=== PATIENT | female | born 1965 | race African-American/Black ===

== ENCOUNTER 2017-12-20 14:11 | Emergency (ER) | payer OTHER ==
[2017-12-20 14:18] VITALS: BP 126/84; PULSE 100; TEMP 98.2; BMI 34.7
--- NOTE | 2017-12-20 14:41 | PDOC ---
History of Present Illness - General Chief Complaint: Injury Stated Complaint: Injury - History of Present Illness Initial Comments: 52-year-old female with a past medical history significant for diabetes hypertension dyslipidemia and asthma presents for evaluation of atraumatic foot pain times one day. She denies any other associated symptoms. Her pain is exacerbated with weightbearing relieved with rest. She is unsure what happened. 12/20/17 14:40 Past History - Past Medical History Allergies/Adverse Reactions: Allergies Allergy/AdvReac Type Severity Reaction Status Date / Time amoxicillin trihydrate Allergy Intermediate Swelling Verified 12/20/17 14:18 [From Augmentin] potassium clavulanate Allergy Intermediate Swelling Verified 12/20/17 14:18 [From Augmentin] Home Medications: Ambulatory Orders Simvastatin [Zocor -] 20 mg PO HS 01/29/14 Cholecalciferol (Vitamin D3) [Vitamin D3] 2,000 unit PO DAILY 06/17/14 Salmeterol/Fluticasone [Advair 100Mcg/50Mcg -] 1 inh PO BID 06/17/14 Furosemide [Lasix -] 20 mg PO DAILY 08/08/14 Carvedilol [Coreg -] 6.25 mg PO BID 08/16/14 Insulin Glargine,Hum.rec.anlog [Lantus Solostar PEN (NF)] 25 units SQ HS Quetiapine Fumarate [Seroquel] 100 tab PO BID 05/25/17 Doxycycline Hyclate [Vibramycin -] 100 mg PO BID #14 cap 11/30/17 Sodium Chloride Nasal [place] [[place] Nasal [place]] 2 spray NS BID #100 spraybtl 11/30/17 Asthma: Yes Cancer: No Cardiac Disorders: Yes (reduced ejection fraction of 23%) CVA: No COPD: No CHF: Yes (with pulmonary HTN) Diabetes: Yes Disorders: No HTN: Yes Hypercholesterolemia: Yes Liver Disease: No Seizures: No Thyroid Disease: No - Surgical History Cardiac Surgery: No Cholecystectomy: Yes Neurologic Surgery: No Orthopedic Surgery: Yes (left total knee replacement 1996) - Family Disease History Family Disease History: Diabetes: Mother - Immunization History Immunization Up to Date: Yes - Suicide/Smoking/Psychosocial Hx Smoking Status: No Smoking History: Never smoked Have you smoked in the past 12 months: No Number of Cigarettes Smoked Daily: 5 Information on smoking cessation initiated: No 'Breaking Loose' booklet given: 12/23/13 Hx Alcohol Use: No Drug/Substance Use Hx: No Substance Use Type: Alcohol, Cocaine, Marijuana Hx Substance Use Treatment: Yes (detox, [facility]) Review of Systems - Review of Systems Musculoskeletal: Yes: See HPI, Joint Pain All Other Systems: Reviewed and Negative *Physical Exam - Vital Signs Last Vital Signs Temp Pulse Resp BP Pulse Ox 98.2 F 100 H 16 126/84 100 12/20/17 14:16 12/20/17 14:16 12/20/17 14:16 12/20/17 14:16 12/20/17 14:16 - Physical Exam Comments: Left foot skin color and temperature are normal she has decreased ankle range of motion. No tenderness about the proximal fibula calf or thigh all soft and nontender. No tenderness along the fibulas distal course. Nonpainful ankle range of motion. No tenderness about the medial lateral malleolus navicular or fifth metatarsal. She has mild swelling and exquisite tenderness about the area of the plantar fascia. She is neurovascularly intact without any gross sensorimotor deficits. 12/20/17 14:40 ED Treatment Course - RADIOLOGY Radiology Studies Ordered: Category Date Time Status FOOT-LEFT [RAD] Stat Radiology 12/20/17 14:34 Ordered Medical Decision Making - Medical Decision Making I suspect the plantar fascia rupture, hard sole shoe follow-up with orthopedic surgery. Weight-bear as tolerated with use of crutches. X-ray was normal today 12/20/17 14:41 *DC/Admit/Observation/Transfer Diagnosis at time of Disposition: Plantar fascia rupture - Discharge Dispostion Disposition: HOME Condition at time of disposition: Stable Decision to Admit order: No - Referrals Referrals: Arian Mcneill MD [Staff Physician] - - Patient Instructions Additional Instructions: Follow-up with orthopedic surgery in 2-3 days for further evaluation and treatment options. Return to the emergency room should symptoms worsen or go unresolved. May take Tylenol for pain. He may weight-bear as tolerated with a hard soled shoe and crutches. - Post Discharge Activity
== END 2017-12-20 15:17 | disposition home or self-care (01) ==
LOC: JERFT 14:11
DX: S86.011D Strain of right Achilles tendon, subsequent encounter (principal); I10 Essential (primary) hypertension; I50.9 Heart failure, unspecified; E11.9 Type 2 diabetes mellitus without complications; Z79.4 Long term (current) use of insulin; E78.00 Pure hypercholesterolemia, unspecified; Z87.09 Personal history of other diseases of the respiratory system
CPT/HCPCS: 73630-TC-LT; 99281-25

== ENCOUNTER 2018-01-01 15:15 | Emergency (ER) | payer OTHER ==
[2018-01-01 15:24] VITALS: BP 156/111; PULSE 88; TEMP 98.6; BMI 33.4
--- NOTE | 2018-01-01 16:17 | PDOC ---
History of Present Illness - General Chief Complaint: Injury Stated Complaint: INJURY Time Seen by Provider: 01/01/18 15:39 History Source: Patient Exam Limitations: No Limitations - History of Present Illness Initial Comments: 01/01/18 16:12 52 yr female with right ankle injury yesterday fell into a hole x3 . Pt injured ankle has swelling and pain. Occurred: reports: yesterday Severity: Yes: moderate Lower Extremity Pain Location: right: ankle Past History - Past Medical History Allergies/Adverse Reactions: Allergies Allergy/AdvReac Type Severity Reaction Status Date / Time amoxicillin trihydrate Allergy Intermediate Swelling Verified 01/01/18 15:24 [From Augmentin] potassium clavulanate Allergy Intermediate Swelling Verified 01/01/18 15:24 [From Augmentin] Home Medications: Ambulatory Orders Simvastatin [Zocor -] 20 mg PO HS 01/29/14 Cholecalciferol (Vitamin D3) [Vitamin D3] 2,000 unit PO DAILY 06/17/14 Salmeterol/Fluticasone [Advair 100Mcg/50Mcg -] 1 inh PO BID 06/17/14 Furosemide [Lasix -] 20 mg PO DAILY 08/08/14 Carvedilol [Coreg -] 6.25 mg PO BID 08/16/14 Insulin Glargine,Hum.rec.anlog [Lantus Solostar PEN (NF)] 25 units SQ HS Quetiapine Fumarate [Seroquel] 100 tab PO BID 05/25/17 Doxycycline Hyclate [Vibramycin -] 100 mg PO BID #14 cap 11/30/17 Sodium Chloride Nasal [place] [[place]] 2 spray NS BID #100 spraybtl 11/30/17 Oxycodone HCl/Acetaminophen [Percocet 5-325 mg Tablet] 1 - 2 tab PO Q6H PRN #12 tab MDD 8 01/01/18 Asthma: Yes Cancer: No Cardiac Disorders: Yes (reduced ejection fraction of 23%) CVA: No COPD: No CHF: Yes (with pulmonary HTN) Diabetes: Yes Disorders: No HTN: Yes Hypercholesterolemia: Yes Liver Disease: No Seizures: No Thyroid Disease: No Other medical history: neuropathy - Surgical History Cardiac Surgery: No Cholecystectomy: Yes Neurologic Surgery: No Orthopedic Surgery: Yes (left total knee replacement 1996) - Family Disease History Family Disease History: Diabetes: Mother - Immunization History Immunization Up to Date: Yes - Suicide/Smoking/Psychosocial Hx Smoking Status: No Smoking History: Current every day smoker Have you smoked in the past 12 months: No Number of Cigarettes Smoked Daily: 10 Information on smoking cessation initiated: No 'Breaking Loose' booklet given: 04/09/13 Hx Alcohol Use: No Drug/Substance Use Hx: No Substance Use Type: Alcohol, Cocaine, Marijuana Hx Substance Use Treatment: Yes (detox, [facility]) Review of Systems - Review of Systems Able to Perform ROS?: Yes Is the patient limited [place] proficient: No Constitutional: No: Symptoms Reported Musculoskeletal: Yes: Symptoms Reported *Physical Exam - Vital Signs Last Vital Signs Temp Pulse Resp BP Pulse Ox 98.6 F 88 18 156/111 99 01/01/18 15:21 01/01/18 15:21 01/01/18 15:21 01/01/18 15:21 01/01/18 15:21 - Physical Exam General Appearance: Yes: Nourished, Appropriately Dressed HEENT: positive: EOMI, FLACO Extremity: positive: Normal Capillary Refill, Tender, Swelling, Erythema ( ttp right lateral maleouls to lateral foot ) Integumentary: positive: Normal Color, Dry, Warm Neurologic: positive: non acoustic operator II-XII NML intact, Fully Oriented, Alert, Normal Mood/ Affect, Normal Response, Motor Strength 08/20 ED Treatment Course - RADIOLOGY Radiology Studies Ordered: Category Date Time Status ANKLE & FOOT-RIGHT* [RAD] Stat Radiology 01/01/18 15:39 Taken Medical Decision Making - Medical Decision Making 01/01/18 16:14 cc: right foot andkle pain after twisting it yesterday stepping into a hole xray is negative soft tissue swelling noted air cast placed *DC/Admit/Observation/Transfer Diagnosis at time of Disposition: High ankle sprain Qualifiers: Encounter type: initial encounter Laterality: right Qualified Code(s): S93.431A - Sprain of tibiofibular ligament of right ankle, initial encounter - Discharge Dispostion Disposition: HOME Condition at time of disposition: Good - Prescriptions Prescriptions: Oxycodone HCl/Acetaminophen [Percocet 5-325 mg Tablet] 1 - 2 tab PO Q6H PRN #12 tab MDD 8 PRN Reason: Pain Level 7 - 10 - Referrals Referrals: Alfonso Burks MD [Staff Physician] - Edelson,Shaun W, MD [Staff Physician] - - Patient Instructions - Post Discharge Activity
== END 2018-01-01 16:32 | disposition home or self-care (01) ==
LOC: JERFT 15:15
DX: S93.431A Sprain of tibiofibular ligament of right ankle, initial encounter (principal); X58.XXXA Exposure to other specified factors, initial encounter; Y93.89 Activity, other specified; Y92.9 Unspecified place or not applicable; F17.210 Nicotine dependence, cigarettes, uncomplicated; J45.909 Unspecified asthma, uncomplicated; E11.9 Type 2 diabetes mellitus without complications; E78.00 Pure hypercholesterolemia, unspecified; I50.9 Heart failure, unspecified
CPT/HCPCS: 73610-TC-RT-FY; 73630-TC-RT-FY; 99281-25

== ENCOUNTER 2018-01-05 16:55 | Emergency (ER) | payer OTHER ==
--- NOTE | 2018-01-05 17:14 | PDOC ---
Rapid Medical Evaluation Time Seen by Provider: 01/05/18 17:12 Medical Evaluation: Allergies Allergy/AdvReac Type Severity Reaction Status Date / Time amoxicillin trihydrate Allergy Intermediate Swelling Verified 01/01/18 15:24 [From Augmentin] potassium clavulanate Allergy Intermediate Swelling Verified 01/01/18 15:24 [From Augmentin] 01/05/18 17:12 I have performed a brief in-person evaluation of this patient. The patient presents with a chief complaint of: frequent falls. Requesting pain medication for right foot injury treated in hospital Tuesday. Pertinent physical exam findings are NAD in wheelchair right foot with swelling, cap refill wnl I have ordered the following: The patient will proceed to Ed for further evaluation Discharge Disposition - Referrals Referrals: Fili Espinoza MD [Primary Care Provider] - - Patient Instructions - Post Discharge Activity
[2018-01-05 17:19] VITALS: BP 109/73; PULSE 100; TEMP 98.8; BMI 33.4
--- NOTE | 2018-01-05 19:14 | PDOC ---
History of Present Illness - General Chief Complaint: Pain, Acute Stated Complaint: Edema Time Seen by Provider: 01/05/18 17:12 - History of Present Illness Initial Comments: 01/05/18 20:10 The patient is a 52 year old female with a history of DM, HTN, HLD, CHF who presents for evaluation of right foot and ankle pain. The patient reports that 4 days ago she twisted her right foot and experienced a fall prompting her to present to the ED at that time. She underwent X-ray imaging that demonstrated a possible old 1st metatarsal fracture, but no acute fracture and the patient was discharged with primary care and ortho follow up. The patient reports continued pain since that time had was evaluated by her podietrist and primary care provider who sent her back to the ED for further evaluation given her worsening symptoms. The patient reports worsening pain with ambulation as well but otherwise denies fevers, chills, SOB, chest pain, nausea, vomiting, abdominal pain, or changes with urination or bowel movements. Past History - Past Medical History Allergies/Adverse Reactions: Allergies Allergy/AdvReac Type Severity Reaction Status Date / Time amoxicillin trihydrate Allergy Intermediate Swelling Verified 01/05/18 17:13 [From Augmentin] potassium clavulanate Allergy Intermediate Swelling Verified 01/05/18 17:13 [From Augmentin] Home Medications: Ambulatory Orders Simvastatin [Zocor -] 20 mg PO HS 01/29/14 Cholecalciferol (Vitamin D3) [Vitamin D3] 2,000 unit PO DAILY 06/17/14 Salmeterol/Fluticasone [Advair 100Mcg/50Mcg -] 1 inh PO BID 06/17/14 Furosemide [Lasix -] 20 mg PO DAILY 08/08/14 Carvedilol [Coreg -] 6.25 mg PO BID 08/16/14 Insulin Glargine,Hum.rec.anlog [Lantus Solostar PEN (NF)] 25 units SQ HS Quetiapine Fumarate [Seroquel] 100 tab PO BID 05/25/17 Sodium Chloride Nasal [place] [[place] Nasal [place]] 2 spray NS BID #100 spraybtl 11/30/17 Oxycodone HCl/Acetaminophen [Percocet 5-325 mg Tablet] 1 - 2 tab PO Q6H PRN #12 tab MDD 8 01/01/18 Asthma: Yes Cancer: No Cardiac Disorders: Yes (reduced ejection fraction of 23%) CVA: No COPD: No CHF: Yes (with pulmonary HTN) Diabetes: Yes Disorders: No HTN: Yes Hypercholesterolemia: Yes Liver Disease: No Seizures: No Thyroid Disease: No - Surgical History Cardiac Surgery: No Cholecystectomy: Yes Neurologic Surgery: No Orthopedic Surgery: Yes (left total knee replacement 1996) - Family Disease History Family Disease History: Diabetes: Mother - Immunization History Immunization Up to Date: Yes - Suicide/Smoking/Psychosocial Hx Smoking Status: No Smoking History: Current every day smoker Have you smoked in the past 12 months: No Number of Cigarettes Smoked Daily: 10 Information on smoking cessation initiated: No 'Breaking Loose' booklet given: 04/09/13 Hx Alcohol Use: No Drug/Substance Use Hx: No Substance Use Type: Alcohol, Cocaine, Marijuana Hx Substance Use Treatment: Yes (detox, [facility]) Review of Systems - Review of Systems Comments:: 01/05/18 20:46 Constitutional: No fevers, chills, fatigue, malaise HEENT: No Rhinorrhea, nasal congestion, visual changes Cardiovascular: No chest pain, syncope, palpitations, lightheadedness Respiratory: No Cough, SOB, Hemoptysis, Gastrointestinal: No Abdominal pain, Nausea, Vomiting, Constipation, Diarrhea, Melena Genitourinary: No Dysuria, Frequency, Urgency, Hesitancy, Hematuria, Flank pain Musculoskeletal: Right foot and ankle pain and swelling. No Myalgia, arthralgia Skin: No rashes, itching, bruising, pallor Neurologic: No Headache, Dizziness, Numbness, Weakness, or Tingling Psychiatric: No Hallucinations. No SI or HI *Physical Exam - Vital Signs Last Vital Signs Temp Pulse Resp BP Pulse Ox 98.8 F 100 H 20 109/73 99 01/05/18 17:17 01/05/18 17:17 01/05/18 17:17 01/05/18 17:17 01/05/18 17:17 - Physical Exam Comments: 01/05/18 20:46 General Appearance: Nourished. No Apparent Distress HEENT: No Pharyngeal Erythema, Tonsillar Exudate, Tonsillar Erythema Neck: No Cervical Lymphadenopathy Respiratory/Chest: Lungs Clear, Normal Breath Sounds. No Crackles, Rales, Rhonchi, Wheezing Cardiovascular: Regular Rhythm, Regular Rate. No Murmur, Gallops, Rubs Gastrointestinal/Abdominal: Normal Bowel Sounds, Soft. No Guarding, Rebound, Tenderness Musculoskeletal: No CVA Tenderness Extremity: Significant Edema and swelling to the dorsum of the foot and lateral aspect of the ankle with tenderness to palpation and notable warmth. Palpable posterior tibial pulse noted. Normal Capillary Refill Integumentary: Normal Color, Dry, Warm Neurologic: Fully Oriented, Alert, Normal Mood/Affect, Normal Response, ED Treatment Course - LABORATORY CBC & Chemistry Diagram: 01/05/18 20:00 01/05/18 20:00 Medical Decision Making - Medical Decision Making 01/05/18 20:51 The patient is a 52 year old female with a history of DM, HTN, HLD, CHF who presents for evaluation of right foot and ankle pain. Differential includes but is not limited to: Lis-franc Fracture, Occult Fracture, ligamentous injury, Infectious, Metabolic Derangement. Given the patient's history and physical exam, we will obtain a cbc, cmp, coags, and lower extremity CT to evaluate further. We will treat the patient's pain with toradol and continue to monitor and reassess while here in the ED. 01/05/18 21:59 CBC, coags are unremarkable. CMP demonstrates an elevated glucose to 400s. We will treat with 10 units of insulin. The patient wishes to leave AMA prior to the completion of her work up. We discussed the risks of leaving AMA including but not limited to worsening pain, permanent disability, and the patient continued to wish to leave AMA. We discussed the benefits of further work up and possible admission and the patient continued to wish to leave AMA. The patient stated that she would return to the ED tomorrow to be re-evaluated. The patient signed the AMA form. *DC/Admit/Observation/Transfer Diagnosis at time of Disposition: Foot pain, right - Discharge Dispostion Disposition: AGAINST MEDICAL ADVICE Condition at time of disposition: Stable - Referrals Referrals: Fili Espinoza MD [Primary Care Provider] - Alfonso Burks MD [Staff Physician] - - Patient Instructions Printed Discharge Instructions: DI for Foot Pain Additional Instructions: Please return to the ER if you experience concerning or worsening symptoms including worsening fevers, chills or pain. Your lab results were normal here in the ER although your blood sugar was very elevated. Please call to schedule a follow up appointment with your primary care provider and our orthopedic surgeon within 1-2 days to discuss your ER visit and further management of your symptoms. - Post Discharge Activity
--- NOTE | 2018-01-05 20:16 | PDOC ---
Attending Attestation - Resident Resident Name: Fili Wong - ED Attending Attestation I have performed the following: I have examined & evaluated the patient, The case was reviewed & discussed with the resident, I agree w/resident's findings & plan, Exceptions are as noted - HPI HPI: 01/05/18 20:16 The patient is a 52 year old female with a significant past medical history of HTN, HLD, CHF, and DM who presents to the ER with worsening pain from a right ankle injury she sustained on 12/31/17. Patient had twisted her right foot and fell on 12/31 and was seen the following day at this ER. Patient had a foot xray at that time which showed an old first metatarsal fracture. Patient has followed up with a senior technical writer at [facility], who told her the ligaments were messed up, but no further imaging was done. Patient was sent in by her PCP to the ER due to the worsening pain to the right ankle. Patient is taking the percocets that were prescribed to her with minimal relief. Patient reports difficulty walking and bearing weight on the right foot secondary to right ankle pain. Pt states her AIC was last 10. The patient denies numbness/tingling/or weakness to her extremities. Allergies: NKA Past surgical history: None reported. Social history: No reported alcohol, drug, or cigarette use. - Physicial Exam PE: 01/05/18 20:04 GENERAL: Awake, alert, and fully oriented, in no acute distress HEAD: No signs of trauma EYES: PERRLA, EOMI, sclera anicteric, conjunctiva clear ENT: Moist mucosa LUNGS: Breath sounds equal, clear to auscultation bilaterally. No wheezes, and no crackles HEART: Regular rate and rhythm, normal S1 and S2, no murmurs, rubs or gallops ABDOMEN: Soft, nontender, normoactive bowel sounds. No guarding, no rebound. No masses EXTREMITIES: R ankle with edema over the lateral malleolus and dorsum of the foot. +ttp over the lateral malleolus. Foot slightly deformed in inversion. DP pulse. Foot is WWP. Normal range of motion, no edema. No clubbing or cyanosis. No cords, erythema, or tenderness NEUROLOGICAL: Normal speech, cranial nerves intact, 5/5 strength in all 4 extremities, normal sensation to light touch in all 4 extremities SKIN: Erythema to the R lateral malleolus. Otherwise, warm, Dry, normal turgor, no rashes or lesions noted. - Medical Decision Making 01/05/18 20:18 52yo F with MMP including DM presents to the ED with worsening R ankle pain after injury on 12/31. Vitals wnl. Exam with edema and deformity of ankle. HbA1C of 10 concerning for possible charcot foot. Pt likely has significant ligamentous damage. Will obtain CT of the foot/ankle for further eval, control pain, check labs and reassess. Pt wanted to leave as she has to take her son to school in the AM, but we discussed the importance of a CT for further evaluation and she agrees to stay for now. 01/06/18 00:54 Patient requesting discharge prior to CT scan read. States she has to take her son to school in the morning and cannot stay minute longer. The patient is clinically sober, free from distracting injury, appears to have intact insight and judgment and reason and in my opinion has the capacity to make decisions. The patient presents with worsening foot pain. I have explained that I am concerned that this may represent an unstable foot fracture or a foot infection; she has verbalized an understanding of my concerns. I have told the patient that if she leaves and has and unstable foot fracture or infection, she could get much worse, could become critically ill, and could possibly become disabled or . I have offered to give the patient more pain medication. I have asked them to stay in the hospital for ortho consultation. I have discussed these concerns with the patients daughter who is at the bedside and she is unable to convince her to stay for further evaluation. She is unwilling to stay overnight for monitoring. She is refusing any further care and is leaving against medical advice. I am unable to convince the patient to stay, I have asked her to return as soon as possible to complete their evaluation. I have answered all their questions.
[2018-01-05] MEDS ORDERED: traMADol HCL 50 MG TABLET PO ONE (20:18)
[2018-01-05] MEDS ORDERED: traMADol HCL 50 MG TABLET ONE (20:23)
[2018-01-05 20:24] LABS: BASO % 1.4 % (0-2.0); EOS % 2.3 % (0-4.5); HEMATOCRIT 41.3 % (32.4-45.2); HEMOGLOBIN 13.6 GM/dL (10.7-15.3); LYMPH % 16.6 % (8-40); MCH 30.5 pg (25.7-33.7); MCHC 32.8 g/dl (32.0-36.0); MEAN CELL VOLUME 92.8 fl (80-96); MEAN PLT VOLUME 10.3 fl (7.5-11.1); MONO % 8.2 % (3.8-10.2); NEUT % 71.5 % (42.8-82.8); PLATELET COUNT 207 K/MM3 (134-434); RBC 4.45 M/mm3 (3.60-5.2); RDW 13.4 % (11.6-15.6); WHITE BLOOD COUNT 7.9 K/mm3 (4.0-10.0)
[2018-01-05] MEDS ORDERED: KETOROLAC TROMETHAMINE 15 MG/ML VIAL IVPUSH ONE (20:24)
[2018-01-05 20:39] LABS: INR 0.88 (0.83-1.09); PROTHROMBIN TIME (PATIENT) 9.9 SEC (9.7-13.0)
[2018-01-05 20:41] LABS: ACTIVATED PTT 38.2 SECONDS (25.2-36.5)
[2018-01-05] MEDS ORDERED: KETOROLAC TROMETHAMINE 15 MG/ML VIAL ONE (20:48)
[2018-01-05 21:16] LABS: ALBUMIN 3.7 g/dl (3.4-5.0); ALK PHOS 105 U/L (45-117); ANION GAP 9 MMOL/L (8-16); BILIRUBIN,TOTAL 0.6 mg/dL (0.2-1); BLOOD UREA NITROGEN 19 mg/dL (7-18); CALCIUM 10.5 mg/dL (8.5-10.1); CHLORIDE 99 mmol/L (98-107); CO2 26 mmol/L (21-32); CREATININE 1.1 mg/dL (0.55-1.3); POTASSIUM 4.7 mmol/L (3.5-5.1); SGOT/AST 20 U/L (15-37); SGPT/ALT 25 U/L (13-61); SODIUM 134 mmol/L (136-145); TOT PROT 7.4 g/dl (6.4-8.2)
[2018-01-05 21:20] LABS: GLUCOSE,RANDOM 497 mg/dL (74-106)
[2018-01-05] MEDS ORDERED: INSULIN REGULAR HUMAN 100 UNITS/ML *VIAL SQ ONE (21:51)
[2018-01-05] MEDS ORDERED: INSULIN (NOVOLOG) ASPART 100 UNITS/ML 10ML VIAL ONE (21:57)
== END 2018-01-05 23:00 | disposition left against medical advice (07) ==
LOC: JER 16:55
PROC: 3E013VG Introduction of Insulin into Subcutaneous Tissue, Percutaneous Approach (ICD-10-PCS; principal; 2018-01-05)
DX: M25.571 Pain in right ankle and joints of right foot (principal); M79.671 Pain in right foot; I11.0 Hypertensive heart disease with heart failure; I50.9 Heart failure, unspecified; F17.210 Nicotine dependence, cigarettes, uncomplicated; I27.20 Pulmonary hypertension, unspecified; E11.9 Type 2 diabetes mellitus without complications; Z79.4 Long term (current) use of insulin; E78.5 Hyperlipidemia, unspecified; Z88.1 Allergy status to other antibiotic agents; Z96.652 Presence of left artificial knee joint
CPT/HCPCS: 36415; 73700-TC-RT; 80053; 85025; 85610; 85730; 99282-25

== ENCOUNTER 2018-01-07 16:48 | Emergency (ER) | payer OTHER ==
[2018-01-07 17:28] VITALS: BMI 30.5
--- NOTE | 2018-01-07 19:17 | PDOC ---
History of Present Illness - General Chief Complaint: Wound Stated Complaint: RT FOOT PAIN Time Seen by Provider: 01/07/18 18:12 History Source: Patient Exam Limitations: No Limitations - History of Present Illness Initial Comments: 01/07/18 18:59 Ms. Orr is a 52 yo F with a hx of HTN, HLD, CHF, IDDM, and asthma who presents to the emergency department with right ankle pain. She was seen 2 days ago for her right ankle pain and left AMA before the CT was read due to taking her son to school. She states that her pain in the right ankle has increased as well as the swelling. She uses a walker and per the patient is now dragging her foot. Per the patient, she is followed by Dr. May of [facility] who advised her to be admitted. Currently, the patient endorses feeling hot, but denies the following: chills, recent visual changes, nausea, vomiting, chest pain, SOB, abdominal pain, dysuria, hematuria, leg swelling and pain. Past History - Past Medical History Allergies/Adverse Reactions: Allergies Allergy/AdvReac Type Severity Reaction Status Date / Time amoxicillin trihydrate Allergy Intermediate Swelling Verified 01/07/18 17:17 [From Augmentin] potassium clavulanate Allergy Intermediate Swelling Verified 01/07/18 17:17 [From Augmentin] Home Medications: Ambulatory Orders Simvastatin [Zocor -] 20 mg PO HS 01/29/14 Salmeterol/Fluticasone [Advair 100Mcg/50Mcg -] 1 inh PO BID 06/17/14 Furosemide [Lasix -] 20 mg PO BID 08/08/14 Insulin Glargine,Hum.rec.anlog [Lantus Solostar PEN (NF)] 25 units SQ HS Sodium Chloride Nasal [place] [[place] Nasal [place]] 2 spray NS BID #100 spraybtl 11/30/17 Albuterol 0.083% Nebulizer Gabriella [Ventolin 0.083%] 1 neb NEB Q4H 01/07/18 Amlodipine Bes/Olmesartan Med [Kendra 10-40 mg Tablet] 1 each PO DAILY 01/07/18 Amlodipine Besylate/Benazepril [Lotrel 5-40 mg Capsule] 1 each PO DAILY Ammonium Lactate Cream [Lac-Hydrin 12% *Cream*] 1 applic TP BID 01/07/18 Aspirin [Ecotrin] 81 mg PO DAILY 01/07/18 Clindamycin [Cleocin -] 450 mg PO TID #21 capsule 01/07/18 Gabapentin 300 mg PO TID 01/07/18 Hydrochlorothiazide 50 mg PO DAILY 01/07/18 Ibuprofen [Motrin -] 600 mg PO QID PRN #24 tablet 01/07/18 Insulin Aspart [Novolog] 0 unit SQ BID 01/07/18 Labetalol HCl 100 mg PO BID 01/07/18 Leg Brace [Ankle Brace] 1 each MC ONCE #1 each 01/07/18 Loratadine [Claritin] 10 mg PO DAILY 01/07/18 Asthma: Yes Cancer: No Cardiac Disorders: Yes (reduced ejection fraction of 23%) CVA: No COPD: No CHF: Yes (with pulmonary HTN) Diabetes: Yes Disorders: No HTN: Yes Hypercholesterolemia: Yes Liver Disease: No Seizures: No Thyroid Disease: No - Surgical History Cardiac Surgery: No Cholecystectomy: Yes Neurologic Surgery: No Orthopedic Surgery: Yes (left total knee replacement 1996) - Family Disease History Family Disease History: Diabetes: Mother - Immunization History Immunization Up to Date: Yes - Suicide/Smoking/Psychosocial Hx Smoking Status: No Smoking History: Current some day smoker Have you smoked in the past 12 months: No Number of Cigarettes Smoked Daily: 10 Information on smoking cessation initiated: No 'Breaking Loose' booklet given: 04/09/13 Hx Alcohol Use: No Drug/Substance Use Hx: No Substance Use Type: Alcohol, Cocaine, Marijuana Hx Substance Use Treatment: Yes (detox, [facility]) Review of Systems - Review of Systems Able to Perform ROS?: Yes Is the patient limited Divehi proficient: No Constitutional: Yes: Fever. No: Chills, Diaphoresis, Unintentional Wgt. Loss HEENTM: No: Eye Pain, Recent change in vision, Ear Pain, Nose Pain, Throat Pain , Mouth Pain Respiratory: No: Cough, Shortness of Breath, SOB at Rest Cardiac (ROS): No: Chest Pain, Edema, Lightheadedness, Palpitations, Chest Tightness ABD/GI: No: Constipated, Diarrhea, Nausea, Poor Fluid Intake, Rectal Bleeding, Vomiting, Tarry Stools : No: Burning, Dysuria, Flank Pain, Hematuria Musculoskeletal: Yes: Joint Pain (right ankle), Joint Swelling (ankle right). No: Back Pain, Neck Pain Integumentary: No: Rash Neurological: No: Headache, Numbness, Seizure, Tingling, Weakness, Unsteady Gait , Dizziness Psychiatric: No: Stressors Endocrine: No: Unexplained Weight Loss Hematologic/Lymphatic: No: Anemia *Physical Exam - Vital Signs Last Vital Signs Temp Pulse Resp BP Pulse Ox 99.1 F 94 H 20 122/83 99 01/07/18 17:17 01/07/18 17:17 01/07/18 17:17 01/07/18 17:17 01/07/18 17:17 - Physical Exam General Appearance: Yes: Nourished, Appropriately Dressed HEENT: positive: EOMI, FLACO, Normal Voice, Symmetrical Neck: positive: Trachea midline. negative: Lymphadenopathy (R), Lymphadenopathy (L) Respiratory/Chest: positive: Lungs Clear, Normal Breath Sounds. negative: Chest Tender, Respiratory Distress, Accessory Muscle Use Cardiovascular: positive: Regular Rhythm, Regular Rate, S1, S2. negative: Systolic Murmur Gastrointestinal/Abdominal: positive: Normal Bowel Sounds. negative: Tender Lymphatic: negative: Adenopathy Musculoskeletal: positive: Normal Inspection. negative: CVA Tenderness Extremity: positive: Normal Capillary Refill, Tender (right ankle), Pedal Edema , Swelling (right ankle), Erythema, Other (right ankle is swollen. right limited ROM of dorsiflexion and plantar flexion due to pain. right erythema present and warm to the touch. dorsalis pedis pulse present bilaterally. point of maximal swelling on right ankle on the lateral malleolus. no red streaks on the right ankle. intact sensations bilaterally.). negative: Cyanosis, Delayed Capillary Refill, Calf Tenderness Integumentary: positive: Normal Color, Dry, Warm Neurologic: positive: orthopaedic physician assistant II-XII NML intact, Fully Oriented, Alert, Normal Mood/ Affect, Normal Response, Motor Strength 5/5 ED Treatment Course - LABORATORY CBC & Chemistry Diagram: 01/07/18 18:50 01/07/18 18:50 Medical Decision Making - Medical Decision Making 01/07/18 23:54 Ms. Orr is a 52 yo F with a hx of HTN, HLD, CHF, IDDM, and asthma who presents to the emergency department with right ankle pain. ddx: cellulitis, septic arthritis, ankle fracture, ankle ligament tear (sprain). Initial vitals: Initial Vital Signs Temp Pulse Resp BP Pulse Ox 99.1 F 94 H 20 122/83 99 01/07/18 17:17 01/07/18 17:17 01/07/18 17:17 01/07/18 17:17 01/07/18 17:17 Work up: Laboratory Tests 01/07/18 01/07/18 01/07/18 18:50 18:50 18:50 WBC 5.7 RBC 4.56 Hgb 13.8 Hct 41.7 MCV 91.5 MCH 30.3 MCHC 33.1 RDW 13.3 Plt Count 263 D MPV 10.3 Absolute Neuts (auto) 3.4 Neutrophils % 60.4 Lymphocytes % 24.8 D Monocytes % 11.6 H Eosinophils % 2.8 Basophils % 0.4 Nucleated RBC % 0 ESR PT with INR 9.70 INR 0.86 PTT (Actin FS) 35.5 Sodium 137 Potassium 5.0 Chloride 103 Carbon Dioxide 27 Anion Gap 7 L BUN 18 Creatinine 0.8 Creat Clearance w eGFR > 60 Random Glucose 325 H* Lactic Acid Calcium 9.8 Total Bilirubin 0.4 AST 18 ALT 26 Alkaline Phosphatase 98 C-Reactive Protein Total Protein 7.7 Albumin 3.5 Anti-A Titer Blood Type Antibody Screen 01/07/18 01/07/18 01/07/18 18:50 18:50 18:50 WBC RBC Hgb Hct MCV MCH MCHC RDW Plt Count MPV Absolute Neuts (auto) Neutrophils % Lymphocytes % Monocytes % Eosinophils % Basophils % Nucleated RBC % ESR 54 H PT with INR INR PTT (Actin FS) Sodium Potassium Chloride Carbon Dioxide Anion Gap BUN Creatinine Creat Clearance w eGFR Random Glucose Lactic Acid 1.7 Calcium Total Bilirubin AST ALT Alkaline Phosphatase C-Reactive Protein Total Protein Albumin Anti-A Titer Cancelled Blood Type Cancelled Antibody Screen Cancelled 01/07/18 19:30 WBC RBC Hgb Hct MCV MCH MCHC RDW Plt Count MPV Absolute Neuts (auto) Neutrophils % Lymphocytes % Monocytes % Eosinophils % Basophils % Nucleated RBC % ESR PT with INR INR PTT (Actin FS) Sodium Potassium Chloride Carbon Dioxide Anion Gap BUN Creatinine Creat Clearance w eGFR Random Glucose Lactic Acid Calcium Total Bilirubin AST ALT Alkaline Phosphatase C-Reactive Protein 4.0 H Total Protein Albumin Anti-A Titer Blood Type Antibody Screen She initially presented 9/20 with right foot and ankle swelling however left AMA before the CT was read. Her CT was negative for fractures in the right ankle region. She is followed by Dr. May at [facility] and her PMD is Dr. Espinoza. Dr. Espinoza was concerned after seeing her this past tuesday that she may need IV abx and advised her to return to the ED. She was not on oral abx at her presentation. Based on her labs (lack of WBC) and clinical exam (afebrile), likely cellulitis vs septic arthritis. However, she was given return precautions to return to the emergency department in the event her symptoms worsen. Some concern with an elevated CRP and ESR. She agreed to the plan of the outpatient abx (clindamycin due to her allergy to amoxicillin) and to follow up with Dr. Espinoza on Tuesday. She was given a referral for orthopedics as well. At the time of discharge, she was able to ambulate with her walker. Her ankle was wrapped in an real bandage. Dispo: DC to home 01/07/18 23:59 *DC/Admit/Observation/Transfer Diagnosis at time of Disposition: Cellulitis Qualifiers: Site of cellulitis: unspecified site Qualified Code(s): L03.90 - Cellulitis, unspecified Ankle pain, right Qualifiers: Chronicity: unspecified Qualified Code(s): M25.571 - Pain in right ankle and joints of right foot - Discharge Dispostion Disposition: HOME Decision to Admit order: No - Prescriptions Prescriptions: Clindamycin [Cleocin -] 450 mg PO TID #21 capsule Ibuprofen [Motrin -] 600 mg PO QID PRN #24 tablet PRN Reason: Pain Leg Brace [Ankle Brace] 1 each MC ONCE #1 each - Referrals Referrals: Fili Espinoza MD [Non Staff, Medical] - Alfonso Burks MD [Staff Physician] - - Patient Instructions Additional Instructions: You have been evaluated in the emergency department for your right ankle swelling and pain. Based on our clinical exam and labs, we determined that this may be cellulitis, which is an infection of the skin. Please return either to our emergency department or to your primary medical physician in 2 days for wound check. You have been prescribed antibiotics to take on an outpatient basis. Please follow the antibiotics as prescribed this is very important. In addition, please follow up with the orthopedic doctor you have been referred to on your discharge papers. This is very important to do. Please do this within 24 -36 hours after your discharge. Please return to the emergency department if your symptoms worsen or if you have new concerning symptoms such as enlargement of the redness on your ankle, any streaking red lines, fevers, chills, and exquisite pain. Thank you. - Post Discharge Activity
[2018-01-07 19:29] LABS: BASO % 0.4 % (0-2.0); EOS % 2.8 % (0-4.5); HEMATOCRIT 41.7 % (32.4-45.2); HEMOGLOBIN 13.8 GM/dL (10.7-15.3); LYMPH % 24.8 % (8-40); MCH 30.3 pg (25.7-33.7); MCHC 33.1 g/dl (32.0-36.0); MEAN CELL VOLUME 91.5 fl (80-96); MEAN PLT VOLUME 10.3 fl (7.5-11.1); MONO % 11.6 % (3.8-10.2); NEUT % 60.4 % (42.8-82.8); PLATELET COUNT 263 K/MM3 (134-434); RBC 4.56 M/mm3 (3.60-5.2); RDW 13.3 % (11.6-15.6); WHITE BLOOD COUNT 5.7 K/mm3 (4.0-10.0)
[2018-01-07 19:41] LABS: INR 0.86 (0.83-1.09); PROTHROMBIN TIME (PATIENT) 9.7 SEC (9.7-13.0)
[2018-01-07 19:44] LABS: ACTIVATED PTT 35.5 SECONDS (25.2-36.5)
[2018-01-07 20:14] LABS: ALBUMIN 3.5 g/dl (3.4-5.0); ALK PHOS 98 U/L (45-117); ANION GAP 7 MMOL/L (8-16); BILIRUBIN,TOTAL 0.4 mg/dL (0.2-1); BLOOD UREA NITROGEN 18 mg/dL (7-18); CALCIUM 9.8 mg/dL (8.5-10.1); CHLORIDE 103 mmol/L (98-107); CO2 27 mmol/L (21-32); CREATININE 0.8 mg/dL (0.55-1.3); SGOT/AST 18 U/L (15-37); SGPT/ALT 26 U/L (13-61); SODIUM 137 mmol/L (136-145); TOT PROT 7.7 g/dl (6.4-8.2)
[2018-01-07 20:15] LABS: GLUCOSE,RANDOM 325 mg/dL (74-106)
--- NOTE | 2018-01-07 20:59 | PDOC ---
Attending Attestation - HPI HPI: 01/07/18 21:01 The patient is a 52 year old female, with a significant PMH of HTN, HLD, CHF, and DM, who presents to the emergency department for evaluation of worsening right ankle pain. The patient states she was evaluated 2 days ago here at [place] [facility] and had a CT performed which showed no acute fracture. The patient states her PCP was concerned over possibility of infection and advised the patient to come back to the ED. The patient states her right ankle has appeared more red and swollen recently. The patient states she has been able to ambulate with a walker. The patient reports she sustained the right ankle injury on . The patient states she follows with occupational therapy specialist Dr. May of [facility]. The patient states she has had subjective fevers at home but has not taken her temperature. The patient denies chest pain, shortness of breath, headache and dizziness. Denies chills, nausea, vomit, diarrhea and constipation. Denies dysuria, frequency, urgency and hematuria. Allergies: amoxicillin trihydrate, potassium clavulanate Past surgical history: None reported. Social history: No reported alcohol, drug, or cigarette use. - Physicial Exam PE: 01/07/18 21:02 Vitals: Triage vital signs reviewed General Appearance: No acute distress, well nourished, well developed Neck: Supple; No nuchal rigidity Chest Wall: Nontender Cardiac: Regular rate and rhythm, no murmurs, no rubs, no gallops Lungs: Clear to auscultation bilateral, good air movement bilaterally Abdomen: Soft, nondistended, normal bowel sounds, nontender to palpation Rectal: Exam deferred Extremities: +Right ankle warm to touch with slight erythema. No streaking or extension up the calf. Full range of motion to all extremities, no cyanosis or clubbing. Skin: Warm and dry, no rashes or lesions, no rash, no petechiae Neuro: AOX3; Cranial Nerves 2-12 grossly intact, Strength intact to all extremities, Sensation intact to all extremities Psych: Normal mood, normal affect <Cristian Montalvo - Last Filed: 01/07/18 21:13> - Resident Resident Name: Bradly Rice - ED Attending Attestation I have performed the following: I have examined & evaluated the patient, The case was reviewed & discussed with the resident, I agree w/resident's findings & plan, Exceptions are as noted - Medical Decision Making 01/07/18 20:58 52 years old with diabetes status post right lower extremity injury last week presented to the ED 2 days ago but did not stay. Her primary care provider was concerned for infection. Her right ankle is warm to touch with slight redness. There is no streaking or extension up the calf. Patient is afebrile with a normal white blood cell count there is a slight elevation in her ESR and CRP. She had a CAT scan of her ankle 2 days ago At this point history examination consistent with cellulitis less concerning for septic arthritis given no pain with passive range of motion and no breakdown of skin We'll treat with Clindamycin and have patient return to the ED or follow up with her primary care provider on Tuesday for a wound check She is instructed to return immediately if there is any extension of the redness streaking red lines or for any concerns. 01/08/18 02:35 <Bijan Lamb - Last Filed: 01/08/18 02:36> Attestations - Attestations 01/07/18 21:04 Documentation prepared by Cristian Montalvo, acting as medical device sales representative for Bijan Lamb MD. <Cristian Montalvo - Last Filed: 01/07/18 21:13>
[2018-01-07 21:14] VITALS: BP 135/89; PULSE 97; TEMP 97.1
[2018-01-07] MEDS ORDERED: CLINDAMYCIN HCL 150 MG CAPSULE (FP) PO ONE (21:19)
== END 2018-01-07 21:51 | disposition home or self-care (01) ==
LOC: JER 16:48
DX: L03.116 Cellulitis of left lower limb (principal); R26.89 Other abnormalities of gait and mobility; Z99.89 Dependence on other enabling machines and devices; I10 Essential (primary) hypertension; I50.9 Heart failure, unspecified; I27.20 Pulmonary hypertension, unspecified; E11.9 Type 2 diabetes mellitus without complications; Z79.4 Long term (current) use of insulin; E78.5 Hyperlipidemia, unspecified; J45.909 Unspecified asthma, uncomplicated; Z96.652 Presence of left artificial knee joint; Z88.8 Allergy status to other drugs, medicaments and biological substances
CPT/HCPCS: 36415; 80053; 83605; 85025; 85610; 85651; 85730; 86140; 87040; 99283-25

== ENCOUNTER 2018-01-09 18:15 | Emergency (ER) | payer OTHER ==
--- NOTE | 2018-01-09 18:30 | PDOC ---
Rapid Medical Evaluation Time Seen by Provider: 01/09/18 18:29 Medical Evaluation: Allergies Allergy/AdvReac Type Severity Reaction Status Date / Time amoxicillin trihydrate Allergy Intermediate Swelling Verified 01/07/18 17:17 [From Augmentin] potassium clavulanate Allergy Intermediate Swelling Verified 01/07/18 17:17 [From Augmentin] 01/09/18 18:29 The patient presents with a chief complaint of: foot redness/recheck I have performed a brief in-person evaluation of this patient. Pertinent physical exam findings: vss, stable I have ordered the following: provider to determine The patient will proceed to the ED for further evaluation. 01/09/18 18:35
[2018-01-09 18:33] VITALS: BP 135/88; PULSE 89; TEMP 98.9; BMI 35.6
[2018-01-09] MEDS ORDERED: IBUPROFEN 600 MG TABLET (FP) PO ONE (20:07)
--- NOTE | 2018-01-09 20:16 | PDOC ---
History of Present Illness - General Chief Complaint: Redness To Affected Area Stated Complaint: PAIN Time Seen by Provider: 01/09/18 18:29 - History of Present Illness Initial Comments: 01/09/18 20:12 52 year old female, with a significant PMH of HTN, HLD, CHF, and DM, who presents to the emergency department for a wound check on her Right ankle. She has been seen twice in the past week for the same injury. She was diagnosed with cellulitis and given clindamycin. She says she has been good about taking her meds and is only back in the ED bc she was instructed at her last visit to have her wound checked to make sure it is getting better. She reports no worsening of her symptoms. Her pain is reduced and she has not had fevers. She states "my ankle is finally getting better." She also says that the redness to the affected area has reduced and is significantly less than it was 2 days ago. Denies recent fevers, chills, or infections. Denies chest pain, SOB, difficulty breathing. Denies urinary or bowel complaints. Past History - Past Medical History Allergies/Adverse Reactions: Allergies Allergy/AdvReac Type Severity Reaction Status Date / Time amoxicillin trihydrate Allergy Intermediate Swelling Verified 01/09/18 18:31 [From Augmentin] potassium clavulanate Allergy Intermediate Swelling Verified 01/09/18 18:31 [From Augmentin] Home Medications: Ambulatory Orders Simvastatin [Zocor -] 20 mg PO HS 01/29/14 Salmeterol/Fluticasone [Advair 100Mcg/50Mcg -] 1 inh PO BID 06/17/14 Furosemide [Lasix -] 20 mg PO BID 08/08/14 Insulin Glargine,Hum.rec.anlog [Lantus Solostar PEN (NF)] 25 units SQ HS Sodium Chloride Nasal [place] [[place] Nasal [place]] 2 spray NS BID #100 spraybtl 11/30/17 Albuterol 0.083% Nebulizer Gabriella [Ventolin 0.083%] 1 neb NEB Q4H 01/07/18 Amlodipine Bes/Olmesartan Med [Kendra 10-40 mg Tablet] 1 each PO DAILY 01/07/18 Amlodipine Besylate/Benazepril [Lotrel 5-40 mg Capsule] 1 each PO DAILY Ammonium Lactate Cream [Lac-Hydrin 12% *Cream*] 1 applic TP BID 01/07/18 Aspirin [Ecotrin] 81 mg PO DAILY 01/07/18 Clindamycin [Cleocin -] 450 mg PO TID #21 capsule 01/07/18 Gabapentin 300 mg PO TID 01/07/18 Hydrochlorothiazide 50 mg PO DAILY 01/07/18 Ibuprofen [Motrin -] 600 mg PO QID PRN #24 tablet 01/07/18 Insulin Aspart [Novolog] 0 unit SQ BID 01/07/18 Labetalol HCl 100 mg PO BID 01/07/18 Leg Brace [Ankle Brace] 1 each MC ONCE #1 each 01/07/18 Loratadine [Claritin] 10 mg PO DAILY 01/07/18 Asthma: Yes Cancer: No Cardiac Disorders: Yes (reduced ejection fraction of 23%) CVA: No COPD: No CHF: Yes (with pulmonary HTN) Diabetes: Yes Disorders: No HTN: Yes Hypercholesterolemia: Yes Liver Disease: No Seizures: No Thyroid Disease: No - Surgical History Cardiac Surgery: No Cholecystectomy: Yes Neurologic Surgery: No Orthopedic Surgery: Yes (left total knee replacement 1996) - Family Disease History Family Disease History: Diabetes: Mother - Immunization History Immunization Up to Date: Yes - Suicide/Smoking/Psychosocial Hx Smoking Status: No Smoking History: Current some day smoker Have you smoked in the past 12 months: No Number of Cigarettes Smoked Daily: 10 Information on smoking cessation initiated: No 'Breaking Loose' booklet given: 04/09/13 Hx Alcohol Use: No Drug/Substance Use Hx: No Substance Use Type: Alcohol, Cocaine, Marijuana Hx Substance Use Treatment: Yes (detox, [facility]) Review of Systems - Review of Systems Comments:: 01/09/18 20:32 CONSTITUTIONAL: Absent: fever, chills, diaphoresis, generalized weakness, malaise, loss of appetite HEENT: Absent: rhinorrhea, nasal congestion, throat pain, throat swelling, difficulty swallowing, mouth swelling, ear pain, eye pain, visual Changes CARDIOVASCULAR: Absent: chest pain, syncope, palpitations, irregular heart rate, lightheadedness , peripheral edema RESPIRATORY: Absent: cough, shortness of breath, dyspnea with exertion, orthopnea, wheezing, stridor, hemoptysis GASTROINTESTINAL: Absent: abdominal pain, abdominal distension, nausea, vomiting, diarrhea, constipation, melena, hematochezia GENITOURINARY: Absent: dysuria, frequency, urgency, hesitancy, hematuria, flank pain, genital pain MUSCULOSKELETAL: Present: arthralgia, joint swelling. Absent: myalgia. SKIN: Absent: rash, itching, pallor HEMATOLOGIC/IMMUNOLOGIC: Absent: easy bleeding, easy bruising, lymphadenopathy, frequent infections ENDOCRINE: Absent: unexplained weight gain, unexplained weight loss, heat intolerance, cold intolerance NEUROLOGIC: Present: unsteady gait. Absent: headache, focal weakness or paresthesias, dizziness, seizure, mental status changes, bladder or bowel incontinence PSYCHIATRIC: Absent: anxiety, depression, suicidal or homicidal ideation, hallucinations. *Physical Exam - Vital Signs Last Vital Signs Temp Pulse Resp BP Pulse Ox 98.9 F 89 18 135/88 99 01/09/18 18:31 18 18:31 18 18:31 01/09/18 18:31 01/09/18 18:31 - Physical Exam Comments: 01/09/18 20:34 RIGHT ANKLE: 2+ pulses equal in both ankles. Normal and full sensation throughout both feet. Decreased strengh on extension and flexion in R ankle. The Ankle is erythematous and swollen. There is a marker line around the ankle which supposedly was the border of the infection 2 days ago. The erythema has decreased significantly. GENERAL: Well developed, well nourished. Awake and alert. No acute distress. HEENT: Normocephalic, atraumatic. PERRLA, EOMI. No conjunctival pallor. Sclera are non- icteric. Moist mucous membranes. Oropharynx is clear. NECK: Supple. Full ROM. No JVD. No thyromegaly. No lymphadenopathy. CARDIOVASCULAR: Regular rate and rhythm. No murmurs, rubs, or gallops. Distal pulses are 2+ and symmetric. PULMONARY: No evidence of respiratory distress. Lungs clear to auscultation bilaterally. No wheezing, rales or rhonchi. ABDOMINAL: Soft. Non-tender. Non-distended. No rebound or guarding. No organomegaly. Normoactive bowel sounds. MUSCULOSKELETAL Normal range of motion at all joints except R ankle. No bony deformities or tenderness. No CVA tenderness. EXTREMITIES: No cyanosis. No clubbing. No edema. No calf tenderness. SKIN: Warm and dry. Normal capillary refill. No rashes. No jaundice. NEUROLOGICAL: Alert, awake, appropriate. Cranial nerves 2-12 intact. Normal speech. PSYCHIATRIC: Cooperative. Good eye contact. Appropriate mood and affect. Medical Decision Making - Medical Decision Making 01/09/18 20:37 52 year old female, with a significant PMH of HTN, HLD, CHF, and DM, who presents to the emergency department for a wound check on her Right ankle. There is decreased erythema since her last visit. Patient reports improving symptoms. erythema does not appear to be spreading. She is neurovascularly in tact. Plan: RICE, ibuprofen, walking boot, DC. Strict return precautions discussed with patient. *DC/Admit/Observation/Transfer Diagnosis at time of Disposition: Ankle pain, right, Cellulitis - Discharge Dispostion Disposition: HOME Condition at time of disposition: Good Decision to Admit order: No - Referrals Referrals: Sheldon Aragon MD [Staff Physician] - - Patient Instructions Printed Discharge Instructions: DI for Cellulitis -- Adult, DI for Ankle Sprain Additional Instructions: You came into the ER today to have your wound checked. It does not appear to be spreading beyond the lines which were drawn with a marker around your ankle injury. Please take ibuprofen and tylenol as needed for pain control. Please remember to rest your leg as much as possible. ICE your leg once a day for around 20 to 30 minutes. Try to keep your leg elevated as much as possible. Please come back to the emergency room immediately if your pain worsens, you start vomiting, develop a bad fever, or have any other new or worsening concerns. Thank you for coming to the [facility] ER and we hope you feel better soon. Print Language: MALAWIAN - Post Discharge Activity
[2018-01-09] MEDS ORDERED: IBUPROFEN 400 MG TABLET (FP) PO ONE (20:25)
--- NOTE | 2018-01-09 20:32 | PDOC ---
Attending Attestation - Resident Resident Name: Cristian Marion - HPI HPI: 01/09/18 20:29 52 yo female with recent sprain and ankle cellulitis present s for wound check - Physicial Exam PE: 01/09/18 20:30 obese 52 yo female with bandaged ankjle head ncat neck supple lungs cta b/l cvs [id number] abd protuberant extremities right ankle has moderate lateral malleolus swelling,minimal erythema at this timw neuro axox3, moving all extremities,chronically uses a wheelchair because of h/o "weak" knees and frequent falls - Medical Decision Making 01/09/18 20:33 imp wound check improving rt ankle,plan to followup with her orthopedist
== END 2018-01-09 20:44 | disposition home or self-care (01) ==
LOC: JER 18:15
DX: L03.115 Cellulitis of right lower limb (principal); I50.9 Heart failure, unspecified; I10 Essential (primary) hypertension; I27.22 Pulmonary hypertension due to left heart disease; R93.1 Abnormal findings on diagnostic imaging of heart and coronary circulation; E78.5 Hyperlipidemia, unspecified
CPT/HCPCS: 99281-25

== ENCOUNTER 2018-09-19 18:31 | Emergency (ER) | payer OTHER | END 2018-09-19 20:15 | disposition home or self-care (01) | LOC: JERFT 18:31 ==

== ENCOUNTER 2018-09-28 08:34 | Inpatient (IN) | payer OTHER | END 2018-09-29 10:43 | disposition short-term general hospital (02) | LOC: J4W 09-29 01:00 → JER 08:34 → JERBED 12:36 ==

== ENCOUNTER 2018-11-02 18:05 | Observation (INO) | payer OTHER ==
--- NOTE | 2018-11-02 18:13 | PDOC ---
Rapid Medical Evaluation Chief Complaint: Chest Pain Time Seen by Provider: 11/02/18 18:08 Medical Evaluation: Allergies Allergy/AdvReac Type Severity Reaction Status Date / Time amoxicillin trihydrate Allergy Intermediate Swelling Verified 09/28/18 08:38 [From Augmentin] potassium clavulanate Allergy Intermediate Swelling Verified 09/28/18 08:38 [From Augmentin] 11/02/18 18:09 I have performed a brief in-person evaluation of this patient. The patient presents with a chief complaint of: CP 2 days ago- seen by PMD today and stated EKG not better , told was AFib and needed to go to ER / sp PR last year Pertinent physical exam findings: well, no symptoms now I have ordered the following: EKG/ labs The patient will proceed to the ED for further evaluation. 11/02/18 18:11 11/02/18 18:12 11/02/18 18:12 Discharge Disposition - Diagnosis Chest pain - Referrals - Patient Instructions - Post Discharge Activity
[2018-11-02 18:20] VITALS: BMI 35.2
[2018-11-02 19:43] LABS: BASO % 0.3 % (0-2.0); EOS % 3.6 % (0-4.5); HEMATOCRIT 38.4 % (32.4-45.2); HEMOGLOBIN 12.6 GM/dL (10.7-15.3); LYMPH % 32.8 % (8-40); MCH 30.2 pg (25.7-33.7); MCHC 32.8 g/dl (32.0-36.0); MEAN PLT VOLUME 9.1 fl (7.5-11.1); MONO % 10.3 % (3.8-10.2); PLATELET COUNT 217 K/MM3 (134-434); RBC 4.17 M/mm3 (3.60-5.2); RDW 14.5 % (11.6-15.6); WHITE BLOOD COUNT 5.9 K/mm3 (4.0-10.0)
[2018-11-02 19:53] LABS: INR 2.14 (0.83-1.09); PROTHROMBIN TIME (PATIENT) 25.4 SEC (9.7-13.0)
[2018-11-02 20:21] LABS: ALBUMIN 3.6 g/dl (3.4-5.0); BILIRUBIN,TOTAL 0.2 mg/dL (0.2-1); BLOOD UREA NITROGEN 27.1 mg/dL (7-18); CALCIUM 9.5 mg/dL (8.5-10.1); CREATININE 1.1 mg/dL (0.55-1.3); POTASSIUM 4.3 mmol/L (3.5-5.1); TOT PROT 7.6 g/dl (6.4-8.2)
--- NOTE | 2018-11-02 20:39 | PDOC ---
History of Present Illness - General Chief Complaint: Shortness of Breath Stated Complaint: SENT BY DOCTOR Time Seen by Provider: 11/02/18 18:08 History Source: Patient Exam Limitations: No Limitations - History of Present Illness Initial Comments: Marci Orr is a 52 yo F w a pmh hx of HTN, HLD, CAD, multiple AR's, CHF w ef 15-20% 2 weeks ago, A-Fib, IDDM, asthma, COPD, anxiety, and chronic back pain who presents to the [facility] ER sent by her doctor for chest pain and shortness of breath. Dr. Fili Espinoza sent the patient to the hospital to be admitted for a chest pain workup because the patient had an episode of chest pain 2 days ago which he believes was a heart attack. The patient was at [employer] when she felt excruciating left sided chest pain that she described as someone broke my heart in half. She states that she has felt that pain frequently in the past and it was associated with significant shortness of breath. When Dr. Espinoza reviewed the patient's EKG he noted A-fib, irreg irreg , ST depressions in V2-V4, TWI throughout precordial and limb leads. When reviewing her EKG in the office he concluded that she has significant stress to her heart with the ST depressions and advised the patient to proceed immediately to the ED to be admitted for a chest pain workup and optimization. PCP: Fili Espinoza PSH: cholecystectomy, LTKR Social Hx: independent in ADL. Smokes 1 PPD, denies alcohol or illicit drug usage. Allergies: Amoxicillin Past History - Past Medical History Allergies/Adverse Reactions: Allergies Allergy/AdvReac Type Severity Reaction Status Date / Time amoxicillin trihydrate Allergy Intermediate Swelling Verified 11/02/18 18:13 [From Augmentin] potassium clavulanate Allergy Intermediate Swelling Verified 11/02/18 18:13 [From Augmentin] Home Medications: Ambulatory Orders Carvedilol 6.25 mg PO BID 11/02/18 Clopidogrel Bisulfate [Plavix] 75 mg PO DAILY 11/02/18 Digoxin [Lanoxin -] 0.25 mg PO DAILY 11/02/18 Losartan Potassium [Cozaar -] 50 mg PO DAILY 11/02/18 Pantoprazole Sodium [Protonix -] 20 mg PO DAILY 11/02/18 Rivaroxaban [Xarelto -] 20 mg PO DAILY 11/02/18 Spironolactone [Aldactone -] 25 mg PO DAILY #90 tablet 11/03/18 Asthma: Yes Cancer: No Cardiac Disorders: Yes (reduced ejection fraction of 23%, AR 2018) CVA: No COPD: No CHF: Yes (with pulmonary HTN) Diabetes: Yes Disorders: No HTN: Yes Hypercholesterolemia: Yes Liver Disease: No Psychiatric Problems: Yes (bipolar) Seizures: No Thyroid Disease: No - Surgical History Cardiac Surgery: No Cholecystectomy: Yes Neurologic Surgery: No Orthopedic Surgery: Yes (left total knee replacement 1996) - Family Disease History Family Disease History: Diabetes: Mother - Immunization History Immunization Up to Date: Yes - Suicide/Smoking/Psychosocial Hx Smoking Status: No Smoking History: Current every day smoker Have you smoked in the past 12 months: Yes Number of Cigarettes Smoked Daily: 1 Information on smoking cessation initiated: Yes 'Breaking Loose' booklet given: 09/29/18 Hx Alcohol Use: No Drug/Substance Use Hx: No Substance Use Type: Alcohol, Cocaine, Marijuana Hx Substance Use Treatment: Yes (detox, [facility]) Review of Systems - Review of Systems Able to Perform ROS?: Yes Comments:: CONSTITUTIONAL: Absent: fever, no chills, no fatigue EYES: Absent: visual changes ENT: Absent: ear pain, no sore throat CARDIOVASCULAR: pRESENT: chest pain, no palpitations RESPIRATORY: Present: SOB Absent: cough GI: Absent: abdominal pain, no nausea, no vomiting, no constipation, no diarrhea GENITOURINARY: Absent: dysuria, no frequency, no hematuria MUSKULOSKELETAL: Absent: back pain, no arthralgia, no myalgia SKIN: Absent: rash NEURO: Absent: headache *Physical Exam - Vital Signs Last Vital Signs Temp Pulse Resp BP Pulse Ox 97.5 F L 78 19 136/70 99 11/02/18 18:10 11/02/18 18:10 11/02/18 18:10 11/02/18 18:10 11/02/18 19:12 - Physical Exam Comments: GENERAL: Well developed, well nourished. Awake and alert. No acute distress. HEENT: Normocephalic, atraumatic. PERRLA, EOMI. No conjunctival pallor. Sclera are non- icteric. Moist mucous membranes. Oropharynx is clear. NECK: Supple. Full ROM. No JVD. Carotid pulses 2+ and symmetric, without bruits. No thyromegaly. No lymphadenopathy. CARDIOVASCULAR: Irregularly irregular. No murmurs, rubs, or gallops. Distal pulses are 2+ and symmetric. PULMONARY: No evidence of respiratory distress. Lungs clear to auscultation bilaterally. No wheezing, rales or rhonchi. ABDOMINAL: Soft. Non-tender. Non-distended. No rebound or guarding. No organomegaly. Normoactive bowel sounds. MUSCULOSKELETAL Normal range of motion at all joints. No bony deformities or tenderness. No CVA tenderness. EXTREMITIES: No cyanosis. No clubbing. No edema. No calf tenderness. SKIN: Warm and dry. Normal capillary refill. No rashes. No jaundice. NEUROLOGICAL: Alert, awake, appropriate. Cranial nerves 2-12 intact. No deficits to light touch in face, upper extremities and lower extremities. No motor deficits in the in face, upper extremities and lower extremities. Normal speech. Gait is normal without ataxia. PSYCHIATRIC: Patient is sad. Cooperative. Good eye contact. Appropriate mood and affect. Heart Score/ECG Review - History History: Highly suspicious - Electrocardiogram EKG: Significant ST-depression - Age Age: 45-65 - Risk Factors Risk Factors Heart Score: Yes Hx Hypercholesterolemia, Yes Hx Hypertension, Yes Positive family hx of cardiac disease, Yes Hx Obesity Based on the list above the patient has:: >/=3 risk factors or Hx atherosclerotic disease - Troponin Troponin: 1-3x normal limit - Score Heart Score - Total: 8 - ECG Intrepretation Rhythm: Irregularly Irregular - [place]: Normal - ST and T Non Specific ST-T Wave changes: Yes ST Depression Suggest: Ischemia T Wave Elevation Suggest: Ischemia Flattened T Waves: Yes - ECG Impressions Normal ECG: No Non-specific ST Elevation: No Ischemic Changes: Yes Acute Myocardial Infarction: Anterolateral Bradycardia: No Tachycardia: Afib w/controlled rate Torsades ana Pointes: No ED Treatment Course - LABORATORY CBC & Chemistry Diagram: 11/03/18 07:10 11/03/18 07:10 - ADDITIONAL ORDERS Additional order review: Laboratory Results 11/02/18 11/02/18 11/02/18 19:27 18:58 18:58 PT with INR 25.40 H INR 2.14 H Sodium 139 Potassium 4.3 Chloride 103 Carbon Dioxide 31 Anion Gap 5 L BUN 27.1 H Creatinine 1.1 Est GFR (CKD-EPI)AfAm 66.85 Est GFR (CKD-EPI)NonAf 57.68 Random Glucose 239 H Calcium 9.5 Total Bilirubin 0.2 AST 15 ALT 23 Alkaline Phosphatase 83 Creatine Kinase 96 Troponin I 0.06 H Total Protein 7.6 Albumin 3.6 11/02/18 19:27 RBC 4.17 MCV 92.0 MCHC 32.8 RDW 14.5 MPV 9.1 Neutrophils % 53.0 Lymphocytes % 32.8 Monocytes % 10.3 H Eosinophils % 3.6 Basophils % 0.3 - RADIOLOGY Radiograph Interpretation: CXR: Rule out pulmonary edema. Chest 2 views. Trachea. Mildly uncoiled thoracic aorta. Mild cardiomegaly. There is no evidence of a pulmonary edema, congestive changes. The lungs are well aerated without evidence of a pulmonary infiltrates , atelectasis. No pneumothorax, or large pleural effusion is seen. The visualized osseous structures appear intact. Impression. Cardiomegaly. Evidence of a pulmonary edema, CHF, pneumonia. No pleural effusion, or pneumothorax is seen. Medical Decision Making - Medical Decision Making Marci Orr is a 52 yo F w a pmh hx of HTN, HLD, CAD, multiple AR's, CHF w ef ~ 28 on echo in 2014later showed 23%, A-Fib, IDDM, asthma, COPD, anxiety, and chronic back pain who presents to the [facility] ER sent by her doctor for chest pain and shortness of breath. Dr. Fili Espinoza sent the patient to the hospital to be admitted for a chest pain workup because the patient had an episode of chest pain 2 days ago which he believes was a heart attack. Vital Signs Temp Pulse Resp BP Pulse Ox 97.5 F L 74 18 160/93 100 11/02/18 18:10 11/02/18 21:08 11/02/18 21:08 11/02/18 21:08 11/02/18 21:08 MDM: Patient sent by her PCP to be admitted for a chest pain workup. EKG: A-Fib, Narrow complexes at rate of 66, ST&T wave abnormalities, ST depression 1 mm in leads 2 and aVF no present on 09/29/18, half mm ST depressions in V5 and V6. Plan: Labs, CXR, EKG, Admit to telemetry for cardiac workup. HEART score 10 Cardiac Consult - Dr. Oconnell: Recommends one night observation and discharge in morning/early day tomorrow. Labs: Elevated BUN, mildly elevated trop and elevated BNP. CXR: Impression. Cardiomegaly. Evidence of a pulmonary edema, CHF, pneumonia. No pleural effusion, or pneumothorax is seen. Disposition: Admit to hospital for one day stay cardiac optimization. *DC/Admit/Observation/Transfer Diagnosis at time of Disposition: Chest pain, Acute electrocardiogram changes - Discharge Dispostion Disposition: HOME Condition at time of disposition: Stable Decision to Admit order: Yes - Referrals - Patient Instructions - Post Discharge Activity
--- NOTE | 2018-11-02 21:13 | PDOC ---
Documentation entered by Dorcas Nguyen SCRIBE, acting as scribe for Jaylon Li MD. Jaylon Li MD: This documentation has been prepared by the Wendy grullon Brenda, SCRIBE, under my direction and personally reviewed by me in its entirety. I confirm that the documentation accurately reflects all work, treatment, procedures, and medical decision making performed by me. Attending Attestation - Resident Resident Name: Cristian Marion - ED Attending Attestation I have performed the following: I have examined & evaluated the patient, The case was reviewed & discussed with the resident, I agree w/resident's findings & plan, Exceptions are as noted - HPI HPI: 11/02/18 21:48 The patient is a 52 year old female, with a significant PMH of HTN, HLD, CAD, multiple [place]'s, CHF , A-Fib, IDDM, asthma, COPD, anxiety, and chronic back pain, who presents to the emergency department, sent from her PCPs office for evaluation of chest pain 2 days ago, and a full cardiac workup. As per patient, episode of chest pain consisted of her being at [employer], at which time she felt severe left sided chest pain, she states that she has felt that type of pain before and it was associated with her current shortness of breath. While viewing patient's EKG, the PCP advised her to come to the ED immediately. The patient currently reports being asymptomatic. The patient denies headache and dizziness Denies fever, chills, nausea, vomiting , diarrhea and constipation. Denies dysuria, frequency, urgency and hematuria. Denies any other symptoms. Allergies: Amoxicillin, potassium clavulanate Past surgical history: cholecystectomy, LTKR Social history: Current tobacco use, 1 pack per day. PCP: Fili Espinoza - Physicial Exam PE: 11/02/18 22:01 Agree with exam as documented by resident - Medical Decision Making 11/02/18 22:01 With recent, resolved episode of acute, intense chest pain, was seen by PCP who noted concerning EKG changes in office. Sent to ED for evaluation CP in high risk patient, elevated HEART score f/u labs, ekg, cxr dispo: admit to Dr. Espinoza
[2018-11-02 22:00] LABS: N-TERMINAL BNP 2049.1 pg/ml (5-125)
--- NOTE | 2018-11-02 22:01 | PN ---
Teaching Attending Note Name of Resident: April Mixon ATTENDING PHYSICIAN STATEMENT I saw and evaluated the patient. I reviewed the resident's note and discussed the case with the resident. I agree with the resident's findings and plan as documented. SUBJECTIVE: Patient is a 52 year old woman with PMH of HTN, HLD, CAD, multiple NM's, CHF ( LVEF 15-20% 2 weeks ago), Polysubstance abuse, A-Fib, IDDM, Asthma/COPD, Anxiety , Tobacco use and Chronic back pain who was sent by her doctor for chest pain and shortness of breath. Dr. Fili Espinoza sent the patient to the hospital to be admitted for a chest pain workup because the patient had an episode of chest pain 2 days ago which he believes was a heart attack. The patient was at [employer] when she felt excruciating left sided chest pain that she described as someone broke my heart in half. She states that she has felt that pain frequently in the past and it was associated with significant shortness of breath. When Dr. Espinoza reviewed the patient's EKG he noted A-fib, irregularly irregular, ST depressions in V2-V4, TWI throughout precordial and limb leads. When reviewing her EKG in the office he concluded that she has significant stress to her heart with the ST depressions and advised the patient to proceed immediately to the ED to be admitted for a chest pain workup and optimization. OBJECTIVE: Alert Vital Signs Period Temp Pulse Resp BP Sys/Khanna Pulse Ox Last 24 Hr 97.5 F 74-78 18-19 136-160/70-93 99-100 HEENT: No Jaundice, eye redness or discharge, PERRLA, EOMI. Normocephalic, atraumatic. External ears are normal and hearing is grossly intact. No nasal discharge. Neck: Supple, nontender. No palpable adenopathy or thyromegaly. No JVD Chest: Good effort. Clear to auscultation. Midsternal tenderness. Heart: Irregularly irregular. No S3, rub or murmur Abdomen: Not distended, soft, nontender and no HSM. No rebound or guarding. Normal bowel sounds. Ext: Peripheral pulses intact. No leg edema. Skin: Warm and dry. No petechiae, rash or ecchymosis. Neuro: Alert. Oriented x3. CN 2-12 grossly intact. Sensation grossly intact in all four extremities and DTR are symmetric. Psych: Appropriate mood and affect. Good insight. Home Medications Medication Instructions Recorded Albuterol 0.083% Nebulizer Gabriella 1 neb NEB QID PRN 11/02/18 [Ventolin 0.083%] Albuterol 2.5/Ipratropium 0.5 1 neb IH QID 11/02/18 [Duoneb -] Albuterol Sulfate Inhaler - 2 inh PO Q6H PRN 11/02/18 [Ventolin Hfa Inhaler -] Carvedilol 3.125 mg PO DAILY 11/02/18 Clopidogrel Bisulfate [Plavix] 75 mg PO DAILY 11/02/18 Digoxin [Lanoxin -] 0.25 mg PO DAILY 11/02/18 Fluticasone Propionate [Flovent 50 mcg IH DAILY 11/02/18 Diskus] Fluticasone/Salmeterol [Advair 1 each IH BID 11/02/18 250-50 Diskus] Furosemide [Lasix] 40 mg PO BID 11/02/18 Gabapentin 300 mg PO TID 11/02/18 Losartan Potassium [Cozaar -] 50 mg PO DAILY 11/02/18 Magnesium Oxide [Magnesium Oxide 240 mg PO DAILY 11/02/18 400] Metformin HCl [Metformin HCl ER] 500 mg PO DAILY 11/02/18 Montelukast Sodium [Singulair] 10 mg PO DAILY 11/02/18 Morphine Sulfate [Morphine Sulfate 15 mg PO BID 11/02/18 ER] Pantoprazole Sodium [Protonix -] 20 mg PO DAILY 11/02/18 Prednisone [Deltasone] 40 mg PO DAILY 11/02/18 Rivaroxaban [Xarelto -] 20 mg PO DAILY 11/02/18 Simvastatin [Zocor -] 20 mg PO HS 11/02/18 Spironolactone [Aldactone] 25 mg PO DAILY 11/02/18 Abnormal Lab Results 11/02/18 11/02/18 11/02/18 18:58 18:58 19:27 Monocytes % 10.3 H PT with INR INR Anion Gap 5 L BUN 27.1 H Random Glucose 239 H Troponin I 0.06 H B-Natriuretic Peptide 2049.1 H 11/02/18 19:27 Monocytes % PT with INR 25.40 H INR 2.14 H Anion Gap BUN Random Glucose Troponin I B-Natriuretic Peptide ASSESSMENT AND PLAN: 1. Chest pain - Now pain free. EKG shows A-fib with rate of 66/minute; ST depression leads II, aVF, V5 and V6. Initial troponin is 0.06. Will admit to telemetry. repeat EKG, trend troponin and get ECHO. Consult cardiology. Will continue comprehensive care of all her comorbid conditions. 2. DM For now, we will hold the home diabetes drugs and implement sliding scale insulin regimen. Provide comprehensive diabetes care with patient teaching and counseling about the importance of adherence to prescribed diabetes regimen, euglycemia, eye care and foot care. 3. Tobacco Use Counseled on risks associated with tobacco use. We will provide patient all the necessary assistance to facilitate smoking cessation and prescribe Nicotine patch. 4. Obesity Counseled on the risks associated with obesity. Will provide patient all the necessary assistance, counseling and positive reinforcement to facilitate weight loss. Consult insulation worker. 5. Hypertension - Restart suitable outpatient antihypertensive drugs when clinically appropriate. Revise regimen to ensure good BP control. Nonpharmacologic measures to control hypertension like weight loss, salt restriction and exercise discussed. 6. DVT prophylaxis - Lovenox 40 mg SQ q 24 hours. 7. Advance directives - Full code
[2018-11-02] MEDS ORDERED: ASPIRIN 81 MG CHEWABLE TABLETS ONE (22:02)
[2018-11-02] MEDS: ASPIRIN 81 MG CHEWABLE TABLETS PO ONE ×2 (22:04→22:57)
--- NOTE | 2018-11-02 23:01 | HP ---
CHIEF COMPLAINT: Chest Pain PCP: Dr. Espinoza HISTORY OF PRESENT ILLNESS: 52F with PMHx significant for HTN, CAD, NM, AFib, IDDM, Asthma, who is referred to the hospital today from her PMD who saw new EKG findings in office (ST depressions in V2-V4). Patient reports that on Tuesday she was in [employer] and agitated when she experienced chest pain located towards the left sternal border for approximately 5 minutes. It was non-radiating and associated with shortness of breath. However it was not like her chest pain from prior NM. She sat down and the pain dissipated after 5 minutes. She has not had a recurrence of the chest pain since that event but notes tenderness in that region. She denies any change in her exercise tolerance, she normally uses a wheelchair to ambulate but has been waiting for a new chair for 3 weeks. She currently ambulates using a walker. She currently denies any chest paint, cough, fever, shortness of breath, pleuritic pain, weakness, and dizziness. ER course was notable for: (1)Aspirin 160 was given. EKG was done which showed new ST depressions in V2-V4 and atrial fibrillation. Recent Travel: none PAST MEDICAL HISTORY:HTN, HLD, CAD, NM,IDDM, Afib, NM, Asthma, Anxiety PAST SURGICAL HISTORY: LTKR Social History: Smokin cigarette a day, 84 pack/year history Alcohol: used to drink 3 beers/night. Stopped after NM in September. Drugs: Denies Family History: Multiple family hx of heart murmurs and diabetes. Allergies amoxicillin trihydrate [From Augmentin] Allergy (Intermediate, Verified 18:13) Swelling potassium clavulanate [From Augmentin] Allergy (Intermediate, Verified 11/02/18 18:13) Swelling HOME MEDICATIONS: Home Medications Medication Instructions Recorded Albuterol 0.083% Nebulizer Gabriella 1 neb NEB QID PRN 11/02/18 [Ventolin 0.083%] Albuterol 2.5/Ipratropium 0.5 1 neb IH QID 11/02/18 [Duoneb -] Albuterol Sulfate Inhaler - 2 inh PO Q6H PRN 11/02/18 [Ventolin Hfa Inhaler -] Carvedilol 3.125 mg PO DAILY 11/02/18 Clopidogrel Bisulfate [Plavix] 75 mg PO DAILY 11/02/18 Digoxin [Lanoxin -] 0.25 mg PO DAILY 11/02/18 Fluticasone Propionate [Flovent 50 mcg IH DAILY 11/02/18 Diskus] Fluticasone/Salmeterol [Advair 1 each IH BID 11/02/18 250-50 Diskus] Furosemide [Lasix] 40 mg PO BID 11/02/18 Gabapentin 300 mg PO TID 11/02/18 Losartan Potassium [Cozaar -] 50 mg PO DAILY 11/02/18 Magnesium Oxide [Magnesium Oxide 240 mg PO DAILY 11/02/18 400] Metformin HCl [Metformin HCl ER] 500 mg PO DAILY 11/02/18 Montelukast Sodium [Singulair] 10 mg PO DAILY 11/02/18 Morphine Sulfate [Morphine Sulfate 15 mg PO BID 11/02/18 ER] Pantoprazole Sodium [Protonix -] 20 mg PO DAILY 11/02/18 Prednisone [Deltasone] 40 mg PO DAILY 11/02/18 Rivaroxaban [Xarelto -] 20 mg PO DAILY 11/02/18 Simvastatin [Zocor -] 20 mg PO HS 11/02/18 Spironolactone [Aldactone] 25 mg PO DAILY 11/02/18 REVIEW OF SYSTEMS In addition to above CONSTITUTIONAL: Absent: fever, chills, diaphoresis, generalized weakness, malaise HEENT: Absent: rhinorrhea, nasal congestion, throat pain, throat swelling, difficulty swallowing, visual changes CARDIOVASCULAR: Endorses edema of the legs Absent: chest pain, syncope, palpitations, irregular heart rate, lightheadedness , RESPIRATORY: Absent: cough, shortness of breath, dyspnea with exertion, orthopnea, wheezing, stridor, hemoptysis GASTROINTESTINAL: Absent: abdominal pain, abdominal distension, nausea, vomiting, diarrhea, constipation, melena, hematochezia GENITOURINARY: Absent: dysuria, frequency, urgency, hesitancy, hematuria, flank pain, genital pain MUSCULOSKELETAL: Absent: myalgia, arthralgia, ENDOCRINE: Absent: unexplained weight gain, unexplained weight loss, heat intolerance, cold intolerance NEUROLOGIC: hx of diabetic foot neuropathy- reports decreased sensation on the sole of her right foot. Absent: headache, focal weakness or paresthesias, dizziness, unsteady gait, seizure, mental status changes, bladder or bowel incontinence PSYCHIATRIC: Absent: anxiety PHYSICAL EXAMINATION Vital Signs - 24 hr 11/02/18 11/02/18 11/02/18 18:10 19:12 21:08 Temperature 97.5 F L Pulse Rate 78 Pulse Rate [ 74 Apical] Respiratory 19 18 Rate Blood Pressure 136/70 Blood Pressure 160/93 [Right Arm] O2 Sat by Pulse 99 99 100 Oximetry (%) GENERAL: Awake, alert, and fully oriented, in no acute distress. HEAD: Normal with no signs of trauma. EYES: Pupils equal, round and reactive to light, extraocular movements intact, sclera anicteric, conjunctiva clear. No lid lag. EARS, NOSE, THROAT: Ears normal, nares patent, oropharynx clear without exudates. Moist mucous membranes. NECK: Normal range of motion, No JVD, or masses. LUNGS: Breath sounds equal, clear to auscultation bilaterally. No wheezes, and no crackles. No accessory muscle use. HEART: Irregular rhythm, normal S1 and S2 without murmur, rub or gallop. ABDOMEN: Soft, nontender, not distended, normoactive bowel sounds, no guarding, no rebound, no masses. MUSCULOSKELETAL: Normal range of motion at all joints. No bony deformities or tenderness. No CVA tenderness. UPPER EXTREMITIES: 2+ pulses, warm, well-perfused. No cyanosis. No clubbing. No peripheral edema. LOWER EXTREMITIES: 2+ pulses, warm, well-perfused. +1 Edematous legs. Decreased sensation on plantar side of R. Foot. Normal sensation on Dorsal side of R & L foot. Normal sensation on plantar L foot. PSYCHIATRIC: Cooperative. Good eye contact. Appropriate mood and affect. SKIN: Warm, dry, normal turgor, no rashes or lesions noted, normal capillary refill. Laboratory Results - last 24 hr 11/02/18 11/02/18 11/02/18 18:58 18:58 19:27 WBC 5.9 RBC 4.17 Hgb 12.6 Hct 38.4 MCV 92.0 MCH 30.2 MCHC 32.8 RDW 14.5 Plt Count 217 D MPV 9.1 Absolute Neuts (auto) 3.1 Neutrophils % 53.0 Lymphocytes % 32.8 Monocytes % 10.3 H Eosinophils % 3.6 Basophils % 0.3 Nucleated RBC % 0 PT with INR INR Sodium 139 Potassium 4.3 Chloride 103 Carbon Dioxide 31 Anion Gap 5 L BUN 27.1 H Creatinine 1.1 Est GFR (CKD-EPI)AfAm 66.85 Est GFR (CKD-EPI)NonAf 57.68 Random Glucose 239 H Calcium 9.5 Total Bilirubin 0.2 AST 15 ALT 23 Alkaline Phosphatase 83 Creatine Kinase 96 Troponin I 0.06 H B-Natriuretic Peptide 2049.1 H Total Protein 7.6 Albumin 3.6 11/02/18 19:27 WBC RBC Hgb Hct MCV MCH MCHC RDW Plt Count MPV Absolute Neuts (auto) Neutrophils % Lymphocytes % Monocytes % Eosinophils % Basophils % Nucleated RBC % PT with INR 25.40 H INR 2.14 H Sodium Potassium Chloride Carbon Dioxide Anion Gap BUN Creatinine Est GFR (CKD-EPI)AfAm Est GFR (CKD-EPI)NonAf Random Glucose Calcium Total Bilirubin AST ALT Alkaline Phosphatase Creatine Kinase Troponin I B-Natriuretic Peptide Total Protein Albumin ASSESSMENT/PLAN: 52 F with PMH of NM, CAD, Afib, and insulin dependent diabetes who presents today with new ST wave changes on lateral leads on EKG. Although she is currently pain free, she likely had an NSTEMI. 1)Possible NSTEMI vs Unstable angina Echocardiogram Stress Test Trend Troponins NPO Consult Cardiology 2)Diabetes Mellitus Sliding Scale Insulin 3)HTN Restarted on home medications DVT Prophylaxis: Lovenox 40 mg SQ QD F:No fluids E:Trend BMP N:NPO until stress test Dispo: Admit to telemetry observation Problem List - Problem (1) Acute electrocardiogram changes Code(s): R94.31 - ABNORMAL ELECTROCARDIOGRAM [ECG] [EKG] (2) Chest pain Code(s): R07.9 - CHEST PAIN, UNSPECIFIED (3) Cardiac LV ejection fraction 21-30% Code(s): R93.1 - ABNORMAL FINDINGS ON DX IMAGING OF HEART AND COR CIRC (4) Diabetes mellitus with insulin therapy Code(s): E11.9 - TYPE 2 DIABETES MELLITUS WITHOUT COMPLICATIONS; Z79.4 - COMMUNITY DIRECTOR (CURRENT) USE OF INSULIN Visit type - Emergency Visit Emergency Visit: Yes ED Registration Date: 11/02/18 Care time: The patient presented to the Emergency Department on the above date and was hospitalized for further evaluation of their emergent condition. - New Patient This patient is new to me today: Yes Date on this admission: 11/03/18 - Critical Care Critical Care patient: No ATTENDING PHYSICIAN STATEMENT I saw and evaluated the patient. I reviewed the resident's note and discussed the case with the resident. I agree with the resident's findings and plan as documented. SUBJECTIVE: OBJECTIVE: ASSESSMENT AND PLAN:
[2018-11-03] MEDS ORDERED: INSULIN SLIDING SCALE (NOVOLOG) 1 VIAL SQ SCH ×3 (00:29→07:00)
[2018-11-03] MEDS: INSULIN SLIDING SCALE (NOVOLOG) 1 VIAL SQ SCH ×3 (01:22→11:59)
[2018-11-03] MEDS ORDERED: INSULIN REGULAR HUMAN 100 UNITS/ML *VIAL ONE (01:25)
[2018-11-03] MEDS ORDERED: GABAPENTIN 300 MG CAPSULE (FP) PO SCH (06:00)
[2018-11-03] MEDS ORDERED: GABAPENTIN 100 MG CAPSULE (FP) ONE (06:02)
[2018-11-03] MEDS ORDERED: FUROSEMIDE 40 MG TABLET (FP) PO SCH (06:45)
[2018-11-03] MEDS ORDERED: ALBUTEROL SO4 2.5/IPRATROPIUM 0.5 INH SOL 3 ML VIAL.NEB. NEB SCH (08:00)
[2018-11-03 08:11] LABS: HEMATOCRIT 34.5 % (32.4-45.2); HEMOGLOBIN 11.4 GM/dL (10.7-15.3); MCH 30.2 pg (25.7-33.7); MEAN CELL VOLUME 91.6 fl (80-96); MEAN PLT VOLUME 9.2 fl (7.5-11.1); PLATELET COUNT 193 K/MM3 (134-434); RBC 3.77 M/mm3 (3.60-5.2); RDW 14.3 % (11.6-15.6); WHITE BLOOD COUNT 5.3 K/mm3 (4.0-10.0)
[2018-11-03 08:30] LABS: ALBUMIN 3.2 g/dl (3.4-5.0); BILIRUBIN,TOTAL 0.2 mg/dL (0.2-1); BLOOD UREA NITROGEN 26.5 mg/dL (7-18); CALCIUM 9.7 mg/dL (8.5-10.1); CREATININE 0.8 mg/dL (0.55-1.3); MAGNESIUM 2.2 mg/dL (1.8-2.4); TOT PROT 6.8 g/dl (6.4-8.2)
--- NOTE | 2018-11-03 08:34 | PN ---
Progress Note, Physician Chief Complaint: Sent by PMD to ER for abnl ECG History of Present Illness: 52 F known to me from recent admission here and office. Was admitted here recently with NSTEMI/ TnI 30 in setting cocaine abuse. PAF and severe LV dysfx. Transferred to [place], had cath showing non-obstx CAD --> medical Rx recommended. Was sent home with Plavix nad Xarelto for PAF. Also now following at [place] [facility] PHTN/CHF center with close monitoring for possible future ICD. Has been very compliant with office follow up since discharge. She went to PMD office yesterday and after mentioning an episode of atypical chest pain few days ago lasting couple minutes, he sent her to ER for Nonspecific ST changes on ECG. She denies CP presently, SOB, PND, orthopnea, syncope or edema. She feels well. She is on Digoxin 0.25mg daily- so these ST changes may be dig effect. - Current Medication List Current Medications: Active Medications Albuterol/Ipratropium (Duoneb -) 1 amp NEB RQID [facility] Aspirin (Asa -) 81 mg PO DAILY [facility] Atorvastatin Calcium (Lipitor -) 10 mg PO HS [facility] Carvedilol (Coreg -) 6.25 mg PO BID [facility] Clopidogrel Bisulfate (Plavix -) 75 mg PO DAILY [facility] Digoxin (Lanoxin -) 0.25 mg PO DAILY [facility] Furosemide (Lasix -) 40 mg PO BID@0600,1400 [facility] Gabapentin (Neurontin -) 300 mg PO TID [facility] Last Admin: 11/03/18 06:04 Dose: 300 mg Insulin Aspart (Novolog Vial Sliding Scale -) 1 vial SQ ACHS [facility]; Protocol Last Admin: 11/03/18 01:22 Dose: 6 unit Labetalol HCl (Normodyne -) 100 mg PO BID [facility] Losartan Potassium (Cozaar -) 50 mg PO DAILY [facility] Magnesium Oxide (Mag-Ox -) 400 mg PO BID [facility] Montelukast Sodium (Singulair -) 10 mg PO HS [facility] Pantoprazole Sodium (Protonix -) 20 mg PO DAILY [facility] Prednisone (Deltasone -) 40 mg PO DAILY [facility] Rivaroxaban (Xarelto) 20 mg PO DAILY@1800 [facility] Spironolactone (Aldactone -) 25 mg PO DAILY [facility] - Objective Vital Signs: Vital Signs Temperature 98.3 F 11/03/18 03:22 Pulse Rate 67 11/03/18 03:22 Respiratory Rate 20 11/03/18 03:22 Blood Pressure 136/82 11/03/18 03:22 O2 Sat by Pulse Oximetry (%) 99 11/03/18 03:22 Constitutional: Yes: Calm Eyes: Yes: Conjunctiva Clear Cardiovascular: Yes: Regular Rate and Rhythm Respiratory: Yes: CTA Bilaterally (no rales) Gastrointestinal: Yes: Soft, Abdomen, Obese Edema: No (well perfused) Peripheral Pulses WNL: Yes Neurological: Yes: Alert, Oriented Labs: INR, PTT INR 2.14 (0.83-1.09) H 11/02/18 19:27 - ....Imaging EKG: Image Reviewed (AF, NSST changes) Assessment/Plan IMP: 1. Cardiomyopathy, with known severe LV dysfx 2. Recent NSTEMI in setting cocaine use 3. Non-obstructive CAD on cath last month 4. PAF 5. PHTN REC: 1. D/C ASA and continue Plavix monotherapy for non-obstructive CAD and recent NSTEMI. Does not require ASA as she is also on Xarelto for PAF. 2. Continue Xarelto, elevated [id number] score 3. Check Dig level this AM 4. Continue home regimen for CHF: Coreg/Losartan/Aldactone/Dig (will try to switch Losartan to Entrest as outpatient) 5. NSST changes on ECG are baseline and may be more pronounced due to dig effect. 6. If dig level ok and second cardiac enzyme remains flat, can d/c home later today w/ outpt f/u
[2018-11-03 09:13] VITALS: BP 126/72; PULSE 69; TEMP 97.6
[2018-11-03] MEDS ORDERED: ENOXAPARIN NA (PORCINE) 40 MG/0.4 ML DISP.SYRIN SQ SCH (10:00)
[2018-11-03] MEDS ORDERED: LABETALOL HCL 100 MG TABLET (FP) PO SCH (10:00)
[2018-11-03] MEDS ORDERED: CLOPIDOGREL BISULFATE 75 MG TABLET (FP) PO SCH (10:00)
[2018-11-03] MEDS ORDERED: MAGNESIUM OXIDE 400 MG TABLET (FP) PO SCH (10:00)
[2018-11-03] MEDS ORDERED: CARVEDILOL 6.25 MG TABLET (FP) PO SCH (10:00)
[2018-11-03] MEDS ORDERED: DIGOXIN 0.25 MG TABLET (FP) PO SCH (10:00)
[2018-11-03] MEDS ORDERED: predniSONE 20 MG TABLET (UD) PO SCH (10:00)
[2018-11-03] MEDS ORDERED: SPIRONOLACTONE 25 MG TABLET (FP) PO SCH (10:00)
[2018-11-03] MEDS ORDERED: ASPIRIN 81 MG CHEWABLE TABLETS PO SCH (10:00)
[2018-11-03] MEDS ORDERED: LOSARTAN POTASSIUM 50 MG TABLET (FP) PO SCH (10:00)
[2018-11-03] MEDS ORDERED: PANTOPRAZOLE 20 MG TABLET (FP) PO SCH (10:00)
[2018-11-03] MEDS ORDERED: ALBUTEROL SO4 2.5/IPRATROPIUM 0.5 INH SOL 3 ML VIAL.NEB. NEB ONE (10:50)
[2018-11-03] MEDS ORDERED: INSULIN (NOVOLOG) ASPART 100 UNITS/ML 10ML VIAL ONE (11:01)
--- NOTE | 2018-11-03 12:28 | DS ---
Physical Exam: SUBJECTIVE: Patient seen and examined in the ED. She denies chest pain, denies shortness of breath. feels better and wants to go home. Has an appt today at 5pm with a modeling director. wants to see her gastroenterology professor as an outpatient. OBJECTIVE: digoxin levels wnl flat trending trop. will d/c home with cardiology follow up. Vital Signs Period Temp Pulse Resp BP Sys/Khanna Pulse Ox Last 24 Hr 97.5 F-98.3 F 67-78 18-20 126-160/70-93 98-100 PHYSICAL EXAM GENERAL: The patient is awake, alert, and fully oriented, in no acute distress. HEAD: Normal with no signs of trauma. EYES: PERRL, extraocular movements intact, sclera anicteric, conjunctiva clear. ENT: Ears normal, nares patent, oropharynx clear without exudates, moist mucous membranes. NECK: Trachea midline, full range of motion, supple. LUNGS: Breath sounds equal, clear to auscultation bilaterally, no wheezes, no crackles, no accessory muscle use. HEART: Regular rate and rhythm ABDOMEN: Soft, nontender, nondistended, normoactive bowel sounds, no guarding, no rebound, no hepatosplenomegaly, no masses. EXTREMITIES: 2+ pulses, warm, well-perfused, no edema. NEUROLOGICAL: Normal speech, steady gait with RW LABS Laboratory Results - last 24 hr 11/02/18 11/02/18 11/02/18 18:58 18:58 19:27 WBC 5.9 RBC 4.17 Hgb 12.6 Hct 38.4 MCV 92.0 MCH 30.2 MCHC 32.8 RDW 14.5 Plt Count 217 D MPV 9.1 Absolute Neuts (auto) 3.1 Neutrophils % 53.0 Lymphocytes % 32.8 Monocytes % 10.3 H Eosinophils % 3.6 Basophils % 0.3 Nucleated RBC % 0 PT with INR INR Sodium 139 Potassium 4.3 Chloride 103 Carbon Dioxide 31 Anion Gap 5 L BUN 27.1 H Creatinine 1.1 Est GFR (CKD-EPI)AfAm 66.85 Est GFR (CKD-EPI)NonAf 57.68 POC Glucometer Random Glucose 239 H Calcium 9.5 Magnesium Total Bilirubin 0.2 AST 15 ALT 23 Alkaline Phosphatase 83 Creatine Kinase 96 Troponin I 0.06 H B-Natriuretic Peptide 2049.1 H Total Protein 7.6 Albumin 3.6 Digoxin 11/02/18 11/03/18 11/03/18 19:27 00:10 00:15 WBC RBC Hgb Hct MCV MCH MCHC RDW Plt Count MPV Absolute Neuts (auto) Neutrophils % Lymphocytes % Monocytes % Eosinophils % Basophils % Nucleated RBC % PT with INR 25.40 H INR 2.14 H Sodium Potassium Chloride Carbon Dioxide Anion Gap BUN Creatinine Est GFR (CKD-EPI)AfAm Est GFR (CKD-EPI)NonAf POC Glucometer 291 Random Glucose Calcium Magnesium Total Bilirubin AST ALT Alkaline Phosphatase Creatine Kinase Troponin I 0.07 H B-Natriuretic Peptide Total Protein Albumin Digoxin 11/03/18 11/03/18 11/03/18 07:10 07:10 10:54 WBC 5.3 RBC 3.77 Hgb 11.4 Hct 34.5 MCV 91.6 MCH 30.2 MCHC 33.0 RDW 14.3 Plt Count 193 MPV 9.2 Absolute Neuts (auto) Neutrophils % Lymphocytes % Monocytes % Eosinophils % Basophils % Nucleated RBC % PT with INR INR Sodium 138 Potassium 4.0 Chloride 104 Carbon Dioxide 30 Anion Gap 5 L BUN 26.5 H Creatinine 0.8 Est GFR (CKD-EPI)AfAm 98.24 Est GFR (CKD-EPI)NonAf 84.76 POC Glucometer 232 Random Glucose 155 H Calcium 9.7 Magnesium 2.2 Total Bilirubin 0.2 AST 10 L ALT 21 Alkaline Phosphatase 71 Creatine Kinase Troponin I 0.08 H B-Natriuretic Peptide Total Protein 6.8 Albumin 3.2 L Digoxin 1.27 HOSPITAL COURSE: Date of Admission:11/02/18 Date of Discharge: 11/03/18 Patient is a 52 year old female with a significant past medical history of HTN, HLD, CAD, multiple AL's, CHF w ef 15-20% 2 weeks ago, A-Fib, IDDM, asthma, COPD , anxiety, and chronic back pain who presents to the [facility] ER sent by her doctor for chest pain and shortness of breath and ekg changes. Patient with a recentl admission on 09/2018 for NSTEMI, elevated trops at 30 and tested + for cocaine. She was transferred to [facility] and had cath which showed non obstructive CAD (per cardiology). She was sent home with Plavix and Xarelto. Patient being followed at [facility] and Dr. Oconnell for possible future ICD. She went to her PMD and was sent to the ED after she c/o of chest pain and noted to have changes on her EKG. Chest pain, resolved seen and evaluated by cardiology and cleared for d/c home patient to continue home regiment for CHF (coreg/Losartan/Aldactone/Digoxin). Aldactone script called into her pharmacy. Patient for d/c home with cardiology follow up Minutes to complete discharge: 60 Discharge Summary Reason For Visit: ACUTE ELECTROCARDIOGRAPHY CHANGES, CHEST PAIN Current Active Problems Acute electrocardiogram changes (Acute) Chest pain (Acute) Condition: Stable - Instructions Diet, Activity, Other Instructions: Mrs Orr. You have been cleared by cardiology for discharge. Please call Dr. Oconnell office for follow up appointment. Continue taking the following medications Xarelto 20mg daily Digoxin 0.25 daily Losartan 50mg daily coreq 6.25 mg TWICE DAILY Aldactone 25mg ONCE DAILY Thank you for allowing us to care for you. Referrals: Carlos Oconnell MD [Staff Physician] - Disposition: HOME - Home Medications Comprehensive Discharge Medication List: Ambulatory Orders Carvedilol 6.25 mg PO BID 11/02/18 Clopidogrel Bisulfate [Plavix] 75 mg PO DAILY 11/02/18 Digoxin [Lanoxin -] 0.25 mg PO DAILY 11/02/18 Losartan Potassium [Cozaar -] 50 mg PO DAILY 11/02/18 Magnesium Oxide [Magnesium Oxide 400] 400 mg PO BID 11/02/18 Pantoprazole Sodium [Protonix -] 20 mg PO DAILY 11/02/18 Rivaroxaban [Xarelto -] 20 mg PO DAILY 11/02/18 Labetalol HCl [Normodyne -] 100 mg PO BID 11/03/18 This patient is new to me today: No Emergency Visit: Yes ED Registration Date: 11/02/18 Care time: The patient presented to the Emergency Department on the above date and was hospitalized for further evaluation of their emergent condition. Critical Care patient: No - Discharge Referral Referred to [facility] No
--- NOTE | 2018-11-03 12:53 | EKG ---
Test Reason : Blood Pressure : / mmHG Vent. Rate : 066 BPM Atrial Rate : 147 BPM P-R Int : 000 ms QRS Dur : 092 ms QT Int : 378 ms P-R-T Axes : 000 068 227 degrees QTc Int : 396 ms ATRIAL FIBRILLATION LOW VOLTAGE QRS NONSPECIFIC ST ABNORMALITY ABNORMAL ECG Confirmed by PARDEEP ESPINOSA MD ([id number]) on 11/03/2018 12:52:43 PM Referred By: Confirmed By:PARDEEP ESPINOSA MD
[2018-11-03] MEDS ORDERED: RIVAROXABAN 20 MG TABLET PO SCH (18:00)
[2018-11-03] MEDS ORDERED: ATORVASTATIN CA 10 MG TABLET (FP) PO SCH (22:00)
[2018-11-03] MEDS ORDERED: MONTELUKAST NA 10 MG TABLET PO SCH (22:00)
== END 2018-11-03 13:52 | disposition home or self-care (01) ==
LOC: JER 18:05 → JERBED 21:26 → OBSVTOIN 23:53 → INTOOBSV 23:53
PROVIDERS: ADMIT Internal Medicine; ATTEND Nurse Practitioner Family
PROC: 3E013VG Introduction of Insulin into Subcutaneous Tissue, Percutaneous Approach (ICD-10-PCS; principal; 2018-11-02)
PROC: 3E0F7GC Introduction of Other Therapeutic Substance into Respiratory Tract, Via Natural or Artificial Opening (ICD-10-PCS; 2018-11-02)
DX: R07.89 Other chest pain (principal); R94.31 Abnormal electrocardiogram [ECG] [EKG]; I27.0 Primary pulmonary hypertension; I25.10 Atherosclerotic heart disease of native coronary artery without angina pectoris; I25.2 Old myocardial infarction; I50.9 Heart failure, unspecified; I48.0 Paroxysmal atrial fibrillation; I51.7 Cardiomegaly; E78.5 Hyperlipidemia, unspecified; E11.9 Type 2 diabetes mellitus without complications; J44.9 Chronic obstructive pulmonary disease, unspecified; M54.9 Dorsalgia, unspecified; G89.29 Other chronic pain; F17.210 Nicotine dependence, cigarettes, uncomplicated; R93.1 Abnormal findings on diagnostic imaging of heart and coronary circulation; F41.9 Anxiety disorder, unspecified; E66.9 Obesity, unspecified; Z68.35 Body mass index [BMI] 35.0-35.9, adult; Z96.652 Presence of left artificial knee joint; Z79.4 Long term (current) use of insulin; Z88.1 Allergy status to other antibiotic agents
CPT/HCPCS: 36415; 71046-TC-FY; 80053; 80162; 82550; 82962; 83735; 83880; 84484; 85025; 85027; 85610; 93005; 93010; 94640; 96372; 99284-25; G0378

== ENCOUNTER 2019-06-04 05:40 | Inpatient (IN) | payer OTHER ==
[2019-06-04 05:51] VITALS: BMI 35.7
--- NOTE | 2019-06-04 05:57 | PDOC ---
Attending Attestation - Resident Resident Name: ChurchAlfonso - ED Attending Attestation I have performed the following: I have examined & evaluated the patient, The case was reviewed & discussed with the resident, I agree w/resident's findings & plan - HPI HPI: 06/04/19 06:08 Pt has been coughing up blood. She has asthma and SOB and she has a hx of CHF/ enlarged heart, HTN, HLD, CAD, AF (Xarelto), COPD, Pulm HTN, IDDM presenting with cough and slight chest pain - Physicial Exam PE: 06/04/19 06:09 Lungs: Decreased breath sounds bilaterally and patchy wheeze afebrile Hemoptysis Heart irregularly irreg abd NT ND edema of the legs 06/04/19 06:31 - Medical Decision Making 06/04/19 06:24 Pt has labs drawn, duoneb going; decadron goven and levaquinb started, EKG shows afib Pt may need CTA to r/o blood clot 06/04/19 06:26 Pt will be signed out to the day team and they will follow all labs
[2019-06-04] MEDS ORDERED: DEXAMETHASONE LIQUID 0.5 MG/5 ML PO ONE (06:11)
[2019-06-04] MEDS ORDERED: ALBUTEROL SO4 2.5/IPRATROPIUM 0.5 INH SOL 3 ML VIAL.NEB. NEB ONE ×4 (06:11→19:00)
[2019-06-04] MEDS ORDERED: DEXAMETHASONE SOD PHOSPHATE 10 MG/1 ML VIAL ONE (06:16)
--- NOTE | 2019-06-04 06:24 | PDOC ---
History of Present Illness - General Chief Complaint: Respiratory Stated Complaint: COUGHING UP BLOOD Time Seen by Provider: 06/04/19 05:54 History Source: Patient Exam Limitations: No Limitations - History of Present Illness Initial Comments: 53F PMH HTN, HLD, CAD, CHF, AF (Xarelto), COPD, Pulm HTN, IDDM presenting with increasing FERRER in setting of flu + dx on 06/01/19. Pt has very frequent severe coughs productive w/ blood tinged mucus. Denies f/c, cp, n/v/d, abd pain. current smoker. Past History - Past Medical History Allergies/Adverse Reactions: Allergies Allergy/AdvReac Type Severity Reaction Status Date / Time amoxicillin trihydrate Allergy Intermediate Swelling Verified 06/04/19 05:52 [From Augmentin] potassium clavulanate Allergy Intermediate Swelling Verified 06/04/19 05:52 [From Augmentin] Home Medications: Ambulatory Orders Carvedilol 6.25 mg PO BID 11/02/18 Clopidogrel Bisulfate [Plavix] 75 mg PO DAILY 11/02/18 Digoxin [Lanoxin -] 0.25 mg PO DAILY 11/02/18 Losartan Potassium [Cozaar -] 50 mg PO DAILY 11/02/18 Pantoprazole Sodium [Protonix -] 20 mg PO DAILY 11/02/18 Rivaroxaban [Xarelto -] 20 mg PO DAILY 11/02/18 Spironolactone [Aldactone -] 25 mg PO DAILY #90 tablet 11/03/18 Asthma: Yes Cancer: No Cardiac Disorders: Yes (reduced ejection fraction of 23%, [place] 2018) CVA: No COPD: No CHF: Yes (with pulmonary HTN) Diabetes: Yes Disorders: No HTN: Yes Hypercholesterolemia: Yes Liver Disease: No Psychiatric Problems: Yes (bipolar) Seizures: No Thyroid Disease: No - Surgical History Cardiac Surgery: No Cholecystectomy: Yes Neurologic Surgery: No Orthopedic Surgery: Yes (left total knee replacement 1996) - Immunization History Immunization Up to Date: Yes - Psycho Social/Smoking Cessation Hx Smoking Status: No Smoking History: Unknown if ever smoked Have you smoked in the past 12 months: Yes Number of Cigarettes Smoked Daily: 1 'Breaking Loose' booklet given: 09/29/18 Hx Alcohol Use: No Drug/Substance Use Hx: No Substance Use Type: Alcohol, Cocaine, Marijuana Hx Substance Use Treatment: Yes (detox, [facility]) Review of Systems - Review of Systems Able to Perform ROS?: Yes Comments:: CONSTITUTIONAL: Denies F / C RESP: endorses increasing FERRER; cough CARD: Denies chest pain GI: Denies N / V / D, abdominal pain : Denies dysuria SKIN: Denies rashes NEURO: Denies numbness, tingling, weakness -- has chronic peripheral neuropathy. *Physical Exam - Vital Signs Last Vital Signs Temp Pulse Resp BP Pulse Ox 98.2 F 87 18 145/83 98 06/04/19 05:43 06/04/19 05:43 06/04/19 05:43 06/04/19 05:43 06/04/19 06:01 - Physical Exam VS: SaO2 97% at time of exam GEN: AAO3 HEENT: NC/AT, anicteric. No facial asymmetry. Moist mucous membranes.. Supple neck w/ FROM. CV: S1/S2, irregular irregular, no m/r/g LUNG: Speaking short sentences, dyspnic on speech. CTAB, no wheezes, crackles, rales, rhonchi. GI: Soft, ndnt, +BS, no guarding, no rebound. MSK: No obvious deformities of all extremities. SKIN: Warm, dry, no rashes appreciated. PSYCH: Normal mood and affect. NEURO: Moving all extremities. ambulates w/ walker ED Treatment Course - LABORATORY CBC & Chemistry Diagram: 06/05/19 12:09 06/05/19 12:09 Medical Decision Making - Medical Decision Making 06/04/19 06:22 53F PMH HTN, HLD, CAD, CHF, AF, COPD, Pulm HTN, IDDM c/o increased FERRER and blood tinged sputum in setting of flu+ and frequent cough. Dyspnic w/ speech; short sentences. DDX - bronchitis, PNA, COPD exacerbation; blood tinged sputum most likely 2/2 bronchitis // coughing - CBC, CMP, Trop - CXR - EKG - ABX - duonebs - steroids - admit - sign out to AM day Discharge - Discharge Information Problems reviewed: Yes Clinical Impression/Diagnosis: FERRER (dyspnea on exertion), SOB (shortness of breath) Condition: Stable - Follow up/Referral - Patient Discharge Instructions - Post Discharge Activity
[2019-06-04 06:54] LABS: EOS % 2.3 % (0-4.5); HEMATOCRIT 37.4 % (32.4-45.2); HEMOGLOBIN 12.3 GM/dL (10.7-15.3); LYMPH % 18.7 % (8-40); MCH 30.3 pg (25.7-33.7); MEAN CELL VOLUME 91.8 fl (80-96); MEAN PLT VOLUME 10.2 fl (7.5-11.1); MONO % 9.5 % (3.8-10.2); NEUT % 67.5 % (42.8-82.8); PLATELET COUNT 185 K/MM3 (134-434); RBC 4.07 M/mm3 (3.60-5.2); RDW 14.4 % (11.6-15.6); WHITE BLOOD COUNT 6.3 K/mm3 (4.0-10.0)
[2019-06-04 07:14] LABS: INR 2.13 (0.83-1.09); PROTHROMBIN TIME (PATIENT) 25.3 SEC (9.7-13.0)
--- NOTE | 2019-06-04 07:17 | PDOC ---
*Physical Exam - Vital Signs Last Vital Signs Temp Pulse Resp BP Pulse Ox 98.2 F 87 18 145/83 98 06/04/19 05:43 06/04/19 05:43 06/04/19 05:43 06/04/19 05:43 06/04/19 06:01 ED Treatment Course - LABORATORY CBC & Chemistry Diagram: 06/04/19 06:20 06/04/19 07:46 - ADDITIONAL ORDERS Additional order review: Laboratory Results 06/04/19 06/04/19 06:23 06:20 PT with INR 25.30 H INR 2.13 H B-Natriuretic Peptide 4881.1 H 06/04/19 06:20 RBC 4.07 MCV 91.8 MCHC 33.0 RDW 14.4 MPV 10.2 D Neutrophils % 67.5 D Lymphocytes % 18.7 D Monocytes % 9.5 Eosinophils % 2.3 Basophils % 2.0 D - Medications Given in the ED: ED Medications Discontinued Medications Generic Name Dose Route Start Last Admin Trade Name Freq PRN Reason Stop Dose Admin Albuterol/Ipratropium 1 amp 06/04/19 06:11 06/04/19 06:33 Duoneb - NEB 06/04/19 06:12 1 amp ONCE ONE Administration Dexamethasone 10 mg 06/04/19 06:11 06/04/19 06:33 Decadron Liquid - PO 06/04/19 06:12 10 mg ONCE ONE Administration Levofloxacin 500 mg in 100 mls @ 100 mls/hr 06/04/19 06:06 06/04/19 06:33 Levaquin 500 Mg Premixed Ivpb - IVPB 06/04/19 07:05 100 mls/hr ONCE ONE Administration Protocol Medical Decision Making - Medical Decision Making 06/04/19 07:19 Received sign out from Dr Church. Pt seen and assessed at bedside. 53F PMH HTN, HLD, CAD, CHF, AF (Xarelto), COPD, Pulm HTN, IDDM, smoking presenting with increasing FERRER in setting of flu + dx on 06/01/19 (on day 3 tx). Pt has very frequent severe coughs productive w/ blood tinged mucus. Pt states she is still SOB, no improvement from duonebs, steroids or abx. Lungs CTAB. -PCP: Dr Saul -Given Levaquin, steroids, duonebs -EKG reviewed: Afib -CXR pending -Labs pending. Reviewed. BNP 4881 (11/02/182018) -If w/u equivocal, consider CTPE (though on Xarelto) -Dispo: likely admit pending w/u 06/04/19 08:03 CXR reviewed: possible infiltrate R base. Pt reassessed - possible faint crackles in R base. 06/04/19 08:23 Per radiology read, large heart with prominent hilar markings and some minimal atelectasis at R base. No sign of infiltrate or failure. Since 11/03/18, the increased central markings and R base changes have developed. The heart remains enlarged. 06/04/19 08:46 Labs reviewed. Admit for IV antibiotics, continued SOB and FERRER. 06/04/19 09:[address] Nagel. Discharge - Discharge Information Problems reviewed: Yes Clinical Impression/Diagnosis: Influenza, FERRER (dyspnea on exertion), SOB (shortness of breath) Condition: Stable - Admission Yes - Follow up/Referral - Patient Discharge Instructions - Post Discharge Activity
[2019-06-04 08:36] LABS: ALBUMIN 3.2 g/dl (3.4-5.0); BILIRUBIN,TOTAL 0.4 mg/dL (0.2-1); BLOOD UREA NITROGEN 15.1 mg/dL (7-18); CALCIUM 8.9 mg/dL (8.5-10.1); CREATININE 0.9 mg/dL (0.55-1.3); POTASSIUM 4.5 mmol/L (3.5-5.1); TOT PROT 6.8 g/dl (6.4-8.2)
--- NOTE | 2019-06-04 09:16 | PDOC ---
*Physical Exam - Vital Signs Last Vital Signs Temp Pulse Resp BP Pulse Ox 98.2 F 76 21 H 132/84 97 06/04/19 05:43 06/04/19 07:17 06/04/19 07:17 06/04/19 07:17 06/04/19 07:17 - Physical Exam 06/04/19 09:14 awake alert lungs crackles right base. normal effort. good aeration. heart rrr no mrg abd soft nt nd . ext wwp. ED Treatment Course - LABORATORY CBC & Chemistry Diagram: 06/04/19 06:20 06/04/19 07:46 - ADDITIONAL ORDERS Additional order review: Laboratory Results 06/04/19 06/04/19 06/04/19 07:46 06:23 06:23 PT with INR INR Sodium 139 Cancelled Potassium 4.5 Cancelled Chloride 109 H Cancelled Carbon Dioxide 24 Cancelled Anion Gap 6 L Cancelled BUN 15.1 Cancelled Creatinine 0.9 Cancelled Est GFR (CKD-EPI)AfAm 84.61 Cancelled Est GFR (CKD-EPI)NonAf 73.00 Cancelled Random Glucose 201 H Cancelled Calcium 8.9 Cancelled Total Bilirubin 0.4 Cancelled AST 45 H Cancelled ALT 59 Cancelled Alkaline Phosphatase 103 Cancelled Creatine Kinase 121 Troponin I 0.05 Cancelled B-Natriuretic Peptide 4881.1 H Total Protein 6.8 Cancelled Albumin 3.2 L Cancelled 06/04/19 06:20 PT with INR 25.30 H INR 2.13 H Sodium Potassium Chloride Carbon Dioxide Anion Gap BUN Creatinine Est GFR (CKD-EPI)AfAm Est GFR (CKD-EPI)NonAf Random Glucose Calcium Total Bilirubin AST ALT Alkaline Phosphatase Creatine Kinase Troponin I B-Natriuretic Peptide Total Protein Albumin 06/04/19 06:20 RBC 4.07 MCV 91.8 MCHC 33.0 RDW 14.4 MPV 10.2 D Neutrophils % 67.5 D Lymphocytes % 18.7 D Monocytes % 9.5 Eosinophils % 2.3 Basophils % 2.0 D - Medications Given in the ED: ED Medications Discontinued Medications Generic Name Dose Route Start Last Admin Trade Name Freq PRN Reason Stop Dose Admin Albuterol/Ipratropium 1 amp 06/04/19 06:11 06/04/19 06:33 Duoneb - NEB 06/04/19 06:12 1 amp ONCE ONE Administration Dexamethasone 10 mg 06/04/19 06:11 06/04/19 06:33 Decadron Liquid - PO 06/04/19 06:12 10 mg ONCE ONE Administration Levofloxacin 500 mg in 100 mls @ 100 mls/hr 06/04/19 06:06 06/04/19 06:33 Levaquin 500 Mg Premixed Ivpb - IVPB 06/04/19 07:05 100 mls/hr ONCE ONE Administration Protocol Medical Decision Making - Medical Decision Making 06/04/19 09:16 53 yo F h/o recently diagnose influenze 3 days ago, copd. asthma ( smoking since 9 yo) here with c/o cough hempotysis. no f/c no n/f does have myalgia nasal congestion. signed out to me by night team, assume care of pt at 7 am pending cxr and labs. cxr with atelectasis right base, will treat for pna, based on sxs and clinical exam. labs reviewed unremarkable. duoneb given h/o copd. Discharge - Discharge Information Problems reviewed: Yes Clinical Impression/Diagnosis: Influenza, FERRER (dyspnea on exertion), SOB (shortness of breath) - Follow up/Referral - Patient Discharge Instructions - Post Discharge Activity
--- NOTE | 2019-06-04 09:53 | EKG ---
Test Reason : Blood Pressure : / mmHG Vent. Rate : 082 BPM Atrial Rate : 234 BPM P-R Int : 000 ms QRS Dur : 092 ms QT Int : 346 ms P-R-T Axes : 000 084 250 degrees QTc Int : 404 ms ATRIAL FIBRILLATION ABNORMAL ECG WHEN COMPARED WITH ECG OF 02-NOV-2018 18:08, NO SIGNIFICANT CHANGE WAS FOUND Confirmed by Pedro Rodriguez ([id number]) on 06/04/2019 9:52:42 AM Referred By: Confirmed By:Pedro Rodriguez
--- NOTE | 2019-06-04 11:45 | HP ---
Admitting History and Physical - Primary Care Physician PCP: Luis Felipe Nagel - Admission Chief Complaint: cough/fever 3 days History of Present Illness: 53F PMH HTN, HLD, CAD, CHF, AF (Xarelto), COPD, Pulm HTN, IDDM, smoking presenting with increasing FERRER in setting of flu + dx on 06/01/19 (on day 3 tx). Pt has very frequent severe coughs productive w/ blood tinged mucus. influenza negative -PCP: Dr Saul - Past Medical History Cardiovascular: Yes: AFIB, HTN Pulmonary: Yes: Asthma, COPD ...LMP: 05/28/14 Psych: Yes: Anxiety Musculoskeletal: Yes: Chronic low back pain, Other (Other (right knee with healed scar, mild bilateral edema, stiffness, moves with difficulty)) Endocrine: Yes: Diabetes Mellitus - Smoking History Smoking history: Unknown if ever smoked Have you smoked in the past 12 months: Yes Aproximately how many cigarettes per day: 1 - Alcohol/Substance Use Hx Alcohol Use: No History of Substance Use: reports: None - Social History ADL: Independent History of Recent Travel: No Home Medications - Allergies Allergies/Adverse Reactions: Allergies Allergy/AdvReac Type Severity Reaction Status Date / Time amoxicillin trihydrate Allergy Intermediate Swelling Verified 06/04/19 05:52 [From Augmentin] potassium clavulanate Allergy Intermediate Swelling Verified 06/04/19 05:52 [From Augmentin] - Home Medications Home Medications: Ambulatory Orders Carvedilol 6.25 mg PO BID 11/02/18 Clopidogrel Bisulfate [Plavix] 75 mg PO DAILY 11/02/18 Digoxin [Lanoxin -] 0.25 mg PO DAILY 11/02/18 Losartan Potassium [Cozaar -] 50 mg PO DAILY 11/02/18 Pantoprazole Sodium [Protonix -] 20 mg PO DAILY 11/02/18 Rivaroxaban [Xarelto -] 20 mg PO DAILY 11/02/18 Spironolactone [Aldactone -] 25 mg PO DAILY #90 tablet 11/03/18 Physical Examination Vital Signs: Vital Signs Temperature 98.2 F 06/04/19 05:43 Pulse Rate 76 06/04/19 07:17 Respiratory Rate 21 H 06/04/19 07:17 Blood Pressure 132/84 06/04/19 07:17 O2 Sat by Pulse Oximetry (%) 97 06/04/19 07:17 Constitutional: Yes: No Distress HENT: Yes: Atraumatic Neck: Yes: Supple Cardiovascular: Yes: Regular Rate and Rhythm Respiratory: Yes: Rhonchi, Wheezes Gastrointestinal: Yes: Normal Bowel Sounds Extremities: Yes: WNL Edema: No Peripheral Pulses WNL: Yes Neurological: Yes: Alert, Oriented Labs: CBC, BMP 06/04/19 06:20 06/04/19 07:46 Problem List - Problems (1) Influenza Assessment/Plan: negative uri Code(s): J11.1 - FLU DUE TO UNIDENTIFIED INFLUENZA VIRUS W OTH RESP MANIFEST (2) SOB (shortness of breath) Assessment/Plan: duo nebs Code(s): R06.02 - SHORTNESS OF BREATH (3) Diabetes Assessment/Plan: insulin and bgms Code(s): E11.9 - TYPE 2 DIABETES MELLITUS WITHOUT COMPLICATIONS (4) Hyperlipidemia Assessment/Plan: on meds Code(s): E78.5 - HYPERLIPIDEMIA, UNSPECIFIED (5) Hypertension Assessment/Plan: on meds Code(s): I10 - ESSENTIAL (PRIMARY) HYPERTENSION (6) COPD (chronic obstructive pulmonary disease) Code(s): J44.9 - CHRONIC OBSTRUCTIVE PULMONARY DISEASE, UNSPECIFIED Assessment/Plan Laboratory Tests 06/04/19 06/04/19 06/04/19 06:20 06:20 06:23 WBC 6.3 RBC 4.07 Hgb 12.3 Hct 37.4 MCV 91.8 MCH 30.3 MCHC 33.0 RDW 14.4 Plt Count 185 MPV 10.2 D Absolute Neuts (auto) 4.2 Neutrophils % 67.5 D Lymphocytes % 18.7 D Monocytes % 9.5 Eosinophils % 2.3 Basophils % 2.0 D Nucleated RBC % 0 PT with INR 25.30 H INR 2.13 H Sodium Cancelled Potassium Cancelled Chloride Cancelled Carbon Dioxide Cancelled Anion Gap Cancelled BUN Cancelled Creatinine Cancelled Est GFR (CKD-EPI)AfAm Cancelled Est GFR (CKD-EPI)NonAf Cancelled Random Glucose Cancelled Calcium Cancelled Total Bilirubin Cancelled AST Cancelled ALT Cancelled Alkaline Phosphatase Cancelled Creatine Kinase Troponin I Cancelled B-Natriuretic Peptide Total Protein Cancelled Albumin Cancelled 06/04/19 06/04/19 06:23 07:46 WBC RBC Hgb Hct MCV MCH MCHC RDW Plt Count MPV Absolute Neuts (auto) Neutrophils % Lymphocytes % Monocytes % Eosinophils % Basophils % Nucleated RBC % PT with INR INR Sodium 139 Potassium 4.5 Chloride 109 H Carbon Dioxide 24 Anion Gap 6 L BUN 15.1 Creatinine 0.9 Est GFR (CKD-EPI)AfAm 84.61 Est GFR (CKD-EPI)NonAf 73.00 Random Glucose 201 H Calcium 8.9 Total Bilirubin 0.4 AST 45 H ALT 59 Alkaline Phosphatase 103 Creatine Kinase 121 Troponin I 0.05 B-Natriuretic Peptide 4881.1 H Total Protein 6.8 Albumin 3.2 L Active Medications Generic Name Dose Route Start Last Admin Trade Name Freq PRN Reason Stop Dose Admin Acetaminophen 650 mg 06/04/19 11:48 06/04/19 16:40 Tylenol - PO 650 mg Q6H PRN Administration FEVER Albuterol/Ipratropium 1 amp 06/04/19 11:49 Duoneb - NEB Q4H PRN SHORTNESS OF BREATH Carvedilol 6.25 mg 06/04/19 22:00 Coreg - PO BID [facility] Clopidogrel Bisulfate 75 mg 06/05/19 10:00 Plavix - PO DAILY [facility] Digoxin 0.25 mg 06/05/19 10:00 Lanoxin - PO DAILY [facility] Losartan Potassium 50 mg 06/05/19 10:00 Cozaar - PO DAILY [facility] Pantoprazole Sodium 20 mg 06/05/19 10:00 Protonix - PO DAILY [facility] Rivaroxaban 20 mg 06/05/19 18:00 Xarelto PO 1800 [facility] Spironolactone 25 mg 06/05/19 10:00 Aldactone - PO DAILY [facility]
[2019-06-04] MEDS ORDERED: ACETAMINOPHEN 325 MG TABLET (FP) PO PRN (11:48)
--- NOTE | 2019-06-04 14:31 | CON.ID ---
Consult Consult Specialty:: infectious diseases Referred by:: Reason for Consultation:: fever,weakness - History of Present Illness Chief Complaint: weakness History of Present Illness: 53F PMH HTN, HLD, CAD, CHF, AF (Xarelto), COPD, Pulm HTN, IDDM, smoking presenting with increasing FERRER in setting of flu + dx on 06/01/19 (on day 3 tx). Pt has very frequent severe coughs productive w/ blood tinged mucus. currently c/o of weakness and sob and not feeling too well - History Source History Provided By: Patient Limitations to Obtaining History: No Limitations - Past Medical History Cardio/Vascular: Yes: AFIB, HTN Pulmonary: Yes: Asthma, COPD ...LMP: 05/28/14 Psych: Yes: Anxiety Musculoskeletal: Yes: Chronic low back pain, Other (Other (right knee with healed scar, mild bilateral edema, stiffness, moves with difficulty)) Endocrine: Yes: Diabetes Mellitus - Alcohol/Substance Use Hx Alcohol Use: No History of Substance Use: reports: None - Smoking History Smoking history: Unknown if ever smoked Have you smoked in the past 12 months: Yes Aproximately how many cigarettes per day: 1 - Social History ADL: Independent History of Recent Travel: No Home Medications - Allergies Allergies/Adverse Reactions: Allergies Allergy/AdvReac Type Severity Reaction Status Date / Time amoxicillin trihydrate Allergy Intermediate Swelling Verified 06/04/19 05:52 [From Augmentin] potassium clavulanate Allergy Intermediate Swelling Verified 06/04/19 05:52 [From Augmentin] - Home Medications Home Medications: Ambulatory Orders RX: Carvedilol 6.25 mg PO BID 11/02/18 RX: Clopidogrel Bisulfate [Plavix] 75 mg PO DAILY 11/02/18 RX: Digoxin [Lanoxin -] 0.25 mg PO DAILY 11/02/18 RX: Losartan Potassium [Cozaar -] 50 mg PO DAILY 11/02/18 RX: Pantoprazole Sodium [Protonix -] 20 mg PO DAILY 11/02/18 RX: Rivaroxaban [Xarelto -] 20 mg PO DAILY 11/02/18 RX: Spironolactone [Aldactone -] 25 mg PO DAILY #90 tablet 11/03/18 Review of Systems - Review of Systems Constitutional: reports: Fever, Weakness Eyes: reports: No Symptoms HENT: reports: No Symptoms Neck: reports: No Symptoms Cardiovascular: reports: No Symptoms Respiratory: reports: Cough, SOB Gastrointestinal: reports: No Symptoms Genitourinary: reports: No Symptoms Musculoskeletal: reports: No Symptoms Integumentary: reports: No Symptoms Neurological: reports: No Symptoms Endocrine: reports: No Symptoms Hematology/Lymphatic: reports: No Symptoms Psychiatric: reports: No Symptoms Physical Exam Vital Signs: Vital Signs Temperature 98.2 F 06/04/19 05:43 Pulse Rate 76 06/04/19 11:45 Respiratory Rate 24 H 06/04/19 11:45 Blood Pressure 179/104 H 06/04/19 11:45 O2 Sat by Pulse Oximetry (%) 98 06/04/19 11:48 Constitutional: Yes: Well Nourished, Calm, Mild Distress Eyes: Yes: Conjunctiva Clear HENT: Yes: Atraumatic, Normocephalic Neck: Yes: Supple, Trachea Midline Cardiovascular: Yes: Regular Rate and Rhythm Respiratory: Yes: Regular, CTA Bilaterally Gastrointestinal: Yes: Normal Bowel Sounds, Soft Musculoskeletal: Yes: WNL Extremities: Yes: WNL Neurological: Yes: Alert, Oriented Psychiatric: Yes: Alert, Oriented Labs: CBC, BMP 06/04/19 06:20 06/04/19 07:46 Imaging - Results Chest X-ray: Report Reviewed, Image Reviewed Assessment/Plan Problem List - Problems (1) Influenza Code(s): J11.1 - FLU DUE TO UNIDENTIFIED INFLUENZA VIRUS W OTH RESP MANIFEST (2) SOB (shortness of breath) Code(s): R06.02 - SHORTNESS OF BREATH (3) Diabetes Code(s): E11.9 - TYPE 2 DIABETES MELLITUS WITHOUT COMPLICATIONS (4) Hyperlipidemia Code(s): E78.5 - HYPERLIPIDEMIA, UNSPECIFIED (5) Hypertension Code(s): I10 - ESSENTIAL (PRIMARY) HYPERTENSION (6) COPD (chronic obstructive pulmonary disease) Code(s): J44.9 - CHRONIC OBSTRUCTIVE PULMONARY DISEASE, UNSPECIFIED plan will hold off on any further mgmt await for all results hydration monitor for fevers rest as per the team
[2019-06-04] MEDS ORDERED: ACETAMINOPHEN 325 MG TABLET (FP) ONE (16:36)
[2019-06-04] MEDS: ALBUTEROL SO4 2.5/IPRATROPIUM 0.5 INH SOL 3 ML VIAL.NEB. NEB PRN (19:07)
[2019-06-04] MEDS ORDERED: SPIRONOLACTONE 25 MG TABLET (FP) PO SCH (21:55)
[2019-06-04] MEDS ORDERED: CARVEDILOL 3.125 MG TABLET (FP) PO SCH (22:00)
[2019-06-04] MEDS ORDERED: CARVEDILOL 3.125 MG TABLET (FP) ONE (22:35)
[2019-06-04] MEDS ORDERED: SPIRONOLACTONE 25 MG TABLET (FP) ONE (22:35)
[2019-06-04] MEDS: SPIRONOLACTONE 25 MG TABLET (FP) PO SCH (22:41)
[2019-06-05] MEDS ORDERED: ALBUTEROL SO4 2.5/IPRATROPIUM 0.5 INH SOL 3 ML VIAL.NEB. NEB ONE ×4 (01:40→16:04)
[2019-06-05] MEDS: INSULIN SLIDING SCALE (NOVOLOG) 1 VIAL SQ SCH ×4 (07:35→22:02)
--- NOTE | 2019-06-05 08:43 | PN ---
Progress Note (short form) - Note Progress Note: Last seen in my office 12/2018: PMH: NSTEMI w/ TnI 30, cath at [place] non-obstructive disease, prior cocaine abuse, NICM with EF < 30%, Severe PHTN, PAF. Was to follow up with EP at [place] for possible ICD but has missed several appointments since Dec. Full consult to follow, see Dr. Haas's note.
[2019-06-05] MEDS: LOSARTAN POTASSIUM 50 MG TABLET (FP) PO SCH (09:20)
[2019-06-05] MEDS: SPIRONOLACTONE 25 MG TABLET (FP) PO SCH (09:20)
[2019-06-05] MEDS: PANTOPRAZOLE 20 MG TABLET PO SCH (09:20)
[2019-06-05] MEDS: DIGOXIN 0.25 MG TABLET (FP) PO SCH (09:20)
[2019-06-05] MEDS: CARVEDILOL 6.25 MG TABLET (FP) PO SCH ×2 (09:20→22:02)
[2019-06-05] MEDS: CLOPIDOGREL BISULFATE 75 MG TABLET (FP) PO SCH (09:20)
[2019-06-05] MEDS: ALBUTEROL SO4 2.5/IPRATROPIUM 0.5 INH SOL 3 ML VIAL.NEB. NEB PRN ×3 (09:35→16:08)
[2019-06-05] MEDS ORDERED: SPIRONOLACTONE 25 MG TABLET (FP) PO SCH (10:00)
--- NOTE | 2019-06-05 11:17 | CON.CARD ---
Cardiology Consult (text) - Consultation Consultation Note: Consult Specialty:: Cardiology Referred by:: Medicine Reason for Consultation:: CHF - History of Present Illness Chief Complaint: shortness of breath, palpitations History of Present Illness: 53F h/o HTN, HLD, chronic systolic HF, DM p/w dyspnea, cough for the last week. Also had lower ext swelling in the last two days. Sees Dr. Oconnell for cardio, had prior admission with + cocaine, NSTEMI, found to have nonobstructive CAD on cath 10/2018. Was [place] [facility] [place]. In the last week she felt more cough, sob, saw her PCP and says she was treated for flu twice and didn't get better. Cough with blood tinged sputum. No chest pain, palps, dizziness, dyspnea. - Past Medical History Cardio/Vascular: Yes: HTN Pulmonary: Yes: Asthma, COPD Endocrine: Yes: Diabetes Mellitus - Alcohol/Substance Use Hx Alcohol Use: No - Smoking History Smoking history: Current every day smoker Have you smoked in the past 12 months: Yes Aproximately how many cigarettes per day: 10 Home Medications - Allergies Allergies/Adverse Reactions: Allergies Allergy/AdvReac Type Severity Reaction Status Date / Time amoxicillin trihydrate Allergy Intermediate Swelling Verified 06/04/19 05:52 [From Augmentin] potassium clavulanate Allergy Intermediate Swelling Verified 06/04/19 05:52 [From Augmentin] Ambulatory Orders Carvedilol 6.25 mg PO BID 11/02/18 Clopidogrel Bisulfate [Plavix] 75 mg PO DAILY 11/02/18 Digoxin [Lanoxin -] 0.25 mg PO DAILY 11/02/18 Losartan Potassium [Cozaar -] 50 mg PO DAILY 11/02/18 Pantoprazole Sodium [Protonix -] 20 mg PO DAILY 11/02/18 Rivaroxaban [Xarelto -] 20 mg PO DAILY 11/02/18 Spironolactone [Aldactone -] 25 mg PO DAILY #90 tablet 11/03/18 Family Disease History - Family Disease History Family Disease History: Diabetes: Sister (seven - ), Heart Disease: Sister, CA: Mother (), Respiratory: Sister, Other: Father (, etoh), Mother, Brother (four - one mental health problem), Sister, Son (five - asthma ), Daughter (one - healthy) Review of Systems - Review of Systems Constitutional: reports: No Symptoms Eyes: reports: No Symptoms HENT: reports: No Symptoms Neck: reports: No Symptoms Cardiovascular: reports: No Symptoms Respiratory: reports: No Symptoms Gastrointestinal: reports: No Symptoms Genitourinary: reports: No Symptoms Musculoskeletal: reports: No Symptoms Integumentary: reports: No Symptoms Neurological: reports: No Symptoms Endocrine: reports: No Symptoms Hematology/Lymphatic: reports: No Symptoms Psychiatric: reports: No Symptoms Vital Signs Period Temp Pulse Resp BP Sys/Khanna Pulse Ox Last 24 Hr 98.1 F 49-87 18-24 138-179/82-105 98-100 Constitutional: Yes: No Distress, Calm Eyes: Yes: Conjunctiva Clear, EOM Intact HENT: Yes: Atraumatic, Normocephalic Neck: Yes: Supple, Trachea Midline Respiratory: Yes: bibasilar rales Gastrointestinal: Yes: Normal Bowel Sounds, Soft Cardiovascular: Yes: Tachycardia JVD: No Carotid Bruit: No PMI: Non-Displaced Heart Sounds: Yes: S1, S2 Musculoskeletal: No: Back Pain Extremities: Yes: Cool Edema: Yes Edema: LLE: 1+, RLE: 1+ Peripheral Pulses WNL: Yes Peripheral Pulses: 2+ Left Doralis Pedis, 2+ Right Dorsalis Pedis Integumentary: No: Jaundice Neurological: Yes: Alert, Oriented Psychiatric: No: Agitated Assessment/Plan EKG: afib, nonspecific ST changes, stable compared to prior echo 10/2018 dilated LV, severe global hypokinesis, EF 15-20%, RV mildly reduced function, LA mod dilated, mild MAC, mild MR, mild TR, RVSP >40-50 mmHg dyspnea, cough - likely 2/2 flu, PNA - ID following - CHF component likely as well - also with worsening lower ext edema, BNP elevated compared to prior and orthopnea - IV lasix 40 mg x 1 acute on chronic systolic HF - IV lasix as above - monitor Cr, lytes, daily weights - cont metoprolol succinate 50 mg BID - cont spironolactone, benazepril Afib - cont metoprolol succinate 50 mg BID - cont xarelto HLD - cont statin DM - manage per primary HTN - monitor, cont home meds
[2019-06-05] MEDS ORDERED: FUROSEMIDE 40 MG/4 ML INJECTABLE VIAL IVPUSH ONE (11:21)
[2019-06-05] MEDS ORDERED: FUROSEMIDE 40 MG/4 ML INJECTABLE VIAL ONE (11:35)
[2019-06-05 12:26] LABS: BASO % 0.9 % (0-2.0); EOS % 0.3 % (0-4.5); HEMATOCRIT 35.5 % (32.4-45.2); HEMOGLOBIN 11.6 GM/dL (10.7-15.3); MCH 30.2 pg (25.7-33.7); MCHC 32.7 g/dl (32.0-36.0); MEAN CELL VOLUME 92.4 fl (80-96); MEAN PLT VOLUME 9.8 fl (7.5-11.1); MONO % 6.7 % (3.8-10.2); NEUT % 78.1 % (42.8-82.8); PLATELET COUNT 189 K/MM3 (134-434); RBC 3.84 M/mm3 (3.60-5.2); RDW 14.3 % (11.6-15.6); WHITE BLOOD COUNT 8.7 K/mm3 (4.0-10.0)
[2019-06-05 12:50] LABS: BLOOD UREA NITROGEN 25.3 mg/dL (7-18); CALCIUM 9.4 mg/dL (8.5-10.1); POTASSIUM 4.3 mmol/L (3.5-5.1)
[2019-06-05] MEDS ORDERED: VANCOMYCIN HCL 1,500 MG in DEXTROSE 5%-WATER - 500 ML IVPB SCH (14:15)
--- NOTE | 2019-06-05 16:53 | PN ---
Progress Note, Physician - Current Medication List Current Medications: Active Medications Acetaminophen (Tylenol -) 650 mg PO Q6H PRN PRN Reason: FEVER Last Admin: 06/04/19 16:40 Dose: 650 mg Albuterol/Ipratropium (Duoneb -) 1 amp NEB Q4H PRN PRN Reason: SHORTNESS OF BREATH Last Admin: 06/05/19 16:08 Dose: 1 amp Carvedilol (Coreg -) 6.25 mg PO BID [facility] Last Admin: 06/05/19 09:20 Dose: 6.25 mg Clopidogrel Bisulfate (Plavix -) 75 mg PO DAILY [facility] Last Admin: 06/05/19 09:20 Dose: 75 mg Digoxin (Lanoxin -) 0.25 mg PO DAILY [facility] Last Admin: 06/05/19 09:20 Dose: 0.25 mg Vancomycin HCl 1,500 mg/ (Dextrose) 500 mls @ 250 mls/hr IVPB Q24H [facility]; Protocol Last Admin: 06/05/19 15:34 Dose: 250 mls/hr Insulin Aspart (Novolog Vial Sliding Scale -) 1 vial SQ ACHS [facility]; Protocol Last Admin: 06/05/19 12:03 Dose: 6 units Losartan Potassium (Cozaar -) 50 mg PO DAILY [facility] Last Admin: 06/05/19 09:20 Dose: 50 mg Pantoprazole Sodium (Protonix -) 20 mg PO DAILY [facility] Last Admin: 06/05/19 09:20 Dose: 20 mg Rivaroxaban (Xarelto) 20 mg PO 1800 [facility] Spironolactone (Aldactone -) 25 mg PO DAILY [facility] Last Admin: 06/05/19 09:20 Dose: 25 mg - Objective Vital Signs: Vital Signs Temperature 98.1 F 06/04/19 13:52 Pulse Rate 76 06/05/19 15:05 Respiratory Rate 20 06/05/19 15:05 Blood Pressure 129/93 06/05/19 15:05 O2 Sat by Pulse Oximetry (%) 98 06/05/19 15:05 Constitutional: Yes: No Distress HENT: Yes: Atraumatic Neck: Yes: Supple Cardiovascular: Yes: Regular Rate and Rhythm Respiratory: Yes: CTA Bilaterally Gastrointestinal: Yes: Normal Bowel Sounds Extremities: Yes: WNL Neurological: Yes: Alert, Oriented Labs: CBC, BMP 06/05/19 12:09 06/05/19 12:09 INR, PTT INR 2.13 (0.83-1.09) H 06/04/19 06:20 Problem List - Problems (1) Influenza Assessment/Plan: negative uri Code(s): J11.1 - FLU DUE TO UNIDENTIFIED INFLUENZA VIRUS W OTH RESP MANIFEST (2) SOB (shortness of breath) Assessment/Plan: duo nebs Code(s): R06.02 - SHORTNESS OF BREATH (3) Diabetes Assessment/Plan: insulin and bgms Code(s): E11.9 - TYPE 2 DIABETES MELLITUS WITHOUT COMPLICATIONS (4) Hyperlipidemia Assessment/Plan: on meds Code(s): E78.5 - HYPERLIPIDEMIA, UNSPECIFIED (5) Hypertension Assessment/Plan: on meds Code(s): I10 - ESSENTIAL (PRIMARY) HYPERTENSION (6) COPD (chronic obstructive pulmonary disease) Code(s): J44.9 - CHRONIC OBSTRUCTIVE PULMONARY DISEASE, UNSPECIFIED
[2019-06-05] MEDS ORDERED: RIVAROXABAN 20 MG TABLET PO SCH (18:00)
[2019-06-05] MEDS ORDERED: CARVEDILOL 3.125 MG TABLET (FP) ONE (21:23)
--- NOTE | 2019-06-05 23:27 | HOSP ---
Subjective - Review of Symptoms Events since last encounter: Hospitalist Encounter Notified by the RN, that she sustained a needle stick while performing care to the patient. Per the RN she received verbal permission from the patient, for the patient to be tested for HIV. Order placed 00:20- Notified again by the RN, that the patient agreed to be tested for Hepatitis A, B and C Orders placed 00:25 Notified by the same RN that the patient is c/o SOB and dizziness, 20 minutes ago. Was asked to assess Pulmonary: Yes: Dyspnea Neurological: Yes: Other (Dizziness) Physical Examination Vital Signs: Vital Signs Temperature 97.4 F L 06/05/19 20:55 Pulse Rate 86 06/05/19 20:55 Respiratory Rate 20 06/05/19 20:55 Blood Pressure 133/93 06/05/19 20:55 O2 Sat by Pulse Oximetry (%) 99 06/05/19 20:55 Constitutional: Yes: Anxious, Mild Distress, Obese Eyes: Yes: WNL, Conjunctiva Clear, PERRL HENT: Yes: WNL, Atraumatic, Normocephalic Neck: Yes: WNL, Supple, Trachea Midline Cardiovascular: Yes: WNL, Regular Rate and Rhythm, S1, S2 Respiratory: Yes: Diminished, On Nasal O2, Rhonchi, SOB on Exertion, Wheezes Gastrointestinal: Yes: WNL, Normal Bowel Sounds, Soft, Abdomen, Obese ...Rectal Exam: Yes: Deferred Renal/: Yes: WNL Breast(s): Yes: WNL Musculoskeletal: Yes: WNL Extremities: Yes: WNL Edema: No Peripheral Pulses WNL: Yes Neurological: Yes: WNL, Alert, Oriented, Cran Nerves II-XII Intact ...Motor Strength: WNL Psychiatric: Yes: WNL, Alert, Oriented Labs: CBC, BMP 06/05/19 12:09 06/05/19 12:09 Hospitalist Encounter Outcome: patient completed neb treatment, reports breathing improved. mild scattered rhonchi noted. patient breathing non-labored- improved Patient denies lightheadedness or dizziness at present Will continue to monitor Critical Care Total Critical Care Time (in minutes): 32 Critical Care Statement: The care of this patient involved high complexity decision making to prevent further life threatening deterioration of the patient 's condition and/or to evaluate & treat vital organ system(s) failure or risk of failure.
[2019-06-06] MEDS: ALBUTEROL SO4 2.5/IPRATROPIUM 0.5 INH SOL 3 ML VIAL.NEB. NEB PRN (00:15)
[2019-06-06] MEDS ORDERED: ALBUTEROL SO4 2.5/IPRATROPIUM 0.5 INH SOL 3 ML VIAL.NEB. NEB ONE ×2 (04:24→09:27)
[2019-06-06 05:31] VITALS: TEMP 98.8
[2019-06-06] MEDS: INSULIN SLIDING SCALE (NOVOLOG) 1 VIAL SQ SCH ×2 (07:55→11:13)
[2019-06-06 08:10] VITALS: BP 150/88; PULSE 88
[2019-06-06] MEDS ORDERED: SPIRONOLACTONE 25 MG TABLET (FP) ONE (09:27)
[2019-06-06] MEDS: CARVEDILOL 6.25 MG TABLET (FP) PO SCH (09:28)
[2019-06-06] MEDS: LOSARTAN POTASSIUM 50 MG TABLET (FP) PO SCH (09:28)
[2019-06-06] MEDS: CLOPIDOGREL BISULFATE 75 MG TABLET (FP) PO SCH (09:29)
[2019-06-06] MEDS: PANTOPRAZOLE 20 MG TABLET PO SCH (09:29)
[2019-06-06] MEDS: DIGOXIN 0.25 MG TABLET (FP) PO SCH (09:29)
[2019-06-06] MEDS: SPIRONOLACTONE 25 MG TABLET (FP) PO SCH (09:34)
--- NOTE | 2019-06-06 10:51 | PN ---
Progress Note (short form) - Note Progress Note: s: no chest pain, palps, dizziness, dyspnea. says she is leaving AMA Current Medications Acetaminophen (Tylenol -) 650 mg PO Q6H PRN PRN Reason: FEVER Last Admin: 06/04/19 16:40 Dose: 650 mg Albuterol/Ipratropium (Duoneb -) 1 amp NEB Q4H PRN PRN Reason: SHORTNESS OF BREATH Last Admin: 06/06/19 00:15 Dose: 1 amp Carvedilol (Coreg -) 6.25 mg PO BID [facility] Last Admin: 06/06/19 09:28 Dose: 6.25 mg Clopidogrel Bisulfate (Plavix -) 75 mg PO DAILY [facility] Last Admin: 06/06/19 09:29 Dose: 75 mg Digoxin (Lanoxin -) 0.25 mg PO DAILY [facility] Last Admin: 06/06/19 09:29 Dose: 0.25 mg Furosemide (Lasix -) 40 mg PO DAILY [facility] Vancomycin HCl 1,500 mg/ (Dextrose) 500 mls @ 250 mls/hr IVPB Q24H [facility]; Protocol Last Admin: 06/05/19 15:34 Dose: 250 mls/hr Insulin Aspart (Novolog Vial Sliding Scale -) 1 vial SQ ACHS [facility]; Protocol Last Admin: 06/06/19 07:55 Dose: 4 units Losartan Potassium (Cozaar -) 50 mg PO DAILY [facility] Last Admin: 06/06/19 09:28 Dose: 50 mg Pantoprazole Sodium (Protonix -) 20 mg PO DAILY [facility] Last Admin: 06/06/19 09:29 Dose: 20 mg Rivaroxaban (Xarelto) 20 mg PO 1800 [facility] Last Admin: 06/05/19 18:19 Dose: 20 mg Spironolactone (Aldactone -) 25 mg PO DAILY [facility] Last Admin: 06/06/19 09:34 Dose: 25 mg Vital Signs Period Temp Pulse Resp BP Sys/Khanna Pulse Ox Last 24 Hr 97.4 F-98.8 F 76-88 16-22 122-150/73-93 97-100 Constitutional: Yes: No Distress, Calm Eyes: Yes: Conjunctiva Clear, EOM Intact HENT: Yes: Atraumatic, Normocephalic Neck: Yes: Supple, Trachea Midline Respiratory: Yes: bibasilar rales Gastrointestinal: Yes: Normal Bowel Sounds, Soft Cardiovascular: Yes: Tachycardia JVD: No Carotid Bruit: No PMI: Non-Displaced Heart Sounds: Yes: S1, S2 Musculoskeletal: No: Back Pain Extremities: Yes: Cool Edema: Yes Edema: LLE: 1+, RLE: 1+ Peripheral Pulses WNL: Yes Peripheral Pulses: 2+ Left Doralis Pedis, 2+ Right Dorsalis Pedis Integumentary: No: Jaundice Neurological: Yes: Alert, Oriented Psychiatric: No: Agitated Assessment/Plan EKG: afib, nonspecific ST changes, stable compared to prior echo 10/2018 dilated LV, severe global hypokinesis, EF 15-20%, RV mildly reduced function, LA mod dilated, mild MAC, mild MR, mild TR, RVSP >40-50 mmHg dyspnea, cough - likely 2/2 flu, PNA - ID following - CHF component likely as well - also with worsening lower ext edema, BNP elevated compared to prior and orthopnea - IV lasix 40 mg x 1, edema improving - patient states she is leaving the hospital against medical advice. Advised of risk of worsening dyspnea, , says she is leaving anyway and her son is coming to pick her up. has follow up planned with Dr. Oconnell acute on chronic systolic HF - received IV lasix as above, edema improving - resume PO lasix 40 mg daily - unclear if was taking at home - cont metoprolol succinate 50 mg BID - cont spironolactone, benazepril Afib - cont metoprolol succinate 50 mg BID - cont xarelto HLD - cont statin DM - manage per primary HTN - monitor, cont home meds CAD, NSTEMI - no signs ACS - cont plavix, statin, bb
[2019-06-06] MEDS ORDERED: FUROSEMIDE 40 MG TABLET (FP) PO SCH (11:00)
[2019-06-06] MEDS ORDERED: FUROSEMIDE 40 MG/4 ML INJECTABLE VIAL ONE (11:05)
[2019-06-06] MEDS ORDERED: FUROSEMIDE 40 MG TABLET (FP) ONE (11:06)
--- NOTE | 2019-06-06 11:34 | PN ---
Progress Note, Physician History of Present Illness: says she still is not feeling better generalized symptoms breathing off of oxygen - Objective Vital Signs: Vital Signs Temperature 98.8 F 06/06/19 05:05 Pulse Rate 88 06/06/19 08:08 Respiratory Rate 16 06/06/19 08:08 Blood Pressure 150/88 06/06/19 08:08 O2 Sat by Pulse Oximetry (%) 97 06/06/19 08:08 Constitutional: Yes: Calm, Mild Distress Cardiovascular: Yes: S1, S2 Respiratory: Yes: Regular, CTA Bilaterally Gastrointestinal: Yes: Normal Bowel Sounds, Soft Musculoskeletal: Yes: WNL Extremities: Yes: WNL Neurological: Yes: Alert, Oriented Psychiatric: Yes: Alert, Oriented Labs: CBC, BMP 06/05/19 12:09 06/05/19 12:09 INR, PTT INR 2.13 (0.83-1.09) H 06/04/19 06:20 Assessment/Plan Problem List - Problems (1) Influenza Code(s): J11.1 - FLU DUE TO UNIDENTIFIED INFLUENZA VIRUS W OTH RESP MANIFEST (2) SOB (shortness of breath) Code(s): R06.02 - SHORTNESS OF BREATH (3) Diabetes Code(s): E11.9 - TYPE 2 DIABETES MELLITUS WITHOUT COMPLICATIONS (4) Hyperlipidemia Code(s): E78.5 - HYPERLIPIDEMIA, UNSPECIFIED (5) Hypertension Code(s): I10 - ESSENTIAL (PRIMARY) HYPERTENSION (6) COPD (chronic obstructive pulmonary disease) Code(s): J44.9 - CHRONIC OBSTRUCTIVE PULMONARY DISEASE, UNSPECIFIED plan continue current mgmt monitor rest as per the team
--- NOTE | 2019-06-06 15:36 | EKG ---
Test Reason : Blood Pressure : / mmHG Vent. Rate : 081 BPM Atrial Rate : 147 BPM P-R Int : 000 ms QRS Dur : 100 ms QT Int : 360 ms P-R-T Axes : 000 076 217 degrees QTc Int : 418 ms ATRIAL FIBRILLATION ABNORMAL ECG Confirmed by MD OTILIO, KALYANI ([id number]) on 06/06/2019 3:36:34 PM Referred By: Confirmed By:KALYANI YAÑEZ MD
--- NOTE | 2019-06-06 17:07 | DS ---
Physical Examination Vital Signs: Vital Signs Temperature 98.8 F 06/06/19 05:05 Pulse Rate 88 06/06/19 08:08 Respiratory Rate 16 06/06/19 08:08 Blood Pressure 150/88 06/06/19 08:08 O2 Sat by Pulse Oximetry (%) 97 06/06/19 08:08 Labs: CBC, BMP 06/05/19 12:09 06/05/19 12:09 Discharge Summary Problems reviewed: Yes Reason For Visit: DYSPNEA ON EXERTION,SOB,INFLUENZA Condition: Stable - Instructions Disposition: AGAINST MEDICAL ADVICE - Home Medications Comprehensive Discharge Medication List: Ambulatory Orders Carvedilol 6.25 mg PO BID 11/02/18 Clopidogrel Bisulfate [Plavix] 75 mg PO DAILY 11/02/18 Digoxin [Lanoxin -] 0.25 mg PO DAILY 11/02/18 Losartan Potassium [Cozaar -] 50 mg PO DAILY 11/02/18 Pantoprazole Sodium [Protonix -] 20 mg PO DAILY 11/02/18 Rivaroxaban [Xarelto -] 20 mg PO DAILY 11/02/18 Spironolactone [Aldactone -] 25 mg PO DAILY #90 tablet 11/03/18 spoke to her on phone and told her risk of leaving and benefits of staying she didnt want to stay
[2019-06-07 18:07] LABS: HEP B CORE AB, TOT Negative (Negative)
== END 2019-06-06 11:20 | disposition left against medical advice (07) | DRG 113 ==
LOC: JER 05:40 → JERBED 08:48
PROVIDERS: ADMIT Internal Medicine; ATTEND Internal Medicine
DX: J11.1 Influenza due to unidentified influenza virus with other respiratory manifestations (principal); I11.0 Hypertensive heart disease with heart failure; I50.23 Acute on chronic systolic (congestive) heart failure; E78.5 Hyperlipidemia, unspecified; I25.10 Atherosclerotic heart disease of native coronary artery without angina pectoris; I48.91 Unspecified atrial fibrillation; J44.9 Chronic obstructive pulmonary disease, unspecified; I27.20 Pulmonary hypertension, unspecified; E11.9 Type 2 diabetes mellitus without complications; J98.11 Atelectasis; M54.5 Low back pain; R06.02 Shortness of breath; F31.9 Bipolar disorder, unspecified; E66.9 Obesity, unspecified; Z68.35 Body mass index [BMI] 35.0-35.9, adult; F41.9 Anxiety disorder, unspecified; I21.4 Non-ST elevation (NSTEMI) myocardial infarction
CPT/HCPCS: 36415; 71045-TC-FY; 80048; 80053; 80162; 82550; 82962; 83036; 83880; 84484; 85025; 85610; 86704; 86706; 86707; 86708; 86709; 86803; 87040; 87070; 87077; 87107; 87186; 87205; 87340; 87350; 87389; 87804; 93005; 93010; 99285-25

== ENCOUNTER 2019-10-13 06:45 | Inpatient (IN) | payer OTHER ==
--- NOTE | 2019-10-13 07:17 | PDOC ---
History of Present Illness - General History Source: Patient Exam Limitations: No Limitations - History of Present Illness Initial Comments: 53 year old female with known history of IDDM, asthma, obesity, hypertension, atrial fibrillation on Xarelto, history of aspergillosis, cocaine use, CHF with most recent EF at 30-35%, dyslipidemia presents to the emergency department with orthopnea at 3 am. Per the patient, she was at her usual state of health. She denies sodium overload, however had canned tuna made sandwich last night before bed. She states she awoke suddenly with SOB that resolved when sitting up. Per the patient, she has been compliant with her medications. Of note, she had two wounds on her leg (left leg distal posterior) PE: 2+ pitting edema bilaterally. crackles at bases decreased breath sounds wound on left leg posterior 2-3cm circumferential stage 1-2 ulcer in the right leg. <Bradly Rice - Last Filed: 10/13/19 11:53> <Jose Gonzalez - Last Filed: 10/13/19 12:02> - General Chief Complaint: Chest Pain Stated Complaint: CHEST PAIN/DIFF BREATHING Time Seen by Provider: 10/13/19 07:15 Past History - Medical History Asthma: Yes Cancer: No Cardiac Disorders: Yes (reduced ejection fraction of 23%, [place] 2019) CVA: No COPD: No CHF: Yes (with pulmonary HTN) Diabetes: Yes Disorders: No HTN: Yes Hypercholesterolemia: Yes Liver Disease: No Psychiatric Problems: Yes (bipolar) Seizures: No Thyroid Disease: No - Surgical History Cardiac Surgery: No Cholecystectomy: Yes Neurologic Surgery: No Orthopedic Surgery: Yes (left knee replacemet) - Immunization History Immunization Up to Date: Yes - Psycho-Social/Smoking History Smoking Status: No Smoking History: Current every day smoker Have you smoked in the past 12 months: Yes Number of Cigarettes Smoked Daily: 8 If you are a former smoker, when did you quit?: 2019 Information on smoking cessation initiated: No 'Breaking Loose' booklet given: 09/26/19 - Substance Abuse Hx (Audit-C & DAST Scrn) How often the patient has a drink containing alcohol: Monthly or less Number of drinks the patient has on a typical day: 1 or 2 Score: In Men: 4 or > Positive; In Women: 3 or > Positive: 1 Screen Result (Pos requires Nsg. Audit-10AR): Negative In the last yr the pt used illegal drug/Rx for NonMed reason: No Score: Yes response is considered Positive: 0 Screen Result (Positive result requires Nsg. DAST-10): Negative <Bradly Rice - Last Filed: 10/13/19 11:53> <Jose Gonzalez - Last Filed: 10/13/19 12:02> - Medical History Allergies/Adverse Reactions: Allergies Allergy/AdvReac Type Severity Reaction Status Date / Time amoxicillin trihydrate Allergy Intermediate Swelling Verified 10/13/19 06:55 [From Augmentin] potassium clavulanate Allergy Intermediate Swelling Verified 10/13/19 06:55 [From Augmentin] amoxicillin Allergy Verified 10/13/19 06:55 Home Medications: Ambulatory Orders Carvedilol 3.125 mg PO BID 11/02/18 Digoxin [Lanoxin -] 0.125 mg PO DAILY 11/02/18 Pantoprazole Sodium [Protonix -] 40 mg PO DAILY 11/02/18 Rivaroxaban [Xarelto -] 20 mg PO DAILY 11/02/18 Albuterol 0.083% Nebulizer Gabriella [Ventolin 0.083% Nebulizer Soln -] 1 amp NEB Q6H PRN 06/29/19 Ipratropium/Albuterol Sulfate [Combivent Respimat 20-100 Mcg] 4 gm IH QID PRN 06/29/19 Montelukast Sodium [Singulair] 10 mg PO HS 06/29/19 Insulin Aspart [Novolog] 16 units SQ TID 06/30/19 Loratadine 10 mg PO DAILY PRN 06/30/19 Magnesium Oxide [Magnesium Oxide 400] 400 mg PO DAILY 06/30/19 Cholecalciferol (Vitamin D3) [Vitamin D3 -] 50,000 unit PO WEEKLY 09/16/19 Clopidogrel Bisulfate [Clopidogrel] 75 mg PO DAILY 09/16/19 Fluticasone Propion/Salmeterol [Wixela 500-50 Inhub] 1 inhaler IN BID 09/16/19 Insulin Glargine,Hum.rec.anlog [Basaglar Kwikpen U-100] 30 unit SQ AM 09/16/19 Losartan Potassium [Cozaar -] 50 mg PO DAILY 09/17/19 Sacubitril/Valsartan [Entresto 24 mg-26 mg Tablet] 1 tab PO BID #60 tablet 09/20/19 Furosemide [Lasix] 60 mg PO DAILY #7 tablet 09/28/19 *Physical Exam - Vital Signs Last Vital Signs Temp Pulse Resp BP Pulse Ox 97.9 F 91 H 18 113/78 99 10/13/19 07:05 10/13/19 07:05 10/13/19 07:05 10/13/19 07:05 10/13/19 07:05 <Bradly Rice - Last Filed: 10/13/19 11:53> - Vital Signs Last Vital Signs Temp Pulse Resp BP Pulse Ox 97.9 F 82 20 115/82 99 10/13/19 07:05 10/13/19 08:04 10/13/19 08:04 10/13/19 08:04 10/13/19 08:04 <Jose Gonzalez - Last Filed: 10/13/19 12:02> ED Treatment Course - LABORATORY CBC & Chemistry Diagram: 10/13/19 07:21 10/13/19 07:21 - ADDITIONAL ORDERS Additional order review: Laboratory Results 10/13/19 10/13/19 10/13/19 10:22 07:21 07:21 PT with INR 16.10 H INR 1.36 H Sodium 139 Potassium 4.7 Chloride 109 H Carbon Dioxide 20 L Anion Gap 10 BUN 25.4 H Creatinine 1.1 Est GFR (CKD-EPI)AfAm 66.38 Est GFR (CKD-EPI)NonAf 57.27 Random Glucose 106 Calcium 9.5 Magnesium 1.7 L Total Bilirubin 0.6 AST 32 ALT 36 Alkaline Phosphatase 162 H Creatine Kinase 113 Troponin I 0.02 0.02 B-Natriuretic Peptide 3231.8 H Total Protein 6.8 Albumin 3.1 L 10/13/19 07:21 RBC 3.80 MCV 86.6 MCHC 31.9 L RDW 16.5 H MPV 8.9 Neutrophils % 80.6 D Lymphocytes % 14.3 D Monocytes % 4.2 Eosinophils % 0.0 D Basophils % 0.9 - RADIOLOGY Radiology Studies Ordered: Category Date Time Status DUPLEX VASCUL US-1 LEG [US] Stat Ultrasound 10/13/19 07:44 Completed - Medications Given in the ED: ED Medications Discontinued Medications Generic Name Dose Route Start Last Admin Trade Name Freq PRN Reason Stop Dose Admin Albuterol Sulfate 2 puff 10/13/19 10:16 10/13/19 10:23 Ventolin Hfa Inhaler - IH 10/13/19 10:17 2 puff ONCE ONE Administration Furosemide 40 mg 10/13/19 08:45 10/13/19 08:55 Lasix Injection - IVPUSH 10/13/19 08:46 40 mg ONCE ONE Administration Magnesium Oxide 400 mg 10/13/19 10:30 10/13/19 10:33 Mag-Ox - PO 10/13/19 10:31 400 mg ONCE ONE Administration Tramadol HCl 50 mg 10/13/19 07:47 10/13/19 07:57 Ultram - PO 10/13/19 07:48 50 mg ONCE ONE Administration <Jose Gonzalez - Last Filed: 10/13/19 12:02> Discharge <Bradly Rice - Last Filed: 10/13/19 11:53> - Discharge Information Problems reviewed: Yes - Admission Yes <Jose Gonzalez - Last Filed: 10/13/19 12:02> - Discharge Information Clinical Impression/Diagnosis: Congestive heart failure Qualifiers: Heart failure type: other Qualified Code(s): I50.9 - Heart failure, unspecified Condition: Guarded
[2019-10-13 07:40] LABS: BASO % 0.9 % (0-2.0); HEMATOCRIT 32.9 % (32.4-45.2); HEMOGLOBIN 10.5 GM/dL (10.7-15.3); LYMPH % 14.3 % (8-40); MCH 27.6 pg (25.7-33.7); MCHC 31.9 g/dl (32.0-36.0); MEAN CELL VOLUME 86.6 fl (80-96); MEAN PLT VOLUME 8.9 fl (7.5-11.1); MONO % 4.2 % (3.8-10.2); NEUT % 80.6 % (42.8-82.8); PLATELET COUNT 331 K/MM3 (134-434); RDW 16.5 % (11.6-15.6); WHITE BLOOD COUNT 6.1 K/mm3 (4.0-10.0)
--- NOTE | 2019-10-13 07:46 | PDOC ---
Attending Attestation - Resident Resident Name: Bradly Rice - ED Attending Attestation I have performed the following: I have examined & evaluated the patient, The case was reviewed & discussed with the resident, I agree w/resident's findings & plan, Exceptions are as noted - HPI HPI: 10/13/19 07:45 53y F hx of IDDM, asthma, htn, afib n xeralto, hx of aspergillosis, cocain use, chf (EF 30-35%), HL, presents with complaint of orthopnea. States she was fine yesterday, but in the middl eof ht enight, she felt SOB, sat up and felt better. Tried to go back to sleep but felt SOB again so called EMS. Pt deenies any asociated n/v, diaphoresis, cp, bd pain, back pain, fever/chills, cough, hemopysis. Notes that she has had midly increased kumari the past week. She notes has had increased leg swelling but looks slightly larger on the R leg thn the left which is knew. She does have a chronic ulcer on the L leg that is being followed by wound care. fiber optic splicer: daysi - Physicial Exam PE: 10/13/19 07:59 GENERAL: The patient is awake, alert, and fully oriented, Nontoxic - in no acute distress. HEAD: Normocephalic, atraumatic. EYES: extraocular movements intact, sclera anicteric, conjunctiva clear. ENT: Normal voice, Moist mucous membranes. NECK: Normal range of motion, supple LUNGS: scant rales at R base HEART: slightly irregular ABDOMEN: Soft, nontender, No guarding, no rebound. No CVA tenderness EXTREMITIES: Normal range of motion,bl LE edema (R>L), ulcer on L posterior lower calf with out discharge, surrounding erythema, induration, fluctuance. NEUROLOGICAL: No facial assymetry, Normal speech, moving all 4 ext spontaneously nd ysmmetically PSYCH: Normal mood, normal affect. SKIN: Warm, Dry, normal turgor, - Medical Decision Making 10/13/19 08:00 suspect CHF exacerbation will obtain labs to screen for ACS, metablic derangemen cxr to screen for acute pulm dz/pna 10/13/19 12:[address] womack accepted for admission for further mangement of chf Heart Score/ECG Review - ECG Impressions Comment:: 10/13/19 08:01 Twelve-lead EKG was performed and reviewed by me. Irregularly irregular Rate of 73 T wave inversions in the lateral leads Discharge - Discharge Information Problems reviewed: Yes Clinical Impression/Diagnosis: Congestive heart failure Qualifiers: Heart failure type: other Qualified Code(s): I50.9 - Heart failure, unspecified Condition: Stable Disposition: HOME - Follow up/Referral - Patient Discharge Instructions - Post Discharge Activity
[2019-10-13] MEDS ORDERED: traMADol HCL 50 MG TABLET PO ONE (07:47)
[2019-10-13] MEDS ORDERED: traMADol HCL 50 MG TABLET ONE (07:50)
[2019-10-13 08:04] LABS: INR 1.36 (0.83-1.09); PROTHROMBIN TIME (PATIENT) 16.1 SEC (9.7-13.0)
[2019-10-13 08:12] LABS: ALBUMIN 3.1 g/dl (3.4-5.0); BILIRUBIN,TOTAL 0.6 mg/dL (0.2-1); BLOOD UREA NITROGEN 25.4 mg/dL (7-18); CALCIUM 9.5 mg/dL (8.5-10.1); CREATININE 1.1 mg/dL (0.55-1.3); MAGNESIUM 1.7 mg/dL (1.8-2.4); N-TERMINAL BNP 3231.8 pg/ml (5-125); POTASSIUM 4.7 mmol/L (3.5-5.1); TOT PROT 6.8 g/dl (6.4-8.2)
[2019-10-13] MEDS ORDERED: FUROSEMIDE 40 MG/4 ML INJECTABLE VIAL IVPUSH ONE (08:45)
[2019-10-13] MEDS ORDERED: FUROSEMIDE 40 MG/4 ML INJECTABLE VIAL ONE (08:57)
[2019-10-13] MEDS ORDERED: ALBUTEROL SO4 HFA INHALER IH ONE ×2 (10:16→10:17)
[2019-10-13] MEDS ORDERED: MAGNESIUM OXIDE 400 MG TABLET (FP) PO ONE (10:30)
[2019-10-13] MEDS ORDERED: MAGNESIUM OXIDE 400 MG TABLET (FP) ONE (10:36)
[2019-10-13] MEDS ORDERED: PATIENT'S OWN MEDICATION (NON-FORMULARY) (Ipratropium/Albuterol Sulfate 4 GM) IH PRN (12:11)
[2019-10-13] MEDS ORDERED: LORATADINE 10 MG TABLET PO PRN (12:11)
[2019-10-13] MEDS ORDERED: CHOLECALCIFEROL (VIT D3) 1,000 UNIT (25 MCG) TABLET PO SCH (12:15)
--- NOTE | 2019-10-13 12:23 | HP ---
CHIEF COMPLAINT: Shortness of breath and swelling of the legs PCP: Dr. Vigil HISTORY OF PRESENT ILLNESS: 53y F hx of IDDM, asthma, htn, afib n xeralto, hx of aspergillosis, cocain use, chf (EF 30-35%), HL, presents with complaint of orthopnea. States she was fine yesterday, but in the middl eof ht enight, she felt SOB, sat up and felt better. Tried to go back to sleep but felt SOB again so called EMS. Pt deenies any asociated n/v, diaphoresis, cp, bd pain, back pain, fever/chills, cough, hemopysis. Notes that she has had midly increased kumari the past week. She notes has had increased leg swelling but looks slightly larger on the R leg thn the left which is knew. She does have a chronic ulcer on the L leg that is being followed by wound care. ER course was notable for: (1) multiple admissions to hospital (2) heart failure history (3) Recent Travel: No history of travel PAST MEDICAL HISTORY:53y F hx of IDDM, asthma, htn, afib n xeralto, hx of aspergillosis, cocain use, chf (EF 30-35%), HL, PAST SURGICAL HISTORY: Appendectomy Family history Mother of cancer unspecified age possibly at 60 years old she did not remember the type of cancer, father of some undetermined illness she does not remember Social History: Smoking 5 cigarettes a day with history of cocaine in the past no alcohol use Smoking: Alcohol: Drugs: Allergies amoxicillin trihydrate [From Augmentin] Allergy (Intermediate, Verified 10/13/19 06:55) Swelling potassium clavulanate [From Augmentin] Allergy (Intermediate, Verified 10/13/19 06:55) Swelling amoxicillin Allergy (Verified 10/13/19 06:55) HOME MEDICATIONS: Home Medications Medication Instructions Recorded Carvedilol 3.125 mg PO BID 11/02/18 Digoxin [Lanoxin -] 0.125 mg PO DAILY 11/02/18 Pantoprazole Sodium [Protonix -] 40 mg PO DAILY 11/02/18 Rivaroxaban [Xarelto -] 20 mg PO DAILY 11/02/18 Albuterol 0.083% Nebulizer Gabriella 1 amp NEB Q6H PRN 06/29/19 [Ventolin 0.083% Nebulizer Soln -] Ipratropium/Albuterol Sulfate 4 gm IH QID PRN 06/29/19 [Combivent Respimat 20-100 Mcg] Montelukast Sodium [Singulair] 10 mg PO HS 06/29/19 Insulin Aspart [Novolog] 16 units SQ TID 06/30/19 Loratadine 10 mg PO DAILY PRN 06/30/19 Magnesium Oxide [Magnesium Oxide 400 mg PO DAILY 06/30/19 400] Cholecalciferol (Vitamin D3) 50,000 unit PO WEEKLY 09/16/19 [Vitamin D3 -] Clopidogrel Bisulfate [Clopidogrel] 75 mg PO DAILY 09/16/19 Fluticasone Propion/Salmeterol 1 inhaler IN BID 09/16/19 [Wixela 500-50 Inhub] Insulin Glargine,Hum.rec.anlog 30 unit SQ AM 09/16/19 [Basaglar Kwikpen U-100] Losartan Potassium [Cozaar -] 50 mg PO DAILY 09/17/19 Sacubitril/Valsartan [Entresto 24 1 tab PO BID #60 tablet 09/20/19 mg-26 mg Tablet] Furosemide [Lasix] 60 mg PO DAILY #7 tablet 09/28/19 REVIEW OF SYSTEMS Head no headache no dizziness Ear nose throat no epistaxis Cardiovascular but shortness of breath present no chest pain Pulmonary no wheezing no coughing GI no abdominal pain Endocrine no history of diabetes hypothyroidism Neuro no history of stroke Dermatology skin wound Locomotor no history of joint pain Rest of review of systems are negative PHYSICAL EXAMINATION Vital Signs - 24 hr 10/13/19 10/13/19 10/13/19 06:56 07:05 07:42 Temperature 97.9 F Pulse Rate 80 Pulse Rate [ 91 H Right Radial] Respiratory 20 18 Rate Blood Pressure 127/86 Blood Pressure 113/78 [Left Arm] O2 Sat by Pulse 100 99 99 Oximetry (%) 10/13/19 08:04 Temperature Pulse Rate Pulse Rate [ 82 Right Radial] Respiratory 20 Rate Blood Pressure Blood Pressure 115/82 [Left Arm] O2 Sat by Pulse 99 Oximetry (%) GENERAL: Awake, alert, and fully oriented, in no acute distress. HEAD: Normal with no signs of trauma. EYES: Pupils equal, round and reactive to light, extraocular movements intact, sclera anicteric, conjunctiva clear. No lid lag. EARS, NOSE, THROAT: Ears normal, nares patent, oropharynx clear without exudates. Moist mucous membranes. NECK: Normal range of motion, supple without lymphadenopathy, JVD, or masses. LUNGS: Bibasilar rales HEART: Regular rate and rhythm, normal S1 and S2 without murmur, rub or gallop. ABDOMEN: Soft, nontender, not distended, normoactive bowel sounds, no guarding, no rebound, no masses. No hepatomegaly or splenomegaly. MUSCULOSKELETAL: Normal range of motion at all joints. No bony deformities or tenderness. No CVA tenderness. UPPER EXTREMITIES: 2+ pulses, warm, well-perfused. No cyanosis. No clubbing. No peripheral edema. LOWER EXTREMITIES: 2+ edema plus she has a nonhealing ulcer on her right lower leg with granulation tissue but no cellulitis and have scant purulent discharge. NEUROLOGICAL: Cranial nerves II-XII intact. Normal speech. Normal gait. PSYCHIATRIC: Cooperative. Good eye contact. Appropriate mood and affect. SKIN: Warm, dry, normal turgor, no rashes or lesions noted, normal capillary refill. Laboratory Results - last 24 hr 10/13/19 10/13/19 10/13/19 07:21 07:21 07:21 WBC 6.1 RBC 3.80 Hgb 10.5 L Hct 32.9 MCV 86.6 MCH 27.6 MCHC 31.9 L RDW 16.5 H Plt Count 331 D MPV 8.9 Absolute Neuts (auto) 4.9 Neutrophils % 80.6 D Lymphocytes % 14.3 D Monocytes % 4.2 Eosinophils % 0.0 D Basophils % 0.9 Nucleated RBC % 0 PT with INR 16.10 H INR 1.36 H Sodium 139 Potassium 4.7 Chloride 109 H Carbon Dioxide 20 L Anion Gap 10 BUN 25.4 H Creatinine 1.1 Est GFR (CKD-EPI)AfAm 66.38 Est GFR (CKD-EPI)NonAf 57.27 Random Glucose 106 Calcium 9.5 Magnesium 1.7 L Total Bilirubin 0.6 AST 32 ALT 36 Alkaline Phosphatase 162 H Creatine Kinase 113 Troponin I 0.02 B-Natriuretic Peptide 3231.8 H Total Protein 6.8 Albumin 3.1 L 10/13/19 10:22 WBC RBC Hgb Hct MCV MCH MCHC RDW Plt Count MPV Absolute Neuts (auto) Neutrophils % Lymphocytes % Monocytes % Eosinophils % Basophils % Nucleated RBC % PT with INR INR Sodium Potassium Chloride Carbon Dioxide Anion Gap BUN Creatinine Est GFR (CKD-EPI)AfAm Est GFR (CKD-EPI)NonAf Random Glucose Calcium Magnesium Total Bilirubin AST ALT Alkaline Phosphatase Creatine Kinase Troponin I 0.02 B-Natriuretic Peptide Total Protein Albumin EKG is unchanged image reviewed no ST-T wave changes, chest x-ray congestion ASSESSMENT/PLAN: 50-year-old female with past medical history of asthma atrial fibrillation heart failure hypertension coronary artery disease dyslipidemia IDDM acid reflux has multiple admissions to hospital also right leg wound Congestive heart failure will do troponin serial start her on Lasix IV 40 mg twice a day cardiac consult Will do digoxin level. Atrial fibrillation Continue Xarelto Diabetes continue her insulin with coverage Skin wound will do this daily dressing with bacitracin We will follow. DVT prophylaxis she is already on Xarelto Visit type - Emergency Visit Emergency Visit: Yes Care time: The patient presented to the Emergency Department on the above date and was hospitalized for further evaluation of their emergent condition. - New Patient This patient is new to me today: Yes Date on this admission: 10/13/19 - Critical Care Critical Care patient: No
[2019-10-13] MEDS ORDERED: BACITRACIN 15 GM TUBE TOPICAL OINTMENT TP ONE (12:24)
[2019-10-13] MEDS: FUROSEMIDE 40 MG/4 ML INJECTABLE VIAL IVPUSH SCH (13:12)
[2019-10-13] MEDS ORDERED: BACITRACIN 0.9 GM PACKET ONE (13:17)
[2019-10-13 15:45] VITALS: BMI 37.7
[2019-10-13] MEDS: INSULIN SLIDING SCALE (NOVOLOG) 1 VIAL SQ SCH ×2 (16:44→22:26)
--- NOTE | 2019-10-13 18:37 | EKG ---
Test Reason : Blood Pressure : / mmHG Vent. Rate : 073 BPM Atrial Rate : 070 BPM P-R Int : 000 ms QRS Dur : 096 ms QT Int : 414 ms P-R-T Axes : 000 055 186 degrees QTc Int : 456 ms ATRIAL FIBRILLATION NONSPECIFIC T WAVE ABNORMALITY ABNORMAL ECG Confirmed by MD OTILIO, KALYANI ([id number]) on 10/13/2019 6:36:54 PM Referred By: Confirmed By:KALYANI YAÑEZ MD
[2019-10-13] MEDS: traMADol HCL 50 MG TABLET PO PRN (19:07)
[2019-10-13] MEDS: MONTELUKAST NA 10 MG TABLET PO SCH (22:07)
[2019-10-13] MEDS: CARVEDILOL 3.125 MG TABLET (FP) PO SCH (22:07)
[2019-10-13] MEDS: BUDESONIDE/FORMETEROL FUMARATE 160/4.5 mcg INHALER IH SCH (22:51)
[2019-10-13] MEDS: SACUBITRIL/VALSARTAN 24 MG-26 MG TABLET PO SCH (22:51)
[2019-10-14] MEDS: traMADol HCL 50 MG TABLET PO PRN ×4 (01:08→23:11)
[2019-10-14] MEDS: FUROSEMIDE 40 MG/4 ML INJECTABLE VIAL IVPUSH SCH ×2 (06:10→14:34)
[2019-10-14] MEDS: INSULIN SLIDING SCALE (NOVOLOG) 1 VIAL SQ SCH ×4 (06:10→21:53)
[2019-10-14] MEDS: INSULIN (LEVEMIR) 100 UNITS/ML UNITS SQ SCH (06:11)
--- NOTE | 2019-10-14 08:06 | CON.CARD ---
Consult Consult Specialty:: cardio - History of Present Illness Chief Complaint: sob History of Present Illness: 53 F here with sob. noted PND in middle of the night prior to admission, resolved when sat up but returned when lay back down. also new unilateral pedal edema. Dr. Oconnell office notes reviewed: s/p NSTEMI 10/04 in the setting of cocaine use, TnI 30s, EF 20%. cath at [facility] showed subtotal occlusion OM1, mild disease elsewhere--medically managed. Plavix added to Xarelto which she was on for PAfib. RHC at that time with moderate elevation in wedge and mod-severe pulm HTN. meds at that time: carvedilol 3.125 bid, losartan 50, digoxin 0.125, plavix (x 12 mo post-CA), atorva 40, Xarelto 03/06 referred for ICD consult, saw EP at [facility]: plan was to proceed with implant, pt would schedule--not done meds at that time: carvedilol same, spirono 25, lasix 40 bid, Entresto 24-26 bid 06/07 treated for PNA, cultures grew aspergillus as of 07/05 visit she was on Entresto (? dose), no losartan PRESENTLY: notes swelling of tsai and ankle L leg. comes and goes since HF admit 2018, now present for at least 1 week or so no home weights does not think she's gained wt bc doesn't eat or snack much due to poor appetite from the cardiac meds she thinks. sob woke her form sleep on DOA. happened couple of months ago as well--did not come to hospital, went away on its own. but this time it happened 3x every time she lay back down so she got scared. doesn't recall if had this sx during [facility] HF admit last year.--sleeps with 5 pillows under her head since that time. NO CHEST PAIN didn't feel like her asthma (no cough or wheezing) used to urinate a lot after lasix 40 mg dose at home. taking bid but not urinating much for a while now urinated copiously after lasix 40 IV this morning. still had mild SOB overnight when trying to sleep. no Covid sx's of fevers/chills, cough, diarrhea, CP, HAs, + loss of sense of smell or taste x 4-5 years--no recent change +diffuse weakness for 2 wks no known Covid contacts + cigs NEVER COCAINE USED SINCE HER CA asthma since teenager: sx of coughing and sob, + audible wheezing PMH: as above - Past Medical History Cardio/Vascular: Yes: AFIB, CAD (NONOBSTRUCTIVE), CHF (EF 15-20%, with INC RVP,), HTN, Hyperlipdemia, Pulmonary Hypertension Pulmonary: Yes: Asthma, COPD, Sleep Apnea (LIKLEY BUT NEVER TESTED) ...LMP: 05/28/14 ...LMP Comment: 5 yrs ago ...: No Psych: Yes: Anxiety Musculoskeletal: Yes: Chronic low back pain, Other (Other (right knee with healed scar, mild bilateral edema, stiffness, moves with difficulty)) Endocrine: Yes: Diabetes Mellitus - Past Surgical History Past Surgical History: Yes: Cholecystectomy, (3), Joint Replacement (LEFT KNEE) - Alcohol/Substance Use Hx Alcohol Use: No History of Substance Use: reports: Cocaine - Smoking History Smoking history: Current every day smoker Have you smoked in the past 12 months: Yes Aproximately how many cigarettes per day: 8 If you are a former smoker, when did you quit?: 2019 - Social History ADL: Independent History of Recent Travel: No Home Medications - Allergies Allergies/Adverse Reactions: Allergies Allergy/AdvReac Type Severity Reaction Status Date / Time amoxicillin trihydrate Allergy Intermediate Swelling Verified 10/13/19 06:55 [From Augmentin] potassium clavulanate Allergy Intermediate Swelling Verified 10/13/19 06:55 [From Augmentin] amoxicillin Allergy Verified 10/13/19 06:55 - Home Medications Home Medications: Ambulatory Orders Carvedilol 3.125 mg PO BID 11/02/18 Digoxin [Lanoxin -] 0.125 mg PO DAILY 11/02/18 Pantoprazole Sodium [Protonix -] 40 mg PO DAILY 11/02/18 Rivaroxaban [Xarelto -] 20 mg PO DAILY 11/02/18 Albuterol 0.083% Nebulizer Gabriella [Ventolin 0.083% Nebulizer Soln -] 1 amp NEB Q6H PRN 06/29/19 Ipratropium/Albuterol Sulfate [Combivent Respimat 20-100 Mcg] 4 gm IH QID PRN 06/29/19 Montelukast Sodium [Singulair] 10 mg PO HS 06/29/19 Insulin Aspart [Novolog] 16 units SQ TID 06/30/19 Loratadine 10 mg PO DAILY PRN 06/30/19 Magnesium Oxide [Magnesium Oxide 400] 400 mg PO DAILY 06/30/19 Cholecalciferol (Vitamin D3) [Vitamin D3 -] 50,000 unit PO WEEKLY 09/16/19 Clopidogrel Bisulfate [Clopidogrel] 75 mg PO DAILY 09/16/19 Fluticasone Propion/Salmeterol [Wixela 500-50 Inhub] 1 inhaler IN BID 09/16/19 Insulin Glargine,Hum.rec.anlog [Basaglar Kwikpen U-100] 30 unit SQ AM 09/16/19 Losartan Potassium [Cozaar -] 50 mg PO DAILY 09/17/19 Sacubitril/Valsartan [Entresto 24 mg-26 mg Tablet] 1 tab PO BID #60 tablet 09/20/19 Furosemide [Lasix] 60 mg PO DAILY #7 tablet 09/28/19 Family Medical History Family History: Denies (no known cmp) Review of Systems - Review of Systems Constitutional: denies: Chills, Fever Eyes: denies: Eye Pain HENT: denies: Nasal Congestion Neck: denies: Stiffness Cardiovascular: reports: Shortness of Breath. denies: Palpitations Respiratory: denies: Cough, Wheezing Gastrointestinal: denies: Diarrhea, Rectal Bleeding Genitourinary: denies: Burning, Hematuria Musculoskeletal: denies: Muscle Pain Integumentary: denies: Rash Neurological: denies: Numbness, Seizure, Syncope Endocrine: denies: Excessive Sweating Hematology/Lymphatic: denies: Excessive Bleeding Vital Signs: Vital Signs Temperature 97.5 F L 10/14/19 06:00 Pulse Rate 88 10/14/19 06:00 Respiratory Rate 20 10/14/19 06:00 Blood Pressure 125/86 10/14/19 06:00 O2 Sat by Pulse Oximetry (%) 100 10/13/19 21:00 Constitutional: Yes: Well Nourished, No Distress, Obese Eyes: No: Sclera Icterus HENT: No: Nasal Congestion Neck: No: Decreased ROM Respiratory: Yes: CTA Bilaterally. No: Accessory Muscle Use Gastrointestinal: Yes: Normal Bowel Sounds. No: Distention, Hepatomegaly, Palpable Mass, Tenderness Cardiovascular: Yes: Regular Rate and Rhythm JVD: Yes Carotid Bruit: No PMI: Non-Displaced Heart Sounds: Yes: S1, S2. No: Gallop Murmur: No: Systolic Murmur, Diastolic Murmur Musculoskeletal: Yes: Other (No kyphosis) Extremities: No: Cool, Cyanosis Edema: Yes (1+ to knees) Peripheral Pulses: 2+ Left Carotid, 2+ Right Carotid, 2+ Left Doralis Pedis, 2+ Right Dorsalis Pedis Integumentary: No: Jaundice Neurological: Yes: Alert, Oriented (x3) Psychiatric: No: Agitated - Other Data Labs, Other Data: CBC, BMP 10/13/19 07:21 10/13/19 07:21 INR, PTT INR 1.36 (0.83-1.09) H 10/13/19 07:21 Troponin, BNP 10/13/19 10/13/19 10/13/19 07:21 10:22 13:00 Troponin I 0.02 0.02 < 0.02 B-Natriuretic Peptide 3231.8 H Troponin, BNP 10/13/19 10/13/19 10/13/19 07:21 10:22 13:00 Troponin I 0.02 0.02 < 0.02 B-Natriuretic Peptide 3231.8 H Assessment/Plan Echo 12/04: mild LVE/mild conc LVH. severely reduced LVEF 25-30%. nl RV. mod LAE. valve fxn WNL. RVSP 50-60 L/RHC 10/04: wedge 25, PA 60/25. subtotal OM1 treated medically. mild dz elsewhere CXR: possible new mild pulm vascular congestion; lungs clear, no effusions ECG: AF, nonsp TWAs--no signif change vs priors acute syst CHF unilateral pedal edema: -sx's not c/w her prior asthma -BNP 3200 (range 5824-7006), CXR clear. + volume overload on exam. -wt up 254 here, from 239 office (07/05), denies caloric indiscretion at home -loss of efficacy to lasix 40 po bid at home noted--good response to 40 IV dose here -cont lasix 40 IV BID, monitor wt trend if standing scale measurements available -observe for improvement in orthopnea/PND sx's (chronic 5 pillow orthopnea, new PND on DOA ongoing here on first night) -replete K/Mg to > 4/2 -cont home carvedilol 3.125 bid, Entresto 24-26 bid, spironolactone 25 qd--if K stable, will incr spirono dose -Covid 19 PCR pending -trop neg x 3 syst CHF: -secondary to cocaine abuse previously, now abstinent -was referred to EP for primary prevn ICD 03/06--pt states she is still waiting to be scheduled, will arrange as outpt with Dr Birmingham at [facility] [place] CAD s/p NSTEMI: -Type II CA sec to cocaine use suspected 10/04, subtotal OM occlusion treated medically at that time -now s/p 12 mo of Plavix therapy--d/c as pt also on NOAC -no angina, trop.s neg persistent AFib: -HR controlled, cont carvedilol low dose, digoxin (check level) -cont Xarelto for AC
[2019-10-14] MEDS: MAGNESIUM OXIDE 400 MG TABLET (FP) PO SCH (09:42)
[2019-10-14] MEDS: SPIRONOLACTONE 25 MG TABLET PO SCH (09:42)
[2019-10-14] MEDS: CARVEDILOL 3.125 MG TABLET (FP) PO SCH ×2 (09:42→21:52)
[2019-10-14] MEDS: PANTOPRAZOLE 20 MG TABLET PO SCH (09:42)
[2019-10-14] MEDS: RIVAROXABAN 20 MG TABLET PO SCH (09:42)
[2019-10-14] MEDS: SACUBITRIL/VALSARTAN 24 MG-26 MG TABLET PO SCH ×2 (09:43→21:52)
[2019-10-14] MEDS: DIGOXIN 0.125 MG TABLET (FP) PO SCH (09:43)
[2019-10-14] MEDS: BUDESONIDE/FORMETEROL FUMARATE 160/4.5 mcg INHALER IH SCH ×2 (09:45→21:52)
[2019-10-14] MEDS ORDERED: CLOPIDOGREL BISULFATE 75 MG TABLET (FP) PO SCH (10:00)
[2019-10-14 10:26] LABS: BASO % 1.7 % (0-2.0); EOS % 1.6 % (0-4.5); HEMATOCRIT 34.5 % (32.4-45.2); HEMOGLOBIN 10.7 GM/dL (10.7-15.3); LYMPH % 33.9 % (8-40); MCH 26.8 pg (25.7-33.7); MCHC 31.1 g/dl (32.0-36.0); MEAN CELL VOLUME 86.4 fl (80-96); NEUT % 52.8 % (42.8-82.8); PLATELET COUNT 326 K/MM3 (134-434); RBC 3.99 M/mm3 (3.60-5.2); RDW 16.6 % (11.6-15.6); WHITE BLOOD COUNT 7.3 K/mm3 (4.0-10.0)
--- NOTE | 2019-10-14 10:33 | PN ---
Physical Exam: SUBJECTIVE: Patient seen and examined. OBJECTIVE: Patient is a 52 year old female with a past medical history of hypertension, HLD, diabetes, afib n xeralto, hx of aspergillosis, cocaine use, chf (EF 30- 35%). She presents to the ED with complaints of orthopnea. Notes that she has had mildly increased dyspnea in the past week. She notes has had increased leg swelling but looks slightly larger on the right leg then the left which is new. She does have a chronic ulcer on the left leg that is being followed by wound care. Period Temp Pulse Resp BP Sys/Khanna Pulse Ox Last 24 Hr 97.4 F-98.2 F 82-90 16-22 112-125/56-86 100-100 GENERAL: The patient is awake, alert, and fully oriented, in no acute distress. HEAD: Normal with no signs of trauma. EYES: PERRL, extraocular movements intact, sclera anicteric, conjunctiva clear. No ptosis. ENT: Ears normal, nares patent, oropharynx clear without exudates, moist mucous membranes. NECK: Trachea midline, full range of motion, supple. LUNGS: Breath sounds equal, diminished to auscultation bilaterally, no wheezes HEART: Regular rate and rhythm, S1, S2 without murmur, rub or gallop. ABDOMEN: Soft, nontender, nondistended, normoactive bowel sounds, no guarding EXTREMITIES: 2+ pulses, warm, well-perfused, no edema. NEUROLOGICAL: Normal speech, gait not observed. PSYCH: Normal mood, normal affect. SKIN: Warm, dry, normal turgor, no rashes or lesions noted Laboratory Results - last 24 hr 10/13/19 10/13/19 10/13/19 10:22 13:00 16:30 WBC RBC Hgb Hct MCV MCH MCHC RDW Plt Count MPV Absolute Neuts (auto) Neutrophils % Lymphocytes % Monocytes % Eosinophils % Basophils % Nucleated RBC % POC Glucometer 193 Creatine Kinase 126 Troponin I 0.02 < 0.02 10/13/19 10/14/19 10/14/19 22:18 05:35 10:05 WBC 7.3 RBC 3.99 Hgb 10.7 Hct 34.5 MCV 86.4 MCH 26.8 MCHC 31.1 L RDW 16.6 H Plt Count 326 MPV 9.0 Absolute Neuts (auto) 3.9 Neutrophils % 52.8 D Lymphocytes % 33.9 D Monocytes % 10.0 D Eosinophils % 1.6 D Basophils % 1.7 Nucleated RBC % 1 H POC Glucometer 233 204 Creatine Kinase Troponin I Active Medications Generic Name Dose Route Start Last Admin Trade Name Freq PRN Reason Stop Dose Admin Acetaminophen 650 mg 10/13/19 19:00 Tylenol - PO Q6H PRN PAIN LEVEL 1-5 Budesonide/Formoterol Fumarate 2 puff 10/13/19 22:00 10/14/19 09:45 Symbicort 160/4.5mcg - IH 2 puff BID SOREN Administration Carvedilol 3.125 mg 10/13/19 22:00 10/14/19 09:42 Coreg - PO 3.125 mg BID SOREN Administration Digoxin 0.125 mg 10/14/19 10:00 10/14/19 09:43 Lanoxin - PO 0.125 mg DAILY SOREN Administration Furosemide 40 mg 10/13/19 14:00 10/14/19 06:10 Lasix Injection - IVPUSH 40 mg BIDLASIX SOREN Administration Insulin Aspart 1 vial 10/13/19 16:30 10/14/19 06:10 Novolog Vial Sliding Scale - SQ 4 units ACHS SOREN Administration Protocol Insulin Detemir 30 units 10/14/19 07:00 10/14/19 06:11 Levemir Vial SQ 30 units AM SOREN Administration Loratadine 10 mg 10/13/19 12:11 10/13/19 22:07 Claritin - PO 10 mg DAILY PRN Administration ALLERGIES Magnesium Oxide 400 mg 10/14/19 10:00 10/14/19 09:42 Mag-Ox - PO 400 mg DAILY SOREN Administration Montelukast Sodium 10 mg 10/13/19 22:00 10/13/19 22:07 Singulair - PO 10 mg HS SOREN Administration Non-Formulary Medication 4 gm 10/13/19 12:11 Ipratropium/Albuterol Sulfate IH QID PRN SHORT OF BREATH/WHEEZING Pantoprazole Sodium 40 mg 10/14/19 10:00 10/14/19 09:42 Protonix - PO 40 mg DAILY SOREN Administration Rivaroxaban 20 mg 10/14/19 10:00 10/14/19 09:42 Xarelto PO 20 mg DAILY SOREN Administration Sacubitril/Valsartan 1 tab 10/13/19 22:00 10/14/19 09:43 Entresto 24 Mg-26 Mg Tablet PO 1 tab BID SOREN Administration Spironolactone 25 mg 10/14/19 10:00 10/14/19 09:42 Aldactone - PO 25 mg DAILY SOREN Administration Tramadol HCl 50 mg 10/13/19 19:00 10/14/19 08:00 Ultram - PO 50 mg Q6H PRN Administration PAIN LEVEL 1-5 ASSESSMENT/PLAN: Problem List - Problems (1) Acute systolic congestive heart failure Assessment/Plan: patient with worsening shortness of breath over one week with orthopnea (sleeps with 5 pillows). notes worsening lower ext edema. bnp 3200. currently tolerating room air, no distress noted on lasix 40mg iv bid on carvedilol 3.125 bid, Entresto 24-26 bid, spironolactone 25 qd monitor intake output and daily weights cardiology following Code(s): I50.21 - ACUTE SYSTOLIC (CONGESTIVE) HEART FAILURE (2) Atrial fibrillation Assessment/Plan: on coreq bid, digoxin (levels pending), xarelto Code(s): I48.91 - UNSPECIFIED ATRIAL FIBRILLATION (3) Bilateral lower extremity edema Assessment/Plan: bilateral lower ext wounds, receives treatment at wound care vascular study limited due to poor view of veins and due to soft tissue edema she is on xarelto Code(s): R60.0 - LOCALIZED EDEMA (4) CAD (coronary artery disease) Code(s): I25.10 - ATHSCL HEART DISEASE OF [place] CORONARY ARTERY W/O ANG PCTRS (5) Diabetes Assessment/Plan: on novolog, monitor bgms [id number] in a.m. Code(s): E11.9 - TYPE 2 DIABETES MELLITUS WITHOUT COMPLICATIONS (6) Morbid obesity Code(s): E66.01 - MORBID (SEVERE) OBESITY DUE TO EXCESS CALORIES (7) Prophylactic measure Assessment/Plan: fen no ivf, patient on lasix monitor electrolytes while on lasix low salt/diabetic diet on xarelto full code Code(s): Z29.9 - ENCOUNTER FOR PROPHYLACTIC MEASURES, UNSPECIFIED Visit type - Emergency Visit Emergency Visit: Yes ED Registration Date: 10/13/19 Care time: The patient presented to the Emergency Department on the above date and was hospitalized for further evaluation of their emergent condition. - New Patient This patient is new to me today: Yes Date on this admission: 10/14/19 - Critical Care Critical Care patient: No - Discharge Referral Referred to [facility] Med [facility] No
[2019-10-14 10:45] LABS: ALBUMIN 3.1 g/dl (3.4-5.0); BILIRUBIN,TOTAL 0.5 mg/dL (0.2-1); BLOOD UREA NITROGEN 32.2 mg/dL (7-18); CALCIUM 9.7 mg/dL (8.5-10.1); CREATININE 1.2 mg/dL (0.55-1.3); MAGNESIUM 1.7 mg/dL (1.8-2.4); POTASSIUM 4.2 mmol/L (3.5-5.1); TOT PROT 6.7 g/dl (6.4-8.2)
[2019-10-14] MEDS ORDERED: INSULIN (NOVOLOG) ASPART 100 UNITS/ML 10ML VIAL ONE (11:28)
[2019-10-14] MEDS ORDERED: PT OWN MED DRAWER 7, Y5N ONE (21:25)
[2019-10-14] MEDS: MONTELUKAST NA 10 MG TABLET PO SCH (21:52)
[2019-10-14] MEDS ORDERED: oxyCODONE HCL 5 MG TABLET PO ONE (22:56)
[2019-10-14] MEDS: ACETAMINOPHEN 325 MG TABLET (FP) PO PRN (23:08)
[2019-10-15] MEDS ORDERED: INSULIN (NOVOLOG) ASPART 100 UNITS/ML 10ML VIAL ONE (06:03)
[2019-10-15] MEDS: INSULIN (LEVEMIR) 100 UNITS/ML UNITS SQ SCH (06:09)
[2019-10-15] MEDS: INSULIN SLIDING SCALE (NOVOLOG) 1 VIAL SQ SCH ×4 (06:09→21:33)
[2019-10-15] MEDS: FUROSEMIDE 40 MG/4 ML INJECTABLE VIAL IVPUSH SCH ×2 (06:09→15:02)
[2019-10-15] MEDS ORDERED: ALBUTEROL SO4 2.5/IPRATROPIUM 0.5 INH SOL 3 ML VIAL.NEB. NEB PRN (08:28)
[2019-10-15] MEDS ORDERED: PT OWN MED DRAWER 7, Y5N ONE ×2 (09:11→20:36)
[2019-10-15] MEDS: traMADol HCL 50 MG TABLET PO PRN ×2 (09:15→21:32)
[2019-10-15] MEDS: PANTOPRAZOLE 20 MG TABLET PO SCH (09:16)
[2019-10-15] MEDS: SPIRONOLACTONE 25 MG TABLET PO SCH (09:16)
[2019-10-15] MEDS: MAGNESIUM OXIDE 400 MG TABLET (FP) PO SCH (09:16)
[2019-10-15] MEDS: CARVEDILOL 3.125 MG TABLET (FP) PO SCH ×2 (09:16→21:32)
[2019-10-15] MEDS: RIVAROXABAN 20 MG TABLET PO SCH (09:16)
[2019-10-15] MEDS: DIGOXIN 0.125 MG TABLET (FP) PO SCH (09:17)
[2019-10-15] MEDS: SACUBITRIL/VALSARTAN 24 MG-26 MG TABLET PO SCH ×2 (09:18→21:53)
[2019-10-15] MEDS: BUDESONIDE/FORMETEROL FUMARATE 160/4.5 mcg INHALER IH SCH ×2 (09:18→21:37)
[2019-10-15 11:24] LABS: EOS % 2.1 % (0-4.5); HEMOGLOBIN 11.5 GM/dL (10.7-15.3); LYMPH % 36.7 % (8-40); MCH 26.6 pg (25.7-33.7); MEAN CELL VOLUME 85.8 fl (80-96); MEAN PLT VOLUME 8.7 fl (7.5-11.1); MONO % 10.2 % (3.8-10.2); PLATELET COUNT 342 K/MM3 (134-434); RBC 4.32 M/mm3 (3.60-5.2); RDW 16.7 % (11.6-15.6); WHITE BLOOD COUNT 6.3 K/mm3 (4.0-10.0)
--- NOTE | 2019-10-15 11:31 | PN ---
Progress Note (short form) - Note Progress Note: s: no cp palps, sob/le edema improving Current Medications Generic Name Dose Route Start Last Admin Trade Name Freq PRN Reason Stop Dose Admin Acetaminophen 650 mg 10/13/19 19:00 10/14/19 23:08 Tylenol - PO 650 mg Q6H PRN Administration PAIN LEVEL 1-5 Albuterol/Ipratropium 1 amp 10/15/19 08:28 Duoneb - NEB Q6H PRN SHORTNESS OF BREATH Budesonide/Formoterol Fumarate 2 puff 10/13/19 22:00 10/15/19 09:18 Symbicort 160/4.5mcg - IH 2 puff BID SOREN Administration Carvedilol 3.125 mg 10/13/19 22:00 10/15/19 09:16 Coreg - PO 3.125 mg BID SOREN Administration Digoxin 0.125 mg 10/14/19 10:00 10/15/19 09:17 Lanoxin - PO 0.125 mg DAILY SOREN Administration Furosemide 40 mg 10/13/19 14:00 10/15/19 06:09 Lasix Injection - IVPUSH 40 mg BIDLASIX SOREN Administration Insulin Aspart 1 vial 10/13/19 16:30 10/15/19 06:09 Novolog Vial Sliding Scale - SQ Not Given ACHS [facility] Protocol Insulin Detemir 30 units 10/14/19 07:00 10/15/19 06:09 Levemir Vial SQ 30 units AM SOREN Administration Loratadine 10 mg 10/13/19 12:11 10/13/19 22:07 Claritin - PO 10 mg DAILY PRN Administration ALLERGIES Magnesium Oxide 400 mg 10/14/19 10:00 10/15/19 09:16 Mag-Ox - PO 400 mg DAILY SOREN Administration Montelukast Sodium 10 mg 10/13/19 22:00 10/14/19 21:52 Singulair - PO 10 mg HS SOREN Administration Pantoprazole Sodium 40 mg 10/14/19 10:00 10/15/19 09:16 Protonix - PO 40 mg DAILY SOREN Administration Rivaroxaban 20 mg 10/14/19 10:00 10/15/19 09:16 Xarelto PO 20 mg DAILY SOREN Administration Sacubitril/Valsartan 1 tab 10/13/19 22:00 10/15/19 09:18 Entresto 24 Mg-26 Mg Tablet PO 1 tab BID SOREN Administration Spironolactone 25 mg 10/14/19 10:00 10/15/19 09:16 Aldactone - PO 25 mg DAILY SOREN Administration Tramadol HCl 50 mg 10/13/19 19:00 10/15/19 09:15 Ultram - PO 50 mg Q6H PRN Administration PAIN LEVEL 1-5 Vital Signs Period Temp Pulse Resp BP Sys/Khanna Pulse Ox Last 24 Hr 97.4 F-99.3 F 68-94 18-20 108-123/46-92 94-100 Constitutional: Yes: Well Nourished, No Distress, Obese Eyes: No: Sclera Icterus Respiratory: Yes: CTA Bilaterally. No: Accessory Muscle Use Gastrointestinal: Yes: Normal Bowel Sounds. No: Distention, Hepatomegaly, Palpable Mass, Tenderness Cardiovascular: Yes: Regular Rate and Rhythm JVD: Yes Heart Sounds: Yes: S1, S2. No: Gallop Murmur: No: Systolic Murmur, Diastolic Murmur Musculoskeletal: Yes: Other (No kyphosis) Extremities: No: Cool, Cyanosis Edema: Yes (1+ to knees) Peripheral Pulses: 2+ Left Carotid, 2+ Right Carotid, 2+ Left Doralis Pedis, 2+ Right Dorsalis Pedis Integumentary: No: Jaundice Neurological: Yes: Alert, Oriented (x3) Psychiatric: No: Agitated CBC, BMP 10/15/19 10:00 Echo 12/04: mild LVE/mild conc LVH. severely reduced LVEF 25-30%. nl RV. mod LAE. valve fxn WNL. RVSP 50-60 L/RHC 10/04: wedge 25, PA 60/25. subtotal OM1 treated medically. mild dz elsewhere CXR: possible new mild pulm vascular congestion; lungs clear, no effusions ECG: AF, nonsp TWAs--no signif change vs priors acute syst CHF unilateral pedal edema: -sx's not c/w her prior asthma -BNP 3200 (range 1896-1078), CXR clear. + volume overload on exam. -wt up 254 here, from 239 office (07/05), denies caloric indiscretion at home -loss of efficacy to lasix 40 po bid at home noted--good response to 40 IV dose here -cont lasix 40 IV BID, monitor wt trend if standing scale measurements available -observe for improvement in orthopnea/PND sx's (chronic 5 pillow orthopnea, new PND on DOA ongoing here on first night) -replete K/Mg to > 4/2 -cont home carvedilol 3.125 bid, Entresto 24-26 bid, spironolactone 25 qd--if K stable, incr spirono dose -trop neg x 3 syst CHF: -secondary to cocaine abuse previously, now abstinent -was referred to EP for primary prevn ICD 03/06--pt states she is still waiting to be scheduled, will arrange as outpt with Dr Birmingham at [facility] [place] CAD s/p NSTEMI: -Type II PA sec to cocaine use suspected 10/04, subtotal OM occlusion treated medically at that time -now s/p 12 mo of Plavix therapy--d/c as pt also on NOAC -no angina, trop.s neg persistent AFib: -HR controlled, cont carvedilol low dose, digoxin -cont Xarelto for AC
[2019-10-15 11:49] LABS: ALBUMIN 3.2 g/dl (3.4-5.0); BILIRUBIN,TOTAL 0.6 mg/dL (0.2-1); BLOOD UREA NITROGEN 32.2 mg/dL (7-18); CALCIUM 10.1 mg/dL (8.5-10.1); CREATININE 1.1 mg/dL (0.55-1.3); MAGNESIUM 1.7 mg/dL (1.8-2.4); POTASSIUM 4.2 mmol/L (3.5-5.1); TOT PROT 6.7 g/dl (6.4-8.2)
--- NOTE | 2019-10-15 11:53 | PN ---
Physical Exam: SUBJECTIVE: Patient seen and examined at the bedside. patient had an episode of left leg pain and swelling overnight. doppler negative for dvt. she feels better now and denies pain. OBJECTIVE: covid status: negative ----- Patient is a 52 year old female with a past medical history of hypertension, HLD, diabetes, afib on xeralto, hx of aspergillosis, cocaine use, chf (EF 30- 35%). She presents to the ED with complaints of orthopnea. Notes that she has had mildly increased dyspnea in the past week. She notes has had increased leg swelling but looks slightly larger on the right leg then the left which is new. She does have a chronic ulcer on the left leg that is being followed by wound care. Period Temp Pulse Resp BP Sys/Khanna Pulse Ox Last 24 Hr 97.4 F-99.3 F 68-94 18-20 108-123/46-92 94-100 GENERAL: The patient is awake, alert, and fully oriented, in no acute distress. HEAD: Normal with no signs of trauma. EYES: PERRL, extraocular movements intact, sclera anicteric, conjunctiva clear. No ptosis. ENT: Ears normal, nares patent, oropharynx clear without exudates, moist mucous membranes. NECK: Trachea midline, full range of motion, supple. LUNGS: Breath sounds equal, diminished to auscultation bilaterally, no wheezes HEART: Regular rate and rhythm, S1, S2 without murmur, rub or gallop. ABDOMEN: Soft, nontender, nondistended, normoactive bowel sounds, no guarding EXTREMITIES: 2+ pulses, warm, well-perfused, no edema. NEUROLOGICAL: Normal speech, gait not observed. PSYCH: Normal mood, normal affect. SKIN: Warm, dry, normal turgor, no rashes or lesions noted Laboratory Results - last 24 hr 10/14/19 10/14/19 10/15/19 16:45 21:50 06:08 WBC RBC Hgb Hct MCV MCH MCHC RDW Plt Count MPV Absolute Neuts (auto) Neutrophils % Lymphocytes % Monocytes % Eosinophils % Basophils % Nucleated RBC % Sodium Potassium Chloride Carbon Dioxide Anion Gap BUN Creatinine Est GFR (CKD-EPI)AfAm Est GFR (CKD-EPI)NonAf POC Glucometer 98 255 146 Random Glucose Hemoglobin A1c % Calcium Magnesium Total Bilirubin AST ALT Alkaline Phosphatase Total Protein Albumin 10/15/19 10/15/19 10/15/19 10:00 10:00 10:00 WBC 6.3 RBC 4.32 Hgb 11.5 Hct 37.0 MCV 85.8 MCH 26.6 MCHC 31.0 L RDW 16.7 H Plt Count 342 MPV 8.7 Absolute Neuts (auto) 3.1 Neutrophils % 49.0 Lymphocytes % 36.7 Monocytes % 10.2 Eosinophils % 2.1 Basophils % 2.0 Nucleated RBC % 0 Sodium 141 Potassium 4.2 Chloride 105 Carbon Dioxide 27 Anion Gap 9 BUN 32.2 H Creatinine 1.1 Est GFR (CKD-EPI)AfAm 66.38 Est GFR (CKD-EPI)NonAf 57.27 POC Glucometer Random Glucose 182 H Hemoglobin A1c % 10.2 H Calcium 10.1 Magnesium 1.7 L Total Bilirubin 0.6 AST 18 ALT 32 Alkaline Phosphatase 154 H Total Protein 6.7 Albumin 3.2 L Active Medications Generic Name Dose Route Start Last Admin Trade Name Freq PRN Reason Stop Dose Admin Acetaminophen 650 mg 10/13/19 19:00 10/14/19 23:08 Tylenol - PO 650 mg Q6H PRN Administration PAIN LEVEL 1-5 Albuterol/Ipratropium 1 amp 10/15/19 08:28 Duoneb - NEB Q6H PRN SHORTNESS OF BREATH Budesonide/Formoterol Fumarate 2 puff 10/13/19 22:00 10/15/19 09:18 Symbicort 160/4.5mcg - IH 2 puff BID SOREN Administration Carvedilol 3.125 mg 10/13/19 22:00 10/15/19 09:16 Coreg - PO 3.125 mg BID SOREN Administration Digoxin 0.125 mg 10/14/19 10:00 10/15/19 09:17 Lanoxin - PO 0.125 mg DAILY SOREN Administration Docusate Sodium 100 mg 10/15/19 14:00 Colace - PO TID SOREN Furosemide 40 mg 10/13/19 14:00 10/15/19 06:09 Lasix Injection - IVPUSH 40 mg BIDLASIX SOREN Administration Insulin Aspart 1 vial 10/13/19 16:30 10/15/19 06:09 Novolog Vial Sliding Scale - SQ Not Given ACHS [facility] Protocol Insulin Detemir 30 units 10/14/19 07:00 10/15/19 06:09 Levemir Vial SQ 30 units AM SOREN Administration Loratadine 10 mg 10/13/19 12:11 10/13/19 22:07 Claritin - PO 10 mg DAILY PRN Administration ALLERGIES Magnesium Oxide 400 mg 10/14/19 10:00 10/15/19 09:16 Mag-Ox - PO 400 mg DAILY SOREN Administration Montelukast Sodium 10 mg 10/13/19 22:00 10/14/19 21:52 Singulair - PO 10 mg HS SOREN Administration Pantoprazole Sodium 40 mg 10/14/19 10:00 10/15/19 09:16 Protonix - PO 40 mg DAILY SOREN Administration Rivaroxaban 20 mg 10/14/19 10:00 10/15/19 09:16 Xarelto PO 20 mg DAILY SOREN Administration Sacubitril/Valsartan 1 tab 10/13/19 22:00 10/15/19 09:18 Entresto 24 Mg-26 Mg Tablet PO 1 tab BID SOREN Administration Spironolactone 25 mg 10/14/19 10:00 10/15/19 09:16 Aldactone - PO 25 mg DAILY SOREN Administration Tramadol HCl 50 mg 10/13/19 19:00 10/15/19 09:15 Ultram - PO 50 mg Q6H PRN Administration PAIN LEVEL 1-5 ASSESSMENT/PLAN: Problem List - Problems (1) Acute systolic congestive heart failure Assessment/Plan: patient with worsening shortness of breath over one week with orthopnea (sleeps with 5 pillows). notes worsening lower ext edema. bnp 3200. currently tolerating room air, no distress noted on lasix 40mg iv bid on carvedilol 3.125 bid, Entresto 24-26 bid, spironolactone 25 qd monitor intake output and daily weights cardiology following Code(s): I50.21 - ACUTE SYSTOLIC (CONGESTIVE) HEART FAILURE (2) Atrial fibrillation Assessment/Plan: on coreq bid, digoxin, xarelto Code(s): I48.91 - UNSPECIFIED ATRIAL FIBRILLATION (3) Bilateral lower extremity edema Assessment/Plan: bilateral lower ext wounds, receives treatment at wound care vascular study noted, no DVT vascular consulted for wounds Code(s): R60.0 - LOCALIZED EDEMA (4) CAD (coronary artery disease) Code(s): I25.10 - ATHSCL HEART DISEASE OF [place] CORONARY ARTERY W/O ANG PCTRS (5) Diabetes Assessment/Plan: on novolog, monitor bgms hmga1c elevated Code(s): E11.9 - TYPE 2 DIABETES MELLITUS WITHOUT COMPLICATIONS (6) Morbid obesity Assessment/Plan: risk factor outpatient follow up Code(s): E66.01 - MORBID (SEVERE) OBESITY DUE TO EXCESS CALORIES (7) Prophylactic measure Assessment/Plan: fen no ivf, patient on lasix monitor electrolytes while on lasix low salt/diabetic diet on xarelto full code Code(s): Z29.9 - ENCOUNTER FOR PROPHYLACTIC MEASURES, UNSPECIFIED Visit type - Emergency Visit Emergency Visit: Yes ED Registration Date: 10/13/19 Care time: The patient presented to the Emergency Department on the above date and was hospitalized for further evaluation of their emergent condition. - New Patient This patient is new to me today: No - Critical Care Critical Care patient: No - Discharge Referral Referred to [facility] No
[2019-10-15] MEDS: DOCUSATE SODIUM 100 MG CAPSULE (FP) PO SCH ×2 (15:02→21:32)
[2019-10-15] MEDS: MONTELUKAST NA 10 MG TABLET PO SCH (21:39)
[2019-10-16] MEDS: traMADol HCL 50 MG TABLET PO PRN ×3 (03:48→20:45)
[2019-10-16] MEDS: FUROSEMIDE 40 MG/4 ML INJECTABLE VIAL IVPUSH SCH ×2 (06:02→15:13)
[2019-10-16] MEDS: INSULIN SLIDING SCALE (NOVOLOG) 1 VIAL SQ SCH ×4 (06:02→21:29)
[2019-10-16] MEDS: DOCUSATE SODIUM 100 MG CAPSULE (FP) PO SCH ×3 (06:02→21:28)
[2019-10-16] MEDS: INSULIN (LEVEMIR) 100 UNITS/ML UNITS SQ SCH (06:02)
[2019-10-16] MEDS ORDERED: INSULIN (LEVEMIR) 100 UNITS/ML UNITS SQ ONE (06:07)
[2019-10-16] MEDS ORDERED: INSULIN (NOVOLOG) ASPART 100 UNITS/ML 10ML VIAL ONE ×2 (06:07→21:18)
--- NOTE | 2019-10-16 08:47 | PN ---
Progress Note, Physician Chief Complaint: Seen and examined sitting in the chair. States her edema is much improved.On RA presently, states uses it at night. Remains on lasix History of Present Illness: Patient is a 52 year old female with a past medical history of hypertension, HLD, diabetes, afib on xeralto, hx of aspergillosis, cocaine use, chf (EF 30- 35%). She presents to the ED with complaints of orthopnea. Notes that she has had mildly increased dyspnea in the past week. She notes has had increased leg swelling but looks slightly larger on the right leg then the left which is new. She does have a chronic ulcer on the left leg that is being followed by wound care. covid status: negative ----- - Current Medication List Current Medications: Active Medications Acetaminophen (Tylenol -) 650 mg PO Q6H PRN PRN Reason: PAIN LEVEL 1-5 Last Admin: 10/14/19 23:08 Dose: 650 mg Documented by: Albuterol/Ipratropium (Duoneb -) 1 amp NEB Q6H PRN PRN Reason: SHORTNESS OF BREATH Budesonide/Formoterol Fumarate (Symbicort 160/4.5mcg -) 2 puff IH BID [facility] Last Admin: 10/15/19 21:37 Dose: 2 puff Documented by: Carvedilol (Coreg -) 3.125 mg PO BID [facility] Last Admin: 10/15/19 21:32 Dose: 3.125 mg Documented by: Digoxin (Lanoxin -) 0.125 mg PO DAILY [facility] Last Admin: 10/15/19 09:17 Dose: 0.125 mg Documented by: Docusate Sodium (Colace -) 100 mg PO TID [facility] Last Admin: 10/16/19 06:02 Dose: Not Given Documented by: Furosemide (Lasix Injection -) 40 mg IVPUSH BIDLASIX [facility] Last Admin: 10/16/19 06:02 Dose: 40 mg Documented by: Insulin Aspart (Novolog Vial Sliding Scale -) 1 vial SQ ACHS [facility]; Protocol Last Admin: 10/16/19 06:02 Dose: 6 units Documented by: Insulin Detemir (Levemir Vial) 30 units SQ AM [facility] Last Admin: 10/16/19 06:02 Dose: 30 units Documented by: Loratadine (Claritin -) 10 mg PO DAILY PRN PRN Reason: ALLERGIES Last Admin: 10/13/19 22:07 Dose: 10 mg Documented by: Magnesium Oxide (Mag-Ox -) 400 mg PO DAILY [facility] Last Admin: 10/15/19 09:16 Dose: 400 mg Documented by: Montelukast Sodium (Singulair -) 10 mg PO HS [facility] Last Admin: 10/15/19 21:39 Dose: 10 mg Documented by: Pantoprazole Sodium (Protonix -) 40 mg PO DAILY [facility] Last Admin: 10/15/19 09:16 Dose: 40 mg Documented by: Rivaroxaban (Xarelto) 20 mg PO DAILY [facility] Last Admin: 10/15/19 09:16 Dose: 20 mg Documented by: Sacubitril/Valsartan (Entresto 24 Mg-26 Mg Tablet) 1 tab PO BID [facility] Last Admin: 10/15/19 21:53 Dose: 1 tab Documented by: Spironolactone (Aldactone -) 25 mg PO DAILY [facility] Last Admin: 10/15/19 09:16 Dose: 25 mg Documented by: Tramadol HCl (Ultram -) 50 mg PO Q6H PRN PRN Reason: PAIN LEVEL 1-5 Last Admin: 10/16/19 03:48 Dose: 50 mg Documented by: - Objective Vital Signs: Vital Signs Temperature 97.7 F 10/16/19 05:54 Pulse Rate 90 10/16/19 05:54 Respiratory Rate 18 10/16/19 05:54 Blood Pressure 104/61 10/16/19 05:54 O2 Sat by Pulse Oximetry (%) 94 L 10/15/19 09:00 Constitutional: Yes: Well Nourished, No Distress, Calm Eyes: Yes: WNL, Conjunctiva Clear, EOM Intact HENT: Yes: WNL, Atraumatic, Normocephalic Neck: Yes: WNL, Supple, Trachea Midline Cardiovascular: Yes: WNL, Regular Rate and Rhythm Respiratory: Yes: WNL, Regular, CTA Bilaterally Gastrointestinal: Yes: WNL, Normal Bowel Sounds ...Rectal Exam: Yes: Deferred Genitourinary: Yes: WNL Breast(s): Yes: WNL Musculoskeletal: Yes: WNL Extremities: Yes: Deformity (BL LE chronic wounds) Edema: LLE: 1+, RLE: 1+ Peripheral Pulses WNL: Yes Peripheral Pulses: Left Radial: 2+, Right Radial: 2+, Left Doralis Pedis: 2+, Right Dorsalis Pedis: 2+, Left Femoral: 2+, Right Femoral: 2+ Integumentary: Yes: Venous Stasis Changes, Other (dressing to LE BL) Neurological: Yes: WNL, Alert, Oriented ...Motor Strength: WNL Psychiatric: Yes: WNL Labs: CBC, BMP 10/15/19 10:00 10/15/19 10:00 INR, PTT INR 1.36 (0.83-1.09) H 10/13/19 07:21 Problem List - Problems (1) Aspergillosis Assessment/Plan: history of Code(s): B44.9 - ASPERGILLOSIS, UNSPECIFIED (2) Acute systolic congestive heart failure Assessment/Plan: bnp 3200 on admission currently tolerating room air, O2 at night c/w lasix 40mg po bid c/w carvedilol 3.125 bid, Entresto 24-26 bid, spironolactone 25 qd monitor intake output and daily weights cardiology following Code(s): I50.21 - ACUTE SYSTOLIC (CONGESTIVE) HEART FAILURE (3) CAD (coronary artery disease) Assessment/Plan: cardiology following c/w BB, entresto Code(s): I25.10 - ATHSCL HEART DISEASE OF [place] CORONARY ARTERY W/O ANG PCTRS (4) Atrial fibrillation Assessment/Plan: c/w dig, coreg Code(s): I48.91 - UNSPECIFIED ATRIAL FIBRILLATION (5) FERRER (dyspnea on exertion) Assessment/Plan: improving with diuresuis c/t monitor Code(s): R06.09 - OTHER FORMS OF DYSPNEA (6) Diabetes Assessment/Plan: BGM AC/HS with novolog sliding scale diabetic diet c/w levemir Code(s): E11.9 - TYPE 2 DIABETES MELLITUS WITHOUT COMPLICATIONS (7) Diabetic ulcer of calf Assessment/Plan: follows in wound center with Dr Will seen today-will c/w santyl to LE cover with damp 4x4 and kerlix LE elevation above level of heart while at rest Compression sock recommended while at home-will order Code(s): E11.622 - TYPE 2 DIABETES MELLITUS WITH OTHER SKIN ULCER; L97.209 - NON-PRESSURE CHRONIC ULCER OF UNSP CALF WITH UNSP SEVERITY (8) Hyperlipidemia Assessment/Plan: low fat chol/diet Code(s): E78.5 - HYPERLIPIDEMIA, UNSPECIFIED (9) Hypertension Assessment/Plan: normotensive c/w entresto,coreg Code(s): I10 - ESSENTIAL (PRIMARY) HYPERTENSION (10) Obesity (BMI 30-39.9) Assessment/Plan: counseled on weight loss Code(s): E66.9 - OBESITY, UNSPECIFIED (11) Bilateral lower extremity edema Assessment/Plan: bilateral lower ext wounds, receives treatment at wound care vascular study noted, no DVT vascular following elevate legs while in bed with compression stockings on dc Code(s): R60.0 - LOCALIZED EDEMA Visit type - Emergency Visit Emergency Visit: Yes ED Registration Date: 10/13/19 Care time: The patient presented to the Emergency Department on the above date and was hospitalized for further evaluation of their emergent condition. - New Patient This patient is new to me today: Yes Date on this admission: 10/16/19 - Critical Care Critical Care patient: No - Discharge Referral Referred to [facility] No
[2019-10-16] MEDS ORDERED: PT OWN MED DRAWER 7, Y5N ONE ×2 (10:14→21:17)
[2019-10-16] MEDS: MAGNESIUM OXIDE 400 MG TABLET (FP) PO SCH (10:16)
[2019-10-16] MEDS: RIVAROXABAN 20 MG TABLET PO SCH (10:16)
[2019-10-16] MEDS: SPIRONOLACTONE 25 MG TABLET PO SCH ×2 (10:17→21:28)
[2019-10-16] MEDS: PANTOPRAZOLE 20 MG TABLET PO SCH (10:17)
[2019-10-16] MEDS: CARVEDILOL 3.125 MG TABLET (FP) PO SCH ×2 (10:17→21:28)
[2019-10-16] MEDS: SACUBITRIL/VALSARTAN 24 MG-26 MG TABLET PO SCH ×2 (10:18→21:28)
[2019-10-16] MEDS: DIGOXIN 0.125 MG TABLET (FP) PO SCH (10:19)
[2019-10-16] MEDS: BUDESONIDE/FORMETEROL FUMARATE 160/4.5 mcg INHALER IH SCH ×2 (10:20→21:32)
--- NOTE | 2019-10-16 11:47 | CONSULT ---
- Consultation REQUESTING PROVIDER: CONSULT REQUEST: We have been asked to surgically evaluate this patient for LLE venous stasis wound. PCP:ABBY Rodrigez HISTORY OF PRESENT ILLNESS: 53 y/o F w/ PMHx Afib, CAD (NONOBSTRUCTIVE), CHF (EF 15-20%, with INC RVP,), HTN, Hyperlipdemia, Pulmonary Hypertension, Asthma, COPD, Sleep Apnea, Anxiety, Chronic LBP, DM, Obesity a/w acute on chronic systolic CHF. Consulted by medical team for LLE venous stasis wound. Pt reports she has been dealing with venous stasis wounds for the past few years, had one on her right tsai that took over 5 months to heal. Now has a new one on her left posterior calf for the past months. Being treated by Dr Will in wound care. Pt reports she was there last week and had an unna boot placed which she removed due to discomfort. Has compression socks which she uses and states they help. Has been placing dry gauze and kerlix to lle. Denies cp/sob, n/v/d. PMHx: Afib, CAD (NONOBSTRUCTIVE), CHF (EF 15-20%, with INC RVP,), HTN, Hyperlipdemia, Pulmonary Hypertension, Asthma, COPD, Sleep Apnea. Anxiety. Chronic LBP. DM. Obesity PSHx: Cholecystectomy, x3, Left TKR Social: Current every day smoker. Cocaine use Home Medications Medication Instructions Recorded Carvedilol 3.125 mg PO BID 11/02/18 Digoxin [Lanoxin -] 0.125 mg PO DAILY 11/02/18 Pantoprazole Sodium [Protonix -] 40 mg PO DAILY 11/02/18 Rivaroxaban [Xarelto -] 20 mg PO DAILY 11/02/18 Albuterol 0.083% Nebulizer Gabriella 1 amp NEB Q6H PRN 06/29/19 [Ventolin 0.083% Nebulizer Soln -] Ipratropium/Albuterol Sulfate 4 gm IH QID PRN 06/29/19 [Combivent Respimat 20-100 Mcg] Montelukast Sodium [Singulair] 10 mg PO HS 06/29/19 Insulin Aspart [Novolog] 16 units SQ TID 06/30/19 Loratadine 10 mg PO DAILY PRN 06/30/19 Magnesium Oxide [Magnesium Oxide 400 mg PO DAILY 06/30/19 400] Cholecalciferol (Vitamin D3) 50,000 unit PO WEEKLY 09/16/19 [Vitamin D3 -] Clopidogrel Bisulfate [Clopidogrel] 75 mg PO DAILY 09/16/19 Fluticasone Propion/Salmeterol 1 inhaler IN BID 09/16/19 [Wixela 500-50 Inhub] Insulin Glargine,Hum.rec.anlog 30 unit SQ AM 09/16/19 [Basaglar Kwikpen U-100] Losartan Potassium [Cozaar -] 50 mg PO DAILY 09/17/19 Sacubitril/Valsartan [Entresto 24 1 tab PO BID #60 tablet 09/20/19 mg-26 mg Tablet] Furosemide [Lasix] 60 mg PO DAILY #7 tablet 09/28/19 Allergies Allergy/AdvReac Type Severity Reaction Status Date / Time amoxicillin trihydrate Allergy Intermediate Swelling Verified 10/13/19 06:55 [From Augmentin] potassium clavulanate Allergy Intermediate Swelling Verified 10/13/19 06:55 [From Augmentin] amoxicillin Allergy Verified 10/13/19 06:55 REVIEW OF SYSTEMS: CONSTITUTIONAL: Absent: fever, chills CARDIOVASCULAR: Absent: chest pain RESPIRATORY: Absent: cough, shortness of breath GASTROINTESTINAL: Absent: abdominal pain PHYSICAL EXAM: GENERAL: Awake, alert, and fully oriented, in no acute distress. HEAD: Normal with no signs of trauma. LUNGS: No accessory muscle use on RA LOWER EXTREMITIES: LLE with approx 2cm ulcer on left posterior calf, scant fibrinous exudate, no erythema or drainage noted. RLE with no ulcerations noted, prior well healed anterior tsai scar. No edema noted in b/l les. No erythema noted. Palpable PT b/l dp not appreciated as pt unable to keep foot still (has twitch at baseline per pt). Vital Signs Temperature 98 F 10/16/19 10:00 Pulse Rate 99 H 10/16/19 10:19 Respiratory Rate 18 10/16/19 10:00 Blood Pressure 122/78 10/16/19 10:00 O2 Sat by Pulse Oximetry (%) 100 10/16/19 09:00 Lab Results WBC 6.3 K/mm3 (4.0-10.0) 10/15/19 10:00 RBC 4.32 M/mm3 (3.60-5.2) 10/15/19 10:00 Hgb 11.5 GM/dL (10.7-15.3) 10/15/19 10:00 Hct 37.0 % (32.4-45.2) 10/15/19 10:00 MCV 85.8 fl (80-96) 10/15/19 10:00 MCHC 31.0 g/dl (32.0-36.0) L 10/15/19 10:00 RDW 16.7 % (11.6-15.6) H 10/15/19 10:00 Plt Count 342 K/MM3 (134-434) 10/15/19 10:00 INR 1.36 (0.83-1.09) H 10/13/19 07:21 Sodium 141 mmol/L (136-145) 10/15/19 10:00 Potassium 4.2 mmol/L (3.5-5.1) 10/15/19 10:00 Chloride 105 mmol/L (98-107) 10/15/19 10:00 Carbon Dioxide 27 mmol/L (21-32) 10/15/19 10:00 Anion Gap 9 MMOL/L (8-16) 10/15/19 10:00 BUN 32.2 mg/dL (7-18) H 10/15/19 10:00 Creatinine 1.1 mg/dL (0.55-1.3) 10/15/19 10:00 Random Glucose 182 mg/dL (74-106) H 10/15/19 10:00 Calcium 10.1 mg/dL (8.5-10.1) 10/15/19 10:00 A/P: 53 y/o F w/ PMHx Afib, CAD (NONOBSTRUCTIVE), CHF (EF 15-20%, with INC RVP,), HTN, Hyperlipdemia, Pulmonary Hypertension, Asthma, COPD, Sleep Apnea, Anxiety, Chronic LBP, DM, Obesity a/w acute on chronic systolic CHF. Consulted by medical team for LLE venous stasis wound. -Santyl to LLE wound, cover with damp 4x4 and kerlix -LE elevation above level of heart while at rest -Compression sock recommended while at home -f/u with Dr Will as previously scheduled d/w attending Dr Will
[2019-10-16 12:34] LABS: BASO % 1.4 % (0-2.0); EOS % 2.9 % (0-4.5); HEMOGLOBIN 11.2 GM/dL (10.7-15.3); LYMPH % 30.1 % (8-40); MCH 26.6 pg (25.7-33.7); MEAN CELL VOLUME 85.8 fl (80-96); MEAN PLT VOLUME 8.8 fl (7.5-11.1); MONO % 10.1 % (3.8-10.2); NEUT % 55.5 % (42.8-82.8); PLATELET COUNT 332 K/MM3 (134-434); RDW 16.8 % (11.6-15.6); WHITE BLOOD COUNT 6.7 K/mm3 (4.0-10.0)
[2019-10-16 12:56] LABS: ALBUMIN 3.2 g/dl (3.4-5.0); BILIRUBIN,TOTAL 0.6 mg/dL (0.2-1); BLOOD UREA NITROGEN 26.3 mg/dL (7-18); CALCIUM 9.6 mg/dL (8.5-10.1); MAGNESIUM 1.5 mg/dL (1.8-2.4); POTASSIUM 4.2 mmol/L (3.5-5.1); TOT PROT 6.4 g/dl (6.4-8.2)
--- NOTE | 2019-10-16 15:28 | PN ---
Progress Note (short form) - Note Progress Note: s: no cp palps, sob/le edema improving Current Medications Generic Name Dose Route Start Last Admin Trade Name Freq PRN Reason Stop Dose Admin Acetaminophen 650 mg 10/13/19 19:00 10/14/19 23:08 Tylenol - PO 650 mg Q6H PRN Administration PAIN LEVEL 1-5 Albuterol/Ipratropium 1 amp 10/15/19 08:28 Duoneb - NEB Q6H PRN SHORTNESS OF BREATH Budesonide/Formoterol Fumarate 2 puff 10/13/19 22:00 10/16/19 10:20 Symbicort 160/4.5mcg - IH 2 puff BID SOREN Administration Carvedilol 3.125 mg 10/13/19 22:00 10/16/19 10:17 Coreg - PO 3.125 mg BID SOREN Administration Collagenase 1 applic 10/16/19 15:15 Santyl - TP DAILY [facility] Protocol Digoxin 0.125 mg 10/14/19 10:00 10/16/19 10:19 Lanoxin - PO 0.125 mg DAILY SOREN Administration Docusate Sodium 100 mg 10/15/19 14:00 10/16/19 14:08 Colace - PO Not Given TID SOREN Furosemide 40 mg 10/16/19 15:09 Lasix - PO BID@0600,1400 [facility] Insulin Aspart 1 vial 10/13/19 16:30 10/16/19 12:11 Novolog Vial Sliding Scale - SQ Not Given ACHS [facility] Protocol Insulin Detemir 30 units 10/14/19 07:00 10/16/19 06:02 Levemir Vial SQ 30 units AM SOREN Administration Loratadine 10 mg 10/13/19 12:11 10/13/19 22:07 Claritin - PO 10 mg DAILY PRN Administration ALLERGIES Magnesium Oxide 400 mg 10/14/19 10:00 10/16/19 10:16 Mag-Ox - PO 400 mg DAILY SOREN Administration Montelukast Sodium 10 mg 10/13/19 22:00 10/15/19 21:39 Singulair - PO 10 mg HS SOREN Administration Pantoprazole Sodium 40 mg 10/14/19 10:00 10/16/19 10:17 Protonix - PO 40 mg DAILY SOREN Administration Rivaroxaban 20 mg 10/14/19 10:00 10/16/19 10:16 Xarelto PO 20 mg DAILY SOREN Administration Sacubitril/Valsartan 1 tab 10/13/19 22:00 10/16/19 10:18 Entresto 24 Mg-26 Mg Tablet PO 1 tab BID SOREN Administration Spironolactone 25 mg 10/16/19 10:00 10/16/19 10:17 Aldactone - PO 25 mg BID SOREN Administration Tramadol HCl 50 mg 10/13/19 19:00 10/16/19 10:16 Ultram - PO 50 mg Q6H PRN Administration PAIN LEVEL 1-5 Vital Signs Period Temp Pulse Resp BP Sys/Khanna Pulse Ox Last 24 Hr 97 F-98 F 85-99 18-20 104-134/61-87 100 Constitutional: Yes: Well Nourished, No Distress, Obese Eyes: No: Sclera Icterus Respiratory: Yes: CTA Bilaterally. No: Accessory Muscle Use Gastrointestinal: Yes: Normal Bowel Sounds. No: Distention, Hepatomegaly, Palpable Mass, Tenderness Cardiovascular: Yes: Regular Rate and Rhythm JVD: Yes Heart Sounds: Yes: S1, S2. No: Gallop Murmur: No: Systolic Murmur, Diastolic Murmur Musculoskeletal: Yes: Other (No kyphosis) Extremities: No: Cool, Cyanosis Edema: Yes (1+ to knees) Peripheral Pulses: 2+ Left Carotid, 2+ Right Carotid, 2+ Left Doralis Pedis, 2+ Right Dorsalis Pedis Integumentary: No: Jaundice Neurological: Yes: Alert, Oriented (x3) Psychiatric: No: Agitated Echo 12/04: mild LVE/mild conc LVH. severely reduced LVEF 25-30%. nl RV. mod LAE. valve fxn WNL. RVSP 50-60 L/RHC 10/04: wedge 25, PA 60/25. subtotal OM1 treated medically. mild dz elsewhere CXR: possible new mild pulm vascular congestion; lungs clear, no effusions ECG: AF, nonsp TWAs--no signif change vs priors acute syst CHF unilateral pedal edema: -sx's not c/w her prior asthma -BNP 3200 (range [id number]), CXR clear. + volume overload on exam -wt up 254 here, from 239 office (07/05), denies caloric indiscretion at home -loss of efficacy to lasix 40 po bid at home noted--good response to 40 IV dose here -diuersed with lasix 40 IV BID, monitor wt trend if standing scale measurements available -feels better - transitioned to PO lasix today, continue -replete K/Mg to > 4/2 -cont home carvedilol 3.125 bid, Entresto 24-26 bid, spironolactone 25 qd--if K stable, incr spirono dose -trop neg x 3 syst CHF: -secondary to cocaine abuse previously, now abstinent -was referred to EP for primary prevn ICD 03/06--pt states she is still waiting to be scheduled, to be arranged as outpt with Dr Birmingham at [facility] CAD s/p NSTEMI: -Type II DE sec to cocaine use suspected 10/04, subtotal OM occlusion treated medically at that time -now s/p 12 mo of Plavix therapy--d/c as pt also on NOAC -no angina, trop.s neg persistent AFib: -HR controlled, cont carvedilol low dose, digoxin -cont Xarelto for AC
[2019-10-16] MEDS: FUROSEMIDE 40 MG TABLET (FP) PO SCH (16:33)
[2019-10-16] MEDS: COLLAGENASE CLOSTRIDIUM HIST. 30 GRAMS TUBE TP SCH (18:50)
[2019-10-16] MEDS: MONTELUKAST NA 10 MG TABLET PO SCH (21:28)
[2019-10-17] MEDS: traMADol HCL 50 MG TABLET PO PRN (03:21)
[2019-10-17] MEDS: INSULIN (LEVEMIR) 100 UNITS/ML UNITS SQ SCH (06:02)
[2019-10-17] MEDS: FUROSEMIDE 40 MG TABLET (FP) PO SCH ×2 (06:03→13:56)
[2019-10-17] MEDS: DOCUSATE SODIUM 100 MG CAPSULE (FP) PO SCH ×2 (06:03→13:55)
[2019-10-17] MEDS: INSULIN SLIDING SCALE (NOVOLOG) 1 VIAL SQ SCH ×2 (06:04→10:53)
[2019-10-17] MEDS ORDERED: PT OWN MED DRAWER 7, Y5N ONE (10:05)
[2019-10-17] MEDS: RIVAROXABAN 20 MG TABLET PO SCH (10:09)
[2019-10-17] MEDS: CARVEDILOL 3.125 MG TABLET (FP) PO SCH (10:09)
[2019-10-17] MEDS: MAGNESIUM OXIDE 400 MG TABLET (FP) PO SCH (10:09)
[2019-10-17] MEDS: PANTOPRAZOLE 20 MG TABLET PO SCH (10:09)
[2019-10-17] MEDS: SPIRONOLACTONE 25 MG TABLET PO SCH (10:09)
[2019-10-17] MEDS: SACUBITRIL/VALSARTAN 24 MG-26 MG TABLET PO SCH (10:10)
[2019-10-17] MEDS: DIGOXIN 0.125 MG TABLET (FP) PO SCH (10:10)
[2019-10-17] MEDS: BUDESONIDE/FORMETEROL FUMARATE 160/4.5 mcg INHALER IH SCH (10:11)
[2019-10-17] MEDS: COLLAGENASE CLOSTRIDIUM HIST. 30 GRAMS TUBE TP SCH (10:11)
[2019-10-17] MEDS ORDERED: INSULIN (NOVOLOG) ASPART 100 UNITS/ML 10ML VIAL ONE (10:50)
--- NOTE | 2019-10-17 12:26 | DS ---
Physical Exam: SUBJECTIVE: Patient seen and examined OBJECTIVE: Vital Signs Period Temp Pulse Resp BP Sys/Khanna Pulse Ox Last 24 Hr 97.4 F-98.1 F 85-98 18-20 104-127/54-85 99-100 PHYSICAL EXAM Constitutional: Yes: Well Nourished, No Distress, Calm Eyes: Yes: WNL, Conjunctiva Clear, EOM Intact HENT: Yes: WNL, Atraumatic, Normocephalic Neck: Yes: WNL, Supple, Trachea Midline Cardiovascular: Yes: WNL, Regular Rate and Rhythm Respiratory: Yes: WNL, Regular, CTA Bilaterally Gastrointestinal: Yes: WNL, Normal Bowel Sounds ...Rectal Exam: Yes: Deferred Genitourinary: Yes: WNL Breast(s): Yes: WNL Musculoskeletal: Yes: WNL Extremities: Yes: Deformity (BL LE chronic wounds) Edema: LLE: 1+, RLE: 1+ Peripheral Pulses WNL: Yes Peripheral Pulses: Left Radial: 2+, Right Radial: 2+, Left Doralis Pedis: 2+, Right Dorsalis Pedis: 2+, Left Femoral: 2+, Right Femoral: 2+ Integumentary: Yes: Venous Stasis Changes, Other (dressing to LE BL) Neurological: Yes: WNL, Alert, Oriented ...Motor Strength: WNL Psychiatric: Yes: WNL LABS Laboratory Results - last 24 hr 10/16/19 10/16/19 10/16/19 11:10 11:10 21:25 WBC 6.7 RBC 4.20 Hgb 11.2 Hct 36.0 MCV 85.8 MCH 26.6 MCHC 31.0 L RDW 16.8 H Plt Count 332 MPV 8.8 Absolute Neuts (auto) 3.7 Neutrophils % 55.5 Lymphocytes % 30.1 Monocytes % 10.1 Eosinophils % 2.9 Basophils % 1.4 Nucleated RBC % 0 Sodium 139 Potassium 4.2 Chloride 103 Carbon Dioxide 32 Anion Gap 5 L BUN 26.3 H Creatinine 1.0 Est GFR (CKD-EPI)AfAm 74.49 Est GFR (CKD-EPI)NonAf 64.27 POC Glucometer 327 Random Glucose 123 H Calcium 9.6 Magnesium 1.5 L Total Bilirubin 0.6 AST 20 ALT 31 Alkaline Phosphatase 146 H Total Protein 6.4 Albumin 3.2 L 10/17/19 10/17/19 05:59 10:36 WBC RBC Hgb Hct MCV MCH MCHC RDW Plt Count MPV Absolute Neuts (auto) Neutrophils % Lymphocytes % Monocytes % Eosinophils % Basophils % Nucleated RBC % Sodium Potassium Chloride Carbon Dioxide Anion Gap BUN Creatinine Est GFR (CKD-EPI)AfAm Est GFR (CKD-EPI)NonAf POC Glucometer 82 239 Random Glucose Calcium Magnesium Total Bilirubin AST ALT Alkaline Phosphatase Total Protein Albumin HOSPITAL COURSE: Date of Admission:10/13/19 Date of Discharge: 10/17/19 Problem List - Problems (1) Aspergillosis Assessment/Plan: history of Code(s): B44.9 - ASPERGILLOSIS, UNSPECIFIED (2) Acute systolic congestive heart failure Assessment/Plan: bnp 3200 on admission currently tolerating room air c/w lasix 40mg po bid c/w carvedilol 3.125 bid, Entresto 24-26 bid, spironolactone 25 qd pre/post done and no need for home O2 Code(s): I50.21 - ACUTE SYSTOLIC (CONGESTIVE) HEART FAILURE (3) CAD (coronary artery disease) Assessment/Plan: cardiology following c/w BB, entresto follow with Dr Santiago in 2 weeks Code(s): I25.10 - ATHSCL HEART DISEASE OF [place] CORONARY ARTERY W/O ANG PCTRS (4) Atrial fibrillation Assessment/Plan: c/w dig, coreg Code(s): I48.91 - UNSPECIFIED ATRIAL FIBRILLATION (5) FERRER (dyspnea on exertion) Assessment/Plan: improved with diuresuis c/t monitor Code(s): R06.09 - OTHER FORMS OF DYSPNEA (6) Diabetes Assessment/Plan: BGM AC/HS with novolog sliding scale diabetic diet c/w levemir Code(s): E11.9 - TYPE 2 DIABETES MELLITUS WITHOUT COMPLICATIONS (7) Diabetic ulcer of calf Assessment/Plan: follows in wound center with Dr Will c/w juan to LE cover with damp 4x4 and kerlix VNS ro see at home LE elevation above level of heart while at rest Compression sock recommended while at home-will order Code(s): E11.622 - TYPE 2 DIABETES MELLITUS WITH OTHER SKIN ULCER; L97.209 - NON-PRESSURE CHRONIC ULCER OF UNSP CALF WITH UNSP SEVERITY (8) Hyperlipidemia Assessment/Plan: low fat chol/diet Code(s): E78.5 - HYPERLIPIDEMIA, UNSPECIFIED (9) Hypertension Assessment/Plan: normotensive c/w entresto,coreg Code(s): I10 - ESSENTIAL (PRIMARY) HYPERTENSION (10) Obesity (BMI 30-39.9) Assessment/Plan: counseled on weight loss Code(s): E66.9 - OBESITY, UNSPECIFIED (11) Bilateral lower extremity edema Assessment/Plan: bilateral lower ext wounds, receives treatment at wound care vascular study noted, no DVT vascular following elevate legs while in bed with compression stockings on dc Code(s): R60.0 - LOCALIZED EDEMA Minutes to complete discharge: 40 Discharge Summary Problems reviewed: Yes Reason For Visit: CONGESTIVE HEART FAILURE Current Active Problems Acute systolic congestive heart failure (Acute) Aspergillosis (Acute) Bilateral lower extremity edema (Acute) CAD (coronary artery disease) (Acute) Congestive heart failure (Acute) Diabetes (Acute) Morbid obesity (Acute) Obesity (BMI 30-39.9) (Acute) - Instructions Diet, Activity, Other Instructions: DISCHARGE YOUR VISIT You came to the hospital because were having trouble breathing and your legs were swollen. You water pills were adjusted. Continue to take as prescribed. Dr Will also saw you for the wounds on your legs-apply the Santyl cream and see him in the wound clinic on October 25 MEDICATIONS Please continue to take your home medications as prescribed. There was come changes. See the attached medication list DIET Continue your home diet ADDITIONAL CARE Please make an appointment to see your primary care provider, 2 [address] from today. Call Dr Jones office to make an appointment in 2 weeks ADDITIONAL INFORMATION Please call 911 or come directly to the emergency department if you experience unusual headache, vision change, shortness of breath, chest pain, numbness, tingling, loss of alertness/awareness, loss of function, unusual bleeding or any alarming symptoms. Thank you for allowing me to care for you. Edvin Nicole, ABBY, [facility] [phone] Referrals: Carlos Oconnell MD [Staff Physician] - 2 Weeks Pablo Will DO [Staff Physician] - 10/26/19 1:00 pm Disposition: HOME - Home Medications Comprehensive Discharge Medication List: Ambulatory Orders Ipratropium/Albuterol Sulfate [Combivent Respimat 20-100 Mcg] 4 gm IH QID PRN 06/29/19 Insulin Aspart [Novolog] 16 units SQ TID 06/30/19 Loratadine 10 mg PO DAILY PRN 06/30/19 Magnesium Oxide [Magnesium Oxide 400] 400 mg PO DAILY 06/30/19 Cholecalciferol (Vitamin D3) [Vitamin D3 -] 50,000 unit PO WEEKLY 09/16/19 Fluticasone Propion/Salmeterol [Wixela 500-50 Inhub] 1 inhaler IN BID 09/16/19 Insulin Glargine,Hum.rec.anlog [Basaglar Kwikpen U-100] 30 unit SQ AM 09/16/19 Acetaminophen [Tylenol .Regular Strength -] 650 mg PO Q6H PRN tablet 10/17/19 Carvedilol 3.125 mg PO BID #60 tablet 10/17/19 Clopidogrel Bisulfate [Clopidogrel] 75 mg PO DAILY #30 tablet 10/17/19 Collagenase Clostridium Hist. [Santyl -] 1 applic TP DAILY #1 tube 10/17/19 Diaper,Brief,Adult, Disposable [Brief] 1 each MC PRN #30 each 10/17/19 Digoxin [Lanoxin -] 0.125 mg PO DAILY #30 tablet 10/17/19 Docusate Sodium [Colace -] 100 mg PO TID #90 capsule 10/17/19 Furosemide [Lasix -] 40 mg PO BID@0600,1400 #60 tablet 10/17/19 Insulin Sliding Scale [Novolog Vial Sliding Scale -] 1 vial SQ ACHS units 10/17/19 Losartan Potassium [Cozaar -] 50 mg PO DAILY #30 tablet 10/17/19 Montelukast Sodium [Singulair] 10 mg PO HS #30 tablet 10/17/19 Pantoprazole Sodium [Protonix -] 40 mg PO DAILY #30 tab 10/17/19 Rivaroxaban [Xarelto -] 20 mg PO DAILY #30 tablet 10/17/19 Sacubitril/Valsartan [Entresto 24 mg-26 mg Tablet] 1 tab PO BID #60 tablet 10/17/19 Spironolactone [Aldactone -] 25 mg PO BID #60 tablet 10/17/19 Problem List - Problems (1) Aspergillosis Code(s): B44.9 - ASPERGILLOSIS, UNSPECIFIED (2) Acute systolic congestive heart failure Code(s): I50.21 - ACUTE SYSTOLIC (CONGESTIVE) HEART FAILURE (3) CAD (coronary artery disease) Code(s): I25.10 - ATHSCL HEART DISEASE OF [place] CORONARY ARTERY W/O ANG PCTRS (4) Atrial fibrillation Code(s): I48.91 - UNSPECIFIED ATRIAL FIBRILLATION (5) FERRER (dyspnea on exertion) Code(s): R06.09 - OTHER FORMS OF DYSPNEA (6) Diabetes Code(s): E11.9 - TYPE 2 DIABETES MELLITUS WITHOUT COMPLICATIONS (7) Diabetic ulcer of calf Code(s): E11.622 - TYPE 2 DIABETES MELLITUS WITH OTHER SKIN ULCER; L97.209 - NON-PRESSURE CHRONIC ULCER OF UNSP CALF WITH UNSP SEVERITY (8) Hyperlipidemia Code(s): E78.5 - HYPERLIPIDEMIA, UNSPECIFIED (9) Hypertension Code(s): I10 - ESSENTIAL (PRIMARY) HYPERTENSION (10) Obesity (BMI 30-39.9) Code(s): E66.9 - OBESITY, UNSPECIFIED (11) Bilateral lower extremity edema Code(s): R60.0 - LOCALIZED EDEMA This patient is new to me today: No Emergency Visit: Yes ED Registration Date: 10/13/19 Care time: The patient presented to the Emergency Department on the above date and was hospitalized for further evaluation of their emergent condition. Critical Care patient: No - Discharge Referral Referred to [facility] Med [facility] No
[2019-10-17 12:28] VITALS: TEMP 97.4
[2019-10-17 12:41] LABS: BASO % 1.2 % (0-2.0); EOS % 2.6 % (0-4.5); HEMATOCRIT 35.7 % (32.4-45.2); HEMOGLOBIN 11.2 GM/dL (10.7-15.3); LYMPH % 30.5 % (8-40); MCH 26.9 pg (25.7-33.7); MCHC 31.5 g/dl (32.0-36.0); MEAN CELL VOLUME 85.3 fl (80-96); MEAN PLT VOLUME 8.6 fl (7.5-11.1); MONO % 11.3 % (3.8-10.2); NEUT % 54.4 % (42.8-82.8); PLATELET COUNT 312 K/MM3 (134-434); RBC 4.18 M/mm3 (3.60-5.2); RDW 16.7 % (11.6-15.6); WHITE BLOOD COUNT 5.9 K/mm3 (4.0-10.0)
[2019-10-17 13:17] LABS: ALBUMIN 3.4 g/dl (3.4-5.0); BILIRUBIN,TOTAL 0.7 mg/dL (0.2-1); BLOOD UREA NITROGEN 23.6 mg/dL (7-18); CALCIUM 9.7 mg/dL (8.5-10.1); MAGNESIUM 1.5 mg/dL (1.8-2.4); POTASSIUM 4.1 mmol/L (3.5-5.1)
[2019-10-17] MEDS: ACETAMINOPHEN 325 MG TABLET (FP) PO PRN (13:55)
--- NOTE | 2019-10-17 14:17 | PN ---
Progress Note (short form) - Note Progress Note: s: no cp palps, sob/le edema better Current Medications Generic Name Dose Route Start Last Admin Trade Name Freq PRN Reason Stop Dose Admin Acetaminophen 650 mg 10/13/19 19:00 10/17/19 13:55 Tylenol - PO 650 mg Q6H PRN Administration PAIN LEVEL 1-5 Albuterol/Ipratropium 1 amp 10/15/19 08:28 Duoneb - NEB Q6H PRN SHORTNESS OF BREATH Budesonide/Formoterol Fumarate 2 puff 10/13/19 22:00 10/17/19 10:11 Symbicort 160/4.5mcg - IH 2 puff BID SOREN Administration Carvedilol 3.125 mg 10/13/19 22:00 10/17/19 10:09 Coreg - PO 3.125 mg BID SOREN Administration Collagenase 1 applic 10/16/19 15:15 10/17/19 10:11 Santyl - TP 1 appful DAILY SOREN Administration Protocol Digoxin 0.125 mg 10/14/19 10:00 10/17/19 10:10 Lanoxin - PO 0.125 mg DAILY SOREN Administration Docusate Sodium 100 mg 10/15/19 14:00 10/17/19 13:55 Colace - PO Not Given TID SOREN Furosemide 40 mg 10/16/19 15:09 10/17/19 13:56 Lasix - PO 40 mg BID@0600,1400 SOREN Administration Insulin Aspart 1 vial 10/13/19 16:30 10/17/19 10:53 Novolog Vial Sliding Scale - SQ 4 units ACHS SOREN Administration Protocol Insulin Detemir 30 units 10/14/19 07:00 10/17/19 06:02 Levemir Vial SQ 30 units AM SOREN Administration Loratadine 10 mg 10/13/19 12:11 10/13/19 22:07 Claritin - PO 10 mg DAILY PRN Administration ALLERGIES Magnesium Oxide 400 mg 10/14/19 10:00 10/17/19 10:09 Mag-Ox - PO 400 mg DAILY SOREN Administration Montelukast Sodium 10 mg 10/13/19 22:00 10/16/19 21:28 Singulair - PO 10 mg HS SOREN Administration Pantoprazole Sodium 40 mg 10/14/19 10:00 10/17/19 10:09 Protonix - PO 40 mg DAILY SOREN Administration Rivaroxaban 20 mg 10/14/19 10:00 10/17/19 10:09 Xarelto PO 20 mg DAILY SOREN Administration Sacubitril/Valsartan 1 tab 10/13/19 22:00 10/17/19 10:10 Entresto 24 Mg-26 Mg Tablet PO 1 tab BID SOREN Administration Spironolactone 25 mg 10/16/19 10:00 10/17/19 10:09 Aldactone - PO 25 mg BID SOREN Administration Tramadol HCl 50 mg 10/13/19 19:00 10/17/19 03:21 Ultram - PO 50 mg Q6H PRN Administration PAIN LEVEL 1-5 Vital Signs Period Temp Pulse Resp BP Sys/Khanna Pulse Ox Last 24 Hr 97.4 F-98.1 F 85-98 18-20 104-149/54-90 99-100 Constitutional: Yes: Well Nourished, No Distress, Obese Eyes: No: Sclera Icterus Respiratory: Yes: CTA Bilaterally. No: Accessory Muscle Use Gastrointestinal: Yes: Normal Bowel Sounds. No: Distention, Hepatomegaly, Palpable Mass, Tenderness Cardiovascular: Yes: Regular Rate and Rhythm JVD: Yes Heart Sounds: Yes: S1, S2. No: Gallop Murmur: No: Systolic Murmur, Diastolic Murmur Musculoskeletal: Yes: Other (No kyphosis) Extremities: No: Cool, Cyanosis Edema: Yes (1+ to knees) Peripheral Pulses: 2+ Left Carotid, 2+ Right Carotid, 2+ Left Doralis Pedis, 2+ Right Dorsalis Pedis Integumentary: No: Jaundice Neurological: Yes: Alert, Oriented (x3) Psychiatric: No: Agitated Echo 12/04: mild LVE/mild conc LVH. severely reduced LVEF 25-30%. nl RV. mod LAE. valve fxn WNL. RVSP 50-60 L/RHC 10/04: wedge 25, PA 60/25. subtotal OM1 treated medically. mild dz elsewhere CXR: possible new mild pulm vascular congestion; lungs clear, no effusions ECG: AF, nonsp TWAs--no signif change vs priors acute syst CHF unilateral pedal edema: -sx's not c/w her prior asthma -BNP 3200 (range 0299-0384), CXR clear. + volume overload on exam -wt up 254 here, from 239 office (07/05), denies caloric indiscretion at home -loss of efficacy to lasix 40 po bid at home noted--good response to 40 IV dose here -diuersed with lasix 40 IV BID, monitor wt trend if standing scale measurements available -feels better - transitioned to PO lasix, continue -replete K/Mg to > 4/2 -cont home carvedilol 3.125 bid, Entresto 24-26 bid, spironolactone 25 qd--if K stable, incr spirono dose -trop neg x 3 syst CHF: -secondary to cocaine abuse previously, now abstinent -was referred to EP for primary prevn ICD 03/06--pt states she is still waiting to be scheduled, to be arranged as outpt with Dr [place] at [facility] CAD s/p NSTEMI: -Type II IA sec to cocaine use suspected 10/04, subtotal OM occlusion treated medically at that time -now s/p 12 mo of Plavix therapy--d/c as pt also on NOAC -no angina, trop.s neg persistent AFib: -HR controlled, cont carvedilol low dose, digoxin -cont Xarelto for AC
[2019-10-17 14:30] VITALS: BP 118/81; PULSE 88
== END 2019-10-17 14:52 | disposition home or self-care (01) | DRG 194 ==
LOC: JER 06:45 → JERBED 12:02 → J7W 15:21
PROVIDERS: ADMIT Internal Medicine; ATTEND Nurse Practitioner Acute Care
DX: I11.0 Hypertensive heart disease with heart failure (principal); J45.909 Unspecified asthma, uncomplicated; I50.23 Acute on chronic systolic (congestive) heart failure; I25.10 Atherosclerotic heart disease of native coronary artery without angina pectoris; E66.01 Morbid (severe) obesity due to excess calories; Z68.38 Body mass index [BMI] 38.0-38.9, adult; F14.90 Cocaine use, unspecified, uncomplicated; I48.19 Other persistent atrial fibrillation; E11.622 Type 2 diabetes mellitus with other skin ulcer; L97.209 Non-pressure chronic ulcer of unspecified calf with unspecified severity; I27.20 Pulmonary hypertension, unspecified; E78.5 Hyperlipidemia, unspecified; F17.210 Nicotine dependence, cigarettes, uncomplicated; F41.9 Anxiety disorder, unspecified
CPT/HCPCS: 36415; 71045-TC-FY; 80053; 80162; 82550; 82962; 83036; 83735; 83880; 84484; 85025; 85610; 93005; 93010; 93970-TC; 93971-TC; 94761; 97116-GP; 97162-GP; 99285-25; U0003

== ENCOUNTER 2019-10-24 06:34 | Inpatient (IN) | payer OTHER ==
[2019-10-24 06:46] VITALS: BMI 36.9
[2019-10-24] MEDS ORDERED: ONDANSETRON 4 MG/2 ML VIAL IVPUSH ONE (07:51)
[2019-10-24] MEDS ORDERED: FUROSEMIDE 40 MG/4 ML INJECTABLE VIAL IVPUSH ONE (07:51)
[2019-10-24] MEDS ORDERED: FUROSEMIDE 40 MG/4 ML INJECTABLE VIAL ONE (07:53)
[2019-10-24 08:17] LABS: BASO % 3.3 % (0-2.0); EOS % 1.4 % (0-4.5); HEMATOCRIT 36.6 % (32.4-45.2); HEMOGLOBIN 11.3 GM/dL (10.7-15.3); LYMPH % 22.5 % (8-40); MCHC 30.7 g/dl (32.0-36.0); MEAN CELL VOLUME 84.5 fl (80-96); MEAN PLT VOLUME 9.3 fl (7.5-11.1); MONO % 7.5 % (3.8-10.2); NEUT % 65.3 % (42.8-82.8); PLATELET COUNT 289 K/MM3 (134-434); RBC 4.33 M/mm3 (3.60-5.2); RDW 17.1 % (11.6-15.6); WHITE BLOOD COUNT 7.4 K/mm3 (4.0-10.0)
[2019-10-24 08:22] LABS: INR 3.03 (0.83-1.09); PROTHROMBIN TIME (PATIENT) 36.1 SEC (9.7-13.0)
--- NOTE | 2019-10-24 08:38 | PDOC ---
Documentation entered by Kandace Rey SCRIBE, acting as scribe for Bill Dwyer MD. Bill Dwyer MD: This documentation has been prepared by the Rena grullon Nirvannie, SCRIBE, under my direction and personally reviewed by me in its entirety. I confirm that the documentation accurately reflects all work, treatment, procedures, and medical decision making performed by me. 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 Will), nicotine abuse, and recent admission for CHF exacerbation (10/12-10/16) who presents to the emergency department with 1 week of worsening shortness of breath at rest and with exertion, worsening cough, and subjective weight gain. As per patient, over the course of the past week she has been increasingly short of breath, her chronic cough has worsened with now yellow sputum. Patient endorses using her rescue inhaler at home without relief, prompting her arrival to the ED. While in the ED, the patient also notes mild nausea with emesis (yesterday 1 episode and today one episode). She denies any fevers or chills. Allergies: Per nursing notes. Primary Care Physician: Dr. Espinoza Past History - Medical History Allergies/Adverse Reactions: Allergies Allergy/AdvReac Type Severity Reaction Status Date / Time amoxicillin trihydrate Allergy Intermediate Swelling Verified 10/24/19 06:47 [From Augmentin] potassium clavulanate Allergy Intermediate Swelling Verified 10/24/19 06:47 [From Augmentin] amoxicillin Allergy Verified 10/24/19 06:47 Home Medications: Ambulatory Orders Ipratropium/Albuterol Sulfate [Combivent Respimat 20-100 Mcg] 4 gm IH QID PRN 06/29/19 Insulin Aspart [Novolog] 16 units SQ TID 06/30/19 Loratadine 10 mg PO DAILY PRN 06/30/19 Magnesium Oxide [Magnesium Oxide 400] 400 mg PO DAILY 06/30/19 Cholecalciferol (Vitamin D3) [Vitamin D3 -] 50,000 unit PO WEEKLY 09/16/19 Fluticasone Propion/Salmeterol [Wixela 500-50 Inhub] 1 inhaler IN BID 09/16/19 Insulin Glargine,Hum.rec.anlog [Basaglar Kwikpen U-100] 30 unit SQ AM 09/16/19 Acetaminophen [Tylenol .Regular Strength -] 650 mg PO Q6H PRN tablet 10/17/19 Carvedilol 3.125 mg PO BID #60 tablet 10/17/19 Clopidogrel Bisulfate [Clopidogrel] 75 mg PO DAILY #30 tablet 10/17/19 Collagenase Clostridium Hist. [Santyl -] 1 applic TP DAILY #1 tube 10/17/19 Compress.stocking,Knee,Reg,Lrg [Relief Knee Open Toe] 1 each MC ASDIR #1 each 10/17/19 Diaper,Brief,Adult, Disposable [Brief] 1 each MC PRN #30 each 10/17/19 Digoxin [Lanoxin -] 0.125 mg PO DAILY #30 tablet 10/17/19 Docusate Sodium [Colace -] 100 mg PO TID #90 capsule 10/17/19 Furosemide [Lasix -] 40 mg PO BID@0600,1400 #60 tablet 10/17/19 Insulin Sliding Scale [Novolog Vial Sliding Scale -] 1 vial SQ ACHS units 10/17/19 Losartan Potassium [Cozaar -] 50 mg PO DAILY #30 tablet 10/17/19 Montelukast Sodium [Singulair] 10 mg PO HS #30 tablet 10/17/19 Pantoprazole Sodium [Protonix -] 40 mg PO DAILY #30 tab 10/17/19 Rivaroxaban [Xarelto -] 20 mg PO DAILY #30 tablet 10/17/19 Sacubitril/Valsartan [Entresto 24 mg-26 mg Tablet] 1 tab PO BID #60 tablet 10/17/19 Spironolactone [Aldactone -] 25 mg PO BID #60 tablet 10/17/19 Asthma: Yes Cancer: No Cardiac Disorders: Yes (reduced ejection fraction of 23%, [place] 2018) CVA: No COPD: Yes CHF: Yes (with pulmonary HTN) Diabetes: Yes Disorders: No HTN: Yes Hypercholesterolemia: Yes Liver Disease: No Psychiatric Problems: Yes (bipolar) Seizures: No Thyroid Disease: No - Surgical History Cardiac Surgery: No Cholecystectomy: Yes Neurologic Surgery: No Orthopedic Surgery: Yes (left knee replacemet - 1996) - Immunization History Immunization Up to Date: Yes - Psycho-Social/Smoking History Smoking Status: No Smoking History: Current every day smoker Have you smoked in the past 12 months: Yes Number of Cigarettes Smoked Daily: 10 If you are a former smoker, when did you quit?: 2019 Information on smoking cessation initiated: Yes 'Breaking Loose' booklet given: 09/26/19 - Substance Abuse Hx (Audit-C & DAST Scrn) How often the patient has a drink containing alcohol: Never Score: In Men: 4 or > Positive; In Women: 3 or > Positive: 0 Screen Result (Pos requires Nsg. Audit-10AR): Negative In the last yr the pt used illegal drug/Rx for NonMed reason: No Score: Yes response is considered Positive: 0 Screen Result (Positive result requires Nsg. DAST-10): Negative Review of Systems - Review of Systems Able to Perform ROS?: Yes Comments:: 10/24/19 09:01 CONSTITUTIONAL: No fever, no chills, no fatigue EYES: No visual changes ENT: No ear pain, no sore throat CARDIOVASCULAR: No chest pain, no palpitations RESPIRATORY: +SOB. +Cough. GI: +Nausea. +Vomiting. No abdominal pain, no constipation, no diarrhea GENITOURINARY: No dysuria, no frequency, no hematuria MUSKULOSKELETAL: +Lower extremity edema. No back pain, no joint pain, no myalgias SKIN: No rash NEURO: No headache All Other Systems: Reviewed and Negative *Physical Exam - Vital Signs Last Vital Signs Temp Pulse Resp BP Pulse Ox 97.7 F 105 H 22 H 141/96 100 10/24/19 06:41 10/24/19 06:41 10/24/19 06:41 10/24/19 06:41 10/24/19 06:41 - Physical Exam 10/24/19 09:01 CONSTITUTIONAL: +Obese. Well-appearing; well-nourished; in no apparent distress HEAD: Normocephalic; atraumatic EYES: PERRL; EOM intact ENMT: External appears normal; normal oropharynx NECK: +Mild JVD. Supple; non-tender; no cervical lymphadenopathy CARD: +Irregularly irregular. +Mild tachycardia. no murmurs, rubs, or gallops RESP: Normal chest excursion with respiration; +Rhonchourus at the bases; no wheezes or rales ABD: Soft, non-distended; non-tender; no palpable organomegaly, no palpable hernias EXT: +2+ lower extremity edema with venous stasis and dermatitis, L>R. +Bilateral medial aspect leg wounds. Normal ROM in all four extremities; non- tender to palpation; distal pulses intact SKIN: Warm, dry, no rash NEURO: No focal neurological deficiencies. Heart Score/ECG Review #1 10/24/19 09:02 EKG performed at: 24 October 2019 at 8:01:44 Vent Rate: 104 bpm CA interval: * ms QRS duration: 94 ms QT/QTc: 354/465 ms P-R-T axes: * 89 118 Atrial fibrillation with rapid ventricular response Lateral infarct, age undetermined Abnormal ECG ED Treatment Course - LABORATORY CBC & Chemistry Diagram: 10/24/19 07:42 10/24/19 07:42 Medical Decision Making - Medical Decision Making 10/24/19 08:36 Patient is a 53-year-old female with history of multiple comorbidities, A. fib on Xarelto, COPD, systolic CHF with EF of 30 to 35% presents with worsening shortness of breath, at rest and with minimal exertion, PND and orthopnea. Patient also endorses productive cough with purulent sputum. In the ER, patient is nontoxic-appearing, afebrile, with mild tachycardia noted to be A. fib with RVR by EKG. Lungs are noted to be clear to auscultation with minimal intermittent rhonchi at the bases only. Worsening lower extremity edema is noted and patient endorses unintentional weight gain. I suspect CHF exacerbation versus acute COPD versus COVID versus ACS. PE is highly unlikely. Will obtain CBC/CMP/cardiac profile/BNP. Will obtain chest x-ray. Will administer IV Lasix. Will reassess. Likely admission Discharge - Discharge Information Problems reviewed: Yes Clinical Impression/Diagnosis: Leg edema, FERRER (dyspnea on exertion) CHF exacerbation Qualifiers: Heart failure type: unspecified Qualified Code(s): I50.9 - Heart failure, unspecified Condition: Fair - Admission Yes - Follow up/Referral Referrals: Fili Espinoza MD [Primary Care Provider] - - Patient Discharge Instructions - Post Discharge Activity
[2019-10-24 08:48] LABS: ALBUMIN 3.4 g/dl (3.4-5.0); BILIRUBIN,TOTAL 1.2 mg/dL (0.2-1); CALCIUM 9.8 mg/dL (8.5-10.1); MAGNESIUM 1.7 mg/dL (1.8-2.4); N-TERMINAL BNP 4701.2 pg/ml (5-125); POTASSIUM 4.8 mmol/L (3.5-5.1); TOT PROT 7.4 g/dl (6.4-8.2)
[2019-10-24] MEDS ORDERED: ALBUTEROL SO4 2.5/IPRATROPIUM 0.5 INH SOL 3 ML VIAL.NEB. NEB ONE ×2 (09:14→09:26)
[2019-10-24] MEDS ORDERED: ACETAMINOPHEN 1000 MG/100 ML VIAL (NON FORMULARY) IVPB ONE ×3 (09:23→22:35)
[2019-10-24] MEDS ORDERED: ACETAMINOPHEN INJECTION 100 ML IVPB ONE ×2 (09:27→15:41)
[2019-10-24] MEDS ORDERED: ALBUTEROL SO4 HFA INHALER IH ONE (09:56)
--- NOTE | 2019-10-24 10:51 | PN ---
Teaching Attending Note Name of Resident: Wendy Coleman ATTENDING PHYSICIAN STATEMENT I saw and evaluated the patient. I reviewed the resident's note and discussed the case with the resident. I agree with the resident's findings and plan as documented. SUBJECTIVE: 53 year old female with medical history significant for IDDM, asthma, obesity, hypertension, atrial fib (on Xarelto), aspergillosis, severe cardiomyopathy with EF 30-35%, history of cocaine induced CO and CMP, chronic lower extremity wounds, nicotine use, recently discharged from the hospital 10/17/19 when he was admitted for CHF exacerbation who presents to the ED complaining of worsening shortness of breath at rest, cough, weight gain worse in the last 1-2 days. Denied fever or chills OBJECTIVE: Gen: 53 year old morbidly obese female who appears appropriate for stated age, not in any acute distress HEENT: EOMI neck: supple, no JVD elevation CVS: RRR, no murmurs abd: soft, nontender, nondistended, +BS ext: grade III pitting lower extremity edema, bilaterally. She has a chronic appearing ulcer at the posterior aspect of the distal 3rd of the RLE and the posterior aspect 2[address] of the LLE below the knee ASSESSMENT AND PLAN: 1. Acute on chronic systolic CHF - cont with diuresis - cardiac monitoring - daily weights; check I and O per shift - cycle troponins - will restart her other home cardiac meds - fluid restrict 2. IDDM - cont 2 gram sodium/ADA diet - cont SSI, accuchecks - check A1c 3. Afib - cont Ac with Xarelto 4. Hypomagnesemia - chronic. - cont oral magnesium. 5. DVT prophylaxis - on Xarelto (#3) Case discussed with Dr Coleman and agree with plans history, physical exam findings and plans of care. Problem List - Problems (1) Acute systolic congestive heart failure Code(s): I50.21 - ACUTE SYSTOLIC (CONGESTIVE) HEART FAILURE
--- NOTE | 2019-10-24 13:01 | HP ---
<Wendy Coleman - Last Filed: 10/25/19 07:35> CHIEF COMPLAINT: shortness of breath PCP: Dr. 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 Will), nicotine abuse, and recent admission for CHF exacerbation (10/12-10/16) who presents to the emergency department with 1 week of worsening shortness of breath at rest and with exertion, worsening cough, and subjective weight gain and worsening b/l leg edema, L worse than R. Of note, she was recently discharged on 10/17/19 for acute CHF exacerbation and discharged on Lasix 40 BID. Today, she states she has worsening RLE pain due to a nonhealing wound ulcer on her posterior L calf and worsening leg edema. Admits to orthopnea and kumari. Denies fever/chills, nausea/vomiting, chest pain, abd pain, urinary/bowel symptoms. States she has been taking all of her home meds as prescribed. Has not been able to follow up with her outpatient PCP, cardio or wound clinic since she her last discharge. ER course was notable for: (1) Afebrile, HR 105, 99 RA (2) IV Lasix 40, IV Tylenol given (3) CXR: Large heart, no acute chest pathology. Recent Travel: Denies PAST MEDICAL HISTORY: As per HPI PAST SURGICAL HISTORY: L knee surgery cholecystectomy fibroid removal FAMILY HISTORY: -Mother of cancer unspecified age possibly at 60 years old she did not bladimir mber the type of cancer, -father of some undetermined illness she does not remember Social History: Smokin cig daily Alcohol: Denies Drugs: Denies Allergies amoxicillin trihydrate [From Augmentin] Allergy (Intermediate, Verified 10/24/19 06:47) Swelling potassium clavulanate [From Augmentin] Allergy (Intermediate, Verified 10/24/19 06:47) Swelling amoxicillin Allergy (Verified 10/24/19 06:47) HOME MEDICATIONS: Home Medications Medication Instructions Recorded Insulin Aspart [Novolog] 16 units SQ TID 06/30/19 Loratadine 10 mg PO DAILY PRN 06/30/19 Cholecalciferol (Vitamin D3) 50,000 unit PO WEEKLY 09/16/19 [Vitamin D3 -] Fluticasone Propion/Salmeterol 1 inhaler IN BID 09/16/19 [Wixela 500-50 Inhub] Insulin Glargine,Hum.rec.anlog 30 unit SQ AM 09/16/19 [Basaglar Kwikpen U-100] Acetaminophen [Tylenol .Regular 650 mg PO Q6H PRN tablet 10/17/19 Strength -] Carvedilol 3.125 mg PO BID #60 tablet 10/17/19 Clopidogrel Bisulfate [Clopidogrel] 75 mg PO DAILY #30 tablet 10/17/19 Collagenase Clostridium Hist. 1 applic TP DAILY #1 tube 10/17/19 [Santyl -] Diaper,Brief,Adult, Disposable 1 each MC PRN #30 each 10/17/19 [Brief] Digoxin [Lanoxin -] 0.125 mg PO DAILY #30 tablet 10/17/19 Docusate Sodium [Colace -] 100 mg PO TID #90 capsule 10/17/19 Furosemide [Lasix -] 40 mg PO BID@0600,1400 #60 tablet 10/17/19 Insulin Sliding Scale [Novolog 1 vial SQ ACHS units 10/17/19 Vial Sliding Scale -] Losartan Potassium [Cozaar -] 50 mg PO DAILY #30 tablet 10/17/19 Montelukast Sodium [Singulair] 10 mg PO HS #30 tablet 10/17/19 Pantoprazole Sodium [Protonix -] 40 mg PO DAILY #30 tab 10/17/19 Rivaroxaban [Xarelto -] 20 mg PO DAILY #30 tablet 10/17/19 Sacubitril/Valsartan [Entresto 24 1 tab PO BID #60 tablet 10/17/19 mg-26 mg Tablet] Spironolactone [Aldactone -] 25 mg PO BID #60 tablet 10/17/19 Ipratropium/Albuterol Sulfate 4 gm IH QID PRN 10/24/19 [Combivent Respimat Inhal Rankin] Magnesium Oxide 400 mg PO DAILY 10/24/19 REVIEW OF SYSTEMS CONSTITUTIONAL: unintentional weight gain Absent: fever, chills, diaphoresis, generalized weakness, malaise, loss of appetite, HEENT: Absent: rhinorrhea, nasal congestion, throat pain, throat swelling, difficulty swallowing, mouth swelling, ear pain, eye pain, visual changes CARDIOVASCULAR: peripheral edema Absent: chest pain, syncope, palpitations, irregular heart rate, lightheadedness, RESPIRATORY: shortness of breath, dyspnea with exertion, orthopnea Absent: cough, wheezing, stridor, hemoptysis GASTROINTESTINAL: Absent: abdominal pain, abdominal distension, nausea, vomiting, diarrhea, constipation, melena, hematochezia GENITOURINARY: Absent: dysuria, frequency, urgency, hesitancy, hematuria, flank pain, genital pain MUSCULOSKELETAL: Absent: myalgia, arthralgia, joint swelling, back pain, neck pain SKIN: skin lesion on posterior calf of L leg Absent: rash, itching, pallor HEMATOLOGIC/IMMUNOLOGIC: Absent: easy bleeding, easy bruising, lymphadenopathy, frequent infections ENDOCRINE: Absent: unexplained weight gain, unexplained weight loss, heat intolerance, cold intolerance NEUROLOGIC: Absent: headache, focal weakness or paresthesias, dizziness, unsteady gait, seizure, mental status changes, bladder or bowel incontinence PSYCHIATRIC: Absent: anxiety, depression, suicidal or homicidal ideation, hallucinations. PHYSICAL EXAMINATION Vital Signs - 24 hr 10/24/19 10/24/19 10/24/19 06:41 06:46 08:43 Temperature 97.7 F Pulse Rate 105 H Pulse Rate [ Left] Respiratory 22 H Rate Blood Pressure 141/96 Blood Pressure [Left Arm] O2 Sat by Pulse 100 100 100 Oximetry (%) 10/24/19 12:16 Temperature 98.4 F Pulse Rate Pulse Rate [ 85 Left] Respiratory 20 Rate Blood Pressure Blood Pressure 143/85 [Left Arm] O2 Sat by Pulse 99 Oximetry (%) GENERAL: Tearful, -Monegasque female. Mildly uncomfortable in bed. HEENT: AT/NC. EOMI. MMM. NECK: Normal range of motion, supple without lymphadenopathy, JVD, or masses. LUNGS: Distant breath sounds. No wheezes, rales noted. HEART: Irregularly irregular. No murmurs noted. ABDOMEN: Obese. Soft, NT/ND. Normoactive bowel sounds. MUSCULOSKELETAL: Normal range of motion at all joints. No bony deformities or tenderness. No CVA tenderness. EXTREMITIES: 3+ b/l LE edema, 2+ b/l dorsalis pedis pulses NEUROLOGICAL: Cranial nerves II-XII intact. Normal speech. Normal gait. PSYCHIATRIC: Cooperative. Good eye contact. Appropriate mood and affect. SKIN: ~3cm non-healing wound ulcer on the L posterior calf, non-draining, non- erythematous. CBCD WBC 7.4 K/mm3 (4.0-10.0) 10/24/19 07:42 RBC 4.33 M/mm3 (3.60-5.2) 10/24/19 07:42 Hgb 11.3 GM/dL (10.7-15.3) 10/24/19 07:42 Hct 36.6 % (32.4-45.2) 10/24/19 07:42 MCV 84.5 fl (80-96) 10/24/19 07:42 MCHC 30.7 g/dl (32.0-36.0) L 10/24/19 07:42 RDW 17.1 % (11.6-15.6) H 10/24/19 07:42 Plt Count 289 K/MM3 (134-434) 10/24/19 07:42 MPV 9.3 fl (7.5-11.1) 10/24/19 07:42 CMP Sodium 138 mmol/L (136-145) 10/24/19 07:42 Potassium 4.8 mmol/L (3.5-5.1) 10/24/19 07:42 Chloride 103 mmol/L (98-107) 10/24/19 07:42 Carbon Dioxide 23 mmol/L (21-32) 10/24/19 07:42 Anion Gap 12 MMOL/L (8-16) 10/24/19 07:42 BUN 13.0 mg/dL (7-18) 10/24/19 07:42 Creatinine 1.0 mg/dL (0.55-1.3) 10/24/19 07:42 Calcium 9.8 mg/dL (8.5-10.1) 10/24/19 07:42 Total Bilirubin 1.2 mg/dL (0.2-1) H 10/24/19 07:42 AST 39 U/L (15-37) H 10/24/19 07:42 ALT 35 U/L (13-61) 10/24/19 07:42 Alkaline Phosphatase 138 U/L (45-117) H 10/24/19 07:42 Total Protein 7.4 g/dl (6.4-8.2) 10/24/19 07:42 Albumin 3.4 g/dl (3.4-5.0) 10/24/19 07:42 Home Medication List Medication Instructions Recorded Confirmed Type Insulin Aspart [Novolog] 16 units SQ TID 06/30/19 10/24/19 History Loratadine 10 mg PO DAILY PRN 06/30/19 10/24/19 History Cholecalciferol (Vitamin D3) 50,000 unit PO WEEKLY 09/16/19 10/24/19 History [Vitamin D3 -] Fluticasone Propion/Salmeterol 1 inhaler IN BID 09/16/19 10/24/19 History [Wixela 500-50 Inhub] Insulin Glargine,Hum.rec.anlog 30 unit SQ AM 09/16/19 10/24/19 History [Basaglar Kwikpen U-100] Ipratropium/Albuterol Sulfate 4 gm IH QID PRN 10/24/19 10/24/19 History [Combivent Respimat Inhal Rankin] Magnesium Oxide 400 mg PO DAILY 10/24/19 10/24/19 History Active Medications Generic Name Dose Route Start Last Admin Trade Name Freq PRN Reason Stop Dose Admin Budesonide/Formoterol Fumarate 2 puff 10/24/19 22:00 Symbicort 160/4.5mcg - IH BID SOREN Carvedilol 3.125 mg 10/24/19 14:00 10/24/19 14:27 Coreg - PO 3.125 mg BID SOREN Administration Clopidogrel Bisulfate 75 mg 10/24/19 14:00 10/24/19 14:28 Plavix - PO 75 mg DAILY SOREN Administration Collagenase 1 applic 10/24/19 14:00 10/24/19 14:28 Santyl - TP Not Given DAILY SOREN Protocol Digoxin 0.125 mg 10/24/19 14:00 10/24/19 14:28 Lanoxin - PO 0.125 mg DAILY SOREN Administration Docusate Sodium 100 mg 10/24/19 14:00 10/24/19 14:27 Colace - PO Not Given TID SOREN Furosemide 40 mg 10/25/19 06:00 Lasix Injection - IVPUSH BID@0600,1400 [facility] Insulin Aspart 1 vial 10/24/19 16:30 Novolog Vial Sliding Scale - SQ ACHS [facility] Protocol Loratadine 10 mg 10/24/19 13:57 Claritin - PO DAILY PRN ALLERGIES Losartan Potassium 50 mg 10/24/19 14:00 10/24/19 14:27 Cozaar - PO 50 mg DAILY SOREN Administration Magnesium Oxide 400 mg 10/24/19 14:00 10/24/19 14:28 Mag-Ox - PO 400 mg DAILY SOREN Administration Montelukast Sodium 10 mg 10/24/19 22:00 Singulair - PO HS SOREN Pantoprazole Sodium 40 mg 10/24/19 14:00 10/24/19 14:28 Protonix - PO 40 mg DAILY SOREN Administration Rivaroxaban 20 mg 10/24/19 18:00 Xarelto PO DAILY@1800 [facility] Sacubitril/Valsartan 1 tab 10/24/19 15:00 Entresto 24 Mg-26 Mg Tablet PO BID [facility] Spironolactone 25 mg 10/24/19 14:00 10/24/19 14:27 Aldactone - PO 25 mg BID SOREN Administration IMAGING: * CXR: Large heart. No acute disease. 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 Will), nicotine abuse, and recent admission for CHF exacerbation (10/12-10/16) who presents to the emergency department with 1 week of worsening shortness of breath at rest and with exertion, worsening cough, and subjective weight gain and worsening b/l leg edema, L worse than R admitted for acute on chronic CHF exacerbation. #Pulmonary Congestion; has hx of systolic CHF -IV Lasix 40 mg given in ED; will cont with IV Lasix 40 BID for now -Daily weights/I&Os Cont home meds: Spironolactone 25 BID, Losartan 50, Coreg 3.125 BID, Entresto BID, Digoxin 0.125 #B/l Lower Extremity Pain/Swelling; likely multifactorial 2/2 hx of CHF and chronic LE leg wounds. -Wound care consulted -Cont Santyl daily; will need close outpatient follow up at [facility] -Keep b/l LE elevated above level of chest -PT #Supratherapeutic INR; 3.03. Not currently on coumadin. Will cont to trend. #Hypomagnesemia; Chronic. Cont current med: Mag Ox 400 #Afib; Rate-controlled, HR 85. Cont home meds: Coreg 3.125 BID, Xarelto 75 #IDDM; Hold home DM meds. BGM/ISS ACHS. #Prophylaxis DVT: Supratherapeutic INR, will cont with home Xarelto GI: Cont home Protonix 40 #FEN -no IVf -recheck lytes in AM (Mg) -Diabetic/sodium diet Dispo -admit to med-surg obs ATTENDING PHYSICIAN STATEMENT I saw and evaluated the patient. I reviewed the resident's note and discussed the case with the resident. I agree with the resident's findings and plan as documented. SUBJECTIVE: OBJECTIVE: ASSESSMENT AND PLAN: <Ami Alvarez - Last Filed: 11/08/19 13:26> CHIEF COMPLAINT: PCP: HISTORY OF PRESENT ILLNESS: ER course was notable for: (1) (2) (3) Recent Travel: PAST MEDICAL HISTORY: PAST SURGICAL HISTORY: Social History: Smoking: Alcohol: Drugs: Allergies amoxicillin trihydrate [From Augmentin] Allergy (Intermediate, Verified 10/24/19 06:47) Swelling potassium clavulanate [From Augmentin] Allergy (Intermediate, Verified 10/24/19 06:47) Swelling amoxicillin Allergy (Verified 10/24/19 06:47) HOME MEDICATIONS: Home Medications Medication Instructions Recorded Insulin Aspart [Novolog] 16 units SQ TID 06/30/19 Loratadine 10 mg PO DAILY PRN 06/30/19 Cholecalciferol (Vitamin D3) 50,000 unit PO WEEKLY 09/16/19 [Vitamin D3 -] Fluticasone Propion/Salmeterol 1 inhaler IN BID 09/16/19 [Wixela 500-50 Inhub] Insulin Glargine,Hum.rec.anlog 30 unit SQ AM 09/16/19 [Basaglar Kwikpen U-100] Acetaminophen [Tylenol .Regular 650 mg PO Q6H PRN tablet 10/17/19 Strength -] Carvedilol 3.125 mg PO BID #60 tablet 10/17/19 Clopidogrel Bisulfate [Clopidogrel] 75 mg PO DAILY #30 tablet 10/17/19 Collagenase Clostridium Hist. 1 applic TP DAILY #1 tube 10/17/19 [Santyl -] Diaper,Brief,Adult, Disposable 1 each MC PRN #30 each 10/17/19 [Brief] Digoxin [Lanoxin -] 0.125 mg PO DAILY #30 tablet 10/17/19 Docusate Sodium [Colace -] 100 mg PO TID #90 capsule 10/17/19 Furosemide [Lasix -] 40 mg PO BID@0600,1400 #60 tablet 10/17/19 Insulin Sliding Scale [Novolog 1 vial SQ ACHS units 10/17/19 Vial Sliding Scale -] Losartan Potassium [Cozaar -] 50 mg PO DAILY #30 tablet 10/17/19 Montelukast Sodium [Singulair] 10 mg PO HS #30 tablet 10/17/19 Pantoprazole Sodium [Protonix -] 40 mg PO DAILY #30 tab 10/17/19 Rivaroxaban [Xarelto -] 20 mg PO DAILY #30 tablet 10/17/19 Sacubitril/Valsartan [Entresto 24 1 tab PO BID #60 tablet 10/17/19 mg-26 mg Tablet] Spironolactone [Aldactone -] 25 mg PO BID #60 tablet 10/17/19 Ipratropium/Albuterol Sulfate 4 gm IH QID PRN 10/24/19 [Combivent Respimat Inhal Rankin] Magnesium Oxide 400 mg PO DAILY 10/24/19 REVIEW OF SYSTEMS CONSTITUTIONAL: Absent: fever, chills, diaphoresis, generalized weakness, malaise, loss of appetite, weight change HEENT: Absent: rhinorrhea, nasal congestion, throat pain, throat swelling, difficulty swallowing, mouth swelling, ear pain, eye pain, visual changes CARDIOVASCULAR: Absent: chest pain, syncope, palpitations, irregular heart rate, li ghtheadedness, peripheral edema RESPIRATORY: Absent: cough, shortness of breath, dyspnea with exertion, orthopnea, wheezing, stridor, hemoptysis GASTROINTESTINAL: Absent: abdominal pain, abdominal distension, nausea, vomiting, diarrhea, constipation, melena, hematochezia GENITOURINARY: Absent: dysuria, frequency, urgency, hesitancy, hematuria, flank pain, genital pain MUSCULOSKELETAL: Absent: myalgia, arthralgia, joint swelling, back pain, neck pain SKIN: Absent: rash, itching, pallor HEMATOLOGIC/IMMUNOLOGIC: Absent: easy bleeding, easy bruising, lymphadenopathy, frequent infections ENDOCRINE: Absent: unexplained weight gain, unexplained weight loss, heat intolerance, cold intolerance NEUROLOGIC: Absent: headache, focal weakness or paresthesias, dizziness, unsteady gait, seizure, mental status changes, bladder or bowel incontinence PSYCHIATRIC: Absent: anxiety, depression, suicidal or homicidal ideation, hallucinations. PHYSICAL EXAMINATION Vital Signs - 24 hr 10/24/19 10/24/19 10/24/19 06:41 06:46 08:43 Temperature 97.7 F Pulse Rate 105 H Pulse Rate [ Left] Respiratory 22 H Rate Blood Pressure 141/96 Blood Pressure [Left Arm] O2 Sat by Pulse 100 100 100 Oximetry (%) 10/24/19 10/24/19 12:16 14:27 Temperature 98.4 F 98.2 F Pulse Rate Pulse Rate [ 85 99 H Left] Respiratory 20 20 Rate Blood Pressure Blood Pressure 143/85 155/99 [Left Arm] O2 Sat by Pulse 99 99 Oximetry (%) GENERAL: Awake, alert, and fully oriented, in no acute distress. HEAD: Normal with no signs of trauma. EYES: Pupils equal, round and reactive to light, extraocular movements intact, sclera anicteric, conjunctiva clear. No lid lag. EARS, NOSE, THROAT: Ears normal, nares patent, oropharynx clear without exudates. Moist mucous membranes. NECK: Normal range of motion, supple without lymphadenopathy, JVD, or masses. LUNGS: Breath sounds equal, clear to auscultation bilaterally. No wheezes, and no crackles. No accessory muscle use. HEART: Regular rate and rhythm, normal S1 and S2 without murmur, rub or gallop. ABDOMEN: Soft, nontender, not distended, normoactive bowel sounds, no guarding, no rebound, no masses. No hepatomegaly or splenomegaly. MUSCULOSKELETAL: Normal range of motion at all joints. No bony deformities or tenderness. No CVA tenderness. UPPER EXTREMITIES: 2+ pulses, warm, well-perfused. No cyanosis. No clubbing. No peripheral edema. LOWER EXTREMITIES: 2+ pulses, warm, well-perfused. No calf tenderness. No peripheral edema. NEUROLOGICAL: Cranial nerves II-XII intact. Normal speech. Normal gait. PSYCHIATRIC: Cooperative. Good eye contact. Appropriate mood and affect. SKIN: Warm, dry, normal turgor, no rashes or lesions noted, normal capillary refill. Laboratory Results - last 24 hr 10/24/19 10/24/19 10/24/19 07:42 07:42 07:42 WBC 7.4 RBC 4.33 Hgb 11.3 Hct 36.6 MCV 84.5 MCH 26.0 MCHC 30.7 L RDW 17.1 H Plt Count 289 MPV 9.3 Absolute Neuts (auto) 4.8 Neutrophils % 65.3 D Lymphocytes % 22.5 D Monocytes % 7.5 Eosinophils % 1.4 Basophils % 3.3 H Nucleated RBC % 0 PT with INR 36.10 H INR 3.03 H Sodium 138 Potassium 4.8 Chloride 103 Carbon Dioxide 23 Anion Gap 12 BUN 13.0 Creatinine 1.0 Est GFR (CKD-EPI)AfAm 74.49 Est GFR (CKD-EPI)NonAf 64.27 Random Glucose 149 H Calcium 9.8 Magnesium 1.7 L Total Bilirubin 1.2 H AST 39 H ALT 35 Alkaline Phosphatase 138 H Creatine Kinase 153 Creatine Kinase Index 1.6 CK-MB (CK-2) 2.6 Troponin I 0.03 B-Natriuretic Peptide 4701.2 H Total Protein 7.4 Albumin 3.4 Digoxin 10/24/19 07:42 WBC RBC Hgb Hct MCV MCH MCHC RDW Plt Count MPV Absolute Neuts (auto) Neutrophils % Lymphocytes % Monocytes % Eosinophils % Basophils % Nucleated RBC % PT with INR INR Sodium Potassium Chloride Carbon Dioxide Anion Gap BUN Creatinine Est GFR (CKD-EPI)AfAm Est GFR (CKD-EPI)NonAf Random Glucose Calcium Magnesium Total Bilirubin AST ALT Alkaline Phosphatase Creatine Kinase Creatine Kinase Index CK-MB (CK-2) Troponin I B-Natriuretic Peptide Total Protein Albumin Digoxin 1.24 ASSESSMENT/PLAN: Problem List - Problem (1) CHF exacerbation Code(s): I50.9 - HEART FAILURE, UNSPECIFIED Qualifiers: Heart failure type: systolic Qualified Code(s): I50.23 - Acute on chronic systolic (congestive) heart failure Visit type - Emergency Visit Emergency Visit: Yes ED Registration Date: 10/26/19 Care time: The patient presented to the Emergency Department on the above date and was hospitalized for further evaluation of their emergent condition. - New Patient This patient is new to me today: Yes Date on this admission: 11/08/19 - Critical Care Critical Care patient: No ATTENDING PHYSICIAN STATEMENT I saw and evaluated the patient. I reviewed the resident's note and discussed the case with the resident. I agree with the resident's findings and plan as documented. SUBJECTIVE: OBJECTIVE: ASSESSMENT AND PLAN:
--- NOTE | 2019-10-24 13:16 | EKG ---
Test Reason : Blood Pressure : / mmHG Vent. Rate : 104 BPM Atrial Rate : 129 BPM P-R Int : 000 ms QRS Dur : 094 ms QT Int : 354 ms P-R-T Axes : 000 089 118 degrees QTc Int : 465 ms ATRIAL FIBRILLATION WITH RAPID VENTRICULAR RESPONSE LATERAL INFARCT , AGE UNDETERMINED ABNORMAL ECG WHEN COMPARED WITH ECG OF 13-OCT-2019 06:56, LATERAL INFARCT IS NOW PRESENT NONSPECIFIC T WAVE ABNORMALITY NO LONGER EVIDENT IN INFERIOR LEADS Confirmed by MD Christ, Fili ([id number]) on 10/24/2019 1:16:03 PM Referred By: Confirmed By:Fili Polo MD
[2019-10-24] MEDS ORDERED: LORATADINE 10 MG TABLET PO PRN (13:57)
[2019-10-24] MEDS ORDERED: LOSARTAN POTASSIUM 50 MG TABLET (FP) PO SCH (14:00)
[2019-10-24] MEDS ORDERED: CLOPIDOGREL BISULFATE 75 MG TABLET (FP) PO SCH (14:00)
[2019-10-24] MEDS ORDERED: PANTOPRAZOLE 40 MG TABLET ONE (14:12)
[2019-10-24] MEDS ORDERED: CARVEDILOL 3.125 MG TABLET (FP) ONE ×2 (14:12→21:47)
[2019-10-24] MEDS ORDERED: CLOPIDOGREL BISULFATE 75 MG TABLET (FP) ONE (14:13)
[2019-10-24] MEDS ORDERED: LOSARTAN POTASSIUM 50 MG TABLET (FP) ONE (14:13)
[2019-10-24] MEDS ORDERED: DIGOXIN 0.125 MG TABLET (FP) ONE (14:13)
[2019-10-24] MEDS ORDERED: DOCUSATE SODIUM 100 MG CAPSULE (FP) PO ONE ×2 (14:13→21:47)
[2019-10-24] MEDS ORDERED: MAGNESIUM OXIDE 400 MG TABLET (FP) ONE (14:13)
[2019-10-24] MEDS ORDERED: SPIRONOLACTONE 25 MG TABLET ONE ×2 (14:14→21:48)
[2019-10-24] MEDS: SPIRONOLACTONE 25 MG TABLET PO SCH ×2 (14:27→22:15)
[2019-10-24] MEDS: CARVEDILOL 3.125 MG TABLET (FP) PO SCH ×2 (14:27→22:16)
[2019-10-24] MEDS: DOCUSATE SODIUM 100 MG CAPSULE (FP) PO SCH ×2 (14:27→22:15)
[2019-10-24] MEDS: PANTOPRAZOLE 40 MG TABLET PO SCH (14:28)
[2019-10-24] MEDS: DIGOXIN 0.125 MG TABLET (FP) PO SCH (14:28)
[2019-10-24] MEDS: COLLAGENASE CLOSTRIDIUM HIST. 30 GRAMS TUBE TP SCH (14:28)
[2019-10-24] MEDS: MAGNESIUM OXIDE 400 MG TABLET (FP) PO SCH (14:28)
--- NOTE | 2019-10-24 14:44 | CONSULT ---
- Consultation REQUESTING PROVIDER: Pablo Perez - Wound Care CONSULT REQUEST: We have been asked to surgically evaluate this patient for chronic LE wounds PCP: Dr. Espinoza Hospitalist: Ami Alvarez MD HPI: called to [facility] 53 [facility] F w/ pmhx as noted below. admitted with increased sob x1 week. patient has h/o chronic le edema/wounds...followed by dr. perez. PMHx: IDDM, asthma, obesity, htn, Afib, aspergillosis, systolic CHF (EF 30-35%), cocaine abuse, [place] (05/20 to cocaine 09/2018), chronic cough, chronic le edema/wounds, nicotine abuse PSHx: L knee surgery. Cholecystectomy. Fibroid removal PE: GEN: alet. nad MUSCULOSKELETAL: Normal ROM at all joints. No bony deformities or tenderness. No CVA tenderness. EXTREMITIES: 3+ b/l LE edema, 2+ b/l DP SKIN: ~3cm non-healing wound to Left posterior calf, non-draining, non- erythematous. Not boggy/indurated. Not malodorous Last Vital Signs Temp Pulse Resp BP Pulse Ox 98.2 F 99 H 20 155/99 99 10/24/19 14:27 10/24/19 14:27 10/24/19 14:27 10/24/19 14:27 10/24/19 14:27 CBC, BMP 10/24/19 07:42 10/24/19 07:42 Serology Test 09/16/19 10/24/19 14:25 09:28 COVID-19 ([place]) Not detected Pending Problem List - Problems (1) Diabetic ulcer of calf Assessment/Plan: -local wound care -Elevate the lower extremity above the level of the heart at all times while at rest -f/u with [facility] in [facility] -No further surgical input. reconsult PRN -Above plan discussed with Dr. Perez and agrees. Code(s): E11.622 - TYPE 2 DIABETES MELLITUS WITH OTHER SKIN ULCER; L97.209 - NON-PRESSURE CHRONIC ULCER OF UNSP CALF WITH UNSP SEVERITY (2) Acute systolic congestive heart failure Code(s): I50.21 - ACUTE SYSTOLIC (CONGESTIVE) HEART FAILURE (3) Atrial fibrillation Code(s): I48.91 - UNSPECIFIED ATRIAL FIBRILLATION (4) Cocaine abuse Code(s): F14.10 - COCAINE ABUSE, UNCOMPLICATED (5) Cough Code(s): R05 - COUGH (6) FERRER (dyspnea on exertion) Code(s): R06.09 - OTHER FORMS OF DYSPNEA Visit type - Case Type Case Type: ED Admission - Emergency Emergency Visit: Yes ED Registration Date: 10/24/19 Care time: The patient presented to the Emergency Department on the above date and was hospitalized for further evaluation of their emergent condition. - New patient This patient is new to me today: Yes Date on this admission: 10/24/19
[2019-10-24] MEDS: SACUBITRIL/VALSARTAN 24 MG-26 MG TABLET PO SCH ×2 (17:04→22:16)
[2019-10-24] MEDS: RIVAROXABAN 20 MG TABLET PO SCH (17:04)
[2019-10-24] MEDS: INSULIN SLIDING SCALE (NOVOLOG) 1 VIAL SQ SCH ×2 (18:01→22:16)
[2019-10-24] MEDS ORDERED: MONTELUKAST NA 10 MG TABLET ONE (21:48)
[2019-10-24] MEDS: MONTELUKAST NA 10 MG TABLET PO SCH (22:16)
[2019-10-24] MEDS: BUDESONIDE/FORMETEROL FUMARATE 160/4.5 mcg INHALER IH SCH (22:16)
[2019-10-25] MEDS ORDERED: ACETAMINOPHEN 1000 MG/100 ML VIAL (NON FORMULARY) IVPB ONE
[2019-10-25] MEDS ORDERED: FUROSEMIDE 40 MG/4 ML INJECTABLE VIAL ONE (05:06)
[2019-10-25] MEDS: FUROSEMIDE 40 MG/4 ML INJECTABLE VIAL IVPUSH SCH ×2 (05:25→14:56)
[2019-10-25] MEDS: DOCUSATE SODIUM 100 MG CAPSULE (FP) PO SCH ×4 (06:06→22:00)
[2019-10-25] MEDS: INSULIN SLIDING SCALE (NOVOLOG) 1 VIAL SQ SCH ×4 (07:43→22:00)
[2019-10-25] MEDS ORDERED: DIGOXIN 0.125 MG TABLET (FP) ONE (08:16)
[2019-10-25] MEDS ORDERED: PANTOPRAZOLE 40 MG TABLET ONE (08:16)
[2019-10-25] MEDS ORDERED: MAGNESIUM OXIDE 400 MG TABLET (FP) ONE (08:16)
[2019-10-25] MEDS ORDERED: CARVEDILOL 3.125 MG TABLET (FP) ONE (08:16)
[2019-10-25] MEDS ORDERED: SPIRONOLACTONE 25 MG TABLET ONE (08:17)
[2019-10-25] MEDS ORDERED: LOSARTAN POTASSIUM 50 MG TABLET (FP) ONE (08:17)
[2019-10-25] MEDS ORDERED: CLOPIDOGREL BISULFATE 75 MG TABLET (FP) ONE (08:17)
[2019-10-25] MEDS: PANTOPRAZOLE 40 MG TABLET PO SCH (09:03)
[2019-10-25] MEDS: SPIRONOLACTONE 25 MG TABLET PO SCH ×2 (09:03→21:59)
[2019-10-25] MEDS: DIGOXIN 0.125 MG TABLET (FP) PO SCH (09:03)
[2019-10-25] MEDS: BUDESONIDE/FORMETEROL FUMARATE 160/4.5 mcg INHALER IH SCH ×2 (09:03→21:17)
[2019-10-25] MEDS: CARVEDILOL 3.125 MG TABLET (FP) PO SCH ×2 (09:03→21:14)
[2019-10-25] MEDS: MAGNESIUM OXIDE 400 MG TABLET (FP) PO SCH (09:03)
[2019-10-25] MEDS: SACUBITRIL/VALSARTAN 24 MG-26 MG TABLET PO SCH ×2 (09:30→21:14)
[2019-10-25] MEDS: COLLAGENASE CLOSTRIDIUM HIST. 30 GRAMS TUBE TP SCH (10:08)
[2019-10-25] MEDS ORDERED: traMADol HCL 50 MG TABLET PO SCH (10:45)
[2019-10-25] MEDS ORDERED: traMADol HCL 50 MG TABLET ONE (10:53)
[2019-10-25] MEDS ORDERED: INSULIN SLIDING SCALE (NOVOLOG) 1 VIAL SQ ONE (12:28)
--- NOTE | 2019-10-25 13:36 | CON.ID ---
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 patient has developed wound on the left leg now,the rt leg has healed - History Source History Provided By: Patient Limitations to Obtaining History: No Limitations - Past Medical History Cardio/Vascular: Yes: AFIB, CAD (NONOBSTRUCTIVE), CHF (EF 15-20%, with INC RVP,), HTN, Hyperlipdemia, Pulmonary Hypertension Pulmonary: Yes: Asthma, COPD, Sleep Apnea (LIKLEY BUT NEVER TESTED) ...LMP: 05/28/14 Psych: Yes: Anxiety Musculoskeletal: Yes: Chronic low back pain, Other (Other (right knee with healed scar, mild bilateral edema, stiffness, moves with difficulty)) Endocrine: Yes: Diabetes Mellitus - Past Surgical History Past Surgical History: Yes: Cholecystectomy, (3), Joint Replacement (LEFT KNEE) - Alcohol/Substance Use Hx Alcohol Use: No History of Substance Use: reports: Cocaine - Smoking History Smoking history: Current every day smoker Have you smoked in the past 12 months: Yes Aproximately how many cigarettes per day: 10 If you are a former smoker, when did you quit?: 2019 - Social History ADL: Independent History of Recent Travel: No Home Medications - Allergies Allergies/Adverse Reactions: Allergies Allergy/AdvReac Type Severity Reaction Status Date / Time amoxicillin trihydrate Allergy Intermediate Swelling Verified 10/24/19 06:47 [From Augmentin] potassium clavulanate Allergy Intermediate Swelling Verified 10/24/19 06:47 [From Augmentin] amoxicillin Allergy Verified 10/24/19 06:47 - Home Medications Home Medications: Ambulatory Orders Insulin Aspart [Novolog] 16 units SQ TID 06/30/19 Loratadine 10 mg PO DAILY PRN 06/30/19 Cholecalciferol (Vitamin D3) [Vitamin D3 -] 50,000 unit PO WEEKLY 09/16/19 Fluticasone Propion/Salmeterol [Wixela 500-50 Inhub] 1 inhaler IN BID 09/16/19 Insulin Glargine,Hum.rec.anlog [Basaglar Kwikpen U-100] 30 unit SQ AM 09/16/19 Acetaminophen [Tylenol .Regular Strength -] 650 mg PO Q6H PRN tablet 10/17/19 Carvedilol 3.125 mg PO BID #60 tablet 10/17/19 Clopidogrel Bisulfate [Clopidogrel] 75 mg PO DAILY #30 tablet 10/17/19 Collagenase Clostridium Hist. [Santyl -] 1 applic TP DAILY #1 tube 10/17/19 Diaper,Brief,Adult, Disposable [Brief] 1 each MC PRN #30 each 10/17/19 Digoxin [Lanoxin -] 0.125 mg PO DAILY #30 tablet 10/17/19 Docusate Sodium [Colace -] 100 mg PO TID #90 capsule 10/17/19 Furosemide [Lasix -] 40 mg PO BID@0600,1400 #60 tablet 10/17/19 Insulin Sliding Scale [Novolog Vial Sliding Scale -] 1 vial SQ ACHS units 10/17/19 Losartan Potassium [Cozaar -] 50 mg PO DAILY #30 tablet 10/17/19 Montelukast Sodium [Singulair] 10 mg PO HS #30 tablet 10/17/19 Pantoprazole Sodium [Protonix -] 40 mg PO DAILY #30 tab 10/17/19 Rivaroxaban [Xarelto -] 20 mg PO DAILY #30 tablet 10/17/19 Sacubitril/Valsartan [Entresto 24 mg-26 mg Tablet] 1 tab PO BID #60 tablet 10/17/19 Spironolactone [Aldactone -] 25 mg PO BID #60 tablet 10/17/19 Ipratropium/Albuterol Sulfate [Combivent Respimat Inhal [place]] 4 gm IH QID PRN 10/24/19 Magnesium Oxide 400 mg PO DAILY 10/24/19 Bacitracin - [Bacitracin Topical Ointment -] 10/25/19 Gabapentin 300 mg PO TID 10/25/19 Review of Systems - Review of Systems Constitutional: reports: No Symptoms Eyes: reports: No Symptoms HENT: reports: No Symptoms Neck: reports: No Symptoms Cardiovascular: reports: No Symptoms Respiratory: reports: SOB Gastrointestinal: reports: No Symptoms Genitourinary: reports: No Symptoms Musculoskeletal: reports: Other Integumentary: reports: Other (wound on left leg) Neurological: reports: No Symptoms Endocrine: reports: No Symptoms Hematology/Lymphatic: reports: No Symptoms Psychiatric: reports: No Symptoms Physical Exam Vital Signs: Vital Signs Temperature 98.2 F 10/25/19 13:11 Pulse Rate 93 H 10/25/19 13:11 Respiratory Rate 10/25/19 13:11 Blood Pressure 121/74 10/25/19 13:11 O2 Sat by Pulse Oximetry (%) 98 10/25/19 10:00 Constitutional: Yes: Calm, Mild Distress, Obese Eyes: Yes: Conjunctiva Clear HENT: Yes: Atraumatic, Normocephalic Neck: Yes: Supple, Trachea Midline Cardiovascular: Yes: Pulse Irregular Respiratory: Yes: Regular, CTA Bilaterally Gastrointestinal: Yes: Normal Bowel Sounds, Soft Musculoskeletal: Yes: WNL Extremities: Yes: Other Edema: LLE: 1+, RLE: 1+ Integumentary: Yes: Other Wound/Incision: Yes: Other (wound left post leg with slough present) Neurological: Yes: Alert, Oriented Psychiatric: Yes: Alert, Oriented Labs: CBC, BMP 10/24/19 07:42 10/24/19 07:42 Imaging - Results Chest X-ray: Report Reviewed, Image Reviewed Assessment/Plan patient coming in with sob and ahs a new wound on the left leg which is infected and has slough present will start patient on abx also patient will need debridement will d/w the team
--- NOTE | 2019-10-25 13:43 | PN ---
Teaching Attending Note Name of Resident: Ibeth Whittington ATTENDING PHYSICIAN STATEMENT I saw and evaluated the patient. I reviewed the resident's note and discussed the case with the resident. I agree with the resident's findings and plan as documented. SUBJECTIVE: No fever or chills. Her SOB is better today. No CP during encounter and also denies any CP at home. has pain in legs. reprots whitish yellowish discharge from her L leg ulcer for a long time. she sees Dr. perez at wound care center. she admits to taking her lasix BID. she deos not remember all her meds. repeorts increase in LE edema OBJECTIVE: NAD, awake, cries form pain . MMM. CV: RRR, no MRG. No JVD Lungs: CTAB Abd: soft, obese, ND, NT. ext : 2 + edema on legs . L leg medial ulcer , 2.5 cm in diameter , white- yellowish layer /slough on wound. tender to touch . no erythema around wound. She declines moving the LLE due to pain in leg. sensation is normal in both LE s ASSESSMENT AND PLAN: 53 y/o lady with h/o chronic systolic heart failure, IDDM, asthma, obesity, hypertension, Afib, aspergillosis, , cocaine usage,, NSTEMI, , chronic lower extremity wounds (followed by Dr. Perez), nicotine abuse, who presented with LE edema and SOB. 1- SOB and LE edema, due to acute on chronic systolic CHF. trigger might be rapid A fib. No CP, ACS is not suspected. EKG with possible A flutter , no ST or TW changes. - SOB is already better with diuresis - cont lasix 40 IV BID - cont Entresto - Dc losartan . - cont but increase dose of coreg to control HR - no echo during last admission, will get one - weight and Low salt diet 2- A fib with RVR: - increase coreg - cont xarelto 3- DM : resume long acting insulin and cont SSI 4- L leg wound. I am not sure if wound is infected or not. - Will consult ID to eval. case was d.w Dr. Jayce molina by wound care team 5- H/o CAD: doubt ACS now. NSTEMi due to cocaine in past. per previous card notes, plavix was stopped. - will dc plavix and discuss with card HLOC
--- NOTE | 2019-10-25 14:52 | CON.CARD ---
Cardiology Consult (text) - Consultation Consultation Note: Chief Complaint: sob History of Present Illness: 53F h/o HTN, HLD, chronic systolic HF, DM p/w le edema. Several recent admits for chf. Went home and felt well initially. Reports taking lasix as prescribed . Past few days with increased le edema and orthopnea, pnd, kumari. No cp rest sob palps dizzy loc pnd. In ER got iv lasix and made a lot of urine and now reports her sxs have started to improve. Sees Dr. Oconnell for cardio. - Past Medical History Cardio/Vascular: Yes: HTN Pulmonary: Yes: Asthma, COPD Endocrine: Yes: Diabetes Mellitus - Alcohol/Substance Use Hx Alcohol Use: No - Smoking History Smoking history: Current every day smoker Have you smoked in the past 12 months: Yes Aproximately how many cigarettes per day: 10 Home Medications - Allergies Allergies/Adverse Reactions: Current Medications Generic Name Dose Route Start Last Admin Trade Name Freq PRN Reason Stop Dose Admin Acetaminophen 650 mg 10/25/19 10:34 Tylenol - PO Q6H PRN PAIN LEVEL 6-10 Budesonide/Formoterol Fumarate 2 puff 10/24/19 22:00 10/25/19 09:03 Symbicort 160/4.5mcg - IH 2 puff BID SOREN Administration Carvedilol 6.25 mg 10/25/19 22:00 Coreg - PO BID SOREN Collagenase 1 applic 10/24/19 14:00 10/25/19 10:08 Santyl - TP 1 applic DAILY SOREN Administration Protocol Digoxin 0.125 mg 10/24/19 14:00 10/25/19 09:03 Lanoxin - PO 0.125 mg DAILY SOREN Administration Docusate Sodium 100 mg 10/24/19 14:00 10/25/19 06:06 Colace - PO Not Given TID SOREN Furosemide 40 mg 10/25/19 06:00 10/25/19 05:25 Lasix Injection - IVPUSH 40 mg BID@0600,1400 SOREN Administration Ertapenem 1 gm/ Sodium 50 mls @ 100 mls/hr 10/25/19 13:45 Chloride IVPB DAILY SOREN Insulin Aspart 1 vial 10/24/19 16:30 10/25/19 12:32 Novolog Vial Sliding Scale - SQ 4 units ACHS SOREN Administration Protocol Loratadine 10 mg 10/24/19 13:57 Claritin - PO DAILY PRN ALLERGIES Magnesium Oxide 400 mg 10/24/19 14:00 10/25/19 09:03 Mag-Ox - PO 400 mg DAILY S[facility] Administration Montelukast Sodium 10 mg 10/24/19 22:00 10/24/19 22:16 Singulair - PO 10 mg HS SOREN Administration Pantoprazole Sodium 40 mg 10/24/19 14:00 10/25/19 09:03 Protonix - PO 40 mg DAILY SOREN Administration Rivaroxaban 20 mg 10/24/19 18:00 10/24/19 17:04 Xarelto PO 20 mg DAILY@1800 [facility] Administration Sacubitril/Valsartan 1 tab 10/24/19 15:00 10/25/19 09:30 Entresto 24 Mg-26 Mg Tablet PO 1 tab BID SOREN Administration Spironolactone 25 mg 10/24/19 14:00 10/25/19 09:03 Aldactone - PO 25 mg BID SOREN Administration Tramadol HCl 50 mg 10/25/19 10:45 10/25/19 10:59 Ultram - PO 10/26/19 10:44 50 mg ONCE SOREN Administration Family Disease History - Family Disease History Family Disease History: Diabetes: Sister (seven - ), Heart Disease: Sister, CA: Mother (), Respiratory: Sister, Other: Father (, etoh), Mother, Brother (four - one mental health problem), Sister, Son (five - asthma ), Daughter (one - healthy) Review of Systems - Review of Systems per hpi; all others nl Vital Signs Period Temp Pulse Resp BP Sys/Khanna Pulse Ox Last 24 Hr 97.5 F-98.5 F 76-98 17-20 109-145/59-93 98-100 Constitutional: Yes: No Distress, Calm Eyes: Yes: Conjunctiva Clear, EOM Intact HENT: Yes: Atraumatic, Normocephalic Neck: Yes: Supple, Trachea Midline Respiratory: cta bl nl eff Gastrointestinal: Yes: Normal Bowel Sounds, Soft Cardiovascular: Yes: Tachycardia JVD: No Carotid Bruit: No PMI: Non-Displaced Heart Sounds: Yes: S1, S2 Musculoskeletal: No: Back Pain Extremities: Yes: Cool Edema: Yes Edema: LLE: 1+, RLE: 1+ Peripheral Pulses WNL: Yes Peripheral Pulses: 2+ Left Doralis Pedis, 2+ Right Dorsalis Pedis Integumentary: No: Jaundice Neurological: Yes: Alert, Oriented Psychiatric: No: Agitated Laboratory Last Values WBC 7.4 K/mm3 (4.0-10.0) 10/24/19 07:42 RBC 4.33 M/mm3 (3.60-5.2) 10/24/19 07:42 Hgb 11.3 GM/dL (10.7-15.3) 10/24/19 07:42 Hct 36.6 % (32.4-45.2) 10/24/19 07:42 MCV 84.5 fl (80-96) 10/24/19 07:42 MCH 26.0 pg (25.7-33.7) 10/24/19 07:42 MCHC 30.7 g/dl (32.0-36.0) L 10/24/19 07:42 RDW 17.1 % (11.6-15.6) H 10/24/19 07:42 Plt Count 289 K/MM3 (134-434) 10/24/19 07:42 MPV 9.3 fl (7.5-11.1) 10/24/19 07:42 Absolute Neuts (auto) 4.8 K/mm3 (1.5-8.0) 10/24/19 07:42 Neutrophils % 65.3 % (42.8-82.8) D 10/24/19 07:42 Lymphocytes % 22.5 % (8-40) D 10/24/19 07:42 Monocytes % 7.5 % (3.8-10.2) 10/24/19 07:42 Eosinophils % 1.4 % (0-4.5) 10/24/19 07:42 Basophils % 3.3 % (0-2.0) H 10/24/19 07:42 Nucleated RBC % 0 % (0-0) 10/24/19 07:42 PT with INR 36.10 SEC (9.7-13.0) H 10/24/19 07:42 INR 3.03 (0.83-1.09) H 10/24/19 07:42 Sodium 138 mmol/L (136-145) 10/24/19 07:42 Potassium 4.8 mmol/L (3.5-5.1) 10/24/19 07:42 Chloride 103 mmol/L (98-107) 10/24/19 07:42 Carbon Dioxide 23 mmol/L (21-32) 10/24/19 07:42 Anion Gap 12 MMOL/L (8-16) 10/24/19 07:42 BUN 13.0 mg/dL (7-18) 10/24/19 07:42 Creatinine 1.0 mg/dL (0.55-1.3) 10/24/19 07:42 Est GFR (CKD-EPI)AfAm 74.49 10/24/19 07:42 Est GFR (CKD-EPI)NonAf 64.27 10/24/19 07:42 POC Glucometer 248 UNITS (80-120) 10/25/19 12:16 Random Glucose 149 mg/dL (74-106) H 10/24/19 07:42 Calcium 9.8 mg/dL (8.5-10.1) 10/24/19 07:42 Magnesium 1.7 mg/dL (1.8-2.4) L 10/24/19 07:42 Total Bilirubin 1.2 mg/dL (0.2-1) H 10/24/19 07:42 AST 39 U/L (15-37) H 10/24/19 07:42 ALT 35 U/L (13-61) 10/24/19 07:42 Alkaline Phosphatase 138 U/L (45-117) H 10/24/19 07:42 Creatine Kinase 153 U/L (26-192) 10/24/19 07:42 Creatine Kinase Index 1.6 % (0.0-5.0) 10/24/19 07:42 CK-MB (CK-2) 2.6 ng/mL (0.5-3.6) 10/24/19 07:42 Troponin I 0.03 ng/ml (0.00-0.05) 10/24/19 07:42 B-Natriuretic Peptide 4701.2 pg/ml (5-125) H 10/24/19 07:42 Total Protein 7.4 g/dl (6.4-8.2) 10/24/19 07:42 Albumin 3.4 g/dl (3.4-5.0) 10/24/19 07:42 Digoxin 1.24 ng/ml (0.8-2.0) 10/24/19 07:42 COVID-19 (JUNIE) Not detected (Not Detected) 10/24/19 09:28 EKG: afib, 104, nonspecific ST-T changes, stable compared to prior cxr: no chf echo 10/2018 dilated LV, severe global hypokinesis, EF 15-20%, RV mildly reduced function, LA mod dilated, mild MAC, mild MR, mild TR, RVSP >40-50 mmHg echo 09/2019: lve, lvef 30-35, mild dec rv fcn, mild mr a/p: 53F h/o HTN, HLD, afib, chronic systolic HF, DM p/w le edema, sob. acute on chronic systolic chf, NICM: -here with vol overload, cont iv lasix 40 bid. daily wts and chem7. -Likely NICM due to chronic HTN, cocaine use -cont Entresto, Coreg, aldactone -Cont Dig (level ok) -pt had not followed up for ICD as planned in past and her cocaine use is a relative contraindication. -recent echo 09/2019 with stable chronic findings, lvef slightly improved AFib: -rate ok, cont coreg, dig (level ok). can uptitrate coreg if needed for rate control. -cont xarelto CAD, NSTEMI: -pt presented with NSTEMI in 2018 but subsequent cath showed single vessel disease, medically managed with cardiomyopathy out of proportion to degree of CAD -no signs ACS here -cont bb, ac. statin stopped previously due to elevated lfts.
[2019-10-25] MEDS: ERTAPENEM SODIUM 1 GM in SODIUM CHLORIDE 50 ML IVPB SCH (14:56)
--- NOTE | 2019-10-25 16:13 | PN ---
Progress Note (short form) - Note Progress Note: VAsc[facility] Surgery Pt seen and examined. Left post calf ulcer. Slough. Will do debridement christina in the wound care center in the morning. Cont santyl to wound. Pablo Will DO
[2019-10-25] MEDS ORDERED: INSULIN (LEVEMIR) 100 UNITS/ML UNITS SQ ONE (17:17)
[2019-10-25] MEDS: ACETAMINOPHEN 325 MG TABLET (FP) PO PRN (17:31)
[2019-10-25] MEDS: RIVAROXABAN 20 MG TABLET PO SCH (17:47)
[2019-10-25 18:49] LABS: BLOOD UREA NITROGEN 17.9 mg/dL (7-18); CALCIUM 9.3 mg/dL (8.5-10.1); CREATININE 1.1 mg/dL (0.55-1.3); MAGNESIUM 1.5 mg/dL (1.8-2.4); PHOSPHOROUS 3.3 mg/dL (2.5-4.9); POTASSIUM 3.9 mmol/L (3.5-5.1)
--- NOTE | 2019-10-25 20:08 | PN ---
Physical Exam: SUBJECTIVE: No overnight events. Patient seen and examined. Pt has severe pain at LE ulcers. Endorses SOB. Denies CP, abd pain. ROS negative except as above OBJECTIVE: Vital Signs Period Temp Pulse Resp BP Sys/Khanna Pulse Ox Last 24 Hr 97.5 F-98.5 F 76-93 17-20 115-145/63-93 98-100 GENERAL: The patient is awake, alert, and fully oriented. Pt was in pain. HEENT: Normal with no signs of trauma. sclera anicteric. No ptosis. MMM NECK: No JVD LUNGS: distant Breath sounds, but CTAB. no wheezes, no crackles, no accessory muscle use. HEART: Regular rate and rhythm, S1, S2. no mgr ABDOMEN: obese, Soft, nontender, nondistended, normoactive bowel sounds, no guarding, EXTREMITIES: edema 2+ b/l LE. 2 cm ulcer on posterior calf. White appearing; NO erythema/fluctant. TTP. sensation intact b/l LE NEUROLOGICAL: Normal speech, gait not observed. PSYCH: Normal mood, normal affect. Laboratory Results - last 24 hr 10/24/19 10/24/19 10/25/19 09:28 22:00 12:16 Sodium Potassium Chloride Carbon Dioxide Anion Gap BUN Creatinine Est GFR (CKD-EPI)AfAm Est GFR (CKD-EPI)NonAf POC Glucometer 228 248 Random Glucose Calcium Phosphorus Magnesium COVID-19 ([place]UNIE) Not detected 10/25/19 10/25/19 16:55 17:24 Sodium 138 Potassium 3.9 Chloride 101 Carbon Dioxide 29 Anion Gap 9 BUN 17.9 Creatinine 1.1 Est GFR (CKD-EPI)AfAm 66.38 Est GFR (CKD-EPI)NonAf 57.27 POC Glucometer 195 Random Glucose 197 H Calcium 9.3 Phosphorus 3.3 Magnesium 1.5 L COVID-19 (JUNIE) Active Medications Generic Name Dose Route Start Last Admin Trade Name Freq PRN Reason Stop Dose Admin Acetaminophen 650 mg 10/25/19 10:34 10/25/19 17:31 Tylenol - PO 650 mg Q6H PRN Administration PAIN LEVEL 6-10 Budesonide/Formoterol Fumarate 2 puff 10/24/19 22:00 10/25/19 09:03 Symbicort 160/4.5mcg - IH 2 puff BID SOREN Administration Carvedilol 6.25 mg 10/25/19 22:00 Coreg - PO BID SOREN Collagenase 1 applic 10/24/19 14:00 10/25/19 10:08 Santyl - TP 1 applic DAILY [facility] Administration Protocol Digoxin 0.125 mg 10/24/19 14:00 10/25/19 09:03 Lanoxin - PO 0.125 mg DAILY SOREN Administration Docusate Sodium 100 mg 10/24/19 14:00 10/25/19 14:56 Colace - PO Not Given TID SOREN Furosemide 40 mg 10/25/19 06:00 10/25/19 14:56 Lasix Injection - IVPUSH 40 mg BID@0600,1400 SOREN Administration Ertapenem 1 gm/ Sodium 50 mls @ 100 mls/hr 10/25/19 13:45 10/25/19 14:56 Chloride IVPB 100 mls/hr DAILY SOREN Administration Insulin Aspart 1 vial 10/24/19 16:30 10/25/19 17:26 Novolog Vial Sliding Scale - SQ 2 units ACHS [facility] Administration Protocol Insulin Detemir 25 units 10/26/19 10:00 Levemir Vial SQ DAILY S[facility] Loratadine 10 mg 10/24/19 13:57 Claritin - PO DAILY PRN ALLERGIES Magnesium Oxide 400 mg 10/24/19 14:00 10/25/19 09:03 Mag-Ox - PO 400 mg DAILY SOREN Administration Montelukast Sodium 10 mg 10/24/19 22:00 10/24/19 22:16 Singulair - PO 10 mg HS SOREN Administration Pantoprazole Sodium 40 mg 10/24/19 14:00 10/25/19 09:03 Protonix - PO 40 mg DAILY SOREN Administration Rivaroxaban 20 mg 10/24/19 18:00 10/25/19 17:47 Xarelto PO 20 mg DAILY@1800 [facility] Administration Sacubitril/Valsartan 1 tab 10/24/19 15:00 10/25/19 09:30 Entresto 24 Mg-26 Mg Tablet PO 1 tab BID [facility] Administration Spironolactone 25 mg 10/24/19 14:00 10/25/19 09:03 Aldactone - PO 25 mg BID SOREN Administration Tramadol HCl 50 mg 10/25/19 17:41 Ultram - PO Q6H PRN PAIN LEVEL 7 - 10 ASSESSMENT/PLAN: 53F PMH HTN, systolic CHF (EF 30-35%), cocaine use, cocaine induced [place] 09/2018, h/o aspergillosis, asthma, obesity, IDDM, Afib (Xarelto), chronic LE wounds (followed by Dr. Will p/w worsening SOB, LE edema, and subjective weight gain. Admitted for acute on Chronic systolic CHF. #Acute on chronic CHF 2/2 Afib w/ rapid ventricular rate -EKG: Afib w/ rapid ventricular rate; possible AFlutter - SOB improved; c/w furosemide 40 IV BID -Cardio c/s appreciated. NO Plavix for CAD -c/w home rx Sacubitril / Valsartan (Entresto), so will d/c losartan -increased carvedilol (coreg) to 6.25 mg PO -daily I & O's, daily wt -salt restricted diet -f/u echo #Afib RVR -cardio c/s appreciated. increased carvedilol (coreg) to 6.25 mg PO. Uptitrate if needed for rat econtrol -c/w Rivaroxaban (Xarelto) #DM -15 Levemir given NOW, 25 Levemir DAILY in AM -c/w ISS -BGM #Chronic Leg Ulcers -vascular will do debridement tomorrow AM for L posterior calf ulcer -ID consulted (Dr. Eduardo) #CAD -past cocaine induced NSTEMI -cardio c/s appreciated. Plavix d/c -f/u trops #FEN no IV fluids Mg low; Mg repleted. Will monitor BMP diabetic/sodium restricted diet #DISPO maintain med surg Visit type - Emergency Visit Emergency Visit: Yes ED Registration Date: 10/26/19 Care time: The patient presented to the Emergency Department on the above date and was hospitalized for further evaluation of their emergent condition. - New Patient This patient is new to me today: Yes Date on this admission: 10/31/19 - Critical Care Critical Care patient: No ATTENDING PHYSICIAN STATEMENT I saw and evaluated the patient. I reviewed the resident's note and discussed the case with the resident. I agree with the resident's findings and plan as documented. SUBJECTIVE: OBJECTIVE: ASSESSMENT AND PLAN:
[2019-10-25] MEDS: MONTELUKAST NA 10 MG TABLET PO SCH (21:15)
[2019-10-25] MEDS: traMADol HCL 50 MG TABLET PO PRN (23:04)
[2019-10-26] MEDS: FUROSEMIDE 40 MG/4 ML INJECTABLE VIAL IVPUSH SCH ×2 (06:04→14:00)
[2019-10-26] MEDS: DOCUSATE SODIUM 100 MG CAPSULE (FP) PO SCH ×3 (06:10→21:51)
[2019-10-26] MEDS: INSULIN SLIDING SCALE (NOVOLOG) 1 VIAL SQ SCH ×4 (06:13→21:55)
[2019-10-26 07:58] LABS: BASO % 2.4 % (0-2.0); EOS % 3.4 % (0-4.5); HEMATOCRIT 34.8 % (32.4-45.2); HEMOGLOBIN 10.9 GM/dL (10.7-15.3); LYMPH % 31.6 % (8-40); MCH 26.6 pg (25.7-33.7); MCHC 31.5 g/dl (32.0-36.0); MEAN CELL VOLUME 84.5 fl (80-96); MEAN PLT VOLUME 9.3 fl (7.5-11.1); MONO % 11.2 % (3.8-10.2); NEUT % 51.4 % (42.8-82.8); PLATELET COUNT 247 K/MM3 (134-434); RBC 4.11 M/mm3 (3.60-5.2); RDW 17.4 % (11.6-15.6); WHITE BLOOD COUNT 5.2 K/mm3 (4.0-10.0)
[2019-10-26 08:21] LABS: ALBUMIN 3.1 g/dl (3.4-5.0); BILIRUBIN,TOTAL 0.6 mg/dL (0.2-1); CALCIUM 9.1 mg/dL (8.5-10.1); CREATININE 1.1 mg/dL (0.55-1.3); MAGNESIUM 1.5 mg/dL (1.8-2.4); PHOSPHOROUS 3.8 mg/dL (2.5-4.9); POTASSIUM 3.9 mmol/L (3.5-5.1); TOT PROT 6.7 g/dl (6.4-8.2)
[2019-10-26] MEDS ORDERED: INSULIN (LEVEMIR) 100 UNITS/ML UNITS SQ SCH (10:00)
--- NOTE | 2019-10-26 11:13 | PN ---
Progress Note, Physician History of Present Illness: stable no new issues plan for debridement - Current Medication List Current Medications: Active Medications Acetaminophen (Tylenol -) 650 mg PO Q6H PRN PRN Reason: PAIN LEVEL 6-10 Last Admin: 10/25/19 17:31 Dose: 650 mg Documented by: Budesonide/Formoterol Fumarate (Symbicort 160/4.5mcg -) 2 puff IH BID [facility] Last Admin: 10/25/19 21:17 Dose: 2 puff Documented by: Carvedilol (Coreg -) 6.25 mg PO BID [facility] Last Admin: 10/25/19 21:14 Dose: 6.25 mg Documented by: Collagenase (Santyl -) 1 applic TP DAILY [facility]; Protocol Last Admin: 10/25/19 10:08 Dose: 1 applic Documented by: Digoxin (Lanoxin -) 0.125 mg PO DAILY [facility] Last Admin: 10/25/19 09:03 Dose: 0.125 mg Documented by: Docusate Sodium (Colace -) 100 mg PO TID [facility] Last Admin: 10/26/19 06:10 Dose: Not Given Documented by: Furosemide (Lasix Injection -) 40 mg IVPUSH BID@0600,1400 [facility] Last Admin: 10/26/19 06:04 Dose: 40 mg Documented by: Ertapenem 1 gm/ Sodium (Chloride) 50 mls @ 100 mls/hr IVPB DAILY [facility] Last Admin: 10/25/19 14:56 Dose: 100 mls/hr Documented by: Insulin Aspart (Novolog Vial Sliding Scale -) 1 vial SQ ACHS [facility]; Protocol Last Admin: 10/26/19 06:13 Dose: Not Given Documented by: Insulin Detemir (Levemir Vial) 25 units SQ DAILY [facility] Loratadine (Claritin -) 10 mg PO DAILY PRN PRN Reason: ALLERGIES Magnesium Oxide (Mag-Ox -) 400 mg PO DAILY [facility] Last Admin: 10/25/19 09:03 Dose: 400 mg Documented by: Montelukast Sodium (Singulair -) 10 mg PO HS [facility] Last Admin: 10/25/19 21:15 Dose: 10 mg Documented by: Pantoprazole Sodium (Protonix -) 40 mg PO DAILY [facility] Last Admin: 10/25/19 09:03 Dose: 40 mg Documented by: Rivaroxaban (Xarelto) 20 mg PO DAILY@1800 [facility] Last Admin: 10/25/19 17:47 Dose: 20 mg Documented by: Sacubitril/Valsartan (Entresto 24 Mg-26 Mg Tablet) 1 tab PO BID [facility] Last Admin: 10/25/19 21:14 Dose: 1 tab Documented by: Spironolactone (Aldactone -) 25 mg PO BID [facility] Last Admin: 10/25/19 21:59 Dose: 25 mg Documented by: Tramadol HCl (Ultram -) 50 mg PO Q6H PRN PRN Reason: PAIN LEVEL 7 - 10 Last Admin: 10/25/19 23:04 Dose: 50 mg Documented by: - Objective Vital Signs: Vital Signs Temperature 97.2 F L 10/26/19 09:05 Pulse Rate 84 10/26/19 09:05 Respiratory Rate 18 10/26/19 09:05 Blood Pressure 138/78 10/26/19 09:05 O2 Sat by Pulse Oximetry (%) 99 10/26/19 01:00 Constitutional: Yes: No Distress, Calm Cardiovascular: Yes: Pulse Irregular, S1, S2 Respiratory: Yes: Regular, CTA Bilaterally Gastrointestinal: Yes: Normal Bowel Sounds, Soft Musculoskeletal: Yes: WNL Extremities: Yes: Other Edema: LLE: 1+, RLE: 1+ Wound/Incision: Yes: Dressing Dry and Intact Neurological: Yes: Alert, Oriented Labs: CBC, BMP 10/26/19 07:11 10/26/19 07:11 INR, PTT INR 3.03 (0.83-1.09) H 10/24/19 07:42 Assessment/Plan pul congestion dm lower ext swelling afib non healing wound of the leg plan abx plan for debridement
[2019-10-26] MEDS: ERTAPENEM SODIUM 1 GM in SODIUM CHLORIDE 50 ML IVPB SCH (11:17)
[2019-10-26] MEDS: SACUBITRIL/VALSARTAN 24 MG-26 MG TABLET PO SCH ×2 (11:18→21:47)
[2019-10-26] MEDS: CARVEDILOL 3.125 MG TABLET (FP) PO SCH ×2 (11:18→21:47)
[2019-10-26] MEDS: COLLAGENASE CLOSTRIDIUM HIST. 30 GRAMS TUBE TP SCH (11:18)
[2019-10-26] MEDS: MAGNESIUM OXIDE 400 MG TABLET (FP) PO SCH (11:18)
[2019-10-26] MEDS: BUDESONIDE/FORMETEROL FUMARATE 160/4.5 mcg INHALER IH SCH ×2 (11:18→21:48)
[2019-10-26] MEDS: SPIRONOLACTONE 25 MG TABLET PO SCH ×2 (11:18→21:46)
[2019-10-26] MEDS: PANTOPRAZOLE 40 MG TABLET PO SCH (11:18)
--- NOTE | 2019-10-26 14:40 | PN ---
Progress Note, Physician - Current Medication List Current Medications: Active Medications Acetaminophen (Tylenol -) 650 mg PO Q6H PRN PRN Reason: PAIN LEVEL 6-10 Last Admin: 10/25/19 17:31 Dose: 650 mg Documented by: Budesonide/Formoterol Fumarate (Symbicort 160/4.5mcg -) 2 puff IH BID [facility] Last Admin: 10/26/19 11:18 Dose: 2 puff Documented by: Carvedilol (Coreg -) 6.25 mg PO BID [facility] Last Admin: 10/26/19 11:18 Dose: Not Given Documented by: Collagenase (Santyl -) 1 applic TP DAILY [facility]; Protocol Last Admin: 10/26/19 11:18 Dose: 1 applic Documented by: Digoxin (Lanoxin -) 0.125 mg PO DAILY [facility] Last Admin: 10/25/19 09:03 Dose: 0.125 mg Documented by: Docusate Sodium (Colace -) 100 mg PO TID [facility] Last Admin: 10/26/19 13:12 Dose: Not Given Documented by: Furosemide (Lasix Injection -) 40 mg IVPUSH BID@0600,1400 [facility] Last Admin: 10/26/19 14:00 Dose: 40 mg Documented by: Ertapenem 1 gm/ Sodium (Chloride) 50 mls @ 100 mls/hr IVPB DAILY [facility] Last Admin: 10/26/19 11:17 Dose: 100 mls/hr Documented by: Insulin Aspart (Novolog Vial Sliding Scale -) 1 vial SQ ACHS [facility]; Protocol Last Admin: 10/26/19 11:38 Dose: Not Given Documented by: Insulin Detemir (Levemir Vial) 25 units SQ DAILY [facility] Last Admin: 10/26/19 11:18 Dose: Not Given Documented by: Loratadine (Claritin -) 10 mg PO DAILY PRN PRN Reason: ALLERGIES Magnesium Oxide (Mag-Ox -) 400 mg PO DAILY [facility] Last Admin: 10/26/19 11:18 Dose: Not Given Documented by: Montelukast Sodium (Singulair -) 10 mg PO HS [facility] Last Admin: 10/25/19 21:15 Dose: 10 mg Documented by: Pantoprazole Sodium (Protonix -) 40 mg PO DAILY [facility] Last Admin: 10/26/19 11:18 Dose: Not Given Documented by: Rivaroxaban (Xarelto) 20 mg PO DAILY@1800 [facility] Last Admin: 10/25/19 17:47 Dose: 20 mg Documented by: Sacubitril/Valsartan (Entresto 24 Mg-26 Mg Tablet) 1 tab PO BID [facility] Last Admin: 10/26/19 11:18 Dose: Not Given Documented by: Spironolactone (Aldactone -) 25 mg PO BID [facility] Last Admin: 10/26/19 11:18 Dose: Not Given Documented by: Tramadol HCl (Ultram -) 50 mg PO Q6H PRN PRN Reason: PAIN LEVEL 7 - 10 Last Admin: 10/25/19 23:04 Dose: 50 mg Documented by: - Objective Vital Signs: Vital Signs Temperature 97.0 F L 10/26/19 14:00 Pulse Rate 93 H 10/26/19 14:00 Respiratory Rate 20 10/26/19 14:00 Blood Pressure 125/72 10/26/19 14:00 O2 Sat by Pulse Oximetry (%) 99 10/26/19 09:00 Labs: CBC, BMP 10/26/19 07:11 10/26/19 07:11 INR, PTT INR 3.03 (0.83-1.09) H 10/24/19 07:42 Assessment/Plan EKG: afib, 104, nonspecific ST-T changes, stable compared to prior cxr: no chf echo 10/2018 dilated LV, severe global hypokinesis, EF 15-20%, RV mildly reduced function, LA mod dilated, mild MAC, mild MR, mild TR, RVSP >40-50 mmHg echo 09/2019: lve, lvef 30-35, mild dec rv fcn, mild mr a/p: 53F h/o HTN, HLD, afib, chronic systolic HF, DM p/w le edema, sob. acute on chronic systolic chf, NICM: -here with vol overload, cont iv lasix 40 bid. daily wts and chem7. -Likely NICM due to chronic HTN, cocaine use -cont Entresto, Coreg, aldactone -Cont Dig (level ok) -pt had not followed up for ICD as planned in past and her cocaine use is a rel ative contraindication. -recent echo 09/2019 with stable chronic findings, lvef slightly improved AFib: -rate ok, cont coreg, dig (level ok). can uptitrate coreg if needed for rate control. -cont xarelto CAD, NSTEMI: -pt presented with NSTEMI in 2019 but subsequent cath showed single vessel disease, medically managed with cardiomyopathy out of proportion to degree of CAD -no signs ACS here -cont bb, ac. statin stopped previously due to elevated lfts. LE wound: as per ID/Vascular
[2019-10-26] MEDS: ACETAMINOPHEN 325 MG TABLET (FP) PO PRN ×2 (16:30→22:56)
[2019-10-26] MEDS: RIVAROXABAN 20 MG TABLET PO SCH (17:32)
[2019-10-26] MEDS: traMADol HCL 50 MG TABLET PO PRN (18:45)
--- NOTE | 2019-10-26 18:59 | PN ---
Teaching Attending Note Name of Resident: Anatoliy Aldana ATTENDING PHYSICIAN STATEMENT I saw and evaluated the patient. I reviewed the resident's note and discussed the case with the resident. I agree with the resident's findings and plan as documented. SUBJECTIVE: No fever or chills. breathing feels better . OBJECTIVE: NAD, awake. CV: RRR, no MRG. No JVD Lungs: CTAB Abd: soft, obese, ND, NT. Ext: 2 + edema on legs . L leg medial ulcer, 2.5 cm in diameter , white- yellowish layer /slough on wound. tender to touch . no erythema around wound. Not changed from yesterday ASSESSMENT AND PLAN: 53 y/o lady with h/o chronic systolic heart failure, IDDM, asthma, obesity, hypertension, Afib, aspergillosis, , cocaine usage,, NSTEMI, , chronic lower extremity wounds (followed by Dr. Will), nicotine abuse, who presented with LE edema and SOB. 1- Acute on chronic systolic CHF. improved - cont lasix 40 IV BID - cont Entresto - cont coreg - recent echo in 10/05 was reviewed. will dc echo order - weight and Low salt diet 2- A fib with RVR: - cont coreg. rate is better controlled . will assess in am. - cont dig. - cont xarelto. 3- DM: increase long acting insulin and cont SSI. 4- L leg wound infection. d/w Dr. Eduardo - cont ertapenem - debridement today. 5- H/o CAD: off plavix. cont BB .
[2019-10-26] MEDS: MONTELUKAST NA 10 MG TABLET PO SCH (21:47)
--- NOTE | 2019-10-26 22:11 | PN ---
Physical Exam: SUBJECTIVE: Patient seen and examined OBJECTIVE: No overnight events. Patient seen and examined. Pt continues to have pain at LE ulcers. Endorses SOB. Denies CP, abd pain. ROS negative except as above Vital Signs Period Temp Pulse Resp BP Sys/Khanna Pulse Ox Last 24 Hr 97.0 F-97.7 F 83-93 18-20 125-146/72-91 99-99 GENERAL: The patient is awake, alert, and fully oriented. Pt was in pain. HEENT: Normal with no signs of trauma. sclera anicteric. No ptosis. MMM NECK: No JVD LUNGS: distant Breath sounds, but CTAB. no wheezes, no crackles, no accessory muscle use. HEART: Regular rate and rhythm, S1, S2. no mgr ABDOMEN: obese, Soft, nontender, nondistended, normoactive bowel sounds, no guarding, EXTREMITIES: edema 2+ b/l LE. 2 cm ulcer on posterior calf. White appearing; NO erythema/fluctant. TTP. sensation intact b/l LE NEUROLOGICAL: Normal speech, gait not observed. PSYCH: Normal mood, normal affect. Laboratory Results - last 24 hr 10/26/19 10/26/19 10/26/19 06:08 07:11 07:11 WBC 5.2 RBC 4.11 Hgb 10.9 Hct 34.8 MCV 84.5 MCH 26.6 MCHC 31.5 L RDW 17.4 H Plt Count 247 MPV 9.3 Absolute Neuts (auto) 2.7 Neutrophils % 51.4 D Lymphocytes % 31.6 D Monocytes % 11.2 H Eosinophils % 3.4 D Basophils % 2.4 H Nucleated RBC % 0 Sodium 137 Potassium 3.9 Chloride 101 Carbon Dioxide 27 Anion Gap 10 BUN 17.0 Creatinine 1.1 Est GFR (CKD-EPI)AfAm 66.38 Est GFR (CKD-EPI)NonAf 57.27 POC Glucometer 211 Random Glucose 220 H Calcium 9.1 Phosphorus 3.8 Magnesium 1.5 L Total Bilirubin 0.6 AST 17 ALT 28 Alkaline Phosphatase 126 H Creatine Kinase 102 Troponin I 0.03 Total Protein 6.7 Albumin 3.1 L 10/26/19 10/26/19 10/26/19 11:22 16:32 21:53 WBC RBC Hgb Hct MCV MCH MCHC RDW Plt Count MPV Absolute Neuts (auto) Neutrophils % Lymphocytes % Monocytes % Eosinophils % Basophils % Nucleated RBC % Sodium Potassium Chloride Carbon Dioxide Anion Gap BUN Creatinine Est GFR (CKD-EPI)AfAm Est GFR (CKD-EPI)NonAf POC Glucometer 221 301 241 Random Glucose Calcium Phosphorus Magnesium Total Bilirubin AST ALT Alkaline Phosphatase Creatine Kinase Troponin I Total Protein Albumin Active Medications Generic Name Dose Route Start Last Admin Trade Name Freq PRN Reason Stop Dose Admin Acetaminophen 650 mg 10/25/19 10:34 10/26/19 16:30 Tylenol - PO 650 mg Q6H PRN Administration PAIN LEVEL 6-10 Budesonide/Formoterol Fumarate 2 puff 10/24/19 22:00 10/26/19 21:48 Symbicort 160/4.5mcg - IH 2 puff BID [facility] Administration Carvedilol 6.25 mg 10/25/19 22:00 10/26/19 21:47 Coreg - PO 6.25 mg BID [facility] Administration Collagenase 1 applic 10/24/19 14:00 10/26/19 11:18 Santyl - TP 1 applic DAILY [facility] Administration Protocol Digoxin 0.125 mg 10/24/19 14:00 10/25/19 09:03 Lanoxin - PO 0.125 mg DAILY [facility] Administration Docusate Sodium 100 mg 10/24/19 14:00 10/26/19 21:51 Colace - PO Not Given TID [facility] Furosemide 40 mg 10/25/19 06:00 10/26/19 14:00 Lasix Injection - IVPUSH 40 mg BID@0600,1400 [facility] Administration Ertapenem 1 gm/ Sodium 50 mls @ 100 mls/hr 10/25/19 13:45 10/26/19 11:17 Chloride IVPB 100 mls/hr DAILY [facility] Administration Insulin Aspart 1 vial 10/24/19 16:30 10/26/19 21:55 Novolog Vial Sliding Scale - SQ 4 units ACHS [facility] Administration Protocol Insulin Detemir 30 units 10/26/19 19:04 Levemir Vial SQ DAILY [facility] Loratadine 10 mg 10/24/19 13:57 Claritin - PO DAILY PRN ALLERGIES Magnesium Oxide 400 mg 10/24/19 14:00 10/26/19 11:18 Mag-Ox - PO Not Given DAILY [facility] Montelukast Sodium 10 mg 10/24/19 22:00 10/26/19 21:47 Singulair - PO 10 mg HS [facility] Administration Pantoprazole Sodium 40 mg 10/24/19 14:00 10/26/19 11:18 Protonix - PO Not Given DAILY [facility] Rivaroxaban 20 mg 10/24/19 18:00 10/26/19 17:32 Xarelto PO 20 mg DAILY@1800 [facility] Administration Sacubitril/Valsartan 1 tab 10/24/19 15:00 10/26/19 21:47 Entresto 24 Mg-26 Mg Tablet PO 1 tab BID [facility] Administration Spironolactone 25 mg 10/24/19 14:00 10/26/19 21:46 Aldactone - PO 25 mg BID [facility] Administration Tramadol HCl 50 mg 10/25/19 17:41 10/26/19 18:45 Ultram - PO 50 mg Q6H PRN Administration PAIN LEVEL 7 - 10 ASSESSMENT/PLAN: 53F PMH HTN, systolic CHF (EF 30-35%), cocaine use, 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 Will p/w worsening SOB, LE edema, and subjective weight gain. Admitted for acute on Chronic systolic CHF. #Acute on chronic CHF 2/2 Afib w/ rapid ventricular rate -EKG: Afib w/ rapid ventricular rate; possible AFlutter - SOB improved; c/w furosemide 40 IV BID -Cardio c/s appreciated. NO Plavix for CAD -c/w home rx Sacubitril / Valsartan (Entresto) -c/w carvedilol (coreg) to 6.25 mg PO -daily I & O's, daily wt -salt restricted diet #Afib RVR -c/w carvedilol (coreg) to 6.25 mg PO -c/w Rivaroxaban (Xarelto) #DM -Levemir increased to 30 DAILY in AM -c/w ISS -BGM #Chronic Leg Ulcers -debridement was done today for L posterior calf ulcer -c/w entrapenem #CAD -past cocaine induced NSTEMI -cardio c/s appreciated. Plavix d/c -f/u trops #FEN no IV fluids Will monitor BMP diabetic/sodium restricted diet #DISPO maintain med surg Visit type - Emergency Visit Emergency Visit: Yes ED Registration Date: 10/26/19 Care time: The patient presented to the Emergency Department on the above date and was hospitalized for further evaluation of their emergent condition. - New Patient This patient is new to me today: No - Critical Care Critical Care patient: No ATTENDING PHYSICIAN STATEMENT I saw and evaluated the patient. I reviewed the resident's note and discussed the case with the resident. I agree with the resident's findings and plan as documented. SUBJECTIVE: OBJECTIVE: ASSESSMENT AND PLAN:
[2019-10-27] MEDS: DOCUSATE SODIUM 100 MG CAPSULE (FP) PO SCH ×3 (06:24→21:18)
[2019-10-27] MEDS: FUROSEMIDE 40 MG/4 ML INJECTABLE VIAL IVPUSH SCH ×2 (06:24→14:56)
[2019-10-27] MEDS: traMADol HCL 50 MG TABLET PO PRN ×3 (06:35→23:19)
[2019-10-27] MEDS: INSULIN SLIDING SCALE (NOVOLOG) 1 VIAL SQ SCH ×4 (06:40→21:12)
[2019-10-27] MEDS: SACUBITRIL/VALSARTAN 24 MG-26 MG TABLET PO SCH ×2 (09:58→21:18)
[2019-10-27] MEDS: PANTOPRAZOLE 40 MG TABLET PO SCH (09:58)
[2019-10-27] MEDS: SPIRONOLACTONE 25 MG TABLET PO SCH ×2 (09:59→21:18)
[2019-10-27] MEDS: DIGOXIN 0.125 MG TABLET (FP) PO SCH (09:59)
[2019-10-27] MEDS: BUDESONIDE/FORMETEROL FUMARATE 160/4.5 mcg INHALER IH SCH ×2 (09:59→21:21)
[2019-10-27] MEDS: MAGNESIUM OXIDE 400 MG TABLET (FP) PO SCH (09:59)
[2019-10-27] MEDS: INSULIN (LEVEMIR) 100 UNITS/ML UNITS SQ SCH (10:01)
[2019-10-27] MEDS: COLLAGENASE CLOSTRIDIUM HIST. 30 GRAMS TUBE TP SCH (10:01)
[2019-10-27] MEDS: CARVEDILOL 3.125 MG TABLET (FP) PO SCH ×2 (10:02→21:19)
[2019-10-27] MEDS: ERTAPENEM SODIUM 1 GM in SODIUM CHLORIDE 50 ML IVPB SCH (11:19)
--- NOTE | 2019-10-27 11:25 | PN ---
Progress Note (short form) - Note Progress Note: s: no cp palps dizzy; edema and sob improving Current Medications Generic Name Dose Route Start Last Admin Trade Name Freq PRN Reason Stop Dose Admin Acetaminophen 650 mg 10/25/19 10:34 10/26/19 22:56 Tylenol - PO 650 mg Q6H PRN Administration PAIN LEVEL 6-10 Budesonide/Formoterol Fumarate 2 puff 10/24/19 22:00 10/27/19 09:59 Symbicort 160/4.5mcg - IH 2 puff BID [facility] Administration Carvedilol 6.25 mg 10/25/19 22:00 10/27/19 10:02 Coreg - PO Not Given BID [facility] Collagenase 1 applic 10/24/19 14:00 10/27/19 10:01 Santyl - TP Not Given DAILY [facility] Protocol Digoxin 0.125 mg 10/24/19 14:00 10/27/19 09:59 Lanoxin - PO 0.125 mg DAILY [facility] Administration Docusate Sodium 100 mg 10/24/19 14:00 10/27/19 06:24 Colace - PO Not Given TID [facility] Furosemide 40 mg 10/25/19 06:00 10/27/19 06:24 Lasix Injection - IVPUSH 40 mg BID@0600,1400 [facility] Administration Ertapenem 1 gm/ Sodium 50 mls @ 100 mls/hr 10/25/19 13:45 10/27/19 11:19 Chloride IVPB 100 mls/hr DAILY [facility] Administration Insulin Aspart 1 vial 10/24/19 16:30 10/27/19 06:40 Novolog Vial Sliding Scale - SQ 4 units ACHS [facility] Administration Protocol Insulin Detemir 30 units 10/26/19 19:04 10/27/19 10:01 Levemir Vial SQ 30 units DAILY [facility] Administration Loratadine 10 mg 10/24/19 13:57 Claritin - PO DAILY PRN ALLERGIES Magnesium Oxide 400 mg 10/24/19 14:00 10/27/19 09:59 Mag-Ox - PO 400 mg DAILY [facility] Administration Montelukast Sodium 10 mg 10/24/19 22:00 10/26/19 21:47 Singulair - PO 10 mg HS [facility] Administration Pantoprazole Sodium 40 mg 10/24/19 14:00 10/27/19 09:58 Protonix - PO 40 mg DAILY [facility] Administration Rivaroxaban 20 mg 10/24/19 18:00 10/26/19 17:32 Xarelto PO 20 mg DAILY@1800 [facility] Administration Sacubitril/Valsartan 1 tab 10/24/19 15:00 10/27/19 09:58 Entresto 24 Mg-26 Mg Tablet PO 1 tab BID [facility] Administration Spironolactone 25 mg 10/24/19 14:00 10/27/19 09:59 Aldactone - PO 25 mg BID [facility] Administration Tramadol HCl 50 mg 10/25/19 17:41 10/27/19 06:35 Ultram - PO 50 mg Q6H PRN Administration PAIN LEVEL 7 - 10 Vital Signs Period Temp Pulse Resp BP Sys/Khanna Pulse Ox Last 24 Hr 97.0 F-98.4 F 83-96 102-144/60-91 99 nad no jvd rrr s1s2 no mrg cta bl nl eff trace le edema bl abd nt nd posbs no jaundice diaphoresis aa03 CBC, BMP 10/26/19 07:11 10/26/19 07:11 EKG: afib, 104, nonspecific ST-T changes, stable compared to prior cxr: no chf echo 10/2018 dilated LV, severe global hypokinesis, EF 15-20%, RV mildly reduced function, LA mod dilated, mild MAC, mild MR, mild TR, RVSP >40-50 mmHg echo 09/2019: lve, lvef 30-35, mild dec rv fcn, mild mr a/p: 53F h/o HTN, HLD, afib, chronic systolic HF, DM p/w le edema, sob. acute on chronic systolic chf, NICM: -here with vol overload, cont iv lasix 40 bid (was on 60 po bid at home). daily wts and chem7. -Likely NICM due to chronic HTN, cocaine use -cont Entresto, Coreg, aldactone -Cont Dig (level ok) -pt had not followed up for ICD as planned in past and her cocaine use is a relative contraindication. -recent echo 09/2019 with stable chronic findings, lvef slightly improved AFib: -rate ok, cont coreg, dig (level ok). can uptitrate coreg if needed for rate control. -cont xarelto CAD, NSTEMI: -pt presented with NSTEMI in 2019 but subsequent cath showed single vessel disease, medically managed with cardiomyopathy out of proportion to degree of CAD -no signs ACS here -cont bb, ac. statin stopped previously due to elevated lfts. LE wound: as per ID/Vascular
--- NOTE | 2019-10-27 15:31 | PN ---
Progress Note, Physician History of Present Illness: stable no new issues - Current Medication List Current Medications: Active Medications Acetaminophen (Tylenol -) 650 mg PO Q6H PRN PRN Reason: PAIN LEVEL 6-10 Last Admin: 10/26/19 22:56 Dose: 650 mg Documented by: Budesonide/Formoterol Fumarate (Symbicort 160/4.5mcg -) 2 puff IH BID [facility] Last Admin: 10/27/19 09:59 Dose: 2 puff Documented by: Carvedilol (Coreg -) 6.25 mg PO BID [facility] Last Admin: 10/27/19 10:02 Dose: Not Given Documented by: Collagenase (Santyl -) 1 applic TP DAILY [facility]; Protocol Last Admin: 10/27/19 10:01 Dose: Not Given Documented by: Digoxin (Lanoxin -) 0.125 mg PO DAILY [facility] Last Admin: 10/27/19 09:59 Dose: 0.125 mg Documented by: Docusate Sodium (Colace -) 100 mg PO TID [facility] Last Admin: 10/27/19 15:09 Dose: Not Given Documented by: Furosemide (Lasix Injection -) 40 mg IVPUSH BID@0600,1400 [facility] Last Admin: 10/27/19 14:56 Dose: 40 mg Documented by: Ertapenem 1 gm/ Sodium (Chloride) 50 mls @ 100 mls/hr IVPB DAILY [facility] Last Admin: 10/27/19 11:19 Dose: 100 mls/hr Documented by: Insulin Aspart (Novolog Vial Sliding Scale -) 1 vial SQ ACHS [facility]; Protocol Last Admin: 10/27/19 11:51 Dose: 4 units Documented by: Insulin Detemir (Levemir Vial) 30 units SQ DAILY [facility] Last Admin: 10/27/19 10:01 Dose: 30 units Documented by: Loratadine (Claritin -) 10 mg PO DAILY PRN PRN Reason: ALLERGIES Magnesium Oxide (Mag-Ox -) 400 mg PO DAILY [facility] Last Admin: 10/27/19 09:59 Dose: 400 mg Documented by: Montelukast Sodium (Singulair -) 10 mg PO HS [facility] Last Admin: 10/26/19 21:47 Dose: 10 mg Documented by: Pantoprazole Sodium (Protonix -) 40 mg PO DAILY [facility] Last Admin: 10/27/19 09:58 Dose: 40 mg Documented by: Rivaroxaban (Xarelto) 20 mg PO DAILY@1800 [facility] Last Admin: 10/26/19 17:32 Dose: 20 mg Documented by: Sacubitril/Valsartan (Entresto 24 Mg-26 Mg Tablet) 1 tab PO BID [facility] Last Admin: 10/27/19 09:58 Dose: 1 tab Documented by: Spironolactone (Aldactone -) 25 mg PO BID [facility] Last Admin: 10/27/19 09:59 Dose: 25 mg Documented by: Tramadol HCl (Ultram -) 50 mg PO Q6H PRN PRN Reason: PAIN LEVEL 7 - 10 Last Admin: 10/27/19 06:35 Dose: 50 mg Documented by: - Objective Vital Signs: Vital Signs Temperature 97.6 F 10/27/19 14:00 Pulse Rate 85 10/27/19 14:00 Respiratory Rate 20 10/27/19 14:00 Blood Pressure 106/71 10/27/19 14:00 O2 Sat by Pulse Oximetry (%) 99 10/27/19 01:00 Constitutional: Yes: No Distress, Calm Cardiovascular: Yes: Regular Rate and Rhythm Respiratory: Yes: Regular, CTA Bilaterally Gastrointestinal: Yes: Normal Bowel Sounds, Soft Musculoskeletal: Yes: WNL Extremities: Yes: Other Wound/Incision: Yes: Dressing Dry and Intact Neurological: Yes: Alert, Oriented Psychiatric: Yes: Alert, Oriented Labs: CBC, BMP 10/26/19 07:11 10/26/19 07:11 INR, PTT INR 3.03 (0.83-1.09) H 10/24/19 07:42 Assessment/Plan pul congestion dm lower ext swelling afib non healing wound of the leg plan continue current mgmt wound care
--- NOTE | 2019-10-27 16:34 | PN ---
Teaching Attending Note Name of Resident: Ibeth Whittington ATTENDING PHYSICIAN STATEMENT I saw and evaluated the patient. I reviewed the resident's note and discussed the case with the resident. I agree with the resident's findings and plan as documented. SUBJECTIVE: seen at 8:30 am No fever or chills. No pain, she feels better . No OSB. leg is still painful OBJECTIVE: NAD, awake. CV: RRR, no MRG. No JVD Lungs: CTAB Abd: soft, obese, ND, NT. Ext: 1+ edema on legs. L leg ulcer in a clean dressing ( first post surgical dressig ) ASSESSMENT AND PLAN: 53 y/o lady with h/o chronic systolic heart failure, IDDM, asthma, obesity, hypertension, Afib, aspergillosis, , cocaine usage,, NSTEMI, , chronic lower extremity wounds (followed by Dr. Will), nicotine abuse, who presented with LE edema and SOB. 1- Acute on chronic systolic CHF. improved - cont lasix 40 IV BID - cont Entresto - cont coreg - weight and Low salt diet 2- A fib with RVR: - cont coreg. Rate is controlled - cont dig. - cont xarelto. 3- DM: long acting insulin and cont SSI. 4- L leg wound infection. s/p debridement 10/25 - cont ertapenem - dressing to be changed by surgeon today - follow wound cx 5- H/o CAD: off plavix. cont BB . not on statin as out pt due to LFTS abn
--- NOTE | 2019-10-27 16:41 | PN ---
Physical Exam: SUBJECTIVE: Patient seen and examined at bedside. pt states she is feeling much better. OBJECTIVE: Vital Signs Period Temp Pulse Resp BP Sys/Khanna Pulse Ox Last 24 Hr 97.6 F-98.4 F 83-96 20-20 102-144/60-91 99-99 GENERAL: The patient is awake, alert, and fully oriented, in no acute distress. HEAD: Normal with no signs of trauma. LUNGS: Breath sounds equal, clear to auscultation bilaterally, no accessory muscle use. HEART: Regular rate and rhythm, S1, S2 without murmur ABDOMEN: Soft, nontender, nondistended, normoactive bowel sounds, no guarding EXTREMITIES: LLE dressing. . Laboratory Results - last 24 hr 10/26/19 10/27/19 10/27/19 21:53 06:28 11:50 POC Glucometer 241 229 223 Active Medications Generic Name Dose Route Start Last Admin Trade Name Freq PRN Reason Stop Dose Admin Acetaminophen 650 mg 10/25/19 10:34 10/26/19 22:56 Tylenol - PO 650 mg Q6H PRN Administration PAIN LEVEL 6-10 Budesonide/Formoterol Fumarate 2 puff 10/24/19 22:00 10/27/19 09:59 Symbicort 160/4.5mcg - IH 2 puff BID [facility] Administration Carvedilol 6.25 mg 10/25/19 22:00 10/27/19 10:02 Coreg - PO Not Given BID [facility] Collagenase 1 applic 10/24/19 14:00 10/27/19 10:01 Santyl - TP Not Given DAILY [facility] Protocol Digoxin 0.125 mg 10/24/19 14:00 10/27/19 09:59 Lanoxin - PO 0.125 mg DAILY [facility] Administration Docusate Sodium 100 mg 10/24/19 14:00 10/27/19 15:09 Colace - PO Not Given TID [facility] Furosemide 40 mg 10/25/19 06:00 10/27/19 14:56 Lasix Injection - IVPUSH 40 mg BID@0600,1400 [facility] Administration Ertapenem 1 gm/ Sodium 50 mls @ 100 mls/hr 10/25/19 13:45 10/27/19 11:19 Chloride IVPB 100 mls/hr DAILY [facility] Administration Insulin Aspart 1 vial 10/24/19 16:30 10/27/19 11:51 Novolog Vial Sliding Scale - SQ 4 units ACHS [facility] Administration Protocol Insulin Detemir 30 units 10/26/19 19:04 10/27/19 10:01 Levemir Vial SQ 30 units DAILY [facility] Administration Loratadine 10 mg 10/24/19 13:57 Claritin - PO DAILY PRN ALLERGIES Magnesium Oxide 400 mg 10/24/19 14:00 10/27/19 09:59 Mag-Ox - PO 400 mg DAILY [facility] Administration Montelukast Sodium 10 mg 10/24/19 22:00 10/26/19 21:47 Singulair - PO 10 mg HS [facility] Administration Pantoprazole Sodium 40 mg 10/24/19 14:00 10/27/19 09:58 Protonix - PO 40 mg DAILY [facility] Administration Rivaroxaban 20 mg 10/24/19 18:00 10/26/19 17:32 Xarelto PO 20 mg DAILY@1800 [facility] Administration Sacubitril/Valsartan 1 tab 10/24/19 15:00 10/27/19 09:58 Entresto 24 Mg-26 Mg Tablet PO 1 tab BID [facility] Administration Spironolactone 25 mg 10/24/19 14:00 10/27/19 09:59 Aldactone - PO 25 mg BID [facility] Administration Tramadol HCl 50 mg 10/25/19 17:41 10/27/19 06:35 Ultram - PO 50 mg Q6H PRN Administration PAIN LEVEL 7 - 10 ASSESSMENT/PLAN: 53yo F PMH HTN, HFrEF, cocaine use, 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 admitted for wound debridement and HF exac Acute on chronic HFrEF 2/2 Afib w/ rapid ventricular rate -c/w furosemide 40 IV BID -Cardio recs appreciated. NO Plavix for CAD -c/w Entresto, coreg -daily I & O's, daily wt Afib RVR -c/w coreg and xarelto - c/w dig DM - c/w levemir 30 daily -c/w ISS, BGM Chronic Leg Ulcers -s/p debridement was done today for L posterior calf ulcer -c/w entrapenem day 2. pending Cx CAD - c/w Entresto, aldactone, coreg . off plavix HLOC Visit type - Emergency Visit Emergency Visit: No - New Patient This patient is new to me today: No - Critical Care Critical Care patient: No - Discharge Referral Referred to [facility] No ATTENDING PHYSICIAN STATEMENT I saw and evaluated the patient. I reviewed the resident's note and discussed the case with the resident. I agree with the resident's findings and plan as documented. SUBJECTIVE: OBJECTIVE: ASSESSMENT AND PLAN:
[2019-10-27] MEDS: RIVAROXABAN 20 MG TABLET PO SCH (17:35)
[2019-10-27] MEDS: MONTELUKAST NA 10 MG TABLET PO SCH (21:19)
[2019-10-28] MEDS: FUROSEMIDE 40 MG/4 ML INJECTABLE VIAL IVPUSH SCH ×2 (06:00→14:14)
[2019-10-28] MEDS: DOCUSATE SODIUM 100 MG CAPSULE (FP) PO SCH ×3 (06:00→21:02)
[2019-10-28] MEDS: traMADol HCL 50 MG TABLET PO PRN ×2 (06:03→21:00)
[2019-10-28] MEDS: INSULIN SLIDING SCALE (NOVOLOG) 1 VIAL SQ SCH ×4 (06:17→21:02)
[2019-10-28 07:54] LABS: BASO % 2.3 % (0-2.0); EOS % 3.2 % (0-4.5); HEMATOCRIT 37.7 % (32.4-45.2); HEMOGLOBIN 11.8 GM/dL (10.7-15.3); LYMPH % 32.8 % (8-40); MCH 26.1 pg (25.7-33.7); MCHC 31.1 g/dl (32.0-36.0); MONO % 12.2 % (3.8-10.2); NEUT % 49.5 % (42.8-82.8); PLATELET COUNT 295 K/MM3 (134-434); RDW 17.5 % (11.6-15.6)
[2019-10-28 08:13] LABS: ALBUMIN 3.5 g/dl (3.4-5.0); BILIRUBIN,TOTAL 0.6 mg/dL (0.2-1); BLOOD UREA NITROGEN 20.7 mg/dL (7-18); MAGNESIUM 1.5 mg/dL (1.8-2.4); PHOSPHOROUS 4.5 mg/dL (2.5-4.9); POTASSIUM 4.2 mmol/L (3.5-5.1); TOT PROT 7.5 g/dl (6.4-8.2)
[2019-10-28] MEDS: ERTAPENEM SODIUM 1 GM in SODIUM CHLORIDE 50 ML IVPB SCH (09:47)
[2019-10-28] MEDS: PANTOPRAZOLE 40 MG TABLET PO SCH (09:51)
[2019-10-28] MEDS: BUDESONIDE/FORMETEROL FUMARATE 160/4.5 mcg INHALER IH SCH ×2 (09:52→21:02)
[2019-10-28] MEDS: COLLAGENASE CLOSTRIDIUM HIST. 30 GRAMS TUBE TP SCH (09:52)
[2019-10-28] MEDS: INSULIN (LEVEMIR) 100 UNITS/ML UNITS SQ SCH (09:56)
[2019-10-28] MEDS: SACUBITRIL/VALSARTAN 24 MG-26 MG TABLET PO SCH ×2 (10:47→21:01)
[2019-10-28] MEDS: SPIRONOLACTONE 25 MG TABLET PO SCH ×2 (10:47→21:01)
[2019-10-28] MEDS: DIGOXIN 0.125 MG TABLET (FP) PO SCH (10:47)
[2019-10-28] MEDS: CARVEDILOL 3.125 MG TABLET (FP) PO SCH ×2 (10:47→21:01)
[2019-10-28] MEDS: MAGNESIUM OXIDE 400 MG TABLET (FP) PO SCH (10:47)
--- NOTE | 2019-10-28 11:01 | PN ---
Progress Note (short form) - Note Progress Note: s: no cp palps dizzy; edema and sob improving Current Medications Generic Name Dose Route Start Last Admin Trade Name Freglenda PRN Reason Stop Dose Admin Acetaminophen 650 mg 10/25/19 10:34 10/26/19 22:56 Tylenol - PO 650 mg Q6H PRN Administration PAIN LEVEL 6-10 Budesonide/Formoterol Fumarate 2 puff 10/24/19 22:00 10/28/19 09:52 Symbicort 160/4.5mcg - IH 2 puff BID SOREN Administration Carvedilol 6.25 mg 10/25/19 22:00 10/28/19 10:47 Coreg - PO 6.25 mg BID SOREN Administration Collagenase 1 applic 10/24/19 14:00 10/28/19 09:52 Santyl - TP Not Given DAILY SOREN Protocol Digoxin 0.125 mg 10/24/19 14:00 10/28/19 10:47 Lanoxin - PO 0.125 mg DAILY SOREN Administration Docusate Sodium 100 mg 10/24/19 14:00 10/28/19 06:00 Colace - PO Not Given TID SOREN Furosemide 40 mg 10/25/19 06:00 10/28/19 06:00 Lasix Injection - IVPUSH 40 mg BID@0600,1400 SOREN Administration Ertapenem 1 gm/ Sodium 50 mls @ 100 mls/hr 10/25/19 13:45 10/28/19 09:47 Chloride IVPB 100 mls/hr DAILY SOREN Administration Insulin Aspart 1 vial 10/24/19 16:30 10/28/19 06:17 Novolog Vial Sliding Scale - SQ Not Given ACHS SOREN Protocol Insulin Detemir 30 units 10/26/19 19:04 10/28/19 09:56 Levemir Vial SQ Not Given DAILY SOREN Loratadine 10 mg 10/24/19 13:57 Claritin - PO DAILY PRN ALLERGIES Magnesium Oxide 400 mg 10/24/19 14:00 10/28/19 10:47 Mag-Ox - PO 400 mg DAILY SOREN Administration Montelukast Sodium 10 mg 10/24/19 22:00 10/27/19 21:19 Singulair - PO 10 mg HS SOREN Administration Pantoprazole Sodium 40 mg 10/24/19 14:00 10/28/19 09:51 Protonix - PO 40 mg DAILY SOREN Administration Rivaroxaban 20 mg 10/24/19 18:00 10/27/19 17:35 Xarelto PO 20 mg DAILY@1800 SOREN Administration Sacubitril/Valsartan 1 tab 10/24/19 15:00 10/28/19 10:47 Entresto 24 Mg-26 Mg Tablet PO 1 tab BID SOREN Administration Spironolactone 25 mg 10/24/19 14:00 10/28/19 10:47 Aldactone - PO 25 mg BID SOREN Administration Tramadol HCl 50 mg 10/25/19 17:41 10/28/19 06:03 Ultram - PO 50 mg Q6H PRN Administration PAIN LEVEL 7 - 10 Vital Signs Period Temp Pulse Resp BP Sys/Khanna Pulse Ox Last 24 Hr 97.1 F-98.2 F 82-92 - 106-133/52-78 97 nad no jvd rrr s1s2 no mrg cta bl nl eff trace le edema bl abd nt nd posbs no jaundice diaphoresis aa03 CBC, BMP 10/28/19 07:15 10/28/19 07:15 EKG: afib, 104, nonspecific ST-T changes, stable compared to prior cxr: no chf echo 10/2018 dilated LV, severe global hypokinesis, EF 15-20%, RV mildly reduced function, LA mod dilated, mild MAC, mild MR, mild TR, RVSP >40-50 mmHg echo 09/2019: lve, lvef 30-35, mild dec rv fcn, mild mr a/p: 53F h/o HTN, HLD, afib, chronic systolic HF, DM p/w le edema, sob. acute on chronic systolic chf, NICM: -here with vol overload, cont iv lasix 40 bid (was on 60 po bid at home). daily wts and chem7. -Likely NICM due to chronic HTN, cocaine use -cont Entresto, Coreg, aldactone -Cont Dig (level ok) -pt had not followed up for ICD as planned in past and her cocaine use is a relative contraindication. -recent echo 09/2019 with stable chronic findings, lvef slightly improved AFib: -rate ok, cont coreg, dig (level ok). can uptitrate coreg if needed for rate control. -cont xarelto CAD, NSTEMI: -pt presented with NSTEMI in 2019 but subsequent cath showed single vessel disease, medically managed with cardiomyopathy out of proportion to degree of CAD -no signs ACS here -cont bb, ac. statin stopped previously due to elevated lfts. LE wound: as per ID/Vascular
--- NOTE | 2019-10-28 12:14 | PN ---
Progress Note, Physician History of Present Illness: stable no new issues - Current Medication List Current Medications: Active Medications Acetaminophen (Tylenol -) 650 mg PO Q6H PRN PRN Reason: PAIN LEVEL 6-10 Last Admin: 10/26/19 22:56 Dose: 650 mg Documented by: Budesonide/Formoterol Fumarate (Symbicort 160/4.5mcg -) 2 puff IH BID [facility] Last Admin: 10/28/19 09:52 Dose: 2 puff Documented by: Carvedilol (Coreg -) 6.25 mg PO BID [facility] Last Admin: 10/28/19 10:47 Dose: 6.25 mg Documented by: Collagenase (Santyl -) 1 applic TP DAILY [facility]; Protocol Last Admin: 10/28/19 09:52 Dose: Not Given Documented by: Digoxin (Lanoxin -) 0.125 mg PO DAILY [facility] Last Admin: 10/28/19 10:47 Dose: 0.125 mg Documented by: Docusate Sodium (Colace -) 100 mg PO TID [facility] Last Admin: 10/28/19 06:00 Dose: Not Given Documented by: Furosemide (Lasix Injection -) 40 mg IVPUSH BID@0600,1400 [facility] Last Admin: 10/28/19 06:00 Dose: 40 mg Documented by: Ertapenem 1 gm/ Sodium (Chloride) 50 mls @ 100 mls/hr IVPB DAILY [facility] Last Admin: 10/28/19 09:47 Dose: 100 mls/hr Documented by: Insulin Aspart (Novolog Vial Sliding Scale -) 1 vial SQ ACHS [facility]; Protocol Last Admin: 10/28/19 11:48 Dose: 4 units Documented by: Insulin Detemir (Levemir Vial) 30 units SQ DAILY [facility] Last Admin: 10/28/19 09:56 Dose: Not Given Documented by: Loratadine (Claritin -) 10 mg PO DAILY PRN PRN Reason: ALLERGIES Magnesium Oxide (Mag-Ox -) 400 mg PO DAILY [facility] Last Admin: 10/28/19 10:47 Dose: 400 mg Documented by: Montelukast Sodium (Singulair -) 10 mg PO HS [facility] Last Admin: 10/27/19 21:19 Dose: 10 mg Documented by: Pantoprazole Sodium (Protonix -) 40 mg PO DAILY [facility] Last Admin: 10/28/19 09:51 Dose: 40 mg Documented by: Rivaroxaban (Xarelto) 20 mg PO DAILY@1800 [facility] Last Admin: 10/27/19 17:35 Dose: 20 mg Documented by: Sacubitril/Valsartan (Entresto 24 Mg-26 Mg Tablet) 1 tab PO BID [facility] Last Admin: 10/28/19 10:47 Dose: 1 tab Documented by: Spironolactone (Aldactone -) 25 mg PO BID [facility] Last Admin: 10/28/19 10:47 Dose: 25 mg Documented by: Tramadol HCl (Ultram -) 50 mg PO Q6H PRN PRN Reason: PAIN LEVEL 7 - 10 Last Admin: 10/28/19 06:03 Dose: 50 mg Documented by: - Objective Vital Signs: Vital Signs Temperature 98.2 F 10/28/19 09:00 Pulse Rate 82 10/28/19 10:47 Respiratory Rate 10/28/19 09:00 Blood Pressure 119/78 10/28/19 09:00 O2 Sat by Pulse Oximetry (%) 97 10/27/19 22:30 Constitutional: Yes: No Distress, Calm Neck: Yes: Supple, Trachea Midline Cardiovascular: Yes: Regular Rate and Rhythm, S1 Respiratory: Yes: Regular, CTA Bilaterally Gastrointestinal: Yes: Normal Bowel Sounds, Soft Musculoskeletal: Yes: Other Extremities: Yes: Other Wound/Incision: Yes: Dressing Dry and Intact Neurological: Yes: Alert, Oriented Psychiatric: Yes: Alert, Oriented Labs: CBC, BMP 10/28/19 07:15 10/28/19 07:15 INR, PTT INR 3.03 (0.83-1.09) H 10/24/19 07:42 Assessment/Plan pul congestion dm lower ext swelling afib non healing wound of the leg plan abx will d/w team await for identification of organism
--- NOTE | 2019-10-28 15:47 | PN ---
Progress Note (short form) - Note Progress Note: Subjective: No fever or chills. no SOB . painin L leg is much better Objective: Vital Signs: Last Vital Signs Temp Pulse Resp BP Pulse Ox 97.4 F L 68 18 104/53 L 97 10/28/19 13:00 10/28/19 13:00 10/28/19 13:00 10/28/19 13:00 10/28/19 09:00 Laboratory Results - last 24 hr 10/27/19 10/27/19 10/28/19 17:13 20:20 06:03 WBC RBC Hgb Hct MCV MCH MCHC RDW Plt Count MPV Absolute Neuts (auto) Neutrophils % Lymphocytes % Monocytes % Eosinophils % Basophils % Nucleated RBC % Sodium Potassium Chloride Carbon Dioxide Anion Gap BUN Creatinine Est GFR (CKD-EPI)AfAm Est GFR (CKD-EPI)NonAf POC Glucometer 195 222 126 Random Glucose Calcium Phosphorus Magnesium Total Bilirubin AST ALT Alkaline Phosphatase Total Protein Albumin 10/28/19 10/28/19 10/28/19 07:15 07:15 10:50 WBC 5.0 RBC 4.50 Hgb 11.8 Hct 37.7 MCV 84.0 MCH 26.1 MCHC 31.1 L RDW 17.5 H Plt Count 295 MPV 9.0 Absolute Neuts (auto) 2.4 Neutrophils % 49.5 Lymphocytes % 32.8 Monocytes % 12.2 H Eosinophils % 3.2 Basophils % 2.3 H Nucleated RBC % 0 Sodium 140 Potassium 4.2 Chloride 102 Carbon Dioxide 28 Anion Gap 10 BUN 20.7 H Creatinine 1.0 Est GFR (CKD-EPI)AfAm 74.49 Est GFR (CKD-EPI)NonAf 64.27 POC Glucometer 203 Random Glucose 133 H Calcium 10.0 Phosphorus 4.5 Magnesium 1.5 L Total Bilirubin 0.6 AST 18 ALT 29 Alkaline Phosphatase 122 H Total Protein 7.5 Albumin 3.5 OBJECTIVE: NAD, awake. CV: RRR, no MRG. No JVD Lungs: CTAB Ext: trace + edema on legs R > L . L leg ulcer with slough , no surrounding erythema . decreased tenderness around ulcer. no discharge ASSESSMENT AND PLAN: 53 y/o lady with h/o chronic systolic heart failure, IDDM, asthma, obesity, hypertension, Afib, aspergillosis, , cocaine usage,, NSTEMI, , chronic lower extremity wounds (followed by Dr. Will), nicotine abuse, who presented with LE edema and SOB. 1- Acute on chronic systolic CHF. improved - cont lasix 40 IV BID - cont Entresto - cont coreg 2- A fib with RVR: - cont coreg. Rate is controlled - cont dig. - cont xarelto. 3- DM: long acting insulin and cont SSI. 4- L leg wound infection. s/p debridement 10/25 - cont ertapenem - apply wet to dry dressing on wound and change daily , pending surgical Recs - follow wound cx 5- H/o CAD: off plavix. cont BB . not on statin as out pt due to LFTS abn Dc depends on switching to po Abx and PO lasix . 1-2 days Visit type - Emergency Visit Emergency Visit: Yes ED Registration Date: 10/26/19 Care time: The patient presented to the Emergency Department on the above date and was hospitalized for further evaluation of their emergent condition. - New Patient This patient is new to me today: No - Critical Care Critical Care patient: No
[2019-10-28] MEDS: RIVAROXABAN 20 MG TABLET PO SCH (17:41)
[2019-10-28] MEDS: MONTELUKAST NA 10 MG TABLET PO SCH (21:00)
[2019-10-28 22:03] VITALS: BP 124/77; PULSE 78; TEMP 97.4
--- NOTE | 2019-10-29 21:44 | DS ---
Physical Exam: SUBJECTIVE: Pt left AMA OBJECTIVE: PHYSICAL EXAM Pt left AMA. 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 Will p/w worsening SOB, LE edema, and subjective weight gain. Admitted for acute on Chronic systolic CHF. EKG showed Afib w/ rapid ventricular rate; possible Aflutter. Her SOB improved with furosemide 40 IV BID. CHF was also treated with entresto, coreg 6.25 mg PO, and a salt restricted diet. Her atrial fibrillation with rapid ventricular rate was managed with coreg and Xarelto. Pts left posterior calf ulcer was debrided and wrapped. Culture of her wound grew enterococcus faecalis, enterococcus raffinosus, diphtheroid/cornybacterium, prevotella denticola. She was given entrapenem. Pt left AMA. Date of Admission:10/26/19 Date of Discharge: 10/29/19 Minutes to complete discharge: 0 Discharge Summary Problems reviewed: Yes Reason For Visit: DYSPNEA ON EXERTION Condition: Fair - Instructions Referrals: Fili Espinoza MD [Primary Care Provider] - Disposition: AGAINST MEDICAL ADVICE - Home Medications Comprehensive Discharge Medication List: Ambulatory Orders Insulin Aspart [Novolog] 16 units SQ TID 06/30/19 Loratadine 10 mg PO DAILY PRN 06/30/19 Cholecalciferol (Vitamin D3) [Vitamin D3 -] 50,000 unit PO WEEKLY 09/16/19 Fluticasone Propion/Salmeterol [Wixela 500-50 Inhub] 1 inhaler IN BID 09/16/19 Insulin Glargine,Hum.rec.anlog [Basaglar Kwikpen U-100] 30 unit SQ AM 09/16/19 Acetaminophen [Tylenol .Regular Strength -] 650 mg PO Q6H PRN tablet 10/17/19 Carvedilol 3.125 mg PO BID #60 tablet 10/17/19 Clopidogrel Bisulfate [Clopidogrel] 75 mg PO DAILY #30 tablet 10/17/19 Collagenase Clostridium Hist. [Santyl -] 1 applic TP DAILY #1 tube 10/17/19 Diaper,Brief,Adult, Disposable [Brief] 1 each MC PRN #30 each 10/17/19 Digoxin [Lanoxin -] 0.125 mg PO DAILY #30 tablet 10/17/19 Docusate Sodium [Colace -] 100 mg PO TID #90 capsule 10/17/19 Insulin Sliding Scale [Novolog Vial Sliding Scale -] 1 vial SQ ACHS units 10/17/19 Losartan Potassium [Cozaar -] 50 mg PO DAILY #30 tablet 10/17/19 Montelukast Sodium [Singulair] 10 mg PO HS #30 tablet 10/17/19 Pantoprazole Sodium [Protonix -] 40 mg PO DAILY #30 tab 10/17/19 Rivaroxaban [Xarelto -] 20 mg PO DAILY #30 tablet 10/17/19 Sacubitril/Valsartan [Entresto 24 mg-26 mg Tablet] 1 tab PO BID #60 tablet 10/17/19 Spironolactone [Aldactone -] 25 mg PO BID #60 tablet 10/17/19 Ipratropium/Albuterol Sulfate [Combivent Respimat Inhal [place]] 4 gm IH QID PRN 10/24/19 Magnesium Oxide 400 mg PO DAILY 10/24/19 Gabapentin 300 mg PO TID 10/25/19 Furosemide [Lasix -] 60 mg PO BID@0600,1400 10/27/19 This patient is new to me today: No Emergency Visit: Yes ED Registration Date: 10/26/19 Care time: The patient presented to the Emergency Department on the above date and was hospitalized for further evaluation of their emergent condition. Critical Care patient: No - Discharge Referral Referred to [facility] Med [facility] No ATTENDING PHYSICIAN STATEMENT I saw and evaluated the patient. I reviewed the resident's note and discussed the case with the resident. I agree with the resident's findings and plan as documented. SUBJECTIVE: OBJECTIVE: ASSESSMENT AND PLAN:
== END 2019-10-28 23:32 | disposition left against medical advice (07) | DRG 194 ==
LOC: JER 06:34 → JERBED 12:20 → J6WEST-2 10-25 11:34 → OBSVTOIN 10-26 13:13
PROVIDERS: ADMIT Internal Medicine; ATTEND Internal Medicine
DX: I11.0 Hypertensive heart disease with heart failure (principal); I50.23 Acute on chronic systolic (congestive) heart failure; B44.9 Aspergillosis, unspecified; I27.20 Pulmonary hypertension, unspecified; E83.42 Hypomagnesemia; L97.229 Non-pressure chronic ulcer of left calf with unspecified severity; E66.01 Morbid (severe) obesity due to excess calories; Z68.36 Body mass index [BMI] 36.0-36.9, adult; I48.91 Unspecified atrial fibrillation; Z79.01 Long term (current) use of anticoagulants; J45.909 Unspecified asthma, uncomplicated; I25.2 Old myocardial infarction; Z79.4 Long term (current) use of insulin; F17.210 Nicotine dependence, cigarettes, uncomplicated; I42.8 Other cardiomyopathies; F14.10 Cocaine abuse, uncomplicated; I25.10 Atherosclerotic heart disease of native coronary artery without angina pectoris
CPT/HCPCS: 36415; 71046-TC-FY; 80048; 80053; 80162; 82550; 82553; 82962; 83735; 83880; 84100; 84484; 85025; 85610; 87070; 87076; 87186; 87205; 93005; 93010; 97116-GP; 97161-GP; 99285-25; G0378; J0131; U0003

== ENCOUNTER 2019-11-06 05:12 | Observation (INO) | payer OTHER ==
--- NOTE | 2019-11-06 05:17 | PDOC ---
Attending Attestation - Resident Resident Name: Maximino Meza - ED Attending Attestation I have performed the following: I have examined & evaluated the patient, The case was reviewed & discussed with the resident, I agree w/resident's findings & plan - HPI HPI: 11/06/19 05:17 see resident hpi - Physicial Exam PE: 11/06/19 05:17 see resident exam - Medical Decision Making 11/06/19 06:50 53-year-old female with history of cardiomyopathy complaining of shortness of breath Chest x-ray shows cardiomegaly with no gross infiltrates Exam consistent with likely CHF exacerbation We will sign out to dayshift pending labs and reevaluation. Discharge - Discharge Information Problems reviewed: Yes Clinical Impression/Diagnosis: SOB (shortness of breath), Orthopnea, Atrial fibrillation with RVR, CHF exacerbation Condition: Fair - Follow up/Referral - Patient Discharge Instructions - Post Discharge Activity
--- NOTE | 2019-11-06 05:41 | PDOC ---
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 Will) p/w worsening SOB, LE edema, and subjective weight gain. Patient reports progressive worsening of her bilateral LE edema, worsening shortness of breath while laying flat (minimal to no shortness of breath while ambulating / upright). Called 911 when she could not lay down to sleep, has to sit 60 degrees or higher for comfort. Per EMS patient Sat was 99% on room air, b ut she requested O2 for comfort. Denies fevers, chills, nausea, vomiting, headaches, chest pain, palpitations, syncope, cough. Saw cardiology yesterday. Stopped Carvedilol, increased Lasix to 60mg BID. Of note patient was admitted 10/26/2019 for exacerbation of her systolic CHF. Demonstrated symptomatic improvement with lasix 40mg, entresto, coreg 6.25 mg PO, and a salt restricted diet. Left posterior calf ulcer was debrided, culture grew enterococcus faecalis, enterococcus raffinosus, diphtheroid/cornybacterium, prevotella denticola which was treated with entrapenem. Patient opted to leave the hospital AMA on 10/29/2019. All: Amoxicillin, Potassium clavulanate Meds: Per chart PMH: As above PSH: Per chart Past History - Travel History Traveled outside of the country in the last 30 days: No Close contact w/someone who was outside of country & ill: No - Medical History Allergies/Adverse Reactions: Allergies Allergy/AdvReac Type Severity Reaction Status Date / Time amoxicillin trihydrate Allergy Intermediate Swelling Verified 11/06/19 05:33 [From Augmentin] potassium clavulanate Allergy Intermediate Swelling Verified 11/06/19 05:33 [From Augmentin] amoxicillin Allergy Verified 11/06/19 05:33 Home Medications: Ambulatory Orders Insulin Aspart [Novolog] 16 units SQ TID 06/30/19 Loratadine 10 mg PO DAILY PRN 06/30/19 Cholecalciferol (Vitamin D3) [Vitamin D3 -] 50,000 unit PO WEEKLY 09/16/19 Fluticasone Propion/Salmeterol [Wixela 500-50 Inhub] 1 inhaler IN BID 09/16/19 Insulin Glargine,Hum.rec.anlog [Basaglar Kwikpen U-100] 30 unit SQ AM 09/16/19 Acetaminophen [Tylenol .Regular Strength -] 650 mg PO Q6H PRN tablet 10/17/19 Carvedilol 3.125 mg PO BID #60 tablet 10/17/19 Clopidogrel Bisulfate [Clopidogrel] 75 mg PO DAILY #30 tablet 10/17/19 Collagenase Clostridium Hist. [Santyl -] 1 applic TP DAILY #1 tube 10/17/19 Diaper,Brief,Adult, Disposable [Brief] 1 each MC PRN #30 each 10/17/19 Digoxin [Lanoxin -] 0.125 mg PO DAILY #30 tablet 10/17/19 Docusate Sodium [Colace -] 100 mg PO TID #90 capsule 10/17/19 Insulin Sliding Scale [Novolog Vial Sliding Scale -] 1 vial SQ ACHS units 10/17/19 Losartan Potassium [Cozaar -] 50 mg PO DAILY #30 tablet 10/17/19 Montelukast Sodium [Singulair] 10 mg PO HS #30 tablet 10/17/19 Pantoprazole Sodium [Protonix -] 40 mg PO DAILY #30 tab 10/17/19 Rivaroxaban [Xarelto -] 20 mg PO DAILY #30 tablet 10/17/19 Sacubitril/Valsartan [Entresto 24 mg-26 mg Tablet] 1 tab PO BID #60 tablet 10/17/19 Spironolactone [Aldactone -] 25 mg PO BID #60 tablet 10/17/19 Ipratropium/Albuterol Sulfate [Combivent Respimat Inhal [place]] 4 gm IH QID PRN 10/24/19 Magnesium Oxide 400 mg PO DAILY 10/24/19 Gabapentin 300 mg PO TID 10/25/19 Furosemide [Lasix -] 60 mg PO BID@0600,1400 10/27/19 Asthma: Yes Cancer: No Cardiac Disorders: Yes (reduced ejection fraction of 23%, [place] 2018) CVA: No COPD: Yes CHF: Yes (with pulmonary HTN) Diabetes: Yes Disorders: No HTN: Yes Hypercholesterolemia: Yes Liver Disease: No Psychiatric Problems: Yes (bipolar) Seizures: No Thyroid Disease: No - Surgical History Cardiac Surgery: No Cholecystectomy: Yes Neurologic Surgery: No Orthopedic Surgery: Yes (left knee replacemet - 1996) - Immunization History Immunization Up to Date: Yes - Psycho-Social/Smoking History Smoking Status: No Smoking History: Current every day smoker Have you smoked in the past 12 months: Yes Number of Cigarettes Smoked Daily: 10 If you are a former smoker, when did you quit?: 2019 'Breaking Loose' booklet given: 09/26/19 Review of Systems - Review of Systems Able to Perform ROS?: Yes Is the patient limited Chinese proficient: Yes Constitutional: No: Chills, Diaphoresis, Fever, Weakness HEENTM: No: Double Vision, Throat Pain Respiratory: No: Cough, Shortness of Breath, Wheezing Cardiac (ROS): Yes: Edema, Irregular Heart Rate. No: Chest Pain, Palpitations, Syncope ABD/GI: No: Constipated, Diarrhea, Nausea, Vomiting : No: Burning, Dysuria, Frequency Musculoskeletal: No: Muscle Pain, Muscle Weakness Integumentary: Yes: Lesions. No: Erythema Neurological: No: Headache, Numbness, Tingling, Weakness Endocrine: No: Increased Thirst, Increased Urine Hematologic/Lymphatic: No: Anemia, Blood Clots, Easy Bleeding All Other Systems: Reviewed and Negative *Physical Exam - Physical Exam 11/06/19 05:46 Vitals reviewed, afebrile, tachycardia to 110s, sat 98% on room air. GEN: Well appearing, appears stated age, NAD, comfortable. AAOx3. HEENT: NCAT, EOMI, PERRL. Sclera anicteric, noninjected. No facial asymmetry. Moist mucous membranes. Normal voice. Trachea midline. CV: RRR, S1/S2, no murmurs / rubs / gallops appreciated. LUNG: CTABL, normal work of breathing. No wheezes, rales, rhonchi. No cough. Speaking full sentences. GI: Soft, NTND, +BS, no guarding, no rebound. No masses. EXTREMITIES: 2+ distal pulses. No clubbing / cyanosis. 2+ pitting edema bilaterally. No gross deformity in any extremity. SKIN: Warm, dry, no rashes appreciated, non-jaundiced. PSYCH: Normal mood and affect. Cooperative and appropriate. NEURO: CN grossly intact. Moving all extremities well. Normal strength and sensation grossly. 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 Will) p/w worsening SOB, LE edema, and subjective weight gain. History notable for recent visit 10/25-10/28 with AMA, failure of outpatient regimen, increasing lasix requirement, progressively worsening SOB, LE edema, and orthopnea. Exam notable for tachycardia, LE edema. Together concerning for acute on chronic systolic CHF exacerbation, will evaluate for electrolyte disturbances, renal function, r/o ACS, or primary pulmonary process. - CBC, CMP, Cardiac Profile, BNP, Coags - CXR, EKG - 40mg IV Lasix 11/06/19 06:31 - CXR with enlarged heart, otherwise no acute chest pathology consistent 11/06/19 06:53 -EkBPM, afib with RVR, normal axis, QTc 447, diffuse sub-mm ST changes c/w 10/24/2019 EKG Discharge - Discharge Information Problems reviewed: Yes Clinical Impression/Diagnosis: SOB (shortness of breath), Orthopnea Condition: Fair - Follow up/Referral - Patient Discharge Instructions - Post Discharge Activity
[2019-11-06 06:33] LABS: INR 3.71 (0.83-1.09); PROTHROMBIN TIME (PATIENT) 44.4 SEC (9.7-13.0)
[2019-11-06] MEDS ORDERED: FUROSEMIDE 40 MG/4 ML INJECTABLE VIAL IVPUSH ONE (06:35)
[2019-11-06 06:36] LABS: ACTIVATED PTT 38.2 SECONDS (25.2-36.5)
[2019-11-06 06:41] LABS: BASO % 1.6 % (0-2.0); EOS % 1.9 % (0-4.5); HEMATOCRIT 33.2 % (32.4-45.2); HEMOGLOBIN 10.4 GM/dL (10.7-15.3); LYMPH % 24.8 % (8-40); MCH 25.7 pg (25.7-33.7); MCHC 31.4 g/dl (32.0-36.0); MEAN CELL VOLUME 81.6 fl (80-96); MEAN PLT VOLUME 9.8 fl (7.5-11.1); MONO % 9.7 % (3.8-10.2); PLATELET COUNT 319 K/MM3 (134-434); RBC 4.07 M/mm3 (3.60-5.2); RDW 18.1 % (11.6-15.6)
[2019-11-06 06:44] LABS: ALBUMIN 3.4 g/dl (3.4-5.0); BLOOD UREA NITROGEN 20.5 mg/dL (7-18); CALCIUM 9.4 mg/dL (8.5-10.1); CREATININE 1.5 mg/dL (0.55-1.3); N-TERMINAL BNP 3779.4 pg/ml (5-125); POTASSIUM 4.6 mmol/L (3.5-5.1); TOT PROT 7.3 g/dl (6.4-8.2)
[2019-11-06] MEDS ORDERED: FUROSEMIDE 40 MG/4 ML INJECTABLE VIAL ONE ×2 (06:50→14:39)
--- NOTE | 2019-11-06 07:46 | PDOC ---
*Physical Exam - Vital Signs Last Vital Signs Temp Pulse Resp BP Pulse Ox 98 F 118 H 20 127/81 98 11/06/19 05:15 11/06/19 05:15 11/06/19 05:15 11/06/19 05:15 11/06/19 05:15 ED Treatment Course - LABORATORY CBC & Chemistry Diagram: 11/06/19 05:50 11/06/19 05:50 - ADDITIONAL ORDERS Additional order review: Laboratory Results 11/06/19 11/06/19 05:50 05:50 PT with INR 44.40 H INR 3.71 H PTT (Actin FS) 38.2 H Sodium 133 L Potassium 4.6 Chloride 97 L Carbon Dioxide 26 Anion Gap 10 BUN 20.5 H Creatinine 1.5 H Est GFR (CKD-EPI)AfAm 45.62 Est GFR (CKD-EPI)NonAf 39.36 Random Glucose 486 H* Calcium 9.4 Total Bilirubin 1.0 AST 19 ALT 25 Alkaline Phosphatase 139 H Creatine Kinase 97 Troponin I 0.04 B-Natriuretic Peptide 3779.4 H Total Protein 7.3 Albumin 3.4 11/06/19 05:50 RBC 4.07 MCV 81.6 MCHC 31.4 L RDW 18.1 H MPV 9.8 Neutrophils % 62.0 D Lymphocytes % 24.8 D Monocytes % 9.7 Eosinophils % 1.9 Basophils % 1.6 - Medications Given in the ED: ED Medications Discontinued Medications Generic Name Dose Route Start Last Admin Trade Name Freq PRN Reason Stop Dose Admin Furosemide 40 mg 11/06/19 06:35 11/06/19 06:58 Lasix Injection - IVPUSH 11/06/19 06:36 40 mg ONCE ONE Administration Medical Decision Making - Medical Decision Making 53 y.o female with hx/o HTN, HFrEF (EF 30-35%), 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 Saw cardiology over the weekend, stopped carvedilol, increased lasix to 60mg BID. She was given 40mg IV Lasix x1 in the ED. BNP 3779, Cr 1.5 (1.0 last visit), BUN 20.5, glucose 486, trop 0.04. CXR demonstrated cardiomegaly without any other acute process. Patient will be admitted for management of Acute on Chronic HFrEF. Dr. Musa Ayala was called at 1000 with no answer, called again at 1030 Discharge - Discharge Information Problems reviewed: Yes Clinical Impression/Diagnosis: SOB (shortness of breath), Orthopnea, Atrial fibrillation with RVR CHF exacerbation Qualifiers: Heart failure type: systolic Qualified Code(s): I50.23 - Acute on chronic systolic (congestive) heart failure Condition: Fair - Admission Yes - Follow up/Referral - Patient Discharge Instructions - Post Discharge Activity
[2019-11-06] MEDS ORDERED: INSULIN (NOVOLOG) ASPART 100 UNITS/ML 10ML VIAL SQ ONE (07:58)
[2019-11-06] MEDS ORDERED: INSULIN SLIDING SCALE (NOVOLOG) 1 VIAL SQ ONE ×3 (08:07→18:07)
[2019-11-06] MEDS ORDERED: GABAPENTIN 300 MG CAPSULE PO ONE (09:18)
[2019-11-06] MEDS ORDERED: GABAPENTIN 100 MG CAPSULE ONE (10:49)
[2019-11-06] MEDS ORDERED: INSULIN REGULAR HUMAN 100 UNITS/ML *VIAL IVPUSH ONE (11:29)
[2019-11-06] MEDS ORDERED: POTASSIUM CHLORIDE TABS 20 MEQ TABLET.ER (FP) PO ONE ×2 (11:32→11:37)
[2019-11-06] MEDS ORDERED: INSULIN REGULAR HUMAN 100 UNITS/ML *VIAL ONE (11:37)
--- NOTE | 2019-11-06 12:05 | EKG ---
Test Reason : Blood Pressure : / mmHG Vent. Rate : 130 BPM Atrial Rate : 234 BPM P-R Int : 000 ms QRS Dur : 092 ms QT Int : 304 ms P-R-T Axes : 000 043 -01 degrees QTc Int : 447 ms ATRIAL FIBRILLATION WITH RAPID VENTRICULAR RESPONSE NONSPECIFIC ST AND T WAVE ABNORMALITY ABNORMAL ECG WHEN COMPARED WITH ECG OF 24-OCT-2019 08:01, NONSPECIFIC T WAVE ABNORMALITY NOW EVIDENT IN INFERIOR LEADS Confirmed by George Campos MD ([id number]) on 11/06/2019 12:04:49 PM Referred By: Confirmed By:George Campos MD
--- NOTE | 2019-11-06 12:09 | PN ---
Progress Note (short form) - Note Progress Note: Pt seen in office yesterday and was euvolemic but in AF with RVR. Coreg was discontinued as it is and has been ineffective for rate control and she was switched back to Toprol XL 25mg BID with plan for Holter. She assured me she is no longer actively using cocaine, which should be verified this admission with urine. She has not followed up with Dr. 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 suspect current decompensation is due to AF w/ RVR. REC: 1. Tele 2. Observation on Toprol 3. Utox 4. Full consult with Dr. Haas to follow
--- NOTE | 2019-11-06 12:13 | HP ---
CHIEF COMPLAINT: worsening sob, kumari PCP: Dr. Espinoza Cardio: Dr. 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 Will), nicotine abuse, and recent admissions for CHF exacerbation (10/12-10/16 and - but signed out AMA) who presents to the emergency department with worsening shortness of breath at rest and with exertion. Of note, she was recently seen in the hospital from for acute CHF exacerbation, but left AMA. At that time she was being treated with IV abx for her LLE wound ulcer, whoever she did not complete abx treatment. Today, she states that she saw her stove installer since leaving the hospital who had reportedly increased her Lasix dosage from 40 to 60 BID. She reports improvement in her leg swelling, however she still complains of pain in her LLE due to her ulcer. States she tried to make an appointment at the wound care clinic however she was not given an appointment because she did not complete her medical management during her last admission. Admits to orthopnea and kumari. Denies fever/chills, nausea/vomiting, chest pain, abd pain, urinary/bowel symptoms. States she has been taking all of her home meds as prescribed including the recent change in her lasix dosage. ER course was notable for: (1) VS wnl, slightly tachycardic, Hgb 10.4, INR 3.71, Cr 1.5, Glu 485, BNP ~3700 (2) IV Lasix 40, Gabapentin 300, Insulin 60U, PO K-Dur 20 (3) CXR showed enlarged heart Recent Travel: Denies PAST MEDICAL HISTORY: As per HPI PAST SURGICAL HISTORY: L knee surgery cholecystectomy fibroid removal FAMILY HISTORY: -Mother of cancer unspecified age possibly at 60 years old she did not remember the type of cancer, -father of some undetermined illness she does not remember Social History: Smokin cig daily Alcohol: Denies Drugs: Denies; former cocaine user Allergies amoxicillin trihydrate [From Augmentin] Allergy (Intermediate, Verified 11/06/19 05:33) Swelling potassium clavulanate [From Augmentin] Allergy (Intermediate, Verified 11/06/19 05:33) Swelling amoxicillin Allergy (Verified 11/06/19 05:33) HOME MEDICATIONS: Home Medications Medication Instructions Recorded Insulin Aspart [Novolog] 16 units SQ TID 06/30/19 Loratadine 10 mg PO DAILY PRN 06/30/19 Cholecalciferol (Vitamin D3) 50,000 unit PO WEEKLY 09/16/19 [Vitamin D3 -] Fluticasone Propion/Salmeterol 1 inhaler IN BID 09/16/19 [Wixela 500-50 Inhub] Insulin Glargine,Hum.rec.anlog 30 unit SQ AM 09/16/19 [Basaglar Kwikpen U-100] Clopidogrel Bisulfate [Clopidogrel] 75 mg PO DAILY #30 tablet 10/17/19 Collagenase Clostridium Hist. 1 applic TP DAILY #1 tube 10/17/19 [Santyl -] Diaper,Brief,Adult, Disposable 1 each MC PRN #30 each 10/17/19 [Brief] Digoxin [Lanoxin -] 0.125 mg PO DAILY #30 tablet 10/17/19 Docusate Sodium [Colace -] 100 mg PO TID #90 capsule 10/17/19 Insulin Sliding Scale [Novolog 1 vial SQ ACHS units 10/17/19 Vial Sliding Scale -] Montelukast Sodium [Singulair] 10 mg PO HS #30 tablet 10/17/19 Pantoprazole Sodium [Protonix -] 40 mg PO DAILY #30 tab 10/17/19 Rivaroxaban [Xarelto -] 20 mg PO DAILY #30 tablet 10/17/19 Sacubitril/Valsartan [Entresto 24 1 tab PO BID #60 tablet 10/17/19 mg-26 mg Tablet] Spironolactone [Aldactone -] 25 mg PO BID #60 tablet 10/17/19 Ipratropium/Albuterol Sulfate 4 gm IH QID PRN 10/24/19 [Combivent Respimat Inhal [place]] Magnesium Oxide 400 mg PO DAILY 10/24/19 Gabapentin 300 mg PO TID 10/25/19 Furosemide [Lasix -] 60 mg PO BID@0600,1400 10/27/19 REVIEW OF SYSTEMS CONSTITUTIONAL: Absent: fever, chills, diaphoresis, generalized weakness, malaise, loss of appe tite, weight change HEENT: Absent: rhinorrhea, nasal congestion, throat pain, throat swelling, difficulty swallowing, mouth swelling, ear pain, eye pain, visual changes CARDIOVASCULAR: peripheral edema Absent: chest pain, syncope, palpitations, irregular heart rate, lightheadedness, RESPIRATORY: shortness of breath, dyspnea with exertion, orthopnea Absent: cough, wheezing, stridor, hemoptysis GASTROINTESTINAL: Absent: abdominal pain, abdominal distension, nausea, vomiting, diarrhea, constipation, melena, hematochezia GENITOURINARY: Absent: dysuria, frequency, urgency, hesitancy, hematuria, flank pain, genital pain MUSCULOSKELETAL: Absent: myalgia, arthralgia, joint swelling, back pain, neck pain SKIN: LLE ulcer on posterior calf Absent: rash, itching, pallor HEMATOLOGIC/IMMUNOLOGIC: Absent: easy bleeding, easy bruising, lymphadenopathy, frequent infections ENDOCRINE: Absent: unexplained weight gain, unexplained weight loss, heat intolerance, cold intolerance NEUROLOGIC: Absent: headache, focal weakness or paresthesias, dizziness, unsteady gait, seizure, mental status changes, bladder or bowel incontinence PSYCHIATRIC: Absent: anxiety, depression, suicidal or homicidal ideation, hallucinations. PHYSICAL EXAMINATION Vital Signs - 24 hr 11/06/19 11/06/19 05:15 10:43 Temperature 98 F 99.3 F Pulse Rate 118 H Pulse Rate [ 100 H Left Radial] Respiratory 20 18 Rate Blood Pressure 127/81 Blood Pressure 131/93 [Left Arm] O2 Sat by Pulse 98 99 Oximetry (%) GENERAL: Well-appearing -[place] female. Resting comfortably in bed. NAD. AAOx3. HEENT: AT/NC. EOMI. MMM. NECK: Normal range of motion, supple without lymphadenopathy, JVD, or masses. LUNGS: Distant breath sounds. No wheezes, rales noted. HEART: Irregularly irregular. Tachycardic. No murmurs noted. ABDOMEN: Obese. Soft, NT/ND. Normoactive bowel sounds. MUSCULOSKELETAL: Normal range of motion at all joints. No bony deformities or tenderness. No CVA tenderness. EXTREMITIES: 3+ b/l LE edema, 2+ b/l dorsalis pedis pulses NEUROLOGICAL: Cranial nerves II-XII intact. Normal speech. Normal gait. PSYCHIATRIC: Cooperative. Good eye contact. Appropriate mood and affect. SKIN: ~3cm non-healing wound ulcer on the L posterior calf, non-draining, non- erythematous, dressing c/d/i Laboratory Results - last 24 hr 11/06/19 11/06/19 11/06/19 05:50 05:50 05:50 WBC 6.0 RBC 4.07 Hgb 10.4 L Hct 33.2 MCV 81.6 MCH 25.7 MCHC 31.4 L RDW 18.1 H Plt Count 319 MPV 9.8 Absolute Neuts (auto) 3.7 Neutrophils % 62.0 D Lymphocytes % 24.8 D Monocytes % 9.7 Eosinophils % 1.9 Basophils % 1.6 Nucleated RBC % 0 PT with INR 44.40 H INR 3.71 H PTT (Actin FS) 38.2 H Sodium 133 L Potassium 4.6 Chloride 97 L Carbon Dioxide 26 Anion Gap 10 BUN 20.5 H Creatinine 1.5 H Est GFR (CKD-EPI)AfAm 45.62 Est GFR (CKD-EPI)NonAf 39.36 POC Glucometer Random Glucose 486 H* Calcium 9.4 Total Bilirubin 1.0 AST 19 ALT 25 Alkaline Phosphatase 139 H Creatine Kinase 97 Troponin I 0.04 B-Natriuretic Peptide 3779.4 H Total Protein 7.3 Albumin 3.4 11/06/19 11:06 WBC RBC Hgb Hct MCV MCH MCHC RDW Plt Count MPV Absolute Neuts (auto) Neutrophils % Lymphocytes % Monocytes % Eosinophils % Basophils % Nucleated RBC % PT with INR INR PTT (Actin FS) Sodium Potassium Chloride Carbon Dioxide Anion Gap BUN Creatinine Est GFR (CKD-EPI)AfAm Est GFR (CKD-EPI)NonAf POC Glucometer 551 Random Glucose Calcium Total Bilirubin AST ALT Alkaline Phosphatase Creatine Kinase Troponin I B-Natriuretic Peptide Total Protein Albumin ASSESSMENT/PLAN: 53F with multiple comorbidities including systolic CHF (EF 30-35%), cocaine usage (per EMR), [place]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 Will), nicotine abuse, presents to the ED with ongoing shortness of breath at rest and with exertion admitted for acute on chronic CHF exacerbation as well as LLE wound ulcer. #Acute on Chronic systolic CHF; in setting of Afib w/ RVR. -Was given IV Lasix 40 mg in ED (now takes home PO Lasix 60 BID) will monitor volume status daily for need of IV diuretic as pt's Cr is worsening; currently she appears euvolemic -Coreg discontinued, now on Toprol XL 25 BID, will cont for rate control -Daily weights, I/Os -Cardio consulted -Most recent echo (10/05): stable chronic findings, LVEF slightly improved -Trop neg x1, will repeat again -Admit to tele Cont home meds: Aldactone 25 BID, Digoxin 0.125, Toprol XL 25 BID, Entresto #Afib with RVR; Not currently rate-controlled. -EKG showed Afib w/ RVR, HR 130, QTc 447 ms -Per cardio, was recently discontinued on Coreg as it had been ineffective for rate control. -Given previous hx of cocaine use, will get Utox -Dig level in AM Cont home meds: Toprol XL 25 BID, Digoxin 0.125, Xarelto 20 #Non-healing LLE wound ulcer -Underwent debridement during last admission by vasc surg, and started on IV Ertapenem but did not complete treatment -WCx from previous debridement showed +E. faecalis, E. raffinosus, Dipth/coryne, prevotella denticola -ID consulted for abx recs if needed -Cont Santyl daily #ALICE; likely 2/2 increase Lasix dosage -Monitor BMP for worsening ALICE -Avoid nephrotoxic agents #IDDM; hyperglycemic. Glu 486 -Given regular insulin 6U x2 + KCl -BGM/ISS ACHS -Will cont with Levemir 15U for now (home dose is 30U) #Prophylaxis DVT: Cont home Xarelto GI: Cont home Protonix 40 #FEN -no IVf -recheck lytes in AM -Diabetic/Sodium diet Dispo -Admit to tele Visit type - Emergency Visit Emergency Visit: Yes ED Registration Date: 11/06/19 Care time: The patient presented to the Emergency Department on the above date and was hospitalized for further evaluation of their emergent condition. - New Patient This patient is new to me today: Yes Date on this admission: 11/06/19 - Critical Care Critical Care patient: No ATTENDING PHYSICIAN STATEMENT I saw and evaluated the patient. I reviewed the resident's note and discussed the case with the resident. I agree with the resident's findings and plan as documented. SUBJECTIVE: OBJECTIVE: ASSESSMENT AND PLAN:
--- NOTE | 2019-11-06 12:34 | PN ---
Teaching Attending Note Name of Resident: Wendy Coleman ATTENDING PHYSICIAN STATEMENT I saw and evaluated the patient. I reviewed the resident's note and discussed the case with the resident. I agree with the resident's findings and plan as documented. SUBJECTIVE: 53 year old AAf with known history of aspergillosis, asthma, obesity, IDDM, atrial fib on Xarelto, with chronic LE wounds systolic CHF (EF 30-35%), cocaine use, (cocaine induced ND 09/2018), recently just admitted 10/25/2009 for exacerbation of CHF (left AMA 10/28) who presents with PND, increased shortness of breath at rest. Of note she continues to have a lower extremity wound at the LLE. She was unable to complete IV antibiotics in past most recent admission as she signed out AMA. 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 DM 2 - SSI, accuchecks - resume long acting insulin at a lower dose; cont assess requirements - low sodium ADA diet 3. Chronic LE wounds - ID consultation to assess if need further antibiotic therapy - may or not need repeat I and D - local wound care 4. DVT prophylaxis DW Dr Coleman. Agree with her H and P and plans of care. Problem List - Problems (1) Atrial fibrillation with RVR Code(s): I48.91 - UNSPECIFIED ATRIAL FIBRILLATION
[2019-11-06] MEDS ORDERED: metoPROLOL SUCCINATE 25 MG TAB.SR.24H (FP) PO SCH (12:45)
[2019-11-06] MEDS ORDERED: CHOLECALCIFEROL (VIT D3) 1,000 UNIT (25 MCG) TABLET PO SCH (12:45)
--- NOTE | 2019-11-06 13:50 | CON.CARD ---
Cardiology Consult (text) - Consultation Consultation Note: Chief Complaint: sob History of Present Illness: 53F h/o HTN, HLD, chronic systolic HF, DM p/w shortness of breath. Several recent admits for chf, last dc 10/27. Went home and felt well initially, taking lasix as prescribed and reports no use of cocaine. Saw Dr Oconnell in the office yesterday, was in afib with RVR. Metoprolol was increased. Had worsening shortness of breath so came to the ER. no edema. Feeling better with IV lasix - Past Medical History Cardio/Vascular: Yes: HTN Pulmonary: Yes: Asthma, COPD Endocrine: Yes: Diabetes Mellitus - Alcohol/Substance Use Hx Alcohol Use: No - Smoking History Smoking history: Current every day smoker Have you smoked in the past 12 months: Yes Aproximately how many cigarettes per day: 10 Home Medications - Allergies Allergies/Adverse Reactions: Current Medications Generic Name Dose Route Start Last Admin Trade Name Freq PRN Reason Stop Dose Admin Cholecalciferol 50,000 unit 11/06/19 12:45 Vitamin D3 - PO WEEKLY [facility] Clopidogrel Bisulfate 75 mg 11/07/19 10:00 Plavix - PO DAILY SOREN Collagenase 1 applic 11/06/19 13:00 Santyl - TP DAILY [facility] Protocol Digoxin 0.125 mg 11/06/19 12:45 Lanoxin - PO DAILY [facility] Docusate Sodium 100 mg 11/06/19 14:00 Colace - PO TID SOREN Gabapentin 300 mg 11/06/19 14:00 Neurontin - PO TID [facility] Insulin Aspart 1 vial 11/06/19 16:30 Novolog Vial Sliding Scale - SQ ACHS [facility] Protocol Metoprolol Succinate 25 mg 11/06/19 13:00 Toprol Xl - PO BID SOREN Montelukast Sodium 10 mg 11/06/19 22:00 Singulair - PO HS SOREN Pantoprazole Sodium 40 mg 11/06/19 12:45 Protonix - PO DAILY SOREN Rivaroxaban 20 mg 11/06/19 18:00 Xarelto PO DAILY@1800 SOREN Sacubitril/Valsartan 1 tab 11/06/19 22:00 Entresto 24 Mg-26 Mg Tablet PO BID SOREN Spironolactone 25 mg 11/06/19 12:45 Aldactone - PO BID [facility] Family Disease History - Family Disease History Family Disease History: Diabetes: Sister (seven - ), Heart Disease: Sister, CA: Mother (), Respiratory: Sister, Other: Father (, etoh), Mother, Brother (four - one mental health problem), Sister, Son (five - asthma ), Daughter (one - healthy) Review of Systems - Review of Systems per hpi; all others nl Vital Signs Period Temp Pulse Resp BP Sys/Khanna Pulse Ox Last 24 Hr 98 F-99.3 F 100-118 18-20 127-131/81-93 98-99 Constitutional: Yes: No Distress, Calm Eyes: Yes: Conjunctiva Clear, EOM Intact HENT: Yes: Atraumatic, Normocephalic Neck: Yes: Supple, Trachea Midline Respiratory: cta bl nl eff Gastrointestinal: Yes: Normal Bowel Sounds, Soft Cardiovascular: Yes: Tachycardia JVD: No Carotid Bruit: No PMI: Non-Displaced Heart Sounds: Yes: S1, S2 Musculoskeletal: No: Back Pain Extremities: Yes: Cool Edema: Yes Edema: LLE: 1+, RLE: 1+ Integumentary: No: Jaundice Neurological: Yes: Alert, Oriented Psychiatric: No: Agitated EKG: afib, [address]-T changes cxr: no congestion echo 10/2018 dilated LV, severe global hypokinesis, EF 15-20%, RV mildly reduced function, LA mod dilated, mild MAC, mild MR, mild TR, RVSP >40-50 mmHg echo 09/2019: lve, lvef 30-35, mild dec rv fcn, mild mr a/p: 53F h/o HTN, HLD, afib, chronic systolic HF, DM p/w sob acute on chronic systolic chf, NICM: -CHF exac likely in setting of afib with RVR - cont iv lasix 40 bid. daily wts and chem7. -Likely NICM due to chronic HTN, cocaine use -cont Entresto, Coreg, aldactone -pt had not followed up for ICD as planned in past and her cocaine use is a relative contraindication -recent echo 09/2019 with stable chronic findings, lvef slightly improved AFib: - metoprolol succinate increased to 25 mg BID yesterday in office - monitor on tele, uptitrate bb as needed, cont digoxin - dig level pending -cont xarelto CAD, NSTEMI: -pt presented with NSTEMI in 2018 but subsequent cath showed single vessel disease, medically managed with cardiomyopathy out of proportion to degree of CAD -no signs ACS here -cont bb, ac. statin stopped previously due to elevated lfts.
--- NOTE | 2019-11-06 14:10 | CON.ID ---
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 Will), nicot ine abuse, and recent admissions for CHF exacerbation (10/12-10/16 and - but signed out AMA) who presents with worsening shortness of breath at rest and with exertion. Of note, she was recently seen in the hospital from for acute CHF exacerbation, but left AMA. At that time she was being treated with IV abx for her LLE wound ulcer, whoever she did not complete abx treatment. Today, she states that she saw her claim clinician since leaving the hospital who had reportedly increased her Lasix dosage from 40 to 60 BID. She reports improvement in her leg swelling, however she still complains of pain in her LLE due to her ulcer. States she tried to make an appointment at the wound care clinic however she was not given an appointment because she did not complete her medical management during her last admission. - History Source History Provided By: Patient Limitations to Obtaining History: No Limitations - Past Medical History Cardio/Vascular: Yes: AFIB, CAD (NONOBSTRUCTIVE), CHF (EF 15-20%, with INC RVP,), HTN, Hyperlipdemia, Pulmonary Hypertension Pulmonary: Yes: Asthma, COPD, Sleep Apnea (LIKLEY BUT NEVER TESTED) ...LMP: 05/28/14 Psych: Yes: Anxiety Musculoskeletal: Yes: Chronic low back pain, Other (Other (right knee with healed scar, mild bilateral edema, stiffness, moves with difficulty)) Endocrine: Yes: Diabetes Mellitus - Past Surgical History Past Surgical History: Yes: Cholecystectomy, (3), Joint Replacement (LEFT KNEE) - Alcohol/Substance Use Hx Alcohol Use: No History of Substance Use: reports: Cocaine - Smoking History Smoking history: Current every day smoker Have you smoked in the past 12 months: Yes Aproximately how many cigarettes per day: 10 If you are a former smoker, when did you quit?: 2019 - Social History ADL: Independent History of Recent Travel: No Home Medications - Allergies Allergies/Adverse Reactions: Allergies Allergy/AdvReac Type Severity Reaction Status Date / Time amoxicillin trihydrate Allergy Intermediate Swelling Verified 12/04/19 11:47 [From Augmentin] potassium clavulanate Allergy Intermediate Swelling Verified 12/04/19 11:47 [From Augmentin] amoxicillin Allergy Verified 12/04/19 11:47 - Home Medications Home Medications: Ambulatory Orders Loratadine 10 mg PO DAILY PRN 06/30/19 Cholecalciferol (Vitamin D3) [Vitamin D3 -] 50,000 unit PO WEEKLY 09/16/19 Fluticasone Propion/Salmeterol [Wixela 500-50 Inhub] 1 inhaler IN BID 09/16/19 Insulin Glargine,Hum.rec.anlog [Basaglar Kwikpen U-100] 38 unit SQ DAILY 09/16/19 Collagenase Clostridium Hist. [Santyl -] 1 applic TP DAILY #1 tube 10/17/19 Docusate Sodium [Colace -] 100 mg PO TID #90 capsule 10/17/19 Montelukast Sodium [Singulair] 10 mg PO HS #30 tablet 10/17/19 Pantoprazole Sodium [Protonix -] 40 mg PO DAILY #30 tab 10/17/19 Rivaroxaban [Xarelto -] 20 mg PO DAILY #30 tablet 10/17/19 Sacubitril/Valsartan [Entresto 24 mg-26 mg Tablet] 1 tab PO BID #60 tablet 10/17/19 Spironolactone [Aldactone -] 25 mg PO BID #60 tablet 10/17/19 Furosemide [Lasix -] 60 mg PO BID@0600,1400 10/27/19 Metoprolol Succinate [Toprol Xl] 25 mg PO BID 11/06/19 Digoxin [Lanoxin -] 0.125 mg PO DAILY #30 tablet 11/08/19 Liraglutide [Victoza -] 1.2 mg SQ DAILY 11/08/19 Insulin Glargine,Hum.rec.anlog [Lantus] 30 unit SQ HS 12/04/19 Review of Systems - Review of Systems Constitutional: reports: Weakness Eyes: reports: No Symptoms HENT: reports: No Symptoms Neck: reports: No Symptoms Cardiovascular: reports: Shortness of Breath Respiratory: reports: SOB, SOB on Exertion Gastrointestinal: reports: No Symptoms Genitourinary: reports: No Symptoms Breasts: reports: No Symptoms Reported Musculoskeletal: reports: Other Integumentary: reports: Wound Neurological: reports: No Symptoms Endocrine: reports: No Symptoms Hematology/Lymphatic: reports: No Symptoms Psychiatric: reports: No Symptoms Physical Exam Vital Signs: Vital Signs Temperature 99.3 F 11/06/19 10:43 Pulse Rate 100 H 11/06/19 13:58 Respiratory Rate 18 11/06/19 13:58 Blood Pressure 138/102 H 11/06/19 13:58 O2 Sat by Pulse Oximetry (%) 97 11/06/19 13:58 Constitutional: Yes: Calm, Mild Distress, Obese Eyes: Yes: Conjunctiva Clear HENT: Yes: Atraumatic, Normocephalic Neck: Yes: Supple, Trachea Midline Cardiovascular: Yes: Pulse Irregular Respiratory: Yes: Regular, CTA Bilaterally Gastrointestinal: Yes: Normal Bowel Sounds, Soft Musculoskeletal: Yes: Other Extremities: Yes: Other Edema: LLE: 2+, RLE: 2+ Integumentary: Yes: Other Wound/Incision: Yes: Clean/Dry, Open to air Neurological: Yes: Alert, Oriented Psychiatric: Yes: Alert, Oriented Labs: CBC, BMP 11/06/19 05:50 11/06/19 05:50 Imaging - Results Chest X-ray: Report Reviewed, Image Reviewed Cat Scan: Report Reviewed, Image Reviewed Assessment/Plan 54 year old woman with MHx of Afib (on Xarelto), HFrEF (LVEF 15-20%), Cocaine- induced [place], BLE edema/wound, Bipolar disorder, Left knee replacement, HTN, HLD, Asthma, Insulin-treated DM, , Tobacco use and multiple admissions for "CHF exacerbation" presenting with SOB and recent cocaine use Afib Cocaine abuse bipolar HTN HLD ASthma DM plan looked at the wound wound is clean will nto give any abx wound care
[2019-11-06] MEDS ORDERED: DOCUSATE SODIUM 100 MG CAPSULE (FP) PO ONE (14:32)
[2019-11-06] MEDS ORDERED: DIGOXIN 0.125 MG TABLET (FP) ONE (14:32)
[2019-11-06] MEDS ORDERED: SPIRONOLACTONE 25 MG TABLET ONE (14:32)
[2019-11-06] MEDS ORDERED: metoPROLOL SUCCINATE 25 MG TAB.SR.24H (FP) ONE (14:32)
[2019-11-06] MEDS: traMADol HCL 50 MG TABLET PO PRN ×2 (14:46→22:58)
[2019-11-06] MEDS: DOCUSATE SODIUM 100 MG CAPSULE (FP) PO SCH ×2 (14:50→23:05)
[2019-11-06] MEDS: GABAPENTIN 300 MG CAPSULE PO SCH ×2 (14:50→23:06)
[2019-11-06] MEDS: FUROSEMIDE 40 MG/4 ML INJECTABLE VIAL IVPUSH SCH (14:50)
[2019-11-06] MEDS: metoPROLOL SUCCINATE 25 MG TAB.SR.24H (FP) PO SCH ×2 (14:50→22:58)
[2019-11-06] MEDS: SPIRONOLACTONE 25 MG TABLET PO SCH ×2 (14:51→22:57)
[2019-11-06] MEDS: DIGOXIN 0.25 MG TABLET (FP) PO SCH (14:51)
[2019-11-06] MEDS: COLLAGENASE CLOSTRIDIUM HIST. 30 GRAMS TUBE TP SCH (18:04)
[2019-11-06] MEDS: INSULIN SLIDING SCALE (NOVOLOG) 1 VIAL SQ SCH ×2 (18:04→23:00)
[2019-11-06] MEDS: PANTOPRAZOLE 40 MG TABLET PO SCH (18:04)
[2019-11-06] MEDS ORDERED: PANTOPRAZOLE 40 MG TABLET ONE (18:06)
[2019-11-06] MEDS: RIVAROXABAN 20 MG TABLET PO SCH (18:28)
[2019-11-06] MEDS: SACUBITRIL/VALSARTAN 24 MG-26 MG TABLET PO SCH (22:58)
[2019-11-06] MEDS: MONTELUKAST NA 10 MG TABLET PO SCH (22:58)
[2019-11-06 23:34] LABS: METHADONE, UR NEGATIVE ng/ml (CUTOFF=300); OPIATES, URI NEGATIVE ng/ml (CUTOFF=300); PHENCYCLIDINE,URINE NEGATIVE ng/ml (CUTOFF=25); URINE AMPHETAMINES NEGATIVE ng/ml (CUTOFF=500); URINE BARBITURATES NEGATIVE ng/ml (CUTOFF=200); URINE BENZODIAZEPINES NEGATIVE ng/ml (CUTOFF=200)
[2019-11-06 23:36] LABS: COCAINE, UR POSITIVE ng/ml (CUTOFF=300)
[2019-11-06 23:52] VITALS: BMI 36.6
[2019-11-07] MEDS: GABAPENTIN 300 MG CAPSULE PO SCH ×3 (06:07→13:53)
[2019-11-07] MEDS: DOCUSATE SODIUM 100 MG CAPSULE (FP) PO SCH ×4 (06:07→21:39)
[2019-11-07] MEDS: traMADol HCL 50 MG TABLET PO PRN ×2 (06:16→21:39)
[2019-11-07] MEDS: INSULIN SLIDING SCALE (NOVOLOG) 1 VIAL SQ SCH ×4 (06:17→21:40)
[2019-11-07] MEDS: FUROSEMIDE 40 MG/4 ML INJECTABLE VIAL IVPUSH SCH (06:17)
[2019-11-07 07:54] LABS: BASO % 2.1 % (0-2.0); HEMOGLOBIN 11.3 GM/dL (10.7-15.3); LYMPH % 39.5 % (8-40); MCH 25.1 pg (25.7-33.7); MCHC 30.7 g/dl (32.0-36.0); MEAN CELL VOLUME 81.9 fl (80-96); MEAN PLT VOLUME 9.3 fl (7.5-11.1); MONO % 10.1 % (3.8-10.2); NEUT % 44.3 % (42.8-82.8); PLATELET COUNT 342 K/MM3 (134-434); RBC 4.51 M/mm3 (3.60-5.2); RDW 18.5 % (11.6-15.6); WHITE BLOOD COUNT 6.9 K/mm3 (4.0-10.0)
[2019-11-07 08:14] LABS: ALBUMIN 3.1 g/dl (3.4-5.0); BILIRUBIN,TOTAL 0.8 mg/dL (0.2-1); BLOOD UREA NITROGEN 22.9 mg/dL (7-18); CALCIUM 9.7 mg/dL (8.5-10.1); CREATININE 1.1 mg/dL (0.55-1.3); MAGNESIUM 1.5 mg/dL (1.8-2.4); POTASSIUM 4.2 mmol/L (3.5-5.1); TOT PROT 7.1 g/dl (6.4-8.2)
[2019-11-07] MEDS: INSULIN (LEVEMIR) 100 UNITS/ML UNITS SQ ONE ×2 (08:45→10:13)
[2019-11-07] MEDS ORDERED: PT OWN MED DRAWER 7, Y5N ONE (09:38)
[2019-11-07] MEDS: DIGOXIN 0.25 MG TABLET (FP) PO SCH (09:59)
[2019-11-07] MEDS: SPIRONOLACTONE 25 MG TABLET PO SCH ×2 (09:59→21:38)
[2019-11-07] MEDS: SACUBITRIL/VALSARTAN 24 MG-26 MG TABLET PO SCH ×2 (09:59→21:39)
[2019-11-07] MEDS ORDERED: CLOPIDOGREL BISULFATE 75 MG TABLET (FP) PO SCH (10:00)
[2019-11-07] MEDS: metoPROLOL SUCCINATE 25 MG TAB.SR.24H (FP) PO SCH ×2 (10:01→21:40)
[2019-11-07] MEDS: PANTOPRAZOLE 40 MG TABLET PO SCH (10:01)
[2019-11-07] MEDS: COLLAGENASE CLOSTRIDIUM HIST. 30 GRAMS TUBE TP SCH (10:12)
--- NOTE | 2019-11-07 12:29 | PN ---
Progress Note (short form) - Note Progress Note: cc: sob s: edema resolved, no sob, palps, dizziness, cp Current Medications Generic Name Dose Route Start Last Admin Trade Name Santa PRN Reason Stop Dose Admin Cholecalciferol 50,000 unit 11/06/19 12:45 Vitamin D3 - PO WEEKLY [facility] Clopidogrel Bisulfate 75 mg 11/07/19 10:00 11/07/19 10:01 Plavix - PO 75 mg DAILY [facility] Administration Collagenase 1 applic 11/06/19 13:00 11/07/19 10:12 Santyl - TP 1 applic DAILY [facility] Administration Protocol Digoxin 0.125 mg 11/06/19 12:45 11/07/19 09:59 Lanoxin - PO 0.125 mg DAILY [facility] Administration Docusate Sodium 100 mg 11/06/19 14:00 11/07/19 06:07 Colace - PO Not Given TID S[facility]EN Furosemide 40 mg 11/06/19 14:00 11/07/19 06:17 Lasix Injection - IVPUSH 40 mg BID@0600,1400 S[facility] Administration Gabapentin 300 mg 11/06/19 14:00 11/07/19 06:07 Neurontin - PO Not Given TID SOREN Insulin Aspart 1 vial 11/06/19 16:30 11/07/19 12:01 Novolog Vial Sliding Scale - SQ 2 units ACHS [facility] Administration Protocol Insulin Detemir 30 units 11/08/19 07:00 Levemir Vial SQ AM [facility] Metoprolol Succinate 25 mg 11/06/19 13:00 11/07/19 10:01 Toprol Xl - PO 25 mg BID S[facility]EN Administration Montelukast Sodium 10 mg 11/06/19 22:00 11/06/19 22:58 Singulair - PO 10 mg HS [facility]EN Administration Pantoprazole Sodium 40 mg 11/06/19 12:45 11/07/19 10:01 Protonix - PO 40 mg DAILY SOREN Administration Rivaroxaban 20 mg 11/06/19 18:00 11/06/19 18:28 Xarelto PO 20 mg DAILY@1800 S[facility] Administration Sacubitril/Valsartan 1 tab 11/06/19 22:00 11/07/19 09:59 Entresto 24 Mg-26 Mg Tablet PO 1 tab BID [facility] Administration Spironolactone 25 mg 11/06/19 12:45 11/07/19 09:59 Aldactone - PO 25 mg BID [facility] Administration Tramadol HCl 50 mg 11/06/19 14:24 11/07/19 06:16 Ultram - PO 50 mg Q6H PRN Administration PAIN LEVEL 6-10 Vital Signs Period Temp Pulse Resp BP Sys/Khanna Pulse Ox Last 24 Hr 97.4 F-98.1 F 90-115 18-20 116-147/72-102 97-100 Constitutional: Yes: No Distress, Calm Eyes: Yes: Conjunctiva Clear, EOM Intact HENT: Yes: Atraumatic, Normocephalic Neck: Yes: Supple, Trachea Midline Respiratory: cta bl nl eff Gastrointestinal: Yes: Normal Bowel Sounds, Soft Cardiovascular: Yes: Tachycardia JVD: No Carotid Bruit: No PMI: Non-Displaced Heart Sounds: Yes: S1, S2 Musculoskeletal: No: Back Pain Extremities: Yes: Cool Edema: Yes Edema: LLE: 1+, RLE: 1+ Integumentary: No: Jaundice Neurological: Yes: Alert, Oriented Psychiatric: No: Agitated EKG: afib, [address]-T changes cxr: no congestion echo 10/2018 dilated LV, severe global hypokinesis, EF 15-20%, RV mildly reduced function, LA mod dilated, mild MAC, mild MR, mild TR, RVSP >40-50 mmHg echo 09/2019: lve, lvef 30-35, mild dec rv fcn, mild mr a/p: 53F h/o HTN, HLD, afib, chronic systolic HF, DM p/w sob acute on chronic systolic chf, NICM: -CHF exac likely in setting of afib with RVR, also utox +cocaine - edema resolved with iv lasix 40 bid, wt lower than prior discharge weight - change to lasix 60 po BID, home dose -Likely NICM due to chronic HTN, cocaine use -cont Entresto, Coreg, aldactone -pt had not followed up for ICD as planned in past and her cocaine use is a relative contraindication - -recent echo 09/2019 with stable chronic findings, lvef slightly improved AFib: - metoprolol succinate increased to 25 mg BID yesterday in office - monitor on tele, uptitrate bb as needed, cont digoxin - dig level pending -cont xarelto - refusing tele CAD, NSTEMI: -pt presented with NSTEMI in 2018 but subsequent cath showed single vessel disease, medically managed with cardiomyopathy out of proportion to degree of CAD -no signs ACS here -cont bb, ac. statin stopped previously due to elevated lfts. lower ext wound - manage per ID
--- NOTE | 2019-11-07 13:26 | PN ---
Progress Note, Physician History of Present Illness: stable no new issues - Current Medication List Current Medications: Active Medications Cholecalciferol (Vitamin D3 -) 50,000 unit PO WEEKLY [facility] Clopidogrel Bisulfate (Plavix -) 75 mg PO DAILY [facility] Last Admin: 11/07/19 10:01 Dose: 75 mg Documented by: Collagenase (Santyl -) 1 applic TP DAILY [facility]; Protocol Last Admin: 11/07/19 10:12 Dose: 1 applic Documented by: Digoxin (Lanoxin -) 0.125 mg PO DAILY [facility] Last Admin: 11/07/19 09:59 Dose: 0.125 mg Documented by: Docusate Sodium (Colace -) 100 mg PO TID [facility] Last Admin: 11/07/19 06:07 Dose: Not Given Documented by: Furosemide (Lasix -) 60 mg PO BID@0600,1400 [facility] Gabapentin (Neurontin -) 300 mg PO TID [facility] Last Admin: 11/07/19 06:07 Dose: Not Given Documented by: Insulin Aspart (Novolog Vial Sliding Scale -) 1 vial SQ [facility]; Protocol Last Admin: 11/07/19 12:01 Dose: 2 units Documented by: Insulin Detemir (Levemir Vial) 30 units SQ AM [facility] Metoprolol Succinate (Toprol Xl -) 25 mg PO BID [facility] Last Admin: 11/07/19 10:01 Dose: 25 mg Documented by: Montelukast Sodium (Singulair -) 10 mg PO HS [facility] Last Admin: 11/06/19 22:58 Dose: 10 mg Documented by: Pantoprazole Sodium (Protonix -) 40 mg PO DAILY [facility] Last Admin: 11/07/19 10:01 Dose: 40 mg Documented by: Rivaroxaban (Xarelto) 20 mg PO DAILY@1800 [facility] Last Admin: 11/06/19 18:28 Dose: 20 mg Documented by: Sacubitril/Valsartan (Entresto 24 Mg-26 Mg Tablet) 1 tab PO BID [facility] Last Admin: 11/07/19 09:59 Dose: 1 tab Documented by: Spironolactone (Aldactone -) 25 mg PO BID [facility] Last Admin: 11/07/19 09:59 Dose: 25 mg Documented by: Tramadol HCl (Ultram -) 50 mg PO Q6H PRN PRN Reason: PAIN LEVEL 6-10 Last Admin: 11/07/19 06:16 Dose: 50 mg Documented by: - Objective Vital Signs: Vital Signs Temperature 97.9 F 11/07/19 09:00 Pulse Rate 91 H 11/07/19 09:59 Respiratory Rate 11/07/19 09:00 Blood Pressure 128/72 11/07/19 09:00 O2 Sat by Pulse Oximetry (%) 100 11/06/19 22:00 Constitutional: Yes: No Distress, Calm Cardiovascular: Yes: S1, S2 Gastrointestinal: Yes: Normal Bowel Sounds, Soft Musculoskeletal: Yes: WNL Extremities: Yes: Other Edema: LLE: 1+, RLE: 1+ Wound/Incision: Yes: Dressing Dry and Intact Neurological: Yes: Alert, Oriented Psychiatric: Yes: Alert, Oriented Labs: CBC, BMP 11/07/19 06:55 11/07/19 06:55 INR, PTT INR 3.71 (0.83-1.09) H 11/06/19 05:50 Assessment/Plan 54 year old woman with MHx of Afib (on Xarelto), HFrEF (LVEF 15-20%), 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
[2019-11-07] MEDS: FUROSEMIDE 40 MG TABLET (FP) PO SCH (13:37)
--- NOTE | 2019-11-07 14:16 | PN ---
Teaching Attending Note Name of Resident: Anatoliy Aldana ATTENDING PHYSICIAN STATEMENT I saw and evaluated the patient. I reviewed the resident's note and discussed the case with the resident. I agree with the resident's findings and plan as documented. SUBJECTIVE: No fever or chills. No BROCK , no SOB . she feels much better . no pain in L leg. she denies using recent cocaine, she used it 2 weeks ago. ( although it is positive in her urine ). she understands it is dangerous fro the heart OBJECTIVE: NAD, awake. CV: RRR, no MRG. No JVD Lungs: CTAB Ext: trace + edema on legs . L leg ulcer on medial aspect with slough , no surrounding erythema .No surrounding tenderness ASSESSMENT AND PLAN: 53 y/o lady with h/o chronic systolic heart failure, IDDM, asthma, obesity, hypertension, Afib, aspergillosis, , cocaine usage,, NSTEMI, , chronic lower extremity wounds (followed by Dr. Will), nicotine abuse, and recent hospitalization fro CHF and infected wound who presented with SOB. She was diagnosed with acute CHF exacerbation 1- Acute on chronic diastolic CHF exacerbation - cont Iv laisx - cont Entresto and coreg 2- A fib with RVR: EKG reviewed. RVR noted at 130 . compliance with meds is a question as dig level is low . - cont dig and coreg - advised to stop cocaine use - cont xarelto 3- DM: uncontrolled. sugar was in 500s yesterday. - resume levemir - cont SSI 4- L leg wound - d/w dr. Eduardo . No need for Abx - dry clean dressing daily 5- H/o CAD: cont BB . dc plavix . previous card notes reviewed. not on statin as out pt due to LFTS abn
[2019-11-07] MEDS: RIVAROXABAN 20 MG TABLET PO SCH (17:12)
--- NOTE | 2019-11-07 21:30 | PN ---
Physical Exam: SUBJECTIVE: No overnight events. Patient seen and examined. Pt endorses her SOB improved after the IV lasix. Denies CP and pain of her posterior calf wound. OBJECTIVE: Vital Signs Period Temp Pulse Resp BP Sys/Khanna Pulse Ox Last 24 Hr 97.4 F-98.3 F 90-97 19-20 112-134/42-92 97-100 GENERAL: The patient is awake, alert, and fully oriented, in no acute distress. HEENT: NT, NC. No ptosis. MMM LUNGS: Breath sounds equal, clear to auscultation bilaterally, no wheezes, no crackles, no accessory muscle use. HEART: Regular rate and rhythm, S1, S2 without murmur, rub or gallop. ABDOMEN: Soft, nontender, nondistended, normoactive bowel sounds, no guarding, no rebound EXTREMITIES: 2+ pulses, warm, well-perfused, minimal non-pitting edema. L posterior calf wound is non-erythematous, non-TTP, no fluctuance; no discharge; sloughing. NEUROLOGICAL: Normal speech, gait not observed. PSYCH: Normal mood, normal affect. SKIN: Warm, dry, normal turgor, no rashes or lesions noted Laboratory Results - last 24 hr 11/06/19 11/06/19 11/07/19 07:15 23:00 06:15 WBC RBC Hgb Hct MCV MCH MCHC RDW Plt Count MPV Absolute Neuts (auto) Neutrophils % Lymphocytes % Monocytes % Eosinophils % Basophils % Nucleated RBC % Sodium Potassium Chloride Carbon Dioxide Anion Gap BUN Creatinine Est GFR (CKD-EPI)AfAm Est GFR (CKD-EPI)NonAf POC Glucometer 118 Random Glucose Calcium Phosphorus Magnesium Total Bilirubin AST ALT Alkaline Phosphatase Total Protein Albumin Digoxin Opiates Screen Negative Methadone Screen Negative Barbiturate Screen Negative Phencyclidine Screen Negative Ur Amphetamines Screen Negative MDMA (Ecstasy) Screen Negative Benzodiazepines Screen Negative Cocaine Screen Positive A* U Marijuana (THC) Screen Negative COVID-19 (JUNIE) Not detected 11/07/19 11/07/19 11/07/19 06:55 06:55 06:55 WBC 6.9 RBC 4.51 Hgb 11.3 Hct 37.0 MCV 81.9 MCH 25.1 L MCHC 30.7 L RDW 18.5 H Plt Count 342 MPV 9.3 Absolute Neuts (auto) 3.0 Neutrophils % 44.3 D Lymphocytes % 39.5 D Monocytes % 10.1 Eosinophils % 4.0 D Basophils % 2.1 H Nucleated RBC % 0 Sodium 136 Potassium 4.2 Chloride 102 Carbon Dioxide 23 Anion Gap 11 BUN 22.9 H Creatinine 1.1 Est GFR (CKD-EPI)AfAm 66.38 Est GFR (CKD-EPI)NonAf 57.27 POC Glucometer Random Glucose 115 H Calcium 9.7 Phosphorus 4.0 Magnesium 1.5 L Total Bilirubin 0.8 AST 21 ALT 26 Alkaline Phosphatase 128 H Total Protein 7.1 Albumin 3.1 L Digoxin < 0.3 L Opiates Screen Methadone Screen Barbiturate Screen Phencyclidine Screen Ur Amphetamines Screen MDMA (Ecstasy) Screen Benzodiazepines Screen Cocaine Screen U Marijuana (THC) Screen COVID-19 (JUNIE) 11/07/19 17:10 WBC RBC Hgb Hct MCV MCH MCHC RDW Plt Count MPV Absolute Neuts (auto) Neutrophils % Lymphocytes % Monocytes % Eosinophils % Basophils % Nucleated RBC % Sodium Potassium Chloride Carbon Dioxide Anion Gap BUN Creatinine Est GFR (CKD-EPI)AfAm Est GFR (CKD-EPI)NonAf POC Glucometer 317 Random Glucose Calcium Phosphorus Magnesium Total Bilirubin AST ALT Alkaline Phosphatase Total Protein Albumin Digoxin Opiates Screen Methadone Screen Barbiturate Screen Phencyclidine Screen Ur Amphetamines Screen MDMA (Ecstasy) Screen Benzodiazepines Screen Cocaine Screen U Marijuana (THC) Screen COVID-19 (JUNIE) Active Medications Generic Name Dose Route Start Last Admin Trade Name Freq PRN Reason Stop Dose Admin Cholecalciferol 50,000 unit 11/06/19 12:45 Vitamin D3 - PO WEEKLY [facility] Collagenase 1 applic 11/06/19 13:00 11/07/19 10:12 Santyl - TP 1 applic DAILY [facility] Administration Protocol Digoxin 0.125 mg 11/06/19 12:45 11/07/19 09:59 Lanoxin - PO 0.125 mg DAILY [facility] Administration Docusate Sodium 100 mg 11/06/19 14:00 11/07/19 13:52 Colace - PO Not Given TID SOREN Furosemide 60 mg 11/07/19 14:00 11/07/19 13:37 Lasix - PO 60 mg BID@0600,1400 [facility] Administration Insulin Aspart 1 vial 11/06/19 16:30 11/07/19 17:12 Novolog Vial Sliding Scale - SQ 8 units ACHS [facility] Administration Protocol Insulin Detemir 30 units 11/08/19 07:00 Levemir Vial SQ AM [facility] Metoprolol Succinate 25 mg 11/06/19 13:00 11/07/19 10:01 Toprol Xl - PO 25 mg BID [facility] Administration Montelukast Sodium 10 mg 11/06/19 22:00 11/06/19 22:58 Singulair - PO 10 mg HS [facility] Administration Pantoprazole Sodium 40 mg 11/06/19 12:45 11/07/19 10:01 Protonix - PO 40 mg DAILY [facility] Administration Rivaroxaban 20 mg 11/06/19 18:00 11/07/19 17:12 Xarelto PO 20 mg DAILY@1800 [facility] Administration Sacubitril/Valsartan 1 tab 11/06/19 22:00 11/07/19 09:59 Entresto 24 Mg-26 Mg Tablet PO 1 tab BID [facility] Administration Spironolactone 25 mg 11/06/19 12:45 11/07/19 09:59 Aldactone - PO 25 mg BID [facility] Administration Tramadol HCl 50 mg 11/06/19 14:24 11/07/19 06:16 Ultram - PO 50 mg Q6H PRN Administration PAIN LEVEL 6-10 ASSESSMENT/PLAN: 53F PMH HTN, systolic CHF (EF 30-35%), cocaine use, cocaine induced [place] 09/2018, h/o aspergillosis, asthma, obesity, IDDM, Afib (Xarelto), chronic LE wounds (followed by Dr. Will p/w worsening SOB, LE edema, and subjective weight gain. Admitted for acute on Chronic systolic CHF. #Acute on Chronic CHF with Afib w/ RVR. -furosemide 60 mg PO BID -c/w home rx spironolactone 25 BID, Digoxin 0.125, metoprolol succinate(Toprol XL) 25 BID, Entresto (sacubitril/valasarta 24mg/26mg)BID -Daily weights, I/Os #Atrial fibrillation with RVR at 130 - c/w digoxin. Digoxin level was <0.3, so will re-discuss with pt rx compliance - utox positive for cocaine. As per cardio, pt did not f/u for ICD; cocaine also a relative contraindication -c/w rivaroxaban 20 mg PO daily #DM -ISS -BGM -started Levemir 30 units SQ AM #Left posterior leg ulcer -Wound cx from previous admission showed enterococcus faecalis, enterococcus raffinosus, diphtheroid/cornybacterium, prevotella denticola. Treated w/ IV entr apenem & debridement prior to AMA. -ID c/s appreciated. No abx - sterile/dry dressing daily #CAD -c/w metoprolol -d/c Plavix #FEN No IV fluids Monitor lytes Diabetic/Na+ controlled diet #DVT PPX Rivaroxaban 20 mg PO daily #DISPO Maintain tele Visit type - Emergency Visit Emergency Visit: Yes ED Registration Date: 11/06/19 Care time: The patient presented to the Emergency Department on the above date and was hospitalized for further evaluation of their emergent condition. - New Patient This patient is new to me today: No - Critical Care Critical Care patient: No ATTENDING PHYSICIAN STATEMENT I saw and evaluated the patient. I reviewed the resident's note and discussed the case with the resident. I agree with the resident's findings and plan as documented. SUBJECTIVE: OBJECTIVE: ASSESSMENT AND PLAN:
[2019-11-07] MEDS: MONTELUKAST NA 10 MG TABLET PO SCH (21:38)
[2019-11-08] MEDS: traMADol HCL 50 MG TABLET PO PRN (05:10)
[2019-11-08] MEDS: FUROSEMIDE 40 MG TABLET (FP) PO SCH ×2 (05:13→13:57)
[2019-11-08] MEDS: DOCUSATE SODIUM 100 MG CAPSULE (FP) PO SCH ×2 (05:21→14:00)
[2019-11-08 06:44] LABS: BASO % 3.2 % (0-2.0); EOS % 3.8 % (0-4.5); HEMOGLOBIN 11.3 GM/dL (10.7-15.3); LYMPH % 31.3 % (8-40); MCH 25.6 pg (25.7-33.7); MCHC 31.3 g/dl (32.0-36.0); MEAN CELL VOLUME 81.9 fl (80-96); MEAN PLT VOLUME 9.3 fl (7.5-11.1); MONO % 10.6 % (3.8-10.2); NEUT % 51.1 % (42.8-82.8); PLATELET COUNT 348 K/MM3 (134-434); RDW 18.6 % (11.6-15.6); WHITE BLOOD COUNT 6.3 K/mm3 (4.0-10.0)
[2019-11-08] MEDS: INSULIN SLIDING SCALE (NOVOLOG) 1 VIAL SQ SCH ×3 (06:53→17:07)
[2019-11-08] MEDS ORDERED: INSULIN (LEVEMIR) 100 UNITS/ML UNITS SQ SCH (07:00)
[2019-11-08 07:17] LABS: BILIRUBIN,TOTAL 0.6 mg/dL (0.2-1); BLOOD UREA NITROGEN 29.9 mg/dL (7-18); CALCIUM 9.4 mg/dL (8.5-10.1); CREATININE 1.2 mg/dL (0.55-1.3); MAGNESIUM 1.1 mg/dL (1.8-2.4); PHOSPHOROUS 5.1 mg/dL (2.5-4.9); POTASSIUM 4.6 mmol/L (3.5-5.1); TOT PROT 6.7 g/dl (6.4-8.2)
[2019-11-08] MEDS ORDERED: MAGNESIUM SULF 50% (8.12 MEQ/2 ML-1 GM VIAL) IVPB ONE (08:53)
[2019-11-08] MEDS: PANTOPRAZOLE 40 MG TABLET PO SCH (09:45)
[2019-11-08] MEDS: DIGOXIN 0.25 MG TABLET (FP) PO SCH (09:45)
[2019-11-08] MEDS: metoPROLOL SUCCINATE 25 MG TAB.SR.24H (FP) PO SCH (09:45)
[2019-11-08] MEDS: SPIRONOLACTONE 25 MG TABLET PO SCH (09:45)
[2019-11-08] MEDS: COLLAGENASE CLOSTRIDIUM HIST. 30 GRAMS TUBE TP SCH (09:46)
[2019-11-08] MEDS ORDERED: PT OWN MED DRAWER 7, Y5N ONE (10:49)
--- NOTE | 2019-11-08 11:13 | PN ---
Progress Note (short form) - Note Progress Note: cc: sob s: edema resolved, no sob, palps, dizziness, cp Current Medications Generic Name Dose Route Start Last Admin Trade Name Santa PRN Reason Stop Dose Admin Cholecalciferol 50,000 unit 11/06/19 12:45 Vitamin D3 - PO WEEKLY [facility] Collagenase 1 applic 11/06/19 13:00 11/08/19 09:46 Santyl - TP 1 applic DAILY [facility] Administration Protocol Digoxin 0.125 mg 11/06/19 12:45 11/08/19 09:45 Lanoxin - PO 0.125 mg DAILY [facility] Administration Docusate Sodium 100 mg 11/06/19 14:00 11/08/19 05:21 Colace - PO Not Given TID [facility] Furosemide 60 mg 11/07/19 14:00 11/08/19 05:13 Lasix - PO 60 mg BID@0600,1400 [facility] Administration Insulin Aspart 1 vial 11/06/19 16:30 11/08/19 06:53 Novolog Vial Sliding Scale - SQ 6 units ACHS [facility] Administration Protocol Insulin Detemir 30 units 11/08/19 07:00 11/08/19 06:53 Levemir Vial SQ 30 units AM [facility] Administration Magnesium Sulfate 2 gm 11/08/19 11:15 Magnesium Sulf 2 G/50 Ml Bag IVPB 11/08/19 11:16 ONCE ONE Metoprolol Succinate 25 mg 11/06/19 13:00 11/08/19 09:45 Toprol Xl - PO 25 mg BID [facility] Administration Montelukast Sodium 10 mg 11/06/19 22:00 11/07/19 21:38 Singulair - PO 10 mg HS [facility] Administration Pantoprazole Sodium 40 mg 11/06/19 12:45 11/08/19 09:45 Protonix - PO 40 mg DAILY [facility] Administration Rivaroxaban 20 mg 11/06/19 18:00 11/07/19 17:12 Xarelto PO 20 mg DAILY@1800 [facility] Administration Sacubitril/Valsartan 1 tab 11/06/19 22:00 11/07/19 21:39 Entresto 24 Mg-26 Mg Tablet PO 1 tab BID [facility] Administration Spironolactone 25 mg 11/06/19 12:45 11/08/19 09:45 Aldactone - PO 25 mg BID [facility] Administration Tramadol HCl 50 mg 11/06/19 14:24 11/08/19 05:10 Ultram - PO 50 mg Q6H PRN Administration PAIN LEVEL 6-10 Vital Signs Period Temp Pulse Resp BP Sys/Khanna Pulse Ox Last 24 Hr 97.7 F-98.3 F 87-97 18-20 96-134/42-74 97-98 Constitutional: Yes: No Distress, Calm Eyes: Yes: Conjunctiva Clear, EOM Intact HENT: Yes: Atraumatic, Normocephalic Neck: Yes: Supple, Trachea Midline Respiratory: cta bl nl eff Gastrointestinal: Yes: Normal Bowel Sounds, Soft Cardiovascular: Yes: Tachycardia JVD: No Carotid Bruit: No PMI: Non-Displaced Heart Sounds: Yes: S1, S2 Musculoskeletal: No: Back Pain Extremities: Yes: Cool Edema: no Integumentary: No: Jaundice Neurological: Yes: Alert, Oriented Psychiatric: No: Agitated CBC, BMP 11/08/19 06:09 11/08/19 06:09 Laboratory Last Values WBC 6.3 K/mm3 (4.0-10.0) 11/08/19 06:09 RBC 4.40 M/mm3 (3.60-5.2) 11/08/19 06:09 Hgb 11.3 GM/dL (10.7-15.3) 11/08/19 06:09 Hct 36.0 % (32.4-45.2) 11/08/19 06:09 MCV 81.9 fl (80-96) 11/08/19 06:09 MCH 25.6 pg (25.7-33.7) L 11/08/19 06:09 MCHC 31.3 g/dl (32.0-36.0) L 11/08/19 06:09 RDW 18.6 % (11.6-15.6) H 11/08/19 06:09 Plt Count 348 K/MM3 (134-434) 11/08/19 06:09 MPV 9.3 fl (7.5-11.1) 11/08/19 06:09 Absolute Neuts (auto) 3.2 K/mm3 (1.5-8.0) 11/08/19 06:09 Neutrophils % 51.1 % (42.8-82.8) 11/08/19 06:09 Lymphocytes % 31.3 % (8-40) D 07/23/20 06:09 Monocytes % 10.6 % (3.8-10.2) H 11/08/19 06:09 Eosinophils % 3.8 % (0-4.5) 11/08/19 06:09 Basophils % 3.2 % (0-2.0) H 11/08/19 06:09 Nucleated RBC % 0 % (0-0) 11/08/19 06:09 PT with INR 44.40 SEC (9.7-13.0) H 11/06/19 05:50 INR 3.71 (0.83-1.09) H 11/06/19 05:50 PTT (Actin FS) 38.2 SECONDS (25.2-36.5) H 11/06/19 05:50 Sodium 133 mmol/L (136-145) L 11/08/19 06:09 Potassium 4.6 mmol/L (3.5-5.1) 11/08/19 06:09 Chloride 97 mmol/L (98-107) L 11/08/19 06:09 Carbon Dioxide 26 mmol/L (21-32) 11/08/19 06:09 Anion Gap 10 MMOL/L (8-16) 11/08/19 06:09 BUN 29.9 mg/dL (7-18) H 11/08/19 06:09 Creatinine 1.2 mg/dL (0.55-1.3) 11/08/19 06:09 Est GFR (CKD-EPI)AfAm 59.33 11/08/19 06:09 Est GFR (CKD-EPI)NonAf 51.19 11/08/19 06:09 POC Glucometer 299 UNITS (80-120) 11/08/19 05:15 Random Glucose 333 mg/dL (74-106) H 11/08/19 06:09 Calcium 9.4 mg/dL (8.5-10.1) 11/08/19 06:09 Phosphorus 5.1 mg/dL (2.5-4.9) H 11/08/19 06:09 Magnesium 1.1 mg/dL (1.8-2.4) L 11/08/19 06:09 Total Bilirubin 0.6 mg/dL (0.2-1) 11/08/19 06:09 AST 17 U/L (15-37) 11/08/19 06:09 ALT 24 U/L (13-61) 11/08/19 06:09 Alkaline Phosphatase 139 U/L (45-117) H 11/08/19 06:09 Creatine Kinase 97 U/L (26-192) 11/06/19 05:50 Troponin I 0.04 ng/ml (0.00-0.05) 11/06/19 05:50 B-Natriuretic Peptide 3779.4 pg/ml (5-125) H 11/06/19 05:50 Total Protein 6.7 g/dl (6.4-8.2) 11/08/19 06:09 Albumin 3.0 g/dl (3.4-5.0) L 11/08/19 06:09 Digoxin < 0.3 ng/ml (0.8-2.0) L 11/07/19 06:55 Opiates Screen Negative ng/ml (SINNAS=721) 11/06/19 23:00 Methadone Screen Negative ng/ml (WHDAHR=044) 11/06/19 23:00 Barbiturate Screen Negative ng/ml (JQLZQI=723) 11/06/19 23:00 Phencyclidine Screen Negative ng/ml (CUTOFF=25) 11/06/19 23:00 Ur Amphetamines Screen Negative ng/ml (FIOIEK=862) 11/06/19 23:00 MDMA (Ecstasy) Screen Negative ng/ml (FEBXWZ=692) 11/06/19 23:00 Benzodiazepines Screen Negative ng/ml (WOBRRZ=869) 11/06/19 23:00 Cocaine Screen Positive ng/ml (PEREFK=276) A* 11/06/19 23:00 U Marijuana (THC) Screen Negative ng/ml (CUTOFF=50) 11/06/19 23:00 COVID-19 ([place]IE) Not detected (Not Detected) 11/06/19 07:15 EKG: afib, [address]-T changes cxr: no congestion echo 10/2018 dilated LV, severe global hypokinesis, EF 15-20%, RV mildly reduced function, LA mod dilated, mild MAC, mild MR, mild TR, RVSP >40-50 mmHg echo 09/2019: lve, lvef 30-35, mild dec rv fcn, mild mr a/p: 53F h/o HTN, HLD, afib, chronic systolic HF, DM p/w sob acute on chronic systolic chf, NICM: -CHF exac likely in setting of afib with RVR, also utox +cocaine - edema resolved with iv lasix 40 bid, wt lower than prior discharge weight - change to lasix 60 po BID, home dose -Likely NICM due to chronic HTN, cocaine use -cont Entresto, Coreg, aldactone -pt had not followed up for ICD as planned in past and her cocaine use is a relative contraindication - -recent echo 09/2019 with stable chronic findings, lvef slightly improved AFib: - metoprolol succinate increased to 25 mg BID yesterday in office - monitor on tele, uptitrate bb as needed, cont digoxin - dig level ok -cont xarelto - refusing tele CAD, NSTEMI: -pt presented with NSTEMI in 2018 but subsequent cath showed single vessel disease, medically managed with cardiomyopathy out of proportion to degree of CAD -no signs ACS here -cont bb, ac. statin stopped previously due to elevated lfts. lower ext wound - manage per ID cardiac hurtado stable for dc
[2019-11-08] MEDS ORDERED: MAGNESIUM 2GM/50ML STERILE WATER IVPB IVPB ONE (11:15)
--- NOTE | 2019-11-08 11:17 | PN ---
Progress Note, Physician History of Present Illness: stable no new issues - Current Medication List Current Medications: Active Medications Cholecalciferol (Vitamin D3 -) 50,000 unit PO WEEKLY [facility] Collagenase (Santyl -) 1 applic TP DAILY [facility]; Protocol Last Admin: 11/08/19 09:46 Dose: 1 applic Documented by: Digoxin (Lanoxin -) 0.125 mg PO DAILY [facility] Last Admin: 11/08/19 09:45 Dose: 0.125 mg Documented by: Docusate Sodium (Colace -) 100 mg PO TID [facility] Last Admin: 11/08/19 05:21 Dose: Not Given Documented by: Furosemide (Lasix -) 60 mg PO BID@0600,1400 [facility] Last Admin: 11/08/19 05:13 Dose: 60 mg Documented by: Insulin Aspart (Novolog Vial Sliding Scale -) 1 vial SQ ACHS [facility]; Protocol Last Admin: 11/08/19 06:53 Dose: 6 units Documented by: Insulin Detemir (Levemir Vial) 30 units SQ AM [facility] Last Admin: 11/08/19 06:53 Dose: 30 units Documented by: Metoprolol Succinate (Toprol Xl -) 25 mg PO BID [facility] Last Admin: 11/08/19 09:45 Dose: 25 mg Documented by: Montelukast Sodium (Singulair -) 10 mg PO HS [facility] Last Admin: 11/07/19 21:38 Dose: 10 mg Documented by: Pantoprazole Sodium (Protonix -) 40 mg PO DAILY [facility] Last Admin: 11/08/19 09:45 Dose: 40 mg Documented by: Rivaroxaban (Xarelto) 20 mg PO DAILY@1800 [facility] Last Admin: 11/07/19 17:12 Dose: 20 mg Documented by: Sacubitril/Valsartan (Entresto 24 Mg-26 Mg Tablet) 1 tab PO BID [facility] Last Admin: 11/07/19 21:39 Dose: 1 tab Documented by: Spironolactone (Aldactone -) 25 mg PO BID [facility] Last Admin: 11/08/19 09:45 Dose: 25 mg Documented by: Tramadol HCl (Ultram -) 50 mg PO Q6H PRN PRN Reason: PAIN LEVEL 6-10 Last Admin: 11/08/19 05:10 Dose: 50 mg Documented by: - Objective Vital Signs: Vital Signs Temperature 97.8 F 11/08/19 05:17 Pulse Rate 91 H 11/08/19 09:45 Respiratory Rate 18 11/08/19 09:00 Blood Pressure 104/71 11/08/19 05:17 O2 Sat by Pulse Oximetry (%) 97 11/08/19 09:00 Constitutional: Yes: No Distress, Calm Cardiovascular: Yes: S1, S2 Respiratory: Yes: Regular, CTA Bilaterally Gastrointestinal: Yes: Normal Bowel Sounds, Soft Musculoskeletal: Yes: WNL Extremities: Yes: WNL Wound/Incision: Yes: Dressing Dry and Intact, Other Neurological: Yes: Alert, Oriented Psychiatric: Yes: Alert, Oriented Labs: CBC, BMP 11/08/19 06:09 11/08/19 06:09 INR, PTT INR 3.71 (0.83-1.09) H 11/06/19 05:50 Assessment/Plan 54 year old woman with MHx of Afib (on Xarelto), HFrEF (LVEF 15-20%), 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
[2019-11-08] MEDS: SACUBITRIL/VALSARTAN 24 MG-26 MG TABLET PO SCH (12:00)
--- NOTE | 2019-11-08 15:48 | PN ---
Teaching Attending Note Name of Resident: Anatoliy Aldana ATTENDING PHYSICIAN STATEMENT I saw and evaluated the patient. I reviewed the resident's note and discussed the case with the resident. I agree with the resident's findings and plan as documented. SUBJECTIVE: no fever or chills. no SOB. no BROCK OBJECTIVE: OBJECTIVE: NAD, awake. CV: RRR, no MRG. No JVD Lungs: CTAB Ext: No edema on legs . L leg ulcer on medial aspect with slough , no surrounding erythema .No surrounding tenderness ASSESSMENT AND PLAN: 53 y/o lady with h/o chronic systolic heart failure, IDDM, asthma, obesity, hypertension, Afib, aspergillosis, , cocaine usage,, NSTEMI, , chronic lower extremity wounds (followed by Dr. Will), nicotine abuse, and recent hospitalization fro CHF and infected wound who presented with SOB. She was diagnosed with acute CHF exacerbation 1- Acute on chronic diastolic CHF exacerbation : improved - switch to po lasix 60 BID - cont Entresto and coreg 2- A fib with RVR: - cont dig and metorpolol ( off coreg as out pt ) - cont xarelto 3- DM: levemir and SSI 4- L leg wound - dry clean dressing daily 5- H/o CAD: cont BB . not on plavix or statin as out pt dc home today . f/u with card as out pt and wound care center
[2019-11-08] MEDS: RIVAROXABAN 20 MG TABLET PO SCH (17:07)
[2019-11-08 18:02] VITALS: BP 115/80; PULSE 84; TEMP 98.8
--- NOTE | 2019-11-08 20:42 | DS ---
Physical Exam: SUBJECTIVE: No overnight events. Patient seen and examined. Denies SOB, CP and pain of her posterior calf wound. OBJECTIVE: Vital Signs Period Temp Pulse Resp BP Sys/Khanna Pulse Ox Last 24 Hr 97.5 F-98.8 F 82-96 18-20 92-115/55-80 97-100 PHYSICAL EXAM GENERAL: The patient is awake, alert, and fully oriented, in no acute distress. HEENT: NT, NC. No ptosis. MMM LUNGS: Breath sounds equal, clear to auscultation bilaterally, no wheezes, no crackles, no accessory muscle use. HEART: Regular rate and rhythm, S1, S2 without murmur, rub or gallop. ABDOMEN: Soft, nontender, nondistended, normoactive bowel sounds, no guarding, no rebound EXTREMITIES: 2+ pulses, warm, well-perfused, minimal non-pitting edema. L posterior calf wound is non-erythematous, non-TTP, no fluctuance; no discharge; sloughing. NEUROLOGICAL: Normal speech, gait not observed. PSYCH: Normal mood, normal affect. SKIN: Warm, dry, normal turgor, no rashes or lesions noted LABS Laboratory Results - last 24 hr 11/08/19 11/08/19 11/08/19 05:15 06:09 06:09 WBC 6.3 RBC 4.40 Hgb 11.3 Hct 36.0 MCV 81.9 MCH 25.6 L MCHC 31.3 L RDW 18.6 H Plt Count 348 MPV 9.3 Absolute Neuts (auto) 3.2 Neutrophils % 51.1 Lymphocytes % 31.3 D Monocytes % 10.6 H Eosinophils % 3.8 Basophils % 3.2 H Nucleated RBC % 0 Sodium 133 L Potassium 4.6 Chloride 97 L Carbon Dioxide 26 Anion Gap 10 BUN 29.9 H Creatinine 1.2 Est GFR (CKD-EPI)AfAm 59.33 Est GFR (CKD-EPI)NonAf 51.19 POC Glucometer 299 Random Glucose 333 H Calcium 9.4 Phosphorus 5.1 H Magnesium 1.1 L Total Bilirubin 0.6 AST 17 ALT 24 Alkaline Phosphatase 139 H Total Protein 6.7 Albumin 3.0 L HOSPITAL COURSE: 53F PMH HTN, systolic CHF (EF 30-35%), cocaine use, cocaine induced [place] 09/2018, h/o aspergillosis, asthma, obesity, IDDM, Afib (Xarelto), chronic LE wounds (followed by Dr. Will p/w worsening SOB, LE edema, and subjective weight gain. Admitted for acute on Chronic systolic CHF. EKG showed the patient to have Afib w/ RVR. She was given furosemide at 60 mg. She was given her home rx of spironolactone 25 BID, Digoxin 0.125, metoprolol succinate(Toprol XL) 25 BID, Entresto (sacubitril/valasarta 24mg/26mg)BID. Pt's breathing improved. Utox was positive for cocaine. Pt was advised to discontinue cocaine use as it could worsen her heart condition. As per cardio, pt did not f/u for ICD; cocaine also a relative contraindication. Left posterior leg ulcer was debrided and treated with IV entrapenem on her last admission. Pt was seen by ID and no abx were recommended. Pt was advised to apply sterile/dry dressing daily. Date of Admission:11/06/19 Date of Discharge: 11/08/19 Minutes to complete discharge: 48 Discharge Summary Problems reviewed: Yes Reason For Visit: ACUTE ON CHRONIC CHF Condition: Improved - Instructions Diet, Activity, Other Instructions: YOUR VISIT You came to the hospital because were having trouble breathing and your legs were swollen due to heart failure exacerbation . You were given some diuretics to help. Continue to take as prescribed. For the wounds on your legs-apply the Santyl cream and follow up at the wound care clinic. Please use clean and dry dressing for your wound. MEDICATIONS Please continue to take lasix 60 mg twice a day. Please continue to take your Toprol 25 mg twice a day. Please do NOT take Coreg- as already discussed by your chip frier. Please continue your additional medications as prescribed. please continue to use your insulin as prescribed- 18 Units of novolog at lunch and dinner; Glargine 38 units before bedtime. Please continue to monitor your blood sugars and record a log for your primary care physician to adjust your dosage as needed. ADDITIONAL CARE Please make an appointment to see your primary care provider, [address] Jones office to make an appointment in 2 weeks. You may need to further adjust your medications. Please follow up with Dr. Will, your wound care physician regarding your wound ADDITIONAL INFORMATION Please call 911 or come directly to the emergency department if you experience unusual headache, vision change, shortness of breath, chest pain, numbness, tingling, loss of alertness/awareness, loss of function, unusual bleeding or any alarming symptoms. Please refrain from using cocaine or drugs as this is very bad for your heart please continue to follow a low sodium, low fat diet IMportant : because you received insulin this morning: tonight do not take any insulin. take 15 units of lantus tomorrow morning, and then 18 units tomorrow evening at bed time , and on Staurday , please start taking your 38 units in evening . theses changed are to avoid low sugars. just for tomorrow Referrals: Carols Oconnell MD [Staff Physician] - 2 Weeks Fili Espinoza MD [Primary Care Provider] - 1 Week Pablo Will DO [Staff Physician] - 1 Month Disposition: HOME - Home Medications Comprehensive Discharge Medication List: Ambulatory Orders Loratadine 10 mg PO DAILY PRN 06/30/19 Cholecalciferol (Vitamin D3) [Vitamin D3 -] 50,000 unit PO WEEKLY 09/16/19 Fluticasone Propion/Salmeterol [Wixela 500-50 Inhub] 1 inhaler IN BID 09/16/19 Insulin Glargine,Hum.rec.anlog [Basaglar Kwikpen U-100] 38 unit SQ HS 09/16/19 Collagenase Clostridium Hist. [Santyl -] 1 applic TP DAILY #1 tube 10/17/19 Docusate Sodium [Colace -] 100 mg PO TID #90 capsule 10/17/19 Montelukast Sodium [Singulair] 10 mg PO HS #30 tablet 10/17/19 Pantoprazole Sodium [Protonix -] 40 mg PO DAILY #30 tab 10/17/19 Rivaroxaban [Xarelto -] 20 mg PO DAILY #30 tablet 10/17/19 Sacubitril/Valsartan [Entresto 24 mg-26 mg Tablet] 1 tab PO BID #60 tablet 10/17/19 Spironolactone [Aldactone -] 25 mg PO BID #60 tablet 10/17/19 Furosemide [Lasix -] 60 mg PO BID@0600,1400 10/27/19 Metoprolol Succinate [Toprol Xl] 25 mg PO BID 11/06/19 Digoxin [Lanoxin -] 0.125 mg PO DAILY #30 tablet 11/08/19 Insulin Sliding Scale [Novolog Vial Sliding Scale -] 18 unit SQ ASDIR 11/08/19 Liraglutide [Victoza -] 1.2 mg SQ DAILY 11/08/19 This patient is new to me today: No Emergency Visit: Yes ED Registration Date: 11/06/19 Care time: The patient presented to the Emergency Department on the above date and was hospitalized for further evaluation of their emergent condition. Critical Care patient: No - Discharge Referral Referred to [facility] Med P.C.: No ATTENDING PHYSICIAN STATEMENT I saw and evaluated the patient. I reviewed the resident's note and discussed the case with the resident. I agree with the resident's findings and plan as documented. SUBJECTIVE: OBJECTIVE: ASSESSMENT AND PLAN:
== END 2019-11-08 19:05 | disposition home or self-care (01) ==
LOC: JER 05:12 → SUPCPDRO 05:12 → JERBED 06:16 → INTOOBSV 06:16 → J4S 22:31
PROVIDERS: ADMIT Internal Medicine; ATTEND Internal Medicine
PROC: 3E013VG Introduction of Insulin into Subcutaneous Tissue, Percutaneous Approach (ICD-10-PCS; principal; 2019-11-06)
PROC: 3E033VG Introduction of Insulin into Peripheral Vein, Percutaneous Approach (ICD-10-PCS; 2019-11-06)
PROC: 3E033GC Introduction of Other Therapeutic Substance into Peripheral Vein, Percutaneous Approach (ICD-10-PCS; 2019-11-06)
DX: I11.0 Hypertensive heart disease with heart failure (principal); I50.33 Acute on chronic diastolic (congestive) heart failure; R06.00 Dyspnea, unspecified; I48.91 Unspecified atrial fibrillation; J45.909 Unspecified asthma, uncomplicated; E66.8 Other obesity; Z68.36 Body mass index [BMI] 36.0-36.9, adult; B44.9 Aspergillosis, unspecified; F14.90 Cocaine use, unspecified, uncomplicated; I25.10 Atherosclerotic heart disease of native coronary artery without angina pectoris; L08.9 Local infection of the skin and subcutaneous tissue, unspecified; I25.2 Old myocardial infarction; R05 Cough; Z79.01 Long term (current) use of anticoagulants; Z88.8 Allergy status to other drugs, medicaments and biological substances
CPT/HCPCS: 36415; 71045-TC-FY; 80053; 80162; 80307; 82550; 82962; 83735; 83880; 84100; 84484; 85025; 85610; 85730; 93005; 93010; 96372; 96374; 96375; 99285-25; G0378; U0003

== ENCOUNTER 2019-11-23 19:07 | Inpatient (IN) | payer OTHER ==
--- NOTE | 2019-11-23 19:38 | PDOC ---
History of Present Illness - General Chief Complaint: Shortness of Breath Stated Complaint: DIFFICULTY BREATHING Time Seen by Provider: 11/23/19 19:31 History Source: Patient Exam Limitations: No Limitations - History of Present Illness Initial Comments: 11/23/19 19:37 Marci Orr is a 54F with PMH AFIB on Xarelto, HTN, HLD, asthma, poorly controlled IDDM, systolic CHF s/p admission for exacerbation and AMA, cocaine- induced [place], BLE edema/wound, smoker, presenting with SOB. Patient recently admitted to [facility] for CHF exacerbation, says she was given Lasix. Per chart review left AMA. Last 3 days has been having severe SOB and palpitations with feeling like she is retaining water, only able to walk a few feet before feeling SOB, denies chest pain. Feels same as her prior CHF exacerbation. Has history of asthma, has been using nebulizer more often, used once today and given once by EMS. Tolerating PO, one episode of vomiting after eating a Whopper yesterday. Denies fever, productive cough, abdominal pain, urinary symptoms. Denies covid-19 or covid symptoms, was admitted at [facility] a few weeks ago. Smokes 8 cigarettes per day, has not smoked in 3 days 2/2 SOB. No recent alcohol use. Cocaine use nasally last weekend. Past History - Medical History Allergies/Adverse Reactions: Allergies Allergy/AdvReac Type Severity Reaction Status Date / Time amoxicillin trihydrate Allergy Intermediate Swelling Verified 11/23/19 19:15 [From Augmentin] potassium clavulanate Allergy Intermediate Swelling Verified 11/23/19 19:15 [From Augmentin] amoxicillin Allergy Verified 11/23/19 19:15 Home Medications: Ambulatory Orders Loratadine 10 mg PO DAILY PRN 06/30/19 Cholecalciferol (Vitamin D3) [Vitamin D3 -] 50,000 unit PO WEEKLY 09/16/19 Fluticasone Propion/Salmeterol [Wixela 500-50 Inhub] 1 inhaler IN BID 09/16/19 Insulin Glargine,Hum.rec.anlog [Basaglar Kwikpen U-100] 38 unit SQ HS 09/16/19 Collagenase Clostridium Hist. [Santyl -] 1 applic TP DAILY #1 tube 10/17/19 Docusate Sodium [Colace -] 100 mg PO TID #90 capsule 10/17/19 Montelukast Sodium [Singulair] 10 mg PO HS #30 tablet 10/17/19 Pantoprazole Sodium [Protonix -] 40 mg PO DAILY #30 tab 10/17/19 Rivaroxaban [Xarelto -] 20 mg PO DAILY #30 tablet 10/17/19 Sacubitril/Valsartan [Entresto 24 mg-26 mg Tablet] 1 tab PO BID #60 tablet 10/17/19 Spironolactone [Aldactone -] 25 mg PO BID #60 tablet 10/17/19 Furosemide [Lasix -] 60 mg PO BID@0600,1400 10/27/19 Metoprolol Succinate [Toprol Xl] 25 mg PO BID 11/06/19 Digoxin [Lanoxin -] 0.125 mg PO DAILY #30 tablet 11/08/19 Insulin Sliding Scale [Novolog Vial Sliding Scale -] 18 unit SQ ASDIR 11/08/19 Liraglutide [Victoza -] 1.2 mg SQ DAILY 11/08/19 Asthma: Yes Cancer: No Cardiac Disorders: Yes (reduced ejection fraction of 23%, [place] 2018) CVA: No COPD: Yes CHF: Yes (with pulmonary HTN) Diabetes: Yes Disorders: No HTN: Yes Hypercholesterolemia: Yes Liver Disease: No Psychiatric Problems: Yes (bipolar) Seizures: No Thyroid Disease: No - Surgical History Cardiac Surgery: No Cholecystectomy: Yes Neurologic Surgery: No Orthopedic Surgery: Yes (left knee replacemet - 1996) - Reproductive History Is Patient Now?: No - Immunization History Immunization Up to Date: Yes - Psycho-Social/Smoking History Smoking Status: No Smoking History: Never smoked Have you smoked in the past 12 months: No Number of Cigarettes Smoked Daily: 10 If you are a former smoker, when did you quit?: 2019 Information on smoking cessation initiated: No 'Breaking Loose' booklet given: 11/06/19 - Substance Abuse Hx (Audit-C & DAST Scrn) How often the patient has a drink containing alcohol: Never Score: In Men: 4 or > Positive; In Women: 3 or > Positive: 0 Screen Result (Pos requires Nsg. Audit-10AR): Negative In the last yr the pt used illegal drug/Rx for NonMed reason: No Score: Yes response is considered Positive: 0 Screen Result (Positive result requires Nsg. DAST-10): Negative Review of Systems - Review of Systems Able to Perform ROS?: Yes *Physical Exam - Vital Signs Last Vital Signs Temp Pulse Resp BP Pulse Ox 98.6 F 82 18 141/84 98 11/23/19 19:15 11/23/19 19:15 11/23/19 19:15 11/23/19 19:15 11/23/19 19:15 ED Treatment Course - LABORATORY CBC & Chemistry Diagram: 11/23/19 21:50 11/23/19 21:50 Medical Decision Making - Medical Decision Making 11/23/19 20:46 Patient has a known history of CHF, [place], asthma/COPD, here for SOB and palpitati ons similar to prior CHF exacerbation which she AMA'd from [facility] last month. Already got nebs in ambulance and at home, no wheezing now, but crackles and evidence of overload on exam. Evaluating for CHF vs. asthma exacerbation vs. PNA vs. covid. Lower suspicion of PE given no hypoxia. LLE wound appears clean, no systemic symptoms, lower concern for this at this time. Ordering CMP/CBC/CP/ECG/CXR/BNP/UA/UTOX for broad evaluation. Patient placed on registered nurse cardiac telemetry, shows AFIB with HR 80s. Labs notable for: - CMP WNL - INR 4.5, unclear reason why, on Xarelto and not on Warfarin - CMP WNL - BNP 4315 CXR shows slightly more pulmonary edema and congestion than prior. Patient resting comfortably in chair with O2sat 100% on RA. Giving 40mg IV Lasix for CHF. No indication for nitro at this time. Stable for admission for CHF exacerbation to [facility]. 11/24/19 00:16 Patient refused ECG, but accepts now. ECG shows AFIB with PVCs, HR 86, QTc 437, no IRINA/D or TWI. Threatened to leave if not given food PO, discussed with patient risk of from fluid overload. Giving patient sodium-controlled diet with restricted fluids. Pending admitting team callback. 11/24/19 01:[address] Ellis. Discharge - Discharge Information Problems reviewed: Yes Clinical Impression/Diagnosis: Heart failure, systolic, with acute decompensation COPD (chronic obstructive pulmonary disease) Qualifiers: COPD type: unspecified COPD Qualified Code(s): J44.9 - Chronic obstructive pulmonary disease, unspecified Condition: Guarded - Admission Yes - Follow up/Referral Referrals: Fili Espinoza MD [Primary Care Provider] - - Patient Discharge Instructions - Post Discharge Activity
--- NOTE | 2019-11-23 20:51 | PDOC ---
Documentation entered by Kim Bhatia SCRIBE, acting as scribe for Arian Slade MD. Arian Slade MD: This documentation has been prepared by the Jannette grullon Xhesika, SCRIBE, under my direction and personally reviewed by me in its entirety. I confirm that the documentation accurately reflects all work, treatment, procedures, and medical decision making performed by me. Attending Attestation - Resident Resident Name: Yogesh Presley - ED Attending Attestation I have performed the following: I have examined & evaluated the patient, The case was reviewed & discussed with the resident, I agree w/resident's findings & plan, Exceptions are as noted - HPI HPI: 11/23/19 19:39 The patient is a 53 year old female with a significant past medical history of IDDM, asthma, obesity, hypertension, Afib (on Xarelto), history of aspergillosis, systolic CHF (EF 30-35%), cocaine usage (per EMR), [place]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 Will), recent CHF admission (10/2019), who presents to the emergency department BIBA for shortness of breath. Pt states she can't walk more than 3 steps without feeling SOB. Pt states she feels like shes retaining water and is endorsing chest pain. Pt states she last used cocaine last weekend. En-route to the ED, EMS gave her a nebulizer, with some improvement of symptoms. Allergies: Amoxicillin trihydrate, potassium clavulanate, amoxicillin Primary Care Physician: Dr. Espinoza - Physicial Exam PE: 11/23/19 20:51 See resident exam - Medical Decision Making 11/23/19 20:52 54 F with SOB, FERRER. Likely CHF exacerbation. Pt with no wheezing on exam. - Labs - CXR - Diurese Discharge - Discharge Information Problems reviewed: Yes Clinical Impression/Diagnosis: Heart failure, systolic, with acute decompensation, CHF exacerbation, Shortness of breath at rest, FERRER (dyspnea on exertion) COPD (chronic obstructive pulmonary disease) Qualifiers: COPD type: unspecified COPD Qualified Code(s): J44.9 - Chronic obstructive pulmonary disease, unspecified Condition: Guarded - Follow up/Referral - Patient Discharge Instructions - Post Discharge Activity
[2019-11-23 22:18] LABS: BASO % 2.1 % (0-2.0); EOS % 1.5 % (0-4.5); HEMOGLOBIN 10.5 GM/dL (10.7-15.3); LYMPH % 22.5 % (8-40); MCH 25.5 pg (25.7-33.7); MCHC 30.8 g/dl (32.0-36.0); MEAN CELL VOLUME 82.8 fl (80-96); MEAN PLT VOLUME 9.4 fl (7.5-11.1); MONO % 7.3 % (3.8-10.2); NEUT % 66.6 % (42.8-82.8); PLATELET COUNT 264 K/MM3 (134-434); RDW 19.8 % (11.6-15.6); WHITE BLOOD COUNT 6.2 K/mm3 (4.0-10.0)
[2019-11-23 22:21] LABS: VENOUS BASE EXCESS -1.8 mmol/L (-2-2); VENOUS O2 SATURATION 54.1 % (70-80); VENOUS PH 7.38 (7.310-7.410)
[2019-11-23 22:26] LABS: PROTHROMBIN TIME (PATIENT) 54.9 SEC (9.7-13.0)
[2019-11-23 22:29] LABS: ACTIVATED PTT 44.1 SECONDS (25.2-36.5)
[2019-11-23 22:48] LABS: ALBUMIN 3.5 g/dl (3.4-5.0); BILIRUBIN,TOTAL 1.4 mg/dL (0.2-1); CALCIUM 9.6 mg/dL (8.5-10.1); CREATININE 1.2 mg/dL (0.55-1.3); TOT PROT 7.6 g/dl (6.4-8.2)
[2019-11-23 22:49] LABS: N-TERMINAL BNP 4135.6 pg/ml (5-125)
[2019-11-23 22:55] LABS: INR 4.58 (0.83-1.09)
[2019-11-23] MEDS ORDERED: FUROSEMIDE 40 MG/4 ML INJECTABLE VIAL IVPUSH ONE (23:28)
[2019-11-23] MEDS ORDERED: FUROSEMIDE 40 MG/4 ML INJECTABLE VIAL ONE (23:32)
--- NOTE | 2019-11-23 23:35 | PN ---
Teaching Attending Note Name of Resident: Glenn Rivera ATTENDING PHYSICIAN STATEMENT I saw and evaluated the patient. I reviewed the resident's note and discussed the case with the resident. I agree with the resident's findings and plan as documented. SUBJECTIVE: Patient is a 54 year old woman with PMH Afib (on Xarelto0, Bipolar disorder, Left knee replacement, HTN, HLD, Asthma, Insulin-treated DM, HFrEF (LVEF 15- 20%), Cocaine-induced FL, BLE edema/wound, Tobacco use and multiple admissions for "CHF exacerbation" presenting with SOB. Last 3 days has been having severe SOB and palpitations with feeling like she is retaining water, only able to walk a few feet before feeling SOB. Denies chest pain. Feels same as her prior CHF exacerbation. Vomited once yesterday. Has history of asthma, has been using nebulizer more often, used once today and given once by EMS. This is her 8th admission to our hospital fro "CHF exacerbation" since 06/04/2019. She signed out AMA during her most recent admission last month. No recent alcohol use. Cocaine use nasally last weekend. Says she has mold and roaches in her apartment. Tested negative for COVID-19 four times at [facility] in the past 2 months. Patient denies chest pain, abdominal pain, headache, palpitations, dizziness, fever, chills, nausea, diarrhea, constipation, dysuria, frequency, urgency, melena, hematochezia or hematuria. No sick contacts or recent travels. Patient has a family history of DM, heart disease, asthma, alcohol abuse and unspecified GI cancer. OBJECTIVE: Alert Vital Signs Period Temp Pulse Resp BP Sys/Khanna Pulse Ox Last 24 Hr 98.6 F 82-90 18-20 141-147/84-84 98-100 HEENT: No Jaundice, eye redness or discharge, PERRLA, EOMI. Normocephalic, a traumatic. External ears are normal and hearing is grossly intact. No nasal discharge. Neck: Supple, nontender. No palpable adenopathy or thyromegaly. No JVD Chest: Good effort. Bibasilar crackles. Clear to percussion. Heart: Irregularly irregular. No S3, rub or murmur Abdomen: Not distended, soft, nontender and no HSM. No rebound or guarding. Normal bowel sounds. Ext: Peripheral pulses intact. Leg edema. Skin: Warm and dry. No petechiae, rash or ecchymosis. Neuro: Alert. Oriented x3. CN 2-12 grossly intact. Sensation grossly intact in all four extremities and DTR are symmetric. Psych: Appropriate mood and affect. Good insight. Home Medications Medication Instructions Recorded Loratadine 10 mg PO DAILY PRN 06/30/19 Cholecalciferol (Vitamin D3) 50,000 unit PO WEEKLY 09/16/19 [Vitamin D3 -] Fluticasone Propion/Salmeterol 1 inhaler IN BID 09/16/19 [Wixela 500-50 Inhub] Insulin Glargine,Hum.rec.anlog 38 unit SQ HS 09/16/19 [Basaglar Kwikpen U-100] Collagenase Clostridium Hist. 1 applic TP DAILY #1 tube 10/17/19 [Santyl -] Docusate Sodium [Colace -] 100 mg PO TID #90 capsule 10/17/19 Montelukast Sodium [Singulair] 10 mg PO HS #30 tablet 10/17/19 Pantoprazole Sodium [Protonix -] 40 mg PO DAILY #30 tab 10/17/19 Rivaroxaban [Xarelto -] 20 mg PO DAILY #30 tablet 10/17/19 Sacubitril/Valsartan [Entresto 24 1 tab PO BID #60 tablet 10/17/19 mg-26 mg Tablet] Spironolactone [Aldactone -] 25 mg PO BID #60 tablet 10/17/19 Furosemide [Lasix -] 60 mg PO BID@0600,1400 10/27/19 Metoprolol Succinate [Toprol Xl] 25 mg PO BID 11/06/19 Digoxin [Lanoxin -] 0.125 mg PO DAILY #30 tablet 11/08/19 Insulin Sliding Scale [Novolog 18 unit SQ ASDIR 11/08/19 Vial Sliding Scale -] Liraglutide [Victoza -] 1.2 mg SQ DAILY 11/08/19 Abnormal Lab Results 11/23/19 11/23/19 11/23/19 21:50 21:50 21:50 Hgb 10.5 L MCH 25.5 L MCHC 30.8 L RDW 19.8 H Basophils % 2.1 H PT with INR 54.90 H INR 4.58 H* PTT (Actin FS) 44.1 H VBG O2 Sat (Catracho) BUN Random Glucose Total Bilirubin Alkaline Phosphatase B-Natriuretic Peptide 4135.6 H 11/23/19 11/23/19 21:50 21:50 Hgb MCH MCHC RDW Basophils % PT with INR INR PTT (Actin FS) VBG O2 Sat (Catracho) 54.1 L BUN 23.0 H Random Glucose 300 H Total Bilirubin 1.4 H Alkaline Phosphatase 192 H B-Natriuretic Peptide Current Medications Generic Name Dose Route Start Last Admin Trade Name Freq PRN Reason Stop Dose Admin Digoxin 0.125 mg 11/24/19 10:00 Lanoxin - PO DAILY [facility] Furosemide 60 mg 11/24/19 06:00 Lasix - PO BID@0600,1400 [facility] Insulin Aspart 1 vial 11/24/19 07:00 Novolog Vial Sliding Scale - SQ ACHS [facility] Protocol Loratadine 10 mg 11/24/19 02:19 Claritin - PO DAILY PRN ALLERGIES Metoprolol Succinate 25 mg 11/24/19 10:00 Toprol Xl - PO BID [facility] Montelukast Sodium 10 mg 11/24/19 22:00 Singulair - PO HS [facility] Pantoprazole Sodium 40 mg 11/24/19 10:00 Protonix - PO DAILY [facility] Rivaroxaban 20 mg 11/24/19 10:00 Xarelto PO DAILY [facility] Sacubitril/Valsartan 1 tab 11/24/19 10:00 Entresto 24 Mg-26 Mg Tablet PO BID [facility] Spironolactone 25 mg 11/24/19 10:00 Aldactone - PO BID [facility] ASSESSMENT AND PLAN: 1. CHF exacerbation/Asthma exacerbation - CXR shows cardiomegaly with no evidence of acute lung disease. Got IV Lasix 40 mg in the ER. ECHO from 11/06/2019 showed severe global hypokinesis and LVEF of 15-20%. EKG shows Afib at 86/minute, PVCs and QTc [address] depression in V5-V6 - not significantly changed compared to old EKG. Initial troponin is negative. INR is elevated - patient is on Xarelto - will monitor daily, do stool guaiacs daily and stop Xarelto for any acute bleeding. Her documented weight of 72.57 kg today is l ikely incorrect since her weight on 11/08/2019 was 104.8 kg. Viral testing for COVID-19 ordered and patient placed on airborne, droplet and contact isolation. Started on supplemental oxygen via nasal cannula. Will treat with IV Lasix to achieve adequate diuresis, restrict dietary salt intake, monitor renal function, monitor and replete electrolytes, get daily weight and consult Cardiology. Will give Duoneb PRN, continue Singulair and monitor peak flow. Consult Pulmonary - how much of these reversible bouts of SOB is primarily due to her Asthma?. Will continue comprehensive care for all of patients comorbid conditions. 2. DM For now, we will hold the home diabetes drugs and implement sliding scale insulin regimen. Provide comprehensive diabetes care with patient teaching and counseling about the importance of adherence to prescribed diabetes regimen, euglycemia, eye care and foot care. 3. Tobacco Use Counseled on risks associated with tobacco use. We will provide patient all the necessary assistance to facilitate smoking cessation and prescribe Nicotine patch. 4. Obesity Counseled on the risks associated with obesity. Will provide patient all the necessary assistance, counseling and positive reinforcement to facilitate weight loss. Consult appeals referee. 5. Hypertension Will restart suitable outpatient antihypertensive drugs when clinically appropriate. Subsequently, will revise regimen to ensure [id number] excellent BP control. Patient counseled on the injurious effects of uncontrolled hypertension. Nonpharmacologic measures to control hypertension like weight loss, salt restriction and exercise stressed. Importance of adherence to treatment regimen and attainment of normotension emphasized. 6. DVT prophylaxis - On Xarelto for Afib. 7. Advance directives - Full code
--- NOTE | 2019-11-24 02:10 | HP ---
CHIEF COMPLAINT: shortness of breath PCP: HISTORY OF PRESENT ILLNESS: Patient is a 54 year odl female with history of HFrEf (EF 30-35%), Afib (on Xarelto), diabetes mellitus (insulin dependent). hypertension, hyperlipidemia, asthma, cocaine use disorder with conmoninant NSTEMI, chronic left lower extremity wound presents with complaint of shortness of breath. Patient states that for past three days patient has been unable to walk more than a few feet without significant dyspnea. Patient was recently discharged 11/07 for evaluation of similar symptoms, and was treated for CHF exacerbation. Patient has had numerous prior admissions this year for similar complaints. Upon my enco utner, patient admits that she has only been taking Furosemide 60mg once daily (she was prescribed twice daily upon her last discharge). She admits that she became confused regarding which medications to take and at what time which led to nonadherence of her regimen. She admits six pillow orthopnea (usually sleeps with 4-5 pillows). Admits to using her Albuterol inhaler twice yesterday, in addition to three nebulizer treatments with minimal improvement of her symptoms. Patient states her weight two days ago was 226lb. She denies sick contacts, subjective fevers, chills, chest pain, palpitations, abdominal pain, nausea, vomiting, any bleeding, melena, hematochezia, hemoptysis, or hematuria. ER course was notable for: (1) Lasix 40mg IV (2) (3) Recent Travel: denies PAST MEDICAL HISTORY: HFrEf (EF 30-35%), Afib (on Xarelto), diabetes mellitus (insulin dependent). hypertension, hyperlipidemia, asthma, cocaine use disorder with conmoninant NSTEMI, chronic left lower extremity wound PAST SURGICAL HISTORY: left knee surgery, cholecystectomy, fibroid surgery Family History -Mother: diabetes mellitus, unknown cancer (patient states ?cancer runs in the family, however she is unable to specify). Believes ther may also be a gastrointestinal cancer in the family. -Father: states he passed due to sequelae of alcohol consumption. Social History: At baseline, ambulates with walker. Can walk approx 100 feet. Independent in activities of daily living. Smokin cigarettes daily (however endorses smoking 1 pack per day for past 15 years) Alcohol:: denies Drugs: admits to cocaine (inhaled)- last used one 'dime' a week ago. Allergies amoxicillin trihydrate [From Augmentin] Allergy (Intermediate, Verified 11/23/19 19:15) Swelling potassium clavulanate [From Augmentin] Allergy (Intermediate, Verified 11/23/19 19:15) Swelling amoxicillin Allergy (Verified 11/23/19 19:15) HOME MEDICATIONS: Home Medications Medication Instructions Recorded Loratadine 10 mg PO DAILY PRN 06/30/19 Cholecalciferol (Vitamin D3) 50,000 unit PO WEEKLY 09/16/19 [Vitamin D3 -] Fluticasone Propion/Salmeterol 1 inhaler IN BID 09/16/19 [Wixela 500-50 Inhub] Insulin Glargine,Hum.rec.anlog 38 unit SQ HS 09/16/19 [Basaglar Kwikpen U-100] Collagenase Clostridium Hist. 1 applic TP DAILY #1 tube 10/17/19 [Santyl -] Docusate Sodium [Colace -] 100 mg PO TID #90 capsule 10/17/19 Montelukast Sodium [Singulair] 10 mg PO HS #30 tablet 10/17/19 Pantoprazole Sodium [Protonix -] 40 mg PO DAILY #30 tab 10/17/19 Rivaroxaban [Xarelto -] 20 mg PO DAILY #30 tablet 10/17/19 Sacubitril/Valsartan [Entresto 24 1 tab PO BID #60 tablet 10/17/19 mg-26 mg Tablet] Spironolactone [Aldactone -] 25 mg PO BID #60 tablet 10/17/19 Furosemide [Lasix -] 60 mg PO BID@0600,1400 10/27/19 Metoprolol Succinate [Toprol Xl] 25 mg PO BID 11/06/19 Digoxin [Lanoxin -] 0.125 mg PO DAILY #30 tablet 11/08/19 Insulin Sliding Scale [Novolog 18 unit SQ ASDIR 11/08/19 Vial Sliding Scale -] Liraglutide [Victoza -] 1.2 mg SQ DAILY 11/08/19 REVIEW OF SYSTEMS As per HPI PHYSICAL EXAMINATION Vital Signs - 24 hr 11/23/19 11/23/19 11/23/19 19:15 19:30 23:47 Temperature 98.6 F Pulse Rate 82 80 Pulse Rate [ 90 Radial] Respiratory 18 20 Rate Blood Pressure 141/84 Blood Pressure 147/84 [Right Arm] O2 Sat by Pulse 98 100 100 Oximetry (%) GENERAL: The patient is awake, alert, and fully oriented, in no acute distress. HEAD: Normocephalic, atraumatic. EYES: PERRL, extraocular movements intact, sclera anicteric, conjunctiva clear. ENT: Oropharynx clear, without erythema or exudates. Moist mucous membranes. NECK: Trachea midline, full range of motion. Supple without lymphadenopathy. LUNGS: Good inspiratory effort with crackles auscultated at bilateral bases (left > right). No accessory muscle use. No wheezing. HEART: Irregular rate. S1, S2 without murmur, rub or gallop. ABDOMEN: Soft, nondistended, nontender to light and deep palpation x4 quadrants. No rebound tenderness, no guarding. Normoactive bowel sounds x4 quadrants. No hepatosplenomegaly, no masses appreciated. RECTAL: patient refused exam upon my encounter EXTREMITIES: 2+ radial, dorsalis pedis pulses bilaterally. Warm, well-perfused. 2+ extremity edema bilaterally. NEUROLOGICAL: Cranial nerves II through XII grossly intact. Normal speech. No gross focal deficits. PSYCH: Normal mood, normal affect upon my encounter. SKIN: 2cm left leg ulcer, bandaged- non draining, non erythematous. Vertical scar noted well healed. Large horizontal scar at neck, well healed. Large birthmark on left upper abdomen, and left anterior leg. Vertical abdominal scar from open cholecystectomy well healed. Laboratory Results - last 24 hr 11/23/19 11/23/19 11/23/19 21:50 21:50 21:50 WBC 6.2 RBC 4.10 Hgb 10.5 L Hct 34.0 MCV 82.8 MCH 25.5 L MCHC 30.8 L RDW 19.8 H Plt Count 264 D MPV 9.4 Absolute Neuts (auto) 4.2 Neutrophils % 66.6 D Lymphocytes % 22.5 D Monocytes % 7.3 Eosinophils % 1.5 Basophils % 2.1 H Nucleated RBC % 0 PT with INR 54.90 H INR 4.58 H* PTT (Actin FS) 44.1 H VBG pH POC VBG pCO2 POC VBG pO2 VBG HCO3 VBG O2 Sat (Catracho) VBG Base Excess Sodium Potassium Chloride Carbon Dioxide Anion Gap BUN Creatinine Est GFR (CKD-EPI)AfAm Est GFR (CKD-EPI)NonAf Random Glucose Calcium Total Bilirubin AST ALT Alkaline Phosphatase Troponin I 0.05 B-Natriuretic Peptide 4135.6 H Total Protein Albumin 11/23/19 11/23/19 11/23/19 21:50 21:50 21:50 WBC RBC Hgb Hct MCV MCH MCHC RDW Plt Count MPV Absolute Neuts (auto) Neutrophils % Lymphocytes % Monocytes % Eosinophils % Basophils % Nucleated RBC % PT with INR INR PTT (Actin FS) VBG pH 7.380 POC VBG pCO2 40.0 POC VBG pO2 29.1 VBG HCO3 23.1 VBG O2 Sat (Catracho) 54.1 L VBG Base Excess -1.8 Sodium 138 Potassium 4.0 Chloride 105 Carbon Dioxide 25 Anion Gap 8 BUN 23.0 H Creatinine 1.2 Est GFR (CKD-EPI)AfAm 59.33 Est GFR (CKD-EPI)NonAf 51.19 Random Glucose 300 H Calcium 9.6 Total Bilirubin 1.4 H AST 27 ALT 46 Alkaline Phosphatase 192 H Troponin I B-Natriuretic Peptide Cancelled Total Protein 7.6 Albumin 3.5 ASSESSMENT/PLAN: Patient is a 54 year odl female with history of HFrEf (EF 30-35%), Afib (on Xarelto), diabetes mellitus (insulin dependent). hypertension, hyperlipidemia, asthma, cocaine use disorder with concomitant NSTEMI, chronic left lower extremity wound presents with complaint of shortness of breath. CHF exacerbation -Likely secondary to medication non adherence; patient endorses taking only half of her diuretic dose since hospital discharge two week ago. -Chest radiograph does not reveal acute infiltrates -Cardiac ECHO (09/2019) revealed moderate global hypokinesis of left ventricle, with mild dilation; EF 30-35%. -EKG reveals afib with PVCs at 86BPM -Initial troponin 0.05. Will trend -Reinstate home Spironolactone, Entresto,, Metoprolol, Digoxin, Furosemide -Telemetry monitoring -Strict intake/ output. Daily weights -Fluid restriction -Cardiology consult (Dr. Oscar) Asthma -Patient admits to mold, and roaches within her dwelling. Concern for superimposed asthma exacerbation given possible environmental triggers. -DuoNebs Q4 hours -Pulmonology consult (Dr. Noe) -Social work consult given concerning living conditions. Afib -Continue rate control with Toprol. -INR noted to be supratherapeutic; patient endorses compliance with Xarelo, and denies takang any other anticoagulants. Denies any recent bleeding. -Continue Xarelto for now, monitor stool for occult blood- may need to be discontinued if bleeding. -Follow INR Diabetes mellitus -HbA1c 10.2 (09/2019) -Insulin slidicng scale ACHS -Fingerstick blood glucose ACHS -Consider reinstating Levemir at reduced dose based on in-hospital fingersticks . FEN -No IV fluids -Follow BMP -Sodium restricted, diabetic diet Prophylaxis -On Xarelto Disposition -Admit to telemetry Visit type - Emergency Visit Emergency Visit: Yes ED Registration Date: 11/23/19 Care time: The patient presented to the Emergency Department on the above date and was hospitalized for further evaluation of their emergent condition. - New Patient This patient is new to me today: Yes Date on this admission: 11/24/19 - Critical Care Critical Care patient: No ATTENDING PHYSICIAN STATEMENT I saw and evaluated the patient. I reviewed the resident's note and discussed the case with the resident. I agree with the resident's findings and plan as documented. SUBJECTIVE: OBJECTIVE: ASSESSMENT AND PLAN:
[2019-11-24] MEDS ORDERED: LORATADINE 10 MG TABLET PO PRN (02:19)
[2019-11-24 04:50] LABS: OPIATES, URI NEGATIVE ng/ml (CUTOFF=300); PHENCYCLIDINE,URINE NEGATIVE ng/ml (CUTOFF=25); URINE AMPHETAMINES NEGATIVE ng/ml (CUTOFF=500); URINE BARBITURATES NEGATIVE ng/ml (CUTOFF=200); URINE BENZODIAZEPINES NEGATIVE ng/ml (CUTOFF=200)
[2019-11-24 04:52] LABS: METHADONE, UR NEGATIVE ng/ml (CUTOFF=300)
[2019-11-24 04:55] LABS: COCAINE, UR POSITIVE ng/ml (CUTOFF=300)
[2019-11-24] MEDS ORDERED: FUROSEMIDE 40 MG TABLET (FP) ONE (06:43)
[2019-11-24] MEDS: FUROSEMIDE 40 MG TABLET (FP) PO SCH ×2 (06:58→13:46)
[2019-11-24 07:06] LABS: HEMATOCRIT 33.8 % (32.4-45.2); HEMOGLOBIN 10.6 GM/dL (10.7-15.3); MCH 25.5 pg (25.7-33.7); MCHC 31.2 g/dl (32.0-36.0); MEAN CELL VOLUME 81.7 fl (80-96); MEAN PLT VOLUME 9.3 fl (7.5-11.1); PLATELET COUNT 248 K/MM3 (134-434); RBC 4.14 M/mm3 (3.60-5.2); RDW 19.8 % (11.6-15.6)
[2019-11-24 07:13] LABS: INR 3.59 (0.83-1.09); PROTHROMBIN TIME (PATIENT) 42.9 SEC (9.7-13.0)
[2019-11-24 07:15] LABS: ACTIVATED PTT 40.5 SECONDS (25.2-36.5)
[2019-11-24 07:35] LABS: ALBUMIN 3.4 g/dl (3.4-5.0); BILIRUBIN,TOTAL 1.4 mg/dL (0.2-1); CALCIUM 9.7 mg/dL (8.5-10.1); CREATININE 1.2 mg/dL (0.55-1.3); MAGNESIUM 1.7 mg/dL (1.8-2.4); PHOSPHOROUS 3.6 mg/dL (2.5-4.9); TOT PROT 7.5 g/dl (6.4-8.2)
[2019-11-24] MEDS: INSULIN SLIDING SCALE (NOVOLOG) 1 VIAL SQ SCH ×4 (08:03→21:56)
[2019-11-24] MEDS: ACETAMINOPHEN 1000 MG/100 ML VIAL (NON FORMULARY) IVPB PRN ×2 (08:04→20:10)
[2019-11-24] MEDS ORDERED: DIGOXIN 0.125 MG TABLET (FP) ONE (09:24)
[2019-11-24] MEDS ORDERED: SPIRONOLACTONE 25 MG TABLET ONE (09:24)
[2019-11-24] MEDS ORDERED: PANTOPRAZOLE 40 MG TABLET ONE (09:24)
[2019-11-24] MEDS: SPIRONOLACTONE 25 MG TABLET PO SCH ×2 (09:25→21:46)
[2019-11-24] MEDS: DIGOXIN 0.125 MG TABLET (FP) PO SCH (09:25)
[2019-11-24] MEDS: PANTOPRAZOLE 40 MG TABLET PO SCH (09:25)
[2019-11-24] MEDS ORDERED: metoPROLOL SUCCINATE 25 MG TAB.SR.24H (FP) PO SCH (10:00)
[2019-11-24] MEDS: SACUBITRIL/VALSARTAN 24 MG-26 MG TABLET PO SCH ×2 (10:16→21:57)
--- NOTE | 2019-11-24 10:47 | EKG ---
Test Reason : Blood Pressure : / mmHG Vent. Rate : 084 BPM Atrial Rate : 214 BPM P-R Int : 000 ms QRS Dur : 100 ms QT Int : 364 ms P-R-T Axes : 000 083 231 degrees QTc Int : 430 ms ATRIAL FIBRILLATION LATERAL INFARCT (CITED ON OR BEFORE 23-NOV-2019) ABNORMAL ECG WHEN COMPARED WITH ECG OF 23-NOV-2019 23:44, NONSPECIFIC T WAVE ABNORMALITY, IMPROVED IN INFERIOR LEADS Confirmed by Miriam Haas ([id number]) on 11/24/2019 10:47:33 AM Referred By: Confirmed By:Miriam Haas
--- NOTE | 2019-11-24 10:48 | EKG ---
Test Reason : Blood Pressure : / mmHG Vent. Rate : 086 BPM Atrial Rate : 087 BPM P-R Int : 000 ms QRS Dur : 096 ms QT Int : 366 ms P-R-T Axes : 000 095 238 degrees QTc Int : 437 ms ATRIAL FIBRILLATION WITH PREMATURE VENTRICULAR OR ABERRANTLY CONDUCTED COMPLEXES LATERAL INFARCT , AGE UNDETERMINED ABNORMAL ECG WHEN COMPARED WITH ECG OF 06-NOV-2019 06:43, VENT. RATE HAS DECREASED BY 44 BPM Confirmed by Miriam Haas ([id number]) on 11/24/2019 10:48:38 AM Referred By: Confirmed By:Miriam Haas
--- NOTE | 2019-11-24 12:38 | CON.ID ---
Consult Consult Specialty:: infectious diseases Referred by:: hospitalist Reason for Consultation:: confusion,non healing wound,cellulitis of the leg - History of Present Illness Chief Complaint: confusion,leg pain History of Present Illness: 54 year odl female with history of HFrEf (EF 30-35%), Afib (on Xarelto), diabetes mellitus (insulin dependent). hypertension, hyperlipidemia, asthma, cocaine use disorder with conmoninant NSTEMI, chronic left lower extremity wound presents with complaint of shortness of breath. Patient states that for past three days patient has been unable to walk more than a few feet without signific ant dyspnea. Patient was recently discharged 11/07 for evaluation of similar symptoms, and was treated for CHF exacerbation. Patient has had numerous prior admissions this year for similar complaints. Upon my encoutner, patient admits that she has only been taking Furosemide 60mg once daily (she was prescribed twice daily upon her last discharge). She admits that she became confused regarding which medications to take and at what time which led to nonadherence of her regimen. She admits six pillow orthopnea (usually sleeps with 4-5 pillows). Admits to using her Albuterol inhaler twice yesterday, in addition to three nebulizer treatments with minimal improvement of her symptoms. Patient states her weight two days ago was 226lb. She denies sick contacts, subjective fevers, chills, chest pain, palpitations, abdominal pain, nausea, vomiting, any bleeding, melena, hematochezia, hemoptysis, or hematuria. - History Source History Provided By: Patient Limitations to Obtaining History: No Limitations - Past Medical History Cardio/Vascular: Yes: AFIB, CAD (NONOBSTRUCTIVE), CHF (EF 15-20%, with INC RVP,), HTN, Hyperlipdemia, Pulmonary Hypertension Pulmonary: Yes: Asthma, COPD, Sleep Apnea (LIKLEY BUT NEVER TESTED) ...LMP: 12/06/15 ...: No Psych: Yes: Anxiety Musculoskeletal: Yes: Chronic low back pain, Other (Other (right knee with healed scar, mild bilateral edema, stiffness, moves with difficulty)) Endocrine: Yes: Diabetes Mellitus - Past Surgical History Past Surgical History: Yes: Cholecystectomy, (3), Joint Replacement (LEFT KNEE) - Alcohol/Substance Use Hx Alcohol Use: No History of Substance Use: reports: Cocaine - Smoking History Smoking history: Never smoked Have you smoked in the past 12 months: No Aproximately how many cigarettes per day: 10 If you are a former smoker, when did you quit?: 2019 - Social History ADL: Independent History of Recent Travel: No Home Medications - Allergies Allergies/Adverse Reactions: Allergies Allergy/AdvReac Type Severity Reaction Status Date / Time amoxicillin trihydrate Allergy Intermediate Swelling Verified 12/04/19 11:47 [From Augmentin] potassium clavulanate Allergy Intermediate Swelling Verified 12/04/19 11:47 [From Augmentin] amoxicillin Allergy Verified 12/04/19 11:47 - Home Medications Home Medications: Ambulatory Orders RX: Loratadine 10 mg PO DAILY PRN 06/30/19 RX: Cholecalciferol (Vitamin D3) [Vitamin D3 -] 50,000 unit PO WEEKLY 09/16/19 RX: Fluticasone Propion/Salmeterol [Wixela 500-50 Inhub] 1 inhaler IN BID 09/16/19 RX: Insulin Glargine,Hum.rec.anlog [Basaglar Kwikpen U-100] 38 unit SQ DAILY 09/16/19 RX: Collagenase Clostridium Hist. [Santyl -] 1 applic TP DAILY #1 tube 10/17/19 RX: Docusate Sodium [Colace -] 100 mg PO TID #90 capsule 10/17/19 RX: Montelukast Sodium [Singulair] 10 mg PO HS #30 tablet 10/17/19 RX: Pantoprazole Sodium [Protonix -] 40 mg PO DAILY #30 tab 10/17/19 RX: Rivaroxaban [Xarelto -] 20 mg PO DAILY #30 tablet 10/17/19 RX: Sacubitril/Valsartan [Entresto 24 mg-26 mg Tablet] 1 tab PO BID #60 tablet 10/17/19 RX: Spironolactone [Aldactone -] 25 mg PO BID #60 tablet 10/17/19 RX: Furosemide [Lasix -] 60 mg PO BID@0600,1400 10/27/19 RX: Metoprolol Succinate [Toprol Xl] 25 mg PO BID 11/06/19 RX: Digoxin [Lanoxin -] 0.125 mg PO DAILY #30 tablet 11/08/19 RX: Liraglutide [Victoza -] 1.2 mg SQ DAILY 11/08/19 Insulin Glargine,Hum.rec.anlog [Lantus] 30 unit SQ HS 12/04/19 Review of Systems - Review of Systems Constitutional: reports: Weakness Cardiovascular: reports: Shortness of Breath Respiratory: reports: SOB, SOB on Exertion Integumentary: reports: Erythema Neurological: reports: Confusion Hematology/Lymphatic: reports: No Symptoms Psychiatric: reports: No Symptoms Physical Exam Vital Signs: Vital Signs Temperature 98.0 F 11/24/19 11:57 Pulse Rate 78 11/24/19 11:57 Respiratory Rate 11/24/19 11:57 Blood Pressure 128/80 11/24/19 11:57 O2 Sat by Pulse Oximetry (%) 100 11/24/19 11:57 Constitutional: Yes: No Distress, Calm Cardiovascular: Yes: Pulse Irregular Respiratory: Yes: Regular, CTA Bilaterally Gastrointestinal: Yes: Normal Bowel Sounds, Soft Musculoskeletal: Yes: WNL Extremities: Yes: Other Neurological: Yes: Alert, Oriented Psychiatric: Yes: Alert, Oriented Labs: CBC, BMP 11/24/19 06:50 11/24/19 06:50 Imaging - Results Chest X-ray: Report Reviewed, Image Reviewed Assessment/Plan 54 year old woman with MHx of Afib (on Xarelto), HFrEF (LVEF 15-20%), Cocaine- induced OR, BLE edema/wound, Bipolar disorder, Left knee replacement, HTN, HLD, Asthma, Insulin-treated DM, , Tobacco use and multiple admissions for "CHF exacerbation" presenting with SOB and recent cocaine use # Acute on Chronic HFrEF - non compliant - Daily wt, I/O, strict intake/Output - IV furosemide - cocaine+ve - 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
--- NOTE | 2019-11-24 13:06 | CON.CARD ---
Cardiology Consult (text) - Consultation Consultation Note: Chief Complaint: sob History of Present Illness: 53F h/o HTN, HLD, chronic systolic HF, DM p/w shortness of breath. Several recent admits for chf, most recently last month. Now with three days of dyspnea, unable to sleep at night because she is short of breath. utox +cocaine. was discharged last admit with furosemide 60 mg BID, however has only been taking daily. Has been sleeping on more pillows and using more nebulizer treatments as well. - Past Medical History Cardio/Vascular: Yes: HTN Pulmonary: Yes: Asthma, COPD Endocrine: Yes: Diabetes Mellitus - Alcohol/Substance Use Hx Alcohol Use: No - Smoking History Smoking history: Current every day smoker Have you smoked in the past 12 months: Yes Aproximately how many cigarettes per day: 10 Home Medications - Allergies Allergies/Adverse Reactions: Allergies Allergy/AdvReac Type Severity Reaction Status Date / Time amoxicillin trihydrate Allergy Intermediate Swelling Verified 11/23/19 19:15 [From Augmentin] potassium clavulanate Allergy Intermediate Swelling Verified 11/23/19 19:15 [From Augmentin] amoxicillin Allergy Verified 11/23/19 19:15 Home Medications Medication Instructions Recorded Loratadine 10 mg PO DAILY PRN 06/30/19 Cholecalciferol (Vitamin D3) 50,000 unit PO WEEKLY 09/16/19 [Vitamin D3 -] Fluticasone Propion/Salmeterol 1 inhaler IN BID 09/16/19 [Wixela 500-50 Inhub] Insulin Glargine,Hum.rec.anlog 38 unit SQ HS 09/16/19 [Devonaglvalentino Mat[place]os U-100] Collagenase Clostridium Hist. 1 applic TP DAILY #1 tube 10/17/19 [Santyl -] Docusate Sodium [Colace -] 100 mg PO TID #90 capsule 10/17/19 Montelukast Sodium [Singulair] 10 mg PO HS #30 tablet 10/17/19 Pantoprazole Sodium [Protonix -] 40 mg PO DAILY #30 tab 10/17/19 Rivaroxaban [Xarelto -] 20 mg PO DAILY #30 tablet 10/17/19 Sacubitril/Valsartan [Entresto 24 1 tab PO BID #60 tablet 10/17/19 mg-26 mg Tablet] Spironolactone [Aldactone -] 25 mg PO BID #60 tablet 10/17/19 Furosemide [Lasix -] 60 mg PO BID@0600,1400 10/27/19 Metoprolol Succinate [Toprol Xl] 25 mg PO BID 11/06/19 Digoxin [Lanoxin -] 0.125 mg PO DAILY #30 tablet 11/08/19 Insulin Sliding Scale [Novolog 18 unit SQ ASDIR 11/08/19 Vial Sliding Scale -] Liraglutide [Victoza -] 1.2 mg SQ DAILY 11/08/19 Family Disease History - Family Disease History Family Disease History: Diabetes: Sister (seven - ), Heart Disease: Sister, CA: Mother (), Respiratory: Sister, Other: Father (, etoh), Mother, Brother (four - one mental health problem), Sister, Son (five - asthma ), Daughter (one - healthy) Review of Systems - Review of Systems per hpi; all others nl Vital Signs Period Temp Pulse Resp BP Sys/Khanna Pulse Ox Last 24 Hr 97.5 F-101.2 F 78-93 18-20 120-162/68-84 90-100 Constitutional: Yes: No Distress, Calm Eyes: Yes: Conjunctiva Clear, EOM Intact HENT: Yes: Atraumatic, Normocephalic Neck: Yes: Supple, Trachea Midline Respiratory: + sommer rales at bases Gastrointestinal: Yes: Normal Bowel Sounds, Soft Cardiovascular: Yes: Tachycardia JVD: No Carotid Bruit: No PMI: Non-Displaced Heart Sounds: Yes: S1, S2 Musculoskeletal: No: Back Pain Extremities: Yes: Cool Edema: Yes Edema: LLE: 1+, RLE: 1+ Integumentary: No: Jaundice Neurological: Yes: Alert, Oriented Psychiatric: No: Agitated EKG: afib, rate controlled, no ischemic changes cxr: + congestive changes echo 10/2018 dilated LV, severe global hypokinesis, EF 15-20%, RV mildly reduced function, LA mod dilated, mild MAC, mild MR, mild TR, RVSP >40-50 mmHg echo 09/2019: lve, lvef 30-35, mild dec rv fcn, mild mr a/p: 53F h/o HTN, HLD, afib, chronic systolic HF, DM p/w sob acute on chronic systolic chf, NICM: -Likely NICM due to chronic HTN, cocaine use -pt had not followed up for ICD as planned in past and her cocaine use is a relative contraindication -recent echo 09/2019 with stable chronic findings, lvef slightly improved - acute exacerbation likely in setting of med noncompliance - cont iv lasix. daily wts and chem7. -cont Entresto, metoprolol, aldactone AFib: - cont metoprolol, digoxin -cont xarelto CAD, NSTEMI: -pt presented with NSTEMI in 2018 but subsequent cath showed single vessel disease, medically managed with cardiomyopathy out of proportion to degree of CAD -no signs ACS here -cont bb, ac. statin stopped previously due to elevated lfts.
[2019-11-24] MEDS: metoPROLOL SUCCINATE 25 MG TAB.SR.24H (FP) PO SCH ×2 (13:46→21:46)
--- NOTE | 2019-11-24 14:57 | PN ---
Progress Note (short form) - Note Progress Note: PULMONARY CONSULTATION DICTATED 11/24/19 IMP DYSPNEA ACUTE ON CHRONIC CHF NON-ISCHEMIC CARDIOMYOPATHY ASTHMA/COPD HTN IDDM HLD H/O NSTEMI AFIB COCAINE ABUSE NONCOMPLIANCE SUPRATHERAPEUTIC INR TOBACCO ABUSE PLAN SUPPLEMENTAL O2 LASIX INHALED BROCHODILATORS DAILY WTS MONITOR LYTES,RENAL FUNCTION MONITOR BLOOD SUGARS F/U CHEST X-RAYS STRESS COMPLIANCE WITH MEDS MONITOR INR SMOKING CESSATION COUNSELED DR HASSAN Problem List - Problems (1) Acute on chronic congestive heart failure Code(s): I50.9 - HEART FAILURE, UNSPECIFIED (2) Heart failure, systolic, with acute decompensation Code(s): I50.23 - ACUTE ON CHRONIC SYSTOLIC (CONGESTIVE) HEART FAILURE (3) COPD (chronic obstructive pulmonary disease) Code(s): J44.9 - CHRONIC OBSTRUCTIVE PULMONARY DISEASE, UNSPECIFIED Qualifiers: COPD type: unspecified COPD Qualified Code(s): J44.9 - Chronic obstructive pulmonary disease, unspecified (4) Atrial fibrillation Code(s): I48.91 - UNSPECIFIED ATRIAL FIBRILLATION (5) CHF exacerbation Code(s): I50.9 - HEART FAILURE, UNSPECIFIED Qualifiers: Heart failure type: systolic Qualified Code(s): I50.23 - Acute on chronic systolic (congestive) heart failure (6) Cardiac LV ejection fraction 21-30% Code(s): R93.1 - ABNORMAL FINDINGS ON DX IMAGING OF HEART AND COR CIRC (7) FERRER (dyspnea on exertion) Code(s): R06.09 - OTHER FORMS OF DYSPNEA (8) COPD (chronic obstructive pulmonary disease) Code(s): J44.9 - CHRONIC OBSTRUCTIVE PULMONARY DISEASE, UNSPECIFIED (9) Diabetes Code(s): E11.9 - TYPE 2 DIABETES MELLITUS WITHOUT COMPLICATIONS (10) Hyperlipidemia Code(s): E78.5 - HYPERLIPIDEMIA, UNSPECIFIED (11) Hypertension Code(s): I10 - ESSENTIAL (PRIMARY) HYPERTENSION (12) Pulmonary hypertension Code(s): I27.20 - PULMONARY HYPERTENSION, UNSPECIFIED (13) Dyspnea Code(s): R06.00 - DYSPNEA, UNSPECIFIED
--- NOTE | 2019-11-24 17:17 | PN ---
Physical Exam: SUBJECTIVE: Patient seen and examined OBJECTIVE: Vital Signs Period Temp Pulse Resp BP Sys/Khanna Pulse Ox Last 24 Hr 97.5 F-101.2 F 78-93 18-20 120-162/68-84 90-100 GENERAL: The patient is awake, alert, and fully oriented, in no acute distress. HEENT: AT/NC, not p,c,j, neck supple, no JVD noted, neck traumatic scar noted LUNGS: bilateral rales noted. HEART: Regular rate and rhythm, S1, S2 with percordial systolic murmur, no rub or gallop. ABDOMEN: Soft, nontender, nondistended, normoactive bowel sounds, no guarding, no rebound, no hepatosplenomegaly, no masses. EXTREMITIES: 2+ pulses, warm, well-perfused, ++ edema. NEUROLOGICAL: Cranial nerves II through XII grossly intact. depressed sensation below knee Normal speech, gait not observed. PSYCH: Normal mood, normal affect. SKIN: Warm, dry, normal turgor, no rashes or lesions noted, lt calf round stage 3 ulcer noted, no tenderness, erythema Laboratory Results - last 24 hr 11/23/19 11/23/19 11/23/19 21:50 21:50 21:50 WBC 6.2 RBC 4.10 Hgb 10.5 L Hct 34.0 MCV 82.8 MCH 25.5 L MCHC 30.8 L RDW 19.8 H Plt Count 264 D MPV 9.4 Absolute Neuts (auto) 4.2 Neutrophils % 66.6 D Lymphocytes % 22.5 D Monocytes % 7.3 Eosinophils % 1.5 Basophils % 2.1 H Nucleated RBC % 0 PT with INR 54.90 H INR 4.58 H* PTT (Actin FS) 44.1 H VBG pH POC VBG pCO2 POC VBG pO2 VBG HCO3 VBG O2 Sat ([place]) VBG Base Excess Sodium Potassium Chloride Carbon Dioxide Anion Gap BUN Creatinine Est GFR (CKD-EPI)AfAm Est GFR (CKD-EPI)NonAf POC Glucometer Random Glucose Calcium Phosphorus Magnesium Total Bilirubin AST ALT Alkaline Phosphatase Creatine Kinase Troponin I 0.05 B-Natriuretic Peptide 4135.6 H Total Protein Albumin Digoxin Opiates Screen Methadone Screen Barbiturate Screen Phencyclidine Screen Ur Amphetamines Screen MDMA (Ecstasy) Screen Benzodiazepines Screen Cocaine Screen U Marijuana (THC) Screen 11/23/19 11/23/19 11/23/19 21:50 21:50 21:50 WBC RBC Hgb Hct MCV MCH MCHC RDW Plt Count MPV Absolute Neuts (auto) Neutrophils % Lymphocytes % Monocytes % Eosinophils % Basophils % Nucleated RBC % PT with INR INR PTT (Actin FS) VBG pH 7.380 POC VBG pCO2 40.0 POC VBG pO2 29.1 VBG HCO3 23.1 VBG O2 Sat ([place]) 54.1 L VBG Base Excess -1.8 Sodium 138 Potassium 4.0 Chloride 105 Carbon Dioxide 25 Anion Gap 8 BUN 23.0 H Creatinine 1.2 Est GFR (CKD-EPI)AfAm 59.33 Est GFR (CKD-EPI)NonAf 51.19 POC Glucometer Random Glucose 300 H Calcium 9.6 Phosphorus Magnesium Total Bilirubin 1.4 H AST 27 ALT 46 Alkaline Phosphatase 192 H Creatine Kinase Troponin I B-Natriuretic Peptide Cancelled Total Protein 7.6 Albumin 3.5 Digoxin Opiates Screen Methadone Screen Barbiturate Screen Phencyclidine Screen Ur Amphetamines Screen MDMA (Ecstasy) Screen Benzodiazepines Screen Cocaine Screen U Marijuana (THC) Screen 11/24/19 11/24/19 11/24/19 03:23 03:40 06:15 WBC RBC Hgb Hct MCV MCH MCHC RDW Plt Count MPV Absolute Neuts (auto) Neutrophils % Lymphocytes % Monocytes % Eosinophils % Basophils % Nucleated RBC % PT with INR INR PTT (Actin FS) VBG pH POC VBG pCO2 POC VBG pO2 VBG HCO3 VBG O2 Sat ([place]) VBG Base Excess Sodium Potassium Chloride Carbon Dioxide Anion Gap BUN Creatinine Est GFR (CKD-EPI)AfAm Est GFR (CKD-EPI)NonAf POC Glucometer Random Glucose Calcium Phosphorus Magnesium Total Bilirubin AST ALT Alkaline Phosphatase Creatine Kinase Troponin I 0.03 B-Natriuretic Peptide Total Protein Albumin Digoxin 0.46 L Opiates Screen Negative Methadone Screen Negative Barbiturate Screen Negative Phencyclidine Screen Negative Ur Amphetamines Screen Negative MDMA (Ecstasy) Screen Negative Benzodiazepines Screen Negative Cocaine Screen Positive A* U Marijuana (THC) Screen Negative 11/24/19 11/24/19 11/24/19 06:49 06:50 06:50 WBC 6.0 RBC 4.14 Hgb 10.6 L Hct 33.8 MCV 81.7 MCH 25.5 L MCHC 31.2 L RDW 19.8 H Plt Count 248 MPV 9.3 Absolute Neuts (auto) Neutrophils % Lymphocytes % Monocytes % Eosinophils % Basophils % Nucleated RBC % PT with INR INR PTT (Actin FS) VBG pH POC VBG pCO2 POC VBG pO2 VBG HCO3 VBG O2 Sat ([place]) VBG Base Excess Sodium 139 Potassium 4.0 Chloride 105 Carbon Dioxide 25 Anion Gap 9 BUN 22.0 H Creatinine 1.2 Est GFR (CKD-EPI)AfAm 59.33 Est GFR (CKD-EPI)NonAf 51.19 POC Glucometer 283 Random Glucose 288 H Calcium 9.7 Phosphorus 3.6 Magnesium 1.7 L Total Bilirubin 1.4 H AST 30 ALT 43 Alkaline Phosphatase 191 H Creatine Kinase 105 Troponin I 0.05 B-Natriuretic Peptide Total Protein 7.5 Albumin 3.4 Digoxin Opiates Screen Methadone Screen Barbiturate Screen Phencyclidine Screen Ur Amphetamines Screen MDMA (Ecstasy) Screen Benzodiazepines Screen Cocaine Screen U Marijuana (THC) Screen 11/24/19 11/24/19 06:50 11:20 WBC RBC Hgb Hct MCV MCH MCHC RDW Plt Count MPV Absolute Neuts (auto) Neutrophils % Lymphocytes % Monocytes % Eosinophils % Basophils % Nucleated RBC % PT with INR 42.90 H INR 3.59 H PTT (Actin FS) 40.5 H VBG pH POC VBG pCO2 POC VBG pO2 VBG HCO3 VBG O2 Sat (Catr[place]) VBG Base Excess Sodium Potassium Chloride Carbon Dioxide Anion Gap BUN Creatinine Est GFR (CKD-EPI)AfAm Est GFR (CKD-EPI)NonAf POC Glucometer 90 Random Glucose Calcium Phosphorus Magnesium Total Bilirubin AST ALT Alkaline Phosphatase Creatine Kinase Troponin I B-Natriuretic Peptide Total Protein Albumin Digoxin Opiates Screen Methadone Screen Barbiturate Screen Phencyclidine Screen Ur Amphetamines Screen MDMA (Ecstasy) Screen Benzodiazepines Screen Cocaine Screen U Marijuana (THC) Screen Active Medications Generic Name Dose Route Start Last Admin Trade Name Freq PRN Reason Stop Dose Admin Acetaminophen 1,000 mg 11/24/19 07:30 11/24/19 08:04 Ofirmev Injection - IVPB 11/25/19 07:30 1,000 mg Q6H PRN Administration PAIN LEVEL 6-10 Digoxin 0.125 mg 11/24/19 10:00 11/24/19 09:25 Lanoxin - PO 0.125 mg DAILY SOREN Administration Furosemide 60 mg 11/24/19 06:00 11/24/19 13:46 Lasix - PO 60 mg BID@0600,1400 SOREN Administration Insulin Aspart 1 vial 11/24/19 07:00 11/24/19 11:27 Novolog Vial Sliding Scale - SQ Not Given ACHS SOREN Protocol Loratadine 10 mg 11/24/19 02:19 Claritin - PO DAILY PRN ALLERGIES Metoprolol Succinate 25 mg 11/24/19 13:15 11/24/19 13:46 Toprol Xl - PO 25 mg BID SOREN Administration Montelukast Sodium 10 mg 11/24/19 22:00 Singulair - PO HS SOREN Pantoprazole Sodium 40 mg 11/24/19 10:00 11/24/19 09:25 Protonix - PO 40 mg DAILY SOREN Administration Sacubitril/Valsartan 1 tab 11/24/19 10:00 11/24/19 10:16 Entresto 24 Mg-26 Mg Tablet PO 1 tab BID SOREN Administration Spironolactone 25 mg 11/24/19 10:00 11/24/19 09:25 Aldactone - PO 25 mg BID SOREN Administration ASSESSMENT/PLAN: 54 year old woman with MHx of Afib (on Xarelto), HFrEF (LVEF 15-20%), Cocaine- induced TX, BLE edema/wound, Bipolar disorder, Left knee replacement, HTN, HLD, Asthma, Insulin-treated DM, , Tobacco use and multiple admissions for "CHF exacerbation" presenting with SOB and recent cocaine use # Acute on Chronic HFrEF - non compliant - Daily wt, I/O, strict intake/Output - IV furosemide - cocaine+ve - resume HF medication per alumni secretary, discussed the BB in setting of cocaine use, pt has AFib also - discussed smoking, cocaine abstinence in length, as well as diet, medication compliance - High INR will hold xarelto for today and trend Afib Cocaine abuse bipolar HTN HLD ASthma DM COVID pending DVT prophylaxis (on Xarelto) Visit type - Emergency Visit Emergency Visit: Yes ED Registration Date: 11/23/19 Care time: The patient presented to the Emergency Department on the above date and was hospitalized for further evaluation of their emergent condition. - New Patient This patient is new to me today: Yes Date on this admission: 11/24/19 - Critical Care Critical Care patient: No - Discharge Referral Referred to [facility] Med P.C.: No
[2019-11-24] MEDS ORDERED: RIVAROXABAN 20 MG TABLET PO SCH (18:00)
[2019-11-24] MEDS: FUROSEMIDE 40 MG/4 ML INJECTABLE VIAL IVPUSH SCH ×2 (20:09→21:46)
[2019-11-24] MEDS: MONTELUKAST NA 10 MG TABLET PO SCH (21:46)
[2019-11-25] MEDS: ACETAMINOPHEN 1000 MG/100 ML VIAL (NON FORMULARY) IVPB PRN (02:37)
[2019-11-25] MEDS: INSULIN SLIDING SCALE (NOVOLOG) 1 VIAL SQ SCH ×4 (06:18→21:13)
[2019-11-25 06:43] LABS: BASO % 2.3 % (0-2.0); EOS % 2.7 % (0-4.5); HEMATOCRIT 33.6 % (32.4-45.2); HEMOGLOBIN 10.4 GM/dL (10.7-15.3); LYMPH % 30.6 % (8-40); MCH 25.4 pg (25.7-33.7); MEAN PLT VOLUME 9.2 fl (7.5-11.1); MONO % 7.5 % (3.8-10.2); NEUT % 56.9 % (42.8-82.8); PLATELET COUNT 262 K/MM3 (134-434); RDW 19.6 % (11.6-15.6); WHITE BLOOD COUNT 5.7 K/mm3 (4.0-10.0)
--- NOTE | 2019-11-25 06:50 | PN ---
Progress Note, Physician History of Present Illness: PULMONARY ALERT,C/O SOB,GENERALIZED PAINS - Current Medication List Current Medications: Active Medications Acetaminophen (Ofirmev Injection -) 1,000 mg IVPB Q6H PRN PRN Reason: PAIN LEVEL 6-10 Stop: 11/25/19 07:30 Last Admin: 11/25/19 02:37 Dose: 1,000 mg Documented by: Digoxin (Lanoxin -) 0.125 mg PO DAILY [facility] Last Admin: 11/24/19 09:25 Dose: 0.125 mg Documented by: Furosemide (Lasix Injection -) 40 mg IVPUSH BID [facility] Last Admin: 11/24/19 21:46 Dose: Not Given Documented by: Insulin Aspart (Novolog Vial Sliding Scale -) 1 vial SQ [facility]; Protocol Last Admin: 11/25/19 06:18 Dose: 4 units Documented by: Loratadine (Claritin -) 10 mg PO DAILY PRN PRN Reason: ALLERGIES Metoprolol Succinate (Toprol Xl -) 25 mg PO BID [facility] Last Admin: 11/24/19 21:46 Dose: 25 mg Documented by: Montelukast Sodium (Singulair -) 10 mg PO HS [facility] Last Admin: 11/24/19 21:46 Dose: 10 mg Documented by: Pantoprazole Sodium (Protonix -) 40 mg PO DAILY [facility] Last Admin: 11/24/19 09:25 Dose: 40 mg Documented by: Sacubitril/Valsartan (Entresto 24 Mg-26 Mg Tablet) 1 tab PO BID [facility] Last Admin: 11/24/19 21:57 Dose: Not Given Documented by: Spironolactone (Aldactone -) 25 mg PO BID [facility] Last Admin: 11/24/19 21:46 Dose: 25 mg Documented by: - Objective Vital Signs: Vital Signs Temperature 97.2 F L 11/25/19 06:00 Pulse Rate 80 11/25/19 06:00 Respiratory Rate 20 11/25/19 06:00 Blood Pressure 116/80 11/25/19 06:00 O2 Sat by Pulse Oximetry (%) 100 11/25/19 02:00 Constitutional: Yes: Well Nourished, Calm Eyes: Yes: WNL HENT: Yes: WNL Neck: Yes: WNL Cardiovascular: Yes: Pulse Irregular, S1, S2 Respiratory: Yes: Rales (BIBASAILR RALES) Gastrointestinal: Yes: Normal Bowel Sounds, Soft Extremities: Yes: WNL Edema: No Labs: INR, PTT INR 3.59 (0.83-1.09) H 11/24/19 06:50 Problem List - Problems (1) Acute on chronic congestive heart failure Code(s): I50.9 - HEART FAILURE, UNSPECIFIED (2) Heart failure, systolic, with acute decompensation Code(s): I50.23 - ACUTE ON CHRONIC SYSTOLIC (CONGESTIVE) HEART FAILURE (3) COPD (chronic obstructive pulmonary disease) Code(s): J44.9 - CHRONIC OBSTRUCTIVE PULMONARY DISEASE, UNSPECIFIED Qualifiers: COPD type: unspecified COPD Qualified Code(s): J44.9 - Chronic obstructive pulmonary disease, unspecified (4) Atrial fibrillation Code(s): I48.91 - UNSPECIFIED ATRIAL FIBRILLATION (5) CHF exacerbation Code(s): I50.9 - HEART FAILURE, UNSPECIFIED Qualifiers: Heart failure type: systolic Qualified Code(s): I50.23 - Acute on chronic systolic (congestive) heart failure (6) Cardiac LV ejection fraction 21-30% Code(s): R93.1 - ABNORMAL FINDINGS ON DX IMAGING OF HEART AND COR CIRC (7) FERRER (dyspnea on exertion) Code(s): R06.09 - OTHER FORMS OF DYSPNEA (8) COPD (chronic obstructive pulmonary disease) Code(s): J44.9 - CHRONIC OBSTRUCTIVE PULMONARY DISEASE, UNSPECIFIED (9) Diabetes Code(s): E11.9 - TYPE 2 DIABETES MELLITUS WITHOUT COMPLICATIONS (10) Hyperlipidemia Code(s): E78.5 - HYPERLIPIDEMIA, UNSPECIFIED (11) Hypertension Code(s): I10 - ESSENTIAL (PRIMARY) HYPERTENSION (12) Pulmonary hypertension Code(s): I27.20 - PULMONARY HYPERTENSION, UNSPECIFIED (13) Dyspnea Code(s): R06.00 - DYSPNEA, UNSPECIFIED Assessment/Plan IMP DYSPNEA ACUTE ON CHRONIC CHF NON-ISCHEMIC CARDIOMYOPATHY ASTHMA/COPD HTN IDDM HLD H/O NSTEMI AFIB COCAINE ABUSE NONCOMPLIANCE SUPRATHERAPEUTIC INR TOBACCO ABUSE ALICE PLAN SUPPLEMENTAL O2 CONTINUE LASIX INHALED BROCHODILATORS DAILY WTS MONITOR LYTES,RENAL FUNCTION MONITOR BLOOD SUGARS F/U CHEST X-RAYS STRESS COMPLIANCE WITH MEDS MONITOR INR SMOKING CESSATION COUNSELED DR HASSAN Problem List - Problems (1) Acute on chronic congestive heart failure Code(s): I50.9 - HEART FAILURE, UNSPECIFIED (2) Heart failure, systolic, with acute decompensation Code(s): I50.23 - ACUTE ON CHRONIC SYSTOLIC (CONGESTIVE) HEART FAILURE (3) COPD (chronic obstructive pulmonary disease) Code(s): J44.9 - CHRONIC OBSTRUCTIVE PULMONARY DISEASE, UNSPECIFIED Qualifiers: COPD type: unspecified COPD Qualified Code(s): J44.9 - Chronic obstructive pulmonary disease, unspecified (4) Atrial fibrillation Code(s): I48.91 - UNSPECIFIED ATRIAL FIBRILLATION (5) CHF exacerbation Code(s): I50.9 - HEART FAILURE, UNSPECIFIED Qualifiers: Heart failure type: systolic Qualified Code(s): I50.23 - Acute on chronic systolic (congestive) heart failure (6) Cardiac LV ejection fraction 21-30% Code(s): R93.1 - ABNORMAL FINDINGS ON DX IMAGING OF HEART AND COR CIRC (7) FERRER (dyspnea on exertion) Code(s): R06.09 - OTHER FORMS OF DYSPNEA (8) COPD (chronic obstructive pulmonary disease) Code(s): J44.9 - CHRONIC OBSTRUCTIVE PULMONARY DISEASE, UNSPECIFIED (9) Diabetes Code(s): E11.9 - TYPE 2 DIABETES MELLITUS WITHOUT COMPLICATIONS (10) Hyperlipidemia Code(s): E78.5 - HYPERLIPIDEMIA, UNSPECIFIED (11) Hypertension Code(s): I10 - ESSENTIAL (PRIMARY) HYPERTENSION (12) Pulmonary hypertension Code(s): I27.20 - PULMONARY HYPERTENSION, UNSPECIFIED (13) Dyspnea Code(s): R06.00 - DYSPNEA, UNSPECIFIED
[2019-11-25 06:51] LABS: INR 1.95 (0.83-1.09); PROTHROMBIN TIME (PATIENT) 23.2 SEC (9.7-13.0)
[2019-11-25 07:06] LABS: ALBUMIN 3.3 g/dl (3.4-5.0); BILIRUBIN,DIRECT 0.6 mg/dL (0.0-0.2); CALCIUM 9.5 mg/dL (8.5-10.1); CREATININE 1.5 mg/dL (0.55-1.3); TOT PROT 6.9 g/dl (6.4-8.2)
[2019-11-25] MEDS ORDERED: PT OWN MED DRAWER 7, Y5N ONE (10:15)
[2019-11-25] MEDS: DIGOXIN 0.125 MG TABLET (FP) PO SCH (10:19)
[2019-11-25] MEDS: metoPROLOL SUCCINATE 25 MG TAB.SR.24H (FP) PO SCH ×2 (10:19→21:13)
[2019-11-25] MEDS: PANTOPRAZOLE 40 MG TABLET PO SCH (10:19)
[2019-11-25] MEDS: FUROSEMIDE 40 MG/4 ML INJECTABLE VIAL IVPUSH SCH (10:19)
[2019-11-25] MEDS: SPIRONOLACTONE 25 MG TABLET PO SCH (10:19)
[2019-11-25] MEDS: SACUBITRIL/VALSARTAN 24 MG-26 MG TABLET PO SCH (10:19)
[2019-11-25] MEDS ORDERED: ACETAMINOPHEN 1000 MG/100 ML VIAL (NON FORMULARY) IVPB ONE (10:20)
--- NOTE | 2019-11-25 11:04 | PN ---
Progress Note (short form) - Note Progress Note: cc: sob s: complains of leg pain bilaterally. still short of breath, no chest pain,palps, dizziness Current Medications Generic Name Dose Route Start Last Admin Trade Name Santa PRN Reason Stop Dose Admin Digoxin 0.125 mg 11/24/19 10:00 11/25/19 10:19 Lanoxin - PO 0.125 mg DAILY SOREN Administration Furosemide 40 mg 11/24/19 22:00 11/25/19 10:19 Lasix Injection - IVPUSH 40 mg BID SOREN Administration Insulin Aspart 1 vial 11/24/19 07:00 11/25/19 06:18 Novolog Vial Sliding Scale - SQ 4 units ACHS SOREN Administration Protocol Loratadine 10 mg 11/24/19 02:19 Claritin - PO DAILY PRN ALLERGIES Metoprolol Succinate 25 mg 11/24/19 13:15 11/25/19 10:19 Toprol Xl - PO 25 mg BID SOREN Administration Montelukast Sodium 10 mg 11/24/19 22:00 11/24/19 21:46 Singulair - PO 10 mg HS SOREN Administration Pantoprazole Sodium 40 mg 11/24/19 10:00 11/25/19 10:19 Protonix - PO 40 mg DAILY SOREN Administration Rivaroxaban 20 mg 11/25/19 18:00 Xarelto PO DAILY@1800 [facility] Sacubitril/Valsartan 1 tab 11/24/19 10:00 11/25/19 10:19 Entresto 24 Mg-26 Mg Tablet PO 1 tab BID SOREN Administration Spironolactone 25 mg 11/24/19 10:00 11/25/19 10:19 Aldactone - PO 25 mg BID SOREN Administration Vital Signs Period Temp Pulse Resp BP Sys/Khanna Pulse Ox Last 24 Hr 97.2 F-98.6 F 74-107 18-20 110-157/64-84 98-100 Constitutional: Yes: No Distress, Calm Eyes: Yes: Conjunctiva Clear, EOM Intact HENT: Yes: Atraumatic, Normocephalic Neck: Yes: Supple, Trachea Midline Respiratory: + sommer rales at bases Gastrointestinal: Yes: Normal Bowel Sounds, Soft Cardiovascular: Yes: Tachycardia JVD: No Carotid Bruit: No PMI: Non-Displaced Heart Sounds: Yes: S1, S2 Musculoskeletal: No: Back Pain Extremities: Yes: Cool. +bandages LLE Edema: Yes Edema: trace lower ext edema bilaterallly Integumentary: No: Jaundice Neurological: Yes: Alert, Oriented Psychiatric: No: Agitated EKG: afib, rate controlled, no ischemic changes cxr: + congestive changes echo 10/2018 dilated LV, severe global hypokinesis, EF 15-20%, RV mildly reduced function, LA mod dilated, mild MAC, mild MR, mild TR, RVSP >40-50 mmHg echo 09/2019: lve, lvef 30-35, mild dec rv fcn, mild mr tele: afib, PSVT a/p: 53F h/o HTN, HLD, afib, chronic systolic HF, DM p/w sob acute on chronic systolic chf, NICM: -Likely NICM due to chronic HTN, cocaine use -pt had not followed up for ICD as planned in past and her cocaine use is a relative contraindication -recent echo 09/2019 with stable chronic findings, lvef slightly improved - acute exacerbation likely in setting of med noncompliance - hold IV lasix for ALICE as well as home spironolactone and entresto, monitor Cr -cont metoprolol AFib: - cont metoprolol, digoxin - holding xarelto for elevated INR CAD, NSTEMI: -pt presented with NSTEMI in 2018 but subsequent cath showed single vessel disease, medically managed with cardiomyopathy out of proportion to degree of CAD -no signs ACS here -cont bb, ac. statin stopped previously due to elevated lfts. cocaine use smoking - encouraged cessation
--- NOTE | 2019-11-25 12:23 | CON.NEP ---
Consult Consult Specialty:: Nephrology Referred by:: medicine Reason for Consultation:: ALICE - History of Present Illness Chief Complaint: Shortness of breath History of Present Illness: This is a 54 year old woman with history of systolic heart failure, substance abuse, hypertension who presented with shortness of breath and admitted with CHF now with rising Cr. Seen and examined at the bedside. Awake and alert. Still reports shortness of breath. No cough. No fever or chills. legs remain swollen. Making urine. tolerating meals. No flank pain. No NSAID use. + leg swelling. - History Source History Provided By: Patient Limitations to Obtaining History: No Limitations - Past Medical History Cardio/Vascular: Yes: AFIB, CAD (NONOBSTRUCTIVE), CHF (EF 15-20%, with INC RVP,), HTN, Hyperlipdemia, Pulmonary Hypertension Pulmonary: Yes: Asthma, COPD, Sleep Apnea (LIKLEY BUT NEVER TESTED) ...LMP: 12/06/15 ...: No Psych: Yes: Anxiety Musculoskeletal: Yes: Chronic low back pain, Other (Other (right knee with healed scar, mild bilateral edema, stiffness, moves with difficulty)) Endocrine: Yes: Diabetes Mellitus - Past Surgical History Past Surgical History: Yes: Cholecystectomy, (3), Joint Replacement (LEFT KNEE) - Alcohol/Substance Use Hx Alcohol Use: No History of Substance Use: reports: Cocaine - Smoking History Smoking history: Never smoked Have you smoked in the past 12 months: No Aproximately how many cigarettes per day: 10 If you are a former smoker, when did you quit?: 2019 - Social History ADL: Independent History of Recent Travel: No Home Medications - Allergies Allergies/Adverse Reactions: Allergies Allergy/AdvReac Type Severity Reaction Status Date / Time amoxicillin trihydrate Allergy Intermediate Swelling Verified 11/23/19 19:15 [From Augmentin] potassium clavulanate Allergy Intermediate Swelling Verified 11/23/19 19:15 [From Augmentin] amoxicillin Allergy Verified 11/23/19 19:15 - Home Medications Home Medications: Ambulatory Orders Loratadine 10 mg PO DAILY PRN 06/30/19 Cholecalciferol (Vitamin D3) [Vitamin D3 -] 50,000 unit PO WEEKLY 09/16/19 Fluticasone Propion/Salmeterol [Wixela 500-50 Inhub] 1 inhaler IN BID 09/16/19 Insulin Glargine,Hum.rec.anlog [Basaglar Kwikpen U-100] 38 unit SQ HS 09/16/19 Collagenase Clostridium Hist. [Santyl -] 1 applic TP DAILY #1 tube 10/17/19 Docusate Sodium [Colace -] 100 mg PO TID #90 capsule 10/17/19 Montelukast Sodium [Singulair] 10 mg PO HS #30 tablet 10/17/19 Pantoprazole Sodium [Protonix -] 40 mg PO DAILY #30 tab 10/17/19 Rivaroxaban [Xarelto -] 20 mg PO DAILY #30 tablet 10/17/19 Sacubitril/Valsartan [Entresto 24 mg-26 mg Tablet] 1 tab PO BID #60 tablet 10/17/19 Spironolactone [Aldactone -] 25 mg PO BID #60 tablet 10/17/19 Furosemide [Lasix -] 60 mg PO BID@0600,1400 10/27/19 Metoprolol Succinate [Toprol Xl] 25 mg PO BID 11/06/19 Digoxin [Lanoxin -] 0.125 mg PO DAILY #30 tablet 11/08/19 Insulin Sliding Scale [Novolog Vial Sliding Scale -] 18 unit SQ ASDIR 11/08/19 Liraglutide [Victoza -] 1.2 mg SQ DAILY 11/08/19 Family Medical History Family History: Unremarkable Review of Systems - Review of Systems Constitutional: reports: No Symptoms Eyes: reports: No Symptoms HENT: reports: No Symptoms Neck: reports: No Symptoms Cardiovascular: reports: Edema, Shortness of Breath. denies: Chest Pain, Palpitations Respiratory: reports: SOB, SOB on Exertion. denies: Cough, Orthopnea Gastrointestinal: reports: No Symptoms Genitourinary: reports: No Symptoms Musculoskeletal: reports: No Symptoms Integumentary: reports: No Symptoms Neurological: reports: No Symptoms Endocrine: reports: No Symptoms Nephrology Consult - Height Height: 5 ft 6 in - Weight Weight: 108.046 kg - BMI Body Mass Index (BMI): 38.4 - Lab Results CBC,BMP: CBC, BMP 11/25/19 05:58 11/25/19 05:58 Anion Gap: Anion Gap Anion Gap 13 MMOL/L (8-16) 11/25/19 05:58 - Imaging Chest X-ray: Report Reviewed, Image Reviewed - Physical Examination Vital Signs: Vital Signs Temperature 97.6 F 11/25/19 10:00 Pulse Rate 74 11/25/19 10:19 Respiratory Rate 18 11/25/19 10:00 Blood Pressure 110/70 11/25/19 10:00 O2 Sat by Pulse Oximetry (%) 100 11/25/19 10:00 Constitutional: Yes: No Distress, Calm Eyes: Yes: Conjunctiva Clear HENT: Yes: Atraumatic Neck: Yes: Supple Cardiovascular: Yes: Regular Rate and Rhythm Respiratory: Yes: Regular, CTA Bilaterally. No: On Nasal O2, Rales, Rhonchi, SOB Gastrointestinal: Yes: Soft, Abdomen, Obese. No: Tenderness Edema: Yes Edema: LLE: 2+, RLE: 2+ Neurological: Yes: Alert, Oriented Assessment/Plan 54 year old woman with history of systolic heart failure, substance abuse, hypertension who presented with shortness of breath and admitted with CHF now with rising Cr. 1. Acute kidney injury 2. Systolic heart failure 3. Hypertension 4. Substance abuse Elevation in serum Cr likely due hemodynamic effect/renal hypopofusion in setting of diuretics/ARB/K-sparing diuretics Agree with holding above agents for now. Can consider restarting Lasix first to achieve euvolemic and then starting Entresto/Aldactone Check urine studies BP is at goal Cardiology follow up Thank you Cachorro Isaac DO
--- NOTE | 2019-11-25 12:37 | PN ---
Progress Note, Physician History of Present Illness: stable swelling decreasing pain wound looks good - Current Medication List Current Medications: Active Medications Digoxin (Lanoxin -) 0.125 mg PO DAILY [facility] Last Admin: 11/25/19 10:19 Dose: 0.125 mg Documented by: Furosemide (Lasix Injection -) 40 mg IVPUSH BID [facility] Last Admin: 11/25/19 10:19 Dose: 40 mg Documented by: Insulin Aspart (Novolog Vial Sliding Scale -) 1 vial SQ [facility]; Protocol Last Admin: 11/25/19 11:43 Dose: 2 units Documented by: Loratadine (Claritin -) 10 mg PO DAILY PRN PRN Reason: ALLERGIES Metoprolol Succinate (Toprol Xl -) 25 mg PO BID [facility] Last Admin: 11/25/19 10:19 Dose: 25 mg Documented by: Montelukast Sodium (Singulair -) 10 mg PO [facility] Last Admin: 11/24/19 21:46 Dose: 10 mg Documented by: Pantoprazole Sodium (Protonix -) 40 mg PO DAILY [facility] Last Admin: 11/25/19 10:19 Dose: 40 mg Documented by: Rivaroxaban (Xarelto) 20 mg PO DAILY@1800 [facility] Sacubitril/Valsartan (Entresto 24 Mg-26 Mg Tablet) 1 tab PO BID [facility] Last Admin: 11/25/19 10:19 Dose: 1 tab Documented by: Spironolactone (Aldactone -) 25 mg PO BID [facility] Last Admin: 11/25/19 10:19 Dose: 25 mg Documented by: - Objective Vital Signs: Vital Signs Temperature 97.6 F 11/25/19 10:00 Pulse Rate 74 11/25/19 10:19 Respiratory Rate 18 11/25/19 10:00 Blood Pressure 110/70 11/25/19 10:00 O2 Sat by Pulse Oximetry (%) 100 11/25/19 10:00 Constitutional: Yes: No Distress, Calm Cardiovascular: Yes: S1, S2 Respiratory: Yes: Regular, CTA Bilaterally Gastrointestinal: Yes: Normal Bowel Sounds, Soft Musculoskeletal: Yes: WNL Extremities: Yes: Other Wound/Incision: Yes: Clean/Dry, Dressing Dry and Intact Neurological: Yes: Alert, Oriented Psychiatric: Yes: Alert, Oriented Labs: CBC, BMP 11/25/19 05:58 11/25/19 05:58 INR, PTT INR 1.95 (0.83-1.09) H 11/25/19 05:58 Assessment/Plan 54 year old woman with MHx of Afib (on Xarelto), HFrEF (LVEF 15-20%), Cocaine- induced [place], BLE edema/wound, Bipolar disorder, Left knee replacement, HTN, HLD, Asthma, Insulin-treated DM, , Tobacco use and multiple admissions for "CHF exacerbation" presenting with SOB and recent cocaine use # Acute on Chronic HFrEF - non compliant - Daily wt, I/O, strict intake/Output - IV furosemide - cocaine+ve - resume HF medication per helper teacher, discussed the BB in setting of cocaine use, pt has AFib also - discussed smoking, cocaine abstinence in length, as well as diet, medication compliance - High INR will hold xarelto for today and trend Afib Cocaine abuse bipolar HTN HLD ASthma DM plan continue current mgmt rest as per the team
--- NOTE | 2019-11-25 14:58 | CONS ---
PULMONARY CONSULTATION DATE OF CONSULTATION: 11/24/2019 REFERRING PHYSICIAN: Lucy Richards MD Patient is a 54-year-old female with past medical history of congestive heart failure with reduced ejection fraction, history of aspergillosis, insulin-dependent diabetes mellitus, asthma, COPD, obesity, hypertension, atrial fibrillation, cocaine use, history of AR induced by cocaine, chronic lower extremity edema, tobacco abuse; she previously smoked 2 packs a day, currently smoking 1/2 pack a day, admitted to [facility] with complaint of 3-day history of increasing shortness of breath and dyspnea on exertion. Patient was recently hospitalized at [facility] secondary to CHF. Apparently, for the past few days, she started noticing increasing shortness of breath and dyspnea on exertion. She started taking an inhaler without any improvement. Apparently, she has been retaining fluids. Of note is apparently she was supposed to be on Lasix 60 b.i.d., but has only been taking it daily. She also has been complaining of increasing orthopnea. On admission, she was started on inhaled bronchodilators as well as IV Lasix with good clinical response. She was evaluated by Cardiology and felt that the patient had [id number] CHF. Patient apparently has not followed up for ICD placement. PAST MEDICAL HISTORY: Again includes congestive heart failure with severe global hypokinesis, ejection fraction of 15% to 20%, mildly reduced RV, cocaine abuse, hypertension, insulin-dependent diabetes mellitus, hyperlipidemia, atrial fibrillation, history of non-ST AR. SOCIAL HISTORY: Positive tobacco, positive cocaine. CURRENT MEDICATIONS: Include Entresto, Toprol, Lasix, Lanoxin, Singulair, Aldactone, Protonix, and Claritin. REVIEW OF SYSTEMS: Positive orthopnea. Positive dyspnea. No cough. No chest pain. No palpitations. Positive increasing lower extremity edema. PHYSICAL EXAMINATION: General: Patient is a well-developed and well-nourished female, awake, alert, currently in no acute distress. Vital Signs: She is afebrile. Blood pressure is 128/80. O2 saturation is 100% on room air. HEENT: Normocephalic, atraumatic. Neck: Supple. Heart: Irregular. S1, S2. Chest: A few bibasilar crackles. Abdomen: Soft. Bowel sounds are positive. Extremities: Bilateral extremity edema. LABORATORY DATA: WBC is 6, hemoglobin 10.6, hematocrit 33.8, with a platelet count of 248,000. INR is 4.58, most recently was 3.59. BUN 22, creatinine 1.2. BNP is 4135. Chest x-ray cardiomegaly, mild increased congestion. IMPRESSION: 1. Dyspnea secondary to [id number] congestive heart failure. 2. Non-ischemic cardiomyopathy with severe left ventricular dysfunction with ejection fraction at 15% to 20%. 3. Asthma. 4. Chronic obstructive pulmonary disease. 5. Hypertension. 6. Insulin-dependent diabetes mellitus. 7. Hyperlipidemia. 8. History of ST myocardial infarction, secondary to cocaine. 9. Atrial fibrillation. 10. Cocaine abuse. 11. Medication noncompliance. 12. Supratherapeutic INR. 13. Tobacco abuse. PLAN: Supplemental O2, Lasix, inhaled bronchodilators, daily weights. Monitor electrolytes, renal function. Monitor blood sugars. Obtain followup chest x-rays. Stress compliance with medications. Monitor INR. Smoking cessation counseled. SANTHOSH HASSAN M.D. [id number]
[2019-11-25] MEDS: RIVAROXABAN 20 MG TABLET PO SCH (17:02)
[2019-11-25] MEDS: traMADol HCL 50 MG TABLET PO PRN (18:07)
[2019-11-25 19:21] LABS: URINE APPEARANCE CLEAR; URINE BILIRUBIN NEGATIVE (NEGATIVE); URINE COLOR YELLOW; URINE GLUCOSE (UA) NEGATIVE (NEGATIVE); URINE KETONE NEGATIVE (NEGATIVE); URINE LEUK ESTERASE NEGATIVE (NEGATIVE); URINE NITRITE NEGATIVE (NEGATIVE); URINE PROTEIN NEGATIVE (NEGATIVE)
[2019-11-25] MEDS: MONTELUKAST NA 10 MG TABLET PO SCH (21:14)
[2019-11-26] MEDS ORDERED: ACETAMINOPHEN 1000 MG/100 ML VIAL (NON FORMULARY) IVPB ONE (00:10)
[2019-11-26] MEDS: traMADol HCL 50 MG TABLET PO PRN ×2 (06:16→19:43)
[2019-11-26] MEDS: INSULIN SLIDING SCALE (NOVOLOG) 1 VIAL SQ SCH ×4 (06:17→21:56)
[2019-11-26] MEDS: PANTOPRAZOLE 40 MG TABLET PO SCH (09:15)
[2019-11-26] MEDS: metoPROLOL SUCCINATE 25 MG TAB.SR.24H (FP) PO SCH ×2 (09:15→21:51)
[2019-11-26] MEDS: DIGOXIN 0.125 MG TABLET (FP) PO SCH (09:15)
--- NOTE | 2019-11-26 09:19 | EKG ---
Test Reason : Blood Pressure : / mmHG Vent. Rate : 060 BPM Atrial Rate : 105 BPM P-R Int : 000 ms QRS Dur : 100 ms QT Int : 414 ms P-R-T Axes : 000 107 232 degrees QTc Int : 414 ms ATRIAL FIBRILLATION LATERAL INFARCT (CITED ON OR BEFORE 23-NOV-2019) ABNORMAL ECG WHEN COMPARED WITH ECG OF 24-NOV-2019 02:52, NO SIGNIFICANT CHANGE WAS FOUND Confirmed by Pedro Rodriguez ([id number]) on 11/26/2019 9:19:06 AM Referred By: Yousif GORDON Confirmed By:Pedro Rodriguez
[2019-11-26 09:30] LABS: BASO % 1.2 % (0-2.0); EOS % 1.6 % (0-4.5); HEMATOCRIT 32.5 % (32.4-45.2); HEMOGLOBIN 10.1 GM/dL (10.7-15.3); LYMPH % 15.7 % (8-40); MCH 25.3 pg (25.7-33.7); MEAN CELL VOLUME 81.6 fl (80-96); MONO % 7.7 % (3.8-10.2); NEUT % 73.8 % (42.8-82.8); PLATELET COUNT 235 K/MM3 (134-434); RBC 3.99 M/mm3 (3.60-5.2); RDW 20.1 % (11.6-15.6); WHITE BLOOD COUNT 7.2 K/mm3 (4.0-10.0)
[2019-11-26 09:54] LABS: ALBUMIN 2.8 g/dl (3.4-5.0); BLOOD UREA NITROGEN 25.5 mg/dL (7-18); CALCIUM 8.7 mg/dL (8.5-10.1); CREATININE 1.3 mg/dL (0.55-1.3); MAGNESIUM 1.5 mg/dL (1.8-2.4); PHOSPHOROUS 3.5 mg/dL (2.5-4.9); POTASSIUM 3.8 mmol/L (3.5-5.1); TOT PROT 6.1 g/dl (6.4-8.2)
--- NOTE | 2019-11-26 11:25 | PN ---
Progress Note (short form) - Note Progress Note: s: complains of leg pain bilaterally. no chest pain,sob palps, dizziness Current Medications Generic Name Dose Route Start Last Admin Trade Name Santa PRN Reason Stop Dose Admin Digoxin 0.125 mg 11/24/19 10:00 11/26/19 09:15 Lanoxin - PO 0.125 mg DAILY [facility]OR[facility] Administration Furosemide 60 mg 11/26/19 14:00 Lasix - PO BID@0600,1400 SOREN Magnesium Sulfate 2 gm in 50 mls @ 50 mls/hr 11/26/19 11:30 Magnesium Sulf 2 G/50 Ml Bag IVPB 11/26/19 12:29 ONCE ONE Insulin Aspart 1 vial 11/24/19 07:00 11/26/19 06:17 Novolog Vial Sliding Scale - SQ 6 units ACHS SOREN Administration Protocol Loratadine 10 mg 11/24/19 02:19 Claritin - PO DAILY PRN ALLERGIES Metoprolol Succinate 25 mg 11/24/19 13:15 11/26/19 09:15 Toprol Xl - PO 25 mg BID SOREN Administration Montelukast Sodium 10 mg 11/24/19 22:00 11/25/19 21:14 Singulair - PO 10 mg HS [facility]OREN Administration Pantoprazole Sodium 40 mg 11/24/19 10:00 11/26/19 09:15 Protonix - PO 40 mg DAILY [facility]OR[facility] Administration Rivaroxaban 20 mg 11/25/19 18:00 11/25/19 17:02 Xarelto PO 20 mg DAILY@1800 SOR[facility] Administration Sacubitril/Valsartan 1 tab 11/24/19 10:00 11/25/19 10:19 Entresto 24 Mg-26 Mg Tablet PO 1 tab BID [facility] Administration Spironolactone 25 mg 11/24/19 10:00 11/25/19 10:19 Aldactone - PO 25 mg BID [facility] Administration Tramadol HCl 50 mg 11/25/19 17:49 11/26/19 06:16 Ultram - PO 50 mg Q12H PRN Administration PAIN LEVEL 6-10 Vital Signs Period Temp Pulse Resp BP Sys/Khanna Pulse Ox Last 24 Hr 97.2 F-98.4 F 75-93 20-20 100-134/51-86 95-100 Constitutional: Yes: No Distress, Calm Eyes: Yes: Conjunctiva Clear, EOM Intact HENT: Yes: Atraumatic, Normocephalic Neck: Yes: Supple, Trachea Midline Respiratory: cta bl nl eff Gastrointestinal: Yes: Normal Bowel Sounds, Soft Cardiovascular: Yes: Tachycardia JVD: No Heart Sounds: Yes: S1, S2 Musculoskeletal: No: Back Pain Extremities: Yes: Cool. +bandages LLE Edema: trace lower ext edema bilaterallly Integumentary: No: Jaundice diaphoresis Neurological: Yes: Alert, Oriented Psychiatric: No: Agitated CBC, BMP 11/26/19 08:55 11/26/19 06:00 EKG: afib, rate controlled, no ischemic changes cxr: + congestive changes echo 10/2018 dilated LV, severe global hypokinesis, EF 15-20%, RV mildly reduced function, LA mod dilated, mild MAC, mild MR, mild TR, RVSP >40-50 mmHg echo 09/2019: lve, lvef 30-35, mild dec rv fcn, mild mr tele: afib,rate ok a/p: 53F h/o HTN, HLD, afib, chronic systolic HF, DM p/w sob acute on chronic systolic chf, NICM: -Likely NICM due to chronic HTN, cocaine use -pt had not followed up for ICD as planned in past and her continued cocaine use is a relative contraindication -recent echo 09/2019 with stable chronic findings, lvef slightly improved -acute exacerbation likely in setting of med noncompliance -held IV lasix for ALICE as well as home spironolactone and entresto, monitor Cr-->cr improved today, resumed po meds. -cont metoprolol AFib: - cont metoprolol, digoxin - holding xarelto for elevated INR CAD, NSTEMI: -pt presented with NSTEMI in 2018 but subsequent cath showed single vessel disease, medically managed with cardiomyopathy out of proportion to degree of CAD -no signs ACS here -cont bb, ac. statin stopped previously due to elevated lfts. cocaine use, smoking: - encouraged cessation
[2019-11-26] MEDS ORDERED: MAGNESIUM SULFATE IN WATER 2 GM/50 ML IVPB IVPB ONE (11:30)
--- NOTE | 2019-11-26 11:52 | PN ---
Progress Note, Physician History of Present Illness: stable improving - Current Medication List Current Medications: Active Medications Digoxin (Lanoxin -) 0.125 mg PO DAILY [facility] Last Admin: 11/26/19 09:15 Dose: 0.125 mg Documented by: Furosemide (Lasix -) 60 mg PO BID@0600,1400 [facility] Magnesium Sulfate (Magnesium Sulf 2 G/50 Ml Bag) 2 gm in 50 mls @ 50 mls/hr IVPB ONCE ONE Stop: 11/26/19 12:29 Insulin Aspart (Novolog Vial Sliding Scale -) 1 vial SQ [facility]; Protocol Last Admin: 11/26/19 06:17 Dose: 6 units Documented by: Loratadine (Claritin -) 10 mg PO DAILY PRN PRN Reason: ALLERGIES Metoprolol Succinate (Toprol Xl -) 25 mg PO BID [facility] Last Admin: 11/26/19 09:15 Dose: 25 mg Documented by: Montelukast Sodium (Singulair -) 10 mg PO HS [facility] Last Admin: 11/25/19 21:14 Dose: 10 mg Documented by: Pantoprazole Sodium (Protonix -) 40 mg PO DAILY [facility] Last Admin: 11/26/19 09:15 Dose: 40 mg Documented by: Rivaroxaban (Xarelto) 20 mg PO DAILY@1800 [facility] Last Admin: 11/25/19 17:02 Dose: 20 mg Documented by: Sacubitril/Valsartan (Entresto 24 Mg-26 Mg Tablet) 1 tab PO BID [facility] Last Admin: 11/25/19 10:19 Dose: 1 tab Documented by: Spironolactone (Aldactone -) 25 mg PO BID [facility] Last Admin: 11/25/19 10:19 Dose: 25 mg Documented by: Tramadol HCl (Ultram -) 50 mg PO Q12H PRN PRN Reason: PAIN LEVEL 6-10 Last Admin: 11/26/19 06:16 Dose: 50 mg Documented by: - Objective Vital Signs: Vital Signs Temperature 97.6 F 11/26/19 09:12 Pulse Rate 75 11/26/19 09:15 Respiratory Rate 20 11/26/19 09:12 Blood Pressure 100/64 11/26/19 09:12 O2 Sat by Pulse Oximetry (%) 95 11/26/19 09:12 Constitutional: Yes: No Distress, Calm Cardiovascular: Yes: S1, S2 Respiratory: Yes: Regular, CTA Bilaterally Gastrointestinal: Yes: Normal Bowel Sounds, Soft Musculoskeletal: Yes: WNL Extremities: Yes: WNL Neurological: Yes: Alert, Oriented Psychiatric: Yes: Alert, Oriented Labs: CBC, BMP 11/26/19 08:55 11/26/19 06:00 INR, PTT INR 1.95 (0.83-1.09) H 11/25/19 05:58 Assessment/Plan 54 year old woman with MHx of Afib (on Xarelto), HFrEF (LVEF 15-20%), Cocaine-in duced [place], BLE edema/wound, Bipolar disorder, Left knee replacement, HTN, HLD, Asthma, Insulin-treated DM, , Tobacco use and multiple admissions for "CHF exacerbation" presenting with SOB and recent cocaine use # Acute on Chronic HFrEF - non compliant - Daily wt, I/O, strict intake/Output - IV furosemide - cocaine+ve - resume HF medication per rattling machine tender, discussed the BB in setting of cocaine use, pt has AFib also - discussed smoking, cocaine abstinence in length, as well as diet, medication compliance - High INR will hold xarelto for today and trend Afib Cocaine abuse bipolar HTN HLD ASthma DM plan continue current mgmt rest as per the team
--- NOTE | 2019-11-26 12:49 | PN ---
Progress Note (short form) - Note Progress Note: PULMONARY Still with shortness of breath, leg swelling. Vital Signs Period Temp Pulse Resp BP Sys/Khanna Pulse Ox Last 24 Hr 97.2 F-98.4 F 75-93 20-20 100-134/51-86 95-100 Gen: tachypneic with exertion Heart: RRR Lung: decreased breath sounds at the bases Abd: soft, nontender Ext: + edema CBC, BMP 11/26/19 08:55 11/26/19 06:00 Active Medications Digoxin (Lanoxin -) 0.125 mg PO DAILY [facility] Last Admin: 11/26/19 09:15 Dose: 0.125 mg Documented by: Furosemide (Lasix -) 60 mg PO BID@0600,1400 [facility] Insulin Aspart (Novolog Vial Sliding Scale -) 1 vial SQ [facility]; Protocol Last Admin: 11/26/19 12:19 Dose: 6 units Documented by: Loratadine (Claritin -) 10 mg PO DAILY PRN PRN Reason: ALLERGIES Metoprolol Succinate (Toprol Xl -) 25 mg PO BID [facility] Last Admin: 11/26/19 09:15 Dose: 25 mg Documented by: Montelukast Sodium (Singulair -) 10 mg PO HS [facility] Last Admin: 11/25/19 21:14 Dose: 10 mg Documented by: Pantoprazole Sodium (Protonix -) 40 mg PO DAILY [facility] Last Admin: 11/26/19 09:15 Dose: 40 mg Documented by: Rivaroxaban (Xarelto) 20 mg PO DAILY@1800 [facility] Last Admin: 11/25/19 17:02 Dose: 20 mg Documented by: Sacubitril/Valsartan (Entresto 24 Mg-26 Mg Tablet) 1 tab PO BID [facility] Last Admin: 11/25/19 10:19 Dose: 1 tab Documented by: Spironolactone (Aldactone -) 25 mg PO BID [facility] Last Admin: 11/25/19 10:19 Dose: 25 mg Documented by: Tramadol HCl (Ultram -) 50 mg PO Q12H PRN PRN Reason: PAIN LEVEL 6-10 Last Admin: 11/26/19 06:16 Dose: 50 mg Documented by: A/P Acute on Chronic Systolic Heart Failure Asthma/COPD Atrial Fibrillation CAD HTN DM Hyperlipidemia Smoker - continue lasix, aldactone - monitor urine output, creatinine - rate control - continue anticoagulation - O2 to keep SpO2 >90% - inhaled bronchodilators - smoking cessation
--- NOTE | 2019-11-26 13:03 | PN ---
Physical Exam: SUBJECTIVE: Patient seen and examined OBJECTIVE: Vital Signs Period Temp Pulse Resp BP Sys/Khanna Pulse Ox Last 24 Hr 97.2 F-98.4 F 75-93 20-20 100-134/51-86 95-100 GENERAL: AAOx3, speaking in full sentences HEENT NC/aT, MMM, neck supple LUNGS: CTAB, no crackles or wheezing HEART: S1, S2+, JOSIAS+ ABDOMEN: Soft, nontender, nondistended, normoactive bowel sounds, no guarding, no rebound, no hepatosplenomegaly, no masses. EXTREMITIES: 2+ dorsal pedal pulses, reported: RLE venous stasis ulcer stage 2-3 with good granulation tissue, no pus appreciated, wound open with dressing. NEUROLOGICAL: Normal speech, gait not observed. PSYCH: Normal mood, normal affect. SKIN: Warm, dry, normal turgor Laboratory Results - last 24 hr 11/25/19 11/25/19 11/25/19 05:58 12:30 16:47 WBC RBC Hgb Hct MCV MCH MCHC RDW Plt Count MPV Absolute Neuts (auto) Neutrophils % Lymphocytes % Monocytes % Eosinophils % Basophils % Nucleated RBC % Sodium 138 Potassium 4.0 Chloride 102 Carbon Dioxide 24 Anion Gap 13 BUN 27.0 H Creatinine 1.5 H Est GFR (CKD-EPI)AfAm 45.30 Est GFR (CKD-EPI)NonAf 39.09 POC Glucometer 253 Random Glucose 222 H Calcium 9.5 Phosphorus Magnesium Total Bilirubin 1.0 Direct Bilirubin 0.6 H AST 29 ALT 43 Alkaline Phosphatase 199 H Total Protein 6.9 Albumin 3.3 L Urine Color Urine Appearance Urine pH Ur Specific [place] Urine Protein Urine Glucose (UA) Urine Ketones Urine Blood Urine Nitrite Urine Bilirubin Urine Urobilinogen Ur Leukocyte Esterase Ur Random Creatinine Ur Random Urea Nitrogn 184 L 11/25/19 11/25/19 11/25/19 19:10 19:10 20:49 WBC RBC Hgb Hct MCV MCH MCHC RDW Plt Count MPV Absolute Neuts (auto) Neutrophils % Lymphocytes % Monocytes % Eosinophils % Basophils % Nucleated RBC % Sodium Potassium Chloride Carbon Dioxide Anion Gap BUN Creatinine Est GFR (CKD-EPI)AfAm Est GFR (CKD-EPI)NonAf POC Glucometer 142 Random Glucose Calcium Phosphorus Magnesium Total Bilirubin Direct Bilirubin AST ALT Alkaline Phosphatase Total Protein Albumin Urine Color Yellow Urine Appearance Clear Urine pH 6.0 Ur Specific [place] 1.009 L Urine Protein Negative Urine Glucose (UA) Negative Urine Ketones Negative Urine Blood Negative Urine Nitrite Negative Urine Bilirubin Negative Urine Urobilinogen 1.0 Ur Leukocyte Esterase Negative Ur Random Creatinine 23.0 L Ur Random Urea Nitrogn 11/26/19 11/26/19 11/26/19 05:24 06:00 08:55 WBC 7.2 RBC 3.99 Hgb 10.1 L Hct 32.5 MCV 81.6 MCH 25.3 L MCHC 31.0 L RDW 20.1 H Plt Count 235 MPV 9.0 Absolute Neuts (auto) 5.3 Neutrophils % 73.8 D Lymphocytes % 15.7 D Monocytes % 7.7 Eosinophils % 1.6 Basophils % 1.2 Nucleated RBC % 0 Sodium 140 Potassium 3.8 Chloride 104 Carbon Dioxide 26 Anion Gap 10 BUN 25.5 H Creatinine 1.3 Est GFR (CKD-EPI)AfAm 53.86 Est GFR (CKD-EPI)NonAf 46.47 POC Glucometer 271 Random Glucose 275 H Calcium 8.7 Phosphorus 3.5 Magnesium 1.5 L Total Bilirubin 1.0 Direct Bilirubin AST 22 ALT 33 Alkaline Phosphatase 150 H Total Protein 6.1 L Albumin 2.8 L Urine Color Urine Appearance Urine pH Ur Specific [place] Urine Protein Urine Glucose (UA) Urine Ketones Urine Blood Urine Nitrite Urine Bilirubin Urine Urobilinogen Ur Leukocyte Esterase Ur Random Creatinine Ur Random Urea Nitrogn 11/26/19 12:17 WBC RBC Hgb Hct MCV MCH MCHC RDW Plt Count MPV Absolute Neuts (auto) Neutrophils % Lymphocytes % Monocytes % Eosinophils % Basophils % Nucleated RBC % Sodium Potassium Chloride Carbon Dioxide Anion Gap BUN Creatinine Est GFR (CKD-EPI)AfAm Est GFR (CKD-EPI)NonAf POC Glucometer 262 Random Glucose Calcium Phosphorus Magnesium Total Bilirubin Direct Bilirubin AST ALT Alkaline Phosphatase Total Protein Albumin Urine Color Urine Appearance Urine pH Ur Specific [place] Urine Protein Urine Glucose (UA) Urine Ketones Urine Blood Urine Nitrite Urine Bilirubin Urine Urobilinogen Ur Leukocyte Esterase Ur Random Creatinine Ur Random Urea Nitrogn Active Medications Generic Name Dose Route Start Last Admin Trade Name Freq PRN Reason Stop Dose Admin Digoxin 0.125 mg 11/24/19 10:00 11/26/19 09:15 Lanoxin - PO 0.125 mg DAILY SOREN Administration Furosemide 60 mg 11/26/19 14:00 Lasix - PO BID@0600,1400 [facility] Insulin Aspart 1 vial 08/08/20 07:00 11/26/19 12:19 Novolog Vial Sliding Scale - SQ 6 units ACHS SOREN Administration Protocol Loratadine 10 mg 11/24/19 02:19 Claritin - PO DAILY PRN ALLERGIES Metoprolol Succinate 25 mg 11/24/19 13:15 11/26/19 09:15 Toprol Xl - PO 25 mg BID SOREN Administration Montelukast Sodium 10 mg 11/24/19 22:00 11/25/19 21:14 Singulair - PO 10 mg HS SOREN Administration Pantoprazole Sodium 40 mg 11/24/19 10:00 11/26/19 09:15 Protonix - PO 40 mg DAILY SOREN Administration Rivaroxaban 20 mg 11/25/19 18:00 11/25/19 17:02 Xarelto PO 20 mg DAILY@1800 SOREN Administration Sacubitril/Valsartan 1 tab 11/24/19 10:00 11/25/19 10:19 Entresto 24 Mg-26 Mg Tablet PO 1 tab BID SOREN Administration Spironolactone 25 mg 11/24/19 10:00 11/25/19 10:19 Aldactone - PO 25 mg BID SOREN Administration Tramadol HCl 50 mg 11/25/19 17:49 11/26/19 06:16 Ultram - PO 50 mg Q12H PRN Administration PAIN LEVEL 6-10 ASSESSMENT/PLAN: Patient is a 54 year odl female with history of HFrEf (EF 30-35%), Afib (on Xarelto), diabetes mellitus (insulin dependent). hypertension, hyperlipidemia, asthma, cocaine use disorder with concomitant NSTEMI, chronic left lower extre mity wound presents with complaint of shortness of breath. #CHF exacerbation -Likely secondary to medication non adherence; patient endorses taking only half of her diuretic dose since hospital discharge two week ago. -Chest radiograph does not reveal acute infiltrates -Cardiac ECHO (09/2019) revealed moderate global hypokinesis of left ventricle, with mild dilation; EF 30-35%. -EKG reveals afib with PVCs at 86BPM -Initial troponin 0.05. Will trend -c/w Spironolactone, Entresto,, Metoprolol, Digoxin, Furosemide -Telemetry monitoring -Strict intake/ output. Daily weights -Fluid restriction -Cardiology consult (Dr. Oscar) -Wound care consult appreciated for lower extremity chronic wounds -ID Consult appreciated, observing off Abx. #Asthma -Patient admits to mold, and roaches within her dwelling. Concern for superimposed asthma exacerbation given possible environmental triggers. -DuoNebs Q4 hours -Pulmonology consult (Dr. Noe) -Social work consult given concerning living conditions. #Afib -Continue rate control with Toprol. -INR noted to be supratherapeutic; patient endorses compliance with Xarelo, and denies takang any other anticoagulants. Denies any recent bleeding. -Continue Xarelto for now, monitor stool for occult blood- may need to be discontinued if bleeding. -Follow INR #Diabetes mellitus -HbA1c 10.2 (09/2019) -Insulin slidicng scale ACHS -Fingerstick blood glucose ACHS -Consider reinstating Levemir at reduced dose based on in-hospital fingersticks . #FEN -No IV fluids -Follow BMP -Sodium restricted, diabetic diet Prophylaxis -On Xarelto Disposition -c/w telemetry Visit type - Emergency Visit Emergency Visit: Yes ED Registration Date: 11/23/19 Care time: The patient presented to the Emergency Department on the above date and was hospitalized for further evaluation of their emergent condition. - New Patient This patient is new to me today: Yes Date on this admission: 11/26/19 - Critical Care Critical Care patient: No - Discharge Referral Referred to [facility] Med P.C[facility] Yes Physician Referral: Pablo Will DO ([facility]) ATTENDING PHYSICIAN STATEMENT I saw and evaluated the patient. I reviewed the resident's note and discussed the case with the resident. I agree with the resident's findings and plan as documented. SUBJECTIVE: OBJECTIVE: ASSESSMENT AND PLAN:
--- NOTE | 2019-11-26 13:18 | PN ---
Progress Note, Physician Chief Complaint: shortness of breath History of Present Illness: patient seen and examined at the bedside. Has some improvement in shortness of breath but does have some dyspnea at times. She denies any chest pain, cough, abdominal pain, nausea, vomiting, diarrhea. Making urine. - Current Medication List Current Medications: Active Medications Digoxin (Lanoxin -) 0.125 mg PO DAILY [facility] Last Admin: 11/26/19 09:15 Dose: 0.125 mg Documented by: Furosemide (Lasix -) 60 mg PO BID@0600,1400 [facility] Insulin Aspart (Novolog Vial Sliding Scale -) 1 vial SQ [facility]; Protocol Last Admin: 11/26/19 12:19 Dose: 6 units Documented by: Loratadine (Claritin -) 10 mg PO DAILY PRN PRN Reason: ALLERGIES Metoprolol Succinate (Toprol Xl -) 25 mg PO BID [facility] Last Admin: 11/26/19 09:15 Dose: 25 mg Documented by: Montelukast Sodium (Singulair -) 10 mg PO HS [facility] Last Admin: 11/25/19 21:14 Dose: 10 mg Documented by: Pantoprazole Sodium (Protonix -) 40 mg PO DAILY [facility] Last Admin: 11/26/19 09:15 Dose: 40 mg Documented by: Rivaroxaban (Xarelto) 20 mg PO DAILY@1800 [facility] Last Admin: 11/25/19 17:02 Dose: 20 mg Documented by: Sacubitril/Valsartan (Entresto 24 Mg-26 Mg Tablet) 1 tab PO BID [facility] Last Admin: 11/25/19 10:19 Dose: 1 tab Documented by: Spironolactone (Aldactone -) 25 mg PO BID [facility] Last Admin: 11/25/19 10:19 Dose: 25 mg Documented by: Tramadol HCl (Ultram -) 50 mg PO Q12H PRN PRN Reason: PAIN LEVEL 6-10 Last Admin: 11/26/19 06:16 Dose: 50 mg Documented by: - Objective Vital Signs: Vital Signs Temperature 97.6 F 11/26/19 09:12 Pulse Rate 75 11/26/19 09:15 Respiratory Rate 20 11/26/19 09:12 Blood Pressure 100/64 11/26/19 09:12 O2 Sat by Pulse Oximetry (%) 95 11/26/19 09:12 Constitutional: Yes: No Distress, Calm Eyes: Yes: Conjunctiva Clear HENT: Yes: Atraumatic Neck: Yes: Supple Cardiovascular: Yes: Regular Rate and Rhythm Respiratory: Yes: Regular, Diminished. No: Rales, Rhonchi Gastrointestinal: Yes: Soft Genitourinary: No: Bladder Distention Edema: Yes Edema: LLE: Trace, RLE: Trace Labs: CBC, BMP 11/26/19 08:55 11/26/19 06:00 INR, PTT INR 1.95 (0.83-1.09) H 11/25/19 05:58 Assessment/Plan 54 year old woman with history of systolic heart failure, substance abuse, hypertension who presented with shortness of breath and admitted with CHF now with rising Cr. 1. Acute kidney injury 2. Systolic heart failure 3. Hypertension 4. Substance abuse serum creatinine improved to 1.3. Patient restarted on entresto, spironolactone and Lasix. Trend renal function and electrolytes daily. Cardiology follow-up. Thank you Cachorro Isaac DO
--- NOTE | 2019-11-26 13:27 | PN ---
Physical Exam: SUBJECTIVE: Patient seen and examined at bedside admitted for CHFE 2/2 cocaine abuse, fluid overload, now denies CP c/o R leg pain 2/2 stasis ulcer. VSS. OBJECTIVE: Vital Signs Period Temp Pulse Resp BP Sys/Khanna Pulse Ox Last 24 Hr 97.2 F-98.4 F 75-93 20-20 100-134/51-86 95-100 GENERAL: AAOx3, speaking in full sentences HEENT NC/aT, dry MM, neck supple LUNGS: CTAB, no crackles or wheezing HEART: S1, S2+, JOSIAS+ ABDOMEN: Soft, nontender, nondistended, normoactive bowel sounds, no guarding, no rebound, no hepatosplenomegaly, no masses. EXTREMITIES: 2+ pulses, RLE venous stasis ulcer stage 2-3 with good granulation tissue, no pus appreciated, wound open with dressing. NEUROLOGICAL: Cranial nerves II through XII grossly intact. Normal speech, gait not observed. PSYCH: Normal mood, normal affect. SKIN: Warm, dry, normal turgor, no rashes or lesions noted Laboratory Results - last 24 hr 11/25/19 11/25/19 11/25/19 05:58 12:30 16:47 WBC RBC Hgb Hct MCV MCH MCHC RDW Plt Count MPV Absolute Neuts (auto) Neutrophils % Lymphocytes % Monocytes % Eosinophils % Basophils % Nucleated RBC % Sodium 138 Potassium 4.0 Chloride 102 Carbon Dioxide 24 Anion Gap 13 BUN 27.0 H Creatinine 1.5 H Est GFR (CKD-EPI)AfAm 45.30 Est GFR (CKD-EPI)NonAf 39.09 POC Glucometer 253 Random Glucose 222 H Calcium 9.5 Phosphorus Magnesium Total Bilirubin 1.0 Direct Bilirubin 0.6 H AST 29 ALT 43 Alkaline Phosphatase 199 H Total Protein 6.9 Albumin 3.3 L Urine Color Urine Appearance Urine pH Ur Specific [place] Urine Protein Urine Glucose (UA) Urine Ketones Urine Blood Urine Nitrite Urine Bilirubin Urine Urobilinogen Ur Leukocyte Esterase Ur Random Creatinine Ur Random Urea Nitrogn 184 L 11/25/19 11/25/19 11/25/19 19:10 19:10 20:49 WBC RBC Hgb Hct MCV MCH MCHC RDW Plt Count MPV Absolute Neuts (auto) Neutrophils % Lymphocytes % Monocytes % Eosinophils % Basophils % Nucleated RBC % Sodium Potassium Chloride Carbon Dioxide Anion Gap BUN Creatinine Est GFR (CKD-EPI)AfAm Est GFR (CKD-EPI)NonAf POC Glucometer 142 Random Glucose Calcium Phosphorus Magnesium Total Bilirubin Direct Bilirubin AST ALT Alkaline Phosphatase Total Protein Albumin Urine Color Yellow Urine Appearance Clear Urine pH 6.0 Ur Specific [place] 1.009 L Urine Protein Negative Urine Glucose (UA) Negative Urine Ketones Negative Urine Blood Negative Urine Nitrite Negative Urine Bilirubin Negative Urine Urobilinogen 1.0 Ur Leukocyte Esterase Negative Ur Random Creatinine 23.0 L Ur Random Urea Nitrogn 11/26/19 11/26/19 11/26/19 05:24 06:00 08:55 WBC 7.2 RBC 3.99 Hgb 10.1 L Hct 32.5 MCV 81.6 MCH 25.3 L MCHC 31.0 L RDW 20.1 H Plt Count 235 MPV 9.0 Absolute Neuts (auto) 5.3 Neutrophils % 73.8 D Lymphocytes % 15.7 D Monocytes % 7.7 Eosinophils % 1.6 Basophils % 1.2 Nucleated RBC % 0 Sodium 140 Potassium 3.8 Chloride 104 Carbon Dioxide 26 Anion Gap 10 BUN 25.5 H Creatinine 1.3 Est GFR (CKD-EPI)AfAm 53.86 Est GFR (CKD-EPI)NonAf 46.47 POC Glucometer 271 Random Glucose 275 H Calcium 8.7 Phosphorus 3.5 Magnesium 1.5 L Total Bilirubin 1.0 Direct Bilirubin AST 22 ALT 33 Alkaline Phosphatase 150 H Total Protein 6.1 L Albumin 2.8 L Urine Color Urine Appearance Urine pH Ur Specific [place] Urine Protein Urine Glucose (UA) Urine Ketones Urine Blood Urine Nitrite Urine Bilirubin Urine Urobilinogen Ur Leukocyte Esterase Ur Random Creatinine Ur Random Urea Nitrogn 11/26/19 12:17 WBC RBC Hgb Hct MCV MCH MCHC RDW Plt Count MPV Absolute Neuts (auto) Neutrophils % Lymphocytes % Monocytes % Eosinophils % Basophils % Nucleated RBC % Sodium Potassium Chloride Carbon Dioxide Anion Gap BUN Creatinine Est GFR (CKD-EPI)AfAm Est GFR (CKD-EPI)NonAf POC Glucometer 262 Random Glucose Calcium Phosphorus Magnesium Total Bilirubin Direct Bilirubin AST ALT Alkaline Phosphatase Total Protein Albumin Urine Color Urine Appearance Urine pH Ur Specific [place] Urine Protein Urine Glucose (UA) Urine Ketones Urine Blood Urine Nitrite Urine Bilirubin Urine Urobilinogen Ur Leukocyte Esterase Ur Random Creatinine Ur Random Urea Nitrogn Active Medications Generic Name Dose Route Start Last Admin Trade Name Freq PRN Reason Stop Dose Admin Digoxin 0.125 mg 11/24/19 10:00 11/26/19 09:15 Lanoxin - PO 0.125 mg DAILY SOREN Administration Furosemide 60 mg 11/26/19 14:00 Lasix - PO BID@0600,1400 [facility] Insulin Aspart 1 vial 11/24/19 07:00 11/26/19 12:19 Novolog Vial Sliding Scale - SQ 6 units ACHS SOREN Administration Protocol Loratadine 10 mg 11/24/19 02:19 Claritin - PO DAILY PRN ALLERGIES Metoprolol Succinate 25 mg 11/24/19 13:15 11/26/19 09:15 Toprol Xl - PO 25 mg BID SOREN Administration Montelukast Sodium 10 mg 11/24/19 22:00 11/25/19 21:14 Singulair - PO 10 mg HS SOREN Administration Pantoprazole Sodium 40 mg 11/24/19 10:00 11/26/19 09:15 Protonix - PO 40 mg DAILY SOREN Administration Rivaroxaban 20 mg 11/25/19 18:00 11/25/19 17:02 Xarelto PO 20 mg DAILY@1800 SOREN Administration Sacubitril/Valsartan 1 tab 11/24/19 10:00 11/25/19 10:19 Entresto 24 Mg-26 Mg Tablet PO 1 tab BID SOREN Administration Spironolactone 25 mg 11/24/19 10:00 11/25/19 10:19 Aldactone - PO 25 mg BID SOREN Administration Tramadol HCl 50 mg 11/25/19 17:49 11/26/19 06:16 Ultram - PO 50 mg Q12H PRN Administration PAIN LEVEL 6-10 ASSESSMENT/PLAN: 54 F HFrEF Cocaine abuse HTN HLD Bipolar disorder ALICE on CKD Afib on AC Plan: ALICE 2/2 multiple diuretic meds, will hold today's dose Renal evaluation Obtain utox to screen when cocaine is negative Cont. just Entresto for now Cardiology follow up Spoke to patient at length regarding detrimental effects of cocaine and other drugs/etoh/smoking DVT ppx: Xarelto Visit type - Emergency Visit Emergency Visit: Yes ED Registration Date: 11/23/19 Care time: The patient presented to the Emergency Department on the above date and was hospitalized for further evaluation of their emergent condition. - New Patient This patient is new to me today: Yes Date on this admission: 11/26/19 - Critical Care Critical Care patient: No - Discharge Referral Referred to [facility] Med P.C.: No
--- NOTE | 2019-11-26 13:31 | PN ---
Teaching Attending Note Name of Resident: Alfonso Devine ATTENDING PHYSICIAN STATEMENT I saw and evaluated the patient. I reviewed the resident's note and discussed the case with the resident. I agree with the resident's findings and plan as documented. SUBJECTIVE: Patient seen and examined at bedside denies CP/SOB, will get vascular/ID to evaluate RLE ulcer. VSS. OBJECTIVE: Vital Signs Period Temp Pulse Resp BP Sys/Khanna Pulse Ox Last 24 Hr 97.2 F-98.4 F 75-93 20-20 100-134/51-86 95-100 GENERAL: AAOx3, speaking in full sentences HEENT NC/aT, dry MM, neck supple LUNGS: CTAB, no crackles or wheezing HEART: S1, S2+, JOSIAS+ ABDOMEN: Soft, nontender, nondistended, normoactive bowel sounds, no guarding, no rebound, no hepatosplenomegaly, no masses. EXTREMITIES: 2+ pulses, RLE venous stasis ulcer stage 2-3 with good granulation tissue, no pus appreciated, wound open with dressing. NEUROLOGICAL: Cranial nerves II through XII grossly intact. Normal speech, gait not observed. PSYCH: Normal mood, normal affect. SKIN: Warm, dry, normal turgor, no rashes or lesions noted Laboratory Results - last 24 hr 11/25/19 11/25/19 11/25/19 05:58 12:30 16:47 WBC RBC Hgb Hct MCV MCH MCHC RDW Plt Count MPV Absolute Neuts (auto) Neutrophils % Lymphocytes % Monocytes % Eosinophils % Basophils % Nucleated RBC % Sodium 138 Potassium 4.0 Chloride 102 Carbon Dioxide 24 Anion Gap 13 BUN 27.0 H Creatinine 1.5 H Est GFR (CKD-EPI)AfAm 45.30 Est GFR (CKD-EPI)NonAf 39.09 POC Glucometer 253 Random Glucose 222 H Calcium 9.5 Phosphorus Magnesium Total Bilirubin 1.0 Direct Bilirubin 0.6 H AST 29 ALT 43 Alkaline Phosphatase 199 H Total Protein 6.9 Albumin 3.3 L Urine Color Urine Appearance Urine pH Ur Specific [place] Urine Protein Urine Glucose (UA) Urine Ketones Urine Blood Urine Nitrite Urine Bilirubin Urine Urobilinogen Ur Leukocyte Esterase Ur Random Creatinine Ur Random Urea Nitrogn 184 L 11/25/19 11/25/19 11/25/19 19:10 19:10 20:49 WBC RBC Hgb Hct MCV MCH MCHC RDW Plt Count MPV Absolute Neuts (auto) Neutrophils % Lymphocytes % Monocytes % Eosinophils % Basophils % Nucleated RBC % Sodium Potassium Chloride Carbon Dioxide Anion Gap BUN Creatinine Est GFR (CKD-EPI)AfAm Est GFR (CKD-EPI)NonAf POC Glucometer 142 Random Glucose Calcium Phosphorus Magnesium Total Bilirubin Direct Bilirubin AST ALT Alkaline Phosphatase Total Protein Albumin Urine Color Yellow Urine Appearance Clear Urine pH 6.0 Ur Specific [place] 1.009 L Urine Protein Negative Urine Glucose (UA) Negative Urine Ketones Negative Urine Blood Negative Urine Nitrite Negative Urine Bilirubin Negative Urine Urobilinogen 1.0 Ur Leukocyte Esterase Negative Ur Random Creatinine 23.0 L Ur Random Urea Nitrogn 11/26/19 11/26/19 11/26/19 05:24 06:00 08:55 WBC 7.2 RBC 3.99 Hgb 10.1 L Hct 32.5 MCV 81.6 MCH 25.3 L MCHC 31.0 L RDW 20.1 H Plt Count 235 MPV 9.0 Absolute Neuts (auto) 5.3 Neutrophils % 73.8 D Lymphocytes % 15.7 D Monocytes % 7.7 Eosinophils % 1.6 Basophils % 1.2 Nucleated RBC % 0 Sodium 140 Potassium 3.8 Chloride 104 Carbon Dioxide 26 Anion Gap 10 BUN 25.5 H Creatinine 1.3 Est GFR (CKD-EPI)AfAm 53.86 Est GFR (CKD-EPI)NonAf 46.47 POC Glucometer 271 Random Glucose 275 H Calcium 8.7 Phosphorus 3.5 Magnesium 1.5 L Total Bilirubin 1.0 Direct Bilirubin AST 22 ALT 33 Alkaline Phosphatase 150 H Total Protein 6.1 L Albumin 2.8 L Urine Color Urine Appearance Urine pH Ur Specific [place] Urine Protein Urine Glucose (UA) Urine Ketones Urine Blood Urine Nitrite Urine Bilirubin Urine Urobilinogen Ur Leukocyte Esterase Ur Random Creatinine Ur Random Urea Nitrogn 11/26/19 12:17 WBC RBC Hgb Hct MCV MCH MCHC RDW Plt Count MPV Absolute Neuts (auto) Neutrophils % Lymphocytes % Monocytes % Eosinophils % Basophils % Nucleated RBC % Sodium Potassium Chloride Carbon Dioxide Anion Gap BUN Creatinine Est GFR (CKD-EPI)AfAm Est GFR (CKD-EPI)NonAf POC Glucometer 262 Random Glucose Calcium Phosphorus Magnesium Total Bilirubin Direct Bilirubin AST ALT Alkaline Phosphatase Total Protein Albumin Urine Color Urine Appearance Urine pH Ur Specific [place] Urine Protein Urine Glucose (UA) Urine Ketones Urine Blood Urine Nitrite Urine Bilirubin Urine Urobilinogen Ur Leukocyte Esterase Ur Random Creatinine Ur Random Urea Nitrogn Active Medications Generic Name Dose Route Start Last Admin Trade Name [place] PRN Reason Stop Dose Admin Digoxin 0.125 mg 11/24/19 10:00 11/26/19 09:15 Lanoxin - PO 0.125 mg DAILY SOREN Administration Furosemide 60 mg 11/26/19 14:00 Lasix - PO BID@0600,1400 [facility] Insulin Aspart 1 vial 11/24/19 07:00 11/26/19 12:19 Novolog Vial Sliding Scale - SQ 6 units ACHS SOREN Administration Protocol Loratadine 10 mg 11/24/19 02:19 Claritin - PO DAILY PRN ALLERGIES Metoprolol Succinate 25 mg 11/24/19 13:15 11/26/19 09:15 Toprol Xl - PO 25 mg BID [facility] Administration Montelukast Sodium 10 mg 11/24/19 22:00 11/25/19 21:14 Singulair - PO 10 mg HS [facility] Administration Pantoprazole Sodium 40 mg 11/24/19 10:00 11/26/19 09:15 Protonix - PO 40 mg DAILY SOREN Administration Rivaroxaban 20 mg 11/25/19 18:00 11/25/19 17:02 Xarelto PO 20 mg DAILY@1800 [facility] Administration Sacubitril/Valsartan 1 tab 11/24/19 10:00 11/25/19 10:19 Entresto 24 Mg-26 Mg Tablet PO 1 tab BID SOREN Administration Spironolactone 25 mg 11/24/19 10:00 11/25/19 10:19 Aldactone - PO 25 mg BID SOREN Administration Tramadol HCl 50 mg 11/25/19 17:49 11/26/19 06:16 Ultram - PO 50 mg Q12H PRN Administration PAIN LEVEL 6-10 ASSESSMENT/PLAN: 54 F HFrEF Cocaine abuse HTN HLD Bipolar disorder ALICE on CKD Afib on AC Plan: ALICE improved with holding diuretics, restart one by one Renal evaluation Obtain utox to screen when cocaine is negative Cont. HF meds ID evaluation Vascular evaluation of RLE ulcer Cardiology follow up Spoke to patient at length regarding detrimental effects of cocaine and other drugs/etoh/smoking DVT ppx: Xarelto
[2019-11-26] MEDS: FUROSEMIDE 40 MG TABLET (FP) PO SCH (14:12)
[2019-11-26 14:13] VITALS: BMI 38.5
--- NOTE | 2019-11-26 14:16 | CONSULT ---
- Consultation REQUESTING PROVIDER: CONSULT REQUEST: We have been asked to surgically evaluate this patient for Left leg wound. PCP:Casey Rothman MD HISTORY OF PRESENT ILLNESS: The patient is known to the vascular surgery service. She had her Left lower ext wound cleaned by Dr. Will on a previous hospital admission 10/26/19. Also, she had a right lower ext wound which healed with the help of hyperbaric treatment to that extremity. She presented to the ER with SOB and lower ext swelling. The patient states that she has been caring fo rher wound at home daily with santyl and gauze dressing. She denies copious serous drainage on her daily dressing change. No fevers/chills. PMHx: Afib (on Xarelto), diabetes mellitus (insulin dependent). hypertension, hyperlipidemia, asthma, cocaine use disorder with conmoninant NSTEMI, chronic left lower extremity wound PAST SURGICAL HISTORY: left knee surgery, cholecystectomy, fibroid surgery Home Medications Medication Instructions Recorded Loratadine 10 mg PO DAILY PRN 06/30/19 Cholecalciferol (Vitamin D3) 50,000 unit PO WEEKLY 09/16/19 [Vitamin D3 -] Fluticasone Propion/Salmeterol 1 inhaler IN BID 09/16/19 [Wixela 500-50 Inhub] Insulin Glargine,Hum.rec.anlog 38 unit SQ HS 09/16/19 [Basaglar Kwikpen U-100] Collagenase Clostridium Hist. 1 applic TP DAILY #1 tube 10/17/19 [Santyl -] Docusate Sodium [Colace -] 100 mg PO TID #90 capsule 10/17/19 Montelukast Sodium [Singulair] 10 mg PO HS #30 tablet 10/17/19 Pantoprazole Sodium [Protonix -] 40 mg PO DAILY #30 tab 10/17/19 Rivaroxaban [Xarelto -] 20 mg PO DAILY #30 tablet 10/17/19 Sacubitril/Valsartan [Entresto 24 1 tab PO BID #60 tablet 10/17/19 mg-26 mg Tablet] Spironolactone [Aldactone -] 25 mg PO BID #60 tablet 10/17/19 Furosemide [Lasix -] 60 mg PO BID@0600,1400 10/27/19 Metoprolol Succinate [Toprol Xl] 25 mg PO BID 11/06/19 Digoxin [Lanoxin -] 0.125 mg PO DAILY #30 tablet 11/08/19 Insulin Sliding Scale [Novolog 18 unit SQ ASDIR 11/08/19 Vial Sliding Scale -] Liraglutide [Victoza -] 1.2 mg SQ DAILY 11/08/19 Allergies Allergy/AdvReac Type Severity Reaction Status Date / Time amoxicillin trihydrate Allergy Intermediate Swelling Verified 11/23/19 19:15 [From Augmentin] potassium clavulanate Allergy Intermediate Swelling Verified 11/23/19 19:15 [From Augmentin] amoxicillin Allergy Verified 11/23/19 19:15 REVIEW OF SYSTEMS: CONSTITUTIONAL: Absent: fever, chills CARDIOVASCULAR: present: irregular heart rate, peripheral edema RESPIRATORY: present: shortness of breath, dyspnea with exertion HEMATOLOGIC/IMMUNOLOGIC: Present: easy bleeding, easy bruising NEUROLOGIC: Absent: headache, focal weakness, paresthesias, dizziness, unsteady gait, seizure, mental status changes, bladder or bowel incontinence PSYCHIATRIC: Absent: anxiety, depression, suicidal or homicidal ideation, hallucinations. PHYSICAL EXAM: GENERAL: Awake, alert, and fully oriented, in no acute distress. UPPER EXTREMITIES: RLE with echymosis LOWER EXTREMITIES: 2+ DP/PT pulses, warm, well-perfused. No calf tenderness. Mild peripheral edema. LLE with 3 x 3cm clean wound with granulation tissue at the base. NEUROLOGICAL: Normal speech, gait not observed. PSYCH: Cooperative. Good eye contact. Appropriate mood and affect. SKIN: Warm, dry, normal turgor, no rashes or lesions noted. Vital Signs Temperature 97.6 F 11/26/19 09:12 Pulse Rate 75 11/26/19 09:15 Respiratory Rate 20 11/26/19 09:12 Blood Pressure 100/64 11/26/19 09:12 O2 Sat by Pulse Oximetry (%) 95 11/26/19 09:12 Lab Results WBC 7.2 K/mm3 (4.0-10.0) 11/26/19 08:55 RBC 3.99 M/mm3 (3.60-5.2) 11/26/19 08:55 Hgb 10.1 GM/dL (10.7-15.3) L 11/26/19 08:55 Hct 32.5 % (32.4-45.2) 11/26/19 08:55 MCV 81.6 fl (80-96) 11/26/19 08:55 MCHC 31.0 g/dl (32.0-36.0) L 11/26/19 08:55 RDW 20.1 % (11.6-15.6) H 11/26/19 08:55 Plt Count 235 K/MM3 (134-434) 11/26/19 08:55 INR 1.95 (0.83-1.09) H 11/25/19 05:58 Sodium 140 mmol/L (136-145) 11/26/19 06:00 Potassium 3.8 mmol/L (3.5-5.1) 11/26/19 06:00 Chloride 104 mmol/L (98-107) 11/26/19 06:00 Carbon Dioxide 26 mmol/L (21-32) 11/26/19 06:00 Anion Gap 10 MMOL/L (8-16) 11/26/19 06:00 BUN 25.5 mg/dL (7-18) H 11/26/19 06:00 Creatinine 1.3 mg/dL (0.55-1.3) 11/26/19 06:00 Random Glucose 275 mg/dL (74-106) H 11/26/19 06:00 Calcium 8.7 mg/dL (8.5-10.1) 11/26/19 06:00 Problem List - Problems (1) 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 Continue lasix BID to help with swelling. Medicinal team ordered duplex to r/o DVT. Elevate lower ext at all times Continue local wd care with santyl/gauze and kerlix daily Pt has an appointment to be seen in the clinic of Wednesday 11/29-Spoke with Dr. Will and if pt discharged by 11/29 please have her follow up in the clinic for further wd care. May apply apligraf in wd clinic if the wound continues to appear clean. Problems reviewed: Yes Code(s): E10.622 - TYPE 1 DIABETES MELLITUS WITH OTHER SKIN ULCER; L97.309 - NON-PRESSURE CHRONIC ULCER OF UNSP ANKLE WITH UNSP SEVERITY
[2019-11-26] MEDS: RIVAROXABAN 20 MG TABLET PO SCH (17:06)
[2019-11-26] MEDS ORDERED: PT OWN MED DRAWER 7, Y5N ONE ×2 (18:07→21:53)
[2019-11-26 19:04] LABS: METHADONE, UR NEGATIVE ng/ml (CUTOFF=300); OPIATES, URI NEGATIVE ng/ml (CUTOFF=300); PHENCYCLIDINE,URINE NEGATIVE ng/ml (CUTOFF=25); URINE AMPHETAMINES NEGATIVE ng/ml (CUTOFF=500); URINE BARBITURATES NEGATIVE ng/ml (CUTOFF=200); URINE BENZODIAZEPINES NEGATIVE ng/ml (CUTOFF=200)
[2019-11-26 19:12] LABS: COCAINE, UR POSITIVE ng/ml (CUTOFF=300)
[2019-11-26] MEDS: SPIRONOLACTONE 25 MG TABLET PO SCH (21:51)
[2019-11-26] MEDS: MONTELUKAST NA 10 MG TABLET PO SCH (21:51)
[2019-11-26] MEDS: SACUBITRIL/VALSARTAN 24 MG-26 MG TABLET PO SCH (21:55)
[2019-11-27] MEDS: FUROSEMIDE 40 MG TABLET (FP) PO SCH ×2 (06:37→13:54)
[2019-11-27] MEDS: INSULIN SLIDING SCALE (NOVOLOG) 1 VIAL SQ SCH ×2 (06:42→11:57)
[2019-11-27 07:03] LABS: HEMATOCRIT 33.4 % (32.4-45.2); HEMOGLOBIN 10.2 GM/dL (10.7-15.3); MCH 24.9 pg (25.7-33.7); MCHC 30.6 g/dl (32.0-36.0); MEAN CELL VOLUME 81.5 fl (80-96); MEAN PLT VOLUME 9.1 fl (7.5-11.1); PLATELET COUNT 288 K/MM3 (134-434); RDW 20.8 % (11.6-15.6); WHITE BLOOD COUNT 7.3 K/mm3 (4.0-10.0)
[2019-11-27 07:36] LABS: POTASSIUM 4.2 mmol/L (3.5-5.1)
[2019-11-27 07:41] LABS: BLOOD UREA NITROGEN 26.5 mg/dL (7-18); CALCIUM 9.1 mg/dL (8.5-10.1); CREATININE 1.1 mg/dL (0.55-1.3); PHOSPHOROUS 3.8 mg/dL (2.5-4.9)
[2019-11-27] MEDS ORDERED: PT OWN MED DRAWER 7, Y5N ONE ×3 (09:11→13:47)
[2019-11-27] MEDS: SACUBITRIL/VALSARTAN 24 MG-26 MG TABLET PO SCH (09:14)
[2019-11-27] MEDS: SPIRONOLACTONE 25 MG TABLET PO SCH (09:14)
[2019-11-27] MEDS: metoPROLOL SUCCINATE 25 MG TAB.SR.24H (FP) PO SCH (09:14)
[2019-11-27] MEDS: DIGOXIN 0.125 MG TABLET (FP) PO SCH (09:14)
[2019-11-27] MEDS: PANTOPRAZOLE 40 MG TABLET PO SCH (09:14)
--- NOTE | 2019-11-27 09:56 | PN ---
Progress Note, Physician History of Present Illness: PULMONARY ALERT,STILL C/O SOB,+GENERALIZED PAINS - Current Medication List Current Medications: Active Medications Collagenase (Santyl -) 1 applic TP DAILY [facility]; Protocol Digoxin (Lanoxin -) 0.125 mg PO DAILY [facility] Last Admin: 11/27/19 09:14 Dose: 0.125 mg Documented by: Furosemide (Lasix -) 60 mg PO BID@0600,1400 [facility] Last Admin: 11/27/19 06:37 Dose: 60 mg Documented by: Insulin Aspart (Novolog Vial Sliding Scale -) 1 vial SQ ACHS [facility]; Protocol Last Admin: 11/27/19 06:42 Dose: 2 units Documented by: Loratadine (Claritin -) 10 mg PO DAILY PRN PRN Reason: ALLERGIES Metoprolol Succinate (Toprol Xl -) 25 mg PO BID [facility] Last Admin: 11/27/19 09:14 Dose: 25 mg Documented by: Montelukast Sodium (Singulair -) 10 mg PO HS [facility] Last Admin: 11/26/19 21:51 Dose: 10 mg Documented by: Pantoprazole Sodium (Protonix -) 40 mg PO DAILY [facility] Last Admin: 11/27/19 09:14 Dose: 40 mg Documented by: Rivaroxaban (Xarelto) 20 mg PO DAILY@1800 [facility] Last Admin: 11/26/19 17:06 Dose: 20 mg Documented by: Sacubitril/Valsartan (Entresto 24 Mg-26 Mg Tablet) 1 tab PO BID [facility] Last Admin: 11/27/19 09:14 Dose: 1 tab Documented by: Spironolactone (Aldactone -) 25 mg PO BID [facility] Last Admin: 11/27/19 09:14 Dose: 25 mg Documented by: Tramadol HCl (Ultram -) 50 mg PO Q12H PRN PRN Reason: PAIN LEVEL 6-10 Last Admin: 11/26/19 19:43 Dose: 50 mg Documented by: - Objective Vital Signs: Vital Signs Temperature 98.2 F 11/27/19 01:00 Pulse Rate 84 11/27/19 09:14 Respiratory Rate 20 11/27/19 05:00 Blood Pressure 109/72 11/27/19 05:00 O2 Sat by Pulse Oximetry (%) 100 11/26/19 20:32 Constitutional: Yes: Well Nourished, Calm Eyes: Yes: WNL HENT: Yes: WNL Neck: Yes: WNL Cardiovascular: Yes: Pulse Irregular, S1, S2 Respiratory: Yes: Diminished Gastrointestinal: Yes: Normal Bowel Sounds, Soft Extremities: Yes: WNL Edema: No Labs: CBC, BMP 11/27/19 06:16 11/27/19 06:16 INR, PTT INR 1.95 (0.83-1.09) H 11/25/19 05:58 Problem List - Problems (1) Acute on chronic congestive heart failure Code(s): I50.9 - HEART FAILURE, UNSPECIFIED (2) Heart failure, systolic, with acute decompensation Code(s): I50.23 - ACUTE ON CHRONIC SYSTOLIC (CONGESTIVE) HEART FAILURE (3) COPD (chronic obstructive pulmonary disease) Code(s): J44.9 - CHRONIC OBSTRUCTIVE PULMONARY DISEASE, UNSPECIFIED Qualifiers: COPD type: unspecified COPD Qualified Code(s): J44.9 - Chronic obstructive pulmonary disease, unspecified (4) Atrial fibrillation Code(s): I48.91 - UNSPECIFIED ATRIAL FIBRILLATION (5) CHF exacerbation Code(s): I50.9 - HEART FAILURE, UNSPECIFIED Qualifiers: Heart failure type: systolic Qualified Code(s): I50.23 - Acute on chronic systolic (congestive) heart failure (6) Cardiac LV ejection fraction 21-30% Code(s): R93.1 - ABNORMAL FINDINGS ON DX IMAGING OF HEART AND COR CIRC (7) FERRER (dyspnea on exertion) Code(s): R06.09 - OTHER FORMS OF DYSPNEA (8) COPD (chronic obstructive pulmonary disease) Code(s): J44.9 - CHRONIC OBSTRUCTIVE PULMONARY DISEASE, UNSPECIFIED (9) Diabetes Code(s): E11.9 - TYPE 2 DIABETES MELLITUS WITHOUT COMPLICATIONS (10) Hyperlipidemia Code(s): E78.5 - HYPERLIPIDEMIA, UNSPECIFIED (11) Hypertension Code(s): I10 - ESSENTIAL (PRIMARY) HYPERTENSION (12) Pulmonary hypertension Code(s): I27.20 - PULMONARY HYPERTENSION, UNSPECIFIED (13) Dyspnea Code(s): R06.00 - DYSPNEA, UNSPECIFIED Assessment/Plan IMP DYSPNEA ACUTE ON CHRONIC CHF NON-ISCHEMIC CARDIOMYOPATHY ASTHMA/COPD HTN IDDM HLD H/O NSTEMI AFIB COCAINE ABUSE NONCOMPLIANCE SUPRATHERAPEUTIC INR TOBACCO ABUSE ALICE PLAN SUPPLEMENTAL O2 CONTINUE LASIX INHALED BRONCHODILATORS DAILY WTS MONITOR LYTES,RENAL FUNCTION MONITOR BLOOD SUGARS F/U CHEST X-RAYS STRESS COMPLIANCE WITH MEDS MONITOR INR SMOKING CESSATION COUNSELED DR HASSAN Problem List - Problems (1) Acute on chronic congestive heart failure Code(s): I50.9 - HEART FAILURE, UNSPECIFIED (2) Heart failure, systolic, with acute decompensation Code(s): I50.23 - ACUTE ON CHRONIC SYSTOLIC (CONGESTIVE) HEART FAILURE (3) COPD (chronic obstructive pulmonary disease) Code(s): J44.9 - CHRONIC OBSTRUCTIVE PULMONARY DISEASE, UNSPECIFIED Qualifiers: COPD type: unspecified COPD Qualified Code(s): J44.9 - Chronic obstructive pulmonary disease, unspecified (4) Atrial fibrillation Code(s): I48.91 - UNSPECIFIED ATRIAL FIBRILLATION (5) CHF exacerbation Code(s): I50.9 - HEART FAILURE, UNSPECIFIED Qualifiers: Heart failure type: systolic Qualified Code(s): I50.23 - Acute on chronic systolic (congestive) heart failure (6) Cardiac LV ejection fraction 21-30% Code(s): R93.1 - ABNORMAL FINDINGS ON DX IMAGING OF HEART AND COR CIRC (7) FERRER (dyspnea on exertion) Code(s): R06.09 - OTHER FORMS OF DYSPNEA (8) COPD (chronic obstructive pulmonary disease) Code(s): J44.9 - CHRONIC OBSTRUCTIVE PULMONARY DISEASE, UNSPECIFIED (9) Diabetes Code(s): E11.9 - TYPE 2 DIABETES MELLITUS WITHOUT COMPLICATIONS (10) Hyperlipidemia Code(s): E78.5 - HYPERLIPIDEMIA, UNSPECIFIED (11) Hypertension Code(s): I10 - ESSENTIAL (PRIMARY) HYPERTENSION (12) Pulmonary hypertension Code(s): I27.20 - PULMONARY HYPERTENSION, UNSPECIFIED (13) Dyspnea Code(s): R06.00 - DYSPNEA, UNSPECIFIED
[2019-11-27] MEDS ORDERED: COLLAGENASE CLOSTRIDIUM HIST. 30 GRAMS TUBE TP SCH (10:00)
--- NOTE | 2019-11-27 11:15 | PN ---
Progress Note (short form) - Note Progress Note: cc: leg pains s: complains of worsening leg pain bilaterally and increasing redness. no chest pain,sob palps, dizziness Current Medications Generic Name Dose Route Start Last Admin Trade Name Freglenda PRN Reason Stop Dose Admin Collagenase 1 applic 11/27/19 10:00 Santyl - TP DAILY [facility] Protocol Digoxin 0.125 mg 11/24/19 10:00 11/27/19 09:14 Lanoxin - PO 0.125 mg DAILY [facility] Administration Furosemide 60 mg 11/26/19 14:00 11/27/19 06:37 Lasix - PO 60 mg BID@0600,1400 [facility] Administration Insulin Aspart 1 vial 11/24/19 07:00 11/27/19 06:42 Novolog Vial Sliding Scale - SQ 2 units ACHS [facility] Administration Protocol Loratadine 10 mg 11/24/19 02:19 Claritin - PO DAILY PRN ALLERGIES Metoprolol Succinate 25 mg 11/24/19 13:15 11/27/19 09:14 Toprol Xl - PO 25 mg BID [facility] Administration Montelukast Sodium 10 mg 11/24/19 22:00 11/26/19 21:51 Singulair - PO 10 mg HS [facility] Administration Pantoprazole Sodium 40 mg 11/24/19 10:00 11/27/19 09:14 Protonix - PO 40 mg DAILY [facility] Administration Rivaroxaban 20 mg 11/25/19 18:00 11/26/19 17:06 Xarelto PO 20 mg DAILY@1800 [facility] Administration Sacubitril/Valsartan 1 tab 11/24/19 10:00 11/27/19 09:14 Entresto 24 Mg-26 Mg Tablet PO 1 tab BID [facility] Administration Spironolactone 25 mg 11/24/19 10:00 11/27/19 09:14 Aldactone - PO 25 mg BID [facility] Administration Tramadol HCl 50 mg 11/25/19 17:49 11/26/19 19:43 Ultram - PO 50 mg Q12H PRN Administration PAIN LEVEL 6-10 Vital Signs Period Temp Pulse Resp BP Sys/Khanna Pulse Ox Last 24 Hr 97.4 F-98.2 F 79-84 20-20 109-131/72-88 100 Constitutional: Yes: No Distress, Calm Eyes: Yes: Conjunctiva Clear, EOM Intact HENT: Yes: Atraumatic, Normocephalic Neck: Yes: Supple, Trachea Midline Respiratory: cta bl nl eff Gastrointestinal: Yes: Normal Bowel Sounds, Soft Cardiovascular: Yes: Tachycardia JVD: No Heart Sounds: Yes: S1, S2 Musculoskeletal: No: Back Pain Extremities: Yes: Cool. +bandages LLE Edema: trace lower ext edema bilaterallly Integumentary: No: Jaundice diaphoresis Neurological: Yes: Alert, Oriented Psychiatric: No: Agitated CBC, BMP 11/26/19 08:55 11/26/19 06:00 EKG: afib, rate controlled, no ischemic changes cxr: + congestive changes echo 10/2018 dilated LV, severe global hypokinesis, EF 15-20%, RV mildly reduced function, LA mod dilated, mild MAC, mild MR, mild TR, RVSP >40-50 mmHg echo 09/2019: lve, lvef 30-35, mild dec rv fcn, mild mr tele: afib,rate ok a/p: 53F h/o HTN, HLD, afib, chronic systolic HF, DM p/w sob acute on chronic systolic chf, NICM: -Likely NICM due to chronic HTN, cocaine use -pt had not followed up for ICD as planned in past and her continued cocaine use is a relative contraindication -recent echo 09/2019 with stable chronic findings, lvef slightly improved -acute exacerbation likely in setting of med noncompliance -held IV lasix for ALICE as well as home spironolactone and entresto, monitor Cr-->cr improved, cont home meds -cont metoprolol AFib: - cont metoprolol, digoxin - xarelto initially held for supratherapeutic INR, now resumed CAD, NSTEMI: -pt presented with NSTEMI in 2018 but subsequent cath showed single vessel disease, medically managed with cardiomyopathy out of proportion to degree of CAD -no signs ACS here -cont bb, ac. statin stopped previously due to elevated lfts. cocaine use, smoking: - encouraged cessation
--- NOTE | 2019-11-27 11:47 | PN ---
Progress Note, Physician History of Present Illness: stable generalized pain - Current Medication List Current Medications: Active Medications Collagenase (Santyl -) 1 applic TP DAILY [facility]; Protocol Digoxin (Lanoxin -) 0.125 mg PO DAILY [facility] Last Admin: 11/27/19 09:14 Dose: 0.125 mg Documented by: Furosemide (Lasix -) 60 mg PO BID@0600,1400 [facility] Last Admin: 11/27/19 06:37 Dose: 60 mg Documented by: Insulin Aspart (Novolog Vial Sliding Scale -) 1 vial SQ ACHS [facility]; Protocol Last Admin: 11/27/19 06:42 Dose: 2 units Documented by: Loratadine (Claritin -) 10 mg PO DAILY PRN PRN Reason: ALLERGIES Metoprolol Succinate (Toprol Xl -) 25 mg PO BID [facility] Last Admin: 11/27/19 09:14 Dose: 25 mg Documented by: Montelukast Sodium (Singulair -) 10 mg PO HS [facility] Last Admin: 11/26/19 21:51 Dose: 10 mg Documented by: Pantoprazole Sodium (Protonix -) 40 mg PO DAILY [facility] Last Admin: 11/27/19 09:14 Dose: 40 mg Documented by: Rivaroxaban (Xarelto) 20 mg PO DAILY@1800 [facility] Last Admin: 11/26/19 17:06 Dose: 20 mg Documented by: Sacubitril/Valsartan (Entresto 24 Mg-26 Mg Tablet) 1 tab PO BID [facility] Last Admin: 11/27/19 09:14 Dose: 1 tab Documented by: Spironolactone (Aldactone -) 25 mg PO BID [facility] Last Admin: 11/27/19 09:14 Dose: 25 mg Documented by: Tramadol HCl (Ultram -) 50 mg PO Q12H PRN PRN Reason: PAIN LEVEL 6-10 Last Admin: 11/26/19 19:43 Dose: 50 mg Documented by: - Objective Vital Signs: Vital Signs Temperature 98.2 F 11/27/19 01:00 Pulse Rate 84 11/27/19 09:14 Respiratory Rate 20 11/27/19 05:00 Blood Pressure 109/72 11/27/19 05:00 O2 Sat by Pulse Oximetry (%) 100 11/26/19 20:32 Constitutional: Yes: No Distress, Calm Cardiovascular: Yes: S1, S2 Respiratory: Yes: Regular, CTA Bilaterally Gastrointestinal: Yes: Normal Bowel Sounds, Soft Musculoskeletal: Yes: WNL Extremities: Yes: Other Wound/Incision: Yes: Dressing Dry and Intact Neurological: Yes: Alert, Oriented Psychiatric: Yes: Alert, Oriented Labs: CBC, BMP 11/27/19 06:16 11/27/19 06:16 INR, PTT INR 1.95 (0.83-1.09) H 11/25/19 05:58 Assessment/Plan 54 year old woman with MHx of Afib (on Xarelto), HFrEF (LVEF 15-20%), Cocaine- induced HI, BLE edema/wound, Bipolar disorder, Left knee replacement, HTN, HLD, Asthma, Insulin-treated DM, , Tobacco use and multiple admissions for "CHF exacerbation" presenting with SOB and recent cocaine use # Acute on Chronic HFrEF - non compliant - Daily wt, I/O, strict intake/Output - IV furosemide - cocaine+ve - resume HF medication per ballroom dance instructor, discussed the BB in setting of cocaine use, pt has AFib also - discussed smoking, cocaine abstinence in length, as well as diet, medication compliance - High INR will hold xarelto for today and trend Afib Cocaine abuse bipolar HTN HLD ASthma DM plan continue current mgmt rest as per the team wound care diuresis
[2019-11-27] MEDS ORDERED: INSULIN (NOVOLOG) ASPART 100 UNITS/ML 10ML VIAL ONE (11:54)
[2019-11-27] MEDS: CLINDAMYCIN 600MG PREMIX IVPB 600 MG/50 ML BAG IVPB ONE ×2 (11:57→12:27)
[2019-11-27] MEDS ORDERED: CLINDAMYCIN HCL 150 MG CAPSULE (FP) PO ONE (13:31)
--- NOTE | 2019-11-27 13:32 | DS ---
Physical Exam: SUBJECTIVE: Patient seen and examined. No acute complaints. OBJECTIVE: Vital Signs Period Temp Pulse Resp BP Sys/Khanna Pulse Ox Last 24 Hr 97.4 F-98.2 F 79-84 20-20 109-131/72-88 100 PHYSICAL EXAM GENERAL: AAOx3, speaking in full sentences HEENT NC/aT, MMM, neck supple LUNGS: CTAB, no crackles or wheezing HEART: S1, S2+, JOSIAS+ ABDOMEN: Soft, nontender, nondistended, normoactive bowel sounds, no guarding, no rebound, no hepatosplenomegaly, no masses. EXTREMITIES: 2+ dorsal pedal pulses, reported: RLE venous stasis ulcer stage 2-3 with good granulation tissue, no pus appreciated, wound open with dressing. NEUROLOGICAL: Normal speech, gait not observed. PSYCH: Normal mood, normal affect. SKIN: Warm, dry, normal turgor LABS Laboratory Results - last 24 hr 11/26/19 11/26/19 11/26/19 17:01 18:00 21:50 WBC RBC Hgb Hct MCV MCH MCHC RDW Plt Count MPV Sodium Potassium Chloride Carbon Dioxide Anion Gap BUN Creatinine Est GFR (CKD-EPI)AfAm Est GFR (CKD-EPI)NonAf POC Glucometer 141 251 Random Glucose Calcium Phosphorus Magnesium Opiates Screen Negative Methadone Screen Negative Barbiturate Screen Negative Phencyclidine Screen Negative Ur Amphetamines Screen Negative MDMA (Ecstasy) Screen Negative Benzodiazepines Screen Negative Cocaine Screen Positive A* U Marijuana (THC) Screen Negative 11/27/19 11/27/19 11/27/19 06:16 06:16 06:33 WBC 7.3 RBC 4.10 Hgb 10.2 L Hct 33.4 MCV 81.5 MCH 24.9 L MCHC 30.6 L RDW 20.8 H Plt Count 288 D MPV 9.1 Sodium 138 Potassium 4.2 Chloride 102 Carbon Dioxide 23 Anion Gap 12 BUN 26.5 H Creatinine 1.1 Est GFR (CKD-EPI)AfAm 65.92 Est GFR (CKD-EPI)NonAf 56.87 POC Glucometer 160 Random Glucose 145 H Calcium 9.1 Phosphorus 3.8 Magnesium 2.0 Opiates Screen Methadone Screen Barbiturate Screen Phencyclidine Screen Ur Amphetamines Screen MDMA (Ecstasy) Screen Benzodiazepines Screen Cocaine Screen U Marijuana (THC) Screen 11/27/19 11:09 WBC RBC Hgb Hct MCV MCH MCHC RDW Plt Count MPV Sodium Potassium Chloride Carbon Dioxide Anion Gap BUN Creatinine Est GFR (CKD-EPI)AfAm Est GFR (CKD-EPI)NonAf POC Glucometer 179 Random Glucose Calcium Phosphorus Magnesium Opiates Screen Methadone Screen Barbiturate Screen Phencyclidine Screen Ur Amphetamines Screen MDMA (Ecstasy) Screen Benzodiazepines Screen Cocaine Screen U Marijuana (THC) Screen HOSPITAL COURSE: Date of Admission:11/23/19 Date of Discharge: 11/27/19 Pt. is a 54 year old female with history of HFrEF, AFib (on Xarelto), insulin dependent diabetes mellitus, hypertension, hyperlipidemia, asthma, chronic LLE wound and cocaine use disorder with resultant NSTEMI presented to the ED with shortness of breath. EKG revealed Afib with PVCs, Echo showed moderate global hypokinesis of the left ventricle with mild dilation and EF 30-35%. Pt was managed for acute on chronic CHF likely secondary to medication non-compliance. Pt was monitored on telemetry with fluid restriction, strict intake/output and daily weight monitoring. Per cardiology pts CHF exacerbation was managed with spironolactone, entresto, metoprolol, digoxin and furosemide. Pts was given DuoNebs Q4H for asthma. Pt continued on metoprolol and digoxin for afib. Xarelto was held as pt was found to be supratherapeutic on initial presentation and was resumed as INR improved to therapeutic range. Pt was found to have an ALICE during hospital course likely due to the hemodynamic effect and renal hypoperfusion with use of multiple diuretic agents. Per nephrology, IV furosemide, spironolactone and entresto were temporarily held with improvement of ALICE and was resumed on home PO meds. Pt was started on clindamycin for LLE wound infection Pt was explained the adverse effects of drugs use encouraged cessation of smoking and cocaine. PCP and Specialists follow up as detailed below. Hospital course discussed and agreed upon with Pt. and medical staff. 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 You were found to be in CHF exacerbations because you were not taking Lasix appropriately. We noticed that your INR (measurement of blood thinness) was elevated. We noticed that your kidneys function was decreased. We believe that this was because of your cocaine use and not using your Lasix correctly (you should take Lasix TWICE a day). You were seen by Infectious Disease Specialist who evaluated your wound. You were also seen by a kidney doctor, heart doctor and a lung doctor in the hospital. Please continue taking your medications as they were prescribed DO NOT USE COCAINE!!! It is not safe to use with Metoprolol however you need to continue to take Metoprolol because it will help you live longer. We have started you on antibiotics. Please continue to take Clindamycin 300mg EVERY 6 hours for 6 more days. Please take Lactobacillus everyday while taking the antibiotics, this is to help prevent diarrhea. If you notice you develop diarrhea, stop taking the anti biotics immediately. Please follow up with your PCP within 1 week Please follow up with your [place] within 1 week Please follow up with Wound Care within 1 week. Please return to the ED if you are having chest pain, shortness of breath, increased swelling, fevers, chills, or gaining of weight. Referrals: Rashawn Hernandez MD [Staff Physician] - 1 Week Fili Espinoza MD [Primary Care Provider] - 1 Week Pablo Will DO [Staff Physician] - 1 Week Disposition: HOME - Home Medications Comprehensive Discharge Medication List: Ambulatory Orders Loratadine 10 mg PO DAILY PRN 06/30/19 Cholecalciferol (Vitamin D3) [Vitamin D3 -] 50,000 unit PO WEEKLY 09/16/19 Fluticasone Propion/Salmeterol [Wixela 500-50 Inhub] 1 inhaler IN BID 09/16/19 Insulin Glargine,Hum.rec.anlog [Basaglar Kwikpen U-100] 38 unit SQ HS 09/16/19 Collagenase Clostridium Hist. [Santyl -] 1 applic TP DAILY #1 tube 10/17/19 Docusate Sodium [Colace -] 100 mg PO TID #90 capsule 07/01/20 Montelukast Sodium [Singulair] 10 mg PO HS #30 tablet 10/17/19 Pantoprazole Sodium [Protonix -] 40 mg PO DAILY #30 tab 10/17/19 Rivaroxaban [Xarelto -] 20 mg PO DAILY #30 tablet 10/17/19 Sacubitril/Valsartan [Entresto 24 mg-26 mg Tablet] 1 tab PO BID #60 tablet 10/17/19 Spironolactone [Aldactone -] 25 mg PO BID #60 tablet 10/17/19 Furosemide [Lasix -] 60 mg PO BID@0600,1400 10/27/19 Metoprolol Succinate [Toprol Xl] 25 mg PO BID 11/06/19 Digoxin [Lanoxin -] 0.125 mg PO DAILY #30 tablet 11/08/19 Insulin Sliding Scale [Novolog Vial Sliding Scale -] 18 unit SQ ASDIR 11/08/19 Liraglutide [Victoza -] 1.2 mg SQ DAILY 11/08/19 Clindamycin [Cleocin -] 300 mg PO Q6HPO #27 capsule 11/27/19 L. Acidophilus/L.bulgaricus [Lactobacillus Tablet] 1 each PO DAILY #7 tablet 11/27/19 This patient is new to me today: No Emergency Visit: Yes ED Registration Date: 11/23/19 Care time: The patient presented to the Emergency Department on the above date and was hospitalized for further evaluation of their emergent condition. Critical Care patient: No - Discharge Referral Referred to [facility] No ATTENDING PHYSICIAN STATEMENT I saw and evaluated the patient. I reviewed the resident's note and discussed the case with the resident. I agree with the resident's findings and plan as documented. SUBJECTIVE: OBJECTIVE: ASSESSMENT AND PLAN:
[2019-11-27 14:41] VITALS: BP 110/77; PULSE 78; TEMP 97.8
--- NOTE | 2019-12-03 20:55 | PN ---
Teaching Attending Note Name of Resident: Alfonso Devine ATTENDING PHYSICIAN STATEMENT I saw and evaluated the patient. I reviewed the resident's note and discussed the case with the resident. I agree with the resident's findings and plan as documented. SUBJECTIVE: Patient seen and examined at bedside denies CP/SOB, will get vascular/ID to evaluate RLE ulcer. VSS. OBJECTIVE: Vital Signs Period Temp Pulse Resp BP Sys/Khanna Pulse Ox Last 24 Hr 97.2 F-98.4 F 75-93 20-20 100-134/51-86 95-100 GENERAL: AAOx3, speaking in full sentences HEENT NC/aT, dry MM, neck supple LUNGS: CTAB, no crackles or wheezing HEART: S1, S2+, JOSIAS+ ABDOMEN: Soft, nontender, nondistended, normoactive bowel sounds, no guarding, no rebound, no hepatosplenomegaly, no masses. EXTREMITIES: 2+ pulses, RLE venous stasis ulcer stage 2-3 with good granulation tissue, no pus appreciated, wound open with dressing. NEUROLOGICAL: Cranial nerves II through XII grossly intact. Normal speech, gait not observed. PSYCH: Normal mood, normal affect. SKIN: Warm, dry, normal turgor, no rashes or lesions noted Laboratory Results - last 24 hr 11/25/19 11/25/19 11/25/19 05:58 12:30 16:47 WBC RBC Hgb Hct MCV MCH MCHC RDW Plt Count MPV Absolute Neuts (auto) Neutrophils % Lymphocytes % Monocytes % Eosinophils % Basophils % Nucleated RBC % Sodium 138 Potassium 4.0 Chloride 102 Carbon Dioxide 24 Anion Gap 13 BUN 27.0 H Creatinine 1.5 H Est GFR (CKD-EPI)AfAm 45.30 Est GFR (CKD-EPI)NonAf 39.09 POC Glucometer 253 Random Glucose 222 H Calcium 9.5 Phosphorus Magnesium Total Bilirubin 1.0 Direct Bilirubin 0.6 H AST 29 ALT 43 Alkaline Phosphatase 199 H Total Protein 6.9 Albumin 3.3 L Urine Color Urine Appearance Urine pH Ur Specific [place] Urine Protein Urine Glucose (UA) Urine Ketones Urine Blood Urine Nitrite Urine Bilirubin Urine Urobilinogen Ur Leukocyte Esterase Ur Random Creatinine Ur Random Urea Nitrogn 184 L 11/25/19 11/25/19 11/25/19 19:10 19:10 20:49 WBC RBC Hgb Hct MCV MCH MCHC RDW Plt Count MPV Absolute Neuts (auto) Neutrophils % Lymphocytes % Monocytes % Eosinophils % Basophils % Nucleated RBC % Sodium Potassium Chloride Carbon Dioxide Anion Gap BUN Creatinine Est GFR (CKD-EPI)AfAm Est GFR (CKD-EPI)NonAf POC Glucometer 142 Random Glucose Calcium Phosphorus Magnesium Total Bilirubin Direct Bilirubin AST ALT Alkaline Phosphatase Total Protein Albumin Urine Color Yellow Urine Appearance Clear Urine pH 6.0 Ur Specific [place] 1.009 L Urine Protein Negative Urine Glucose (UA) Negative Urine Ketones Negative Urine Blood Negative Urine Nitrite Negative Urine Bilirubin Negative Urine Urobilinogen 1.0 Ur Leukocyte Esterase Negative Ur Random Creatinine 23.0 L Ur Random Urea Nitrogn 11/26/19 11/26/19 11/26/19 05:24 06:00 08:55 WBC 7.2 RBC 3.99 Hgb 10.1 L Hct 32.5 MCV 81.6 MCH 25.3 L MCHC 31.0 L RDW 20.1 H Plt Count 235 MPV 9.0 Absolute Neuts (auto) 5.3 Neutrophils % 73.8 D Lymphocytes % 15.7 D Monocytes % 7.7 Eosinophils % 1.6 Basophils % 1.2 Nucleated RBC % 0 Sodium 140 Potassium 3.8 Chloride 104 Carbon Dioxide 26 Anion Gap 10 BUN 25.5 H Creatinine 1.3 Est GFR (CKD-EPI)AfAm 53.86 Est GFR (CKD-EPI)NonAf 46.47 POC Glucometer 271 Random Glucose 275 H Calcium 8.7 Phosphorus 3.5 Magnesium 1.5 L Total Bilirubin 1.0 Direct Bilirubin AST 22 ALT 33 Alkaline Phosphatase 150 H Total Protein 6.1 L Albumin 2.8 L Urine Color Urine Appearance Urine pH Ur Specific [place] Urine Protein Urine Glucose (UA) Urine Ketones Urine Blood Urine Nitrite Urine Bilirubin Urine Urobilinogen Ur Leukocyte Esterase Ur Random Creatinine Ur Random Urea Nitrogn 11/26/19 12:17 WBC RBC Hgb Hct MCV MCH MCHC RDW Plt Count MPV Absolute Neuts (auto) Neutrophils % Lymphocytes % Monocytes % Eosinophils % Basophils % Nucleated RBC % Sodium Potassium Chloride Carbon Dioxide Anion Gap BUN Creatinine Est GFR (CKD-EPI)AfAm Est GFR (CKD-EPI)NonAf POC Glucometer 262 Random Glucose Calcium Phosphorus Magnesium Total Bilirubin Direct Bilirubin AST ALT Alkaline Phosphatase Total Protein Albumin Urine Color Urine Appearance Urine pH Ur Specific [place] Urine Protein Urine Glucose (UA) Urine Ketones Urine Blood Urine Nitrite Urine Bilirubin Urine Urobilinogen Ur Leukocyte Esterase Ur Random Creatinine Ur Random Urea Nitrogn Active Medications Generic Name Dose Route Start Last Admin Trade Name [place] PRN Reason Stop Dose Admin Digoxin 0.125 mg 11/24/19 10:00 11/26/19 09:15 Lanoxin - PO 0.125 mg DAILY SOREN Administration Furosemide 60 mg 11/26/19 14:00 Lasix - PO BID@0600,1400 [facility] Insulin Aspart 1 vial 11/24/19 07:00 11/26/19 12:19 Novolog Vial Sliding Scale - SQ 6 units ACHS SOREN Administration Protocol Loratadine 10 mg 11/24/19 02:19 Claritin - PO DAILY PRN ALLERGIES Metoprolol Succinate 25 mg 11/24/19 13:15 11/26/19 09:15 Toprol Xl - PO 25 mg BID [facility] Administration Montelukast Sodium 10 mg 11/24/19 22:00 11/25/19 21:14 Singulair - PO 10 mg HS SOREN Administration Pantoprazole Sodium 40 mg 11/24/19 10:00 11/26/19 09:15 Protonix - PO 40 mg DAILY SOREN Administration Rivaroxaban 20 mg 11/25/19 18:00 11/25/19 17:02 Xarelto PO 20 mg DAILY@1800 [facility] Administration Sacubitril/Valsartan 1 tab 11/24/19 10:00 11/25/19 10:19 Entresto 24 Mg-26 Mg Tablet PO 1 tab BID SOREN Administration Spironolactone 25 mg 11/24/19 10:00 11/25/19 10:19 Aldactone - PO 25 mg BID SOREN Administration Tramadol HCl 50 mg 11/25/19 17:49 11/26/19 06:16 Ultram - PO 50 mg Q12H PRN Administration PAIN LEVEL 6-10 ASSESSMENT/PLAN: 54 F HFrEF Cocaine abuse HTN HLD Bipolar disorder ALICE on CKD Afib on AC Plan: ALICE improved with holding diuretics, Entresto and hold lasix per Cardiology Renal following Avoid BB due to cocaine use, non-compliant w/ AICD appointments despite extensive education Cont. HF meds PO Clindamycin for LE ulcer DC home with Cardiology follow up and PMD follow up
== END 2019-11-27 15:00 | disposition home or self-care (01) | DRG 194 ==
LOC: JER 19:07 → JERBED 21:23 → J4W 11-24 12:40
PROVIDERS: ADMIT Internal Medicine
DX: I13.0 Hypertensive heart and chronic kidney disease with heart failure and stage 1 through stage 4 chronic kidney disease, or unspecified chronic kidney disease (principal); I50.23 Acute on chronic systolic (congestive) heart failure; E78.5 Hyperlipidemia, unspecified; F17.210 Nicotine dependence, cigarettes, uncomplicated; J44.9 Chronic obstructive pulmonary disease, unspecified; F14.10 Cocaine abuse, uncomplicated; I48.91 Unspecified atrial fibrillation; E66.9 Obesity, unspecified; Z68.38 Body mass index [BMI] 38.0-38.9, adult; I47.2 Ventricular tachycardia; L97.918 Non-pressure chronic ulcer of unspecified part of right lower leg with other specified severity; N17.9 Acute kidney failure, unspecified; I42.8 Other cardiomyopathies; J45.901 Unspecified asthma with (acute) exacerbation; Z91.14 Patient's other noncompliance with medication regimen; E11.621 Type 2 diabetes mellitus with foot ulcer; I25.10 Atherosclerotic heart disease of native coronary artery without angina pectoris; F31.9 Bipolar disorder, unspecified; N18.9 Chronic kidney disease, unspecified
CPT/HCPCS: 36415; 71045-TC-FY; 80048; 80051; 80053; 80162; 80307; 81003; 82248; 82550; 82565; 82803; 82962; 83735; 83880; 84100; 84484; 84540; 85025; 85027; 85610; 85730; 87040; 87070; 87186; 87205; 93005; 93010; 93970-TC; 99285-25; J0131; U0003

== ENCOUNTER 2019-12-04 11:26 | Inpatient (IN) | payer OTHER ==
--- NOTE | 2019-12-04 12:11 | PDOC ---
History of Present Illness - General Chief Complaint: Wound Stated Complaint: WOUND CARE Past History - Medical History Allergies/Adverse Reactions: Allergies Allergy/AdvReac Type Severity Reaction Status Date / Time amoxicillin trihydrate Allergy Intermediate Swelling Verified 12/04/19 11:47 [From Augmentin] potassium clavulanate Allergy Intermediate Swelling Verified 12/04/19 11:47 [From Augmentin] amoxicillin Allergy Verified 12/04/19 11:47 Home Medications: Ambulatory Orders Loratadine 10 mg PO DAILY PRN 06/30/19 Cholecalciferol (Vitamin D3) [Vitamin D3 -] 50,000 unit PO WEEKLY 09/16/19 Fluticasone Propion/Salmeterol [Wixela 500-50 Inhub] 1 inhaler IN BID 09/16/19 Insulin Glargine,Hum.rec.anlog [Basaglar Kwikpen U-100] 38 unit SQ DAILY 09/16/19 Collagenase Clostridium Hist. [Santyl -] 1 applic TP DAILY #1 tube 10/17/19 Docusate Sodium [Colace -] 100 mg PO TID #90 capsule 10/17/19 Montelukast Sodium [Singulair] 10 mg PO HS #30 tablet 10/17/19 Pantoprazole Sodium [Protonix -] 40 mg PO DAILY #30 tab 10/17/19 Rivaroxaban [Xarelto -] 20 mg PO DAILY #30 tablet 10/17/19 Sacubitril/Valsartan [Entresto 24 mg-26 mg Tablet] 1 tab PO BID #60 tablet 10/17/19 Spironolactone [Aldactone -] 25 mg PO BID #60 tablet 10/17/19 Furosemide [Lasix -] 60 mg PO BID@0600,1400 10/27/19 Metoprolol Succinate [Toprol Xl] 25 mg PO BID 11/06/19 Digoxin [Lanoxin -] 0.125 mg PO DAILY #30 tablet 11/08/19 Liraglutide [Victoza -] 1.2 mg SQ DAILY 11/08/19 Insulin Glargine,Hum.rec.anlog [Lantus] 30 unit SQ HS 12/04/19 Asthma: Yes Cancer: No Cardiac Disorders: Yes (reduced ejection fraction of 23%, OR 2018) CVA: No COPD: Yes CHF: Yes (with pulmonary HTN) Diabetes: Yes Disorders: No HTN: Yes Hypercholesterolemia: Yes Liver Disease: No Psychiatric Problems: Yes (bipolar) Seizures: No Thyroid Disease: No - Surgical History Cardiac Surgery: No Cholecystectomy: Yes Neurologic Surgery: No Orthopedic Surgery: Yes (left knee replacemet - 1996) - Reproductive History Is Patient Now?: No - Immunization History Immunization Up to Date: No - Psycho-Social/Smoking History Smoking Status: No Smoking History: Current every day smoker Have you smoked in the past 12 months: No Number of Cigarettes Smoked Daily: 2 If you are a former smoker, when did you quit?: 2019 Information on smoking cessation initiated: No 'Breaking Loose' booklet given: 11/06/19 - Substance Abuse Hx (Audit-C & DAST Scrn) How often the patient has a drink containing alcohol: Never Score: In Men: 4 or > Positive; In Women: 3 or > Positive: 0 Screen Result (Pos requires Nsg. Audit-10AR): Negative In the last yr the pt used illegal drug/Rx for NonMed reason: No Score: Yes response is considered Positive: 0 Screen Result (Positive result requires Nsg. DAST-10): Negative *Physical Exam - Vital Signs Last Vital Signs Temp Pulse Resp BP Pulse Ox 97.5 F L 102 H 18 136/100 100 12/04/19 11:47 12/04/19 11:47 12/04/19 11:47 12/04/19 11:47 12/04/19 11:47 ED Treatment Course - LABORATORY CBC & Chemistry Diagram: 12/04/19 13:35 12/04/19 13:35 Medical Decision Making - Medical Decision Making 12/04/19 12:10 HPI: 54yo F hx HFrEF (EF 30-35% 09/18/19), AFib (on Xarelto), insulin dependent diabetes mellitus, hypertension, hyperlipidemia, asthma, morbid obesity, chronic LLE wound and cocaine use disorder sent from wound care for admission for LLE cellulitis. Told 4 days ago to come in but shot on that day so didn't come until now. Endorses wound x6mo (started from minor trauma), had surgery done on it and been unchanged appearance since then (white on inside and black on surrounding borders), being seen by wound care, not on antibiotics, endorses multiple months of purulent drainage unchanged, pain worsening x1wk, warmth of unknown duration, no bleeding, no redness or colour change. Denies F/C, N/V, CP, SOB, abdominal pain, numbness/tingling, weakness, new difficulty walking. Rashawn Hernandez Daniel Patel,Pablo ROS: Constitutional: Negative for chills, fever, fatigue, diaphoresis. HENT: Negative for sore throat, rhinorrhea, congestion. Eyes: Negative for visual disturbance. Respiratory: Negative for shortness of breath, cough, and wheezing. Cardiovascular: Negative for chest pain, palpitations, and leg swelling. Gastrointestinal: Negative for abdominal pain, blood in stool, constipation, diarrhea, nausea, and vomiting. Genitourinary: Negative for dysuria, flank pain, and hematuria. Musculoskeletal: Negative for myalgias, back pain, and neck pain. Skin: Positive for L calf wound, purulence, warmth, pain. Neurological: Negative for light-headedness, dizziness, vertigo, syncope, weakness, numbness and headaches. Psychiatric/Behavioral: Negative for behavioral problems and confusion. PE: Gen: Alert, NAD, comfortable-appearing, morbidly obese, lying on stomach HEENT: PERRL, EOMI, MMM, NCAT. No conjunctival pallor. Sclera are non-icteric. CV: Regular rate and rhythm. No murmurs, rubs, or gallops. PULM: No resp distress. CTAB, no wheezes, rales, or rhonchi. ABD: soft, proberant, NT/ND, no rebound tenderness or guarding, no CVA tenderness. BACK: No TTP of c/t/l-spine. No step-offs or deformities. MSK: No bony deformities. 2+ pulses in all extremities. NEURO: AAOx3. PERRL. No gross CN deficits. Strength and sensation grossly intact throughout. LLE: tender calf wound circular 3cm diameter 1cm deep white granulomatous bottom, black borders, no drainage or bleeding, no redness, + surrounding warmth and tenderness. 5/5 strength, wiggles toes appropriately, SILT throughout. No edema. EXTREMITIES: No cyanosis. No clubbing. No edema. No calf tenderness. PSYCH: Normal mood and thought pattern. SKIN: Warm and dry. Normal capillary refill. See LLE exam. No jaundice. MDM: 54yo F hx HFrEF (EF 30-35% 09/18/19), AFib (on Xarelto), insulin dependent diabetes mellitus, hypertension, hyperlipidemia, asthma, morbid obesity, chronic LLE wound and cocaine use disorder sent from wound care for admission for LLE cellulitis. Hemodynamically stable, afebrile, LLE wound and surrounding cellulitis, LLE neurovascularly intact. Ddx: wound with cellulitis. No crepitus, fluctuance, extreme pain, or s/s concerning for nec fasc, asbcess, or osteomyelitis - further eval with XR. No systemic s/s. No neurovascular compromise. Very low concern for DVT due to lack of swelling or hx DVT/PE, presentation c/w cellulitis, and pt on xeralto. -CBC,CMP,Coags,Lact,BC -EKG -CXR -XR L tib/fib -Ofirmev -Vanc, Zosyn -Consult Will wound care: called, not spoken to yet -Admit for IV antibiotics per wound care 12/04/19 13:29 CXR reviewed: Large heart; no acute pathology EKG reviewed: Afib w/RVR, 110bpm, QTc 452ms, no e/o acute ischemia or significant changes from prior 12/04/19 14:27 Labs reviewed. Notabe for hyperglycemia 427, lact 2.6, Na 132 -10units novolog SQ -500ml NS -Admit 12/04/19 15:25 Signed out to admitting team. 12/04/19 20:38 XR reviewed - no gas in tissue, no fx or bone abnormality noted Lact uptrending to 3.1. Nurses attempted to contact admitting team without response. -500ml NS -Continue to attempt to inform admitting team Discharge - Discharge Information Problems reviewed: Yes Clinical Impression/Diagnosis: Left leg cellulitis, Morbid obesity, Hyperglycemia Condition: Stable - Admission Yes - Follow up/Referral - Patient Discharge Instructions - Post Discharge Activity
[2019-12-04] MEDS ORDERED: ACETAMINOPHEN 1000 MG/100 ML VIAL (NON FORMULARY) IVPB ONE (12:47)
[2019-12-04] MEDS ORDERED: ACETAMINOPHEN INJECTION 100 ML IVPB ONE (12:55)
[2019-12-04] MEDS ORDERED: PIPERACILLIN/TAZOB 4.5 GM 4.5 GM in DEXTROSE 5%-WATER 100 ML IVPB ONE (13:00)
--- NOTE | 2019-12-04 13:05 | PDOC ---
Attending Attestation - Resident Resident Name: MatteowilfredoChristi - ED Attending Attestation I have performed the following: I have examined & evaluated the patient, The case was reviewed & discussed with the resident, I agree w/resident's findings & plan - HPI HPI: 12/04/19 13:03 54yo F hx HFrEF, AFib (on Xarelto), insulin dependent diabetes mellitus, hypertension, hyperlipidemia, asthma, chronic LLE wound and cocaine use disorder presenting here for admission for LLE wound management from 11/30/[address] Will. Cardio - [place],Rashawn Espinoza,Fili Will,Pablo, D 12/04/19 13:53 - Physicial Exam PE: 12/04/19 13:04 Agree with the resident's HPI and PE as documented in the electronic medical record. NAD, well appearing, EOMI, PERRL, nl conjunctiva, anicteric; neck supple. no respiratory distress, irregular irregular, abdomen soft nontender. no rebound, guarding. Back nontender. BUSTOS x4, no focal neuro deficits. No peripheral edema. normal color for ethnicity, WWP. +LLE posterior calf 4x4cm dry wound/ulceration with some granulation tissue. 12/04/19 13:53 - Medical Decision Making 12/04/19 13:04 Vital Signs Temp Pulse Resp BP Pulse Ox 97.5 F L 102 H 18 136/100 100 12/04/19 11:47 12/04/19 11:47 12/04/19 11:47 12/04/19 11:47 12/04/19 11:47 Vital signs reviewed, afebrile, mild tachycardia likely due to pain, mildly hypertensive, otherwise unremarkable ddx. cellulitis, chronic wound, abscess, osteomyelitis, doubt nec fasciitis. IV vancomycin and zosyn has tolerated zosyn previously analgesia basic labs and lytes with hyperglycemia, lactic acidosis give fluids insulin SQ, recheck bgm admit 12/04/19 13:54 12/04/19 16:26 Heart Score/ECG Review #1 ECG reviewed & interpreted by me at: 13:20 12/04/19 13:52 EKG atrial fibrillation 110 bpm, no interval abnormalities, narrow QRS, ST and T wave segments and morphology normal. Nonspecific T wave abnormalities Discharge - Discharge Information Problems reviewed: Yes Clinical Impression/Diagnosis: Left leg cellulitis, Morbid obesity, Hyperglycemia Condition: Stable - Admission Yes - Follow up/Referral - Patient Discharge Instructions - Post Discharge Activity
[2019-12-04] MEDS ORDERED: VANCOMYCIN 2,000 MG in DEXTROSE 5%-WATER - 500 ML IVPB ONE (13:15)
[2019-12-04] MEDS ORDERED: VANCOMYCIN 1 GRAM (PRE-DOCKED) 1,000 MG/250 ML BAG IVPB ONE (13:20)
[2019-12-04] MEDS ORDERED: PIPERACILLIN/TAZOB 4.5 GM 4.5 GM/100 ML BAG IVPB ONE (13:20)
[2019-12-04] MEDS ORDERED: VANCOMYCIN 500 MG VIAL (RESTRICTED TO ID ONLY) ONE (13:21)
[2019-12-04 13:45] LABS: BASO % 0.4 % (0-2.0); EOS % 1.6 % (0-4.5); HEMATOCRIT 31.6 % (32.4-45.2); HEMOGLOBIN 9.7 GM/dL (10.7-15.3); MCH 24.7 pg (25.7-33.7); MCHC 30.7 g/dl (32.0-36.0); MEAN CELL VOLUME 80.4 fl (80-96); MEAN PLT VOLUME 8.7 fl (7.5-11.1); MONO % 8.5 % (3.8-10.2); NEUT % 66.5 % (42.8-82.8); PLATELET COUNT 303 K/MM3 (134-434); RBC 3.92 M/mm3 (3.60-5.2); RDW 19.9 % (11.6-15.6); WHITE BLOOD COUNT 5.8 K/mm3 (4.0-10.0)
[2019-12-04 13:52] LABS: INR 2.12 (0.83-1.09); PROTHROMBIN TIME (PATIENT) 25.2 SEC (9.7-13.0)
[2019-12-04 13:55] LABS: ACTIVATED PTT 33.5 SECONDS (25.2-36.5)
[2019-12-04 14:18] LABS: ALBUMIN 3.2 g/dl (3.4-5.0); BILIRUBIN,TOTAL 1.2 mg/dL (0.2-1); BLOOD UREA NITROGEN 17.6 mg/dL (7-18); CALCIUM 9.2 mg/dL (8.5-10.1); CREATININE 1.1 mg/dL (0.55-1.3); POTASSIUM 4.7 mmol/L (3.5-5.1); TOT PROT 7.1 g/dl (6.4-8.2)
[2019-12-04] MEDS ORDERED: INSULIN (NOVOLOG) ASPART 100 UNITS/ML 10ML VIAL SQ ONE (14:25)
[2019-12-04] MEDS ORDERED: SODIUM CHLORIDE 0.9% 500 ML INFUS.BAG IV ONE ×2 (14:28→20:36)
--- NOTE | 2019-12-04 15:00 | PN ---
Teaching Attending Note Name of Resident: Vasu Smith ATTENDING PHYSICIAN STATEMENT I saw and evaluated the patient. I reviewed the resident's note and discussed the case with the resident. I agree with the resident's findings and plan as documented. SUBJECTIVE: 54 year old AAF with known history of CHF (EF 30-35% 09/18/19), Afib on Xarelto, IDDM, hypertension, hyperlipidemia, asthma, morbid obesity, chronic LLE edema and PAD, current smoker and cocaine user who presents with chronic LLE ulcer. She was previously being seen at the wound care center, currently not on antibiotics, who reports increasing pain of the extremity. The erythema and swelling have been present for months. OBJECTIVE: Gen morbidly obese female who appears appropriate for stated age, not in acute distress HEENT: EOMI neck: supple, no JVD elevation CVS: RRR abd: soft, nontender, obese pannus, nondistended, +BS ext: pitting trace lower extremity edema with peau d' orange appearance noted on the right leg. The chronic ulcer is at the posterior distal third of the LLE. There is appreciable erythema of soft tissue surrouding site. prescriptionist; no motor nor sensory deficit ASSESSMENT AND PLAN: 1. Pain of the LLE - Offirmev, tylenol and non-narcotic agents to treat pain are preferred - antibiotics IV - culture the wound - local wound care - Dr Will (vascular consult) already called by ED 2. DM 2 3. current smoker - counseled re: smoking cession 4. Afib - cont xarelto - rate is controlled 5. CHF with reduced EF 6. DVT prophylaxis - Roby Smith, agree with history, exam and plans of care.
[2019-12-04] MEDS ORDERED: INSULIN SLIDING SCALE (NOVOLOG) 1 VIAL SQ SCH ×2 (17:42→22:00)
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
[2019-12-04] MEDS ORDERED: ACETAMINOPHEN 325 MG TABLET (FP) PO PRN (19:10)
[2019-12-04] MEDS ORDERED: INSULIN SLIDING SCALE (NOVOLOG) 1 VIAL SQ ONE (19:52)
[2019-12-04] MEDS ORDERED: PIPERACILLIN/TAZOB 3.375 GM 3.375 GM/50 ML BAG IVPB ONE (20:12)
[2019-12-04] MEDS: PIPERACILLIN/TAZOB 3.375 GM 3.375 GM in DEXTROSE 5%-WATER - 50 ML IVPB SCH ×2 (20:16→20:18)
[2019-12-04 20:35] LABS: N-TERMINAL BNP 3258.7 pg/ml (5-125)
[2019-12-04] MEDS: NICOTINE 7 MG/24 HOURS TOPICAL PATCH TD SCH (21:42)
[2019-12-04] MEDS ORDERED: PATIENT'S OWN MEDICATION (NON-FORMULARY) (Fluticasone Propion/Salmeterol [Wixela 500-50 In IN SCH (22:00)
[2019-12-04] MEDS ORDERED: PATIENT'S OWN MEDICATION (NON-FORMULARY) (Insulin Glargine,Hum.Rec.Anlog [Lantus] 30 UNIT) SQ SCH (22:00)
[2019-12-04] MEDS: INSULIN (LEVEMIR) 100 UNITS/ML UNITS SQ SCH (23:23)
[2019-12-04] MEDS: DOCUSATE SODIUM 100 MG CAPSULE (FP) PO SCH (23:24)
[2019-12-04] MEDS: metoPROLOL SUCCINATE 25 MG TAB.SR.24H (FP) PO SCH (23:24)
[2019-12-04] MEDS: SPIRONOLACTONE 25 MG TABLET PO SCH (23:26)
[2019-12-04] MEDS: MONTELUKAST NA 10 MG TABLET PO SCH (23:26)
[2019-12-04] MEDS: BUDESONIDE/FORMETEROL FUMARATE 160/4.5 mcg INHALER IH SCH (23:27)
[2019-12-04] MEDS: SACUBITRIL/VALSARTAN 24 MG-26 MG TABLET PO SCH (23:27)
[2019-12-04] MEDS: INSULIN SLIDING SCALE (NOVOLOG) 1 VIAL SQ SCH (23:28)
[2019-12-05] MEDS: ACETAMINOPHEN 325 MG TABLET (FP) PO PRN ×2 (00:53→06:42)
[2019-12-05] MEDS ORDERED: ALBUTEROL SO4 HFA INHALER IH PRN (00:59)
[2019-12-05] MEDS ORDERED: PIPERACILLIN/TAZOBACTAM 3.375 GM VIAL IVPB ONE ×2 (02:09→09:41)
[2019-12-05] MEDS ORDERED: DEXTROSE 5%-WATER - 50 ML IVPB ONE ×2 (02:09→09:41)
[2019-12-05 02:15] VITALS: BMI 37.5
[2019-12-05] MEDS: PIPERACILLIN/TAZOB 3.375 GM 3.375 GM in DEXTROSE 5%-WATER - 50 ML IVPB SCH ×2 (02:27→09:49)
[2019-12-05] MEDS ORDERED: FUROSEMIDE 40 MG TABLET (FP) PO SCH (06:00)
[2019-12-05] MEDS: DOCUSATE SODIUM 100 MG CAPSULE (FP) PO SCH ×4 (06:18→22:00)
[2019-12-05] MEDS: INSULIN SLIDING SCALE (NOVOLOG) 1 VIAL SQ SCH ×4 (06:19→21:52)
[2019-12-05] MEDS ORDERED: INSULIN (NOVOLOG) ASPART 100 UNITS/ML 10ML VIAL ONE ×3 (06:32→18:18)
[2019-12-05] MEDS ORDERED: INSULIN (LEVEMIR) 100 UNITS/ML UNITS SQ ONE ×2 (06:33→18:17)
[2019-12-05] MEDS ORDERED: PT OWN MED DRAWER 7, Y5N ONE ×5 (06:45→21:43)
[2019-12-05] MEDS ORDERED: INSULIN (LEVEMIR) 100 UNITS/ML UNITS SQ SCH (07:00)
--- NOTE | 2019-12-05 08:27 | CONSULT ---
- Consultation REQUESTING PROVIDER: CONSULT REQUEST: We have been asked to surgically evaluate this patient for (specify). PCP:Lucy Richards MD HPI: Called to eval patient who is very well know to the Wound Care Service. We were recently consulted on 11/26/19 for same issue as todays request for surgical consult. Has chronic LLE wound which was cleaned by Dr. Will on a previous hospital admission 10/26/19. Also, she has a RLE wound which healed with the help of HBO therapy. Patient supposed to f/u w/ Dr. Will on 11/30/19 for possible application of Apligraf but apparently ID/Bobde concerned for infection and told patient to be eval for admit and iv abx. Denies n/v/f/c. Denies malodorous, purulent drainage, erythema. Last Vital Signs Temp Pulse Resp BP Pulse Ox 97.4 F L 80 20 123/78 100 12/05/19 06:00 12/05/19 06:00 12/05/19 06:00 12/05/19 06:00 12/05/19 06:00 CBC, BMP 12/04/19 13:35 12/04/19 13:35 PE: GENERAL: a&o. nad LE: 2+ DP/PT pulses, warm, well-perfused. No calf tenderness. Mild peripheral edema. LLE with 3cm x 3cm wound is clean with mixed fibrogranular base. PSYCH: Cooperative. Good eye contact. Appropriate mood and affect. A/P: Chronic LLE wound 3cm x 3cm, mixed fibrogranular base. No leukocytosis. Afebrile. Non-toxic appearing -Elevate the lower extremity above the level of the heart at all times while at rest -Domeboro soaks QD (astringent for pruritus) -Apply Lac hydrin daily (for dry scaly skin) -Santyl dressing changes daily (ordered) -f/u in Wound Care Clinic upon discharge for re-evaluation of Apligraf -No further surgical input -Cont care per medicine -Re-consult prn Above discussed with Dr. Will and agrees. Problem List - Problems (1) Diabetic ulcer of left lower leg Code(s): E11.622 - TYPE 2 DIABETES MELLITUS WITH OTHER SKIN ULCER; L97.929 - NON-PRS CHRONIC ULC UNSP PRT OF L LOW LEG W UNSP SEVERITY (2) Morbid obesity Code(s): E66.01 - MORBID (SEVERE) OBESITY DUE TO EXCESS CALORIES (3) Uncontrolled type 2 diabetes mellitus Code(s): E11.65 - TYPE 2 DIABETES MELLITUS WITH HYPERGLYCEMIA Visit type - Case Type Case Type: ED Admission - Emergency Emergency Visit: Yes ED Registration Date: 12/04/19 Care time: The patient presented to the Emergency Department on the above date and was hospitalized for further evaluation of their emergent condition. - New patient This patient is new to me today: Yes Date on this admission: 12/05/19
--- NOTE | 2019-12-05 09:23 | EKG ---
Test Reason : Blood Pressure : / mmHG Vent. Rate : 110 BPM Atrial Rate : 326 BPM P-R Int : 000 ms QRS Dur : 096 ms QT Int : 334 ms P-R-T Axes : 000 101 -65 degrees QTc Int : 452 ms POOR DATA QUALITY, INTERPRETATION MAY BE ADVERSELY AFFECTED ATRIAL FIBRILLATION WITH RAPID VENTRICULAR RESPONSE WITH PREMATURE VENTRICULAR OR ABERRANTLY CONDUCTED COMPLEXES LATERAL INFARCT , AGE UNDETERMINED ABNORMAL ECG WHEN COMPARED WITH ECG OF 28-NOV-2019 06:52, VENT. RATE HAS INCREASED BY 37 BPM Confirmed by George Campos MD ([id number]) on 12/05/2019 9:23:07 AM Referred By: Confirmed By:George Campos MD
[2019-12-05] MEDS: SPIRONOLACTONE 25 MG TABLET PO SCH ×2 (09:46→21:45)
[2019-12-05] MEDS: PANTOPRAZOLE 40 MG TABLET PO SCH (09:47)
[2019-12-05] MEDS: SACUBITRIL/VALSARTAN 24 MG-26 MG TABLET PO SCH ×2 (09:47→21:45)
[2019-12-05] MEDS: metoPROLOL SUCCINATE 25 MG TAB.SR.24H (FP) PO SCH ×2 (09:48→21:45)
[2019-12-05] MEDS: DIGOXIN 0.125 MG TABLET (FP) PO SCH (09:48)
[2019-12-05] MEDS: RIVAROXABAN 20 MG TABLET PO SCH (09:49)
[2019-12-05] MEDS: NICOTINE 7 MG/24 HOURS TOPICAL PATCH TD SCH ×2 (09:51→18:22)
[2019-12-05] MEDS: BUDESONIDE/FORMETEROL FUMARATE 160/4.5 mcg INHALER IH SCH ×2 (09:52→21:53)
[2019-12-05] MEDS ORDERED: PATIENT'S OWN MEDICATION (NON-FORMULARY) (Insulin Glargine,Hum.Rec.Anlog [Basaglar Kwikpen SQ SCH (10:00)
[2019-12-05] MEDS ORDERED: VANCOMYCIN 1,000 MG in DEXTROSE 5%-WATER - 250 ML IVPB SCH (10:00)
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
[2019-12-05] MEDS ORDERED: ACETAMINOPHEN 325 MG TABLET (FP) PO PRN (10:23)
--- NOTE | 2019-12-05 11:07 | PN ---
Physical Exam: SUBJECTIVE: Patient seen and examined. Pt. states that because of dealing with her 's situation, Pt. has not been adherent to her medications. Pt. states that she has pain that radiates from the wound to the feet. Pt. states she was referred from wound care because of increased warmth to the area and because of redness. Pt. denies any fever or chills. Case discussed with wound care who agrees that the wound is clean and that when appropriate Pt. will need apple graft. Pt. endorses shortness of breath and dyspnea with minimal exertion (sitting up repeatedly or walking to bathroom). OBJECTIVE: Vital Signs Period Temp Pulse Resp BP Sys/Khanna Pulse Ox Last 24 Hr 97.4 F-98.6 F 60-110 14-21 123-152/78-111 95-100 GENERAL: The patient is awake, alert, and fully oriented, in acute distress. HEAD: Normal with no signs of trauma. EYES: Sclera anicteric, conjunctiva clear. ENT: Ears normal, nares patent, oropharynx clear without exudates, dry mucous membranes. NECK: Trachea midline, full range of motion, supple. JVD+ LUNGS: Breath sounds equal, clear to auscultation bilaterally, no wheezes, no crackles, no accessory muscle use. HEART: Regular rate and rhythm, S1, S2 without murmur ABDOMEN: Soft, nontender, nondistended, normoactive bowel sounds, no guarding, no rebound EXTREMITIES: 2+ radial pulses, 1+ dorsal pedal, warm at level of the wound1+ edema. NEUROLOGICAL: Normal speech, gait not observed. PSYCH: Normal mood, normal affect. SKIN: Warm, dry around wound site. Wound is C/D/I Laboratory Results - last 24 hr 12/04/19 12/04/19 12/04/19 13:35 13:35 13:35 WBC 5.8 RBC 3.92 Hgb 9.7 L Hct 31.6 L MCV 80.4 MCH 24.7 L MCHC 30.7 L RDW 19.9 H Plt Count 303 MPV 8.7 Absolute Neuts (auto) 3.8 Neutrophils % 66.5 Lymphocytes % 23.0 Monocytes % 8.5 Eosinophils % 1.6 Basophils % 0.4 Nucleated RBC % 0 PT with INR 25.20 H INR 2.12 H PTT (Actin FS) 33.5 Sodium 132 L Potassium 4.7 Chloride 99 Carbon Dioxide 20 L Anion Gap 13 BUN 17.6 Creatinine 1.1 Est GFR (CKD-EPI)AfAm 65.92 Est GFR (CKD-EPI)NonAf 56.87 POC Glucometer Random Glucose 427 H* Lactic Acid Calcium 9.2 Total Bilirubin 1.2 H AST 31 ALT 36 Alkaline Phosphatase 184 H C-Reactive Protein 1.5 H B-Natriuretic Peptide 3258.7 H Total Protein 7.1 Albumin 3.2 L COVID-19 ([facility]IE) 12/04/19 12/04/19 12/04/19 13:35 15:12 17:08 WBC RBC Hgb Hct MCV MCH MCHC RDW Plt Count MPV Absolute Neuts (auto) Neutrophils % Lymphocytes % Monocytes % Eosinophils % Basophils % Nucleated RBC % PT with INR INR PTT (Actin FS) Sodium Potassium Chloride Carbon Dioxide Anion Gap BUN Creatinine Est GFR (CKD-EPI)AfAm Est GFR (CKD-EPI)NonAf POC Glucometer 354 Random Glucose Lactic Acid 2.6 H* Calcium Total Bilirubin AST ALT Alkaline Phosphatase C-Reactive Protein B-Natriuretic Peptide Total Protein Albumin COVID-19 ([facility]IE) Not detected 12/04/19 12/04/19 12/04/19 18:35 19:27 23:20 WBC RBC Hgb Hct MCV MCH MCHC RDW Plt Count MPV Absolute Neuts (auto) Neutrophils % Lymphocytes % Monocytes % Eosinophils % Basophils % Nucleated RBC % PT with INR INR PTT (Actin FS) Sodium Potassium Chloride Carbon Dioxide Anion Gap BUN Creatinine Est GFR (CKD-EPI)AfAm Est GFR (CKD-EPI)NonAf POC Glucometer 469 194 Random Glucose Lactic Acid 3.1 H* Calcium Total Bilirubin AST ALT Alkaline Phosphatase C-Reactive Protein B-Natriuretic Peptide Total Protein Albumin COVID-19 ([facility]) 12/05/19 12/05/19 00:45 06:17 WBC RBC Hgb Hct MCV MCH MCHC RDW Plt Count MPV Absolute Neuts (auto) Neutrophils % Lymphocytes % Monocytes % Eosinophils % Basophils % Nucleated RBC % PT with INR INR PTT (Actin FS) Sodium Potassium Chloride Carbon Dioxide Anion Gap BUN Creatinine Est GFR (CKD-EPI)AfAm Est GFR (CKD-EPI)NonAf POC Glucometer 168 Random Glucose Lactic Acid 2.8 H* Calcium Total Bilirubin AST ALT Alkaline Phosphatase C-Reactive Protein B-Natriuretic Peptide Total Protein Albumin COVID-19 ([facility]) Active Medications Generic Name Dose Route Start Last Admin Trade Name Kendrickq PRN Reason Stop Dose Admin Acetaminophen 650 mg 12/04/19 19:14 12/05/19 06:42 Tylenol - PO 650 mg Q6H PRN Administration PAIN LEVEL 6-10 Albuterol Sulfate 2 puff 12/05/19 00:59 Ventolin Hfa Inhaler - IH Q4H PRN SHORT OF BREATH/WHEEZING Budesonide/Formoterol Fumarate 2 puff 12/04/19 22:00 12/05/19 09:52 Symbicort 160/4.5mcg - IH 2 puff BID [facility] Administration Collagenase 1 applic 12/05/19 10:00 Santyl - TP DAILY [facility] Protocol Digoxin 0.125 mg 12/05/19 10:00 12/05/19 09:48 Lanoxin - PO 0.125 mg DAILY [facility] Administration Docusate Sodium 100 mg 12/04/19 22:00 12/05/19 06:18 Colace - PO Not Given TID [facility] Furosemide 60 mg 12/05/19 14:00 Lasix Injection - IVPB BID@0600,1400 [facility] Vancomycin HCl 1,000 mg/ 250 mls @ 200 mls/hr 12/05/19 10:00 Dextrose IVPB Q24H [facility] Protocol Ertapenem 1 gm/ Sodium 50 mls @ 100 mls/hr 12/05/19 18:00 Chloride IVPB DAILY [facility] Insulin Aspart 1 vial 12/04/19 20:49 12/05/19 06:19 Novolog Vial Sliding Scale - SQ 2 units ACHS [facility] Administration Protocol Insulin Detemir 30 units 12/04/19 22:00 12/04/19 23:23 Levemir Vial SQ 30 units HS [facility] Administration Insulin Detemir 38 units 12/05/19 10:00 Levemir Vial SQ DAILY [facility] Metoprolol Succinate 25 mg 12/04/19 22:00 12/05/19 09:48 Toprol Xl - PO 25 mg BID [facility] Administration Montelukast Sodium 10 mg 12/04/19 22:00 12/04/19 23:26 Singulair - PO 10 mg HS [facility] Administration Nicotine 7 mg 12/04/19 17:00 12/05/19 09:51 Nicoderm Patch - TD 7 mg DAILY [facility] Administration Pantoprazole Sodium 40 mg 12/05/19 10:00 12/05/19 09:47 Protonix - PO 40 mg DAILY [facility] Administration Rivaroxaban 20 mg 12/05/19 10:00 12/05/19 09:49 Xarelto PO 20 mg DAILY [facility] Administration Sacubitril/Valsartan 1 tab 12/04/19 22:00 12/05/19 09:47 Entresto 24 Mg-26 Mg Tablet PO 1 tab BID [facility] Administration Spironolactone 25 mg 12/04/19 22:00 12/05/19 09:46 Aldactone - PO 25 mg BID [facility] Administration ASSESSMENT/PLAN: 54F w/ pmh of HFrEF, AFib (on Xarelto), IDDM, hypertension, hyperlipidemia, asthma, chronic LLE wound and cocaine use disorder, STEMI(2019?) presented to [facility] for concern of LLE wound with warmth, tightness, firmness, itchiness. Originally on 11/30/19, pt was seen in the Wound Care clinic and Dr Eduardo recommended admission for IV abx. Pt physical exam notable for b/l edematous legs, no warmth/redness, open LLE wound. Labwork notable for lactic acid 2.6, elevated glucose 427. XR Left leg is pending read. Admitted for suspected LLE cellulitis, possibly superimposed ontop of chronic venous bl edema dermatitis. #Acute on chronic HFrEF w/ Lower extremity edema Vs. chronic venous insufficiency - Echo(09/18/2019): LVEF 30-35%, mildly dilated LV, mod global hypokinesis - BNP : 2800+ - Increased Lasix 60mg IV NID - monitor I/O, daily weights - cw home Aldactone, Entresto, Metoprol Succ 25 BID, - Lower extremity management as per ID and wound care - low threshold to transfer to telemetry - cardiology consult appreciated - elevated ESR #Chronic Afib - EKG: Afib w/RVR, 110bpm, QTc 452ms - CHADVASC 5 - UDS --pending - cw home Xarelto and Toprol #Substance usage disorder(cocaine, tobacco) - UDS --pending - nicotine patch #Chronic anemia - likely 2/2 to multiple co-morbidities including HF, chronic LLE wound and borderline stage 3 CKD - f/u iron panel --pending - trend CBC #Uncontrolled DM - HbA1c(10/15/19): 10.2 - cw home Lantus 38U AM, 30U PM - ISS - counselled Pt. on importance of sugar control to ensure wound healing #FEN - no IVF - monitor and replete as needed - diabetic/sodium/restricted diet #DVT PPX - c/w Xarelto Visit type - Emergency Visit Emergency Visit: Yes ED Registration Date: 12/04/19 Care time: The patient presented to the Emergency Department on the above date and was hospitalized for further evaluation of their emergent condition. - New Patient This patient is new to me today: No - Critical Care Critical Care patient: No - Discharge Referral Referred to [facility] No ATTENDING PHYSICIAN STATEMENT I saw and evaluated the patient. I reviewed the resident's note and discussed the case with the resident. I agree with the resident's findings and plan as documented. SUBJECTIVE: OBJECTIVE: ASSESSMENT AND PLAN:
[2019-12-05] MEDS ORDERED: VANCOMYCIN 1 GRAM (PRE-DOCKED) 1,000 MG/250 ML BAG IVPB SCH (11:12)
--- NOTE | 2019-12-05 11:14 | PN ---
Teaching Attending Note Name of Resident: Alfonso Devine ATTENDING PHYSICIAN STATEMENT I saw and evaluated the patient. I reviewed the resident's note and discussed the case with the resident. I agree with the resident's findings and plan as documented. SUBJECTIVE: pt seen and examined at bedside, complains from mild dyspnea OBJECTIVE: Last Vital Signs Temp Pulse Resp BP Pulse Ox 97.4 F L 60 20 123/78 100 12/05/19 06:00 12/05/19 09:48 12/05/19 06:00 12/05/19 06:00 12/05/19 06:00 GENERAL: Awake, alert, and fully oriented, in no acute distress. LUNGS: Breath sounds equal, clear to auscultation bilaterally. No wheezes, has crackles. No accessory muscle use. HEART: irregular rate and rhythm, normal S1 and S2 ABDOMEN: obese, Soft, nontender, not distended MUSCULOSKELETAL: Normal range of motion at all joints. No bony deformities or tenderness. No CVA tenderness. UPPER EXTREMITIES: 2+ pulses, warm, well-perfused. No cyanosis. No clubbing. No peripheral edema. LOWER EXTREMITIES: unable to feel pulses, + edema, warm. No calf tenderness. has quarter size stage 3 ulcer, no surrounding erythema, no discharge, clean base and borders (recently debrided) CBCD WBC 5.8 K/mm3 (4.0-10.0) 12/04/19 13:35 RBC 3.92 M/mm3 (3.60-5.2) 12/04/19 13:35 Hgb 9.7 GM/dL (10.7-15.3) L 12/04/19 13:35 Hct 31.6 % (32.4-45.2) L 12/04/19 13:35 MCV 80.4 fl (80-96) 12/04/19 13:35 MCHC 30.7 g/dl (32.0-36.0) L 12/04/19 13:35 RDW 19.9 % (11.6-15.6) H 12/04/19 13:35 Plt Count 303 K/MM3 (134-434) 12/04/19 13:35 MPV 8.7 fl (7.5-11.1) 12/04/19 13:35 CMP Sodium 132 mmol/L (136-145) L 12/04/19 13:35 Potassium 4.7 mmol/L (3.5-5.1) 12/04/19 13:35 Chloride 99 mmol/L (98-107) 12/04/19 13:35 Carbon Dioxide 20 mmol/L (21-32) L 12/04/19 13:35 Anion Gap 13 MMOL/L (8-16) 12/04/19 13:35 BUN 17.6 mg/dL (7-18) 12/04/19 13:35 Creatinine 1.1 mg/dL (0.55-1.3) 12/04/19 13:35 Calcium 9.2 mg/dL (8.5-10.1) 12/04/19 13:35 Total Bilirubin 1.2 mg/dL (0.2-1) H 12/04/19 13:35 AST 31 U/L (15-37) 12/04/19 13:35 ALT 36 U/L (13-61) 12/04/19 13:35 Alkaline Phosphatase 184 U/L (45-117) H 12/04/19 13:35 Total Protein 7.1 g/dl (6.4-8.2) 12/04/19 13:35 Albumin 3.2 g/dl (3.4-5.0) L 12/04/19 13:35 Active Medications Acetaminophen (Tylenol -) 650 mg PO Q6H PRN PRN Reason: PAIN LEVEL 6-10 Last Admin: 12/05/19 06:42 Dose: 650 mg Documented by: Albuterol Sulfate (Ventolin Hfa Inhaler -) 2 puff IH Q4H PRN PRN Reason: SHORT OF BREATH/WHEEZING Budesonide/Formoterol Fumarate (Symbicort 160/4.5mcg -) 2 puff IH BID [facility] Last Admin: 12/05/19 09:52 Dose: 2 puff Documented by: Collagenase (Santyl -) 1 applic TP DAILY [facility]; Protocol Digoxin (Lanoxin -) 0.125 mg PO DAILY [facility] Last Admin: 12/05/19 09:48 Dose: 0.125 mg Documented by: Docusate Sodium (Colace -) 100 mg PO TID [facility] Last Admin: 12/05/19 06:18 Dose: Not Given Documented by: Furosemide (Lasix Injection -) 60 mg IVPB BID@0600,1400 [facility] Vancomycin HCl 1,000 mg/ (Dextrose) 250 mls @ 200 mls/hr IVPB Q24H [facility]; Protocol Ertapenem 1 gm/ Sodium (Chloride) 50 mls @ 100 mls/hr IVPB DAILY [facility] Insulin Aspart (Novolog Vial Sliding Scale -) 1 vial SQ ACHS [facility]; Protocol Last Admin: 12/05/19 06:19 Dose: 2 units Documented by: Insulin Detemir (Levemir Vial) 30 units SQ HS [facility] Last Admin: 12/04/19 23:23 Dose: 30 units Documented by: Insulin Detemir (Levemir Vial) 38 units SQ DAILY [facility] Metoprolol Succinate (Toprol Xl -) 25 mg PO BID [facility] Last Admin: 12/05/19 09:48 Dose: 25 mg Documented by: Montelukast Sodium (Singulair -) 10 mg PO HS [facility] Last Admin: 12/04/19 23:26 Dose: 10 mg Documented by: Nicotine (Nicoderm Patch -) 7 mg TD DAILY [facility] Last Admin: 12/05/19 09:51 Dose: 7 mg Documented by: Pantoprazole Sodium (Protonix -) 40 mg PO DAILY [facility] Last Admin: 12/05/19 09:47 Dose: 40 mg Documented by: Rivaroxaban (Xarelto) 20 mg PO DAILY [facility] Last Admin: 12/05/19 09:49 Dose: 20 mg Documented by: Sacubitril/Valsartan (Entresto 24 Mg-26 Mg Tablet) 1 tab PO BID [facility] Last Admin: 12/05/19 09:47 Dose: 1 tab Documented by: Spironolactone (Aldactone -) 25 mg PO BID [facility] Last Admin: 12/05/19 09:46 Dose: 25 mg Documented by: ASSESSMENT AND PLAN: 54F w/ pmh of HFrEF, AFib (on Xarelto), IDDM, hypertension, hyperlipidemia, asthma, chronic LLE wound and cocaine use disorder, NSTEMI presented to [facility] for concern of LLE wound with warmth, tightness, firmness. # Acute on chronic HFrEF -increase leg swelling, dyspnea, non compliant with medications -last ECHO in September 2019 EF 30-35% -IV lasix, strict I/O, daily wt -EKG:Afib on AC -cardiology consult -discussed medication and diet compliance -resume her home meds #chronic Lt leg ulcer -clean base, no discharge, no evidence of warmth, tenderness on exam -unlikely infected -wound care consult -just completed course of Abx after recent discharge -no Abx for now COPD IDDM morbid obesity Asthma PAD CAD substance abuse HTN HLD DVT prophylaxis
[2019-12-05 11:20] LABS: BASO % 2.3 % (0-2.0); EOS % 3.5 % (0-4.5); HEMATOCRIT 34.1 % (32.4-45.2); HEMOGLOBIN 10.5 GM/dL (10.7-15.3); LYMPH % 27.5 % (8-40); MCH 25.1 pg (25.7-33.7); MCHC 30.9 g/dl (32.0-36.0); MEAN CELL VOLUME 81.5 fl (80-96); MEAN PLT VOLUME 8.9 fl (7.5-11.1); MONO % 7.4 % (3.8-10.2); NEUT % 59.3 % (42.8-82.8); PLATELET COUNT 300 K/MM3 (134-434); RBC 4.19 M/mm3 (3.60-5.2); RDW 19.5 % (11.6-15.6); WHITE BLOOD COUNT 5.2 K/mm3 (4.0-10.0)
[2019-12-05 11:28] LABS: INR 1.74 (0.83-1.09); PROTHROMBIN TIME (PATIENT) 20.7 SEC (9.7-13.0)
[2019-12-05] MEDS: INSULIN (LEVEMIR) 100 UNITS/ML UNITS SQ SCH ×2 (11:31→21:51)
[2019-12-05 11:59] LABS: BILIRUBIN,TOTAL 1.3 mg/dL (0.2-1); BLOOD UREA NITROGEN 19.9 mg/dL (7-18); CREATININE 1.1 mg/dL (0.55-1.3); MAGNESIUM 1.6 mg/dL (1.8-2.4); PHOSPHOROUS 3.5 mg/dL (2.5-4.9); POTASSIUM 4.3 mmol/L (3.5-5.1); TOT PROT 6.5 g/dl (6.4-8.2)
--- NOTE | 2019-12-05 12:46 | CON.CARD ---
Cardiology Consult (text) - Consultation Consultation Note: Consultation Note: Chief Complaint: sob, edema History of Present Illness: 54F h/o HTN, HLD, chronic systolic HF, DM p/w shortness of breath, edema, lower ext pain. Several recent admits for chf, most recently early November. Now with three days of dyspnea, unable to sleep at night because she is short of breath. utox +cocaine. taking lasix as prescribed. also complaining of worsening pain and redness in lower ext, has chronic lle would. endorses weight gain, not sure how much - Past Medical History Cardio/Vascular: Yes: HTN Pulmonary: Yes: Asthma, COPD Endocrine: Yes: Diabetes Mellitus - Alcohol/Substance Use Hx Alcohol Use: No - Smoking History Smoking history: Current every day smoker Have you smoked in the past 12 months: Yes Aproximately how many cigarettes per day: 10 Home Medications - Allergies Allergies/Adverse Reactions: Allergies Allergy/AdvReac Type Severity Reaction Status Date / Time amoxicillin trihydrate Allergy Intermediate Swelling Verified 12/04/19 11:47 [From Augmentin] potassium clavulanate Allergy Intermediate Swelling Verified 12/04/19 11:47 [From Augmentin] amoxicillin Allergy Verified 12/04/19 11:47 Family Disease History - Family Disease History Family Disease History: Diabetes: Sister (seven - ), Heart Disease: Sister, CA: Mother (), Respiratory: Sister, Other: Father (, etoh), Mother, Brother (four - one mental health problem), Sister, Son (five - asthma ), Daughter (one - healthy) Review of Systems - Review of Systems per hpi; all others nl Vital Signs Period Temp Pulse Resp BP Sys/Khanna Pulse Ox Last 24 Hr 97.5 F-101.2 F 78-93 18-20 120-162/68-84 90-100 Constitutional: Yes: No Distress, Calm Eyes: Yes: Conjunctiva Clear, EOM Intact HENT: Yes: Atraumatic, Normocephalic Neck: Yes: Supple, Trachea Midline Respiratory: + sommer rales at bases Gastrointestinal: Yes: Normal Bowel Sounds, Soft Cardiovascular: Yes: Tachycardia JVD: No Carotid Bruit: No PMI: Non-Displaced Heart Sounds: Yes: S1, S2 Musculoskeletal: No: Back Pain Extremities: Yes: Cool Edema: Yes Edema: LLE: 1+, RLE: 1+ Integumentary: No: Jaundice Neurological: Yes: Alert, Oriented Psychiatric: No: Agitated EKG: afib, rate 110 bpm, no ischemic changes cxr: no acute process echo 10/2018 dilated LV, severe global hypokinesis, EF 15-20%, RV mildly reduced function, LA mod dilated, mild MAC, mild MR, mild TR, RVSP >40-50 mmHg echo 09/2019: lve, lvef 30-35, mild dec rv fcn, mild mr a/p: 54F h/o HTN, HLD, afib, chronic systolic HF, DM p/w sob acute on chronic systolic chf, NICM: -Likely NICM due to chronic HTN, cocaine use -pt had not followed up for ICD as planned in past and her cocaine use is a relative contraindication -recent echo 09/2019 with stable chronic findings, lvef slightly improved -complains of weight gain, dyspnea, orthopnea worsening in last few days, likely HF exac, cocaine + -cont iv lasix. daily wts and chem7. -cont Entresto, metoprolol, aldactone AFib: - cont metoprolol, digoxin - cont xarelto CAD, NSTEMI: -pt presented with NSTEMI in 2018 but subsequent cath showed single vessel disease, medically managed with cardiomyopathy out of proportion to degree of CAD -no signs ACS here -cont bb, ac. statin stopped previously due to elevated lfts. lower ext pain -abx per primary - vascular consulted DM - manage per primary
[2019-12-05] MEDS: FUROSEMIDE 40 MG/4 ML INJECTABLE VIAL IVPB SCH (14:15)
[2019-12-05] MEDS: ERTAPENEM SODIUM 1 GM in SODIUM CHLORIDE 50 ML IVPB SCH (17:28)
[2019-12-05] MEDS ORDERED: ACETAMINOPHEN 1000 MG/100 ML VIAL (NON FORMULARY) IVPB ONE ×2 (19:42→19:51)
[2019-12-05] MEDS: COLLAGENASE CLOSTRIDIUM HIST. 30 GRAMS TUBE TP SCH (19:54)
[2019-12-05] MEDS: MONTELUKAST NA 10 MG TABLET PO SCH (21:45)
[2019-12-06] MEDS: DOCUSATE SODIUM 100 MG CAPSULE (FP) PO SCH ×2 (06:24→06:36)
[2019-12-06] MEDS: FUROSEMIDE 40 MG/4 ML INJECTABLE VIAL IVPB SCH (06:24)
[2019-12-06] MEDS: INSULIN SLIDING SCALE (NOVOLOG) 1 VIAL SQ SCH ×2 (06:37→10:50)
[2019-12-06] MEDS ORDERED: INSULIN (LEVEMIR) 100 UNITS/ML UNITS SQ ONE (07:01)
[2019-12-06] MEDS ORDERED: INSULIN (NOVOLOG) ASPART 100 UNITS/ML 10ML VIAL ONE ×2 (07:01→10:47)
[2019-12-06] MEDS ORDERED: PT OWN MED DRAWER 7, Y5N ONE ×3 (07:01→11:39)
[2019-12-06 08:41] LABS: HEMOGLOBIN 10.3 GM/dL (10.7-15.3); MCH 25.4 pg (25.7-33.7); MCHC 31.3 g/dl (32.0-36.0); MEAN PLT VOLUME 8.6 fl (7.5-11.1); PLATELET COUNT 329 K/MM3 (134-434); RBC 4.08 M/mm3 (3.60-5.2); RDW 19.7 % (11.6-15.6); WHITE BLOOD COUNT 6.1 K/mm3 (4.0-10.0)
[2019-12-06 09:03] LABS: ALBUMIN 3.2 g/dl (3.4-5.0); BILIRUBIN,TOTAL 0.9 mg/dL (0.2-1); BLOOD UREA NITROGEN 20.6 mg/dL (7-18); CALCIUM 9.5 mg/dL (8.5-10.1); CREATININE 1.1 mg/dL (0.55-1.3); MAGNESIUM 1.6 mg/dL (1.8-2.4); PHOSPHOROUS 4.1 mg/dL (2.5-4.9); POTASSIUM 4.4 mmol/L (3.5-5.1); TOT PROT 7.1 g/dl (6.4-8.2)
[2019-12-06] MEDS: SPIRONOLACTONE 25 MG TABLET PO SCH (09:06)
[2019-12-06] MEDS: SACUBITRIL/VALSARTAN 24 MG-26 MG TABLET PO SCH (09:06)
[2019-12-06] MEDS: RIVAROXABAN 20 MG TABLET PO SCH (09:06)
[2019-12-06] MEDS: PANTOPRAZOLE 40 MG TABLET PO SCH (09:06)
[2019-12-06] MEDS: DIGOXIN 0.125 MG TABLET (FP) PO SCH (09:06)
[2019-12-06] MEDS: ERTAPENEM SODIUM 1 GM in SODIUM CHLORIDE 50 ML IVPB SCH (09:07)
[2019-12-06] MEDS: NICOTINE 7 MG/24 HOURS TOPICAL PATCH TD SCH (09:07)
[2019-12-06] MEDS: BUDESONIDE/FORMETEROL FUMARATE 160/4.5 mcg INHALER IH SCH (09:08)
[2019-12-06] MEDS: metoPROLOL SUCCINATE 25 MG TAB.SR.24H (FP) PO SCH (09:10)
[2019-12-06 09:11] VITALS: PULSE 98
--- NOTE | 2019-12-06 09:32 | PN ---
Progress Note, Physician History of Present Illness: stable leg looks better - Current Medication List Current Medications: Active Medications Acetaminophen (Tylenol -) 650 mg PO Q6H PRN PRN Reason: PAIN LEVEL 6-10 Last Admin: 12/05/19 06:42 Dose: 650 mg Documented by: Albuterol Sulfate (Ventolin Hfa Inhaler -) 2 puff IH Q4H PRN PRN Reason: SHORT OF BREATH/WHEEZING Budesonide/Formoterol Fumarate (Symbicort 160/4.5mcg -) 2 puff IH BID [facility] Last Admin: 12/06/19 09:08 Dose: 2 puff Documented by: Collagenase (Santyl -) 1 applic TP DAILY [facility]; Protocol Last Admin: 12/05/19 19:54 Dose: Not Given Documented by: Digoxin (Lanoxin -) 0.125 mg PO DAILY [facility] Last Admin: 12/06/19 09:06 Dose: 0.125 mg Documented by: Docusate Sodium (Colace -) 100 mg PO TID [facility] Last Admin: 12/06/19 06:36 Dose: Not Given Documented by: Furosemide (Lasix Injection -) 60 mg IVPB BID@0600,1400 [facility] Last Admin: 12/06/19 06:24 Dose: 60 mg Documented by: Ertapenem 1 gm/ Sodium (Chloride) 50 mls @ 100 mls/hr IVPB DAILY [facility] Last Admin: 12/06/19 09:07 Dose: 100 mls/hr Documented by: Vancomycin HCl (Vancomycin (Pre-Docked)) 1,000 mg in 250 mls @ 200 mls/hr IVPB Q24H [facility]; Protocol Last Admin: 12/05/19 12:09 Dose: 200 mls/hr Documented by: Insulin Aspart (Novolog Vial Sliding Scale -) 1 vial SQ ACHS [facility]; Protocol Last Admin: 12/06/19 06:37 Dose: Not Given Documented by: Insulin Detemir (Levemir Vial) 30 units SQ HS [facility] Last Admin: 12/05/19 21:51 Dose: 30 units Documented by: Insulin Detemir (Levemir Vial) 38 units SQ DAILY [facility] Last Admin: 12/05/19 11:31 Dose: 38 units Documented by: Metoprolol Succinate (Toprol Xl -) 25 mg PO BID [facility] Last Admin: 12/06/19 09:10 Dose: 25 mg Documented by: Montelukast Sodium (Singulair -) 10 mg PO HS [facility] Last Admin: 12/05/19 21:45 Dose: 10 mg Documented by: Nicotine (Nicoderm Patch -) 7 mg TD DAILY [facility] Last Admin: 12/06/19 09:07 Dose: Not Given Documented by: Pantoprazole Sodium (Protonix -) 40 mg PO DAILY [facility] Last Admin: 12/06/19 09:06 Dose: 40 mg Documented by: Rivaroxaban (Xarelto) 20 mg PO DAILY [facility] Last Admin: 12/06/19 09:06 Dose: 20 mg Documented by: Sacubitril/Valsartan (Entresto 24 Mg-26 Mg Tablet) 1 tab PO BID [facility] Last Admin: 12/06/19 09:06 Dose: 1 tab Documented by: Spironolactone (Aldactone -) 25 mg PO BID [facility] Last Admin: 12/06/19 09:06 Dose: 25 mg Documented by: - Objective Vital Signs: Vital Signs Temperature 97.5 F L 12/06/19 06:00 Pulse Rate 98 H 12/06/19 09:06 Respiratory Rate 20 12/06/19 06:00 Blood Pressure 133/85 12/06/19 06:00 O2 Sat by Pulse Oximetry (%) 100 12/06/19 06:00 Constitutional: Yes: No Distress, Calm Cardiovascular: Yes: S1, S2 Respiratory: Yes: Regular, CTA Bilaterally Gastrointestinal: Yes: Normal Bowel Sounds, Soft Musculoskeletal: Yes: WNL Extremities: Yes: Other Edema: LLE: 1+ Wound/Incision: Yes: Dressing Dry and Intact Neurological: Yes: Alert, Oriented Psychiatric: Yes: Alert, Oriented Labs: CBC, BMP 12/06/19 07:30 12/06/19 07:30 INR, PTT INR 1.74 (0.83-1.09) H 12/05/19 09:40 Assessment/Plan 54F w/ pmh of HFrEF, AFib (on Xarelto), IDDM, hypertension, hyperlipidemia, a sthma, chronic LLE wound and cocaine use disorder, NSTEMI(2019?) presented to [facility] for concern of LLE wound with warmth, tightness, firmness, itchiness. Originally on 11/30/19, pt was seen in the Wound Care clinic and Dr Eduardo recommended admission for IV abx. Pt physical exam notable for b/l edematous legs, no warmth/redness, open LLE wound. Labwork notable for lactic acid 2.6, elevated glucose 427. #LLE cellulitis #chronic Afib #substance usage disorder(cocaine, tobacco) #chronic HFrEF chronic anemia hyponatremia uncontrolled DM plan patient can be switched to doxy 100 mg po bid for 5 more days and levaquin 500 mg po daily for 5 more days wound care rest as per the team
[2019-12-06] MEDS: INSULIN (LEVEMIR) 100 UNITS/ML UNITS SQ SCH (10:50)
[2019-12-06] MEDS ORDERED: traMADol HCL 50 MG TABLET PO PRN (11:04)
--- NOTE | 2019-12-06 11:26 | PN ---
Physical Exam: SUBJECTIVE: Patient seen and examined OBJECTIVE: Vital Signs Period Temp Pulse Resp BP Sys/Khanna Pulse Ox Last 24 Hr 97.5 F-98.7 F 73-98 20-20 120-143/76-90 100-100 GENERAL: The patient is awake, alert, and fully oriented, in no acute distress. HEAD: Normal with no signs of trauma. EYES: PERRL, extraocular movements intact, sclera anicteric, conjunctiva clear. No ptosis. ENT: Ears normal, nares patent, oropharynx clear without exudates, moist mucous membranes. NECK: Trachea midline, full range of motion, supple. LUNGS: Breath sounds equal, clear to auscultation bilaterally, no wheezes, no crackles, no accessory muscle use. HEART: Regular rate and rhythm, S1, S2 without murmur, rub or gallop. ABDOMEN: Soft, nontender, nondistended, normoactive bowel sounds, no guarding, no rebound, no hepatosplenomegaly, no masses. EXTREMITIES: 2+ pulses, warm, well-perfused, no edema. NEUROLOGICAL: Cranial nerves II through XII grossly intact. Normal speech, gait not observed. PSYCH: Normal mood, normal affect. SKIN: Warm, dry, normal turgor, no rashes or lesions noted Laboratory Results - last 24 hr 12/05/19 12/05/19 12/05/19 09:40 09:40 09:40 WBC RBC Hgb Hct MCV MCH MCHC RDW Plt Count MPV ESR PT with INR 20.70 H INR 1.74 H Sodium 136 Potassium 4.3 Chloride 104 Carbon Dioxide 20 L Anion Gap 11 BUN 19.9 H Creatinine 1.1 Est GFR (CKD-EPI)AfAm 65.92 Est GFR (CKD-EPI)NonAf 56.87 POC Glucometer Random Glucose 254 H Calcium 9.0 Phosphorus 3.5 Magnesium 1.6 L Iron 31 L TIBC 400 403 Iron Saturation 7 L Unsaturated IBC 372 H Transferrin Ferritin 39.5 Total Bilirubin 1.3 H AST 30 ALT 34 Alkaline Phosphatase 169 H C-Reactive Protein 1.3 H Total Protein 6.5 Albumin 3.0 L Vitamin B12 1384 H Serum Folate 11 TSH 2.14 12/05/19 12/05/19 12/05/19 09:40 09:40 17:31 WBC RBC Hgb Hct MCV MCH MCHC RDW Plt Count MPV ESR 56 H PT with INR INR Sodium Potassium Chloride Carbon Dioxide Anion Gap BUN Creatinine Est GFR (CKD-EPI)AfAm Est GFR (CKD-EPI)NonAf POC Glucometer 356 Random Glucose Calcium Phosphorus Magnesium Iron TIBC Iron Saturation Unsaturated IBC Transferrin 349 Ferritin Total Bilirubin AST ALT Alkaline Phosphatase C-Reactive Protein Total Protein Albumin Vitamin B12 Serum Folate TSH 12/05/19 12/06/19 12/06/19 21:51 06:36 07:30 WBC 6.1 RBC 4.08 Hgb 10.3 L Hct 33.0 MCV 81.0 MCH 25.4 L MCHC 31.3 L RDW 19.7 H Plt Count 329 MPV 8.6 ESR PT with INR INR Sodium Potassium Chloride Carbon Dioxide Anion Gap BUN Creatinine Est GFR (CKD-EPI)AfAm Est GFR (CKD-EPI)NonAf POC Glucometer 164 136 Random Glucose Calcium Phosphorus Magnesium Iron TIBC Iron Saturation Unsaturated IBC Transferrin Ferritin Total Bilirubin AST ALT Alkaline Phosphatase C-Reactive Protein Total Protein Albumin Vitamin B12 Serum Folate TSH 12/06/19 12/06/19 07:30 10:45 WBC RBC Hgb Hct MCV MCH MCHC RDW Plt Count MPV ESR PT with INR INR Sodium 139 Potassium 4.4 Chloride 103 Carbon Dioxide 26 Anion Gap 9 BUN 20.6 H Creatinine 1.1 Est GFR (CKD-EPI)AfAm 65.92 Est GFR (CKD-EPI)NonAf 56.87 POC Glucometer 239 Random Glucose 119 H Calcium 9.5 Phosphorus 4.1 Magnesium 1.6 L Iron TIBC Iron Saturation Unsaturated IBC Transferrin Ferritin Total Bilirubin 0.9 AST 30 ALT 36 Alkaline Phosphatase 185 H C-Reactive Protein Total Protein 7.1 Albumin 3.2 L Vitamin B12 Serum Folate TSH Active Medications Generic Name Dose Route Start Last Admin Trade Name Freq PRN Reason Stop Dose Admin Acetaminophen 650 mg 12/04/19 19:14 12/05/19 06:42 Tylenol - PO 650 mg Q6H PRN Administration PAIN LEVEL 6-10 Albuterol Sulfate 2 puff 12/05/19 00:59 Ventolin Hfa Inhaler - IH Q4H PRN SHORT OF BREATH/WHEEZING Budesonide/Formoterol Fumarate 2 puff 12/04/19 22:00 12/06/19 09:08 Symbicort 160/4.5mcg - IH 2 puff BID SOREN Administration Collagenase 1 applic 12/05/19 10:00 08/19/20 19:54 Santyl - TP Not Given DAILY [facility] Protocol Digoxin 0.125 mg 12/05/19 10:00 12/06/19 09:06 Lanoxin - PO 0.125 mg DAILY SOREN Administration Docusate Sodium 100 mg 12/04/19 22:00 12/06/19 06:36 Colace - PO Not Given TID SOREN Furosemide 60 mg 12/05/19 14:00 12/06/19 06:24 Lasix Injection - IVPB 60 mg BID@0600,1400 SOREN Administration Ertapenem 1 gm/ Sodium 50 mls @ 100 mls/hr 12/05/19 18:00 12/06/19 09:07 Chloride IVPB 100 mls/hr DAILY SOREN Administration Insulin Aspart 1 vial 12/04/19 20:49 12/06/19 10:50 Novolog Vial Sliding Scale - SQ 4 units ACHS SOREN Administration Protocol Insulin Detemir 30 units 12/04/19 22:00 12/05/19 21:51 Levemir Vial SQ 30 units HS SOREN Administration Insulin Detemir 38 units 12/05/19 10:00 12/06/19 10:50 Levemir Vial SQ 38 units DAILY SOREN Administration Metoprolol Succinate 25 mg 12/04/19 22:00 12/06/19 09:10 Toprol Xl - PO 25 mg BID SOREN Administration Montelukast Sodium 10 mg 12/04/19 22:00 12/05/19 21:45 Singulair - PO 10 mg HS SOREN Administration Nicotine 7 mg 12/04/19 17:00 12/06/19 09:07 Nicoderm Patch - TD Not Given DAILY SOREN Pantoprazole Sodium 40 mg 12/05/19 10:00 12/06/19 09:06 Protonix - PO 40 mg DAILY SOREN Administration Rivaroxaban 20 mg 12/05/19 10:00 12/06/19 09:06 Xarelto PO 20 mg DAILY SOREN Administration Sacubitril/Valsartan 1 tab 12/04/19 22:00 12/06/19 09:06 Entresto 24 Mg-26 Mg Tablet PO 1 tab BID SOREN Administration Spironolactone 25 mg 12/04/19 22:00 12/06/19 09:06 Aldactone - PO 25 mg BID SOREN Administration Tramadol HCl 50 mg 12/06/19 11:04 Ultram - PO BID PRN PAIN LEVEL 6-10 ASSESSMENT/PLAN: Visit type - Emergency Visit Emergency Visit: Yes ED Registration Date: 12/04/19 Care time: The patient presented to the Emergency Department on the above date and was hospitalized for further evaluation of their emergent condition. - New Patient This patient is new to me today: No - Critical Care Critical Care patient: No - Discharge Referral Referred to [facility] Med P.C.: No
[2019-12-06] MEDS: COLLAGENASE CLOSTRIDIUM HIST. 30 GRAMS TUBE TP SCH ×2 (11:40→11:42)
[2019-12-06 11:58] VITALS: BP 146/91; TEMP 98.7
--- NOTE | 2019-12-06 12:22 | PN ---
Progress Note (short form) - Note Progress Note: s: sob better, no cp palps dizzy Ambulatory Orders Loratadine 10 mg PO DAILY PRN 06/30/19 Cholecalciferol (Vitamin D3) [Vitamin D3 -] 50,000 unit PO WEEKLY 09/16/19 Fluticasone Propion/Salmeterol [Wixela 500-50 Inhub] 1 inhaler IN BID 09/16/19 Insulin Glargine,Hum.rec.anlog [Basaglar Kwikpen U-100] 38 unit SQ DAILY 09/16/19 Collagenase Clostridium Hist. [Santyl -] 1 applic TP DAILY #1 tube 10/17/19 Docusate Sodium [Colace -] 100 mg PO TID #90 capsule 10/17/19 Montelukast Sodium [Singulair] 10 mg PO HS #30 tablet 10/17/19 Pantoprazole Sodium [Protonix -] 40 mg PO DAILY #30 tab 10/17/19 Liraglutide [Victoza -] 1.2 mg SQ DAILY 11/08/19 Acetaminophen [Tylenol .Regular Strength -] 650 mg PO Q6H PRN tablet 12/06/19 Albuterol Sulfate Inhaler - [Ventolin HFA Inhaler -] 2 puff IH Q4H PRN inhaler 12/06/19 Digoxin [Lanoxin -] 0.125 mg PO DAILY #30 tablet 12/06/19 Doxycycline Hyclate 100 mg PO BID #10 tablet MDD 200 mg 12/06/19 Furosemide [Lasix -] 60 mg PO BID@0600,1400 #14 tablet 12/06/19 Levofloxacin [Levaquin] 500 mg PO DAILY #5 tablet MDD 500mg 12/06/19 Metoprolol Succinate [Toprol Xl] 25 mg PO BID #14 tab.sr 12/06/19 Rivaroxaban [Xarelto -] 20 mg PO DAILY #30 tablet 12/06/19 Sacubitril/Valsartan [Entresto 24 mg-26 mg Tablet] 1 tab PO BID #60 tablet 12/06/19 Spironolactone [Aldactone -] 25 mg PO BID #60 tablet 12/06/19 Vital Signs Temp 98.7 F 12/06/19 10:00 Pulse 98 H 12/06/19 10:00 Resp 20 08/20/20 10:00 BP 146/91 12/06/19 10:00 Pulse Ox 98 12/06/19 10:00 Intake & Output 12/05/19 12/06/19 12/06/19 23:59 11:59 23:59 Intake Total 1050 Output Total 1 Balance 1049 Weight 248 lb 2 oz Intake: IV 100 Saline lock 100 IVPB 350 Oral 600 Output: Urine 1 Void 1 Other: Voiding Method Toilet Toilet Bowel Movement Yes Yes # Bowel Movements 1 1 Weight Measurement Method Built in [facility] Constitutional: Yes: No Distress, Calm Eyes: Yes: Conjunctiva Clear Neck: Yes: Supple, Trachea Midline Respiratory: + sommer rales at bases Gastrointestinal: Yes: Normal Bowel Sounds, Soft Cardiovascular: Yes: Tachycardia JVD: No Carotid Bruit: No PMI: Non-Displaced Heart Sounds: Yes: S1, S2 Musculoskeletal: No: Back Pain Extremities: Yes: Cool Edema:trace bl Integumentary: No: Jaundice Neurological: Yes: Alert, Oriented Psychiatric: No: Agitated CBC, BMP 12/06/19 07:30 12/06/19 07:30 EKG: afib, rate 110 bpm, no ischemic changes cxr: no acute process echo 10/2018 dilated LV, severe global hypokinesis, EF 15-20%, RV mildly reduced function, LA mod dilated, mild MAC, mild MR, mild TR, RVSP >40-50 mmHg echo 09/2019: lve, lvef 30-35, mild dec rv fcn, mild mr a/p: 54F h/o HTN, HLD, afib, chronic systolic HF, DM p/w sob acute on chronic systolic chf, NICM: -Likely NICM due to chronic HTN, cocaine use -pt had not followed up for ICD as planned in past and her cocaine use is a rela tive contraindication -recent echo 09/2019 with stable chronic findings, lvef slightly improved -complains of weight gain, dyspnea, orthopnea worsening in last few days, likely HF exac, cocaine + -after iv lasix feeling better. she was on lasix 60 bid at home but says that she was not urinating much after taking, would change to torsemide 40 bid on dc. -cont Entresto, metoprolol, aldactone AFib: - cont metoprolol, digoxin - cont xarelto CAD, NSTEMI: -pt presented with NSTEMI in 2018 but subsequent cath showed single vessel disease, medically managed with cardiomyopathy out of proportion to degree of CAD -no signs ACS here -cont bb, ac. statin stopped previously due to elevated lfts. lower ext pain -abx per primary - vascular consulted DM - manage per primary
--- NOTE | 2019-12-06 13:17 | PN ---
Physical Exam: SUBJECTIVE: Patient seen and examined OBJECTIVE: Vital Signs Period Temp Pulse Resp BP Sys/Khanna Pulse Ox Last 24 Hr 97.5 F-98.7 F 76-98 20-20 126-146/76-91 98-100 GENERAL: Awake, alert, and fully oriented, in no acute distress. LUNGS: Breath sounds equal, clear to auscultation bilaterally. No wheezes, has crackles. No accessory muscle use. HEART: irregular rate and rhythm, normal S1 and S2 ABDOMEN: obese, Soft, nontender, not distended MUSCULOSKELETAL: Normal range of motion at all joints. No bony deformities or tenderness. No CVA tenderness. UPPER EXTREMITIES: 2+ pulses, warm, well-perfused. No cyanosis. No clubbing. No peripheral edema. LOWER EXTREMITIES: unable to feel pulses, + edema, warm. No calf tenderness. has quarter size stage 3 ulcer, no surrounding erythema, no discharge, clean base and borders (recently debrided) Laboratory Results - last 24 hr 12/05/19 12/05/19 12/05/19 09:40 17:31 21:51 WBC RBC Hgb Hct MCV MCH MCHC RDW Plt Count MPV Sodium Potassium Chloride Carbon Dioxide Anion Gap BUN Creatinine Est GFR (CKD-EPI)AfAm Est GFR (CKD-EPI)NonAf POC Glucometer 356 164 Random Glucose Calcium Phosphorus Magnesium Transferrin 349 Total Bilirubin AST ALT Alkaline Phosphatase Total Protein Albumin 12/06/19 12/06/19 12/06/19 06:36 07:30 07:30 WBC 6.1 RBC 4.08 Hgb 10.3 L Hct 33.0 MCV 81.0 MCH 25.4 L MCHC 31.3 L RDW 19.7 H Plt Count 329 MPV 8.6 Sodium 139 Potassium 4.4 Chloride 103 Carbon Dioxide 26 Anion Gap 9 BUN 20.6 H Creatinine 1.1 Est GFR (CKD-EPI)AfAm 65.92 Est GFR (CKD-EPI)NonAf 56.87 POC Glucometer 136 Random Glucose 119 H Calcium 9.5 Phosphorus 4.1 Magnesium 1.6 L Transferrin Total Bilirubin 0.9 AST 30 ALT 36 Alkaline Phosphatase 185 H Total Protein 7.1 Albumin 3.2 L 12/06/19 10:45 WBC RBC Hgb Hct MCV MCH MCHC RDW Plt Count MPV Sodium Potassium Chloride Carbon Dioxide Anion Gap BUN Creatinine Est GFR (CKD-EPI)AfAm Est GFR (CKD-EPI)NonAf POC Glucometer 239 Random Glucose Calcium Phosphorus Magnesium Transferrin Total Bilirubin AST ALT Alkaline Phosphatase Total Protein Albumin ASSESSMENT/PLAN: 54F w/ pmh of HFrEF, AFib (on Xarelto), IDDM, hypertension, hyperlipidemia, asthma, chronic LLE wound and cocaine use disorder, NSTEMI presented to [facility] for concern of LLE wound with warmth, tightness, firmness. # Acute on chronic HFrEF -non compliant with medications -last ECHO in September 2019 EF 30-35% -needed ICD but cocaine use was a relative contraindication -IV lasix, strict I/O, daily wt -EKG:Afib on AC -cardiology consult -discussed medication and diet compliance -resume her home meds chronic Lt leg ulcer COPD IDDM morbid obesity Asthma PAD CAD substance abuse HTN HLD DVT prophylaxis Pt got dressed up and wanted to leave around noon time, discussed the risks of her behavior and the need to stay to continue management of acute exacerbation of HF, pt verbalized understanding of her decision. Pt elected to leave and signed against medical advice. Visit type - Emergency Visit Emergency Visit: Yes ED Registration Date: 12/04/19 Care time: The patient presented to the Emergency Department on the above date and was hospitalized for further evaluation of their emergent condition. - New Patient This patient is new to me today: No - Critical Care Critical Care patient: No - Discharge Referral Referred to [facility] Med P.C.: No
== END 2019-12-06 11:49 | disposition left against medical advice (07) | DRG 383 ==
LOC: JER 11:26 → JERBED 15:36 → J8W 22:33
PROVIDERS: ADMIT Internal Medicine; ATTEND Student in an Organized Health Care Education/Training Program
DX: L03.116 Cellulitis of left lower limb (principal); E11.622 Type 2 diabetes mellitus with other skin ulcer; I48.20 Chronic atrial fibrillation, unspecified; I11.0 Hypertensive heart disease with heart failure; I50.23 Acute on chronic systolic (congestive) heart failure; E66.01 Morbid (severe) obesity due to excess calories; Z68.37 Body mass index [BMI] 37.0-37.9, adult; F14.10 Cocaine abuse, uncomplicated; I25.10 Atherosclerotic heart disease of native coronary artery without angina pectoris; J44.9 Chronic obstructive pulmonary disease, unspecified; E87.1 Hypo-osmolality and hyponatremia; F17.210 Nicotine dependence, cigarettes, uncomplicated; J45.909 Unspecified asthma, uncomplicated; E11.51 Type 2 diabetes mellitus with diabetic peripheral angiopathy without gangrene; E11.65 Type 2 diabetes mellitus with hyperglycemia; D63.8 Anemia in other chronic diseases classified elsewhere; L97.929 Non-pressure chronic ulcer of unspecified part of left lower leg with unspecified severity; I27.20 Pulmonary hypertension, unspecified; G47.30 Sleep apnea, unspecified; M54.5 Low back pain; I42.8 Other cardiomyopathies; I25.2 Old myocardial infarction; Z91.14 Patient's other noncompliance with medication regimen; Z79.4 Long term (current) use of insulin
CPT/HCPCS: 36415; 71045-TC-FY; 73590-TC-LT-FY; 80053; 82607; 82728; 82746; 82962; 83540; 83550; 83605; 83735; 83880; 84100; 84443; 84466; 85025; 85027; 85610; 85651; 85730; 86140; 87040; 93005; 93010; 97116-GP; 97161-GP; 99285-25; G0463-25; J0131; U0003

== ENCOUNTER 2020-01-07 20:59 | Inpatient (IN) | payer OTHER ==
--- NOTE | 2020-01-07 21:14 | PDOC ---
Rapid Medical Evaluation Time Seen by Provider: 01/07/20 21:08 Medical Evaluation: Allergies Allergy/AdvReac Type Severity Reaction Status Date / Time amoxicillin trihydrate Allergy Intermediate Swelling Verified 12/04/19 11:47 [From Augmentin] potassium clavulanate Allergy Intermediate Swelling Verified 12/04/19 11:47 [From Augmentin] amoxicillin Allergy Verified 12/04/19 11:47 01/07/20 21:08 Pt presents to the ER for shortness of breath and rectal bleeding for the last three days. Colonoscopy at age 50 was normal. Exam: speaking in full sentences. defer exam to provider Orders: labs, EKG Pt to proceed to the ER for further evaluation
--- OUTSIDE RECORDS SUMMARY | 2020-01-07 21:53 | XMS ---
:1965 Author Organization [facility] Care Team Providers Name Role Phone MELISSA CORBIN Unavailable Unavailable RIKI Trammell Unavailable Unavailable ED STAFF PHYSICIAN Unavailable Unavailable [facility] Unavailable Unavailable Re-disclosure Warning The records that you are about to access may contain information from federally- assisted alcohol or drug abuse programs. If such information is present, then the following federally mandated warning applies: This information has been disclosed to you from records protected by federal confidentiality rules (42 CFR part 2). The federal rules prohibit you from making any further disclosure of this information unless further disclosure is expressly permitted by the written consent of the person to whom it pertains or as otherwise permitted by 42 CFR part 2. A general authorization for the release of medical or other information is NOT sufficient for this purpose. The Federal rules restrict any use of the information to criminally investigate or prosecute any alcohol or drug abuse patient.The records that you are about to access may contain highly sensitive health information, the redisclosure of which is protected by Article 27-F of the [facility] Public Health law. If you continue you may haveaccess to information: Regarding HIV / AIDS; Provided by facilities licensed or operated by the [facility] Office of Mental Health; or Provided by the [facility] Office for People With Developmental Disabilities. If such information is present, then the following [facility] mandated warning applies: This information has been disclosed to you from confidential records which are protected by state law. State law prohibits you from making any further disclosure of this information without the specific written consent of the person to whom it pertains, or as otherwise permitted by law. Any unauthorized further disclosure in violation of state law may result in a fine or chcf sentence or both. A general authorization for the release of medical or other information is NOT sufficient authorization for further disclosure. Allergies and Adverse Reactions Type Description Substance Reaction Status Data Source(s ) Drug allergy Augmentin amoxicillin / throat closing, Active eCW3 ([facility] clavulanate [facility]) No Information No Information No Information eC W2 ([facility]) No Information No Information No Information eC W2 ([facility]) No Information No Information No Information eC W2 ([facility]) No Information No Information No Information eC W2 ([facility]) No Information No Information No Information eC W2 ([facility]) No Information No Information No Information eC W2 ([facility]) No Information No Information No Information eC W2 ([facility]) No Information No Information No Information eC W2 ([facility]) Drug allergy Augmentin Amoxicillin / throat closing, Active eCW3 ([facility] Clav[facility]) Encounters Encounter Providers Location Date Indications Data Source(s ) Emergency Attender: RIKI Mccloud 12/12/2019 Holly Farfan: STAFF ED 04:44:00 PM EDT [facility] STAFF - 12/12/2019 PHYSICIANAdmitter: 10:17:00 PM EDT RIKI Trammell Patient discharged. [facility] 10/24/2019 01:22:40 PM [facility] ([facility]T [facility]) Patient admitted. Outpatient Att[facility]: [facility] 10/24/2019 01:22:21 PM [facility] ([facility]T [facility]) Patient admitted. Outpatient Att[facility]: [facility] 10/24/2019 01:15:44 PM [facility] ([facility]T [facility]) Patient admitted. Outpatient Att[facility]: [facility] 07/06/2019 05:28:15 AM [facility] ([facility]T [facility]) Patient admitted. Outpatient Attender: [email or web address] 03/03/2019 01:51:55 PM [facility] ([facility] EST [facility]) Patient admitted. (NBillable) [place] 02/07/2019 eCW3 ([facility] 12:00:[address] [facility] A28 - 02/07/2019 Care) 12:00:00 AM EDT Emergency Attender: [id number] 02/02/2019 Saint CORBIN 05:19:00 AM EDT [facility] Patient discharged. (NBillable) [facility] 02/01/2019 eCW3 ([facility] A28 12:00:00 AM EDT - [facility] 02/01/2019 Care) 12:00:00 AM EDT (NBillable) [facility] 01/18/2019 eCW3 ([facility] 12:00:00 AM EDT - [facility] 01/18/2019 Care) 12:00:00 AM EDT (NBillable) [facility] 01/15/2019 eCW3 ([facility] 12:00:00 AM EDT - [facility] 01/15/2019 Care) 12:00:00 AM EDT Outpatient [facility] 12/29/2018 eCW3 [facility] 12:00:[address] [facility] 12/29/2018 Care) 12:00:00 AM EDT (NBillable) [facility] 12/26/2018 eCW3 ([facility] A28 12:00:00 AM EDT - [facility] 12/26/2018 Care) 12:00:00 AM EDT Outpatient 12/22/2018 [facility]SI ([facility] 12:17:08 PM EDT [facility]) Patient admitted. (NBillable) [facility] 11/23/2018 eCW3 ([facility] A28 12:00:00 AM EDT - [facility] 11/23/2018 Care) 12:00:00 AM EDT (NBillable) [facility] 11/10/2018 eCW3 ([facility] A28 12:00:00 AM EDT - [facility] 11/10/2018 Care) 12:00:00 AM EDT Outpatient [facility] 11/06/2018 eCW3 ([facility] 12:00:00 AM [facility] 11/06/2018 Care) 12:00:00 AM EDT (NBillable) [facility] 11/06/2018 eCW3 ([facility] A28 12:00:00 AM EDT - [facility] 11/06/2018 Care) 12:00:00 AM EDT Outpatient [facility] 11/02/2018 eCW3 ([facility] 12:00:00 AM EDT - [place] [facility] 11/02/2018 Care) 12:00:00 AM EDT (NBillable) [facility] 10/26/2018 eCW3 ([facility] A28 12:00:00 AM EDT - [facility] 10/26/2018 Care) 12:00:00 AM EDT (NBillable) [facility] 10/17/2018 eCW3 ([facility] A28 12:00:00 AM EDT - [facility] 10/17/2018 Care) 12:00:00 AM EDT (NBillable) [facility] 10/13/2018 eCW3 ([facility] A28 12:00:00 AM EDT - [place] [facility] 10/13/2018 Care) 12:00:00 AM EDT (NBillable) [facility] 10/10/2018 eCW3 ([facility] A28 12:00:00 AM EDT - [place] [facility] 10/10/2018 Care) 12:00:00 AM EDT Outpatient [facility] 10/06/2018 eCW3 ([facility] 12:00:00 AM EDT - [place] [facility] 10/06/2018 Care) 12:00:00 AM EDT (NBillable) [facility] 10/06/2018 eCW3 ([facility] A[facility] 12:00:00 AM EDT - [place] [facility] 10/06/2018 Care) 12:00:00 AM EDT (NBillable) [facility] 10/05/2018 eCW3 ([facility] A[facility] 12:00:00 AM EDT - [place] [facility] 10/05/2018 Care) 12:00:00 AM EDT Outpatient [facility] 09/25/2018 eCW3 ([facility] 12:00:00 AM EDT - [place] [facility] 09/25/2018 Care) 12:00:00 AM EDT (NBillable) [facility] 09/25/2018 eCW3 ([facility] A28 12:00:00 AM EDT - [facility] 09/25/2018 Care) 12:00:00 AM EDT Outpatient [facility] 09/21/2018 eCW3 ([facility] 12:00:00 AM EDT - [place] [facility] 09/21/2018 Care) 12:00:00 AM EDT (NBillable) [facility] 09/21/2018 eCW3 ([facility] A28 12:00:00 AM EDT - [facility] 09/21/2018 Care) 12:00:00 AM EDT (NBillable) [facility] 09/18/2018 eCW3 ([facility] A28 12:00:00 AM EDT - [place] [facility] 09/18/2018 Care) 12:00:00 AM EDT (NBillable) [facility] 09/04/2018 eCW3 ([facility] A[facility] 12:00:00 AM EDT - [place] [facility] 09/04/2018 Care) 12:00:00 AM EDT Outpatient [facility] 09/01/2018 eCW3 ([facility] 12:00:00 AM EDT - [place] [facility] 09/01/2018 Care) 12:00:00 AM EDT (NBillable) [facility] 08/21/2018 eCW3 ([facility] A28 12:00:00 AM EDT - [facility] 08/21/2018 Care) 12:00:00 AM EDT Outpatient [facility] 08/14/2018 eCW3 ([facility] 12:00:00 AM EDT - [facility] 08/14/2018 Care) 12:00:00 AM EDT (NBillable) [facility] 08/14/2018 eCW3 ([facility] 12:00:00 AM EDT - [facility] 08/14/2018 Care) 12:00:00 AM EDT (NBillable) [facility] 07/25/2018 eCW3 ([facility] 12:00:00 AM EDT - [facility] 07/25/2018 Care) 12:00:00 AM EDT (NBillable) [facility] 06/14/2018 eCW3 ([facility] 12:00:00 AM EST - [facility] 06/14/2018 Care) 12:00:00 AM EST (NBillable) [facility] 06/09/2018 eCW3 ([facility] 12:00:00 AM EST - [facility] 06/09/2018 Care) 12:00:00 AM EST (NBillable) [facility] 06/01/2018 eCW3 ([facility] 12:00:00 AM EST - [facility] 06/01/2018 Care) 12:00:00 AM EST [facility] 05/01/2018 eCW2 ([facility] 12:00:00 AM EST [facility]) [facility] 04/24/2018 eCW2 ([facility] 12:00:00 AM EST [place] [facility]) [facility] 04/21/2018 eCW2 ([facility] 12:00:00 AM EST [place] [facility]) [facility] 04/19/2018 eCW2 ([facility] 12[facility]00:00 AM EST [facility]) [facility] 04/13/2018 eCW2 ([facility] 12:00:00 AM EST [facility]) [facility] 03/27/2018 eCW[facility] ([facility] 12:00:00 AM EST [facility] 03/23/2018 eCW2 [facility] 12:00:00 AM EST [facility] 03/16/2018 eCW2 [facility] 12:00:00 AM EST [facility]) [facility] 03/04/2018 eCW2 ([facility] 12:00:00 AM EST [facility]) [facility] 03/04/2018 eCW2 ([facility] 12:00:00 AM EST [facility] 03/02/2018 eCW2 ([facility] 12:00:00 AM EST [facility] 03/01/2018 eCW2 ([facility] 12:00:00 AM EST [facility]) [facility] 03/01/2018 eCW2 ([facility] 12:00:00 AM EST [facility] 02/27/2018 eCW2 [facility] 12:00:00 AM EST [facility] 02/27/2018 eCW2 ([facility] 12:00:00 AM EST [facility]) [facility] 02/21/2018 eCW2 ([facility] 12:00:00 AM EST [facility]) [facility] 02/21/2018 eCW2 ([facility] 12:00:00 AM EST [facility]) [facility] 02/10/2018 eCW2 ([facility] 12:00:00 AM EDT [facility]) [place] [facility] 02/10/2018 eCW2 ([facility] 12:00:00 AM EDT [facility]) [facility] Phill Mcgheelyn 02/01/2018 eCW2 ([facility] 12:00:00 AM EDT [facility]) [facility] Phill Mcgheelyn 01/30/2018 eCW2 ([facility] 12:00:00 AM EDT [facility]) [facility] Phill Mcgheelyn 01/27/2018 eCW2 ([facility] 12:00:00 AM EDT [facility]) [facility] Phill Mcgheelyn 01/26/2018 eCW2 ([facility] 12:00:00 AM EDT [facility]) [facility] Phill Mcgheelyn 01/26/2018 eCW2 ([facility] 12:00:00 AM EDT [facility]) [facility] Phill Rogersn 01/25/2018 eCW2 ([facility] 12:00:00 AM EDT [facility]) [facility] Phill Mcgheelyn 01/24/2018 eCW2 ([facility] 12:00:00 AM EDT [facility] Phill Mcgheelyn 01/18/2018 eCW2 ([facility] 12:00:00 AM EDT [facility]) [facility] Phill Mcgheelyn 01/18/2018 eCW2 ([facility] 12:00:00 AM EDT [facility]) [facility] Phill Mcgheelyn 01/18/2018 eCW2 ([facility] 12:00:00 AM EDT [facility]) [facility] Phill Mcgheelyn 01/17/2018 eCW2 ([facility] 12:00:00 AM EDT [facility]) [facility] Phill Janeth 01/09/2018 eCW2 ([facility] 12:00:00 AM EDT [facility]) [facility] Phill Mcgheelyn 01/09/2018 eCW2 ([facility] 12:00:00 AM EDT [facility]) [facility] Phill Janeth 01/06/2018 eCW2 ([facility] 12:00:00 AM EDT [facility]) [facility] Janeth 01/06/2018 eCW2 ([facility] 12:00:00 AM EDT [facility]) [facility] Janeth 01/06/2018 eCW2 ([facility] 12:00:00 AM EDT [facility] 01/05/2018 eCW2 ([facility] 12:00:00 AM EDT [facility]) [facility] 01/05/2018 eCW2 ([facility] 12:00:00 AM EDT [facility] 01/05/2018 eCW2 ([facility] 12:00:00 AM EDT [facility] 01/05/2018 eCW2 ([facility] 12:00:00 AM EDT [facility] 01/04/2018 eCW2 ([facility] 12:00:00 AM EDT [facility] 01/04/2018 eCW2 ([facility] 12:00:00 AM EDT [facility] 12/30/2017 eCW2 ([facility] 12:00:00 AM EDT [facility]) [facility] 12/30/2017 eCW2 ([facility] 12:00:00 AM EDT [facility]) [facility] 12/28/2017 eCW2 ([facility] 12:00:00 AM EDT [facility]) [facility] 12/27/2017 eCW2 ([facility] 12:00:00 AM EDT [facility]) [facility] Phill Janeth 12/22/2017 eCW2 ([facility] 12:00:00 AM EDT [facility]) [facility] Phill Janeth 12/22/2017 eCW2 ([facility] 12:00:00 AM EDT [facility]) [facility] Phill Janeth 12/20/2017 eCW2 ([facility] 12:00:00 AM EDT [facility]) [facility] Phill Janeth 12/20/2017 eCW2 ([facility] 12:00:00 AM EDT [facility]) [facility] Phill Janeth 12/20/2017 eCW2 ([facility] 12:00:00 AM EDT [facility]) [facility] Phill Janeth 12/20/2017 eCW2 ([facility] 12:00:00 AM EDT [facility]) [facility] Phill Janeth 12/16/2017 eCW2 ([facility] 12:00:00 AM EDT [facility] Phill Janeth 12/13/2017 [facility]CW2 [facility] 12:00[facility]00 AM [facility] Phill Janeth 12/07/2017 eCW2 ([facility] 12:00:00 AM EDT [facility]) [facility] Phill Janeth 12/07/2017 eCW2 ([facility] 12:00:00 AM EDT [facility]) [facility] Phill Janeth 12/05/2017 eCW2 ([facility] 12:00:00 AM EDT [facility]) [facility] Janeth 11/30/2017 eCW2 ([facility] 12:00:00 AM EDT [facility] 12:00:00 AM EDT [facility]) [facility] Janeth 11/23/2017 eCW2 ([facility] 12:00:00 AM EDT [facility] 11/17/2017 eCW2 ([facility] 12:00:00 AM EDT [facility] 11/03/2017 eCW2 ([facility] 12:00:00 AM EDT [facility]) [facility] 10/26/2017 eCW2 ([facility] 12:00:00 AM EDT [facility]) [facility] 10/26/2017 eCW2 ([facility] 12:00:00 AM EDT [facility]) [facility] 10/17/2017 eCW2 ([facility] 12:00:00 AM EDT [facility] 10/15/2017 eCW2 ([facility] 12:00:00 AM EDT [facility] 10/06/2017 eCW2 [facility] 12:00:00 AM EDT [facility]) [facility] 10/03/2017 eCW2 ([facility] 12:00:00 AM EDT [facility]) [facility] 10/03/2017 eCW2 ([facility] 12:00:00 AM EDT [facility]) [facility] 09/21/2017 eCW2 ([facility] 12:00:00 AM EDT [facility]) [facility] 09/20/2017 eCW2 ([facility] 12:00:00 AM EDT [facility]) [facility] 09/20/2017 eCW2 ([facility] 12:00:00 AM EDT [facility]) [facility] Janeth 09/16/2017 eCW2 ([facility] 12:00:00 AM EDT [facility] 09/16/2017 eCW2 ([facility] 12:00:00 AM EDT [facility]) [facility] 09/13/2017 eCW2 ([facility] 12:00:00 AM EDT [facility]) [facility] 09/09/2017 eCW2 ([facility] 12:00:00 AM EDT [facility]) [facility] 09/09/2017 eCW2 ([facility] 12:00:00 AM EDT [facility]) [facility] 08/29/2017 eCW2 ([facility] 12:00:00 AM EDT [facility]) [facility] 08/22/2017 eCW2 ([facility] 12:00:00 AM EDT [facility] 08/19/2017 eCW2 [facility] 12:00:00 AM EDT [facility] 08/04/2017 eCW2 ([facility] 12:00:00 AM EDT [facility] 07/20/2017 eCW2 [facility] 12:00:00 AM EDT [facility] 12:00:00 AM EDT [facility] eCW[facility] 12:00:00 AM EDT [facility]) [facility] 07/19/2017 eCW2 ([facility] 12:00:00 AM EDT [facility]) [facility] Phill Janeth 07/18/2017 eCW2 ([facility] 12:00:00 AM EDT [facility]) [facility] Jan[facility] 07/15/2017 eCW2 ([facility] 12:00:00 AM EDT [facility]) [facility] 07/15/2017 eCW2 ([facility] 12:00:00 AM EDT [facility]) [facility] 07/13/2017 eCW2 ([facility] 12:00:00 AM EDT [facility] 07/13/2017 eCW2 [facility] 12:00:00 AM EDT [facility] 07/11/2017 eCW2 [facility] 12:00:00 AM EDT [facility]) [facility] Janeth 06/16/2017 eCW2 ([facility] 12:00:00 AM EST [facility] 06/14/2017 eCW2 ([facility] 12:00:00 AM EST [facility] 06/13/2017 eCW2 ([facility] 12:00:00 AM EST [facility] [facility] 12:00:00 AM EST [facility] 06/08[facility]2017 [facility] 12[facility]00:00 AM EST [facility]) [facility] 06/07/2017 eCW2 [facility] 12:00:00 AM EST [facility]) [facility] 05/24/2017 eCW2 [facility] 12[facility]00:00 AM EST [facility]) [facility] 05[facility]2017 [facility] 12:00:00 AM EST [facility]) [facility] Phill Janeth 05/16/2017 eCW2 ([facility] 12:00:00 AM EST [facility] Care) [facility] Phill Janeth 05/11/2017 eCW2 ([facility] 12:00:00 AM EST [facility] Care) [facility] Janeth 05/11/2017 eCW2 ([facility] 12:00:00 AM EST [facility]) [facility] 05/10/2017 eCW2 ([facility] 12:00:00 AM EST [facility]) [facility] 05/04/2017 eCW2 ([facility] 12:00:00 AM EST [facility] Care) [facility] Phill Janeth 04/27/2017 eCW2 ([facility] 12:00:00 AM EST [facility]) [facility] 04/25/2017 eCW2 ([facility] 12:00:00 AM EST [facility]) [facility] 04/08/2017 eCW[facility] ([facility] 12:00:00 AM EST [facility]) [facility] 04/08/2017 eCW2 ([facility] 12:00:00 AM EST [facility]) [facility] 04/08/2017 eCW2 ([facility] 12:00:00 AM EST [facility]) [facility] 04/06/2017 eCW2 ([facility] 12:00:00 AM EST [facility] Care) [facility] 04/05/2017 eCW2 ([facility] 12:00:00 AM EST [facility]) [facility] 03/21/2017 eCW2 ([facility] 12:00:00 AM EST [facility] Care) [facility] Phill Janeth 03/17/2017 eCW2 ([facility] 12:00:00 AM EST [facility]) [facility] Phill Janeth 03/16/2017 eCW2 ([facility] 12:00:00 AM EST [facility]) [facility] 03/15/2017 eCW2 ([facility] 12:00:00 AM EST [facility]) [facility] 03/14/2017 eCW2 ([facility] 12:00:00 AM EST [facility]) [facility] 03/14/2017 eCW2 ([facility] 12:00:00 AM EST [facility]) [facility] 03/03/2017 eCW2 ([facility] 12:00:00 AM EST [facility]) [facility] Jan[facility] 03/02/2017 eCW2 ([facility] 12:00:00 AM EST [facility]) [facility] 03/02/2017 eCW2 ([facility] 12:00:00 AM EST [facility]) [facility] 02/04/2017 eCW2 ([facility] 12:00:00 AM EDT [facility]) [facility] Jan[facility] 02/03/2017 eCW2 ([facility] 12:00:00 AM EDT [facility]) [facility] 01/28/2017 eCW2 ([facility] 12:00:00 AM EDT [facility] Care) [facility] 01/18/2017 eCW2 ([facility] 12:00:00 AM EDT [facility]) [facility] 01/17/2017 eCW2 ([facility] 12:00:00 AM EDT [facility]) [facility] 01/14/2017 eCW2 ([facility] 12:00:00 AM EDT [facility] Care) [facility] Phill Janeth 01/11/2017 eCW2 ([facility] 12:00:00 AM EDT [facility] Care) [facility] Phill Janeth 01/11/2017 eCW2 ([facility] 12:00:00 AM EDT [facility] Care) [facility] Phill Janeth 01/05/2017 eCW2 ([facility] 12:00:00 AM EDT [facility]) [facility] 12/31/2016 eCW2 ([facility] 12:00:00 AM EDT [facility]) [facility] 12/29/2016 eCW2 ([facility] 12:00:00 AM EDT [facility]) [facility] Phill Janeth 12/29/2016 eCW2 ([facility] 12:00:00 AM EDT [facility] Care) [facility] 12/22/2016 eCW2 ([facility] 12:00:00 AM EDT [facility]) [facility] 12/22/2016 eCW2 ([facility] 12:00:00 AM EDT [facility] Care) [facility] Phill Janeth 11/24/2016 eCW2 ([facility] 12:00:00 AM EDT [facility]) [facility] 11/22/2016 eCW2 ([facility] 12:00:00 AM EDT [facility] Care) [facility] 11/17/2016 eCW2 ([facility] 12:00:00 AM EDT [facility]) [facility] 11/16/2016 eCW2 ([facility] 12:00:00 AM EDT [facility]) [facility] 11/16/2016 eCW2 ([facility] 12:00:00 AM EDT [facility]) [facility] 11/09/2016 eCW2 ([facility] 12:00:00 AM EDT [facility] Care) [facility] 11/04/2016 eCW2 ([facility] 12:00:00 AM EDT [facility] Care) [facility] 10/14/2016 eCW2 ([facility] 12:00:00 AM EDT [facility]) [facility] 10/13/2016 eCW2 ([facility] 12:00:00 AM EDT [facility]) [facility] 10/12/2016 eCW2 ([facility] 12:00:00 AM EDT [facility] Care) [facility] 10/11/2016 eCW2 ([facility] 12:00:00 AM EDT [facility] Care) [facility] 09/23/2016 eCW2 ([facility] 12:00:00 AM EDT [facility]) [facility] 09/21/2016 eCW2 ([facility] 12:00:00 AM EDT [facility]) [facility] 09/17/2016 eCW2 ([facility] 12:00:00 AM EDT [facility]) [facility] 09/16/2016 eCW2 ([facility] 12:00:00 AM EDT [facility] Care) [facility] 09/16/2016 eCW2 ([facility] 12:00:00 AM EDT [facility]) [facility] 09/10/2016 eCW2 ([facility] 12:00:00 AM EDT [facility]) [facility] 08/27/2016 eCW2 ([facility] 12:00:00 AM EDT [facility]) [facility] 08/20/2016 eCW2 ([facility] 12:00:00 AM EDT [facility]) [facility] 08/17[facility]CW2 [facility] 12:00:00 AM EDT [facility] Care) [facility] 08/17/2016 eCW2 ([facility] 12:00:00 AM EDT [facility]) [facility] 08[facility] 12:00:00 AM EDT [facility]) [facility] 08/10/2016 eCW2 [facility] 12:00:00 AM EDT [facility]) [facility] 07/27/2016 eCW2 ([facility] 12:00:00 AM EDT [facility] Care) [facility] 07/19/2016 eCW2 [facility] 12:00:00 AM EDT [facility] Care) [facility] 07/13/2016 eCW2 [facility] 12:00:00 AM EDT [facility] Care) [facility] 07/08/2016 eCW2 ([facility] 12:00:00 AM EDT [facility] Care) [facility] 07/08/2016 eCW2 ([facility] 12:00:00 AM EDT [facility] Care) [facility] 07/07/2016 eCW2 [facility] 12:00:00 AM EDT [facility] Care) [facility] 07/07/2016 eCW2 [facility] 12:00:00 AM EDT [facility] Care) [facility] 06/23/2016 eCW2 ([facility] 12:00:00 AM EST [facility] Care) [facility] 06/21/2016 eCW2 ([facility] 12:00:00 AM EST [facility] Care) [facility] 06/21/2016 eCW2 ([facility] 12:00:00 AM EST [facility] Care) [facility] 05/25/2016 eCW2 ([facility] 12:00:00 AM EST [facility] Care) [facility] 05/20/2016 eCW2 ([facility] 12:00:00 AM EST [facility] Care) [facility] 05/19/2016 eCW2 ([facility] 12:00:00 AM EST [facility] Care) [facility] 05/17/2016 eCW2 ([facility] 12:00:00 AM EST [facility] Care) [facility] 05/04/2016 eCW2 ([facility] 12:00:00 AM EST [facility] Care) [facility] 04/28/2016 eCW2 ([facility] 12:00:00 AM EST [facility] Care) [facility] 04/28/2016 eCW2 ([facility] 12:00:00 AM EST [facility] Care) [facility] 04/27/2016 eCW2 ([facility] 12:00:00 AM EST [facility] Care) [facility] 04/16/2016 eCW2 ([facility] 12:00:00 AM EST [facility] Care) [facility] 04/15/2016 eCW2 ([facility] 12:00:00 AM EST [facility] Care) [facility] 04/08/2016 eCW2 ([facility] 12:00:00 AM EST [facility]) [facility] 03/17/2016 eCW2 ([facility] 12:00:00 AM EST [facility] Care) [facility] Phill Janeth 03/10/2016 eCW2 ([facility] 12:00:00 AM EST [facility] Care) [facility] Phill Janeth 03/10/2016 eCW2 ([facility] 12:00:00 AM EST [facility] Care) [facility] Phill Janeth 03/09/2016 eCW2 ([facility] 12:00:00 AM EST [facility]) [facility] 03/08/2016 eCW2 ([facility] 12:00:00 AM EST [facility]) [facility] 03/05/2016 eCW2 ([facility] 12:00:00 AM EST [facility]) [facility] 03/04/2016 eCW2 ([facility] 12:00:00 AM EST [facility]) [facility] 03/02/2016 eCW2 ([facility] 12:00:00 AM EST [facility] Care) [facility] 02/26/2016 eCW2 ([facility] 12:00:00 AM EST [facility] Care) [facility] Phill Janeth 02/19/2016 eCW2 ([facility] 12:00:00 AM EDT [facility] Care) [facility] 02/18/2016 eCW2 ([facility] 12:00:00 AM EDT [facility]) [facility] 02/16/2016 eCW2 ([facility] 12:00:00 AM EDT [facility] Care) [facility] 02/13/2016 eCW2 ([facility] 12:00:00 AM EDT [facility]) [facility] 02/13/2016 eCW2 ([facility] 12:00:00 AM EDT [facility] Care) [facility] Phill Janeth 02/13/2016 eCW2 ([facility] 12:00:00 AM EDT [facility]) [facility] 02/10/2016 eCW2 ([facility] 12:00:00 AM EDT [facility]) [facility] 02/02/2016 eCW2 ([facility] 12:00:00 AM EDT [facility] Care) [facility] 01/29/2016 eCW2 ([facility] 12:00:00 AM EDT [facility]) [facility] 01/22/2016 eCW2 ([facility] 12:00:00 AM EDT [facility] Care) [facility] 01/19/2016 eCW2 ([facility] 12:00:00 AM EDT [facility]) [facility] 01/06/2016 eCW2 ([facility] 12:00:00 AM EDT [facility]) [facility] 12/10/2015 eCW2 ([facility] 12:00:00 AM EDT [facility]) [facility] 12/08/2015 eCW2 ([facility] 12:00:00 AM EDT [facility]) [facility] 11/19/2015 eCW2 ([facility] 12:00:00 AM EDT [facility] Care) [facility] 11/17/2015 eCW2 ([facility] 12:00:00 AM EDT [facility] Care) [facility] 11/12/2015 eCW2 ([facility] 12:00:00 AM EDT [facility] Care) [facility] 11/10/2015 eCW2 ([facility] 12:00:00 AM EDT [facility] Care) [facility] 11/04/2015 eCW2 ([facility] 12:00:00 AM EDT [facility] Care) [facility] 11/03/2015 eCW2 ([facility] 12:00:00 AM EDT [facility] Care) [facility] 10/23/2015 eCW2 ([facility] 12:00:00 AM EDT [facility] Care) [facility] 10/21/2015 eCW2 ([facility] 12:00:00 AM EDT [facility] Care) [facility] 10/17/2015 eCW2 ([facility] 12:00:00 AM EDT [facility] Care) [facility] 10/14/2015 eCW2 ([facility] 12:00:00 AM EDT [facility] Care) [facility] 10/03/2015 eCW2 ([facility] 12:00:00 AM EDT [facility] Care) [facility] 09/30/2015 eCW2 ([facility] 12:00:00 AM EDT [facility] Care) [facility] 09/18/2015 eCW2 ([facility] 12:00:00 AM EDT [facility] Care) [facility] 09/12/2015 eCW2 ([facility] 12:00:00 AM EDT [facility] Care) [facility] 09/10/2015 eCW2 ([facility] 12:00:00 AM EDT [facility] Care) [facility] 09/10/2015 eCW2 ([facility] 12:00:00 AM EDT [facility] Care) [facility] 08/28/2015 eCW2 ([facility] 12:00:00 AM EDT [facility]) [facility] 08/22/2015 eCW2 ([facility] 12:00:00 AM EDT [facility]) [facility] 08/20/2015 eCW2 [facility] 12:00:00 AM EDT [facility]) [facility] 08/19/2015 eCW2 ([facility] 12:00:00 AM EDT [facility]) [facility] 08/15/2015 eCW2 [facility] 12:00:00 AM EDT [facility]) [facility] 08/13/2015 eCW2 [facility] 12:00:00 AM EDT [facility]) [facility] 08/11/2015 eCW2 [facility] 12:00:00 AM EDT [facility]) [facility] 08/08/2015 eCW2 [facility] 12:00:00 AM EDT [facility] Care) [facility] 08/04/2015 eCW2 ([facility] 12:00:00 AM EDT [facility] Care) [facility] 07/31/2015 eCW2 [facility] 12:00:00 AM EDT [facility]) [facility] 07/31/2015 eCW2 ([facility] 12:00:00 AM EDT [facility] Care) [facility] 07/21/2015 eCW2 ([facility] 12:00:00 AM EDT [facility] Care) [facility] 07/16/2015 eCW2 ([facility] 12:00:00 AM EDT [facility]) [facility] 07/15/2015 eCW2 ([facility] 12:00:00 AM EDT [facility] Care) [facility] 07/11/2015 eCW2 ([facility] 12:00:00 AM EDT [facility]) [facility] 07/11/2015 eCW2 ([facility] 12:00:00 AM EDT [facility]) [facility] 07/09/2015 eCW2 ([facility] 12:00:00 AM EDT [facility] Care) [facility] 07/09/2015 eCW2 ([facility] 12:00:00 AM EDT [facility] Care) [facility] 07/07/2015 eCW2 ([facility] 12:00:00 AM EDT [facility] Care) [facility] 07/03/2015 eCW2 ([facility] 12:00:00 AM EDT [facility] Care) [facility] 06/26/2015 eCW2 ([facility] 12:00:00 AM EST [facility] Care) [facility] 06/23/2015 eCW2 ([facility] 12:00:00 AM EST [facility] Care) [facility] 06/13/2015 eCW2 ([facility] 12:00:00 AM EST [facility]) [facility] 06/10/2015 eCW2 ([facility] 12:00:00 AM EST [facility] Care) [facility] 05/26/2015 eCW2 ([facility] 12:00:00 AM EST [facility] Care) [facility] 05/22/2015 eCW2 ([facility] 12:00:00 AM EST [facility] Care) [facility] 05/21/2015 eCW2 ([facility] 12:00:00 AM EST [facility] Care) [facility] 05/21/2015 eCW2 ([facility] 12:00:00 AM EST [facility] Care) [facility] Phill Janeth 05/16/2015 eCW2 ([facility] 12:00:00 AM EST [facility] Care) [facility] Phill Janeth 05/08/2015 eCW2 ([facility] 12:00:00 AM EST [facility] Care) [facility] 05/08/2015 eCW2 ([facility] 12:00:00 AM EST [facility]) [facility] 05/08/2015 eCW2 ([facility] 12:00:00 AM EST [facility]) [facility] 05/02/2015 eCW2 ([facility] 12:00:00 AM EST [facility] Care) [facility] 05/02/2015 eCW2 ([facility] 12:00:00 AM EST [facility] Care) [facility] 05/02/2015 eCW2 ([facility] 12:00:00 AM EST [facility] Care) [facility] 04/25/2015 eCW2 ([facility] 12:00:00 AM EST [facility]) [facility] 04/22/2015 eCW2 ([facility] 12:00:00 AM EST [facility]) [facility] 04/08/2015 eCW2 ([facility] 12:00:00 AM EST [facility]) [facility] 04/07/2015 eCW2 ([facility] 12:00:00 AM EST [facility] Care) [facility] 03/27/2015 eCW2 ([facility] 12:00:00 AM EST [facility] Care) [facility] 03/24/2015 eCW2 ([facility] 12:00:00 AM EST [facility] Care) [facility] Phill Janeth 02/28/2015 eCW2 ([facility] 12:00:00 AM EST [facility]) [facility] Phill Janeth 02/26/2015 [facility]CW2 [facility] 12:00:00 AM EST [facility]) [facility] 02/11/2015 eCW2 ([facility] 12:00:00 AM EDT [facility]) [facility] 02/11/2015 [facility]CW2 [facility] 12:00:00 AM EDT [facility]) [facility] 02/06/2015 eCW2 ([facility] 12:00:00 AM EDT [facility]) [facility] 02/06/2015 eCW2 ([facility] 12:00:00 AM EDT [facility]) [facility] Phill Janeth 02/05/2015 eCW2 ([facility] 12:00:00 AM EDT [facility]) [facility] 02/05/2015 eCW2 ([facility] 12:00:00 AM EDT [facility]) [facility] 02/05/2015 eCW2 ([facility] 12:00:00 AM EDT [facility]) [facility] Phill Janeth 01/15/2015 eCW2 ([facility] 12:00:00 AM EDT [facility]) [facility] 12/09/2014 eCW2 [facility] 12:00:00 AM EDT [facility]) [facility] 12/06/2014 [facility]C W2 [facility]00 AM [facility] 11/05/2014 eC W2 ([facility] 12[facility]00:00 AM EDT [facility]) [facility] 11/04/2014 eCW2 ([facility] 12:00:00 AM EDT [facility]) [facility] Janeth 10/16/2014 eC W2 [facility] 12:00:00 AM EDT [facility]) [facility] 10/14/2014 eCW2 [facility] 12:00:00 AM EDT [facility]) [facility] 10/14/2014 eCW2 ([facility] 12:00:00 AM EDT [facility]) [facility] 09/11/2014 eCW2 ([facility] 12:00:00 AM ED [facility]) [facility] 09/04/2014 eCW2 ([facility] 12:00:00 AM ED [facility]) [facility] 09/02/2014 eCW2 ([facility] 12:00:00 AM ED [facility]) [facility] Janeth 08/15/2014 eCW2 ([facility] 12:00:00 AM ED [facility]) [facility] 08/07/2014 eCW2 ([facility] 12:00:00 AM ED [facility]) [facility] 08/07/2014 eCW2 [facility] 12:00:00 AM ED [facility]) [facility] 08/07/2014 eCW2 [facility] 08/07/2014 eCW2 [facility] 12:00:00 AM ED [facility] 08/06/2014 eCW2 ([facility] 12:00:00 AM ED [facility]) [facility] 08/05/2014 eCW2 ([facility] 12:00:00 AM EDT [facility] 08/05/2014 eCW2 ([facility] 12:00:00 AM EDT [facility]) [facility] 08/05/2014 eCW2 ([facility] 12:00:00 AM EDT [facility]) [facility] 07/30/2014 eCW2 ([facility] 12:00:00 AM EDT [facility]) [facility] 07/24/2014 eCW2 ([facility] 12:00:00 AM EDT [facility]) [facility] 07/22/2014 eCW2 ([facility] 12:00:00 AM EDT [facility]) [facility] 07/18/2014 eCW2 ([facility] 12:00:00 AM EDT [facility]) [facility] 07/17/2014 eCW2 ([facility] 12:00:00 AM EDT [facility]) [facility] 07/17/2014 eCW2 ([facility] 12:00:00 AM EDT [facility]) [facility] 07/16/2014 eCW2 ([facility] 12:00:00 AM EDT [facility]) [facility] 07/15/2014 eCW2 ([facility] 12:00:00 AM EDT [facility]) [facility] 07/12/2014 eCW2 ([facility] 12:00:00 AM EDT [facility]) [facility] 07/11/2014 eCW2 ([facility] 12:00:00 AM EDT [facility]) [facility] 07/10/2014 eCW2 ([facility] 12:00:00 AM EDT [facility]) [facility] Janeth 07/10/2014 eCW2 ([facility] 12:00:00 AM EDT [facility]) [facility] Janeth 07/10/2014 eCW2 ([facility] 12:00:00 AM EDT [facility]) [facility] 07/09/2014 eCW2 ([facility] 12:00:00 AM EDT [facility]) [facility] 07/09/2014 eCW2 [facility] 12:00:00 AM EDT [facility]) [facility] 07/08/2014 eCW2 [facility] 12:00:00 AM EDT [facility]) [facility] Janeth 07/03/2014 eCW2 ([facility] 12:00:00 AM EDT [facility]) [facility] 07/02/2014 eCW2 ([facility] 12:00:00 AM EDT [facility]) [facility] 07/02/2014 eCW2 ([facility] 12:00:00 AM EDT [facility]) [facility] 07/02/2014 eCW2 ([facility] 12:00:00 AM EDT [facility]) [facility] 06/26/2014 eCW2 ([facility] 12:00:00 AM EDT [facility]) [facility] 06/21/2014 eCW2 [facility] 12:00:00 AM EST [facility]) [facility] 06/18/2014 eCW2 ([facility] 12:00:00 AM EST [facility]) [facility] 06/17/2014 eCW2 ([facility] 12:00:00 AM EST [facility]) [facility] 06/17/2014 eCW2 ([facility] 12:00:00 AM EST [facility]) [facility] 06/12/2014 eCW2 ([facility] 12:00:00 AM EST [facility]) [facility] 05/28/2014 eCW2 ([facility] 12:00:00 AM EST [facility]) [facility] 05/07/2014 eCW2 ([facility] 12:00:00 AM EST [facility]) [facility] 05/02/2014 eCW2 ([facility] 12:00:00 AM EST [facility]) [facility] 04/17/2014 eCW2 [facility] 12:00:00 AM EST [facility]) [facility] 04/03/2014 eCW2 ([facility] 12:00:00 AM EST [facility]) [facility] 03/26/2014 eCW2 ([facility] 12:00:00 AM EST [facility]) [facility] 02/18/2014 eCW2 ([facility] 12:00:00 AM EST [facility]) [facility] 02/12/2014 eCW2 [facility] 12:00:00 AM EDT [facility]) [facility] 01/30/2014 eCW2 ([facility] 12:00:00 AM EDT [facility]) [facility] 01/29/2014 eCW2 [facility] 12:00:00 AM EDT [facility]) [facility] 01/09/2014 eCW2 ([facility] 12:00:00 AM EDT [facility] 01/09/2014 eCW2 ([facility] 12:00:00 AM EDT [facility]) [facility] 01/09/2014 eCW2 ([facility] 12:00:00 AM EDT [facility]) [facility] 12/06/2013 eCW2 ([facility] 12:00:00 AM EDT [facility]) [facility] 12/06/2013 eCW2 ([facility] 12:00:00 AM EDT [facility]) [facility] 12/06/2013 eCW2 ([facility] 12:00:00 AM EDT [facility]) [facility] 11/14/2013 eCW2 ([facility] 12:00:00 AM EDT [facility]) [facility] 10/29/2013 eCW2 ([facility] 12:00:00 AM EDT [facility]) [facility] 10/25/2013 eCW2 ([facility] 12:00:00 AM EDT [facility]) [facility] 10/18/2013 eCW2 ([facility] 12:00:00 AM EDT [facility]) [facility] 10/16/2013 eCW2 ([facility] 12:00:00 AM EDT [facility]) [facility] 10/12/2013 eCW2 ([facility] 12:00:00 AM EDT [facility]) [facility] 10/11/2013 eCW2 ([facility] 12:00:00 AM EDT [facility]) [facility] 10/11/2013 eCW2 ([facility] 12:00:00 AM EDT [facility]) [facility] 10/10/2013 eCW2 ([facility] 12:00:00 AM EDT [facility]) [facility] 09/04/2013 eCW2 ([facility] 12:00:00 AM EDT [facility]) [facility] 09/03/2013 eCW2 ([facility] 12:00:00 AM EDT [facility]) [facility] 09/03/2013 eCW2 ([facility] 12:00:00 AM EDT [facility]) [facility] 08/14/2013 eCW2 ([facility] 12:00:00 AM EDT [facility]) [facility] 08/13/2013 eCW2 ([facility] 12:00:00 AM EDT [facility]) [facility] 08/09/2013 eCW2 ([facility] 12:00:00 AM EDT [facility]) [facility] 08/08/2013 eCW2 ([facility] 12:00:00 AM EDT [facility]) [facility] 07/27/2013 eCW2 ([facility] 12:00:00 AM EDT [facility]) [facility] 07/20/2013 eCW2 ([facility] 12:00:00 AM EDT [facility]) [facility] 07/10/2013 eCW2 ([facility] 12:00:00 AM EDT [facility]) [facility] 07/09/2013 eCW2 ([facility] 12:00:00 AM EDT [facility]) [facility] 07/09/2013 eCW2 ([facility] 12:00:00 AM EDT [facility]) [facility] 07/06/2013 eCW2 ([facility] 12:00:00 AM ED [facility]) [facility] 06/12/2013 [facility]CW2 [facility] 12:00:00 AM EST [facility]) [facility] Janeth 06/07/2013 eCW2 [facility] 12:00:00 AM EST [facility]) [facility] 05/18/2013 eCW2 ([facility] 12:00:00 AM EST [facility]) [facility] 04/06/2013 eCW2 ([facility] 12:00:00 AM EST [facility]) [facility] 04/04/2013 eCW2 ([facility] 12:00:00 AM EST [facility]) [facility] 03/23/2013 eCW2 ([facility] 12:00:00 AM EST [facility]) [facility] 03/22/2013 eCW2 ([facility] 12:00:00 AM EST [facility]) [facility] 03/21/2013 eCW2 ([facility] 12:00:00 AM EST [facility]) [facility] 03/14/2013 eCW2 ([facility] 12:00:00 AM EST [facility]) [facility] 03/13/2013 eCW2 ([facility] 12:00:00 AM EST [facility]) [facility] 03/05/2013 eCW2 ([facility] 12:00:00 AM EST [facility]) [facility] 02/23/2013 eCW2 ([facility] 12:00:00 AM EST [facility]) [facility] 02/23/2013 eCW2 ([facility] 12:00:00 AM EST [facility]) [facility] 02/22/2013 eCW2 ([facility] 12:00:00 AM EST [facility]) [facility] Janeth 02/22/2013 eCW2 ([facility] 12:00:00 AM EST [facility]) [facility] 02/19/2013 eCW2 ([facility] 12:00:00 AM EST [facility]) [facility] 02/08/2013 eCW2 ([facility] 12:00:00 AM EDT [facility]) [facility] 02/05/2013 eCW2 ([facility] 12:00:00 AM EDT [facility]) [facility] 02/05/2013 eCW2 ([facility] 12:00:00 AM EDT [facility]) [facility] 12/01/2012 eCW2 ([facility] 12:00:00 AM EDT [facility]) [facility] 11/30/2012 eCW2 ([facility] 12:00:00 AM EDT [facility]) [facility] 11/30/2012 eCW2 ([facility] 12:00:00 AM EDT [facility]) [facility] 11/22/2012 eCW2 ([facility] 12:00:00 AM EDT [facility]) [facility] 10/04/2012 eCW2 ([facility] 12:00:00 AM EDT [facility]) [facility] 10/02/2012 eCW2 ([facility] 12:00:00 AM EDT [facility]) [facility] 09/06/2012 eCW2 ([facility] 12:00:00 AM EDT [facility]) [facility] 07/19/2012 eCW2 ([facility] 12:00:00 AM EDT [facility]) [facility] 07/19/2012 eCW2 ([facility] 12:00:00 AM EDT [facility]) [facility] 05/09/2012 eCW2 ([facility] 12:00:00 AM EST [facility]) [facility] 02/04/2012 eCW2 ([facility] 12:00:00 AM EDT [facility]) [facility] 01/06/2012 eCW2 ([facility] 12:00:00 AM EDT [facility]) [facility] 01/06/2012 eCW2 ([facility] 12:00:00 AM EDT [facility]) [facility] 12/06/2011 eCW2 ([facility] 12:00:00 AM EDT [facility]) [facility] 12/06/2011 eCW2 ([facility] 12:00:00 AM EDT [facility]) [facility] 12/01/2011 eCW2 ([facility] 12:00:00 AM EDT [facility]) [facility] 12/01/2011 eCW2 ([facility] 12:00:00 AM EDT [facility]) [facility] 11/16/2011 eCW2 ([facility] 12:00:00 AM EDT [facility]) [facility] 11/13/2011 eCW2 ([facility] 12:00:00 AM EDT [facility]) [facility] 11/13/2011 eCW2 ([facility] 12:00:00 AM EDT [facility]) [facility] 11/03/2011 eCW2 ([facility] 12:00:00 AM EDT [facility]) [facility] 11/03/2011 eCW2 ([facility] 12:00:00 AM EDT [facility]) [facility] 10/13/2011 eCW2 ([facility] 12:00:00 AM EDT [facility]) [facility] 10/08/2011 eCW2 ([facility] 12:00:00 AM EDT [facility]) [facility] 10/08/2011 eCW2 ([facility] 12:00:00 AM EDT [facility]) [facility] 10/04/2011 eCW2 ([facility] 12:00:00 AM EDT [facility]) [facility] 08/19/2011 eCW2 ([facility] 12:00:00 AM EDT [facility]) [facility] 08/13/2011 eCW2 ([facility] 12:00:00 AM EDT [facility]) [facility] 07/05/2011 eCW2 ([facility] 12:00:00 AM EDT [facility]) [facility] 07/02/2011 eCW2 ([facility] 12:00:00 AM EDT [facility]) [facility] 06/30/2011 eCW2 ([facility] 12:00:00 AM EDT [facility]) [facility] 06/21/2011 eCW2 ([facility] 12:00:00 AM EST [facility]) [facility] 06/17/2011 eCW2 ([facility] 12:00:00 AM EST [facility]) [facility] 06/17/2011 eCW2 ([facility] 12:00:00 AM EST [facility]) [facility] Janeth 06/08/2011 eCW2 ([facility] 12:00:00 AM EST [facility]) [facility] Janeth 05/13/2011 eCW2 ([facility] 12:00:00 AM EST [facility]) [facility] 05/05/2011 eCW2 ([facility] 12:00:00 AM EST [facility]) [facility] 04/27/2011 eCW2 ([facility] 12:00:00 AM EST [facility]) [facility] 04/27/2011 eCW2 ([facility] 12:00:00 AM EST [facility]) [facility] 04/01/2011 eCW2 ([facility] 12:00:00 AM EST [facility]) [facility] 03/31/2011 eCW2 ([facility] 12:00:00 AM EST [facility]) [facility] 03/03/2011 eCW2 ([facility] 12:00:00 AM EST [facility]) [facility] 01/18/2011 eCW2 ([facility] 12:00:00 AM EDT [facility]) [facility] 01/07/2011 eCW2 ([facility] 12:00:00 AM EDT [facility]) [facility] 12/17/2010 eCW2 ([facility] 12:00:00 AM EDT [facility]) [facility] 11/12/2010 eCW2 ([facility] 12:00:00 AM EDT [facility]) [facility] 10/21/2010 eCW2 ([facility] 12:00:00 AM EDT [facility]) [facility] Janeth 10/12/2010 eCW2 ([facility] 12:00:00 AM EDT [facility]) [facility] 10/12/2010 eCW2 [facility] 12:00:00 AM EDT [facility]) [facility] 10/12/2010 eCW2 ([facility] 12:00:00 AM EDT [facility]) [facility] 10/12/2010 eCW2 ([facility] 12:00:00 AM EDT [facility]) [facility] 10/02/2010 eCW2 [facility] 12:00:00 AM EDT [facility]) [facility] 10/02/2010 eCW2 ([facility] 12:00:00 AM EDT [facility]) [facility] 09/30/2010 eCW2 ([facility] 12:00:00 AM EDT [facility]) [facility] 09/23/2010 eCW2 ([facility] 12:00:00 AM EDT [facility]) [facility] 09/18/2010 eCW2 ([facility] 12:00:00 AM EDT [facility]) [facility] 09/11/2010 eCW2 ([facility] 12:00:00 AM EDT [facility]) [facility] 09/10/2010 eCW2 ([facility] 12:00:00 AM EDT [facility]) [facility] 09/07[facility]2010 eCW2 ([facility] 12:00:00 AM EDT [facility]) [facility] 08/19/2010 eCW2 ([facility] 12:00:00 AM EDT [facility]) [facility] 08/18/2010 eCW2 ([facility] 12:00:00 AM EDT [facility]) [facility] Phill Janeth 08/17/2010 eCW2 ([facility] 12:00:00 AM EDT [facility]) [facility] Janeth 08/11/2010 eCW2 ([facility] 12:00:00 AM EDT [facility]) [facility] Janeth 04/22/2010 eCW2 ([facility] 12:00:00 AM EST [facility]) [facility] 03/24/2010 eCW2 ([facility] 12:00:00 AM EST [facility]) [facility] 03/23/2010 eCW2 ([facility] 12:00:00 AM EST [facility]) [facility] 03/20/2010 eCW2 ([facility] 12:00:00 AM EST [facility]) [facility] 03/19/2010 eCW2 ([facility] 12:00:00 AM EST [facility]) [facility] 03/17/2010 eCW2 ([facility] 12:00:00 AM EST [facility]) [facility] 03/16/2010 eCW2 ([facility] 12:00:00 AM EST [facility]) [facility] 03/09/2010 eCW2 ([facility] 12:00:00 AM EST [facility]) [facility] 03/09/2010 eCW2 ([facility] 12:00:00 AM EST [facility]) [facility] 03/03/2010 eCW2 ([facility] 12:00:00 AM EST [facility]) [facility] 03/03/2010 eCW2 ([facility] 12:00:00 AM EST [facility]) [facility] 02/05/2010 eCW2 ([facility] 12:00:00 AM EDT [facility]) [facility] 01/12/2010 eCW2 ([facility] 12:00:00 AM EDT [facility]) [facility] 12/24/2009 eCW2 ([facility] 12:00:00 AM EDT [facility]) [facility] 12/15/2009 eCW2 ([facility] 12:00:00 AM EDT [facility]) [facility] 12/12/2009 eCW2 ([facility] 12:00:00 AM EDT [facility]) [facility] 11/25/2009 eCW2 ([facility] 12:00:00 AM EDT [facility]) [facility] 11/21/2009 eCW2 ([facility] 12:00:00 AM EDT [facility]) [facility] 10/15/2009 eCW2 ([facility] 12:00:00 AM EDT [facility]) [facility] 09/22/2009 eCW2 ([facility] 12:00:00 AM EDT [facility]) [facility] 06/30/2009 eCW2 ([facility] 12:00:00 AM EDT [facility]) [facility] 06/11/2009 eCW2 ([facility] 12:00:00 AM EST [facility]) [facility] 06/04/2009 eCW2 ([facility] 12:00:00 AM EST [facility]) [facility] 06/04/2009 eCW2 ([facility] 12:00:00 AM EST [facility]) [facility] 05/26/2009 eCW2 ([facility] 12:00:00 AM EST [facility]) [facility] 05/01/2009 eCW2 ([facility] 12:00:00 AM EST [facility]) [facility] 04/30/2009 eCW2 ([facility] 12:00:00 AM EST [facility]) [facility] 04/30/2009 eCW2 ([facility] 12:00:00 AM EST [facility]) [facility] 04/24/2009 eCW2 ([facility] 12:00:00 AM EST [facility]) [facility] 04/24/2009 eCW2 ([facility] 12:00:00 AM EST [facility]) [facility] 04/22/2009 eCW2 ([facility] 12:00:00 AM EST [facility]) [facility] 04/22/2009 eCW2 ([facility] 12:00:00 AM EST [facility]) [facility] 04/22/2009 eCW2 ([facility] 12:00:00 AM EST [facility]) [facility] 10/17/2008 eCW2 ([facility] 12:00:00 AM EDT [facility]) [facility] 10/11/2008 eCW2 ([facility] 12:00:00 AM EDT [facility]) [facility] 09/26/2008 eCW2 ([facility] 12:00:00 AM EDT [facility]) Immunizations Vaccine Date Status Description Data Source(s) varicella 12/22/2017 completed eCW3 ([facility] 10:22:00 AM ED Health Care) varicella 12/22/2017 completed eCW3 ([facility] 10:22:00 AM [facility] Health Care) varicella 12/22/2017 completed eCW3 ([facility] 10:22:00 AM [facility] Health Care) varicella 12/22/2017 completed eCW3 ([facility] 10:22:00 AM [facility] Health Care) varicella 12/22/2017 completed eCW3 ([facility] 10:22:00 AM [facility] Health Care) Tdap 08/19/2010 completed eCW3 ([facility] 03:55:22 PM ED Health Care) Tdap 08/19/2010 completed eCW3 ([facility] 03:55:22 PM [facility] Health Care) Tdap 08/19/2010 completed eCW3 ([facility] 03:55:22 PM [facility] Health Care) Tdap 08/19/2010 completed eCW3 ([facility] 03:55:22 PM [facility] Health Care) Tdap 08/19/2010 completed eCW3 ([facility] 03:55:22 PM [facility]) No Known Immunizations completed eCW2 ([facility]) No Known Immunizations completed eCW2 ([facility]) No Known Immunizations completed eCW2 ([facility]) No Known Immunizations completed eCW2 ([facility]) No Known Immunizations completed eCW2 ([facility]) No Known Immunizations completed eCW2 ([facility]) No Known Immunizations completed eCW2 ([facility]) No Known Immunizations completed eCW2 ([facility]) Medications Medication Brand Start Product Dose Route Administrative Pharmacy [facility] Indications Reaction Description Data Name Date Form Instructions Instructions Source(s) Sertraline Sertra .0 active Sertrali ne eCW3 25 MG Oral line 2019 {tabl HCl 25 MG ([facility] Tablet HCl 25 12:00: et} [facility] Sertraline [facility] 00 AM Health HCl 25 MG EDT Care) Cyclobenzap Cyclob .0 active Cyclobe nzapr eCW3 rine enzapr 2019 {tabl ine HCl 10 ([facility] hydrochlori ine 12:00: et_as mg [facility] de 10 MG HCl 10 00 AM _need Health Oral Tablet mg EDT ed} Care) Cyclobenzap rine HCl 10 mg Sertraline Sertra .0 active Sertrali ne eCW3 25 MG Oral line 2020 {tabl HCl 25 MG ([facility] Tablet HCl 25 12:00: et} [facility] Sertraline MG 00 AM Health HCl 25 MG EDT Care) Cyclobenzap Cyclob .0 active Cyclobe nzapr eCW3 rine enzapr 2020 {tabl ine HCl 10 ([facility] hydrochlori ine 12:00: et_as mg [facility] de 10 MG HCl 10 00 AM _need Health Oral Tablet mg EDT ed} Care) Cyclobenzap rine HCl 10 mg Blood Blood 10/22/ active Blood eCW3 Glucose Glucos 2020 Glucose ([facility] 12:00: [facility] [place] 00 AM System Health w/Device r EDT w/Device Care) System w/[place] ce Blood Blood 10/22/ active Blood eCW3 Glucose Glucos 2020 Glucose ([facility] 12:00: [facility] [place] 00 AM System Health w/Device r EDT w/Device Care) System w/[place] Bacitracin Bacitr .0 active Bacitrac in eCW3 0.5 UNT/MG acin 2020 {appl 500 UNIT/GM ( [facility] Topical 500 12:00: icati [facility] Ointment UNIT/G 00 AM on} Health Bacitracin M EDT Care) 500 UNIT/GM Blood Blood 10/22/ active Blood eCW3 Glucose Glucos 2020 Glucose ([facility] 12:00: [facility] [place] 00 AM System Health w/Device r EDT w/Device Care) System w/[place] Bacitracin Bacitr .0 active Bacitrac in eCW3 0.5 UNT/MG acin 2020 {appl 500 UNIT/GM ( [facility] Topical 500 12:00: icati [facility] Ointment UNIT/G 00 AM on} Health Bacitracin M EDT Care) 500 UNIT/GM Bacitracin Bacitr .0 active Bacitrac in eCW3 0.5 UNT/MG acin 2020 {appl 500 UNIT/GM ( [facility] Topical 500 12:00: icati [facility] Ointment UNIT/G 00 AM on} Health Bacitracin M EDT Care) 500 UNIT/GM Bacitracin Bacitr / 1.0 active Bacitrac in eCW3 0.5 UNT/MG acin 2020 {appl 500 UNIT/GM ( [facility] Topical 500 12:00: icati [facility] Ointment UNIT/G 00 AM on} Health Bacitracin M EDT Care) 500 UNIT/GM Blood Blood 10/22/ active Blood eCW3 Glucose Glucos 2020 Glucose ([facility] 12:00: [facility] [place] 00 AM System Health w/Device r EDT w/Device Care) System w/[place] Bacitracin Bacitr 07/07/ 1.0 active Bacitrac in eCW3 0.5 UNT/MG acin 2020 {appl 500 UNIT/GM ( [facility] Topical 500 12:00: icati [facility] Ointment UNIT/G 00 AM on} Health Bacitracin M EDT Care) 500 UNIT/GM Bacitracin Bacitr // 1.0 active Bacitrac in eCW3 0.5 UNT/MG acin 2020 {appl 500 UNIT/GM ( [facility] Topical 500 12:00: icati [facility] Ointment UNIT/G 00 AM on} Health Bacitracin M EDT Care) 500 UNIT/GM Blood Blood 10/22/ active Blood eCW3 Glucose Glucos 2020 Glucose ([facility] 12:00: [facility] [place] 00 AM System Health w/Device r EDT w/Device Care) System w/[place] Blood Blood 10/22/ active Blood eCW3 Glucose Glucos 2020 Glucose ([facility] 12:00: [facility] [place] 00 AM System Health w/Device r EDT w/Device Care) System w/[place] Nebulizer - Nebuli 10/21/ active Nebuliz er - eCW3 zer - 2020 ([facility] 12:00: [facility] 00 AM Health EDT Care) Nebulizer - Nebuli 10/21/ active Nebuliz er - eCW3 zer - 2020 ([facility] 12:00: [facility] 00 AM Health EDT Care) Nebulizer - Nebuli 10/21/ active Nebuliz er - eCW3 zer - 2020 ([facility] 12:00: [facility] 00 AM Health EDT Care) Nebulizer - Nebuli 10/21/ active Nebuliz er - eCW3 zer - 2020 ([facility] 12:00: [facility] 00 AM Health EDT Care) Nebulizer - Nebuli 10/21/ active Nebuliz er - eCW3 zer - 2020 ([facility] 12:00: [facility] 00 AM Health EDT Care) Nebulizer - Nebuli 10/21/ active Nebuliz er - eCW3 zer - 2020 ([facility] 12:00: [facility] 00 AM Health EDT Care) Lancet UNK 09/28/ active Lancet eCW3 Devices - 2020 Devices - ([facility] 12:[facility]: [facility] 00 AM Health EDT Care) Lancet UNK 09/28/ active Lancet eCW3 Devices - 2020 Devices - ([facility] 12:[facility]: [facility] 00 AM [facility] EDT Care) Lancet UNK 09/28/ active Lancet eCW3 Devices - 2020 Devices - ([facility] 12:00: [facility] 00 AM [facility] EDT Care) Lancet UNK 09/28/ active Lancet eCW3 Devices - 2020 Devices - ([facility] 12:00: [facility] 00 AM Health EDT Care) Lancet UNK 09/28/ active Lancet eCW3 Devices - 2020 Devices - ([facility] 12:00: [facility] 00 AM Health EDT Care) Lancet UNK 09/28/ active Lancet eCW3 Devices - 2020 Devices - ([facility] 12:00: [facility] 00 AM Health EDT Care) Lancet UNK 09/28/ active Lancet eCW3 Devices - 2020 Devices - ([facility] 12:[facility]: [facility] 00 AM Health EDT Care) Lancet UNK 09/28/ active Lancet eCW3 Devices - 2020 Devices - ([facility] 12:[facility]: [facility] 00 AM Health EDT Care) Lancet UNK 09/28/ active Lancet eCW3 Devices - 2020 Devices - ([facility] 12:[facility]: [facility] 00 AM Health EDT Care) Lancet UNK 09/28/ active Lancet eCW3 Devices - 2020 Devices - ([facility] 12:[facility]: [facility] 00 AM Health EDT Care) Lancet UNK 09/28/ active Lancet eCW3 Devices - 2020 Devices - ([facility] 12:[facility]: [facility] 00 AM Health EDT Care) COLLAGENASE Santyl 06// 1.0 active Santyl 250 eCW3 0.25 UNT/MG 250 2020 {appl UNIT/GM ([facility] Topical UNIT/G 12:00: icati [facility] Ointment M 00 AM on} Health [Santyl] EDT Care) Santyl 250 UNIT/GM COLLAGENASE Santyl 1.0 active Santyl 250 eCW3 0.25 UNT/MG 250 2020 {appl UNIT/GM ([facility] Topical UNIT/G 12:00: icati [facility] Ointment M 00 AM on} Health [Santyl] EDT Care) Santyl 250 UNIT/GM COLLAGENASE Santyl 1.0 active Santyl 250 eCW3 0.25 UNT/MG 250 2020 {appl UNIT/GM ([facility] Topical UNIT/G 12:00: icati [facility] Ointment M 00 AM on} Health [Santyl] EDT Care) Santyl 250 UNIT/GM COLLAGENASE Santyl 1.0 active Santyl 250 eCW3 0.25 UNT/MG 250 2020 {appl UNIT/GM ([facility] Topical UNIT/G 12:00: icati [facility] Ointment M 00 AM on} Health [Santyl] EDT Care) Santyl 250 UNIT/GM COLLAGENASE Santyl 1.0 active Santyl 250 eCW3 0.25 UNT/MG 250 2020 {appl UNIT/GM ([facility] Topical UNIT/G 12:00: icati [facility] Ointment M 00 AM on} Health [Santyl] EDT Care) Santyl 250 UNIT/GM COLLAGENASE Santyl 1.0 active Santyl 250 eCW3 0.25 UNT/MG 250 2020 {appl UNIT/GM ([facility] Topical UNIT/G 12:00: icati [facility] Ointment M 00 AM on} Health [Santyl] EDT Care) Santyl 250 UNIT/GM COLLAGENASE Santyl 1.0 active Santyl 250 eCW3 0.25 UNT/MG 250 2020 {appl UNIT/GM ([facility] Topical UNIT/G 12:00: icati [facility] Ointment M 00 AM on} Health [Santyl] EDT Care) Santyl 250 UNIT/GM Albuterol Albute 09/12/ 3.0 active Albuterol eCW3 0.83 MG/ML rol 2020 {ml_a Sulfate (2.5 ([facility] Inhalant Sulfat 12:00: s_nee MG/3ML) [facility] Solution e (2.5 00 AM ded} 0.083% Health Albuterol MG/3ML EDT Care) Sulfate ) (2.5 0.083% MG/3ML) 0.083% GAUZE UNK 09/12/ active GAUZE eCW3 NON-STICK 4 2019 NON-STICK 4 ( [facility] X 4 12:00: X 4 [facility] 00 AM Health EDT Care) GAUZE UNK 09/12/ active GAUZE eCW3 NON-STICK 4 2019 NON-STICK 4 ( [facility] X 4 12:00: X 4 [facility] 00 AM Health EDT Care) GAUZE UNK 09/12/ active GAUZE eCW3 NON-STICK 4 2019 NON-STICK 4 ( [facility] X 4 12:00: X 4 [facility] 00 AM Health EDT Care) GAUZE UNK 09/12/ active GAUZE eCW3 NON-STICK 4 2019 NON-STICK 4 ( [facility] X 4 12:00: X 4 [facility] 00 AM Health EDT Care) Cholecalcif UNK 1.0 active Cholecalc sabina eCW3 simon 76854 2019 {tabl rol 75677 ([facility] UNIT 12:00: et} UNIT [facility] 00 AM Health EDT Care) GAUZE K 09/12/ active GAUZE eCW3 NON-STICK 4 2019 NON-STICK 4 ( [facility] X 4 12:00: X 4 [facility] 00 AM Health EDT Care) Albuterol Albute 09/12/ 3.0 active Albuterol eCW3 0.83 MG/ML rol 2019 {ml_a Sulfate (2.5 ([facility] Inhalant Sulfat 12:00: s_nee MG/3ML) Alia er Solution e (2.5 00 AM ded} 0.083% Health Albuterol MG/3ML EDT Care) Sulfate ) (2.5 0.083% MG/3ML) 0.083% Sulfamethox Bactri 09/12/ 1.0 active Bactrim DS eCW3 azole 800 m DS 2019 {tabl 800-160 MG ([facility] MG / 800-16 12:00: et} [facility] Trimethopri 0 MG 00 AM Health m 160 MG EDT Care) Oral Tablet [Bactrim] Bactrim DS 800-160 MG GAUZE UNK 09/12/ active GAUZE eCW3 NON-STICK 4 2019 NON-STICK 4 ( [facility] X 4 12:00: X 4 [facility] 00 AM Health EDT Care) GAUZE UNK 09/12/ active GAUZE eCW3 NON-STICK 4 2019 NON-STICK 4 ( [facility] X 4 12:00: X 4 [facility] 00 AM Health EDT Care) Bacitracin Bacitr 1.0 active Bacitrac in eCW3 0.5 UNT/MG acin 2020 {appl 500 UNIT/GM ( [facility] Topical 500 12:00: icati [facility] Ointment UNIT/G 00 AM on} Health Bacitracin M EDT Care) 500 UNIT/GM Sulfamethox Bactri 1.0 active Bactrim DS eCW3 azole 800 m DS 2019 {tabl 800-160 MG ([facility] MG / 800-16 12:00: et} [facility] Trimethopri 0 MG 00 AM Health m 160 MG EDT Care) Oral Tablet [Bactrim] Bactrim DS 800-160 MG Bacitracin Bacitr 1.0 active Bacitrac in eCW3 0.5 UNT/MG acin 2019 {appl 500 UNIT/GM ( [facility] Topical 500 12:00: icati [facility] Ointment UNIT/G 00 AM on} Health Bacitracin M EDT Care) 500 UNIT/GM Cholecalcif UNK 1.0 active Cholecalc sabina eCW3 simon 15959 2019 {tabl rol 47443 ([facility] UNIT 12:00: et} UNIT [facility] 00 AM Health EDT Care) Cholecalcif UNK 1.0 active Cholecalc sabina eCW3 simon 89147 2019 {tabl rol 62451 ([facility] UNIT 12:00: et} UNIT [facility] 00 AM Health EDT Care) Prednisone Predni 09/12/ active PredniSO NE eCW3 10 MG Oral SONE 2020 10 MG ([facility] Tablet 10 MG 12:00: [facility] PredniSONE 00 AM Health 10 MG EDT Care) Cholecalcif UNK 1.0 active Cholecalc sabina eCW3 simon 55056 2019 {tabl rol 07993 ([facility] UNIT 12:00: et} UNIT [facility] 00 AM Health EDT Care) Albuterol Albute 3.0 active Albuterol eCW3 0.83 MG/ML rol 2019 {ml_a Sulfate (2.5 ([facility] Inhalant Sulfat 12:00: s_nee MG/3ML) Alia er Solution e (2.5 00 AM ded} 0.083% Health Albuterol MG/3ML EDT Care) Sulfate ) (2.5 0.083% MG/3ML) 0.083% Cholecalcif UNK 1.0 active Cholecalc sabina eCW3 simon 40954 2019 {tabl rol 72337 ([facility] UNIT 12:00: et} UNIT [facility] 00 AM Health EDT Care) Cholecalcif UNK 1.0 active Cholecalc sabina eCW3 simon 50401 2019 {tabl rol 68548 ([facility] UNIT 12:00: et} UNIT [facility] 00 AM Health EDT Care) Albuterol Albute 3.0 active Albuterol eCW3 0.83 MG/ML rol 2019 {ml_a Sulfate (2.5 ([facility] Inhalant Sulfat 12:00: s_nee MG/3ML) Alia er Solution e (2.5 00 AM ded} 0.083% Health Albuterol MG/3ML EDT Care) Sulfate ) (2.5 0.083% MG/3ML) 0.083% Cholecalcif UNK 1.0 active Cholecalc sabina eCW3 simon 00798 2019 {tabl rol [id number] ([facility] UNIT 12:00: et} UNIT [facility] 00 AM Health EDT Care) Cholecalcif UNK 1.0 active Cholecalc sabina eCW3 simon 68269 2020 {tabl rol 07067 ([facility] UNIT 12:00: et} UNIT [facility] 00 AM Health EDT Care) Bacitracin Bacitr 1.0 active Bacitrac in eCW3 0.5 UNT/MG acin 2019 {appl 500 UNIT/GM ( [facility] Topical 500 12:00: icati [facility] Ointment UNIT/G 00 AM on} Health Bacitracin M EDT Care) 500 UNIT/GM Cholecalcif UNK 1.0 active Cholecalc sabina eCW3 simon 49135 2019 {tabl rol 01063 ([facility] UNIT 12:00: et} UNIT [facility] 00 AM Health EDT Care) Cholecalcif UNK 1.0 active Cholecalc sabina eCW3 simon 58977 2019 {tabl rol 39090 ([facility] UNIT 12:00: et} UNIT [facility] 00 AM Health EDT Care) Albuterol Albute 3.0 active Albuterol eCW3 0.83 MG/ML rol 2019 {ml_a Sulfate (2.5 ([facility] Inhalant Sulfat 12:00: s_nee MG/3ML) Alia er Solution e (2.5 00 AM ded} 0.083% Health Albuterol MG/3ML EDT Care) Sulfate ) (2.5 0.083% MG/3ML) 0.083% Albuterol Albute 3.0 active Albuterol eCW3 0.83 MG/ML rol 2019 {ml_a Sulfate (2.5 ([facility] Inhalant Sulfat 12:00: s_nee MG/3ML) Alia er Solution e (2.5 00 AM ded} 0.083% Health Albuterol MG/3ML EDT Care) Sulfate ) (2.5 0.083% MG/3ML) 0.083% Albuterol Albute 3.0 active Albuterol eCW3 0.83 MG/ML rol 2019 {ml_a Sulfate (2.5 ([facility] Inhalant Sulfat 12:00: s_nee MG/3ML) Alia er Solution e (2.5 00 AM ded} 0.083% Health Albuterol MG/3ML EDT Care) Sulfate ) (2.5 0.083% MG/3ML) 0.083% Bacitracin Bacitr 1.0 active Bacitrac in eCW3 0.5 UNT/MG acin 2020 {appl 500 UNIT/GM ( [facility] Topical 500 12:00: icati [facility] Ointment UNIT/G 00 AM on} Health Bacitracin M EDT Care) 500 UNIT/GM Albuterol Albute 3.0 active Albuterol eCW3 0.83 MG/ML rol 2020 {ml_a Sulfate (2.5 ([facility] Inhalant Sulfat 12:00: s_nee MG/3ML) Alia er Solution e (2.5 00 AM ded} 0.083% Health Albuterol MG/3ML EDT Care) Sulfate ) (2.5 0.083% MG/3ML) 0.083% Albuterol Albute 3.0 active Albuterol eCW3 0.83 MG/ML rol 2020 {ml_a Sulfate (2.5 ([facility] Inhalant Sulfat 12:00: s_nee MG/3ML) Alia er Solution e (2.5 00 AM ded} 0.083% Health Albuterol MG/3ML EDT Care) Sulfate ) (2.5 0.083% MG/3ML) 0.083% Albuterol Albute 3.0 active Albuterol eCW3 0.83 MG/ML rol 2020 {ml_a Sulfate (2.5 ([facility] Inhalant Sulfat 12:00: s_nee MG/3ML) Alia er Solution e (2.5 00 AM ded} 0.083% Health Albuterol MG/3ML EDT Care) Sulfate ) (2.5 0.083% MG/3ML) 0.083% Albuterol Albute 3.0 active Albuterol eCW3 0.83 MG/ML rol 2020 {ml_a Sulfate (2.5 ([facility] Inhalant Sulfat 12:00: s_nee MG/3ML) Alia er Solution e (2.5 00 AM ded} 0.083% Health Albuterol MG/3ML EDT Care) Sulfate ) (2.5 0.083% MG/3ML) 0.083% Albuterol Albute 3.0 active Albuterol eCW3 0.83 MG/ML rol 2020 {ml_a Sulfate (2.5 ([facility] Inhalant Sulfat 12:00: s_nee MG/3ML) Alia er Solution e (2.5 00 AM ded} 0.083% Health Albuterol MG/3ML EDT Care) Sulfate ) (2.5 0.083% MG/3ML) 0.083% Albuterol Albute 3.0 active Albuterol eCW3 0.83 MG/ML rol 2020 {ml_a Sulfate (2.5 ([facility] Inhalant Sulfat 12:00: s_nee MG/3ML) Alia er Solution e (2.5 00 AM ded} 0.083% Health Albuterol MG/3ML EDT Care) Sulfate ) (2.5 0.083% MG/3ML) 0.083% Wheelchair Wheelc 08/05/ active Wheelcha ir - eCW3 - hair - 2020 ([facility] 12:00: [facility] 00 AM Health EDT Care) Prednisone Predni 1.0 active PredniSO NE eCW3 50 MG Oral SONE 2020 {tabl 50 mg ([facility] Tablet 50 mg 12:00: et} [facility] PredniSONE 00 AM Health 50 mg EDT Care) Wheelchair Wheelc 08/05/ active Wheelcha ir - eCW3 - hair - 2020 ([facility] 12:00: [facility] 00 AM Health EDT Care) Prednisone Predni .0 active PredniSO NE eCW3 50 MG Oral SONE 2020 {tabl 50 mg ([facility] Tablet 50 mg 12:00: et} [facility] PredniSONE 00 AM Health 50 mg EDT Care) Wheelchair Wheelc 08/05/ active Wheelcha ir - eCW3 - hair - 2020 ([facility] 12:00: [facility] 00 AM Health EDT Care) Wheelchair Wheelc 08/05/ active Wheelcha ir - eCW3 - hair - 2020 ([facility] 12:00: [facility] 00 AM Health EDT Care) Prednisone Predni .0 active PredniSO NE eCW3 50 MG Oral SONE 2020 {tabl 50 mg ([facility] Tablet 50 mg 12:00: et} [facility] PredniSONE 00 AM Health 50 mg EDT Care) Prednisone Predni 1.0 active PredniSO NE eCW3 50 MG Oral SONE 2020 {tabl 50 mg ([facility] Tablet 50 mg 12:00: et} [facility] PredniSONE 00 AM Health 50 mg EDT Care) Wheelchair Wheelc 08/05/ active Wheelcha ir - eCW3 - hair - 2020 ([facility] 12:00: [facility] 00 AM Health EDT Care) Wheelchair Wheelc 08/05/ active Wheelcha ir - eCW3 - hair - 2020 ([facility] 12:00: [facility] 00 AM Health EDT Care) Prednisone Predni 1.0 active PredniSO NE eCW3 50 MG Oral SONE 2020 {tabl 50 mg ([facility] Tablet 50 mg 12:00: et} [facility] PredniSONE 00 AM Health 50 mg EDT Care) Prednisone Predni .0 active PredniSO NE eCW3 50 MG Oral SONE 2020 {tabl 50 mg ([facility] Tablet 50 mg 12:00: et} [facility] PredniSONE 00 AM Health 50 mg EDT Care) Wheelchair Wheelc 08/05/ active Wheelcha ir - eCW3 - hair - 2020 ([facility] 12:00: [facility] 00 AM Health EDT Care) Prednisone Predni .0 active PredniSO NE eCW3 50 MG Oral SONE 2020 {tabl 50 mg ([facility] Tablet 50 mg 12:00: et} [facility] PredniSONE 00 AM Health 50 mg EDT Care) Wheelchair Wheelc 08/05/ active Wheelcha ir - eCW3 - hair - 2020 ([facility] 12:00: [facility] 00 AM Health EDT Care) Prednisone Predni .0 active PredniSO NE eCW3 50 MG Oral SONE 2020 {tabl 50 mg ([facility] Tablet 50 mg 12:00: et} [facility] PredniSONE 00 AM Health 50 mg EDT Care) Wheelchair Wheelc 08/05/ active Wheelcha ir - eCW3 - hair - 2020 ([facility] 12:00: [facility] 00 AM Health EDT Care) Prednisone Predni .0 active PredniSO NE eCW3 50 MG Oral SONE 2020 {tabl 50 mg ([facility] Tablet 50 mg 12:00: et} [facility] PredniSONE 00 AM Health 50 mg EDT Care) Wheelchair Wheelc 08/05/ active Wheelcha ir - eCW3 - hair - 2020 ([facility] 12:00: [facility] 00 AM Health EDT Care) Prednisone Predni .0 active PredniSO NE eCW3 50 MG Oral SONE 2020 {tabl 50 mg ([facility] Tablet 50 mg 12:00: et} [facility] PredniSONE 00 AM Health 50 mg EDT Care) Prednisone Predni .0 active PredniSO NE eCW3 50 MG Oral SONE 2020 {tabl 50 mg ([facility] Tablet 50 mg 12:00: et} [facility] PredniSONE 00 AM Health 50 mg EDT Care) Wheelchair Wheelc 08/05/ active Wheelcha ir - eCW3 - hair - 2020 ([facility] 12:00: [facility] 00 AM Health EDT Care) Wheelchair Wheelc 08/05/ active Wheelcha ir - eCW3 - hair - 2020 ([facility] 12:00: [facility] 00 AM Health EDT Care) Prednisone Predni .0 active PredniSO NE eCW3 50 MG Oral SONE 2020 {tabl 50 mg ([facility] Tablet 50 mg 12:00: et} [facility] PredniSONE 00 AM Health 50 mg EDT Care) Prednisone Predni .0 active PredniSO NE eCW3 50 MG Oral SONE 2020 {tabl 50 mg ([facility] Tablet 50 mg 12:00: et} [facility] PredniSONE 00 AM Health 50 mg EDT Care) Wheelchair Wheelc 08/05/ active Wheelcha ir - eCW3 - hair - 2020 ([facility] 12:00: [facility] 00 AM Health EDT Care) Prednisone Predni .0 active PredniSO NE eCW3 50 MG Oral SONE 2020 {tabl 50 mg ([facility] Tablet 50 mg 12:00: et} [facility] PredniSONE 00 AM Health 50 mg EDT Care) Wheelchair Wheelc 08/05/ active Wheelcha ir - eCW3 - hair - 2020 ([facility] 12:00: [facility] 00 AM Health EDT Care) Wheelchair Wheelc 08/05/ active Wheelcha ir - eCW3 - hair - 2020 ([facility] 12:00: [facility] 00 AM Health EDT Care) Wheelchair Wheelc 08/05/ active Wheelcha ir - eCW3 - hair - 2020 ([facility] 12:00: [facility] 00 AM Health EDT Care) Prednisone Predni .0 active PredniSO NE eCW3 50 MG Oral SONE 2020 {tabl 50 mg ([facility] Tablet 50 mg 12:00: et} [facility] PredniSONE 00 AM Health 50 mg EDT Care) Prednisone Predni .0 active PredniSO NE eCW3 50 MG Oral SONE 2020 {tabl 50 mg ([facility] Tablet 50 mg 12:00: et} [facility] PredniSONE 00 AM Health 50 mg EDT Care) Wheelchair Wheelc 08/05/ active Wheelcha ir - eCW3 - hair - 2020 ([facility] 12:00: [facility] 00 AM Health EDT Care) Prednisone Predni 1.0 active PredniSO NE eCW3 50 MG Oral SONE 2020 {tabl 50 mg ([facility] Tablet 50 mg 12:00: et} [facility] PredniSONE 00 AM Health 50 mg EDT Care) Prednisone Predni 1.0 active PredniSO NE eCW3 50 MG Oral SONE 2020 {tabl 50 mg ([facility] Tablet 50 mg 12:00: et} [facility] PredniSONE 00 AM Health 50 mg EDT Care) Wheelchair Wheelc 08/05/ active Wheelcha ir - eCW3 - hair - 2020 ([facility] 12:00: [facility] 00 AM Health EDT Care) Prednisone Predni .0 active PredniSO NE eCW3 50 MG Oral SONE 2020 {tabl 50 mg ([facility] Tablet 50 mg 12:00: et} [facility] PredniSONE 00 AM Health 50 mg EDT Care) Wheelchair Wheelc 08/05/ active Wheelcha ir - eCW3 - hair - 2020 ([place] 12:00: [facility] 00 AM Health EDT Care) Wheelchair Wheelc 08/05/ active Wheelcha ir - eCW3 - hair - 2020 ([place] 12:00: [place] 00 AM Health EDT Care) Prednisone Predni .0 active PredniSO NE eCW3 50 MG Oral SONE 2020 {tabl 50 mg ([place] Tablet 50 mg 12:00: et} [place] PredniSONE 00 AM Health 50 mg EDT Care) Prednisone Predni .0 active PredniSO NE eCW3 50 MG Oral SONE 2020 {tabl 50 mg ([place] Tablet 50 mg 12:00: et} [place] PredniSONE 00 AM Health 50 mg EDT Care) Wheelchair Wheelc 08/05/ active Wheelcha ir - eCW3 - hair - 2020 ([place] 12:00: [facility] 00 AM Health EDT Care) Wheelchair Wheelc 08/05/ active Wheelcha ir - eCW3 - hair - 2020 ([place] 12:00: [place] 00 AM Health EDT Care) Wheelchair Wheelc 08/05/ active Wheelcha ir - eCW3 - hair - 2020 ([facility] 12:00: [facility] 00 AM Health EDT Care) Prednisone Predni .0 active PredniSO NE eCW3 50 MG Oral SONE 2020 {tabl 50 mg ([facility] Tablet 50 mg 12:00: et} [place] PredniSONE 00 AM Health 50 mg EDT Care) Prednisone Predni .0 active PredniSO NE eCW3 50 MG Oral SONE 2020 {tabl 50 mg ([facility] Tablet 50 mg 12:00: et} [place] PredniSONE 00 AM Health 50 mg EDT Care) Flonase Flonas .0 active Flonase eCW 3 Allergy e 2020 {spra Allergy ([facility] Relief 50 Allerg 12:00: y_in_ Relief 50 [place] MCG/ACT y 00 AM each_ MCG/ACT Health Relief EST nostr Care) 50 il} MCG/AC T Flonase Flonas .0 active Flonase eCW 3 Allergy e 2020 {spra Allergy ([facility] Relief 50 Allerg 12:00: y_in_ Relief 50 [place] MCG/ACT y 00 AM each_ MCG/ACT Health Relief EST nostr Care) 50 il} MCG/AC T Flonase Flonas .0 active Flonase eCW 3 Allergy e 2020 {spra Allergy ([facility] Relief 50 Allerg 12:00: y_in_ Relief 50 [place] MCG/ACT y 00 AM each_ MCG/ACT Health Relief EST nostr Care) 50 il} MCG/AC T Flonase Flonas .0 active Flonase eCW 3 Allergy e 2020 {spra Allergy ([facility] Relief 50 Allerg 12:00: y_in_ Relief 50 [place] MCG/ACT y 00 AM each_ MCG/ACT Health Relief EST nostr Care) 50 il} MCG/AC T Flonase Flonas .0 active Flonase eCW 3 Allergy e 2020 {spra Allergy ([facility] Relief 50 Allerg 12:00: y_in_ Relief 50 [place] MCG/ACT y 00 AM each_ MCG/ACT Health Relief EST nostr Care) 50 il} MCG/AC T Flonase Flonas .0 active Flonase eCW 3 Allergy e 2020 {spra Allergy ([facility] Relief 50 Allerg 12:00: y_in_ Relief 50 [place] MCG/ACT y 00 AM each_ MCG/ACT Health Relief EST nostr Care) 50 il} MCG/AC T Flonase Flonas .0 active Flonase eCW 3 Allergy e 2020 {spra Allergy ([facility] Relief 50 Allerg 12:00: y_in_ Relief 50 [place] MCG/ACT y 00 AM each_ MCG/ACT Health Relief EST nostr Care) 50 il} MCG/AC T Flonase Flonas .0 active Flonase eCW 3 Allergy e 2020 {spra Allergy ([facility] Relief 50 Allerg 12:00: y_in_ Relief 50 [place] MCG/ACT y 00 AM each_ MCG/ACT Health Relief EST nostr Care) 50 il} MCG/AC T Flonase Flonas .0 active Flonase eCW 3 Allergy e 2020 {spra Allergy ([facility] Relief 50 Allerg 12:00: y_in_ Relief 50 [place] MCG/ACT y 00 AM each_ MCG/ACT Health Relief EST nostr Care) 50 il} MCG/AC T Flonase Flonas .0 active Flonase eCW 3 Allergy e 2020 {spra Allergy ([facility] Relief 50 Allerg 12:00: y_in_ Relief 50 [place] MCG/ACT y 00 AM each_ MCG/ACT Health Relief EST nostr Care) 50 il} MCG/AC T Flonase Flonas .0 active Flonase eCW 3 Allergy e 2020 {spra Allergy ([facility] Relief 50 Allerg 12:00: y_in_ Relief 50 [place] MCG/ACT y 00 AM each_ MCG/ACT Health Relief EST nostr Care) 50 il} MCG/AC T Flonase Flonas .0 active Flonase eCW 3 Allergy e 2020 {spra Allergy ([facility] Relief 50 Allerg 12:00: y_in_ Relief 50 [place] MCG/ACT y 00 AM each_ MCG/ACT Health Relief EST nostr Care) 50 il} MCG/AC T Flonase Flonas .0 active Flonase eCW 3 Allergy e 2020 {spra Allergy ([facility] Relief 50 Allerg 12:00: y_in_ Relief 50 [place] MCG/ACT y 00 AM each_ MCG/ACT Health Relief EST nostr Care) 50 il} MCG/AC T Flonase Flonas .0 active Flonase eCW 3 Allergy e 2020 {spra Allergy ([facility] Relief 50 Allerg 12:00: y_in_ Relief 50 [place] MCG/ACT y 00 AM each_ MCG/ACT Health Relief EST nostr Care) 50 il} MCG/AC T Flonase Flonas .0 active Flonase eCW 3 Allergy e 2020 {spra Allergy ([facility] Relief 50 Allerg 12:00: y_in_ Relief 50 [place] MCG/ACT y 00 AM each_ MCG/ACT Health Relief EST nostr Care) 50 il} MCG/AC T Flonase Flonas .0 active Flonase eCW 3 Allergy e 2020 {spra Allergy ([facility] Relief 50 Allerg 12:00: y_in_ Relief 50 [place] MCG/ACT y 00 AM each_ MCG/ACT Health Relief EST nostr Care) 50 il} MCG/AC T Flonase Flonas .0 active Flonase eCW 3 Allergy e 2020 {spra Allergy ([facility] Relief 50 Allerg 12:00: y_in_ Relief 50 [place] MCG/ACT y 00 AM each_ MCG/ACT Health Relief EST nostr Care) 50 il} MCG/AC T Flonase Flonas .0 active Flonase eCW 3 Allergy e 2020 {spra Allergy ([facility] Relief 50 Allerg 12:00: y_in_ Relief 50 [place] MCG/ACT y 00 AM each_ MCG/ACT Health Relief EST nostr Care) 50 il} MCG/AC T Flonase Flonas .0 active Flonase eCW 3 Allergy e 2020 {spra Allergy ([facility] Relief 50 Allerg 12:00: y_in_ Relief 50 [place] MCG/ACT y 00 AM each_ MCG/ACT Health Relief EST nostr Care) 50 il} MCG/AC T Flonase Flonas .0 active Flonase eCW 3 Allergy e 2020 {spra Allergy ([facility] Relief 50 Allerg 12:00: y_in_ Relief 50 [place] MCG/ACT y 00 AM each_ MCG/ACT Health Relief EST nostr Care) 50 il} MCG/AC T Flonase Flonas .0 active Flonase eCW 3 Allergy e 2020 {spra Allergy ([facility] Relief 50 Allerg 12:00: y_in_ Relief 50 [place] MCG/ACT y 00 AM each_ MCG/ACT Health Relief EST nostr Care) 50 il} MCG/AC T Flonase Flonas .0 active Flonase eCW 3 Allergy e 2020 {spra Allergy ([facility] Relief 50 Allerg 12:00: y_in_ Relief 50 [place] MCG/ACT y 00 AM each_ MCG/ACT Health Relief EST nostr Care) 50 il} MCG/AC T Flonase Flonas .0 active Flonase eCW 3 Allergy e 2020 {spra Allergy ([facility] Relief 50 Allerg 12:00: y_in_ Relief 50 [place] MCG/ACT y 00 AM each_ MCG/ACT Health Relief EST nostr Care) 50 il} MCG/AC T Flonase Flonas .0 active Flonase eCW 3 Allergy e 2020 {spra Allergy ([facility] Relief 50 Allerg 12:00: y_in_ Relief 50 [place] MCG/ACT y 00 AM each_ MCG/ACT Health Relief EST nostr Care) 50 il} MCG/AC T Flonase Flonas .0 active Flonase eCW 3 Allergy e 2020 {spra Allergy ([facility] Relief 50 Allerg 12:00: y_in_ Relief 50 [place] MCG/ACT y 00 AM each_ MCG/ACT Health Relief EST nostr Care) 50 il} MCG/AC T Flonase Flonas .0 active Flonase eCW 3 Allergy e 2020 {spra Allergy ([facility] Relief 50 Allerg 12:00: y_in_ Relief 50 [place] MCG/ACT y 00 AM each_ MCG/ACT Health Relief EST nostr Care) 50 il} MCG/AC T Flonase Flonas .0 active Flonase eCW 3 Allergy e 2020 {spra Allergy ([facility] Relief 50 Allerg 12:00: y_in_ Relief 50 [place] MCG/ACT y 00 AM each_ MCG/ACT Health Relief EST nostr Care) 50 il} MCG/AC T Ondansetron Ondans .0 suspend Ondans etron eCW3 4 MG etron 2019 {tabl ed 4 MG ([facility] Disintegrat 4 MG 12:00: et_on [place] ing Oral 00 AM _the_ Health Tablet EST [facility] Care) e_and _allo w_to_ disso lve} Oseltamivir Oselta .0 suspend Oselta mivir eCW3 75 MG Oral mivir 2020 {caps ed Phosphate 75 ([facility] Capsule Phosph 12:00: ule_w MG [place] Oseltamivir ate 75 00 AM ith_f Heal th Phosphate MG EST ood} Care) 75 MG Oseltamivir Oselta .0 suspend Oselta mivir eCW3 75 MG Oral mivir 2020 {caps ed Phosphate 75 ([facility] Capsule Phosph 12:00: ule_w MG [place] Oseltamivir ate 75 00 AM ith_f Heal th Phosphate MG EST ood} Care) 75 MG Ondansetron Ondans .0 suspend Ondans etron eCW3 4 MG etron 2020 {tabl ed 4 MG ([facility] Disintegrat 4 MG 12:00: et_on [place] ing Oral 00 AM _the_ Health Tablet EST tongu Care) e_and _allo w_to_ disso lve} Oseltamivir Oselta .0 suspend Oselta mivir eCW3 75 MG Oral mivir 2020 {caps ed Phosphate 75 ([facility] Capsule Phosph 12:00: ule_w MG [place] Oseltamivir ate 75 00 AM ith_f Heal th Phosphate MG EST ood} Care) 75 MG Ondansetron Ondans .0 suspend Ondans etron eCW3 4 MG etron 2020 {tabl ed 4 MG ([facility] Disintegrat 4 MG 12:00: et_on [place] ing Oral 00 AM _the_ Health Tablet EST tongu Care) e_and _allo w_to_ disso lve} Oseltamivir Oselta .0 suspend Oselta mivir eCW3 75 MG Oral mivir 2020 {caps ed Phosphate 75 ([facility] Capsule Phosph 12:00: ule_w MG [place] Oseltamivir ate 75 00 AM ith_f Heal th Phosphate MG EST ood} Care) 75 MG Oseltamivir Oselta .0 suspend Oselta mivir eCW3 75 MG Oral mivir 2020 {caps ed Phosphate 75 ([facility] Capsule Phosph 12:00: ule_w MG [place] Oseltamivir ate 75 00 AM ith_f Heal th Phosphate MG EST ood} Care) 75 MG Oseltamivir Oselta .0 suspend Oselta mivir eCW3 75 MG Oral mivir 2020 {caps ed Phosphate 75 ([facility] Capsule Phosph 12:00: ule_w MG [place] Oseltamivir ate 75 00 AM ith_f Heal th Phosphate MG EST ood} Care) 75 MG Oseltamivir Oselta .0 suspend Oselta mivir eCW3 75 MG Oral mivir 2020 {caps ed Phosphate 75 ([facility] Capsule Phosph 12:00: ule_w MG [place] Oseltamivir ate 75 00 AM ith_f Heal th Phosphate MG EST ood} Care) 75 MG Ondansetron Ondans .0 suspend Ondans etron eCW3 4 MG etron 2020 {tabl ed 4 MG ([facility] Disintegrat 4 MG 12:00: et_on [place] ing Oral 00 AM _the_ Health Tablet EST [facility] Care) e_and _allo w_to_ disso lve} Ondansetron Ondans .0 suspend Ondans etron eCW3 4 MG etron 2020 {tabl ed 4 MG ([facility] Disintegrat 4 MG 12:00: et_on [place] ing Oral 00 AM _the_ Health Tablet EST [facility] Care) e_and _allo w_to_ disso lve} Ondansetron Ondans .0 suspend Ondans etron eCW3 4 MG etron 2020 {tabl ed 4 MG ([facility] Disintegrat 4 MG 12:00: et_on [place] ing Oral 00 AM _the_ Health Tablet EST [facility] Care) e_and _allo w_to_ disso lve} Oseltamivir Oselta .0 suspend Oselta mivir eCW3 75 MG Oral mivir 2020 {caps ed Phosphate 75 ([facility] Capsule Phosph 12:00: ule_w MG [place] Oseltamivir ate 75 00 AM ith_f Heal th Phosphate MG EST ood} Care) 75 MG Ondansetron Ondans .0 suspend Ondans etron eCW3 4 MG etron 2020 {tabl ed 4 MG ([facility] Disintegrat 4 MG 12:00: et_on [place] ing Oral 00 AM _the_ Health Tablet EST [facility]) e_and _allo w_to_ disso lve} Ondansetron Ondans .0 suspend Ondans etron eCW3 4 MG etron 2020 {tabl ed 4 MG ([facility] Disintegrat 4 MG 12:00: et_on [place] ing Oral 00 AM _the_ Health Tablet EST [facility]) e_and _allo w_to_ disso lve} Oseltamivir Oselta .0 suspend Oselta mivir eCW3 75 MG Oral mivir 2020 {caps ed Phosphate 75 ([facility] Capsule Phosph 12:00: ule_w MG [place] Oseltamivir ate 75 00 AM ith_f Heal th Phosphate MG EST ood} Care) 75 MG Ondansetron Ondans .0 suspend Ondans etron eCW3 4 MG etron 2020 {tabl ed 4 MG ([facility] Disintegrat 4 MG 12:00: et_on [place] ing Oral 00 AM _the_ Health Tablet EST [facility]) e_and _allo w_to_ disso lve} Ondansetron Ondans .0 suspend Ondans etron eCW3 4 MG etron 2020 {tabl ed 4 MG ([facility] Disintegrat 4 MG 12:00: et_on [place] ing Oral 00 AM _the_ Health Tablet EST [facility]) e_and _allo w_to_ disso lve} Oseltamivir Oselta .0 suspend Oselta mivir eCW3 75 MG Oral mivir 2020 {caps ed Phosphate 75 ([facility] Capsule Phosph 12:00: ule_w MG [place] Oseltamivir ate 75 00 AM ith_f Heal th Phosphate MG EST ood} Care) 75 MG Ondansetron Ondans .0 suspend Ondans etron eCW3 4 MG etron 2020 {tabl ed 4 MG ([facility] Disintegrat 4 MG 12:00: et_on [place] ing Oral 00 AM _the_ Health Tablet EST [facility]) e_and _allo w_to_ disso lve} Ondansetron Ondans .0 suspend Ondans etron eCW3 4 MG etron 2020 {tabl ed 4 MG ([facility] Disintegrat 4 MG 12:00: et_on [place] ing Oral 00 AM _the_ Health Tablet EST tong Care) e_and _allo w_to_ disso lve} Oseltamivir Oselta .0 suspend Oselta mivir eCW3 75 MG Oral mivir 2020 {caps ed Phosphate 75 ([facility] Capsule Phosph 12:00: ule_w MG [place] Oseltamivir ate 75 00 AM ith_f Heal th Phosphate MG EST ood} Care) 75 MG Oseltamivir Oselta .0 suspend Oselta mivir eCW3 75 MG Oral mivir 2020 {caps ed Phosphate 75 ([facility] Capsule Phosph 12:00: ule_w MG [place] Oseltamivir ate 75 00 AM ith_f Heal th Phosphate MG EST ood} Care) 75 MG Ondansetron Ondans .0 suspend Ondans etron eCW3 4 MG etron 2020 {tabl ed 4 MG ([facility] Disintegrat 4 MG 12:00: et_on [place] ing Oral 00 AM _the_ Health Tablet EST tong Care) e_and _allo w_to_ disso lve} Oseltamivir Oselta .0 suspend Oselta mivir eCW3 75 MG Oral mivir 2020 {caps ed Phosphate 75 ([facility] Capsule Phosph 12:00: ule_w MG [place] Oseltamivir ate 75 00 AM ith_f Heal th Phosphate MG EST ood} Care) 75 MG Oseltamivir Oselta .0 suspend Oselta mivir eCW3 75 MG Oral mivir 2020 {caps ed Phosphate 75 ([facility] Capsule Phosph 12:00: ule_w MG [place] Oseltamivir ate 75 00 AM ith_f Heal th Phosphate MG EST ood} Care) 75 MG Ondansetron Ondans .0 suspend Ondans etron eCW3 4 MG etron 2020 {tabl ed 4 MG ([facility] Disintegrat 4 MG 12:00: et_on [place] ing Oral 00 AM _the_ Health Tablet EST tong Care) e_and _allo w_to_ disso lve} Ondansetron Ondans .0 suspend Ondans etron eCW3 4 MG etron 2020 {tabl ed 4 MG ([facility] Disintegrat 4 MG 12:00: et_on [place] ing Oral 00 AM _the_ Health Tablet EST [facility] Care) e_and _allo w_to_ disso lve} Ondansetron Ondans .0 suspend Ondans etron eCW3 4 MG etron 2020 {tabl ed 4 MG ([facility] Disintegrat 4 MG 12:00: et_on [place] ing Oral 00 AM _the_ Health Tablet EST [facility] Care) e_and _allo w_to_ disso lve} Oseltamivir Oselta .0 suspend Oselta mivir eCW3 75 MG Oral mivir 2020 {caps ed Phosphate 75 ([facility] Capsule Phosph 12:00: ule_w MG [place] Oseltamivir ate 75 00 AM ith_f Heal th Phosphate MG EST ood} Care) 75 MG Oseltamivir Oselta .0 suspend Oselta mivir eCW3 75 MG Oral mivir 2020 {caps ed Phosphate 75 ([facility] Capsule Phosph 12:00: ule_w MG [place] Oseltamivir ate 75 00 AM ith_f Heal th Phosphate MG EST ood} Care) 75 MG Oseltamivir Oselta .0 suspend Oselta mivir eCW3 75 MG Oral mivir 2020 {caps ed Phosphate 75 ([facility] Capsule Phosph 12:00: ule_w MG [place] Oseltamivir ate 75 00 AM ith_f Heal th Phosphate MG EST ood} Care) 75 MG Ondansetron Ondans .0 suspend Ondans etron eCW3 4 MG etron 2020 {tabl ed 4 MG ([facility] Disintegrat 4 MG 12:00: et_on [place] ing Oral 00 AM _the_ Health Tablet EST [facility] Care) e_and _allo w_to_ disso lve} Oseltamivir Oselta .0 suspend Oselta mivir eCW3 75 MG Oral mivir 2020 {caps ed Phosphate 75 ([facility] Capsule Phosph 12:00: ule_w MG [place] Oseltamivir ate 75 00 AM ith_f Heal th Phosphate MG EST ood} Care) 75 MG Oseltamivir Oselta .0 suspend Oselta mivir eCW3 75 MG Oral mivir 2020 {caps ed Phosphate 75 ([facility] Capsule Phosph 12:00: ule_w MG [place] Oseltamivir ate 75 00 AM ith_f Heal th Phosphate MG EST ood} Care) 75 MG Oseltamivir Oselta .0 suspend Oselta mivir eCW3 75 MG Oral mivir 2020 {caps ed Phosphate 75 ([facility] Capsule Phosph 12:00: ule_w MG [place] Oseltamivir ate 75 00 AM ith_f Heal th Phosphate MG EST ood} Care) 75 MG Oseltamivir Oselta .0 suspend Oselta mivir eCW3 75 MG Oral mivir 2020 {caps ed Phosphate 75 ([facility] Capsule Phosph 12:00: ule_w MG [place] Oseltamivir ate 75 00 AM ith_f Heal th Phosphate MG EST ood} Care) 75 MG Oseltamivir Oselta .0 suspend Oselta mivir eCW3 75 MG Oral mivir 2020 {caps ed Phosphate 75 ([facility] Capsule Phosph 12:00: ule_w MG [place] Oseltamivir ate 75 00 AM ith_f Heal th Phosphate MG EST ood} Care) 75 MG Oseltamivir Oselta .0 suspend Oselta mivir eCW3 75 MG Oral mivir 2020 {caps ed Phosphate 75 ([facility] Capsule Phosph 12:00: ule_w MG [place] Oseltamivir ate 75 00 AM ith_f Heal th Phosphate MG EST ood} Care) 75 MG Oseltamivir Oselta .0 suspend Oselta mivir eCW3 75 MG Oral mivir 2020 {caps ed Phosphate 75 ([facility] Capsule Phosph 12:00: ule_w MG [place] Oseltamivir ate 75 00 AM ith_f Heal th Phosphate MG EST ood} Care) 75 MG Ondansetron Ondans .0 suspend Ondans etron eCW3 4 MG etron 2020 {tabl ed 4 MG ([facility] Disintegrat 4 MG 12:00: et_on [place] ing Oral 00 AM _the_ Health Tablet EST tongu Care) e_and _allo w_to_ disso lve} Ondansetron Ondans .0 suspend Ondans etron eCW3 4 MG etron 2020 {tabl ed 4 MG ([facility] Disintegrat 4 MG 12:00: et_on [place] ing Oral 00 AM _the_ Health Tablet EST [facility]) e_and _allo w_to_ disso lve} Ondansetron Ondans .0 suspend Ondans etron eCW3 4 MG etron 2020 {tabl ed 4 MG ([facility] Disintegrat 4 MG 12:00: et_on [place] ing Oral 00 AM _the_ Health Tablet EST [facility]) e_and _allo w_to_ disso lve} Ondansetron Ondans .0 suspend Ondans etron eCW3 4 MG etron 2019 {tabl ed 4 MG ([facility] Disintegrat 4 MG 12:00: et_on [place] ing Oral 00 AM _the_ Health Tablet EST [facility]) e_and _allo w_to_ disso lve} Ondansetron Ondans .0 suspend Ondans etron eCW3 4 MG etron 2019 {tabl ed 4 MG ([facility] Disintegrat 4 MG 12:00: et_on [place] ing Oral 00 AM _the_ Health Tablet EST [facility]) e_and _allo w_to_ disso lve} Oseltamivir Oselta .0 suspend Oselta mivir eCW3 75 MG Oral mivir 2019 {caps ed Phosphate 75 ([facility] Capsule Phosph 12:00: ule_w MG [place] Oseltamivir ate 75 00 AM ith_f Heal th Phosphate MG EST ood} Care) 75 MG Ondansetron Ondans .0 suspend Ondans etron eCW3 4 MG etron 2020 {tabl ed 4 MG ([facility] Disintegrat 4 MG 12:00: et_on [place] ing Oral 00 [facility]and _[facility]_to_ disso lve} Ondansetron Ondans .0 suspend Ondans etron eCW3 4 MG etron 2020 {tabl ed 4 MG ([facility] Disintegrat 4 MG 12:00: et_on [place] ing Oral 00 AM _the_ Health Tablet EST [facility]) e_and _allo w_to_ disso lve} Ondansetron Ondans .0 suspend Ondans etron eCW3 4 MG etron 2020 {tabl ed 4 MG ([facility] Disintegrat 4 MG 12:00: et_on [place] ing Oral 00 AM _the_ Health Tablet EST [facility]) e_and _allo w_to_ disso lve} Oseltamivir Oselta .0 suspend Oselta mivir eCW3 75 MG Oral mivir 2020 {caps ed Phosphate 75 ([facility] Capsule Phosph 12:00: ule_w MG [place] Oseltamivir ate 75 00 AM ith_f Heal th Phosphate MG EST ood} Care) 75 MG Oseltamivir Oselta .0 suspend Oselta mivir eCW3 75 MG Oral mivir 2020 {caps ed Phosphate 75 ([facility] Capsule Phosph 12:00: ule_w MG [place] Oseltamivir ate 75 00 AM ith_f Heal th Phosphate MG EST ood} Care) 75 MG Ondansetron Ondans .0 suspend Ondans etron eCW3 4 MG etron 2020 {tabl ed 4 MG ([facility] Disintegrat 4 MG 12:00: et_on [place] ing Oral 00 AM _the_ Health Tablet EST [facility]) e_and _allo w_to_ disso lve} Ondansetron Ondans .0 suspend Ondans etron eCW3 4 MG etron 2020 {tabl ed 4 MG ([facility] Disintegrat 4 MG 12:00: et_on [place] ing Oral 00 AM _the_ Health Tablet EST [facility]) e_and _allo w_to_ disso lve} Clotrimazol Clotri .0 active Clotrim azole eCW3 e 10 MG/ML mazole 2019 {appl 1 % ([facility] Topical 1 % 12:00: icati [place] Cream 00 AM on_to Health Clotrimazol EST _affe Care) e 1 % cted_ area} Clotrimazol Clotri 1.0 active Clotrim azole eCW3 e 10 MG/ML mazole 2020 {appl 1 % ([facility] Topical 1 % 12:00: icati [place] Cream 00 AM on_to Health Clotrimazol EST _affe Care) e 1 % cted_ area} benzonatate Benzon .0 active Benzona elizabeth eCW3 100 MG Oral atate 2020 {caps 100 mg ([facility] Capsule 100 mg 12:00: ule_a [place] Benzonatate 00 AM s_nee Health 100 mg EST ded} Care) Diclofenac Diclof 05/11/ active Diclofen ac eCW3 Sodium 0.01 enac 2020 Sodium 1 % ([facility] MG/MG Sodium 12:00: [place] Topical Gel 1 % 00 AM Health Diclofenac EST Care) Sodium 1 % FreeStyle FreeSt 05/11/ active FreeStyle eCW3 [place] yle 2020 [facility] Sensor ([facility] Sensor [facility] 12:00: System - [facility] System - Sensor 00 AM Health System EST Care) - Diclofenac Diclof 05/11/ active Diclofen ac eCW3 Sodium 0.01 enac 2020 Sodium 1 % ([facility] MG/MG Sodium 12:00: [place] Topical Gel 1 % 00 AM Health Diclofenac EST Care) Sodium 1 % FreeStyle FreeSt 05/11/ active FreeStyle eCW3 [place] yl 2020 [facility] Sensor ([facility] Sensor [facility] 12:00: System - [facility] System - Sensor 00 AM Health System EST Care) - Diclofenac Diclof 05/11/ active Diclofen ac eCW3 Sodium 0.01 enac 2020 Sodium 1 % ([facility] MG/MG Sodium 12:00: [place] Topical Gel 1 % 00 AM Health Diclofenac EST Care) Sodium 1 % FreeStyle FreeSt 05/11/ active FreeStyle eCW3 [place] 14 yle 2020 Claudia 14 Day ( [place] Claudia 12:00: [place] - Ri isela - 14 Day 00 AM Health [place] EST Care) - FreeStyle FreeSt 05/11/ active FreeStyle eCW3 [place] yle 2020 [facility] Sensor ([facility] Sensor [place] 12:00: System - [facility] System - Sensor 00 AM Health System EST Care) - FreeStyle FreeSt 05/11/ active FreeStyle eCW3 [place] 2019 [facility] Sensor ([facility] Sensor [place] 12:00: System - [facility] System - Sensor AM Health System EST Care) - FreeStyle FreeSt 05/11/ active FreeStyle eCW3 [place] 2019 [place] Sensor ([facility] Sensor [place] 12:00: System - [facility] System - Sensor 00 AM Health System EST Care) - FreeStyle FreeSt 05/11/ active FreeStyle eCW3 [place] 2019 [place] Sensor ([facility] Sensor [place] 12:00: System - [facility] System - Sensor AM Health System EST Care) - FreeStyle FreeSt 05/11/ active FreeStyle eCW3 [place] 14 2019 Claudia 14 Day ( [place] Claudia 12:00: [place] - Ri isela - Health [place] EST Care) - Diclofenac Diclof 05/11/ active Diclofen ac eCW3 Sodium 0.01 enac 2019 Sodium 1 % ([facility] MG/MG Sodium 12:00: [place] Topical Gel 1 % 00 AM Health Diclofenac EST Care) Sodium 1 % FreeStyle FreeSt 05/11/ active FreeStyle eCW3 [place] 14 2019 Claudia 14 Day ( [place] Claudia 12:00: [place] - Ri isela - AM Health [place] EST Care) - Diclofenac Diclof 05/11/ active Diclofen ac eCW3 Sodium 0.01 enac 2020 Sodium 1 % ([facility] MG/MG Sodium 12:00: [place] Topical Gel 1 % 00 AM Health Diclofenac EST Care) Sodium 1 % Diclofenac Diclof 05/11/ active Diclofen ac eCW3 Sodium 0.01 enac 2020 Sodium 1 % ([facility] MG/MG Sodium 12:00: [place] Topical Gel 1 % 00 AM Health Diclofenac EST Care) Sodium 1 % FreeStyle FreeSt 05/11/ active FreeStyle eCW3 [place] 14 2019 Claudia 14 Day ( [place] Claudia 12:00: [place] - Ri isela - AM Health [place] EST Care) - FreeStyle FreeSt 05/11/ active FreeStyle eCW3 [place] 14 2019 Claudia 14 Day ( ds [place] Claudia 12:00: [place] - Ri isela - AM Health [place] EST Care) - FreeStyle FreeSt 05/11/ active FreeStyle eCW3 [place] 2019 [facility] Sensor ([facility] Sensor [facility] 12:00: System - [facility] - Sensor Health System EST Care) - FreeStyle FreeSt 05/11/ active FreeStyle eCW3 [place] 14 2019 Claudia 14 Day ( [place] Claudia 12:00: [place] - Ri isela - AM Health [place] EST Care) - FreeStyle FreeSt 05/11/ active FreeStyle eCW3 [place] 14 2019 Claudia 14 Day ( [place] Claudia 12:00: [place] - Ri isela - AM Health [place] EST Care) - FreeStyle FreeSt 05/11/ active FreeStyle eCW3 Claudia 14 2019 Claudia Day ( [place] Claudia 12:00: [place] - Ri isela - AM Health [place] EST Care) - Diclofenac Diclof 05/11/ active Diclofen ac eCW3 Sodium 0.01 enac 2019 Sodium 1 % ([facility] MG/MG Sodium 12:00: [place] Topical Gel 1 % AM Health Diclofenac EST Care) Sodium 1 % FreeStyle FreeSt 05/11/ active FreeStyle eCW3 [place] 2019 [facility] Sensor ([facility] Sensor [place] 12:00: System - [facility] - Sensor Health System EST Care) - Diclofenac Diclof 05/11/ active Diclofen ac eCW3 Sodium 0.01 enac 2020 Sodium 1 % ([facility] MG/MG Sodium 12:00: [place] Topical Gel 1 % 00 AM Health Diclofenac EST Care) Sodium 1 % Diclofenac Diclof 05/11/ active Diclofen ac eCW3 Sodium 0.01 enac 2020 Sodium 1 % ([facility] MG/MG Sodium 12:00: [place] Topical Gel 1 % 00 AM Health Diclofenac EST Care) Sodium 1 % FreeStyle FreeSt 05/11/ active FreeStyle eCW3 [facility]ia 14 yl2019 Claudia 14 Day ( [place] Claudia 12:00: [place] - Ri isela - AM Health [place] EST Care) - FreeStyle FreeSt 05/11/ active FreeStyle eCW3 [facility] yl2019 [facility] Sensor ([facility] Sensor [facility] 12:00: System - [facility] - Sensor 00 AM Health System EST Care) - FreeStyle FreeSt 05/11/ active FreeStyle eCW3 [place] yl 2020 [place] Sensor ([facility] Sensor [place] 12:00: System - [facility] - Sensor AM Health System EST Care) - FreeStyle FreeSt 05/11/ active FreeStyle eCW3 [place] yl2019 [place] Sensor ([facility] Sensor [place] 12:00: System - [facility] - Sensor 00 AM Health System EST Care) - Diclofenac Diclof 05/11/ active Diclofen ac eCW3 Sodium 0.01 enac 2019 Sodium 1 % ([facility] MG/MG Sodium 12:00: [place] Topical Gel 1 % 00 AM Health Diclofenac EST Care) Sodium 1 % FreeStyle FreeSt 05/11/ active FreeStyle eCW3 [place] yl 2020 [facility] Sensor ([facility] Sensor [place] 12:00: System - [facility] - Sensor AM Health System EST [facility] - FreeStyle FreeSt 05/11/ active FreeStyle eCW3 Claudia 2019 Claudia Sensor ([place] Sensor [place] 12:00: [facility] - [facility]) - FreeStyle FreeSt 05/11/ active FreeStyle eCW3 Claudia 14 yl2019 Claudia 14 Day ( ds [place] Claudia 12:00: [place] - Ri isela - 14 AM [facility] [place] EST Care) - FreeStyle FreeSt 05/11/ active FreeStyle eCW3 Claudia 14 2019 Claudia 14 Day ( ds [place] Claudia 12:00: [place] - Ri isela - AM Health [place] EST Care) - Diclofenac Diclof 05/11/ active Diclofen ac eCW3 Sodium 0.01 enac 2019 Sodium 1 % (H udson MG/MG Sodium 12:00: [facility] Topical Gel 1 % 00 AM Health Diclofenac EST Care) Sodium 1 % FreeStyle FreeSt 05/11/ active FreeStyle eCW3 Claudia 14 yle 2020 Claudia 14 Day ( ds [place] Claudia 12:00: [place] - Ri isela - 14 Day 00 AM Health [place] EST Care) - FreeStyle FreeSt 05/11/ active FreeStyle eCW3 Claudia 14 2019 Claudia 14 Day ( [place] Claudia 12:00: [place] - Ri isela - Health [place] EST Care) - Diclofenac Diclof 05/11/ active Diclofen ac eCW3 Sodium 0.01 enac 2020 Sodium 1 % (H udson MG/MG Sodium 12:00: [facility] Topical Gel 1 % AM Health Diclofenac EST Care) Sodium 1 % FreeStyle FreeSt 05/11/ active FreeStyle eCW3 Claudia 14 yl2019 Claudia 14 Day ( [place] Claudia 12:00: [place] - Ri isela - Health [place] EST Care) - Diclofenac Diclof 05/11/ active Diclofen ac eCW3 Sodium 0.01 enac 2020 Sodium 1 % (H udson MG/MG Sodium 12:00: [facility] Topical Gel 1 % Health Diclofenac EST Care) Sodium 1 % FreeStyle FreeSt 05/11/ active FreeStyle eCW3 Claudia yl 2020 Claudia Sensor ([facility] [facility] Sensor Claudia 12:00: System - [facility] System - Sensor Health System EST Care) - FreeStyle FreeSt 05/11/ active FreeStyle eCW3 Claudia 2019 Claudia Sensor ([place] [facility] Claudia 12:00: System - [facility] System - Sensor AM Health System EST Care) - Diclofenac Diclof 05/11/ active Diclofen ac eCW3 Sodium 0.01 enac 2020 Sodium 1 % ([facility] ud[facility] MG/MG Sodium 12:00: [facility] Topical Gel 1 % 00 AM Health Diclofenac EST Care) Sodium 1 % FreeStyle FreeSt 05/11/ active FreeStyle eCW3 Claudia 14 2019 Claudia ( [place] Claudia 12:00: [place] - Ri isela Health [place] EST Care) - Diclofenac Diclof 05/11/ active Diclofen ac eCW3 Sodium 0.01 enac 2020 Sodium 1 % (H udson MG/MG Sodium 12:00: [facility] Topical Gel 1 % 00 AM Health Diclofenac EST Care) Sodium 1 % Diclofenac Diclof 05/11/ active Diclofen ac eCW3 Sodium 0.01 enac 2020 Sodium 1 % ([facility] MG/MG Sodium 12:00: [facility] Topical Gel 1 % 00 AM Health Diclofenac EST Care) Sodium 1 % FreeStyle FreeSt 05/11/ active FreeStyle eCW3 Claudia 14 2019 Claudia 14 Day ( [place] Claudia 12:00: [place] - Ri isela - AM Health [place] EST Care) - FreeStyle FreeSt 05/11/ active FreeStyle eCW3 Claudia 14 2019 Claudia 14 Day ( [place] Claudia 12:00: [place] - Ri isela - Health [place] EST Care) - FreeStyle FreeSt 05/11/ active FreeStyle eCW3 Claudia 14 2019 Claudia 14 Day ( [place] Claudia 12:00: [place] - Ri isela - AM Health [place] EST Care) - FreeStyle FreeSt 05/11/ active FreeStyle eCW3 Claudia 2019 Claudia Sensor ([facility]ensor Claudia 12:00: System - [facility] System - Sensor AM Health System EST Care) - FreeStyle FreeSt 05/11/ active FreeStyle eCW3 Claudia 14 2019 Claudia 14 Day ( [place] Claudia 12:00: [place] - Ri isela - AM Health [place] EST Care) - FreeStyle FreeSt 05/11/ active FreeStyle eCW3 Claudia 14 2019 Claudia 14 Day ( [place] Claudia 12:00: [place] - Ri isela - AM Health [place] EST Care) - Diclofenac Diclof 05/11/ active Diclofen ac eCW3 Sodium 0.01 2019 Sodium 1 % (H ud[facility] MG/MG Sodium 12:00: [facility] Topical Gel 1 % 00 AM Health Diclofenac EST Care) Sodium 1 % Diclofenac Diclof 05/11/ active Diclofen ac eCW3 Sodium 0.01 2019 Sodium 1 % (H ud[facility] MG/MG Sodium 12:00: [facility] Topical Gel 1 % 00 AM Health Diclofenac EST Care) Sodium 1 % FreeStyle FreeSt 05/11/ active FreeStyle eCW3 Claudia 14 2019 Claudia 14 Day ( [place] Claudia 12:00: [place] - Ri isela - AM Health [place] EST Care) - FreeStyle FreeSt 05/11/ active FreeStyle eCW3 Claudia yl 2020 Cluadia Sensor ([facility]ensor Claudia 12:00: System - [facility] System - Sensor 00 AM Health System EST Care) - FreeStyle FreeSt 05/11/ active FreeStyle eCW3 Claudia yle 2020 Claudia Sensor ([facility] [facility] Claud[facility] 12:00: System - [facility] System - Sensor AM Health System EST Care) - FreeStyle FreeSt 05/11/ active FreeStyle eCW3 Claudia yle 2020 Claudia Sensor ([facility] [facility] 12:00: System - [facility] System - Sensor AM Health System EST Care) - Diclofenac Diclof 05/11/ active Diclofen ac eCW3 Sodium 0.01 enac 2020 Sodium 1 % ([facility] ud[facility] MG/MG Sodium 12:00: [facility] Topical Gel 1 % AM Health Diclofenac EST Care) Sodium 1 % FreeStyle FreeSt 05/11/ active FreeStyle eCW3 Claudia 14 yle 2020 Claudia 14 Day ( ds [place] Claudia 12:00: [place] - Ri isela - 14 AM Health [place] EST Care) - Diclofenac Diclof 05/11/ active Diclofen ac eCW3 Sodium 0.01 enac 2019 Sodium 1 % (H ud[facility] MG/MG Sodium 12:00: [facility] Topical Gel 1 % AM Health Diclofenac EST Care) Sodium 1 % FreeStyle FreeSt 05/11/ active FreeStyle eCW3 Claudia yle 2020 Claudia Sensor ([facility] [facility] Claud[facility] 12:00: System - [facility] System - Sensor Health System EST Care) - FreeStyle FreeSt 05/11/ active FreeStyle eCW3 Claudia yle 2020 Claudia Sensor ([facility] [facility]ensor Claud[facility] 12:00: System - [facility] System - Sensor AM Health System EST Care) - FreeStyle FreeSt 05/11/ active FreeStyle eCW3 Claudia 14 yle 2020 Claudia 14 Day ( ds [place] Claudia 12:00: [place] - Ri isela - 14 AM Health [place] EST Care) - FreeStyle FreeSt 05/11/ active FreeStyle eCW3 Cluadia yle 2020 Claudia Sensor ([facility] Claudia 12:00: System - [facility] System - Sensor AM Health System EST Care) - FreeStyle FreeSt 05/11/ active FreeStyle eCW3 Claudia yle 2020 Claudia Sensor ([facility] [facility] 12:00: System - [facility] System - Sensor 00 AM Health System EST Care) - FreeStyle FreeSt 05/11/ active FreeStyle eCW3 Claudia 14 yle 2020 Claudia 14 Day ( [place] Claudia 12:00: [place] - Ri isela - AM Health [place] EST Care) - Diclofenac Diclof 05/11/ active Diclofen ac eCW3 Sodium 0.01 enac 2020 Sodium 1 % (H udson MG/MG Sodium 12:00: [facility] Topical Gel 1 % Health Diclofenac EST Care) Sodium 1 % FreeStyle FreeSt 05/11/ active FreeStyle eCW3 Claudia yl 2020 Claudia Sensor ([facility] Claudia 12:00: System - [facility] System - Sensor Health System EST Care) - FreeStyle FreeSt 05/11/ active FreeStyle eCW3 Claudia 14 yle 2020 Claudia 14 Day ( [place] Claudia 12:00: [place] - Ri isela - AM Health [place] EST Care) - FreeStyle FreeSt 05/11/ active FreeStyle eCW3 Claudia yl 2020 Claudia Sensor ([facility] Claudia 12:00: System - [facility] System - Sensor Health System EST Care) - Diclofenac Diclof 05/11/ active Diclofen ac eCW3 Sodium 0.01 enac 2020 Sodium 1 % (H ud[facility] MG/MG Sodium 12:00: [facility] Topical Gel 1 % Health Diclofenac EST Care) Sodium 1 % FreeStyle FreeSt 05/11/ active FreeStyle eCW3 Claudia yl 2020 Claudia Sensor ([facility] Claudia 12:00: System - [facility] System - Sensor AM Health System EST Care) - FreeStyle FreeSt 05/11/ active FreeStyle eCW3 Claudia 14 yle 2020 Claudia 14 Day ( [place] Claudia 12:00: [place] - Ri isela - AM Health [place] EST Care) - Diclofenac Diclof 05/11/ active Diclofen ac eCW3 Sodium 0.01 enac 2020 Sodium 1 % (H ud[facility] MG/MG Sodium 12:00: [facility] Topical Gel 1 % AM Health Diclofenac EST Care) Sodium 1 % FreeStyle FreeSt 05/11/ active FreeStyle eCW3 Claudia 14 yl 2020 Claudia 14 Day ( [place] Claudia 12:00: [place] - Ri isela - 14 Health [place] EST Care) - Diclofenac Diclof 05/11/ active Diclofen ac eCW3 Sodium 0.01 enac 2020 Sodium 1 % (H ud[facility] MG/MG Sodium 12:00: [facility] Topical Gel 1 % 00 AM Health Diclofenac EST Care) Sodium 1 % Diclofenac Diclof 05/11/ active Diclofen ac eCW3 Sodium 0.01 enac 2020 Sodium 1 % (H ud[facility] MG/MG Sodium 12:00: [facility] Topical Gel 1 % 00 AM Health Diclofenac EST Care) Sodium 1 % FreeStyle FreeSt 05/11/ active FreeStyle eCW3 Claudia yle 2020 Claudia Sensor ([facility]ensor Claudia 12:00: System - [facility] System - Sensor 00 AM Health System EST Care) - Diclofenac Diclof 05/11/ active Diclofen ac eCW3 Sodium 0.01 enac 2020 Sodium 1 % (H udson MG/MG Sodium 12:00: [facility] Topical Gel 1 % 00 AM Health Diclofenac EST Care) Sodium 1 % Diclofenac Diclof 05/11/ active Diclofen ac eCW3 Sodium 0.01 enac 2020 Sodium 1 % (H ud[facility] MG/MG Sodium 12:00: [facility] Topical Gel 1 % 00 AM Health Diclofenac EST Care) Sodium 1 % FreeStyle FreeSt 05/11/ active FreeStyle eCW3 Claudia 14 yle 2020 Claudia 14 Day ( [place] Claudia 12:00: [place] - Ri isela - 14 Health [place] EST Care) - FreeStyle FreeSt 05/11/ active FreeStyle eCW3 Claudia yle 2020 Claudia Sensor ([facility] Sensor Claudia 12:00: System - [facility] System - Sensor AM Health System EST Care) - Diclofenac Diclof 05/11/ active Diclofen ac eCW3 Sodium 0.01 enac 2020 Sodium 1 % (H udson MG/MG Sodium 12:00: [facility] Topical Gel 1 % 00 AM Health Diclofenac EST Care) Sodium 1 % Basaglar Basagl 02/21/ active Basaglar e CW3 KwikPen 100 2018 KwikPen 100 ( [place] UNIT/ML KwikPe 12:00: UNIT/ML River n 100 00 AM Health UNIT/M EST Care) L Basaglar Basagl 02/21/ active Basaglar e CW3 KwikPen 100 2018 KwikPen 100 ( [place] UNIT/ML K[facility]Pe 12:00: UNIT/ML River n 100 00 AM Health UNIT/M EST Care) L Basaglar Basagl 02/21/ active Basaglar e CW3 KwikPen 100 ar 2018 KwikPen 100 ( [place] UNIT/ML KwikPe 12:00: UNIT/ML River n 100 00 AM Health UNIT/M EST Care) L Basaglar Basagl 02/21/ active Basaglar e CW3 KwikPen 100 ar 2018 KwikPen 100 ( [place] UNIT/ML [facility]Pe 12:00: UNIT/ML River n 100 00 AM Health UNIT/M EST Care) L Basaglar Basagl 02/21/ active Basaglar e CW3 KwikPen 100 ar 2018 KwikPen 100 ( [place] UNIT/ML K[facility]Pe 12:00: UNIT/ML [facility] n 100 00 AM Health UNIT/M EST Care) L Basaglar Basagl 02/21/ active Basaglar e CW3 KwikPen 100 2018 KwikPen 100 ( [place] UNIT/ML K[facility]Pe 12:00: UNIT/ML River n 100 00 AM Health UNIT/M EST Care) L Basaglar Basagl 02/21/ active Basaglar e CW3 KwikPen 100 ar 2018 KwikPen 100 ( [place] UNIT/ML [facility] 12:00: UNIT/ML River n 100 00 AM Health UNIT/M EST Care) L Basaglar Basagl 02/21/ active Basaglar e CW3 KwikPen 100 2018 KwikPen 100 ( [place] UNIT/ML [facility]Pe 12:00: UNIT/ML River n 100 00 AM Health UNIT/M EST Care) L Basaglar Basagl 02/21/ active Basaglar e CW3 KwikPen 100 ar 2018 KwikPen 100 ( [place] UNIT/ML [facility] 12:00: UNIT/ML [facility] n 100 00 AM Health UNIT/M EST Care) L Basaglar Basagl 02/21/ active Basaglar e CW3 KwikPen 100 2018 KwikPen 100 ( [place] UNIT/ML [facility]Pe 12:00: UNIT/ML [facility] n 100 00 AM Health UNIT/M EST Care) L Basaglar Basagl 02/21/ active Basaglar e CW3 KwikPen 100 2018 KwikPen 100 ( [place] UNIT/ML K[facility] 12:00: UNIT/ML [facility] n 100 00 AM Health UNIT/M EST Care) L Basaglar Basagl 02/21/ active Basaglar e CW3 KwikPen 100 2018 KwikPen 100 ( [place] UNIT/ML KwikPe 12:00: UNIT/ML [facility] n 100 00 AM Health UNIT/M EST Care) L Basaglar Basagl 02/21/ active Basaglar e CW3 KwikPen 100 2018 KwikPen 100 ( [place] UNIT/ML K[facility]Pe 12:00: UNIT/ML [facility] n 100 00 AM Health UNIT/M EST Care) L Basaglar Basagl 02/21/ active Basaglar e CW3 KwikPen 100 2018 KwikPen 100 ( [place] UNIT/ML K[facility] 12:00: UNIT/ML River n 100 00 AM Health UNIT/M EST Care) L Basaglar Basagl 02/21/ active Basaglar e CW3 KwikPen 100 2018 KwikPen 100 ( [place] UNIT/ML KwikPe 12:00: UNIT/ML [facility] n 100 00 AM Health UNIT/M EST Care) L Basaglar Basagl 02/21/ active Basaglar e CW3 KwikPen 100 2018 KwikPen 100 ( [place] UNIT/ML K[facility]Pe 12:00: UNIT/ML [facility] n 100 00 AM Health UNIT/M EST Care) L Basaglar Basagl 02/21/ active Basaglar e CW3 KwikPen 100 2018 KwikPen 100 ( [place] UNIT/ML KwikPe 12:00: UNIT/ML [facility] n 100 00 AM Health UNIT/M EST Care) L Basaglar Basagl 02/21/ active Basaglar e CW3 KwikPen 100 2018 KwikPen 100 ( [place] UNIT/ML KwikPe 12:00: UNIT/ML [facility] n 100 00 AM Health UNIT/M EST Care) L Basaglar Basagl 02/21/ active Basaglar e CW3 KwikPen 100 2018 KwikPen 100 ( [place] UNIT/ML K[facility]Pe 12:00: UNIT/ML [facility] n 100 00 AM Health UNIT/M EST Care) L Basaglar Basagl 02/21/ active Basaglar e CW3 KwikPen 100 2018 KwikPen 100 ( [place] UNIT/ML [facility] 12:00: UNIT/ML River n 100 00 AM Health UNIT/M EST Care) L Basaglvalentino Basagl 02/21/ active Basaglar e CW3 KwikPen 100 ar 2018 KwikPen 100 ( [place] UNIT/ML K[facility]Pe 12:00: UNIT/ML River n 100 00 AM Health UNIT/M EST Care) L Basaglar Basagl 02/21/ active Basaglar e CW3 KwikPen 100 ar 2018 KwikPen 100 ( [place] UNIT/ML K[facility]Pe 12:00: UNIT/ML River n 100 00 AM Health UNIT/M EST Care) L Basaglar Basagl 02/21/ active Basaglar e CW3 KwikPen 100 ar 2018 KwikPen 100 ( [place] UNIT/ML K[facility]Pe 12:00: UNIT/ML River n 100 00 AM Health UNIT/M EST Care) L Devonaglvalentino Basagl 02/21/ active Basaglar e CW3 KwikPen 100 ar 2018 KwikPen 100 ( [place] UNIT/ML KwikPe 12:00: UNIT/ML River n 100 00 AM Health UNIT/M EST Care) L Basaglvalentino Basagl 02/21/ active Basaglar e CW3 KwikPen 100 ar 2018 KwikPen 100 ( [place] UNIT/ML KwikPe 12:00: UNIT/ML River n 100 00 AM Health UNIT/M EST Care) L Basaglvalentino Basagl 02/21/ active Basaglar e CW3 KwikPen 100 ar 2018 KwikPen 100 ( [place] UNIT/ML KwikPe 12:00: UNIT/ML River n 100 00 AM Health UNIT/M EST Care) L Basaglar Basagl 02/21/ active Basaglar e CW3 KwikPen 100 ar 2018 KwikPen 100 ( [place] UNIT/ML K[facility]Pe 12:00: UNIT/ML [facility] n 100 00 AM Health UNIT/M EST Care) L Basaglar Basagl 02/21/ active Basaglar e CW3 KwikPen 100 ar 2018 KwikPen 100 ( [place] UNIT/ML KwikPe 12:00: UNIT/ML [facility] n 100 00 AM Health UNIT/M EST Care) L Chantix Chanti 12/29/ suspend Chantix eC W3 Starting x 2019 ed Starting ([place] Month Chris Starti 12:00: Month Chris R iver 0.5 MG X 11 ng 00 AM 0.5 MG X 11 Health & 1 MG X 42 Month EDT & 1 MG X 42 Care) Chris 0.5 MG X 11 & 1 MG X 42 Chantix Chanti 12/29/ suspend Chantix eC W3 Starting 2018 ed Starting ([facility] Chris Starti 12:00: Month Chris R iver 0.5 MG X 11 ng 00 AM 0.5 MG X 11 Health & 1 MG X 42 Month EDT & 1 MG X 42 Care) Chris 0.5 MG X 11 & 1 MG X 42 Chantix Chanti 12/29/ active Chantix eCW 3 Starting 2018 Starting ([facility] Chris Starti 12:00: Month Chris R iver 0.5 MG X 11 ng 00 AM 0.5 MG X 11 Health & 1 MG X 42 Month EDT & 1 MG X 42 Care) Chris 0.5 MG X 11 & 1 MG X 42 Chantix Chanti 12/29/ suspend Chantix eC W3 Starting 2018 ed Starting ([facility] Chris Starti 12:00: Month Chris R iver 0.5 MG X 11 ng 00 AM 0.5 MG X 11 Health & 1 MG X 42 Month EDT & 1 MG X 42 Care) Chris 0.5 MG X 11 & 1 MG X 42 Chantix Chanti 12/29/ suspend Chantix eC W3 Starting 2018 ed Starting ([facility] Chris Starti 12:00: Month Chris R iver 0.5 MG X 11 ng 00 AM 0.5 MG X 11 Health & 1 MG X 42 Month EDT & 1 MG X 42 Care) Chris 0.5 MG X 11 & 1 MG X 42 Chantix Chanti 12/29/ suspend Chantix eC W3 Starting 2018 ed Starting ([facility] Chris Starti 12:00: Month Chris R iver 0.5 MG X 11 ng 00 AM 0.5 MG X 11 Health & 1 MG X 42 Month EDT & 1 MG X 42 Care) Chris 0.5 MG X 11 & 1 MG X 42 Chantix Chanti 12/29/ suspend Chantix eC W3 Starting 2018 ed Starting ([facility] Chris Starti 12:00: Month Chris R iver 0.5 MG X 11 ng 00 AM 0.5 MG X 11 Health & 1 MG X 42 Month EDT & 1 MG X 42 Care) Chris 0.5 MG X 11 & 1 MG X 42 Chantix Chanti 12/29/ suspend Chantix eC W3 Starting 2018 ed Starting ([facility] Chris Starti 12:00: Month Chris R iver 0.5 MG X 11 ng 00 AM 0.5 MG X 11 Health & 1 MG X 42 Month EDT & 1 MG X 42 Care) Crhis 0.5 MG X 11 & 1 MG X 42 Chantix Chanti 12/29/ suspend Chantix eC W3 Starting 2018 ed Starting ([facility] Chris Starti 12:00: Month Chris R iver 0.5 MG X 11 ng 00 AM 0.5 MG X 11 Health & 1 MG X 42 Month EDT & 1 MG X 42 Care) Chris 0.5 MG X 11 & 1 MG X 42 Chantix Chanti 12/29/ suspend Chantix eC W3 Starting 2018 ed Starting ([facility] Chris Starti 12:00: Month Chris R iver 0.5 MG X 11 ng 00 AM 0.5 MG X 11 Health & 1 MG X 42 Month EDT & 1 MG X 42 Care) Chris 0.5 MG X 11 & 1 MG X 42 Chantix Chanti 12/29/ suspend Chantix eC W3 Starting 2018 ed Starting ([facility] Chris Starti 12:00: Month Chris R iver 0.5 MG X 11 ng 00 AM 0.5 MG X 11 Health & 1 MG X 42 Month EDT & 1 MG X 42 Care) Chris 0.5 MG X 11 & 1 MG X 42 Chantix Chanti 12/29/ suspend Chantix eC W3 Starting 2018 ed Starting ([facility] Chris Starti 12:00: Month Chris R iver 0.5 MG X 11 ng 00 AM 0.5 MG X 11 Health & 1 MG X 42 Month EDT & 1 MG X 42 Care) Chris 0.5 MG X 11 & 1 MG X 42 Chantix Chanti 12/29/ suspend Chantix eC W3 Starting 2018 ed Starting ([facility] Chris Starti 12:00: Month Chris R iver 0.5 MG X 11 ng 00 AM 0.5 MG X 11 Health & 1 MG X 42 Month EDT & 1 MG X 42 Care) Chris 0.5 MG X 11 & 1 MG X 42 Chantix Chanti 12/29/ suspend Chantix eC W3 Starting 2018 ed Starting ([facility] Chris Starti 12:00: Month Chris R iver 0.5 MG X 11 ng 00 AM 0.5 MG X 11 Health & 1 MG X 42 Month EDT & 1 MG X 42 Care) Chris 0.5 MG X 11 & 1 MG X 42 Chantix Chanti 12/29/ suspend Chantix eC W3 Starting 2018 ed Starting ([facility] Chris Starti 12:00: Month Chris R iver 0.5 MG X 11 ng 00 AM 0.5 MG X 11 Health & 1 MG X 42 Month EDT & 1 MG X 42 Care) Chris 0.5 MG X 11 & 1 MG X 42 Chantix Chanti 12/29/ suspend Chantix eC W3 Starting 2018 ed Starting ([facility] Starti 12:00: Month Chris R iver 0.5 MG X 11 ng 00 AM 0.5 MG X 11 Health & 1 MG X 42 Month EDT & 1 MG X 42 Care) Chris 0.5 MG X 11 & 1 MG X 42 Chantix Chanti 12/29/ suspend Chantix eC W3 Starting 2018 ed Starting ([facility] Starti 12:00: Month Chris R iver 0.5 MG X 11 ng 00 AM 0.5 MG X 11 Health & 1 MG X 42 Month EDT & 1 MG X 42 Care) Chris 0.5 MG X 11 & 1 MG X 42 Chantix Chanti 12/29/ suspend Chantix eC W3 Starting 2018 ed Starting ([facility] Chris Starti 12:00: Month Chris R iver 0.5 MG X 11 ng 00 AM 0.5 MG X 11 Health & 1 MG X 42 Month EDT & 1 MG X 42 Care) Chris 0.5 MG X 11 & 1 MG X 42 Chantix Chanti 12/29/ suspend Chantix eC W3 Starting 2018 ed Starting ([facility] Chris Starti 12:00: Month Chris R iver 0.5 MG X 11 ng 00 AM 0.5 MG X 11 Health & 1 MG X 42 Month EDT & 1 MG X 42 Care) Chris 0.5 MG X 11 & 1 MG X 42 Chantix Chanti 12/29/ suspend Chantix eC W3 Starting 2018 ed Starting ([facility] Chris Starti 12:00: Month Chris R iver 0.5 MG X 11 ng 00 AM 0.5 MG X 11 Health & 1 MG X 42 Month EDT & 1 MG X 42 Care) Chris 0.5 MG X 11 & 1 MG X 42 Chantix Chanti 12/29/ suspend Chantix eC W3 Starting 2018 ed Starting ([facility] Chris Starti 12:00: Month Chris R iver 0.5 MG X 11 ng 00 AM 0.5 MG X 11 Health & 1 MG X 42 Month EDT & 1 MG X 42 Care) Chris 0.5 MG X 11 & 1 MG X 42 Chantix Chanti 12/29/ suspend Chantix eC W3 Starting 2018 ed Starting ([facility] Chris Starti 12:00: Month Chris R iver 0.5 MG X 11 ng 00 AM 0.5 MG X 11 Health & 1 MG X 42 Month EDT & 1 MG X 42 Care) Chris 0.5 MG X 11 & 1 MG X 42 Chantix Chanti 12/29/ suspend Chantix eC W3 Starting 2018 ed Starting ([facility] Chris Starti 12:00: Month Chris R iver 0.5 MG X 11 ng 00 AM 0.5 MG X 11 Health & 1 MG X 42 Month EDT & 1 MG X 42 Care) Chris 0.5 MG X 11 & 1 MG X 42 Chantix Chanti 12/29/ suspend Chantix eC W3 Starting 2018 ed Starting ([facility] Chris Starti 12:00: Month Chris R iver 0.5 MG X 11 ng 00 AM 0.5 MG X 11 Health & 1 MG X 42 Month EDT & 1 MG X 42 Care) Chris 0.5 MG X 11 & 1 MG X 42 Chantix Chanti 12/29/ suspend Chantix eC W3 Starting 2018 ed Starting ([facility] Chris Starti 12:00: Month Chris R iver 0.5 MG X 11 ng 00 AM 0.5 MG X 11 Health & 1 MG X 42 Month EDT & 1 MG X 42 Care) Chris 0.5 MG X 11 & 1 MG X 42 Chantix Chanti 09/13/ suspend Chantix eC W3 Starting x 2018 ed Starting ([facility] Chris Starti 12:00: Month Chris R iver 0.5 MG X 11 ng 00 AM 0.5 MG X 11 Health & 1 MG X 42 Month EDT & 1 MG X 42 Care) Chris 0.5 MG X 11 & 1 MG X 42 Chantix Chanti 12/29/ suspend Chantix eC W3 Starting x 2018 ed Starting ([facility] Chris Starti 12:00: Month Chris R iver 0.5 MG X 11 ng 00 AM 0.5 MG X 11 Health & 1 MG X 42 Month EDT & 1 MG X 42 Care) Chris 0.5 MG X 11 & 1 MG X 42 Chantix Chanti 12/29/ suspend Chantix eC W3 Starting x 2018 ed Starting ([facility] Chris Starti 12:00: Month Chris R iver 0.5 MG X 11 ng 00 AM 0.5 MG X 11 Health & 1 MG X 42 Month EDT & 1 MG X 42 Care) Chris 0.5 MG X 11 & 1 MG X 42 Chantix Chanti 12/29/ suspend Chantix eC W3 Starting x 2018 ed Starting ([facility] Chris Starti 12:00: Month Chris R iver 0.5 MG X 11 ng 00 AM 0.5 MG X 11 Health & 1 MG X 42 Month EDT & 1 MG X 42 Care) Chris 0.5 MG X 11 & 1 MG X 42 Chantix Chanti 12/29/ 1.0 active Chantix eCW 3 Continuing x 2018 {tabl Continuing ([facility] Chris 1 Contin 12:00: et} Month Chris 1 [place] MG uing 00 AM MG Health Month EDT Care) Chris 1 MG Walker - Walker 11/06/ suspend Walker - eCW3 - 2018 ed ([facility] 12:00: [facility] 00 AM Health EDT Care) Blood Blood 11/06/ active Blood eCW3 Pressure Pressu 2019 Pressure ([facility] on Monitor - re 12:00: Monitor - Alia er Monito 00 AM Health r - EDT Care) Walker - Walker 11/06/ suspend Walker - eCW3 - 2018 ed ([facility] 12:00: [facility] 00 AM Health EDT Care) Walker - Walker 11/06/ active Walker - e CW3 - 2018 ([place] 12:00: [facility] 00 AM Health EDT Care) Walker - Walker 11/06/ suspend Walker - eCW3 - 2019 ed ([facility] 12:00: [facility] 00 AM Health EDT Care) Walker - Walker 11/06/ suspend Walker - eCW3 - 2019 ed ([place] 12:00: [facility] 00 AM Health EDT Care) Walker - Walker 11/06/ suspend Walker - eCW3 - 2019 ed ([place] 12:00: [facility] 00 AM Health EDT Care) Walker - Walker 11/06/ suspend Walker - eCW3 - 2019 ed ([place] 12:00: [facility] 00 AM Health EDT Care) Walker - Walker 11/06/ suspend Walker - eCW3 - 2019 ed ([place] 12:00: [facility] 00 AM Health EDT Care) Walker - Walker 11/06/ suspend Walker - eCW3 - 2019 ed ([place] 12:00: [facility] 00 AM Health EDT Care) Walker - Walker 11/06/ suspend Walker - eCW3 - 2019 ed ([place] 12:00: [facility] 00 AM Health EDT Care) Walker - Walker 11/06/ suspend Walker - eCW3 - 2019 ed ([place] 12:00: [facility] 00 AM Health EDT Care) Walker - Walker 11/06/ suspend Walker - eCW3 - 2019 ed ([place] 12:00: [facility] 00 AM Health EDT Care) Walker - Walker 11/06/ suspend Walker - eCW3 - 2019 ed ([place] 12:00: [facility] 00 AM Health EDT Care) Walker - Walker 11/06/ suspend Walker - eCW3 - 2019 ed ([place] 12:00: [facility] 00 AM Health EDT Care) Walker - Walker 11/06/ suspend Walker - eCW3 - 2019 ed ([place] 12:00: [facility] 00 AM Health EDT Care) Walker - Walker 11/06/ suspend Walker - eCW3 - 2019 ed ([facility] 12:00: [facility] 00 AM Health EDT Care) Walker - Walker 11/06/ suspend Walker - eCW3 - 2019 ed ([place] 12:00: [facility] 00 AM Health EDT Care) Walker - Walker 11/06/ suspend Walker - eCW3 - 2019 ed ([facility] 12:00: [facility] 00 AM Health EDT Care) Walker - Walker 11/06/ suspend Walker - eCW3 - 2019 ed ([place] 12:00: [facility] 00 AM Health EDT Care) Walker - Walker 11/06/ suspend Walker - eCW3 - 2019 ed ([facility] 12:00: [facility] 00 AM Health EDT Care) Walker - Walker 22/ suspend Walker - eCW3 - 2019 ed ([place] 12:00: [facility] 00 AM Health EDT Care) Walker - Walker /22/ suspend Walker - eCW3 - 2019 ed ([place] 12:00: [place] 00 AM Health EDT Care) Walker - Walker 11/06/ suspend Walker - eCW3 - 2019 ed ([place] 12:00: [place] 00 AM Health EDT Care) Walker - Walker 11/06/ suspend Walker - eCW3 - 2019 ed ([place] 12:00: [place] 00 AM Health EDT Care) Walker - Walker 11/06/ suspend Walker - eCW3 - 2019 ed ([place] 12:00: [place] 00 AM Health EDT Care) Walker - Walker 11/06/ suspend Walker - eCW3 - 2019 ed ([facility] 12:00: [place] 00 AM Health EDT Care) Walker - Walker 11/06/ suspend Walker - eCW3 - 2019 ed ([facility] 12:00: [place] 00 AM Health EDT Care) Walker - Walker 11/06/ suspend Walker - eCW3 - 2019 ed ([facility] 12:00: [place] 00 AM Health EDT Care) Walker - Walker 11/06/ suspend Walker - eCW3 - 2019 ed ([facility] 12:00: [facility] 00 AM Health EDT Care) Capsaicin Capsai 1.0 active Capsaicin eCW3 0.25 MG/ML sam 2019 {appl 0.025 % ([facility] Topical 0.025 12:00: icati [place] Cream % 00 AM on_to Health Capsaicin EDT _affe Care) 0.025 % cted_ area_ as_ne eded} Capsaicin Capsai 1.0 active Capsaicin eCW3 0.25 MG/ML sam 2019 {appl 0.025 % ([facility] Topical 0.025 12:00: icati [place] Cream % 00 AM on_to Health Capsaicin EDT _affe Care) 0.025 % cted_ area_ as_ne eded} Capsaicin Capsai 06/27/ 1.0 active Capsaicin eCW3 0.25 MG/ML sam 2019 {appl 0.025 % ([facility] Topical 0.025 12:00: icati [place] Cream % 00 AM on_to Health Capsaicin EDT _affe Care) 0.025 % cted_ area_ as_ne eded} Capsaicin Capsai 1.0 active Capsaicin eCW3 0.25 MG/ML sam 2019 {appl 0.025 % ([facility] Topical 0.025 12:00: icati [place] Cream % 00 AM on_to Health Capsaicin EDT _affe Care) 0.025 % cted_ area_ as_ne eded} Capsaicin Capsai 1.0 active Capsaicin eCW3 0.25 MG/ML sam 2019 {appl 0.025 % ([facility] Topical 0.025 12:00: icati [place] Cream % 00 AM on_to Health Capsaicin EDT _affe Care) 0.025 % cted_ area_ as_ne eded} Capsaicin Capsai .0 active Capsaicin eCW3 0.25 MG/ML sam 2019 {appl 0.025 % ([facility] Topical 0.025 12:00: [facility] [place] Cream % 00 AM on_to Health Capsaicin EDT _affe Care) 0.025 % cted_ area_ as_ne eded} Capsaicin Capsai .0 active Capsaicin eCW3 0.25 MG/ML sam 2019 {appl 0.025 % ([facility] Topical 0.025 12:00: icati [place] Cream % 00 AM on_to Health Capsaicin EDT _affe Care) 0.025 % cted_ area_ as_ne eded} Capsaicin Capsai 1.0 active Capsaicin eCW3 0.25 MG/ML sam 2019 {appl 0.025 % ([facility] Topical 0.025 12:00: ic[facility] [place] Cream % 00 AM on_to Health Capsaicin EDT _affe Care) 0.025 % cted_ area_ as_ne eded} Capsaicin Capsai 1.0 active Capsaicin eCW3 0.25 MG/ML sam 2019 {appl 0.025 % ([facility] Topical 0.025 12:00: [facility] [place] Cream % 00 AM on_to Health Capsaicin EDT _affe Care) 0.025 % cted_ area_ as_ne eded} Capsaicin Capsai 1.0 active Capsaicin eCW3 0.25 MG/ML sam 2019 {appl 0.025 % ([facility] Topical 0.025 12:00: ic[facility] [place] Cream % 00 AM on_to Health Capsaicin EDT _affe Care) 0.025 % cted_ area_ as_ne eded} Capsaicin Capsai 1.0 active Capsaicin eCW3 0.25 MG/ML sam 2019 {appl 0.025 % ([facility] Topical 0.025 12:00: icati [place] Cream % 00 AM on_to Health Capsaicin EDT _affe Care) 0.025 % cted_ area_ as_ne eded} Capsaicin Capsai 1.0 active Capsaicin eCW3 0.25 MG/ML sam 2019 {appl 0.025 % ([facility] Topical 0.025 12:00: ic[facility] [place] Cream % 00 AM on_to Health Capsaicin EDT _affe Care) 0.025 % cted_ area_ as_ne eded} Capsaicin Capsai 1.0 active Capsaicin eCW3 0.25 MG/ML sam 2019 {appl 0.025 % ([facility] Topical 0.025 12:00: [facility] [place] Cream % 00 AM on_to Health Capsaicin EDT _affe Care) 0.025 % cted_ area_ as_ne eded} Capsaicin Capsai 1.0 active Capsaicin eCW3 0.25 MG/ML sam 2019 {appl 0.025 % ([facility] Topical 0.025 12:00: ic[facility] [place] Cream % 00 AM on_to Health Capsaicin EDT _affe Care) 0.025 % cted_ area_ as_ne eded} Capsaicin Capsai 1.0 active Capsaicin eCW3 0.25 MG/ML sam 2019 {appl 0.025 % ([facility] Topical 0.025 12:00: ic[facility] [place] Cream % 00 AM on_to Health Capsaicin EDT _affe Care) 0.025 % cted_ area_ as_ne eded} Capsaicin Capsai 1.0 active Capsaicin eCW3 0.25 MG/ML sam 2019 {appl 0.025 % ([facility] Topical 0.025 12:00: [facility] [place] Cream % 00 AM on_to Health Capsaicin EDT _affe Care) 0.025 % cted_ area_ as_ne eded} Capsaicin Capsai 1.0 active Capsaicin eCW3 0.25 MG/ML sam 2019 {appl 0.025 % ([facility] Topical 0.025 12:00: ic[facility] [place] Cream % 00 AM on_to Health Capsaicin EDT _affe Care) 0.025 % cted_ area_ as_ne eded} Capsaicin Capsai 1.0 active Capsaicin eCW3 0.25 MG/ML sam 2019 {appl 0.025 % ([facility] Topical 0.025 12:00: ic[facility] [place] Cream % 00 AM on_to Health Capsaicin EDT _affe Care) 0.025 % cted_ area_ as_ne eded} Capsaicin Capsai 1.0 active Capsaicin eCW3 0.25 MG/ML sam 2019 {appl 0.025 % ([facility] Topical 0.025 12:00: [facility] [place] Cream % 00 AM on_to Health Capsaicin EDT _affe Care) 0.025 % cted_ area_ as_ne eded} Capsaicin Capsai 1.0 active Capsaicin eCW3 0.25 MG/ML sam 2019 {appl 0.025 % ([facility] Topical 0.025 12:00: ic[facility] [place] Cream % 00 AM on_to Health Capsaicin EDT _affe Care) 0.025 % cted_ area_ as_ne eded} Capsaicin Capsai 1.0 active Capsaicin eCW3 0.25 MG/ML sam 2019 {appl 0.025 % ([facility] Topical 0.025 12:00: [facility] [place] Cream % 00 AM on_to Health Capsaicin EDT _affe Care) 0.025 % cted_ area_ as_ne eded} Capsaicin Capsai 1.0 active Capsaicin eCW3 0.25 MG/ML sam 2019 {appl 0.025 % ([facility] Topical 0.025 12:00: [facility] [place] Cream % 00 AM on_to Health Capsaicin EDT _affe Care) 0.025 % cted_ area_ as_ne eded} Capsaicin Capsai 06/27/ 1.0 active Capsaicin eCW3 0.25 MG/ML sam 2019 {appl 0.025 % ([facility] Topical 0.025 12:00: ic[facility] [place] Cream % 00 AM on_to Health Capsaicin EDT _affe Care) 0.025 % cted_ area_ as_ne eded} Capsaicin Capsai 1.0 active Capsaicin eCW3 0.25 MG/ML sam 2019 {appl 0.025 % ([facility] Topical 0.025 12:00: ic[facility] [place] Cream % 00 AM on_to Health Capsaicin EDT _affe Care) 0.025 % cted_ area_ as_ne eded} Capsaicin Capsai 1.0 active Capsaicin eCW3 0.25 MG/ML sam 2019 {appl 0.025 % ([facility] Topical 0.025 12:00: ic[facility] [place] Cream % 00 AM on_to Health Capsaicin EDT _affe Care) 0.025 % cted_ area_ as_ne eded} Capsaicin Capsai .0 active Capsaicin eCW3 0.25 MG/ML asm 2019 {appl 0.025 % ([facility] Topical 0.025 12:00: [facility] [place] Cream % 00 AM on_to Health Capsaicin EDT _affe Care) 0.025 % cted_ area_ as_ne eded} Capsaicin Capsai .0 active Capsaicin eCW3 0.25 MG/ML sam 2019 {appl 0.025 % ([facility] Topical 0.025 12:00: [facility] [place] Cream % 00 AM on_to Health Capsaicin EDT _affe Care) 0.025 % cted_ area_ as_ne eded} Capsaicin Capsai 1.0 active Capsaicin eCW3 0.25 MG/ML sam 2019 {appl 0.025 % ([facility] Topical 0.025 12:00: ic[facility] [place] Cream % 00 AM on_to Health Capsaicin EDT _affe Care) 0.025 % cted_ area_ as_ne eded} Capsaicin Capsai 1.0 active Capsaicin eCW3 0.25 MG/ML sam 2019 {appl 0.025 % ([facility] Topical 0.025 12:00: ic[facility] [place] Cream % 00 AM on_to Health Capsaicin EDT _affe Care) 0.025 % cted_ area_ as_ne eded} Acetaminoph Acetam 1.0 active Acetami nophe eCW3 en 500 MG inophe 2018 {tabl n 500 mg ([facility] Oral Tablet n 500 12:00: ets_a [facility] Acetaminoph mg 00 AM s[facility] en 500 mg EDT ded} Care) Acetaminoph Acetam .0 active Acetami nophe eCW3 en 500 MG inophe 2018 {tabl n 500 mg ([facility] Oral Tablet n 500 12:00: ets_a [facility] Acetaminoph mg 00 AM [facility] en 500 mg EDT ded} Care) Precision Precis 10/06/ active Precision eCW3 Scale - ion 2018 Scale - ([place] Scale 12:00: [place] - 00 AM Health EDT Care) Precision Precis 10/06/ active Precision eCW3 Scale - ion 2018 Scale - ([place] Scale 12:00: [place] - 00 AM Health EDT Care) Acetaminoph Acetam .0 active Acetami nophe eCW3 en 500 MG inophe 2018 {tabl n 500 mg ([facility] Oral Tablet n 500 12:00: ets_a [facility] Acetaminoph mg 00 AM [facility] en 500 mg EDT ded} Care) Precision Precis 10/06/ active Precision eCW3 Scale - ion 2018 Scale - ([place] Scale 12:00: [place] - 00 AM Health EDT Care) Acetaminoph Acetam .0 active Acetami nophe eCW3 en 500 MG inophe 2018 {tabl n 500 mg ([facility] Oral Tablet n 500 12:00: ets_a [facility] r Acetaminoph mg 00 AM [facility] en 500 mg EDT ded} Care) 24 HR Nicoti .0 suspend Nicotine eCW 3 Nicotine ne 2018 {[facility] ed Step 3 7 ([facility] 0.292 MG/HR Step 3 12:00: h_to_ MG/24HR [place] Transdermal 7 00 AM skin} Health Patch MG/24H EDT Care) Nicotine R Step 3 7 MG/24HR Acetaminoph Acetam .0 active Acetami nophe eCW3 en 500 MG inophe 2018 {tabl n 500 mg ([facility] Oral Tablet n 500 12:00: ets_a [facility] Acetaminoph mg 00 AM [facility] en 500 mg EDT ded} Care) 24 HR Nicoti 1.0 suspend Nicotine eCW 3 Nicotine ne 2018 {[facility] ed Step 3 7 ([facility] 0.292 MG/HR Step 3 12:00: h_to_ MG/24HR [place] Transdermal 7 00 AM skin} Health Patch MG/24H EDT Care) Nicotine R Step 3 7 MG/24HR Precision Precis 10/06/ active Precision eCW3 Scale - ion 2019 Scale - ([place] Scale 12:00: [place] - 00 AM Health EDT Care) 24 HR Nicoti .0 suspend Nicotine eCW 3 Nicotine ne 2018 {[facility] ed Step 3 7 ([facility] 0.292 MG/HR Step 3 12:00: h_to_ MG/24HR [place] Transdermal 7 00 AM skin} Health Patch MG/24H EDT Care) Nicotine R Step 3 7 MG/24HR Precision Precis 10/06/ active Precision eCW3 Scale - ion 2019 Scale - ([place] Scale 12:00: [place] - 00 AM Health EDT Care) 24 HR Nicoti 1.0 suspend Nicotine eCW 3 Nicotine ne 2018 {[facility] ed Step 3 7 ([facility] 0.292 MG/HR Step 3 12:00: h_to_ MG/24HR [place] Transdermal 7 00 AM skin} Health Patch MG/24H EDT Care) Nicotine R Step 3 7 MG/24HR Acetaminoph Acetam .0 active Acetami nophe eCW3 en 500 MG inophe 2018 {tabl n 500 mg ([facility] Oral Tablet n 500 12:00: ets_a [facility] r Acetaminoph mg 00 AM [facility] en 500 mg EDT ded} Care) Precision Precis 10/06/ active Precision eCW3 Scale - ion 2018 Scale - ([place] Scale 12:00: [place] - 00 AM Health EDT Care) Precision Precis 10/06/ active Precision eCW3 Scale - ion 2019 Scale - ([place] Scale 12:00: [place] - 00 AM Health EDT Care) 24 HR Nicoti 1.0 suspend Nicotine eCW 3 Nicotine ne 2018 {[facility] ed Step 3 7 ([facility] 0.292 MG/HR Step 3 12:00: h_to_ MG/24HR [place] Transdermal 7 00 AM skin} Health Patch MG/24H EDT Care) Nicotine R Step 3 7 MG/24HR 24 HR Nicoti 1.0 suspend Nicotine eCW 3 Nicotine ne 2018 {[facility] ed Step 3 7 ([facility] [facility] 0.292 MG/HR Step 3 12:00: h_to_ MG/24HR [place] Transdermal 7 00 AM skin} Health Patch MG/24H EDT Care) Nicotine R Step 3 7 MG/24HR Precision Precis 10/06/ active Precision eCW3 Scale - ion 2018 Scale - ([place] Scale 12:00: [place] - 00 AM Health EDT Care) Precision Precis 10/06/ active Precision eCW3 Scale - ion 2019 Scale - ([place] Scale 12:00: [place] - 00 AM Health EDT Care) 24 HR Nicoti 1.0 suspend Nicotine eCW 3 Nicotine ne 2018 {[facility] ed Step 3 7 ([facility] [facility] 0.292 MG/HR Step 3 12:00: h_to_ MG/24HR [place] Transdermal 7 00 AM skin} Health Patch MG/24H EDT Care) Nicotine R Step 3 7 MG/24HR Precision Precis 10/06/ active Precision eCW3 Scale - ion 2018 Scale - ([place] Scale 12:00: [place] - 00 AM Health EDT Care) Acetaminoph Acetam .0 active Acetami nophe eCW3 en 500 MG inophe 2018 {tabl n 500 mg ([facility] Oral Tablet n 500 12:00: ets_a [facility] Acetaminoph mg 00 AM [facility] en 500 mg EDT ded} Care) Acetaminoph Acetam .0 active Acetami nophe eCW3 en 500 MG inophe 2018 {tabl n 500 mg ([facility] Oral Tablet n 500 12:00: ets_a [facility] Acetaminoph mg 00 AM [facility] en 500 mg EDT ded} Care) Precision Precis 10/06/ active Precision eCW3 Scale - ion 2018 Scale - ([place] Scale 12:00: [place] - 00 AM Health EDT Care) 24 HR Nicoti 1.0 suspend Nicotine eCW 3 Nicotine ne 2018 {[facility] ed Step 3 7 ([facility] 0.292 MG/HR Step 3 12:00: h_to_ MG/24HR [place] Transdermal 7 00 AM skin} Health Patch MG/24H EDT Care) Nicotine R Step 3 7 MG/24HR Acetaminoph Acetam .0 active Acetami nophe eCW3 en 500 MG inophe 2019 {tabl n 500 mg ([facility] Oral Tablet n 500 12:00: ets_a [facility] Acetaminoph mg 00 AM [facility] en 500 mg EDT ded} Care) 24 HR Nicoti 1.0 active Nicotine eCW3 Nicotine ne 2018 {patc Step 3 7 ([facility] 0.292 MG/HR Step 3 12:00: h_to_ MG/24HR [place] Transdermal 7 00 AM skin} Health Patch MG/24H EDT Care) Nicotine R Step 3 7 MG/24HR Precision Precis 10/06/ active Precision eCW3 Scale - ion 2019 Scale - ([place] Scale 12:00: [place] - 00 AM Health EDT Care) 24 HR Nicoti 1.0 suspend Nicotine eCW 3 Nicotine ne 2018 {[facility] ed Step 3 7 ([facility] [facility] 0.292 MG/HR Step 3 12:00: h_to_ MG/24HR [place] Transdermal 7 00 AM skin} Health Patch MG/24H EDT Care) Nicotine R Step 3 7 MG/24HR Acetaminoph Acetam .0 active Acetami nophe eCW3 en 500 MG inophe 2018 {tabl n 500 mg ([facility] Oral Tablet n 500 12:00: ets_a [facility] Acetaminoph mg 00 AM [facility] en 500 mg EDT ded} Care) Acetaminoph Acetam .0 active Acetami nophe eCW3 en 500 MG inophe 2018 {tabl n 500 mg ([facility] Oral Tablet n 500 12:00: ets_a [facility] Acetaminoph mg 00 AM [facility] en 500 mg EDT ded} Care) 24 HR Nicoti 1.0 suspend Nicotine eCW 3 Nicotine ne 2018 {[facility] ed Step 3 7 ([facility] 0.292 MG/HR Step 3 12:00: h_to_ MG/24HR [place] Transdermal 7 00 AM skin} Health Patch MG/24H EDT Care) Nicotine R Step 3 7 MG/24HR 24 HR Nicoti 1.0 suspend Nicotine eCW 3 Nicotine ne 2018 {[facility] ed Step 3 7 ([place] [facility] 0.292 MG/HR Step 3 12:00: h_to_ MG/24HR [place] Transdermal 7 00 AM skin} Health Patch MG/24H EDT Care) Nicotine R Step 3 7 MG/24HR 24 HR Nicoti 1.0 suspend Nicotine eCW 3 Nicotine ne 2018 {[facility] ed Step 3 7 ([facility] [facility] 0.292 MG/HR Step 3 12:00: h_to_ MG/24HR [place] Transdermal 7 00 AM skin} Health Patch MG/24H EDT Care) Nicotine R Step 3 7 MG/24HR 24 HR Nicoti .0 suspend Nicotine eCW 3 Nicotine ne 2018 {[facility] ed Step 3 7 ([place] [facility] 0.292 MG/HR Step 3 12:00: h_to_ MG/24HR [place] Transdermal 7 00 AM skin} Health Patch MG/24H EDT Care) Nicotine R Step 3 7 MG/24HR 24 HR Nicoti .0 suspend Nicotine eCW 3 Nicotine ne 2018 {[facility] ed Step 3 7 ([place] [facility] 0.292 MG/HR Step 3 12:00: h_to_ MG/24HR [place] Transdermal 7 00 AM skin} Health Patch MG/24H EDT Care) Nicotine R Step 3 7 MG/24HR Precision Precis 10/06/ active Precision eCW3 Scale - ion 2019 Scale - ([place] Scale 12:00: [place] - 00 AM Health EDT Care) Precision Precis 10/06/ active Precision eCW3 Scale - ion 2019 Scale - ([place] Scale 12:00: [place] - 00 AM Health EDT Care) Acetaminoph Acetam .0 active Acetami nophe eCW3 en 500 MG inophe 2018 {tabl n 500 mg ([facility] Oral Tablet n 500 12:00: ets_a [facility] r Acetaminoph mg 00 AM [facility] en 500 mg EDT ded} Care) 24 HR Nicoti 1.0 suspend Nicotine eCW 3 Nicotine ne 2018 {[facility] ed Step 3 7 ([place] [facility] 0.292 MG/HR Step 3 12:00: h_to_ MG/24HR [place] Transdermal 7 00 AM skin} Health Patch MG/24H EDT Care) Nicotine R Step 3 7 MG/24HR 24 HR Nicoti 1.0 suspend Nicotine eCW 3 Nicotine ne 2018 {[facility] ed Step 3 7 ([place] [facility] 0.292 MG/HR Step 3 12:00: h_to_ MG/24HR [place] Transdermal 7 00 AM skin} Health Patch MG/24H EDT Care) Nicotine R Step 3 7 MG/24HR 24 HR Nicoti 1.0 suspend Nicotine eCW 3 Nicotine ne 2018 {[facility] ed Step 3 7 ([place] [facility] 0.292 MG/HR Step 3 12:00: h_to_ MG/24HR [place] Transdermal 7 00 AM skin} Health Patch MG/24H EDT Care) Nicotine R Step 3 7 MG/24HR Acetaminoph Acetam .0 active Acetami nophe eCW3 en 500 MG inophe 2018 {tabl n 500 mg ([facility] Oral Tablet n 500 12:00: ets_a [facility] r Acetaminoph mg 00 AM [facility] en 500 mg EDT ded} Care) Precision Precis 10/06/ active Precision eCW3 Scale - ion 2019 Scale - ([place] Scale 12:00: [place] - 00 AM Health EDT Care) Acetaminoph Acetam .0 active Acetami nophe eCW3 en 500 MG inophe 2018 {tabl n 500 mg ([facility] Oral Tablet n 500 12:00: ets_a Rive r Acetaminoph mg 00 AM [facility] en 500 mg EDT ded} Care) Acetaminoph Acetam .0 active Acetami nophe eCW3 en 500 MG inophe 2018 {tabl n 500 mg ([facility] Oral Tablet n 500 12:00: ets_a [facility] r Acetaminoph mg 00 AM [facility] en 500 mg EDT ded} Care) 24 HR Nicoti 1.0 suspend Nicotine eCW 3 Nicotine ne 2018 {[facility] ed Step 3 7 ([place] [facility] 0.292 MG/HR Step 3 12:00: h_to_ MG/24HR [place] Transdermal 7 00 AM skin} Health Patch MG/24H EDT Care) Nicotine R Step 3 7 MG/24HR Precision Precis 10/06/ active Precision eCW3 Scale - ion 2019 Scale - ([place] Scale 12:00: [place] - 00 AM Health EDT Care) Acetaminoph Acetam .0 active Acetami nophe eCW3 en 500 MG inophe 2018 {tabl n 500 mg ([facility] Oral Tablet n 500 12:00: ets_a Rive r Acetaminoph mg 00 AM [facility] en 500 mg EDT ded} Care) 24 HR Nicoti .0 suspend Nicotine eCW 3 Nicotine ne 2018 {[facility] ed Step 3 7 ([place] [facility] 0.292 MG/HR Step 3 12:00: h_to_ MG/24HR [place] Transdermal 7 00 AM skin} Health Patch MG/24H EDT Care) Nicotine R Step 3 7 MG/24HR Precision Precis 10/06/ active Precision eCW3 Scale - ion 2019 Scale - ([place] Scale 12:00: [place] - 00 AM Health EDT Care) Precision Precis 10/06/ active Precision eCW3 Scale - ion 2019 Scale - ([place] Scale 12:00: [place] - 00 AM Health EDT Care) Precision Precis 10/06/ active Precision eCW3 Scale - ion 2019 Scale - ([place] Scale 12:00: [place] - 00 AM Health EDT Care) Precision Precis 10/06/ active Precision eCW3 Scale - ion 2019 Scale - ([place] Scale 12:00: [place] - 00 AM Health EDT Care) Acetaminoph Acetam .0 active Acetami nophe eCW3 en 500 MG inophe 2018 {tabl n 500 mg ([facility] Oral Tablet n 500 12:00: ets_a Rive r Acetaminoph mg 00 AM [facility] en 500 mg EDT ded} Care) Acetaminoph Acetam .0 active Acetami nophe eCW3 en 500 MG inophe 2018 {tabl n 500 mg ([facility] Oral Tablet n 500 12:00: ets_a Rive r Acetaminoph mg 00 AM [facility] en 500 mg EDT ded} Care) Acetaminoph Acetam 1.0 active Acetami nophe eCW3 en 500 MG inophe 2019 {tabl n 500 mg ([facility] Oral Tablet n 500 12:00: ets_a Rive r Acetaminoph mg 00 AM [facility] en 500 mg EDT ded} Care) 24 HR Nicoti 1.0 suspend Nicotine eCW 3 Nicotine ne 2018 {patc ed Step 3 7 ([place] [facility] 0.292 MG/HR Step 3 12:00: h_to_ MG/24HR [place] Transdermal 7 00 AM skin} Health Patch MG/24H EDT Care) Nicotine R Step 3 7 MG/24HR Acetaminoph Acetam .0 active Acetami nophe eCW3 en 500 MG inophe 2018 {tabl n 500 mg ([facility] Oral Tablet n 500 12:00: ets_a Rive r Acetaminoph mg 00 AM [facility] en 500 mg EDT ded} Care) Precision Precis 10/06/ active Precision eCW3 Scale - ion 2019 Scale - ([place] Scale 12:00: [place] - 00 AM Health EDT Care) Acetaminoph Acetam .0 active Acetami nophe eCW3 en 500 MG inophe 2018 {tabl n 500 mg ([facility] Oral Tablet n 500 12:00: ets_a Rive r Acetaminoph mg 00 AM [facility] en 500 mg EDT ded} Care) Precision Precis 10/06/ active Precision eCW3 Scale - ion 2018 Scale - ([place] Scale 12:00: [place] - 00 AM Health EDT Care) Precision Precis 10/06/ active Precision eCW3 Scale - ion 2019 Scale - ([place] Scale 12:00: [place] - 00 AM Health EDT Care) 24 HR Nicoti 1.0 active Nicotine eCW3 Nicotine ne 2018 {patc Step 3 7 ([place] [facility] 0.292 MG/HR Step 3 12:00: h_to_ MG/24HR [place] Transdermal 7 00 AM skin} Health Patch MG/24H EDT Care) Nicotine R Step 3 7 MG/24HR Precision Precis 10/06/ active Precision eCW3 Scale - ion 2019 Scale - ([place] Scale 12:00: [place] - 00 AM Health EDT Care) 24 HR Nicoti 1.0 suspend Nicotine eCW 3 Nicotine ne 2018 {[facility] ed Step 3 7 ([place] 0.292 MG/HR Step 3 12:00: h_to_ MG/24HR [place] Transdermal 7 00 AM skin} Health Patch MG/24H EDT Care) Nicotine R Step 3 7 MG/24HR Precision Precis 10/06/ active Precision eCW3 Scale - ion 2019 Scale - ([place] Scale 12:00: [place] - 00 AM Health EDT Care) Acetaminoph Acetam 1.0 active Acetami nophe eCW3 en 500 MG inophe 2019 {tabl n 500 mg ([facility] Oral Tablet n 500 12:00: ets_a Rive r Acetaminoph mg 00 AM [facility] en 500 mg EDT ded} Care) Acetaminoph Acetam .0 active Acetami nophe eCW3 en 500 MG inophe 2018 {tabl n 500 mg ([facility] Oral Tablet n 500 12:00: ets_a Rive r Acetaminoph mg 00 AM [facility] en 500 mg EDT ded} Care) 24 HR Nicoti 1.0 suspend Nicotine eCW 3 Nicotine ne 2018 {[facility] ed Step 3 7 ([place] 0.292 MG/HR Step 3 12:00: h_to_ MG/24HR [place] Transdermal 7 00 AM skin} Health Patch MG/24H EDT Care) Nicotine R Step 3 7 MG/24HR Acetaminoph Acetam .0 active Acetami nophe eCW3 en 500 MG inophe 2018 {tabl n 500 mg ([facility] Oral Tablet n 500 12:00: ets_a Rive r Acetaminoph mg 00 AM [facility] en 500 mg EDT ded} Care) 24 HR Nicoti 1.0 suspend Nicotine eCW 3 Nicotine ne 2018 {[facility] ed Step 3 7 ([place] 0.292 MG/HR Step 3 12:00: h_to_ MG/24HR [place] Transdermal 7 00 AM skin} Health Patch MG/24H EDT Care) Nicotine R Step 3 7 MG/24HR Precision Precis 10/06/ active Precision eCW3 Scale - ion 2019 Scale - ([place] Scale 12:00: [place] - 00 AM Health EDT Care) Precision Precis 10/06/ active Precision eCW3 Scale - ion 2019 Scale - ([place] Scale 12:00: [place] - 00 AM Health EDT Care) Acetaminoph Acetam .0 active Acetami nophe eCW3 en 500 MG inophe 2018 {tabl n 500 mg ([facility] Oral Tablet n 500 12:00: ets_a Rive r Acetaminoph mg 00 AM [facility] en 500 mg EDT ded} Care) Precision Precis 10/06/ active Precision eCW3 Scale - ion 2019 Scale - ([place] Scale 12:00: [place] - 00 AM Health EDT Care) Acetaminoph Acetam .0 active Acetami nophe eCW3 en 500 MG inophe 2018 {tabl n 500 mg ([facility] Oral Tablet n 500 12:00: ets_a Rive r Acetaminoph mg 00 AM [facility] en 500 mg EDT ded} Care) 24 HR Nicoti 1.0 suspend Nicotine eCW 3 Nicotine ne 2018 {[facility] ed Step 3 7 ([place] 0.292 MG/HR Step 3 12:00: h_to_ MG/24HR [place] Transdermal 7 00 AM skin} Health Patch MG/24H EDT Care) Nicotine R Step 3 7 MG/24HR 24 HR Nicoti .0 suspend Nicotine eCW 3 Nicotine ne 2018 {pat ed Step 3 7 ([place] 0.292 MG/HR Step 3 12:00: h_to_ MG/24HR [place] Transdermal 7 00 AM skin} Health Patch MG/24H EDT Care) Nicotine R Step 3 7 MG/24HR Precision Precis 10/06/ active Precision eCW3 Scale - ion 2019 Scale - ([place] Scale 12:00: [place] - 00 AM Health EDT Care) Acetaminoph Acetam .0 active Acetami nophe eCW3 en 500 MG inophe 2018 {tabl n 500 mg ([facility] Oral Tablet n 500 12:00: ets_a Rive r Acetaminoph mg 00 AM [facility] en 500 mg EDT ded} Care) Acetaminoph Acetam 06/21/ 1.0 active Acetami nophe eCW3 en 500 MG inophe 2019 {tabl n 500 mg ([facility] Oral Tablet n 500 12:00: ets_a Rive r Acetaminoph mg 00 AM [facility] en 500 mg EDT ded} Care) 24 HR Nicoti 1.0 suspend Nicotine eCW 3 Nicotine ne 2019 {[facility] ed Step 3 7 ([place] 0.292 MG/HR Step 3 12:00: h_to_ MG/24HR [place] Transdermal 7 00 AM skin} Health Patch MG/24H EDT Care) Nicotine R Step 3 7 MG/24HR 24 HR Nicoti 1.0 suspend Nicotine eCW 3 Nicotine ne 2018 {[facility] ed Step 3 7 ([place] 0.292 MG/HR Step 3 12:00: h_to_ MG/24HR [place] Transdermal 7 00 AM skin} Health Patch MG/24H EDT Care) Nicotine R Step 3 7 MG/24HR Acetaminoph Acetam 1.0 active Acetami nophe eCW3 en 500 MG inophe 2019 {tabl n 500 mg ([facility] Oral Tablet n 500 12:00: ets_a Rive r Acetaminoph mg 00 AM [facility] en 500 mg EDT ded} Care) Lancets - Lancet 10/05/ active Lancets - eCW3 s - 2019 ([place] 12:00: [place] 00 AM Health EDT Care) Lumbar Back Lumbar 10/05/ suspend Lumbar Back eCW3 Brace/Suppo Back 2019 ed Brace/Suppor ([employer] rt Pad - Brace/ 12:00: t Pad - R[facility] Suppor 00 AM Health t Pad EDT Care) - Lumbar Back Lumbar 10/05/ active Lumbar Back eCW3 Brace/Suppo Back 2019 Brace/Suppor ([employer] rt Pad - Brace/ 12:00: t Pad - [facility] Suppor 00 AM Health t Pad EDT Care) - Lumbar Back Lumbar 10/05/ suspend Lumbar Back eCW3 Brace/Suppo Back 2019 ed Brace/Suppor ([employer] rt Pad - Brace/ 12:00: t Pad - [facility] Suppor 00 AM Health t Pad EDT Care) - Lancets - Lancet 10/05/ active Lancets - eCW3 s - 2019 ([place] 12:00: [place] 00 AM Health EDT Care) Blood Blood 20/ suspend Blood eCW3 Pressure Pressu 2019 ed Pressure ([facility] Monitor - re 12:00: Monitor - Alia er Monito 00 AM Health r - EDT Care) Blood Blood /20/ suspend Blood eCW3 Pressure Pressu 2019 ed Pressure ([facility] Monitor - re 12:00: Monitor - Alia er Monito 00 AM Health r - EDT Care) Blood Blood 20/ suspend Blood eCW3 Pressure Pressu 2019 ed Pressure ([facility] Monitor - re 12:00: Monitor - Alia er Monito 00 AM Health r - EDT Care) Lumbar Back Lumbar 10/05/ suspend Lumbar Back eCW3 Brace/Suppo Back 2019 ed Brace/Suppor ([place] rt Pad - Brace/ 12:00: t Pad - [facility] Suppor 00 AM Health t Pad EDT Care) - Blood Blood 10/05/ suspend Blood eCW3 Pressure Pressu 2019 ed Pressure ([place] Monitor - re 12:00: Monitor - Alia er [place] 00 AM Health r - EDT Care) Lancets - Lancet 10/05/ active Lancets - eCW3 s - 2019 ([place] 12:00: [place] 00 AM Health EDT Care) Blood Blood 20/ suspend Blood eCW3 Pressure Pressu 2019 ed Pressure ([place] Monitor - re 12:00: Monitor - Alia er [place] 00 AM Health r - EDT Care) Lumbar Back Lumbar 10/05/ suspend Lumbar Back eCW3 Brace/Suppo Back 2019 ed Brace/Suppor ([place] rt Pad - Brace/ 12:00: t Pad - Rive r Suppor 00 AM Health t Pad EDT Care) - Blood Blood 10/05/ suspend Blood eCW3 Pressure Pressu 2019 ed Pressure ([place] [facility] Monitor - re 12:00: Monitor - Alia er [place] 00 AM Health r - EDT Care) Lumbar Back Lumbar 10/05/ suspend Lumbar Back eCW3 Brace/Suppo Back 2019 ed Brace/Suppor ([place] rt Pad - Brace/ 12:00: t Pad - Rive r Suppor 00 AM Health t Pad EDT Care) - Lumbar Back Lumbar 10/05/ suspend Lumbar Back eCW3 Brace/Suppo Back 2019 ed Brace/Suppor ([place] rt Pad - Brace/ 12:00: t Pad - Rive r Suppor 00 AM Health t Pad EDT Care) - Lancets - Lancet 10/05/ active Lancets - eCW3 s - 2018 ([place] 12:00: [place] 00 AM Health EDT Care) Blood Blood 10/05/ suspend Blood eCW3 Pressure Pressu 2019 ed Pressure ([facility] Monitor - re 12:00: Monitor - Alia er Monito 00 AM Health r - EDT Care) Lumbar Back Lumbar 10/05/ suspend Lumbar Back eCW3 Brace/Suppo Back 2018 ed Brace/Suppor ([facility] rt Pad - Brace/ 12:00: t Pad - [facility] Suppor 00 AM Health t Pad EDT Care) - Lumbar Back Lumbar 10/05/ suspend Lumbar Back eCW3 Brace/Suppo Back 2018 ed Brace/Suppor ([place] rt Pad - Brace/ 12:00: t Pad - [facility] Suppor 00 AM Health t Pad EDT Care) - Blood Blood 10/05/ suspend Blood eCW3 Pressure Pressu 2018 ed Pressure ([facility] Monitor - re 12:00: Monitor - Alia er [place] 00 AM Health r - EDT Care) Lancets - Lancet 10/05/ active Lancets - eCW3 s - 2018 ([facility] 12:00: [place] 00 AM Health EDT Care) Lancets - Lancet 10/05/ active Lancets - eCW3 s - 2018 ([facility] 12:00: [place] 00 AM Health EDT Care) Lumbar Back Lumbar 10/05/ suspend Lumbar Back eCW3 Brace/Suppo Back 2018 ed Brace/Suppor ([place] rt Pad - Brace/ 12:00: t Pad - [facility] Suppor 00 AM Health t Pad EDT Care) - Blood Blood 10/05/ suspend Blood eCW3 Pressure Pressu 2019 ed Pressure ([facility] Monitor - re 12:00: Monitor - Alia er [place] 00 AM Health r - EDT Care) Lancets - Lancet 10/05/ active Lancets - eCW3 s - 2019 ([facility] 12:00: [place] 00 AM Health EDT Care) Lancets - Lancet 10/05/ active Lancets - eCW3 s - 2019 ([place] 12:00: [place] 00 AM Health EDT Care) Lancets - Lancet 10/05/ active Lancets - eCW3 s - 2019 ([place] 12:00: [place] 00 AM Health EDT Care) Lancets - Lancet 10/05/ active Lancets - eCW3 s - 2019 ([place] 12:00: [place] 00 AM Health EDT Care) Blood Blood 10/05/ suspend Blood eCW3 Pressure Pressu 2019 ed Pressure ([facility] Monitor - re 12:00: Monitor - Alia er [place] 00 AM Health r - EDT Care) Blood Blood 10/05/ suspend Blood eCW3 Pressure Pressu 2019 ed Pressure ([facility] Monitor - re 12:00: Monitor - Alia er [place] 00 AM Health r - EDT Care) Lancets - Lancet 10/05/ active Lancets - eCW3 s - 2019 ([place] 12:00: [place] 00 AM Health EDT Care) Blood Blood 10/05/ suspend Blood eCW3 Pressure Pressu 2019 ed Pressure ([facility] Monitor - re 12:00: Monitor - Alia er [place] 00 AM Health r - EDT Care) Lancets - Lancet 10/05/ active Lancets - eCW3 s - 2019 ([place] 12:00: [place] 00 AM Health EDT Care) Lancets - Lancet 10/05/ active Lancets - eCW3 s - 2019 ([facility] 12:00: [place] 00 AM Health EDT Care) Lumbar Back Lumbar 10/05/ suspend Lumbar Back eCW3 Brace/Suppo Back 2019 ed Brace/Suppor ([place] rt Pad - Brace/ 12:00: t Pad - R[facility] r Suppor 00 AM Health t Pad EDT Care) - Blood Blood 10/05/ suspend Blood eCW3 Pressure Pressu 2019 ed Pressure ([facility] Monitor - re 12:00: Monitor - Alia er Mon[place] 00 AM Health r - EDT Care) Blood Blood 10/05/ suspend Blood eCW3 Pressure Pressu 2019 ed Pressure ([facility] Monitor - re 12:00: Monitor - Alia er [place] 00 AM Health r - EDT Care) Lancets - Lancet 10/05/ active Lancets - eCW3 s - 2019 ([place] 12:00: [place] 00 AM Health EDT Care) Blood Blood 10/05/ suspend Blood eCW3 Pressure Pressu 2019 ed Pressure ([facility] Monitor - re 12:00: Monitor - Alia er [place] 00 AM Health r - EDT Care) Lumbar Back Lumbar 10/05/ suspend Lumbar Back eCW3 Brace/Suppo Back 2019 ed Brace/Suppor ([place] rt Pad - Brace/ 12:00: t Pad - [facility] r Suppor 00 AM Health t Pad EDT Care) - Blood Blood 10/05/ suspend Blood eCW3 Pressure Pressu 2019 ed Pressure ([facility] Monitor - re 12:00: Monitor - Alia er [place] 00 AM Health r - EDT Care) Lancets - Lancet 10/05/ active Lancets - eCW3 s - 2018 ([place] 12:00: [place] 00 AM Health EDT Care) Lancets - Lancet 10/05/ active Lancets - eCW3 s - 2018 ([place] 12:00: [place] 00 AM Health EDT Care) Blood Blood 10/05/ suspend Blood eCW3 Pressure Pressu 2018 ed Pressure ([facility] Monitor - re 12:00: Monitor - Alia er [place] 00 AM Health r - EDT Care) Lancets - Lancet 10/05/ active Lancets - eCW3 s - 2019 ([place] 12:00: [place] 00 AM Health EDT Care) Lumbar Back Lumbar 10/05/ suspend Lumbar Back eCW3 Brace/Suppo Back 2018 ed Brace/Suppor ([place] rt Pad - Brace/ 12:00: t Pad - [facility] r Suppor 00 AM Health t Pad EDT Care) - Lancets - Lancet 10/05/ active Lancets - eCW3 s - 2019 ([place] 12:00: [place] 00 AM Health EDT Care) Blood Blood 10/05/ suspend Blood eCW3 Pressure Pressu 2019 ed Pressure ([facility] - re 12:00: Monitor - Alia er [place] 00 AM Health r - EDT Care) Blood Blood 10/05/ active Blood eCW3 Pressure Pressu 2019 Pressure ([facility] - re 12:00: Monitor - Alia er [place] 00 AM Health r - EDT Care) Lumbar Back Lumbar 10/05/ suspend Lumbar Back eCW3 Brace/Suppo Back 2019 ed Brace/Suppor ([place] rt Pad - Brace/ 12:00: t Pad - [facility] Suppor 00 AM Health t Pad EDT Care) - Lumbar Back Lumbar 10/05/ suspend Lumbar Back eCW3 Brace/Suppo Back 2019 ed Brace/Suppor ([facility] rt Pad - Brace/ 12:00: t Pad - [facility] Suppor 00 AM Health t Pad EDT Care) - Blood Blood 10/05/ suspend Blood eCW3 Pressure Pressu 2019 ed Pressure ([facility] Monitor - re 12:00: Monitor - Alia er Mon[place] 00 AM Health r - EDT Care) Lancets - Lancet 10/05/ active Lancets - eCW3 s - 2019 ([place] 12:00: [place] 00 AM Health EDT Care) Lumbar Back Lumbar 10/05/ suspend Lumbar Back eCW3 Brace/Suppo Back 2019 ed Brace/Suppor ([place] rt Pad - Brace/ 12:00: t Pad - [facility] Suppor 00 AM Health t Pad EDT Care) - Lancets - Lancet 10/05/ active Lancets - eCW3 s - 2019 ([place] 12:00: [place] 00 AM Health EDT Care) Lumbar Back Lumbar 10/05/ suspend Lumbar Back eCW3 Brace/Suppo Back 2019 ed Brace/Suppor ([place] rt Pad - Brace/ 12:00: t Pad - [facility] Suppor 00 AM Health t Pad EDT Care) - Blood Blood 10/05/ suspend Blood eCW3 Pressure Pressu 2019 ed Pressure ([facility] - re 12:00: Monitor - Alia er Mon[place] 00 AM Health r - EDT Care) Lancets - Lancet 10/05/ active Lancets - eCW3 s - 2019 ([place] 12:00: [place] 00 AM Health EDT Care) Lancets - Lancet 10/05/ active Lancets - eCW3 s - 2019 ([place] 12:00: [place] 00 AM Health EDT Care) Lancets - Lancet 10/05/ active Lancets - eCW3 s - 2019 ([place] 12:00: [place] 00 AM Health EDT Care) Lancets - Lancet 10/05/ active Lancets - eCW3 s - 2019 ([place] 12:00: [place] 00 AM Health EDT Care) Blood Blood 10/05/ suspend Blood eCW3 Pressure Pressu 2019 ed Pressure ([facility] - re 12:00: Monitor - Alia er Mon[place] 00 AM Health r - EDT Care) Lumbar Back Lumbar 10/05/ suspend Lumbar Back eCW3 Brace/Suppo Back 2019 ed Brace/Suppor ([facility] rt Pad - Brace/ 12:00: t Pad - [facility] Suppor 00 AM Health t Pad EDT Care) - Lumbar Back Lumbar 10/05/ suspend Lumbar Back eCW3 Brace/Suppo Back 2019 ed Brace/Suppor ([place] rt Pad - Brace/ 12:00: t Pad - [facility] Suppor 00 AM Health t Pad EDT Care) - Blood Blood 10/05/ suspend Blood eCW3 Pressure Pressu 2019 ed Pressure ([facility] - re 12:00: Monitor - Alia er [place] 00 AM Health r - EDT Care) Lancets - Lancet 10/05/ active Lancets - eCW3 s - 2019 ([place] 12:00: [place] 00 AM Health EDT Care) Lancets - Lancet 10/05/ active Lancets - eCW3 s - 2019 ([place] 12:00: [place] 00 AM Health EDT Care) Blood Blood 10/05/ suspend Blood eCW3 Pressure Pressu 2019 ed Pressure ([facility] - re 12:00: Monitor - Alia er [place] 00 AM Health r - EDT Care) Blood Blood 10/05/ suspend Blood eCW3 Pressure Pressu 2019 ed Pressure ([facility] - re 12:00: Monitor - Alia er [place] 00 AM Health r - EDT Care) Lancets - Lancet 10/05/ active Lancets - eCW3 s - 2019 ([place] 12:00: [place] 00 AM Health EDT Care) Lumbar Back Lumbar 10/05/ suspend Lumbar Back eCW3 Brace/Suppo Back 2019 ed Brace/Suppor ([facility] rt Pad - Brace/ 12:00: t Pad - [facility] Suppor 00 AM Health t Pad EDT Care) - Lumbar Back Lumbar 10/05/ suspend Lumbar Back eCW3 Brace/Suppo Back 2019 ed Brace/Suppor ([facility] rt Pad - Brace/ 12:00: t Pad - [facility] r Suppor 00 AM Health t Pad EDT Care) - Blood Blood 10/05/ suspend Blood eCW3 Pressure Pressu 2019 ed Pressure ([facility] - re 12:00: Monitor - Alia er [place] 00 AM Health r - EDT Care) Lumbar Back Lumbar 10/05/ suspend Lumbar Back eCW3 Brace/Suppo Back 2019 ed Brace/Suppor ([facility] rt Pad - Brace/ 12:00: t Pad - [facility] Suppor 00 AM Health t Pad EDT Care) - Lumbar Back Lumbar 10/05/ suspend Lumbar Back eCW3 Brace/Suppo Back 2019 ed Brace/Suppor ([facility] rt Pad - Brace/ 12:00: t Pad - [facility] Suppor 00 AM Health t Pad EDT Care) - Lumbar Back Lumbar 10/05/ suspend Lumbar Back eCW3 Brace/Suppo Back 2019 ed Brace/Suppor ([facility] rt Pad - Brace/ 12:00: t Pad - [facility] Suppor 00 AM Health t Pad EDT Care) - Lumbar Back Lumbar 10/05/ suspend Lumbar Back eCW3 Brace/Suppo Back 2019 ed Brace/Suppor ([facility] rt Pad - Brace/ 12:00: t Pad - [facility] r Suppor 00 AM Health t Pad EDT Care) - Blood Blood 10/05/ suspend Blood eCW3 Pressure Pressu 2019 ed Pressure ([facility] - re 12:00: Monitor - Alia er Mon[place] 00 AM Health r - EDT Care) Lancets - Lancet 10/05/ active Lancets - eCW3 s - 2019 ([place] 12:00: [place] 00 AM Health EDT Care) Blood Blood 10/05/ suspend Blood eCW3 Pressure Pressu 2019 ed Pressure ([facility] - re 12:00: Monitor - Alia er Mon[place] 00 AM Health r - EDT Care) Lancets - Lancet 10/05/ active Lancets - eCW3 s - 2019 ([place] 12:00: [place] 00 AM Health EDT Care) Lumbar Back Lumbar 10/05/ suspend Lumbar Back eCW3 Brace/Suppo Back 2019 ed Brace/Suppor ([facility] rt Pad - Brace/ 12:00: t Pad - [facility] r Suppor 00 AM Health t Pad EDT Care) - Lumbar Back Lumbar 10/05/ suspend Lumbar Back eCW3 Brace/Suppo Back 2019 ed Brace/Suppor ([facility] rt Pad - Brace/ 12:00: t Pad - [facility] Suppor 00 AM Health t Pad EDT Care) - Lumbar Back Lumbar 10/05/ suspend Lumbar Back eCW3 Brace/Suppo Back 2019 ed Brace/Suppor ([facility] rt Pad - Brace/ 12:00: t Pad - [facility] Suppor 00 AM Health t Pad EDT Care) - Blood Blood 10/05/ suspend Blood eCW3 Pressure Pressu 2019 ed Pressure ([facility] - re 12:00: Monitor - Alia er Mon[place] 00 AM Health r - EDT Care) Lumbar Back Lumbar 10/05/ suspend Lumbar Back eCW3 Brace/Suppo Back 2018 ed Brace/Suppor ([facility] rt Pad - Brace/ 12:00: t Pad - [facility] Suppor 00 AM Health t Pad EDT Care) - Azithromyci Azithr 09/25/ active Azithro mycin eCW3 n 250 MG omycin 2019 250 mg ([facility] Oral Tablet 250 mg 12:00: [facility] Azithromyci 00 AM Health n 250 mg EDT Care) Thermometer UNK 09/21/ active Thermomet er eCW3 - 2018 - ([facility] 12:00: [place] 00 AM Health EDT Care) Diazepam 5 Diazep 01/19/ active 1 tablet as eCW2 MG Oral am 5 2017 needed ([facility] Tablet MG 12:00: [place] 00 AM Health EDT Care) Ibuprofen Ibupro 12/30/ active Ibuprofen eCW3 600 MG Oral fen 2018 600 MG ([facility] Tablet 600 MG 12:00: [place] 00 AM Health EDT Care) Ibuprofen Ibupro 12/30/ active Ibuprofen eCW3 600 MG Oral fen 2018 600 MG ([facility] Tablet 600 MG 12:00: [place] 00 AM Health EDT Care) Ibuprofen Ibupro 12/30/ active 1 tablet eCW2 600 MG Oral fen 2018 with food or ([facility] Tablet 600 MG 12:00: milk as [place] 00 AM needed Health EDT Care) Ibuprofen Ibupro 12/30/ active Ibuprofen eCW3 600 MG Oral fen 2018 600 MG ([facility] Tablet 600 MG 12:00: [place] 00 AM Health EDT Care) Metformin Metfor 12/16/ 1.0 suspend Metformi n eCW3 hydrochlori min 2018 {tabl ed HCl 500 mg ( [place] de 500 MG HCl 12:00: et_wi [place] Oral Tablet 500 mg 00 AM th_me Heal th Metformin EDT als} Care) HCl 500 mg Metformin Metfor .0 suspend Metformi n eCW3 hydrochlori min 2018 {tabl ed HCl 500 mg ( [place] de 500 MG HCl 12:00: et_wi [place] Oral Tablet 500 mg 00 AM th_me Heal th Metformin EDT als} Care) HCl 500 mg Metformin Metfor .0 suspend Metformi n eCW3 hydrochlori min 2018 {tabl ed HCl 500 mg ( [place] de 500 MG HCl 12:00: et_wi [place] Oral Tablet 500 mg 00 AM th_me Heal th Metformin EDT als} Care) HCl 500 mg Metformin Metfor .0 suspend Metformi n eCW3 hydrochlori min 2018 {tabl ed HCl 500 mg ( [place] de 500 MG HCl 12:00: et_wi [place] Oral Tablet 500 mg 00 AM th_me Heal th Metformin EDT als} Care) HCl 500 mg Metformin Metfor .0 suspend Metformi n eCW3 hydrochlori min 2018 {tabl ed HCl 500 mg ( [place] de 500 MG HCl 12:00: et_wi [place] Oral Tablet 500 mg 00 AM th_me Heal th Metformin EDT als} Care) HCl 500 mg Metformin Metfor .0 suspend Metformi n eCW3 hydrochlori min 2018 {tabl ed HCl 500 mg ( [place] de 500 MG HCl 12:00: et_wi [place] Oral Tablet 500 mg 00 AM th_me Heal th Metformin EDT als} Care) HCl 500 mg Metformin Metfor .0 suspend Metformi n eCW3 hydrochlori min 2018 {tabl ed HCl 500 mg ( [place] de 500 MG HCl 12:00: et_wi [place] Oral Tablet 500 mg 00 AM th_me Heal th Metformin EDT als} Care) HCl 500 mg Metformin Metfor .0 active Metformin eCW3 hydrochlori min 2018 {tabl HCl 500 mg ( [place] de 500 MG HCl 12:00: et_wi [place] Oral Tablet 500 mg 00 AM th_me Heal th Metformin EDT als} Care) HCl 500 mg Metformin Metfor .0 suspend Metformi n eCW3 hydrochlori min 2018 {tabl ed HCl 500 mg ( [place] de 500 MG HCl 12:00: et_wi [place] Oral Tablet 500 mg 00 AM _me Heal th Metformin EDT als} Care) HCl 500 mg Metformin Metfor .0 suspend Metformi n eCW3 hydrochlori min 2018 {tabl ed HCl 500 mg ( [place] de 500 MG HCl 12:00: et_wi [place] Oral Tablet 500 mg 00 AM _me Heal th Metformin EDT als} Care) HCl 500 mg Metformin Metfor .0 suspend Metformi n eCW3 hydrochlori min 2017 {tabl ed HCl 500 mg ( [place] de 500 MG HCl 12:00: et_wi [place] Oral Tablet 500 mg 00 AM _me Heal th Metformin EDT als} Care) HCl 500 mg Metformin Metfor .0 suspend Metformi n eCW3 hydrochlori min 2018 {tabl ed HCl 500 mg ( [place] de 500 MG HCl 12:00: et_wi [place] Oral Tablet 500 mg 00 AM _me Heal th Metformin EDT als} Care) HCl 500 mg Metformin Metfor 12/16/ 1 tablet eCW2 hydrochlori min 2018 with meals ([facility] de 500 MG HCl 12:00: [place] Oral Tablet 500 mg 00 AM Healt h Metformin EDT Care) HCl 500 mg Metformin Metfor .0 suspend Metformi n eCW3 hydrochlori min 2018 {tabl ed HCl 500 mg ( [place] de 500 MG HCl 12:00: et_wi [place] Oral Tablet 500 mg 00 AM _me Heal th Metformin EDT als} Care) HCl 500 mg Metformin Metfor .0 suspend Metformi n eCW3 hydrochlori min 2018 {tabl ed HCl 500 mg ( [place] de 500 MG HCl 12:00: et_wi [place] Oral Tablet 500 mg 00 AM _me Heal th Metformin EDT als} Care) HCl 500 mg Metformin Metfor .0 suspend Metformi n eCW3 hydrochlori min 2017 {tabl ed HCl 500 mg ( [place] de 500 MG HCl 12:00: et_wi [place] Oral Tablet 500 mg 00 AM _me Heal th Metformin EDT als} Care) HCl 500 mg Metformin Metfor .0 active Metformin eCW3 hydrochlori min 2018 {tabl HCl 500 mg ( [place] de 500 MG HCl 12:00: et_wi [place] Oral Tablet 500 mg 00 AM th_me Heal th Metformin EDT als} Care) HCl 500 mg Metformin Metfor .0 active Metformin eCW3 hydrochlori min 2018 {tabl HCl 500 mg ( [place] de 500 MG HCl 12:00: et_wi [place] Oral Tablet 500 mg 00 AM th_me Heal th Metformin EDT als} Care) HCl 500 mg Metformin Metfor .0 suspend Metformi n eCW3 hydrochlori min 2018 {tabl ed HCl 500 mg ( [place] de 500 MG HCl 12:00: et_wi [place] Oral Tablet 500 mg 00 AM th_me Heal th Metformin EDT als} Care) HCl 500 mg Metformin Metfor .0 suspend Metformi n eCW3 hydrochlori min 2018 {tabl ed HCl 500 mg ( [place] de 500 MG HCl 12:00: et_wi [place] Oral Tablet 500 mg 00 AM th_me Heal th Metformin EDT als} Care) HCl 500 mg Metformin Metfor .0 suspend Metformi n eCW3 hydrochlori min 2018 {tabl ed HCl 500 mg ( [place] de 500 MG HCl 12:00: et_wi [place] Oral Tablet 500 mg 00 AM th_me Heal th Metformin EDT als} Care) HCl 500 mg Metformin Metfor .0 suspend Metformi n eCW3 hydrochlori min 2018 {tabl ed HCl 500 mg ( [place] de 500 MG HCl 12:00: et_wi [place] Oral Tablet 500 mg 00 AM th_me Heal th Metformin EDT als} Care) HCl 500 mg Metformin Metfor .0 suspend Metformi n eCW3 hydrochlori min 2018 {tabl ed HCl 500 mg ( [place] de 500 MG HCl 12:00: et_wi [place] Oral Tablet 500 mg 00 AM th_me Heal th Metformin EDT als} Care) HCl 500 mg Metformin Metfor .0 active Metformin eCW3 hydrochlori min 2018 {tabl HCl 500 mg ( [place] de 500 MG HCl 12:00: et_wi [place] Oral Tablet 500 mg 00 AM th_me Heal th Metformin EDT als} Care) HCl 500 mg Metformin Metfor .0 active Metformin eCW3 hydrochlori min 2018 {tabl HCl 500 mg ( [place] de 500 MG HCl 12:00: et_wi [place] Oral Tablet 500 mg 00 AM th_me Heal th Metformin EDT als} Care) HCl 500 mg Metformin Metfor .0 suspend Metformi n eCW3 hydrochlori min 2018 {tabl ed HCl 500 mg ( [place] de 500 MG HCl 12:00: et_wi [place] Oral Tablet 500 mg 00 AM th_me Heal th Metformin EDT als} Care) HCl 500 mg Metformin Metfor .0 suspend Metformi n eCW3 hydrochlori min 2018 {tabl ed HCl 500 mg ( [place] de 500 MG HCl 12:00: et_wi [place] Oral Tablet 500 mg 00 AM th_me Heal th Metformin EDT als} Care) HCl 500 mg Metformin Metfor .0 suspend Metformi n eCW3 hydrochlori min 2018 {tabl ed HCl 500 mg ( [place] de 500 MG HCl 12:00: et_wi [place] Oral Tablet 500 mg 00 AM th_me Heal th Metformin EDT als} Care) HCl 500 mg Metformin Metfor .0 suspend Metformi n eCW3 hydrochlori min 2018 {tabl ed HCl 500 mg ( [place] de 500 MG HCl 12:00: et_wi [place] Oral Tablet 500 mg 00 AM th_me Heal th Metformin EDT als} Care) HCl 500 mg Metformin Metfor .0 suspend Metformi n eCW3 hydrochlori min 2018 {tabl ed HCl 500 mg ( [place] de 500 MG HCl 12:00: et_wi [place] Oral Tablet 500 mg 00 AM th_me Heal th Metformin EDT als} Care) HCl 500 mg Metformin Metfor .0 suspend Metformi n eCW3 hydrochlori min 2018 {tabl ed HCl 500 mg ( [place] de 500 MG HCl 12:00: et_wi [place] Oral Tablet 500 mg 00 AM th_me Heal th Metformin EDT als} Care) HCl 500 mg Metformin Metfor .0 suspend Metformi n eCW3 hydrochlori min 2018 {tabl ed HCl 500 mg ( [place] de 500 MG HCl 12:00: et_wi [place] Oral Tablet 500 mg 00 AM th_me Heal th Metformin EDT als} Care) HCl 500 mg Metformin Metfor 12/16/ 1.0 suspend Metformi n eCW3 hydrochlori min 2018 {tabl ed HCl 500 mg ( [place] de 500 MG HCl 12:00: et_wi [place] Oral Tablet 500 mg 00 AM th_me Heal th Metformin EDT als} Care) HCl 500 mg WHEELCHAIR UNK 06/13/ suspend WHEELCHAI R eCW3 REPAIR 2018 ed REPAIR ([facility] 12:00: [place] 00 AM Health EST Care) WHEELCHAIR UNK 06/13/ suspend WHEELCHAI R eCW3 REPAIR 2018 ed REPAIR ([place] 12:00: [place] 00 AM Health EST Care) WHEELCHAIR UNK 06/13/ suspend WHEELCHAI R eCW3 REPAIR 2018 ed REPAIR ([place] 12:00: [place] 00 AM Health EST Care) WHEELCHAIR UNK 06/13/ suspend WHEELCHAI R eCW3 REPAIR 2018 ed REPAIR ([place] 12:00: [place] 00 AM Health EST Care) wheelchair UNK 06/13/ active wheelchair eCW3 repair 2018 repair ([place] 12:00: [place] 00 AM Health EST Care) WHEELCHAIR UNK 06/13/ suspend WHEELCHAI R eCW3 REPAIR 2018 ed REPAIR ([place] 12:00: [place] 00 AM Health EST Care) WHEELCHAIR UNK 06/13/ suspend WHEELCHAI R eCW3 REPAIR 2018 ed REPAIR ([place] 12:00: [place] 00 AM Health EST Care) WHEELCHAIR UNK 06/13/ suspend WHEELCHAI R eCW3 REPAIR 2018 ed REPAIR ([place] 12:00: [place] 00 AM Health EST Care) wheelchair UNK 06/13/ active as directe d eCW2 repair 2018 ([place] 12:00: [place] 00 AM Health EST Care) WHEELCHAIR UNK 06/13/ suspend WHEELCHAI R eCW3 REPAIR 2018 ed REPAIR ([place] 12:00: [place] 00 AM Health EST Care) WHEELCHAIR UNK 06/13/ suspend WHEELCHAI R eCW3 REPAIR 2018 ed REPAIR ([place] 12:00: [place] 00 AM Health EST Care) WHEELCHAIR UNK 06/13/ suspend WHEELCHAI R eCW3 REPAIR 2018 ed REPAIR ([place] 12:00: [place] 00 AM Health EST Care) WHEELCHAIR UNK 06/13/ suspend WHEELCHAI R eCW3 REPAIR 2018 ed REPAIR ([place] 12:00: [place] 00 AM Health EST Care) WHEELCHAIR UNK 06/13/ suspend WHEELCHAI R eCW3 REPAIR 2018 ed REPAIR ([place] 12:00: [place] 00 AM Health EST Care) WHEELCHAIR UNK 06/13/ suspend WHEELCHAI R eCW3 REPAIR 2018 ed REPAIR ([place] 12:00: [place] 00 AM Health EST Care) WHEELCHAIR UNK 06/13/ suspend WHEELCHAI R eCW3 REPAIR 2018 ed REPAIR ([place] 12:00: [place] 00 AM Health EST Care) WHEELCHAIR UNK 06/13/ active WHEELCHAIR eCW3 REPAIR 2018 REPAIR ([place] 12:00: [place] 00 AM Health EST Care) WHEELCHAIR UNK 06/13/ active WHEELCHAIR eCW3 REPAIR 2018 REPAIR ([place] 12:00: [place] 00 AM Health EST Care) WHEELCHAIR UNK 06/13/ suspend WHEELCHAI R eCW3 REPAIR 2018 ed REPAIR ([place] 12:00: [place] 00 AM Health EST Care) WHEELCHAIR UNK 06/13/ suspend WHEELCHAI R eCW3 REPAIR 2018 ed REPAIR ([place] 12:00: [place] 00 AM Health EST Care) WHEELCHAIR UNK 06/13/ suspend WHEELCHAI R eCW3 REPAIR 2018 ed REPAIR ([place] 12:00: [place] 00 AM Health EST Care) WHEELCHAIR UNK 06/13/ suspend WHEELCHAI R eCW3 REPAIR 2018 ed REPAIR ([place] 12:00: [place] 00 AM Health EST Care) WHEELCHAIR UNK 06/13/ suspend WHEELCHAI R eCW3 REPAIR 2018 ed REPAIR ([place] 12:00: [place] 00 AM Health EST Care) WHEELCHAIR UNK 06/13/ active WHEELCHAIR eCW3 REPAIR 2018 REPAIR ([place] 12:00: [place] 00 AM Health EST Care) WHEELCHAIR UNK 06/13/ suspend WHEELCHAI R eCW3 REPAIR 2018 ed REPAIR ([place] 12:00: [place] 00 AM Health EST Care) WHEELCHAIR UNK 06/13/ suspend WHEELCHAI R eCW3 REPAIR 2018 ed REPAIR ([place] 12:00: [place] 00 AM Health EST Care) WHEELCHAIR UNK 06/13/ suspend WHEELCHAI R eCW3 REPAIR 2018 ed REPAIR ([place] 12:00: [place] 00 AM Health EST Care) WHEELCHAIR UNK 06/13/ suspend WHEELCHAI R eCW3 REPAIR 2018 ed REPAIR ([place] 12:00: [place] 00 AM Health EST Care) WHEELCHAIR UNK 06/13/ suspend WHEELCHAI R eCW3 REPAIR 2018 ed REPAIR ([place] 12:00: [place] 00 AM Health EST Care) WHEELCHAIR UNK 06/13/ suspend WHEELCHAI R eCW3 REPAIR 2018 ed REPAIR ([place] 12:00: [place] 00 AM Health EST Care) WHEELCHAIR UNK 06/13/ suspend WHEELCHAI R eCW3 REPAIR 2018 ed REPAIR ([place] 12:00: [place] 00 AM Health EST Care) WHEELCHAIR UNK 06/13/ suspend WHEELCHAI R eCW3 REPAIR 2018 ed REPAIR ([place] 12:00: [place] 00 AM Health EST Care) WHEELCHAIR UNK 06/13/ suspend WHEELCHAI R eCW3 REPAIR 2018 ed REPAIR ([place] 12:00: [place] 00 AM Health EST Care) Zithromax Zithro 04/08/ suspend Zithroma x eCW3 Z-Chris 250 max 2016 ed Z-Chris 250 mg ([facility] mg [facility] 12:00: [place] 250 mg 00 AM Health EST Care) Zithromax Zithro 04/08/ suspend Zithroma x eCW3 Z-Chris 250 max 2016 ed Z-Chris 250 mg ([facility] mg [facility] 12:00: [place] 250 mg 00 AM Health EST Care) Zithromax Zithro 04/08/ suspend Zithroma x eCW3 Z-Chris 250 max 2016 ed Z-Chris 250 mg ([facility] mg [facility] 12:00: [place] 250 mg 00 AM Health EST Care) Zithromax Zithro 04/08/ suspend Zithroma x eCW3 Z-Chris 250 max 2016 ed Z-Chris 250 mg ([facility] mg [facility] 12:00: [place] 250 mg 00 AM Health EST Care) Zithromax Zithro 04/08/ suspend Zithroma x eCW3 Z-Chris 250 max 2016 ed Z-Chris 250 mg ([facility] mg [facility] 12:00: [place] 250 mg 00 AM Health EST Care) PredniSONE UNK 12/22/ 1.0 suspend PredniSON E eCW3 40 mg 2017 {tabl ed 40 mg ([place] 12:00: et} [place] 00 AM Health EST Care) PredniSONE UNK .0 suspend PredniSON E eCW3 40 mg 2017 {tabl ed 40 mg ([place] 12:00: et} [place] 00 AM Health EST Care) PredniSONE UNK .0 suspend PredniSON E eCW3 40 mg 2017 {tabl ed 40 mg ([place] 12:00: et} [place] 00 AM Health EST Care) PredniSONE UNK .0 suspend PredniSON E eCW3 40 mg 2017 {tabl ed 40 mg ([place] 12:00: et} [place] 00 AM Health EST Care) Zithromax Zithro 04/08/ suspend Zithroma x eCW3 Z-Chris 250 max 2016 ed Z-Chris 250 mg ([facility] mg [facility] 12:00: [place] 250 mg 00 AM Health EST Care) Zithromax Zithro 04/08/ suspend Zithroma x eCW3 Z-Chris 250 max 2016 ed Z-Chris 250 mg ([facility] mg [facility] 12:00: [place] 250 mg 00 AM Health EST Care) Zithromax Zithro 04/08/ suspend Zithroma x eCW3 Z-Chris 250 max 2016 ed Z-Chris 250 mg ([facility] mg [facility] 12:00: [place] 250 mg 00 AM Health EST Care) PredniSONE UNK .0 suspend PredniSON E eCW3 40 mg 2017 {tabl ed 40 mg ([place] 12:00: et} [place] 00 AM Health EST Care) Zithromax Zithro 04/08/ suspend Zithroma x eCW3 Z-Chris 250 max 2016 ed Z-Chris 250 mg ([facility] mg [facility] 12:00: [place] 250 mg 00 AM Health EST Care) PredniSONE UNK .0 suspend PredniSON E eCW3 40 mg 2017 {tabl ed 40 mg ([place] 12:00: et} [place] 00 AM Health EST Care) PredniSONE UNK .0 suspend PredniSON E eCW3 40 mg 2017 {tabl ed 40 mg ([place] 12:00: et} [place] 00 AM Health EST Care) PredniSONE UNK .0 suspend PredniSON E eCW3 40 mg 2017 {tabl ed 40 mg ([place] 12:00: et} [place] 00 AM Health EST Care) PredniSONE UNK .0 suspend PredniSON E eCW3 40 mg 2017 {tabl ed 40 mg ([place] 12:00: et} [place] 00 AM Health EST Care) Zithromax Zithro 04/08/ suspend Zithroma x eCW3 Z-Chris 250 max 2017 ed Z-Chris 250 mg ([facility] mg [facility] 12:00: [place] 250 mg 00 AM Health EST Care) PredniSONE UNK .0 suspend PredniSON E eCW3 40 mg 2017 {tabl ed 40 mg ([place] 12:00: et} [place] 00 AM Health EST Care) Zithromax Zithro 04/08/ suspend Zithroma x eCW3 Z-Chris 250 max 2017 ed Z-Chris 250 mg ([facility] mg [facility] 12:00: [place] 250 mg 00 AM Health EST Care) PredniSONE UNK .0 suspend PredniSON E eCW3 40 mg 2017 {tabl ed 40 mg ([place] 12:00: et} [place] 00 AM Health EST Care) PredniSONE UNK .0 suspend PredniSON E eCW3 40 mg 2017 {tabl ed 40 mg ([place] 12:00: et} [place] 00 AM Health EST Care) Zithromax Zithro 04/08/ suspend Zithroma x eCW3 Z-Chris 250 max 2016 ed Z-Chris 250 mg ([facility] mg [facility] 12:00: [place] 250 mg 00 AM Health EST Care) Zithromax Zithro 04/08/ suspend Zithroma x eCW3 Z-[facility] 250 max 2016 ed Z-[facility] 250 mg ([facility] mg [facility] 12:00: [place] 250 mg 00 AM Health EST Care) PredniSONE UNK .0 suspend PredniSON E eCW3 40 mg 2017 {tabl ed 40 mg ([place] 12:00: et} [place] 00 AM Health EST Care) Zithromax Zithro 04/08/ suspend Zithroma x eCW3 Z-[facility] 250 max 2017 ed Z-[facility] 250 mg ([facility] mg [facility] 12:00: [place] 250 mg 00 AM Health EST Care) PredniSONE UNK .0 suspend PredniSON E eCW3 40 mg 2017 {tabl ed 40 mg ([place] 12:00: et} [place] 00 AM Health EST Care) Zithromax Zithro 04/08/ suspend Zithroma x eCW3 Z-[facility] 250 max 2016 ed Z-Chris 250 mg ([facility] mg [facility] 12:00: [place] 250 mg 00 AM Health EST Care) Zithromax Zithro 04/08/ suspend Zithroma x eCW3 Z-[facility] 250 max 2016 ed Z-[facility] 250 mg ([facility] mg Z-[facility] 12:00: [place] 250 mg 00 AM Health EST Care) PredniSONE UNK .0 suspend PredniSON E eCW3 40 mg 2017 {tabl ed 40 mg ([place] 12:00: et} [place] 00 AM Health EST Care) PredniSONE UNK .0 suspend PredniSON E eCW3 40 mg 2017 {tabl ed 40 mg ([place] 12:00: et} [place] 00 AM Health EST Care) PredniSONE UNK .0 suspend PredniSON E eCW3 40 mg 2017 {tabl ed 40 mg ([place] 12:00: et} [place] 00 AM Health EST Care) Zithromax Zithro 04/08/ suspend Zithroma x eCW3 Z-Chris 250 max 2016 ed Z-[facility] 250 mg ([facility] mg Z-[facility] 12:00: [place] 250 mg 00 AM Health EST Care) Zithromax Zithro 04/08/ suspend Zithroma x eCW3 Z-Chris 250 max 2016 ed Z-Chris 250 mg ([facility] mg Z-[facility] 12:00: [place] 250 mg 00 AM Health EST Care) Zithromax Zithro 04/08/ suspend 2 tablet s eCW2 Z-Chris 250 max 2016 ed on the first ([facility] mg Z-Chris 12:00: day, then 1 [place] 250 mg 00 AM tablet daily Heal EST for 4 days Care) Zithromax Zithro 04/08/ suspend Zithroma x eCW3 [facility] 250 max 2017 ed Z-[facility] 250 mg ([facility] mg Z-[facility] 12:00: [place] 250 mg 00 AM Health EST Care) PredniSONE UNK .0 suspend PredniSON E eCW3 40 mg 2017 {tabl ed 40 mg ([place] 12:00: et} [place] 00 AM Health EST Care) Zithromax Zithro 04/08/ suspend Zithroma x eCW3 Z-[facility] 250 max 2017 ed Z-[facility] 250 mg ([facility] mg [facility] 12:00: [place] 250 mg 00 AM Health EST Care) Zithromax Zithro 04/08/ suspend Zithroma x eCW3 Z-[facility] 250 max 2017 ed Z-[facility] 250 mg ([facility] mg Z-[facility] 12:00: [place] 250 mg 00 AM Health EST Care) PredniSONE UNK .0 suspend PredniSON E eCW3 40 mg 2017 {tabl ed 40 mg ([place] 12:00: et} [place] 00 AM Health EST Care) PredniSONE UNK 04/08/ suspend 1 tablet eCW2 40 mg 2017 ed ([place] 12:00: [place] 00 AM Health EST Care) PredniSONE UNK .0 suspend PredniSON E eCW3 40 mg 2017 {tabl ed 40 mg ([place] 12:00: et} [place] 00 AM Health EST Care) Zithromax Zithro 04/08/ suspend Zithroma x eCW3 Z-[facility] 250 max 2017 ed Z-[facility] 250 mg ([facility] mg [facility] 12:00: [place] 250 mg 00 AM Health EST Care) PredniSONE UNK .0 suspend PredniSON E eCW3 40 mg 2017 {tabl ed 40 mg ([place] 12:00: et} [place] 00 AM Health EST Care) Zithromax Zithro 04/08/ suspend Zithroma x eCW3 Z-[facility] 250 max 2017 ed Z-[facility] 250 mg ([facility] mg [facility] 12:00: [place] 250 mg 00 AM Health EST Care) Zithromax Zithro 04/08/ suspend Zithroma x eCW3 Z-[facility] 250 max 2017 ed Z-[facility] 250 mg ([facility] mg [facility] 12:00: [place] 250 mg 00 AM Health EST Care) PredniSONE UNK 12/22/ 1.0 suspend PredniSON E eCW3 40 mg 2017 {tabl ed 40 mg ([place] 12:00: et} [place] 00 AM Health EST Care) PredniSONE UNK .0 suspend PredniSON E eCW3 40 mg 2017 {tabl ed 40 mg ([place] 12:00: et} [place] 00 AM Health EST Care) PredniSONE UNK .0 suspend PredniSON E eCW3 40 mg 2017 {tabl ed 40 mg ([place] 12:00: et} [place] 00 AM Health EST Care) Zithromax Zithro 04/08/ suspend Zithroma x eCW3 Z-[facility] 250 max 2016 ed Z-[facility] 250 mg ([facility] mg [facility] 12:00: [place] 250 mg 00 AM Health EST Care) PredniSONE UNK .0 suspend PredniSON E eCW3 40 mg 2017 {tabl ed 40 mg ([place] 12:00: et} [place] 00 AM Health EST Care) PredniSONE UNK .0 suspend PredniSON E eCW3 40 mg 2017 {tabl ed 40 mg ([place] 12:00: et} [place] 00 AM Health EST Care) Zithromax Zithro 04/08/ suspend Zithroma x eCW3 Z-[facility] 250 max 2016 ed Z-[facility] 250 mg ([facility] mg [facility] 12:00: [place] 250 mg 00 AM Health EST Care) Zithromax Zithro 04/08/ suspend Zithroma x eCW3 Z-[facility] 250 max 2016 ed Z-[facility] 250 mg ([facility] mg Z-[facility] 12:00: [place] 250 mg 00 AM Health EST Care) PredniSONE UNK .0 suspend PredniSON E eCW3 40 mg 2017 {tabl ed 40 mg ([place] 12:00: et} [place] 00 AM Health EST Care) PredniSONE UNK .0 suspend PredniSON E eCW3 40 mg 2017 {tabl ed 40 mg ([place] 12:00: et} [place] 00 AM Health EST Care) PredniSONE UNK .0 suspend PredniSON E eCW3 40 mg 2017 {tabl ed 40 mg ([place] 12:00: et} [place] 00 AM Health EST Care) Zithromax Zithro 04/08/ suspend Zithroma x eCW3 Z-[facility] 250 max 2017 ed Z-[facility] 250 mg ([facility] mg [facility] 12:00: [place] 250 mg 00 AM Health EST Care) Zithromax Zithro 04/08/ suspend Zithroma x eCW3 Z-[facility] 250 max 2016 ed Z-[facility] 250 mg ([facility] mg Z-[facility] 12:00: [place] 250 mg 00 AM Health EST Care) PredniSONE UNK 1.0 suspend PredniSON E eCW3 40 mg 2017 {tabl ed 40 mg ([place] 12:00: et} [place] 00 AM Health EST Care) Zithromax Zithro 04/08/ suspend Zithroma x eCW3 Z-[facility] 250 max 2016 ed Z-[facility] 250 mg ([facility] mg Z-[facility] 12:00: [place] 250 mg 00 AM Health EST Care) PredniSONE UNK 1.0 suspend PredniSON E eCW3 40 mg 2017 {tabl ed 40 mg ([place] 12:00: et} [place] 00 AM Health EST Care) PredniSONE UNK 1.0 suspend PredniSON E eCW3 40 mg 2017 {tabl ed 40 mg ([place] 12:00: et} [place] 00 AM Health EST Care) Zithromax Zithro 04/08/ suspend Zithroma x eCW3 Z-[facility] 250 max 2016 ed Z-[facility] 250 mg ([facility] mg [facility] 12:00: [place] 250 mg 00 AM Health EST Care) Zithromax Zithro 04/08/ suspend Zithroma x eCW3 Z-[facility] 250 max 2016 ed Z-[facility] 250 mg ([facility] mg [facility] 12:00: [place] 250 mg 00 AM Health EST Care) Lidocaine Lidoca 11/16/ active Lidocaine -Pr eCW3 25 MG/ML / ine-Pr 2016 ilocaine ([facility] Prilocaine ilocai 12:00: 2.5-2.5 % [place] 25 MG/ML ne 00 AM Health Topical 2.5-2. EDT Care) Cream 5 % Lidocaine-P rilocaine 2.5-2.5 % Lidocaine Lidoca 11/16/ active as direct ed eCW2 25 MG/ML / ine-Pr 2016 ([place] Prilocaine ilocai 12:00: [place] 25 MG/ML ne 00 AM Health Topical 2.5-2. EDT Care) Cream 5 % Lidocaine-P rilocaine 2.5-2.5 % Lidocaine Lidoca 11/16/ active Lidocaine -Pr eCW3 25 MG/ML / ine-Pr 2016 ilocaine ([facility] Prilocaine ilocai 12:00: 2.5-2.5 % [place] 25 MG/ML ne 00 AM Health Topical 2.5-2. EDT Care) Cream 5 % Lidocaine-P rilocaine 2.5-2.5 % Lidocaine Lidoca 11/16/ active Lidocaine -Pr eCW3 25 MG/ML / ine-Pr 2016 ilocaine ([facility] Prilocaine ilocai 12:00: 2.5-2.5 % [place] 25 MG/ML ne 00 AM Health Topical 2.5-2. EDT Care) Cream 5 % Lidocaine-P rilocaine 2.5-2.5 % Lidocaine Lidoca 11/16/ active Lidocaine -Pr eCW3 25 MG/ML / ine-Pr 2016 ilocaine ([facility] Prilocaine ilocai 12:00: 2.5-2.5 % [place] 25 MG/ML ne 00 AM Health Topical 2.5-2. EDT Care) Cream 5 % Lidocaine-P rilocaine 2.5-2.5 % Nebulizer - Nebuli 07/08/ suspend Nebuli zer - eCW3 2016 ed ([place] 12:00: [place] 00 AM Health EDT Care) Glucose UNK 07/08/ active Glucose Test eCW3 Test Strips 2016 Strips ([place] [facility] Compat[facility] 12:00: Compatiable [place] with 00 AM with Health Patients EDT Patients Care) Machine Machine Nebulizer - Nebuli 07/08/ suspend Nebuli zer - eCW3 - 2016 ed ([place] 12:00: [place] 00 AM Health EDT Care) Nebulizer - Nebuli 07/08/ active Nebuliz er - eCW3 2016 ([place] 12:00: [place] 00 AM Health EDT Care) Glucose UNK 07/08/ active Glucose Test eCW3 Test Strips 2017 Strips ([place] [facility] 12:00: Compatiable [place] with 00 AM with Health Patients EDT Patients Care) Machine Machine Glucose UNK 07/08/ active Glucose Test eCW3 Test Strips 2017 Strips ([place] [facility] 12:00: Compatiable [place] with 00 AM with Health Patients EDT Patients Care) Machine Machine Glucometer UNK 07/08/ active Glucometer eCW3 2016 ([place] 12:00: [place] 00 AM Health EDT Care) Glucose UNK 07/08/ active Glucose Test eCW3 Test Strips 2017 Strips ([place] [facility] 12:00: Compatiable [place] with 00 AM with Health Patients EDT Patients Care) Machine Machine ALBUTEROL UNK 07/08/ active ALBUTEROL e CW3 SULFATE 2017 SULFATE ([place] 0.083% 2.5 12:00: 0.083% 2.5 [facility] mg/3 ml 00 AM mg/3 ml Health EDT Care) Nebulizer - Nebuli 07/08/ suspend Nebuli zer - eCW3 zer - 2016 ed ([place] 12:00: [place] 00 AM Health EDT Care) Glucose UNK 07/08/ active Glucose Test eCW3 Test Strips 2016 Strips ([place] [facility] 12:00: Compatiable [place] with 00 AM with Health Patients EDT Patients Care) Machine Machine Nebulizer - Nebuli 07/08/ suspend Nebuli zer - eCW3 zer - 2016 ed ([place] 12:00: [place] 00 AM Health EDT Care) Glucose UNK 07/08/ active Glucose Test eCW3 Test Strips 2017 Strips ([place] [facility] 12:00: Compatiable [place] with 00 AM with Health Patients EDT Patients Care) Machine Machine Glucose UNK 07/08/ active Glucose Test eCW3 Test Strips 2017 Strips ([place] [facility] 12:00: Compatiable [place] with 00 AM with Health Patients EDT Patients Care) Machine Machine Glucometer UNK 07/08/ active Glucometer eCW3 2016 ([place] 12:00: [place] 00 AM Health EDT Care) Glucose UNK 07/08/ active Glucose Test eCW3 Test Strips 2017 Strips ([place] [facility] 12:00: Compatiable [place] with 00 AM with Health Patients EDT Patients Care) Machine Machine albuterol UNK 07/08/ active albuterol e CW3 sulfate 2017 sulfate ([place] 0.083% 2.5 12:00: 0.083% 2.5 [facility] mg/3 ml 00 AM mg/3 ml Health EDT Care) Glucose UNK 07/08/ active Glucose Test eCW3 Test Strips 2016 Strips ([place] [facility] 12:00: Compatiable [place] with 00 AM with Health Patients EDT Patients Care) Machine Machine Nebulizer - Nebuli 07/08/ suspend Nebuli zer - eCW3 zer - 2016 ed ([place] 12:00: [place] 00 AM Health EDT Care) Glucose UNK 07/08/ active Glucose Test eCW3 Test Strips 2016 Strips ([place] [facility] 12:00: Compatiable [place] with 00 AM with Health Patients EDT Patients Care) Machine Machine Glucose UNK 07/08/ active Glucose Test eCW3 Test Strips 2016 Strips ([place] [facility] 12:00: Compatiable [place] with 00 AM with Health Patients EDT Patients Care) Machine Machine Glucose UNK 07/08/ active Glucose Test eCW3 Test Strips 2017 Strips ([place] [facility] 12:00: Compatiable [place] with 00 AM with Health Patients EDT Patients Care) Machine Machine Nebulizer - Nebuli 07/08/ suspend Nebuli zer - eCW3 zer - 2016 ed ([place] 12:00: [place] 00 AM Health EDT Care) Nebulizer - Nebuli 07/08/ suspend Nebuli zer - eCW3 - 2016 ed ([place] 12:00: [place] 00 AM Health EDT Care) Glucose UNK 07/08/ active Glucose Test eCW3 Test Strips 2016 Strips ([place] [facility] 12:00: Compatiable [place] with 00 AM with Health Patients EDT Patients Care) Machine Machine Nebulizer - Nebuli 07/08/ suspend Nebuli zer - eCW3 - 2016 ed ([place] 12:00: [place] 00 AM Health EDT Care) Nebulizer - Nebuli 07/08/ active Nebuliz er - eCW3 - 2016 ([place] 12:00: [place] 00 AM Health EDT Care) Nebulizer - Nebuli 07/08/ suspend Nebuli zer - eCW3 zer - 2016 ed ([place] 12:00: [place] 00 AM Health EDT Care) Glucose UNK 07/08/ active Glucose Test eCW3 Test Strips 2016 Strips ([place] [facility] 12:00: Compatiable [place] with 00 AM with Health Patients EDT Patients Care) Machine Machine Glucose UNK 07/08/ active Glucose Test eCW3 Test Strips 2016 Strips ([place] [facility] 12:00: Compatiable [place] with 00 AM with Health Patients EDT Patients Care) Machine Machine Nebulizer - Nebuli 07/08/ suspend Nebuli zer - eCW3 zer - 2016 ed ([place] 12:00: [place] 00 AM Health EDT Care) Glucometer UNK 07/08/ active Glucometer eCW3 2016 ([place] 12:00: [place] 00 AM Health EDT Care) Glucose UNK 07/08/ active Glucose Test eCW3 Test Strips 2017 Strips ([place] [facility] 12:00: Compatiable [place] with 00 AM with Health Patients EDT Patients Care) Machine Machine Nebulizer - Nebuli 07/08/ suspend Nebuli zer - eCW3 zer - 2016 ed ([place] 12:00: [place] 00 AM Health EDT Care) ALBUTEROL UNK 07/08/ active ALBUTEROL e CW3 SULFATE 2016 SULFATE ([place] 0.083% 2.5 12:00: 0.083% 2.5 [facility] mg/3 ml 00 AM mg/3 ml Health EDT Care) Glucose UNK 07/08/ active Glucose Test eCW3 Test Strips 2016 Strips ([place] [facility] 12:00: Compatiable [place] with 00 AM with Health Patients EDT Patients Care) Machine Machine Nebulizer - Nebuli 07/08/ suspend Nebuli zer - eCW3 zer - 2016 ed ([place] 12:00: [place] 00 AM Health EDT Care) Nebulizer - Nebuli 07/08/ suspend Nebuli zer - eCW3 - 2016 ed ([place] 12:00: [place] 00 AM Health EDT Care) Glucose UNK 07/08/ active Glucose Test eCW3 Test Strips 2017 Strips ([place] [facility] 12:00: Compatiable [place] with 00 AM with Health Patients EDT Patients Care) Machine Machine Glucose UNK 07/08/ active Glucose Test eCW3 Test Strips 2017 Strips ([place] [facility] 12:00: Compatiable [place] with 00 AM with Health Patients EDT Patients Care) Machine Machine Nebulizer - Nebuli 07/08/ suspend Nebuli zer - eCW3 - 2017 ed ([place] 12:00: [place] 00 AM Health EDT Care) Nebulizer - Nebuli 07/08/ suspend Nebuli zer - eCW3 zer - 2017 ed ([place] 12:00: [place] 00 AM Health EDT Care) ALBUTEROL UNK 07/08/ active ALBUTEROL e CW3 SULFATE 2017 SULFATE ([place] 0.083% 2.5 12:00: 0.083% 2.5 [facility] i[facility] mg/3 ml 00 AM mg/3 ml Health EDT Care) Glucose UNK 07/08/ active Glucose Test eCW3 Test Strips 2016 Strips ([place] [facility] 12:00: Compatiable [place] with 00 AM with Health Patients EDT Patients Care) Machine Machine Nebulizer - Nebuli 07/08/ suspend Nebuli zer - eCW3 zer - 2016 ed ([place] 12:00: [place] 00 AM Health EDT Care) Glucose UNK 07/08/ active Glucose Test eCW3 Test Strips 2016 Strips ([place] [facility] 12:00: Compatiable [place] with 00 AM with Health Patients EDT Patients Care) Machine Machine Glucose UNK 07/08/ active Glucose Test eCW3 Test Strips 2017 Strips ([place] [facility] 12:00: Compatiable [place] with 00 AM with Health Patients EDT Patients Care) Machine Machine Albuterol UNK 07/08/ active 3 ml as eCW 2 Sulfate 2017 needed for ([place] (0.083% 2.5 12:00: cough or Ri isela mg/3 ml) 00 AM difficulty Heal th 0.083% 2.5 EDT breathing Care ) mg/3 ml Albuterol UNK 07/08/ active Albuterol e CW3 Sulfate 2017 Sulfate ([place] (0.083% 2.5 12:00: (0.083% 2.5 [place] mg/3 ml) 00 AM mg/3 ml) Health 0.083% 2.5 EDT 0.083% 2.5 Car e) mg/3 ml mg/3 ml Glucose UNK 07/08/ active Glucose Test eCW3 Test Strips 2017 Strips ([place] [facility] 12:00: Compatiable [place] with 00 AM with Health Patients EDT Patients Care) Machine Machine Glucose UNK 07/08/ active Glucose Test eCW3 Test Strips 2017 Strips ([place] [facility] 12:00: Compatiable [place] with 00 AM with Health Patients EDT Patients Care) Machine Machine Nebulizer - Nebuli 07/08/ suspend Nebuli zer - eCW3 zer - 2016 ed ([place] 12:00: [place] 00 AM Health EDT Care) Glucose UNK 07/08/ active As Directed e CW2 Test Strips 2016 ([place] Compatiable 12:00: [place] with 00 AM Health Patients EDT Care) Machine Glucose UNK 07/08/ active Glucose Test eCW3 Test Strips 2016 Strips ([place] [facility] 12:00: Compatiable [place] with 00 AM with Health Patients EDT Patients Care) Machine Machine Nebulizer - Nebuli 07/08/ suspend Nebuli zer - eCW3 - 2016 ed ([place] 12:00: [place] 00 AM Health EDT Care) Nebulizer - Nebuli 07/08/ suspend Nebuli zer - eCW3 - 2016 ed ([place] 12:00: [place] 00 AM Health EDT Care) Nebulizer - Nebuli 07/08/ active Nebuliz er - eCW3 - 2016 ([place] 12:00: [place] 00 AM Health EDT Care) Nebulizer - Nebuli 07/08/ suspend Nebuli zer - eCW3 - 2016 ed ([place] 12:00: [place] 00 AM Health EDT Care) Glucose UNK 07/08/ active Glucose Test eCW3 Test Strips 2017 Strips ([place] [facility] 12:00: Compatiable [place] with 00 AM with Health Patients EDT Patients Care) Machine Machine Glucose UNK 07/08/ active Glucose Test eCW3 Test Strips 2017 Strips ([place] [facility] 12:00: Compatiable [place] with 00 AM with Health Patients EDT Patients Care) Machine Machine Nebulizer - Nebuli 07/08/ suspend Nebuli zer - eCW3 zer - 2016 ed ([place] 12:00: [place] 00 AM Health EDT Care) ALBUTEROL UNK 07/08/ active ALBUTEROL e CW3 SULFATE 2016 SULFATE ([place] 0.083% 2.5 12:00: 0.083% 2.5 [facility] i[facility] mg/3 ml 00 AM mg/3 ml Health EDT Care) Nebulizer - Nebuli 07/08/ suspend Nebuli zer - eCW3 zer - 2016 ed ([place] 12:00: [place] 00 AM Health EDT Care) Nebulizer - Nebuli 07/08/ suspend Nebuli zer - eCW3 - 2016 ed ([place] 12:00: [place] 00 AM Health EDT Care) Glucose UNK 07/08/ active Glucose Test eCW3 Test Strips 2016 Strips ([place] [facility] 12:00: Compatiable [place] with 00 AM with Health Patients EDT Patients Care) Machine Machine Nebulizer - Nebuli 07/08/ suspend Nebuli zer - eCW3 2016 ed ([place] 12:00: [place] 00 AM Health EDT Care) Nebulizer - Nebuli 07/08/ active as dire cted eCW2 2016 ([place] 12:00: [place] 00 AM Health EDT Care) Glucose UNK 07/08/ active Glucose Test eCW3 Test Strips 2016 Strips ([place] [facility] 12:00: Compatiable [place] with 00 AM with Health Patients EDT Patients Care) Machine Machine ALBUTEROL UNK 07/08/ active ALBUTEROL e CW3 SULFATE 2017 SULFATE ([place] 0.083% 2.5 12:00: 0.083% 2.5 [facility] mg/3 ml 00 AM mg/3 ml Health EDT Care) Glucose UNK 07/08/ active Glucose Test eCW3 Test Strips 2016 Strips ([place] [facility] 12:00: Compatiable [place] with 00 AM with Health Patients EDT Patients Care) Machine Machine Nebulizer - Nebuli 07/08/ active Nebuliz er - eCW3 2016 ([place] 12:00: [place] 00 AM Health EDT Care) Nebulizer - Nebuli 07/08/ suspend Nebuli zer - eCW3 - 2016 ed ([place] 12:00: [place] 00 AM Health EDT Care) Glucose UNK 07/08/ active Glucose Test eCW3 Test Strips 2016 Strips ([place] [facility] 12:00: Compatiable [place] with 00 AM with Health Patients EDT Patients Care) Machine Machine Nebulizer - Nebuli 07/08/ suspend Nebuli zer - eCW3 2016 ed ([place] 12:00: [place] 00 AM Health EDT Care) Nebulizer - Nebuli 07/08/ suspend Nebuli zer - eCW3 2016 ed ([place] 12:00: [place] 00 AM Health EDT Care) Glucose UNK 07/08/ active Glucose Test eCW3 Test Strips 2016 Strips ([place] Comp[facility] 12:00: Compatiable [place] with 00 AM with Health Patients EDT Patients Care) Machine Machine Glucometer UNK 07/08/ active Glucometer eCW3 2016 ([place] 12:00: [place] 00 AM Health EDT Care) Glucometer UNK 07/08/ active as directe d eCW2 2016 ([place] 12:00: [place] 00 AM Health EDT Care) Nebulizer - Nebuli 07/08/ suspend Nebuli zer - eCW3 zer - 2016 ed ([place] 12:00: [place] 00 AM Health EDT Care) Bath/Shower Bath/S 06/23/ suspend Bath/S hower eCW3 Seat - how2016 ed Seat - ([place] Seat - 12:00: [place] 00 AM Health EST Care) Toilet Seat Toilet 06/23/ suspend Toilet Seat eCW3 Elevator - Seat 2016 ed Elevator - ([facility] Elevat 12:00: [place] or - 00 AM Health EST Care) Toilet Seat Toilet 06/23/ suspend Toilet Seat eCW3 Elevator - Seat 2016 ed Elevator - ([facility] Elevat 12:00: [place] or - 00 AM Health EST Care) Bath/Shower Bath/S 06/23/ active Bath/Sh ower eCW3 Seat - how2016 Seat - ([place] Seat - 12:00: [place] 00 AM Health EST Care) Toilet Seat Toilet 06/23/ suspend Toilet Seat eCW3 Elevator - Seat 2016 ed Elevator - ([facility] Elevat 12:00: [place] or - 00 AM Health EST Care) Toilet Seat Toilet 06/23/ suspend Toilet Seat eCW3 Elevator - Seat 2016 ed Elevator - ([facility] Elevat 12:00: [place] or - 00 AM Health EST Care) Bath/Shower Bath/S 06/23/ active as dire cted eCW2 Seat - how2016 Dx: M19.90 ([place] Seat - 12:00: [place] 00 AM Health EST Care) Toilet Seat Toilet 06/23/ suspend Toilet Seat eCW3 Elevator - Seat 2017 ed Elevator - ([facility] Elevat 12:00: [place] or - 00 AM Health EST Care) Bath/Shower Bath/S 06/23/ active Bath/Sh ower eCW3 Seat - how2016 Seat - ([place] Seat - 12:00: [place] 00 AM Health EST Care) Bath/Shower Bath/S 06/23/ suspend Bath/S hower eCW3 Seat - how2016 ed Seat - ([place] Seat - 12:00: [place] 00 AM Health EST Care) Bath/Shower Bath/S 06/23/ suspend Bath/S hower eCW3 Seat - 2016 ed Seat - ([place] Seat - 12:00: [place] 00 AM Health EST Care) Bath/Shower Bath/S 06/23/ suspend Bath/S hower eCW3 Seat - 2016 ed Seat - ([place] Seat - 12:00: [place] 00 AM Health EST Care) Bath/Shower Bath/S 06/23/ suspend Bath/S hower eCW3 Seat - 2016 ed Seat - ([place] Seat - 12:00: [place] 00 AM Health EST Care) Toilet Seat Toilet 06/23/ active Toilet Seat eCW3 Elevator - Seat 2017 Elevator - ([facility] Elevat 12:00: [place] or - 00 AM Health EST Care) Bath/Shower Bath/S 06/23/ suspend Bath/S hower eCW3 Seat - how2016 ed Seat - ([place] Seat - 12:00: [place] 00 AM Health EST Care) Toilet Seat Toilet 06/23/ suspend Toilet Seat eCW3 Elevator - Seat 2017 ed Elevator - ([facility] Ele[facility] 12:00: [place] or - 00 AM Health EST Care) Toilet Seat Toilet 06/23/ suspend Toilet Seat eCW3 Elevator - Seat 2017 ed Elevator - ([facility] Elevat 12:00: [place] or - 00 AM Health EST Care) Toilet Seat Toilet 06/23/ suspend Toilet Seat eCW3 Elevator - Seat 2017 ed Elevator - ([facility] Elevat 12:00: [place] or - 00 AM Health EST Care) Toilet Seat Toilet 06/23/ suspend Toilet Seat eCW3 Elevator - Seat 2017 ed Elevator - ([facility] Elevat 12:00: [place] or - 00 AM Health EST Care) Toilet Seat Toilet 06/23/ suspend Toilet Seat eCW3 Elevator - Seat 2016 ed Elevator - ([facility] Ele[facility] 12:00: [place] or - 00 AM Health EST Care) Toilet Seat Toilet 06/23/ suspend Toilet Seat eCW3 Elevator - Seat 2016 ed Elevator - ([facility] Elevat 12:00: [place] or - 00 AM Health EST Care) Toilet Seat Toilet 06/23/ suspend Toilet Seat eCW3 Elevator - Seat 2016 ed Elevator - ([facility] Elevat 12:00: [place] or - 00 AM Health EST Care) Toilet Seat Toilet 06/23/ suspend Toilet Seat eCW3 Elevator - Seat 2016 ed Elevator - ([facility] Ele[facility] 12:00: [place] or - 00 AM Health EST Care) Toilet Seat Toilet 06/23/ suspend Toilet Seat eCW3 Elevator - Seat 2016 ed Elevator - ([facility] 12:00: [place] or - 00 AM Health EST Care) Bath/Shower Bath/S 06/23/ suspend Bath/S hower eCW3 Seat - how2016 ed Seat - ([place] Seat - 12:00: [place] 00 AM Health EST Care) Toilet Seat Toilet 06/23/ suspend Toilet Seat eCW3 Elevator - Seat 2016 ed Elevator - ([facility] Ele[facility] 12:00: [place] or - 00 AM Health EST Care) Bath/Shower Bath/S 06/23/ suspend Bath/S hower eCW3 Seat - how2016 ed Seat - ([place] Seat - 12:00: [place] 00 AM Health EST Care) Bath/Shower Bath/S 06/23/ suspend Bath/S hower eCW3 Seat - hower 2016 ed Seat - ([place] Seat - 12:00: [place] 00 AM Health EST Care) Toilet Seat Toilet 06/23/ suspend Toilet Seat eCW3 Elevator - Seat 2016 ed Elevator - ([facility] Ele[facility] 12:00: [place] or - 00 AM Health EST Care) Bath/Shower Bath/S 06/23/ suspend Bath/S hower eCW3 Seat - hower 2016 ed Seat - ([place] Seat - 12:00: [place] 00 AM Health EST Care) Bath/Shower Bath/S 06/23/ suspend Bath/S hower eCW3 Seat - hower 2016 ed Seat - ([place] Seat - 12:00: [place] 00 AM Health EST Care) Bath/Shower Bath/S 06/23/ suspend Bath/S hower eCW3 Seat - how2016 ed Seat - ([place] Seat - 12:00: [place] 00 AM Health EST Care) Toilet Seat Toilet 06/23/ active Toilet Seat eCW3 Elevator - Seat 2016 Elevator - ([facility] 12:00: [place] or - 00 AM Health EST Care) Bath/Shower Bath/S 06/23/ suspend Bath/S hower eCW3 Seat - how2016 ed Seat - ([place] Seat - 12:00: [place] 00 AM Health EST Care) Bath/Shower Bath/S 06/23/ suspend Bath/S hower eCW3 Seat - how2016 ed Seat - ([place] Seat - 12:00: [place] 00 AM Health EST Care) Bath/Shower Bath/S 06/23/ suspend Bath/S hower eCW3 Seat - how2016 ed Seat - ([place] Seat - 12:00: [place] 00 AM Health EST Care) Toilet Seat Toilet 06/23/ suspend Toilet Seat eCW3 Elevator - Seat 2016 ed Elevator - ([facility] 12:00: [place] or - 00 AM Health EST Care) Toilet Seat Toilet 06/23/ suspend Toilet Seat eCW3 Elevator - Seat 2016 ed Elevator - ([facility] 12:00: [place] or - 00 AM Health EST Care) Bath/Shower Bath/S 06/23/ suspend Bath/S hower eCW3 Seat - hower 2016 ed Seat - ([place] Seat - 12:00: [place] 00 AM Health EST Care) Toilet Seat Toilet 06/23/ active as dire cted eCW2 Elevator - Seat 2017 Dx: M19.90 ([facility] Ele[facility] 12:00: [place] or - 00 AM Health EST Care) Toilet Seat Toilet 06/23/ suspend Toilet Seat eCW3 Elevator - Seat 2016 ed Elevator - ([facility] Elevat 12:00: [place] or - 00 AM Health EST Care) Toilet Seat Toilet 06/23/ active Toilet Seat eCW3 Elevator - Seat 2016 Elevator - ([facility] Elevat 12:00: [place] or - 00 AM Health EST Care) Bath/Shower Bath/S 06/23/ suspend Bath/S hower eCW3 Seat - hower 2016 ed Seat - ([place] Seat - 12:00: [place] 00 AM Health EST Care) Bath/Shower Bath/S 06/23/ suspend Bath/S hower eCW3 Seat - hower 2016 ed Seat - ([place] Seat - 12:00: [place] 00 AM Health EST Care) Bath/Shower Bath/S 06/23/ suspend Bath/S hower eCW3 Seat - hower 2016 ed Seat - ([place] Seat - 12:00: [place] 00 AM Health EST Care) Bath/Shower Bath/S 06/23/ suspend Bath/S hower eCW3 Seat - hower 2016 ed Seat - ([place] Seat - 12:00: [place] 00 AM Health EST Care) Toilet Seat Toilet 06/23/ suspend Toilet Seat eCW3 Elevator - Seat 2016 ed Elevator - ([facility] Elevat 12:00: [place] or - 00 AM Health EST Care) Toilet Seat Toilet 06/23/ suspend Toilet Seat eCW3 Elevator - Seat 2016 ed Elevator - ([facility] Elevat 12:00: [place] or - 00 AM Health EST Care) Bath/Shower Bath/S 06/23/ suspend Bath/S hower eCW3 Seat - hower 2016 ed Seat - ([place] Seat - 12:00: [place] 00 AM Health EST Care) Bath/Shower Bath/S 06/23/ suspend Bath/S hower eCW3 Seat - hower 2016 ed Seat - ([place] Seat - 12:00: [place] 00 AM Health EST Care) Bath/Shower Bath/S 06/23/ suspend Bath/S hower eCW3 Seat - hower 2016 ed Seat - ([place] Seat - 12:00: [place] 00 AM Health EST Care) Bath/Shower Bath/S 06/23/ active Bath/Sh ower eCW3 Seat - 2016 Seat - ([place] Seat - 12:00: [place] 00 AM Health EST Care) Toilet Seat Toilet 06/23/ suspend Toilet Seat eCW3 Elevator - Seat 2017 ed Elevator - ([facility] Elevat 12:00: [place] or - 00 AM Health EST Care) Toilet Seat Toilet 06/23/ suspend Toilet Seat eCW3 Elevator - Seat 2016 ed Elevator - ([facility] Elevat 12:00: [place] or - 00 AM Health EST Care) Toilet Seat Toilet 06/23/ suspend Toilet Seat eCW3 Elevator - Seat 2016 ed Elevator - ([facility] Elevat 12:00: [place] or - 00 AM Health EST Care) Bath/Shower Bath/S 06/23/ suspend Bath/S hower eCW3 Seat - 2016 ed Seat - ([place] Seat - 12:00: [place] 00 AM Health EST Care) Toilet Seat Toilet 06/23/ suspend Toilet Seat eCW3 Elevator - Seat 2016 ed Elevator - ([facility] Elevat 12:00: [place] or - 00 AM Health EST Care) Bath/Shower Bath/S 06/23/ suspend Bath/S hower eCW3 Seat - 2016 ed Seat - ([place] Seat - 12:00: [place] 00 AM Health EST Care) Bath/Shower Bath/S 06/23/ active Bath/Sh ower eCW3 Seat - 2016 Seat - ([place] Seat - 12:00: [place] 00 AM Health EST Care) Bath/Shower Bath/S 06/23/ suspend Bath/S hower eCW3 Seat - 2016 ed Seat - ([place] Seat - 12:00: [place] 00 AM Health EST Care) Toilet Seat Toilet 06/23/ active Toilet Seat eCW3 Elevator - Seat 2017 Elevator - ([facility] Elevat 12:00: [place] or - 00 AM Health EST Care) Bath/Shower Bath/S 06/23/ suspend Bath/S hower eCW3 Seat - hower 2017 ed Seat - ([place] Seat - 12:00: [place] 00 AM Health EST Care) Bath/Shower Bath/S 06/23/ suspend Bath/S hower eCW3 Seat - hower 2016 ed Seat - ([place] Seat - 12:00: [place] 00 AM Health EST Care) Toilet Seat Toilet 06/23/ suspend Toilet Seat eCW3 Elevator - Seat 2016 ed Elevator - ([facility] Elevat 12:00: [place] or - 00 AM Health EST Care) Toilet Seat Toilet 06/23/ suspend Toilet Seat eCW3 Elevator - Seat 2016 ed Elevator - ([facility] Elevat 12:00: [place] or - 00 AM Health EST Care) Toilet Seat Toilet 06/23/ suspend Toilet Seat eCW3 Elevator - Seat 2016 ed Elevator - ([facility] Elevat 12:00: [place] or - 00 AM Health EST Care) Lac-Hydrin Lac-Hy .0 active Lac-Hydr in eCW3 12 % 2016 {appl 12 % ([place] 12 % 12:00: icati [place] 00 AM on_to Health EST _affe Care) cted_ area} Lac-Hydrin Lac-Hy .0 active Lac-Hydr in eCW3 12 % 2016 {appl 12 % ([place] 12 % 12:00: icati [place] 00 AM on_to Health EST _affe Care) cted_ area} Lac-Hydrin Lac-Hy .0 active Lac-Hydr in eCW3 12 % 2016 {appl 12 % ([place] 12 % 12:00: icati [place] 00 AM on_to Health EST _affe Care) cted_ area} Lac-Hydrin Lac-Hy .0 active Lac-Hydr in eCW3 12 % 2016 {appl 12 % ([place] 12 % 12:00: icati [place] 00 AM on_to Health EST _affe Care) cted_ area} Lac-Hydrin Lac-Hy .0 active Lac-Hydr in eCW3 12 % 2016 {appl 12 % ([place] 12 % 12:00: icati [place] 00 AM on_to Health EST _affe Care) cted_ area} Lac-Hydrin Lac-Hy .0 active Lac-Hydr in eCW3 12 % 2016 {appl 12 % ([place] 12 % 12:00: icati [place] 00 AM on_to Health EST _affe Care) cted_ area} Lac-Hydrin Lac-Hy .0 active Lac-Hydr in eCW3 12 % 2016 {appl 12 % ([place] 12 % 12:00: icati [place] 00 AM on_to Health EST _affe Care) cted_ area} Lac-Hydrin Lac-Hy .0 active Lac-Hydr in eCW3 12 % 2016 {appl 12 % ([place] 12 % 12:00: icati [place] 00 AM on_to Health EST _affe Care) cted_ area} Lac-Hydrin Lac-Hy .0 active Lac-Hydr in eCW3 12 % 2016 {appl 12 % ([place] 12 % 12:00: icati [place] 00 AM on_to Health EST _affe Care) cted_ area} Lac-Hydrin Lac-Hy .0 active Lac-Hydr in eCW3 12 % 2016 {appl 12 % ([place] 12 % 12:00: icati [place] 00 AM on_to Health EST _affe Care) cted_ area} Lac-Hydrin Lac-Hy .0 active Lac-Hydr in eCW3 12 % 2016 {appl 12 % ([place] 12 % 12:00: icati [place] 00 AM on_to Health EST _affe Care) cted_ area} Lac-Hydrin Lac-Hy .0 active Lac-Hydr in eCW3 12 % 2016 {appl 12 % ([place] 12 % 12:00: icati [place] 00 AM on_to Health EST _affe Care) cted_ area} Lac-Hydrin Lac-Hy .0 active Lac-Hydr in eCW3 12 % 2016 {appl 12 % ([place] 12 % 12:00: icati [place] 00 AM on_to Health EST _affe Care) cted_ area} Lac-Hydrin Lac-Hy .0 active Lac-Hydr in eCW3 12 % 2017 {appl 12 % ([place] 12 % 12:00: icati [place] 00 AM on_to Health EST _affe Care) cted_ area} Lac-Hydrin Lac-Hy .0 active Lac-Hydr in eCW3 12 % 2016 {appl 12 % ([place] 12 % 12:00: icati [place] 00 AM on_to Health EST _affe Care) cted_ area} Lac-Hydrin Lac-Hy .0 active Lac-Hydr in eCW3 12 % 2016 {appl 12 % ([place] 12 % 12:00: icati [place] 00 AM on_to Health EST _affe Care) cted_ area} Lac-Hydrin Lac-Hy .0 active Lac-Hydr in eCW3 12 % 2016 {appl 12 % ([place] 12 % 12:00: icati [place] 00 AM on_to Health EST _affe Care) cted_ area} Lac-Hydrin Lac-Hy .0 active Lac-Hydr in eCW3 12 % 2016 {appl 12 % ([place] 12 % 12:00: icati [place] 00 AM on_to Health EST _affe Care) cted_ area} Lac-Hydrin Lac-Hy 05/17/ active 1 eCW 2 12 % 2017 application ([place] 12 % 12:00: to affected [place] 00 AM area Health EST Care) Lac-Hydrin Lac-Hy .0 active Lac-Hydr in eCW3 12 % 2016 {appl 12 % ([place] 12 % 12:00: icati [place] 00 AM on_to Health EST _affe Care) cted_ area} Lac-Hydrin Lac-Hy .0 active Lac-Hydr in eCW3 12 % 2016 {appl 12 % ([place] 12 % 12:00: icati [place] 00 AM on_to Health EST _affe Care) cted_ area} Lac-Hydrin Lac-Hy .0 active Lac-Hydr in eCW3 12 % 2016 {appl 12 % ([place] 12 % 12:00: icati [place] 00 AM on_to Health EST _affe Care) cted_ area} Lac-Hydrin Lac-Hy .0 active Lac-Hydr in eCW3 12 % 2016 {appl 12 % ([place] 12 % 12:00: icati [place] 00 AM on_to Health EST _affe Care) cted_ area} Lac-Hydrin Lac-Hy .0 active Lac-Hydr in eCW3 12 % 2016 {appl 12 % ([place] 12 % 12:00: icati [place] 00 AM on_to Health EST _affe Care) cted_ area} Lac-Hydrin Lac-Hy .0 active Lac-Hydr in eCW3 12 % 2016 {appl 12 % ([place] 12 % 12:00: icati [place] 00 AM on_to Health EST _affe Care) cted_ area} Lac-Hydrin Lac-Hy .0 active Lac-Hydr in eCW3 12 % 2016 {appl 12 % ([place] 12 % 12:00: icati [place] 00 AM on_to Health EST _affe Care) cted_ area} Lac-Hydrin Lac-Hy .0 active Lac-Hydr in eCW3 12 % 2016 {appl 12 % ([place] 12 % 12:00: icati [place] 00 AM on_to Health EST _affe Care) cted_ area} Lac-Hydrin Lac-Hy .0 active Lac-Hydr in eCW3 12 % 2016 {appl 12 % ([place] 12 % 12:00: icati [place] 00 AM on_to Health EST _affe Care) cted_ area} Lac-Hydrin Lac-Hy .0 active Lac-Hydr in eCW3 12 % 2016 {appl 12 % ([place] 12 % 12:00: icati [place] 00 AM on_to Health EST _affe Care) cted_ area} Lac-Hydrin Lac-Hy .0 active Lac-Hydr in eCW3 12 % 2016 {appl 12 % ([place] 12 % 12:00: icati [place] 00 AM on_to Health EST _affe Care) cted_ area} Lac-Hydrin Lac-Hy .0 active Lac-Hydr in eCW3 12 % 2016 {appl 12 % ([place] 12 % 12:00: icati [place] 00 AM on_to Health EST _affe Care) cted_ area} Lac-Hydrin Lac-Hy .0 active Lac-Hydr in eCW3 12 % 2016 {appl 12 % ([place] 12 % 12:00: icati [place] 00 AM on_to Health EST _affe Care) cted_ area} Lac-Hydrin Lac-Hy .0 active Lac-Hydr in eCW3 12 % 2016 {appl 12 % ([place] 12 % 12:00: icati [place] 00 AM on_to Health EST _affe Care) cted_ area} Prednisone Predni .0 suspend PredniS ONE eCW3 20 MG Oral SONE 2014 {tabl ed 20 mg ([place] Tablet 20 mg 12:00: et_wi [place] PredniSONE 00 AM th_fo Health 20 mg EDT od_or Care) _milk } Prednisone Predni .0 suspend PredniS ONE eCW3 20 MG Oral SONE 2014 {tabl ed 20 mg ([place] Tablet 20 mg 12:00: et_wi [place] PredniSONE 00 AM th_fo Health 20 mg EDT od_or Care) _milk } Prednisone Predni .0 suspend PredniS ONE eCW3 20 MG Oral SONE 2014 {tabl ed 20 mg ([place] Tablet 20 mg 12:00: et_wi [place] PredniSONE 00 AM th_fo Health 20 mg EDT od_or Care) _milk } Prednisone Predni .0 suspend PredniS ONE eCW3 20 MG Oral SONE 2014 {tabl ed 20 mg ([place] Tablet 20 mg 12:00: et_wi [place] PredniSONE 00 AM th_fo Health 20 mg EDT od_or Care) _milk } Prednisone Predni .0 suspend PredniS ONE eCW3 20 MG Oral SONE 2014 {tabl ed 20 mg ([place] Tablet 20 mg 12:00: et_wi [place] PredniSONE 00 AM th_fo Health 20 mg EDT od_or Care) _milk } Prednisone Predni .0 suspend PredniS ONE eCW3 20 MG Oral SONE 2014 {tabl ed 20 mg ([place] Tablet 20 mg 12:00: et_wi [place] PredniSONE 00 AM th_fo Health 20 mg EDT od_or Care) _milk } Prednisone Predni .0 suspend PredniS ONE eCW3 20 MG Oral SONE 2014 {tabl ed 20 mg ([place] Tablet 20 mg 12:00: et_wi [place] PredniSONE 00 AM th_fo Health 20 mg EDT od_or Care) _milk } Prednisone Predni .0 suspend PredniS ONE eCW3 20 MG Oral SONE 2014 {tabl ed 20 mg ([place] Tablet 20 mg 12:00: et_wi [place] PredniSONE 00 AM th_fo Health 20 mg EDT od_or Care) _milk } Prednisone Predni .0 suspend PredniS ONE eCW3 20 MG Oral SONE 2014 {tabl ed 20 mg ([place] Tablet 20 mg 12:00: et_wi [place] PredniSONE 00 AM th_fo Health 20 mg EDT od_or Care) _milk } Hydralazine HydrAL .0 active HydrALA ZINE eCW3 Hydrochlori AZINE 2014 {tabl HCl 25 MG ( [place] de 25 MG HCl 25 12:00: et} [place] Oral Tablet MG 00 AM Health HydrALAZINE EDT Care) HCl 25 MG Prednisone Predni .0 suspend PredniS ONE eCW3 20 MG Oral SONE 2014 {tabl ed 20 mg ([place] Tablet 20 mg 12:00: et_wi [place] PredniSONE 00 AM th_fo Health 20 mg EDT od_or Care) _milk } Hydralazine HydrAL .0 active HydrALA ZINE eCW3 Hydrochlori AZINE 2014 {tabl HCl 25 MG ( [place] de 25 MG HCl 25 12:00: et} [place] Oral Tablet MG 00 AM Health HydrALAZINE EDT Care) HCl 25 MG Prednisone Predni .0 suspend PredniS ONE eCW3 20 MG Oral SONE 2014 {tabl ed 20 mg ([place] Tablet 20 mg 12:00: et_wi [place] PredniSONE 00 AM th_fo Health 20 mg EDT od_or Care) _milk } Prednisone Predni 12/09/ suspend 2 tabl et eCW2 20 MG Oral SONE 2014 ed with food or ( [place] Tablet 20 mg 12:00: milk [place] PredniSONE 00 AM Health 20 mg EDT Care) Prednisone Predni .0 suspend PredniS ONE eCW3 20 MG Oral SONE 2014 {tabl ed 20 mg ([place] Tablet 20 mg 12:00: et_wi [place] PredniSONE 00 AM th_fo Health 20 mg EDT od_or Care) _milk } Prednisone Predni 2.0 suspend PredniS ONE eCW3 20 MG Oral SONE 2014 {tabl ed 20 mg ([place] Tablet 20 mg 12:00: et_wi [place] PredniSONE 00 AM th_fo Health 20 mg EDT od_or Care) _milk } Prednisone Predni .0 suspend PredniS ONE eCW3 20 MG Oral SONE 2014 {tabl ed 20 mg ([place] Tablet 20 mg 12:00: et_wi [place] PredniSONE 00 AM th_fo Health 20 mg EDT od_or Care) _milk } Prednisone Predni .0 suspend PredniS ONE eCW3 20 MG Oral SONE 2014 {tabl ed 20 mg ([place] Tablet 20 mg 12:00: et_wi [place] PredniSONE 00 AM th_fo Health 20 mg EDT od_or Care) _milk } Prednisone Predni .0 suspend PredniS ONE eCW3 20 MG Oral SONE 2014 {tabl ed 20 mg ([place] Tablet 20 mg 12:00: et_wi [place] PredniSONE 00 AM th_fo Health 20 mg EDT od_or Care) _milk } Prednisone Predni .0 suspend PredniS ONE eCW3 20 MG Oral SONE 2014 {tabl ed 20 mg ([place] Tablet 20 mg 12:00: et_wi [place] PredniSONE 00 AM th_fo Health 20 mg EDT od_or Care) _milk } Hydralazine HydrAL .0 active HydrALA ZINE eCW3 Hydrochlori AZINE 2014 {tabl HCl 25 MG ( [place] de 25 MG HCl 25 12:00: et} [place] Oral Tablet MG 00 AM Health HydrALAZINE EDT Care) HCl 25 MG Prednisone Predni .0 suspend PredniS ONE eCW3 20 MG Oral SONE 2014 {tabl ed 20 mg ([place] Tablet 20 mg 12:00: et_wi [place] PredniSONE 00 AM th_fo Health 20 mg EDT od_or Care) _milk } Hydralazine HydrAL 12/09/ active 1 table t eCW2 Hydrochlori AZINE 2014 ([place] de 25 MG HCl 25 12:00: [place] Oral Tablet MG 00 AM Health HydrALAZINE EDT Care) HCl 25 MG Prednisone Predni .0 suspend PredniS ONE eCW3 20 MG Oral SONE 2014 {tabl ed 20 mg ([place] Tablet 20 mg 12:00: et_wi [place] PredniSONE 00 AM th_fo Health 20 mg EDT od_or Care) _milk } Prednisone Predni .0 suspend PredniS ONE eCW3 20 MG Oral SONE 2014 {tabl ed 20 mg ([place] Tablet 20 mg 12:00: et_wi [place] PredniSONE 00 AM th_fo Health 20 mg EDT od_or Care) _milk } Prednisone Predni .0 suspend PredniS ONE eCW3 20 MG Oral SONE 2014 {tabl ed 20 mg ([place] Tablet 20 mg 12:00: et_wi [place] PredniSONE 00 AM th_fo Health 20 mg EDT od_or Care) _milk } Prednisone Predni .0 suspend PredniS ONE eCW3 20 MG Oral SONE 2014 {tabl ed 20 mg ([place] Tablet 20 mg 12:00: et_wi [place] PredniSONE 00 AM th_fo Health 20 mg EDT od_or Care) _milk } Prednisone Predni .0 suspend PredniS ONE eCW3 20 MG Oral SONE 2014 {tabl ed 20 mg ([place] Tablet 20 mg 12:00: et_wi [place] PredniSONE 00 AM th_fo Health 20 mg EDT od_or Care) _milk } Prednisone Predni .0 suspend PredniS ONE eCW3 20 MG Oral SONE 2014 {tabl ed 20 mg ([place] Tablet 20 mg 12:00: et_wi [place] PredniSONE 00 AM th_fo Health 20 mg EDT od_or Care) _milk } Prednisone Predni .0 suspend PredniS ONE eCW3 20 MG Oral SONE 2014 {tabl ed 20 mg ([place] Tablet 20 mg 12:00: et_wi [place] PredniSONE 00 AM th_fo Health 20 mg EDT od_or Care) _milk } Prednisone Predni 2.0 suspend PredniS ONE eCW3 20 MG Oral SONE 2014 {tabl ed 20 mg ([place] Tablet 20 mg 12:00: et_wi [place] PredniSONE 00 AM th_fo Health 20 mg EDT od_or Care) _milk } Prednisone Predni 2.0 suspend PredniS ONE eCW3 20 MG Oral SONE 2014 {tabl ed 20 mg ([place] Tablet 20 mg 12:00: et_wi [place] PredniSONE 00 AM th_fo Health 20 mg EDT od_or Care) _milk } Prednisone Predni .0 suspend PredniS ONE eCW3 20 MG Oral SONE 2014 {tabl ed 20 mg ([place] Tablet 20 mg 12:00: et_wi [place] PredniSONE 00 AM th_fo Health 20 mg EDT od_or Care) _milk } Prednisone Predni .0 suspend PredniS ONE eCW3 20 MG Oral SONE 2014 {tabl ed 20 mg ([place] Tablet 20 mg 12:00: et_wi [place] PredniSONE 00 AM th_fo Health 20 mg EDT od_or Care) _milk } Prednisone Predni .0 suspend PredniS ONE eCW3 20 MG Oral SONE 2014 {tabl ed 20 mg ([place] Tablet 20 mg 12:00: et_wi [place] PredniSONE 00 AM th_fo Health 20 mg EDT od_or Care) _milk } Prednisone Predni .0 suspend PredniS ONE eCW3 20 MG Oral SONE 2014 {tabl ed 20 mg ([place] Tablet 20 mg 12:00: et_wi [place] PredniSONE 00 AM th_fo Health 20 mg EDT od_or Care) _milk } Prednisone Predni .0 suspend PredniS ONE eCW3 20 MG Oral SONE 2014 {tabl ed 20 mg ([place] Tablet 20 mg 12:00: et_wi [place] PredniSONE 00 AM th_fo Health 20 mg EDT od_or Care) _milk } Labetalol Labeta .0 active Labetalol eCW3 hydrochlori lol 2014 {tabl HCl 100 mg ( [place] de 100 MG HCl 12:00: et} [place] Oral Tablet 100 mg 00 AM Healt h Labetalol EDT Care) HCl 100 mg Hydrochloro Hydroc .0 active Hydroch lorot eCW3 thiazide 50 hlorot 2014 {tabl hiazide 50 ([place] MG Oral hiazid 12:00: et} mg [place] Tablet e 50 00 AM Health Hydrochloro mg EDT Care) thiazide 50 mg Labetalol Labeta 1.0 active Labetalol eCW3 hydrochlori lol 2014 {tabl HCl 100 mg ( [place] de 100 MG HCl 12:00: et} [place] Oral Tablet 100 mg 00 AM Healt h Labetalol EDT Care) HCl 100 mg Labetalol Labeta 10/14/ active 1 tablet eCW2 hydrochlori lol 2014 ([place] de 100 MG HCl 12:00: [place] Oral Tablet 100 mg 00 AM Healt h Labetalol EDT Care) HCl 100 mg Hydrochloro Hydroc 10/14/ active 1 table t eCW2 thiazide 50 hlorot 2014 ([place] [facility] MG Oral hiazid 12:00: [place] Tablet e 50 00 AM Health Hydrochloro mg EDT Care) thiazide 50 mg Labetalol Labeta .0 active Labetalol eCW3 hydrochlori lol 2014 {tabl HCl 100 mg ( [place] de 100 MG HCl 12:00: et} [place] Oral Tablet 100 mg 00 AM Healt h Labetalol EDT Care) HCl 100 mg Hydrochloro Hydroc .0 active Hydroch lorot eCW3 thiazide 50 hlorot 2014 {tabl hiazide 50 ([place] MG Oral hiazid 12:00: et} mg [place] Tablet e 50 00 AM Health Hydrochloro mg EDT Care) thiazide 50 mg Hydrochloro Hydroc 1.0 active Hydroch lorot eCW3 thiazide 50 hlorot 2014 {tabl hiazide 50 ([place] MG Oral hiazid 12:00: et} mg [place] Tablet e 50 00 AM Health Hydrochloro mg EDT Care) thiazide 50 mg Digoxin Digoxi .0 active Digoxin 250 eCW3 0.25 MG n 250 2014 {tabl MCG ([place] Oral Tablet MCG 12:00: et} [place] Digoxin 250 00 AM Health MCG EDT Care) Digoxin Digoxi .0 active Digoxin 250 eCW3 0.25 MG n 250 2014 {tabl MCG ([place] Oral Tablet MCG 12:00: et} [place] Digoxin 250 00 AM Health [facility] [place] EDT Care) 3 ML NovoLo 09/11/ active NovoLog eCW3 Insulin, g 2014 Flexpen 100 ([place] [facility] Aspart, Flexpe 12:00: UNIT/ML [place] Human 100 n 100 00 AM Health UNT/ML Pen UNIT/M EDT Care) Injector L [NovoLog] NovoLog Flexpen 100 UNIT/ML Digoxin Digoxi 1.0 active Digoxin 250 eCW3 0.25 MG n 250 2014 {tabl MCG ([place] Oral Tablet MCG 12:00: et} [place] Digoxin 250 00 AM Health [place] [facility] [place] EDT Care) Digoxin Digoxi 1.0 active Digoxin 250 eCW3 0.25 MG n 250 2014 {tabl MCG ([place] Oral Tablet MCG 12:00: et} [place] Digoxin 250 00 AM Health [place] [facility] [place] EDT Care) 3 ML NovoLo 09/11/ active NovoLog eCW3 Insulin, g 2014 Flexpen 100 ([place] [facility]art, Flexpe 12:00: UNIT/ML [place] Human 100 n 100 00 AM Health UNT/ML Pen UNIT/M EDT Care) Injector L [NovoLog] NovoLog Flexpen 100 UNIT/ML 3 ML NovoLo 09/11/ active NovoLog eCW3 Insulin, g 2014 Flexpen 100 ([place] [facility]art, Flexpe 12:00: UNIT/ML [place] Human 100 n 100 00 AM Health UNT/ML Pen UNIT/M EDT Care) Injector L [NovoLog] NovoLog Flexpen 100 UNIT/ML 3 ML NovoLo 09/11/ active NovoLog eCW3 Insulin, g 2014 Flexpen 100 ([place] [facility] [place]art, Flexpe 12:00: UNIT/ML [place] Human 100 n 100 00 AM Health UNT/ML Pen UNIT/M EDT Care) Injector L [NovoLog] NovoLog Flexpen 100 UNIT/ML Digoxin Digoxi 09/11/ 1.0 active Digoxin 250 eCW3 0.25 MG n 250 2014 {tabl MCG ([place] Oral Tablet MCG 12:00: et} [place] Digoxin 250 00 AM Health [place] [facility] [place] EDT Care) 3 ML NovoLo 09/11/ active NovoLog eCW3 Insulin, g 2014 Flexpen 100 ([place] [facility] [place]art, Flexpe 12:00: UNIT/ML [place] Human 100 n 100 00 AM Health UNT/ML Pen UNIT/M EDT Care) Injector L [NovoLog] NovoLog Flexpen 100 UNIT/ML 3 ML NovoLo 09/11/ active NovoLog eCW3 Insulin, g 2014 Flexpen 100 ([place] [facility] [place]art, Flexpe 12:00: UNIT/ML [place] Human 100 n 100 00 AM Health UNT/ML Pen UNIT/M EDT Care) Injector L [NovoLog] NovoLog Flexpen 100 UNIT/ML 3 ML NovoLo 09/11/ active NovoLog eCW3 Insulin, g 2014 Flexpen 100 ([place] [facility] [place]art, Flexpe 12:00: UNIT/ML [place] Human 100 n 100 00 AM Health UNT/ML Pen UNIT/M EDT Care) Injector L [NovoLog] NovoLog Flexpen 100 UNIT/ML 3 ML NovoLo 09/11/ active NovoLog eCW3 Insulin, g 2014 Flexpen 100 ([place] [facility] [place]art, Flexpe 12:00: UNIT/ML [place] Human 100 n 100 00 AM Health UNT/ML Pen UNIT/M EDT Care) Injector L [NovoLog] NovoLog Flexpen 100 UNIT/ML 3 ML NovoLo 09/11/ active NovoLog eCW3 Insulin, g 2014 Flexpen 100 ([place] [facility] [place]art, Flexpe 12:00: UNIT/ML [place] Human 100 n 100 00 AM Health UNT/ML Pen UNIT/M EDT Care) Injector L [NovoLog] NovoLog Flexpen 100 UNIT/ML Digoxin Digoxi 09/11/ 1.0 active Digoxin 250 eCW3 0.25 MG n 250 2014 {tabl MCG ([place] Oral Tablet MCG 12:00: et} [place] Digoxin 250 00 AM Health MCG EDT Care) 3 ML NovoLo 09/11/ active 4-6 units eCW2 Insulin, g 2014 ([place] Aspart, Flexpe 12:00: [place] Human 100 n 100 00 AM Health UNT/ML Pen UNIT/M EDT Care) Injector L [NovoLog] NovoLog Flexpen 100 UNIT/ML 3 ML NovoLo 09/11/ active NovoLog eCW3 Insulin, g 2014 Flexpen 100 ([place] [facility] [place]art, Flexpe 12:00: UNIT/ML [place] Human 100 n 100 00 AM Health UNT/ML Pen UNIT/M EDT Care) Injector L [NovoLog] NovoLog Flexpen 100 UNIT/ML Digoxin Digoxi 05/27/ 1.0 active Digoxin 250 eCW3 0.25 MG n 250 2014 {tabl MCG ([place] Oral Tablet MCG 12:00: et} [place] Digoxin 250 00 AM [facility] EDT Care) Digoxin Digoxi 1.0 active Digoxin 250 eCW3 0.25 MG n 250 2014 {tabl MCG ([place] Oral Tablet MCG 12:00: et} [place] Digoxin 250 00 AM [facility] EDT Care) 3 ML NovoLo 09/11/ active NovoLog eCW3 Insulin, g 2014 Flexpen 100 ([place] [facility] [place]art, Flexpe 12:00: UNIT/ML [place] Human 100 n 100 00 AM Health UNT/ML Pen UNIT/M EDT Care) Injector L [NovoLog] NovoLog Flexpen 100 UNIT/ML Digoxin Digoxi 1.0 active Digoxin 250 eCW3 0.25 MG n 250 2014 {tabl MCG ([place] Oral Tablet MCG 12:00: et} [place] Digoxin 250 00 AM [facility] EDT Care) Digoxin Digoxi 1.0 active Digoxin 250 eCW3 0.25 MG n 250 2014 {tabl MCG ([place] Oral Tablet MCG 12:00: et} [place] Digoxin 250 00 AM [facility] EDT Care) 3 ML NovoLo 09/11/ active NovoLog eCW3 Insulin, g 2014 Flexpen 100 ([place] [facility] [place]art, Flexpe 12:00: UNIT/ML [place] Human 100 n 100 00 AM Health UNT/ML Pen UNIT/M EDT Care) Injector L [NovoLog] NovoLog Flexpen 100 UNIT/ML 3 ML NovoLo 09/11/ active NovoLog eCW3 Insulin, g 2014 Flexpen 100 ([place] [facility] [place], Flexpe 12:00: UNIT/ML [place] Human 100 n 100 00 AM Health UNT/ML Pen UNIT/M EDT Care) Injector L [NovoLog] NovoLog Flexpen 100 UNIT/ML 3 ML NovoLo 09/11/ active NovoLog eCW3 Insulin, g 2014 Flexpen 100 ([place] [facility] [place], Flexpe 12:00: UNIT/ML [place] Human 100 n 100 00 AM Health UNT/ML Pen UNIT/M EDT Care) Injector L [NovoLog] NovoLog Flexpen 100 UNIT/ML 3 ML NovoLo 09/11/ active NovoLog eCW3 Insulin, g 2014 Flexpen 100 ([place] [facility] [place], Flexpe 12:00: UNIT/ML [place] Human 100 n 100 00 AM Health UNT/ML Pen UNIT/M EDT Care) Injector L [NovoLog] NovoLog Flexpen 100 UNIT/ML 3 ML NovoLo 09/11/ active NovoLog eCW3 Insulin, g 2014 Flexpen 100 ([place] [facility] [place], Flexpe 12:00: UNIT/ML [place] Human 100 n 100 00 AM Health UNT/ML Pen UNIT/M EDT Care) Injector L [NovoLog] NovoLog Flexpen 100 UNIT/ML Digoxin Digoxi 1.0 active Digoxin 250 eCW3 0.25 MG n 250 2014 {tabl MCG ([place] Oral Tablet MCG 12:00: et} [place] Digoxin 250 00 AM [facility] EDT Care) Digoxin Digoxi 1.0 active Digoxin 250 eCW3 0.25 MG n 250 2014 {tabl MCG ([place] Oral Tablet MCG 12:00: et} [place] Digoxin 250 00 AM [facility] EDT Care) 3 ML NovoLo 09/11/ active NovoLog eCW3 Insulin, g 2014 Flexpen 100 (Hud son Aspart, Flexpe 12:00: UNIT/ML [place] Human 100 n 100 00 AM [facility] UNT/ML Pen UNIT/M EDT Care) Injector L [NovoLog] NovoLog Flexpen 100 UNIT/ML Digoxin Digoxi 1.0 active Digoxin 250 eCW3 0.25 MG n 250 2014 {tabl MCG ([place] Oral Tablet MCG 12:00: et} [place] Digoxin 250 00 AM [facility] EDT Care) 3 ML NovoLo 09/11/ active NovoLog eCW3 Insulin, g 2014 Flexpen 100 (Hud son Aspart, Flexpe 12:00: UNIT/ML [place] Human 100 n 100 00 AM [facility] UNT/ML Pen UNIT/M EDT Care) Injector L [NovoLog] NovoLog Flexpen 100 UNIT/ML Digoxin Digoxi 1.0 active Digoxin 250 eCW3 0.25 MG n 250 2014 {tabl MCG ([place] Oral Tablet MCG 12:00: et} [place] Digoxin 250 00 AM [facility] EDT Care) Digoxin Digoxi 1.0 active Digoxin 250 eCW3 0.25 MG n 250 2014 {tabl MCG ([place] Oral Tablet MCG 12:00: et} [place] Digoxin 250 00 AM [facility] EDT Care) Digoxin Digoxi 1.0 active Digoxin 250 eCW3 0.25 MG n 250 2014 {tabl MCG ([place] Oral Tablet MCG 12:00: et} [place] Digoxin 250 00 AM [facility] EDT Care) 3 ML NovoLo 09/11/ active NovoLog eCW3 Insulin, g 2014 Flexpen 100 (Hud son Aspart, Flexpe 12:00: UNIT/ML [place] Human 100 n 100 00 AM [facility] UNT/ML Pen UNIT/ EDT Care) Injector L [NovoLog] NovoLog Flexpen 100 UNIT/ML Digoxin Digoxi 1.0 active Digoxin 250 eCW3 0.25 MG n 250 2014 {tabl MCG ([facility] Oral Tablet MCG 12:00: et} [place] Digoxin 250 00 AM [facility] EDT Care) 3 ML NovoLo 09/11/ active NovoLog eCW3 Insulin, g 2014 Flexpen 100 (Hud son Aspart, Flexpe 12:00: UNIT/ML [place] Human 100 n 100 00 AM [facility] UNT/ML Pen UNIT/ EDT Care) Injector L [NovoLog] NovoLog Flexpen 100 UNIT/ML Digoxin Digoxi 1.0 active Digoxin 250 eCW3 0.25 MG n 250 2014 {tabl MCG ([facility] Oral Tablet MCG 12:00: et} [place] Digoxin 250 00 AM [facility] EDT Care) Digoxin Digoxi 1.0 active Digoxin 250 eCW3 0.25 MG n 250 2014 {tabl MCG ([facility] Oral Tablet MCG 12:00: et} [place] Digoxin 250 00 AM [facility] EDT Care) Digoxin Digoxi 1.0 active Digoxin 250 eCW3 0.25 MG n 250 2014 {tabl MCG ([facility] Oral Tablet MCG 12:00: et} [place] Digoxin 250 00 AM [facility] EDT Care) Digoxin Digoxi 1.0 active Digoxin 250 eCW3 0.25 MG n 250 2014 {tabl MCG ([facility] Oral Tablet MCG 12:00: et} [place] Digoxin 250 00 AM [facility] EDT Care) Digoxin Digoxi 1.0 active Digoxin 250 eCW3 0.25 MG n 250 2014 {tabl MCG ([facility] Oral Tablet MCG 12:00: et} [place] Digoxin 250 00 AM [facility] EDT Care) Digoxin Digoxi 1.0 active Digoxin 250 eCW3 0.25 MG n 250 2014 {tabl MCG ([facility] Oral Tablet MCG 12:00: et} [place] Digoxin 250 00 AM [facility] EDT Care) Digoxin Digoxi 1.0 active Digoxin 250 eCW3 0.25 MG n 250 2014 {tabl MCG ([facility] Oral Tablet MCG 12:00: et} [place] Digoxin 250 00 AM [facility] EDT Care) 3 ML NovoLo 09/11/ active NovoLog eCW3 Insulin, g 2014 Flexpen 100 (Hud son Aspart, Flexpe 12:00: UNIT/ML [place] Human 100 n 100 00 AM [facility] UNT/ML Pen UNIT/M EDT Care) Injector L [NovoLog] NovoLog Flexpen 100 UNIT/ML Digoxin Digoxi 1.0 active Digoxin 250 eCW3 0.25 MG n 250 2014 {tabl MCG ([facility] Oral Tablet MCG 12:00: et} [place] Digoxin 250 00 AM [facility] EDT Care) 3 ML NovoLo 09/11/ active NovoLog eCW3 Insulin, g 2014 Flexpen 100 (Hud son Aspart, Flexpe 12:00: UNIT/ML [place] Human 100 n 100 00 AM [facility] UNT/ML Pen UNIT/M EDT Care) Injector L [NovoLog] NovoLog Flexpen 100 UNIT/ML Digoxin Digoxi 1.0 active Digoxin 250 eCW3 0.25 MG n 250 2014 {tabl MCG ([facility] Oral Tablet MCG 12:00: et} [place] Digoxin 250 00 AM [facility] EDT Care) Digoxin Digoxi 1.0 active Digoxin 250 eCW3 0.25 MG n 250 2014 {tabl MCG ([facility] Oral Tablet MCG 12:00: et} [place] Digoxin 250 00 AM [facility] EDT Care) 3 ML NovoLo 09/11/ active NovoLog eCW3 Insulin, g 2014 Flexpen 100 (H[facility] son Aspart, Flexpe 12:00: UNIT/ML [place] Human 100 n 100 00 AM [facility] UNT/ML Pen UNIT/M EDT Care) Injector L [NovoLog] NovoLog Flexpen 100 UNIT/ML 3 ML NovoLo 09/11/ active NovoLog eCW3 Insulin, g 2014 Flexpen 100 (Hud son Aspart, Flexpe 12:00: UNIT/ML [place] Human 100 n 100 00 AM [facility] UNT/ML Pen UNIT/M EDT Care) Injector L [NovoLog] NovoLog Flexpen 100 UNIT/ML 3 ML NovoLo 09/11/ active NovoLog eCW3 Insulin, g 2014 Flexpen 100 ([facility] son Aspart, Flexpe 12:00: UNIT/ML [place] Human 100 n 100 00 AM [facility] UNT/ML Pen UNIT/M EDT Care) Injector L [NovoLog] NovoLog Flexpen 100 UNIT/ML Digoxin Digoxi 1.0 active Digoxin 250 eCW3 0.25 MG n 250 2014 {tabl MCG ([facility] Oral Tablet MCG 12:00: et} [place] Digoxin 250 00 AM [facility] EDT Care) 3 ML NovoLo 09/11/ active NovoLog eCW3 Insulin, g 2014 Flexpen 100 ([facility] son Aspart, Flexpe 12:00: UNIT/ML [place] Human 100 n 100 00 AM [facility] UNT/ML Pen UNIT/M EDT Care) Injector L [NovoLog] NovoLog Flexpen 100 UNIT/ML Digoxin Digoxi 1.0 active Digoxin 250 eCW3 0.25 MG n 250 2014 {tabl MCG ([facility] Oral Tablet MCG 12:00: et} [place] Digoxin 250 00 AM [facility] EDT Care) 3 ML NovoLo 09/11/ active NovoLog eCW3 Insulin, g 2014 Flexpen 100 (Hud son Aspart, Flexpe 12:00: UNIT/ML [place] Human 100 n 100 00 AM [facility] UNT/ML Pen UNIT/M EDT Care) Injector L [NovoLog] NovoLog Flexpen 100 UNIT/ML 3 ML NovoLo 09/11/ active NovoLog eCW3 Insulin, g 2014 Flexpen 100 (Hud son Aspart, Flexpe 12:00: UNIT/ML [place] Human 100 n 100 00 AM [facility] UNT/ML Pen UNIT/M EDT Care) Injector L [NovoLog] NovoLog Flexpen 100 UNIT/ML Digoxin Digoxi 1.0 active Digoxin 250 eCW3 0.25 MG n 250 2014 {tabl MCG ([facility] Oral Tablet MCG 12:00: et} [place] Digoxin 250 00 AM [facility] EDT Care) Digoxin Digoxi 09/11/ 1.0 active Digoxin 250 eCW3 0.25 MG n 250 2014 {tabl MCG ([facility] Oral Tablet MCG 12:00: et} [place] Digoxin 250 00 AM [facility] MCG EDT Care) Digoxin Digoxi 09/11/ 1.0 active Digoxin 250 eCW3 0.25 MG n 250 2014 {tabl MCG ([facility] Oral Tablet MCG 12:00: et} [place] Digoxin 250 00 AM [facility] EDT Care) Digoxin Digoxi 09/11/ active 1 tablet eC W2 0.25 MG n 250 2014 ([facility] Oral Tablet MCG 12:00: [place] Digoxin 250 00 AM [facility] EDT Care) 3 ML NovoLo 09/11/ active NovoLog eCW3 Insulin, g 2014 Flexpen 100 (Hud son Aspart, Flexpe 12:00: UNIT/ML [place] Human 100 n 100 00 AM [facility] UNT/ML Pen UNIT/M EDT Care) Injector L [NovoLog] NovoLog Flexpen 100 UNIT/ML 3 ML NovoLo 09/11/ active NovoLog eCW3 Insulin, g 2014 Flexpen 100 (H[facility] son Aspart, Flexpe 12:00: UNIT/ML [place] Human 100 n 100 00 AM [facility] UNT/ML Pen UNIT/M EDT Care) Injector L [NovoLog] NovoLog Flexpen 100 UNIT/ML 3 ML NovoLo 09/11/ active NovoLog eCW3 Insulin, g 2014 Flexpen 100 ([facility] son Aspart, Flexpe 12:00: UNIT/ML [place] Human 100 n 100 00 AM [facility] UNT/ML Pen UNIT/M EDT Care) Injector L [NovoLog] NovoLog Flexpen 100 UNIT/ML 3 ML NovoLo 09/11/ active NovoLog eCW3 Insulin, g 2014 Flexpen 100 ([facility] son Aspart, Flexpe 12:00: UNIT/ML [place] Human 100 n 100 00 AM [facility] UNT/ML Pen UNIT/M EDT Care) Injector L [NovoLog] NovoLog Flexpen 100 UNIT/ML Furosemide Furose 1.0 active Furosemi de eCW3 40 MG Oral mide 2014 {tabl 40 MG ([facility] Tablet 40 MG 12:00: et} [place] 00 AM [facility] EDT Care) Furosemide Furose 1.0 active Furosemi de eCW3 40 MG Oral mide 2014 {tabl 40 MG ([facility] Tablet 40 MG 12:00: et} [facility] 00 AM [facility] EDT Care) Furosemide Furose 1.0 active Furosemi de eCW3 40 MG Oral mide 2014 {tabl 40 MG ([facility] Tablet 40 MG 12:00: et} [place] 00 AM [facility] EDT Care) Furosemide Furose 1.0 active Furosemi de eCW3 40 MG Oral mide 2014 {tabl 40 MG ([facility] Tablet 40 MG 12:00: et} [place] 00 AM [facility] EDT Care) 3 ML Lantus 08/07/ active Lantus eCW3 Insulin SoloSt 2015 SoloStar 100 ([facility] udson Glargine ar 100 12:00: UNIT/ML [facility] r 100 UNT/ML UNIT/M 00 AM [facility] EDT Care) Injector [Lantus] Lantus SoloStar 100 UNIT/ML Furosemide Furose 1.0 active Furosemi de eCW3 40 MG Oral mide 2014 {tabl 40 MG ([facility] Tablet 40 MG 12:00: et} [place] 00 AM [facility] EDT Care) Furosemide Furose .0 active Furosemi de eCW3 40 MG Oral mide 2014 {tabl 40 MG ([facility] Tablet 40 MG 12:00: et} [place] 00 AM [facility] EDT Care) Furosemide Furose 1.0 active Furosemi de eCW3 20 MG Oral mide 2014 {tabl 20 mg ([facility] Tablet 20 mg 12:00: et} [place] Furosemide 00 AM [facility] 20 EDT Care) Furosemide Furose 1.0 active Furosemi de eCW3 40 MG Oral mide 2014 {tabl 40 MG ([facility] Tablet 40 MG 12:00: et} [place] 00 AM [facility] EDT Care) Furosemide Furose 1.0 active Furosemi de eCW3 40 MG Oral mide 2014 {tabl 40 MG ([facility] Tablet 40 MG 12:00: et} [place] 00 AM [facility] EDT Care) Aspirin 81 Aspiri 1.0 active Aspirin 81 eCW3 MG Chewable n 81 2014 {tabl mg ([facility] Tablet mg 12:00: et} [place] Aspirin 81 00 AM [facility] EDT Care) Furosemide Furose 1.0 active Furosemi de eCW3 40 MG Oral mide 2014 {tabl 40 MG ([facility] Tablet 40 MG 12:00: et} [place] 00 AM [facility] EDT Care) Aspirin 81 Aspiri 1.0 active Aspirin 81 eCW3 MG Chewable n 81 2014 {tabl mg ([facility] Tablet mg 12:00: et} [place] Aspirin 81 00 AM [facility] EDT Care) Furosemide Furose 1.0 active Furosemi de eCW3 40 MG Oral mide 2014 {tabl 40 MG ([facility] Tablet 40 MG 12:00: et} [place] 00 [facility] EDT Care) Furosemide Furose 1.0 active Furosemi de eCW3 20 MG Oral mide 2014 {tabl 20 mg ([facility] Tablet 20 mg 12:00: et} [place] Furosemide 00 AM [facility] 20 EDT Care) Aspirin 81 Aspiri 08/07/ active 1 tablet eCW2 MG Chewable n 81 2014 ([facility] Tablet mg 12:00: [place] Aspirin 81 00 AM [facility] EDT Care) Furosemide Furose 1.0 active Furosemi de eCW3 40 MG Oral mide 2014 {tabl 40 MG ([facility] Tablet 40 MG 12:00: et} [place] [facility] EDT Care) Furosemide Furose 1.0 active Furosemi de eCW3 40 MG Oral mide 2014 {tabl 40 MG ([facility] Tablet 40 MG 12:00: et} [place] [facility] EDT Care) Furosemide Furose 1.0 active Furosemi de eCW3 40 MG Oral mide 2014 {tabl 40 MG ([facility] Tablet 40 MG 12:00: et} [place] 00 [facility] EDT Care) Furosemide Furose 1.0 active Furosemi de eCW3 40 MG Oral mide 2014 {tabl 40 MG ([facility] Tablet 40 MG 12:00: et} [place] [facility] EDT Care) 3 ML Lantus 08/07/ active Lantus eCW3 Insulin SoloSt 2015 SoloStar 100 (H udson Glargine ar 100 12:00: unit/ml [facility] 100 UNT/ML unit/m 00 [facility] EDT [facility]) Injector [Lantus] Lantus SoloStar 100 unit/ml Furosemide Furose 1.0 active Furosemi de eCW3 40 MG Oral mide 2014 {tabl 40 MG ([facility] Tablet 40 MG 12:00: et} [place] [facility] EDT Care) Furosemide Furose 1.0 active Furosemi de eCW3 40 MG Oral mide 2014 {tabl 40 MG ([facility] Tablet 40 MG 12:00: et} [place] [facility] EDT Care) Furosemide Furose 1.0 active Furosemi de eCW3 40 MG Oral mide 2014 {tabl 40 MG ([facility] Tablet 40 MG 12:00: et} [place] [facility] EDT Care) Aspirin 81 Aspiri 1.0 active Aspirin 81 eCW3 MG Chewable n 81 2014 {tabl mg ([facility] Tablet mg 12:00: et} [place] Aspirin 81 00 AM [facility] EDT Care) Furosemide Furose 1.0 active Furosemi de eCW3 20 MG Oral mide 2014 {tabl 20 mg ([facility] Tablet 20 mg 12:00: et} [place] Furosemide 00 AM [facility] 20 mg EDT Care) Furosemide Furose 1.0 active Furosemi de eCW3 40 MG Oral mide 2014 {tabl 40 MG ([facility] Tablet 40 MG 12:00: et} [place] [facility] EDT Care) Furosemide Furose 1.0 active Furosemi de eCW3 40 MG Oral mide 2014 {tabl 40 MG ([facility] Tablet 40 MG 12:00: et} [place] [facility] EDT Care) Furosemide Furose 1.0 active Furosemi de eCW3 40 MG Oral mide 2014 {tabl 40 MG ([facility] Tablet 40 MG 12:00: et} [place] [facility] EDT Care) Furosemide Furose 08/07/ active 1 tablet eCW2 20 MG Oral mide 2014 ([facility] Tablet 20 mg 12:00: [place] Furosemide 00 AM [facility] 20 mg EDT Care) Furosemide Furose 1.0 active Furosemi de eCW3 40 MG Oral mide 2014 {tabl 40 MG ([facility] Tablet 40 MG 12:00: et} [place] [facility] EDT Care) Furosemide Furose 1.0 active Furosemi de eCW3 40 MG Oral mide 2014 {tabl 40 MG ([facility] Tablet 40 MG 12:00: et} [facility] EDT Care) Furosemide Furose 04/22/ 1.0 active Furosemi de eCW3 40 MG Oral mide 2014 {tabl 40 MG ([facility] Tablet 40 MG 12:00: et} [place] AM [facility] EDT Care) Furosemide Furose 1.0 active Furosemi de eCW3 40 MG Oral mide 2014 {tabl 40 MG ([facility] Tablet 40 MG 12:00: et} [place] AM [facility] EDT Care) Furosemide Furose 1.0 active Furosemi de eCW3 40 MG Oral mide 2014 {tabl 40 MG ([facility] Tablet 40 MG 12:00: et} [place] AM [facility] EDT Care) Furosemide Furose 1.0 active Furosemi de eCW3 40 MG Oral mide 2014 {tabl 40 MG ([facility] Tablet 40 MG 12:00: et} [place] [facility] EDT Care) 3 ML Lantus 08/07/ active Lantus eCW3 Insulin SoloSt 2014 SoloStar 100 ([facility]son Glargine ar 100 12:00: unit/ml [facility] 100 UNT/ML unit/m [facility] EDT [facility]) Injector [Lantus] Lantus SoloStar 100 unit/ml Furosemide Furose 1.0 active Furosemi de eCW3 40 MG Oral mide 2014 {tabl 40 MG ([facility] Tablet 40 MG 12:00: et} [place] [facility] EDT Care) Furosemide Furose 1.0 active Furosemi de eCW3 40 MG Oral mide 2014 {tabl 40 MG ([facility] Tablet 40 MG 12:00: et} [place] [facility] EDT Care) 3 ML Lantus 08/07/ active Lantus eCW3 Insulin SoloSt 2014 SoloStar 100 ([facility] Glargine ar 100 12:00: unit/ml [facility] 100 UNT/ML unit/m 00 AM [facility] EDT [facility]) Injector [Lantus] Lantus SoloStar 100 unit/ml Furosemide Furose 1.0 active Furosemi de eCW3 40 MG Oral mide 2014 {tabl 40 MG ([facility] Tablet 40 MG 12:00: et} [place] AM [facility] EDT Care) 3 ML Lantus 08/07/ active as directed eC W2 Insulin SoloSt 2014 ([facility] Glargine ar 100 12:00: [place] 100 UNT/ML unit/m 00 AM [facility] Pen l EDT Care) Injector [Lantus] Lantus SoloStar 100 unit/ml Albuterol Ipratr /25/ 3.0 suspend Ipratrop ium- eCW3 0.833 MG/ML opium- 2014 {ml} ed Albuterol ( [facility] / [place] 12:00: 0.5-2.5 (3) [facility] Ipratropium rol 00 AM MG/3ML [facility] [place] 0.[facility]2. EDT Care) 0.167 MG/ML 5 (3) Inhalant MG/3ML Solution Ipratropium -Albuterol 0.5-2.5 (3) MG/3ML Albuterol Ipratr 07/10/ 3.0 suspend Ipratrop ium- eCW3 0.833 MG/ML opium- 2014 {ml} ed Albuterol ( [facility] / [place] 12:00: 0.5-2.5 (3) [place] Ipratropium rol 00 AM MG/3ML [facility] [place] 0.5-2. EDT Care) 0.167 MG/ML 5 (3) Inhalant MG/3ML Solution Ipratropium -Albuterol 0.5-2.5 (3) MG/3ML Albuterol Ipratr 07/10/ 3.0 suspend Ipratrop ium- eCW3 0.833 MG/ML opium- 2014 {ml} ed Albuterol ( [facility] / [place] 12:00: 0.5-2.5 (3) [place] Ipratropium rol 00 AM MG/3ML [facility] [place] 0.5-2. EDT Care) 0.167 MG/ML 5 (3) Inhalant MG/3ML Solution Ipratropium -Albuterol 0.5-2.5 (3) MG/3ML Albuterol Ipratr 07/10/ suspend 3 ml eCW 2 0.833 MG/ML opium- 2014 ed ([facility] / [place] 12:00: [place] Ipratropium rol 00 AM [facility] [place] 0.5-2. EDT Care) 0.167 MG/ML 5 (3) Inhalant MG/3ML Solution Ipratropium -Albuterol 0.5-2.5 (3) MG/3ML Albuterol Ipratr 07/10/ 3.0 suspend Ipratrop ium- eCW3 0.833 MG/ML opium- 2014 {ml} ed Albuterol ( [facility] / [place] 12:00: 0.5-2.5 (3) [place] Ipratropium rol 00 AM MG/3ML [facility] [place] 0.5-2. EDT Care) 0.167 MG/ML 5 (3) Inhalant MG/3ML Solution Ipratropium -Albuterol 0.5-2.5 (3) MG/3ML Albuterol Ipratr 07/10/ 3.0 suspend Ipratrop ium- eCW3 0.833 MG/ML opium- 2014 {ml} ed Albuterol ( [facility] / [place] 12:00: 0.5-2.5 (3) [place] Ipratropium rol 00 AM MG/3ML [facility] [place] 0.5-2. EDT Care) 0.167 MG/ML 5 (3) Inhalant MG/3ML Solution Ipratropium -Albuterol 0.5-2.5 (3) MG/3ML Albuterol Ipratr 07/10/ 3.0 suspend Ipratrop ium- eCW3 0.833 MG/ML opium- 2014 {ml} ed Albuterol ( [place] / [place] 12:00: 0.5-2.5 (3) [place] Ipratropium rol 00 AM MG/3ML [facility] [place] 0.5-2. EDT Care) 0.167 MG/ML 5 (3) Inhalant MG/3ML Solution Ipratropium -Albuterol 0.5-2.5 (3) MG/3ML Albuterol Ipratr 07/10/ 3.0 suspend Ipratrop ium- eCW3 0.833 MG/ML opium- 2014 {ml} ed Albuterol ( [facility] / [place] 12:00: 0.5-2.5 (3) [place] Ipratropium rol 00 AM MG/3ML [facility] [place] 0.5-2. EDT Care) 0.167 MG/ML 5 (3) Inhalant MG/3ML Solution Ipratropium -Albuterol 0.5-2.5 (3) MG/3ML Albuterol Ipratr // 3.0 suspend Ipratrop ium- eCW3 0.833 MG/ML opium- 2015 {ml} ed Albuterol ( [facility] / [place] 12:00: 0.5-2.5 (3) [place] Ipratropium rol 00 AM MG/3ML [facility] [place] 0.5-2. EDT Care) 0.167 MG/ML 5 (3) Inhalant MG/3ML Solution Ipratropium -Albuterol 0.5-2.5 (3) MG/3ML Albuterol Ipratr 07/10/ 3.0 suspend Ipratrop ium- eCW3 0.833 MG/ML opium- 2014 {ml} ed Albuterol ( [facility] / [place] 12:00: 0.5-2.5 (3) [place] Ipratropium rol 00 AM MG/3ML [facility] [place] 0.5-2. EDT Care) 0.167 MG/ML 5 (3) Inhalant MG/3ML Solution Ipratropium -Albuterol 0.5-2.5 (3) MG/3ML Albuterol Ipratr 07/10/ 3.0 suspend Ipratrop ium- eCW3 0.833 MG/ML opium- 2014 {ml} ed Albuterol ( [facility] / [place] 12:00: 0.5-2.5 (3) [place] Ipratropium rol 00 AM MG/3ML [facility] [place] 0.5-2. EDT Care) 0.167 MG/ML 5 (3) Inhalant MG/3ML Solution Ipratropium -Albuterol 0.5-2.5 (3) MG/3ML Albuterol Ipratr 25/ 3.0 suspend Ipratrop ium- eCW3 0.833 MG/ML opium- 2014 {ml} ed Albuterol ( [facility] / [place] 12:00: 0.5-2.5 (3) [place] [place] Ipratropium rol 00 AM MG/3ML [facility] [place] 0.5-2. EDT Care) 0.167 MG/ML 5 (3) Inhalant MG/3ML Solution Ipratropium -Albuterol 0.5-2.5 (3) MG/3ML Albuterol Ipratr /25/ 3.0 suspend Ipratrop ium- eCW3 0.833 MG/ML opium- 2014 {ml} ed Albuterol ( [facility] / [place] 12:00: 0.5-2.5 (3) [place] Ipratropium rol 00 AM MG/3ML [facility] [place] 0.5-2. EDT Care) 0.167 MG/ML 5 (3) Inhalant MG/3ML Solution Ipratropium -Albuterol 0.5-2.5 (3) MG/3ML Albuterol Ipratr 07/10/ 3.0 suspend Ipratrop ium- eCW3 0.833 MG/ML opium- 2014 {ml} ed Albuterol ( [facility] / [place] 12:00: 0.5-2.5 (3) [place] Ipratropium rol 00 AM MG/3ML [facility] [place] 0.5-2. EDT Care) 0.167 MG/ML 5 (3) Inhalant MG/3ML Solution Ipratropium -Albuterol 0.5-2.5 (3) MG/3ML Albuterol Ipratr 07/10/ 3.0 suspend Ipratrop ium- eCW3 0.833 MG/ML opium- 2014 {ml} ed Albuterol ( [facility] / [place] 12:00: 0.5-2.5 (3) [place] Ipratropium rol 00 AM MG/3ML [facility] [place] 0.5-2. EDT Care) 0.167 MG/ML 5 (3) Inhalant MG/3ML Solution Ipratropium -Albuterol 0.5-2.5 (3) MG/3ML Albuterol Ipratr 25/ 3.0 suspend Ipratrop ium- eCW3 0.833 MG/ML opium- 2014 {ml} ed Albuterol ( [facility] / [place] 12:00: 0.5-2.5 (3) [place] Ipratropium rol 00 AM MG/3ML [facility] [place] 0.5-2. EDT Care) 0.167 MG/ML 5 (3) Inhalant MG/3ML Solution Ipratropium -Albuterol 0.5-2.5 (3) MG/3ML Albuterol Ipratr 03/25/ 3.0 suspend Ipratrop ium- eCW3 0.833 MG/ML opium- 2014 {ml} ed Albuterol ( [facility] / [place] 12:00: 0.5-2.5 (3) [place] Ipratropium rol 00 AM MG/3ML [facility] [place] 0.5-2. EDT Care) 0.167 MG/ML 5 (3) Inhalant MG/3ML Solution Ipratropium -Albuterol 0.5-2.5 (3) MG/3ML Albuterol Ipratr 07/10/ 3.0 suspend Ipratrop ium- eCW3 0.833 MG/ML opium- 2014 {ml} ed Albuterol ( [facility] / [place] 12:00: 0.5-2.5 (3) [facility] Ipratropium rol 00 AM MG/3ML [facility] [place] 0.5-2. EDT Care) 0.167 MG/ML 5 (3) Inhalant MG/3ML Solution Ipratropium -Albuterol 0.5-2.5 (3) MG/3ML Albuterol Ipratr 07/10/ 3.0 suspend Ipratrop ium- eCW3 0.833 MG/ML opium- 2014 {ml} ed Albuterol ( [facility] / [place] 12:00: 0.5-2.5 (3) [facility] Ipratropium rol 00 AM MG/3ML [facility] [place] 0.5-2. EDT Care) 0.167 MG/ML 5 (3) Inhalant MG/3ML Solution Ipratropium -Albuterol 0.5-2.5 (3) MG/3ML Albuterol Ipratr 03/25/ 3.0 suspend Ipratrop ium- eCW3 0.833 MG/ML opium- 2014 {ml} ed Albuterol ( [facility] / [place] 12:00: 0.5-2.5 (3) [facility] Ipratropium rol 00 AM MG/3ML [facility] [place] 0.5-2. EDT Care) 0.167 MG/ML 5 (3) Inhalant MG/3ML Solution Ipratropium -Albuterol 0.5-2.5 (3) MG/3ML Albuterol Ipratr 03/25/ 3.0 suspend Ipratrop ium- eCW3 0.833 MG/ML opium- 2014 {ml} ed Albuterol ( [facility] / [place] 12:00: 0.5-2.5 (3) [facility] Ipratropium rol 00 AM MG/3ML [facility] [place] 0.5-2. EDT Care) 0.167 MG/ML 5 (3) Inhalant MG/3ML Solution Ipratropium -Albuterol 0.5-2.5 (3) MG/3ML Albuterol Ipratr 07/10/ 3.0 suspend Ipratrop ium- eCW3 0.833 MG/ML opium- 2014 {ml} ed Albuterol ( [facility] / [place] 12:00: 0.5-2.5 (3) [facility] Ipratropium rol 00 AM MG/3ML [facility] [place] 0.5-2. EDT Care) 0.167 MG/ML 5 (3) Inhalant MG/3ML Solution Ipratropium -Albuterol 0.5-2.5 (3) MG/3ML Albuterol Ipratr 25/ 3.0 suspend Ipratrop ium- eCW3 0.833 MG/ML opium- 2014 {ml} ed Albuterol ( [facility] / [place] 12:00: 0.5-2.5 (3) [facility] Ipratropium rol 00 AM MG/3ML [facility] [place] 0.5-2. EDT Care) 0.167 MG/ML 5 (3) Inhalant MG/3ML Solution Ipratropium -Albuterol 0.5-2.5 (3) MG/3ML Albuterol Ipratr /25/ 3.0 suspend Ipratrop ium- eCW3 0.833 MG/ML opium- 2014 {ml} ed Albuterol ( [facility] / [place] 12:00: 0.5-2.5 (3) [facility] Ipratropium rol 00 AM MG/3ML [facility] [place] 0.5-2. EDT Care) 0.167 MG/ML 5 (3) Inhalant MG/3ML Solution Ipratropium -Albuterol 0.5-2.5 (3) MG/3ML Albuterol Ipratr /25/ 3.0 suspend Ipratrop ium- eCW3 0.833 MG/ML opium- 2014 {ml} ed Albuterol ( [place] / [place] 12:00: 0.5-2.5 (3) [place] Ipratropium rol 00 AM MG/3ML [facility] [place] 0.5-2. EDT Care) 0.167 MG/ML 5 (3) Inhalant MG/3ML Solution Ipratropium -Albuterol 0.5-2.5 (3) MG/3ML Albuterol Ipratr 07/10/ 3.0 suspend Ipratrop ium- eCW3 0.833 MG/ML opium- 2014 {ml} ed Albuterol ( [place] / [place] 12:00: 0.5-2.5 (3) [facility] Ipratropium rol 00 AM MG/3ML [facility] [place] 0.5-2. EDT Care) 0.167 MG/ML 5 (3) Inhalant MG/3ML Solution Ipratropium -Albuterol 0.5-2.5 (3) MG/3ML Albuterol Ipratr 07/10/ 3.0 suspend Ipratrop ium- eCW3 0.833 MG/ML opium- 2014 {ml} ed Albuterol ( [place] / [place] 12:00: 0.5-2.5 (3) [facility] Ipratropium rol 00 AM MG/3ML [facility] [place] 0.5-2. EDT Care) 0.167 MG/ML 5 (3) Inhalant MG/3ML Solution Ipratropium -Albuterol 0.5-2.5 (3) MG/3ML Albuterol Ipratr 25/ 3.0 suspend Ipratrop ium- eCW3 0.833 MG/ML opium- 2015 {ml} ed Albuterol ( [place] / [place] 12:00: 0.5-2.5 (3) [facility] Ipratropium rol 00 AM MG/3ML [facility] [place] 0.5-2. EDT Care) 0.167 MG/ML 5 (3) Inhalant MG/3ML Solution Ipratropium -Albuterol 0.5-2.5 (3) MG/3ML Albuterol Ipratr /25/ 3.0 suspend Ipratrop ium- eCW3 0.833 MG/ML opium- 2015 {ml} ed Albuterol ( [place] / [place] 12:00: 0.5-2.5 (3) Rive r Ipratropium rol 00 AM MG/3ML [facility] [place] 0.5-2. EDT Care) 0.167 MG/ML 5 (3) Inhalant MG/3ML Solution Ipratropium -Albuterol 0.5-2.5 (3) MG/3ML Albuterol Ipratr /25/ 3.0 suspend Ipratrop ium- eCW3 0.833 MG/ML opium- 2015 {ml} ed Albuterol ( [place] / [place] 12:00: 0.5-2.5 (3) Rive r Ipratropium rol 00 AM MG/3ML [facility] [place] 0.5-2. EDT Care) 0.167 MG/ML 5 (3) Inhalant MG/3ML Solution Ipratropium -Albuterol 0.5-2.5 (3) MG/3ML Albuterol Ipratr /25/ 3.0 suspend Ipratrop ium- eCW3 0.833 MG/ML opium- 2015 {ml} ed Albuterol ( [place] / [place] 12:00: 0.5-2.5 (3) Rive r Ipratropium rol 00 AM MG/3ML [facility] [place] 0.5-2. EDT Care) 0.167 MG/ML 5 (3) Inhalant MG/3ML Solution Ipratropium -Albuterol 0.5-2.5 (3) MG/3ML Albuterol Ipratr 03/25/ 3.0 suspend Ipratrop ium- eCW3 0.833 MG/ML opium- 2015 {ml} ed Albuterol ( [place] / [place] 12:00: 0.5-2.5 (3) Rive r Ipratropium rol 00 AM MG/3ML [facility] [place] 0.5-2. EDT Care) 0.167 MG/ML 5 (3) Inhalant MG/3ML Solution Ipratropium -Albuterol 0.5-2.5 (3) MG/3ML Albuterol Ipratr 25/ 3.0 suspend Ipratrop ium- eCW3 0.833 MG/ML opium- 2015 {ml} ed Albuterol ( [place] / [place] 12:00: 0.5-2.5 (3) Rive r Ipratropium rol 00 AM MG/3ML [facility] [place] 0.5-2. EDT Care) 0.167 MG/ML 5 (3) Inhalant MG/3ML Solution Ipratropium -Albuterol 0.5-2.5 (3) MG/3ML Nebulizer 1 UNK 10/15/ suspend Nebulize r 1 eCW3 2013 ed ([place] 12:00: [place] [facility] EDT Care) Nebulizer 1 UNK 10/15/ suspend Nebulize r 1 eCW3 2013 ed ([place] 12:00: [place] 00 [facility] EDT Care) Nebulizer 1 UNK 10/15/ suspend Nebulize r 1 eCW3 2013 ed ([place] 12:00: [place] 00 [facility] EDT Care) Nebulizer 1 UNK 10/15/ suspend Nebulize r 1 eCW3 2013 ed ([place] 12:00: [place] 00 [facility] EDT Care) Nebulizer 1 UNK 10/15/ suspend Nebulize r 1 eCW3 2013 ed ([place] 12:00: [place] 00 [facility] EDT Care) Nebulizer 1 UNK 10/15/ suspend Nebulize r 1 eCW3 2014 ed ([place] 12:00: [place] 00 [facility] EDT Care) Nebulizer 1 UNK 10/15/ suspend Nebulize r 1 eCW3 2013 ed ([place] 12:00: [place] 00 [facility] EDT Care) Nebulizer 1 UNK 10/15/ suspend Nebulize r 1 eCW3 2013 ed ([place] 12:00: [place] 00 [facility] EDT Care) Nebulizer 1 UNK 10/15/ suspend Nebulize r 1 eCW3 2013 ed ([place] 12:00: [place] 00 [facility] EDT Care) Nebulizer 1 UNK 10/15/ suspend as direc [place] eCW2 2013 ed ([place] 12:00: [place] 00 [facility] EDT Care) Nebulizer 1 UNK 10/15/ suspend Nebulize r 1 eCW3 2013 ed ([place] 12:00: [place] 00 [facility] EDT Care) Nebulizer 1 UNK 10/15/ suspend Nebulize r 1 eCW3 2013 ed ([place] 12:00: [place] 00 [facility] EDT Care) Nebulizer 1 UNK 10/15/ suspend Nebulize r 1 eCW3 2013 ed ([place] 12:00: [place] 00 [facility] EDT Care) Nebulizer 1 UNK 10/15/ suspend Nebulize r 1 eCW3 2013 ed ([place] 12:00: [place] 00 [facility] EDT Care) Nebulizer 1 UNK 10/15/ suspend Nebulize r 1 eCW3 2013 ed ([place] 12:00: [place] 00 [facility] EDT Care) Nebulizer 1 UNK 10/15/ suspend Nebulize r 1 eCW3 2013 ed ([place] 12:00: [place] 00 [facility] EDT Care) Nebulizer 1 UNK 10/15/ suspend Nebulize r 1 eCW3 2013 ed ([place] 12:00: [place] 00 [facility] EDT Care) Nebulizer 1 UNK 10/15/ suspend Nebulize r 1 eCW3 2013 ed ([place] 12:00: [place] 00 [facility] EDT Care) Nebulizer 1 UNK 10/15/ suspend Nebulize r 1 eCW3 2013 ed ([place] 12:00: [place] 00 [facility] EDT Care) Nebulizer 1 UNK 10/15/ suspend Nebulize r 1 eCW3 2013 ed ([place] 12:00: [facility] 00 AM [facility] EDT [facility]) Nebulizer 1 UNK 10/15/ suspend Nebulize r 1 eCW3 2013 ed ([place] 12:00: [place] 00 AM [facility] EDT Care) Nebulizer 1 UNK 10/15/ suspend Nebulize r 1 eCW3 2014 ed ([place] 12:00: [facility] 00 AM [facility] EDT Care) Nebulizer 1 UNK 10/15/ suspend Nebulize r 1 eCW3 2014 ed ([place] 12:00: [facility] 00 AM [facility] EDT Care) Nebulizer 1 UNK 10/15/ suspend Nebulize r 1 eCW3 2014 ed ([place] 12:00: [facility] 00 AM [facility] EDT Care) Nebulizer 1 UNK 10/15/ suspend Nebulize r 1 eCW3 2014 ed ([place] 12:00: [place] 00 AM [facility] EDT Care) Nebulizer 1 UNK 10/15/ suspend Nebulize r 1 eCW3 2014 ed ([place] 12:00: [place] 00 AM [facility] EDT Care) Nebulizer 1 UNK 10/15/ suspend Nebulize r 1 eCW3 2014 ed ([place] 12:00: [place] 00 AM [facility] EDT Care) Nebulizer 1 UNK 10/15/ suspend Nebulize r 1 eCW3 2013 ed ([place] 12:00: [place] 00 AM [facility] EDT Care) Nebulizer 1 UNK 10/15/ suspend Nebulize r 1 eCW3 2013 ed ([place] 12:00: [place] 00 AM [facility] EDT Care) Nebulizer 1 UNK 10/15/ suspend Nebulize r 1 eCW3 2013 ed ([place] 12:00: [place] 00 AM [facility] EDT Care) Nebulizer 1 UNK 10/15/ suspend Nebulize r 1 eCW3 2014 ed ([place] 12:00: [place] 00 AM [facility] EDT Care) Nebulizer 1 UNK 10/15/ suspend Nebulize r 1 eCW3 2013 ed ([place] 12:00: [place] 00 AM [facility] EDT Care) Nebulizer 1 UNK 10/15/ suspend Nebulize r 1 eCW3 2014 ed ([place] 12:00: [facility] 00 AM [facility] EDT Care) Pen [place] Pen 12/06/ active Pen Needl es eCW3 31G X 6 MM Needle 2013 31G X 6 MM ( [facility] 31G 12:00: [place] X 6 MM 00 AM [facility] EDT Care) Pen [place] Pen 12/06/ active Pen Needl es eCW3 31G X 6 MM Needle 2013 31G X 6 MM ( [facility] 31G 12:00: [place] X 6 MM 00 AM [facility] EDT Care) Pen [place] Pen 12/06/ active Pen Needl es eCW3 31G X 6 MM Needle 2014 31G X 6 MM ( [facility] 31G 12:00: [place] X 6 MM 00 AM [facility] EDT Care) Pen [place] Pen 12/06/ active Pen Needl es eCW3 31G X 6 MM Needle 2014 31G X 6 MM ( [facility] 31G 12:00: [place] X 6 MM 00 AM [facility] EDT Care) Pen [place] Pen 12/06/ active Pen Needl es eCW3 31G X 6 MM Needle 2014 31G X 6 MM ( [facility] 31G 12:00: [place] X 6 MM 00 AM [facility] EDT Care) Pen [place] Pen 12/06/ active Pen Needl es eCW3 31G X 6 MM Needle 2014 31G X 6 MM ( [facility] 31G 12:00: [place] X 6 MM 00 AM [facility] EDT Care) Pen [place] Pen 12/06/ active Pen Needl es eCW3 31G X 6 MM Needle 2013 31G X 6 MM ( [facility] 31G 12:00: [place] X 6 MM 00 AM [facility] EDT Care) Pen [place] Pen 12/06/ active Pen Needl es eCW3 31G X 6 MM Needle 2014 31G X 6 MM ( [facility] 31G 12:00: [place] X 6 MM 00 AM [facility] EDT Care) Pen [place] Pen 12/06/ active Pen Needl es eCW3 31G X 6 MM Needle 2014 31G X 6 MM ( [facility] 31G 12:00: [place] X 6 MM 00 AM [facility] EDT Care) Pen [place] Pen 12/06/ active Pen Needl es eCW3 31G X 6 MM Needle 2014 31G X 6 MM ( [facility] 31G 12:00: [place] X 6 MM 00 AM [facility] EDT Care) Pen [place] Pen 12/06/ active Pen Needl es eCW3 31G X 6 MM Needle 2014 31G X 6 MM ( [facility] 31G 12:00: [place] X 6 MM 00 AM [facility] EDT Care) [place] Pen 12/06/ active Pen Needl es eCW3 31G X 6 MM Needle 2014 31G X 6 MM ( [facility] 31G 12:00: [place] X 6 MM 00 AM [facility] EDT Care) [place] Pen 12/06/ active Pen Needl es eCW3 31G X 6 MM Needle 2014 31G X 6 MM ( [facility] 31G 12:00: [place] X 6 MM 00 AM [facility] EDT Care) [place] Pen 12/06/ active Pen Needl es eCW3 31G X 6 MM Needle 2013 31G X 6 MM ( [facility] 31G 12:00: [place] X 6 MM 00 AM [facility] EDT Care) Pen [place] Pen 12/06/ active as direct ed eCW2 31G X 6 MM Needle 2013 ([facility] 31G 12:00: [place] X 6 MM 00 AM [facility] EDT Care) [place] Pen 12/06/ active Pen Needl es eCW3 31G X 6 MM Needle 2014 31G X 6 MM ( [facility] 31G 12:00: [place] X 6 MM 00 AM [facility] EDT Care) [place] Pen 12/06/ active Pen Needl es eCW3 31G X 6 MM Needle 2014 31G X 6 MM ( [facility] 31G 12:00: [place] X 6 MM 00 AM [facility] EDT Care) [place] Pen 12/06/ active Pen Needl es eCW3 31G X 6 MM Needle 2014 31G X 6 MM ( [facility] 31G 12:00: [place] X 6 MM 00 AM [facility] EDT Care) [place] Pen 12/06/ active Pen Needl es eCW3 31G X 6 MM Needle 2014 31G X 6 MM ( [facility] 31G 12:00: [place] X 6 MM 00 AM [facility] EDT Care) [place] Pen 12/06/ active Pen Needl es eCW3 31G X 6 MM Needle 2014 31G X 6 MM ( [facility] 31G 12:00: [place] X 6 MM 00 AM [facility] EDT Care) [place] Pen 12/06/ active Pen Needl es eCW3 31G X 6 MM Needle 2014 31G X 6 MM ( [facility] 31G 12:00: [place] X 6 MM 00 AM [facility] EDT Care) [place] Pen 12/06/ active Pen Needl es eCW3 31G X 6 MM Needle 2014 31G X 6 MM ( [facility] 31G 12:00: [place] X 6 MM 00 AM [facility] EDT Care) [place] Pen 12/06/ active Pen Needl es eCW3 31G X 6 MM Needle 2014 31G X 6 MM ( [facility] 31G 12:00: [place] X 6 MM 00 AM Health EDT Care) [place] Pen 12/06/ active Pen Needl es eCW3 31G X 6 MM Needle 2014 31G X 6 MM ( [facility] 31[facility] 12:00: [place] X 6 MM 00 AM [facility] EDT Care) [place] Pen 12/06/ active Pen Needl es eCW3 31G X 6 MM Needle 2014 31G X 6 MM ( [facility] 31G 12:00: [place] X 6 MM 00 AM [facility] EDT Care) [place] Pen 12/06/ active Pen Needl es eCW3 31G X 6 MM Needle 2014 31G X 6 MM ( [facility] 31[facility] 12:00: [place] X 6 MM 00 AM [facility] EDT Care) [place] Pen 12/06/ active Pen Needl es eCW3 31G X 6 MM Needle 2013 31G X 6 MM ( [facility] 31[facility] 12:00: [place] X 6 MM 00 AM [facility] EDT Care) [place] Pen 12/06/ active Pen Needl es eCW3 31G X 6 MM Needle 2013 31G X 6 MM ( [facility] 31[facility] 12:00: [place] X 6 MM 00 AM [facility] EDT Care) [place] Pen 12/06/ active Pen Needl es eCW3 31G X 6 MM Needle 2014 31G X 6 MM ( [facility] 31[facility] 12:00: [place] X 6 MM 00 AM [facility] EDT Care) Pen [place] Pen 12/06/ active Pen Needl es eCW3 31G X 6 MM Needle 2014 31G X 6 MM ( [facility] 31[facility] 12:00: [place] X 6 MM 00 AM [facility] EDT Care) Pen [place] Pen 12/06/ active Pen Needl es eCW3 31G X 6 MM Needle 2014 31G X 6 MM ( [facility] 31[facility] 12:00: [place] X 6 MM 00 AM [facility] EDT Care) Pen [place] Pen 12/06/ active Pen Needl es eCW3 31G X 6 MM Needle 2014 31G X 6 MM ( [facility] 31G 12:00: [place] X 6 MM 00 AM [facility] EDT Care) Pen [place] Pen 12/06/ active Pen Needl es eCW3 31G X 6 MM Needle 2014 31G X 6 MM ( [facility] 31G 12:00: [place] X 6 MM 00 AM [facility] EDT Care) Simvastatin Simvas 10/18/ active Simvast atin eCW3 20 MG Oral tatin 2014 20 mg ([facility] Tablet 20 mg 12:00: [place] Simvastatin 00 AM [facility] 20 mg EDT Care) Simvastatin Simvas 10/18/ active Simvast atin eCW3 20 MG Oral tatin 2013 20 mg ([facility] Tablet 20 mg 12:00: [place] Simvastatin 00 AM Health 20 mg EDT Care) Simvastatin Simvas 10/18/ active Simvast atin eCW3 20 MG Oral tatin 2013 20 mg ([place] Tablet 20 mg 12:00: [place] Simvastatin 00 AM [facility] 20 mg EDT Care) Simvastatin Simvas 10/18/ active Simvast atin eCW3 20 MG Oral tatin 2013 20 mg ([facility] Tablet 20 mg 12:00: [place] Simvastatin 00 AM [facility] 20 mg EDT Care) Simvastatin Simvas 10/18/ active Simvast atin eCW3 20 MG Oral tatin 2013 20 mg ([place] Tablet 20 mg 12:00: [place] Simvastatin 00 AM Health 20 mg EDT Care) Simvastatin Simvas 10/18/ active Simvast atin eCW3 20 MG Oral tatin 2013 20 mg ([place] Tablet 20 mg 12:00: [place] Simvastatin 00 AM Health 20 mg EDT Care) Simvastatin Simvas 10/18/ active Simvast atin eCW3 20 MG Oral tatin 2013 20 mg ([place] Tablet 20 mg 12:00: [place] Simvastatin 00 AM [facility] 20 mg EDT Care) Simvastatin Simvas 10/18/ active Simvast atin eCW3 20 MG Oral tatin 2013 20 mg ([place] Tablet 20 mg 12:00: [place] Simvastatin 00 AM [facility] 20 mg EDT Care) Simvastatin Simvas 10/18/ active Simvast atin eCW3 20 MG Oral tatin 2013 20 mg ([place] Tablet 20 mg 12:00: [place] Simvastatin 00 AM Health 20 mg EDT Care) Simvastatin Simvas 10/18/ active Simvast atin eCW3 20 MG Oral tatin 2013 20 mg ([facility] Tablet 20 mg 12:00: [place] Simvastatin 00 AM [facility] 20 mg EDT Care) Simvastatin Simvas 10/18/ active Simvast atin eCW3 20 MG Oral tatin 2013 20 mg ([place] Tablet 20 mg 12:00: [place] Simvastatin 00 AM Health 20 mg EDT Care) Simvastatin Simvas 10/18/ active Simvast atin eCW3 20 MG Oral tatin 2014 20 mg ([place] Tablet 20 mg 12:00: [place] Simvastatin 00 AM Health 20 mg EDT Care) Simvastatin Simvas 10/18/ active Simvast atin eCW3 20 MG Oral tatin 2013 20 mg ([place] Tablet 20 mg 12:00: [place] Simvastatin 00 AM [facility] 20 mg EDT Care) Simvastatin Simvas 10/18/ active Simvast atin eCW3 20 MG Oral tatin 2013 20 mg ([place] Tablet 20 mg 12:00: [place] Simvastatin 00 AM [facility] 20 mg EDT Care) Simvastatin Simvas 10/18/ active Simvast atin eCW3 20 MG Oral tatin 2013 20 mg ([place] Tablet 20 mg 12:00: [place] Simvastatin 00 AM Health 20 mg EDT Care) Simvastatin Simvas 10/18/ active Simvast atin eCW3 20 MG Oral tatin 2013 20 mg ([place] Tablet 20 mg 12:00: [place] Simvastatin 00 AM [facility] 20 mg EDT Care) Simvastatin Simvas 10/18/ active 1 table t eCW2 20 MG Oral tatin 2013 every ([facility] Tablet 20 mg 12:00: evening [place] Simvastatin 00 AM [facility] 20 mg EDT Care) Simvastatin Simvas 10/18/ active Simvast atin eCW3 20 MG Oral tatin 2013 20 mg ([place] Tablet 20 mg 12:00: [place] Simvastatin 00 AM [facility] 20 mg EDT Care) Simvastatin Simvas 10/18/ active Simvast atin eCW3 20 MG Oral tatin 2013 20 mg ([place] Tablet 20 mg 12:00: [place] Simvastatin 00 AM Health 20 mg EDT Care) Simvastatin Simvas 10/18/ active Simvast atin eCW3 20 MG Oral tatin 2013 20 mg ([place] Tablet 20 mg 12:00: [place] Simvastatin 00 AM Health 20 mg EDT Care) Simvastatin Simvas 10/18/ active Simvast atin eCW3 20 MG Oral tatin 2013 20 mg ([place] Tablet 20 mg 12:00: [place] Simvastatin 00 AM Health 20 mg EDT Care) Simvastatin Simvas 10/18/ active Simvast atin eCW3 20 MG Oral tatin 2013 20 mg ([place] Tablet 20 mg 12:00: [place] Simvastatin 00 AM [facility] 20 mg EDT Care) Simvastatin Simvas 10/18/ active Simvast atin eCW3 20 MG Oral tatin 2013 20 mg ([place] Tablet 20 mg 12:00: [place] Simvastatin 00 AM Health 20 mg EDT Care) Simvastatin Simvas 10/18/ active Simvast atin eCW3 20 MG Oral tatin 2013 20 mg ([place] Tablet 20 mg 12:00: [place] Simvastatin 00 AM Health 20 mg EDT Care) Simvastatin Simvas 10/18/ active Simvast atin eCW3 20 MG Oral tatin 2013 20 mg ([place] Tablet 20 mg 12:00: [place] Simvastatin 00 AM Health 20 mg EDT Care) Simvastatin Simvas 10/18/ active Simvast atin eCW3 20 MG Oral tatin 2013 20 mg ([place] Tablet 20 mg 12:00: [place] Simvastatin 00 AM Health 20 mg EDT Care) Simvastatin Simvas 10/18/ active Simvast atin eCW3 20 MG Oral tatin 2013 20 mg ([place] Tablet 20 mg 12:00: [place] Simvastatin 00 AM Health 20 mg EDT Care) Simvastatin Simvas 10/18/ active Simvast atin eCW3 20 MG Oral tatin 2013 20 mg ([place] Tablet 20 mg 12:00: [place] Simvastatin 00 AM Health 20 mg EDT Care) Simvastatin Simvas 10/18/ active Simvast atin eCW3 20 MG Oral tatin 2013 20 mg ([place] Tablet 20 mg 12:00: [place] Simvastatin 00 AM Health 20 mg EDT Care) Simvastatin Simvas 10/18/ active Simvast atin eCW3 20 MG Oral tatin 2013 20 mg ([place] Tablet 20 mg 12:00: [place] Simvastatin 00 AM Health 20 mg EDT Care) Simvastatin Simvas 10/18/ active Simvast atin eCW3 20 MG Oral tatin 2013 20 mg ([place] Tablet 20 mg 12:00: [place] Simvastatin 00 AM Health 20 mg EDT Care) Simvastatin Simvas 10/18/ active Simvast atin eCW3 20 MG Oral tatin 2013 20 mg ([place] Tablet 20 mg 12:00: [place] Simvastatin 00 AM Health 20 mg EDT Care) Simvastatin Simvas 10/18/ active Simvast atin eCW3 20 MG Oral tatin 2013 20 mg ([place] Tablet 20 mg 12:00: [place] Simvastatin 00 AM Health 20 mg EDT Care) LANCETS dx: UNK 06/08/ active LANCETS d x: eCW3 DM 2014 DM ([place] 12:00: [facility] 00 AM [facility] EST Care) Lancets dx: UNK 06/08/ active Lancets d x: eCW3 DM 2013 DM ([place] 12:00: [facility] 00 AM [facility] EST Care) Alcohol UNK 06/08/ active Alcohol Prep eCW3 Prep Swabs 2014 Swabs dx: DM ( [place] dx: DM 12:00: [facility] 00 AM [facility] EST Care) LANCETS dx: UNK 06/08/ active LANCETS d x: eCW3 DM 2013 DM ([place] 12:00: [place] 00 AM [facility] EST Care) Alcohol UNK 06/08/ active Alcohol Prep eCW3 Prep Swabs 2014 Swabs dx: DM ( [place] dx: DM 12:00: [facility] 00 AM [facility] EST Care) Alcohol UNK 06/08/ active Alcohol Prep eCW3 Prep Swabs 2013 Swabs dx: DM ( [place] dx: DM 12:00: [place] 00 AM [facility] EST Care) LANCETS dx: UNK 06/08/ active LANCETS d x: eCW3 DM 2013 DM ([place] 12:00: [place] 00 AM [facility] EST Care) Alcohol UNK 06/08/ active Alcohol Prep eCW3 Prep Swabs 2014 Swabs dx: DM ( [place] dx: DM 12:00: [place] 00 AM [facility] EST Care) Alcohol UNK 06/08/ active Alcohol Prep eCW3 Prep Swabs 2014 Swabs dx: DM ( [place] dx: DM 12:00: [place] 00 AM [facility] EST Care) Alcohol UNK 06/08/ active as directed e CW2 Prep Swabs 2013 ([place] dx: DM 12:00: [place] 00 AM [facility] EST Care) LANCETS dx: UNK 06/08/ active LANCETS d x: eCW3 DM 2013 DM ([facility] 12:00: [place] 00 AM [facility] EST Care) Lancets dx: UNK 06/08/ active as direct ed eCW2 DM 2013 ([place] 12:00: [place] 00 AM [facility] EST Care) NEBULIZER UNK 0816/ active NEBULIZER e CW3 dx: asthma 2012 dx: asthma ([facility] 12:00: [facility] 00 AM [facility] EDT Care) NEBULIZER UNK 08/16/ active NEBULIZER e CW3 dx: asthma 2012 dx: asthma ([facility] 12:00: [facility] 00 AM [facility] EDT Care) NEBULIZER UNK 08/16/ active NEBULIZER e CW3 dx: asthma 2012 dx: asthma ([facility] 12:00: [place] 00 AM [facility] EDT Care) NEBULIZER UNK 08/16/ active NEBULIZER e CW3 dx: asthma 2012 dx: asthma ([facility] 12:00: [place] 00 AM [facility] EDT Care) NEBULIZER UNK 08/16/ active NEBULIZER e CW3 dx: asthma 2012 dx: asthma ([facility] 12:00: [place] 00 AM [facility] EDT Care) NEBULIZER UNK 08/16/ active NEBULIZER e CW3 dx: asthma 2012 dx: asthma ([facility] 12:00: [place] 00 AM [facility] EDT Care) NEBULIZER UNK 08/16/ suspend NEBULIZER eCW3 dx: asthma 2013 ed dx: asthma ([facility] 12:00: [place] 00 AM [facility] EDT Care) NEBULIZER UNK 08/16/ active NEBULIZER e CW3 dx: asthma 2012 dx: asthma ([facility] 12:00: [place] 00 AM [facility] EDT Care) NEBULIZER UNK 08/16/ active NEBULIZER e CW3 dx: asthma 2012 dx: asthma ([facility] 12:00: [place] 00 AM [facility] EDT Care) NEBULIZER UNK 08/16/ active NEBULIZER e CW3 dx: asthma 2012 dx: asthma ([facility] 12:00: [place] 00 AM [facility] EDT Care) NEBULIZER UNK 08/16/ active NEBULIZER e CW3 dx: asthma 2012 dx: asthma ([facility] 12:00: [place] 00 AM [facility] EDT Care) NEBULIZER UNK 08/16/ active NEBULIZER e CW3 dx: asthma 2012 dx: asthma ([facility] 12:00: [place] 00 AM [facility] EDT Care) NEBULIZER UNK 08/16/ active NEBULIZER e CW3 dx: asthma 2012 dx: asthma ([facility] 12:00: [place] 00 AM [facility] EDT Care) NEBULIZER UNK 08/16/ active NEBULIZER e CW3 dx: asthma 2012 dx: asthma ([facility] 12:00: [place] 00 AM [facility] EDT Care) NEBULIZER UNK 08/16/ active NEBULIZER e CW3 dx: asthma 2012 dx: asthma ([facility] 12:00: [place] 00 AM [facility] EDT Care) NEBULIZER UNK 08/16/ active NEBULIZER e CW3 dx: asthma 2012 dx: asthma ([facility] 12:00: [place] 00 AM [facility] EDT Care) NEBULIZER UNK 08/16/ active NEBULIZER e CW3 dx: asthma 2012 dx: asthma ([facility] 12:00: [place] 00 AM [facility] EDT Care) NEBULIZER UNK 08/16/ active NEBULIZER e CW3 dx: asthma 2012 dx: asthma ([facility] 12:00: [place] 00 AM [facility] EDT Care) NEBULIZER UNK 08/16/ active NEBULIZER e CW3 dx: asthma 2012 dx: asthma ([facility] 12:00: [place] 00 AM [facility] EDT Care) NEBULIZER UNK 08/16/ active NEBULIZER e CW3 dx: asthma 2012 dx: asthma ([facility] 12:00: [place] 00 AM [facility] EDT Care) NEBULIZER UNK 08/16/ active NEBULIZER e CW3 dx: asthma 2012 dx: asthma ([facility] 12:00: [place] 00 AM [facility] EDT Care) NEBULIZER UNK 08/16/ active NEBULIZER e CW3 dx: asthma 2012 dx: asthma ([facility] 12:00: [place] 00 AM [facility] EDT Care) NEBULIZER UNK 08/16/ active NEBULIZER e CW3 dx: asthma 2012 dx: asthma ([facility] 12:00: [place] 00 AM [facility] EDT Care) NEBULIZER UNK 08/16/ active NEBULIZER e CW3 dx: asthma 2012 dx: asthma ([facility] 12:00: [place] 00 AM [facility] EDT Care) NEBULIZER UNK 08/16/ active NEBULIZER e CW3 dx: asthma 2012 dx: asthma ([facility] 12:00: [place] 00 AM [facility] EDT Care) NEBULIZER UNK 08/16/ active NEBULIZER e CW3 dx: asthma 2012 dx: asthma ([facility] 12:00: [place] 00 AM [facility] EDT Care) NEBULIZER UNK 08/16/ active NEBULIZER e CW3 dx: asthma 2012 dx: asthma ([facility] 12:00: [place] 00 AM [facility] EDT Care) NEBULIZER UNK 08/16/ active NEBULIZER e CW3 dx: asthma 2012 dx: asthma ([facility] 12:00: [place] 00 AM [facility] EDT Care) NEBULIZER UNK 08/16/ active NEBULIZER e CW3 dx: asthma 2012 dx: asthma ([facility] 12:00: [place] 00 AM [facility] EDT Care) GLUCOMETER UNK 05/22/ active GLUCOMETER eCW3 NIDD 2012 NIDD ([place] 12:00: [place] 00 AM [facility] EDT Care) Glucometer UNK 09/06/ active As directe d eCW2 NIDD 2012 ([facility] 12:00: [place] 00 AM [facility] EDT Care) Glucometer UNK 09/06/ active Glucometer eCW3 NIDD 2012 NIDD ([place] 12:00: [place] 00 AM [facility] EDT Care) GLUCOMETER UNK 09/06/ active GLUCOMETER eCW3 NIDD 2012 NIDD ([place] 12:00: [place] 00 AM [facility] EDT Care) GLUCOMETER UNK 09/06/ active GLUCOMETER eCW3 NIDD 2012 NIDD ([place] 12:00: [place] 00 AM [facility] EDT Care) gabapentin Gabape 1.0 active Gabapentin eCW3 300 MG Oral ntin {caps 300 MG ([facility] on Capsule 300 MG ule} [place] Gabapentin Health 300 MG Care) Fluticasone Flutic suspend Fluticas one eCW3 Propionate asone ed Propionate ([facility] 50 MCG/ACT Propio 50 MCG/ACT R [address]) MCG/AC T Unknown complet eCW2 Medications ed ([facility]) Magnesium Magnes active Magnesium e CW3 Oxide 400 ium Oxide 400 ([facility] on MG Oral Oxide (241.3 Mg) [place] Tablet 400 MG Health Magnesium (241.3 Care) Oxide 400 Mg) MG (241.3 Mg) MG Fluticasone Flutic suspend Fluticas one eCW3 Propionate asone ed Propionate ([facility] 50 MCG/ACT Propio 50 MCG/ACT R [facility] 50 [facility]) MCG/AC T carvedilol Carved active Carvedilol eCW3 3.125 MG ilol 3.125 MG ([place] Oral Tablet 3.125 [place] Carvedilol Health 3.125 MG Care) Spironolact Spiron 1.0 active Spironola box inspector eCW3 one 25 MG olacto {tabl ne 25 MG ([facility] Oral Tablet ne 25 et} [facility]) Vitamin B Vitami 1.0 active Vitamin B e CW3 Complex - n B {tabl Complex - ([facility] Comple et} [place] x Health [facility]) 60 ACTUAT Advair active Advair eCW3 Fluticasone Diskus Diskus ([facility] son propionate 500-50 500-50 [place] 0.5 mcg/do mcg/dose Health MG/ACTUAT / se Care) salmeterol 0.05 MG/ACTUAT Dry Powder Inhaler [Advair] Advair Diskus 500-50 mcg/dose 3 ML Victoz active Victoza 18 eCW3 liraglutide a 18 MG/3ML ([place] [facility] 6 MG/ML Pen MG/3ML [place] Injector Health [Victoza] Care) Victoza 18 MG/3ML 3 ML Victoz active Victoza 18 eCW3 liraglutide a 18 MG/3ML ([place] [facility] 6 MG/ML Pen MG/3ML [place] Injector [facility] [Victoza] Care) Victoza 18 MG/3ML Vitamin B Vitami 1.0 active Vitamin B e CW3 Complex - n B {tabl Complex - ([facility] Comple et} [place] x - Health Care) Magnesium Magnes active Magnesium e CW3 Oxide 400 ium Oxide 400 ([facility] on MG Oral Oxide (241.3 Mg) [place] Tablet 400 MG Health Magnesium (241.3 Care) Oxide 400 Mg) MG (241.3 Mg) MG clopidogrel Clopid active Clopidogr el eCW3 75 MG Oral ogrel Bisulfate 75 ([place] Tablet Bisulf MG [place] Clopidogrel ate 75 Health Bisulfate MG Care) 75 MG 3 ML Victoz active Victoza 18 eCW3 liraglutide a 18 MG/3ML ([place] [facility] 6 MG/ML Pen MG/3ML [place] Injector [facility] [Victoza] Care) Victoza 18 MG/3ML gabapentin Gabape 1.0 active Gabapentin eCW3 300 MG Oral ntin {caps 300 MG ([facility] Capsule 300 MG ule} [place] Gabapentin Health 300 MG Care) montelukast Eduardo active 1 tablet eCW2 10 MG Oral ukast ([place] Tablet Sodium [place] Montelukast 10 mg Health Sodium 10 Care) mg pantoprazol Pantop 1.0 active Pantopraz ole eCW3 e 20 MG razole {tabl Sodium 20 MG ( [place] Delayed Sodium et} [place] Release 20 MG Health Oral Tablet Care) Pantoprazol e Sodium 20 MG Losartan Losart active Losartan eCW 3 Potassium an Potassium 50 ([facility] 50 MG Oral Potass MG [place] Tablet ium 50 Health MG Care) Losartan Losart active Losartan eCW 3 Potassium an Potassium 50 ([facility] 50 MG Oral Potass MG [place] Tablet ium 50 Health MG Care) Morphine [place] 1.0 suspend Morphine eC W3 Sulfate 15 ne {tabl ed Sulfate ER ([facility] MG Extended Sulfat et} 15 MG [place] Release e ER Health Oral Tablet 15 MG Care) Morphine Sulfate ER 15 MG Morphine [place] 1.0 suspend Morphine eC W3 Sulfate 15 ne {tabl ed Sulfate ER ([facility] MG Extended Sulfat et} 15 MG [place] Release e ER Health Oral Tablet 15 MG Care) Morphine Sulfate ER 15 MG Spironolact Spiron 1.0 active Spironola box inspector eCW3 one 25 MG olacto {tabl ne 25 MG ([facility] Oral Tablet ne 25 et} [place] MG Health Care) gabapentin Gabape active 1 capsule eCW2 300 MG Oral ntin ([place] Capsule 300 MG [place] Gabapentin Health 300 MG Care) Magnesium Magnes active Magnesium e CW3 Oxide 400 ium Oxide 400 ([facility] MG Oral Oxide (241.3 Mg) [place] Tablet 400 MG Health Magnesium (241.3 Care) Oxide 400 Mg) MG (241.3 Mg) MG clopidogrel Clopid active Clopidogr el eCW3 75 MG Oral ogrel Bisulfate 75 ([place] Tablet Bisulf MG [place] Clopidogrel ate 75 Health Bisulfate MG Care) 75 MG Fluticasone Flutic suspend Fluticas one eCW3 Propionate asone ed Propionate ([facility] 50 MCG/ACT Propio 50 MCG/ACT R iver cheri Health 50 Care) MCG/AC T Morphine [place] 1.0 suspend Morphine eC W3 Sulfate 15 ne {tabl ed Sulfate ER ([facility] MG Extended Sulfat et} 15 MG [place] Release e ER Health Oral Tablet 15 MG Care) Morphine Sulfate ER 15 MG clopidogrel Clopid active Clopidogr el eCW3 75 MG Oral ogrel Bisulfate 75 ([place] Tablet Bisulf MG [place] Clopidogrel ate 75 Health Bisulfate MG Care) 75 MG 60 ACTUAT Advair active Advair eCW3 Fluticasone Diskus Diskus ([facility] propionate 500-50 500-50 [place] 0.5 mcg/do mcg/dose Health MG/ACTUAT / se Care) salmeterol 0.05 MG/ACTUAT Dry Powder Inhaler [Advair] Advair Diskus 500-50 mcg/dose gabapentin Gabape 1.0 active Gabapentin eCW3 300 MG Oral ntin {caps 300 MG ([facility] Capsule 300 MG ule} [place] Gabapentin Health 300 MG Care) Vitamin B Vitami 1.0 active Vitamin B e CW3 Complex - n B {tabl Complex - ([facility] Comple et} [place] x - Health Care) carvedilol Carved active Carvedilol eCW3 3.125 MG ilol 3.125 MG ([place] Oral Tablet 3.125 [place] Carvedilol MG Health 3.125 MG Care) Magnesium Magnes active Magnesium e CW3 Oxide 400 ium Oxide 400 ([facility] MG Oral Oxide (241.3 Mg) [place] Tablet 400 MG Health Magnesium (241.3 Care) Oxide 400 Mg) MG (241.3 Mg) MG montelukast Eduardo 1.[address] eCW3 10 MG Oral ukast {tabl Sodium 10 mg ([place] Tablet Sodium et} [place] Montelukast 10 mg Health Sodium 10 Care) mg rivaroxaban Xarelt active Xarelto 2 0 eCW3 20 MG Oral o 20 MG ([place] Tablet MG [place] [Xarelto] Health Xarelto 20 Care) MG Loratadine Clarit 1.0 active Claritin 1 0 eCW3 10 MG Oral in 10 {tabl mg ([place] Tablet mg et} [place] [Claritin] Health Claritin 10 Care) mg pantoprazol Pantop 1.0 active Pantopraz ole eCW3 e 20 MG razole {tabl Sodium 20 MG ( [place] Delayed Sodium et} [place] Release 20 MG Health Oral Tablet Care) Pantoprazol e Sodium 20 MG rivaroxaban Xarelt active Xarelto 2 0 eCW3 20 MG Oral o 20 MG ([place] Tablet MG [place] [Xarelto] Health Xarelto 20 Care) MG clopidogrel Clopid active Clopidogr el eCW3 75 MG Oral ogrel Bisulfate 75 ([place] Tablet Bisulf MG [place] Clopidogrel ate 75 Health Bisulfate MG Care) 75 MG montelukast Singul 1.0 suspend Singulai r 10 eCW3 10 MG Oral air 10 {tabl ed mg ([facility] [facility] Tablet mg et_in [place] [Singulair] _the_ Health Singulair eveni Care) 10 mg ng} montelukast Eduardo 1.[address] eCW3 10 MG Oral ukast {tabl Sodium 10 mg ([facility] Tablet Sodium et} [place] Montelukast 10 mg Health Sodium 10 Care) mg 60 ACTUAT Advair active Advair eCW3 Fluticasone Diskus Diskus ([facility] propionate 500-50 500-50 [place] 0.5 mcg/do mcg/dose Health MG/ACTUAT / se Care) salmeterol 0.05 MG/ACTUAT Dry Powder Inhaler [Advair] Advair Diskus 500-50 mcg/dose gabapentin Gabape 1.0 active Gabapentin eCW3 300 MG Oral ntin {caps 300 MG ([facility] Capsule 300 MG ule} [place] Gabapentin Health 300 MG Care) rivaroxaban Xarelt active Xarelto 2 0 eCW3 20 MG Oral o 20 MG ([place] Tablet MG [place] [Xarelto] Health Xarelto 20 Care) MG carvedilol Carved active Carvedilol eCW3 3.125 MG ilol 3.125 MG ([place] Oral Tablet 3.125 [place] Carvedilol MG Health 3.125 MG Care) 3 ML Victoz active Victoza 18 eCW3 liraglutide a 18 MG/3ML ([place] 6 MG/ML Pen MG/3ML [place] [facility] [Victoza] Care) Victoza 18 MG/3ML montelukast Eduardo 1.[address] eCW3 10 MG Oral ukast {tabl Sodium 10 mg ([place] Tablet Sodium et} [place] Montelukast 10 mg Health Sodium 10 Care) mg pantoprazol Pantop 1.0 active Pantopraz ole eCW3 e 20 MG razole {tabl Sodium 20 MG ( [place] Delayed Sodium et} [place] Release 20 MG Health Oral Tablet Care) Pantoprazol e Sodium 20 MG 60 ACTUAT Advair active Advair eCW3 Fluticasone Diskus Diskus ([place] son propionate 500-50 500-50 [place] 0.5 mcg/do mcg/dose Health MG/ACTUAT / se Care) salmeterol 0.05 MG/ACTUAT Dry Powder Inhaler [Advair] Advair Diskus 500-50 mcg/dose 3 ML Victoz active Victoza 18 eCW3 liraglutide a 18 MG/3ML ([place] 6 MG/ML Pen MG/3ML [facility] [Victoza] Care) Victoza 18 MG/3ML carvedilol Carved active Carvedilol eCW3 3.125 MG ilol 3.125 MG ([place] Oral Tablet 3.125 [place] Carvedilol MG Health 3.125 MG Care) rivaroxaban Xarelt active Xarelto 2 0 eCW3 20 MG Oral o 20 MG ([place] Tablet MG [place] [Xarelto] [facility] Xarelto 20 Care) MG 60 ACTUAT Advair active Advair eCW3 Fluticasone Diskus Diskus ([place] propionate 500-50 500-50 [place] 0.5 mcg/do mcg/dose Health MG/ACTUAT / se Care) salmeterol 0.05 MG/ACTUAT Dry Powder Inhaler [Advair] Advair Diskus 500-50 mcg/dose Vitamin B Vitami 1.0 active Vitamin B e CW3 Complex - n B {tabl Complex - ([place] Comple et} [place] x - Health Care) rivaroxaban Xarelt active Xarelto 2 0 eCW3 20 MG Oral o 20 MG ([place] Tablet MG [place] [Xarelto] [facility] Xarelto 20 Care) MG Fluticasone Flutic suspend Fluticas one eCW3 Propionate asone ed Propionate (H udson 50 MCG/ACT Propio 50 MCG/ACT R iver cheri Health 50 Care) MCG/AC T Magnesium Magnes active Magnesium e CW3 Oxide 400 ium Oxide 400 ([place] MG Oral Oxide (241.3 Mg) [place] Tablet 400 MG Health Magnesium (241.3 Care) Oxide 400 Mg) MG (241.3 Mg) MG pantoprazol Pantop 1.0 active Pantopraz ole eCW3 e 20 MG razole {tabl Sodium 20 MG ( [place] Delayed Sodium et} [place] Release 20 MG Health Oral Tablet Care) Pantoprazol e Sodium 20 MG gabapentin Gabape 1.0 active Gabapentin eCW3 300 MG Oral ntin {caps 300 MG ([place] Capsule 300 MG ule} [place] Gabapentin Health 300 MG Care) Loratadine Clarit 1.0 active Claritin 1 0 eCW3 10 MG Oral in 10 {tabl mg ([place] Tablet mg et} [place] [Claritin] Health Claritin 10 Care) mg gabapentin Gabape 1.0 active Gabapentin eCW3 300 MG Oral ntin {caps 300 MG ([place] Capsule 300 MG ule} [place] Gabapentin Health 300 MG Care) pantoprazol Pantop 1.0 active Pantopraz ole eCW3 e 20 MG razole {tabl Sodium 20 MG ( [place] Delayed Sodium et} [place] Release 20 MG Health Oral Tablet Care) Pantoprazol e Sodium 20 MG rivaroxaban Xarelt active Xarelto 2 0 eCW3 20 MG Oral o 20 MG ([place] Tablet MG [place] [Xarelto] [facility] Xarelto 20 [facility]) MG gabapentin Gabape 1.0 active Gabapentin eCW3 300 MG Oral ntin {caps 300 MG ([facility] on Capsule 300 MG ule} [place] Gabapentin Health 300 MG Care) 3 ML Victoz active Victoza 18 eCW3 liraglutide a 18 MG/3ML [facility] Pen MG/3ML [place] Injector [facility] [Victoza] [facility]) Victoza 18 MG/3ML Spironolact Spiron 1.0 active Spironola box inspector eCW3 one 25 MG olacto {tabl ne 25 MG ( dson Oral Tablet ne 25 et} [facility]) 200 ACTUAT Ventol 2.0 suspend Ventolin HFA eCW3 Albuterol in HFA {puff ed 108 (90 ([place] son 0.09 108 s} Base) [place] MG/ACTUAT (90 MCG/ACT Health Metered Base) Care) Dose MCG/AC Inhaler T [Ventolin] Ventolin HFA 108 (90 Base) MCG/ACT 60 ACTUAT Advair active Advair eCW3 Fluticasone Diskus Diskus ([place] propionate 500-50 500-50 [place] 0.5 mcg/do mcg/dose Health MG/ACTUAT / se Care) salmeterol 0.05 MG/ACTUAT Dry Powder Inhaler [Advair] Advair Diskus 500-50 mcg/dose Spironolact Spiron 1.0 active Spironola box inspector eCW3 one 25 MG olacto {tabl ne 25 MG ( dson Oral Tablet ne 25 et} [facility]) Unknown complet eCW2 Medications ed ([facility]) pantoprazol Pantop 1.0 active Pantopraz ole eCW3 e 20 MG razole {tabl Sodium 20 MG ( [place] Delayed Sodium et} [place] Release 20 MG Health Oral Tablet Care) Pantoprazol e Sodium 20 MG Amlodipine Amlodi 1.0 active Amlodipine eCW3 10 MG / pine {caps Besy-Benazep (Hu dson Benazepril Besy-B ule} ril HCl Rive r hydrochlori enazep 10-40 MG He alth de 40 MG ril Care) Oral HCl Capsule 10-40 Amlodipine MG Besy-Benaze pril HCl 10-40 MG rivaroxaban Xarelt active Xarelto 2 0 eCW3 20 MG Oral o 20 MG ([place] Tablet MG [place] [Xarelto] Health Xarelto 20 Care) MG gabapentin Gabape 1.0 active Gabapentin eCW3 300 MG Oral ntin {caps 300 MG ([place] Capsule 300 MG ule} [place] Gabapentin Health 300 MG Care) Magnesium Magnes active Magnesium e CW3 Oxide 400 ium Oxide 400 ([place] on MG Oral Oxide (241.3 Mg) [place] Tablet 400 MG Health Magnesium (241.3 Care) Oxide 400 Mg) MG (241.3 Mg) MG Losartan Losart active Losartan eCW 3 Potassium an Potassium 50 ([place] ud[place] 50 MG Oral Potass MG [place] Tablet ium 50 Health MG Care) 60 ACTUAT Advair active Advair eCW3 Fluticasone Diskus Diskus ([place] propionate 500-50 500-50 [place] 0.5 mcg/do mcg/dose Health MG/ACTUAT / se Care) salmeterol 0.05 MG/ACTUAT Dry Powder Inhaler [Advair] Advair Diskus 500-50 mcg/dose Spironolact Spiron 1.0 active Spironola box inspector eCW3 one 25 MG olacto {tabl ne 25 MG (Hu dson Oral Tablet ne 25 et} [place] MG Health Care) montelukast Eduardo 1.[address] eCW3 10 MG Oral ukast {tabl Sodium 10 mg ([place] Tablet Sodium et} [place] Montelukast 10 mg Health Sodium 10 Care) mg gabapentin Gabape 1.0 active Gabapentin eCW3 300 MG Oral ntin {caps 300 MG ([place] Capsule 300 MG ule} [place] Gabapentin Health 300 MG Care) montelukast Singul 1.0 active Singulair 10 eCW3 10 MG Oral air 10 {tabl mg ([place] Tablet mg et_in [place] [Singulair] _the_ Health Singulair eveni Care) 10 mg ng} clopidogrel Clopid active Clopidogr el eCW3 75 MG Oral ogrel Bisulfate 75 ([place] Tablet Bisulf MG [place] Clopidogrel ate 75 Health Bisulfate MG Care) 75 MG montelukast Eduardo 1.[address] eCW3 10 MG Oral ukast {tabl Sodium 10 mg ([place] Tablet Sodium et} [place] Montelukast 10 mg Health Sodium 10 Care) mg rivaroxaban Xarelt active Xarelto 2 0 eCW3 20 MG Oral o 20 MG ([place] Tablet MG [place] [Xarelto] [facility] Xarelto 20 [facility]) MG 3 ML Victoz active Victoza 18 eCW3 liraglutide a 18 MG/3ML ([place] 6 MG/ML Pen MG/3ML [place] Injector Health [Victoza] Care) Victoza 18 MG/3ML carvedilol Carved active Carvedilol eCW3 3.125 MG ilol 3.125 MG ([place] Oral Tablet 3.125 [place] Carvedilol Health 3.125 MG [facility]) 200 ACTUAT Ventol 2.0 suspend Ventolin HFA eCW3 Albuterol in HFA {puff ed 108 (90 ([place] son 0.09 108 s} Base) [place] MG/ACTUAT (90 MCG/ACT Health Metered Base) Care) Dose MCG/AC Inhaler T [Ventolin] Ventolin HFA 108 (90 Base) MCG/ACT Losartan Losart active Losartan eCW 3 Potassium an Potassium 50 ([place] ud[place] 50 MG Oral Potass MG [place] Tablet ium 50 Health MG Care) Fluticasone Flutic suspend Fluticas one eCW3 Propionate asone ed Propionate ([place] udson 50 MCG/ACT Propio 50 MCG/ACT R iver cheri Health 50 Care) MCG/AC T 3 ML Victoz active Victoza 18 eCW3 liraglutide a 18 MG/3ML ([place] 6 MG/ML Pen MG/3ML [place] Injector Health [Victoza] Care) Victoza 18 MG/3ML Morphine Morphi 1.0 suspend Morphine eC W3 Sulfate 15 ne {tabl ed Sulfate ER ([place] udson MG Extended Sulfat et} 15 MG [place] Release e ER Health Oral Tablet 15 MG Care) Morphine Sulfate ER 15 MG gabapentin Gabape 1.0 active Gabapentin eCW3 300 MG Oral ntin {caps 300 MG ([place] Capsule 300 MG ule} [place] Gabapentin Health 300 MG Care) clopidogrel Clopid active Clopidogr el eCW3 75 MG Oral ogrel Bisulfate 75 ([place] Tablet Bisulf MG [place] Clopidogrel ate 75 Health Bisulfate MG Care) 75 MG Fluticasone Flutic suspend Fluticas one eCW3 Propionate asone ed Propionate ([place] ud[place] 50 MCG/ACT Propio 50 MCG/ACT R iver cheri Health 50 Care) MCG/AC T 200 ACTUAT Ventol 2.0 suspend Ventolin HFA eCW3 Albuterol in HFA {puff ed 108 (90 ([place] son 0.09 108 s} Base) [place] MG/ACTUAT (90 MCG/ACT Health Metered Base) Care) Dose MCG/AC Inhaler T [Ventolin] Ventolin HFA 108 (90 Base) MCG/ACT clopidogrel Clopid active Clopidogr el eCW3 75 MG Oral ogrel Bisulfate 75 ([place] Tablet Bisulf MG [place] Clopidogrel ate 75 Health Bisulfate MG Care) 75 MG clopidogrel Clopid active Clopidogr el eCW3 75 MG Oral ogrel Bisulfate 75 ([place] Tablet Bisulf MG [place] Clopidogrel ate 75 Health Bisulfate MG Care) 75 MG 200 ACTUAT Ventol 2.0 suspend Ventolin HFA eCW3 Albuterol in HFA {puff ed 108 (90 ([place] son 0.09 108 s} Base) [place] MG/ACTUAT (90 MCG/ACT Health Metered Base) Care) Dose MCG/AC Inhaler T [Ventolin] Ventolin HFA 108 (90 Base) MCG/ACT clopidogrel Clopid active Clopidogr el eCW3 75 MG Oral ogrel Bisulfate 75 ([place] Tablet Bisulf MG [place] Clopidogrel ate 75 Health Bisulfate MG Care) 75 MG clopidogrel Clopid active Clopidogr el eCW3 75 MG Oral ogrel Bisulfate 75 ([place] Tablet Bisulf MG [place] Clopidogrel ate 75 Health Bisulfate MG Care) 75 MG 60 ACTUAT Advair active Advair eCW3 Fluticasone Diskus Diskus ([place] son propionate 500-50 500-50 [place] 0.5 mcg/do mcg/dose Health MG/ACTUAT / se Care) salmeterol 0.05 MG/ACTUAT Dry Powder Inhaler [Advair] Advair Diskus 500-50 mcg/dose montelukast Eduardo 1.[address] eCW3 10 MG Oral ukast {tabl Sodium 10 mg ([place] Tablet Sodium et} [place] Montelukast 10 mg Health Sodium 10 Care) mg pantoprazol Pantop 1.0 active Pantopraz ole eCW3 e 20 MG razole {tabl Sodium 20 MG ( [place] Delayed Sodium et} [place] Release 20 MG Health Oral Tablet Care) Pantoprazol e Sodium 20 MG montelukast Eduardo 1.[address] eCW3 10 MG Oral ukast {tabl Sodium 10 mg ([place] Tablet Sodium et} [place] Montelukast 10 mg Health Sodium 10 Care) mg Vitamin B Vitami 1.0 active Vitamin B e CW3 Complex - n B {tabl Complex - ([place] Comple et} [place] x - Health Care) Morphine Morphi 1.0 suspend Morphine eC W3 Sulfate 15 ne {tabl ed Sulfate ER (H udson MG Extended Sulfat et} 15 MG [place] Release e ER Health Oral Tablet 15 MG Care) Morphine Sulfate ER 15 MG Spironolact Spiron 1.0 active Spironola box inspector eCW3 one 25 MG olacto {tabl ne 25 MG (Hu dson Oral Tablet ne 25 et} [place] MG Health Care) Losartan Losart active Losartan eCW 3 Potassium an Potassium 50 (H udson 50 MG Oral Potass MG [place] Tablet ium 50 Health MG Care) Magnesium Magnes active Magnesium e CW3 Oxide 400 ium Oxide 400 ([place] MG Oral Oxide (241.3 Mg) [place] Tablet 400 MG Health Magnesium (241.3 Care) Oxide 400 Mg) MG (241.3 Mg) MG Vitamin B Vitami 1.0 active Vitamin B e CW3 Complex - n B {tabl Complex - ([place] son Comple et} [place] x - Health [facility]) carvedilol Carved active Carvedilol eCW3 3.125 MG ilol 3.125 MG ([place] Oral Tablet 3.125 [place] Carvedilol MG Health 3.125 MG Care) 60 ACTUAT Advair active Advair eCW3 Fluticasone Diskus Diskus ([place] son propionate 500-50 500-50 [place] 0.5 mcg/do mcg/dose Health MG/ACTUAT / se Care) salmeterol 0.05 MG/ACTUAT Dry Powder Inhaler [Advair] Advair Diskus 500-50 mcg/dose Vitamin B Vitami 1.0 active Vitamin B e CW3 Complex - n B {tabl Complex - ([place] Comple et} [place] x - Health Care) rivaroxaban Xarelt active Xarelto 2 0 eCW3 20 MG Oral o 20 MG ([place] Tablet MG [place] [Xarelto] [facility] Xarelto 20 [facility]) MG carvedilol Carved active Carvedilol eCW3 3.125 MG ilol 3.125 MG ([place] Oral Tablet 3.125 [place] Carvedilol MG Health 3.125 MG Care) 60 ACTUAT Advair active Advair eCW3 Fluticasone Diskus Diskus ([facility] son propionate 500-50 500-50 [place] 0.5 mcg/do mcg/dose Health MG/ACTUAT / se Care) salmeterol 0.05 MG/ACTUAT Dry Powder Inhaler [Advair] Advair Diskus 500-50 mcg/dose rivaroxaban Xarelt active Xarelto 2 0 eCW3 20 MG Oral o 20 MG ([place] Tablet MG [place] [Xarelto] [facility] Xarelto 20 [facility]) MG Vitamin B Vitami 1.0 active Vitamin B e CW3 Complex - n B {tabl Complex - ([facility] son Comple et} [facility]) Vitamin B Vitami 1.0 active Vitamin B e CW3 Complex - n B {tabl Complex - ([facility] son Comple et} [facility]) Morphine Morphi 1.0 suspend Morphine eC W3 Sulfate 15 ne {tabl ed Sulfate ER (H udson MG Extended Sulfat et} 15 MG [place] Release e ER Health Oral Tablet 15 MG Care) Morphine Sulfate ER 15 MG gabapentin Gabape 1.0 active Gabapentin eCW3 300 MG Oral ntin {caps 300 MG ([place] Capsule 300 MG ule} [place] Gabapentin Health 300 MG Care) clopidogrel Clopid active Clopidogr el eCW3 75 MG Oral ogrel Bisulfate 75 ([place] Tablet Bisulf MG [place] Clopidogrel ate 75 Health Bisulfate MG Care) 75 MG 3 ML Victoz active Victoza 18 eCW3 liraglutide a 18 MG/3ML ([place] 6 MG/ML Pen MG/3ML [place] Injector Health [Victoza] [facility]) Victoza 18 MG/3ML Magnesium Magnes active Magnesium e CW3 Oxide 400 ium Oxide 400 ([place] on MG Oral Oxide (241.3 Mg) [place] Tablet 400 MG Health Magnesium (241.3 Care) Oxide 400 Mg) MG (241.3 Mg) MG rivaroxaban Xarelt active Xarelto 2 0 eCW3 20 MG Oral o 20 MG ([place] Tablet MG [place] [Xarelto] [facility] Xarelto 20 Care) MG Morphine Morphi 1.0 suspend Morphine eC W3 Sulfate 15 ne {tabl ed Sulfate ER (H udson MG Extended Sulfat et} 15 MG [place] Release e ER Health Oral Tablet 15 MG Care) Morphine Sulfate ER 15 MG Spironolact Spiron 1.0 active Spironola box inspector eCW3 one 25 MG olacto {tabl ne 25 MG (Hu dson Oral Tablet ne 25 et} [facility]) carvedilol Carved active Carvedilol eCW3 3.125 MG ilol 3.125 MG ([place] Oral Tablet 3.125 [place] Carvedilol MG [facility] 3.125 MG [facility]) Vitamin B Vitami 1.0 active Vitamin B e CW3 Complex - n B {tabl Complex - ([place] son Comple et} [facility]) Morphine Morphi 1.0 suspend Morphine eC W3 Sulfate 15 ne {tabl ed Sulfate ER (H udson MG Extended Sulfat et} 15 MG [place] Release e ER Health Oral Tablet 15 MG Care) Morphine Sulfate ER 15 MG 3 ML Victoz active Victoza 18 eCW3 liraglutide a 18 MG/3ML ([place] 6 MG/ML Pen MG/3ML [place] Injector [facility] [Victoza] [facility]) Victoza 18 MG/3ML Vitamin B Vitami 1.0 active Vitamin B e CW3 Complex - n B {tabl Complex - ([place] son Comple et} [facility]) Magnesium Magnes active Magnesium e CW3 Oxide 400 ium Oxide 400 ([place] on MG Oral Oxide (241.3 Mg) [place] Tablet 400 MG Health Magnesium (241.3 Care) Oxide 400 Mg) MG (241.3 Mg) MG clopidogrel Clopid active Clopidogr el eCW3 75 MG Oral ogrel Bisulfate 75 ([place] Tablet Bisulf MG [place] Clopidogrel ate 75 Health Bisulfate MG [facility]) 75 MG Loratadine Clarit 1.0 active Claritin 1 0 eCW3 10 MG Oral in 10 {tabl mg ([place] Tablet mg et} [place] [Claritin] [facility] Claritin 10 Care) mg Spironolact Spiron 1.0 active Spironola box inspector eCW3 one 25 MG olacto {tabl ne 25 MG (Hu dson Oral Tablet ne 25 et} [facility] Health [facility]) Fluticasone Flutic suspend 2 sprays eCW2 Propionate asone ed ([place] 50 MCG/ACT Propio [facility] 50 [facility]) MCG/AC T gabapentin Gabape 1.0 active Gabapentin eCW3 300 MG Oral ntin {caps 300 MG ([place] Capsule 300 MG ule} [place] Gabapentin Health 300 MG [facility]) montelukast Eduardo 1.[address] eCW3 10 MG Oral ukast {tabl Sodium 10 mg ([place] Tablet Sodium et} [place] Montelukast 10 mg Health Sodium 10 [facility]) mg Fluticasone Flutic suspend Fluticas one eCW3 Propionate asone ed Propionate (H udson 50 MCG/ACT Propio 50 MCG/ACT R iver [address]) MCG/AC T 200 ACTUAT Ventol 2.0 suspend Ventolin HFA eCW3 Albuterol in HFA {puff ed 108 (90 ([place]ud son 0.09 108 s} Base) [place] MG/ACTUAT (90 MCG/ACT Health Metered Base) [facility]) Dose MCG/AC Inhaler T [Ventolin] Ventolin HFA 108 (90 Base) MCG/ACT clopidogrel Clopid active Clopidogr el eCW3 75 MG Oral ogrel Bisulfate 75 ([place] Tablet Bisulf MG [place] Clopidogrel ate 75 Health Bisulfate MG [facility]) 75 MG carvedilol Carved active Carvedilol eCW3 3.125 MG ilol 3.125 MG ([place] Oral Tablet 3.125 [place] Carvedilol MG Health 3.125 MG [facility]) Vitamin B Vitami 1.0 active Vitamin B e CW3 Complex - n B {tabl Complex - ([place] son Comple et} [place] x - Health [facility]) 3 ML Victoz active Victoza 18 eCW3 liraglutide a 18 MG/3ML ([place] 6 MG/ML Pen MG/3ML [place] Injector Health [Victoza] [facility]) Victoza 18 MG/3ML Morphine Morphi 1.0 suspend Morphine eC W3 Sulfate 15 ne {tabl ed Sulfate ER (H udson MG Extended Sulfat et} 15 MG [place] Release e ER Health Oral Tablet 15 MG [facility]) Morphine Sulfate ER 15 MG Spironolact Spiron 1.0 active Spironola box inspector eCW3 one 25 MG olacto {tabl ne 25 MG (Hu dson Oral Tablet ne 25 et} [facility] Health Care) Vitamin B Vitami 1.0 active Vitamin B e CW3 Complex - n B {tabl Complex - ([place] son Comple et} [place] x - Health Care) Morphine Morphi suspend 1 tablet eC W2 Sulfate 15 ne ed ([place] MG Extended Sulfat [place] Release e ER Health Oral Tablet 15 MG Care) Morphine Sulfate ER 15 MG 60 ACTUAT Advair active Advair eCW3 Fluticasone Diskus Diskus ([place] son propionate 500-50 500-50 [place] 0.5 mcg/do mcg/dose Health MG/ACTUAT / se Care) salmeterol 0.05 MG/ACTUAT Dry Powder Inhaler [Advair] Advair Diskus 500-50 mcg/dose Morphine Morphi 1.0 suspend Morphine eC W3 Sulfate 15 ne {tabl ed Sulfate ER (H udson MG Extended Sulfat et} 15 MG [place] Release e ER Health Oral Tablet 15 MG Care) Morphine Sulfate ER 15 MG 200 ACTUAT Ventol 2.0 suspend Ventolin HFA eCW3 Albuterol in HFA {puff ed 108 (90 (Hud son 0.09 108 s} Base) [place] MG/ACTUAT (90 MCG/ACT Health Metered Base) Care) Dose MCG/AC Inhaler T [Ventolin] Ventolin HFA 108 (90 Base) MCG/ACT Vitamin B Vitami 1.0 active Vitamin B e CW3 Complex - n B {tabl Complex - ([place] son Comple et} [place] x - Health Care) Spironolact Spiron 1.0 active Spironola box inspector eCW3 one 25 MG olacto {tabl ne 25 MG (Hu dson Oral Tablet ne 25 et} [facility] MG [facility] Care) Vitamin B Vitami 1.0 active Vitamin B e CW3 Complex - n B {tabl Complex - ([place] son Comple et} [place] x - Health Care) montelukast Singul 1.0 active Singulair 10 eCW3 10 MG Oral air 10 {tabl mg ([place] Tablet mg et_in [place] [Singulair] _the_ Health Singulair eveni Care) 10 mg ng} 200 ACTUAT Ventol 2.0 suspend Ventolin HFA eCW3 Albuterol in HFA {puff ed 108 (90 (Hud son 0.09 108 s} Base) [place] MG/ACTUAT (90 MCG/ACT Health Metered Base) Care) Dose MCG/AC Inhaler T [Ventolin] Ventolin HFA 108 (90 Base) MCG/ACT gabapentin Gabape 1.0 active Gabapentin eCW3 300 MG Oral ntin {caps 300 MG ([place] Capsule 300 MG ule} [place] Gabapentin Health 300 MG Care) Losartan Losart active Losartan eCW 3 Potassium an Potassium 50 (H udson 50 MG Oral Potass MG [place] Tablet ium 50 Health MG Care) Magnesium Magnes active Magnesium e CW3 Oxide 400 ium Oxide 400 ([place] on MG Oral Oxide (241.3 Mg) [place] Tablet 400 MG Health Magnesium (241.3 Care) Oxide 400 Mg) MG (241.3 Mg) MG pantoprazol Pantop 1.0 active Pantopraz ole eCW3 e 20 MG razole {tabl Sodium 20 MG ( [place] Delayed Sodium et} [place] Release 20 MG Health Oral Tablet Care) Pantoprazol e Sodium 20 MG Losartan Losart active Losartan eCW 3 Potassium an Potassium 50 (H udson 50 MG Oral Potass MG [place] Tablet ium 50 Health MG Care) Unknown complet eCW2 Medications ed ([facility]) clopidogrel Clopid active Clopidogr el eCW3 75 MG Oral ogrel Bisulfate 75 ([place] Tablet Bisulf MG [place] Clopidogrel ate 75 Health Bisulfate MG Care) 75 MG Magnesium Magnes active Magnesium e CW3 Oxide 400 ium Oxide 400 ([place] on MG Oral Oxide (241.3 Mg) [place] Tablet 400 MG Health Magnesium (241.3 Care) Oxide 400 Mg) MG (241.3 Mg) MG clopidogrel Clopid active Clopidogr el eCW3 75 MG Oral ogrel Bisulfate 75 ([place] Tablet Bisulf MG [place] Clopidogrel ate 75 Health Bisulfate MG Care) 75 MG 3 ML Victoz active Victoza 18 eCW3 liraglutide a 18 MG/3ML ([place] 6 MG/ML Pen MG/3ML [place] Injector Health [Victoza] Care) Victoza 18 MG/3ML Morphine Morphi 1.0 suspend Morphine eC W3 Sulfate 15 ne {tabl ed Sulfate ER (H udson MG Extended Sulfat et} 15 MG [place] Release e ER Health Oral Tablet 15 MG Care) Morphine Sulfate ER 15 MG montelukast Eduardo 1.[address] eCW3 10 MG Oral ukast {tabl Sodium 10 mg ([place] Tablet Sodium et} [place] Montelukast 10 mg Health Sodium 10 Care) mg montelukast Eduardo 1.[address] eCW3 10 MG Oral ukast {tabl Sodium 10 mg ([place] Tablet Sodium et} [place] Montelukast 10 mg Health Sodium 10 Care) mg 200 ACTUAT Ventol 2.0 suspend Ventolin HFA eCW3 Albuterol in HFA {puff ed 108 (90 (Hud son 0.09 108 s} Base) [place] MG/ACTUAT (90 MCG/ACT Health Metered Base) Care) Dose MCG/AC Inhaler T [Ventolin] Ventolin HFA 108 (90 Base) MCG/ACT Morphine Morphi 1.0 suspend Morphine eC W3 Sulfate 15 ne {tabl ed Sulfate ER (H udson MG Extended Sulfat et} 15 MG [place] Release e ER Health Oral Tablet 15 MG Care) Morphine Sulfate ER 15 MG Spironolact Spiron 1.0 active Spironola box inspector eCW3 one 25 MG olacto {tabl ne 25 MG (Hu dson Oral Tablet ne 25 et} [facility] MG Health Care) gabapentin Gabape 1.0 active Gabapentin eCW3 300 MG Oral ntin {caps 300 MG ([place] on Capsule 300 MG ule} [place] Gabapentin Health 300 MG Care) pantoprazol Pantop 1.0 active Pantopraz ole eCW3 e 20 MG razole {tabl Sodium 20 MG ( [place] Delayed Sodium et} [place] Release 20 MG Health Oral Tablet Care) Pantoprazol e Sodium 20 MG montelukast Eduardo 1.[address] eCW3 10 MG Oral ukast {tabl Sodium 10 mg ([place] Tablet Sodium et} [place] Montelukast 10 mg Health Sodium 10 Care) mg Losartan Losart active Losartan eCW 3 Potassium an Potassium 50 (H udson 50 MG Oral Potass MG [place] Tablet ium 50 Health MG Care) Morphine Morphi 1.0 suspend Morphine eC W3 Sulfate 15 ne {tabl ed Sulfate ER (H udson MG Extended Sulfat et} 15 MG [place] Release e ER Health Oral Tablet 15 MG Care) Morphine Sulfate ER 15 MG Fluticasone Flutic suspend Fluticas one eCW3 Propionate asone ed Propionate (H udson 50 MCG/ACT Propio 50 MCG/ACT [place] [id number] Care) MCG/AC T Loratadine Clarit 1.0 active Claritin 1 0 eCW3 10 MG Oral in 10 {tabl mg ([place] Tablet mg et} [place] [[facility]] [facility] 10 [facility]) mg pantoprazol Pantop 1.0 active Pantopraz ole eCW3 e 20 MG razole {tabl Sodium 20 MG ( [place] Delayed Sodium et} [place] Release 20 MG Health Oral Tablet Care) Pantoprazol e Sodium 20 MG Fluticasone Flutic suspend Fluticas one eCW3 Propionate asone ed Propionate (H udson 50 MCG/ACT Propio 50 MCG/ACT [place] [id number] Care) MCG/AC T Losartan Losart active Losartan eCW 3 Potassium an Potassium 50 (H udson 50 MG Oral Potass MG [place] Tablet ium 50 Health MG Care) Loratadine Clarit 1.0 active Claritin 1 0 eCW3 10 MG Oral in 10 {tabl mg ([place] Tablet mg et} [place] [[facility]] [facility] 10 [facility]) mg clopidogrel Clopid active Clopidogr el eCW3 75 MG Oral ogrel Bisulfate 75 ([place] Tablet Bisulf MG [place] Clopidogrel ate 75 Health Bisulfate MG Care) 75 MG Loratadine Clarit 1.0 active Claritin 1 0 eCW3 10 MG Oral in 10 {tabl mg ([place] Tablet mg et} [place] [[facility]] [facility] 10 [facility]) mg Morphine Morphi 1.0 suspend Morphine eC W3 Sulfate 15 ne {tabl ed Sulfate ER (H udson MG Extended Sulfat et} 15 MG [place] Release e ER Health Oral Tablet 15 MG Care) Morphine Sulfate ER 15 MG carvedilol Carved active Carvedilol eCW3 3.125 MG ilol 3.125 MG ([place] Oral Tablet 3.125 [place] Carvedilol MG Health 3.125 MG Care) Fluticasone Flutic suspend Fluticas one eCW3 Propionate asone ed Propionate ([facility] ud[facility] 50 MCG/ACT Propio 50 MCG/ACT [place] [id number] Care) MCG/AC T pantoprazol Pantop 1.0 active Pantopraz ole eCW3 e 20 MG razole {tabl Sodium 20 MG ( [place] Delayed Sodium et} [place] Release 20 MG Health Oral Tablet Care) Pantoprazol e Sodium 20 MG montelukast Eduardo 1.[address] eCW3 10 MG Oral ukast {tabl Sodium 10 mg ([place] Tablet Sodium et} [place] Montelukast 10 mg Health Sodium 10 Care) mg Losartan Losart active Losartan eCW 3 Potassium an Potassium 50 ([place] [facility] 50 MG Oral Potass MG [place] Tablet ium 50 Health MG Care) Morphine Morphi 1.0 suspend Morphine eC W3 Sulfate 15 ne {tabl ed Sulfate ER ([facility] MG Extended Sulfat et} 15 MG [place] Release e ER Health Oral Tablet 15 MG Care) Morphine Sulfate ER 15 MG Losartan Losart active Losartan eCW 3 Potassium an Potassium 50 ([facility] 50 MG Oral Potass MG [place] Tablet ium 50 Health MG Care) Morphine Morphi 1.0 suspend Morphine eC W3 Sulfate 15 ne {tabl ed Sulfate ER ([facility] MG Extended Sulfat et} 15 MG [place] Release e ER Health Oral Tablet 15 MG Care) Morphine Sulfate ER 15 MG Losartan Losart active Losartan eCW 3 Potassium an Potassium 50 ([facility] 50 MG Oral Potass MG [place] Tablet ium 50 Health MG Care) carvedilol Carved active Carvedilol eCW3 3.125 MG ilol 3.125 MG ([place] Oral Tablet 3.125 [place] Carvedilol MG Health 3.125 MG Care) Morphine Morphi 1.0 suspend Morphine eC W3 Sulfate 15 ne {tabl ed Sulfate ER ([facility] MG Extended Sulfat et} 15 MG [place] Release e ER Health Oral Tablet 15 MG Care) Morphine Sulfate ER 15 MG Magnesium Magnes active Magnesium e CW3 Oxide 400 ium Oxide 400 ([place] MG Oral Oxide (241.3 Mg) [place] Tablet 400 MG Health Magnesium (241.3 Care) Oxide 400 Mg) MG (241.3 Mg) MG 3 ML Victoz active Victoza 18 eCW3 liraglutide a 18 MG/3ML ([place] 6 MG/ML Pen MG/3ML [place] Inject[facility] [Victoza] Care) Victoza 18 MG/3ML Spironolact Spiron 1.0 active Spironola box inspector eCW3 one 25 MG olacto {tabl ne 25 MG ([facility] Oral Tablet ne 25 et} [facility] MG Health Care) montelukast Eduardo 1.[address] eCW3 10 MG Oral ukast {tabl Sodium 10 mg ([place] Tablet Sodium et} [place] Montelukast 10 mg Health Sodium 10 Care) mg Morphine Morphi 1.0 suspend Morphine eC W3 Sulfate 15 ne {tabl ed Sulfate ER ([facility] MG Extended Sulfat et} 15 MG [place] Release e ER Health Oral Tablet 15 MG Care) Morphine Sulfate ER 15 MG montelukast Eduardo 1.[address] eCW3 10 MG Oral ukast {tabl Sodium 10 mg ([place] Tablet Sodium et} [place] Montelukast 10 mg Health Sodium 10 Care) mg 3 ML Victoz active Victoza 18 eCW3 liraglutide a 18 MG/3ML ([place] 6 MG/ML Pen MG/3ML [place] Inject[facility] Health [Victoza] Care) Victoza 18 MG/3ML Magnesium Magnes active Magnesium e CW3 Oxide 400 ium Oxide 400 ([place] MG Oral Oxide (241.3 Mg) [place] Tablet 400 MG Health Magnesium (241.3 Care) Oxide 400 Mg) MG (241.3 Mg) MG Fluticasone Flutic suspend Fluticas one eCW3 Propionate asone ed Propionate ([facility] 50 MCG/ACT Propio 50 MCG/ACT R i[facility] cheri [facility] 50 Care) MCG/AC T 60 ACTUAT Advair active Advair eCW3 Fluticasone Diskus Diskus ([place] propionate 500-50 500-50 [place] 0.5 mcg/do mcg/dose Health MG/ACTUAT / se Care) salmeterol 0.05 MG/ACTUAT Dry Powder Inhaler [Advair] Advair Diskus 500-50 mcg/dose rivaroxaban Xarelt active Xarelto 2 0 eCW3 20 MG Oral o 20 MG ([place] Tablet MG [place] [Xarelto] Health Xarelto 20 Care) MG Vitamin B Vitami 1.0 active Vitamin B e CW3 Complex - n B {tabl Complex - ([place] [facility] Comple et} [place] x - Health Care) Spironolact Spiron 1.0 active Spironola box inspector eCW3 one 25 MG olacto {tabl ne 25 MG ([facility] Oral Tablet ne 25 et} [facility]) 200 ACTUAT Ventol 2.0 suspend Ventolin HFA eCW3 Albuterol in HFA {puff ed 108 (90 ([place] 0.09 108 s} Base) [place] MG/ACTUAT (90 MCG/ACT Health Metered Base) Care) Dose MCG/AC Inhaler T [Ventolin] Ventolin HFA 108 (90 Base) MCG/ACT gabapentin Gabape 1.0 active Gabapentin eCW3 300 MG Oral ntin {caps 300 MG ([place] Capsule 300 MG ule} [place] Gabapentin Health 300 MG Care) clopidogrel Clopid active Clopidogr el eCW3 75 MG Oral ogrel Bisulfate 75 ([place] Tablet Bisulf MG [place] Clopidogrel ate 75 Health Bisulfate MG Care) 75 MG montelukast Eduardo 1.[address] eCW3 10 MG Oral ukast {tabl Sodium 10 mg ([place] Tablet Sodium et} [place] Montelukast 10 mg Health Sodium 10 Care) mg pantoprazol Pantop 1.0 active Pantopraz ole eCW3 e 20 MG razole {tabl Sodium 20 MG ( [place] Delayed Sodium et} [place] Release 20 MG Health Oral Tablet Care) Pantoprazol e Sodium 20 MG 60 ACTUAT Advair active Advair eCW3 Fluticasone Diskus Diskus ([place] propionate 500-50 500-50 [place] 0.5 mcg/do mcg/dose Health MG/ACTUAT / se Care) salmeterol 0.05 MG/ACTUAT Dry Powder Inhaler [Advair] Advair Diskus 500-50 mcg/dose Fluticasone Flutic suspend Fluticas one eCW3 Propionate asone ed Propionate ([facility] 50 MCG/ACT Propio 50 MCG/ACT R iver cheri Health 50 Care) MCG/AC T Morphine Morphi 1.0 suspend Morphine eC W3 Sulfate 15 ne {tabl ed Sulfate ER ([facility] MG Extended Sulfat et} 15 MG [place] Release e ER Health Oral Tablet 15 MG Care) Morphine Sulfate ER 15 MG pantoprazol Pantop 1.0 active Pantopraz ole eCW3 e 20 MG razole {tabl Sodium 20 MG ( [place] Delayed Sodium et} [place] Release 20 MG Health Oral Tablet Care) Pantoprazol e Sodium 20 MG montelukast Eduardo 1.[address] eCW3 10 MG Oral ukast {tabl Sodium 10 mg ([place] Tablet Sodium et} [place] Montelukast 10 mg Health Sodium 10 Care) mg 3 ML Victoz active Victoza 18 eCW3 liraglutide a 18 MG/3ML ([place] 6 MG/ML Pen MG/3ML [place] Injector Health [Victoza] Care) Victoza 18 MG/3ML Unknown complet eCW2 Medications ed ([facility]) carvedilol Carved active Carvedilol eCW3 3.125 MG ilol 3.125 MG ([facility] [employer] Oral Tablet 3.125 [place] Carvedilol MG [facility] 3.125 MG Care) Vitamin B Vitami 1.0 active Vitamin B e CW3 Complex - n B {tabl Complex - ([facility] Comple et} [facility]) carvedilol Carved active Carvedilol eCW3 3.125 MG ilol 3.125 MG ([facility] [employer] [facility] Oral Tablet 3.125 [place] Carvedilol MG [facility] 3.125 MG [facility]) rivaroxaban Xarelt active Xarelto 2 0 eCW3 20 MG Oral o 20 MG ([facility] [employer] [facility] Tablet MG [place] [Xarelto] [facility] Xarelto 20 [facility]) MG 3 ML Victoz active Victoza 18 eCW3 liraglutide a 18 MG/3ML ([place] 6 MG/ML Pen MG/3ML [place] Injector Health [Victoza] Care) Victoza 18 MG/3ML 60 ACTUAT Advair active Advair eCW3 Fluticasone Diskus Diskus ([facility] propionate 500-50 500-50 [place] 0.5 mcg/do mcg/dose Health MG/ACTUAT / se Care) salmeterol 0.05 MG/ACTUAT Dry Powder Inhaler [Advair] Advair Diskus 500-50 mcg/dose pantoprazol Pantop 1.0 active Pantopraz ole eCW3 e 20 MG razole {tabl Sodium 20 MG ( [employer] Delayed Sodium et} [place] Release 20 MG Health Oral Tablet Care) Pantoprazol e Sodium 20 MG Vitamin B Vitami 1.0 active Vitamin B e CW3 Complex - n B {tabl Complex - ([facility] son Comple et} [facility]) 60 ACTUAT Advair active Advair eCW3 Fluticasone Diskus Diskus ([facility] propionate 500-50 500-50 [place] 0.5 mcg/do mcg/dose Health MG/ACTUAT / se Care) salmeterol 0.05 MG/ACTUAT Dry Powder Inhaler [Advair] Advair Diskus 500-50 mcg/dose montelukast Eduardo 1.[address] eCW3 10 MG Oral ukast {tabl Sodium 10 mg ([place] Tablet Sodium et} [place] Montelukast 10 mg Health Sodium 10 Care) mg carvedilol Carved active Carvedilol eCW3 3.125 MG ilol 3.125 MG ([place] Oral Tablet 3.125 [place] Carvedilol MG Health 3.125 MG Care) Spironolact Spiron 1.0 active Spironola box inspector eCW3 one 25 MG olacto {tabl ne 25 MG ([facility] Oral Tablet ne 25 et} [facility]) 60 ACTUAT Advair active Advair eCW3 Fluticasone Diskus Diskus ([place] propionate 500-50 500-50 [place] 0.5 mcg/do mcg/dose Health MG/ACTUAT / se Care) salmeterol 0.05 MG/ACTUAT Dry Powder Inhaler [Advair] Advair Diskus 500-50 mcg/dose carvedilol Carved active Carvedilol eCW3 3.125 MG ilol 3.125 MG ([place] Oral Tablet 3.125 [place] Carvedilol MG [facility] 3.125 MG Care) Losartan Losart active Losartan eCW 3 Potassium an Potassium 50 ([place] [facility] 50 MG Oral Potass MG [place] Tablet ium 50 Health MG Care) gabapentin Gabape 1.0 active Gabapentin eCW3 300 MG Oral ntin {caps 300 MG ([place] Capsule 300 MG ule} [place] Gabapentin Health 300 MG Care) rivaroxaban Xarelt active Xarelto 2 0 eCW3 20 MG Oral o 20 MG ([place] Tablet MG [place] [Xarelto] [facility] Xarelto 20 Care) MG 200 ACTUAT Ventol 2.0 suspend Ventolin HFA eCW3 Albuterol in HFA {puff ed 108 (90 ([place] 0.09 108 s} Base) [place] MG/ACTUAT (90 MCG/ACT Health Metered Base) Care) Dose MCG/AC Inhaler T [Ventolin] Ventolin HFA 108 (90 Base) MCG/ACT montelukast Eduardo 1.[address] eCW3 10 MG Oral ukast {tabl Sodium 10 mg ([place] Tablet Sodium et} [place] Montelukast 10 mg Health Sodium 10 Care) mg Magnesium Magnes active Magnesium e CW3 Oxide 400 ium Oxide 400 ([place] MG Oral Oxide (241.3 Mg) [place] Tablet 400 MG Health Magnesium (241.3 Care) Oxide 400 Mg) MG (241.3 Mg) MG 3 ML Victoz active Victoza 18 eCW3 liraglutide a 18 MG/3ML ([place] 6 MG/ML Pen MG/3ML [place] Inject[facility] [Victoza] Care) Victoza 18 MG/3ML montelukast Eduardo 1.[address] eCW3 10 MG Oral ukast {tabl Sodium 10 mg ([place] Tablet Sodium et} [place] Montelukast 10 mg Health Sodium 10 Care) mg Losartan Losart active Losartan eCW 3 Potassium an Potassium 50 ([place] 50 MG Oral Potass MG [place] Tablet ium 50 Health MG Care) pantoprazol Pantop 1.0 active Pantopraz ole eCW3 e 20 MG razole {tabl Sodium 20 MG ( [place] Delayed Sodium et} [place] Release 20 MG Health Oral Tablet Care) Pantoprazol e Sodium 20 MG rivaroxaban Xarelt active Xarelto 2 0 eCW3 20 MG Oral o 20 MG ([place] Tablet MG [place] [Xarelto] Health Xarelto 20 Care) MG Vitamin B Vitami active 1 tablet eC W2 Complex - n B ([place] Comple [place] x - Health Care) Magnesium Magnes active Magnesium e CW3 Oxide 400 ium Oxide 400 ([place] MG Oral Oxide (241.3 Mg) [place] Tablet 400 MG Health Magnesium (241.3 Care) Oxide 400 Mg) MG (241.3 Mg) MG pantoprazol Pantop 1.0 active Pantopraz ole eCW3 e 20 MG razole {tabl Sodium 20 MG ( [place] Delayed Sodium et} [place] Release 20 MG Health Oral Tablet Care) Pantoprazol e Sodium 20 MG gabapentin Gabape 1.0 active Gabapentin eCW3 300 MG Oral ntin {caps 300 MG ([place] Capsule 300 MG ule} [place] Gabapentin Health 300 MG Care) Fluticasone Flutic suspend Fluticas one eCW3 Propionate asone ed Propionate ([facility] ud[place] 50 MCG/ACT Propio 50 MCG/ACT R iver cheri Health 50 Care) MCG/AC T 200 ACTUAT Ventol suspend 2 puffs e CW2 Albuterol in HFA ed ([place] 0.09 108 [place] MG/ACTUAT (90 Health Metered Base) Care) Dose MCG/AC Inhaler T [Ventolin] Ventolin HFA 108 (90 Base) MCG/ACT Loratadine Clarit 1.0 active Claritin 1 0 eCW3 10 MG Oral in 10 {tabl mg ([place] Tablet mg et} [place] [Claritin] Health Claritin 10 Care) mg Vitamin B Vitami 1.0 active Vitamin B e CW3 Complex - n B {tabl Complex - ([place] Comple et} [place] x - Health [facility]) montelukast Eduardo 1.[address] eCW3 10 MG Oral ukast {tabl Sodium 10 mg ([place] Tablet Sodium et} [place] Montelukast 10 mg Health Sodium 10 Care) mg Loratadine Clarit 1.0 active Claritin 1 0 eCW3 10 MG Oral in 10 {tabl mg ([place] Tablet mg et} [place] [Claritin] Health Claritin 10 Care) mg 60 ACTUAT Advair active Advair eCW3 Fluticasone Diskus Diskus ([place] propionate 500-50 500-50 [place] 0.5 mcg/do mcg/dose Health MG/ACTUAT / se Care) salmeterol 0.05 MG/ACTUAT Dry Powder Inhaler [Advair] Advair Diskus 500-50 mcg/dose 200 ACTUAT Ventol 2.0 suspend Ventolin HFA eCW3 Albuterol in HFA {puff ed 108 (90 ([place] 0.09 108 s} Base) [place] MG/ACTUAT (90 MCG/ACT Health Metered Base) Care) Dose MCG/AC Inhaler T [Ventolin] Ventolin HFA 108 (90 Base) MCG/ACT Spironolact Spiron 1.0 active Spironola box inspector eCW3 one 25 MG olacto {tabl ne 25 MG ([facility] Oral Tablet ne 25 et} [facility]) Fluticasone Flutic suspend Fluticas one eCW3 Propionate asone ed Propionate ([place] ud[place] 50 MCG/ACT Propio 50 [facility] MCG/AC T pantoprazol Pantop 1.0 active Pantopraz ole eCW3 e 20 MG razole {tabl Sodium 20 MG ( [place] Delayed Sodium et} [place] Release 20 MG Health Oral Tablet Care) Pantoprazol e Sodium 20 MG Loratadine Clarit 1.0 active Claritin 1 0 eCW3 10 MG Oral in 10 {tabl mg ([place] Tablet mg et} [place] [Claritin] Health Claritin 10 Care) mg Losartan Losart active Losartan eCW 3 Potassium an Potassium 50 ([place] 50 MG Oral Potass MG [place] Tablet ium 50 Health MG Care) Losartan Losart active Losartan eCW 3 Potassium an Potassium 50 ([place] 50 MG Oral Potass MG [place] Tablet ium 50 Health MG Care) Loratadine Clarit 1.0 active Claritin 1 0 eCW3 10 MG Oral in 10 {tabl mg ([place] Tablet mg et} [place] [Claritin] [facility] Claritin 10 Care) mg rivaroxaban Xarelt active Xarelto 2 0 eCW3 20 MG Oral o 20 MG ([place] Tablet MG [place] [Xarelto] [facility] Xarelto 20 Care) MG 60 ACTUAT Advair active Advair eCW3 Fluticasone Diskus Diskus ([place] propionate 500-50 500-50 [place] 0.5 mcg/do mcg/dose Health MG/ACTUAT / se Care) salmeterol 0.05 MG/ACTUAT Dry Powder Inhaler [Advair] Advair Diskus 500-50 mcg/dose 200 ACTUAT Ventol 2.0 suspend Ventolin HFA eCW3 Albuterol in HFA {puff ed 108 (90 ([place] 0.09 108 s} Base) [place] MG/ACTUAT (90 MCG/ACT Health Metered Base) Care) Dose MCG/AC Inhaler T [Ventolin] Ventolin HFA 108 (90 Base) MCG/ACT Fluticasone Flutic suspend Fluticas one eCW3 Propionate asone ed Propionate ([facility] 50 MCG/ACT Propio 50 MCG/ACT R iver cheri Health 50 Care) MCG/AC T Loratadine Clarit 1.0 active Claritin 1 0 eCW3 10 MG Oral in 10 {tabl mg ([place] Tablet mg et} [place] [Claritin] [facility] Claritin 10 Care) mg carvedilol Carved active Carvedilol eCW3 3.125 MG ilol 3.125 MG ([place] Oral Tablet 3.125 [place] Carvedilol MG [facility] 3.125 MG Care) 200 ACTUAT Ventol 2.0 suspend Ventolin HFA eCW3 Albuterol in HFA {puff ed 108 (90 ([place] son 0.09 108 s} Base) [place] MG/ACTUAT (90 MCG/ACT Health Metered Base) Care) Dose MCG/AC Inhaler T [Ventolin] Ventolin HFA 108 (90 Base) MCG/ACT 60 ACTUAT Advair active Advair eCW3 Fluticasone Diskus Diskus ([place] propionate 500-50 500-50 [place] 0.5 mcg/do mcg/dose Health MG/ACTUAT / se Care) salmeterol 0.05 MG/ACTUAT Dry Powder Inhaler [Advair] Advair Diskus 500-50 mcg/dose Omeprazole Omepra active Omeprazole eCW3 20 MG zole 20 MG ([place] Delayed 20 MG [place] Release Health Oral Care) Capsule rivaroxaban Xarelt active Xarelto 2 0 eCW3 20 MG Oral o 20 MG ([place] Tablet MG [place] [Xarelto] [facility] Xarelto 20 [facility]) MG carvedilol Carved active Carvedilol eCW3 3.125 MG ilol 3.125 MG ([place] Oral Tablet 3.125 [place] Carvedilol MG [facility] 3.125 MG Care) clopidogrel Clopid active Clopidogr el eCW3 75 MG Oral ogrel Bisulfate 75 ([place] Tablet Bisulf MG [place] Clopidogrel ate 75 [facility] Bisulfate MG [facility]) 75 MG carvedilol Carved active Carvedilol eCW3 3.125 MG ilol 3.125 MG ([place] Oral Tablet 3.125 [place] Carvedilol MG [facility] 3.125 MG Care) 3 ML Victoz active Victoza 18 eCW3 liraglutide a 18 MG/3ML ([place] 6 MG/ML Pen MG/3ML [place] [facility] Care) Victoza 18 MG/3ML 3 ML Victoz active Victoza 18 eCW3 liraglutide a 18 MG/3ML ([place] 6 MG/ML Pen MG/3ML [place] [facility] [Victoza[facility] Care) Victoza 18 MG/3ML Spironolact Spiron 1.0 active Spironola box inspector eCW3 one 25 MG olacto {tabl ne 25 MG ([facility] Oral Tablet ne 25 et} [facility] MG Health Care) Losartan Losart active Losartan eCW 3 Potassium an Potassium 50 ([place] 50 MG Oral Potass MG [place] Tablet ium 50 Health MG Care) pantoprazol Pantop 1.0 active Pantopraz ole eCW3 e 20 MG razole {tabl Sodium 20 MG ( [place] Delayed Sodium et} [place] Release 20 MG Health Oral Tablet Care) Pantoprazol e Sodium 20 MG montelukast Eduardo 1.[address] eCW3 10 MG Oral ukast {tabl Sodium 10 mg ([place] Tablet Sodium et} [place] Montelukast 10 mg Health Sodium 10 Care) mg Magnesium Magnes active Magnesium e CW3 Oxide 400 ium Oxide 400 ([place] MG Oral Oxide (241.3 Mg) [place] Tablet 400 MG Health Magnesium (241.3 Care) Oxide 400 Mg) MG (241.3 Mg) MG Fluticasone Flutic suspend Fluticas one eCW3 Propionate asone ed Propionate ([facility] 50 MCG/ACT Propio 50 MCG/ACT R iver cheri Health 50 Care) MCG/AC T clopidogrel Clopid active Clopidogr el eCW3 75 MG Oral ogrel Bisulfate 75 ([place] Tablet Bisulf MG [place] Clopidogrel ate 75 Health Bisulfate MG Care) 75 MG montelukast Eduardo 1.[address] eCW3 10 MG Oral ukast {tabl Sodium 10 mg ([place] Tablet Sodium et} [place] Montelukast 10 mg Health Sodium 10 Care) mg 60 ACTUAT Advair active Advair eCW3 Fluticasone Diskus Diskus ([place] propionate 500-50 500-50 [place] 0.5 mcg/do mcg/dose Health MG/ACTUAT / se Care) salmeterol 0.05 MG/ACTUAT Dry Powder Inhaler [Advair] Advair Diskus 500-50 mcg/dose Loratadine Clarit 1.0 active Claritin 1 0 eCW3 10 MG Oral in 10 {tabl mg ([place] Tablet mg et} [place] [Claritin] Health Claritin 10 Care) mg Vitamin B Vitami 1.0 active Vitamin B e CW3 Complex - n B {tabl Complex - ([place] [facility] Comple et} [place] x - Health Care) 200 ACTUAT Ventol 2.0 suspend Ventolin HFA eCW3 Albuterol in HFA {puff ed 108 (90 ([place] son 0.09 108 s} Base) [place] MG/ACTUAT (90 MCG/ACT Health Metered Base) Care) Dose MCG/AC Inhaler T [Ventolin] Ventolin HFA 108 (90 Base) MCG/ACT carvedilol Carved active Carvedilol eCW3 3.125 MG ilol 3.125 MG ([place] Oral Tablet 3.125 [place] Carvedilol [facility] 3.125 MG [facility]) Fluticasone Flutic suspend Fluticas one eCW3 Propionate asone ed Propionate ([facility] 50 MCG/ACT Propio 50 [facility]CG/ACT [facility] Care) MCG/AC T carvedilol Carved active Carvedilol eCW3 3.125 MG ilol 3.125 MG ([place] Oral Tablet 3.125 [place] Carvedilol [facility] 3.125 MG [facility]) carvedilol Carved active Carvedilol eCW3 3.125 MG ilol 3.125 MG ([place] Oral Tablet 3.125 [place] Carvedilol [facility] 3.125 MG [facility]) gabapentin Gabape 1.0 active Gabapentin eCW3 300 MG Oral ntin {caps 300 MG ([place] Capsule 300 MG ule} [place] Gabapentin [facility] 300 MG [facility]) Spironolact Spiron 1.0 active Spironola box inspector eCW3 one 25 MG olacto {tabl ne 25 MG ([facility] Oral Tablet ne 25 et} [facility]) Omeprazole Omepra active Omeprazole eCW3 20 MG zole 20 MG ([place] Delayed 20 MG [place] Release Health Oral Care) Capsule Loratadine Clarit 1.0 active Claritin 1 0 eCW3 10 MG Oral in 10 {tabl mg ([place] Tablet mg et} [place] [Claritin] [facility] Claritin 10 [facility]) mg 200 ACTUAT Ventol 2.0 suspend Ventolin HFA eCW3 Albuterol in HFA {puff ed 108 (90 ([place] 0.09 108 s} Base) [place] MG/ACTUAT (90 MCG/ACT Health Metered Base) Care) Dose MCG/AC Inhaler T [Ventolin] Ventolin HFA 108 (90 Base) MCG/ACT gabapentin Gabape 1.0 active Gabapentin eCW3 300 MG Oral ntin {caps 300 MG ([place] Capsule 300 MG ule} [place] Gabapentin Health 300 MG Care) 3 ML Victoz active Victoza 18 eCW3 liraglutide a 18 MG/3ML ([place] 6 MG/ML Pen MG/3ML [place] Injector Health [Victoza] Care) Victoza 18 MG/3ML 200 ACTUAT Ventol 2.0 suspend Ventolin HFA eCW3 Albuterol in HFA {puff ed 108 (90 ([place] son 0.09 108 s} Base) [place] MG/ACTUAT (90 MCG/ACT Health Metered Base) Care) Dose MCG/AC Inhaler T [Ventolin] Ventolin HFA 108 (90 Base) MCG/ACT Losartan Losart active Losartan eCW 3 Potassium an Potassium 50 ([place] [facility] 50 MG Oral Potass MG [place] Tablet ium 50 Health MG Care) Losartan Losart active Losartan eCW 3 Potassium an Potassium 50 ([place] 50 MG Oral Potass MG [place] Tablet ium 50 Health MG Care) Fluticasone Flutic suspend Fluticas one eCW3 Propionate asone ed Propionate ([facility] 50 MCG/ACT Propio 50 MCG/ACT R iver cheri Health 50 Care) MCG/AC T Losartan Losart active Losartan eCW 3 Potassium an Potassium 50 ([place] 50 MG Oral Potass MG [place] Tablet ium 50 Health MG Care) 3 ML Victoz active Victoza 18 eCW3 liraglutide a 18 MG/3ML ([place] 6 MG/ML Pen MG/3ML [place] Injector Health [Victoza] Care) Victoza 18 MG/3ML Vitamin B Vitami 1.0 active Vitamin B e CW3 Complex - n B {tabl Complex - ([facility] Comple et} [place] x - Health Care) Vitamin B Vitami 1.0 active Vitamin B e CW3 Complex - n B {tabl Complex - ([place] Comple et} [place] x - Health Care) 60 ACTUAT Advair active Advair eCW3 Fluticasone Diskus Diskus ([place] [facility] propionate 500-50 500-50 [place] 0.5 mcg/do mcg/dose Health MG/ACTUAT / se Care) salmeterol 0.05 MG/ACTUAT Dry Powder Inhaler [Advair] Advair Diskus 500-50 mcg/dose Morphine Morphi 1.0 suspend Morphine eC W3 Sulfate 15 ne {tabl ed Sulfate ER (H udson MG Extended Sulfat et} 15 MG [place] Release e ER Health Oral Tablet 15 MG Care) Morphine Sulfate ER 15 MG Loratadine Clarit 1.0 active Claritin 1 0 eCW3 10 MG Oral in 10 {tabl mg ([place] Tablet mg et} [place] [Claritin] Health Claritin 10 Care) mg Omeprazole Omepra active Omeprazole eCW3 20 MG zole 20 MG ([place] Delayed 20 MG [place] Release Health Oral Care) Capsule Loratadine Clarit 1.0 active Claritin 1 0 eCW3 10 MG Oral in 10 {tabl mg ([place] Tablet mg et} [place] [Claritin] [facility] Claritin 10 Care) mg 200 ACTUAT Ventol 2.0 suspend Ventolin HFA eCW3 Albuterol in HFA {puff ed 108 (90 ([place] son 0.09 108 s} Base) [place] MG/ACTUAT (90 MCG/ACT Health Metered Base) Care) Dose MCG/AC Inhaler T [Ventolin] Ventolin HFA 108 (90 Base) MCG/ACT Magnesium Magnes active Magnesium e CW3 Oxide 400 ium Oxide 400 ([place] MG Oral Oxide (241.3 Mg) [place] Tablet 400 MG Health Magnesium (241.3 Care) Oxide 400 Mg) MG (241.3 Mg) MG Amlodipine Amlodi active 1 capsule eCW2 10 MG / pine ([place] Benazepril Besy-B [place] hydrochlori enazep Health de 40 MG ril Care) Oral HCl Capsule 10-40 Amlodipine MG Besy-Benaze pril HCl 10-40 MG Loratadine Clarit 1.0 active Claritin 1 0 eCW3 10 MG Oral in 10 {tabl mg ([place] Tablet mg et} [place] [Claritin] Health Claritin 10 Care) mg Magnesium Magnes active Magnesium e CW3 Oxide 400 ium Oxide 400 ([place] MG Oral Oxide (241.3 Mg) [place] Tablet 400 MG Health Magnesium (241.3 Care) Oxide 400 Mg) MG (241.3 Mg) MG rivaroxaban Xarelt active Xarelto 2 0 eCW3 20 MG Oral o 20 MG ([place] Tablet MG [place] [Xarelto] Health Xarelto 20 Care) MG 200 ACTUAT Ventol 2.0 suspend Ventolin HFA eCW3 Albuterol in HFA {puff ed 108 (90 ([place] son 0.09 108 s} Base) [place] MG/ACTUAT (90 MCG/ACT Health Metered Base) Care) Dose MCG/AC Inhaler T [Ventolin] Ventolin HFA 108 (90 Base) MCG/ACT pantoprazol Pantop 1.0 active Pantopraz ole eCW3 e 20 MG razole {tabl Sodium 20 MG ( [place] Delayed Sodium et} [place] Release 20 MG Health Oral Tablet Care) Pantoprazol e Sodium 20 MG Unknown complet eCW2 Medications ed ([facility]) Loratadine Clarit 1.0 active Claritin 1 0 eCW3 10 MG Oral in 10 {tabl mg ([place] Tablet mg et} [place] [[facility]] [address]) mg Spironolact Spiron 1.0 active Spironola box inspector eCW3 one 25 MG olacto {tabl ne 25 MG (Hu d[facility] Oral Tablet ne 25 et} [facility]) Spironolact Spiron 1.0 active Spironola box inspector eCW3 one 25 MG olacto {tabl ne 25 MG ([facility] d[facility] Oral Tablet ne 25 et} [facility]) Vitamin B Vitami 1.0 active Vitamin B e CW3 Complex - n B {tabl Complex - ([facility] Comple et} [place] x - Health [facility]) Loratadine Clarit 1.0 active Claritin 1 0 eCW3 10 MG Oral in 10 {tabl mg ([place] Tablet mg et} [place] [[facility]] [address]) mg pantoprazol Pantop 1.0 active Pantopraz ole eCW3 e 20 MG razole {tabl Sodium 20 MG ( [place] Delayed Sodium et} [place] Release 20 MG Health Oral Tablet Care) Pantoprazol e Sodium 20 MG Loratadine Clarit 1.0 active Claritin 1 0 eCW3 10 MG Oral in 10 {tabl mg ([place] Tablet mg et} [place] [[facility]] [facility] 10 [facility]) mg 200 ACTUAT Ventol 2.0 suspend Ventolin HFA eCW3 Albuterol in HFA {puff ed 108 (90 (Hud son 0.09 108 s} Base) [place] MG/ACTUAT (90 MCG/ACT Health Metered Base) Care) Dose MCG/AC Inhaler T [Ventolin] Ventolin HFA 108 (90 Base) MCG/ACT rivaroxaban Xarelt active Xarelto 2 0 eCW3 20 MG Oral o 20 MG ([place] Tablet MG [place] [Xarelto] [facility] Xarelto 20 [facility]) MG Claritin 10 Clarit 1.0 active Claritin 10 eCW3 mg in 10 {tabl mg ([place] mg et} [facility]) montelukast Singul suspend 1 tablet in eCW2 10 MG Oral air 10 ed the evening ([place] Tablet mg [place] [Singulair] [facility] Singulair [facility]) 10 mg Vitamin B Vitami 1.0 active Vitamin B e CW3 Complex - n B {tabl Complex - (Hud son Comple et} [place] x - Health [facility]) clopidogrel Clopid active Clopidogr el eCW3 75 MG Oral ogrel Bisulfate 75 ([place] Tablet Bisulf MG [place] Clopidogrel ate 75 [facility] Bisulfate MG [facility]) 75 MG montelukast Eduardo 1.[address] eCW3 10 MG Oral ukast {tabl Sodium 10 mg ([place] Tablet Sodium et} [place] Montelukast 10 mg [facility] Sodium 10 [facility]) mg gabapentin Gabape 1.0 active Gabapentin eCW3 300 MG Oral ntin {caps 300 MG ([place] on Capsule 300 MG ule} [place] Gabapentin Health 300 MG [facility]) clopidogrel Clopid active Clopidogr el eCW3 75 MG Oral ogrel Bisulfate 75 ([place] Tablet Bisulf MG [place] Clopidogrel ate 75 [facility] Bisulfate MG [facility]) 75 MG Magnesium Magnes active Magnesium e CW3 Oxide 400 ium Oxide 400 (Huds on MG Oral Oxide (241.3 Mg) [place] Tablet 400 MG Health Magnesium (241.3 Care) Oxide 400 Mg) MG (241.3 Mg) MG 3 ML Victoz active Victoza 18 eCW3 liraglutide a 18 MG/3ML ([place]so n 6 MG/ML Pen MG/3ML [place] Injector [facility] [Victoza] [facility]) Victoza 18 MG/3ML Loratadine Clarit 1.0 active Claritin 1 0 eCW3 10 MG Oral in 10 {tabl mg ([place] Tablet mg et} [place] [Claritin] [facility] Claritin 10 [facility]) mg Morphine Morphi 1.0 suspend Morphine eC W3 Sulfate 15 ne {tabl ed Sulfate ER (H udson MG Extended Sulfat et} 15 MG [place] Release e ER Health Oral Tablet 15 MG Care) Morphine Sulfate ER 15 MG 60 ACTUAT Advair active Advair eCW3 Fluticasone Diskus Diskus (Hud son propionate 500-50 500-50 [place] 0.5 mcg/do mcg/dose Health MG/ACTUAT / se Care) salmeterol 0.05 MG/ACTUAT Dry Powder Inhaler [Advair] Advair Diskus 500-50 mcg/dose clopidogrel Clopid active Clopidogr el eCW3 75 MG Oral ogrel Bisulfate 75 ([place] Tablet Bisulf MG [place] Clopidogrel ate 75 Health Bisulfate MG Care) 75 MG gabapentin Gabape 1.0 active Gabapentin eCW3 300 MG Oral ntin {caps 300 MG ([place] on Capsule 300 MG ule} [place] Gabapentin Health 300 MG Care) Morphine Morphi 1.0 suspend Morphine eC W3 Sulfate 15 ne {tabl ed Sulfate ER (H udson MG Extended Sulfat et} 15 MG [place] Release e ER Health Oral Tablet 15 MG Care) Morphine Sulfate ER 15 MG montelukast Eduardo 1.[address] eCW3 10 MG Oral ukast {tabl Sodium 10 mg ([place] Tablet Sodium et} [place] Montelukast 10 mg Health Sodium 10 Care) mg 3 ML Victoz active Victoza 18 eCW3 liraglutide a 18 MG/3ML ([place] n 6 MG/ML Pen MG/3ML [place] Injector Health [Victoza] Care) Victoza 18 MG/3ML rivaroxaban Xarelt active Xarelto 2 0 eCW3 20 MG Oral o 20 MG ([place] Tablet MG [place] [Xarelto] Health Xarelto 20 [facility]) MG Fluticasone Flutic suspend Fluticas one eCW3 Propionate asone ed Propionate (H udson 50 MCG/ACT Propio 50 MCG/ACT R iver cheri Health 50 Care) MCG/AC T 200 ACTUAT Ventol 2.0 suspend Ventolin HFA eCW3 Albuterol in HFA {puff ed 108 (90 (Hud son 0.09 108 s} Base) [place] MG/ACTUAT (90 MCG/ACT Health Metered Base) Care) Dose MCG/AC Inhaler T [Ventolin] Ventolin HFA 108 (90 Base) MCG/ACT Vitamin B Vitami 1.0 active Vitamin B e CW3 Complex - n B {tabl Complex - ([place] son Comple et} [place] x - Health Care) Fluticasone Flutic suspend Fluticas one eCW3 Propionate asone ed Propionate (H udson 50 MCG/ACT Propio 50 MCG/ACT R iver cheri Health 50 Care) MCG/AC T rivaroxaban Xarelt active Xarelto 2 0 eCW3 20 MG Oral o 20 MG ([place] Tablet MG [place] [Xarelto] Health Xarelto 20 Care) MG Losartan Losart active Losartan eCW 3 Potassium an Potassium 50 (H udson 50 MG Oral Potass MG [place] Tablet ium 50 Health MG Care) Magnesium Magnes active Magnesium e CW3 Oxide 400 ium Oxide 400 ([place]uds on MG Oral Oxide (241.3 Mg) [place] Tablet 400 MG Health Magnesium (241.3 Care) Oxide 400 Mg) MG (241.3 Mg) MG rivaroxaban Xarelt active Xarelto 2 0 eCW3 20 MG Oral o 20 MG ([place] Tablet MG [place] [Xarelto] Health Xarelto 20 Care) MG Spironolact Spiron active 1 tablet eCW2 one 25 MG olacto ([place] Oral Tablet ne 25 [place] MG Health Care) carvedilol Carved active Carvedilol eCW3 3.125 MG ilol 3.125 MG ([place] Oral Tablet 3.125 [place] Carvedilol MG Health 3.125 MG Care) pantoprazol Pantop 1.0 active Pantopraz ole eCW3 e 20 MG razole {tabl Sodium 20 MG ( [place] Delayed Sodium et} [place] Release 20 MG Health Oral Tablet Care) Pantoprazol e Sodium 20 MG montelukast Singul 1.0 suspend Singulai r 10 eCW3 10 MG Oral air 10 {tabl ed mg ([place] Tablet mg et_in [place] [Singulair] _the_ Health Singulair eveni Care) 10 mg ng} 60 ACTUAT Advair active 1 eCW2 Fluticasone Diskus ([place] n propionate 500-50 [place] 0.5 mcg/do Health MG/ACTUAT / se Care) salmeterol 0.05 MG/ACTUAT Dry Powder Inhaler [Advair] Advair Diskus 500-50 mcg/dose 60 ACTUAT Advair active Advair eCW3 Fluticasone Diskus Diskus (Hud son propionate 500-50 500-50 [place] 0.5 mcg/do mcg/dose Health MG/ACTUAT / se Care) salmeterol 0.05 MG/ACTUAT Dry Powder Inhaler [Advair] Advair Diskus 500-50 mcg/dose gabapentin Gabape 1.0 active Gabapentin eCW3 300 MG Oral ntin {caps 300 MG ([place] Capsule 300 MG ule} [place] Gabapentin Health 300 MG Care) pantoprazol Pantop 1.0 active Pantopraz ole eCW3 e 20 MG razole {tabl Sodium 20 MG ( [place] Delayed Sodium et} [place] Release 20 MG Health Oral Tablet Care) Pantoprazol e Sodium 20 MG Amlodipine Amlodi 1.0 active Amlodipine eCW3 10 MG / pine {caps Besy-Benazep (Hu dson Benazepril Besy-B ule} ril HCl Rive r hydrochlori enazep 10-40 MG He alth de 40 MG ril Care) Oral HCl Capsule 10-40 Amlodipine MG Besy-Benaze pril HCl 10-40 MG gabapentin Gabape 1.0 active Gabapentin eCW3 300 MG Oral ntin {caps 300 MG ([place] on Capsule 300 MG ule} [place] Gabapentin Health 300 MG Care) Magnesium Magnes active Magnesium e CW3 Oxide 400 ium Oxide 400 (Huds on MG Oral Oxide (241.3 Mg) [place] Tablet 400 MG Health Magnesium (241.3 Care) Oxide 400 Mg) MG (241.3 Mg) MG Magnesium Magnes active Magnesium e CW3 Oxide 400 ium Oxide 400 ([place]uds on MG Oral Oxide (241.3 Mg) [place] Tablet 400 MG Health Magnesium (241.3 Care) Oxide 400 Mg) MG (241.3 Mg) MG montelukast Eduardo 1.[address] eCW3 10 MG Oral ukast {tabl Sodium 10 mg ([place] Tablet Sodium et} [place] Montelukast 10 mg Health Sodium 10 Care) mg gabapentin Gabape 1.0 active Gabapentin eCW3 300 MG Oral ntin {caps 300 MG ([place] on Capsule 300 MG ule} [place] Gabapentin Health 300 MG Care) Magnesium Magnes active Magnesium e CW3 Oxide 400 ium Oxide 400 ([place]uds on MG Oral Oxide (241.3 Mg) [place] Tablet 400 MG Health Magnesium (241.3 Care) Oxide 400 Mg) MG (241.3 Mg) MG Fluticasone Flutic suspend Fluticas one eCW3 Propionate asone ed Propionate (H udson 50 MCG/ACT Propio 50 MCG/ACT R [facility] 50 Care) MCG/AC T Fluticasone Flutic suspend Fluticas one eCW3 Propionate asone ed Propionate (H udson 50 MCG/ACT Propio 50 [facility]) MCG/AC T Loratadine Clarit 1.0 active Claritin 1 0 eCW3 10 MG Oral in 10 {tabl mg ([place] Tablet mg et} [place] [Claritin] [facility] Claritin 10 Care) mg Spironolact Spiron 1.0 active Spironola box inspector eCW3 one 25 MG olacto {tabl ne 25 MG (Hu dson Oral Tablet ne 25 et} [facility] Health Care) gabapentin Gabape 1.0 active Gabapentin eCW3 300 MG Oral ntin {caps 300 MG ([place] on Capsule 300 MG ule} [place] Gabapentin Health 300 MG Care) Loratadine Clarit 1.0 active Claritin 1 0 eCW3 10 MG Oral in 10 {tabl mg ([place] Tablet mg et} [place] [Claritin] [facility] Claritin 10 Care) mg 200 ACTUAT Ventol 2.0 suspend Ventolin HFA eCW3 Albuterol in HFA {puff ed 108 (90 (Hud son 0.09 108 s} Base) [place] MG/ACTUAT (90 MCG/ACT Health Metered Base) Care) Dose MCG/AC Inhaler T [Ventolin] Ventolin HFA 108 (90 Base) MCG/ACT Fluticasone Flutic suspend Fluticas one eCW3 Propionate asone ed Propionate (H udson 50 MCG/ACT Propio 50 MCG/ACT R [facility] cheri Health 50 Care) MCG/AC T pantoprazol Pantop 1.0 active Pantopraz ole eCW3 e 20 MG razole {tabl Sodium 20 MG ( [place] Delayed Sodium et} [place] Release 20 MG Health Oral Tablet Care) Pantoprazol e Sodium 20 MG Magnesium Magnes active Magnesium e CW3 Oxide 400 ium Oxide 400 ([place]uds on MG Oral Oxide (241.3 Mg) [place] Tablet 400 MG Health Magnesium (241.3 Care) Oxide 400 Mg) MG (241.3 Mg) MG Vitamin B Vitami 1.0 active Vitamin B e CW3 Complex - n B {tabl Complex - ([place] son Comple et} [place] x - Health Care) Magnesium Magnes active Magnesium e CW3 Oxide 400 ium Oxide 400 ([place]uds on MG Oral Oxide (241.3 Mg) [place] Tablet 400 MG Health Magnesium (241.3 Care) Oxide 400 Mg) MG (241.3 Mg) MG 3 ML Victoz active Victoza 18 eCW3 liraglutide a 18 MG/3ML ([place] n 6 MG/ML Pen MG/3ML [place] Injector Health [Victoza] Care) Victoza 18 MG/3ML Morphine Morphi 1.0 suspend Morphine eC W3 Sulfate 15 ne {tabl ed Sulfate ER (H udson MG Extended Sulfat et} 15 MG [place] Release e ER Health Oral Tablet 15 MG Care) Morphine Sulfate ER 15 MG montelukast Eduardo 1.[address] eCW3 10 MG Oral ukast {tabl Sodium 10 mg ([place] Tablet Sodium et} [place] Montelukast 10 mg Health Sodium 10 Care) mg clopidogrel Clopid active Clopidogr el eCW3 75 MG Oral ogrel Bisulfate 75 ([place] Tablet Bisulf MG [place] Clopidogrel ate 75 Health Bisulfate MG Care) 75 MG pantoprazol Pantop 1.0 active Pantopraz ole eCW3 e 20 MG razole {tabl Sodium 20 MG ( [place] Delayed Sodium et} [place] Release 20 MG Health Oral Tablet Care) Pantoprazol e Sodium 20 MG clopidogrel Clopid active Clopidogr el eCW3 75 MG Oral ogrel Bisulfate 75 ([place] Tablet Bisulf MG [place] Clopidogrel ate 75 Health Bisulfate MG Care) 75 MG Losartan Losart active Losartan eCW 3 Potassium an Potassium 50 (H udson 50 MG Oral Potass MG [place] Tablet ium 50 Health MG Care) rivaroxaban Xarelt active Xarelto 2 0 eCW3 20 MG Oral o 20 MG ([place] Tablet MG [place] [Xarelto] Health Xarelto 20 Care) MG Loratadine Clarit 1.0 active Claritin 1 0 eCW3 10 MG Oral in 10 {tabl mg ([place] Tablet mg et} [place] [Claritin] Health Claritin 10 Care) mg Fluticasone Flutic suspend Fluticas one eCW3 Propionate asone ed Propionate (H udson 50 MCG/ACT Propio 50 MCG/ACT R iver cheri Health 50 Care) MCG/AC T Spironolact Spiron 1.0 active Spironola box inspector eCW3 one 25 MG olacto {tabl ne 25 MG (Hu dson Oral Tablet ne 25 et} [place] MG Health Care) pantoprazol Pantop 1.0 active Pantopraz ole eCW3 e 20 MG razole {tabl Sodium 20 MG ( [place] Delayed Sodium et} [place] Release 20 MG Health Oral Tablet Care) Pantoprazol e Sodium 20 MG 200 ACTUAT Ventol 2.0 suspend Ventolin HFA eCW3 Albuterol in HFA {puff ed 108 (90 (Hud son 0.09 108 s} Base) [place] MG/ACTUAT (90 MCG/ACT Health Metered Base) Care) Dose MCG/AC Inhaler T [Ventolin] Ventolin HFA 108 (90 Base) MCG/ACT gabapentin Gabape 1.0 active Gabapentin eCW3 300 MG Oral ntin {caps 300 MG ([place] Capsule 300 MG ule} [place] Gabapentin Health 300 MG Care) 200 ACTUAT Ventol 2.0 suspend Ventolin HFA eCW3 Albuterol in HFA {puff ed 108 (90 (Hud son 0.09 108 s} Base) [place] MG/ACTUAT (90 MCG/ACT Health Metered Base) Care) Dose MCG/AC Inhaler T [Ventolin] Ventolin HFA 108 (90 Base) MCG/ACT Losartan Losart active Losartan eCW 3 Potassium an Potassium 50 (H udson 50 MG Oral Potass MG [place] Tablet ium 50 Health Care) montelukast Singul 1.0 suspend Singulai r 10 eCW3 10 MG Oral air 10 {tabl ed mg ([place] Tablet mg et_in [place] [Singulair] _the_ Health Singulair eveni Care) 10 mg ng} 60 ACTUAT Advair active Advair eCW3 Fluticasone Diskus Diskus (Hud son propionate 500-50 500-50 [place] 0.5 mcg/do mcg/dose Health MG/ACTUAT / se Care) salmeterol 0.05 MG/ACTUAT Dry Powder Inhaler [Advair] Advair Diskus 500-50 mcg/dose Spironolact Spiron 1.0 active Spironola box inspector eCW3 one 25 MG olacto {tabl ne 25 MG (Hu dson Oral Tablet ne 25 et} [facility]) carvedilol Carved active Carvedilol eCW3 3.125 MG ilol 3.125 MG ([place] Oral Tablet 3.125 [place] Carvedilol MG [facility] 3.125 MG [facility]) carvedilol Carved active Carvedilol eCW3 3.125 MG ilol 3.125 MG ([place] Oral Tablet 3.125 [place] Carvedilol MG [facility] 3.125 MG [facility]) clopidogrel Clopid active Clopidogr el eCW3 75 MG Oral ogrel Bisulfate 75 ([place] Tablet Bisulf MG [place] Clopidogrel ate 75 Health Bisulfate MG [facility]) 75 MG 200 ACTUAT Ventol 2.0 suspend Ventolin HFA eCW3 Albuterol in HFA {puff ed 108 (90 (Hud son 0.09 108 s} Base) [place] MG/ACTUAT (90 MCG/ACT Health Metered Base) Care) Dose MCG/AC Inhaler T [Ventolin] Ventolin HFA 108 (90 Base) MCG/ACT 60 ACTUAT Advair active Advair eCW3 Fluticasone Diskus Diskus (Hud son propionate 500-50 500-50 [place] 0.5 mcg/do mcg/dose Health MG/ACTUAT / se Care) salmeterol 0.05 MG/ACTUAT Dry Powder Inhaler [Advair] Advair Diskus 500-50 mcg/dose Spironolact Spiron 1.0 active Spironola box inspector eCW3 one 25 MG olacto {tabl ne 25 MG (Hu dson Oral Tablet ne 25 et} [facility]) montelukast Eduardo 1.[address] eCW3 10 MG Oral ukast {tabl Sodium 10 mg ([place] Tablet Sodium et} [place] Montelukast 10 mg Health Sodium 10 Care) mg Fluticasone Flutic suspend Fluticas one eCW3 Propionate asone ed Propionate (H udson 50 MCG/ACT Propio 50 MCG/ACT R [address]) MCG/AC T Fluticasone Flutic suspend Fluticas one eCW3 Propionate asone ed Propionate (H udson 50 MCG/ACT Propio 50 MCG/ACT R [address]) MCG/AC T Morphine Morphi 1.0 suspend Morphine eC W3 Sulfate 15 ne {tabl ed Sulfate ER (H udson MG Extended Sulfat et} 15 MG [place] Release e ER Health Oral Tablet 15 MG Care) Morphine Sulfate ER 15 MG Omeprazole Omepra active 1 cap eCW2 20 MG zole ([place] Delayed 20 MG [place] Release Health Oral Care) Capsule clopidogrel Clopid active Clopidogr el eCW3 75 MG Oral ogrel Bisulfate 75 ([place] Tablet Bisulf MG [place] Clopidogrel ate 75 Health Bisulfate MG Care) 75 MG Morphine Morphi 1.0 suspend Morphine eC W3 Sulfate 15 ne {tabl ed Sulfate ER (H udson MG Extended Sulfat et} 15 MG [place] Release e ER Health Oral Tablet 15 MG Care) Morphine Sulfate ER 15 MG Spironolact Spiron 1.0 active Spironola box inspector eCW3 one 25 MG olacto {tabl ne 25 MG (Hu dson Oral Tablet ne 25 et} [place] MG Health Care) rivaroxaban Xarelt active Xarelto 2 0 eCW3 20 MG Oral o 20 MG ([place] Tablet MG [place] [Xarelto] Health Xarelto 20 Care) MG Fluticasone Flutic suspend Fluticas one eCW3 Propionate asone ed Propionate (H udson 50 MCG/ACT Propio 50 MCG/ACT [facility] Care) MCG/AC T carvedilol Carved active Carvedilol eCW3 3.125 MG ilol 3.125 MG ([place] Oral Tablet 3.125 [place] Carvedilol MG Health 3.125 MG Care) rivaroxaban Xarelt active Xarelto 2 0 eCW3 20 MG Oral o 20 MG ([place] Tablet MG [place] [Xarelto] Health Xarelto 20 Care) MG pantoprazol Pantop 1.0 active Pantopraz ole eCW3 e 20 MG razole {tabl Sodium 20 MG ( [place] Delayed Sodium et} [place] Release 20 MG Health Oral Tablet Care) Pantoprazol e Sodium 20 MG Vitamin B Vitami 1.0 active Vitamin B e CW3 Complex - n B {tabl Complex - ([place] son Comple et} [place] x - Health Care) Magnesium Magnes active Magnesium e CW3 Oxide 400 ium Oxide 400 ([place]uds on MG Oral Oxide (241.3 Mg) [place] Tablet 400 MG Health Magnesium (241.3 Care) Oxide 400 Mg) MG (241.3 Mg) MG gabapentin Gabape 1.0 active Gabapentin eCW3 300 MG Oral ntin {caps 300 MG ([place] on Capsule 300 MG ule} [place] Gabapentin Health 300 MG Care) Morphine Morphi 1.0 suspend Morphine eC W3 Sulfate 15 ne {tabl ed Sulfate ER (H udson MG Extended Sulfat et} 15 MG [place] Release e ER Health Oral Tablet 15 MG Care) Morphine Sulfate ER 15 MG Loratadine Clarit 1.0 active Claritin 1 0 eCW3 10 MG Oral in 10 {tabl mg ([place] Tablet mg et} [place] [facility] Health Claritin 10 Care) mg Morphine Morphi 1.0 suspend Morphine eC W3 Sulfate 15 ne {tabl ed Sulfate ER (H udson MG Extended Sulfat et} 15 MG [place] Release e ER Health Oral Tablet 15 MG Care) Morphine Sulfate ER 15 MG 60 ACTUAT Advair active Advair eCW3 Fluticasone Diskus Diskus (Hud son propionate 500-50 500-50 [place] 0.5 mcg/do mcg/dose Health MG/ACTUAT / se Care) salmeterol 0.05 MG/ACTUAT Dry Powder Inhaler [Advair] Advair Diskus 500-50 mcg/dose Loratadine Clarit 1.0 active Claritin 1 0 eCW3 10 MG Oral in 10 {tabl mg ([place] Tablet mg et} [place] [[facility]] [facility] Claritin 10 Care) mg Magnesium Magnes active Magnesium e CW3 Oxide 400 ium Oxide 400 (Huds on MG Oral Oxide (241.3 Mg) [place] Tablet 400 MG Health Magnesium (241.3 Care) Oxide 400 Mg) MG (241.3 Mg) MG Morphine Morphi 1.0 suspend Morphine eC W3 Sulfate 15 ne {tabl ed Sulfate ER (H udson MG Extended Sulfat et} 15 MG [place] Release e ER Health Oral Tablet 15 MG Care) Morphine Sulfate ER 15 MG montelukast Eduardo 1.[address] eCW3 10 MG Oral ukast {tabl Sodium 10 mg ([place] Tablet Sodium et} [place] Montelukast 10 mg Health Sodium 10 Care) mg gabapentin Gabape 1.0 active Gabapentin eCW3 300 MG Oral ntin {caps 300 MG ([place] on Capsule 300 MG ule} [place] Gabapentin Health 300 MG Care) Fluticasone Flutic suspend Fluticas one eCW3 Propionate asone ed Propionate (H udson 50 MCG/ACT Propio 50 MCG/ACT R [address]) MCG/AC T Spironolact Spiron 1.0 active Spironola box inspector eCW3 one 25 MG olacto {tabl ne 25 MG (Hu dson Oral Tablet ne 25 et} [facility]) carvedilol Carved active Carvedilol eCW3 3.125 MG ilol 3.125 MG ([place] Oral Tablet 3.125 [place] Carvedilol [facility] 3.125 MG [facility]) gabapentin Gabape 1.0 active Gabapentin eCW3 300 MG Oral ntin {caps 300 MG ([place] Capsule 300 MG ule} [place] Gabapentin [facility] 300 MG [facility]) Spironolact Spiron 1.0 active Spironola box inspector eCW3 one 25 MG olacto {tabl ne 25 MG (Hu dson Oral Tablet ne 25 et} [facility]) rivaroxaban Xarelt active Xarelto 2 0 eCW3 20 MG Oral o 20 MG ([place] Tablet MG [place] [Xarelto] [facility] Xarelto 20 [facility]) MG Fluticasone Flutic suspend Fluticas one eCW3 Propionate asone ed Propionate (H udson 50 MCG/ACT Propio 50 MCG/ACT R [address]) MCG/AC T Spironolact Spiron 1.0 active Spironola box inspector eCW3 one 25 MG olacto {tabl ne 25 MG (Hu dson Oral Tablet ne 25 et} [facility]) 3 ML Victoz active Victoza 18 eCW3 liraglutide a 18 MG/3ML ([place] n 6 MG/ML Pen MG/3ML [facility] [Victo] Care) Victoza 18 MG/3ML 3 ML Victoz active Victoza 18 eCW3 liraglutide a 18 MG/3ML ([place] n 6 MG/ML Pen MG/3ML [facility] [Victo] [facility]) Victoza 18 MG/3ML Losartan Losart active Losartan eCW 3 Potassium an Potassium 50 (H udson 50 MG Oral Potass MG [place] Tablet ium 50 [facility]) Losartan Losart active Losartan eCW 3 Potassium an Potassium 50 (H udson 50 MG Oral Potass MG [place] Tablet ium 50 Health MG Care) Loratadine Clarit active 1 tablet e CW2 10 MG Oral in 10 ([place] Tablet mg [place] [Claritin] Health Claritin 10 Care) mg pantoprazol Pantop 1.0 active Pantopraz ole eCW3 e 20 MG razole {tabl Sodium 20 MG ( [place] Delayed Sodium et} [place] Release 20 MG Health Oral Tablet Care) Pantoprazol e Sodium 20 MG 200 ACTUAT Ventol 2.0 suspend Ventolin HFA eCW3 Albuterol in HFA {puff ed 108 (90 (Hud son 0.09 108 s} Base) [place] MG/ACTUAT (90 MCG/ACT Health Metered Base) Care) Dose MCG/AC Inhaler T [Ventolin] Ventolin HFA 108 (90 Base) MCG/ACT 60 ACTUAT Advair active Advair eCW3 Fluticasone Diskus Diskus (Hud son propionate 500-50 500-50 [place] 0.5 mcg/do mcg/dose Health MG/ACTUAT / se Care) salmeterol 0.05 MG/ACTUAT Dry Powder Inhaler [Advair] Advair Diskus 500-50 mcg/dose 60 ACTUAT Advair active Advair eCW3 Fluticasone Diskus Diskus (Hud son propionate 500-50 500-50 [place] 0.5 mcg/do mcg/dose Health MG/ACTUAT / se Care) salmeterol 0.05 MG/ACTUAT Dry Powder Inhaler [Advair] Advair Diskus 500-50 mcg/dose Spironolact Spiron 1.0 active Spironola box inspector eCW3 one 25 MG olacto {tabl ne 25 MG (Hu dson Oral Tablet ne 25 et} [place] MG [facility] Care) Loratadine Clarit 1.0 active Claritin 1 0 eCW3 10 MG Oral in 10 {tabl mg ([place] Tablet mg et} [place] [Claritin] Health Claritin 10 Care) mg clopidogrel Clopid active Clopidogr el eCW3 75 MG Oral ogrel Bisulfate 75 ([place] Tablet Bisulf MG [place] Clopidogrel ate 75 Health Bisulfate MG Care) 75 MG Vitamin B Vitami 1.0 active Vitamin B e CW3 Complex - n B {tabl Complex - (Hud son Comple et} [place] x - Health Care) Spironolact Spiron 1.0 active Spironola box inspector eCW3 one 25 MG olacto {tabl ne 25 MG (Hu dson Oral Tablet ne 25 et} [place] [facility]) 200 ACTUAT Ventol 2.0 suspend Ventolin HFA eCW3 Albuterol in HFA {puff ed 108 (90 (Hud son 0.09 108 s} Base) [place] MG/ACTUAT (90 MCG/ACT Health Metered Base) Care) Dose MCG/AC Inhaler T [Ventolin] Ventolin HFA 108 (90 Base) MCG/ACT pantoprazol Pantop 1.0 active Pantopraz ole eCW3 e 20 MG razole {tabl Sodium 20 MG ( [place] Delayed Sodium et} [place] Release 20 MG Health Oral Tablet Care) Pantoprazol e Sodium 20 MG Loratadine Clarit 1.0 active Claritin 1 0 eCW3 10 MG Oral in 10 {tabl mg ([place] Tablet mg et} [place] [Claritin] [facility] Claritin 10 [facility]) mg rivaroxaban Xarelt active Xarelto 2 0 eCW3 20 MG Oral o 20 MG ([place] Tablet MG [place] [Xarelto] [facility] Xarelto 20 [facility]) MG Morphine Morphi 1.0 suspend Morphine eC W3 Sulfate 15 ne {tabl ed Sulfate ER (H udson MG Extended Sulfat et} 15 MG [place] Release e ER Health Oral Tablet 15 MG Care) Morphine Sulfate ER 15 MG Spironolact Spiron 1.0 active Spironola box inspector eCW3 one 25 MG olacto {tabl ne 25 MG (Hu dson Oral Tablet ne 25 et} [place] [facility]) Spironolact Spiron 1.0 active Spironola box inspector eCW3 one 25 MG olacto {tabl ne 25 MG (Hu dson Oral Tablet ne 25 et} [place] [facility] Care) Fluticasone Flutic suspend Fluticas one eCW3 Propionate asone ed Propionate (H udson 50 MCG/ACT Propio 50 MCG/ACT R [address]) MCG/AC T Fluticasone Flutic suspend Fluticas one eCW3 Propionate asone ed Propionate (H udson 50 MCG/ACT Propio 50 MCG/ACT R [address]) MCG/AC T clopidogrel Clopid active Clopidogr el eCW3 75 MG Oral ogrel Bisulfate 75 ([place] Tablet Bisulf MG [place] Clopidogrel ate 75 Health Bisulfate MG Care) 75 MG rivaroxaban Xarelt active Xarelto 2 0 eCW3 20 MG Oral o 20 MG ([place] Tablet MG [place] [Xarelto] Health Xarelto 20 Care) MG Losartan Losart active Losartan eCW 3 Potassium an Potassium 50 (H udson 50 MG Oral Potass MG [place] Tablet ium 50 Health MG Care) Morphine Morphi 1.0 suspend Morphine eC W3 Sulfate 15 ne {tabl ed Sulfate ER (H udson MG Extended Sulfat et} 15 MG [place] Release e ER Health Oral Tablet 15 MG Care) Morphine Sulfate ER 15 MG Fluticasone Flutic suspend Fluticas one eCW3 Propionate asone ed Propionate (H udson 50 MCG/ACT Propio 50 MCG/ACT R iver cheri Health 50 Care) MCG/AC T 200 ACTUAT Ventol 2.0 suspend Ventolin HFA eCW3 Albuterol in HFA {puff ed 108 (90 ([facility] son 0.09 108 s} Base) [place] MG/ACTUAT (90 MCG/ACT Health Metered Base) Care) Dose MCG/AC Inhaler T [Ventolin] Ventolin HFA 108 (90 Base) MCG/ACT 200 ACTUAT Ventol 2.0 suspend Ventolin HFA eCW3 Albuterol in HFA {puff ed 108 (90 (Hud son 0.09 108 s} Base) [place] MG/ACTUAT (90 MCG/ACT Health Metered Base) Care) Dose MCG/AC Inhaler T [Ventolin] Ventolin HFA 108 (90 Base) MCG/ACT Vitamin B Vitami 1.0 active Vitamin B e CW3 Complex - n B {tabl Complex - ([facility] Comple et} [place] x - Health Care) Magnesium Magnes active Magnesium e CW3 Oxide 400 ium Oxide 400 ([place] on MG Oral Oxide (241.3 Mg) [place] Tablet 400 MG Health Magnesium (241.3 Care) Oxide 400 Mg) MG (241.3 Mg) MG 60 ACTUAT Advair active Advair eCW3 Fluticasone Diskus Diskus ([facility] son propionate 500-50 500-50 [place] 0.5 mcg/do mcg/dose Health MG/ACTUAT / se Care) salmeterol 0.05 MG/ACTUAT Dry Powder Inhaler [Advair] Advair Diskus 500-50 mcg/dose carvedilol Carved active Carvedilol eCW3 3.125 MG ilol 3.125 MG ([place] Oral Tablet 3.125 [place] Carvedilol MG Health 3.125 MG Care) Vitamin B Vitami 1.0 active Vitamin B e CW3 Complex - n B {tabl Complex - ([facility] Comple et} [place] x - Health Care) 60 ACTUAT Advair active Advair eCW3 Fluticasone Diskus Diskus ([place] [facility] propionate 500-50 500-50 [place] 0.5 mcg/do mcg/dose Health MG/ACTUAT / se Care) salmeterol 0.05 MG/ACTUAT Dry Powder Inhaler [Advair] Advair Diskus 500-50 mcg/dose Loratadine Clarit 1.0 active Claritin 1 0 eCW3 10 MG Oral in 10 {tabl mg ([place] Tablet mg et} [place] [Claritin] Health Claritin 10 Care) mg carvedilol Carved active Carvedilol eCW3 3.125 MG ilol 3.125 MG ([place] Oral Tablet 3.125 [place] Carvedilol MG Health 3.125 MG Care) Losartan Losart active Losartan eCW 3 Potassium an Potassium 50 (H udson 50 MG Oral Potass MG [place] Tablet ium 50 Health MG Care) 60 ACTUAT Advair active Advair eCW3 Fluticasone Diskus Diskus ([place] propionate 500-50 500-50 [place] 0.5 mcg/do mcg/dose Health MG/ACTUAT / se Care) salmeterol 0.05 MG/ACTUAT Dry Powder Inhaler [Advair] Advair Diskus 500-50 mcg/dose gabapentin Gabape 1.0 active Gabapentin eCW3 300 MG Oral ntin {caps 300 MG ([place] Capsule 300 MG ule} [place] Gabapentin Health 300 MG Care) Morphine Morphi 1.0 suspend Morphine eC W3 Sulfate 15 ne {tabl ed Sulfate ER ([facility] [place] MG Extended Sulfat et} 15 MG [place] Release e ER Health Oral Tablet 15 MG Care) Morphine Sulfate ER 15 MG Magnesium Magnes active Magnesium e CW3 Oxide 400 ium Oxide 400 ([place] MG Oral Oxide (241.3 Mg) [place] Tablet 400 MG Health Magnesium (241.3 Care) Oxide 400 Mg) MG (241.3 Mg) MG Losartan Losart active Losartan eCW 3 Potassium an Potassium 50 ([facility] udson 50 MG Oral Potass MG [place] Tablet ium 50 [facility]) Vitamin B Vitami 1.0 active Vitamin B e CW3 Complex - n B {tabl Complex - ([place] son Comple et} [place] x - Health [facility]) 200 ACTUAT Ventol 2.0 suspend Ventolin HFA eCW3 Albuterol in HFA {puff ed 108 (90 ([facility] son 0.09 108 s} Base) [place] MG/ACTUAT (90 MCG/ACT Health Metered Base) Care) Dose MCG/AC Inhaler T [Ventolin] Ventolin HFA 108 (90 Base) MCG/ACT montelukast Eduardo 1.[address] eCW3 10 MG Oral ukast {tabl Sodium 10 mg ([place] Tablet Sodium et} [place] Montelukast 10 mg Health Sodium 10 Care) mg Spironolact Spiron 1.0 active Spironola box inspector eCW3 one 25 MG olacto {tabl ne 25 MG (Hu dson Oral Tablet ne 25 et} [facility]) carvedilol Carved active Carvedilol eCW3 3.125 MG ilol 3.125 MG ([place] Oral Tablet 3.125 [place] Carvedilol MG Health 3.125 MG [facility]) 200 ACTUAT Ventol 2.0 suspend Ventolin HFA eCW3 Albuterol in HFA {puff ed 108 (90 ([facility] son 0.09 108 s} Base) [place] MG/ACTUAT (90 MCG/ACT Health Metered Base) Care) Dose MCG/AC Inhaler T [Ventolin] Ventolin HFA 108 (90 Base) MCG/ACT 200 ACTUAT Ventol 2.0 suspend Ventolin HFA eCW3 Albuterol in HFA {puff ed 108 (90 ([place] son 0.09 108 s} Base) [place] MG/ACTUAT (90 MCG/ACT Health Metered Base) Care) Dose MCG/AC Inhaler T [Ventolin] Ventolin HFA 108 (90 Base) MCG/ACT Loratadine Clarit 1.0 active Claritin 1 0 eCW3 10 MG Oral in 10 {tabl mg ([place] Tablet mg et} [place] [Claritin] Health Claritin 10 Care) mg montelukast Eduardo 1.[address] eCW3 10 MG Oral ukast {tabl Sodium 10 mg ([place] Tablet Sodium et} [place] Montelukast 10 mg Health Sodium 10 Care) mg 60 ACTUAT Advair active Advair eCW3 Fluticasone Diskus Diskus ([place] son propionate 500-50 500-50 [place] 0.5 mcg/do mcg/dose Health MG/ACTUAT / se Care) salmeterol 0.05 MG/ACTUAT Dry Powder Inhaler [Advair] Advair Diskus 500-50 mcg/dose Loratadine Clarit 1.0 active Claritin 1 0 eCW3 10 MG Oral in 10 {tabl mg ([place] Tablet mg et} [place] [Claritin] Health Claritin 10 Care) mg pantoprazol Pantop 1.0 active Pantopraz ole eCW3 e 20 MG razole {tabl Sodium 20 MG ( [place] Delayed Sodium et} [place] Release 20 MG Health Oral Tablet Care) Pantoprazol e Sodium 20 MG gabapentin Gabape 1.0 active Gabapentin eCW3 300 MG Oral ntin {caps 300 MG ([place] Capsule 300 MG ule} [place] Gabapentin Health 300 MG Care) Vitamin B Vitami 1.0 active Vitamin B e CW3 Complex - n B {tabl Complex - ([place] son Comple et} [place] x - Health Care) Morphine Morphi 1.0 suspend Morphine eC W3 Sulfate 15 ne {tabl ed Sulfate ER ([place] MG Extended Sulfat et} 15 MG [place] Release e ER Health Oral Tablet 15 MG Care) Morphine Sulfate ER 15 MG clopidogrel Clopid active Clopidogr el eCW3 75 MG Oral ogrel Bisulfate 75 ([place] Tablet Bisulf MG [place] Clopidogrel ate 75 Health Bisulfate MG Care) 75 MG Unknown complet eCW2 Medications ed ([place]) montelukast Eduardo 1.[address] eCW3 10 MG Oral ukast {tabl Sodium 10 mg ([place] Tablet Sodium et} [place] Montelukast 10 mg Health Sodium 10 Care) mg Losartan Losart active Losartan eCW 3 Potassium an Potassium 50 (H udson 50 MG Oral Potass MG [place] Tablet ium 50 Health MG Care) 3 ML Victoz active Victoza 18 eCW3 liraglutide a 18 MG/3ML ([place] n 6 MG/ML Pen MG/3ML [place] Injector Health [Victoza] Care) Victoza 18 MG/3ML Amlodipine Amlodi 1.0 active Amlodipine eCW3 10 MG / pine {caps Besy-Benazep (Hu dson Benazepril Besy-B ule} ril HCl Rive r hydrochlori enazep 10-40 MG He alth de 40 MG ril Care) Oral HCl Capsule 10-40 Amlodipine MG Besy-Benaze pril HCl 10-40 MG gabapentin Gabape 1.0 active Gabapentin eCW3 300 MG Oral ntin {caps 300 MG ([place] Capsule 300 MG ule} [place] Gabapentin Health 300 MG Care) rivaroxaban Xarelt active Xarelto 2 0 eCW3 20 MG Oral o 20 MG ([place] Tablet MG [place] [Xarelto] Health Xarelto 20 Care) MG montelukast Eduardo 1.[address] eCW3 10 MG Oral ukast {tabl Sodium 10 mg ([place] Tablet Sodium et} [place] Montelukast 10 mg Health Sodium 10 Care) mg Loratadine Clarit 1.0 active Claritin 1 0 eCW3 10 MG Oral in 10 {tabl mg ([place] Tablet mg et} [place] [Claritin] Health Claritin 10 Care) mg 200 ACTUAT Ventol 2.0 suspend Ventolin HFA eCW3 Albuterol in HFA {puff ed 108 (90 ([place] son 0.09 108 s} Base) [place] MG/ACTUAT (90 MCG/ACT Health Metered Base) Care) Dose MCG/AC Inhaler T [Ventolin] Ventolin HFA 108 (90 Base) MCG/ACT Insurance Providers Payer name Policy type Policy ID Covered Covered constitution party's Policy P elda / Coverage constitution party ID relationship to [place] Inf ormation type [place] MVP MEDICAID [id number] SP [id number] [facility] MEDICAID [id number] SP [id number] [facility] MEDICAID [id number] SP [id number] O MVP/HHP O [id number] 01 [id number] MVP/HHP O [id number] 01 [id number] MVP/HHP O [id number] 01 [id number] Problems, Conditions, and Diagnoses Code Display Name Description Problem Effective Data Type Dates Source(s) F41.0 Panic disorder Panic disorder Problem 12/20/2019 eCW3 12:00:00 AM ([facility]) I73.9 Peripheral vascular Peripheral vascular Problem 020 eCW3 disease disease 12:00:00 AM ([facility]) I50.23 Acute on chronic Acute on chronic Problem 09/24/2019 eC W3 systolic CHF systolic CHF 12:00:00 AM ([facility] (congestive heart (congestive heart [facility] [place] failure) failure) [facility]) I73.9 Peripheral vascular Peripheral vascular Problem 020 eCW3 disease disease 12:00:00 AM ([facility]) I50.22 Systolic CHF, chronic Systolic CHF, chronic Problem eCW3 12:00:00 AM ([facility]) I50.22 Systolic CHF, chronic Systolic CHF, chronic Problem eCW3 12:00:00 AM ([facility]) J45.40 Moderate persistent Moderate persistent Problem 020 eCW3 asthma without asthma without 12:00:00 AM ([facility] on complication complication [facility]) J45.40 Moderate persistent Moderate persistent Problem 020 eCW3 asthma without asthma without 12:00:00 AM ([facility] on complication complication [facility]) J45.40 Moderate persistent Moderate persistent Problem 020 eCW3 asthma without asthma without 12:00:00 AM ([facility] on complication complication [facility]) I50.23 Acute on chronic Acute on chronic Problem 06/13/2019 eC W3 systolic congestive systolic congestive 12:00:0 0 AM ([facility] heart failure heart failure [facility]) I50.23 Acute on chronic Acute on chronic Problem 06/13/2019 eC W3 systolic congestive systolic congestive 12:00:0 0 AM ([facility] heart failure heart failure [facility]) J45.901 Exacerbation of asthma Asthma with acute Problem 2019 eCW3 exacerbation 12:00:00 AM ([facility]) J45.901 Exacerbation of asthma Asthma with acute Problem 2019 eCW3 exacerbation 12:00:00 AM ([facility]) J45.41 Moderate persistent Moderate persistent Problem 019 eCW3 asthma with acute asthma with acute 12:00:00 AM ([facility] exacerbation exacerbation [facility]) J45.41 Moderate persistent Moderate persistent Problem 019 eCW3 asthma with acute asthma with acute 12:00:00 AM ([facility] exacerbation exacerbation [facility]) J45.41 Moderate persistent Moderate persistent Problem 019 eCW3 asthma with acute asthma with acute 12:00:00 AM ([facility] exacerbation exacerbation [facility]) J45.41 Moderate persistent Moderate persistent Problem 019 eCW3 asthma with acute asthma with acute 12:00:00 AM ([facility] exacerbation exacerbation [facility]) J45.40 Moderate persistent Moderate persistent Problem 019 eCW3 asthma, unspecified asthma, unspecified 12:00:0 0 AM ([place] whether complicated whether complicated [facility]) J45.40 Moderate persistent Moderate persistent Problem 019 eCW3 asthma, unspecified asthma, unspecified 12:00:0 0 AM ([place] whether complicated whether complicated [facility]) J45.40 Moderate persistent Moderate persistent Problem 019 eCW3 asthma, unspecified asthma, unspecified 12:00:0 0 AM ([facility] whether complicated whether complicated [facility]) J45.40 Moderate persistent Moderate persistent Problem 019 eCW3 asthma, unspecified asthma, unspecified 12:00:0 0 AM ([facility] whether complicated whether complicated [facility]) J45.40 Moderate persistent Moderate persistent Problem 019 eCW3 asthma, unspecified asthma, unspecified 12:00:0 0 AM ([place] whether complicated whether complicated [facility]) I42.8 Non-ischemic Non-ischemic Problem 10/06/2018 eCW3 cardiomyopathy cardiomyopathy 12:00:00 AM ([facility]) I21.4 NSTEMI (non-ST elevated NSTEMI (non-ST Problem 10/07/19 19 eCW3 myocardial infarction) elevated myocardial 12:0 0:00 AM ([facility] infarction) [facility]) I48.91 Atrial fibrillation, Atrial fibrillation, Problem 10/06 eCW3 unspecified type unspecified type 12:00:00 AM ( [facility]) I21.4 NSTEMI (non-ST elevated NSTEMI (non-ST Problem 10/07/19 19 eCW3 myocardial infarction) elevated myocardial 12:0 0:00 AM ([facility]) [facility]) I48.91 Atrial fibrillation, Atrial fibrillation, Problem 10/06 eCW3 unspecified type unspecified type 12:00:00 AM ( [facility]) I42.8 Non-ischemic Non-ischemic Problem 10/06/2018 eCW3 cardiomyopathy cardiomyopathy 12:00:00 AM ([facility]) I48.91 Atrial fibrillation, Atrial fibrillation, Problem 10/06 eCW3 unspecified type unspecified type 12:00:00 AM ( [facility]) I21.4 NSTEMI (non-ST elevated NSTEMI (non-ST Problem 10/07/19 19 eCW3 myocardial infarction) elevated myocardial 12:0 0:00 AM ([facility] infarction) [facility]) I42.8 Non-ischemic Non-ischemic Problem 10/06/2018 eCW3 cardiomyopathy cardiomyopathy 12:00:00 AM ([facility]) I48.91 Atrial fibrillation, Atrial fibrillation, Problem 10/06 eCW3 unspecified type unspecified type 12:00:00 AM ( [facility]) I21.4 NSTEMI (non-ST elevated NSTEMI (non-ST Problem 10/07/19 19 eCW3 myocardial infarction) elevated myocardial 12:0 0:00 AM ([facility] infarction) [facility]) I21.4 NSTEMI (non-ST elevated NSTEMI (non-ST Problem 10/07/19 19 eCW3 myocardial infarction) elevated myocardial 12:0 0:00 AM ([facility] infarction) [facility]) I48.91 Atrial fibrillation, Atrial fibrillation, Problem 10/06 eCW3 unspecified type unspecified type 12:00:00 AM ( [facility]) I42.8 Non-ischemic Non-ischemic Problem 10/06/2018 eCW3 cardiomyopathy cardiomyopathy 12:00:00 AM ([facility]) E83.52 Hypercalcemia Hypercalcemia Problem 12/30/2017 eCW3 12:00:00 AM ([facility]) E83.52 Hypercalcemia Hypercalcemia Problem 12/30/2017 eCW3 12:00:00 AM ([facility]) E83.52 Hypercalcemia Hypercalcemia Problem 12/30/2017 eCW3 12:00:00 AM ([facility]) E83.52 Hypercalcemia Hypercalcemia Problem 12/30/2017 eCW3 12:00:00 AM ([facility]) E83.52 Hypercalcemia Hypercalcemia Problem 12/30/2017 eCW3 12:00:00 AM ([facility]) E83.52 Hypercalcemia Hypercalcemia Problem 12/30/2017 eCW2 12:00:00 AM ([facility]) E83.52 Hypercalcemia Hypercalcemia Problem 12/30/2017 eCW3 12:00:00 AM ([facility]) 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) E11.65 Type 2 diabetes Type 2 diabetes Problem 07/16/2017 eCW3 mellitus with mellitus with 12:00:00 AM (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 eCW3 of insulin of insulin 12:00:00 AM ([facility]) I42.8 Nonischemic Nonischemic Problem 07/16/2017 eCW2 cardiomyopathy cardiomyopathy 12:00:00 AM ([facility]) 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 eCW2 of insulin of insulin 12:00:00 AM ([facility]) E11.65 Type 2 diabetes Type 2 diabetes Problem 07/16/2017 eCW2 mellitus with mellitus with 12:00:00 AM ([facility] hyperglycemia hyperglycemia [facility]) 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) I10 Essential hypertension Essential (primary) Problem 04/19 eCW3 hypertension 12:00:00 AM ([facility]) I10 Essential hypertension Essential (primary) Problem 04/19 eCW3 hypertension 12:00:00 AM ([facility]) I10 Essential hypertension Essential (primary) Problem 04/19 eCW3 hypertension 12:00:00 AM ([facility]) I10 Essential hypertension Essential (primary) Problem 04/19 eCW3 hypertension 12:00:00 AM ([facility]) I10 Essential hypertension Essential (primary) Problem 04/19 eCW2 hypertension 12:00:00 AM ([facility]) E08.40 Diabetic neuropathy Diabetes mellitus due Problem 05/12 eCW2 to underlying 12:00:00 AM ([place] condition with [facility] [place] diabetic neuropathy, Heal th unspecified Care) E08.40 Diabetic neuropathy Diabetes mellitus due Problem 05/12 eCW3 to underlying 12:00:00 AM ([place] condition with EST [place] diabetic neuropathy, Heal th unspecified Care) I10 Essential hypertension Essential (primary) Problem 04/19 eCW3 hypertension 12:00:00 AM ([facility]) J45.41 Moderate persistent Moderate persistent Problem 017 eCW3 asthma with asthma with 12:00:00 AM ([facility] exacerbation exacerbation [facility]) J45.41 Moderate persistent Moderate persistent Problem 017 eCW3 asthma with asthma with 12:00:00 AM ([facility] exacerbation exacerbation [facility]) J45.41 Moderate persistent Moderate persistent Problem 017 eCW3 asthma with asthma with 12:00:00 AM ([place] exacerbation exacerbation [facility]) J45.41 Moderate persistent Moderate persistent Problem 017 eCW3 asthma with asthma with 12:00:00 AM ([place] exacerbation exacerbation [facility]) J45.41 Moderate persistent Moderate persistent Problem 017 eCW3 asthma with asthma with 12:00:00 AM ([place] exacerbation exacerbation [facility]) J45.41 Moderate persistent Moderate persistent Problem 017 eCW2 asthma with asthma with 12:00:00 AM ([place] exacerbation exacerbation [facility]) J45.41 Moderate persistent Moderate persistent Problem 017 eCW3 asthma with asthma with 12:00:00 AM ([place] exacerbation exacerbation [facility]) F40.9 Phobia Phobia Problem 03/05/2016 eCW2 12:00:00 AM ([facility]) F40.9 Phobia Phobia Problem 03/05/2016 eCW3 12:00:00 AM ([facility]) R20.2 Paresthesia Paresthesia Problem 02/26/2016 eCW2 12:00:00 AM ([facility]) R20.2 Paresthesia Paresthesia Problem 02/26/2016 eCW3 12:00:00 AM ([facility]) Z72.0 Tobacco abuse Tobacco abuse Problem 02/11/2015 eCW3 12:00:00 AM ([facility]) E11.9 Type II diabetes Type 2 diabetes Problem 02/11/2015 eCW 3 mellitus without mellitus without 12:00:00 AM ( [facility]) E78.0 Pure Hypercholesteremia Problem 02/11/2015 eCW3 hypercholesterolemia 12:00:00 AM ([facility]) E78.0 Pure Hypercholesteremia Problem 02/11/2015 eCW3 hypercholesterolemia 12:00:00 AM ([facility]) Z72.0 Tobacco abuse Tobacco abuse Problem 02/11/2015 eCW3 12:00:00 AM ([facility]) E11.9 Type II diabetes Type 2 diabetes Problem 02/11/2015 eCW 3 mellitus without mellitus without 12:00:00 AM ( [facility]) E11.9 Type II diabetes Type 2 diabetes Problem 02/11/2015 eCW 3 mellitus without mellitus without 12:00:00 AM ( [facility]) E78.0 Pure Hypercholesteremia Problem 02/11/2015 eCW3 hypercholesterolemia 12:00:00 AM ([facility]) Z72.0 Tobacco abuse Tobacco abuse Problem 02/11/2015 eCW3 12:00:00 AM ([facility]) E78.0 Pure Hypercholesteremia Problem 02/11/2015 eCW3 hypercholesterolemia 12:00:00 AM ([facility]) E11.9 Type II diabetes Type 2 diabetes Problem 02/11/2015 eCW 3 mellitus without mellitus without 12:00:00 AM ( [facility]) E78.0 Pure Hypercholesteremia Problem 02/11/2015 eCW3 hypercholesterolemia 12:00:00 AM ([facility]) Z72.0 Tobacco abuse Tobacco abuse Problem 02/11/2015 eCW3 12:00:00 AM ([facility]) E11.9 Type II diabetes Type 2 diabetes Problem 02/11/2015 eCW 2 mellitus without mellitus without 12:00:00 AM ( [facility]) Z72.0 Tobacco abuse Tobacco abuse Problem 02/11/2015 eCW2 12:00:00 AM ([facility]) J45.909 Asthma Asthma Problem 02/11/2015 eCW2 12:00:00 AM ([facility]) E78.0 Pure Hypercholesteremia Problem 02/11/2015 eCW2 hypercholesterolemia 12:00:00 AM ([facility]) Z72.0 Tobacco abuse Tobacco abuse Problem 02/11/2015 eCW3 12:00:00 AM ([facility]) E11.9 Type II diabetes Type 2 diabetes Problem 02/11/2015 eCW 3 mellitus without mellitus without 12:00:00 AM ( [facility] complication complications [facility]) E78.0 Pure Hypercholesteremia Problem 02/11/2015 eCW3 hypercholesterolemia 12:00:00 AM ([facility]) J45.909 Asthma Asthma Problem 02/11/2015 eCW3 12:00:00 AM ([facility]) 425.4 Cardiomyopathy Cardiomyopathy Problem 09/11/2014 eCW2 12:00:00 AM ([facility]) 425.4 Cardiomyopathy Cardiomyopathy Problem 09/11/2014 eCW3 12:00:00 AM ([facility]) 729.5 Pain in limb Foot pain, bilateral Problem 08/07/2014 eC W2 12:00:00 AM ([facility]) 729.5 Pain in limb Foot pain, bilateral Problem 08/07/2014 eC W3 12:00:00 AM ([facility]) 891.0 Open wound of knee Wound of right leg Problem 5 eCW2 and/or leg and/or ankle 12:00:00 AM ([facility]) 891.0 Open wound of knee Wound of right leg Problem 5 eCW3 and/or leg and/or ankle 12:00:00 AM ([facility]) 793.80 Mammography abnormal Abnormal mammography Problem 06/26 eCW2 12:00:00 AM ([facility]) 793.80 Mammography abnormal Abnormal mammography Problem 06/26 eCW3 12:00:00 AM ([facility]) 785.6 Hilar lymphadenopathy Hilar lymphadenopathy Problem eCW2 12:00:00 AM ([facility]) 493.90 Moderate persistent Asthma, moderate Problem 01/30/2014 eCW2 asthma persistent 12:00:00 AM ([facility]) 493.90 Moderate persistent Asthma, moderate Problem 01/30/2014 eCW3 asthma persistent 12:00:00 AM ([facility]) 785.6 Hilar lymphadenopathy Hilar lymphadenopathy Problem eCW3 12:00:00 AM ([facility]) 790.6 Elevated liver enzymes Elevated LFTs Problem 12/07/2013 eCW2 level 12:00:00 AM ([facility]) 790.6 Elevated liver enzymes Elevated LFTs Problem 12/07/2013 eCW3 level 12:00:00 AM ([facility]) 272.0 Hypercholesterolemia Hypercholesterolemia Problem 10/18 eCW2 12:00:00 AM ([facility]) 272.0 Hypercholesterolemia Hypercholesterolemia Problem 10/18 eCW3 12:00:00 AM [facility] Center) 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 ([facility]) 278.00 Obesity OBESITY NOS Problem eCW2 ([facility]) 357.2 Diabetic neuropathy NEUROPATHY IN DIABETES Problem eCW2 ([facility]) 268.9 Vitamin D deficiency Vitamin D deficiency Problem eCW2 NOS ([facility]) 311 Depressive disorder Depression Disorder Problem eCW2 NOS ([facility]) 296.60 Mixed bipolar I Bipolar affective Problem eC W2 disorder disorder, mixed ([facility]) 715.90 Generalized Osteoarthritis Problem eCW2 osteoarthritis generalized ([facility]) 477.9 Allergic rhinitis ALLERGIC RHINITIS NOS Problem eCW2 ([facility]) 250.00 Diabetes mellitus type Diabetes mellitus type Problem eCW2 2 2 ([facility]) 401.9 Hypertension Hypertension Problem eCW2 ([facility]) 305.1 Tobacco abuse Tobacco Abuse Problem eCW2 ([facility]) 530.11 Gastroesophageal reflux GERD Problem e CW2 disease ([facility]) 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 ([facility]) 250.00 Diabetes mellitus type Diabetes mellitus type Problem eCW3 2 2 ([facility]) 401.9 Hypertension Hypertension Problem eCW3 ([facility]) 305.1 Tobacco abuse Tobacco Abuse Problem eCW3 ([facility]) 530.11 Gastroesophageal reflux GERD Problem e CW3 disease ([facility]) 357.2 Diabetic neuropathy NEUROPATHY IN DIABETES Problem eCW3 ([facility]) 278.00 Obesity OBESITY NOS Problem eCW3 ([facility]) 311 Depressive disorder Depression Disorder Problem eCW3 NOS ([facility]) 268.9 Vitamin D deficiency Vitamin D deficiency Problem eCW3 NOS ([facility]) 715.90 Generalized Osteoarthritis Problem eCW3 osteoarthritis generalized ([facility]) 296.60 Mixed bipolar I Bipolar affective Problem eC W3 disorder disorder, mixed ([facility]) 477.9 Allergic rhinitis ALLERGIC RHINITIS NOS Problem eCW3 ([facility]) F17.210 Nicotine dependence, NICOTINE DEPENDENCE, Diagnosis 12/11 cigarettes, CIGARETTES, 04:44:00 PM [facility] uncomplicated UNCOMPLICATED [facility] I10 Essential (primary) ESSENTIAL (PRIMARY) Diagnosis hypertension HYPERTENSION 04:44:00 PM [facility] E11.9 Type 2 diabetes TYPE 2 DIABETES Diagnosis 12/12/2019 Holly t mellitus without MELLITUS WITHOUT 04:44:00 PM J osephs complications COMPLICATIONS [facility] J45.909 Unspecified asthma, UNSPECIFIED ASTHMA, Diagnosis [facility] uncomplicated UNCOMPLICATED 04:44:00 PM [facility] Y99.9 Unspecified external UNSPECIFIED EXTERNAL Diagnosis 12/11 cause status CAUSE STATUS 04:44:00 PM [facility] Y92.[address] in UNSP PLACE IN UNSP Diagnosis 020 Saint unspecified NON-INSTITUT (PRIVATE) 04:44:00 PM [facility] non-institutional RESIDENCE PLACE EDT Medical (private) residence as Ce nter the place of occurrence of the external cause Y93.9 Activity, unspecified ACTIVITY, UNSPECIFIED Diagnosis Saint 04:44:00 PM [facility] W01.0XX Fall on same level from FALL SAME LEV FROM Diagnosis 11/17 A slipping, tripping and SLIP/TRIP W/O STRIKE 04: 44:00 PM Joanne stumbling without AGAINST OBJECT, INIT EDT Medical subsequent striking Jude alcaraz against object, initial encounter M54.6 Pain in thoracic spine PAIN IN THORACIC SPINE Diagnosis 0 12/12/2019 [facility] 04:44:00 PM [facility] M54.2 Cervicalgia CERVICALGIA Diagnosis 12/12/2019 [facility] 04:44:00 PM [facility] I48.91 Unspecified atrial UNSPECIFIED ATRIAL Diagnosis 9 fibrillation FIBRILLATION 05:19:00 AM [facility] G90.09 Other idiopathic OTHER IDIOPATHIC Diagnosis 02/02/2019 Sa int peripheral autonomic PERIPHERAL AUTONOMIC 05:19 :00 AM [facility] neuropathy NEUROPATHY [facility] 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/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 [place] OF PLATINUM CORONARY 05:19:00 A Jamar Rubio coronary artery without ARTERY W/O ANG PCTRS ED T Medical angina pectoris Center Z53.29 Procedure and treatment PROC/TRTMT NOT CRD OUT Diagnosis 02/02/2019 not carried out because BEC PT DECISION FOR 05: 19:00 AM Joanne of patient's decision OTH REASONS EDT Me dical for other reasons Center I50.21 Acute systolic ACUTE SYSTOLIC Diagnosis 02/02/2019 (congestive) heart (CONGESTIVE) HEART 05:19:00 AM [facility] failure FAILURE [facility] R06.00 Dyspnea, unspecified DYSPNEA, UNSPECIFIED Diagnosis 02/02 Saint 05:19:00 AM [facility] Surgeries/Procedures Procedure Description Date Indications Data Source(s) EKG W INTERPRETATION 11/02/2018 eCW3 ([facility] 12:00:00 AM [facility] EDT Care) O-TR2 TRANS TO/FROM THE 01/24/2018 eCW2 ([place] REFERRAL APPOINT 12:00:[address] [facility] EDT Care) O-CM2 CASE MANAGEMENT 01/17/2018 eCW2 ( [place] FOLLOWUP 12:00:00 AM [facility] EDT Care) COLLECTION CAPILLARY 01/06/2018 eCW2 ([facility] BLOOD SPECIMEN 12:00:00 AM [facility] EDT Care) GLUC BLD GLUC MNTR DEV 01/06/2018 eCW2 ([facility] FDA SPEC HOME 12:00:00 AM [facility] EDT Care) No Known procedures No Known procedures e CW2 ([facility]) No Known procedures No Known procedures e CW2 ([facility]) Results ID Date Data Source [id number] 12/04/2019 03:12:00 PM EDT [facility] Name Value Range Interpretation Description Data Sup porting Code Source(s) Document(s ) SARS [facility] coronavirus 2 RNA This lab was ordered by [facility] and reported by [facility]. ID Date Data Source [id number] 11/24/2019 10:00:00 AM EDT [facility] Name Value Range Interpretation Description Data Sup porting Code Source(s) Document(s ) SARS [facility] coronavirus 2 RNA This lab was ordered by [facility] and reported by [facility]. ID Date Data Source [id number] 11/06/2019 07:15:00 AM EDT [facility] Name Value Range Interpretation Description Data Sup porting Code Source(s) Document(s ) SARS [facility] coronavirus 2 RNA This lab was ordered by [facility] and reported by [facility]. ID Date Data Source [id number] 10/24/2019 09:28:00 AM EDT [facility] Name Value Range Interpretation Description Data Sup porting Code Source(s) Document(s ) SARS [facility] coronavirus 2 RNA This lab was ordered by [facility] and reported by [facility]. ID Date Data Source [id number] 10/13/2019 08:15:00 AM EDT [facility] Name Value Range Interpretation Description Data Sup porting Code Source(s) Document(s ) SARS [facility] CORONAVIRUS 2 RNA This lab was ordered by [facility] and reported by [facility]. ID Date Data Source [id number] 09/26/2019 07:59:00 AM EDT [facility] Name Value Range Interpretation Description Data Sup porting Code Source(s) Document(s ) SARS [facility] CORONAVIRUS 2 RNA This lab was ordered by [facility] and reported by [facility]. ID Date Data Source [id number] 09/16/2019 02:25:00 PM EDT [facility] Name Value Range Interpretation Description Data Sup porting Code Source(s) Document(s ) SARS [facility] CORONAVIRUS 2 RNA This lab was ordered by [facility] and reported by [facility]. ID Date Data Source Liver 02/04/2019 05:30:00 AM EDT [facility] Profile.[id number] Name Value Range Interpretation Description Data Sup porting Code Source(s) Document(s ) Alanine 7-30 <content [facility] aminotransferase styleCode="Bold"> Isak hs [Enzymatic Alanine Medical activity/volume] Aminotransferase Center in Serum or Plasma (ALT) </content>22 IU/L<content styleCode="Italic s"> (7-30 IU/L)</content> Aspartate 14-36 <content [facility] aminotransferase styleCode="Bold"> Isak hs [Enzymatic Aspartate Medical activity/volume] Aminotransferase Center in Serum or Plasma (AST) </content>20 IU/L<content styleCode="Italic s"> (14-36 IU/L)</content> Bilirubin.total 0.2-1.3 <content [facility] [Mass/volume] in styleCode="Bold"> Isak hs Serum or Plasma Bilirubin Total Medical </content>0.3 Center MG/DL<content styleCode="Italic s"> (0.2-1.3 MG/DL)</content> Alkaline 38-126 <content [facility] phosphatase styleCode="Bold"> Joanne [Enzymatic Alkaline Medical activity/volume] Phosphatase (ALP) Cente r in Serum or Plasma </content>116 IU/L<content styleCode="Italic s"> (38-126 IU/L)</content> Albumin 3.5-5.0 <content [facility] [Mass/volume] in styleCode="Bold"> Isak hs Serum or Plasma Albumin Medical </content>3.8 Center G/DL<content styleCode="Italic s"> (3.5-5.0 G/DL)</content> ID Date Data Source HematologyRou.[id number] 02/04/2019 05:30:[address] [facility] 0400 Name Value Range Interpretation Description Data Sup porting Code Source(s) Document(s ) Leukocytes 4.4-11.0 <content [facility] [#/volume] in styleCode="Bold Joanne Blood by ">White Blood Medical Automated count Cell Count Center </content>7.18 KCUMM<content styleCode="Ital ics"> (4.4-11.0 KCUMM)</content > Erythrocyte mean 80.0-100 <content [facility] corpuscular .0 styleCode="Bold Joanne volume [Entitic ">Mean Medical volume] by Corpuscular Center Automated count Volume </content>89.2 FL<content styleCode="Ital ics"> (80.0-100.0 FL)</content> Hematocrit 36.0-46. <content [facility] [Volume 0 styleCode="Bold Joanne Fraction] of ">Hematocrit Medical Blood by </content>40.5 Center Automated count %<content styleCode="Ital ics"> (36.0-46.0 %)</content> Erythrocytes 4.0-5.1 <content [facility] [#/volume] in styleCode="Bold Joanne Blood by ">Red Blood Medical Automated count Cell Count Center </content>4.54 MCUMM<content styleCode="Ital ics"> (4.0-5.1 MCUMM)</content > Hemoglobin 12.3-16. <content [facility] [Mass/volume] in 0 styleCode="Bold Joanne Blood ">Hemoglobin Medical </content>13.3 Center G/DL<content styleCode="Ital ics"> (12.3-16.0 G/DL)</content> Erythrocyte 11.5-14. <content [facility] distribution 5 styleCode="Bold Joanne width [Ratio] by ">Red Cell Medical Automated count Distribution Center Width </content>13.2 %<content styleCode="Ital ics"> (11.5-14.5 %)</content> Platelet mean 8.0-11.0 Above high <content Saint volume [Entitic normal styleCode="Bold Joanne volume] in Blood ">Mean Platelet Medical by Automated Volume Center count </content>11.9 FL H<content styleCode="Ital ics"> (8.0-11.0 FL)</content> Erythrocyte mean 32.0-37. <content [facility] corpuscular 0 styleCode="Bold Joanne hemoglobin ">Mean Corpus. Medical concentration Hgb Center [Mass/volume] by Concentration Automated count (MCHC) </content>32.8 G/DL<content styleCode="Ital ics"> (32.0-37.0 G/DL)</content> Platelets 130-400 <content Saint [#/volume] in styleCode="Bold Joanne Blood by ">Platelet Medical Automated count Count Center </content>228 KCUMM<content styleCode="Ital ics"> (130-400 KCUMM)</content > Erythrocyte mean 26.0-34. <content [facility] corpuscular 0 styleCode="Bold Joanne hemoglobin ">Mean Medical [Entitic mass] Corposcular Center by Automated Hemoglobin count </content>29.3 PG<content styleCode="Ital ics"> (26.0-34.0 PG)</content> UNK 1.6-7.3 <content Saint styleCode="Bold Joanne ">Neutrophil Medical Count Center </content>6.11 KCUMM<content styleCode="Ital ics"> (1.6-7.3 KCUMM)</content > Lymphocytes 24.0-44. Below low normal <content Saint [#/volume] in 0 styleCode="Bold Joanne Blood by ">Lymphocyte Medical Automated count </content>9.9 % Center L<content styleCode="Ital ics"> (24.0-44.0 %)</content> Neutrophils 36-66 Above high <content Saint [#/volume] in normal styleCode="Bold Joanne Blood by ">Neutrophil Medical Automated count </content>85.0 Center % H<content styleCode="Ital ics"> (36-66 %)</content> UNK 1.0-4.8 Below low normal <content Saint styleCode="Bold Joanne ">Lymphocyte Medical Count Center </content>0.71 KCUMM L<content styleCode="Ital ics"> (1.0-4.8 KCUMM)</content > UNK 0.0-0.6 <content Saint styleCode="Bold Joanne ">Eosinophil Medical Count Center </content>0.00 KCUMM<content styleCode="Ital ics"> (0.0-0.6 KCUMM)</content > Monocytes 3.0-10.0 <content Saint [#/volume] in styleCode="Bold Joanne Blood by ">Monocyte Medical Automated count </content>3.8 Center %<content styleCode="Ital ics"> (3.0-10.0 %)</content> Eosinophils 0-5.0 <content Saint [#/volume] in styleCode="Bold Joanne Blood by ">Eosinophil Medical Automated count </content>0.0 Center %<content styleCode="Ital ics"> (0-5.0 %)</content> Basophils 0.0-1.0 <content Saint [#/volume] in styleCode="Bold Joanne Blood by ">Basophil Medical Automated count </content>0.6 Center %<content styleCode="Ital ics"> (0.0-1.0 %)</content> UNK 0.2-0.9 <content Saint styleCode="Bold Joanne ">Monocyte Medical Count Center </content>0.27 KCUMM<content styleCode="Ital ics"> (0.2-0.9 KCUMM)</content > UNK 0 <content Saint styleCode="Bold Joanne ">Nucleated Red Medical Blood Cell Center </content>0.0 /100<content styleCode="Ital ics"> (0 /100)</content> UNK 0.0 <content Saint styleCode="Bold Joanne ">Nucleated Red Medical Blood Cell Center Count </content>0.00 KCUMM<content styleCode="Ital ics"> (0.0 KCUMM)</content > UNK 0.0-0.3 <content Saint styleCode="Bold Joanne ">Basophil Medical Count Center </content>0.04 KCUMM<content styleCode="Ital ics"> (0.0-0.3 KCUMM)</content > UNK 0-0.1 <content Saint styleCode="Bold Joanne ">Immature Medical Granulocyte Center Count </content>0.05 KCUMM<content styleCode="Ital ics"> (0-0.1 KCUMM)</content > UNK < 1 <content Saint styleCode="Bold Joanne ">Immature Medical Granulocyte Center Ratio </content>0.7 %<content styleCode="Ital ics"> (< 1 %)</content> ID Date Data Source GFR(Creatinine).[id number] 02/04/2019 05:30:00 AM EDT [facility] 0-0400 Name Value Range Interpretation Code Description Data Sally rce(s) Supporting Document(s ) UNK > 60 Below low normal <content [facility] styleCode="Bold"> Medical Cent er EGFR </content>60 GFR L<content styleCode="Italic s"> (> 60 GFR)</content> ID Date Data Source MRRON.[id number] 02/04/2019 05:30:00 AM EDT [facility] -0400 Name Value Range Interpretation Description Data Sup porting Code Source(s) Document(s ) UNK >= 1.0 <content [facility] styleCode="Bold Medical ">AG Ratio Center </content>1.3 <content styleCode="Ital ics"> (>= 1.0 )</content> UNK 2.3-3.5 <content [facility] styleCode="Bold Medical ">Globulin Center </content>3.0 G/DL<content styleCode="Ital ics"> (2.3-3.5 G/DL)</content> Protein 6.3-8.2 <content [facility] [Mass/volum styleCode="Bold Medical e] in Serum ">Total Protein Center or Plasma </content>6.8 G/DL<content styleCode="Ital ics"> (6.3-8.2 G/DL)</content> ID Date Data Source [facility].[id number] 02/04/2019 05:30:00 AM EDT [facility] Name Value Range Interpretation Description Data Sup porting Code Source(s) Document(s ) Potassium 3.5-5.3 <content Saint [Moles/volume] in styleCode="Bold"> Hola phs Serum or Plasma Potassium Medical </content>4.2 Center MEQ/L<content styleCode="Italic s"> (3.5-5.3 MEQ/L)</content> Sodium 137-145 Below low <content [facility] [Moles/volume] in normal styleCode="Bold"> Hola phs Serum or Plasma Sodium Medical </content>136 Center MEQ/L L<content styleCode="Italic s"> (137-145 MEQ/L)</content> Chloride 98-107 <content [facility] [Moles/volume] in styleCode="Bold"> Hola phs Serum or Plasma Chloride Medical </content>101 Center MEQ/L<content styleCode="Italic s"> (98-107 MEQ/L)</content> Carbon dioxide, 22-30 <content [facility] total styleCode="Bold"> Joanne [Moles/volume] in Carbon Dioxide Medical Serum or Plasma </content>25 Center MEQ/L<content styleCode="Italic s"> (22-30 MEQ/L)</content> UNK 7-17 Above high <content [facility] normal styleCode="Bold"> Joanne BUN </content>23 Medical MG/DL H<content Center styleCode="Italic s"> (7-17 MG/DL)</content> UNK > 60 Below low <content [facility] normal styleCode="Bold"> Joanne EGFR </content>60 Medical GFR L<content Center styleCode="Italic s"> (> 60 GFR)</content> Glucose 74-106 Above upper <content Saint [Mass/volume] in panic limits styleCode="Bold"> Meredith sephs Serum or Plasma Glucose Medical </content><conten Center t styleCode="Bold"> 441 MG/DL HH</content><cont ent styleCode="Italic s"> (74-106 MG/DL)</content> Calcium 8.4-10. Above high <content [facility] [Mass/volume] in 2 normal styleCode="Bold"> Isak hs Serum or Plasma Calcium Medical </content>10.3 Center MG/DL H<content styleCode="Italic s"> (8.4-10.2 MG/DL)</content> Creatinine 0.5-1.3 <content [facility] [Mass/volume] in styleCode="Bold"> Isak hs Serum or Plasma Creatinine Medical </content>1.2 Center MG/DL<content styleCode="Italic s"> (0.5-1.3 MG/DL)</content> Alkaline 38-126 <content [facility] phosphatase styleCode="Bold"> [facility] [Enzymatic Alkaline Medical activity/volume] Phosphatase (ALP) Cente r in Serum or Plasma </content>116 IU/L<content styleCode="Italic s"> (38-126 IU/L)</content> Bilirubin.total 0.2-1.3 <content [facility] [Mass/volume] in styleCode="Bold"> Isak hs Serum or Plasma Bilirubin Total Medical </content>0.3 Center MG/DL<content styleCode="Italic s"> (0.2-1.3 MG/DL)</content> Aspartate 14-36 <content [facility] aminotransferase styleCode="Bold"> Isak hs [Enzymatic Aspartate Medical activity/volume] Aminotransferase Center in Serum or Plasma (AST) </content>20 IU/L<content styleCode="Italic s"> (14-36 IU/L)</content> Alanine 7-30 <content [facility] aminotransferase styleCode="Bold"> Iska hs [Enzymatic Alanine Medical activity/volume] Aminotransferase Center in Serum or Plasma (ALT) </content>22 IU/L<content styleCode="Italic s"> (7-30 IU/L)</content> Albumin 3.5-5.0 <content [facility] [Mass/volume] in styleCode="Bold"> Isak hs Serum or Plasma Albumin Medical </content>3.8 Center G/DL<content styleCode="Italic s"> (3.5-5.0 G/DL)</content> ID Date Data Source Hormones.[id number] 02/03/2019 06:00:00 AM [address]EVENT [facility] Name Value Range Interpretation Description Data Sup porting Code Source(s) Document(s ) Thyrotropin 0.465-4. Above high normal <content Saint [Units/volume] 68 styleCode="Robby Joanne in Serum or d">Thyroid Medical Plasma by Stimulating Center Detection Hormone limit <= 0.05 </content>4.85 mIU/L MIU/L H<content styleCode="Ny lics"> (0.465-4.68 MIU/L)</conten t> ID Date Data Source HematologyRou.[id number] 02/03/2019 06:00:00 AM EDT [facility] 0400 Name Value Range Interpretation Description Data Sup porting Code Source(s) Document(s ) Erythrocyte mean 80.0-100 <content [facility] corpuscular .0 styleCode="Bold Joanne volume [Entitic ">Mean Medical volume] by Corpuscular Center Automated count Volume </content>89.6 FL<content styleCode="Ital ics"> (80.0-100.0 FL)</content> Hematocrit 36.0-46. <content Saint [Volume 0 styleCode="Bold Joanne Fraction] of ">Hematocrit Medical Blood by </content>37.2 Center Automated count %<content styleCode="Ital ics"> (36.0-46.0 %)</content> Leukocytes 4.4-11.0 <content Saint [#/volume] in styleCode="Bold Joanne Blood by ">White Blood Medical Automated count Cell Count Center </content>6.08 KCUMM<content styleCode="Ital ics"> (4.4-11.0 KCUMM)</content > Erythrocytes 4.0-5.1 <content Saint [#/volume] in styleCode="Bold Joanne Blood by ">Red Blood Medical Automated count Cell Count Center </content>4.15 MCUMM<content styleCode="Ital ics"> (4.0-5.1 MCUMM)</content > Hemoglobin 12.3-16. Below low normal <content Saint [Mass/volume] in 0 styleCode="Bold Joanne Blood ">Hemoglobin Medical </content>12.2 Center G/DL L<content styleCode="Ital ics"> (12.3-16.0 G/DL)</content> Erythrocyte mean 26.0-34. <content [facility] corpuscular 0 styleCode="Bold Joanne hemoglobin ">Mean Medical [Entitic mass] Corposcular Center by Automated Hemoglobin count </content>29.4 PG<content styleCode="Ital ics"> (26.0-34.0 PG)</content> Erythrocyte 11.5-14. <content Saint distribution 5 styleCode="Bold Joanne width [Ratio] by ">Red Cell Medical Automated count Distribution Center Width </content>13.2 %<content styleCode="Ital ics"> (11.5-14.5 %)</content> Platelet mean 8.0-11.0 Above high <content Saint volume [Entitic normal styleCode="Bold Joanne volume] in Blood ">Mean Platelet Medical by Automated Volume Center count </content>11.5 FL H<content styleCode="Ital ics"> (8.0-11.0 FL)</content> Platelets 130-400 <content Saint [#/volume] in styleCode="Bold Joanne Blood by ">Platelet Medical Automated count Count Center </content>220 KCUMM<content styleCode="Ital ics"> (130-400 KCUMM)</content > Erythrocyte mean 32.0-37. <content [facility] corpuscular 0 styleCode="Bold Joanne hemoglobin ">Mean Corpus. Medical concentration Hgb Center [Mass/volume] by Concentration Automated count (MCHC) </content>32.8 G/DL<content styleCode="Ital ics"> (32.0-37.0 G/DL)</content> UNK 0 <content Saint styleCode="Bold Joanne ">Nucleated Red Medical Blood Cell Center </content>0.0 /100<content styleCode="Ital ics"> (0 /100)</content> UNK 0.0 <content Saint styleCode="Bold Joanne ">Nucleated Red Medical Blood Cell Center Count </content>0.00 KCUMM<content styleCode="Ital ics"> (0.0 KCUMM)</content > ID Date Data Source GFR(Creatinine).[id number] 02/03/2019 06:00:00 AM EDT [facility] 0-0400 Name Value Range Interpretation Code Description Data Sally rce(s) Supporting Document(s ) UNK > 60 <content [facility] styleCode="Bold"> Medical Cent er EGFR </content>84 GFR<content styleCode="Italic s"> (> 60 GFR)</content> ID Date Data Source CHMROUTINECCDA.[id number] 02/03/2019 06:00:00 AM EDT [facility] -0400 Name Value Range Interpretation Description Data Sup porting Code Source(s) Document(s ) Magnesium 1.6-2.3 Below low normal <content Saint [Mass/volume] styleCode="Robby Joanne in Serum or d">Magnesium Medical Plasma </content>1.5 Center MG/DL L<content styleCode="Ny lics"> (1.6-2.3 MG/DL)</conten t> UNK 4.2-5.8 Above high normal <content Saint styleCode="Robby Joanne d">Hemoglobin Medical A1C Center </content>8.6 % H<content styleCode="Ny lics"> (4.2-5.8 %)</content> Phosphate 2.5-4.5 <content [facility] [Mass/volume] styleCode="Robby Joanne in Serum or d">Phosphorus Medical Plasma </content>4.2 Center MG/DL<content styleCode="Ny lics"> (2.5-4.5 MG/DL)</conten t> ID Date Data Source Cardiac[employer]ers.[id number] 02/03/2019 06:00:00 AM EDT [facility] -0400 Name Value Range Interpretation Description Data Sup porting Code Source(s) Document(s ) Troponin < 0.034 <content Saint I.cardiac styleCode="Bold Joanne [Mass/volume ">Troponin I Medical ] in Serum </content>0.033 Center or Plasma NG/ML<content styleCode="Ital ics"> (< 0.034 NG/ML)</content > ID Date Data Source [facility].[id number] 02/03/2019 06:00:00 AM EDT [facility] Name Value Range Interpretation Description Data Sup porting Code Source(s) Document(s ) Potassium 3.5-5.3 <content Saint [Moles/volume] styleCode="Robby Peñas in Serum or d">Potassium Medical Plasma </content>4.1 Center MEQ/L<content styleCode="Ny lics"> (3.5-5.3 MEQ/L)</conten t> Sodium 137-145 <content Saint [Moles/volume] styleCode="Robby Peñas in Serum or d">Sodium Medical Plasma </content>141 Center MEQ/L<content styleCode="Ny lics"> (137-145 MEQ/L)</conten t> Chloride 98-107 <content Saint [Moles/volume] styleCode="Robby Joanne in Serum or d">Chloride Medical Plasma </content>106 Center MEQ/L<content styleCode="Ny lics"> (98-107 MEQ/L)</conten t> Glucose 74-106 Above high normal <content Saint [Mass/volume] styleCode="Robby Peñas in Serum or d">Glucose Medical Plasma </content>200 Center MG/DL H<content styleCode="Ny lics"> (74-106 MG/DL)</conten t> UNK 7-17 Above high normal <content Saint styleCode="Robby Joanne d">BUN Medical </content>21 Center MG/DL H<content styleCode="Ny lics"> (7-17 MG/DL)</conten t> Creatinine 0.5-1.3 <content [facility] [Mass/volume] styleCode="Robby Joanne in Serum or d">Creatinine Medical Plasma </content>0.9 Center MG/DL<content styleCode="Ny lics"> (0.5-1.3 MG/DL)</conten t> Carbon 22-30 <content [facility] dioxide, total styleCode="Robby Joanne [Moles/volume] d">Carbon Medical in Serum or Dioxide Center Plasma </content>29 MEQ/L<content styleCode="Ny lics"> (22-30 MEQ/L)</conten t> Calcium 8.4-10.2 <content Saint [Mass/volume] styleCode="Robby Peñas in Serum or d">Calcium Medical Plasma </content>10.1 Center MG/DL<content styleCode="Ny lics"> (8.4-10.2 MG/DL)</conten t> UNK > 60 <content Saint styleCode="Robby Joanne d">EGFR Medical </content>84 Center GFR<content styleCode="Ny lics"> (> 60 GFR)</content> ID Date Data Source Urinalysis.[id number] 02/02/2019 07:10:00 AM EDT [facility] 0 Name Value Range Interpretation Description Data Sup porting Code Source(s) Document(s ) Color of Urine YELLOW <content Saint styleCode="Robby Peñas d">Color, Medical Urine Center </content>YELL OW <content styleCode="Ny lics"> (YELLOW )</content> Glucose NEGATIVE <content [facility] [Mass/volume] styleCode="Robby Peñas in Urine by d">Urine Medical Test strip Glucose Center </content>NEGA TIVE MG/DL<content styleCode="Ny lics"> (NEGATIVE MG/DL)</conten t> UNK NEGATIVE <content Saint styleCode="Robby Peñas d">Urine Medical Bilirubin Center </content>NEGA TIVE <content styleCode="Ny lics"> (NEGATIVE )</content> UNK CLEAR <content Saint styleCode="Robby Joanne d">Urine Medical Clarity Center </content>TIFFANIE R <content styleCode="Ny lics"> (CLEAR )</content> Ketones NEGATIVE <content [facility] [Mass/volume] styleCode="Robby Peñas in Urine by d">Urine Medical Test strip Ketone Center </content>NEGA TIVE MG/DL<content styleCode="Ny lics"> (NEGATIVE MG/DL)</conten t> Specific 1.015-1.02 Below low normal <content [facility] gravity of 5 styleCode="Robby Joanne Urine by Test d">Urine Medical strip Specific Center [place] </content>1.01 0 L<content styleCode="Ny lics"> (1.015-1.025 )</content> Urobilinogen 0.2-1.0 <content [facility] [Units/volume] styleCode="Robby Joanne in Urine by d">Urine Medical Test strip Urobilinogen Center </content>0.2 MG/DL<content styleCode="Ny lics"> (0.2-1.0 MG/DL)</conten t> Protein NEGATIVE <content [facility] [Mass/volume] styleCode="Robby Joanne in Urine by d">Urine Medical Test strip Protein Center </content>TRAC E MG/DL<content styleCode="Ny lics"> (NEGATIVE MG/DL)</conten t> Hemoglobin NEGATIVE <content Saint [Presence] in styleCode="Robby Joanne Urine by Test d">Urine Blood Medical strip </content>TRAC Center E <content styleCode="Ny lics"> (NEGATIVE )</content> pH of Urine by 4.5-8.0 <content Saint Test strip styleCode="Robby Joanne d">Urine pH Medical </content>5.5 Center <content styleCode="Ny lics"> (4.5-8.0 )</content> Leukocyte NEGATIVE <content [facility] esterase styleCode="Robby Joanne [Presence] in d">Urine Medical Urine by Test Leukocyte Center strip </content>NEGA TIVE <content styleCode="Ny lics"> (NEGATIVE )</content> UNK 0-3 <content Saint styleCode="Robby Joanne d">Urine White Medical Blood Cell Center </content>0-3 HPF<content styleCode="Ny lics"> (0-3 HPF)</content> Nitrite NEGATIVE <content Saint [Presence] in styleCode="Robby Joanne Urine by Test d">Urine Medical strip Nitrite Center </content>NEGA TIVE <content styleCode="Ny lics"> (NEGATIVE )</content> UNK 0-3 <content Saint styleCode="Robby Joanne d">Urine Red Medical Blood Cell Center </content>0-3 HPF<content styleCode="Ny lics"> (0-3 HPF)</content> UNK NONE SEEN <content Saint styleCode="Robby Joanne d">Epithelial Medical Cell Center </content>2-5 HPF<content styleCode="Ny lics"> (NONE SEEN HPF)</content> UNK NEGATIVE <content Saint styleCode="Robby Joanne d">Urine Medical Bacteria Center </content>FEW HPF<content styleCode="Ny lics"> (NEGATIVE HPF)</content> ID Date Data Source LIPID.[id number] 02/02/2019 06:35:00 AM EDT [facility] Name Value Range Interpretation Description Data Sup porting Code Source(s) Document(s ) Cholesterol -<200 <content [facility] [Mass/volume] in styleCode="Robby Joanne Serum or Plasma d">Cholesterol Medical </content>133 Center MG/DL<content styleCode="Ny lics"> (-<200 MG/DL)</conten t> Triglyceride < 150 <content [facility] [Mass/volume] in styleCode="Robby Joanne Serum or Plasma d">Triglycerid [facility] es Center </content>94 MG/DL<content styleCode="Ny lics"> (< 150 MG/DL)</conten t> UNK < 100 <content [facility] styleCode="Robby Joanne d">LDL-Cholest Medical simon Center </content>57 MG/DL<content styleCode="Ny lics"> (< 100 MG/DL)</conten t> UNK > 60 Below low normal <content Saint styleCode="Robby Joanne d">HDL- Medical Cholesterol Center </content>57 MG/DL L<content styleCode="Ny lics"> (> 60 MG/DL)</conten t> ID Date Data Source GFR(Creatinine).[id number] 02/02/2019 06:35:00 AM EDT [facility] 0-0400 Name Value Range Interpretation Code Description Data Sally rce(s) Supporting Document(s ) UNK > 60 <content [facility] Joanne styleCode="Bold"> Medical Cent er EGFR </content>113 GFR<content styleCode="Italic s"> (> 60 GFR)</content> ID Date Data Source Coagulation 02/02/2019 06:35:00 AM [facility] ical Center Rout.[id number] EDT Name Value Range Interpretation Description Data Sup porting Code Source(s) Document(s ) UNK 9.0-13.0 Above high normal <content Saint styleCode="Bold" Joanne >Protime Medical </content>22.9 Center SEC H<content styleCode="Itali cs"> (9.0-13.0 SEC)</content> aPTT in 25.1-36. Above high normal <content [facility] Platelet poor 5 styleCode="Bold" Joanne plasma by >Partial Medical Coagulation Thromboplastin Center assay Time </content>45.0 SEC H<content styleCode="Itali cs"> (25.1-36.5 SEC)</content> INR in 0.80-1.2 Above high normal <content [facility] Platelet poor 0 styleCode="Bold" Joanne plasma by >INR Medical Coagulation </content>2.06 # Center assay H<content styleCode="Itali cs"> (0.80-1.20 #)</content> UNK < 500 <content Saint styleCode="Bold" Joanne >D-Dimer Medical </content>223 Center ngFEU<content styleCode="Itali cs"> (< 500 ngFEU)</content> ID Date Data Source CardiacMarkers.[id number] 02/02/2019 06:35:00 AM EDT [facility] -0400 Name Value Range Interpretation Description Data Sup porting Code Source(s) Document(s ) Troponin < 0.034 Above upper panic <content Saint I.cardiac limits styleCode="Bold Joanne [Mass/volume ">Troponin I Medical ] in Serum </content><cont Center or Plasma ent styleCode="Bold ">0.038 NG/ML HH</content><co ntent styleCode="Ital ics"> (< 0.034 NG/ML)</content > ID Date Data Source [facility].[id number] 02/02/2019 06:35:00 AM EDT [facility] Name Value Range Interpretation Description Data Sup porting Code Source(s) Document(s ) Potassium 3.5-5.3 <content [facility] [Moles/volume] styleCode="Robby Joanne in Serum or d">Potassium Medical Plasma </content>4.3 Center MEQ/L<content styleCode="Ny lics"> (3.5-5.3 MEQ/L)</conten t> Chloride 98-107 Above high normal <content [facility] [Moles/volume] styleCode="Robby Joanne in Serum or d">Chloride Medical Plasma </content>108 Center MEQ/L H<content styleCode="Ny lics"> (98-107 MEQ/L)</conten t> Sodium 137-145 <content Saint [Moles/volume] styleCode="Robby Joanne in Serum or d">Sodium Medical Plasma </content>141 Center MEQ/L<content styleCode="Ny lics"> (137-145 MEQ/L)</conten t> Carbon 22-30 Below low normal <content [facility] dioxide, total styleCode="Robby Joanne [Moles/volume] d">Carbon Medical in Serum or Dioxide Center Plasma </content>21 MEQ/L L<content styleCode="Ny lics"> (22-30 MEQ/L)</conten t> Creatinine 0.5-1.3 <content [facility] [Mass/volume] styleCode="Robby Joanne in Serum or d">Creatinine Medical Plasma </content>0.7 Center MG/DL<content styleCode="Ny lics"> (0.5-1.3 MG/DL)</conten t> UNK 7-17 <content Saint styleCode="Robby Joanne d">BUN Medical </content>15 Center MG/DL<content styleCode="Ny lics"> (7-17 MG/DL)</conten t> Calcium 8.4-10.2 Above high normal <content Saint [Mass/volume] styleCode="Robby Joanne in Serum or d">Calcium Medical Plasma </content>10.8 Center MG/DL H<content styleCode="Ny lics"> (8.4-10.2 MG/DL)</conten t> Glucose 74-106 <content Saint [Mass/volume] styleCode="Robby Joanne in Serum or d">Glucose Medical Plasma </content>90 Center MG/DL<content styleCode="Ny lics"> (74-106 MG/DL)</conten t> UNK > 60 <content Saint styleCode="Robby Joanne d">EGFR Medical </content>113 Center GFR<content styleCode="Ny lics"> (> 60 GFR)</content> ID Date Data Source HematologyRou.[id number] 02/02/2019 06:00:[address] [facility] 0400 Name Value Range Interpretation Description Data Sup porting Code Source(s) Document(s ) Leukocytes 4.4-11.0 <content Saint [#/volume] in styleCode="Bold Joanne Blood by ">White Blood Medical Automated count Cell Count Center </content>6.34 KCUMM<content styleCode="Ital ics"> (4.4-11.0 KCUMM)</content > Erythrocyte mean 80.0-100 <content Saint corpuscular .0 styleCode="Bold Joanne volume [Entitic ">Mean Medical volume] by Corpuscular Center Automated count Volume </content>88.5 FL<content styleCode="Ital ics"> (80.0-100.0 FL)</content> Hemoglobin 12.3-16. <content Saint [Mass/volume] in 0 styleCode="Bold Joanne Blood ">Hemoglobin Medical </content>13.5 Center G/DL<content styleCode="Ital ics"> (12.3-16.0 G/DL)</content> Hematocrit 36.0-46. <content Saint [Volume 0 styleCode="Bold Joanne Fraction] of ">Hematocrit Medical Blood by </content>40.7 Center Automated count %<content styleCode="Ital ics"> (36.0-46.0 %)</content> Erythrocytes 4.0-5.1 <content Saint [#/volume] in styleCode="Bold Joanne Blood by ">Red Blood Medical Automated count Cell Count Center </content>4.60 MCUMM<content styleCode="Ital ics"> (4.0-5.1 MCUMM)</content > Erythrocyte mean 32.0-37. <content Saint corpuscular 0 styleCode="Bold Joanne hemoglobin ">Mean Corpus. Medical concentration Hgb Center [Mass/volume] by Concentration Automated count (MCHC) </content>33.2 G/DL<content styleCode="Ital ics"> (32.0-37.0 G/DL)</content> Platelets 130-400 <content Saint [#/volume] in styleCode="Bold Joanne Blood by ">Platelet Medical Automated count Count Center </content>245 KCUMM<content styleCode="Ital ics"> (130-400 KCUMM)</content > Erythrocyte 11.5-14. <content [facility] distribution 5 styleCode="Bold Joanne width [Ratio] by ">Red Cell Medical Automated count Distribution Center Width </content>13.2 %<content styleCode="Ital ics"> (11.5-14.5 %)</content> Erythrocyte mean 26.0-34. <content [facility] corpuscular 0 styleCode="Bold Joanne hemoglobin ">Mean Medical [Entitic mass] Corposcular Center by Automated Hemoglobin count </content>29.3 PG<content styleCode="Ital ics"> (26.0-34.0 PG)</content> UNK 0 <content Saint styleCode="Bold Joanne ">Nucleated Red Medical Blood Cell Center </content>0.0 /100<content styleCode="Ital ics"> (0 /100)</content> Platelet mean 8.0-11.0 <content Saint volume [Entitic styleCode="Bold Joanne volume] in Blood ">Mean Platelet Medical by Automated Volume Center count </content>11.0 FL<content styleCode="Ital ics"> (8.0-11.0 FL)</content> UNK 0.0 <content Saint styleCode="Bold Joanne ">Nucleated Red Medical Blood Cell Center Count </content>0.00 KCUMM<content styleCode="Ital ics"> (0.0 KCUMM)</content > ID Date Data Source GFR(Creatinine).[id number] 02/02/2019 06:00:00 AM EDT [facility] 0-0400 Name Value Range Interpretation Code Description Data Sally rce(s) Supporting Document(s ) UNK <content [facility] styleCode="Bold"> Medical Cent er EGFR </content>TNP (Reference Range: not available)
ID Date Data Source Coagulation 02/02/2019 06:00:00 AM [facility] ical Center Rout.[id number] EDT Name Value Range Interpretation Description Data Sup porting Code Source(s) Document(s ) UNK <content Saint styleCode="Bold"> Joanne Protime Medical </content>TNP Center (Reference Range: not available)
INR in <content Saint Platelet poor styleCode="Bold"> Joanne plasma by INR Medical Coagulation </content>Test Center assay not performed. # (Reference Range: not available)
aPTT in <content Saint Platelet poor styleCode="Bold"> Joanne plasma by Partial Medical Coagulation Thromboplastin Center assay Time </content>TNP (Reference Range: not available)
UNK <content Saint styleCode="Bold"> Joanne D-Dimer Medical </content>TNP Center (Reference Range: not available)
ID Date Data Source CardiacMarkers.[id number] 02/02/2019 06:00:00 AM EDT [facility] -0400 Name Value Range Interpretation Description Data Sup porting Code Source(s) Document(s ) Troponin <content [facility] I.cardiac styleCode="Bold Medical [Mass/volume ">Troponin I Center ] in Serum </content>TNP or Plasma (Reference Range: not available)
ID Date Data Source BMP.[id number] 02/02/2019 06:00:00 AM EDT [facility] Name Value Range Interpretation Description Data Sup porting Code Source(s) Document(s ) Sodium <content Saint [Moles/volume] styleCode="Bold Joanne in Serum or ">Sodium Medical Plasma </content>TNP Center (Reference Range: not available)
Potassium <content Saint [Moles/volume] styleCode="Bold Joanne in Serum or ">Potassium Medical Plasma </content>TNP Center (Reference Range: not available)
Carbon <content Saint dioxide, total styleCode="Bold Joanne [Moles/volume] ">Carbon Medical in Serum or Dioxide Center Plasma </content>TNP (Reference Range: not available)
UNK <content [facility] styleCode="Bold Joanne ">BUN Medical </content>TNP Center (Reference Range: not available)
Chloride <content Saint [Moles/volume] styleCode="Bold Joanne in Serum or ">Chloride Medical Plasma </content>TNP Center (Reference Range: not available)
UNK <content [facility] styleCode="Bold Joanne ">EGFR Medical </content>TNP Center (Reference Range: not available)
Calcium <content Saint [Mass/volume] styleCode="Bold Joanne in Serum or ">Calcium Medical Plasma </content>TNP Center (Reference Range: not available)
Creatinine <content Saint [Mass/volume] styleCode="Bold Joanne in Serum or ">Creatinine Medical Plasma </content>TNP Center (Reference Range: not available)
Glucose <content Saint [Mass/volume] styleCode="Bold Joanne in Serum or ">Glucose Medical Plasma </content>TNP Center (Reference Range: not available)
ID Date Data Source Finger Stick Glucose with 01/06/2018 12:00:00 AM EDT eCW2 ([facility] Glucometer, In House.0 Care) Name Value Range Interpretation Code Description Data Sally rce(s) Supporting Document(s ) 265 65 mg/dL - Capillary eCW2 ([place] 110 mg/dL Glucose [facility]) Capillary eCW2 ([place] GlucoseTest #2 [facility]) Capillary eCW2 ([place] Glucose Test#3 [facility]) Procedure Social History Code Duration Value Status Description Data Source(s ) Smoking 12/20/2019 Never Smoker completed Never Smoker eCW3 ([place] 12:00:00 AM [facility]) Smoking 12/20/2019 Never Smoker completed Never Smoker eCW3 ([place] 12:00:00 AM [facility]) Smoking 12/12/2019 Daily Smoker completed Daily Smoker [facility] 07:54:00 PM EDT Medical C enter Smoking 12/12/2019 Daily Smoker completed Daily Smoker [facility] 06:31:00 PM EDT Medical C enter Smoking 12/12/2019 Daily Smoker completed Daily Smoker [facility] 05:00:00 PM EDT Medical C enter Smoking 11/30/2019 Never Smoker completed Never Smoker eCW3 ([place] 12:00:00 AM [facility]) Smoking 11/30/2019 Never Smoker completed Never Smoker eCW3 ([place] 12:00:00 AM [facility]) Smoking 11/30/2019 Never Smoker completed Never Smoker eCW3 ([place] 12:00:00 AM [facility]) Smoking 11/12/2019 Never Smoker completed Never Smoker eCW3 ([place] 12:00:00 AM [facility]) Smoking 09/24/2019 Never Smoker completed Never Smoker eCW3 ([place] 12:00:00 AM [facility]) Smoking 09/24/2019 Never Smoker completed Never Smoker eCW3 ([place] 12:00:00 AM [facility]) Smoking 09/24/2019 Never Smoker completed Never Smoker eCW3 ([place] 12:00:00 AM [facility]) Smoking 09/24/2019 Never Smoker completed Never Smoker eCW3 ([place] 12:00:00 AM [facility]) Smoking 09/24/2019 Never Smoker completed Never Smoker eCW3 ([place] 12:00:00 AM [facility]) Smoking 09/21/2019 Never Smoker completed Never Smoker eCW3 ([place] 12:00:00 AM [facility]) Smoking 09/13/2019 Never Smoker completed Never Smoker eCW3 ([place] 12:00:00 AM [facility]) Smoking 09/06/2019 Never Smoker completed Never Smoker eCW3 ([place] 12:00:00 AM [facility]) Smoking 09/06/2019 Never Smoker completed Never Smoker eCW3 ([place] 12:00:00 AM [facility]) Smoking 09/06/2019 Never Smoker completed Never Smoker eCW3 ([place] 12:00:00 AM [facility]) Smoking 09/06/2019 Never Smoker completed Never Smoker eCW3 ([place] 12:00:00 AM [facility]) Smoking 09/06/2019 Never Smoker completed Never Smoker eCW3 ([place] 12:00:00 AM [facility]) Smoking 08/06/2019 Never Smoker completed Never Smoker eCW3 ([place] 12:00:00 AM [facility]) Smoking 08/06/2019 Never Smoker completed Never Smoker eCW3 ([place] 12:00:00 AM [facility]) Smoking 08/06/2019 Never Smoker completed Never Smoker eCW3 ([place] 12:00:00 AM [facility]) Smoking 08/06/2019 Never Smoker completed Never Smoker eCW3 ([place] 12:00:00 AM [facility]) Smoking 08/06/2019 Never Smoker completed Never Smoker eCW3 ([place] 12:00:00 AM [facility]) Smoking 07/05/2019 Never Smoker completed Never Smoker eCW3 ([place] 12:00:00 AM [facility]) Smoking 07/05/2019 Never Smoker completed Never Smoker eCW3 ([place] 12:00:00 AM [facility]) Smoking 07/05/2019 Never Smoker completed Never Smoker eCW3 ([place] 12:00:00 AM [facility]) Smoking 07/05/2019 Never Smoker completed Never Smoker eCW3 ([place] 12:00:00 AM [facility]) Smoking 05/25/2019 Current Smoker completed Current Smoker eCW3 ( [place] 12:00:00 AM [facility]) Smoking 02/02/2019 Daily Smoker completed Daily Smoker [facility] 04:26:00 PM EDT Medical C enter Smoking 02/02/2019 Daily Smoker completed Daily Smoker [facility] 03:46:00 PM EDT Medical C enter Smoking 02/02/2019 Daily Smoker completed Daily Smoker [facility] 01:18:00 PM EDT Medical C enter Smoking 02/02/2019 Daily Smoker completed Daily Smoker [facility] 05:49:00 AM EDT Medical C enter Smoking 02/02/2019 Daily Smoker completed Daily Smoker [facility] 05:45:00 AM EDT Medical C enter Smoking 12/29/2018 Current Smoker completed Current Smoker eCW3 ( [place] 12:00:00 AM [facility]) Smoking 02/27/2018 Current Smoker completed Current Smoker eCW3 ( [place] 12:00:00 AM [facility]) Smoking 02/27/2018 Current Smoker completed Current Smoker eCW3 ( [place] 12:00:00 AM [facility]) Smoking 02/27/2018 Current Smoker completed Current Smoker eCW3 ( [place] 12:00:00 AM [facility]) Never Smoker completed Never Smoker eCW3 ([place]) Never Smoker completed Never Smoker eCW3 ([facility]) Never Smoker completed Never Smoker eCW3 ([facility]) Never Smoker completed Never Smoker eCW3 ([facility]) Never Smoker completed Never Smoker eCW3 ([facility]) Never Smoker completed Never Smoker eCW3 ([facility]) Never Smoker completed Never Smoker eCW3 ([facility]) Never Smoker completed Never Smoker eCW3 ([facility]) Never Smoker completed Never Smoker eCW3 ([facility]) Never Smoker completed Never Smoker eCW3 ([facility]) Never Smoker completed Never Smoker eCW3 ([facility]) Never Smoker completed Never Smoker eCW3 ([facility]) Never Smoker completed Never Smoker eCW3 ([facility]) Never Smoker completed Never Smoker eCW3 ([place] [facility]) Never Smoker completed Never Smoker eCW3 ([place]) Never Smoker completed Never Smoker eCW3 ([place]) Never Smoker completed Never Smoker eCW3 ([place] [facility]) Never Smoker completed Never Smoker eCW3 ([place]) Never Smoker completed Never Smoker eCW3 ([place] [facility]) Never Smoker completed Never Smoker eCW3 ([place] [facility]) Never Smoker completed Never Smoker eCW3 ([place]) Never Smoker completed Never Smoker eCW3 ([place] [facility]) Never Smoker completed Never Smoker eCW3 ([place]) Never Smoker completed Never Smoker eCW3 ([place] [facility]) Never Smoker completed Never Smoker eCW3 ([place] [facility]) Never Smoker completed Never Smoker eCW3 ([place] [facility]) Never Smoker completed Never Smoker eCW3 ([place] [facility]) Current Smoker completed Current Smoker eCW3 ( [place] [facility]) Current Smoker completed Current Smoker eCW3 ( [place] [facility]) Smoking Current Smoker completed Current Smoker eCW2 ( [place] [facility]) Smoking Unknown if ever completed Unknown if ever eCW2 ([place] smoked smoked [facility]) Smoking Unknown if ever completed Unknown if ever eCW2 ([place] smoked smoked [facility]) Smoking Unknown if ever completed Unknown if ever eCW2 ([place] smoked smoked [facility]) Smoking Unknown if ever completed Unknown if ever eCW2 ([place] smoked smoked [facility]) Smoking Unknown if ever completed Unknown if ever eCW2 ([place] smoked smoked [facility]) Smoking Unknown if ever completed Unknown if ever eCW2 ([place] smoked smoked [facility]) Smoking Unknown if ever completed Unknown if ever eCW2 ([place] smoked smoked [facility]) Current Smoker completed Current Smoker eCW3 ( [place] [facility]) Current Smoker completed Current Smoker eCW3 ( [place] [facility]) Current Smoker completed Current Smoker eCW3 ( [place] [facility]) Vital Signs ID Date Data Source UNK Name Value Range Interpretation Code Description Data Source(s) Body temperature 36.823742 36.134139 [facility] Respiratory rate 16 /min 16 /min [facility] Oxygen saturation 98 % 98 % [facility] blood [facility] by Pulse oximetry Heart rate 84 /min 84 /min [facility] Diastolic blood 86 mm[Hg] 86 mm[Hg] [facility] pressure Medical Center Systolic blood 132 mm[Hg] 132 mm[Hg] [facility] Body temperature 36.644365 36.917223 [facility] Respiratory rate 19 /min 19 /min [facility] Oxygen saturation 99 % 99 % [facility] by Pulse oximetry Heart rate 80 /min 80 /min [facility] Diastolic blood 92 mm[Hg] 92 mm[Hg] [facility] pressure Medical Center Systolic blood 130 mm[Hg] 130 mm[Hg] [facility] Body weight 85.071746 kg 85.766331 kg [facility] [place] Body temperature 36.769228 36.008345 [facility] Respiratory rate 18 /min 18 /min [facility] Oxygen saturation 97 % 97 % [facility] by Pulse oximetry Heart rate 96 /min 96 /min [facility] Body height 170.481706 170.050340 [facility] Diastolic blood 92 mm[Hg] 92 mm[Hg] [facility] pressure Medical Center Systolic blood 124 mm[Hg] 124 mm[Hg] [facility] Body mass index 29.3 kg/m2 29.3 kg/m2 [facility] (BMI) [Ratio] Medical [place] [facility] Oxygen saturation 98 % 98 % [facility] by Pulse oximetry Body temperature 36.415307 36.882463 [facility] Respiratory rate 20 /min 20 /min [facility] Heart rate 92 /min 92 /min [facility] Diastolic blood 94 mm[Hg] 94 mm[Hg] [facility] pressure Medical Center Systolic blood 141 mm[Hg] 141 mm[Hg] [facility] Body temperature 36.100291 36.046736 [facility] Respiratory rate 20 /min 20 /min [facility] Heart rate 74 /min 74 /min [facility] Diastolic blood 81 mm[Hg] 81 mm[Hg] [facility] Systolic blood 148 mm[Hg] 148 mm[Hg] [facility] Body weight 105.015733 105.314352 kg [facility] Measured kg Medical Center Body temperature 36.306032 36.817711 [facility] Respiratory rate 20 /min 20 /min [facility] Heart rate 85 /min 85 /min [facility] Diastolic blood 78 mm[Hg] 78 mm[Hg] [facility] Systolic blood 133 mm[Hg] 133 mm[Hg] [facility] Body temperature 36.149766 36.327730 [facility] Respiratory rate 20 /min 20 /min [facility] Heart rate 89 /min 89 /min [facility] Diastolic blood 79 mm[Hg] 79 mm[Hg] [facility] Systolic blood 137 mm[Hg] 137 mm[Hg] [facility] Body temperature 37.103255 37.169923 [facility] Respiratory rate 20 /min 20 /min [facility] Heart rate 72 /min 72 /min [facility] Diastolic blood 93 mm[Hg] 93 mm[Hg] [facility] Systolic blood 159 mm[Hg] 159 mm[Hg] [facility] Oxygen saturation 99 % 99 % [facility] blood [facility] by Pulse oximetry Body weight 107.655594 107.740316 kg [facility] Measured kg Medical Center Body height 173.451682 173.338600 cm [facility] Body mass index 35.51 kg/m2 35.51 kg/m2 [facility] (BMI) [Ratio] Medical [facility] ter Body weight 107.053605 107.499684 kg [facility] Measured kg Medical Center Oxygen saturation 100 % 100 % [facility] blood [facility] by Pulse oximetry Body height 173.973992 173.740513 cm [facility] Body mass index 35.51 kg/m2 35.51 kg/m2 [facility] (BMI) [Ratio] Medical [facility] ter Body temperature 36.407234 36.836652 [facility] Respiratory rate 18 /min 18 /min [facility] Heart rate 71 /min 71 /min [facility] Diastolic blood 92 mm[Hg] 92 mm[Hg] [facility] Systolic blood 143 mm[Hg] 143 mm[Hg] [facility] Medical [place] Body weight 107.873653 107.778198 kg [facility] Measured kg Medical Center Body temperature 36.901146 36.479902 [facility] Respiratory rate 20 /min 20 /min [facility] Heart rate 80 /min 80 /min [facility] Diastolic blood 94 mm[Hg] 94 mm[Hg] [facility] Medical [place] Systolic blood 132 mm[Hg] 132 mm[Hg] [facility] Oxygen saturation 97 % 97 % [facility] Arterial blood [facility] Center by Pulse oximetry Body temperature 36.845977 36.435621 [facility] Respiratory rate 18 /min 18 /min [facility] Heart rate 85 /min 85 /min [facility] Diastolic blood 77 mm[Hg] 77 mm[Hg] [facility] Systolic blood 141 mm[Hg] 141 mm[Hg] [facility] Oxygen saturation 98 % 98 % [facility] Arterial blood [facility] Center by Pulse oximetry Body temperature 36.323604 36.383064 [facility] Respiratory rate 18 /min 18 /min [facility] Heart rate 83 /min 83 /min [facility] Diastolic blood 80 mm[Hg] 80 mm[Hg] [facility] Systolic blood 137 mm[Hg] 137 mm[Hg] [facility] Body temperature 37.455730 37.252247 [facility] Respiratory rate 18 /min 18 /min [facility] Oxygen saturation 97 % 97 % [facility] Arterial blood [facility] Center by Pulse oximetry Heart rate 82 /min 82 /min [facility] Diastolic blood 78 mm[Hg] 78 mm[Hg] [facility] Systolic blood 138 mm[Hg] 138 mm[Hg] [facility] Oxygen saturation 97 % 97 % [facility] Arterial blood Medical Center by Pulse oximetry Diastolic blood 137 mm[Hg] 137 mm[Hg] eCW3 ([facility]) Systolic blood 159 mm[Hg] 159 mm[Hg] eCW3 ([facility]) Body temperature 98.1 [degF] 98.1 [degF] eCW3 ( [facility]) Heart rate 20 /min 20 /min eCW3 ([facility]) Body mass index 34.36 kg/m2 34.36 kg/m2 eCW3 ([facility] (BMI) [Ratio] [facility]) Body weight 226 [lb_av] 226 [lb_av] eCW3 ([facility]) Body height 68 [in_i] 68 [in_i] eCW3 ([facility]) Diastolic blood 85 mm[Hg] 85 mm[Hg] eCW3 ([facility]) Systolic blood 129 mm[Hg] 129 mm[Hg] eCW3 ([facility]) Body temperature 98 [degF] 98 [degF] eCW3 ([facility]) Heart rate 20 /min 20 /min eCW3 ([facility]) Body mass index 35.27 kg/m2 35.27 kg/m2 eCW3 ([facility] (BMI) [Ratio] [facility]) Body weight 232 [lb_av] 232 [lb_av] eCW3 ([facility]) Body height 68 [in_i] 68 [in_i] eCW3 ([facility]) Diastolic blood 74 mm[Hg] 74 mm[Hg] eCW3 ([facility]) Systolic blood 111 mm[Hg] 111 mm[Hg] eCW3 ([facility]) Body temperature 97.8 [degF] 97.8 [degF] eCW3 ( [facility]) Heart rate 20 /min 20 /min eCW3 ([facility]) Body mass index 35.27 kg/m2 35.27 kg/m2 eCW3 ([facility] (BMI) [Ratio] [facility]) Body weight 232 [lb_av] 232 [lb_av] eCW3 ([facility]) Body height 68 [in_i] 68 [in_i] eCW3 ([facility]) Diastolic blood 61 mm[Hg] 61 mm[Hg] eCW3 ([facility]) Systolic blood 90 mm[Hg] 90 mm[Hg] eCW3 ([facility]) Body temperature 98.2 [degF] 98.2 [degF] eCW3 ( [facility]) Heart rate 20 /min 20 /min eCW3 ([facility]) Body mass index 33.45 kg/m2 33.45 kg/m2 eCW3 ([facility] (BMI) [Ratio] [facility]) Body weight 220 [lb_av] 220 [lb_av] eCW3 ([facility]) Body height 68 [in_i] 68 [in_i] eCW3 ([facility]) Diastolic blood 67 mm[Hg] 67 mm[Hg] eCW3 ([facility]) Systolic blood 99 mm[Hg] 99 mm[Hg] eCW3 ([facility]) Body temperature 97.9 [degF] 97.9 [degF] eCW3 ( [facility]) Heart rate 20 /min 20 /min eCW3 ([facility]) Body mass index 33.45 kg/m2 33.45 kg/m2 eCW3 ([facility] (BMI) [Ratio] [facility]) Body weight 220 [lb_av] 220 [lb_av] eCW3 ([facility]) Body height 68 [in_i] 68 [in_i] eCW3 ([facility]) Diastolic blood 88 mm[Hg] 88 mm[Hg] eCW3 ([facility]) Systolic blood 138 mm[Hg] 138 mm[Hg] eCW3 ([facility]) Body temperature 98.2 [degF] 98.2 [degF] eCW3 ( [facility]) Heart rate 20 /min 20 /min eCW3 ([facility]) Body mass index 33.45 kg/m2 33.45 kg/m2 eCW3 ([facility] (BMI) [Ratio] [facility]) Body weight 220 [lb_av] 220 [lb_av] eCW3 ([facility]) Body height 68 [in_i] 68 [in_i] eCW3 ([facility]) Diastolic blood 74 mm[Hg] 74 mm[Hg] eCW3 ([facility]) Systolic blood 109 mm[Hg] 109 mm[Hg] eCW3 ([facility]) Body temperature 98.1 [degF] 98.1 [degF] eCW3 ( [facility]) Heart rate 20 /min 20 /min eCW3 ([facility]) Body mass index 33.14 kg/m2 33.14 kg/m2 eCW3 ([facility] (BMI) [Ratio] [facility]) Body weight 218 [lb_av] 218 [lb_av] eCW3 ([facility]) Body height 68 [in_i] 68 [in_i] eCW3 ([facility]) Diastolic blood 76 mm[Hg] 76 mm[Hg] eCW3 ([facility]) Systolic blood 108 mm[Hg] 108 mm[Hg] eCW3 ([facility]) Body temperature 97.5 [degF] 97.5 [degF] eCW3 ( [facility]) Heart rate 20 /min 20 /min eCW3 ([facility]) Body mass index 33.90 kg/m2 33.90 kg/m2 eCW3 ([facility] (BMI) [Ratio] [facility]) Body weight 223 [lb_av] 223 [lb_av] eCW3 ([facility]) Body height 68 [in_i] 68 [in_i] eCW3 ([facility]) Diastolic blood 66 mm[Hg] 66 mm[Hg] eCW2 ([facility]) Systolic blood 93 mm[Hg] 93 mm[Hg] eCW2 ([facility]) Body temperature 97.8 [degF] 97.8 [degF] eCW2 ( [facility]) Heart rate 20 /min 20 /min eCW2 ([facility]) Body mass index 33.30 kg/m2 33.30 kg/m2 eCW2 ([facility] (BMI) [Ratio] [facility]) Body weight 219 [lb_av] 219 [lb_av] [facility]CW[facility]) Body height 68 [in_us] 68 [in_us] eCW2 ([facility]) Patient Treatment Plan of Care Planned Activity Planned Date Details Description Data Source (s) Cyclobenzaprine 12/21/2019 eCW3 ([place] hydrochloride 10 MG Oral 12:00:00 AM [facility]) Tablet Sertraline 25 MG Oral 12/21/2019 eCW3 ( [place] Tablet 12:00:00 AM [facility]) Cyclobenzaprine 12/21/2019 eCW3 ([place] hydrochloride 10 MG Oral 12:00:00 AM [facility]) Tablet Sertraline 25 MG Oral 12/21/2019 eCW3 ( [place] Tablet 12:00:00 AM [facility]) [employer] - 09/29/2019 eCW3 ([place] 12:00:00 AM [facility]) [employer] - 09/29/2019 eCW3 ([place] 12:00:00 AM [facility]) [employer] - 09/29/2019 eCW3 ([place] 12:00:00 AM [facility]) [employer] - 09/29/2019 eCW3 ([place] 12:00:00 AM [facility]) [employer] - 09/29/2019 eCW3 ([place] 12:00:00 AM [facility]) COLLAGENASE 0.25 UNT/MG 09/21/2019 eCW3 ([place] Topical Ointment [Santyl] 12:00:00 AM [facility]) Sulfamethoxazole 800 MG / 09/13/2019 eC W3 ([place] Trimethoprim 160 MG Oral 12:00:00 AM [facility]) Tablet [Bactrim] Albuterol 0.83 MG/ML 09/13/2019 eCW3 ([place] Inhalant Solution 12:00:00 AM [facility]) Albuterol 0.83 MG/ML 09/13/2019 eCW3 ([place] Inhalant Solution 12:00:00 AM [facility]) GAUZE NON-STICK 4 X 4 09/13/2019 eCW3 ( [place] 12:00:00 AM EDT Health Care) Bacitracin 0.5 UNT/MG 09/13/2019 eCW3 ( [place] Topical Ointment 12:00:00 AM EDT Health C are) GAUZE NON-STICK 4 X 4 09/13/2019 eCW3 ( [place] 12:00:00 AM [facility] Health Care) Prednisone 10 MG Oral 09/13/2019 eCW3 ( [place] Tablet 12:00:00 AM [facility] Health Care) Bacitracin 0.5 UNT/MG 09/13/2019 eCW3 ( [place] Topical Ointment 12:00:00 AM ED Health C are) Sulfamethoxazole 800 MG / 09/13/2019 eC W3 ([place] Trimethoprim 160 MG Oral 12:00:00 AM [facility] Health Care) Tablet [Bactrim] Prednisone 50 MG Oral 08/06/2019 eCW3 ( [place] Tablet 12:00:00 AM [facility] Health Care) Wheelchair - 08/06/2019 eCW3 ([place] 12:00:00 AM [facility] Health Care) Prednisone 50 MG Oral 08/06/2019 eCW3 ( [place] Tablet 12:00:00 AM T Health Care) Wheelchair - 08/06/2019 eCW3 ([place] 12:00:00 AM [facility] Health Care) Prednisone 50 MG Oral 08/06/2019 eCW3 ( [place] Tablet 12:00:00 AM [facility] Health Care) Wheelchair - 08/06/2019 eCW3 ([place] 12:00:00 AM [facility] Health Care) Prednisone 50 MG Oral 08/06/2019 eCW3 ( [place] Tablet 12:00:00 AM [facility] Health Care) Wheelchair - 08/06/2019 eCW3 ([place] 12:00:00 AM T Health Care) Prednisone 50 MG Oral 08/06/2019 eCW3 ( [place] Tablet 12:00:00 AM T Health Care) Wheelchair - 08/06/2019 eCW3 ([place] 12:00:00 AM [facility] Health Care) Prednisone 50 MG Oral 08/06/2019 eCW3 ( [place] Tablet 12:00:00 AM [facility] Health Care) Wheelchair - 08/06/2019 eCW3 ([place] 12:00:00 AM [facility]) Prednisone 50 MG Oral 08/06/2019 eCW3 ( [place] Tablet 12:00:00 AM [facility] Health Care) Wheelchair - 08/06/2019 eCW3 ([place] 12:00:00 AM [facility]) Prednisone 50 MG Oral 08/06/2019 eCW3 ( [place] Tablet 12:00:00 AM [facility] Health Care) Prednisone 50 MG Oral 08/06/2019 eCW3 ( [place] Tablet 12:00:00 AM [facility] Health Care) Wheelchair - 08/06/2019 eCW3 ([place] 12:00:00 AM [facility]) Prednisone 50 MG Oral 08/06/2019 eCW3 ( [place] Tablet 12:00:00 AM [facility]) Wheelchair - 08/06/2019 eCW3 ([place] 12:00:00 AM [facility]) Wheelchair - 08/06/2019 eCW3 ([place] 12:00:00 AM [facility]) benzonatate 100 MG Oral 05/25/2019 eCW3 ([place] Capsule 12:00:00 AM [facility]) Clotrimazole 10 MG/ML 05/25/2019 eCW3 ( [place] Topical Cream 12:00:00 AM [facility] ) Basaglar KwikPen 100 02/21/2019 eCW3 ([place] UNIT/ML 12:00:00 AM [facility]) Acetaminophen 500 MG Oral 10/06/2018 eC W3 ([place] Tablet 12:00:00 AM [facility]) Diazepam 5 MG Oral Tablet 01/19/2018 eC W2 ([place] 12:00:00 AM [facility]) Ibuprofen 600 MG Oral 12/30/2017 eCW3 ( [place] Tablet 12:00:00 AM [facility]) Ibuprofen 600 MG Oral 12/30/2017 eCW3 ( [place] Tablet 12:00:00 AM [facility]) Ibuprofen 600 MG Oral 12/30/2017 eCW3 ( [place] Tablet 12:00:00 AM [facility]) Metformin hydrochloride 500 12/16/2017 eCW3 ([place] MG Oral Tablet 12:00:00 AM [facility] Health [facility] e) Metformin hydrochloride 500 12/16/2017 eCW3 ([place] MG Oral Tablet 12:00:00 AM [facility] e) ALBUTEROL SULFATE 0.083% 07/08/2016 eCW 3 ([place] 2.5 mg/3 ml 12:00:00 AM [facility]) Glucose Test Strips 07/08/2016 eCW3 ([place] Compatiable with Patients 12:00:00 AM [facility]) Machine Glucose Test Strips 07/08/2016 eCW3 ([place] Compatiable with Patients 12:00:00 AM [facility]) Machine Glucose Test Strips 07/08/2016 eCW3 ([place] Compatiable with Patients 12:00:00 AM [facility]) Machine ALBUTEROL SULFATE 0.083% 07/08/2016 eCW 3 ([place] 2.5 mg/3 ml 12:00:00 AM [facility]) 3 ML Insulin, Aspart, Human 09/11/2014 eCW3 ([place] 100 UNT/ML Pen Injector 12:00:00 AM [facility]) [NovoLog] Digoxin 0.25 MG Oral Tablet 09/11/2014 eCW3 ([place] 12:00:00 AM [facility]) Digoxin 0.25 MG Oral Tablet 09/11/2014 eCW3 ([place] 12:00:00 AM [facility]) Furosemide 40 MG Oral 08/07/2014 eCW3 ( [place] Tablet 12:00:00 AM [facility]) Furosemide 40 MG Oral 08/07/2014 eCW3 ( [place] Tablet 12:00:00 AM [facility]) Furosemide 40 MG Oral 08/07/2014 eCW3 ( [place] Tablet 12:00:00 AM [facility]) Furosemide 40 MG Oral 08/07/2014 eCW3 ( [place] Tablet 12:00:00 AM [facility]) Furosemide 40 MG Oral 08/07/2014 eCW3 ( [place] Tablet 12:00:00 AM [facility]) Furosemide 40 MG Oral 08/07/2014 eCW3 ( [place] Tablet 12:00:00 AM [facility]) Simvastatin 20 MG Oral 10/18/2013 eCW3 ([place] Tablet 12:00:00 AM [facility]) 3 ML liraglutide 6 MG/ML eCW 3 ([employer] Pen Injector [Victoza] [facility]) 3 ML liraglutide 6 MG/ML eCW 3 ([employer] Pen Injector [Victoza] [facility]) 3 ML liraglutide 6 MG/ML eCW 3 ([employer] Pen Injector [Victoza] [facility]) 3 ML liraglutide 6 MG/ML eCW 3 ([employer] Pen Injector [Victo] [facility]) gabapentin 300 MG Oral eCW3 ([employer] Capsule [facility]) Losartan Potassium 50 MG eCW 3 ([employer] Oral Tablet [facility]) carvedilol 3.125 MG Oral eCW 3 ([employer] Tablet [facility]) 60 ACTUAT Fluticasone eCW3 ( [employer] propionate 0.5 MG/ACTUAT / H [facility]) salmeterol 0.05 MG/ACTUAT Dry Powder Inhaler [Advair] Spironolactone 25 MG Oral eC W3 ([employer] [facility]) rivaroxaban 20 MG Oral eCW3 ([employer] Tablet [Xarelto] [facility] ) clopidogrel 75 MG Oral eCW3 ([employer] [facility]) montelukast 10 MG Oral eCW3 ([employer] Tablet [Singulair] Health [facility]) pantoprazole 20 MG Delayed e CW3 ([employer] Release Oral Tablet Health C are) Omeprazole 20 MG Delayed eCW 3 ([employer] Release Oral Capsule [facility])
--- NOTE | 2020-01-07 22:18 | PDOC ---
Documentation entered by Dorcas Nguyen SCRIBE, acting as scribe for Sahra Broussard MD. Sahra Broussard MD: This documentation has been prepared by the Wendy grullon Brenda, SCRIBE, under my direction and personally reviewed by me in its entirety. I confirm that the documentation accurately reflects all work, treatment, procedures, and medical decision making performed by me. Attending Attestation - Resident Resident Name: Fili Mora - ED Attending Attestation I have performed the following: I have examined & evaluated the patient, The case was reviewed & discussed with the resident, I agree w/resident's findings & plan, Exceptions are as noted - HPI HPI: 01/07/20 22:03 The patient is a 54 year old female with a significant PMH of Afib w/ RVR (on xarelto), IDDM, HTN, HLD, asthma, cocaine abuse, ground glass opacities of lungs, CHF (Ef 21-30%) and chronic lower leg wounds/venous edema who presents to the ED for evaluation of 3 days of rectal bleeding. Patient states she is currently having an anxiety attack. The patient denies nausea, vomiting, diarrhea and constipation. Denies fever, chills, BROCK. Allergies: NKA Past surgical hx: Left knee replacement and cholystectomy Social Hx: Cocaine use, beers on weekend and cigarette use since age of 9. 01/07/20 23:58 - Physicial Exam PE: 01/07/20 22:08 GENERAL: (+) Anxious appearing Dishelved ,well-nourished midly distressed female HEENT: Normocephalic, atraumatic. PERRL, EOM intact. CARDIOVASCULAR: Normal S1, S2. Regular rate and rhythm. PULMONARY: Clear to auscultation bilaterally. ABDOMEN: (+) Protuberant. Soft, non-distended, non-tender. RECTAL: (+) Tarry dark stools and melena. EXTREMITIES: Normal ROM in all four extremities. No gross deformities. SKIN: Warm, dry. No rash NEUROLOGICAL: Alert and conversant 01/07/20 22:16 - Medical Decision Making 01/07/20 22:26 pt 's hemoglobin =4.9 and hct=15 imp GI bleed,labs pending,ekc,cxr , GI consult and admission 01/08/20 00:00 pt requires blood transfusion 01/08/20 00:01 01/08/20 00:32 troponin is negative 01/08/20 01:39 ekg is afib @ 96 bpm Discharge - Discharge Information Problems reviewed: Yes Clinical Impression/Diagnosis: GI bleed Condition: Guarded Disposition: TRANSFER ACUTE CARE/OTHER HOSP - Follow up/Referral - Patient Discharge Instructions - Post Discharge Activity
[2020-01-07] MEDS ORDERED: PANTOPRAZOLE SODIUM 40 MG VIAL IVPUSH ONE (22:25)
--- NOTE | 2020-01-07 22:29 | PDOC ---
History of Present Illness - General Chief Complaint: Shortness of Breath Stated Complaint: SOB Time Seen by Provider: 01/07/20 21:08 - History of Present Illness Initial Comments: 01/07/20 22:23 54yo F very poor historian w/ questionable capacity w/ PMHx untreated ulcers and prior endoscopy and hemorrhoids presents w/ rectal bleeding x 3days. Endorses clots and dark tarry stools. Poor historian. Denies fevers, trauma, n/v/d, foreign body insertion, prior episodes of tarry stools. No CP, No SOB, No cough. No lightheadedness, no dizziness. 01/08/20 00:01 01/09/20 20:38 Past History - Medical History Allergies/Adverse Reactions: Allergies Allergy/AdvReac Type Severity Reaction Status Date / Time amoxicillin trihydrate Allergy Intermediate Swelling Verified 12/04/19 11:47 [From Augmentin] potassium clavulanate Allergy Intermediate Swelling Verified 12/04/19 11:47 [From Augmentin] amoxicillin Allergy Verified 12/04/19 11:47 Home Medications: Ambulatory Orders Loratadine 10 mg PO DAILY PRN 06/30/19 Cholecalciferol (Vitamin D3) [Vitamin D3 -] 50,000 unit PO WEEKLY 09/16/19 Fluticasone Propion/Salmeterol [Wixela 500-50 Inhub] 1 inhaler IN BID 09/16/19 Insulin Glargine,Hum.rec.anlog [Basaglar Kwikpen U-100] 38 unit SQ HS 09/16/19 Montelukast Sodium [Singulair] 10 mg PO HS #30 tablet 10/17/19 Liraglutide [Victoza -] 6 mg SQ WEEKLY 11/08/19 Albuterol Sulfate Inhaler - [Ventolin HFA Inhaler -] 2 puff IH Q4H PRN inhaler 12/06/19 Digoxin [Lanoxin -] 0.125 mg PO DAILY #30 tablet 12/06/19 Furosemide [Lasix -] 60 mg PO BID@0600,1400 #14 tablet 12/06/19 Metoprolol Succinate [Toprol Xl] 25 mg PO BID #14 tab.sr 12/06/19 Rivaroxaban [Xarelto -] 20 mg PO DAILY #30 tablet 12/06/19 Sacubitril/Valsartan [Entresto 24 mg-26 mg Tablet] 1 tab PO BID #60 tablet 12/06/19 Clopidogrel Bisulfate [Clopidogrel] 75 mg PO DAILY 01/08/20 Gabapentin 300 mg PO TID 01/08/20 Insulin Aspart [Novolog] 18 unit SQ 1200,199901/08/20 Pantoprazole Sodium [Protonix -] 20 mg PO DAILY 01/08/20 Simvastatin 20 mg PO DAILY 01/08/20 Spironolactone [Aldactone -] 25 mg PO DAILY 01/08/20 Asthma: Yes Cancer: No Cardiac Disorders: Yes (reduced ejection fraction of 23%, CO 2018) CVA: No COPD: Yes CHF: Yes (with pulmonary HTN) Diabetes: Yes Disorders: No HTN: Yes Hypercholesterolemia: Yes Liver Disease: No Psychiatric Problems: Yes (bipolar) Seizures: No Thyroid Disease: No - Surgical History Cardiac Surgery: No Cholecystectomy: Yes Neurologic Surgery: No Orthopedic Surgery: Yes (left knee replacemet - 1996) - Reproductive History Is Patient Now?: No - Immunization History Immunization Up to Date: No - Psycho-Social/Smoking History Smoking Status: No Smoking History: Current some day smoker Have you smoked in the past 12 months: Yes Number of Cigarettes Smoked Daily: 1 If you are a former smoker, when did you quit?: 2019 Information on smoking cessation initiated: Yes 'Breaking Loose' booklet given: 11/06/19 - Substance Abuse Hx (Audit-C & DAST Scrn) How often the patient has a drink containing alcohol: Never Score: In Men: 4 or > Positive; In Women: 3 or > Positive: 0 Screen Result (Pos requires Nsg. Audit-10AR): Negative Review of Systems - Review of Systems Able to Perform ROS?: Yes Is the patient limited Green[place]ic proficient: No Constitutional: No: Chills, Diaphoresis, Fever, Loss of Appetite, Malaise, Night Sweats, Weakness HEENTM: No: Nose Bleeding Respiratory: No: Cough, SOB with Exertion, Hemoptysis Cardiac (ROS): No: Chest Pain, Lightheadedness ABD/GI: Yes: Blood Streaked Bowels, Rectal Bleeding, Tarry Stools. No: Abdom inal Distended, Abd. Pain w/ defecation, Constipated, Diarrhea, Difficulty Swallowing, Nausea, Poor Appetite, Poor Fluid Intake, Vomiting : No: Burning, Dysuria, Frequency, Hematuria Musculoskeletal: No: Back Pain, Muscle Weakness Integumentary: No: Erythema, Rash Neurological: No: Headache, Numbness Psychiatric: Yes: Anxiety Hematologic/Lymphatic: Yes: Blood Clots. No: Anemia, Easy Bleeding, Easy Bruising, Bleeding Diathesis All Other Systems: Reviewed and Negative *Physical Exam - Vital Signs Last Vital Signs Temp Pulse Resp BP Pulse Ox 97.2 F L 94 H 20 110/58 L 100 01/07/20 21:12 01/07/20 21:12 01/07/20 21:12 01/07/20 21:12 01/07/20 21:12 - Physical Exam General Appearance: Yes: Nourished, Disheveled, Moderate Distress (worried about the rectal bleeding ) HEENT: positive: Normal ENT Inspection Neck: positive: Trachea midline. negative: Tender, Stridor Respiratory/Chest: positive: Lungs Clear, Normal Breath Sounds. negative: Chest Tender, Respiratory Distress, Accessory Muscle Use Cardiovascular: positive: Regular Rate, Irregularly Irregular Female Pelvic Exam: positive: normal external exam Gastrointestinal/Abdominal: positive: Normal Bowel Sounds. negative: Rebound Rectal Exam: positive: normal rectal tone, melena, heme positive stool. negative: heme negative stool Musculoskeletal: positive: Normal Inspection. negative: CVA Tenderness Extremity: positive: Normal Capillary Refill, Normal Inspection Integumentary: positive: Normal Color, Dry, Warm Neurologic: positive: Fully Oriented, Alert, Normal Response Heart Score/ECG Review - ECG Intrepretation Rhythm: Irregularly Irregular (AF) - QRS Poor R Wave Progression: No - ECG Impressions Normal ECG: No Comment:: 01/07/20 23:52 AFib ED Treatment Course - LABORATORY CBC & Chemistry Diagram: 01/08/20 18:45 01/08/20 18:45 Medical Decision Making - Medical Decision Making 01/09/20 20:39 54 yo F w/ rectal bleeding. FOBT positive + low H/H -> admit for GI bleed. Hgb <7 -> indicated transfusion PRBC Discharge - Discharge Information Problems reviewed: Yes Clinical Impression/Diagnosis: Cocaine abuse GI bleed Qualifiers: GI bleed type/associated pathology: melena Qualified Code(s): K92.1 - Melena Anemia Qualifiers: Anemia type: other cause Other causes of anemia: acute posthemorrhagic Qualified Code(s): D62 - Acute posthemorrhagic anemia Condition: Guarded Disposition: TRANSFER ACUTE CARE/OTHER HOSP - Follow up/Referral - Patient Discharge Instructions - Post Discharge Activity
[2020-01-07] MEDS ORDERED: PANTOPRAZOLE SODIUM 40 MG VIAL ONE (22:30)
[2020-01-07 23:47] LABS: BASO % 2.2 % (0-2.0); EOS % 0.9 % (0-4.5); HEMATOCRIT 15.5 % (32.4-45.2); LYMPH % 21.6 % (8-40); MCH 25.5 pg (25.7-33.7); MCHC 31.6 g/dl (32.0-36.0); MEAN CELL VOLUME 80.6 fl (80-96); MEAN PLT VOLUME 8.3 fl (7.5-11.1); NEUT % 64.3 % (42.8-82.8); RBC 1.92 M/mm3 (3.60-5.2); RDW 21.1 % (11.6-15.6); WHITE BLOOD COUNT 6.8 K/mm3 (4.0-10.0)
[2020-01-07 23:55] LABS: HEMOGLOBIN 4.9 GM/dL (10.7-15.3); PLATELET COUNT 222 K/MM3 (134-434)
--- NOTE | 2020-01-07 23:55 | PDOC ---
*Physical Exam - Vital Signs Last Vital Signs Temp Pulse Resp BP Pulse Ox 97.2 F L 94 H 20 110/58 L 100 01/07/20 21:12 01/07/20 21:12 01/07/20 21:12 01/07/20 21:12 01/07/20 21:12 ED Treatment Course - LABORATORY CBC & Chemistry Diagram: 01/07/20 23:40 01/07/20 23:40 - Medications Given in the ED: ED Medications Discontinued Medications Generic Name Dose Route Start Last Admin Trade Name Santa PRN Reason Stop Dose Admin Pantoprazole Sodium 40 mg 01/07/20 22:25 01/07/20 23:40 Protonix Iv IVPUSH 01/07/20 22:26 40 mg ONCE ONE Administration Medical Decision Making - Medical Decision Making 01/07/20 23:[address] Mora h/o PUD, hemorrhoids no f/u 3 days black tarry stool critically low Hgb; Dr. Mora has obtained consent; 2U PRBC ordered [] labs [] admit 01/08/20 01:40 admitted EKG 23:08 HR 96 Afib Discharge - Discharge Information Problems reviewed: Yes Clinical Impression/Diagnosis: GI bleed Condition: Guarded - Admission Yes - Follow up/Referral - Patient Discharge Instructions - Post Discharge Activity
[2020-01-07 23:58] LABS: INR 2.06 (0.83-1.09); PROTHROMBIN TIME (PATIENT) 24.5 SEC (9.7-13.0)
[2020-01-08 00:28] LABS: ALBUMIN 2.5 g/dl (3.4-5.0); BILIRUBIN,TOTAL 0.7 mg/dL (0.2-1); BLOOD UREA NITROGEN 35.2 mg/dL (7-18); CALCIUM 8.5 mg/dL (8.5-10.1); N-TERMINAL BNP 2199.2 pg/ml (5-125); POTASSIUM 4.9 mmol/L (3.5-5.1); TOT PROT 5.8 g/dl (6.4-8.2)
--- NOTE | 2020-01-08 01:29 | HP ---
CHIEF COMPLAINT: PCP: HISTORY OF PRESENT ILLNESS: 54F w/ pmh of HFrEF, AFib (on Xarelto), IDDM, hypertension, hyperlipidemia, asthma, chronic LLE wound and cocaine use disorder, NSTEMI(2019?) presented to [facility] for critically low Hgb of 4.2 and rectal bleeding x 3days. Endorses clots and dark tarry stools. The patient reports waking up from a nap today and having a panic attack for which she had taken a taxi to the ED. On exam, the patient is extremely anxious and a poor historian. The patient reports having 3 days of dark black bowel movements for which she had taken x2 peptobismol tablets and tums. The patient reports that this had helped her for one day. The patient denies any abdominal pain, shortness of breath, or chest pain. The patient denies any experience of acid reflux chest pain on palpation or dyspnea. When asked if the patient is capable of walking, the patient reports that she is only able to traverse a few steps before feeling as if her legs would give out. The patient denied abdominal exam due to not wanting to lay down. ER course was notable for: (1) Hgb 4.9 (2) bnp 2199 (3) Recent Travel: denies PAST MEDICAL HISTORY: PAST SURGICAL HISTORY: cholecystectomy many years ago Social History: Smoking: smoking for 45 years 5-10 cig a day Alcohol: denies Drugs: denies Allergies amoxicillin trihydrate [From Augmentin] Allergy (Intermediate, Verified 12/04/19 11:47) Swelling potassium clavulanate [From Augmentin] Allergy (Intermediate, Verified 12/04/19 11:47) Swelling amoxicillin Allergy (Verified 12/04/19 11:47) HOME MEDICATIONS: Home Medications Medication Instructions Recorded Loratadine 10 mg PO DAILY PRN 06/30/19 Cholecalciferol (Vitamin D3) 50,000 unit PO WEEKLY 09/16/19 [Vitamin D3 -] Fluticasone Propion/Salmeterol 1 inhaler IN BID 09/16/19 [Wixela 500-50 Inhub] Insulin Glargine,Hum.rec.anlog 38 unit SQ DAILY 09/16/19 [Basaglar Kwikpen U-100] Collagenase Clostridium Hist. 1 applic TP DAILY #1 tube 10/17/19 [Santyl -] Docusate Sodium [Colace -] 100 mg PO TID #90 capsule 10/17/19 Montelukast Sodium [Singulair] 10 mg PO HS #30 tablet 10/17/19 Pantoprazole Sodium [Protonix -] 40 mg PO DAILY #30 tab 10/17/19 Liraglutide [Victoza -] 1.2 mg SQ DAILY 11/08/19 Acetaminophen [Tylenol .Regular 650 mg PO Q6H PRN tablet 12/06/19 Strength -] Albuterol Sulfate Inhaler - 2 puff IH Q4H PRN inhaler 12/06/19 [Ventolin HFA Inhaler -] Digoxin [Lanoxin -] 0.125 mg PO DAILY #30 tablet 12/06/19 Doxycycline Hyclate 100 mg PO BID #10 tablet MDD 200 mg 12/06/19 Furosemide [Lasix -] 60 mg PO BID@0600,1400 #14 tablet 12/06/19 Metoprolol Succinate [Toprol Xl] 25 mg PO BID #14 tab.sr 12/06/19 Rivaroxaban [Xarelto -] 20 mg PO DAILY #30 tablet 12/06/19 Sacubitril/Valsartan [Entresto 24 1 tab PO BID #60 tablet 12/06/19 mg-26 mg Tablet] Spironolactone [Aldactone -] 25 mg PO BID #60 tablet 12/06/19 levoFLOXacin [Levaquin] 500 mg PO DAILY #5 tablet MDD 500mg 12/06/19 REVIEW OF SYSTEMS CONSTITUTIONAL: Absent: fever, chills, diaphoresis, generalized weakness, malaise, loss of appetite, weight change CARDIOVASCULAR: Absent: chest pain, syncope, palpitations, irregular heart rate, lightheadedness, peripheral edema RESPIRATORY: Absent: cough, shortness of breath, dyspnea with exertion, orthopnea, wheezing, stridor, hemoptysis GASTROINTESTINAL: Hematochezia Absent: abdominal pain, abdominal distension, nausea, vomiting, GENITOURINARY: Absent: dysuria, frequency, urgency, hesitancy, hematuria, flank pain, genital pain PHYSICAL EXAMINATION Vital Signs - 24 hr 01/07/20 01/08/20 21:12 01:15 Temperature 97.2 F L Pulse Rate 94 H Pulse Rate [ 98 H Left] Respiratory 20 16 Rate Blood Pressure 110/58 L Blood Pressure 96/62 [Left Arm] O2 Sat by Pulse 100 100 Oximetry (%) GENERAL: extremely anxious LUNGS: Breath sounds equal, clear to auscultation bilaterally. No wheezes, and no crackles. No accessory muscle use. HEART: Regular rate and rhythm, normal S1 and S2 without murmur, rub or gallop. ABDOMEN: DENIED ABDOMINAL EXAM PSYCHIATRIC: Cooperative. Good eye contact. Appropriate mood and affect. Laboratory Results - last 24 hr 01/07/20 01/07/20 01/07/20 23:40 23:40 23:40 WBC 6.8 RBC 1.92 L Hgb 4.9 L* Hct 15.5 L D MCV 80.6 MCH 25.5 L MCHC 31.6 L RDW 21.1 H Plt Count 222 D MPV 8.3 Absolute Neuts (auto) 4.4 Neutrophils % 64.3 Lymphocytes % 21.6 D Monocytes % 11.0 H Eosinophils % 0.9 Basophils % 2.2 H Nucleated RBC % 0 PT with INR 24.50 H INR 2.06 H Sodium 136 Potassium 4.9 Chloride 102 Carbon Dioxide 25 Anion Gap 9 BUN 35.2 H Creatinine 1.0 Est GFR (CKD-EPI)AfAm 73.97 Est GFR (CKD-EPI)NonAf 63.82 Random Glucose 304 H Calcium 8.5 Total Bilirubin 0.7 AST 18 ALT 31 Alkaline Phosphatase 151 H Creatine Kinase 78 Troponin I 0.02 B-Natriuretic Peptide 2199.2 H Total Protein 5.8 L Albumin 2.5 L Blood Type Antibody Screen 01/07/20 23:40 WBC RBC Hgb Hct MCV MCH MCHC RDW Plt Count MPV Absolute Neuts (auto) Neutrophils % Lymphocytes % Monocytes % Eosinophils % Basophils % Nucleated RBC % PT with INR INR Sodium Potassium Chloride Carbon Dioxide Anion Gap BUN Creatinine Est GFR (CKD-EPI)AfAm Est GFR (CKD-EPI)NonAf Random Glucose Calcium Total Bilirubin AST ALT Alkaline Phosphatase Creatine Kinase Troponin I B-Natriuretic Peptide Total Protein Albumin Blood Type AB POSITIVE Antibody Screen Negative ASSESSMENT/PLAN: 54F w/ pmh of HFrEF, AFib (on Xarelto), IDDM, hypertension, hyperlipidemia, asthma, chronic LLE wound and cocaine use disorder, NSTEMI(2019?) presented to [facility] for rectal bleeding x 3days W clots and dark tarry stools. #Anemia secondary to LGI bleed 1 unit of PRBC given in ED Will give additional unit of prbc follow up H/H protonix 40mg IV BID Admit to telemetry #pre-renal azotemia secondary to hypovolemia BUN:Cr ratio > 20:1 2 units of blood manage volume post blood transfusion continue patient on home entresto #chronic Afib EKG: Afib w/RVR continuing patient on home metoprolol succinate 25mg BID #chronic HFrEF Echo(09/18/2019): LVEF 30-35%, mildly dilated LV, mod global hypokinesis BNP 2199 monitor I/O hold home lasix on the basis of hypovolemia digoxin level ordered #uncontrolled DM Random Glucose of 304 HbA1c(10/15/19): 10.2 repeat A1c order cw home Lantus 38U AM, 30U PM SSi #panic attack patient will be given 1mg of ativan FEN NPO DVT PPX SCDs Family Medical History Family History: As Documented Visit type - Emergency Visit Emergency Visit: Yes ED Registration Date: 01/08/20 Care time: The patient presented to the Emergency Department on the above date and was hospitalized for further evaluation of their emergent condition. - New Patient This patient is new to me today: Yes Date on this admission: 01/08/20 - Critical Care Critical Care patient: No ATTENDING PHYSICIAN STATEMENT I saw and evaluated the patient. I reviewed the resident's note and discussed the case with the resident. I agree with the resident's findings and plan as documented. SUBJECTIVE: OBJECTIVE: ASSESSMENT AND PLAN:
[2020-01-08] MEDS ORDERED: ATROPINE SULFATE 1 MG/10 ML DISP.SYRIN IVPUSH ONE (01:45)
[2020-01-08] MEDS ORDERED: LORazepam 2 MG/ML SDV VIAL ONE ×2 (01:46→04:21)
--- OUTSIDE RECORDS SUMMARY | 2020-01-08 02:13 | XMS ---
:1965 Author Organization [facility] Care Team Providers Name Role Phone MELISSA [...] is protected by Article 27-F of the [facility] Public Health law. If you continue you may haveaccess to information: Regarding HIV / AIDS; Provided by facilities licensed or operated by the [facility] Office of Mental Health; or Provided by the [facility] Office for People With Developmental Disabilities. If such information is present, then the following [facility] mandated warning applies: This information has been [...] law may result in a fine or fdc sentence or both. A general authorization for the release of medical or other information is NOT sufficient authorization for further disclosure. Allergies and Adverse Reactions Type Description Substance Reaction Status Data Source(s ) Drug allergy Augmentin amoxicillin / throat closing, Active eCW3 ([place] clavulanate [facility]) No Information No Information No Information eC W2 ([facility]) No Information No Information No Information eC W2 ([facility]) No Information No Information No Information eC W2 ([facility]) No Information No Information No Information eC W2 ([facility]) No Information No Information No Information eC W2 ([facility]) No Information No Information No Information eC W2 ([facility]) No Information No Information No Information eC W2 ([facility]) No Information No Information No Information eC W2 ([facility]) Drug allergy Augmentin Amoxicillin / throat closing, Active eCW3 ([place] Clavulan[facility]) Encounters Encounter Providers Location Date Indications Data Source(s ) Emergency Attender: RIKI Mccloud 12/12/2019 Holly Farfan: STAFF ED 04:44:00 PM [facility]T [facility] STAFF - 12/12/2019 PHYSICIANAdmitter: 10:17:00 PM EDT RIKI Trammell Patient discharged. Outpatient Attender: [facility] 10/24/2019 01:22:40 PM [facility] ([facility]) Patient admitted. Outpatient Attender: [facility] 10/24/2019 01:22:21 PM [facility] ([facility]) Patient admitted. Outpatient Attender: [facility] 10/24/2019 01:15:44 PM [facility] ([facility]) Patient admitted. Outpatient Attender: [facility] 07/06/2019 05:28:15 AM [facility] ([facility]) Patient admitted. Outpatient Attender: [id number] 03/03/2019 01:51:55 PM [facility] ([facility] EST [facility]) Patient admitted. (NBillable) [place] 02/07/2019 eCW3 ([facility]Care Primary Care 12:00:00 AM EDT [facility] A28 - 02/07/2019 Care) 12:00:00 AM EDT Emergency Attender: [id number] 02/02/2019 [facility] 05:19:00 AM [facility] Patient discharged. (NBillable) [facility] 02/01/2019 eCW3 ([facility] A28 12:00:00 AM EDT - [facility] 02/01/2019 Care) 12:00:00 AM EDT (NBillable) [facility] 01/18/2019 eCW3 ([facility] A28 12:00:00 AM EDT - [facility] 01/18/2019 Care) 12:00:00 AM EDT (NBillable) [facility] 01/15/2019 eCW3 ([facility] A28 12:00:00 AM EDT - [facility] 01/15/2019 Care) 12:00:00 AM EDT Outpatient [facility] 12/29/2018 eCW3 [facility] 12:00:00 AM EDT [facility] 12/29/2018 Care) 12:00:00 AM EDT (NBillable) [facility] 12/26/2018 eCW3 ([facility] A28 12:00:00 AM EDT - [facility] 12/26/2018 Care) 12:00:00 AM EDT Outpatient 12/22/2018 [facility] 12:17:08 PM [facility]) Patient admitted. (NBillable) [facility] 11/23/2018 eCW3 ([facility] A28 12:00:00 AM EDT - [facility] 11/23/2018 Care) 12:00:00 AM EDT (NBillable) [facility] 11/10/2018 eCW3 ([facility] A28 12:00:00 AM EDT - [facility] 11/10/2018 Care) 12:00:00 AM EDT Outpatient [facility] 11/06/2018 eCW3 ([facility] 12:00:00 AM ED[facility]2018 Care) 12:00:00 AM EDT (NBillable) [facility] 11/06/2018 eCW3 ([facility] A28 12:00:00 AM EDT - [facility] 11/06/2018 Care) 12:00:00 AM EDT Outpatient [facility] 11/02/2018 eCW3 ([facility] 12:00:00 AM EDT - [place] [facility] 11/02/2018 Care) 12:00:00 AM EDT (NBillable) [facility] 10/26/2018 eCW3 ([facility]28 12:00:00 AM EDT - [facility] 10/26/2018 Care) 12:00:00 AM EDT (NBillable) [facility] 10/17/2018 eCW3 ([facility] A28 12:00:00 AM EDT - [facility] 10/17/2018 Care) 12:00:00 AM EDT (NBillable) [facility] 10/13/2018 eCW3 ([facility] 12:00:00 AM EDT - [facility] 10/13/2018 Care) 12:00:00 AM EDT (NBillable) [facility] 10/10/2018 eCW3 ([facility] 12:00:00 AM EDT - [facility] 10/10/2018 Care) 12:00:00 AM EDT Outpatient [facility] 10/06/2018 eCW3 ([facility] 12:00:00 AM EDT - [facility] 10/06/2018 Care) 12:00:00 AM EDT (NBillable) [facility] 10/06/2018 eCW3 ([facility] 12:00:00 AM EDT - [place] 10/06/2018 Care) 12:00:00 AM EDT (NBillable) [facility] 10/05/2018 eCW3 ([facility] 12:00:00 AM EDT - [facility] 10/05/2018 Care) 12:00:00 AM EDT Outpatient [facility] 09/25/2018 eCW3 ([facility] 12:00:00 AM EDT - [facility] 09/25/2018 Care) 12:00:00 AM EDT (NBillable) [facility] 09/25/2018 eCW3 ([facility] A28 12:00:00 AM EDT - [facility] 09/25/2018 Care) 12:00:00 AM EDT Outpatient [facility] 09/21/2018 eCW3 ([facility] 12:00:00 AM EDT - [facility] 09/21/2018 Care) 12:00:00 AM EDT (NBillable) [facility] 09/21/2018 eCW3 ([facility] A28 12:00:00 AM EDT - [facility] 09/21/2018 Care) 12:00:00 AM EDT (NBillable) [facility] 09/18/2018 eCW3 ([facility] 12:00:00 AM EDT - [facility] 09/18/2018 Care) 12:00:00 AM EDT (NBillable) [facility] 09/04/2018 eCW3 ([facility] 12:00:00 AM EDT - [facility] 09/04/2018 Care) 12:00:00 AM EDT Outpatient [facility] 09/01/2018 eCW3 ([facility] 12:00:00 AM EDT - [facility] 09/01/2018 Care) 12:00:00 AM EDT (NBillable) [facility] 08/21/2018 eCW3 ([facility] A28 12:00:00 AM EDT - [facility] 08/21/2018 Care) 12:00:00 AM EDT Outpatient [facility] 08/14/2018 eCW3 ([facility] 12:00:00 AM EDT - [facility] 08/14/2018 Care) 12:00:00 AM EDT (NBillable) [facility] 08/14/2018 eCW3 ([facility] A[facility] 12:00:00 AM EDT - [facility] 08/14/2018 Care) 12:00:00 AM EDT (NBillable) [facility] 07/25/2018 eCW3 ([facility] A[facility] 12:00:00 AM EDT - [facility] 07/25/2018 Care) 12:00:00 AM EDT (NBillable) [facility] 06/14/2018 eCW3 ([facility] A[facility] 12:00:00 AM EST - [facility] 06/14/2018 Care) 12:00:00 AM EST (NBillable) [facility] 06/09/2018 eCW3 ([facility] A[facility] 12:00:00 AM EST - [facility] 06/09/2018 Care) 12:00:00 AM EST (NBillable) [facility] 06/01/2018 eCW3 ([facility] A28 12:00:00 AM EST - [facility] 06/01/2018 Care) 12:00:00 AM EST [facility] 05/01/2018 eCW2 ([facility] 12:00:00 AM EST [facility]) [facility] 04/24/2018 eCW2 ([facility] 12:00:00 AM EST [facility] Care) [facility] 04/21/2018 eCW2 ([facility] 12:00:00 AM EST [facility] Care) [facility] 04/19/2018 eCW2 ([facility] 12[facility]00:00 AM EST [facility]) [facility] 04/13/2018 eCW2 ([facility] 12:00:00 AM EST [facility]) [facility] 03/27/2018 e[facility] ([facility] 12:00:00 AM EST [facility] 03/23/2018 eCW2 ([place] [facility] 12:00:00 AM EST [facility] 03/16/2018 eCW2 ([place] [facility] 12:00:00 AM EST [facility]) [facility] 03/04/2018 eCW2 ([place] [facility] 12:00:00 AM EST [facility]) [facility] 03/04/2018 eCW2 ([place] [facility] 12:00:00 AM EST [facility]) [facility] 03/02/2018 eCW2 ([place] [facility] 12:00:00 AM EST [facility] 03/01/2018 eCW2 ([facility] 12:00:00 AM EST [facility]) [facility] 03/01/2018 eCW2 ([facility] 12:00:00 AM EST [facility] 02/27/2018 eCW2 [facility] 12:00:00 AM EST [facility] 02/27/2018 eCW2 ([place] [facility] 12:00:00 AM EST [facility]) [facility] 02/21/2018 eCW2 ([facility] 12:00:00 AM EST [facility]) [facility] 02/21/2018 eCW2 ([place] [facility] 12:00:00 AM EST [facility]) [facility] 02/10/2018 eCW2 ([place] [facility] 12:00:00 AM EDT [facility]) [facility] 02/10/2018 eCW2 ([facility] 12:00:00 AM EDT [facility]) [facility] Phill Mcgheelyn 02/01/2018 eCW2 ([facility] 12:00:00 AM EDT [facility]) [facility] Phill Mcgheelyn 01/30/2018 eCW2 ([facility] 12:00:00 AM EDT [facility]) [facility] Phill Mcgheelyn 01/27/2018 eCW2 ([facility] 12:00:00 AM EDT [facility]) [facility] Phill Mcgheelyn 01/26/2018 eCW2 ([facility] 12:00:00 AM EDT [facility]) [facility] Phill Mcgheelyn 01/26/2018 eCW2 ([facility] 12:00:00 AM EDT [facility]) [facility] Phill Rogersn 01/25/2018 eCW2 ([facility] 12:00:00 AM EDT [facility]) [facility] Phill Mcgheelyn 01/24/2018 eCW2 ([facility] 12:00:00 AM EDT [facility]) [facility] Phill Mcgheelyn 01/18/2018 eCW2 ([facility] 12:00:00 AM EDT [facility]) [facility] Phill Mcgheelyn 01/18/2018 eCW2 ([facility] 12:00:00 AM EDT [facility]) [facility] Phill Mcgheelyn 01/18/2018 eCW2 ([facility] 12:00:00 AM EDT [facility]) [facility] Phill Mcgheelyn 01/17/2018 eCW2 ([facility] 12:00:00 AM EDT [facility]) [facility] Phill Janeth 01/09/2018 eCW2 ([facility] 12:00:00 AM EDT [facility]) [facility] Phill Mcgheelyn 01/09/2018 eCW2 ([facility] 12:00:00 AM EDT [facility]) [facility] Phill Janeth 01/06/2018 eCW2 ([facility] 12:00:00 AM EDT [facility]) [facility] [place] Janeth 01/06/2018 eCW2 ([facility] 12:00:00 AM EDT [facility]) [facility] [place] Janeth 01/06/2018 eCW2 ([facility] 12:00:00 AM EDT [facility]) [facility] 01/05/2018 eCW2 ([facility] 12:00:00 AM EDT [facility]) [facility] 01/05/2018 eCW2 ([facility] 12:00:00 AM EDT [facility] 01/05/2018 eCW2 ([facility] 12:00:00 AM EDT [facility] 01/05/2018 eCW2 ([facility] 12:00:00 AM EDT [facility] 01/04/2018 eCW2 ([facility] 12:00:00 AM EDT [facility]) [facility] 01/04/2018 eCW2 ([facility] 12:00:00 AM EDT [facility] 12/30/2017 eCW2 ([facility] 12:00:00 AM EDT [facility]) [facility] 12/30/2017 eCW2 ([facility] 12:00:00 AM EDT [facility]) [facility] 12/28/2017 eCW2 ([facility] 12:00:00 AM EDT [facility]) [facility] 12/27/2017 eCW2 ([place] [facility] 12:00:00 AM EDT [facility]) [facility] Phill Janeth 12/22/2017 eCW2 ([place] [facility] 12:00:00 AM EDT [facility]) [facility] Phill Janeth 12/22/2017 eCW2 ([place] [facility] 12:00:00 AM EDT [facility]) [facility] Phill Janeth 12/20/2017 eCW2 ([place] [facility] 12:00:00 AM EDT [facility]) [facility] Phill Janeth 12/20/2017 eCW2 ([place] [facility] 12:00:00 AM EDT [facility]) [facility] Phill Janeth 12/20/2017 eCW2 ([place] [facility] 12:00:00 AM EDT [facility]) [facility] Phill Janeth 12/20/2017 eCW2 ([place] [facility] 12:00:00 AM EDT [facility]) [facility] Phill Janeth 12/16/2017 eCW2 ([place] [facility] 12:00:00 AM EDT [facility]) [facility] Phill Janeth 12/13/2017 [facility]CW[facility] 12:[facility]00 AM [facility]) [facility] Phill Janeth 12/07/2017 eCW2 ([place] [facility] 12:00:00 AM EDT [facility]) [facility] Phill Janeth 12/07/2017 eCW2 ([place] [facility] 12:00:00 AM EDT [facility]) [facility] Phill Janeth 12/05/2017 eCW2 ([place] [facility] 12:00:00 AM EDT [facility]) [facility] [place] Janeth 11/30/2017 eCW2 ([place] [facility] 12:00:00 AM EDT [facility] 12:00:00 AM EDT [facility]) [facility] [place] Janeth 11/23/2017 eCW2 ([facility] 12:00:00 AM EDT [facility]/2017 eCW[facility] ([facility] 12:00:00 AM EDT [facility]) [facility] 11/03/2017 eCW2 ([facility] 12:00:00 AM EDT [facility]) [facility] 10/26/2017 eCW2 ([facility] 12:00:00 AM EDT [facility]) [facility] 10/26/2017 eCW2 ([facility] 12:00:00 AM EDT [facility]) [facility] 10/17/2017 eCW2 ([facility] 12:00:00 AM EDT [facility] 10/15/2017 eCW2 ([facility] 12:00:00 AM EDT [facility] 10/06/2017 eCW2 [facility] 12:00:00 AM EDT [facility]) [facility] 10/03/2017 eCW2 ([facility] 12:00:00 AM EDT [facility]) [facility] 10/03/2017 eCW2 ([facility] 12:00:00 AM EDT [facility]) [facility] 09/21/2017 eCW2 ([facility] 12:00:00 AM EDT [facility]) [facility] 09/20/2017 eCW2 ([facility] 12:00:00 AM EDT [facility]) [facility] 09/20/2017 eCW2 ([facility] 12:00:00 AM EDT [facility]) [facility] [place] Janeth 09/16/2017 eCW2 ([facility] 12:00:00 AM EDT [facility] 09/16/2017 eCW2 ([facility] 12:00:00 AM EDT [facility]) [facility] 09/13/2017 eCW2 [facility] 12:00:00 AM EDT [facility]) [facility] 09/09/2017 eCW2 ([facility] 12:00:00 AM EDT [facility]) [facility] 09/09/2017 eCW2 ([facility] 12:00:00 AM EDT [facility]) [facility] 08/29/2017 eCW2 ([place] [facility] 12:00:00 AM EDT [facility]) [facility] 08/22/2017 eCW2 ([facility] 12:00:00 AM EDT [facility] 08/19/2017 eCW2 ([facility] 12:00:00 AM EDT [facility] 08/04/2017 eCW2 ([facility] 12:00:00 AM EDT [facility] 07/20/2017 eCW2 [facility] 12:00:00 AM EDT [facility] 12:00:00 AM EDT [facility] 12:00:00 AM EDT [facility]) [facility] 07/19/2017 eCW2 ([facility] 12:00:00 AM EDT [facility]) [facility] Phill Janeth 07/18/2017 eCW2 ([facility] 12:00:00 AM EDT [facility]) [facility] [place] Janeth 07/15/2017 eCW2 ([facility] 12:00:00 AM EDT [facility]) [facility] 07/15/2017 eCW2 ([facility] 12:00:00 AM EDT [facility]) [facility] 07/13/2017 eCW2 ([facility] 12:00:00 AM EDT [facility] 07/13/2017 eCW2 [facility] 12:00:00 AM EDT [facility] 07/11/2017 eCW2 ([facility] 12:00:00 AM EDT [facility]) [facility] [place] Janeth 06/16/2017 eCW2 ([facility] 12:00:00 AM EST [facility] 06/14/2017 eCW2 ([facility] 12:00:00 AM EST [facility] 06/13/2017 eCW2 ([facility] 12:00:00 AM EST [facility]) [facility] 06/13/2017 eCW2 [facility] 12:00:00 AM EST [facility] 06/08/2017 eCW2 ([facility] 12:00:00 AM EST [facility]) [facility] 06/07/2017 eCW2 [facility] 12:00:00 AM EST [facility]) [facility] 05/24/2017 eCW2 ([facility] 12:00:00 AM EST [facility] ([facility] 12:00:00 AM EST [facility]) [facility] Phill Janeth 05/16/2017 eCW2 ([facility] 12:00:00 AM EST [facility]) [facility] Phill Janeth 05/11/2017 eCW2 ([facility] 12:00:00 AM EST [facility]) [facility] Phill Janeth 05/11/2017 eCW2 ([facility] 12:00:00 AM EST [facility]) [facility] 05/10/2017 eCW2 ([facility] 12:00:00 AM EST [facility]) [facility] 05/04/2017 eCW2 ([facility] 12:00:00 AM EST [facility]) [facility] Phill Janeth 04/27/2017 eCW2 ([facility] 12:00:00 AM EST [facility] 04/25/2017 eCW2 ([facility] 12:00:00 AM EST [facility] 04/08/2017 eCW2 ([facility] 12:00:00 AM EST [facility] 04/08/2017 eCW2 ([facility] 12:00:00 AM EST [facility]) [facility] 04/08/2017 eCW2 ([facility] 12:00:00 AM EST [facility] 04/06/2017 eCW2 ([facility] 12:00:00 AM EST [facility]) [facility] 04/05/2017 eCW2 ([facility] 12:00:00 AM EST [facility] 03/21/2017 eCW2 ([facility] 12:00:00 AM EST [facility]) [facility] 03/17/2017 eCW2 ([facility] 12:00:00 AM EST [facility]) [facility] 03/16/2017 eCW2 ([facility] 12:00:00 AM EST [facility]) [facility] 03/15/2017 eCW2 ([facility] 12:00:00 AM EST [facility]) [facility] 03/14/2017 eCW2 ([facility] 12:00:00 AM EST [facility] 03/14/2017 eCW2 ([facility] 12:00:00 AM EST [facility]) [facility] 03/03/2017 eCW2 ([facility] 12:00:00 AM EST [facility]) [facility] 03/02/2017 eCW2 ([facility] 12:00:00 AM EST [facility]) [facility] 03/02/2017 eCW2 ([facility] 12:00:00 AM EST [facility] 02/04/2017 eCW2 ([facility] 12:00:00 AM EDT [facility]) [facility] [place] [facility] 02/03/2017 eCW2 ([facility] 12:00:00 AM EDT [facility]) [facility] 01/28/2017 eCW2 ([facility] 12:00:00 AM EDT [facility]) [facility] 01/18/2017 eCW2 ([facility] 12:00:00 AM EDT [facility]) [facility] 01/17/2017 eCW2 ([facility] 12:00:00 AM EDT [facility] 01/14/2017 eCW2 ([facility] 12:00:00 AM EDT [facility]) [facility] 01/11/2017 eCW2 ([facility] 12:00:00 AM EDT [facility]) [facility] 01/11/2017 eCW2 ([facility] 12:00:00 AM EDT [facility]) [facility] 01/05/2017 eCW2 ([facility] 12:00:00 AM EDT [facility]) [facility] 12/31/2016 eCW2 ([facility] 12:00:00 AM EDT [facility]) [facility] 12/29/2016 eCW2 ([facility] 12:00:00 AM EDT [facility]) [facility] 12/29/2016 eCW2 ([facility] 12:00:00 AM EDT [facility]) [facility] 12/22/2016 eCW2 ([facility] 12:00:00 AM EDT [facility]) [facility] 12/22/2016 eCW2 ([facility] 12:00:00 AM EDT [facility]) [facility] 11/24/2016 eCW2 ([facility] 12:00:00 AM EDT [facility]) [facility] 11/22/2016 eCW2 ([facility] 12:00:00 AM EDT [facility]) [facility] 11/17/2016 eCW2 ([facility] 12:00:00 AM EDT [facility]) [facility]/16/2016 eCW2 ([facility] 12:00:00 AM EDT [facility]) [facility] 11/16/2016 eCW2 ([facility] 12:00:00 AM EDT [facility]) [facility] 11/09/2016 eCW2 ([facility] 12:00:00 AM EDT [facility]) [facility] 11/04/2016 eCW2 ([facility] 12:00:00 AM EDT [facility]) [facility] 10/14/2016 eCW2 ([facility] 12:00:00 AM EDT [facility]) [facility] 10/13/2016 eCW2 ([facility] 12:00:00 AM EDT [facility]) [facility] 10/12/2016 eCW2 ([facility] 12:00:00 AM EDT [facility]) [facility] 10/11/2016 eCW2 ([facility] 12:00:00 AM EDT [facility]) [facility] 09/23/2016 eCW2 ([facility] 12:00:00 AM EDT [facility]) [facility] 09/21/2016 eCW2 ([facility] 12:00:00 AM EDT [facility]) [facility] 09/17/2016 eCW2 ([facility] 12:00:00 AM EDT [facility]) [facility] 09/16/2016 eCW2 ([facility] 12:00:00 AM EDT [facility]) [facility] 09/16/2016 eCW2 ([facility] 12:00:00 AM EDT [facility]) [facility] 09/10/2016 eCW2 ([facility] 12:00:00 AM EDT [facility]) [facility] 08/27/2016 eCW2 ([facility] 12:00:00 AM EDT [facility]) [facility] 08/20/2016 eCW2 ([facility] 12:00:00 AM EDT [facility] ([facility] 12:00:00 AM EDT [facility]) [facility] 08/17/2016 eCW2 ([facility] 12:00:00 AM EDT [facility] 12:00:00 AM EDT [facility]) [facility] 08/10/2016 eCW2 [facility] 12:00:00 AM EDT [facility]) [facility] 07/27/2016 eCW2 ([facility] 12:00:00 AM EDT [facility]) [facility] 07/19/2016 eCW2 [facility] 12:00:00 AM EDT [facility]) [facility] 07/13/2016 eCW2 [facility] 12:00:00 AM EDT [facility]) [facility] 07/08/2016 eCW2 ([facility] 12:00:00 AM EDT [facility]) [facility] 07/08/2016 eCW2 ([facility] 12:00:00 AM EDT [facility]) [facility] 07/07/2016 eCW2 [facility] 12:00:00 AM EDT [facility]) [facility] 07/07/2016 eCW2 [facility] 12:00:00 AM EDT [facility]) [facility] 06/23/2016 eCW2 ([facility] 12:00:00 AM EST [facility]) [facility] 06/21/2016 eCW2 ([facility] 12:00:00 AM EST [facility]) [facility] 06/21/2016 eCW2 ([facility] 12:00:00 AM EST [facility]) [facility] 05/25/2016 eCW2 ([facility] 12:00:00 AM EST [facility]) [facility] 05/20/2016 eCW2 ([facility] 12:00:00 AM EST [facility]) [facility] 05/19/2016 eCW2 ([facility] 12:00:00 AM EST [facility]) [facility] 05/17/2016 eCW2 ([facility] 12:00:00 AM EST [facility]) [facility] 05/04/2016 eCW2 ([facility] 12:00:00 AM EST [facility]) [facility] 04/28/2016 eCW2 ([facility] 12:00:00 AM EST [facility]) [facility] 04/28/2016 eCW2 ([facility] 12:00:00 AM EST [facility]) [facility] 04/27/2016 eCW2 ([facility] 12:00:00 AM EST [facility]) [facility] 04/16/2016 eCW2 ([facility] 12:00:00 AM EST [facility]) [facility] 04/15/2016 eCW2 ([facility] 12:00:00 AM EST [facility]) [facility] 04/08/2016 eCW2 ([facility] 12:00:00 AM EST [facility] 03/17/2016 eCW2 ([facility] 12:00:00 AM EST [facility]) [facility] 03/10/2016 eCW2 ([facility] 12:00:00 AM EST [facility]) [facility] 03/10/2016 eCW2 ([facility] 12:00:00 AM EST [facility]) [facility] 03/09/2016 eCW2 ([facility] 12:00:00 AM EST [facility]) [facility] 03/08/2016 eCW2 ([facility] 12:00:00 AM EST [facility]) [facility] 03/05/2016 eCW2 ([facility] 12:00:00 AM EST [facility]) [facility] 03/04/2016 eCW2 ([facility] 12:00:00 AM EST [facility]) [facility] 03/02/2016 eCW2 ([facility] 12:00:00 AM EST [facility]) [facility] 02/26/2016 eCW2 ([facility] 12:00:00 AM EST [facility]) [facility] 02/19/2016 eCW2 ([facility] 12:00:00 AM EDT [facility]) [facility] 02/18/2016 eCW2 ([facility] 12:00:00 AM EDT [facility]) [facility] 02/16/2016 eCW2 ([facility] 12:00:00 AM EDT [facility]) [facility] 02/13/2016 eCW2 ([facility] 12:00:00 AM EDT [facility]) [facility] 02/13/2016 eCW2 ([facility] 12:00:00 AM EDT [facility]) [facility] 02/13/2016 eCW2 ([facility] 12:00:00 AM EDT [facility]) [facility] 02/10/2016 eCW2 ([facility] 12:00:00 AM EDT [facility]) [facility] 02/02/2016 eCW2 ([facility] 12:00:00 AM EDT [facility]) [facility] 01/29/2016 eCW2 ([facility] 12:00:00 AM EDT [facility]) [facility] 01/22/2016 eCW2 ([facility] 12:00:00 AM EDT [facility]) [facility] 01/19/2016 eCW2 ([facility] 12:00:00 AM EDT [facility]) [facility] 01/06/2016 eCW2 ([facility] 12:00:00 AM EDT [facility]) [facility] 12/10/2015 eCW2 ([facility] 12:00:00 AM EDT [facility]) [facility] 12/08/2015 eCW2 ([facility] 12:00:00 AM EDT [facility]) [facility] 11/19/2015 eCW2 ([facility] 12:00:00 AM EDT [facility]) [facility] 11/17/2015 eCW2 ([facility] 12:00:00 AM EDT [facility]) [facility] 11/12/2015 eCW2 ([facility] 12:00:00 AM EDT [facility]) [facility] 11/10/2015 eCW2 ([facility] 12:00:00 AM EDT [facility]) [facility] 11/04/2015 eCW2 ([facility] 12:00:00 AM EDT [facility]) [facility] 11/03/2015 eCW2 ([facility] 12:00:00 AM EDT [facility]) [facility] 10/23/2015 eCW2 ([facility] 12:00:00 AM EDT [facility]) [facility] 10/21/2015 eCW2 ([facility] 12:00:00 AM EDT [facility]) [facility] 10/17/2015 eCW2 ([facility] 12:00:00 AM EDT [facility]) [facility] 10/14/2015 eCW2 ([facility] 12:00:00 AM EDT [facility]) [facility] 10/03/2015 eCW2 ([facility] 12:00:00 AM EDT [facility]) [facility] 09/30/2015 eCW2 ([facility] 12:00:00 AM EDT [facility]) [facility] 09/18/2015 eCW2 ([facility] 12:00:00 AM EDT [facility]) [facility] 09/12/2015 eCW2 ([facility] 12:00:00 AM EDT [facility]) [facility] 09/10/2015 eCW2 ([facility] 12:00:00 AM EDT [facility]) [facility] 09/10/2015 eCW2 ([facility] 12:00:00 AM EDT [facility]) [facility] 08/28/2015 eCW2 ([facility] 12:00:00 AM EDT [facility]) [facility] 08/22/2015 eCW2 ([facility] 12:00:00 AM EDT [facility]) [facility] 08/20/2015 eCW2 ([facility] 12:00:00 AM EDT [facility]) [facility] 08/19/2015 eCW2 ([facility] 12:00:00 AM EDT [facility]) [facility] 08/15/2015 eCW2 [facility] 12:00:00 AM EDT [facility]) [facility] 08/13/2015 eCW2 [facility] 12:00:00 AM EDT [facility]) [facility] 08/11/2015 eCW2 [facility] 12:00:00 AM EDT [facility]) [facility] 08/08/2015 eCW2 [facility] 12:00:00 AM EDT [facility]) [facility] 08/04/2015 eCW2 [facility] 12:00:00 AM EDT [facility]) [facility] 07/31/2015 eCW2 [facility] 12:00:00 AM EDT [facility]) [facility] 07/31/2015 eCW2 [facility] 12:00:00 AM EDT [facility]) [facility] 07/21/2015 eCW2 [facility] 12:00:00 AM EDT [facility]) [facility] 07/16/2015 eCW2 [facility] 12:00:00 AM EDT [facility]) [facility] 07/15/2015 eCW2 [facility] 12:00:00 AM EDT [facility]) [facility] 07/11/2015 eCW2 ([facility] 12:00:00 AM EDT [facility]) [facility] 07/11/2015 eCW2 ([facility] 12:00:00 AM EDT [facility]) [facility] 07/09/2015 eCW2 ([facility] 12:00:00 AM EDT [facility]) [facility] 07/09/2015 eCW2 ([facility] 12:00:00 AM EDT [facility]) [facility] 07/07/2015 eCW2 ([facility] 12:00:00 AM EDT [facility]) [facility] 07/03/2015 eCW2 ([facility] 12:00:00 AM EDT [facility]) [facility] 06/26/2015 eCW2 ([facility] 12:00:00 AM EST [facility]) [facility] 06/23/2015 eCW2 ([facility] 12:00:00 AM EST [facility]) [facility] 06/13/2015 eCW2 ([facility] 12:00:00 AM EST [facility]) [facility] 06/10/2015 eCW2 ([facility] 12:00:00 AM EST [facility]) [facility] 05/26/2015 eCW2 ([facility] 12:00:00 AM EST [facility]) [facility] 05/22/2015 eCW2 ([facility] 12:00:00 AM EST [facility]) [facility] 05/21/2015 eCW2 ([facility] 12:00:00 AM EST [facility]) [facility] 05/21/2015 eCW2 ([facility] 12:00:00 AM EST [facility]) [facility] 05/16/2015 eCW2 ([facility] 12:00:00 AM EST [facility]) [facility] 05/08/2015 eCW2 ([facility] 12:00:00 AM EST [facility]) [facility] [place] [place] [facility] 05/08/2015 eCW2 ([facility] 12:00:00 AM EST [facility]) [facility] 05/08/2015 eCW2 ([facility] 12:00:00 AM EST [facility]) [facility] 05/02/2015 eCW2 ([facility] 12:00:00 AM EST [facility]) [facility] 05/02/2015 eCW2 ([facility] 12:00:00 AM EST [facility]) [facility] 05/02/2015 eCW2 ([facility] 12:00:00 AM EST [facility]) [facility] 04/25/2015 eCW2 ([facility] 12:00:00 AM EST [facility]) [facility] 04/22/2015 eCW2 ([facility] 12:00:00 AM EST [facility]) [facility] 04/08/2015 eCW2 ([facility] 12:00:00 AM EST [facility]) [facility] 04/07/2015 eCW2 ([facility] 12:00:00 AM EST [facility]) [facility] 03/27/2015 eCW2 ([facility] 12:00:00 AM EST [facility]) [facility] 03/24/2015 eCW2 ([facility] 12:00:00 AM EST [facility]) [facility] 02/28/2015 eCW2 [facility] 12:00:00 AM EST [facility]) [facility] 02/26/2015 [facility]CW2 [facility] 12:00[facility]00 AM EST [facility] 02/11/2015 eCW2 [facility] 12:00:00 AM EDT [facility]) [facility] 02/11/2015 [facility]CW2 [facility] 12:00:00 AM EDT [facility]) [facility] 02/06/2015 eCW2 ([facility] 12:00:00 AM EDT [facility]) [facility] 02/06/2015 eCW2 ([facility] 12:00:00 AM EDT [facility]) [facility] 02/05/2015 eCW2 ([facility] 12:00:00 AM EDT [facility]) [facility] 02/05/2015 eCW2 ([facility] 12:00:00 AM EDT [facility]) [facility] 02/05/2015 eCW2 ([facility] 12:00:00 AM EDT [facility]) [facility] 01/15/2015 eCW2 ([facility] 12:00:00 AM EDT [facility]) [facility] 12/09/2014 eCW2 [facility] 12:00:00 AM EDT [facility]) [facility] 12/06/2014 eC W2 [facility] 12:00:00 AM EDT [facility]) [facility] 11/05/2014 eC W2 ([facility] 12[facility]00:00 AM EDT [facility]) [facility] 11/04/2014 eCW2 ([facility] 12:00:00 AM EDT [facility]) [facility] [place] [facility] 10/16/2014 eC W2 [facility] 12:00:00 AM EDT [facility]) [facility] 12:00:00 AM EDT [facility]) [facility] 10/14/2014 eCW2 [facility] 12:00:00 AM EDT [facility]) [facility] 09/11/2014 eCW2 [facility] 12:00:00 AM ED [facility]) [facility] 09/04/2014 eCW2 [facility] 12:00:00 AM ED [facility]) [facility] 09/02/2014 eCW2 [facility] 12:00:00 AM ED [facility]) [facility] 08/15/2014 eCW2 [facility] 12:00:00 AM ED [facility]) [facility] 08/07/2014 eCW2 [facility] [place] [facility] [facility]00 AM [facility] [facility] 12:00:00 AM ED [facility] [facility] [facility] 12:00:00 AM ED [facility] 08/[facility] [facility] 12:00:00 AM ED [facility] 08/05/2014 [facility] [facility] 12:00:00 AM EDT [facility] 08/05/2014 eCW2 [facility] [facility] 12:00:00 AM EDT [facility] 08/05/[facility] [facility] 12:00:00 AM EDT [facility] 07/30/2014 eCW[facility] ([place] [facility] 12:00:00 AM EDT [facility]) [facility] 07/24/2014 eCW2 ([place] [facility] 12:00:00 AM EDT [facility]) [facility] 07/22/2014 eCW2 ([facility] 12:00:00 AM EDT [facility] 07/18/2014 eCW2 ([place] [facility] 12:00:00 AM EDT [facility] 07/17/2014 eCW2 ([facility] 12:00:00 AM EDT [facility]) [facility] 07/17/2014 eCW2 ([place] 12:00:00 AM EDT [facility] 07/16/2014 [facility] ([place] 12:00:00 AM EDT [facility]) [facility] 07/15/2014 eCW2 ([facility] 12:00:00 AM EDT [facility]) [facility] 07/12/2014 eCW2 ([place] [facility] 12:00:00 AM EDT [facility]) [facility] 07/11/2014 eCW2 ([place] [facility] 12:00:00 AM EDT [facility]) [facility] 07/10/2014 eCW2 ([place] [facility] 12:00:00 AM EDT [facility]) [facility] Janeth 07/10/2014 eCW2 ([place] [facility] 12:00:00 AM EDT [facility]) [facility] [place] Janeth 07/10/2014 eCW2 ([place] [facility] 12:00:00 AM EDT [facility]2014 [facility] 12:00:00 AM EDT [facility] 07/09/2014 eCW2 [facility] [facility] 12:00:00 AM EDT [facility] 07/08/2014 eCW2 [facility] [facility] 12:00:00 AM EDT [facility]) [facility] Janeth 07/03/2014 eCW2 ([place] [facility] 12:00:00 AM EDT [facility] 07/02/2014 eCW2 [facility] [facility] 12:00:00 AM EDT [facility] 07/02/2014 eCW2 [facility] [facility] 12:00:00 AM EDT [facility] 07/02/2014 eCW2 [facility] [facility] 12:00:00 AM EDT [facility] 06/26/2014 eCW2 [facility] [facility] 12:00:00 AM EDT [facility] 06/21/2014 [facility]CW2 [facility] 12:00:00 AM EST [facility] 06/18/2014 eCW2 [facility] [facility] 12:00:00 AM EST [facility] 06/17/2014 eCW2 ([place] [facility] 12:00:00 AM EST [facility] 06/17/2014 eCW2 ([place] [facility] 12:00:00 AM EST [facility] 06/12/2014 eCW2 ([place] [facility] 12:00:00 AM EST [facility]) [facility] 05/28/2014 eCW2 [facility] [facility] 12:00:00 AM EST [facility] 05/07/2014 eCW2 ([facility] 12:00:00 AM EST [facility] 05/02/2014 eCW2 ([facility] 12:00:00 AM EST [facility]) [facility] 04/17/2014 eCW2 [facility] 12:00:00 AM EST [facility]) [facility] 04/03/2014 eCW2 [facility] 12:00:00 AM EST [facility] 03/26/2014 eCW2 [facility] 12:00:00 AM EST [facility] 02/18/2014 eCW2 [facility] [facility] 12:00:00 AM EST [facility]) [facility] 02/12/2014 eCW2 [facility] [facility] 12:00:00 AM EDT [facility]) [facility] 01/30/2014 eCW2 ([facility] 12:00:00 AM EDT [facility]) [facility] 01/29/2014 eCW2 [facility] 12:00:00 AM EDT [facility]) [facility] 01/09/2014 eCW2 ([facility] 12:00:00 AM EDT [facility] 01/09/2014 eCW2 ([place] [facility] 12:00:00 AM EDT [facility] 01/09/2014 eCW2 ([place] [facility] 12:00:00 AM EDT [facility]) [facility] 12/06/2013 eCW2 ([facility] 12:00:00 AM EDT [facility]) [facility] 12/06/2013 eCW2 ([place] [facility] 12:00:00 AM EDT [facility]) [facility] 12/06/2013 eCW2 ([place] [facility] 12:00:00 AM EDT [facility]) [facility] 11/14/2013 eCW2 ([facility] 12:00:00 AM EDT [facility]) [facility] 10/29/2013 eCW2 ([place] [facility] 12:00:00 AM EDT [facility]) [facility] 10/25/2013 eCW2 ([place] 12:00:00 AM EDT [facility]) [facility] 10/18/2013 eCW2 ([place] [facility] 12:00:00 AM EDT [facility]) [facility] 10/16/2013 eCW2 ([facility] 12:00:00 AM EDT [facility]) [facility] 10/12/2013 eCW2 ([facility] 12:00:00 AM EDT [facility]) [facility] 10/11/2013 eCW2 ([facility] 12:00:00 AM EDT [facility]) [facility] 10/11/2013 eCW2 ([facility] 12:00:00 AM EDT [facility]) [facility] 10/10/2013 eCW2 ([facility] 12:00:00 AM EDT [facility]) [facility] 09/04/2013 eCW2 ([place] [facility] 12:00:00 AM EDT [facility] 09/03/2013 eCW2 ([place] [facility] 12:00:00 AM EDT [facility] 09/03/2013 eCW2 ([place] [facility] 12:00:00 AM EDT [facility]) [facility] 08/14/2013 eCW2 ([place] [facility] 12:00:00 AM EDT [facility]) [facility] 08/13/2013 eCW2 ([place] [facility] 12:00:00 AM EDT [facility] 08/09/2013 eCW2 ([place] [facility] 12:00:00 AM EDT [facility] 08/08/2013 eCW2 ([place] [facility] 12:00:00 AM EDT [facility]) [facility] 07/27/2013 eCW2 ([place] [facility] 12:00:00 AM EDT [facility]) [facility] 07/20/2013 eCW2 ([place] [facility] 12:00:00 AM EDT [facility]) [facility] 07/10/2013 eCW2 ([facility] 12:00:00 AM EDT [facility]) [facility] 07/09/2013 eCW2 ([place] [facility] 12:00:00 AM EDT [facility]) [facility] 07/09/2013 eCW2 ([place] [facility] 12:00:00 AM EDT [facility]) [facility] 07/06/2013 eCW2 ([place] [facility] 12:00:00 AM ED [facility]) [facility] 06/12/2013 eCW2 [facility] 12:[facility]00 AM EST [facility] Janeth 06/07/2013 eCW2 [facility] 12:00:00 AM EST [facility] 05/18/2013 eCW2 ([facility] 12:00:00 AM EST [facility]) [facility] 04/06/2013 eCW2 ([facility] 12:00:00 AM EST [facility]) [facility] 04/04/2013 eCW2 ([facility] 12:00:00 AM EST [facility]) [facility] 03/23/2013 eCW2 ([facility] 12:00:00 AM EST [facility]) [facility] 03/22/2013 eCW2 ([facility] 12:00:00 AM EST [facility]) [facility] 03/21/2013 eCW2 ([facility] 12:00:00 AM EST [facility]) [facility] 03/14/2013 eCW2 ([place] [facility] 12:00:00 AM EST [facility]) [facility] 03/13/2013 eCW2 ([facility] 12:00:00 AM EST [facility]) [facility] 03/05/2013 eCW2 ([facility] 12:00:00 AM EST [facility]) [facility] 02/23/2013 eCW2 ([facility] 12:00:00 AM EST [facility]) [facility] 02/23/2013 eCW2 ([facility] 12:00:00 AM EST [facility]) [facility] 02/22/2013 eCW2 ([place] [facility] 12:00:00 AM EST [facility]) [facility] Janeth 02/22/2013 eCW2 ([place] [facility] 12:00:00 AM EST [facility]) [facility] 02/19/2013 eCW2 ([place] [facility] 12:00:00 AM EST [facility]) [facility] 02/08/2013 eCW2 [facility] [facility] 12:00:00 AM EDT [facility]) [facility] 02/05/2013 eCW2 ([place] [facility] 12:00:00 AM EDT [facility]) [facility] 02/05/2013 eCW2 [facility] [facility] 12:00:00 AM EDT [facility]) [facility] 12/01/2012 eCW2 ([place] [facility] 12:00:00 AM EDT [facility]) [facility] 11/30/2012 eCW2 ([place] [facility] 12:00:00 AM EDT [facility]) [facility] 11/30/2012 eCW2 ([place] [facility] 12:00:00 AM EDT [facility]) [facility] 11/22/2012 eCW2 ([place] [facility] 12:00:00 AM EDT [facility]) [facility] 10/04/2012 eCW2 ([place] [facility] 12:00:00 AM EDT [facility]) [facility] 10/02/2012 eCW2 ([place] [facility] 12:00:00 AM EDT [facility]) [facility] 09/06/2012 eCW2 ([place] [facility] 12:00:00 AM EDT [facility]) [facility] 07/[facility]CW[facility] ([place] [facility] 12:00:00 AM EDT [facility]) [facility] 07/19/2012 eCW2 ([place] [facility] 12:00:00 AM EDT [facility]) [facility] 05/09/2012 eCW2 ([facility] 12:00:00 AM EST [facility]) [facility] 02/04/2012 eCW2 ([facility] 12:00:00 AM EDT [facility]) [facility] 01/06/2012 eCW2 ([facility] 12:00:00 AM EDT [facility]) [facility] 01/06/2012 eCW2 ([facility] 12:00:00 AM EDT [facility]) [facility] 12/06/2011 eCW2 ([facility] 12:00:00 AM EDT [facility]) [facility] 12/06/2011 eCW2 ([facility] 12:00:00 AM EDT [facility]) [facility] 12/01/2011 eCW2 ([facility] 12:00:00 AM EDT [facility]) [facility] 12/01/2011 eCW2 ([facility] 12:00:00 AM EDT [facility]) [facility] 11/16/2011 eCW2 ([facility] 12:00:00 AM EDT [facility]) [facility] 11/13/2011 eCW2 ([facility] 12:00:00 AM EDT [facility]) [facility] 11/13/2011 eCW2 ([facility] 12:00:00 AM EDT [facility]) [facility] 11/03/2011 eCW2 ([facility] 12:00:00 AM EDT [facility]) [facility] 11/03/2011 eCW2 ([facility] 12:00:00 AM EDT [facility]) [facility] 10/13/2011 eCW2 ([place] [facility] 12:00:00 AM EDT [facility]) [facility] 10/08/2011 eCW2 ([facility] 12:00:00 AM EDT [facility]) [facility] 10/08/2011 eCW2 ([place] 12:00:00 AM EDT [facility]) [facility] 10/04/2011 eCW2 ([facility] 12:00:00 AM EDT [facility]) [facility] 08/19/2011 eCW2 ([facility] 12:00:00 AM EDT [facility]) [facility] 08/13/2011 eCW2 ([place] [facility] 12:00:00 AM EDT [facility]) [facility] 07/05/2011 eCW2 ([place] [facility] 12:00:00 AM EDT [facility]) [facility] 07/02/2011 eCW2 ([place] [facility] 12:00:00 AM EDT [facility]) [facility] 06/30/2011 eCW2 ([facility] 12:00:00 AM EDT [facility]) [facility] 06/21/2011 eCW2 ([facility] 12:00:00 AM EST [facility]) [facility] 06/17/2011 eCW2 ([facility] 12:00:00 AM EST [facility]) [facility] 06/17/2011 eCW2 ([facility] 12:00:00 AM EST [facility]) [facility] [place] Janeth 06/08/2011 eCW2 ([place] [facility] 12:00:00 AM EST [facility]) [facility] [place] Janeth 05/13/2011 eCW2 ([facility] 12:00:00 AM EST [facility] 05/05/2011 eCW2 ([place] 12:00:00 AM EST [facility] 04/27/2011 eCW2 ([place] [facility] 12:00:00 AM EST [facility]) [facility] 04/27/2011 eCW2 ([facility] 12:00:00 AM EST [facility] 04/01/2011 eCW2 ([facility] 12:00:00 AM EST [facility]) [facility] 03/31/2011 eCW2 ([facility] 12:00:00 AM EST [facility]) [facility] 03/03/2011 eCW2 ([facility] 12:00:00 AM EST [facility]) [facility] 01/18/2011 eCW2 ([facility] 12:00:00 AM EDT [facility]) [facility] 01/07/2011 eCW2 ([facility] 12:00:00 AM EDT [facility]) [facility] 12/17/2010 eCW2 ([facility] 12:00:00 AM EDT [facility]) [facility] 11/12/2010 eCW2 ([facility] 12:00:00 AM EDT [facility]) [facility] 10/21/2010 eCW2 ([facility] 12:00:00 AM EDT [facility]) [facility] Janeth 10/12/2010 eCW2 ([facility] 12:00:00 AM EDT [facility] 12:00:00 AM EDT [facility]) [facility] 10/12/2010 eCW2 ([place] [facility] 12:00:00 AM EDT [facility]) [facility] 10/12/2010 eCW2 ([facility] 12:00:00 AM EDT [facility]) [facility] 10/02/2010 eCW2 [facility] [facility] 12:00:00 AM EDT [facility] 10/02/2010 eCW2 ([place] [facility] 12:00:00 AM EDT [facility]) [facility] 09/30/2010 eCW2 ([place] [facility] 12:00:00 AM EDT [facility] 09/23/2010 eCW2 ([place] [facility] 12:00:00 AM EDT [facility] 09/18/2010 eCW2 ([facility] 12:00:00 AM EDT [facility]) [facility] 09/11/2010 eCW2 ([place] [facility] 12:00:00 AM EDT [facility] 09/10/2010 eCW2 ([place] [facility] 12:00:00 AM EDT [facility]CW2 ([place] [facility] 12:00:00 AM EDT [facility]) [facility] 08/19/2010 eCW2 [facility] 12:00:00 AM EDT [facility] 08/18/2010 eCW2 ([facility] 12:00:00 AM EDT [facility]) [facility] Janeth 08/17/2010 eCW2 ([facility] 12:00:00 AM EDT [facility]) [facility] [place] Janeth 08/11/2010 eCW2 ([facility] 12:00:00 AM EDT [facility]) [facility] [place] Janeth 04/22/2010 eCW2 ([facility] 12:00:00 AM EST [facility]) [facility] 03/24/2010 eCW2 ([facility] 12:00:00 AM EST [facility]) [facility] 03/23/2010 eCW2 ([facility] 12:00:00 AM EST [facility] 03/20/2010 eCW2 ([facility] 12:00:00 AM EST [facility] 03/19/2010 eCW2 ([facility] 12:00:00 AM EST [facility] 03/17/2010 eCW2 ([facility] 12:00:00 AM EST [facility] 03/16/2010 eCW2 ([facility] 12:00:00 AM EST [facility]) [facility] 03/09/2010 eCW2 ([facility] 12:00:00 AM EST [facility]) [facility] 03/09/2010 eCW2 ([facility] 12:00:00 AM EST [facility]) [facility] 03/03/2010 eCW2 ([facility] 12:00:00 AM EST [facility]) [facility] 03/03/2010 eCW2 ([facility] 12:00:00 AM EST [facility]) [facility] 02/05/2010 eCW2 ([facility] 12:00:00 AM EDT [facility]) [facility] 01/12/2010 eCW2 ([facility] 12:00:00 AM EDT [facility]) [facility] 12/24/2009 eCW2 ([facility] 12:00:00 AM EDT [facility]) [facility] 12/15/2009 eCW2 ([facility] 12:00:00 AM EDT [facility]) [facility] 12/12/2009 eCW2 ([facility] 12:00:00 AM EDT [facility]) [facility] 11/25/2009 eCW2 ([facility] 12:00:00 AM EDT [facility]) [facility] 11/21/2009 eCW2 ([facility] 12:00:00 AM EDT [facility]) [facility] 10/15/2009 eCW2 ([facility] 12:00:00 AM EDT [facility]) [facility] 09/22/2009 eCW2 ([facility] 12:00:00 AM EDT [facility]) [facility] 06/30/2009 eCW2 ([facility] 12:00:00 AM EDT [facility]) [facility] 06/11/2009 eCW2 ([facility] 12:00:00 AM EST [facility]) [facility] 06/04/2009 eCW2 ([facility] 12:00:00 AM EST [facility]) [facility] 06/04/2009 eCW2 ([facility] 12:00:00 AM EST [facility]) [facility] 05/26/2009 eCW2 ([facility] 12:00:00 AM EST [facility]) [facility] 05/01/2009 eCW2 ([facility] 12:00:00 AM EST [facility]) [facility] 04/30/2009 eCW2 ([facility] [facility] 12:00:00 AM EST [facility]) [facility] 04/30/2009 eCW2 ([facility] 12:00:00 AM EST [facility] Care) [facility] 04/24/2009 eCW2 ([facility] 12:00:00 AM EST [facility] Care) [facility] 04/24/2009 eCW2 ([facility] 12:00:00 AM EST [facility] Care) [facility] 04/22/2009 eCW2 ([facility] 12:00:00 AM EST [facility] Care) [facility] 04/22/2009 eCW2 ([facility] 12:00:00 AM EST [facility] Care) [facility] 04/22/2009 eCW2 ([facility] 12:00:00 AM EST [facility] Care) [facility] 10/17/2008 eCW2 ([facility] 12:00:00 AM EDT [facility] Care) [facility] 10/11/2008 eCW2 ([facility] 12:00:00 AM EDT [facility] 12:00:00 AM EDT [facility]) Immunizations Vaccine Date Status Description Data Source(s) varicella 12/22/2017 completed eCW3 ([facility] 10:22:00 AM ED Health Care) varicella 12/22/2017 completed eCW3 ([place] [facility] 10:22:00 AM [facility] Care) varicella 12/22/2017 completed eCW3 ([place] [facility] 10:22:00 AM [facility] Health Care) varicella 12/22/2017 completed eCW3 ([place] [facility] 10:22:00 AM [facility] Health Care) varicella 12/22/2017 completed eCW3 ([place] [facility] 10:22:00 AM [facility] Health Care) Tdap 08/19/2010 completed eCW3 ([place] [facility] 03:55:22 PM ED Health Care) Tdap 08/19/2010 completed eCW3 ([place] [facility] 03:55:22 PM [facility] Health Care) Tdap 08/19/2010 completed eCW3 ([place] [facility] 03:55:22 PM [facility] Health Care) Tdap 08/19/2010 completed eCW3 ([place] [facility] 03:55:22 PM [facility] Health Care) Tdap 08/19/2010 completed eCW3 ([place] [facility] 03:55:22 PM [facility]) No Known Immunizations completed eCW2 ([facility]) No Known Immunizations completed eCW2 ([facility]) No Known Immunizations completed eCW2 ([facility]) No Known Immunizations completed eCW2 ([facility]) No Known Immunizations completed eCW2 ([facility]) No Known Immunizations completed eCW2 ([facility]) No Known Immunizations completed eCW2 ([facility]) No Known Immunizations completed eCW2 ([facility]) Medications Medication Brand Start Product Dose Route Administrative Pharmacy [facility] Indications Reaction Description Data Name Date Form [...] UNK 1.0 active Cholecalc sabina eCW3 simon 98918 2019 {tabl rol 67042 ([facility] UNIT 12:00: et} UNIT [facility] [...] UNK 1.0 active Cholecalc sabina eCW3 simon 78754 2019 {tabl rol 40493 ([facility] UNIT 12:00: et} UNIT [facility] 00 AM Health EDT Care) Cholecalcif UNK 1.0 active Cholecalc sabina eCW3 simon 31116 2019 {tabl rol 80013 ([facility] UNIT 12:00: et} UNIT [facility] 00 AM Health EDT Care) Prednisone Predni 09/12/ active PredniSO NE eCW3 10 MG Oral SONE 2020 10 MG ([place] Tablet 10 MG 12:00: [facility] PredniSONE 00 AM Health 10 MG EDT Care) Cholecalcif UNK 1.0 active Cholecalc sabina eCW3 simon 39615 2019 {tabl rol 46527 ([facility] UNIT 12:00: et} UNIT [facility] 00 AM Health EDT Care) Albuterol Albute 3.0 active Albuterol eCW3 0.83 MG/ML rol 2019 {ml_a Sulfate (2.5 ([place] Inhalant Sulfat 12:00: s_nee MG/3ML) Alia er Solution e (2.5 00 AM ded} 0.083% Health Albuterol MG/3ML EDT Care) Sulfate ) (2.5 0.083% MG/3ML) 0.083% Cholecalcif UNK 1.0 active Cholecalc sabina eCW3 simon 79966 2019 {tabl rol 60907 ([facility] UNIT 12:00: et} UNIT [facility] 00 AM Health EDT Care) Cholecalcif UNK 1.0 active Cholecalc sabina eCW3 simon 63147 2019 {tabl rol 71846 ([facility] UNIT 12:00: et} UNIT [facility] 00 AM Health EDT Care) Albuterol Albute 3.0 active Albuterol eCW3 0.83 MG/ML rol 2019 {ml_a Sulfate (2.5 ([place] Inhalant Sulfat 12:00: s_nee MG/3ML) Alia er Solution e (2.5 00 AM ded} 0.083% Health Albuterol MG/3ML EDT Care) Sulfate ) (2.5 0.083% MG/3ML) 0.083% Cholecalcif UNK 1.0 active Cholecalc sabina eCW3 simon 88042 2019 {tabl rol 28838 ([facility] UNIT 12:00: et} UNIT [facility] 00 AM Health EDT Care) Cholecalcif UNK 1.0 active Cholecalc sabina eCW3 simon 61235 2020 {tabl rol 76118 ([facility] UNIT 12:00: et} UNIT [facility] 00 AM Health EDT Care) Bacitracin Bacitr 1.0 active Bacitrac in eCW3 0.5 UNT/MG acin 2019 {appl 500 UNIT/GM ( [place] Topical 500 12:00: icati [facility] Ointment UNIT/G 00 AM on} Health Bacitracin M EDT Care) 500 UNIT/GM Cholecalcif UNK 1.0 active Cholecalc sabina eCW3 simon 05294 2019 {tabl rol 29054 ([facility] UNIT 12:00: et} UNIT [facility] 00 AM Health EDT Care) Cholecalcif UNK 1.0 active Cholecalc sabina eCW3 simon 99315 2019 {tabl rol 60338 ([facility] UNIT 12:00: et} UNIT [facility] [...] Oral 00 AM _the_ Health Tablet EST [facility] Care) e_and _allo w_to_ disso lve} Oseltamivir [...] Oral 00 AM _the_ Health Tablet EST [facility] Care) e_and _allo w_to_ disso lve} Ondansetron Ondans .0 suspend Ondans etron eCW3 4 MG etron 2020 {tabl ed 4 MG ([place] Disintegrat 4 MG 12:00: et_on [place] ing Oral 00 AM _the_ Health Tablet EST [facility] Care) e_and _allo w_to_ disso lve} Ondansetron Ondans .0 suspend Ondans etron eCW3 4 MG etron 2020 {tabl ed 4 MG ([place] Disintegrat 4 MG 12:00: et_on [facility] ing Oral 00 AM _the_ Health Tablet EST [facility] Care) e_and _allo w_to_ disso lve} Oseltamivir [...] Oral 00 AM _the_ Health Tablet EST [facility]) e_and _allo w_to_ disso lve} Ondansetron Ondans .0 suspend Ondans etron eCW3 4 MG etron 2020 {tabl ed 4 MG ([place] Disintegrat 4 MG 12:00: et_on [place] ing Oral 00 AM _the_ Health Tablet EST [facility]) e_and _allo w_to_ disso lve} Oseltamivir Oselta [...] Oral 00 AM _the_ Health Tablet EST [facility]) e_and _allo w_to_ disso lve} Ondansetron Ondans .0 suspend Ondans etron eCW3 4 MG etron 2020 {tabl ed 4 MG ([place] Disintegrat 4 MG 12:00: et_on [place] ing Oral 00 AM _the_ Health Tablet EST [facility]) e_and _allo w_to_ disso lve} Oseltamivir Oselta [...] Oral 00 AM _the_ Health Tablet EST [facility]) e_and _allo w_to_ disso lve} Ondansetron Ondans [...] Oral 00 AM _the_ Health Tablet EST [facility] Care) e_and _allo w_to_ disso lve} Ondansetron Ondans .0 suspend Ondans etron eCW3 4 MG etron 2020 {tabl ed 4 MG ([place] Disintegrat 4 MG 12:00: et_on [place] ing Oral 00 AM _the_ Health Tablet EST [facility] Care) e_and _allo w_to_ disso lve} Oseltamivir [...] Oral 00 AM _the_ Health Tablet EST [facility]) e_and _allo w_to_ disso lve} Oseltamivir [...] Oral 00 AM _the_ Health Tablet EST [facility]) e_and _allo w_to_ disso lve} Ondansetron Ondans .0 suspend Ondans etron eCW3 4 MG etron 2020 {tabl ed 4 MG ([place] Disintegrat 4 MG 12:00: et_on [place] ing Oral 00 AM _the_ Health Tablet EST [facility]) e_and _allo w_to_ disso lve} Ondansetron Ondans .0 suspend Ondans etron eCW3 4 MG etron 2019 {tabl ed 4 MG ([place] Disintegrat 4 MG 12:00: et_on [place] ing Oral 00 AM _the_ Health Tablet EST [facility]) e_and _allo w_to_ disso lve} Ondansetron Ondans .0 suspend Ondans etron eCW3 4 MG etron 2019 {tabl ed 4 MG ([place] Disintegrat 4 MG 12:00: et_on [place] ing Oral 00 AM _the_ Health Tablet EST [facility]) e_and _allo w_to_ disso lve} Oseltamivir Oselta [...] [facility] 00 [facility]_ disso lve} Ondansetron Ondans .0 suspend Ondans etron eCW3 4 MG etron 2020 {tabl ed 4 MG ([place] Disintegrat 4 MG 12:00: et_on [place] ing Oral 00 AM _the_ Health Tablet EST [facility]) e_and _allo w_to_ disso lve} Ondansetron Ondans .0 suspend Ondans etron eCW3 4 MG etron 2020 {tabl ed 4 MG ([place] Disintegrat 4 MG 12:00: et_on [place] ing Oral 00 AM _the_ Health Tablet EST [facility]) e_and _allo w_to_ disso lve} Oseltamivir Oselta [...] Oral 00 AM _the_ Health Tablet EST [facility]) e_and _allo w_to_ disso lve} Ondansetron Ondans .0 suspend Ondans etron eCW3 4 MG etron 2020 {tabl ed 4 MG ([place] Disintegrat 4 MG 12:00: et_on [place] ing Oral 00 AM _the_ Health Tablet EST [facility]) e_and _allo w_to_ disso lve} Clotrimazol Clotri [...] 14 yle 2020 [place] 14 Day ( [place] 12:00: [place] - 14 Day 00 AM Health [place] EST Care) - FreeStyle FreeSt 05/11/ active [...] [place] 14 2019 [facility] 14 Day ( [place] 12:00: [place] - Health [place] EST Care) - Diclofenac Diclof 05/11/ active Diclofen ac eCW3 Sodium 0.01 enac 2019 Sodium 1 % ([facility] MG/MG Sodium 12:00: [facility] Topical Gel 1 % 00 AM Health Diclofenac EST Care) Sodium 1 % FreeStyle FreeSt 05/11/ active FreeStyle eCW3 [place] 14 2019 [facility] 14 Day ( [place] 12:00: [place] - AM Health [place] EST Care) - Diclofenac Diclof 05/11/ active [...] [place] 14 2019 [facility] 14 Day ( [place] [facility] 12:00: [place] - AM Health [place] EST Care) - FreeStyle FreeSt 05/11/ active FreeStyle eCW3 [place] 14 2019 [place] 14 Day ( ds [place] 12:00: [place] - AM Health [place] EST Care) - FreeStyle FreeSt 05/11/ active FreeStyle eCW3 [facility] 2019 [facility] Sensor ([place] [facility] 12:00: System - [facility] - Sensor [facility] EST Care) - FreeStyle FreeSt 05/11/ active FreeStyle eCW3 [place] 14 2019 [place]ia 14 Day ( [place] 12:00: [place] - AM Health [place] EST Care) - FreeStyle FreeSt 05/11/ active FreeStyle eCW3 [place] 14 2019 [place] 14 Day ( [place] 12:00: [place] - [place] - AM Health [place] EST Care) - FreeStyle FreeSt 05/11/ active FreeStyle eCW3 [place] 14 2019 [place] Day ( [place] [facility] 12:00: [place] - AM Health [place] EST Care) - Diclofenac Diclof 05/11/ active [...] Claudia 14 yl2019 [facility] 14 Day ( [place] [facility] 12:00: [place] - [place] - AM Health [place] EST Care) - FreeStyle FreeSt 05/11/ active [...] 14 yl2019 [place] 14 Day ( ds [place] 12:00: [place] - [place] - 14 AM Health [place] EST Care) - FreeStyle FreeSt 05/11/ active FreeStyle eCW3 [place] 14 2019 [facility] 14 Day ( ds [place] 12:00: [place] - [place] - AM Health [place] EST Care) - Diclofenac Diclof 05/11/ active Diclofen ac eCW3 Sodium 0.01 enac 2019 Sodium 1 % ([facility] MG/MG Sodium 12:00: [facility] Topical Gel 1 % 00 AM Health Diclofenac EST Care) Sodium 1 % FreeStyle FreeSt 05/11/ active FreeStyle eCW3 [facility] 14 yle 2020 [facility] 14 Day ( ds [place] 12:00: [place] - [place] - 14 Day 00 AM Health [place] EST Care) - FreeStyle FreeSt 05/11/ active FreeStyle eCW3 [place] 14 2019 [facility]ia 14 Day ( [place] [facility] 12:00: [place] - [place] - Health [place] EST Care) - Diclofenac Diclof 05/11/ active Diclofen ac eCW3 Sodium 0.01 enac 2020 Sodium 1 % ([facility] MG/MG Sodium 12:00: [facility] Topical Gel 1 % AM Health Diclofenac EST Care) Sodium 1 % FreeStyle FreeSt 05/11/ active FreeStyle eCW3 [facility] 14 yl2019 [facility]ia 14 Day ( [place] [facility] 12:00: [place] - [place] - Health [place] EST Care) - Diclofenac Diclof 05/11/ active [...] FreeStyle eCW3 [place] 14 2019 Claudia ( [place] [facility] 12:00: [place] Health [place] EST Care) - Diclofenac Diclof 05/11/ active [...] Claudia 14 2019 [facility]ia 14 Day ( [place] [facility] 12:00: [place] - [place] - AM Health [place] EST Care) - FreeStyle FreeSt 05/11/ active FreeStyle eCW3 [place] 14 2019 [facility] 14 Day ( [place] [facility] 12:00: [place] - [place] - Health [place] EST Care) - FreeStyle FreeSt 05/11/ active FreeStyle eCW3 [place] 14 2019 [facility] 14 Day ( [place] [facility] 12:00: [place] - [place] - AM Health [place] EST Care) - FreeStyle FreeSt 05/11/ active FreeStyle eCW3 Claud[facility] 2019 [facility] Sensor ([place] [facility] 12:00: System - [facility] - Sensor AM Health System EST Care) - FreeStyle FreeSt 05/11/ active FreeStyle eCW3 [place] 14 2019 [facility]ia 14 Day ( [place] [facility] 12:00: [place] - [place] - AM Health [place] EST Care) - FreeStyle FreeSt 05/11/ active FreeStyle eCW3 [place] 14 2019 [facility]ia 14 Day ( [place] [facility] 12:00: [place] - [place] - AM Health [place] EST Care) - Diclofenac Diclof 05/11/ active [...] Claudia 14 2019 Claudia 14 Day ( [place] [facility] 12:00: [place] - [place] - AM Health [place] EST Care) - FreeStyle FreeSt 05/11/ active [...] yle 2020 Claudia 14 Day ( ds [place] 12:00: [place] - [place] - 14 AM Health [place] EST Care) - Diclofenac Diclof 05/11/ active [...] yle 2020 [facility] 14 Day ( ds [place] 12:00: [place] - [place] - 14 AM Health [place] EST Care) - FreeStyle FreeSt 05/11/ active [...] 14 yle 2020 Claudia 14 Day ( [place] 12:00: [place] - AM Health [place] EST Care) - Diclofenac Diclof 05/11/ active [...] 14 yle 2020 Claudia 14 Day ( [place] [facility] 12:00: [place] - AM Health [place] EST Care) - FreeStyle FreeSt 05/11/ active [...] 14 yle 2020 Claudia 14 Day ( [place] [facility] 12:00: [place] - AM Health [place] EST Care) - Diclofenac Diclof 05/11/ active Diclofen ac eCW3 Sodium 0.01 enac 2020 Sodium 1 % ([facility] MG/MG Sodium 12:00: [facility] Topical Gel 1 % AM Health Diclofenac EST Care) Sodium 1 % FreeStyle FreeSt 05/11/ active FreeStyle eCW3 [place] 14 yl 2020 [facility]ia 14 Day ( [place] [facility] 12:00: [place] - [place] - 14 Health [place] EST Care) - Diclofenac Diclof 05/11/ active [...] 14 yle 2020 Claudia 14 Day ( [place] 12:00: [place] - [place] - 14 Health [place] EST Care) - FreeStyle FreeSt 05/11/ active [...] CW3 KwikPen 100 2018 KwikPen 100 ( [place] UNIT/ML KwikPe 12:00: UNIT/ML [place] n 100 [...] Chantix eC W3 Starting 2018 ed Starting ([facility] Chris Starti 12:00: Month Chris R iver 0.5 MG X 11 ng 00 AM 0.5 MG X 11 Health & 1 MG X 42 Month EDT & 1 MG X 42 Care) Chris 0.5 MG X 11 & 1 MG X 42 Chantix Chanti 12/29/ active Chantix eCW 3 Starting 2018 Starting ([facility] Chris Starti 12:00: Month Chris R iver 0.5 MG X 11 ng 00 AM 0.5 MG X 11 Health & 1 MG X 42 Month EDT & 1 MG X 42 Care) Chris 0.5 MG X 11 & 1 MG X 42 Chantix Chanti 12/29/ suspend Chantix eC W3 Starting 2018 ed Starting ([facility] Chris Starti 12:00: Month Chris R iver 0.5 MG X 11 ng 00 AM 0.5 MG X 11 Health & 1 MG X 42 Month EDT & 1 MG X 42 Care) Chris 0.5 MG X 11 & 1 MG X 42 Chantix Chanti 12/29/ suspend Chantix eC W3 Starting 2018 ed Starting ([facility] Chris Starti 12:00: Month Chris R iver 0.5 MG X 11 ng 00 AM 0.5 MG X 11 Health & 1 MG X 42 Month EDT & 1 MG X 42 Care) Chris 0.5 MG X 11 & 1 MG X 42 Chantix Chanti 12/29/ suspend Chantix eC W3 Starting 2018 ed Starting ([facility] Chris Starti 12:00: Month Chris R iver 0.5 MG X 11 ng 00 AM 0.5 MG X 11 Health & 1 MG X 42 Month EDT & 1 MG X 42 Care) Chris 0.5 MG X 11 & 1 MG X 42 Chantix Chanti 12/29/ suspend Chantix eC W3 Starting 2018 ed Starting ([facility] Chris Starti 12:00: Month Chris R iver 0.5 MG X 11 ng 00 AM 0.5 MG X 11 Health & 1 MG X 42 Month EDT & 1 MG X 42 Care) Chris 0.5 MG X 11 & 1 MG X 42 Chantix Chanti 12/29/ suspend Chantix eC W3 Starting 2018 ed Starting ([facility] Chris Starti 12:00: Month Chris R iver 0.5 MG X 11 ng 00 AM 0.5 MG X 11 Health & 1 MG X 42 Month EDT & 1 MG X 42 Care) Chris 0.5 MG X 11 & 1 MG X 42 Chantix Chanti 12/29/ suspend Chantix eC W3 Starting 2018 ed Starting ([facility] Chris Starti 12:00: Month Chris R iver 0.5 MG X 11 ng 00 AM 0.5 MG X 11 Health & 1 MG X 42 Month EDT & 1 MG X 42 Care) Chris 0.5 MG X 11 & 1 MG X 42 Chantix Chanti 12/29/ suspend Chantix eC W3 Starting 2018 ed Starting ([facility] Chris Starti 12:00: Month Chris R iver 0.5 MG X 11 ng 00 AM 0.5 MG X 11 Health & 1 MG X 42 Month EDT & 1 MG X 42 Care) Chris 0.5 MG X 11 & 1 MG X 42 Chantix Chanti 12/29/ suspend Chantix eC W3 Starting 2018 ed Starting ([facility] Chris Starti 12:00: Month Chris R iver 0.5 MG X 11 ng 00 AM 0.5 MG X 11 Health & 1 MG X 42 Month EDT & 1 MG X 42 Care) Chris 0.5 MG X 11 & 1 MG X 42 Chantix Chanti 12/29/ suspend Chantix eC W3 Starting 2018 ed Starting ([facility] Starti 12:00: Month Chris R iver 0.5 MG X 11 ng 00 AM 0.5 MG X 11 Health & 1 MG X 42 Month EDT & 1 MG X 42 Care) Chris 0.5 MG X 11 & 1 MG X 42 Chantix Chanti 12/29/ suspend Chantix eC W3 Starting 2018 ed Starting ([facility] Starti 12:00: Month Chris R iver 0.5 MG X 11 ng 00 AM 0.5 MG X 11 Health & 1 MG X 42 Month EDT & 1 MG X 42 Care) Chris 0.5 MG X 11 & 1 MG X 42 Chantix Chanti 12/29/ suspend Chantix eC W3 Starting 2018 ed Starting ([facility] Starti 12:00: Month Chris R iver 0.5 MG X 11 ng 00 AM 0.5 MG X 11 Health & 1 MG X 42 Month EDT & 1 MG X 42 Care) Chris 0.5 MG X 11 & 1 MG X 42 Chantix Chanti 12/29/ suspend Chantix eC W3 Starting 2018 ed Starting ([facility] Starti 12:00: Month Chris R iver 0.5 MG X 11 ng 00 AM 0.5 MG X 11 Health & 1 MG X 42 Month EDT & 1 MG X 42 Care) Chris 0.5 MG X 11 & 1 MG X 42 Chantix Chanti 12/29/ suspend Chantix eC W3 Starting 2018 ed Starting ([facility] Starti 12:00: Month Chris R iver 0.5 MG X 11 ng 00 AM 0.5 MG X 11 Health & 1 MG X 42 Month EDT & 1 MG X 42 Care) Chris 0.5 MG X 11 & 1 MG X 42 Chantix Chanti 12/29/ suspend Chantix eC W3 Starting 2018 ed Starting ([facility] 12:00: Month Chris R iver 0.5 MG X 11 ng 00 AM 0.5 MG X 11 Health & 1 MG X 42 Month EDT & 1 MG X 42 Care) Chris 0.5 MG X 11 & 1 MG X 42 Chantix Chanti 12/29/ suspend Chantix eC W3 Starting 2018 ed Starting ([facility] Starti 12:00: Month Chris R iver 0.5 MG X 11 ng 00 AM 0.5 MG X 11 Health & 1 MG X 42 Month EDT & 1 MG X 42 Care) Chris 0.5 MG X 11 & 1 MG X 42 Chantix Chanti 12/29/ suspend Chantix eC W3 Starting 2018 ed Starting ([facility] Starti 12:00: Month Chris R iver 0.5 MG X 11 ng 00 AM 0.5 MG X 11 Health & 1 MG X 42 Month EDT & 1 MG X 42 Care) Chris 0.5 MG X 11 & 1 MG X 42 Chantix Chanti 12/29/ suspend Chantix eC W3 Starting 2018 ed Starting ([facility] Starti 12:00: Month Chris R iver 0.5 MG X 11 ng 00 AM 0.5 MG X 11 Health & 1 MG X 42 Month EDT & 1 MG X 42 Care) Chris 0.5 MG X 11 & 1 MG X 42 Chantix Chanti 12/29/ suspend Chantix eC W3 Starting 2018 ed Starting ([facility] Starti 12:00: Month Chris R iver 0.5 MG X 11 ng 00 AM 0.5 MG X 11 Health & 1 MG X 42 Month EDT & 1 MG X 42 Care) Chris 0.5 MG X 11 & 1 MG X 42 Chantix Chanti 12/29/ suspend Chantix eC W3 Starting 2018 ed Starting ([facility] Chris Starti 12:00: Month Chris R iver 0.5 MG X 11 ng 00 AM 0.5 MG X 11 Health & 1 MG X 42 Month EDT & 1 MG X 42 Care) Chris 0.5 MG X 11 & 1 MG X 42 Chantix Chanti 12/29/ suspend Chantix eC W3 Starting 2018 ed Starting ([facility] Chris Starti 12:00: Month Chris R iver 0.5 MG X 11 ng 00 AM 0.5 MG X 11 Health & 1 MG X 42 Month EDT & 1 MG X 42 Care) Chris 0.5 MG X 11 & 1 MG X 42 Chantix Chanti 12/29/ suspend Chantix eC W3 Starting 2018 ed Starting ([facility] Chris Starti 12:00: Month Chris R iver 0.5 MG X 11 ng 00 AM 0.5 MG X 11 Health & 1 MG X 42 Month EDT & 1 MG X 42 Care) Chris 0.5 MG X 11 & 1 MG X 42 Chantix Chanti 12/29/ suspend Chantix eC W3 Starting 2018 ed Starting ([facility] Chris Starti 12:00: Month Chris R iver 0.5 MG X 11 ng 00 AM 0.5 MG X 11 Health & 1 MG X 42 Month EDT & 1 MG X 42 Care) Chris 0.5 MG X 11 & 1 MG X 42 Chantix Chanti 09/13/ suspend Chantix eC W3 Starting x 2018 ed Starting ([facility] Chris Starti 12:00: Month Chris R iver 0.5 MG X 11 ng 00 AM 0.5 MG X 11 Health & 1 MG X 42 Month EDT & 1 MG X 42 Care) Chris 0.5 MG X 11 & 1 MG X 42 Chantix Chanti 12/29/ suspend Chantix eC W3 Starting x 2018 ed Starting ([facility] Chris Starti 12:00: Month Chris R iver 0.5 MG X 11 ng 00 AM 0.5 MG X 11 Health & 1 MG X 42 Month EDT & 1 MG X 42 Care) Chris 0.5 MG X 11 & 1 MG X 42 Chantix Chanti 12/29/ suspend Chantix eC W3 Starting x 2018 ed Starting ([facility] Chris Starti 12:00: Month Chris R iver 0.5 MG X 11 ng 00 AM 0.5 MG X 11 Health & 1 MG X 42 Month EDT & 1 MG X 42 Care) Chris 0.5 MG X 11 & 1 MG X 42 Chantix Chanti 12/29/ suspend Chantix eC W3 Starting x 2018 ed Starting ([facility] Chris Starti 12:00: Month Chris R iver 0.5 MG X 11 ng 00 AM 0.5 MG X 11 Health & 1 MG X 42 Month EDT & 1 MG X 42 Care) Chris 0.5 MG X 11 & 1 MG X 42 Chantix Chanti 12/29/ 1.0 active Chantix eCW 3 Continuing x 2018 {tabl Continuing ([facility] Chris 1 Contin 12:00: et} Month Chris 1 [place] MG uing 00 AM MG Health Month EDT Care) Chris 1 MG Walker - Walker 11/06/ suspend Walker - eCW3 - 2018 ed ([place] 12:00: [place] 00 AM Health EDT Care) Blood Blood 11/06/ active Blood eCW3 Pressure Pressu 2019 Pressure ([facility] on Monitor - re 12:00: Monitor [...] suspend Nicotine eCW 3 Nicotine ne 2018 {[facility] ed Step 3 7 ([place] [...] suspend Nicotine eCW 3 Nicotine ne 2018 {[facility] ed Step 3 7 ([place] [...] suspend Nicotine eCW 3 Nicotine ne 2018 {[facility] ed Step 3 7 ([place] [...] suspend Nicotine eCW 3 Nicotine ne 2018 {[facility] ed Step 3 7 ([place] [...] suspend Nicotine eCW 3 Nicotine ne 2018 {[facility] ed Step 3 7 ([place] 0.292 MG/HR Step 3 12:00: h_to_ MG/24HR [place] Transdermal 7 00 AM skin} Health Patch MG/24H EDT Care) Nicotine R Step 3 7 MG/24HR 24 HR Nicoti 1.0 suspend Nicotine eCW 3 Nicotine ne 2018 {[facility] ed Step 3 7 ([place] [...] suspend Nicotine eCW 3 Nicotine ne 2018 {[facility] ed Step 3 7 ([place] [...] suspend Nicotine eCW 3 Nicotine ne 2018 {[facility] ed Step 3 7 ([place] [...] suspend Nicotine eCW 3 Nicotine ne 2018 {[facility] ed Step 3 7 ([place] [...] suspend Nicotine eCW 3 Nicotine ne 2018 {[facility] ed Step 3 7 ([place] 0.292 MG/HR Step 3 12:00: h_to_ MG/24HR [place] Transdermal 7 00 AM skin} Health Patch MG/24H EDT Care) Nicotine R Step 3 7 MG/24HR 24 HR Nicoti 1.0 suspend Nicotine eCW 3 Nicotine ne 2018 {[facility] ed Step 3 7 ([place] 0.292 MG/HR Step 3 12:00: h_to_ MG/24HR [place] Transdermal 7 00 AM skin} Health Patch MG/24H EDT Care) Nicotine R Step 3 7 MG/24HR 24 HR Nicoti 1.0 suspend Nicotine eCW 3 Nicotine ne 2018 {[facility] ed Step 3 7 ([place] 0.292 MG/HR Step 3 12:00: h_to_ MG/24HR [place] Transdermal 7 00 AM skin} Health Patch MG/24H EDT Care) Nicotine R Step 3 7 MG/24HR 24 HR Nicoti .0 suspend Nicotine eCW 3 Nicotine ne 2018 {[facility] ed Step 3 7 ([place] 0.292 MG/HR Step 3 12:00: h_to_ MG/24HR [place] Transdermal 7 00 AM skin} Health Patch MG/24H EDT Care) Nicotine R Step 3 7 MG/24HR 24 HR Nicoti .0 suspend Nicotine eCW 3 Nicotine ne 2018 {[facility] ed Step 3 7 ([place] [...] suspend Nicotine eCW 3 Nicotine ne 2018 {[facility] ed Step 3 7 ([place] 0.292 MG/HR Step 3 12:00: h_to_ MG/24HR [place] Transdermal 7 00 AM skin} Health Patch MG/24H EDT Care) Nicotine R Step 3 7 MG/24HR 24 HR Nicoti 1.0 suspend Nicotine eCW 3 Nicotine ne 2018 {[facility] ed Step 3 7 ([place] 0.292 MG/HR Step 3 12:00: h_to_ MG/24HR [place] Transdermal 7 00 AM skin} Health Patch MG/24H EDT Care) Nicotine R Step 3 7 MG/24HR 24 HR Nicoti 1.0 suspend Nicotine eCW 3 Nicotine ne 2018 {[facility] [facility] ed Step 3 7 ([place] [...] suspend Nicotine eCW 3 Nicotine ne 2018 {[facility] ed Step 3 7 ([place] [...] suspend Nicotine eCW 3 Nicotine ne 2018 {[facility] ed Step 3 7 ([place] [...] suspend Nicotine eCW 3 Nicotine ne 2018 {[facility] ed Step 3 7 ([place] [...] suspend Nicotine eCW 3 Nicotine ne 2018 {[facility] ed Step 3 7 ([place] [...] suspend Nicotine eCW 3 Nicotine ne 2018 {[facility] ed Step 3 7 ([place] [...] suspend Nicotine eCW 3 Nicotine ne 2018 {[facility] ed Step 3 7 ([place] [...] suspend Nicotine eCW 3 Nicotine ne 2019 {[facility] ed Step 3 7 ([place] 0.292 MG/HR Step 3 12:00: h_to_ MG/24HR [place] Transdermal 7 00 AM skin} Health Patch MG/24H EDT Care) Nicotine R Step 3 7 MG/24HR 24 HR Nicoti 1.0 suspend Nicotine eCW 3 Nicotine ne 2018 {[facility] ed Step 3 7 ([place] [...] Back eCW3 Brace/Suppo Back 2019 ed Brace/Suppor ([place] rt Pad - Brace/ 12:00: t Pad - [place] r Suppor 00 AM Health t Pad EDT Care) - Lumbar Back Lumbar 10/05/ active Lumbar Back eCW3 Brace/Suppo Back 2019 Brace/Suppor ([place] rt Pad - Brace/ 12:00: t Pad - [place] Suppor 00 AM Health t Pad EDT Care) - Lumbar Back Lumbar 10/05/ suspend Lumbar Back eCW3 Brace/Suppo Back 2019 ed Brace/Suppor ([place] rt Pad - Brace/ 12:00: t Pad [...] 40 mg 2017 {tabl ed 40 mg ([place] 12:00: et} [place] 00 AM Health EST [...] Oral SONE 2014 {tabl ed 20 mg ([place] Tablet 20 mg 12:00: et_wi [place] PredniSONE [...] et} [place] Digoxin 250 00 AM Health [facility] EDT Care) 3 ML NovoLo 09/11/ active [...] et} [place] Digoxin 250 00 AM Health [facility] EDT Care) Digoxin Digoxi 1.0 active Digoxin 250 eCW3 0.25 MG n 250 2014 {tabl MCG ([place] Oral Tablet MCG 12:00: et} [place] Digoxin 250 00 AM Health [facility] EDT Care) 3 ML NovoLo 09/11/ active [...] et} [place] Digoxin 250 00 AM Health [facility] EDT Care) 3 ML NovoLo 09/11/ active [...] 12:00: et} [place] Digoxin 250 00 AM [facility] EDT Care) Digoxin Digoxi 1.0 active Digoxin 250 eCW3 0.25 MG n 250 2014 {tabl MCG ([place] Oral Tablet MCG 12:00: et} [place] Digoxin 250 00 AM [facility] EDT Care) 3 ML NovoLo 09/11/ active [...] 12:00: et} [place] Digoxin 250 00 AM [facility] EDT Care) Digoxin Digoxi 1.0 active Digoxin 250 eCW3 0.25 MG n 250 2014 {tabl MCG ([place] Oral Tablet MCG 12:00: et} [place] Digoxin 250 00 AM [facility] EDT Care) 3 ML NovoLo 09/11/ active [...] 12:00: et} [place] Digoxin 250 00 AM [facility] EDT Care) Digoxin Digoxi 1.0 active Digoxin 250 eCW3 0.25 MG n 250 2014 {tabl MCG ([place] Oral Tablet MCG 12:00: et} [place] Digoxin 250 00 AM [facility] EDT Care) 3 ML NovoLo 09/11/ active [...] 12:00: et} [place] Digoxin 250 00 AM [facility] EDT Care) 3 ML NovoLo 09/11/ active [...] 12:00: et} [place] Digoxin 250 00 AM [facility] EDT Care) Digoxin Digoxi 1.0 active Digoxin 250 eCW3 0.25 MG n 250 2014 {tabl MCG ([place] Oral Tablet MCG 12:00: et} [place] Digoxin 250 00 AM [facility] EDT Care) Digoxin Digoxi 1.0 active Digoxin 250 eCW3 0.25 MG n 250 2014 {tabl MCG ([place] Oral Tablet MCG 12:00: et} [place] Digoxin 250 00 AM [facility] EDT Care) 3 ML NovoLo 09/11/ active [...] 12:00: et} [place] Digoxin 250 00 AM [facility] EDT Care) 3 ML NovoLo 09/11/ active [...] 12:00: et} [place] Digoxin 250 00 AM [facility] EDT Care) Digoxin Digoxi 1.0 active Digoxin 250 eCW3 0.25 MG n 250 2014 {tabl MCG ([place] Oral Tablet MCG 12:00: et} [place] Digoxin 250 00 AM [facility] EDT Care) Digoxin Digoxi 1.0 active Digoxin 250 eCW3 0.25 MG n 250 2014 {tabl MCG ([place] Oral Tablet MCG 12:00: et} [place] Digoxin 250 00 AM [facility] EDT Care) Digoxin Digoxi 1.0 active Digoxin 250 eCW3 0.25 MG n 250 2014 {tabl MCG ([place] Oral Tablet MCG 12:00: et} [place] Digoxin 250 00 AM [facility] EDT Care) Digoxin Digoxi 1.0 active Digoxin 250 eCW3 0.25 MG n 250 2014 {tabl MCG ([place] Oral Tablet MCG 12:00: et} [place] Digoxin 250 00 AM [facility] EDT Care) Digoxin Digoxi 1.0 active Digoxin 250 eCW3 0.25 MG n 250 2014 {tabl MCG ([place] Oral Tablet MCG 12:00: et} [place] Digoxin 250 00 AM [facility] EDT Care) Digoxin Digoxi 1.0 active Digoxin 250 eCW3 0.25 MG n 250 2014 {tabl MCG ([place] Oral Tablet MCG 12:00: et} [place] Digoxin 250 00 AM [facility] EDT Care) 3 ML NovoLo 09/11/ active [...] 12:00: et} [place] Digoxin 250 00 AM [facility] EDT Care) 3 ML NovoLo 09/11/ active [...] 12:00: et} [place] Digoxin 250 00 AM [facility] EDT Care) Digoxin Digoxi 1.0 active Digoxin 250 eCW3 0.25 MG n 250 2014 {tabl MCG ([place] Oral Tablet MCG 12:00: et} [place] Digoxin 250 00 AM [facility] EDT Care) 3 ML NovoLo 09/11/ active [...] 12:00: et} [place] Digoxin 250 00 AM [facility] EDT Care) 3 ML NovoLo 09/11/ active [...] 12:00: et} [place] Digoxin 250 00 AM [facility] EDT Care) 3 ML NovoLo 09/11/ active [...] 12:00: et} [place] Digoxin 250 00 AM [facility] EDT Care) Digoxin Digoxi 09/11/ 1.0 active Digoxin 250 eCW3 0.25 MG n 250 2014 {tabl MCG ([place] Oral Tablet MCG 12:00: et} [place] Digoxin 250 00 AM Health MCG EDT Care) Digoxin Digoxi 09/11/ 1.0 active Digoxin 250 eCW3 0.25 MG n 250 2014 {tabl MCG ([place] Oral Tablet MCG 12:00: et} [place] Digoxin 250 00 AM [facility] EDT Care) Digoxin Digoxi 09/11/ active 1 tablet eC W2 0.25 MG n 250 2014 ([place] Oral Tablet MCG 12:00: [place] Digoxin 250 00 AM [facility] EDT Care) 3 ML NovoLo 09/11/ active [...] 40 MG 12:00: et} [place] 00 AM [facility] EDT Care) Furosemide Furose 1.0 active Furosemi de eCW3 40 MG Oral mide 2014 {tabl 40 MG ([place] Tablet 40 MG 12:00: et} [place] 00 AM Health EDT Care) Furosemide Furose 1.0 active Furosemi de eCW3 40 MG Oral mide 2014 {tabl 40 MG ([place] Tablet 40 MG 12:00: et} [place] 00 AM [facility] EDT Care) Furosemide Furose 1.0 active Furosemi de eCW3 40 MG Oral mide 2014 {tabl 40 MG ([place] Tablet 40 MG 12:00: et} [place] 00 AM [facility] EDT Care) 3 ML Lantus 08/07/ active Lantus eCW3 Insulin SoloSt 2015 SoloStar 100 ([place] ar 100 12:00: UNIT/ML Rive r 100 UNT/ML UNIT/M 00 AM [facility] EDT Care) Injector [Lantus] Lantus SoloStar 100 UNIT/ML Furosemide Furose 1.0 active Furosemi de eCW3 40 MG Oral mide 2014 {tabl 40 MG ([place] Tablet 40 MG 12:00: et} [place] 00 AM [facility] EDT Care) Furosemide Furose .0 active Furosemi de eCW3 40 MG Oral mide 2014 {tabl 40 MG ([place] Tablet 40 MG 12:00: et} [place] 00 AM [facility] EDT Care) Furosemide Furose 1.0 active Furosemi de eCW3 20 MG Oral mide 2014 {tabl 20 mg ([place] Tablet 20 mg 12:00: et} [place] Furosemide 00 AM [facility] 20 EDT Care) Furosemide Furose 1.0 active Furosemi de eCW3 40 MG Oral mide 2014 {tabl 40 MG ([place] Tablet 40 MG 12:00: et} [place] 00 AM [facility] EDT Care) Furosemide Furose 1.0 active Furosemi de eCW3 40 MG Oral mide 2014 {tabl 40 MG ([place] Tablet 40 MG 12:00: et} [place] 00 AM [facility] EDT Care) Aspirin 81 Aspiri 1.0 active Aspirin 81 eCW3 MG Chewable n 81 2014 {tabl mg ([place] Tablet mg 12:00: et} [place] Aspirin 81 00 AM [facility] EDT Care) Furosemide Furose 1.0 active Furosemi de eCW3 40 MG Oral mide 2014 {tabl 40 MG ([place] Tablet 40 MG 12:00: et} [place] 00 AM [facility] EDT Care) Aspirin 81 Aspiri 1.0 active Aspirin 81 eCW3 MG Chewable n 81 2014 {tabl mg ([place] Tablet mg 12:00: et} [place] Aspirin 81 00 AM [facility] EDT Care) Furosemide Furose 1.0 active Furosemi de eCW3 40 MG Oral mide 2014 {tabl 40 MG ([place] Tablet 40 MG 12:00: et} [place] 00 [facility] EDT Care) Furosemide Furose 1.0 active Furosemi de eCW3 20 MG Oral mide 2014 {tabl 20 mg ([place] Tablet 20 mg 12:00: et} [place] Furosemide 00 AM [facility] 20 EDT Care) Aspirin 81 Aspiri 08/07/ active 1 tablet eCW2 MG Chewable n 81 2014 ([place] Tablet mg 12:00: [place] Aspirin 81 00 AM [facility] EDT Care) Furosemide Furose 1.0 active Furosemi de eCW3 40 MG Oral mide 2014 {tabl 40 MG ([place] Tablet 40 MG 12:00: et} [facility] EDT Care) Furosemide Furose 1.0 active Furosemi de eCW3 40 MG Oral mide 2014 {tabl 40 MG ([place] Tablet 40 MG 12:00: et} [facility] EDT Care) Furosemide Furose 1.0 active Furosemi de eCW3 40 MG Oral mide 2014 {tabl 40 MG ([place] Tablet 40 MG 12:00: et} [place] 00 [facility] EDT Care) Furosemide Furose 1.0 active Furosemi de eCW3 40 MG Oral mide 2014 {tabl 40 MG ([place] Tablet 40 MG 12:00: et} [facility] EDT Care) 3 ML Lantus 08/07/ active Lantus eCW3 Insulin SoloSt 2015 SoloStar 100 ([place] ar 100 12:00: unit/ml R[place] 100 UNT/ML unit/m 00 [facility] EDT [facility]) Injector [Lantus] Lantus SoloStar 100 unit/ml Furosemide Furose 1.0 active Furosemi de eCW3 40 MG Oral mide 2014 {tabl 40 MG ([place] Tablet 40 MG 12:00: et} [facility] EDT Care) Furosemide Furose 1.0 active Furosemi de eCW3 40 MG Oral mide 2014 {tabl 40 MG ([place] Tablet 40 MG 12:00: et} [place] [facility] EDT Care) Furosemide Furose 1.0 active Furosemi de eCW3 40 MG Oral mide 2014 {tabl 40 MG ([place] Tablet 40 MG 12:00: et} [place] [facility] EDT Care) Aspirin 81 Aspiri 1.0 [...] ([place] Tablet 40 MG 12:00: et} [place] [facility] EDT Care) Furosemide Furose 1.0 active Furosemi de eCW3 40 MG Oral mide 2014 {tabl 40 MG ([place] Tablet 40 MG 12:00: et} [place] [facility] EDT Care) Furosemide Furose 1.0 active Furosemi de eCW3 40 MG Oral mide 2014 {tabl 40 MG ([place] Tablet 40 MG 12:00: et} [place] [facility] EDT Care) Furosemide Furose 08/07/ active 1 tablet eCW2 20 MG Oral mide 2014 ([place] Tablet 20 mg 12:00: [place] Furosemide 00 AM Health 20 mg EDT Care) Furosemide Furose 1.0 active Furosemi de eCW3 40 MG Oral mide 2014 {tabl 40 MG ([place] Tablet 40 MG 12:00: et} [facility] EDT Care) Furosemide Furose 1.0 active Furosemi de eCW3 40 MG Oral mide 2014 {tabl 40 MG ([place] Tablet 40 MG 12:00: et} [facility] EDT Care) Furosemide Furose 04/22/ 1.0 active Furosemi de eCW3 40 MG Oral mide 2014 {tabl 40 MG ([place] Tablet 40 MG 12:00: et} [place] AM [facility] EDT Care) Furosemide Furose 1.0 active Furosemi de eCW3 40 MG Oral mide 2014 {tabl 40 MG ([place] Tablet 40 MG 12:00: et} [place] AM [facility] EDT Care) Furosemide Furose 1.0 active Furosemi de eCW3 40 MG Oral mide 2014 {tabl 40 MG ([place] Tablet 40 MG 12:00: et} [place] AM [facility] EDT Care) Furosemide Furose 1.0 active Furosemi de eCW3 40 MG Oral mide 2014 {tabl 40 MG ([place] Tablet 40 MG 12:00: et} [place] [facility] EDT Care) 3 ML Lantus 08/07/ active Lantus eCW3 Insulin SoloSt 2014 SoloStar 100 ([place] 100 12:00: unit/ml R[place] 100 UNT/ML unit/m [facility] EDT [facility]) Injector [Lantus] Lantus SoloStar 100 unit/ml Furosemide Furose 1.0 active Furosemi de eCW3 40 MG Oral mide 2014 {tabl 40 MG ([place] Tablet 40 MG 12:00: et} [place] [facility] EDT Care) Furosemide Furose 1.0 active Furosemi de eCW3 40 MG Oral mide 2014 {tabl 40 MG ([place] Tablet 40 MG 12:00: et} [place] [facility] EDT Care) 3 ML Lantus 08/07/ active Lantus eCW3 Insulin SoloSt 2014 SoloStar 100 ([place] 100 12:00: unit/ml R[place] 100 UNT/ML unit/m 00 AM [facility] EDT [facility]) Injector [Lantus] Lantus SoloStar 100 unit/ml Furosemide Furose 1.0 active Furosemi de eCW3 40 MG Oral mide 2014 {tabl 40 MG ([place] Tablet 40 MG 12:00: et} [place] AM [facility] EDT Care) 3 ML Lantus 08/07/ active [...] Ipratropium [facility] 00 AM MG/3ML [facility] [place] 0.[facility]2. EDT Care) 0.167 MG/ML 5 (3) Inhalant MG/3ML Solution Ipratropium -Albuterol 0.5-2.5 (3) MG/3ML Albuterol Ipratr 07/10/ 3.0 suspend Ipratrop ium- eCW3 0.833 MG/ML opium- 2014 {ml} ed Albuterol ( [place] / [place] 12:00: 0.5-2.5 (3) [place] Ipratropium rol 00 AM MG/3ML [facility] [place] 0.5-2. EDT Care) 0.167 MG/ML 5 (3) Inhalant MG/3ML Solution Ipratropium -Albuterol 0.5-2.5 (3) MG/3ML Albuterol Ipratr 07/10/ 3.0 suspend Ipratrop ium- eCW3 0.833 MG/ML opium- 2014 {ml} ed Albuterol ( [place] / [place] 12:00: 0.5-2.5 (3) [place] Ipratropium rol 00 AM MG/3ML [facility] [place] 0.5-2. EDT Care) 0.167 MG/ML 5 (3) Inhalant MG/3ML Solution Ipratropium -Albuterol 0.5-2.5 (3) MG/3ML Albuterol Ipratr 07/10/ suspend 3 ml eCW 2 0.833 MG/ML opium- 2014 ed ([place] / [place] 12:00: [place] Ipratropium rol 00 AM [facility] [place] 0.5-2. EDT Care) 0.167 MG/ML 5 (3) Inhalant MG/3ML Solution Ipratropium -Albuterol 0.5-2.5 (3) MG/3ML Albuterol Ipratr 07/10/ 3.0 suspend Ipratrop ium- eCW3 0.833 MG/ML opium- 2014 {ml} ed Albuterol ( [place] / [place] 12:00: 0.5-2.5 (3) [place] Ipratropium rol 00 AM MG/3ML [facility] [place] 0.5-2. EDT Care) 0.167 MG/ML 5 (3) Inhalant MG/3ML Solution Ipratropium -Albuterol 0.5-2.5 (3) MG/3ML Albuterol Ipratr 07/10/ 3.0 suspend Ipratrop ium- eCW3 0.833 MG/ML opium- 2014 {ml} ed Albuterol ( [place] / [place] 12:00: 0.5-2.5 (3) [place] Ipratropium rol 00 AM MG/3ML [facility] [place] 0.5-2. EDT Care) 0.167 MG/ML 5 (3) Inhalant MG/3ML Solution Ipratropium -Albuterol 0.5-2.5 (3) MG/3ML Albuterol Ipratr 07/10/ 3.0 suspend Ipratrop ium- eCW3 0.833 MG/ML opium- 2014 {ml} ed Albuterol ( [place] / [place] 12:00: 0.5-2.5 (3) [place] Ipratropium rol 00 AM MG/3ML [facility] [place] 0.5-2. EDT Care) 0.167 MG/ML 5 (3) Inhalant MG/3ML Solution Ipratropium -Albuterol 0.5-2.5 (3) MG/3ML Albuterol Ipratr 07/10/ 3.0 suspend Ipratrop ium- eCW3 0.833 MG/ML opium- 2014 {ml} ed Albuterol ( [place] / [place] 12:00: 0.5-2.5 (3) [place] r Ipratropium rol 00 AM MG/3ML [facility] [place] 0.5-2. EDT Care) 0.167 MG/ML 5 (3) Inhalant MG/3ML Solution Ipratropium -Albuterol 0.5-2.5 (3) MG/3ML Albuterol Ipratr // 3.0 suspend Ipratrop ium- eCW3 0.833 MG/ML opium- 2015 {ml} ed Albuterol ( [place] / [place] 12:00: 0.5-2.5 (3) [place] [place] Ipratropium rol 00 AM MG/3ML [facility] [place] 0.5-2. EDT Care) 0.167 MG/ML 5 (3) Inhalant MG/3ML Solution Ipratropium -Albuterol 0.5-2.5 (3) MG/3ML Albuterol Ipratr 07/10/ 3.0 suspend Ipratrop ium- eCW3 0.833 MG/ML opium- 2014 {ml} ed Albuterol ( [place] / [place] 12:00: 0.5-2.5 (3) [place] Ipratropium rol 00 AM MG/3ML [facility] [place] 0.5-2. EDT Care) 0.167 MG/ML 5 (3) Inhalant MG/3ML Solution Ipratropium -Albuterol 0.5-2.5 (3) MG/3ML Albuterol Ipratr 07/10/ 3.0 suspend Ipratrop ium- eCW3 0.833 MG/ML opium- 2014 {ml} ed Albuterol ( [place] / [place] 12:00: 0.5-2.5 (3) [place] Ipratropium rol 00 AM MG/3ML [facility] [place] 0.5-2. EDT Care) 0.167 MG/ML 5 (3) Inhalant MG/3ML Solution Ipratropium -Albuterol 0.5-2.5 (3) MG/3ML Albuterol Ipratr 25/ 3.0 suspend Ipratrop ium- eCW3 0.833 MG/ML opium- 2014 {ml} ed Albuterol ( [place] / [place] 12:00: 0.5-2.5 (3) [place] [place] Ipratropium rol 00 AM MG/3ML [facility] [place] 0.5-2. EDT Care) 0.167 MG/ML 5 (3) Inhalant MG/3ML Solution Ipratropium -Albuterol 0.5-2.5 (3) MG/3ML Albuterol Ipratr /25/ 3.0 suspend Ipratrop ium- eCW3 0.833 MG/ML opium- 2014 {ml} ed Albuterol ( [place] / [place] 12:00: 0.5-2.5 (3) [place] [place] Ipratropium rol 00 AM MG/3ML [facility] [place] 0.5-2. EDT Care) 0.167 MG/ML 5 (3) Inhalant MG/3ML Solution Ipratropium -Albuterol 0.5-2.5 (3) MG/3ML Albuterol Ipratr 07/10/ 3.0 suspend Ipratrop ium- eCW3 0.833 MG/ML opium- 2014 {ml} ed Albuterol ( [place] / [place] 12:00: 0.5-2.5 (3) [place] [place] Ipratropium rol 00 AM MG/3ML [facility] [place] 0.5-2. EDT Care) 0.167 MG/ML 5 (3) Inhalant MG/3ML Solution Ipratropium -Albuterol 0.5-2.5 (3) MG/3ML Albuterol Ipratr 07/10/ 3.0 suspend Ipratrop ium- eCW3 0.833 MG/ML opium- 2014 {ml} ed Albuterol ( [place] / [place] 12:00: 0.5-2.5 (3) [place] [place] Ipratropium rol 00 AM MG/3ML [facility] [place] 0.5-2. EDT Care) 0.167 MG/ML 5 (3) Inhalant MG/3ML Solution Ipratropium -Albuterol 0.5-2.5 (3) MG/3ML Albuterol Ipratr 25/ 3.0 suspend Ipratrop ium- eCW3 0.833 MG/ML opium- 2014 {ml} ed Albuterol ( [place] / [place] 12:00: 0.5-2.5 (3) Rive r Ipratropium rol 00 AM MG/3ML [facility] [place] 0.5-2. EDT Care) 0.167 MG/ML 5 (3) Inhalant MG/3ML Solution Ipratropium -Albuterol 0.5-2.5 (3) MG/3ML Albuterol Ipratr 03/25/ 3.0 suspend Ipratrop ium- eCW3 0.833 MG/ML opium- 2014 {ml} ed Albuterol ( [place] / [place] 12:00: 0.5-2.5 (3) R[facility] r Ipratropium rol 00 AM MG/3ML [facility] [place] 0.5-2. EDT Care) 0.167 MG/ML 5 (3) Inhalant MG/3ML Solution Ipratropium -Albuterol 0.5-2.5 (3) MG/3ML Albuterol Ipratr 07/10/ 3.0 suspend Ipratrop ium- eCW3 0.833 MG/ML opium- 2014 {ml} ed Albuterol ( [place] / [place] 12:00: 0.5-2.5 (3) [place] [place] Ipratropium rol 00 AM MG/3ML [facility] [place] 0.5-2. EDT Care) 0.167 MG/ML 5 (3) Inhalant MG/3ML Solution Ipratropium -Albuterol 0.5-2.5 (3) MG/3ML Albuterol Ipratr 07/10/ 3.0 suspend Ipratrop ium- eCW3 0.833 MG/ML opium- 2014 {ml} ed Albuterol ( [place] / [place] 12:00: 0.5-2.5 (3) Rive r Ipratropium rol 00 AM MG/3ML [facility] [place] 0.5-2. EDT Care) 0.167 MG/ML 5 (3) Inhalant MG/3ML Solution Ipratropium -Albuterol 0.5-2.5 (3) MG/3ML Albuterol Ipratr 03/25/ 3.0 suspend Ipratrop ium- eCW3 0.833 MG/ML opium- 2014 {ml} ed Albuterol ( [place] / [place] 12:00: 0.5-2.5 (3) Rive r Ipratropium rol 00 AM MG/3ML [facility] [place] 0.5-2. EDT Care) 0.167 MG/ML 5 (3) Inhalant MG/3ML Solution Ipratropium -Albuterol 0.5-2.5 (3) MG/3ML Albuterol Ipratr 03/25/ 3.0 suspend Ipratrop ium- eCW3 0.833 MG/ML opium- 2014 {ml} ed Albuterol ( [place] / [place] 12:00: 0.5-2.5 (3) Rive r Ipratropium rol 00 AM MG/3ML [facility] [place] 0.5-2. EDT Care) 0.167 MG/ML 5 (3) Inhalant MG/3ML Solution Ipratropium -Albuterol 0.5-2.5 (3) MG/3ML Albuterol Ipratr 07/10/ 3.0 suspend Ipratrop ium- eCW3 0.833 MG/ML opium- 2014 {ml} ed Albuterol ( [place] / [place] 12:00: 0.5-2.5 (3) Rive r Ipratropium rol 00 AM MG/3ML [facility] [place] 0.5-2. EDT Care) 0.167 MG/ML 5 (3) Inhalant MG/3ML Solution Ipratropium -Albuterol 0.5-2.5 (3) MG/3ML Albuterol Ipratr 25/ 3.0 suspend Ipratrop ium- eCW3 0.833 MG/ML opium- 2014 {ml} ed Albuterol ( [place] / [place] 12:00: 0.5-2.5 (3) Rive r Ipratropium rol 00 AM MG/3ML [facility] [place] 0.5-2. EDT Care) 0.167 MG/ML 5 (3) Inhalant MG/3ML Solution Ipratropium -Albuterol 0.5-2.5 (3) MG/3ML Albuterol Ipratr /25/ 3.0 suspend Ipratrop ium- eCW3 0.833 MG/ML opium- 2014 {ml} ed Albuterol ( [place] / [place] 12:00: 0.5-2.5 (3) Rive r Ipratropium rol 00 AM MG/3ML [facility] [place] 0.5-2. EDT Care) 0.167 MG/ML 5 (3) Inhalant MG/3ML Solution Ipratropium -Albuterol 0.5-2.5 (3) MG/3ML Albuterol Ipratr /25/ 3.0 suspend Ipratrop ium- eCW3 0.833 MG/ML opium- 2014 {ml} ed Albuterol ( [place] / [place] 12:00: 0.5-2.5 (3) Rive r Ipratropium rol 00 AM MG/3ML [facility] [place] 0.5-2. EDT Care) 0.167 MG/ML 5 (3) Inhalant MG/3ML Solution Ipratropium -Albuterol 0.5-2.5 (3) MG/3ML Albuterol Ipratr 07/10/ 3.0 suspend Ipratrop ium- eCW3 0.833 MG/ML opium- 2014 {ml} ed Albuterol ( [place] / [place] 12:00: 0.5-2.5 (3) Rive r Ipratropium rol 00 AM MG/3ML [facility] [place] 0.5-2. EDT Care) 0.167 MG/ML 5 (3) Inhalant MG/3ML Solution Ipratropium -Albuterol 0.5-2.5 (3) MG/3ML Albuterol Ipratr 07/10/ 3.0 suspend Ipratrop ium- eCW3 0.833 MG/ML opium- 2014 {ml} ed Albuterol ( [place] / [place] 12:00: 0.5-2.5 (3) Rive r Ipratropium rol 00 AM MG/3ML [facility] [place] 0.5-2. EDT Care) 0.167 MG/ML 5 (3) Inhalant MG/3ML Solution Ipratropium -Albuterol 0.5-2.5 (3) MG/3ML Albuterol Ipratr 25/ 3.0 suspend Ipratrop ium- eCW3 0.833 MG/ML opium- 2015 {ml} ed Albuterol ( [place] / [place] 12:00: 0.5-2.5 (3) Rive r Ipratropium rol 00 AM MG/3ML [facility] [place] 0.5-2. EDT Care) 0.167 MG/ML 5 (3) Inhalant MG/3ML Solution Ipratropium -Albuterol 0.5-2.5 (3) MG/3ML Albuterol Ipratr /25/ 3.0 suspend Ipratrop ium- eCW3 0.833 MG/ML opium- 2015 {ml} ed Albuterol ( [place] / [place] 12:00: 0.5-2.5 (3) Rive r Ipratropium rol 00 AM MG/3ML [facility] [place] 0.5-2. EDT Care) 0.167 MG/ML 5 (3) Inhalant MG/3ML Solution Ipratropium -Albuterol 0.5-2.5 (3) MG/3ML Albuterol Ipratr /25/ 3.0 suspend Ipratrop ium- eCW3 0.833 MG/ML opium- 2015 {ml} ed Albuterol ( [place] / [place] 12:00: 0.5-2.5 (3) Rive r Ipratropium rol 00 AM MG/3ML [facility] [place] 0.5-2. EDT Care) 0.167 MG/ML 5 (3) Inhalant MG/3ML Solution Ipratropium -Albuterol 0.5-2.5 (3) MG/3ML Albuterol Ipratr /25/ 3.0 suspend Ipratrop ium- eCW3 0.833 MG/ML opium- 2015 {ml} ed Albuterol ( [place] / [place] 12:00: 0.5-2.5 (3) Rive r Ipratropium rol 00 AM MG/3ML [facility] [place] 0.5-2. EDT Care) 0.167 MG/ML 5 (3) Inhalant MG/3ML Solution Ipratropium -Albuterol 0.5-2.5 (3) MG/3ML Albuterol Ipratr 03/25/ 3.0 suspend Ipratrop ium- eCW3 0.833 MG/ML opium- 2015 {ml} ed Albuterol ( [place] / [place] 12:00: 0.5-2.5 (3) Rive r Ipratropium rol 00 AM MG/3ML [facility] [place] 0.5-2. EDT Care) 0.167 MG/ML 5 (3) Inhalant MG/3ML Solution Ipratropium -Albuterol 0.5-2.5 (3) MG/3ML Albuterol Ipratr 25/ 3.0 suspend Ipratrop ium- eCW3 0.833 MG/ML opium- 2015 {ml} ed Albuterol ( [place] / [place] 12:00: 0.5-2.5 (3) Rive r Ipratropium rol 00 AM MG/3ML [facility] [place] 0.5-2. EDT Care) 0.167 MG/ML 5 (3) [...] [place] 00 AM Health EDT Care) Pen [place] Pen 12/06/ active Pen Needl es eCW3 31G X 6 MM Needle 2013 31G X 6 MM ( [place] [facility] 31G 12:00: [place] X 6 MM 00 AM Health EDT Care) Pen [place] Pen 12/06/ active Pen Needl es eCW3 31G X 6 MM Needle 2013 31G X 6 MM ( [place] [facility] 31G 12:00: [place] X 6 MM 00 AM Health EDT Care) Pen [place] Pen 12/06/ active Pen Needl es eCW3 31G X 6 MM Needle 2014 31G X 6 MM ( [place] [facility] 31G 12:00: [place] X 6 MM 00 AM Health EDT Care) Pen [place] Pen 12/06/ active Pen Needl es eCW3 31G X 6 MM Needle 2014 31G X 6 MM ( [place] [facility] 31G 12:00: [place] X 6 MM 00 AM Health EDT Care) Pen [place] Pen 12/06/ active Pen Needl es eCW3 31G X 6 MM Needle 2014 31G X 6 MM ( [place] [facility] 31G 12:00: [place] X 6 MM 00 AM Health EDT Care) Pen [place] Pen 12/06/ active Pen Needl es eCW3 31G X 6 MM Needle 2014 31G X 6 MM ( [place] [facility] 31G 12:00: [place] X 6 MM 00 AM Health EDT Care) Pen [place] Pen 12/06/ active Pen Needl es eCW3 31G X 6 MM Needle 2013 31G X 6 MM ( [place] [facility] 31G 12:00: [place] X 6 MM 00 AM Health EDT Care) Pen [place] Pen 12/06/ active Pen Needl es eCW3 31G X 6 MM Needle 2014 31G X 6 MM ( [place] [facility] 31G 12:00: [place] X 6 MM 00 AM Health EDT Care) Pen [place] Pen 12/06/ active Pen Needl es eCW3 31G X 6 MM Needle 2014 31G X 6 MM ( [place] [facility] 31G 12:00: [place] X 6 MM 00 AM Health EDT Care) Pen [place] Pen 12/06/ active Pen Needl es eCW3 31G X 6 MM Needle 2014 31G X 6 MM ( [place] [facility] 31G 12:00: [place] X 6 MM 00 AM Health EDT Care) Pen [place] Pen 12/06/ active Pen Needl es eCW3 31G X 6 MM Needle 2014 31G X 6 MM ( [place] [facility] 31G 12:00: [place] X 6 MM 00 AM Health EDT Care) Pen [place] Pen 12/06/ active Pen Needl es eCW3 31G X 6 MM Needle 2014 31G X 6 MM ( [place] 31G 12:00: [place] X 6 MM 00 AM Health EDT Care) Pen [place] Pen 12/06/ active Pen Needl es eCW3 31G X 6 MM Needle 2014 31G X 6 MM ( [place] 31G 12:00: [place] X 6 MM 00 AM Health EDT Care) Pen [place] Pen 12/06/ active Pen Needl es eCW3 31G X 6 MM Needle 2013 31G X 6 MM ( [place] 31G 12:00: [place] X 6 MM 00 AM Health EDT Care) Pen [place] Pen 12/06/ active as direct ed eCW2 31G X 6 MM Needle 2013 ([place] 31G 12:00: [place] X 6 MM 00 AM Health EDT Care) Pen [place] Pen 12/06/ active Pen Needl es eCW3 31G X 6 MM Needle 2014 31G X 6 MM ( [place] 31G 12:00: [place] X 6 MM 00 AM Health EDT Care) Pen [place] Pen 12/06/ active Pen Needl es eCW3 31G X 6 MM Needle 2014 31G X 6 MM ( [place] 31G 12:00: [place] X 6 MM 00 AM Health EDT Care) Pen [place] Pen 12/06/ active Pen Needl es eCW3 31G X 6 MM Needle 2014 31G X 6 MM ( [place] 31G 12:00: [place] X 6 MM 00 AM Health EDT Care) Pen [place] Pen 12/06/ active Pen Needl es eCW3 31G X 6 MM Needle 2014 31G X 6 MM ( [place] 31G 12:00: [place] X 6 MM 00 AM Health EDT Care) Pen [place] Pen 12/06/ active Pen Needl es eCW3 31G X 6 MM Needle 2014 31G X 6 MM ( [place] 31G 12:00: [place] X 6 MM 00 AM Health EDT Care) Pen [place] Pen 12/06/ active Pen Needl es eCW3 31G X 6 MM Needle 2014 31G X 6 MM ( [place] 31G 12:00: [place] X 6 MM 00 AM Health EDT Care) Pen [place] Pen 12/06/ active Pen Needl es eCW3 31G X 6 MM Needle 2014 31G X 6 MM ( [place] 31G 12:00: [place] X 6 MM 00 AM Health EDT Care) Pen [place] Pen 12/06/ active Pen Needl es eCW3 31G X 6 MM Needle 2014 31G X 6 MM ( [place] 31G 12:00: [place] X 6 MM 00 AM Health EDT Care) Pen [place] Pen 12/06/ active Pen Needl es eCW3 31G X 6 MM Needle 2014 31G X 6 MM ( [place] 31G 12:00: [place] X 6 MM 00 AM Health EDT Care) Pen [place] Pen 12/06/ active Pen Needl es eCW3 31G X 6 MM Needle 2014 31G X 6 MM ( [place] 31G 12:00: [place] X 6 MM 00 AM Health EDT Care) Pen [place] Pen 12/06/ active Pen Needl es eCW3 31G X 6 MM Needle 2014 31G X 6 MM ( [place] 31G 12:00: [place] X 6 MM 00 AM Health EDT Care) Pen [place] Pen 12/06/ active Pen Needl es eCW3 31G X 6 MM Needle 2013 31G X 6 MM ( [place] 31G 12:00: [place] X 6 MM 00 AM Health EDT Care) Pen [place] Pen 12/06/ active Pen Needl es eCW3 31G X 6 MM Needle 2013 31G X 6 MM ( [place] 31G 12:00: [place] X 6 MM 00 AM Health EDT Care) Pen [place] Pen 12/06/ active Pen Needl es eCW3 31G X 6 MM Needle 2014 31G X 6 MM ( [place] 31G 12:00: [place] X 6 MM 00 AM Health EDT Care) Pen [place] Pen 12/06/ active Pen Needl es eCW3 31G X 6 MM Needle 2014 31G X 6 MM ( [place] 31G 12:00: [place] X 6 MM 00 AM Health EDT Care) Pen [place] Pen 12/06/ active Pen Needl es eCW3 31G X 6 MM Needle 2014 31G X 6 MM ( [place] 31G 12:00: [place] X 6 MM 00 AM Health EDT Care) Pen [place] Pen 12/06/ active Pen Needl es eCW3 31G X 6 MM Needle 2014 31G X 6 MM ( [place] 31G 12:00: [place] X 6 MM 00 AM Health EDT Care) Pen [place] Pen 12/06/ active Pen Needl es eCW3 [...] active As directe d eCW2 NIDD 2012 ([place] 12:00: [place] 00 AM [facility] EDT Care) Glucometer UNK 09/06/ active Glucometer eCW3 NIDD 2012 NIDD ([place] 12:00: [place] 00 AM [facility] EDT Care) GLUCOMETER UNK 09/06/ active GLUCOMETER eCW3 NIDD 2012 NIDD ([place] 12:00: [place] 00 AM [facility] EDT Care) GLUCOMETER UNK 09/06/ active GLUCOMETER eCW3 NIDD 2012 NIDD ([place] 12:00: [place] 00 AM [facility] EDT Care) gabapentin Gabape 1.0 active Gabapentin eCW3 300 MG Oral ntin {caps 300 MG ([facility] on Capsule 300 MG ule} [place] Gabapentin Health 300 MG Care) Fluticasone Flutic suspend Fluticas one eCW3 Propionate asone ed Propionate ([place] 50 MCG/ACT Propio 50 MCG/ACT R [address]) MCG/AC T Unknown complet eCW2 Medications ed ([facility]) Magnesium Magnes active Magnesium e CW3 Oxide 400 ium Oxide 400 ([facility] on MG Oral Oxide (241.3 Mg) [place] Tablet 400 MG Health Magnesium (241.3 Care) Oxide 400 Mg) MG (241.3 Mg) MG Fluticasone Flutic suspend Fluticas one eCW3 Propionate asone ed Propionate ([place] 50 MCG/ACT Propio 50 MCG/ACT R [facility] 50 [facility]) MCG/AC T carvedilol Carved active Carvedilol eCW3 3.125 MG ilol 3.125 MG ([place] Oral Tablet 3.125 [place] Carvedilol Health 3.125 MG Care) Spironolact Spiron 1.0 active Spironola religious activities director eCW3 one 25 MG olacto {tabl ne 25 MG (Hu d[place] Oral Tablet ne 25 et} [facility]) Vitamin B Vitami 1.0 active Vitamin B e CW3 Complex - n B {tabl Complex - ([place] Comple et} [place] x Health [facility]) 60 ACTUAT Advair active Advair eCW3 Fluticasone Diskus Diskus ([facility] son propionate 500-50 500-50 [place] 0.5 mcg/do mcg/dose Health MG/ACTUAT / se [...] MG ([place] Capsule 300 MG ule} [place] Gabapentin Health 300 MG Care) montelukast Eduardo [...] 15 MG Spironolact Spiron 1.0 active Spironola religious activities director eCW3 one 25 MG olacto {tabl ne [...] 20 MG ([place] Tablet MG [place] [Xarelto] [facility] Xarelto 20 Care) MG 60 ACTUAT Advair [...] 20 MG ([place] Tablet MG [place] [Xarelto] [facility] Xarelto 20 Care) MG Fluticasone Flutic suspend [...] MG ([place] Capsule 300 MG ule} [place] Gabapentin Health 300 MG Care) Loratadine Clarit 1.0 active Claritin 1 0 eCW3 10 MG Oral in 10 {tabl mg ([place] Tablet mg et} [place] [Claritin] Health Claritin 10 Care) mg gabapentin Gabape 1.0 active Gabapentin eCW3 300 MG Oral ntin {caps 300 MG ([place] Capsule 300 MG ule} [place] Gabapentin Health 300 MG Care) pantoprazol Pantop 1.0 active Pantopraz ole eCW3 e 20 MG [place] {tabl Sodium 20 MG ( [place] Delayed Sodium et} [place] Release 20 MG Health Oral Tablet Care) Pantoprazol e Sodium 20 MG rivaroxaban Xarelt active Xarelto 2 0 eCW3 20 MG Oral o 20 MG ([place] Tablet MG [place] [Xarelto] [facility] Xarelto 20 [facility]) MG gabapentin Gabape 1.0 active Gabapentin eCW3 300 MG Oral ntin {caps 300 MG ([facility] on Capsule 300 MG ule} [place] Gabapentin Health 300 MG Care) 3 ML Victoz active Victoza 18 eCW3 liraglutide a 18 [facility]ML [facility] Pen MG/3ML [place] Injector [facility] [Victoza] [facility]) Victoza 18 MG/3ML Spironolact Spiron 1.0 active Spironola religious activities director eCW3 one 25 MG olacto {tabl ne 25 MG ( dson Oral Tablet ne 25 et} [facility]) 200 ACTUAT Ventol 2.0 suspend Ventolin HFA [...] 500-50 mcg/dose Spironolact Spiron 1.0 active Spironola religious activities director eCW3 one 25 MG olacto {tabl ne 25 MG ( dson Oral Tablet ne 25 et} [facility]) Unknown complet eCW2 Medications ed ([facility]) pantoprazol Pantop 1.0 active Pantopraz ole eCW3 [...] MG ([place] Capsule 300 MG ule} [place] Gabapentin Health 300 MG Care) Magnesium Magnes [...] 500-50 mcg/dose Spironolact Spiron 1.0 active Spironola religious activities director eCW3 one 25 MG olacto {tabl ne [...] MG ([place] Capsule 300 MG ule} [place] Gabapentin Health 300 MG Care) montelukast Singul [...] Oral o 20 MG ([place] Tablet MG [place] [Xarelto] [facility] Xarelto 20 [facility]) MG 3 ML Victoz active Victoza 18 eCW3 liraglutide a 18 MG/3ML ([place] 6 MG/ML Pen MG/3ML [place] Injector Health [Victoza] Care) Victoza 18 MG/3ML carvedilol Carved active Carvedilol eCW3 3.125 MG ilol 3.125 MG ([place] Oral Tablet 3.125 [place] Carvedilol Health 3.125 MG [facility]) 200 ACTUAT Ventol 2.0 suspend Ventolin HFA [...] MG/3ML ([place] 6 MG/ML Pen MG/3ML [place] Injector Health [Victoza] Care) Victoza 18 MG/3ML Morphine [place] 1.0 suspend Morphine eC W3 Sulfate 15 ne {tabl ed Sulfate ER ([place] ud[place] MG Extended Sulfat et} 15 MG [place] Release e ER Health Oral Tablet 15 MG Care) Morphine Sulfate ER 15 MG gabapentin Gabape 1.0 active Gabapentin eCW3 300 MG Oral ntin {caps 300 MG ([place] Capsule 300 MG ule} [place] Gabapentin Health 300 MG Care) clopidogrel Clopid [...] 15 MG Spironolact Spiron 1.0 active Spironola religious activities director eCW3 one 25 MG olacto {tabl ne [...] {tabl Complex - ([place] Comple et} [place] x - Health [facility]) carvedilol Carved active Carvedilol eCW3 3.125 MG [...] {tabl Complex - ([place] Comple et} [place] x - Health Care) rivaroxaban Xarelt active Xarelto 2 0 eCW3 20 MG Oral o 20 MG ([place] Tablet MG [place] [Xarelto] [facility] Xarelto 20 [facility]) MG carvedilol Carved active Carvedilol eCW3 3.125 MG ilol 3.125 MG ([place] Oral Tablet 3.125 [place] Carvedilol MG Health 3.125 MG Care) 60 ACTUAT Advair active Advair eCW3 Fluticasone Diskus Diskus ([facility] son propionate 500-50 500-50 [place] 0.5 mcg/do mcg/dose Health MG/ACTUAT / se Care) salmeterol 0.05 MG/ACTUAT Dry Powder Inhaler [Advair] Advair Diskus 500-50 mcg/dose rivaroxaban Xarelt active Xarelto 2 0 eCW3 20 MG Oral o 20 MG ([place] Tablet MG [place] [Xarelto] [facility] Xarelto 20 [facility]) MG Vitamin B Vitami 1.0 active Vitamin B e CW3 Complex - n B {tabl Complex - ([facility] son Comple et} [facility]) Vitamin B Vitami 1.0 active Vitamin B e CW3 Complex - n B {tabl Complex - ([facility] son Comple et} [facility]) Morphine Morphi 1.0 suspend Morphine eC W3 Sulfate 15 ne {tabl ed Sulfate ER ([place] MG Extended Sulfat et} 15 MG [place] Release e ER Health Oral Tablet 15 MG Care) Morphine Sulfate ER 15 MG gabapentin Gabape 1.0 active Gabapentin eCW3 300 MG Oral ntin {caps 300 MG ([place] Capsule 300 MG ule} [place] Gabapentin Health 300 MG Care) clopidogrel Clopid active Clopidogr el eCW3 75 MG Oral ogrel Bisulfate 75 ([place] Tablet Bisulf MG [place] Clopidogrel ate 75 Health Bisulfate MG Care) 75 MG 3 ML Victoz active Victoza 18 eCW3 liraglutide a 18 MG/3ML ([place] 6 MG/ML Pen MG/3ML [place] Injector Health [Victoza] [facility]) Victoza 18 MG/3ML Magnesium Magnes active Magnesium e CW3 Oxide 400 ium Oxide 400 ([place] on MG Oral Oxide (241.3 Mg) [place] Tablet 400 MG Health Magnesium (241.3 Care) Oxide 400 Mg) MG (241.3 Mg) MG rivaroxaban Xarelt active Xarelto 2 0 eCW3 20 MG Oral o 20 MG ([place] Tablet MG [place] [Xarelto] [facility] Xarelto 20 Care) MG Morphine Mor[place] 1.0 suspend Morphine eC W3 Sulfate 15 ne {tabl ed Sulfate ER ([place] MG Extended Sulfat et} 15 MG [place] Release e ER Health Oral Tablet 15 MG Care) Morphine Sulfate ER 15 MG Spironolact Spiron 1.0 active Spironola religious activities director eCW3 one 25 MG olacto {tabl ne 25 MG ([place] Oral Tablet ne 25 et} [facility]) carvedilol Carved active Carvedilol eCW3 3.125 MG ilol 3.125 MG ([place] Oral Tablet 3.125 [place] Carvedilol MG [facility] 3.125 MG [facility]) Vitamin B Vitami 1.0 active Vitamin B e CW3 Complex - n B {tabl Complex - ([place] Comple et} [facility]) Morphine Mor[place] 1.0 suspend Morphine eC W3 Sulfate 15 ne {tabl ed Sulfate ER ([place] MG Extended Sulfat et} 15 MG [place] Release e ER Health Oral Tablet 15 MG Care) Morphine Sulfate ER 15 MG 3 ML Victoz active Victoza 18 eCW3 liraglutide a 18 MG/3ML ([place] 6 MG/ML Pen MG/3ML [place] Injector [facility] [Victoza] [facility]) Victoza 18 MG/3ML Vitamin B Vitami 1.0 active Vitamin B e CW3 Complex - n B {tabl Complex - ([place] Comple et} [facility]) Magnesium Magnes active Magnesium e CW3 Oxide 400 ium Oxide 400 ([place] on MG Oral Oxide (241.3 Mg) [place] Tablet 400 MG Health Magnesium (241.3 Care) Oxide 400 Mg) MG (241.3 Mg) MG clopidogrel Clopid active Clopidogr el eCW3 75 MG Oral ogrel Bisulfate 75 ([place] Tablet Bisulf MG [place] Clopidogrel ate 75 Health Bisulfate MG [facility]) 75 MG Loratadine Clarit 1.0 active Claritin 1 0 eCW3 10 MG Oral in 10 {tabl mg ([place] Tablet mg et} [place] [Claritin] [facility] Claritin 10 Care) mg Spironolact Spiron 1.0 active Spironola religious activities director eCW3 one 25 MG olacto {tabl ne 25 MG ([place] d[place] Oral Tablet ne 25 et} [facility]) Fluticasone Flutic suspend 2 sprays eCW2 Propionate asone ed ([place] 50 MCG/ACT Propio [place] [facility] 50 [facility]) MCG/AC T gabapentin Gabape 1.0 active Gabapentin eCW3 300 MG Oral ntin {caps 300 MG ([place] Capsule 300 MG ule} [place] Gabapentin Health 300 MG [facility]) montelukast Eduardo 1.[address] eCW3 10 MG Oral ukast {tabl Sodium 10 mg ([place] Tablet Sodium et} [place] Montelukast 10 mg Health Sodium 10 [facility]) mg Fluticasone Flutic suspend Fluticas one eCW3 Propionate asone ed Propionate ([place] 50 MCG/ACT Propio 50 MCG/ACT R iver [address]) MCG/AC T 200 ACTUAT Ventol 2.0 suspend Ventolin HFA eCW3 Albuterol in HFA {puff ed 108 (90 ([place] son 0.09 108 s} Base) [place] MG/ACTUAT (90 MCG/ACT Health Metered [facility]) [facility]) Dose MCG/AC Inhaler T [Ventolin] Ventolin HFA 108 (90 Base) MCG/ACT clopidogrel Clopid active Clopidogr el eCW3 75 MG Oral ogrel Bisulfate 75 ([place] Tablet Bisulf MG [place] Clopidogrel ate 75 Health Bisulfate MG [facility]) 75 MG carvedilol Carved active Carvedilol eCW3 3.125 MG ilol 3.125 MG ([place] Oral Tablet 3.125 [place] Carvedilol MG Health 3.125 MG [facility]) Vitamin B Vitami 1.0 active Vitamin B e CW3 Complex - n B {tabl Complex - ([place] Comple et} [place] x - Health [facility]) 3 ML Victoz active Victoza 18 eCW3 liraglutide a 18 MG/3ML ([place] 6 MG/ML Pen MG/3ML [place] Injector Health [Victoza] [facility]) Victoza 18 MG/3ML Morphine [place] 1.0 suspend Morphine eC W3 Sulfate 15 ne {tabl ed Sulfate ER ([place] MG Extended Sulfat et} 15 MG [place] Release e ER Health Oral Tablet 15 MG [facility]) Morphine Sulfate ER 15 MG Spironolact Spiron 1.0 active Spironola religious activities director eCW3 one 25 MG olacto {tabl ne [...] Health Care) Spironolact Spiron 1.0 active Spironola religious activities director eCW3 one 25 MG olacto {tabl ne [...] MG Care) Unknown complet eCW2 Medications ed ([facility]) clopidogrel Clopid active Clopidogr el eCW3 75 [...] 15 MG Spironolact Spiron 1.0 active Spironola religious activities director eCW3 one 25 MG olacto {tabl ne [...] udson 50 MCG/ACT Propio 50 MCG/ACT R [place] [id number] Care) MCG/AC T Loratadine Clarit 1.0 active Claritin 1 0 eCW3 10 MG Oral in 10 {tabl mg ([place] Tablet mg et} [place] [[facility]] [facility] 10 [facility]) mg pantoprazol Pantop 1.0 active Pantopraz ole eCW3 e 20 MG [place]ole {tabl Sodium 20 MG ( [place] Delayed Sodium et} [place] Release 20 MG Health Oral Tablet Care) Pantoprazol e Sodium 20 MG Fluticasone Flutic suspend Fluticas one eCW3 Propionate asone ed Propionate ([place] 50 MCG/ACT Propio 50 MCG/ACT R [place] [address] Care) MCG/AC T Losartan Losart active Losartan eCW 3 Potassium an Potassium 50 ([place] 50 MG Oral Potass MG [place] Tablet ium 50 Health MG Care) Loratadine Clarit 1.0 active Claritin 1 0 eCW3 10 MG Oral in 10 {tabl mg ([place] Tablet mg et} [place] [[facility]] [facility] 10 [facility]) mg clopidogrel Clopid active Clopidogr el eCW3 75 MG Oral ogrel Bisulfate 75 ([place] Tablet Bisulf MG [place] Clopidogrel ate 75 Health Bisulfate MG Care) 75 MG Loratadine Clarit 1.0 active Claritin 1 0 eCW3 10 MG Oral in 10 {tabl mg ([place] Tablet mg et} [place] [[facility]] [facility] 10 [facility]) mg Morphine Morphi 1.0 suspend Morphine eC [...] udson 50 MCG/ACT Propio 50 MCG/ACT R [place] [id number] Care) MCG/AC T pantoprazol Pantop 1.0 active [...] 18 MG/3ML Spironolact Spiron 1.0 active Spironola religious activities director eCW3 one 25 MG olacto {tabl ne [...] MG/3ML ([place] 6 MG/ML Pen MG/3ML [place] Injector Health [Victoza] Care) Victoza 18 MG/3ML [...] Oral o 20 MG ([place] Tablet MG [place] [Xarelto] Health Xarelto 20 Care) MG Vitamin B Vitami 1.0 active Vitamin B e CW3 Complex - n B {tabl Complex - ([place] son Comple et} [place] x - Health Care) Spironolact Spiron 1.0 active Spironola religious activities director eCW3 one 25 MG olacto {tabl ne [...] MG ([place] Capsule 300 MG ule} [place] Gabapentin Health 300 MG Care) clopidogrel Clopid [...] MG/3ML ([place] 6 MG/ML Pen MG/3ML [place] Injector Health [Victoza] Care) Victoza 18 MG/3ML Unknown complet eCW2 Medications ed ([facility]) carvedilol Carved active Carvedilol eCW3 3.125 MG ilol 3.125 MG ([place] Oral Tablet 3.125 [place] Carvedilol MG [facility] 3.125 MG Care) Vitamin B Vitami 1.0 active Vitamin B e CW3 Complex - n B {tabl Complex - ([facility] Comple et} [facility]) carvedilol Carved active Carvedilol eCW3 3.125 MG ilol 3.125 MG ([place] Oral Tablet 3.125 [place] Carvedilol MG [facility] 3.125 MG [facility]) rivaroxaban Xarelt active Xarelto 2 0 eCW3 20 MG Oral o 20 MG ([place] Tablet MG [place] [Xarelto] [facility] Xarelto 20 [facility]) MG 3 ML Victoz active Victoza 18 eCW3 liraglutide a 18 MG/3ML ([place] 6 MG/ML Pen MG/3ML [place] Injector Health [Victoza] Care) Victoza 18 MG/3ML 60 ACTUAT Advair active Advair eCW3 Fluticasone Diskus Diskus ([facility] propionate 500-50 500-50 [place] 0.5 mcg/do mcg/dose Health MG/ACTUAT / se Care) salmeterol 0.05 MG/ACTUAT Dry Powder Inhaler [Advair] Advair Diskus 500-50 mcg/dose pantoprazol Pantop 1.0 active Pantopraz ole eCW3 e 20 MG razole {tabl Sodium 20 MG ( [place] Delayed Sodium et} [place] Release 20 MG Health Oral Tablet Care) Pantoprazol e Sodium 20 MG Vitamin B Vitami 1.0 active Vitamin B e CW3 Complex - n B {tabl Complex - ([facility] son Comple et} [facility]) 60 ACTUAT Advair active Advair eCW3 Fluticasone Diskus Diskus ([facility] propionate 500-50 500-50 [place] 0.5 mcg/do mcg/dose Health MG/ACTUAT / se Care) salmeterol 0.05 MG/ACTUAT Dry Powder Inhaler [Advair] Advair Diskus 500-50 mcg/dose montelukast Eduardo 1.[address] eCW3 10 MG Oral ukast {tabl Sodium 10 mg ([place] Tablet Sodium et} [place] Montelukast 10 mg Health Sodium 10 Care) mg carvedilol Carved active Carvedilol eCW3 3.125 MG ilol 3.125 MG ([place] Oral Tablet 3.125 [place] Carvedilol MG Health 3.125 MG Care) Spironolact Spiron 1.0 active Spironola religious activities director eCW3 one 25 MG olacto {tabl ne [...] ([place] Oral Tablet 3.125 [place] Carvedilol MG [facility] 3.125 MG Care) Losartan Losart active Losartan eCW 3 Potassium an Potassium 50 ([place] 50 MG Oral Potass MG [place] Tablet ium 50 Health MG Care) gabapentin Gabape 1.0 active Gabapentin eCW3 300 MG Oral ntin {caps 300 MG ([place] Capsule 300 MG ule} [place] Gabapentin Health 300 MG Care) rivaroxaban Xarelt active Xarelto 2 0 eCW3 20 MG Oral o 20 MG ([place] Tablet MG [place] [Xarelto] [facility] Xarelto 20 Care) MG 200 ACTUAT Ventol [...] MG ([place] Capsule 300 MG ule} [place] Gabapentin Health 300 MG Care) Fluticasone Flutic [...] son Comple et} [place] x - Health [facility]) montelukast Eduardo 1.[address] eCW3 [...] Base) MCG/ACT Spironolact Spiron 1.0 active Spironola religious activities director eCW3 one 25 MG olacto {tabl ne 25 MG ([place] d[place] Oral Tablet ne 25 et} [facility]) Fluticasone Flutic suspend Fluticas one eCW3 Propionate asone ed Propionate ([place] 50 MCG/ACT Propio 50 [facility]CG[facility]) MCG/AC T pantoprazol Pantop 1.0 [...] 10 MG Oral in 10 {tabl mg ([place] Tablet mg et} [place] [Claritin] [facility] Claritin 10 Care) mg rivaroxaban Xarelt active Xarelto 2 0 eCW3 20 MG Oral o 20 MG ([place] Tablet MG [place] [Xarelto] [facility] Xarelto 20 Care) MG 60 ACTUAT Advair [...] mg ([place] Tablet mg et} [place] [Claritin] [facility] Claritin 10 Care) mg carvedilol Carved active Carvedilol eCW3 3.125 MG ilol 3.125 MG ([place] Oral Tablet 3.125 [place] Carvedilol MG [facility] 3.125 MG Care) 200 ACTUAT Ventol 2.0 [...] Oral o 20 MG ([place] Tablet MG [place] [Xarelto] [facility] Xarelto 20 [facility]) MG carvedilol Carved active Carvedilol eCW3 3.125 MG ilol 3.125 MG ([place] Oral Tablet 3.125 [place] Carvedilol MG [facility] 3.125 MG Care) clopidogrel Clopid active Clopidogr el eCW3 75 MG Oral ogrel Bisulfate 75 ([place] Tablet Bisulf MG [place] Clopidogrel ate 75 [facility] Bisulfate MG [facility]) 75 MG carvedilol Carved active Carvedilol eCW3 3.125 MG ilol 3.125 MG ([place] Oral Tablet 3.125 [place] Carvedilol MG [facility] 3.125 MG Care) 3 ML Victoz active Victoza 18 eCW3 liraglutide a 18 MG/3ML ([place] 6 MG/ML Pen MG/3ML [place] [facility]icto[facility] Care) Victoza 18 MG/3ML 3 ML Victoz active Victoza 18 eCW3 liraglutide a 18 MG/3ML ([place] 6 MG/ML Pen MG/3ML [place] [facility] [Victoza] Care) Victoza 18 MG/3ML Spironolact Spiron 1.0 active Spironola religious activities director eCW3 one 25 MG olacto {tabl ne [...] ilol 3.125 MG ([place] Oral Tablet 3.125 [place] Carvedilol [facility] 3.125 MG [facility]) Fluticasone Flutic suspend Fluticas one eCW3 Propionate asone ed Propionate (H ud[place] 50 MCG/ACT Propio 50 MCG/ACT [facility]) MCG/AC T carvedilol Carved active Carvedilol eCW3 3.125 MG ilol 3.125 MG ([place] Oral Tablet 3.125 [place] Carvedilol [facility] 3.125 MG [facility]) carvedilol Carved active Carvedilol eCW3 3.125 MG ilol 3.125 MG ([place] Oral Tablet 3.125 [place] Carvedilol [facility] 3.125 MG [facility]) gabapentin Gabape 1.0 active Gabapentin eCW3 300 MG Oral ntin {caps 300 MG ([place] Capsule 300 MG ule} [place] Gabapentin [facility] 300 MG [facility]) Spironolact Spiron 1.0 active Spironola religious activities director eCW3 one 25 MG olacto {tabl ne 25 MG (Hu d[place] Oral Tablet ne 25 et} [facility]) Omeprazole Omepra active Omeprazole eCW3 20 MG zole 20 MG ([place] Delayed 20 MG [place] Release Health Oral Care) Capsule Loratadine Clarit 1.0 active Claritin 1 0 eCW3 10 MG Oral in 10 {tabl mg ([place] Tablet mg et} [place] [Claritin] [facility] Claritin 10 [facility]) mg 200 ACTUAT Ventol 2.0 suspend Ventolin [...] mg ([place] Tablet mg et} [place] [Claritin] [facility] Claritin 10 Care) mg 200 ACTUAT Ventol [...] 20 MG Unknown complet eCW2 Medications ed ([facility]) Loratadine Clarit 1.0 active Claritin 1 0 eCW3 10 MG Oral in 10 {tabl mg ([place] Tablet mg et} [place] [[facility]] [address]) mg Spironolact Spiron 1.0 active Spironola religious activities director eCW3 one 25 MG olacto {tabl ne 25 MG ([place] [facility] Oral Tablet ne 25 et} [facility] [facility]) Spironolact Spiron 1.0 active Spironola religious activities director eCW3 one 25 MG olacto {tabl ne 25 MG (Hu dson Oral Tablet ne 25 et} [facility]) Vitamin B Vitami 1.0 active Vitamin B e CW3 Complex - n B {tabl Complex - (Hud son Comple et} [place] x - [facility]) Loratadine Clarit 1.0 active Claritin 1 0 eCW3 10 MG Oral in 10 {tabl mg ([place] Tablet mg et} [place] [[facility]] [address]) mg pantoprazol Pantop 1.0 active Pantopraz ole eCW3 e 20 MG razole {tabl Sodium 20 MG ( [place] Delayed Sodium et} [place] Release 20 MG Health Oral Tablet Care) Pantoprazol e Sodium 20 MG Loratadine Clarit 1.0 active Claritin 1 0 eCW3 10 MG Oral in 10 {tabl mg ([place] Tablet mg et} [place] [[facility]] [facility] 10 [facility]) mg 200 ACTUAT Ventol 2.0 suspend Ventolin HFA eCW3 Albuterol in HFA {puff ed 108 (90 (Hud son 0.09 108 s} Base) [place] MG/ACTUAT (90 MCG/ACT Health Metered Base) Care) Dose MCG/AC Inhaler T [Ventolin] Ventolin HFA 108 (90 Base) MCG/ACT rivaroxaban Xarelt active Xarelto 2 0 eCW3 20 MG Oral o 20 MG ([place] Tablet MG [place] [Xarelto] [facility] Xarelto 20 [facility]) MG Claritin 10 Clarit 1.0 active Claritin 10 eCW3 mg in 10 {tabl mg ([place] mg et} [facility]) montelukast Singul suspend 1 tablet in eCW2 10 MG Oral air 10 ed the evening ([place] Tablet mg [place] [Singulair] [facility] Singulair [facility]) 10 mg Vitamin B Vitami 1.0 active Vitamin B e CW3 Complex - n B {tabl Complex - (Hud son Comple et} [place] x - Health [facility]) clopidogrel Clopid active Clopidogr el eCW3 75 MG Oral ogrel Bisulfate 75 ([place] Tablet Bisulf MG [place] Clopidogrel ate 75 [facility] Bisulfate MG [facility]) 75 MG montelukast Eduardo 1.[address] eCW3 10 MG Oral ukast {tabl Sodium 10 mg ([place] Tablet Sodium et} [place] Montelukast 10 mg [facility] Sodium 10 [facility]) mg gabapentin Gabape 1.0 active Gabapentin eCW3 300 MG Oral ntin {caps 300 MG (Huds on Capsule 300 MG ule} [place] Gabapentin Health 300 MG [facility]) clopidogrel Clopid active Clopidogr el eCW3 75 MG Oral ogrel Bisulfate 75 ([place] Tablet Bisulf MG [place] Clopidogrel ate 75 [facility] Bisulfate MG [facility]) 75 MG Magnesium Magnes active Magnesium e CW3 Oxide 400 ium Oxide 400 (Huds on MG Oral Oxide (241.3 Mg) [place] Tablet 400 MG Health Magnesium (241.3 Care) Oxide 400 Mg) MG (241.3 Mg) MG 3 ML Victoz active Victoza 18 eCW3 liraglutide a 18 MG/3ML (Hudso n 6 MG/ML Pen MG/3ML [place] Injector [facility] [Victoza] [facility]) Victoza 18 MG/3ML Loratadine Clarit 1.0 active Claritin 1 0 eCW3 10 MG Oral in 10 {tabl mg ([place] Tablet mg et} [place] [Claritin] [facility] Claritin 10 [facility]) mg Morphine Morphi 1.0 suspend Morphine eC [...] MG (Huds on Capsule 300 MG ule} [place] Gabapentin Health 300 MG Care) Morphine Morphi 1.0 suspend Morphine eC W3 Sulfate 15 ne {tabl ed Sulfate ER (H udson MG Extended Sulfat et} 15 MG [place] Release e ER Health Oral Tablet 15 MG Care) Morphine Sulfate ER 15 MG montelukast Eduardo 1.[address] eCW3 10 MG Oral ukast {tabl Sodium 10 mg ([place] Tablet Sodium et} [place] Montelukast 10 mg Health Sodium 10 Care) mg 3 ML Victoz active Victoza 18 eCW3 liraglutide a 18 MG/3ML ([place] n 6 MG/ML Pen MG/3ML [place] Injector Health [Victoza] Care) Victoza 18 MG/3ML rivaroxaban Xarelt active Xarelto 2 0 eCW3 20 MG Oral o 20 MG ([place] Tablet MG [place] [Xarelto] Health Xarelto 20 [facility]) MG Fluticasone Flutic suspend Fluticas one eCW3 [...] udson 50 MCG/ACT Propio 50 MCG/ACT R [facility] 50 Care) MCG/AC T Fluticasone Flutic suspend Fluticas one eCW3 Propionate asone ed Propionate (H udson 50 MCG/ACT Propio 50 [facility]CG[facility]) MCG/AC T Loratadine Clarit 1.0 active Claritin 1 0 eCW3 10 MG Oral in 10 {tabl mg ([place] Tablet mg et} [place] [Claritin] [facility] Claritin 10 Care) mg Spironolact Spiron 1.0 active Spironola religious activities director eCW3 one 25 MG olacto {tabl ne 25 MG (Hu dson Oral Tablet ne 25 et} [facility]) gabapentin Gabape 1.0 active Gabapentin eCW3 300 MG Oral ntin {caps 300 MG ([place] on Capsule 300 MG ule} [place] Gabapentin Health 300 MG Care) Loratadine Clarit 1.0 active Claritin 1 0 eCW3 10 MG Oral in 10 {tabl mg ([place] Tablet mg et} [place] [Claritin] [facility] Claritin 10 Care) mg 200 ACTUAT Ventol 2.0 suspend Ventolin HFA eCW3 Albuterol in HFA {puff ed 108 (90 (Hud son 0.09 108 s} Base) [place] MG/ACTUAT (90 MCG/ACT Health Metered Base) Care) Dose MCG/AC Inhaler T [Ventolin] Ventolin HFA 108 (90 Base) MCG/ACT Fluticasone Flutic suspend Fluticas one eCW3 Propionate asone ed Propionate (H udson 50 MCG/ACT Propio 50 MCG/ACT R [facility] 50 Care) MCG/AC T [...] MCG/AC T Spironolact Spiron 1.0 active Spironola religious activities director eCW3 one 25 MG olacto {tabl ne [...] MG ([place] on Capsule 300 MG ule} [place] Gabapentin Health 300 MG Care) 200 ACTUAT [...] 500-50 mcg/dose Spironolact Spiron 1.0 active Spironola religious activities director eCW3 one 25 MG olacto {tabl ne 25 MG (Hu dson Oral Tablet ne 25 et} [facility]) carvedilol Carved active Carvedilol eCW3 3.125 MG ilol 3.125 MG ([place] Oral Tablet 3.125 [place] Carvedilol MG [facility] 3.125 MG [facility]) carvedilol Carved active Carvedilol eCW3 3.125 MG ilol 3.125 MG ([place] Oral Tablet 3.125 [place] Carvedilol MG [facility] 3.125 MG [facility]) clopidogrel Clopid active Clopidogr el eCW3 75 MG Oral ogrel Bisulfate 75 ([place] Tablet Bisulf MG [place] Clopidogrel ate 75 Health Bisulfate MG [facility]) 75 MG 200 ACTUAT Ventol 2.0 suspend [...] 500-50 mcg/dose Spironolact Spiron 1.0 active Spironola religious activities director eCW3 one 25 MG olacto {tabl ne 25 MG (Hu dson Oral Tablet ne 25 et} [facility]) montelukast Eduardo 1.[address] eCW3 10 MG Oral ukast {tabl Sodium 10 mg ([place] Tablet Sodium et} [place] Montelukast 10 mg Health Sodium 10 Care) mg Fluticasone Flutic suspend Fluticas one eCW3 Propionate asone ed Propionate (H udson 50 MCG/ACT Propio 50 MCG/ACT R [address]) MCG/AC T Fluticasone Flutic suspend Fluticas one eCW3 Propionate asone ed Propionate (H udson 50 MCG/ACT Propio 50 MCG/ACT R [address]) MCG/AC T Morphine Morphi 1.0 suspend [...] 15 MG Spironolact Spiron 1.0 active Spironola religious activities director eCW3 one 25 MG olacto {tabl ne 25 MG (Hu dson Oral Tablet ne 25 et} [place] MG Health Care) rivaroxaban Xarelt active Xarelto 2 0 eCW3 20 MG Oral o 20 MG ([place] Tablet MG [place] [Xarelto] Health Xarelto 20 Care) MG Fluticasone Flutic suspend Fluticas one eCW3 Propionate asone ed Propionate (H udson 50 MCG/ACT Propio 50 [facility]CG/ACT [facility]) MCG/AC T carvedilol Carved active [...] {tabl mg ([place] Tablet mg et} [place] [facility] Health Claritin 10 Care) mg Morphine Morphi [...] 10 {tabl mg ([place] Tablet mg et} [place] [[facility]] [facility] Claritin 10 Care) mg Magnesium Magnes active [...] udson 50 MCG/ACT Propio 50 MCG/ACT R [address]) MCG/AC T Spironolact Spiron 1.0 active Spironola religious activities director eCW3 one 25 MG olacto {tabl ne 25 MG (Hu dson Oral Tablet ne 25 et} [facility]) carvedilol Carved active Carvedilol eCW3 3.125 MG ilol 3.125 MG ([place] Oral Tablet 3.125 [place] Carvedilol [facility] 3.125 MG [facility]) gabapentin Gabape 1.0 active Gabapentin eCW3 300 MG Oral ntin {caps 300 MG ([place] on Capsule 300 MG ule} [place] Gabapentin [facility] 300 MG [facility]) Spironolact Spiron 1.0 active Spironola religious activities director eCW3 one 25 MG olacto {tabl ne 25 MG (Hu dson Oral Tablet ne 25 et} [facility]) rivaroxaban Xarelt active Xarelto 2 0 eCW3 20 MG Oral o 20 MG ([place] Tablet MG [place] [Xarelto] [facility] Xarelto 20 [facility]) MG Fluticasone Flutic suspend Fluticas one eCW3 Propionate asone ed Propionate (H udson 50 MCG/ACT Propio 50 MCG/ACT R [address]) MCG/AC T Spironolact Spiron 1.0 active Spironola religious activities director eCW3 one 25 MG olacto {tabl ne 25 MG (Hu dson Oral Tablet ne 25 et} [facility]) 3 ML Victoz active Victoza 18 eCW3 liraglutide a 18 MG/3ML (Hud[place] n 6 MG/ML Pen MG/3ML [facility] [Victo] Care) Victoza 18 MG/3ML 3 ML Victoz active Victoza 18 eCW3 liraglutide a 18 MG/3ML (Hudso n 6 MG/ML Pen MG/3ML [facility] [Victo] [facility]) Victoza 18 MG/3ML Losartan Losart active Losartan eCW 3 Potassium an Potassium 50 (H udson 50 MG Oral Potass MG [place] Tablet ium 50 [facility]) Losartan Losart active Losartan eCW 3 [...] 500-50 mcg/dose Spironolact Spiron 1.0 active Spironola religious activities director eCW3 one 25 MG olacto {tabl ne [...] Health Care) Spironolact Spiron 1.0 active Spironola religious activities director eCW3 one 25 MG olacto {tabl ne 25 MG (Hu dson Oral Tablet ne 25 et} [place] [facility]) 200 ACTUAT Ventol 2.0 suspend [...] mg ([place] Tablet mg et} [place] [Claritin] [facility] Claritin 10 [facility]) mg rivaroxaban Xarelt active Xarelto 2 0 eCW3 20 MG Oral o 20 MG ([place] Tablet MG [place] [Xarelto] [facility] Xarelto 20 [facility]) MG Morphine Morphi 1.0 suspend Morphine eC W3 Sulfate 15 ne {tabl ed Sulfate ER (H udson MG Extended Sulfat et} 15 MG [place] Release e ER Health Oral Tablet 15 MG Care) Morphine Sulfate ER 15 MG Spironolact Spiron 1.0 active Spironola religious activities director eCW3 one 25 MG olacto {tabl ne 25 MG (Hu dson Oral Tablet ne 25 et} [place] [facility]) Spironolact Spiron 1.0 active Spironola religious activities director eCW3 one 25 MG olacto {tabl ne 25 MG (Hu dson Oral Tablet ne 25 et} [place] [facility] Care) Fluticasone Flutic suspend Fluticas one eCW3 Propionate asone ed Propionate (H udson 50 MCG/ACT Propio 50 MCG/ACT R [address]) MCG/AC T Fluticasone Flutic suspend Fluticas one eCW3 Propionate asone ed Propionate (H udson 50 MCG/ACT Propio 50 MCG/ACT R [address]) MCG/AC T clopidogrel Clopid active Clopidogr [...] Oral Potass MG [place] Tablet ium 50 [facility]) Vitamin B Vitami 1.0 active Vitamin B e CW3 Complex - n B {tabl Complex - (Hud son Comple et} [place] x - [facility]) 200 ACTUAT Ventol 2.0 suspend Ventolin HFA [...] Care) mg Spironolact Spiron 1.0 active Spironola religious activities director eCW3 one 25 MG olacto {tabl ne 25 MG (Hu dson Oral Tablet ne 25 et} [facility]) carvedilol Carved active Carvedilol eCW3 3.125 MG ilol 3.125 MG ([place] Oral Tablet 3.125 [place] Carvedilol MG Health 3.125 MG [facility]) 200 ACTUAT Ventol 2.0 suspend Ventolin HFA [...] MG ([place] on Capsule 300 MG ule} [place] Gabapentin Health 300 MG Care) Vitamin B [...] MG ([place]uds on Capsule 300 MG ule} [place] Gabapentin Health 300 MG Care) rivaroxaban Xarelt active Xarelto 2 0 eCW3 20 MG Oral o 20 MG ([place] Tablet MG [place] [Xarelto] Health Xarelto 20 Care) MG montelukast Eduardo 1.[address] eCW3 10 MG Oral ukast {tabl Sodium 10 mg ([place] Tablet Sodium et} [place] Montelukast 10 mg Health Sodium 10 Care) mg Loratadine Clarit 1.0 active Claritin 1 0 eCW3 10 MG Oral in 10 {tabl mg ([place] Tablet mg et} [place] [Claritin] Health Claritin 10 Care) mg 200 ACTUAT Ventol 2.0 suspend Ventolin HFA eCW3 Albuterol in HFA {puff ed 108 (90 (Hud son 0.09 108 s} Base) [place] MG/ACTUAT (90 MCG/ACT Health Metered Base) Care) Dose MCG/AC Inhaler T [Ventolin] Ventolin HFA 108 (90 Base) MCG/ACT Insurance Providers Payer name Policy type Policy ID Covered Covered green party's Policy P elda / Coverage green party ID relationship to [place] Inf ormation type [place]ICA[place] [id number] SP [id number] [facility] [place]ICA[place] [id number] [place] [id number] [facility] [place] [id number] SP [id number] O MVP/HHP O [id number] 01 [id number] MVP/HHP O [id number] 01 [id number] 500 MVP/HHP O [id number] 01 [id number] Problems, Conditions, and Diagnoses Code Display Name Description Problem Effective Data Type Dates Source(s) F41.0 Panic disorder Panic disorder Problem 12/20/2019 eCW3 12:00:00 AM ([facility]) I73.9 Peripheral vascular Peripheral vascular Problem 020 eCW3 disease disease 12:00:00 AM ([facility]) I50.23 Acute on chronic Acute on chronic Problem 09/24/2019 eC W3 systolic CHF systolic CHF 12:00:00 AM ([place] (congestive heart (congestive heart [facility] [place] failure) failure) [facility]) I73.9 Peripheral vascular Peripheral vascular Problem 020 eCW3 disease disease 12:00:00 AM ([facility]) I50.22 Systolic CHF, chronic Systolic CHF, chronic Problem eCW3 12:00:00 AM ([facility]) I50.22 Systolic CHF, chronic Systolic CHF, chronic Problem eCW3 12:00:00 AM ([facility]) J45.40 Moderate persistent Moderate persistent Problem 020 eCW3 asthma without asthma without 12:00:00 AM ([facility] on complication complication [facility]) J45.40 Moderate persistent Moderate persistent Problem 020 eCW3 asthma without asthma without 12:00:00 AM ([facility] on complication complication [facility]) J45.40 Moderate persistent Moderate persistent Problem 020 eCW3 asthma without asthma without 12:00:00 AM ([facility] on complication complication [facility]) I50.23 Acute on chronic Acute on chronic Problem 06/13/2019 eC W3 systolic congestive systolic congestive 12:00:0 0 AM ([place] heart failure heart failure [facility]) I50.23 Acute on chronic Acute on chronic Problem 06/13/2019 eC W3 systolic congestive systolic congestive 12:00:0 0 AM ([place] heart failure heart failure [facility]) J45.901 Exacerbation of asthma Asthma with acute Problem 2019 eCW3 exacerbation 12:00:00 AM ([facility]) J45.901 Exacerbation of asthma Asthma with acute Problem 2019 eCW3 exacerbation 12:00:00 AM ([facility]) J45.41 Moderate persistent Moderate persistent Problem 019 eCW3 asthma with acute asthma with acute 12:00:00 AM ([place] exacerbation exacerbation [facility]) J45.41 Moderate persistent Moderate persistent Problem 019 eCW3 asthma with acute asthma with acute 12:00:00 AM ([place] exacerbation exacerbation [facility]) J45.41 Moderate persistent Moderate persistent Problem 019 eCW3 asthma with acute asthma with acute 12:00:00 AM ([place] exacerbation exacerbation [facility]) J45.41 Moderate persistent Moderate persistent Problem 019 eCW3 asthma with acute asthma with acute 12:00:00 AM ([place] exacerbation exacerbation [facility]) J45.40 Moderate persistent Moderate persistent Problem 019 eCW3 asthma, unspecified asthma, unspecified 12:00:0 0 AM ([place] whether complicated whether complicated [facility]) J45.40 Moderate persistent Moderate persistent Problem 019 eCW3 asthma, unspecified asthma, unspecified 12:00:0 0 AM ([place] whether complicated whether complicated [facility]) J45.40 Moderate persistent Moderate persistent Problem 019 eCW3 asthma, unspecified asthma, unspecified 12:00:0 0 AM ([place] whether complicated whether complicated [facility]) J45.40 Moderate persistent Moderate persistent Problem 019 eCW3 asthma, unspecified asthma, unspecified 12:00:0 0 AM ([place] whether complicated whether complicated [facility]) J45.40 Moderate persistent Moderate persistent Problem 019 eCW3 asthma, unspecified asthma, unspecified 12:00:0 0 AM ([place] whether complicated whether complicated [facility]) I42.8 Non-ischemic Non-ischemic Problem 10/06/2018 eCW3 cardiomyopathy cardiomyopathy 12:00:00 AM ([facility]) I21.4 NSTEMI (non-ST elevated NSTEMI (non-ST Problem 10/07/19 19 eCW3 myocardial infarction) elevated myocardial 12:0 0:00 AM ([place] infarction) [facility]) I48.91 Atrial fibrillation, Atrial fibrillation, Problem 10/06 eCW3 unspecified type unspecified type 12:00:00 AM ( [facility]) I21.4 NSTEMI (non-ST elevated NSTEMI (non-ST Problem 10/07/19 19 eCW3 myocardial infarction) elevated myocardial 12:0 0:00 AM ([facility]) [facility]) I48.91 Atrial fibrillation, Atrial fibrillation, Problem 10/06 eCW3 unspecified type unspecified type 12:00:00 AM ( [facility]) I42.8 Non-ischemic Non-ischemic Problem 10/06/2018 eCW3 cardiomyopathy cardiomyopathy 12:00:00 AM ([facility]) I48.91 Atrial fibrillation, Atrial fibrillation, Problem 10/06 eCW3 unspecified type unspecified type 12:00:00 AM ( [facility]) I21.4 NSTEMI (non-ST elevated NSTEMI (non-ST Problem 10/07/19 19 eCW3 myocardial infarction) elevated myocardial 12:0 0:00 AM ([place] infarction) [facility]) I42.8 Non-ischemic Non-ischemic Problem 10/06/2018 eCW3 cardiomyopathy cardiomyopathy 12:00:00 AM ([facility]) I48.91 Atrial fibrillation, Atrial fibrillation, Problem 10/06 eCW3 unspecified type unspecified type 12:00:00 AM ( [facility]) I21.4 NSTEMI (non-ST elevated NSTEMI (non-ST Problem 10/07/19 19 eCW3 myocardial infarction) elevated myocardial 12:0 0:00 AM ([place] infarction) [facility]) I21.4 NSTEMI (non-ST elevated NSTEMI (non-ST Problem 10/07/19 19 eCW3 myocardial infarction) elevated myocardial 12:0 0:00 AM ([place] infarction) [facility]) I48.91 Atrial fibrillation, Atrial fibrillation, Problem 10/06 eCW3 unspecified type unspecified type 12:00:00 AM ( [facility]) I42.8 Non-ischemic Non-ischemic Problem 10/06/2018 eCW3 cardiomyopathy cardiomyopathy 12:00:00 AM ([facility]) E83.52 Hypercalcemia Hypercalcemia Problem 12/30/2017 eCW3 12:00:00 AM ([facility]) E83.52 Hypercalcemia Hypercalcemia Problem 12/30/2017 eCW3 12:00:00 AM ([facility]) E83.52 Hypercalcemia Hypercalcemia Problem 12/30/2017 eCW3 12:00:00 AM ([facility]) E83.52 Hypercalcemia Hypercalcemia Problem 12/30/2017 eCW3 12:00:00 AM ([facility]) E83.52 Hypercalcemia Hypercalcemia Problem 12/30/2017 eCW3 12:00:00 AM ([facility]) E83.52 Hypercalcemia Hypercalcemia Problem 12/30/2017 eCW2 12:00:00 AM ([facility]) E83.52 Hypercalcemia Hypercalcemia Problem 12/30/2017 eCW3 12:00:00 AM (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) E11.65 Type 2 diabetes Type 2 diabetes Problem 07/16/2017 eCW3 mellitus with mellitus with 12:00:00 AM ([facility]) Z79.4 nursing home current use nursing home current use Problem eCW3 of insulin of insulin 12:00:00 AM (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 07/16/2017 eCW3 cardiomyopathy cardiomyopathy 12:00:00 AM ([facility]) E11.65 Type 2 diabetes Type 2 diabetes Problem 07/16/2017 eCW3 mellitus with mellitus with 12:00:00 AM ([facility]) I10 Essential hypertension Essential (primary) Problem 04/19 eCW3 hypertension 12:00:00 AM ([facility]) I10 Essential hypertension Essential (primary) Problem 04/19 eCW3 hypertension 12:00:00 AM ([facility]) I10 Essential hypertension Essential (primary) Problem 04/19 eCW3 hypertension 12:00:00 AM ([facility]) I10 Essential hypertension Essential (primary) Problem 04/19 eCW3 hypertension 12:00:00 AM ([facility]) I10 Essential hypertension Essential (primary) Problem 04/19 [...] (primary) Problem 04/19 eCW3 hypertension 12:00:00 AM ([facility]) J45.41 Moderate persistent Moderate persistent Problem 017 eCW3 asthma with asthma with 12:00:00 AM ([place] exacerbation exacerbation [facility]) J45.41 Moderate persistent Moderate persistent Problem 017 eCW3 asthma with asthma with 12:00:00 AM ([place] exacerbation exacerbation [facility]) J45.41 Moderate persistent Moderate persistent Problem 017 eCW3 asthma with asthma with 12:00:00 AM ([place] exacerbation exacerbation [facility]) J45.41 Moderate persistent Moderate persistent Problem 017 eCW3 asthma with asthma with 12:00:00 AM ([place] exacerbation exacerbation [facility]) J45.41 Moderate persistent Moderate persistent Problem 017 eCW3 asthma with asthma with 12:00:00 AM ([place] exacerbation exacerbation [facility]) J45.41 Moderate persistent Moderate persistent Problem 017 eCW2 asthma with asthma with 12:00:00 AM ([place] exacerbation exacerbation [facility]) J45.41 Moderate persistent Moderate persistent Problem 017 eCW3 asthma with asthma with 12:00:00 AM ([place] exacerbation exacerbation [facility]) F40.9 Phobia Phobia Problem 03/05/2016 eCW2 12:00:00 AM ([facility]) F40.9 Phobia Phobia Problem 03/05/2016 eCW3 12:00:00 AM ([facility]) R20.2 Paresthesia Paresthesia Problem 02/26/2016 eCW2 12:00:00 AM ([facility]) R20.2 Paresthesia Paresthesia Problem 02/26/2016 eCW3 12:00:00 AM ([facility]) Z72.0 Tobacco abuse Tobacco abuse Problem 02/11/2015 eCW3 12:00:00 AM ([facility]) E11.9 Type II diabetes Type 2 diabetes Problem 02/11/2015 eCW 3 mellitus without mellitus without 12:00:00 AM ( [facility]) E78.0 Pure Hypercholesteremia Problem 02/11/2015 eCW3 hypercholesterolemia 12:00:00 AM ([facility]) E78.0 Pure Hypercholesteremia Problem 02/11/2015 eCW3 hypercholesterolemia 12:00:00 AM ([facility]) Z72.0 Tobacco abuse Tobacco abuse Problem 02/11/2015 eCW3 12:00:00 AM ([facility]) E11.9 Type II diabetes Type 2 diabetes Problem 02/11/2015 eCW 3 mellitus without mellitus without 12:00:00 AM ( [facility]) E11.9 Type II diabetes Type 2 diabetes Problem 02/11/2015 eCW 3 mellitus without mellitus without 12:00:00 AM ( [facility]) E78.0 Pure Hypercholesteremia Problem 02/11/2015 eCW3 hypercholesterolemia 12:00:00 AM ([facility]) Z72.0 Tobacco abuse Tobacco abuse Problem 02/11/2015 eCW3 12:00:00 AM ([facility]) E78.0 Pure Hypercholesteremia Problem 02/11/2015 eCW3 hypercholesterolemia 12:00:00 AM ([facility]) E11.9 Type II diabetes Type 2 diabetes Problem 02/11/2015 eCW 3 mellitus without mellitus without 12:00:00 AM ( [facility]) E78.0 Pure Hypercholesteremia Problem 02/11/2015 eCW3 hypercholesterolemia 12:00:00 AM ([facility]) Z72.0 Tobacco abuse Tobacco abuse Problem 02/11/2015 eCW3 12:00:00 AM ([facility]) E11.9 Type II diabetes Type 2 diabetes Problem 02/11/2015 eCW 2 mellitus without mellitus without 12:00:00 AM ( [facility]) Z72.0 Tobacco abuse Tobacco abuse Problem 02/11/2015 eCW2 12:00:00 AM ([facility]) J45.909 Asthma Asthma Problem 02/11/2015 eCW2 12:00:00 AM ([facility]) E78.0 Pure Hypercholesteremia Problem 02/11/2015 eCW2 hypercholesterolemia 12:00:00 AM ([facility]) Z72.0 Tobacco abuse Tobacco abuse Problem 02/11/2015 eCW3 12:00:00 AM ([facility]) E11.9 Type II diabetes Type 2 diabetes Problem 02/11/2015 eCW 3 mellitus without mellitus without 12:00:00 AM ( [place] complication complications [facility]) E78.0 Pure Hypercholesteremia Problem 02/11/2015 eCW3 hypercholesterolemia 12:00:00 AM ([facility]) J45.909 Asthma Asthma Problem 02/11/2015 eCW3 12:00:00 AM ([facility]) 425.4 Cardiomyopathy Cardiomyopathy Problem 09/11/2014 eCW2 12:00:00 AM ([facility]) 425.4 Cardiomyopathy Cardiomyopathy Problem 09/11/2014 eCW3 12:00:00 AM ([facility]) 729.5 Pain in limb Foot pain, bilateral Problem 08/07/2014 eC W2 12:00:00 AM ([facility]) 729.5 Pain in limb Foot pain, bilateral Problem 08/07/2014 eC W3 12:00:00 AM ([facility]) 891.0 Open wound of knee Wound of right leg Problem 5 eCW2 and/or leg and/or ankle 12:00:00 AM ([facility]) 891.0 Open wound of knee Wound of right leg Problem 5 eCW3 and/or leg and/or ankle 12:00:00 AM ([facility]) 793.80 Mammography abnormal Abnormal mammography Problem 06/26 eCW2 12:00:00 AM ([facility]) 793.80 Mammography abnormal Abnormal mammography Problem 06/26 eCW3 12:00:00 AM ([facility]) 785.6 Hilar lymphadenopathy Hilar lymphadenopathy Problem eCW2 12:00:00 AM ([facility]) 493.90 Moderate persistent Asthma, moderate Problem 01/30/2014 eCW2 asthma persistent 12:00:00 AM ([facility]) 493.90 Moderate persistent Asthma, moderate Problem 01/30/2014 eCW3 asthma persistent 12:00:00 AM ([facility]) 785.6 Hilar lymphadenopathy Hilar lymphadenopathy Problem eCW3 12:00:00 AM ([facility]) 790.6 Elevated liver enzymes Elevated LFTs Problem 12/07/2013 eCW2 level 12:00:00 AM ([facility]) 790.6 Elevated liver enzymes Elevated LFTs Problem 12/07/2013 eCW3 level 12:00:00 AM ([facility]) 272.0 Hypercholesterolemia Hypercholesterolemia Problem 10/18 eCW2 12:00:00 AM ([facility]) 272.0 Hypercholesterolemia Hypercholesterolemia Problem 10/18 eCW3 12:00:00 AM (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 ([facility]) 278.00 Obesity OBESITY NOS Problem eCW2 ([facility]) 357.2 Diabetic neuropathy NEUROPATHY IN DIABETES Problem eCW2 ([facility]) 268.9 Vitamin D deficiency Vitamin D deficiency Problem eCW2 NOS ([facility]) 311 Depressive disorder Depression Disorder Problem eCW2 NOS ([facility]) 296.60 Mixed bipolar I Bipolar affective Problem eC W2 disorder disorder, mixed ([facility]) 715.90 Generalized Osteoarthritis Problem eCW2 osteoarthritis generalized ([facility]) 477.9 Allergic rhinitis ALLERGIC RHINITIS NOS Problem eCW2 ([facility]) 250.00 Diabetes mellitus type Diabetes mellitus type Problem eCW2 2 2 ([facility]) 401.9 Hypertension Hypertension Problem eCW2 ([facility]) 305.1 Tobacco abuse Tobacco Abuse Problem eCW2 ([facility]) 530.11 Gastroesophageal reflux GERD Problem e CW2 disease ([facility]) 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 ([facility]) 250.00 Diabetes mellitus type Diabetes mellitus type Problem eCW3 2 2 ([facility]) 401.9 Hypertension Hypertension Problem eCW3 ([facility]) 305.1 Tobacco abuse Tobacco Abuse Problem eCW3 ([facility]) 530.11 Gastroesophageal reflux GERD Problem e CW3 disease ([facility]) 357.2 Diabetic neuropathy NEUROPATHY IN DIABETES Problem eCW3 ([facility]) 278.00 Obesity OBESITY NOS Problem eCW3 ([facility]) 311 Depressive disorder Depression Disorder Problem eCW3 NOS ([facility]) 268.9 Vitamin D deficiency Vitamin D deficiency Problem eCW3 NOS ([facility]) 715.90 Generalized Osteoarthritis Problem eCW3 osteoarthritis generalized ([facility]) 296.60 Mixed bipolar I Bipolar affective Problem eC W3 disorder disorder, mixed ([facility]) 477.9 Allergic rhinitis ALLERGIC RHINITIS NOS Problem eCW3 ([facility]) F17.210 Nicotine dependence, NICOTINE DEPENDENCE, Diagnosis 12/11 cigarettes, CIGARETTES, 04:44:00 PM [facility] uncomplicated UNCOMPLICATED [facility] I10 Essential (primary) ESSENTIAL (PRIMARY) Diagnosis hypertension HYPERTENSION 04:44:00 PM [facility] E11.9 Type 2 diabetes TYPE 2 DIABETES Diagnosis 12/12/2019 Holly t mellitus without MELLITUS WITHOUT 04:44:00 PM J osephs complications COMPLICATIONS [facility] J45.909 Unspecified asthma, UNSPECIFIED ASTHMA, Diagnosis [facility] uncomplicated UNCOMPLICATED 04:44:00 PM [facility] Y99.9 Unspecified external UNSPECIFIED EXTERNAL Diagnosis 12/11 cause status CAUSE STATUS 04:44:00 PM [facility] Y92.[address] in UNSP PLACE IN UNSP Diagnosis 020 [facility] unspecified NON-INSTITUT (PRIVATE) 04:44:00 PM [facility] non-institutional RESIDENCE PLACE EDT Medical (private) residence as Ce nter the place of occurrence of the external cause Y93.9 Activity, unspecified ACTIVITY, UNSPECIFIED Diagnosis [facility] 04:44:00 PM [facility] W01.0XX Fall on same level from FALL SAME LEV FROM Diagnosis 11/17 A slipping, tripping and SLIP/TRIP W/O STRIKE 04: 44:00 PM Joanne stumbling without AGAINST OBJECT, INIT EDT Medical subsequent striking Jude alcaraz against object, initial encounter M54.6 Pain in thoracic spine PAIN IN THORACIC SPINE Diagnosis 0 12/12/2019 [facility] 04:44:00 PM [facility] M54.2 Cervicalgia CERVICALGIA Diagnosis 12/12/2019 [facility] 04:44:00 PM [facility] I48.91 Unspecified atrial UNSPECIFIED ATRIAL Diagnosis 9 fibrillation FIBRILLATION 05:19:00 AM [facility] G90.09 Other idiopathic OTHER IDIOPATHIC Diagnosis 02/02/2019 Sa int peripheral autonomic PERIPHERAL AUTONOMIC 05:19 :00 AM [facility] neuropathy NEUROPATHY [facility] 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/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 [place] CORONARY 05:19:00 A Jamar Rubio coronary artery [...] 02/02/2019 (congestive) heart (CONGESTIVE) HEART 05:19:00 AM [facility] failure FAILURE [facility] R06.00 Dyspnea, unspecified DYSPNEA, UNSPECIFIED Diagnosis 02/02 [facility] 05:19:00 AM [facility] Surgeries/Procedures Procedure Description Date Indications Data Source(s) EKG W INTERPRETATION 11/02/2018 eCW3 ([facility] 12:00:00 AM [facility] EDT Care) O-TR2 TRANS TO/FROM THE 01/24/2018 eCW2 ([place] REFERRAL APPOINT 12:00:00 AM [facility] EDT Care) O-CM2 CASE MANAGEMENT 01/17/2018 eCW2 ( [place] FOLLOWUP 12:00:00 AM [facility] EDT Care) COLLECTION CAPILLARY 01/06/2018 eCW2 ([facility] BLOOD SPECIMEN 12:00:00 AM [facility] EDT Care) GLUC BLD GLUC MNTR DEV 01/06/2018 eCW2 ([facility] FDA SPEC HOME 12:00:00 AM [facility] EDT Care) No Known procedures No Known procedures e CW2 ([facility]) No Known procedures No Known procedures e CW2 ([facility]) Results ID Date Data Source [id number] 12/04/2019 03:12:00 PM EDT [facility] Name Value Range Interpretation Description Data Sup porting Code Source(s) Document(s ) SARS [facility] coronavirus 2 RNA This lab was ordered by [facility] and reported by [facility]. ID Date Data Source [id number] 11/24/2019 10:00:00 AM EDT [facility] Name Value Range Interpretation Description Data Sup porting Code Source(s) Document(s ) SARS [facility] coronavirus 2 RNA This lab was ordered by [facility] and reported by [facility]. ID Date Data Source [id number] 11/06/2019 07:15:00 AM EDT [facility] Name Value Range Interpretation Description Data Sup porting Code Source(s) Document(s ) SARS [facility] coronavirus 2 RNA This lab was ordered by [facility] and reported by [facility]. ID Date Data Source [id number] 10/24/2019 09:28:00 AM EDT [facility] Name Value Range Interpretation Description Data Sup porting Code Source(s) Document(s ) SARS [facility] coronavirus 2 RNA This lab was ordered by [facility] and reported by [facility]. ID Date Data Source [id number] 10/13/2019 08:15:00 AM EDT [facility] Name Value Range Interpretation Description Data Sup porting Code Source(s) Document(s ) SARS [facility] CORONAVIRUS 2 RNA This lab was ordered by [facility] and reported by [facility]. ID Date Data Source [id number] 09/26/2019 07:59:00 AM EDT [facility] Name Value Range Interpretation Description Data Sup porting Code Source(s) Document(s ) SARS [facility] CORONAVIRUS 2 RNA This lab was ordered by [facility] and reported by [facility]. ID Date Data Source [id number] 09/16/2019 02:25:00 PM EDT [facility] Name Value Range Interpretation Description Data Sup porting Code Source(s) Document(s ) SARS [facility] CORONAVIRUS 2 RNA This lab was ordered by [facility] and reported by [facility]. ID Date Data Source Liver 02/04/2019 05:30:00 AM EDT [facility] Profile.[id number] Name Value Range Interpretation Description Data Sup [...] s"> (3.5-5.0 G/DL)</content> ID Date Data Source HematologyRou.[id number] 02/04/2019 05:30:00 AM EDT [facility] 0400 Name Value Range Interpretation Description [...] (< 1 %)</content> ID Date Data Source GFR(Creatinine).[id number] 02/04/2019 05:30:00 AM EDT [facility] 0-0400 Name Value Range Interpretation Code Description Data Sally rce(s) Supporting Document(s ) UNK > 60 Below low normal <content [facility] styleCode="Bold"> Medical Cent er EGFR </content>60 GFR L<content styleCode="Italic s"> (> 60 GFR)</content> ID Date Data Source MRRON.[id number] 02/04/2019 05:30:00 AM EDT [facility] -0400 Name Value Range Interpretation Description Data Sup porting Code Source(s) Document(s ) UNK >= 1.0 <content [facility] styleCode="Bold Medical ">AG Ratio Center </content>1.3 <content styleCode="Ital ics"> (>= 1.0 )</content> UNK 2.3-3.5 <content [facility] styleCode="Bold Medical ">Globulin Center </content>3.0 G/DL<content styleCode="Ital ics"> (2.3-3.5 G/DL)</content> Protein 6.3-8.2 <content [facility] [Mass/volum styleCode="Bold Medical e] in Serum ">Total Protein Center or Plasma </content>6.8 G/DL<content styleCode="Ital ics"> (6.3-8.2 G/DL)</content> ID Date Data Source [facility].[id number] 02/04/2019 05:30:00 AM EDT [facility] Name Value Range Interpretation Description [...] MG/DL)</content> Alkaline 38-126 <content [facility] phosphatase styleCode="Bold"> [facility] [Enzymatic Alkaline Medical activity/volume] Phosphatase (ALP) Cente [...] IU/L)</content> Alanine 7-30 <content [facility] aminotransferase styleCode="Bold"> [facility] [Enzymatic Alanine Medical activity/volume] Aminotransferase Center in Serum or Plasma (ALT) </content>22 IU/L<content styleCode="Italic s"> (7-30 IU/L)</content> Albumin 3.5-5.0 <content [facility] [Mass/volume] in styleCode="Bold"> Isak hs Serum or Plasma Albumin Medical </content>3.8 Center G/DL<content styleCode="Italic s"> (3.5-5.0 G/DL)</content> ID Date Data Source Hormones.[id number] 02/03/2019 06:00:00 AM STEVENT [facility] t [facility] Name Value Range Interpretation Description Data Sup porting Code Source(s) Document(s ) Thyrotropin 0.465-4. Above high normal <content [facility] [Units/volume] 68 styleCode="Robby Joanne in Serum or d">Thyroid Medical Plasma by Stimulating Center Detection Hormone limit <= 0.05 </content>4.85 mIU/L MIU/L H<content styleCode="Ny lics"> (0.465-4.68 MIU/L)</conten t> ID Date Data Source HematologyRou.[id number] 02/03/2019 06:00:00 AM EDT [facility] 0400 Name Value Range Interpretation Description [...] (0.0 KCUMM)</content > ID Date Data Source GFR(Creatinine).[id number] 02/03/2019 06:00:00 AM EDT [facility] 0-0400 Name Value Range Interpretation Code Description Data Sally rce(s) Supporting Document(s ) UNK > 60 <content [facility] styleCode="Bold"> Medical Cent er EGFR </content>84 GFR<content styleCode="Italic s"> (> 60 GFR)</content> ID Date Data Source CHMROUTINECCDA.[id number] 02/03/2019 06:00:00 AM EDT [facility] -0400 Name Value Range Interpretation Description Data Sup porting Code Source(s) Document(s ) Magnesium 1.6-2.3 Below low normal <content [facility] [Mass/volume] styleCode="Robby Joanne in Serum or d">Magnesium Medical Plasma </content>1.5 Center MG/DL L<content styleCode="Ny lics"> (1.6-2.3 MG/DL)</conten t> UNK 4.2-5.8 Above high normal <content [facility] styleCode="Robby Joanne d">Hemoglobin Medical A1C Center </content>8.6 % H<content styleCode="Ny lics"> (4.2-5.8 %)</content> Phosphate 2.5-4.5 <content [facility] [Mass/volume] styleCode="Rboby Joanne in Serum or d">Phosphorus Medical Plasma </content>4.2 Center MG/DL<content styleCode="Ny lics"> (2.5-4.5 MG/DL)</conten t> ID Date Data Source CardiacMarkers.[id number] 02/03/2019 06:00:00 AM EDT [facility] -0400 Name Value Range Interpretation Description Data Sup porting Code Source(s) Document(s ) Troponin < 0.034 <content Saint I.cardiac styleCode="Bold Joanne [Mass/volume ">Troponin I Medical ] in Serum </content>0.033 Center or Plasma NG/ML<content styleCode="Ital ics"> (< 0.034 NG/ML)</content > ID Date Data Source [facility].[id number] 02/03/2019 06:00:00 AM EDT [facility] Name Value Range Interpretation [...] (> 60 GFR)</content> ID Date Data Source Urinalysis.[id number] 02/02/2019 07:10:00 AM EDT [facility] 0 Name Value Range Interpretation Description Data [...] by Test d">Urine Medical strip Specific Center [place] </content>1.01 0 L<content styleCode="Ny lics"> (1.015-1.025 )</content> [...] lics"> (NEGATIVE HPF)</content> ID Date Data Source LIPID.[id number] 02/02/2019 06:35:00 AM EDT [facility] Name Value Range Interpretation Description Data Sup porting Code Source(s) Document(s ) Cholesterol -<200 <content [facility] [Mass/volume] in styleCode="Robby Joanne Serum or Plasma d">Cholesterol Medical </content>133 Center MG/DL<content styleCode="Ny lics"> (-<200 MG/DL)</conten t> Triglyceride < 150 <content [facility] [Mass/volume] in styleCode="Robby Joanne Serum or Plasma d">Triglycerid [facility] es Center </content>94 MG/DL<content styleCode="Ny lics"> (< 150 MG/DL)</conten t> UNK < 100 <content [facility] styleCode="Robby Joanne d">LDL-Cholest Medical simon Center </content>57 MG/DL<content styleCode="Ny lics"> (< 100 MG/DL)</conten t> UNK > 60 Below low normal <content [facility] styleCode="Robby Joanne d">HDL- Medical Cholesterol Center </content>57 MG/DL L<content styleCode="Ny lics"> (> 60 MG/DL)</conten t> ID Date Data Source GFR(Creatinine).[id number] 02/02/2019 06:35:00 AM EDT [facility] 0-0400 Name Value Range Interpretation Code Description Data Sally rce(s) Supporting Document(s ) UNK > 60 <content [facility] styleCode="Bold"> Medical Cent er EGFR </content>113 GFR<content styleCode="Italic s"> (> 60 GFR)</content> ID Date Data Source Coagulation 02/02/2019 06:35:00 AM [facility] ical Center Rout.[id number] EDT Name Value Range Interpretation Description Data [...] (< 500 ngFEU)</content> ID Date Data Source CardiacMarkers.[id number] 02/02/2019 06:35:00 AM EDT [facility] -0400 Name Value Range Interpretation Description Data Sup porting Code Source(s) Document(s ) Troponin < 0.034 Above upper panic <content Saint I.cardiac limits styleCode="Bold Joanne [Mass/volume ">Troponin I Medical ] in Serum </content><cont Center or Plasma ent styleCode="Bold ">0.038 NG/ML HH</content><co ntent styleCode="Ital ics"> (< 0.034 NG/ML)</content > ID Date Data Source [facility].[id number] 02/02/2019 06:35:00 AM EDT [facility] Name Value Range Interpretation [...] (> 60 GFR)</content> ID Date Data Source HematologyRou.[id number] 02/02/2019 06:00:00 AM EDT [facility] 0400 Name Value Range Interpretation Description [...] (0.0 KCUMM)</content > ID Date Data Source GFR(Creatinine).[id number] 02/02/2019 06:00:00 AM EDT [facility] 0-0400 Name Value Range Interpretation Code Description Data Sally rce(s) Supporting Document(s ) UNK <content [facility] styleCode="Bold"> Medical Cent er EGFR </content>TNP (Reference Range: not available)
ID Date Data Source Coagulation 02/02/2019 06:00:00 AM [facility] ical Center Rout.[id number] EDT Name Value Range Interpretation Description Data [...] Range: not available)
ID Date Data Source CardiacMarkers.[id number] 02/02/2019 06:00:00 AM EDT [facility] -0400 Name Value Range Interpretation Description Data Sup porting Code Source(s) Document(s ) Troponin <content [facility] I.cardiac styleCode="Bold Medical [Mass/volume ">Troponin I Center ] in Serum </content>TNP or Plasma (Reference Range: not available)
ID Date Data Source BMP.[id number] 02/02/2019 06:00:00 AM EDT [facility] Name Value Range Interpretation Description [...] with 01/06/2018 12:00:00 AM EDT eCW2 ([facility] Glucometer, In House.0 Care) Name Value Range Interpretation Code Description Data Sally rce(s) Supporting Document(s ) 265 65 mg/dL - Capillary eCW2 ([place] 110 mg/dL Glucose [facility]) Capillary eCW2 ([place] GlucoseTest #2 [facility]) Capillary eCW2 ([place] Glucose Test#3 [facility]) Procedure Social History Code Duration Value Status Description Data Source(s ) Smoking 12/20/2019 Never Smoker completed Never Smoker eCW3 ([place] [facility] 12:00:00 AM [facility]) Smoking 12/20/2019 Never Smoker completed Never Smoker eCW3 ([place] [facility] 12:00:00 AM [facility]) Smoking 12/12/2019 Daily Smoker completed Daily Smoker [facility] 07:54:00 PM EDT Medical C enter Smoking 12/12/2019 Daily Smoker completed Daily Smoker [facility] 06:31:00 PM EDT Medical C enter Smoking 12/12/2019 Daily Smoker completed Daily Smoker [facility] 05:00:00 PM EDT Medical C enter Smoking 11/30/2019 Never Smoker completed Never Smoker eCW3 ([place] [facility] 12:00:00 AM [facility]) Smoking 11/30/2019 Never Smoker completed Never Smoker eCW3 ([place] [facility] 12:00:00 AM [facility]) Smoking 11/30/2019 Never Smoker completed Never Smoker eCW3 ([place] [facility] 12:00:00 AM [facility]) Smoking 11/12/2019 Never Smoker completed Never Smoker eCW3 ([place] [facility] 12:00:00 AM [facility]) Smoking 09/24/2019 Never Smoker completed Never Smoker eCW3 ([place] [facility] 12:00:00 AM [facility]) Smoking 09/24/2019 Never Smoker completed Never Smoker eCW3 ([place] [facility] 12:00:00 AM [facility]) Smoking 09/24/2019 Never Smoker completed Never Smoker eCW3 ([place] [facility] 12:00:00 AM [facility]) Smoking 09/24/2019 Never Smoker completed Never Smoker eCW3 ([place] [facility] 12:00:00 AM [facility]) Smoking 09/24/2019 Never Smoker completed Never Smoker eCW3 ([place] [facility] 12:00:00 AM [facility]) Smoking 09/21/2019 Never Smoker completed Never Smoker eCW3 ([place] [facility] 12:00:00 AM [facility]) Smoking 09/13/2019 Never Smoker completed Never Smoker eCW3 ([place] [facility] 12:00:00 AM [facility]) Smoking 09/06/2019 Never Smoker completed Never Smoker eCW3 ([place] [facility] 12:00:00 AM [facility]) Smoking 09/06/2019 Never Smoker completed Never Smoker eCW3 ([place] [facility] 12:00:00 AM [facility]) Smoking 09/06/2019 Never Smoker completed Never Smoker eCW3 ([place] [facility] 12:00:00 AM [facility]) Smoking 09/06/2019 Never Smoker completed Never Smoker eCW3 ([place] [facility] 12:00:00 AM [facility]) Smoking 09/06/2019 Never Smoker completed Never Smoker eCW3 ([place] [facility] 12:00:00 AM [facility]) Smoking 08/06/2019 Never Smoker completed Never Smoker eCW3 ([place] [facility] 12:00:00 AM [facility]) Smoking 08/06/2019 Never Smoker completed Never Smoker eCW3 ([place] [facility] 12:00:00 AM [facility]) Smoking 08/06/2019 Never Smoker completed Never Smoker eCW3 ([place] [facility] 12:00:00 AM [facility]) Smoking 08/06/2019 Never Smoker completed Never Smoker eCW3 ([place] [facility] 12:00:00 AM [facility]) Smoking 08/06/2019 Never Smoker completed Never Smoker eCW3 ([place] [facility] 12:00:00 AM [facility]) Smoking 07/05/2019 Never Smoker completed Never Smoker eCW3 ([place] [facility] 12:00:00 AM [facility]) Smoking 07/05/2019 Never Smoker completed Never Smoker eCW3 ([place] [facility] 12:00:00 AM [facility]) Smoking 07/05/2019 Never Smoker completed Never Smoker eCW3 ([place] [facility] 12:00:00 AM [facility] [facility] 07/05/2019 Never Smoker completed Never Smoker eCW3 ([place] 12:[place]:00 AM [facility]) Smoking 05/25/2019 Current Smoker completed Current Smoker eCW3 ( [place] 12:[place]:00 AM [facility]) Smoking 02/02/2019 Daily Smoker completed Daily Smoker [...] Current Smoker eCW3 ( [place] 12:[place]:00 AM [facility]) Smoking 02/27/2018 Current Smoker completed Current Smoker eCW3 ( [place] 12:00:00 AM [facility]) Smoking 02/27/2018 Current Smoker completed Current Smoker eCW3 ( [place] 12:00:00 AM [facility]) Smoking 02/27/2018 Current Smoker completed Current Smoker eCW3 ( [place] 12:00:00 AM [facility]) Never Smoker completed Never Smoker eCW3 ([place] [facility]) Never Smoker completed Never Smoker eCW3 ([facility]) Never Smoker completed Never Smoker eCW3 ([facility]) Never Smoker completed Never Smoker eCW3 ([facility]) Never Smoker completed Never Smoker eCW3 ([facility]) Never Smoker completed Never Smoker eCW3 ([facility]) Never Smoker completed Never Smoker eCW3 ([facility] Never Smoker completed Never Smoker eCW3 ([facility]) Never Smoker completed Never Smoker eCW3 ([facility]) Never Smoker completed Never Smoker eCW3 ([facility]) Never Smoker completed Never Smoker eCW3 ([facility]) Never Smoker completed Never Smoker eCW3 ([facility]) Never Smoker completed Never Smoker eCW3 ([facility]) Never Smoker completed [...] Interpretation Code Description Data Source(s) Body temperature 36.591009 36.077311 [facility] Respiratory rate 16 /min 16 /min [facility] Oxygen saturation 98 % 98 % [facility] blood [facility] by Pulse oximetry Heart rate 84 /min 84 /min [facility] Diastolic blood 86 mm[Hg] 86 mm[Hg] [facility] pressure [facility] Center Systolic blood 132 mm[Hg] 132 mm[Hg] [facility] Body temperature 36.806300 36.064644 [facility] Respiratory rate 19 /min 19 /min [facility] Oxygen saturation 99 % 99 % [facility] by Pulse oximetry Heart rate 80 /min 80 /min [facility] Diastolic blood 92 mm[Hg] 92 mm[Hg] [facility] pressure Medical Center Systolic blood 130 mm[Hg] 130 mm[Hg] [facility] Body weight 85.125052 kg 85.661154 kg [facility] [place] Body temperature 36.630763 36.303056 [facility] Respiratory rate 18 /min 18 /min [facility] Oxygen saturation 97 % 97 % [facility] by Pulse oximetry Heart rate 96 /min 96 /min [facility] Body height 170.357879 170.206814 cm [facility] Diastolic blood 92 mm[Hg] 92 mm[Hg] [facility] pressure [facility] Systolic blood 124 mm[Hg] 124 mm[Hg] [facility] Body mass index 29.3 kg/m2 29.3 kg/m2 [facility] (BMI) [Ratio] Medical [place] [address] Oxygen saturation 98 % 98 % [facility] by Pulse oximetry Body temperature 36.015026 36.340129 [facility] Respiratory rate 20 /min 20 /min [facility] Heart rate 92 /min 92 /min [facility] Diastolic blood 94 mm[Hg] 94 mm[Hg] [facility] pressure [facility] Systolic blood 141 mm[Hg] 141 mm[Hg] [facility] Body temperature 36.703393 36.497679 [facility] Respiratory rate 20 /min 20 /min [facility] Heart rate 74 /min 74 /min [facility] Diastolic blood 81 mm[Hg] 81 mm[Hg] [facility] Systolic blood 148 mm[Hg] 148 mm[Hg] [facility] Body weight 105.238218 105.535654 kg [facility] Measured kg Medical Center Body temperature 36.251770 36.708427 [facility] Respiratory rate 20 /min 20 /min [facility] Heart rate 85 /min 85 /min [facility] Diastolic blood 78 mm[Hg] 78 mm[Hg] [facility] Systolic blood 133 mm[Hg] 133 mm[Hg] [facility] Body temperature 36.170800 36.162310 [facility] Respiratory rate 20 /min 20 /min [facility] Heart rate 89 /min 89 /min [facility] Diastolic blood 79 mm[Hg] 79 mm[Hg] [facility] Systolic blood 137 mm[Hg] 137 mm[Hg] [facility] Body temperature 37.707871 37.184575 [facility] Respiratory rate 20 /min 20 /min [facility] Heart rate 72 /min 72 /min [facility] Diastolic blood 93 mm[Hg] 93 mm[Hg] [facility] Systolic blood 159 mm[Hg] 159 mm[Hg] [facility] Oxygen saturation 99 % 99 % [facility] blood [facility] by Pulse oximetry Body weight 107.913010 107.709595 kg [facility] Measured kg Medical Center Body height 173.666990 173.134502 cm [facility] Body mass index 35.51 kg/m2 35.51 kg/m2 [facility] (BMI) [Ratio] Medical [facility] ter Body weight 107.837435 107.061762 kg [facility] Measured kg Medical Center Oxygen saturation 100 % 100 % [facility] blood [facility] by Pulse oximetry Body height 173.898941 173.898580 cm [facility] Body mass index 35.51 kg/m2 35.51 kg/m2 [facility] (BMI) [Ratio] Medical [facility] ter Body temperature 36.499103 36.251051 [facility] Respiratory rate 18 /min 18 /min [facility] Heart rate 71 /min 71 /min [facility] Diastolic blood 92 mm[Hg] 92 mm[Hg] [facility] Systolic blood 143 mm[Hg] 143 mm[Hg] [facility] [place] Body weight 107.520139 107.129115 kg [facility] Measured kg Medical Center Body temperature 36.411090 36.402087 [facility] Respiratory rate 20 /min 20 /min [facility] Heart rate 80 /min 80 /min [facility] Diastolic blood 94 mm[Hg] 94 mm[Hg] [facility] Medical [place] Systolic blood 132 mm[Hg] 132 mm[Hg] [facility] Oxygen saturation 97 % 97 % [facility] Arterial blood Medical Center by Pulse oximetry Body temperature 36.761461 36.714674 [facility] Respiratory rate 18 /min 18 /min [facility] Heart rate 85 /min 85 /min [facility] Diastolic blood 77 mm[Hg] 77 mm[Hg] [facility] Systolic blood 141 mm[Hg] 141 mm[Hg] [facility] Oxygen saturation 98 % 98 % [facility] Arter[facility] blood [facility] Center by Pulse oximetry Body temperature 36.446263 36.540469 [facility] Respiratory rate 18 /min 18 /min [facility] Heart rate 83 /min 83 /min [facility] Diastolic blood 80 mm[Hg] 80 mm[Hg] [facility] Systolic blood 137 mm[Hg] 137 mm[Hg] [facility] Body temperature 37.980633 37.712878 [facility] Respiratory rate 18 /min 18 /min [facility] Oxygen saturation 97 % 97 % [facility] Arterial blood Medical Center by Pulse oximetry Heart rate 82 /min 82 /min [facility] Diastolic blood 78 mm[Hg] 78 mm[Hg] [facility] Systolic blood 138 mm[Hg] 138 mm[Hg] [facility] Oxygen saturation 97 % 97 % [facility] Arterial blood [facility] Center by Pulse oximetry Diastolic blood 137 mm[Hg] 137 mm[Hg] eCW3 ([facility]) Systolic blood 159 mm[Hg] 159 mm[Hg] eCW3 ([facility]) Body temperature 98.1 [degF] 98.1 [degF] eCW3 ( [facility]) Heart rate 20 /min 20 /min eCW3 ([facility]) Body mass index 34.36 kg/m2 34.36 kg/m2 eCW3 ([place] (BMI) [Ratio] [facility]) Body weight 226 [lb_av] 226 [lb_av] eCW3 ([facility]) Body height 68 [in_i] 68 [in_i] eCW3 ([facility]) Diastolic blood 85 mm[Hg] 85 mm[Hg] eCW3 ([facility]) Systolic blood 129 mm[Hg] 129 mm[Hg] eCW3 ([facility]) Body temperature 98 [degF] 98 [degF] eCW3 ([facility]) Heart rate 20 /min 20 /min eCW3 ([facility]) Body mass index 35.27 kg/m2 35.27 kg/m2 eCW3 ([place] (BMI) [Ratio] [facility]) Body weight 232 [lb_av] 232 [lb_av] eCW3 ([facility]) Body height 68 [in_i] 68 [in_i] eCW3 ([facility]) Diastolic blood 74 mm[Hg] 74 mm[Hg] eCW3 ([facility]) Systolic blood 111 mm[Hg] 111 mm[Hg] eCW3 ([facility]) Body temperature 97.8 [degF] 97.8 [degF] eCW3 ( [facility]) Heart rate 20 /min 20 /min eCW3 ([facility]) Body mass index 35.27 kg/m2 35.27 kg/m2 eCW3 ([place] (BMI) [Ratio] [facility]) Body weight 232 [lb_av] 232 [lb_av] eCW3 ([facility]) Body height 68 [in_i] 68 [in_i] eCW3 ([facility]) Diastolic blood 61 mm[Hg] 61 mm[Hg] eCW3 ([facility]) Systolic blood 90 mm[Hg] 90 mm[Hg] eCW3 ([facility]) Body temperature 98.2 [degF] 98.2 [degF] eCW3 ( [facility]) Heart rate 20 /min 20 /min eCW3 ([facility]) Body mass index 33.45 kg/m2 33.45 kg/m2 eCW3 ([place] (BMI) [Ratio] [facility]) Body weight 220 [lb_av] 220 [lb_av] eCW3 ([facility]) Body height 68 [in_i] 68 [in_i] eCW3 ([facility]) Diastolic blood 67 mm[Hg] 67 mm[Hg] eCW3 ([facility]) Systolic blood 99 mm[Hg] 99 mm[Hg] eCW3 ([facility]) Body temperature 97.9 [degF] 97.9 [degF] eCW3 ( [facility]) Heart rate 20 /min 20 /min eCW3 ([facility]) Body mass index 33.45 kg/m2 33.45 kg/m2 eCW3 ([place] (BMI) [Ratio] [facility]) Body weight 220 [lb_av] 220 [lb_av] eCW3 ([facility]) Body height 68 [in_i] 68 [in_i] eCW3 ([facility]) Diastolic blood 88 mm[Hg] 88 mm[Hg] eCW3 ([facility]) Systolic blood 138 mm[Hg] 138 mm[Hg] eCW3 ([facility]) Body temperature 98.2 [degF] 98.2 [degF] eCW3 ( [facility]) Heart rate 20 /min 20 /min eCW3 ([facility]) Body mass index 33.45 kg/m2 33.45 kg/m2 eCW3 ([place] (BMI) [Ratio] [facility]) Body weight 220 [lb_av] 220 [lb_av] eCW3 ([facility]) Body height 68 [in_i] 68 [in_i] eCW3 ([facility]) Diastolic blood 74 mm[Hg] 74 mm[Hg] eCW3 ([facility]) Systolic blood 109 mm[Hg] 109 mm[Hg] eCW3 ([facility]) Body temperature 98.1 [degF] 98.1 [degF] eCW3 ( [facility]) Heart rate 20 /min 20 /min eCW3 ([facility]) Body mass index 33.14 kg/m2 33.14 kg/m2 eCW3 ([place] (BMI) [Ratio] [facility]) Body weight 218 [lb_av] 218 [lb_av] eCW3 ([facility]) Body height 68 [in_i] 68 [in_i] eCW3 ([facility]) Diastolic blood 76 mm[Hg] 76 mm[Hg] eCW3 ([facility]) Systolic blood 108 mm[Hg] 108 mm[Hg] eCW3 ([facility]) Body temperature 97.5 [degF] 97.5 [degF] eCW3 ( [facility]) Heart rate 20 /min 20 /min eCW3 ([facility]) Body mass index 33.90 kg/m2 33.90 kg/m2 eCW3 ([place] (BMI) [Ratio] [facility]) Body weight 223 [lb_av] 223 [lb_av] eCW3 ([facility]) Body height 68 [in_i] 68 [in_i] eCW3 ([facility]) Diastolic blood 66 mm[Hg] 66 mm[Hg] eCW2 ([facility]) Systolic blood 93 mm[Hg] 93 mm[Hg] eCW2 ([facility]) Body temperature 97.8 [degF] 97.8 [degF] eCW2 ( [facility]) Heart rate 20 /min 20 /min eCW2 ([facility]) Body mass index 33.30 kg/m2 33.30 kg/m2 eCW2 ([place] (BMI) [Ratio] [facility]) Body weight 219 [lb_av] 219 [lb_av] [facility] Body height 68 [in_us] 68 [in_us] eCW2 ([facility]) Patient Treatment Plan of Care Planned Activity Planned Date Details Description Data Source (s) Cyclobenzaprine 12/21/2019 eCW3 ([place] hydrochloride 10 MG Oral 12:00:00 AM [facility]) Tablet Sertraline 25 MG Oral 12/21/2019 eCW3 ( [place] Tablet 12:00:00 AM [facility]) Cyclobenzaprine 12/21/2019 eCW3 ([place] hydrochloride 10 MG Oral 12:00:00 AM [facility]) Tablet Sertraline 25 MG Oral 12/21/2019 eCW3 ( [place] Tablet 12:00:00 AM [facility]) [employer] - 09/29/2019 eCW3 ([place] 12:[place]:[facility] AM [facility]) [employer] - 09/29/2019 eCW3 ([place] 12:00:00 AM [facility]) [employer] - 09/29/2019 eCW3 ([place] 12[facility]00:00 AM [facility]) [employer] - 09/29/2019 eCW3 ([place] 12:00:00 AM [facility]) [employer] - 09/29/2019 eCW3 ([place] 12:00:00 AM [facility]) COLLAGENASE 0.25 UNT/MG 09/21/2019 eCW3 ([place] Topical Ointment [Santyl] 12:00:00 AM [facility]) Sulfamethoxazole 800 MG / 09/13/2019 eC W3 ([place] Trimethoprim 160 MG Oral 12:00:00 AM [facility]) Tablet [Bactrim] Albuterol 0.83 MG/ML 09/13/2019 eCW3 ([place] Inhalant Solution 12:00:00 AM [facility]) Albuterol 0.83 MG/ML 09/13/2019 eCW3 ([place] Inhalant Solution 12:00:00 AM [facility]) GAUZE NON-STICK 4 X 4 09/13/2019 eCW3 ( [place] 12:00:00 AM [facility]) Bacitracin 0.5 UNT/MG 09/13/2019 eCW3 ( [place] Topical Ointment 12:00:00 AM EDT Health C are) GAUZE NON-STICK 4 X 4 09/13/2019 eCW3 ( [place] 12:00:00 AM [facility]) Prednisone 10 MG Oral 09/13/2019 eCW3 ( [place] Tablet 12:00:00 AM [facility] Health Care) Bacitracin 0.5 UNT/MG 09/13/2019 eCW3 ( [place] Topical Ointment 12:00:00 AM ED Health C are) Sulfamethoxazole 800 MG / 09/13/2019 eC W3 ([place] Trimethoprim 160 MG Oral 12:00:00 AM [facility] Health Care) Tablet [Bactrim] Prednisone 50 MG Oral 08/06/2019 eCW3 ( [place] Tablet 12:00:00 AM [facility] Health Care) Wheelchair - 08/06/2019 eCW3 ([place] 12:00:00 AM [facility] Care) Prednisone 50 MG Oral 08/06/2019 eCW3 ( [place] Tablet 12:00:00 AM T Health Care) Wheelchair - 08/06/2019 eCW3 ([place] 12:00:00 AM [facility] Health Care) Prednisone 50 MG Oral 08/06/2019 eCW3 ( [place] Tablet 12:00:00 AM [facility] Health Care) Wheelchair - 08/06/2019 eCW3 ([place] 12:00:00 AM [facility] Health Care) Prednisone 50 MG Oral 08/06/2019 eCW3 ( [place] Tablet 12:00:00 AM [facility] Health Care) Wheelchair - 08/06/2019 eCW3 ([place] 12:00:00 AM [facility]) Prednisone 50 MG Oral 08/06/2019 eCW3 ( [place] Tablet 12:00:00 AM T Health Care) Wheelchair - 08/06/2019 eCW3 ([place] 12:00:00 AM [facility] Health Care) Prednisone 50 MG Oral 08/06/2019 eCW3 ( [place] Tablet 12:00:00 AM [facility] Health Care) Wheelchair - 08/06/2019 eCW3 ([place] 12:00:00 AM [facility]) Prednisone 50 MG Oral 08/06/2019 eCW3 ( [place] Tablet 12:00:00 AM [facility] Health Care) Wheelchair - 08/06/2019 eCW3 ([place] 12:00:00 AM [facility]) Prednisone 50 MG Oral 08/06/2019 eCW3 ( [place] Tablet 12:00:00 AM [facility] Health Care) Prednisone 50 MG Oral 08/06/2019 eCW3 ( [place] Tablet 12:00:00 AM [facility] Health Care) Wheelchair - 08/06/2019 eCW3 ([place] 12:00:00 AM [facility]) Prednisone 50 MG Oral 08/06/2019 eCW3 ( [place] Tablet 12:00:00 AM [facility]) Wheelchair - 08/06/2019 eCW3 ([place] 12:00:00 AM [facility]) Wheelchair - 08/06/2019 eCW3 ([place] 12:00:00 AM [facility]) benzonatate 100 MG Oral 05/25/2019 eCW3 ([place] Capsule 12:00:00 AM [facility]) Clotrimazole 10 MG/ML 05/25/2019 eCW3 ( [place] Topical Cream 12:00:00 AM [facility] ) Basaglar KwikPen 100 02/21/2019 eCW3 ([place] UNIT/ML 12:00:00 AM [facility]) Acetaminophen 500 MG Oral 10/06/2018 eC W3 ([place] Tablet 12:00:00 AM [facility]) Diazepam 5 MG Oral Tablet 01/19/2018 eC W2 ([place] 12:00:00 AM [facility]) Ibuprofen 600 MG Oral 12/30/2017 eCW3 ( [place] Tablet 12:00:00 AM [facility]) Ibuprofen 600 MG Oral 12/30/2017 eCW3 ( [place] Tablet 12:00:00 AM [facility]) Ibuprofen 600 MG Oral 12/30/2017 eCW3 ( [place] Tablet 12:00:00 AM [facility]) Metformin hydrochloride 500 12/16/2017 eCW3 ([place] MG Oral Tablet 12:00:00 AM [facility] e) Metformin hydrochloride 500 12/16/2017 eCW3 ([place] MG Oral Tablet 12:00:00 AM [facility] e) ALBUTEROL SULFATE 0.083% 07/08/2016 eCW 3 ([place] 2.5 mg/3 ml 12:00:00 AM [facility]) Glucose Test Strips 07/08/2016 eCW3 ([place] Compatiable with Patients 12:00:00 AM [facility]) Machine Glucose Test Strips 07/08/2016 eCW3 ([place] Compatiable with Patients 12:00:00 AM [facility]) Machine Glucose Test Strips 07/08/2016 eCW3 ([place] Compatiable with Patients 12:00:00 AM [facility]) Machine ALBUTEROL SULFATE 0.083% 07/08/2016 eCW 3 ([place] 2.5 mg/3 ml 12:00:00 AM [facility]) 3 ML Insulin, Aspart, Human 09/11/2014 eCW3 ([place] 100 UNT/ML Pen Injector 12:00:00 AM [facility]) [NovoLog] Digoxin 0.25 MG Oral Tablet 09/11/2014 eCW3 ([place] 12:00:00 AM [facility]) Digoxin 0.25 MG Oral Tablet 09/11/2014 eCW3 ([place] 12:00:00 AM [facility]) Furosemide 40 MG Oral 08/07/2014 eCW3 ( [place] Tablet 12:00:00 AM [facility]) Furosemide 40 MG Oral 08/07/2014 eCW3 ( [place] Tablet 12:00:00 AM [facility]) Furosemide 40 MG Oral 08/07/2014 eCW3 ( [place] Tablet 12:00:00 AM [facility]) Furosemide 40 MG Oral 08/07/2014 eCW3 ( [place] Tablet 12:00:00 AM [facility]) Furosemide 40 MG Oral 08/07/2014 eCW3 ( [place] Tablet 12:00:00 AM [facility]) Furosemide 40 MG Oral 08/07/2014 eCW3 ( [place] Tablet 12:00:00 AM [facility]) Simvastatin 20 MG Oral 10/18/2013 eCW3 ([place] Tablet 12:00:00 AM [facility]) 3 ML liraglutide 6 MG/ML eCW 3 ([employer] Pen Injector [Victoza] [facility] Care) 3 ML liraglutide 6 MG/ML eCW 3 ([employer] Pen Injector [Victoza] [facility]) 3 ML liraglutide 6 MG/ML eCW 3 ([employer] Pen Injector [Victoza] [facility]) 3 ML liraglutide 6 MG/ML eCW 3 ([employer] Pen Injector [Victo] [facility]) gabapentin 300 MG Oral eCW3 ([employer] Capsule [facility]) Losartan Potassium 50 MG eCW 3 ([employer] Oral Tablet [facility] Care) carvedilol 3.125 MG Oral eCW 3 ([employer] Tablet [facility] Care) 60 ACTUAT Fluticasone eCW3 ( [employer] propionate 0.5 MG/ACTUAT / H [facility] Care) salmeterol 0.05 MG/ACTUAT Dry Powder Inhaler [Advair] Spironolactone 25 MG Oral eC W3 ([employer] [facility] Care) rivaroxaban 20 MG Oral eCW3 ([employer] Tablet [Xarelto] [facility] Care ) clopidogrel 75 MG Oral eCW3 ([employer] [facility] Care) montelukast 10 MG Oral eCW3 ([employer] Tablet [Singulair] Health [facility]) pantoprazole 20 MG Delayed e CW3 ([employer] Release Oral Tablet Health C are) Omeprazole 20 MG Delayed eCW 3 ([employer] Release Oral Capsule [facility] Care)
--- NOTE | 2020-01-08 03:39 | PN ---
Teaching Attending Note Name of Resident: Aamrjit Gamboa ATTENDING PHYSICIAN STATEMENT I saw and evaluated the patient. I reviewed the resident's note and discussed the case with the resident. I agree with the resident's findings and plan as documented. SUBJECTIVE: 54yoF with history of atrial fibrillation on Xarelto, HFrEF 30-35%, NSTEMI, T2DM on insulin, HTN, HLD, asthma, chronic LLE wound, and h/o cocaine abuse who presents with fatigue and melena x3 days. Patient reports multiple episodes daily of dark tarry stools for the past 3 days without hematochezia, vomiting, chest pain, palpitations, SOB, or syncope. Denies prior history of GI bleed. She has continued to take her anticoagulation. Denies NSAID or alcohol use. Notes increasing anxiety recently. Patient was mildly tachycardic in the ED, BP 110/58 on arrival. Labs notable for Hgb 4.9, INR 2, BUN 35, creatinine 1. EKG showed atrial fibrillation, rate 96. CXR unremarkable. Patient consented to blood transfusion. Received 40mg IV pantoprazole and is admitted for further work up and management. OBJECTIVE: Vital Signs - 24 hr 01/07/20 01/08/20 01/08/20 21:12 01:15 03:22 Temperature 97.2 F L 98.0 F Pulse Rate 94 H Pulse Rate [ 98 H 94 H Left] Respiratory 20 16 18 Rate Blood Pressure 110/58 L Blood Pressure 96/62 105/73 [Left Arm] O2 Sat by Pulse 100 100 100 Oximetry (%) EXAM Gen: Anxious but in no acute distress, awake and alert HEENT: Tacky mucous membranes CV: Irregular rate/rhythm; mildly tachycardic Resp: CTAB, no wheezing; unlabored Abd: Mild tenderness to deep palpation, no rebound/guarding. +BS throughout Ext: 1+ edema BLE, tender to palpation, no open wounds Neuro: CN II-XII grossly intact Psych: AOx3 Laboratory Results - last 24 hr 01/07/20 01/07/20 01/07/20 23:40 23:40 23:40 WBC 6.8 RBC 1.92 L Hgb 4.9 L* Hct 15.5 L D MCV 80.6 MCH 25.5 L MCHC 31.6 L RDW 21.1 H Plt Count 222 D MPV 8.3 Absolute Neuts (auto) 4.4 Neutrophils % 64.3 Lymphocytes % 21.6 D Monocytes % 11.0 H Eosinophils % 0.9 Basophils % 2.2 H Nucleated RBC % 0 PT with INR 24.50 H INR 2.06 H Sodium 136 Potassium 4.9 Chloride 102 Carbon Dioxide 25 Anion Gap 9 BUN 35.2 H Creatinine 1.0 Est GFR (CKD-EPI)AfAm 73.97 Est GFR (CKD-EPI)NonAf 63.82 Random Glucose 304 H Calcium 8.5 Total Bilirubin 0.7 AST 18 ALT 31 Alkaline Phosphatase 151 H Creatine Kinase 78 Troponin I 0.02 B-Natriuretic Peptide 2199.2 H Total Protein 5.8 L Albumin 2.5 L Blood Type Antibody Screen Crossmatch 01/07/20 23:40 WBC RBC Hgb Hct MCV MCH MCHC RDW Plt Count MPV Absolute Neuts (auto) Neutrophils % Lymphocytes % Monocytes % Eosinophils % Basophils % Nucleated RBC % PT with INR INR Sodium Potassium Chloride Carbon Dioxide Anion Gap BUN Creatinine Est GFR (CKD-EPI)AfAm Est GFR (CKD-EPI)NonAf Random Glucose Calcium Total Bilirubin AST ALT Alkaline Phosphatase Creatine Kinase Troponin I B-Natriuretic Peptide Total Protein Albumin Blood Type AB POSITIVE Antibody Screen Negative Crossmatch See Detail ASSESSMENT AND PLAN: 54yoF with history of atrial fibrillation on Xarelto, HFrEF 30-35%, NSTEMI, T2DM on insulin, HTN, HLD, asthma, chronic LLE wound, and h/o cocaine abuse who presents with fatigue and melena x3 days. Acute blood loss anemia secondary to upper GI bleed Hgb 4.9 on admission in setting of melena x3 days Baseline hemoglobin appears to be around 10 Had 1 melanotic stool while in the ED - 2U PRBC ordered; consider Lasix after first unit - rpt H/H after transfusion - GI consult - NPO - Pantoprazole 40mg IV q12h - Hold Xarelto Chronic systolic HFrEF 30-35% Not in acute exacerbation Will hold home diuretics for now in setting of acute bleed as above - Hold Lasix/spironolactone; resume as needed - continue Entresto Atrial fibrillation Currently rate controlled - check digoxin level - hold Xarelto as above - continue metoprolol with holding parameters Anxiety - Ativan PRN T2DM: half home Lantus while NPO; ISS asthma: continue controller inhaler, albuterol PRN DVT ppx: SCD
[2020-01-08] MEDS ORDERED: LORazepam 2 MG/ML SDV VIAL IVPUSH ONE ×2 (04:16→17:36)
[2020-01-08 05:51] LABS: ANISOCYTOSIS 2+; MACROCYTOSIS 2+
[2020-01-08 05:52] LABS: PLATELET ESTIMATE ADEQUATE
--- NOTE | 2020-01-08 08:17 | PN ---
Teaching Attending Note Name of Resident: Mercedes Hood ATTENDING PHYSICIAN STATEMENT I saw and evaluated the patient. I reviewed the resident's note and discussed the case with the resident. I agree with the resident's findings and plan as documented. SUBJECTIVE: Patient is comfortable denies any shortness of breath. Confused slightly. As per nurse is having dark black stool. OBJECTIVE: Vital Signs Temperature 98.2 F 01/08/20 06:16 Pulse Rate 112 H 01/08/20 06:16 Respiratory Rate 18 01/08/20 06:16 Blood Pressure 126/89 01/08/20 06:16 O2 Sat by Pulse Oximetry (%) 98 01/08/20 06:16 PE: per resident's note CBCD WBC 6.8 K/mm3 (4.0-10.0) 01/07/20 23:40 RBC 1.92 M/mm3 (3.60-5.2) L 01/07/20 23:40 Hgb 4.9 GM/dL (10.7-15.3) L* 01/07/20 23:40 Hct 15.5 % (32.4-45.2) L D 01/07/20 23:40 MCV 80.6 fl (80-96) 01/07/20 23:40 MCHC 31.6 g/dl (32.0-36.0) L 01/07/20 23:40 RDW 21.1 % (11.6-15.6) H 01/07/20 23:40 Plt Count 222 K/MM3 (134-434) D 01/07/20 23:40 MPV 8.3 fl (7.5-11.1) 01/07/20 23:40 CMP Sodium 136 mmol/L (136-145) 01/07/20 23:40 Potassium 4.9 mmol/L (3.5-5.1) 01/07/20 23:40 Chloride 102 mmol/L (98-107) 01/07/20 23:40 Carbon Dioxide 25 mmol/L (21-32) 01/07/20 23:40 Anion Gap 9 MMOL/L (8-16) 01/07/20 23:40 BUN 35.2 mg/dL (7-18) H 01/07/20 23:40 Creatinine 1.0 mg/dL (0.55-1.3) 01/07/20 23:40 Random Glucose 304 mg/dL (74-106) H 01/07/20 23:40 Calcium 8.5 mg/dL (8.5-10.1) 01/07/20 23:40 Total Bilirubin 0.7 mg/dL (0.2-1) 01/07/20 23:40 AST 18 U/L (15-37) 01/07/20 23:40 ALT 31 U/L (13-61) 01/07/20 23:40 Alkaline Phosphatase 151 U/L (45-117) H 01/07/20 23:40 Total Protein 5.8 g/dl (6.4-8.2) L 01/07/20 23:40 Albumin 2.5 g/dl (3.4-5.0) L 01/07/20 23:40 CARDIAC ENZYMES Creatine Kinase 78 U/L (26-192) 01/07/20 23:40 Troponin I 0.02 ng/ml (0.00-0.05) 01/07/20 23:40 Current Medications Generic Name Dose Route Start Last Admin Trade Name Freq PRN Reason Stop Dose Admin Furosemide 20 mg 01/08/20 08:11 Lasix Injection - IVPUSH ONCE PRN post transfusion Metoprolol Succinate 25 mg 01/08/20 10:00 Toprol Xl - PO BID [facility] Sacubitril/Valsartan 1 tab 01/08/20 10:00 Entresto 24 Mg-26 Mg Tablet PO BID [facility] Home Medications Medication Instructions Recorded Loratadine 10 mg PO DAILY PRN 06/30/19 Cholecalciferol (Vitamin D3) 50,000 unit PO WEEKLY 09/16/19 [Vitamin D3 -] Fluticasone Propion/Salmeterol 1 inhaler IN BID 09/16/19 [Wixela 500-50 Inhub] Insulin Glargine,Hum.rec.anlog 38 unit SQ DAILY 09/16/19 [Basaglar Kwikpen U-100] Collagenase Clostridium Hist. 1 applic TP DAILY #1 tube 10/17/19 [Santyl -] Docusate Sodium [Colace -] 100 mg PO TID #90 capsule 10/17/19 Montelukast Sodium [Singulair] 10 mg PO HS #30 tablet 10/17/19 Pantoprazole Sodium [Protonix -] 40 mg PO DAILY #30 tab 10/17/19 Liraglutide [Victoza -] 1.2 mg SQ DAILY 11/08/19 Acetaminophen [Tylenol .Regular 650 mg PO Q6H PRN tablet 12/06/19 Strength -] Albuterol Sulfate Inhaler - 2 puff IH Q4H PRN inhaler 12/06/19 [Ventolin HFA Inhaler -] Digoxin [Lanoxin -] 0.125 mg PO DAILY #30 tablet 12/06/19 Doxycycline Hyclate 100 mg PO BID #10 tablet MDD 200 mg 12/06/19 Furosemide [Lasix -] 60 mg PO BID@0600,1400 #14 tablet 12/06/19 Metoprolol Succinate [Toprol Xl] 25 mg PO BID #14 tab.sr 12/06/19 Rivaroxaban [Xarelto -] 20 mg PO DAILY #30 tablet 12/06/19 Sacubitril/Valsartan [Entresto 24 1 tab PO BID #60 tablet 12/06/19 mg-26 mg Tablet] Spironolactone [Aldactone -] 25 mg PO BID #60 tablet 12/06/19 levoFLOXacin [Levaquin] 500 mg PO DAILY #5 tablet MDD 500mg 12/06/19 CXr: Cardiomegaly EKG: ASSESSMENT AND PLAN: This patient is a 54yof with PMHx of HFrEF, AFib (on Xarelto), T2DM, hypertension, hyperlipidemia, asthma, chronic LLE wound and cocaine use disorder, NSTEMI presented to the ED. for have tarry stool ,rectal bleeding x 3days and was found to have Hgb of 4.2. #Acute Blood Lose due to UGIB On Protinix IV BID, NPO, hold Xarelto, PRBC transfusion with lasix IV post transfusion , GI consult Dr Khan, discussed with. will repeat hemoglobin in 4 hours post transfusion. if still low will transfuse. Also will transfer the patient since requiring higher care due to having EJF of 21% with acute GIB and high risk for EGD/Colonoscopy. #Afib with rate controlled: dc xarelto due to acute GI loss, continue digoxin , Dig. level is WNL 0.8 #chronic systolic CHF with CM on the CXR, BNP of 2k, lasix in bt transfusion . On Enteresto will continue #T2DM: continue 1/2 of home Lantus while NPO; ISS with coverage #asthma: continue albuterol PRN #HTN: continue home meds #Hx of Polysubstance abuse DVT Px: SCDS discussed with career based intervention coordinator dr Waldo irving with the transfer to tertiary care, discussed with GI. will consult HEM/ONC FOR further recommendation. accepted to [facility] ICU.
[2020-01-08] MEDS ORDERED: PANTOPRAZOLE SODIUM 40 MG VIAL IVPUSH ONE (08:47)
[2020-01-08] MEDS ORDERED: PANTOPRAZOLE SODIUM 40 MG/100 ML BAG IVPB ONE (09:24)
--- NOTE | 2020-01-08 09:39 | EKG ---
Test Reason : Blood Pressure : / mmHG Vent. Rate : 096 BPM Atrial Rate : 097 BPM P-R Int : 000 ms QRS Dur : 090 ms QT Int : 352 ms P-R-T Axes : 000 053 229 degrees QTc Int : 444 ms ATRIAL FIBRILLATION WITH PREMATURE VENTRICULAR OR ABERRANTLY CONDUCTED COMPLEXES NONSPECIFIC ST AND T WAVE ABNORMALITY ABNORMAL ECG WHEN COMPARED WITH ECG OF 04-DEC-2019 13:20, CRITERIA FOR LATERAL INFARCT ARE NO LONGER PRESENT Confirmed by Ruel Bertrand ([id number]) on 01/08/2020 9:38:39 AM Referred By: Confirmed By:Ruel Bertrand
[2020-01-08] MEDS ORDERED: metoPROLOL SUCCINATE 25 MG TAB.SR.24H (FP) PO SCH (10:00)
[2020-01-08] MEDS ORDERED: PANTOPRAZOLE SODIUM 80 MG in SODIUM CHLORIDE 100 ML IVPB SCH (10:00)
[2020-01-08] MEDS ORDERED: SACUBITRIL/VALSARTAN 24 MG-26 MG TABLET PO SCH (10:00)
--- NOTE | 2020-01-08 10:42 | CON.GI ---
Consult Consult Specialty:: GI Referred by:: Hospitalist Service Reason for Consultation:: Anemia, melena - History of Present Illness Chief Complaint: Patient did not want to talk. was not cooperative. Per chart dark bowel movements and clots for three days History of Present Illness: 54F admitted for evaluation of anemia and melena x three days. Currently agitated and not cooperative with interview. Noted hgb 4.9. Given 2 U PRBC. Abuses cocaine and urine tox has been consistently positive for cocaine. No urine tox this admission. Is maintained onxarelto for A. Fib. Uncertain when her last dose was taken. INR was 2.0 on admission. Unclear what her NSAID use is at home. Seen by cardiology during an admission last month. Note alludes to her having an EF of 15-20% and that she was supposed to have an AICD placed. She apparently never followed up for this and her cocaine was deemed a relative contraindication. Unclear if she has ever had an upper endoscopy or colonoscopy. - History Source History Provided By: Medical Record Limitations to Obtaining History: Uncooperative - Past Medical History Cardio/Vascular: Yes: AFIB, CAD (NONOBSTRUCTIVE), CHF (EF 15-20%, with INC RVP,), HTN, Hyperlipdemia, Pulmonary Hypertension Pulmonary: Yes: Asthma, COPD, Sleep Apnea (LIKLEY BUT NEVER TESTED) ...LMP: 01/07/16 ...: No Psych: Yes: Anxiety Musculoskeletal: Yes: Chronic low back pain, Other (Other (right knee with healed scar, mild bilateral edema, stiffness, moves with difficulty)) Endocrine: Yes: Diabetes Mellitus - Past Surgical History Past Surgical History: Yes: Cholecystectomy, (3), Joint Replacement (LEFT KNEE) - Alcohol/Substance Use Hx Alcohol Use: No History of Substance Use: reports: Cocaine - Smoking History Smoking history: Current some day smoker Have you smoked in the past 12 months: Yes Aproximately how many cigarettes per day: 1 If you are a former smoker, when did you quit?: 2019 - Social History ADL: Independent Place of : [facility] History of Recent Travel: No Home Medications - Allergies Allergies/Adverse Reactions: Allergies Allergy/AdvReac Type Severity Reaction Status Date / Time amoxicillin trihydrate Allergy Intermediate Swelling Verified 12/04/19 11:47 [From Augmentin] potassium clavulanate Allergy Intermediate Swelling Verified 12/04/19 11:47 [From Augmentin] amoxicillin Allergy Verified 12/04/19 11:47 - Home Medications Home Medications: Ambulatory Orders Loratadine 10 mg PO DAILY PRN 06/30/19 Cholecalciferol (Vitamin D3) [Vitamin D3 -] 50,000 unit PO WEEKLY 09/16/19 Fluticasone Propion/Salmeterol [Wixela 500-50 Inhub] 1 inhaler IN BID 09/16/19 Insulin Glargine,Hum.rec.anlog [Basaglar Kwikpen U-100] 38 unit SQ DAILY 09/16/19 Collagenase Clostridium Hist. [Santyl -] 1 applic TP DAILY #1 tube 10/17/19 Docusate Sodium [Colace -] 100 mg PO TID #90 capsule 10/17/19 Montelukast Sodium [Singulair] 10 mg PO HS #30 tablet 10/17/19 Pantoprazole Sodium [Protonix -] 40 mg PO DAILY #30 tab 10/17/19 Liraglutide [Victoza -] 1.2 mg SQ DAILY 11/08/19 Acetaminophen [Tylenol .Regular Strength -] 650 mg PO Q6H PRN tablet 12/06/19 Albuterol Sulfate Inhaler - [Ventolin HFA Inhaler -] 2 puff IH Q4H PRN inhaler 12/06/19 Digoxin [Lanoxin -] 0.125 mg PO DAILY #30 tablet 12/06/19 Furosemide [Lasix -] 60 mg PO BID@0600,1400 #14 tablet 12/06/19 Metoprolol Succinate [Toprol Xl] 25 mg PO BID #14 tab.sr 12/06/19 Rivaroxaban [Xarelto -] 20 mg PO DAILY #30 tablet 12/06/19 Sacubitril/Valsartan [Entresto 24 mg-26 mg Tablet] 1 tab PO BID #60 tablet 12/06/19 Spironolactone [Aldactone -] 25 mg PO BID #60 tablet 12/06/19 Insulin Aspart [Novolog] 18 unit SQ 1200,199901/08/20 Family Medical History Family Hx Cancer: Mother (unspecified cancer) Family Hx Cardiac Disorders: Sister (murmurs) Family Hx Congestive Heart Failure: Mother (diabetes) Family Hx Diabetes: Mother Review of Systems Unable to obtain ROS, reason: Patient uncooperative Physical Exam-GI Vital Signs: Vital Signs Temperature 97.8 F 01/08/20 09:50 Pulse Rate 93 H 01/08/20 09:50 Respiratory Rate 16 01/08/20 09:50 Blood Pressure 123/60 01/08/20 09:50 O2 Sat by Pulse Oximetry (%) 95 01/08/20 09:50 Eyes: No: Sclera Icterus Cardiovascular: Yes: Tachycardia, Other (heart sounds obscured by patient yelling and groaning) Respiratory: Yes: Diminished (at bases with poor insp effort) Gastrointestinal Inspection: No: Distention ...Auscultate: Yes: Normoactive Bowel Sounds ...Palpate: No: Tenderness (No grimacing upon palpation) ...Rectal Exam: Yes: Other (No external lesions, dark brown/black stool in rectal vault) Edema: Yes Neurological: Yes: Other (Uncooperative) Labs: CBC, BMP 01/07/20 23:40 01/07/20 23:40 INR, PTT INR 2.06 (0.83-1.09) H 01/07/20 23:40 Problem List - Problems (1) GI bleed Assessment/Plan: suspected upper GI bleed. Advise: NPO except meds Keep Hgb around 8 given h/o CAD. Will need close monitoring of cardiopulmonary status while receiving volume. Ordered urine tox Ordered another 40mg bolus of protonix and started infusion @ 8mg/hr Correct coagulopathy and consider hematology evaluation as the patient is on on xarelto Once hemodynamically stable and hgb improved, ideally transfer to tertiary care center for further evaluation should be considered given her tenuous cardiac status. This was discussed with Dr. Shaffer. Code(s): K92.2 - GASTROINTESTINAL HEMORRHAGE, UNSPECIFIED
[2020-01-08 11:26] VITALS: BMI 35.0
--- NOTE | 2020-01-08 11:57 | CON.CARD ---
Cardiology Consult (text) - Consultation Consultation Note: Chief Complaint: GI bleed History of Present Illness: 54F h/o HTN, HLD, chronic systolic HF, DM p/w GI bleed. patient is asleep and not rousable, unable to give history, obtained from chart. Several recent admits for chf, most recently in November. Sees Dr. Oconnell for cardio. Complained of fatigue, melena for 3 days prior to admission. no chest pain, palps, dyspnea, edema were reported. - Past Medical History Cardio/Vascular: Yes: HTN Pulmonary: Yes: Asthma, COPD Endocrine: Yes: Diabetes Mellitus - Alcohol/Substance Use Hx Alcohol Use: No - Smoking History Smoking history: Current every day smoker Have you smoked in the past 12 months: Yes Aproximately how many cigarettes per day: 10 Home Medications - Allergies Allergies/Adverse Reactions: Allergies Allergy/AdvReac Type Severity Reaction Status Date / Time amoxicillin trihydrate Allergy Intermediate Swelling Verified 12/04/19 11:47 [From Augmentin] potassium clavulanate Allergy Intermediate Swelling Verified 12/04/19 11:47 [From Augmentin] amoxicillin Allergy Verified 12/04/19 11:47 Family Disease History - Family Disease History Family Disease History: Diabetes: Sister (seven - ), Heart Disease: Sister, CA: Mother (), Respiratory: Sister, Other: Father (, etoh), Mother, Brother (four - one mental health problem), Sister, Son (five - asthma ), Daughter (one - healthy) Review of Systems - Review of Systems per hpi; all others nl Vital Signs Period Temp Pulse Resp BP Sys/Khanna Pulse Ox Last 24 Hr 96.7 F-99.7 F 65-118 16-22 95-126/56-89 95-100 Constitutional: Yes: No Distress, Calm Eyes: Yes: Conjunctiva Clear, EOM Intact HENT: Yes: Atraumatic, Normocephalic Neck: Yes: Supple, Trachea Midline Respiratory: CTAB Gastrointestinal: Yes: Normal Bowel Sounds, Soft Cardiovascular: Yes: Tachycardia JVD: No Carotid Bruit: No PMI: Non-Displaced Heart Sounds: Yes: S1, S2 Musculoskeletal: No: Back Pain Extremities: Yes: Cool Edema: no Integumentary: No: Jaundice Neurological: Yes: Alert, Oriented Psychiatric: No: Agitated EKG: afib, rate 96 bpm, no ischemic changes cxr: no acute process echo 10/2018 dilated LV, severe global hypokinesis, EF 15-20%, RV mildly reduced function, LA mod dilated, mild MAC, mild MR, mild TR, RVSP >40-50 mmHg echo 09/2019: lve, lvef 30-35, mild dec rv fcn, mild mr a/p: 54F h/o HTN, HLD, afib, chronic systolic HF, DM p/w GI bleed GI bleed - Hgb 4.9 on admission - NPO, on protonix gtt - transfuse PRBC per primary - IV lasix PRN following transfusion - evaluated by GI - when hemodynamically stable and H/H improved would pursue workup at tertiary center given underlying comorbidities - holding xarelto chronic systolic chf, NICM: -Likely NICM due to chronic HTN, cocaine use -pt had not followed up for ICD in the past and her cocaine use is a relative contraindication -recent echo 09/2019 with stable chronic findings, lvef slightly improved -appears euvolemic to dry -monitor volume status while receiving PRBCs, IVF. -cont Entresto, metoprolol - holding aldactone, lasix for now AFib: - cont metoprolol, digoxin - holding xarelto CAD, NSTEMI: -pt presented with NSTEMI in 2018 but subsequent cath showed single vessel disease, medically managed with cardiomyopathy out of proportion to degree of CAD -no signs ACS here -cont bb. statin stopped previously due to elevated lfts. - holding xarelto lower ext pain -abx per primary - vascular consulted DM - manage per primary
[2020-01-08] MEDS ORDERED: FUROSEMIDE 40 MG/4 ML INJECTABLE VIAL IVPUSH PRN (12:00)
[2020-01-08] MEDS ORDERED: DIGOXIN 0.125 MG TABLET (FP) PO SCH (12:00)
[2020-01-08 13:25] LABS: EOS % 0.1 % (0-4.5); HEMATOCRIT 18.7 % (32.4-45.2); LYMPH % 5.8 % (8-40); MCH 26.2 pg (25.7-33.7); MCHC 31.7 g/dl (32.0-36.0); MEAN CELL VOLUME 82.6 fl (80-96); MEAN PLT VOLUME 8.6 fl (7.5-11.1); MONO % 5.9 % (3.8-10.2); NEUT % 87.2 % (42.8-82.8); PLATELET COUNT 162 K/MM3 (134-434); RBC 2.26 M/mm3 (3.60-5.2); RDW 18.3 % (11.6-15.6)
[2020-01-08 13:35] LABS: HEMOGLOBIN 5.9 GM/dL (10.7-15.3)
[2020-01-08] MEDS ORDERED: FUROSEMIDE 40 MG/4 ML INJECTABLE VIAL IVPUSH ONE ×2 (13:56→13:57)
--- NOTE | 2020-01-08 15:43 | CONSULT ---
Consultation: REQUESTING PROVIDER: Dr. Mercedes Hood CONSULT REQUEST: We have been asked to medically evaluate this patient for GI bleed with significant anemia. HISTORY OF PRESENT ILLNESS: 54F w/ pmhx HFrEF, AFib (on Xarelto), IDDM, hypertension, hyperlipidemia, asthma, chronic LLE wound and cocaine use disorder, NSTEMI(2019?) presented to [facility] for critically low Hgb of 4.2 and rectal bleeding x 3days. Pt presented with complaints of clots and black tarry stools. She had 3 days of dark black bowel movements for which she had taken x2 peptobismol tablets and tums. Since her admission, she has received 2U pRBCs after which her Hgb increased to only 5.9. Currently, she is receiving her 4th unit of pRBC. She was evaluated by GI with recommendation to keep patient NPO and advised transfer to tertiary care center for further evaluation given her tenuous cardiac status. ICU team was consulted given refractory anemia despite blood transfusions and for closer hemodynamic monitoring. As per discussion with primary team, pt is currently accepted to [facility]; awaiting bed. REVIEW OF SYSTEMS: Unable to obtain as patient is uncooperative. PHYSICAL EXAMINATION Vital Signs - 24 hr 01/07/20 01/08/20 01/08/20 21:12 01:15 03:22 Temperature 97.2 F L 98.0 F Pulse Rate 94 H Pulse Rate [ 98 H 94 H Left] Respiratory 20 16 18 Rate Blood Pressure 110/58 L Blood Pressure 96/62 105/73 [Left Arm] O2 Sat by Pulse 100 100 100 Oximetry (%) 01/08/20 01/08/20 01/08/20 06:16 08:19 09:11 Temperature 98.2 F 98.2 F 96.7 F L Pulse Rate Pulse Rate [ 112 H 98 H 65 Left] Respiratory 18 22 H 16 Rate Blood Pressure Blood Pressure 126/89 102/76 109/76 [Left Arm] O2 Sat by Pulse 98 98 98 Oximetry (%) 01/08/20 01/08/20 01/08/20 09:25 09:50 10:00 Temperature 97.8 F Pulse Rate Pulse Rate [ 68 93 H Left] Respiratory 16 16 Rate Blood Pressure Blood Pressure 95/74 123/60 [Left Arm] O2 Sat by Pulse 98 95 96 Oximetry (%) 01/08/20 01/08/20 01/08/20 11:01 11:06 12:05 Temperature 99.7 F H 98.3 F Pulse Rate 112 H 118 H 119 H Pulse Rate [ Left] Respiratory 18 20 Rate Blood Pressure 111/56 L Blood Pressure [Left Arm] O2 Sat by Pulse 100 Oximetry (%) 01/08/20 01/08/20 01/08/20 13:11 13:35 14:51 Temperature 97.5 F L Pulse Rate 112 H 112 H 89 Pulse Rate [ Left] Respiratory Rate Blood Pressure Blood Pressure [Left Arm] O2 Sat by Pulse Oximetry (%) GENERAL: Awake and alert. Easily agitated. Uncooperative during interview. HEENT: NT, NC. No ptosis. MMM LUNGS: Breath sounds equal, clear to auscultation bilaterally, no wheezes, no crackles, no accessory muscle use. HEART: Regular rate and rhythm, S1, S2 without murmur, rub or gallop. ABDOMEN: Soft, nontender, nondistended, normoactive bowel sounds, no guarding, no rebound EXTREMITIES: 2+ pulses, warm, well-perfused, minimal non-pitting edema. L posterior calf wound is non-erythematous, non-TTP, no fluctuance; no discharge; sloughing. NEUROLOGICAL: Normal speech, gait not observed. PSYCH: Normal mood, normal affect. SKIN: Warm, dry, normal turgor, no rashes or lesions noted Laboratory Results - last 24 hr 01/07/20 01/07/20 01/07/20 23:40 23:40 23:40 WBC 6.8 RBC 1.92 L Hgb 4.9 L* Hct 15.5 L D MCV 80.6 MCH 25.5 L MCHC 31.6 L RDW 21.1 H Plt Count 222 D MPV 8.3 Absolute Neuts (auto) 4.4 Neutrophils % 64.3 Lymphocytes % 21.6 D Monocytes % 11.0 H Eosinophils % 0.9 Basophils % 2.2 H Nucleated RBC % 0 Hypochromia 2+ Platelet Estimate Adequate Polychromasia 1+ Poikilocytosis 1+ Anisocytosis 2+ Macrocytosis 2+ PT with INR 24.50 H INR 2.06 H Sodium 136 Potassium 4.9 Chloride 102 Carbon Dioxide 25 Anion Gap 9 BUN 35.2 H Creatinine 1.0 Est GFR (CKD-EPI)AfAm 73.97 Est GFR (CKD-EPI)NonAf 63.82 POC Glucometer Random Glucose 304 H Calcium 8.5 Total Bilirubin 0.7 AST 18 ALT 31 Alkaline Phosphatase 151 H Creatine Kinase 78 Troponin I 0.02 B-Natriuretic Peptide 2199.2 H Total Protein 5.8 L Albumin 2.5 L Digoxin Blood Type Antibody Screen Crossmatch 01/07/20 01/08/20 01/08/20 23:40 05:45 10:01 WBC RBC Hgb Hct MCV MCH MCHC RDW Plt Count MPV Absolute Neuts (auto) Neutrophils % Lymphocytes % Monocytes % Eosinophils % Basophils % Nucleated RBC % Hypochromia Platelet Estimate Polychromasia Poikilocytosis Anisocytosis Macrocytosis PT with INR INR Sodium Potassium Chloride Carbon Dioxide Anion Gap BUN Creatinine Est GFR (CKD-EPI)AfAm Est GFR (CKD-EPI)NonAf POC Glucometer 290 Random Glucose Calcium Total Bilirubin AST ALT Alkaline Phosphatase Creatine Kinase Troponin I B-Natriuretic Peptide Total Protein Albumin Digoxin 0.82 Blood Type AB POSITIVE Antibody Screen Negative Crossmatch See Detail 01/08/20 13:02 WBC 11.0 H RBC 2.26 L Hgb 5.9 L* Hct 18.7 L D MCV 82.6 MCH 26.2 MCHC 31.7 L RDW 18.3 H Plt Count 162 D MPV 8.6 Absolute Neuts (auto) 9.6 H Neutrophils % 87.2 H D Lymphocytes % 5.8 L D Monocytes % 5.9 Eosinophils % 0.1 D Basophils % 1.0 Nucleated RBC % 0 Hypochromia Platelet Estimate Polychromasia Poikilocytosis Anisocytosis Macrocytosis PT with INR INR Sodium Potassium Chloride Carbon Dioxide Anion Gap BUN Creatinine Est GFR (CKD-EPI)AfAm Est GFR (CKD-EPI)NonAf POC Glucometer Random Glucose Calcium Total Bilirubin AST ALT Alkaline Phosphatase Creatine Kinase Troponin I B-Natriuretic Peptide Total Protein Albumin Digoxin Blood Type Antibody Screen Crossmatch Active Medications Generic Name Dose Route Start Last Admin Trade Name Freq PRN Reason Stop Dose Admin Digoxin 0.125 mg 01/08/20 12:00 01/08/20 13:11 Lanoxin - PO 0.125 mg DAILY SOREN Administration Pantoprazole Sodium 80 mg/ 100 mls @ 10 mls/hr 01/08/20 10:00 01/08/20 10:07 Sodium Chloride IVPB 09/25/20 09:59 10 mls/hr Q10H SOREN Administration 8 MG/HR Metoprolol Succinate 25 mg 01/08/20 10:00 01/08/20 13:11 Toprol Xl - PO 25 mg BID SOREN Administration Sacubitril/Valsartan 1 tab 01/08/20 10:00 01/08/20 13:11 Entresto 24 Mg-26 Mg Tablet PO 1 tab BID SOREN Administration IMAGING: * CT head (01/08/20): Neg for acute IC pathology. Chronic L occipital cortical infarct. Small chronic R thalamic infarct. Small chronic R basal ganglia infarct. * CXR: Large heart; no acute process. Unchanged since prior study. ASSESSMENT/PLAN: 54F w/ pmhx HFrEF, AFib (on Xarelto), IDDM, hypertension, hyperlipidemia, asthma, chronic LLE wound and cocaine use disorder, NSTEMI(2019?) presented to [facility] for GI bleed with significant anemia. Neuro #Acute Metabolic Encephalopathy; agitated and uncooperative. -Constant supervision as patient is uncooperative and constantly getting out of bed; pulls at equipment -Ativan 1 mg Q4H PRN for agitation Cardio #Hx of chronic HFrEF #Afib #HTN/HLD #CAD #Hx of NSTEMI -Cardio following; will hold Aldactone and Lasix for now -Per EMR last echo 09/2019: lve, lvef 30-35, mild dec rv fcn, mild mr -Cont home med: Sacubitril-Valsartan 1 tab BID, Metoprolol Succinate 25 BID, Digoxin 0.125 mg QD Pulmonary #Asthma; stable. No acute issues. GI #GI Bleed; continues to have black tarry stools. -NPO, s/p 2U PRBCs; 1U pRBCs -Protonix drip -Hold home Xarelto -As per discussion with primary team, pt will be transferred to [facility] for further GI work up given tenuous cardiac status -GI following Heme #Acute Blood Loss Anemia #Elevated INR; INR 2.06 -Initial Hgb 4.9, repeat 5.9 (s/p 2U pRBC) -4th unit pRBC pending; will repeat CBC 1 hr after completion -trend CBC; maintain Hgb >8 -Heme consulted; As per discussion, will get repeat CBC with diff, PT/INR, PTT, fibrinogen, CMP. Pt unable to answer when she last took Xarelto, however since she was admitted to the hospital last night, she has likely been off of AC for at least 24 hours. Discussed with heme, recommend to give 2U FFP, Vitamin K 10 mg SQ, and 1U Pl if patient is on Plavix -GI following Prophylaxis DVT: Hold chemical prophylaxis given GI bleed GI: Protonix drip Dispo -transfer to ICU for close hemodynamic monitoring in setting of refractory anemia due to GI bleed despite multiple blood transfusions -Per primary team, patient has been accepted to [facility] further evaluation. Paperwork filled and signed. Awaiting bed. Spoke to daughterMarci who is aware of pending transfer; she verbalized understanding and in agreement with plan. -COVID pending POC: DaughterMacri - SonNicanor - Dispo: We will continue to follow the patient. Thank you for this consultative opportunity. Visit type - Emergency Visit Emergency Visit: Yes ED Registration Date: 01/08/20 Care time: The patient presented to the Emergency Department on the above date and was hospitalized for further evaluation of their emergent condition. - New Patient This patient is new to me today: Yes Date on this admission: 01/08/20 - Critical Care Critical Care patient: Yes Total Critical Care Time (in minutes): 36 Critical Care Statement: The care of this patient involved high complexity decision making to prevent further life threatening deterioration of the patient's condition and/or to evaluate & treat vital organ system(s) failure or risk of failure. ATTENDING PHYSICIAN STATEMENT I saw and evaluated the patient. I reviewed the resident's note and discussed the case with the resident. I agree with the resident's findings and plan as documented. SUBJECTIVE: OBJECTIVE: ASSESSMENT AND PLAN:
--- NOTE | 2020-01-08 16:05 | PN ---
Progress Note (short form) - Note Progress Note: Repeat CBC noted. Patient to get 2 more U PRBC. Melena reported Will need correction of coagulopathy. Heme evaluation as patient is on xarelto. If continued bleeding, may need reversal agent. IV Access Continued PPI Drip Upgrade to ICU care Transfer to tertiary care center when patient resucitated Discussed with primary team Problem List - Problems (1) GI bleed Code(s): K92.2 - GASTROINTESTINAL HEMORRHAGE, UNSPECIFIED
[2020-01-08] MEDS ORDERED: LORazepam 2 MG/ML SDV VIAL IVPUSH PRN (16:40)
[2020-01-08 17:25] VITALS: BP 98/64; PULSE 92; TEMP 98
[2020-01-08] MEDS ORDERED: ALBUTEROL SO4 HFA INHALER IH PRN (17:35)
--- NOTE | 2020-01-08 17:36 | PN ---
Physical Exam: SUBJECTIVE: Patient seen and examined. Pt was not cooperative with interview. When asked questions, pt replied "Stop." Pt declined to answer regarding NSAID use, history of EGD/colonoscopy and its findings. OBJECTIVE: Vital Signs Period Temp Pulse Resp BP Sys/Khanna Pulse Ox Last 24 Hr 96.7 F-99.7 F 65-119 16-22 95-126/56-89 95-100 GENERAL: Unkempt, sitting on chair. Somnolent. Responsive to sternal rub only. HEENT: NCAT, EOMI, dry mucus membranes CARDIAC: Tachycardic, regular rhythm, no murmurs. RESPIRATORY: CTA b/l, no wheezes ABDOMEN: Obese, soft, nontender to palpation EXTREMITIES: warm, 1+ pitting edema on b/l LE. SKIN: Dry, warm. Chronic venous stasis ulcer visualized b/l PSYCH: Pt uncooperative, poor eye contact. RECTAL: Pt declined rectal exam. CBC, BMP 01/08/20 13:02 01/07/20 23:40 Active Medications Chlorhexidine Gluconate (Hibiclens For Decolonization -) 1 applic TP HS [facility] Digoxin (Lanoxin -) 0.125 mg PO DAILY [facility] Last Admin: 01/08/20 13:11 Dose: 0.125 mg Documented by: Pantoprazole Sodium 80 mg/ (Sodium Chloride) 100 mls @ 10 mls/hr IVPB Q10H [facility] Stop: 01/11/20 09:59 Last Admin: 01/08/20 10:07 Dose: 10 mls/hr Documented by: Lorazepam (Ativan Injection -) 1 mg IVPUSH Q4H PRN PRN Reason: AGITATION Metoprolol Succinate (Toprol Xl -) 25 mg PO BID [facility] Last Admin: 01/08/20 13:11 Dose: 25 mg Documented by: Mupirocin (Bactroban Ointment (For Decolonization) -) 1 applic NS BID [facility] Stop: 01/13/20 21:59 Sacubitril/Valsartan (Entresto 24 Mg-26 Mg Tablet) 1 tab PO BID [facility] Last Admin: 01/08/20 13:11 Dose: 1 tab Documented by: ASSESSMENT/PLAN: 54 yo F with PMH of Afib on Xarelto, HFrEF 30-35%, NSTEMI, IDDM, HTN, HLD, asthma, chronic LLE wound, and h/o cocain use presented to ED w/ fatigue and melena for 3 days. Labs on admission showed Hb 4.9. Pt currently admitted for GI bleed. GI bleed -Given 2 U pRBC, repeat Hb 5.9. Given another 2U pRBC, f/u CBC and replete if Hb <8, due to CAD history. - 20 mg lasix between transfusions - GI and Heme consulted - Will keep NPO - c/w protonix drip - hold home AC CHF -Given lasix between transfusions -echo in 09/2019 showed EF 30-35% -cardio consulted. - c/w entresto, metoprolol - holding home dose furosemide and spironolactone Atrial fibrillation - digoxin level within normal limits - c/w metoprolol and digoxin - hold home xarelto IDDM - BGM + ISS Asthma -c/w albuterol PRN PPx -DVT: SCD, hold AC Dispo: transfer to [facility] [place]. Accepting physician: Dr. Pimentel. Visit type - Emergency Visit Emergency Visit: Yes ED Registration Date: 01/08/20 Care time: The patient presented to the Emergency Department on the above date and was hospitalized for further evaluation of their emergent condition. - New Patient This patient is new to me today: No - Critical Care Critical Care patient: No ATTENDING PHYSICIAN STATEMENT I saw and evaluated the patient. I reviewed the resident's note and discussed the case with the resident. I agree with the resident's findings and plan as documented. SUBJECTIVE: OBJECTIVE: ASSESSMENT AND PLAN:
[2020-01-08 19:07] LABS: EOS % 0.6 % (0-4.5); HEMATOCRIT 23.3 % (32.4-45.2); HEMOGLOBIN 7.7 GM/dL (10.7-15.3); LYMPH % 9.7 % (8-40); MCH 27.8 pg (25.7-33.7); MCHC 32.9 g/dl (32.0-36.0); MEAN CELL VOLUME 84.6 fl (80-96); MEAN PLT VOLUME 8.9 fl (7.5-11.1); NEUT % 82.7 % (42.8-82.8); PLATELET COUNT 159 K/MM3 (134-434); RBC 2.76 M/mm3 (3.60-5.2); RDW 18.2 % (11.6-15.6); WHITE BLOOD COUNT 10.9 K/mm3 (4.0-10.0)
[2020-01-08 19:41] LABS: ALBUMIN 2.4 g/dl (3.4-5.0); BILIRUBIN,TOTAL 2.4 mg/dL (0.2-1); CALCIUM 8.5 mg/dL (8.5-10.1); CREATININE 1.2 mg/dL (0.55-1.3); POTASSIUM 4.5 mmol/L (3.5-5.1); TOT PROT 5.3 g/dl (6.4-8.2)
[2020-01-08 19:43] LABS: INR 1.69 (0.83-1.09); PROTHROMBIN TIME (PATIENT) 20.1 SEC (9.7-13.0)
[2020-01-08] MEDS ORDERED: PHYTONADIONE 10 MG/1 ML AMP SQ ONE (19:58)
[2020-01-08] MEDS ORDERED: PT OWN MED DRAWER 7, Y5N ONE (20:08)
[2020-01-08] MEDS ORDERED: MUPIROCIN 2% TOPICAL OINTMENT FOR DECOLONIZATION NS SCH (22:00)
[2020-01-08] MEDS ORDERED: CHLORHEXIDINE GLUCONATE 4% CLEANSER FOR DECOLONIZATION TP SCH (22:00)
[2020-01-08] MEDS ORDERED: INSULIN SLIDING SCALE (NOVOLOG) 1 VIAL SQ SCH (22:00)
--- NOTE | 2020-01-09 06:17 | DS ---
Physical Exam: SUBJECTIVE: Pt transferred to [facility] MICU at [facility] under the care of Dr. Pimentel. OBJECTIVE: Vital Signs Period Temp Pulse Resp BP Sys/Khanna Pulse Ox Last 24 Hr 96.7 F-99.7 F 65-119 16-22 95-126/56-89 95-100 PHYSICAL EXAM GENERAL: Unkempt, sitting on chair. Somnolent. Responsive to sternal rub only. HEENT: NCAT, EOMI, dry mucus membranes CARDIAC: Tachycardic, regular rhythm, no murmurs. RESPIRATORY: CTA b/l, no wheezes ABDOMEN: Obese, soft, nontender to palpation EXTREMITIES: warm, 1+ pitting edema on b/l LE. SKIN: Dry, warm. Chronic venous stasis ulcer visualized b/l PSYCH: Pt uncooperative, poor eye contact. RECTAL: Pt declined rectal exam. LABS Laboratory Results - last 24 hr CBC, BMP 01/08/20 18:45 01/08/20 18:45 HOSPITAL COURSE: 54 yo F with PMH of Afib on Xarelto, HFrEF 30-35%, NSTEMI, IDDM, HTN, HLD, asthma, chronic LLE wound, and h/o cocain use presented to ED w/ fatigue and melena for 3 days. Labs on admission showed Hb 4.9. Pt currently admitted for GI bleed. Pt was kept NPO and placed on protonix drip. Xarelto held. Given 2 U pRBC, repeat Hb 5.9. Given another 2U pRBC. Lasix given between transfusions. Pt continued to have large melenotic stool. Opted to transfer to tertiary center, given pt's underlying co-morbidities. [facility] Pt was [facility] and transferred with ACLS to [facility] for further management. Date of Admission:01/08/20 Date of Discharge: 01/08/20 Minutes to complete discharge: 36 Discharge Summary Problems reviewed: Yes Reason For Visit: GASTROINTESTINAL HEMORRHAGE Condition: Guarded - Instructions Disposition: TRANSFER ACUTE CARE/OTHER HOSP - Home Medications Comprehensive Discharge Medication List: Ambulatory Orders Loratadine 10 mg PO DAILY PRN 06/30/19 Cholecalciferol (Vitamin D3) [Vitamin D3 -] 50,000 unit PO WEEKLY 09/16/19 Fluticasone Propion/Salmeterol [Wixela 500-50 Inhub] 1 inhaler IN BID 09/16/19 Insulin Glargine,Hum.rec.anlog [Devonaglvalentino Feldmanpen U-100] 38 unit SQ HS 09/16/19 Montelukast Sodium [Singulair] 10 mg PO HS #30 tablet 10/17/19 Liraglutide [Victoza -] 6 mg SQ WEEKLY 11/08/19 Albuterol Sulfate Inhaler - [Ventolin HFA Inhaler -] 2 puff IH Q4H PRN inhaler 12/06/19 Digoxin [Lanoxin -] 0.125 mg PO DAILY #30 tablet 12/06/19 Furosemide [Lasix -] 60 mg PO BID@0600,1400 #14 tablet 12/06/19 Metoprolol Succinate [Toprol Xl] 25 mg PO BID #14 tab.sr 12/06/19 Rivaroxaban [Xarelto -] 20 mg PO DAILY #30 tablet 12/06/19 Sacubitril/Valsartan [Entresto 24 mg-26 mg Tablet] 1 tab PO BID #60 tablet 12/06/19 Clopidogrel Bisulfate [Clopidogrel] 75 mg PO DAILY 01/08/20 Gabapentin 300 mg PO TID 01/08/20 Insulin Aspart [Novolog] 18 unit SQ 1200,2000 01/08/20 Pantoprazole Sodium [Protonix -] 20 mg PO DAILY 01/08/20 Simvastatin 20 mg PO DAILY 01/08/20 Spironolactone [Aldactone -] 25 mg PO DAILY 01/08/20 This patient is new to me today: No Emergency Visit: Yes ED Registration Date: 01/08/20 Care time: The patient presented to the Emergency Department on the above date and was hospitalized for further evaluation of their emergent condition. Critical Care patient: No - Discharge Referral Referred to [facility] Med P.C.: No ATTENDING PHYSICIAN STATEMENT I saw and evaluated the patient. I reviewed the resident's note and discussed the case with the resident. I agree with the resident's findings and plan as documented. SUBJECTIVE: OBJECTIVE: ASSESSMENT AND PLAN:
== END 2020-01-08 20:31 | disposition short-term general hospital (02) | DRG 253 ==
LOC: JER 20:59 → JERBED 01-08 01:04 → JICU 01-08 10:21
PROVIDERS: ADMIT Hospitalist; ATTEND Internal Medicine Pulmonary Disease
PROC: 30233N1 Transfusion of Nonautologous Red Blood Cells into Peripheral Vein, Percutaneous Approach (ICD-10-PCS; principal; 2020-01-08)
DX: K92.2 Gastrointestinal hemorrhage, unspecified (principal); J45.909 Unspecified asthma, uncomplicated; E78.5 Hyperlipidemia, unspecified; K92.1 Melena; D62 Acute posthemorrhagic anemia; F17.210 Nicotine dependence, cigarettes, uncomplicated; I25.10 Atherosclerotic heart disease of native coronary artery without angina pectoris; G47.30 Sleep apnea, unspecified; J44.9 Chronic obstructive pulmonary disease, unspecified; F41.9 Anxiety disorder, unspecified; F41.0 Panic disorder [episodic paroxysmal anxiety]; I48.20 Chronic atrial fibrillation, unspecified; G93.41 Metabolic encephalopathy; I27.20 Pulmonary hypertension, unspecified; I50.22 Chronic systolic (congestive) heart failure; I11.0 Hypertensive heart disease with heart failure; D68.9 Coagulation defect, unspecified; E11.65 Type 2 diabetes mellitus with hyperglycemia; E86.1 Hypovolemia; F14.90 Cocaine use, unspecified, uncomplicated
CPT/HCPCS: 36415; 36430; 36511; 70450-TC; 71045-TC-FY; 80053; 80162; 82550; 82962; 83880; 84484; 85025; 85384; 85610; 85730; 86850; 86900; 86901; 86922; 93005; 93010; 99285-25; P9038; P9058; U0003

== ENCOUNTER 2020-01-20 13:14 | Emergency (ER) | payer OTHER ==
--- NOTE | 2020-01-20 13:26 | PDOC ---
History of Present Illness - General Stated Complaint: FALL Time Seen by Provider: 01/20/20 13:25 History Source: Patient - History of Present Illness Initial Comments: 01/20/20 14:15 54F w/hx recent lower GI bleed with hg to 4.9 requiring transfusion and MICU admission at [facility], CAD, T2DM, HTN, HLD, CHF, COPD BIBEMS after a fall at home. She reports signing out AMA from [facility] ICU this morning. She is accompanied by her son. He reports that he cannot care for her in the home and is very concerned for her health, being frustrated with her decision to leave [facility] against medical advice. She reports rolling over and falling out of bed today due to bilateral lower extremity weakness that she reports has been present for years. She denies any chest pain, sob, or active hematochezia. She reports that she does not want to stay in the hospital. Per her son, she was scheduled for an inpatient colonoscopy tomorrow, and the medical team at the MICU at [facility] was very concerned with her decision to leave AMA with specific concern that she may if she leaves the hospital. Past History - Medical History Allergies/Adverse Reactions: Allergies Allergy/AdvReac Type Severity Reaction Status Date / Time amoxicillin trihydrate Allergy Intermediate Swelling Verified 12/04/19 11:47 [From Augmentin] potassium clavulanate Allergy Intermediate Swelling Verified 12/04/19 11:47 [From Augmentin] amoxicillin Allergy Verified 12/04/19 11:47 Home Medications: Ambulatory Orders Loratadine 10 mg PO DAILY PRN 06/30/19 Cholecalciferol (Vitamin D3) [Vitamin D3 -] 50,000 unit PO WEEKLY 09/16/19 Fluticasone Propion/Salmeterol [Wixela 500-50 Inhub] 1 inhaler IN BID 09/16/19 Insulin Glargine,Hum.rec.anlog [Basaglar Kwikpen U-100] 38 unit SQ HS 09/16/19 Montelukast Sodium [Singulair] 10 mg PO HS #30 tablet 10/17/19 Liraglutide [Victoza -] 6 mg SQ WEEKLY 11/08/19 Albuterol Sulfate Inhaler - [Ventolin HFA Inhaler -] 2 puff IH Q4H PRN inhaler 12/06/19 Digoxin [Lanoxin -] 0.125 mg PO DAILY #30 tablet 12/06/19 Furosemide [Lasix -] 60 mg PO BID@0600,1400 #14 tablet 12/06/19 Metoprolol Succinate [Toprol Xl] 25 mg PO BID #14 tab.sr 12/06/19 Rivaroxaban [Xarelto -] 20 mg PO DAILY #30 tablet 12/06/19 Sacubitril/Valsartan [Entresto 24 mg-26 mg Tablet] 1 tab PO BID #60 tablet 12/06/19 Clopidogrel Bisulfate [Clopidogrel] 75 mg PO DAILY 01/08/20 Gabapentin 300 mg PO TID 01/08/20 Insulin Aspart [Novolog] 18 unit SQ 1200,2000 01/08/20 Pantoprazole Sodium [Protonix -] 20 mg PO DAILY 01/08/20 Simvastatin 20 mg PO DAILY 01/08/20 Spironolactone [Aldactone -] 25 mg PO DAILY 01/08/20 Asthma: Yes Cancer: No Cardiac Disorders: Yes (reduced ejection fraction of 23%, [place] 2018) CVA: No COPD: Yes CHF: Yes (with pulmonary HTN) Diabetes: Yes Disorders: No HTN: Yes Hypercholesterolemia: Yes Liver Disease: No Psychiatric Problems: Yes (bipolar) Seizures: No Thyroid Disease: No - Surgical History Cardiac Surgery: No Cholecystectomy: Yes Neurologic Surgery: No Orthopedic Surgery: Yes (left knee replacemet - 1996) - Immunization History Immunization Up to Date: No - Psycho-Social/Smoking History Smoking Status: No Smoking History: Current some day smoker Have you smoked in the past 12 months: Yes Number of Cigarettes Smoked Daily: 1 If you are a former smoker, when did you quit?: 2019 'Breaking Loose' booklet given: 11/06/19 ED Treatment Course - LABORATORY CBC & Chemistry Diagram: 01/20/20 15:30 01/20/20 15:30 Discharge - Discharge Information Problems reviewed: Yes Clinical Impression/Diagnosis: Weakness Anemia Qualifiers: Anemia type: unspecified type Qualified Code(s): D64.9 - Anemia, unspecified Condition: Unchanged/Unknown Disposition: AGAINST MEDICAL ADVICE - Admission No - Follow up/Referral Referrals: Fili Espinoza MD [Primary Care Provider] - - Patient Discharge Instructions Patient Printed Discharge Instructions: DI for Muscle Weakness, Gastrointestinal Bleeding Additional Instructions: You were seen in the ER after a fall. Please return to the ER if you would like further evaluation, as discussed. Follow up with your primary care provider as soon as possible, or return to [facility] if you would like to return to the ICU for further management. - Post Discharge Activity
[2020-01-20 14:01] VITALS: BP 96/72; PULSE 92; TEMP 98.2; BMI 37.4
--- NOTE | 2020-01-20 14:18 | PDOC ---
Attending Attestation - Resident Resident Name: OlgaTom - ED Attending Attestation I have performed the following: I have examined & evaluated the patient, The case was reviewed & discussed with the resident, I agree w/resident's findings & plan, Exceptions are as noted - HPI HPI: 01/20/20 14:09 54YOF with h/o GIB and anemia requiring MICU admission and blood transfusion (admitted here to [facility] on 01/08/20, had a stay in the MICU, and transferred to [facility] but signed out over the past day AMA. The son brought her in today stating that she is too weak to even transfer herself at home, she needs help and does not have anyone able to do this. The son expresses concern that she has not had a bowel movement, they do not know if she is still actively bleeding, and she had two falls this morning. The patient recalls the two falls and notes it was because of leg weakness which has been unchanged over the past year. She denies any other new symptoms. She is able to provide 100% of her own history. - Physicial Exam PE: 01/20/20 14:18 GENERAL: a bit ill-appearing, A/Ox4, obese, a bit tearful and stating she wants to go home and take a nap, answers questions appropriately, has decision making capacity, sitting wheelchair HEENT: PERRLA, EOMI, dry mucous membranes and pale conjunctiva and gingiva, yellowing to fingernails NECK/BACK: no midline ttp, no spinal step-off or deformity, no hematoma, full ROM, neck supple CARDIOVASCULAR: regular rate/rhythm, no MGR, strong peripheral pulses, capillary refill <2 seconds, extremities wwp, no edema LUNGS/RESPIRATORY: no respiratory distress, CTAB GI/ABDOMEN: symmetric [id number], normoactive BS, soft, no ttp, no midline pulsatile masses : no CVA tenderness MSK/EXTREMITIES: no muscle atrophy, no acute deformity SKIN: warm and dry, no pallor, no jaundice, no rash, no pathologic-appearing bruising, no skin breakdown, no cuts, no lesions NEUROLOGICAL: GCS 15, CN II-XII grossly intact, 5/5 strength proximally and distally, no facial droop - Medical Decision Making 01/20/20 14:19 54YOF with GIB and anemia requiring blood Xfusion recently left AMA without resolution of this problem, p/w weakness and fall x2. Initial Vital Signs Temp Pulse Resp BP Pulse Ox 98.2 F 92 H 14 96/72 100 01/20/20 13:53 01/20/20 13:53 01/20/20 13:53 01/20/20 13:53 01/20/20 13:53 The concern is that the patient may have anemia severe enough to transfuse again. There are many possible causes of her GIB, including but not limited to AVM, mass, diverticulosis, hemorrhoids, etc. These possibilities were being previously worked up but she has not had colonoscopy yet (due to have it tomorrow). US guided PIV is placed with good return. Provider Orders Category Date Time Status TYPE AND SCREEN Stat Blood Bank 01/20/20 15:30 Completed ELECTROCARDIOGRAM [CARD] Stat Cardiology 01/20/20 13:26 Ordered BGM (Blood Glucose Monitoring) NOW Care 01/20/20 13:27 Completed EKG needed NOW Care 01/20/20 13:27 Completed Insert Saline Lock NOW Care 01/20/20 14:08 Completed ACTIVATED PTT Stat Lab 01/20/20 15:30 Completed CBC WITH DIFFERENTIAL Stat Lab 01/20/20 15:30 Completed COMP METABOLIC PANEL Stat Lab 01/20/20 15:30 Completed PT/INR (PROTHROMBIN TIME) Stat Lab 01/20/20 15:30 Completed TROPONIN I ([facility]) Stat Lab 01/20/20 15:30 Completed The Pt is choosing to leave AMA before labs have resulted and before EKG done. We have had thorough conversation about her high risk of or other serious complications. I have had a long discussion with them about the risks of leaving against our strong recommendation. They understand that the risks include and serious morbidity. They are of sound mind, are able to internalize and process and repeat back the information to me. Despite our conversation and their understanding of the gravity of the situation, they choose to leave AMA. AMA paperwork is completed and signed by all required parties. I also give them very clear discharge instructions to come back if they change their mind. I give them instructions on how to best care for themselves at home given that they choose not to stay here. Specific return precautions are discussed and they know they can return to the ED at any time. Lab Results WBC 6.6 K/mm3 (4.0-10.0) 01/20/20 15:30 RBC 3.88 M/mm3 (3.60-5.2) 01/20/20 15:30 Hgb 11.2 GM/dL (10.7-15.3) 01/20/20 15:30 Hct 34.1 % (32.4-45.2) D 01/20/20 15:30 MCV 87.7 fl (80-96) 01/20/20 15:30 MCH 28.8 pg (25.7-33.7) 01/20/20 15:30 MCHC 32.8 g/dl (32.0-36.0) 01/20/20 15:30 RDW 19.0 % (11.6-15.6) H 01/20/20 15:30 Plt Count 633 K/MM3 (134-434) H D 01/20/20 15:30 MPV 8.2 fl (7.5-11.1) 01/20/20 15:30 Absolute Neuts (auto) 4.6 K/mm3 (1.5-8.0) 01/20/20 15:30 Neutrophils % 69.9 % (42.8-82.8) 01/20/20 15:30 Lymphocytes % 15.7 % (8-40) D 01/20/20 15:30 Monocytes % 9.3 % (3.8-10.2) 01/20/20 15:30 Eosinophils % 2.9 % (0-4.5) D 01/20/20 15:30 Basophils % 2.2 % (0-2.0) H 01/20/20 15:30 Nucleated RBC % 0 % (0-0) 01/20/20 15:30 PT with INR 12.50 SEC (9.7-13.0) 01/20/20 15:30 INR 1.06 (0.83-1.09) 01/20/20 15:30 PTT (Actin FS) 33.1 SECONDS (25.2-36.5) 01/20/20 15:30 Sodium 140 mmol/L (136-145) 01/20/20 15:30 Potassium 4.3 mmol/L (3.5-5.1) 01/20/20 15:30 Chloride 105 mmol/L (98-107) 01/20/20 15:30 Carbon Dioxide 27 mmol/L (21-32) 01/20/20 15:30 Anion Gap 8 MMOL/L (8-16) 01/20/20 15:30 BUN 10.7 mg/dL (7-18) 01/20/20 15:30 Creatinine 0.9 mg/dL (0.55-1.3) 01/20/20 15:30 Est GFR (CKD-EPI)AfAm 84.01 01/20/20 15:30 Est GFR (CKD-EPI)NonAf 72.49 01/20/20 15:30 Random Glucose 157 mg/dL (74-106) H 01/20/20 15:30 Calcium 8.9 mg/dL (8.5-10.1) 01/20/20 15:30 Total Bilirubin 1.2 mg/dL (0.2-1) H 01/20/20 15:30 AST 88 U/L (15-37) H 01/20/20 15:30 ALT 51 U/L (13-61) 01/20/20 15:30 Alkaline Phosphatase 170 U/L (45-117) H 01/20/20 15:30 Total Protein 7.7 g/dl (6.4-8.2) 01/20/20 15:30 Albumin 2.7 g/dl (3.4-5.0) L 01/20/20 15:30 Blood Type AB POSITIVE 01/20/20 15:30 Antibody Screen Negative 01/20/20 15:30 The patient is called with the positive troponin result and encouraged to come back to the ED, but she refuses. She does understand the results of the test. Discharge - Discharge Information Problems reviewed: Yes Clinical Impression/Diagnosis: Weakness Anemia Qualifiers: Anemia type: unspecified type Qualified Code(s): D64.9 - Anemia, unspecified Condition: Unchanged/Unknown Disposition: AGAINST MEDICAL ADVICE - Follow up/Referral Referrals: Fili Espinoza MD [Primary Care Provider] - - Patient Discharge Instructions Patient Printed Discharge Instructions: DI for Muscle Weakness, Gastrointestinal Bleeding Additional Instructions: You were seen in the ER after a fall. Please return to the ER if you would like further evaluation, as discussed. Follow up with your primary care provider as soon as possible, or return to [facility] if you would like to return to the ICU for further management. - Post Discharge Activity
--- OUTSIDE RECORDS SUMMARY | 2020-01-20 14:34 | XMS ---
:1965 [address] [facility] Care Team Providers Name Role Phone MELISSA CORBIN Unavailable Unavailable ED STAFF PHYSICIAN Unavailable [facility] Unavailable ED STAFF PHYSICIAN Unavailable Unavailable Re-disclosure Warning The records that [...] is protected by Article 27-F of the [facility] Public Health law. If you continue you may haveaccess to information: Regarding HIV / AIDS; Provided by facilities licensed or operated by the [facility] Office of Mental Health; or Provided by the [facility] Office for People With Developmental Disabilities. If such information is present, then the following [facility] mandated warning applies: This information has been [...] law may result in a fine or prison sentence or both. A general authorization for the release of medical or other information is NOT sufficient authorization for further disclosure. Allergies and Adverse Reactions Type Description Substance Reaction Status Data Source(s ) Drug allergy Augmentin amoxicillin / throat closing, Active eCW3 ([facility] clavulanate [facility]) No Information No Information No Information [facility]C W2 ([facility]) No Information No Information No Information eC W2 ([facility]) No Information No Information No Information eC W2 ([facility]) No Information No Information No Information eC W2 ([facility]) No Information No Information No Information eC W2 ([facility]) No Information No Information No Information eC W2 ([facility]) No Information No Information No Information eC W2 ([facility]) No Information No Information No Information eC W2 ([facility]) Drug allergy Augmentin Amoxicillin / throat closing, Active eCW3 ([facility] Clavulanate [facility]) Encounters Encounter Providers Location Date Indications Data Source(s ) Emergency Attender: ED STAFF H 12/12/2019 [facility] PHYSICIANAttender: 04:44:[address] [facility] STAFF ED STAFF - 12/12/2019 PHYSICIANAdmitter: 10:17:00 PM EDT ED STAFF PHYSICIAN Patient discharged. Outpatient Attender: HR9 [facility] 10/24/2019 01:22:40 PM [facility] ([facility] EDT [facility]) Patient admitted. Outpatient Attender: [facility] 10/24/2019 01:22:21 PM [facility] ([facility] EDT [facility]) Patient admitted. Outpatient Attender: [facility] 10/24/2019 01:15:44 PM [facility] ([facility] EDT [facility]) Patient admitted. Outpatient Attender: [facility] 07/06/2019 05:28:15 AM [facility] ([facility] EDT [facility]) Patient admitted. Outpatient Attender: HRHC9 [facility] 03/03/2019 01:51:55 PM [facility] ([facility] EST [facility]) Patient admitted. (NBillable) [place] 02/16/2019 eCW3 ([facility] 12:00:00 AM EDT [facility] A28 - 02/16/2019 Care) 12:00:00 AM EDT Outpatient [place] 02/15/2019 eCW3 ([facility] 12:00:00 AM EDT [facility] A28 - 02/15/2019 Care) 12:00:00 AM EDT (NBillable) [place] 02/07/2019 eCW3 ([facility] Care 12:00:00 AM EDT [facility] A28 - 02/07/2019 Care) 12:00:00 AM EDT Emergency Attender: [facility]ELAINE 02/02/2019 [facility] 05:19:00 AM EDT [facility]2019 [facility] 10:59:00 PM EDT Center Patient discharged. (NBillable) [facility] 02/01/2019 eCW3 ([facility] A28 12:00:00 AM EDT - [facility] 02/01/2019 Care) 12:00:00 AM EDT (NBillable) [facility] 01/18/2019 eCW3 ([facility] A28 12:00:00 AM EDT - [facility] 01/18/2019 Care) 12:00:00 AM EDT (NBillable) [facility] 01/15/2019 eCW3 ([facility] A28 12:00:00 AM EDT - [facility] 01/15/2019 Care) 12:00:00 AM EDT Outpatient [facility] 12/29/2018 eCW3 [facility] 12:00:00 AM EDT - [facility] 12/29/2018 Care) 12:00:00 AM EDT (NBillable) [facility] 12/26/2018 eCW3 ([facility] A28 12:00:00 AM EDT - [facility] 12/26/2018 Care) 12:00:00 AM EDT Outpatient 12/22/2018 [facility] ([facility] 12:17:08 PM EDT [facility]) Patient admitted. (NBillable) [facility] 11/23/2018 eCW3 ([facility] A28 12:00:00 AM EDT - [facility] 11/23/2018 Care) 12:00:00 AM EDT (NBillable) [facility] 11/10/2018 eCW3 ([facility] A28 12:00:00 AM EDT - [facility] 11/10/2018 Care) 12:00:00 AM EDT Outpatient [facility] 11/06/2018 eCW3 ([facility] A28 12:00:00 AM EDT - [facility] 11/06/2018 Care) 12:00:00 AM EDT (NBillable) [facility] 11/06/2018 eCW3 ([facility] A28 12:00:00 AM EDT - [facility] 11/06/2018 Care) 12:00:00 AM EDT Outpatient [facility] 11/02/2018 eCW3 ([facility] A[facility] 12:00:00 AM EDT - [facility] 11/02/2018 Care) 12:00:00 AM EDT (NBillable) [facility] 10/26/2018 eCW3 ([facility] A28 12:00:00 AM EDT - [facility] 10/26/2018 Care) 12:00:00 AM EDT (NBillable) [facility] 10/17/2018 eCW3 ([facility] A28 12:00:00 AM EDT - [facility] 10/17/2018 Care) 12:00:00 AM EDT (NBillable) [facility] 10/13/2018 eCW3 ([facility] A28 12:00:00 AM EDT - [facility] 10/13/2018 Care) 12:00:00 AM EDT (NBillable) [facility] 10/10/2018 eCW3 ([facility] A28 12:00:00 AM EDT - [facility] 10/10/2018 Care) 12:00:00 AM EDT Outpatient [facility] 10/06/2018 eCW3 ([facility] 12:00:00 AM [facility] 12:00:00 AM EDT (NBillable) [facility] 10/06/2018 eCW3 ([facility] A28 12:00:00 AM EDT - [facility] 10/06/2018 Care) 12:00:00 AM EDT (NBillable) [facility] 10/05/2018 eCW3 ([facility] A28 12:00:00 AM EDT - [facility] 10/05/2018 Care) 12:00:00 AM EDT Outpatient [facility] 09/25/2018 eCW3 ([facility] A[facility] 12:00:00 AM EDT - [facility] 09/25/2018 Care) 12:00:00 AM EDT (NBillable) [facility] 09/25/2018 eCW3 ([facility] A28 12:00:00 AM EDT - [facility] 09/25/2018 Care) 12:00:00 AM EDT Outpatient [facility] 09/21/2018 eCW3 ([facility] 12:00:00 AM EDT - [facility] 09/21/2018 Care) 12:00:00 AM EDT (NBillable) [facility] 09/21/2018 eCW3 ([facility] A28 12:00:00 AM EDT - [facility] 09/21/2018 Care) 12:00:00 AM EDT (NBillable) [facility] 09/18/2018 eCW3 ([facility] A28 12:00:00 AM EDT - [facility] 09/18/2018 Care) 12:00:00 AM EDT (NBillable) [facility] 09/04/2018 eCW3 ([facility] A28 12:00:00 AM EDT - [facility] 09/04/2018 Care) 12:00:00 AM EDT Outpatient [facility] 09/01/2018 eCW3 ([facility] 12:00:00 AM [facility] 12:00:00 AM EDT (NBillable) [facility] 08/21/2018 eCW3 ([facility] A28 12:00:00 AM EDT - [facility] 08/21/2018 Care) 12:00:00 AM EDT Outpatient [facility] 08/14/2018 eCW3 ([facility] 12:00:00 AM [facility] 12:00:00 AM EDT (NBillable) [facility] 08/14/2018 eCW3 ([facility] A28 12:00:00 AM EDT - [facility] 08/14/2018 Care) 12:00:00 AM EDT (NBillable) [facility] 07/25/2018 eCW3 ([facility] A28 12:00:00 AM EDT - [facility] 07/25/2018 Care) 12:00:00 AM EDT (NBillable) [facility] 06/14/2018 eCW3 ([facility] A28 12:00:00 AM EST - [facility] 06/14/2018 Care) 12:00:00 AM EST (NBillable) [facility] 06/09/2018 eCW3 ([facility] A28 12:00:00 AM EST - [facility] 06/09/2018 Care) 12:00:00 AM EST (NBillable) [facility] 06/01/2018 eCW3 ([facility] A28 12:00:00 AM EST - [facility] 06/01/2018 Care) 12:00:00 AM EST [facility] 05/01/2018 eCW2 ([facility] 12:00:00 AM EST [facility] Care) [facility] 04/24/2018 eCW2 ([facility] 12:00:00 AM EST [facility]2018 [facility] 12:00:00 AM EST [facility] Care) [facility] 04/19/2018 eCW2 ([facility] 12[facility]00:00 AM EST [facility]) [facility] 04/13/2018 eCW2 ([facility] 12:00:00 AM EST [facility] Care) [facility] 03/27/2018 eCW2 ([facility] 12:00:00 AM EST [facility]) [facility] 03/23/2018 eCW2 ([facility] 12:00:00 AM EST [facility]) [facility] 03/16/2018 eCW2 ([facility] 12:00:00 AM EST [facility]) [facility] 03/04/2018 eCW2 ([facility] 12:00:00 AM EST [facility]) [facility] 03/04/2018 eCW2 ([facility] 12:00:00 AM EST [facility] Care) [facility] 03/02/2018 eCW2 ([facility] 12:00:00 AM EST [facility]) [facility] 03/01/2018 eCW2 ([facility] 12:00:00 AM EST [facility]) [facility] 03/01/2018 eCW2 ([facility] 12:00:00 AM EST [facility]) [facility] 02/27/2018 eCW2 ([facility] 12:00:00 AM EST [facility]) [facility] 02/27/2018 eCW2 ([facility] 12:00:00 AM EST [facility]) [facility] 02/21/2018 eCW2 ([facility] 12:00:00 AM EST [facility]) [facility] Phill Mcgheelyn 02/21/2018 eCW2 ([facility] 12:00:00 AM EST [facility]) [facility] Phill Mcgheelyn 02/10/2018 eCW2 ([facility] 12:00:00 AM EDT [facility]) [facility] Phill Mcgheelyn 02/10/2018 eCW2 ([facility] 12:00:00 AM EDT [facility]) [facility] Phill Mcgheelyn 02/01/2018 eCW2 ([facility] 12:00:00 AM EDT [facility]) [facility] Phill Janeth 01/30/2018 eCW2 ([facility] 12:00:00 AM EDT [facility]) [facility] Phill Mcgheelyn 01/27/2018 eCW2 ([facility] 12:00:00 AM EDT [facility]) [facility] Phill Mcgheelyn 01/26/2018 eCW2 ([facility] 12:00:00 AM EDT [facility]) [facility] Phill Mcgheelyn 01/26/2018 eCW2 ([facility] 12:00:00 AM EDT [facility]) [facility] Phill Mcgheelyn 01/25/2018 eCW2 ([facility] 12:00:00 AM EDT [facility]) [facility] Phill Janeth 01/24/2018 eCW2 ([facility] 12:00:00 AM EDT [facility]) [facility] Phill Janeth 01/18/2018 eCW2 ([facility] 12:00:00 AM EDT [facility] 01/18/2018 eCW2 ([facility] 12:00:00 AM EDT [facility] 01/18/2018 eCW2 ([facility] 12:00:00 AM EDT [facility]) [facility] 01/17/2018 eCW2 ([facility] 12:00:00 AM EDT [facility] 01/09/2018 eCW2 ([facility] 12:00:00 AM EDT [facility]) [facility] 01/09/2018 eCW2 ([facility] 12:00:00 AM EDT [facility]) [facility] 01/06/2018 eCW2 ([facility] 12:00:00 AM EDT [facility]) [facility] 01/06/2018 eCW2 ([facility] 12:00:00 AM EDT [facility]) [facility] 01/06/2018 eCW2 ([facility] 12:00:00 AM EDT [facility]) [facility] 01/05/2018 eCW2 ([facility] 12:00:00 AM EDT [facility]) [facility] 01/05/2018 eCW2 ([facility] 12:00:00 AM EDT [facility]) [facility] 01/05/2018 eCW2 ([facility] 12:00:00 AM EDT [facility]) [facility] 01/05/2018 eCW2 ([facility] 12:00:00 AM EDT [facility]) [facility] 01/04/2018 eCW2 ([facility] 12:00:00 AM EDT [facility]) [facility] 01/04/2018 eCW2 ([facility] 12:00:00 AM EDT [facility]) [facility] 12/30/2017 eCW2 ([facility] 12:00:00 AM EDT [facility]) [facility] Phill Janeth 12/30/2017 eCW2 ([facility] 12:00:00 AM EDT [facility]) [facility] Phill Janeth 12/28/2017 eCW2 ([facility] 12:00:00 AM EDT [facility]) [facility] 12/27/2017 eCW2 [facility] 12:00:00 AM EDT [facility]) [facility] 12/22/2017 eCW2 ([facility] 12:00:00 AM EDT [facility]) [facility] 12/22/2017 eCW2 ([facility] 12:00:00 AM EDT [facility]) [facility] 12/20/2017 eCW2 ([facility] 12:00:00 AM EDT [facility]) [facility] 12/20/2017 eCW2 ([facility] 12:00:00 AM EDT [facility]) [facility] 12/20/2017 eCW2 ([facility] 12:00:00 AM EDT [facility] 12/20/2017 eCW2 ([facility] 12:00:00 AM EDT [facility]) [facility] 12/16/2017 eCW2 ([facility] 12:00:00 AM EDT [facility]) [facility]/2017 e[facility] 12:00:00 AM EDT [facility] 12:00:00 AM EDT [facility]) [facility] 12/07/2017 eCW2 ([facility] 12:00:00 AM EDT [facility]) [facility] Phill Janeth 12/05/2017 eCW2 ([facility] 12:00:00 AM EDT [facility]) [facility] Phill Janeth 11/30/2017 eCW2 ([facility] 12:00:00 AM EDT [facility]) [facility] Phill Janeth 11/29/2017 eCW2 ([facility] 12:00:00 AM EDT [facility]) [facility] Phill Janeth 11/23/2017 eCW2 ([facility] 12:00:00 AM EDT [facility]) [facility] Phlil Janeth 11/17/2017 eCW2 ([facility] 12:00:00 AM EDT [facility]) [facility] Janeth 11/03/2017 eCW2 ([facility] 12:00:00 AM EDT [facility]) [facility] Phill Janeth 10/26/2017 eCW2 ([facility] 12:00:00 AM EDT [facility]) [facility] Phill Janeth 10/26/2017 eCW2 ([facility] 12:00:00 AM EDT [facility]) [facility] 10/17/2017 eCW2 ([facility] 12:00:00 AM EDT [facility]) [facility] Phill Janeth 10/15/2017 eCW2 ([facility] 12:00:00 AM EDT [facility]) [facility] Janeth 10/06/2017 eCW2 ([facility] 12:00:00 AM EDT [facility] 10/[facility]/2017 eCW2 ([facility] 12:00:00 AM EDT [facility] 10/[facility]/2017 eCW[facility] 12:00:00 AM EDT [facility] 09/21/2017 eCW2 ([facility] 12:00:00 AM EDT [facility]) [facility] Phill Janeth 09/20/2017 eCW2 ([facility] 12:00:00 AM EDT [facility]) [facility] Phill Janeth 09/20/2017 eCW2 ([facility] 12:00:00 AM EDT [facility]) [facility] Phill Janeth 09/16/2017 eCW2 ([facility] 12:00:00 AM EDT [facility] Care) [facility] Phill Janeth 09/16/2017 eCW2 ([facility] 12:00:00 AM EDT [facility]) [facility] Phill Janeth 09/13/2017 eCW2 ([facility] 12:00:00 AM EDT [facility]) [facility] Phill Mcgheelyn 09/09/2017 eCW2 ([facility] 12:00:00 AM EDT [facility]) [facility] Phill Janeth 09/09/2017 eCW2 ([facility] 12:00:00 AM EDT [facility]) [facility] Janeth 08/29/2017 eCW2 ([facility] 12:00:00 AM EDT [facility]) [facility] Phill Janeth 08/22/2017 eCW2 ([facility] 12:00:00 AM EDT [facility]) [facility] Phill Janeth 08/19/2017 eCW2 ([facility] 12:00:00 AM EDT [facility]/04/2017 eCW2 [facility] 12:00:00 AM EDT [facility] 07/20/2017 eCW2 ([facility] 12:00:00 AM EDT [facility]) [facility] 07/20/2017 eCW2 ([facility] 12:00:00 AM EDT [facility]) [facility] Phill Janeth 07/20/2017 eCW2 ([facility] 12:00:00 AM EDT [facility]) [facility] Janeth 07/19/2017 eCW2 ([facility] 12:00:00 AM EDT [facility]) [facility] Phill Janeth 07/18/2017 eCW2 ([facility] 12:00:00 AM EDT [facility]) [facility] 07/15/2017 eCW2 ([facility] 12:00:00 AM EDT [facility] 07/15/2017 eCW2 ([facility] 12:00:00 AM EDT [facility]) [facility] 07/13/2017 eCW2 ([facility] 12:00:00 AM EDT [facility] 07/13/2017 eCW2 ([facility] 12:00:00 AM EDT [facility]) [facility] Janeth 07/11/2017 eCW2 ([facility] 12:00:00 AM EDT [facility]) [facility] 06/16/2017 eCW2 ([facility] 12:00:00 AM EST [facility] 06/14/2017 eCW2 ([facility] 12:00:00 AM EST [facility] 06/13/2017 eCW2 ([facility] 12:00:00 AM EST [facility]) [facility] 06/13/2017 eCW2 ([facility] [facility] 12:00:00 AM EST [facility]2017 [facility] 12:00:00 AM EST [facility] Phill Mcgheelyn 06/07/2017 eCW2 ([facility] 12:00:00 AM EST [facility] Phill Janeth 05/24/2017 eCW2 ([facility] 12:00:00 AM EST [facility]) [facility] Phill Janeth 05/20/2017 eCW2 ([facility] 12:00:00 AM EST [facility]) [facility] Phill Janeth 05/16/2017 [facility]CW2 [facility] 12:00[facility]00 AM EST [facility] 12:00:00 AM EST [facility] 05/11/2017 eCW[facility] ([facility] 12:00:00 AM EST [facility]) [facility] Phill Janeth 05/10/2017 eCW2 ([facility] 12:00:00 AM EST [facility]) [facility] Janeth 05/04/2017 eCW2 ([facility] 12:00:00 AM EST [facility]) [facility] Janeth 04/27/2017 eCW2 ([facility] 12:00:00 AM EST [facility]) [facility] Phill Janeth 04/25/2017 eCW2 [facility] 12:00:00 AM EST [facility] 04/08/2017 eCW[facility] 12:00:00 AM EST [facility]) [facility] 04/08/2017 eCW2 [facility] 12:00:00 AM EST [facility] 04/08/2017 [facility]CW[facility] 12:00:00 AM EST [facility] Phill Janeth 04/06/2017 eCW2 ([facility] 12:00:00 AM EST [facility] 04/05/2017 eCW2 ([facility] 12:00:00 AM EST [facility] 03/21/2017 eCW2 ([facility] 12:00:00 AM EST [facility] 03/17/2017 eCW2 ([facility] 12:00:00 AM EST [facility]) [facility] 03/16/2017 eCW2 ([facility] 12:00:00 AM EST [facility] 03/15/2017 eCW2 ([facility] 12:00:00 AM EST [facility] 03/14/2017 eCW2 ([facility] 12:00:00 AM EST [facility]) [facility] 03/14/2017 eCW2 ([facility] 12:00:00 AM EST [facility] 03/03/2017 eCW2 ([facility] 12:00:00 AM EST [facility] 03/02/2017 eCW2 ([facility] 12:00:00 AM EST [facility]) [facility] 03/02/2017 eCW2 ([facility] 12:00:00 AM EST [facility]) [facility] 02/04/2017 eCW2 [facility] 12:00:00 AM EDT [facility]) [facility] 02/03/2017 eCW2 ([facility] 12:00:00 AM EDT [facility]) [facility] 01/28/2017 eCW2 ([facility] 12:00:00 AM EDT [facility]) [facility] 01/18/2017 eCW2 ([facility] 12:00:00 AM EDT [facility] 01/17/2017 eCW2 ([facility] 12:00:00 AM EDT [facility] 01/14/2017 eCW2 ([facility] 12:00:00 AM EDT [facility]) [facility] 01/11/2017 eCW2 ([facility] 12:00:00 AM EDT [facility]) [facility] 01/11/2017 eCW2 ([facility] 12:00:00 AM EDT [facility] 01/05/2017 eCW2 ([facility] 12:00:00 AM EDT [facility]) [facility] 12/31/2016 eCW2 ([facility] 12:00:00 AM EDT [facility] 12/29/2016 eCW2 ([facility] 12:00:00 AM EDT [facility]) [facility] 12/29/2016 eCW2 ([facility] 12:00:00 AM EDT [facility]) [facility] 12/22/2016 eCW2 ([facility] 12:00:00 AM EDT [facility]) [facility] 12/22/2016 eCW2 ([facility] 12:00:00 AM EDT [facility]) [facility] 11/24/2016 eCW2 ([facility] 12:00:00 AM EDT [facility]) [facility] 11/22/2016 eCW2 ([facility] 12:00:00 AM EDT [facility]) [facility] 11/17/2016 eCW2 ([facility] 12:00:00 AM EDT [facility]) [facility] 11/16/2016 eCW2 ([facility] 12:00:00 AM EDT [facility]) [facility] 11/16/2016 eCW2 ([facility] 12:00:00 AM EDT [facility]) [facility] 11/09/2016 eCW2 ([facility] 12:00:00 AM EDT [facility]) [facility] 11/04/2016 eCW2 ([facility] 12:00:00 AM EDT [facility]) [facility] 10/14/2016 eCW2 ([facility] 12:00:00 AM EDT [facility]) [facility] 10/13/2016 eCW2 ([facility] 12:00:00 AM EDT [facility]) [facility] 10/12/2016 eCW2 ([facility] 12:00:00 AM EDT [facility]) [facility] 10/11/2016 eCW2 ([facility] 12:00:00 AM EDT [facility]) [facility] 09/23/2016 eCW2 ([facility] 12:00:00 AM EDT [facility]) [facility] 09/21/2016 eCW2 ([facility] 12:00:00 AM EDT [facility]) [facility] 09/17/2016 eCW2 ([facility] 12:00:00 AM EDT [facility]) [facility] 09/16/2016 eCW2 ([facility] 12:00:00 AM EDT [facility] 09/16/2016 [facility]CW2 [facility] 12:00:00 AM EDT [facility]) [facility] 09/10/2016 eCW2 [facility] 12:00:00 AM EDT [facility]) [facility] 08/27/2016 eCW2 [facility] 12:00:00 AM EDT [facility]) [facility] 08/20/2016 eCW2 [facility] 12:00:00 AM EDT [facility]) [facility] 08/17/2016 [facility]CW2 [facility] 12:00:00 AM EDT [facility] 08/17/2016 eCW2 [facility] 12:00:00 AM EDT [facility]) [facility] 08/13/2016 eCW2 [facility] 12:00:00 AM EDT [facility]) [facility] 08/10/2016 eCW2 [facility] 12:00:00 AM EDT [facility]) [facility] 07/27/2016 eCW2 [facility] 12:00:00 AM EDT [facility]) [facility] 07/19/2016 eCW2 [facility] 12:00:00 AM EDT [facility]) [facility] 07/13/2016 eCW2 [facility] 12:00:00 AM EDT [facility]) [facility] 07/08/2016 eCW2 [facility] 12:00:00 AM EDT [facility]) [facility] 07/08/2016 eCW2 ([facility] 12:00:00 AM EDT [facility] 07/07/2016 eCW2 ([facility] 12:00:00 AM EDT [facility] 07/07/2016 eCW2 ([facility] 12:00:00 AM EDT [facility]) [facility] 06/23/2016 eCW2 ([facility] 12:00:00 AM EST [facility]) [facility] 06/21/2016 eCW2 ([facility] 12:00:00 AM EST [facility]) [facility] 06/21/2016 eCW2 ([facility] 12:00:00 AM EST [facility]) [facility] 05/25/2016 eCW2 ([facility] 12:00:00 AM EST [facility]) [facility] 05/20/2016 eCW2 ([facility] 12:00:00 AM EST [facility]) [facility] 05/19/2016 eCW2 ([facility] 12:00:00 AM EST [facility]) [facility] 05/17/2016 eCW2 ([facility] 12:00:00 AM EST [facility]) [facility] 05/04/2016 eCW2 ([facility] 12:00:00 AM EST [facility]) [facility] 04/28/2016 eCW2 ([facility] 12:00:00 AM EST [facility]) [facility] 04/28/2016 eCW2 ([facility] 12:00:00 AM EST [facility]) [facility] 04/27/2016 eCW2 ([facility] 12:00:00 AM EST [facility]) [facility] 04/16/2016 eCW2 ([facility] 12:00:00 AM EST [facility]) [facility] Phill Janeth 04/15/2016 eCW2 ([facility] 12:00:00 AM EST [facility]) [facility] Phill Janeth 04/08/2016 eCW2 ([facility] 12:00:00 AM EST [facility]) [facility] [place] Janeth 03/17/2016 eCW2 ([facility] 12:00:00 AM EST [facility]) [facility] 03/10/2016 eCW2 ([facility] 12:00:00 AM EST [facility]) [facility] 03/10/2016 eCW2 ([facility] 12:00:00 AM EST [facility]) [facility] 03/09/2016 eCW2 ([facility] 12:00:00 AM EST [facility]) [facility] 03/08/2016 eCW2 ([facility] 12:00:00 AM EST [facility]) [facility] 03/05/2016 eCW2 ([facility] 12:00:00 AM EST [facility]) [facility] Janeth 03/04/2016 eCW2 ([facility] 12:00:00 AM EST [facility]) [facility] 03/02/2016 eCW2 ([facility] 12:00:00 AM EST [facility]) [facility] 02/26/2016 eCW2 ([facility] 12:00:00 AM EST [facility] 02/19/2016 eCW2 ([facility] 12:00:00 AM EDT [facility] 02/18/2016 eCW2 ([facility] 12:00:00 AM EDT [facility]) [facility] Phill Janeth 02/16/2016 eCW2 ([facility] 12:00:00 AM EDT [facility]) [facility] Phill Janeth 02/13/2016 eCW2 ([facility] 12:00:00 AM EDT [facility]) [facility] 02/13/2016 eCW2 ([facility] 12:00:00 AM EDT [facility]) [facility] 02/13/2016 eCW2 ([facility] 12:00:00 AM EDT [facility] 02/10/2016 eCW2 ([facility] 12:00:00 AM EDT [facility]) [facility] 02/02/2016 eCW2 ([facility] 12:00:00 AM EDT [facility]) [facility] 01/29/2016 eCW2 ([facility] 12:00:00 AM EDT [facility]) [facility] 01/22/2016 eCW2 ([facility] 12:00:00 AM EDT [facility] 01/19/2016 eCW2 ([facility] 12:00:00 AM EDT [facility]) [facility] 01/06/2016 eCW2 ([facility] 12:00:00 AM EDT [facility]) [facility] 12/10/2015 eCW2 ([facility] 12:00:00 AM EDT [facility]) [facility] 12/08/2015 eCW2 ([facility] 12:00:00 AM EDT [facility]) [facility] 11/19/2015 eCW2 ([facility] 12:00:00 AM EDT [facility]) [facility] Phill Janeth 11/17/2015 eCW2 ([facility] 12:00:00 AM EDT [facility]) [facility] Phill Janeth 11/12/2015 eCW2 ([facility] 12:00:00 AM EDT [facility]) [facility]/2015 e[facility] 12:00:00 AM EDT [facility]) [facility] 11/04/2015 eCW2 ([facility] 12:00:00 AM EDT [facility] 11/03/2015 eCW2 ([facility] 12:00:00 AM EDT [facility]) [facility] 10/23/2015 eCW2 ([facility] 12:00:00 AM EDT [facility]) [facility] 10/21/2015 eCW2 ([facility] 12:00:00 AM EDT [facility]) [facility] 10/17/2015 eCW2 ([facility] 12:00:00 AM EDT [facility] 10/14/2015 eCW2 ([facility] 12:00:00 AM EDT [facility]) [facility] 10/03/2015 eCW2 ([facility] 12:00:00 AM EDT [facility] 09/30/2015 eCW2 ([facility] 12:00:00 AM EDT [facility]) [facility] 09/18/2015 eCW2 ([facility] 12:00:00 AM EDT [facility] 12:00:00 AM EDT [facility] 12:00:00 AM EDT [facility]) [facility] Phill Janeth 09/10/2015 eCW2 ([facility] 12:00:00 AM EDT [facility]) [facility] 08/28/2015 eCW2 ([facility] 12:00:00 AM EDT [facility]) [facility] 08/22/2015 eCW2 ([facility] 12:00:00 AM EDT [facility]) [facility] 08/20/2015 eCW2 ([facility] 12:00:00 AM EDT [facility] 08/19/2015 eCW2 ([facility] 12:00:00 AM EDT [facility]) [facility] 08/15/2015 eCW2 ([facility] 12:00:00 AM EDT [facility] 08/13/2015 eCW2 ([facility] 12:00:00 AM EDT [facility] 08/11/2015 eCW2 ([facility] 12:00:00 AM EDT [facility]) [facility] 08/08/2015 eCW2 ([facility] 12:00:00 AM EDT [facility] 08/04/2015 eCW2 ([facility] 12:00:00 AM EDT [facility]) [facility] 07/31/2015 eCW2 ([facility] 12:00:00 AM EDT [facility]) [facility] 07/31/2015 eCW2 [facility] 12:00:00 AM EDT [facility]) [facility] 07/21/2015 eCW2 ([facility] 12:00:00 AM EDT [facility]) [facility] Janeth 07/16/2015 eCW2 ([facility] 12:00:00 AM EDT [facility] 07/15/2015 eCW2 ([facility] 12:00:00 AM EDT [facility]) [facility] 07/11/2015 eCW2 ([facility] 12:00:00 AM EDT [facility]) [facility] 07/11/2015 eCW2 ([facility] 12:00:00 AM EDT [facility]) [facility] 07/09/2015 eCW2 ([facility] 12:00:00 AM EDT [facility]) [facility] 07/09/2015 eCW2 ([facility] 12:00:00 AM EDT [facility] 07/07/2015 eCW2 ([facility] 12:00:00 AM EDT [facility]) [facility] 07/03/2015 eCW2 ([facility] 12:00:00 AM EDT [facility]) [facility] 06/26/2015 eCW2 ([facility] 12:00:00 AM EST [facility]) [facility] 06/23/2015 eCW2 ([facility] 12:00:00 AM EST [facility]) [facility] 06/13/2015 eCW2 ([facility] 12:00:00 AM EST [facility]) [facility] 06/10/2015 eCW2 ([facility] 12:00:00 AM EST [facility]) [facility] 05/26/2015 eCW2 ([facility] 12:00:00 AM EST [facility]) [facility] Janeth 05/22/2015 eCW2 ([facility] 12:00:00 AM EST [facility]) [facility] Janeth 05/21/2015 eCW2 ([facility] 12:00:00 AM EST [facility]) [facility] 05/21/2015 eCW2 ([facility] 12:00:00 AM EST [facility]) [facility] 05/16/2015 eCW2 ([facility] 12:00:00 AM EST [facility]) [facility] 05/08/2015 eCW2 ([facility] 12:00:00 AM EST [facility]) [facility] 05/08/2015 eCW2 ([facility] 12:00:00 AM EST [facility]) [facility] 05/08/2015 eCW2 ([facility] 12:00:00 AM EST [facility] 05/02/2015 eCW2 ([facility] 12:00:00 AM EST [facility] 05/02/2015 eCW2 ([facility] 12:00:00 AM EST [facility]) [facility] 05/02/2015 eCW2 ([facility] 12:00:00 AM EST [facility]) [facility] 04/25/2015 eCW2 ([facility] 12:00:00 AM EST [facility]) [facility] 04/22/2015 eCW2 ([facility] 12:00:00 AM EST [facility]) [facility] 04/08/2015 eCW2 ([facility] 12:00:00 AM EST [facility]) [facility] Janeth 04/07/2015 eCW2 ([facility] 12:00:00 AM EST [facility]) [facility] Phill Janeth 03/27/2015 eCW2 ([facility] 12:00:00 AM EST [facility]) [facility] Phill Janeth 03/24/2015 eCW2 [facility] 12:00:00 AM EST [facility]) [facility] [place] Janeth 02/28/2015 eCW2 [facility] 12:00:00 AM EST [facility]) [facility] 02/26/2015 eCW2 [facility] 12:00:00 AM EST [facility] 02/11/2015 eCW2 [facility] 12:00:00 AM EDT [facility]) [facility] 02/11/2015 eCW2 [facility] 12:00:00 AM EDT [facility]) [facility] 02/06/2015 eCW2 [facility] 12:00:00 AM EDT [facility] 02/06/2015 eCW2 [facility] 12:00:00 AM EDT [facility]) [facility] 02/05/2015 eCW2 [facility] 12:00:00 AM EDT [facility] 02/05/2015 eCW2 [facility] 12:00:00 AM EDT [facility] 02/05/2015 eCW2 ([facility] [facility] 12:00:00 AM EDT [facility] 01/15/2015 eCW2 [facility] 12:00[facility]00 AM EDT [facility] 12/09/2014 [facility] 12[facility]00[facility]00 AM EDEd [facility]) [facility] Janeth 12/06/2014 eC W2 ([facility] 12:00:00 AM EDEd [facility]) [facility] Jan[facility] 11/05/2014 eC W2 ([facility] 12:00:00 AM EDEd [facility]) [facility] 11/04/2014 eCW2 ([facility] 12:00:00 AM EDEd [facility]) [facility] Jan[facility] 10/16/2014 eC W2 ([facility] 12:00:00 AM EDEd [facility]) [facility] ([facility] 12:00:00 AM EDEd [facility]) [facility]14/2014 [facility] ([facility] 12:00:00 AM EDEd [facility]) [facility] 09/11/2014 eCW2 ([facility] 12:00:00 AM [facility] ([facility] 12:00:00 AM [facility] 09/02/2014 eCW2 ([facility] 12:00:00 AM EDEd [facility]) [facility] Janeth 08/15/2014 eCW2 ([facility] 12:00:00 AM EDEd [facility] 08/07/2014 eCW2 ([facility] 12:00:00 AM [facility] 08/07/2014 eCW2 ([facility] 12:00:00 AM EDEd [facility]) [facility] 08/07/2014 eCW2 ([facility] 12:00:00 AM EDT [facility] 08/07/2014 [facility] 12:00:00 AM EDT [facility] 08/06/2014 e[facility] ([facility] 12:00:00 AM EDT [facility]) [facility] 08/05/2014 eCW2 ([facility] 12:00:00 AM EDT [facility]) [facility] 08/05/2014 eCW2 ([facility] 12:00:00 AM EDT [facility]) [facility] 08/05/2014 eCW2 ([facility] 12:00:00 AM EDT [facility]) [facility] 07/30/2014 eCW2 ([facility] 12:00:00 AM EDT [facility]) [facility] 07/24/2014 eCW2 ([facility] 12:00:00 AM EDT [facility]) [facility] 07/22/2014 eCW2 ([facility] 12:00:00 AM EDT [facility]) [facility] 07/18/2014 eCW2 ([facility] 12:00:00 AM EDT [facility]) [facility] 07/17/2014 eCW2 ([facility] 12:00:00 AM EDT [facility]) [facility] 07/17/2014 eCW2 ([facility] 12:00:00 AM EDT [facility]) [facility] 07/16/2014 eCW2 ([facility] 12:00:00 AM EDT [facility]) [facility] 07/15/2014 eCW2 [facility] 12:00:00 AM EDT [facility]) [facility] 07/12/2014 eCW2 [facility] 12:00:00 AM EDT [facility] 07/11/2014 eCW2 [facility] 12:00:00 AM EDT [facility]) [facility] 07/10/2014 eCW2 ([facility] 12:00:00 AM EDT [facility]) [facility] 07/10/2014 eCW2 ([facility] 12:00:00 AM EDT [facility]) [facility] 07/10/2014 eCW2 ([facility] 12:00:00 AM EDT [facility]) [facility] 07/09/2014 eCW2 ([facility] 12:00:00 AM EDT [facility]) [facility] 07/09/2014 eCW2 ([facility] 12:00:00 AM EDT [facility]) [facility] 07/08/2014 eCW2 ([facility] 12:00:00 AM EDT [facility]) [facility] 07/03/2014 [facility]CW2 [facility] 12:00:00 AM EDT [facility]) [facility] 07/02/2014 eCW2 ([facility] 12:00:00 AM EDT [facility]) [facility] 07/02/2014 [facility]CW[facility] 12:00:00 AM EDT [facility]) [facility] 07/02/2014 eCW2 [facility] 12:00:00 AM EDT [facility]) [facility] 06/26/2014 eCW2 ([facility] 12:00:00 AM EDT [facility] 06/21/2014 eCW2 [facility] 12:00:00 AM EST [facility]) [facility] 06/18/2014 eCW2 ([facility] 12:00:00 AM EST [facility]) [facility] 06/17/2014 eCW2 ([facility] 12:00:00 AM EST [facility]) [facility] 06/17/2014 eCW2 ([facility] 12:00:00 AM EST [facility]) [facility] 06/12/2014 eCW2 ([facility] 12:00:00 AM EST [facility]) [facility] 05/28/2014 eCW2 ([facility] 12:00:00 AM EST [facility]) [facility] 05/07/2014 eCW2 ([facility] 12:00:00 AM EST [facility]) [facility] 05/02/2014 eCW2 ([facility] 12:00:00 AM EST [facility]) Alessia Janeth 04/17/2014 eCW2 ([facility] 12:00:00 AM EST [facility]) [facility] 04/03/2014 eCW2 ([facility] 12:00:00 AM EST [facility]) [facility] 03/26/2014 eCW2 ([facility] 12:00:00 AM EST [facility]) Jono Janeth 02/18/2014 eCW2 ([facility] 12:00:00 AM EST [facility]) [facility] 02/12/2014 eCW2 ([facility] 12:00:00 AM EDT [facility]) [facility] 01/30/2014 eCW2 ([facility] 12:00:00 AM EDT [facility]) [facility] 01/29/2014 eCW2 [facility] 12:00:00 AM EDT [facility]) [facility] 01/09/2014 eCW2 [facility] 12:00:00 AM EDT [facility]) [facility] 01/09/2014 eCW2 ([facility] 12:00:00 AM EDT [facility]) [facility] 01/09/2014 eCW2 ([facility] 12:00:00 AM EDT [facility]) [facility] 12/06/2013 eCW2 ([facility] 12:00:00 AM EDT [facility]) [facility] 12/06/2013 eCW2 ([facility] 12:00:00 AM EDT [facility]) [facility] 12/06/2013 eCW2 ([facility] 12:00:00 AM EDT [facility]) [facility] 11/14/2013 eCW2 ([facility] 12:00:00 AM EDT [facility]) [facility] 10/29/2013 eCW2 [facility] 12:00:00 AM EDT [facility]) [facility] 10/25/2013 eCW2 ([facility] 12:00:00 AM EDT [facility]) [facility] 10/18/2013 eCW2 ([facility] 12:00:00 AM EDT [facility]) [facility] 10/16/2013 eCW2 ([facility] 12:00:00 AM EDT [facility]) [facility] 10/12/2013 eCW2 ([facility] 12:00:00 AM EDT [facility]) [facility] 10/11/2013 eCW2 ([facility] 12:00:00 AM EDT [facility]) [facility] 10/11/2013 eCW2 ([facility] 12:00:00 AM EDT [facility]) [facility] 10/10/2013 eCW2 [facility] 12:00:00 AM EDT [facility]) [facility] 09/04/2013 eCW2 [facility] 12:00:00 AM EDT [facility]) [facility] 09/03/2013 eCW2 [facility] 12:00:00 AM EDT [facility]) [facility] 09/03/2013 eCW2 ([facility] 12:00:00 AM EDT [facility]) [facility] 08/14/2013 eCW2 [facility] 12:00:00 AM EDT [facility]) [facility] 08/13/2013 eCW2 ([facility] 12:00:00 AM EDT [facility]) [facility] 08/09/2013 eCW2 ([facility] 12:00:00 AM EDT [facility]) [facility] 08/08/2013 eCW2 [facility] 12:00:00 AM EDT [facility]) [facility] 07/27/2013 eCW2 ([facility] 12:00:00 AM EDT [facility]) [facility] 07/20/2013 eCW2 ([facility] 12:00:00 AM EDT [facility]) [facility] 07/10/2013 eCW2 ([facility] 12:00:00 AM EDT [facility] 07/09/2013 eCW2 [facility] 12:00:00 AM EDT [facility] 07/09/2013 eCW2 [facility] 12:00:00 AM EDT [facility]) [facility] 07/06/2013 eCW2 ([facility] 12:00:00 AM EDT [facility]) [facility] 06/12/2013 eCW2 [facility] 12:00:00 AM EST [facility]) [facility] 06/07/2013 eCW2 [facility] 12:00:00 AM EST [facility]) [facility] 05/18/2013 eCW2 [facility] 12:00:00 AM EST [facility]) [facility] 04/06/2013 eCW2 [facility] 12:00:00 AM EST [facility]) [facility] 04/04/2013 eCW2 [facility] 12:00:00 AM EST [facility]) [facility] 03/23/2013 eCW2 [facility] 12:00:00 AM EST [facility]) [facility] 03/22/2013 eCW2 ([facility] 12:00:00 AM EST [facility]) [facility] 03/21/2013 eCW2 ([facility] 12:00:00 AM EST [facility]) [facility] 03/14/2013 eCW2 ([facility] 12:00:00 AM EST [facility]) [facility] 03/13/2013 eCW2 ([facility] 12:00:00 AM EST [facility]) [facility] 03/05/2013 eCW2 ([facility] 12:00:00 AM EST [facility] 02/23/2013 eCW2 ([facility] 12:00:00 AM EST [facility]) [facility] 02/23/2013 eCW2 ([facility] 12:00:00 AM EST [facility]) [facility] 02/22/2013 eCW2 ([facility] 12:00:00 AM EST [facility]) [facility] 02/22/2013 eCW2 ([facility] 12:00:00 AM EST [facility]) [facility] 02/19/2013 eCW2 ([facility] 12:00:00 AM EST [facility]) [facility] 02/08/2013 eCW2 ([facility] 12:00:00 AM EDT [facility]) [facility] 02/05/2013 eCW2 ([facility] 12:00:00 AM EDT [facility]) [facility] 02/05/2013 eCW2 ([facility] 12:00:00 AM EDT [facility]) [facility] 12/01/2012 eCW2 ([facility] 12:00:00 AM EDT [facility]) [facility] 11/30/2012 eCW2 ([facility] 12:00:00 AM EDT [facility]) [facility] 11/30/2012 eCW2 ([facility] 12:00:00 AM EDT [facility]) [facility] 11/22/2012 eCW2 ([facility] 12:00:00 AM EDT [facility]) [facility] 10/04/2012 eCW2 ([facility] 12:00:00 AM EDT [facility]) [facility] 10/02/2012 eCW2 ([facility] 12:00:00 AM EDT [facility]) [facility] 09/06/2012 eCW2 ([facility] 12:00:00 AM EDT [facility]) [facility] 07/19/2012 eCW2 ([facility] 12:00:00 AM EDT [facility]) [facility] 07/19/2012 eCW2 ([facility] 12:00:00 AM EDT [facility]) [facility] 05/09/2012 eCW2 ([facility] 12:00:00 AM EST [facility]) [facility] 02/04/2012 eCW2 ([facility] 12:00:00 AM EDT [facility]) [facility] 01/06/2012 eCW2 ([facility] 12:00:00 AM EDT [facility]) [facility] 01/06/2012 eCW2 ([facility] 12:00:00 AM EDT [facility]) [facility] 12/06/2011 eCW2 ([facility] 12:00:00 AM EDT [facility]) [facility] 12/06/2011 eCW2 ([facility] 12:00:00 AM EDT [facility]) [facility] 12/01/2011 eCW2 ([facility] 12:00:00 AM EDT [facility]) [facility] 12/01/2011 eCW2 ([facility] 12:00:00 AM EDT [facility]) [facility] 11/16/2011 eCW2 ([facility] 12:00:00 AM EDT [facility]) [facility] 11/13/2011 eCW2 ([facility] 12:00:00 AM EDT [facility]) [facility] 11/13/2011 eCW2 ([facility] 12:00:00 AM EDT [facility]) [facility] 11/03/2011 eCW2 [facility] 12:00:00 AM EDT [facility]) [facility] 11/03/2011 eCW2 [facility] 12:00:00 AM EDT [facility]) [facility] 10/13/2011 eCW2 [facility] 12:00:00 AM EDT [facility]) [facility] 10/08/2011 eCW2 [facility] 12:00:00 AM EDT [facility]) [facility] 10/08/2011 eCW2 ([facility] 12:00:00 AM EDT [facility]) [facility] 10/04/2011 eCW2 [facility] 12:00:00 AM EDT [facility]) [facility] 08/19/2011 eCW2 [facility] 12:00:00 AM EDT [facility]) [facility] 08/13/2011 eCW2 ([facility] 12:00:00 AM EDT [facility]) [facility] 07/05/2011 eCW2 ([facility] 12:00:00 AM EDT [facility]) [facility] 07/02/2011 eCW2 [facility] 12:00:00 AM EDT [facility]) [facility] 06/30/2011 [facility]CW2 [facility] 12:00[facility]00 AM EDT [facility]) [facility] 06/21/2011 eCW2 ([facility] 12:00:00 AM EST [facility] 06/17/2011 eCW2 ([facility] 12:00:00 AM EST [facility]) [facility] 06/17/2011 eCW2 ([facility] 12:00:00 AM EST [facility] 06/08/2011 eCW2 ([facility] 12:00:00 AM EST [facility]) [facility] 05/13/2011 eCW2 ([facility] 12:00:00 AM EST [facility]) [facility] 05/05/2011 eCW2 ([facility] 12:00:00 AM EST [facility] 04/27/2011 eCW2 ([facility] 12:00:00 AM EST [facility]) [facility] 04/27/2011 eCW2 ([facility] 12:00:00 AM EST [facility]) [facility] 04/01/2011 eCW2 ([facility] 12:00:00 AM EST [facility]) [facility] 03/31/2011 eCW2 ([facility] 12:00:00 AM EST [facility]) [facility] 03/03/2011 eCW2 ([facility] 12:00:00 AM EST [facility]) [facility] 01/18/2011 eCW2 ([facility] 12:00:00 AM EDT [facility]) [facility] 01/07/2011 eCW2 ([facility] 12:00:00 AM EDT [facility]) [facility] 12/17/2010 eCW2 ([facility] 12:00:00 AM EDT [facility]/2010 [facility] 12:00:00 AM EDT [facility] 10/21/2010 eCW2 ([facility] 12:00:00 AM EDT [facility]) [facility] 10/12/2010 eCW2 ([facility] 12:00:00 AM EDT [facility]) [facility] 10/12/2010 eCW2 [facility] 12:00:00 AM EDT [facility] 10/12/2010 eCW2 [facility] 12:00:00 AM EDT [facility]) [facility] 10/12/2010 eCW2 ([facility] 12:00:00 AM EDT [facility]) [facility] 10/02/2010 eCW2 [facility] 12:00:00 AM EDT [facility]) [facility] 10/02/2010 eCW2 [facility] 12:00:00 AM EDT [facility]) [facility] 09/30/2010 eCW2 ([facility] 12:00:00 AM EDT [facility]) [facility] 09/23/2010 eCW2 ([facility] 12:00:00 AM EDT [facility]) [facility] 09/18/2010 eCW2 ([facility] 12:00:00 AM EDT [facility]) [facility] 09/11/2010 eCW2 [facility] 12:00:00 AM EDT [facility]) [facility] 09/10/2010 eCW2 ([facility] 12:00:00 AM EDT [facility]) [facility] 09/07/2010 eCW2 ([facility] 12:00:00 AM EDT [facility] 08/19/2010 eCW2 ([facility] 12:00:00 AM EDT [facility]) [facility] 08/18/2010 eCW2 ([facility] 12:00:00 AM EDT [facility]) [facility] 08/17/2010 eCW2 ([facility] 12:00:00 AM EDT [facility] 08/11/2010 eCW2 ([facility] 12:00:00 AM EDT [facility] 04/22/2010 eCW2 ([facility] 12:00:00 AM EST [facility]) [facility] 03/24/2010 eCW2 ([facility] 12:00:00 AM EST [facility]) [facility] 03/23/2010 eCW2 ([facility] 12:00:00 AM EST [facility]) [facility] 03/20/2010 eCW2 ([facility] 12:00:00 AM EST [facility]) [facility] 03/19/2010 eCW2 ([facility] 12:00:00 AM EST [facility]) [facility] 03/17/2010 eCW2 ([facility] 12:00:00 AM EST [facility]) [facility] 03/16/2010 eCW2 ([facility] 12:00:00 AM EST [facility]) [facility] 03/09/2010 eCW2 [facility] 12:00:00 AM EST [facility]) [facility] 03/09/2010 eCW2 ([facility] 12:00:00 AM EST [facility]) [facility] 03/03/2010 eCW2 ([facility] 12:00:00 AM EST [facility]) [facility] 03/03/2010 eCW2 ([facility] 12:00:00 AM EST [facility]) [facility] 02/05/2010 eCW2 ([facility] 12:00:00 AM EDT [facility]) [facility] 01/12/2010 eCW2 ([facility] 12:00:00 AM EDT [facility]) [facility] 12/24/2009 eCW2 ([facility] 12:00:00 AM EDT [facility] 12/15/2009 eCW2 ([facility] 12:00:00 AM EDT [facility]) [facility] 12/12/2009 eCW2 ([facility] 12:00:00 AM EDT [facility]) [facility] 11/25/2009 eCW2 ([facility] 12:00:00 AM EDT [facility]) [facility] 11/21/2009 eCW2 ([facility] 12:00:00 AM EDT [facility]) [facility] 10/15/2009 eCW2 ([facility] 12:00:00 AM EDT [facility]) [facility] 09/22/2009 eCW2 ([facility] 12:00:00 AM EDT [facility]) [facility] 06/30/2009 eCW2 ([facility] 12:00:00 AM EDT [facility]) [facility] Janeth 06/11/2009 eCW2 ([facility] 12:00:00 AM EST [facility] 06/04/2009 eCW2 ([facility] 12:00:00 AM EST [facility]) [facility] 06/04/2009 eCW2 ([facility] 12:00:00 AM EST [facility]) [facility] 05/26/2009 eCW2 ([facility] 12:00:00 AM EST [facility]) [facility] 05/01/2009 eCW2 ([facility] 12:00:00 AM EST [facility]) [facility] 04/30/2009 eCW2 ([facility] 12:00:00 AM EST [facility]) [facility] 04/30/2009 eCW2 ([facility] 12:00:00 AM EST [facility]) [facility] 04/24/2009 eCW2 ([facility] 12:00:00 AM EST [facility]) [facility] 04/24/2009 eCW2 ([facility] 12:00:00 AM EST [facility]) [facility] 04/22/[facility] eCW[facility] ([facility] 12:00:00 AM EST [facility]) [facility] 04/22/2009 eCW2 ([facility] 12:00:00 AM EST [facility]) [facility] 04/22/2009 eCW2 ([facility] 12:00:00 AM EST [facility]) [facility] 10/17/2008 eCW2 ([facility] 12:00:00 AM EDT [facility]) [facility] 10/11/2008 eCW2 ([facility] 12:00:00 AM [facility] Care) Alexandra Fowler 09/26/2008 eCW2 ([facility] 12:00:00 AM [facility] Care) Immunizations Vaccine Date Status Description Data Source(s) varicella 12/22/2017 completed eCW3 ([facility] 10:22:00 AM [facility] Care) varicella 12/22/2017 completed eCW3 ([facility] 10:22:00 AM [facility] Health Care) varicella 12/22/2017 completed eCW3 ([facility] 10:22:00 AM [facility]) varicella 12/22/2017 completed eCW3 ([facility] 10:22:00 AM [facility]) varicella 12/22/2017 completed eCW3 ([facility] 10:22:00 AM [facility]) varicella 12/22/2017 completed eCW3 ([facility] 10:22:00 AM [facility]) varicella 12/22/2017 completed eCW3 ([facility] 10:22:00 AM [facility]) Tdap 08/19/2010 completed eCW3 ([facility] 03:55:22 PM ED Health Care) Tdap 08/19/2010 completed eCW3 ([facility] 03:55:22 PM [facility] Health Care) Tdap 08/19/2010 completed eCW3 ([facility] 03:55:22 PM [facility] Health Care) Tdap 08/19/2010 completed eCW3 ([facility] 03:55:22 PM [facility] Health Care) Tdap 08/19/2010 completed eCW3 ([facility] 03:55:22 PM [facility] Health Care) Tdap 08/19/2010 completed eCW3 ([facility] 03:55:22 PM ED Health Care) Tdap 08/19/2010 completed eCW3 ([facility] 03:55:22 PM [facility]) No Known Immunizations completed eCW2 ([facility]) No Known Immunizations completed eCW2 ([facility]) No Known Immunizations completed eCW2 ([facility]) No Known Immunizations completed eCW2 ([facility]) No Known Immunizations completed eCW2 ([facility]) No Known Immunizations completed eCW2 ([facility]) No Known Immunizations completed eCW2 ([facility]) No Known Immunizations completed eCW2 ([facility]) Medications Medication Brand Start Product Dose Route Administrative Pharmacy diana Indications Reaction Description Data Name Date Form Instructions Instructions Source(s) Cyclobenzap Cyclob .0 active Cyclobe nzapr eCW3 [...] AM Health HCl 25 MG EDT Care) Sertraline Sertra .0 active Sertrali ne eCW3 [...] AM Health HCl 25 MG EDT Care) Blood Blood 10/22/ active Blood eCW3 Glucose Glucos 2020 Glucose ([facility] Monitor e 12:00: [facility] [place] 00 AM System Health w/Device r EDT w/Device Care) System w/[place] ce Blood Blood 10/22/ active Blood eCW3 Glucose Glucos 2020 Glucose ([facility] Monitor e 12:00: Monitor [facility] [place] 00 AM System Health w/Device r EDT w/Device Care) System w/[place] ce Bacitracin Bacitr 1.0 active Bacitrac in eCW3 [...] w/Device Care) System w/[place] ce Bacitracin Bacitr 1.0 active Bacitrac in eCW3 0.5 UNT/MG acin 2020 {appl 500 UNIT/GM ( [facility] Topical 500 12:00: icati [facility] Ointment UNIT/G 00 AM on} Health Bacitracin M EDT Care) 500 UNIT/GM Bacitracin Bacitr 1.0 active Bacitrac in eCW3 [...] w/Device Care) System w/[place] ce Bacitracin Bacitr 1.0 active Bacitrac in eCW3 [...] w/Device Care) System w/[place] ce Bacitracin Bacitr // 1.0 active Bacitrac in [...] AM Health EDT Care) Nebulizer - Nebuli 07/ active Nebuliz er - eCW3 zer - 2020 ([facility] 12:00: [facility] 00 AM Health EDT Care) Nebulizer - Nebuli 10/21/ active Nebuliz er - eCW3 zer - 2020 ([facility] 12:00: [facility] 00 AM Health EDT Care) Nebulizer - Nebuli 07/ active Nebuliz er - eCW3 zer - 2020 ([facility] 12:00: [facility] 00 AM Health EDT Care) Nebulizer - Nebuli 07/ active Nebuliz er - eCW3 zer - 2020 ([facility] 12:00: [facility] 00 AM Health EDT Care) Nebulizer - Nebuli 10/21/ active Nebuliz er - eCW3 zer - 2020 ([facility] 12:00: [facility] 00 AM Health EDT Care) Nebulizer - Nebuli 07/ active Nebuliz er - eCW3 zer - 2020 ([facility] 12:00: [facility] 00 AM Health EDT Care) Nebulizer - Nebuli 07/ active Nebuliz er - eCW3 zer - [...] 00 AM Health EDT Care) COLLAGENASE Santyl 1.0 active Santyl 250 eCW3 [...] EDT Care) Santyl 250 UNIT/GM COLLAGENASE Santyl 06/05/ 1.0 active Santyl 250 eCW3 0.25 UNT/MG [...] EDT Care) Santyl 250 UNIT/GM COLLAGENASE Santyl .0 active Santyl 250 eCW3 0.25 UNT/MG 250 [...] 00 AM Health EDT Care) Cholecalcif UNK 09/12/ 1.0 active Cholecalc sabina eCW3 simon 42882 2019 {tabl rol 41330 ([facility] UNIT 12:00: et} UNIT [facility] [...] 00 AM Health EDT Care) Bacitracin Bacitr 09/12/ 1.0 active Bacitrac in eCW3 0.5 UNT/MG acin 2019 {appl 500 UNIT/GM ( [facility] Topical 500 12:00: icati [facility] Ointment UNIT/G 00 AM on} Health Bacitracin M EDT Care) 500 UNIT/GM Sulfamethox Bactri 09/12/ 1.0 active Bactrim DS eCW3 azole 800 m DS 2019 {tabl 800-160 MG ([facility] MG / 800-16 12:00: et} [facility] Trimethopri 0 MG 00 AM Health m 160 MG EDT Care) Oral Tablet [Bactrim] Bactrim DS 800-160 MG Bacitracin Bacitr 05/28/ 1.0 active Bacitrac in eCW3 0.5 UNT/MG acin 2020 {appl 500 UNIT/GM ( [facility] Topical 500 12:00: icati [facility] Ointment UNIT/G 00 AM on} Health Bacitracin M EDT Care) 500 UNIT/GM Cholecalcif UNK 1.0 active Cholecalc sabina eCW3 simon 13168 2019 {tabl rol 64805 ([facility] UNIT 12:00: et} UNIT [facility] 00 AM Health EDT Care) Cholecalcif UNK 1.0 active Cholecalc sabina eCW3 simon 34700 2019 {tabl rol 23136 ([facility] UNIT 12:00: et} UNIT [facility] 00 AM Health EDT Care) Prednisone Predni 09/12/ active PredniSO NE eCW3 10 MG Oral SONE 2020 10 MG ([facility] Tablet 10 MG 12:00: [facility] PredniSONE 00 AM Health 10 MG EDT Care) Cholecalcif UNK .0 active Cholecalc sabina eCW3 simon 85584 2019 {tabl rol 10154 ([facility] UNIT 12:00: et} UNIT [facility] 00 AM Health EDT Care) Albuterol Albute 3.0 active Albuterol eCW3 0.83 MG/ML rol 2019 {ml_a Sulfate (2.5 ([facility] Inhalant Sulfat 12:00: s_nee MG/3ML) Alia er Solution e (2.5 00 AM ded} 0.083% Health Albuterol MG/3ML EDT Care) Sulfate ) (2.5 0.083% MG/3ML) 0.083% Cholecalcif UNK 1.0 active Cholecalc sabina eCW3 simon 02064 2019 {tabl rol 10076 ([facility] UNIT 12:00: et} UNIT [facility] 00 AM Health EDT Care) Cholecalcif UNK 1.0 active Cholecalc sabina eCW3 simon 46653 2019 {tabl rol 92648 ([facility] UNIT 12:00: et} UNIT [facility] 00 AM Health EDT Care) Albuterol Albute 3.0 active Albuterol eCW3 0.83 MG/ML rol 2019 {ml_a Sulfate (2.5 ([facility] Inhalant Sulfat 12:00: s_nee MG/3ML) Alia er Solution e (2.5 00 AM ded} 0.083% Health Albuterol MG/3ML EDT Care) Sulfate ) (2.5 0.083% MG/3ML) 0.083% Cholecalcif UNK 1.0 active Cholecalc sabina eCW3 simon 58344 2020 {tabl rol 16046 ([facility] UNIT 12:00: et} UNIT [facility] 00 AM Health EDT Care) Cholecalcif UNK 1.0 active Cholecalc sabina eCW3 simon 25616 2020 {tabl rol 28611 ([facility] UNIT 12:00: et} UNIT [facility] 00 AM Health EDT Care) Bacitracin Bacitr .0 active Bacitrac in eCW3 0.5 UNT/MG acin 2019 {appl 500 UNIT/GM ( [facility] Topical 500 12:00: icati [facility] Ointment UNIT/G 00 AM on} Health Bacitracin M EDT Care) 500 UNIT/GM Cholecalcif UNK 1.0 active Cholecalc sabina eCW3 simon 19682 2020 {tabl rol 40941 ([facility] UNIT 12:00: et} UNIT [facility] 00 AM Health EDT Care) Cholecalcif UNK 1.0 active Cholecalc sabina eCW3 simon 01328 2019 {tabl rol 91766 ([facility] UNIT 12:00: et} UNIT [facility] [...] ) (2.5 0.083% MG/3ML) 0.083% Albuterol Albute 09/12/ 3.0 active Albuterol eCW3 [...] 0.083% MG/3ML) 0.083% Wheelchair Wheel[facility] 08/05/ [facility] - [facility] - 2020 [...] mg EDT Care) Wheelchair Wheelc 08/05/ active [facility] - [facility] - hair - 2020 ([facility] 12:00: [facility] 00 AM Health EDT Care) Prednisone Predni .0 active PredniSO NE eCW3 50 MG Oral SONE 2020 {tabl 50 mg ([facility] Tablet 50 mg 12:00: et} [facility] PredniSONE 00 AM Health 50 mg EDT Care) Wheelchair Wheelc 08/05/ [facility] - hair - 2020 ([facility] 12:00: [facility] 00 AM Health EDT Care) Wheelchair Wheelc 08/05/ active [facility] - eCW[facility] - hair - 2020 [...] Health 50 mg EDT Care) Flonase Flonas active Flonase eCW 3 Allergy e 2020 {spra Allergy ([facility] Relief 50 Allerg 12:00: y_in_ Relief 50 [facility] MCG/ACT y 00 AM each_ MCG/ACT Health Relief EST nostr Care) 50 il} MCG/AC T Flonase Flonas active Flonase eCW 3 Allergy e 2020 {spra Allergy ([facility] Relief 50 Allerg 12:00: y_in_ Relief 50 [facility] MCG/ACT y 00 AM each_ MCG/ACT Health Relief EST nostr Care) 50 il} MCG/AC T Flonase Flonas active Flonase eCW 3 Allergy e 2020 {spra Allergy ([facility] Relief 50 Allerg 12:00: y_in_ Relief 50 [facility] MCG/ACT y 00 AM each_ MCG/ACT Health Relief EST nostr Care) 50 il} MCG/AC T Flonase Flonas active Flonase eCW 3 Allergy e 2020 [...] Oral 00 AM _the_ Health Tablet EST [facility] Care) e_and _allo w_to_ disso lve} Ondansetron Ondans .0 suspend Ondans etron eCW3 4 MG etron 2020 {tabl ed 4 MG ([facility] Disintegrat 4 MG 12:00: et_on [facility] ing Oral 00 AM _the_ Health Tablet EST [facility]) e_and _allo w_to_ disso lve} Ondansetron Ondans .0 suspend Ondans etron eCW3 4 MG etron 2020 {tabl ed 4 MG ([facility] Disintegrat 4 MG 12:00: et_on [facility] ing Oral 00 AM _the_ Health Tablet EST [facility]) e_and _allo w_to_ disso lve} Oseltamivir Oselta [...] Oral 00 AM _the_ Health Tablet EST [facility] Care) e_and _allo w_to_ disso lve} Ondansetron Ondans .0 suspend Ondans etron eCW3 4 MG etron 2020 {tabl ed 4 MG ([facility] Disintegrat 4 MG 12:00: et_on [facility] ing Oral 00 AM _the_ Health Tablet EST [facility] Care) e_and _allo w_to_ disso lve} Oseltamivir [...] Oral 00 AM _the_ Health Tablet EST [facility] Care) e_and _allo w_to_ disso lve} Oseltamivir [...] Oral 00 AM _the_ Health Tablet EST [facility] Care) e_and _allo w_to_ disso lve} Oseltamivir [...] Oral 00 AM _the_ Health Tablet EST [facility] Care) e_and _allo w_to_ disso lve} Ondansetron Ondans .0 suspend Ondans etron eCW3 4 MG etron 2020 {tabl ed 4 MG ([facility] Disintegrat 4 MG 12:00: et_on [facility] ing Oral 00 AM _the_ Health Tablet EST [facility] Care) e_and _allo w_to_ disso lve} Ondansetron [...] Oral 00 AM _the_ Health Tablet EST [facility]) e_and _allo w_to_ disso lve} Oseltamivir Oselta [...] Oral 00 AM _the_ Health Tablet EST [facility]) e_and _allo w_to_ disso lve} Oseltamivir Oselta [...] Oral 00 AM _the_ Health Tablet EST [facility] Care) e_and _allo w_to_ disso lve} Oseltamivir [...] Oral mivir 2020 {caps ed Phosphate 75 ([facility] Capsule Phosph 12:00: ule_w MG [facility] Oseltamivir [...] Oral 00 AM _the_ Health Tablet EST [facility]) e_and _allo w_to_ disso lve} Ondansetron Ondans .0 suspend Ondans etron eCW3 4 MG etron 2019 {tabl ed 4 MG ([facility] Disintegrat 4 MG 12:00: et_on [facility] ing Oral 00 AM _the_ Health Tablet EST [facility]) e_and _allo w_to_ disso lve} Ondansetron Ondans .0 suspend Ondans etron eCW3 4 MG etron 2019 {tabl ed 4 MG ([facility] Disintegrat 4 MG 12:00: et_on [facility] ing Oral 00 AM _the_ Health Tablet EST [facility]) e_and _allo w_to_ disso lve} Ondansetron Ondans .0 suspend Ondans etron eCW3 4 MG etron 2020 {tabl ed 4 MG ([facility] Disintegrat 4 MG 12:00: et_on [facility] ing Oral 00 AM _the_ Health Tablet EST [facility]) e_and _allo w_to_ disso lve} Ondansetron Ondans .0 suspend Ondans etron eCW3 4 MG etron 2020 {tabl ed 4 MG ([facility] Disintegrat 4 MG 12:00: et_on [facility] ing Oral 00 AM _the_ Health Tablet EST [facility]) e_and _allo w_to_ disso lve} Oseltamivir Oselta [...] Oral 00 AM _the_ Health Tablet EST [facility]) e_and _allo w_to_ disso lve} Ondansetron Ondans .0 suspend Ondans etron eCW3 4 MG etron 2020 {tabl ed 4 MG ([facility] Disintegrat 4 MG 12:00: et_on [facility] ing Oral 00 AM _the_ Health Tablet EST [facility]) e_and _allo w_to_ disso lve} Ondansetron Ondans .0 suspend Ondans etron eCW3 4 MG etron 2020 {tabl ed 4 MG ([facility] Disintegrat 4 MG 12:00: et_on [facility] ing Oral 00 AM _the_ Health Tablet EST [facility]) e_and _allo w_to_ disso lve} Oseltamivir Oselta [...] Oral 00 AM _the_ Health Tablet EST [facility]) e_and _allo w_to_ disso lve} Ondansetron Ondans .0 suspend Ondans etron eCW3 4 MG etron 2020 {tabl ed 4 MG ([facility] Disintegrat 4 MG 12:00: et_on [facility] ing Oral 00 AM [facility] e_and _allo w_to_ disso lve} Clotrimazol Clotri 1.0 active Clotrim azole eCW3 e 10 MG/ML mazole 2020 {appl 1 % ([facility] Topical 1 % 12:00: icati [facility] Cream 00 AM on_to Health Clotrimazol EST _affe Care) e 1 % cted_ area} Clotrimazol Clotri .0 active Clotrim azole eCW3 [...] 14 yle 2020 [facility] 14 Day ( [place] [facility] 12:00: [place] - [place] - 14 Day 00 AM Health [place] EST Care) - FreeStyle FreeSt 05/11/ active [...] [facility] 14 yl2019 [facility] 14 Day ( [place] [facility] 12:00: [place] - AM Health [place] EST Care) - Diclofenac Diclof 05/11/ active [...] [facility] 14 2019 [facility] 14 Day ( [place] [facility] 12:00: [place] - AM Health [place] EST Care) - Diclofenac Diclof 05/11/ active Diclofen ac eCW3 Sodium 0.01 enac 2020 Sodium 1 % ([facility] MG/MG Sodium 12:00: [facility] Topical Gel 1 % 00 AM Health Diclofenac EST Care) Sodium 1 % FreeStyle FreeSt 05/11/ active FreeStyle eCW3 [facility] 14 yl 2020 [facility] 14 Day ( [place] [facility] 12:00: [place] - AM Health [place] EST Care) - Diclofenac Diclof 05/11/ active [...] [facility] 14 2019 [facility] 14 Day ( [place] [facility] 12:00: [place] - [place] - 14 Day AM Health [place] EST Care) - FreeStyle FreeSt 05/11/ active FreeStyle eCW3 [facility] 14 e 2019 [facility] 14 Day ( [place] [facility] 12:00: [place] - [place] - 14 Day AM Health [place] EST Care) - FreeStyle FreeSt 05/11/ active [...] [facility] 14 2019 [facility] 14 Day ( [place] [facility] 12:00: [place] - [place] - 14 AM Health [place] EST Care) - FreeStyle FreeSt 05/11/ active FreeStyle eCW3 [facility] 14 e 2019 [facility] 14 Day ( [place] [facility] 12:00: [place] - [place] - 14 Day AM Health [place] EST Care) - FreeStyle FreeSt 05/11/ active FreeStyle eCW3 [facility] 14 e 2019 [facility] 14 Day ( ds [place] [facility] 12:00: [place] - [place] - 14 Day 00 AM Health [place] EST Care) - FreeStyle FreeSt 05/11/ active FreeStyle eCW3 [facility] 14 2019 [facility] 14 Day ( [place] [facility] 12:00: [place] - [place] - 14 Day Health [place] EST Care) - Diclofenac Diclof 05/11/ active [...] yle 2020 [facility] 14 Day ( ds [place] [facility] 12:00: [place] - [place] - 14 Day Health [place] EST Care) - FreeStyle FreeSt 05/11/ active [...] [facility] 14 2019 [facility] 14 Day ( [place] [facility] 12:00: [place] - [place] - Health [place] EST Care) - FreeStyle FreeSt 05/11/ active FreeStyle eCW3 [facility] 14 2019 [facility] 14 Day ( [place] [facility] 12:00: [place] - [place] - Health [place] EST Care) - Diclofenac Diclof 05/11/ active Diclofen ac eCW3 Sodium 0.01 enac 2019 Sodium 1 % ([facility] MG/MG Sodium 12:00: [facility] Topical Gel 1 % Health Diclofenac EST Care) Sodium 1 % FreeStyle FreeSt 05/11/ active FreeStyle eCW3 [facility] 14 2019 [facility] 14 Day ( [place] [facility] 12:00: [place] - [place] - AM Health [place] EST Care) - FreeStyle FreeSt 05/11/ active FreeStyle eCW3 [facility] 14 2019 [facility] 14 Day ( [place] [facility] 12:00: [place] - [place] - Health [place] EST Care) - Diclofenac Diclof 05/11/ active Diclofen ac eCW3 Sodium 0.01 enac 2020 Sodium 1 % ([facility] MG/MG Sodium 12:00: [facility] Topical Gel 1 % AM Health Diclofenac EST Care) Sodium 1 % FreeStyle FreeSt 05/11/ active FreeStyle eCW3 [facility] 14 2019 [facility] 14 Day ( ds [place] [facility] 12:00: [place] - [place] - AM Health [place] EST Care) - Diclofenac Diclof 05/11/ active [...] [facility] 14 2019 [facility] 14 Day ( [place] [facility] 12:00: [place] - [place] - AM Health [place] EST Care) - Diclofenac Diclof 05/11/ active [...] [facility] 14 2019 [facility] 14 Day ( [place] [facility] 12:00: [place] - [place] - 14 AM Health [place] EST Care) - FreeStyle FreeSt 05/11/ active FreeStyle eCW3 [facility] 14 2019 [facility] 14 Day ( [place] [facility] 12:00: [place] - [place] - 14 AM Health [place] EST Care) - FreeStyle FreeSt 05/11/ active FreeStyle eCW3 [facility] 14 2019 [facility] 14 Day ( [place] [facility] 12:00: [place] - [place] - 14 AM Health [place] EST Care) - FreeStyle FreeSt 05/11/ active FreeStyle eCW3 [facility] 2019 [facility] Sensor ([facility] Sensor [facility] 12:00: System - [facility] System - Sensor Health System EST Care) - FreeStyle FreeSt 05/11/ active FreeStyle eCW3 [facility] 14 yl2019 [facility] 14 Day ( [place] [facility] 12:00: [place] - [place] - 14 AM Health [place] EST Care) - FreeStyle FreeSt 05/11/ active FreeStyle eCW3 [facility] 14 yl2019 [facility] 14 Day ( [place] [facility] 12:00: [place] - [place] - AM Health [place] EST Care) - Diclofenac Diclof 05/11/ active [...] [facility] 14 yl2019 [facility] 14 Day ( [place] [facility] 12:00: [place] - [place] - AM Health [place] EST Care) - FreeStyle FreeSt 05/11/ active FreeStyle eCW3 Claud[facility] yle 2020 [facility] Sensor ([facility] Sensor [facility] 12:00: System - [facility] - Sensor 00 AM Health System EST Care) - FreeStyle FreeSt 05/11/ active FreeStyle eCW3 Claudai yle 2020 [facility] Sensor ([place] Sensor [...] 14 yle 2020 [facility] 14 Day ( [place] [facility] 12:00: [place] - [place] - 14 Health [place] EST Care) - Diclofenac Diclof 05/11/ active [...] 14 yle 2020 [facility] 14 Day ( [place] [facility] 12:00: [place] - [place] - 14 AM Health [place] EST Care) - FreeStyle FreeSt 05/11/ active [...] 14 yle 2020 [facility] 14 Day ( [place] [facility] 12:00: [place] - [place] [facility] - 14 Day AM Health [place] EST Care) - Diclofenac Diclof 05/11/ active [...] 14 yle 2020 [facility] 14 Day ( [place] [facility] 12:00: [place] - [place] - 14 Health [place] EST Care) - FreeStyle FreeSt 05/11/ active [...] 14 yle 2020 [facility] 14 Day ( [place] [facility] 12:00: [place] - [place] - Health [place] EST Care) - Diclofenac Diclof 05/11/ active Diclofen ac eCW3 Sodium 0.01 enac 2020 Sodium 1 % ([facility] MG/MG Sodium 12:00: [facility] Topical Gel 1 % AM Health Diclofenac EST Care) Sodium 1 % FreeStyle FreeSt 05/11/ active FreeStyle eCW3 [facility] 14 yle 2019 [facility] 14 Day ( [place] [facility] 12:00: [place] - [place] - Health [place] EST Care) - Diclofenac Diclof 05/11/ active [...] 14 yle 2020 [facility] 14 Day ( [place] [facility] 12:00: [place] - Dc isela - 14 00 AM Health [place] EST Care) - FreeStyle FreeSt 05/11/ active [...] Chantix eC W3 Starting 2018 ed Starting ([facility] Chris Starti 12:00: Month Chris R iver 0.5 MG X 11 ng 00 AM 0.5 MG X 11 Health & 1 MG X 42 Month EDT & 1 MG X 42 Care) Chris 0.5 MG X 11 & 1 MG X 42 Chantix Chanti 12/29/ suspend Chantix eC W3 Starting 2018 ed Starting ([facility] Starti 12:00: Month Chris R iver 0.5 MG X 11 ng 00 AM 0.5 MG X 11 Health & 1 MG X 42 Month EDT & 1 MG X 42 Care) Chris 0.5 MG X 11 & 1 MG X 42 Chantix Chanti 12/29/ active Chantix eCW 3 Starting 2018 Starting ([facility] Chris Starti 12:00: Month Chris R iver 0.5 MG X 11 ng 00 AM 0.5 MG X 11 Health & 1 MG X 42 Month EDT & 1 MG X 42 Care) Chris 0.5 MG X 11 & 1 MG X 42 Chantix Chanti 12/29/ suspend Chantix eC W3 Starting 2018 ed Starting ([facility] Chris Starti 12:00: Month Chris R iver 0.5 MG X 11 ng 00 AM 0.5 MG X 11 Health & 1 MG X 42 Month EDT & 1 MG X 42 Care) Chris 0.5 MG X 11 & 1 MG X 42 Chantix Chanti 12/29/ suspend Chantix eC W3 Starting 2018 ed Starting ([facility] Chris Starti 12:00: Month Chris R iver 0.5 MG X 11 ng 00 AM 0.5 MG X 11 Health & 1 MG X 42 Month EDT & 1 MG X 42 Care) Chris 0.5 MG X 11 & 1 MG X 42 Chantix Chanti 12/29/ suspend Chantix eC W3 Starting 2018 ed Starting ([facility] Chris Starti 12:00: Month Chris R iver 0.5 MG X 11 ng 00 AM 0.5 MG X 11 Health & 1 MG X 42 Month EDT & 1 MG X 42 Care) Chris 0.5 MG X 11 & 1 MG X 42 Chantix Chanti 12/29/ suspend Chantix eC W3 Starting 2018 ed Starting ([facility] Chris Starti 12:00: Month Chris R iver 0.5 MG X 11 ng 00 AM 0.5 MG X 11 Health & 1 MG X 42 Month EDT & 1 MG X 42 Care) Chris 0.5 MG X 11 & 1 MG X 42 Chantix Chanti 12/29/ suspend Chantix eC W3 Starting 2018 ed Starting ([facility] Chris Starti 12:00: Month Chris R iver 0.5 MG X 11 ng 00 AM 0.5 MG X 11 Health & 1 MG X 42 Month EDT & 1 MG X 42 Care) Chris 0.5 MG X 11 & 1 MG X 42 Chantix Chanti 12/29/ suspend Chantix eC W3 Starting 2018 ed Starting ([facility] Chris Starti 12:00: Month Chris R iver 0.5 MG X 11 ng 00 AM 0.5 MG X 11 Health & 1 MG X 42 Month EDT & 1 MG X 42 Care) Chris 0.5 MG X 11 & 1 MG X 42 Chantix Chanti 12/29/ suspend Chantix eC W3 Starting 2018 ed Starting ([facility] Chris Starti 12:00: Month Chris R iver 0.5 MG X 11 ng 00 AM 0.5 MG X 11 Health & 1 MG X 42 Month EDT & 1 MG X 42 Care) Chris 0.5 MG X 11 & 1 MG X 42 Chantix Chanti 12/29/ suspend Chantix eC W3 Starting 2018 ed Starting ([facility] Chris Starti 12:00: Month Chris R iver 0.5 MG X 11 ng 00 AM 0.5 MG X 11 Health & 1 MG X 42 Month EDT & 1 MG X 42 Care) Chris 0.5 MG X 11 & 1 MG X 42 Chantix Chanti 12/29/ suspend Chantix eC W3 Starting 2018 ed Starting ([facility] Chris Starti 12:00: Month Chris R iver 0.5 MG X 11 ng 00 AM 0.5 MG X 11 Health & 1 MG X 42 Month EDT & 1 MG X 42 Care) Chris 0.5 MG X 11 & 1 MG X 42 Chantix Chanti 12/29/ suspend Chantix eC W3 Starting 2018 ed Starting ([facility] Chris Starti 12:00: Month Chris R iver 0.5 MG X 11 ng 00 AM 0.5 MG X 11 Health & 1 MG X 42 Month EDT & 1 MG X 42 Care) Chris 0.5 MG X 11 & 1 MG X 42 Chantix Chanti 12/29/ suspend Chantix eC W3 Starting 2018 ed Starting ([facility] Chris Starti 12:00: Month Chris R iver 0.5 MG X 11 ng 00 AM 0.5 MG X 11 Health & 1 MG X 42 Month EDT & 1 MG X 42 Care) Chris 0.5 MG X 11 & 1 MG X 42 Chantix Chanti 12/29/ suspend Chantix eC W3 Starting 2018 ed Starting ([facility] Chris Starti 12:00: Month Chris R iver 0.5 MG X 11 ng 00 AM 0.5 MG X 11 Health & 1 MG X 42 Month EDT & 1 MG X 42 Care) Chris 0.5 MG X 11 & 1 MG X 42 Chantix Chanti 12/29/ suspend Chantix eC W3 Starting 2018 ed Starting ([facility] Chris Starti 12:00: Month Chris R iver 0.5 MG X 11 ng 00 AM 0.5 MG X 11 Health & 1 MG X 42 Month EDT & 1 MG X 42 Care) Chris 0.5 MG X 11 & 1 MG X 42 Chantix Chanti 12/29/ suspend Chantix eC W3 Starting 2018 ed Starting ([facility] Chris Starti 12:00: Month Chris R iver 0.5 MG X 11 ng 00 AM 0.5 MG X 11 Health & 1 MG X 42 Month EDT & 1 MG X 42 Care) Chris 0.5 MG X 11 & 1 MG X 42 Chantix Chanti 12/29/ suspend Chantix eC W3 Starting 2018 ed Starting ([facility] Chris Starti 12:00: Month Chris R iver 0.5 MG X 11 ng 00 AM 0.5 MG X 11 Health & 1 MG X 42 Month EDT & 1 MG X 42 Care) Chris 0.5 MG X 11 & 1 MG X 42 Chantix Chanti 12/29/ suspend Chantix eC W3 Starting 2018 ed Starting ([facility] Chris Starti 12:00: Month Chris R iver 0.5 MG X 11 ng 00 AM 0.5 MG X 11 Health & 1 MG X 42 Month EDT & 1 MG X 42 Care) Chris 0.5 MG X 11 & 1 MG X 42 Chantix Chanti 12/29/ suspend Chantix eC W3 Starting 2018 ed Starting ([facility] Chris Starti 12:00: Month Chris R iver 0.5 MG X 11 ng 00 AM 0.5 MG X 11 Health & 1 MG X 42 Month EDT & 1 MG X 42 Care) Chris 0.5 MG X 11 & 1 MG X 42 Chantix Chanti 12/29/ suspend Chantix eC W3 Starting 2018 ed Starting ([facility] Chris Starti 12:00: Month Chris R iver 0.5 MG X 11 ng 00 AM 0.5 MG X 11 Health & 1 MG X 42 Month EDT & 1 MG X 42 Care) Chris 0.5 MG X 11 & 1 MG X 42 Chantix Chanti 12/29/ suspend Chantix eC W3 Starting 2018 ed Starting ([facility] Chris Starti 12:00: Month Chris R iver 0.5 MG X 11 ng 00 AM 0.5 MG X 11 Health & 1 MG X 42 Month EDT & 1 MG X 42 Care) Chris 0.5 MG X 11 & 1 MG X 42 Chantix Chanti 12/29/ suspend Chantix eC W3 Starting 2018 ed Starting ([facility] Chris Starti 12:00: Month Chris R iver 0.5 MG X 11 ng 00 AM 0.5 MG X 11 Health & 1 MG X 42 Month EDT & 1 MG X 42 Care) Chris 0.5 MG X 11 & 1 MG X 42 Chantix Chanti 12/29/ suspend Chantix eC W3 Starting 2018 ed Starting ([facility] Chris Starti 12:00: Month Chris R iver 0.5 MG X 11 ng 00 AM 0.5 MG X 11 Health & 1 MG X 42 Month EDT & 1 MG X 42 Care) Chris 0.5 MG X 11 & 1 MG X 42 Chantix Chanti 12/29/ suspend Chantix eC W3 Starting 2018 ed Starting ([facility] Chris Starti 12:00: Month Chris R iver 0.5 MG X 11 ng 00 AM 0.5 MG X 11 Health & 1 MG X 42 Month EDT & 1 MG X 42 Care) Chris 0.5 MG X 11 & 1 MG X 42 Chantix Chanti 12/29/ suspend Chantix eC W3 Starting 2018 ed Starting ([facility] Chris Starti 12:00: Month Chris R iver 0.5 MG X 11 ng 00 AM 0.5 MG X 11 Health & 1 MG X 42 Month EDT & 1 MG X 42 Care) Chris 0.5 MG X 11 & 1 MG X 42 Chantix Chanti 12/29/ suspend Chantix eC W3 Starting 2018 ed Starting ([facility] Chris Starti 12:00: Month Chris R iver 0.5 MG X 11 ng 00 AM 0.5 MG X 11 Health & 1 MG X 42 Month EDT & 1 MG X 42 Care) Chris 0.5 MG X 11 & 1 MG X 42 Chantix Chanti 12/29/ suspend Chantix eC W3 Starting 2018 ed Starting ([facility] Chris Starti 12:00: Month Chris R iver 0.5 MG X 11 ng 00 AM 0.5 MG X 11 Health & 1 MG X 42 Month EDT & 1 MG X 42 Care) Chris 0.5 MG X 11 & 1 MG X 42 Chantix Chanti 12/29/ suspend Chantix eC W3 Starting 2018 ed Starting ([facility] Chris Starti 12:00: Month Chris R iver 0.5 MG X 11 ng 00 AM 0.5 MG X 11 Health & 1 MG X 42 Month EDT & 1 MG X 42 Care) Chris 0.5 MG X 11 & 1 MG X 42 Chantix Chanti 12/29/ suspend Chantix eC W3 Starting 2018 ed Starting ([facility] Chris Starti 12:00: Month Chris R iver 0.5 MG X 11 ng 00 AM 0.5 MG X 11 Health & 1 MG X 42 Month EDT & 1 MG X 42 Care) Chris 0.5 MG X 11 & 1 MG X 42 Chantix Chanti 12/29/ 1.0 active Chantix eCW 3 Continuing x 2019 {tabl Continuing (H udson Month Chris 1 Contin 12:00: et} Month Chris [...] suspend Nicotine eCW 3 Nicotine ne 2018 {[facility] ed Step 3 7 ([place] 0.292 [...] suspend Nicotine eCW 3 Nicotine ne 2018 {[facility] ed Step 3 7 ([place] 0.292 MG/HR Step 3 12:00: h_to_ MG/24HR [place] Transdermal 7 00 AM skin} Health Patch MG/24H EDT Care) Nicotine R Step 3 7 MG/24HR Precision Precis 10/06/ active Precision eCW3 Scale - ion 2018 Scale - ([place] Scale 12:00: [place] - 00 AM Health EDT Care) 24 HR Nicoti 1.0 suspend Nicotine eCW 3 Nicotine ne 2018 {[facility] ed Step 3 7 ([place] 0.292 [...] suspend Nicotine eCW 3 Nicotine ne 2018 {[facility] ed Step 3 7 ([place] 0.292 [...] suspend Nicotine eCW 3 Nicotine ne 2018 {[facility] ed Step 3 7 ([place] 0.292 MG/HR Step 3 12:00: h_to_ MG/24HR [place] Transdermal 7 00 AM skin} Health Patch MG/24H EDT Care) Nicotine R Step 3 7 MG/24HR 24 HR Nicoti 1.0 suspend Nicotine eCW 3 Nicotine ne 2018 {[facility] ed Step 3 7 ([place] 0.292 [...] suspend Nicotine eCW 3 Nicotine ne 2018 {[facility] ed Step 3 7 ([place] 0.292 [...] suspend Nicotine eCW 3 Nicotine ne 2018 {[facility] ed Step 3 7 ([place] 0.292 [...] EDT ded} Care) 24 HR Nicoti .0 active Nicotine eCW3 Nicotine ne 2018 {[facility] Step 3 7 ([place] 0.292 MG/HR Step 3 12:00: h_to_ MG/24HR [place] Transdermal 7 00 AM skin} Health Patch MG/24H EDT Care) Nicotine R Step 3 7 MG/24HR Precision Precis 10/06/ active Precision eCW3 Scale - ion 2019 Scale - ([place] Scale 12:00: [place] - 00 AM Health EDT Care) 24 HR Nicoti .0 suspend Nicotine eCW 3 Nicotine ne 2018 {[facility] ed Step 3 7 ([place] 0.292 [...] suspend Nicotine eCW 3 Nicotine ne 2018 {[facility] ed Step 3 7 ([place] 0.292 MG/HR Step 3 12:00: h_to_ MG/24HR [place] Transdermal 7 00 AM skin} Health Patch MG/24H EDT Care) Nicotine R Step 3 7 MG/24HR 24 HR Nicoti 10/06/ 1.0 suspend Nicotine eCW 3 Nicotine ne 2018 {[facility] ed Step 3 7 ([place] 0.292 MG/HR Step 3 12:00: h_to_ MG/24HR [place] Transdermal 7 00 AM skin} Health Patch MG/24H EDT Care) Nicotine R Step 3 7 MG/24HR 24 HR Nicoti 1.0 suspend Nicotine eCW 3 Nicotine ne 2018 {[facility] ed Step 3 7 ([place] 0.292 MG/HR Step 3 12:00: h_to_ MG/24HR [place] Transdermal 7 00 AM skin} Health Patch MG/24H EDT Care) Nicotine R Step 3 7 MG/24HR 24 HR Nicoti 1.0 suspend Nicotine eCW 3 Nicotine ne 2018 {[facility] ed Step 3 7 ([place] 0.292 MG/HR Step 3 12:00: h_to_ MG/24HR [place] Transdermal 7 00 AM skin} Health Patch MG/24H EDT Care) Nicotine R Step 3 7 MG/24HR 24 HR Nicoti 1.0 suspend Nicotine eCW 3 Nicotine ne 2018 {[facility] ed Step 3 7 ([place] 0.292 [...] suspend Nicotine eCW 3 Nicotine ne 2018 {[facility] ed Step 3 7 ([place] 0.292 MG/HR Step 3 12:00: h_to_ MG/24HR [place] Transdermal 7 00 AM skin} Health Patch MG/24H EDT Care) Nicotine R Step 3 7 MG/24HR 24 HR Nicoti 1.0 suspend Nicotine eCW 3 Nicotine ne 2018 {[facility] ed Step 3 7 ([place] 0.292 MG/HR Step 3 12:00: h_to_ MG/24HR [place] Transdermal 7 00 AM skin} Health Patch MG/24H EDT Care) Nicotine R Step 3 7 MG/24HR 24 HR Nicoti 1.0 suspend Nicotine eCW 3 Nicotine ne 2018 {[facility] ed Step 3 7 ([place] 0.292 [...] suspend Nicotine eCW 3 Nicotine ne 2018 {[facility] ed Step 3 7 ([place] 0.292 MG/HR Step 3 12:00: h_to_ MG/24HR [place] Transdermal 7 00 AM skin} Health Patch MG/24H EDT Care) Nicotine R Step 3 7 MG/24HR 24 HR Nicoti 1.0 suspend Nicotine eCW 3 Nicotine ne 2018 {[facility] ed Step 3 7 ([place] 0.292 [...] suspend Nicotine eCW 3 Nicotine ne 2018 {[facility] ed Step 3 7 ([place] 0.292 [...] suspend Nicotine eCW 3 Nicotine ne 2018 {[facility] ed Step 3 7 ([place] 0.292 [...] suspend Nicotine eCW 3 Nicotine ne 2018 {[facility] ed Step 3 7 ([place] 0.292 [...] suspend Nicotine eCW 3 Nicotine ne 2018 {[facility] ed Step 3 7 ([place] 0.292 [...] suspend Nicotine eCW 3 Nicotine ne 2018 {[facility] ed Step 3 7 ([place] 0.292 [...] suspend Nicotine eCW 3 Nicotine ne 2018 {[facility] ed Step 3 7 ([place] 0.292 MG/HR Step 3 12:00: h_to_ MG/24HR [place] Transdermal 7 00 AM skin} Health Patch MG/24H EDT Care) Nicotine R Step 3 7 MG/24HR 24 HR Nicoti 1.0 suspend Nicotine eCW 3 Nicotine ne 2018 {[facility] ed Step 3 7 ([place] 0.292 MG/HR Step 3 12:00: h_to_ MG/24HR [place] Transdermal 7 00 AM skin} Health Patch MG/24H EDT Care) Nicotine R Step 3 7 MG/24HR 24 HR Nicoti 10/06/ 1.0 suspend Nicotine eCW 3 Nicotine ne 2018 {[facility] ed Step 3 7 ([place] 0.292 [...] suspend Nicotine eCW 3 Nicotine ne 2018 {[facility] ed Step 3 7 ([place] 0.292 MG/HR Step 3 12:00: h_to_ MG/24HR [place] Transdermal 7 00 AM skin} Health Patch MG/24H EDT Care) Nicotine R Step 3 7 MG/24HR 24 HR Nicoti 1.0 suspend Nicotine eCW 3 Nicotine ne 2018 {[facility] ed Step 3 7 ([place] 0.292 [...] Lumbar Back eCW3 Brace/Suppo Back 2019 Brace/Suppor ([place] rt Pad - Brace/ 12:00: [...] active Lancets - eCW3 s - 2019 ([place] 12:00: [place] 00 AM Health EDT Care) [...] als} Care) HCl 500 mg Metformin Metfor 1 tablet eCW2 hydrochlori min 2018 with [...] 2018 {tabl ed HCl 500 mg ( [place] de 500 MG HCl 12:00: et_wi [place] [...] 2 tablet s eCW2 Z-Chris 250 max 2017 ed on the first (H udson mg Z-Chris 12:00: day, then 1 [place] 250 mg 00 AM tablet daily [facility] EST for 4 days Care) Zithromax Zithro [...] eCW3 25 MG/ML / ine-Pr 2016 ilocaine ( dson Prilocaine ilocai 12:00: 2.5-2.5 % [place] 25 MG/ML ne 00 AM Health Topical 2.5-2. EDT Care) Cream 5 % Lidocaine-P rilocaine 2.5-2.5 % Lidocaine Lidoca 11/16/ active as direct ed eCW2 25 MG/ML / ine-Pr 2017 ([place] Prilocaine ilocai 12:00: [place] 25 MG/ML [...] Nebuli 07/08/ active Nebuliz er - eCW3 zer - 2016 ([place] 12:00: [place] 00 AM [...] 00 AM Health EDT Care) Glucose UNK 03// active Glucose Test eCW3 Test Strips 2017 Strips ([place] Compatiable 12:00: Compatiable [place] with 00 AM with Health Patients EDT Patients Care) Machine Machine Glucose UNK 03/ active Glucose Test eCW3 Test Strips 2017 Strips ([place] Compatiable 12:00: Compatiable [place] with 00 AM with Health Patients EDT Patients Care) Machine Machine Glucose UNK 03/ active Glucose Test eCW3 Test Strips 2017 Strips ([place] Compatiable 12:00: Compatiable [place] with 00 AM with Health Patients EDT Patients Care) Machine Machine Nebulizer - Nebuli 07/08/ suspend Nebuli zer - eCW3 zer - 2016 ed ([place] 12:00: [place] 00 AM Health EDT Care) Nebulizer - Nebuli 23/ suspend Nebuli zer - eCW3 zer - 2016 ed ([place] 12:00: [place] 00 AM Health EDT Care) Glucose UNK 07/08/ active Glucose Test eCW3 Test Strips 2017 Strips ([place] Compatiable 12:00: Compatiable [place] with 00 AM with Health Patients EDT Patients Care) Machine Machine Nebulizer - Nebuli 23/ suspend Nebuli zer - eCW3 zer - 2016 ed ([place] 12:00: [place] 00 AM Health EDT Care) Nebulizer - Nebuli 07/08/ active Nebuliz er - eCW3 - 2016 ([place] 12:00: [place] 00 AM Health EDT Care) Nebulizer - Nebuli 23/ suspend Nebuli zer - eCW3 zer - 2016 ed ([place] 12:00: [place] 00 AM Health EDT Care) Glucose UNK 03/23/ active Glucose Test eCW3 Test Strips 2017 Strips ([place] Compatiable 12:00: Compatiable [place] with 00 AM with Health Patients EDT Patients Care) Machine Machine Glucose UNK 03/23/ active Glucose Test eCW3 Test Strips 2017 [...] active as dire cted eCW2 Seat - hower 2016 Dx: M19.90 ([place] Seat - 12:00: [...] 06/23/ active [place]/Sh ower eCW3 Seat - hower 2016 Seat - ([place] Seat - 12:00: [...] as dire cted eCW2 Elevator - Seat 2016 Dx: M19.90 (Hu dson Elevat 12:00: [place] [...] 00 AM Health EST Care) Lac-[place]drin [place]-Hy 05/17/ 1.0 active [place] in eCW3 12 % drin 2017 {appl 12 % ([place] 12 % [...] .0 active [place] in eCW3 12 % drin 2016 {appl 12 % ([place] 12 % [...] EDT Care) HCl 25 MG Prednisone Predni 2.0 suspend PredniS ONE eCW3 20 MG Oral SONE 2014 {tabl ed 20 mg ([place] Tablet 20 mg 12:00: et_wi [place] PredniSONE 00 AM th_fo Health 20 mg EDT od_or Care) _milk } Prednisone Predni 12/09/ suspend 2 tabl et eCW2 20 MG Oral SONE 2015 ed with food or ( [place] Tablet [...] EDT od_or Care) _milk } Hydralazine HydrAL 1.0 active HydrALA ZINE eCW3 Hydrochlori AZINE 2014 {tabl HCl 25 MG ( [place] de 25 MG HCl 25 12:00: et} [place] Oral Tablet MG 00 AM Health HydrALAZINE EDT Care) HCl 25 MG Prednisone Predni 2.0 suspend PredniS ONE eCW3 [...] EDT Care) HCl 25 MG Prednisone Predni 2.0 suspend PredniS ONE eCW3 [...] Oral SONE 2014 {tabl ed 20 mg ([place] Tablet 20 mg 12:00: et_wi [place] PredniSONE [...] EDT Care) HCl 100 mg Hydrochloro Hydroc 1.0 active Hydroch lorot [...] active 1 table t eCW2 thiazide 50 hloro2014 ([place] MG Oral hiazid 12:00: [place] [...] EDT Care) thiazide 50 mg Digoxin Digoxi 1.0 active Digoxin 250 eCW3 0.25 MG n 250 2014 {tabl MCG ([place] Oral Tablet MCG 12:00: et} [place] Digoxin 250 00 AM Health MCG EDT Care) Digoxin Digoxi 05/27/ 1.0 active Digoxin 250 eCW3 0.25 MG n 250 2014 {tabl MCG ([place] Oral Tablet MCG 12:00: et} [place] Digoxin 250 00 AM Health [facility] EDT Care) 3 ML NovoLo 09/11/ active [...] et} [place] Digoxin 250 00 AM Health [facility] EDT Care) 3 ML NovoLo 09/11/ active NovoLog eCW3 Insulin, g 2014 Flexpen 100 ([facility] son Aspart, Flexpe 12:00: UNIT/ML [place] Human 100 n 100 00 AM Health UNT/ML Pen UNIT/M EDT Care) Injector L [NovoLog] NovoLog Flexpen 100 UNIT/ML Digoxin Digoxi .0 active Digoxin 250 eCW3 0.25 MG n 250 2014 {tabl MCG ([place] Oral Tablet MCG 12:00: et} [place] Digoxin 250 00 AM Health [facility] EDT Care) 3 ML NovoLo 09/11/ active NovoLog eCW3 Insulin, g 2014 Flexpen 100 ([facility] son Aspart, Flexpe 12:00: UNIT/ML [place] Human 100 n 100 00 AM Health UNT/ML Pen UNIT/M EDT Care) Injector L [NovoLog] NovoLog Flexpen 100 UNIT/ML 3 ML NovoLo 09/11/ active NovoLog eCW3 Insulin, g 2014 Flexpen 100 ([facility] son Aspart, Flexpe 12:00: UNIT/ML [place] Human 100 n 100 00 AM Health UNT/ML Pen UNIT/M EDT Care) Injector L [NovoLog] NovoLog Flexpen 100 UNIT/ML 3 ML NovoLo 09/11/ active NovoLog eCW3 Insulin, g 2014 Flexpen 100 ([facility] son Aspart, Flexpe 12:00: UNIT/ML [place] Human 100 n 100 00 AM Health UNT/ML Pen UNIT/M EDT Care) Injector L [NovoLog] NovoLog Flexpen 100 UNIT/ML Digoxin Digoxi 1.0 active Digoxin 250 eCW3 0.25 MG n 250 2014 {tabl MCG ([place] Oral Tablet MCG 12:00: et} [place] Digoxin 250 00 AM Health [facility] EDT Care) 3 ML NovoLo 09/11/ active [...] et} [place] Digoxin 250 00 AM Health [facility] EDT Care) 3 ML NovoLo 09/11/ active [...] 12:00: et} [place] Digoxin 250 00 AM [facility] EDT Care) Digoxin Digoxi 1.0 active Digoxin 250 eCW3 0.25 MG n 250 2014 {tabl MCG ([place] Oral Tablet MCG 12:00: et} [place] Digoxin 250 00 AM [facility] EDT Care) 3 ML NovoLo 09/11/ [...] 12:00: et} [place] Digoxin 250 00 AM [facility] EDT Care) Digoxin Digoxi 1.0 active Digoxin 250 eCW3 0.25 MG n 250 2014 {tabl MCG ([place] Oral Tablet MCG 12:00: et} [place] Digoxin 250 00 AM [facility] EDT Care) 3 ML NovoLo 09/11/ [...] 12:00: et} [place] Digoxin 250 00 AM [facility] EDT Care) Digoxin Digoxi 1.0 active Digoxin 250 eCW3 0.25 MG n 250 2014 {tabl MCG ([place] Oral Tablet MCG 12:00: et} [place] Digoxin 250 00 AM [facility] EDT Care) Digoxin Digoxi 1.0 active Digoxin 250 eCW3 0.25 MG n 250 2014 {tabl MCG ([place] Oral Tablet MCG 12:00: et} [place] Digoxin 250 00 AM [facility] EDT Care) 3 ML NovoLo 09/11/ [...] 12:00: et} [place] Digoxin 250 00 AM [facility] EDT Care) 3 ML NovoLo 09/11/ [...] 12:00: et} [place] Digoxin 250 00 AM [facility] EDT Care) Digoxin Digoxi 1.0 active Digoxin 250 eCW3 0.25 MG n 250 2014 {tabl MCG ([place] Oral Tablet MCG 12:00: et} [place] Digoxin 250 00 AM [facility] EDT Care) Digoxin Digoxi 1.0 active Digoxin 250 eCW3 0.25 MG n 250 2014 {tabl MCG ([place] Oral Tablet MCG 12:00: et} [place] Digoxin 250 00 AM [facility] EDT Care) 3 ML NovoLo 09/11/ [...] 12:00: et} [place] Digoxin 250 00 AM [facility] EDT Care) 3 ML NovoLo 09/11/ [...] 12:00: et} [place] Digoxin 250 00 AM [facility] EDT Care) Digoxin Digoxi 1.0 active Digoxin 250 eCW3 0.25 MG n 250 2014 {tabl MCG ([place] Oral Tablet MCG 12:00: et} [place] Digoxin 250 00 AM [facility] EDT Care) Digoxin Digoxi 1.0 active Digoxin 250 eCW3 0.25 MG n 250 2014 {tabl MCG ([place] Oral Tablet MCG 12:00: et} [place] Digoxin 250 00 AM [facility] EDT Care) Digoxin Digoxi 09/11/ 1.0 active Digoxin 250 eCW3 0.25 MG n 250 2014 {tabl MCG ([place] Oral Tablet MCG 12:00: et} [place] Digoxin 250 00 AM [facility] EDT Care) Digoxin Digoxi 09/11/ 1.0 active Digoxin 250 eCW3 0.25 MG n 250 2014 {tabl MCG ([place] Oral Tablet MCG 12:00: et} [place] Digoxin 250 00 AM [facility] EDT Care) 3 ML NovoLo 09/11/ [...] 12:00: et} [place] Digoxin 250 00 AM [facility] EDT Care) Digoxin Digoxi 1.0 active Digoxin 250 eCW3 0.25 MG n 250 2014 {tabl MCG ([place] Oral Tablet MCG 12:00: et} [place] Digoxin 250 00 AM [facility] EDT Care) Digoxin Digoxi 09/11/ 1.0 active Digoxin 250 eCW3 0.25 MG n 250 2014 {tabl MCG ([place] Oral Tablet MCG 12:00: et} [place] Digoxin 250 00 AM [facility] EDT Care) 3 ML NovoLo 09/11/ [...] 12:00: et} [place] Digoxin 250 00 AM [facility] EDT Care) 3 ML NovoLo 09/11/ [...] et} [place] Digoxin 250 00 AM Health [facility] EDT Care) Digoxin Digoxi 09/11/ 1.0 active Digoxin 250 eCW3 0.25 MG n 250 2014 {tabl MCG ([place] Oral Tablet MCG 12:00: et} [place] Digoxin 250 00 AM Health [facility] EDT Care) 3 ML NovoLo 09/11/ active [...] et} [place] Digoxin 250 00 AM Health [facility] EDT Care) 3 ML NovoLo 09/11/ active [...] 12:00: et} [place] Digoxin 250 00 AM [facility] EDT Care) 3 ML NovoLo 09/11/ active NovoLog eCW3 Insulin, g 2014 Flexpen 100 ([facility] Aspart, Flexpe 12:00: UNIT/ML [place] Human 100 n 100 00 AM Health UNT/ML Pen UNIT/M EDT Care) Injector L [NovoLog] NovoLog Flexpen 100 UNIT/ML 3 ML NovoLo 09/11/ active NovoLog eCW3 Insulin, g 2014 Flexpen 100 ([facility] Aspart, Flexpe 12:00: UNIT/ML [place] Human 100 n 100 00 AM Health UNT/ML Pen UNIT/M EDT Care) Injector L [NovoLog] NovoLog Flexpen 100 UNIT/ML Digoxin Digoxi 09/11/ 1.0 active Digoxin 250 eCW3 0.25 MG n 250 2014 {tabl MCG ([place] Oral Tablet MCG 12:00: et} [place] Digoxin 250 00 AM [facility] EDT Care) Digoxin Digoxi 09/11/ 1.0 active Digoxin 250 eCW3 0.25 MG n 250 2014 {tabl MCG ([place] Oral Tablet MCG 12:00: et} [place] Digoxin 250 00 AM [facility] EDT Care) Digoxin Digoxi 09/11/ 1.0 active Digoxin 250 eCW3 0.25 MG n 250 2014 {tabl MCG ([place] Oral Tablet MCG 12:00: et} [place] Digoxin 250 00 AM [facility] EDT Care) Digoxin Digoxi 09/11/ active 1 tablet eC W2 0.25 MG n 250 2014 ([place] Oral Tablet MCG 12:00: [place] Digoxin 250 00 AM [facility] EDT Care) 3 ML NovoLo 09/11/ active NovoLog eCW3 Insulin, g 2014 Flexpen 100 ([facility], Flexpe 12:00: UNIT/ML [place] Human 100 n 100 00 AM Health UNT/ML Pen UNIT/M EDT Care) Injector L [NovoLog] NovoLog Flexpen 100 UNIT/ML 3 ML NovoLo 09/11/ active NovoLog eCW3 Insulin, g 2014 Flexpen 100 ([facility], Flexpe 12:00: UNIT/ML [place] Human 100 [...] Tablet 40 MG 12:00: et} [place] AM Health EDT Care) Furosemide Furose .0 active Furosemi de eCW3 40 MG Oral mide 2014 {tabl 40 MG ([place] Tablet 40 MG 12:00: et} [place] AM Health EDT Care) Furosemide Furose .0 active Furosemi de eCW3 40 MG Oral mide 2014 {tabl 40 MG ([place] Tablet 40 MG 12:00: et} [place] AM Health EDT Care) Furosemide Furose .0 active Furosemi de eCW3 40 MG Oral mide 2014 {tabl 40 MG ([place] Tablet 40 MG 12:00: et} [place] AM Health EDT Care) 3 ML Lantus 08/07/ active Lantus eCW3 Insulin SoloSt 2015 SoloStar 100 ([facility] ud[place] Glargine ar 100 12:00: UNIT/ML Rive r 100 UNT/ML UNIT/M 00 AM Health Pen L EDT Care) Injector [Lantus] Lantus SoloStar 100 UNIT/ML Furosemide Furose 1.0 active Furosemi de eCW3 40 MG Oral mide 2014 {tabl 40 MG ([place] Tablet 40 MG 12:00: et} [place] AM Health EDT Care) Furosemide Furose 1.0 active Furosemi de eCW3 40 MG Oral mide 2014 {tabl 40 MG ([place] Tablet 40 MG 12:00: et} [place] AM Health EDT Care) Furosemide Furose 1.0 [...] 40 MG 12:00: et} [place] 00 AM [facility] EDT Care) Aspirin 81 Aspiri 1.0 active Aspirin 81 eCW3 MG Chewable n 81 2014 {tabl mg ([place] Tablet mg 12:00: et} [place] Aspirin 81 00 AM Health EDT Care) Furosemide Furose .0 active Furosemi de eCW3 40 MG Oral mide 2014 {tabl 40 MG ([place] Tablet 40 MG 12:00: et} [place] 00 AM [facility] EDT Care) Aspirin 81 Aspiri 1.0 [...] 40 MG 12:00: et} [place] 00 AM [facility] EDT Care) Furosemide Furose 1.0 active Furosemi de eCW3 20 MG Oral mide 2014 {tabl 20 mg ([place] Tablet 20 mg 12:00: et} [place] Furosemide 00 AM Health 20 mg EDT Care) Aspirin 81 Aspiri 08/07/ active 1 tablet eCW2 MG Chewable n 81 2014 ([place] Tablet mg 12:00: [place] Aspirin 81 00 AM [facility] EDT Care) Furosemide Furose 1.0 active Furosemi de eCW3 40 MG Oral mide 2014 {tabl 40 MG ([place] Tablet 40 MG 12:00: et} [place] [facility] EDT Care) Furosemide Furose 1.0 active Furosemi de eCW3 40 MG Oral mide 2014 {tabl 40 MG ([place] Tablet 40 MG 12:00: et} [place] [facility] EDT Care) Furosemide Furose 1.0 active Furosemi de eCW3 40 MG Oral mide 2014 {tabl 40 MG ([place] Tablet 40 MG 12:00: et} [place] [facility] EDT Care) Furosemide Furose 1.0 active Furosemi de eCW3 40 MG Oral mide 2014 {tabl 40 MG ([place] Tablet 40 MG 12:00: et} [place] [facility] EDT Care) 3 ML Lantus 08/07/ active Lantus eCW3 Insulin SoloSt 2015 SoloStar 100 ([place] Glargine ar 100 12:00: unit/ml Rive r 100 UNT/ML unit/m 00 AM [facility] EDT [facility]) Injector [Lantus] Lantus SoloStar 100 unit/ml Furosemide Furose 1.0 active Furosemi de eCW3 40 MG Oral mide 2014 {tabl 40 MG ([place] Tablet 40 MG 12:00: et} [place] [facility] EDT Care) Furosemide Furose 1.0 active Furosemi de eCW3 40 MG Oral mide 2014 {tabl 40 MG ([place] Tablet 40 MG 12:00: et} [place] [facility] EDT Care) Furosemide Furose 1.0 active Furosemi de eCW3 40 MG Oral mide 2014 {tabl 40 MG ([place] Tablet 40 MG 12:00: et} [place] 00 [facility] EDT Care) Aspirin 81 Aspiri 1.0 active [...] Tablet 40 MG 12:00: et} [place] AM Health EDT Care) Furosemide Furose 1.0 active Furosemi de eCW3 40 MG Oral mide 2014 {tabl 40 MG ([place] Tablet 40 MG 12:00: et} [place] AM [facility] EDT Care) Furosemide Furose 1.0 active Furosemi de eCW3 40 MG Oral mide 2014 {tabl 40 MG ([place] Tablet 40 MG 12:00: et} [place] AM [facility] EDT Care) Furosemide Furose 08/07/ active 1 tablet eCW2 20 MG Oral mide 2014 ([place] Tablet 20 mg 12:00: [place] Furosemide 00 AM [facility] 20 mg EDT Care) Furosemide Furose 1.0 active Furosemi de eCW3 40 MG Oral mide 2014 {tabl 40 MG ([place] Tablet 40 MG 12:00: et} [place] AM [facility] EDT Care) Furosemide Furose 1.0 active Furosemi de eCW3 40 MG Oral mide 2014 {tabl 40 MG ([place] Tablet 40 MG 12:00: et} [place] AM Health EDT Care) Furosemide Furose 1.0 active Furosemi de eCW3 40 MG Oral mide 2014 {tabl 40 MG ([place] Tablet 40 MG 12:00: et} [place] AM Health EDT Care) Furosemide Furose 1.0 active Furosemi de eCW3 40 MG Oral mide 2014 {tabl 40 MG ([place] Tablet 40 MG 12:00: et} [facility]) Furosemide Furose 1.0 active Furosemi de eCW3 40 MG Oral mide 2014 {tabl 40 MG ([place] Tablet 40 MG 12:00: et} [facility] 00 [facility] EDT [facility]) Furosemide Furose 1.0 active Furosemi de eCW3 40 MG Oral mide 2014 {tabl 40 MG ([place] Tablet 40 MG 12:00: et} [facility]) 3 ML Lantus 08/07/ active Lantus eCW3 Insulin SoloSt 2015 SoloStar 100 ([facility] Gl[place] ar 100 12:00: unit/ml [facility] 100 UNT/ML unit/m 00 AM [facility] Pen EDT Care) Injector [Lantus] Lantus SoloStar 100 unit/ml Furosemide Furose 1.0 active Furosemi de eCW3 40 MG Oral mide 2014 {tabl 40 MG ([place] Tablet 40 MG 12:00: et} [place] AM [facility] EDT Care) Furosemide Furose 1.0 active Furosemi de eCW3 40 MG Oral mide 2014 {tabl 40 MG ([place] Tablet 40 MG 12:00: et} [place] 00 AM [facility] EDT Care) Furosemide Furose 1.0 active Furosemi de eCW3 40 MG Oral mide 2014 {tabl 40 MG ([place] Tablet 40 MG 12:00: et} [place] 00 AM [facility] EDT Care) 3 ML Lantus 08/07/ active Lantus eCW3 Insulin SoloSt 2014 SoloStar 100 ([facility] Gl[place] ar 100 12:00: unit/ml [facility] r 100 UNT/ML unit/m 00 AM [facility] EDT Care) Injector [Lantus] Lantus SoloStar 100 unit/ml Furosemide Furose 1.0 active Furosemi de eCW3 40 MG Oral mide 2014 {tabl 40 MG ([place] Tablet 40 MG 12:00: et} [place] 00 AM [facility] EDT Care) 3 ML Lantus 08/07/ active as directed eC W2 Insulin SoloSt 2014 ([place] Gl[place]ine ar 100 12:00: [place] 100 UNT/ML unit/m 00 AM [facility] Pen EDT Care) Injector [Lantus] Lantus SoloStar 100 unit/ml Albuterol Ipratr 07/10/ 3.0 suspend Ipratrop ium- eCW3 0.833 MG/ML opium- 2014 {ml} ed Albuterol ( [place] / [place] 12:00: 0.5-2.5 (3) [facility] Ipratropium rol 00 AM MG/3ML [facility] [place] 0.5-2. EDT Care) 0.167 MG/ML 5 (3) Inhalant MG/3ML Solution Ipratropium -Albuterol 0.5-2.5 (3) MG/3ML Albuterol Ipratr 07/10/ 3.0 suspend Ipratrop ium- eCW3 0.833 MG/ML opium- 2014 {ml} ed Albuterol ( [place] / [place] 12:00: 0.5-2.5 (3) [facility] Ipratropium rol 00 AM MG/3ML [facility] [place] 0.5-2. EDT Care) 0.167 MG/ML 5 (3) Inhalant MG/3ML Solution Ipratropium -Albuterol 0.5-2.5 (3) MG/3ML Albuterol Ipratr 07/10/ 3.0 suspend Ipratrop ium- eCW3 0.833 MG/ML opium- 2014 {ml} ed Albuterol ( [place] / [place] 12:00: 0.5-2.5 (3) [facility] Ipratropium rol 00 AM MG/3ML [facility] [place] 0.5-2. EDT Care) 0.167 MG/ML 5 (3) Inhalant MG/3ML Solution Ipratropium -Albuterol 0.5-2.5 (3) MG/3ML Albuterol Ipratr 07/10/ 3.0 suspend Ipratrop ium- eCW3 0.833 MG/ML opium- 2014 {ml} ed Albuterol ( [place] / [place] 12:00: 0.5-2.5 (3) [facility] Ipratropium rol 00 AM MG/3ML [facility] [place] 0.5-2. EDT Care) 0.167 MG/ML 5 (3) Inhalant MG/3ML Solution Ipratropium -Albuterol 0.5-2.5 (3) MG/3ML Albuterol Ipratr 07/10/ 3.0 suspend Ipratrop ium- eCW3 0.833 MG/ML opium- 2014 {ml} ed Albuterol ( [place] / [place] 12:00: 0.5-2.5 (3) [facility] Ipratropium rol 00 AM MG/3ML [facility] [place] 0.5-2. EDT Care) 0.167 MG/ML 5 (3) Inhalant MG/3ML Solution Ipratropium -Albuterol 0.5-2.5 (3) MG/3ML Albuterol Ipratr 07/10/ suspend 3 ml eCW 2 0.833 MG/ML opium- 2014 ed ([place] / [place] 12:00: [place] Ipratropium rol 00 AM [facility] [place] 0.5-2. EDT Care) 0.167 MG/ML 5 (3) Inhalant MG/3ML Solution Ipratropium -Albuterol 0.5-2.5 (3) MG/3ML Albuterol Ipratr 07/10/ 3.0 suspend Ipratrop ium- eCW3 0.833 MG/ML opium- 2014 {ml} ed Albuterol ( [place] / [place] 12:00: 0.5-2.5 (3) [facility] Ipratropium rol 00 AM MG/3ML [facility] [place] 0.5-2. EDT Care) 0.167 MG/ML 5 (3) Inhalant MG/3ML Solution Ipratropium -Albuterol 0.5-2.5 (3) MG/3ML Albuterol Ipratr 07/10/ 3.0 suspend Ipratrop ium- eCW3 0.833 MG/ML opium- 2014 {ml} ed Albuterol ( [place] / [place] 12:00: 0.5-2.5 (3) [facility] Ipratropium rol 00 AM MG/3ML [facility] [place] 0.5-2. EDT Care) 0.167 MG/ML 5 (3) Inhalant MG/3ML Solution Ipratropium -Albuterol 0.5-2.5 (3) MG/3ML Albuterol Ipratr 07/10/ 3.0 suspend Ipratrop ium- eCW3 0.833 MG/ML opium- 2014 {ml} ed Albuterol ( [place] / [place] 12:00: 0.5-2.5 (3) [facility] Ipratropium rol 00 AM MG/3ML [facility] [place] 0.5-2. EDT Care) 0.167 MG/ML 5 (3) Inhalant MG/3ML Solution Ipratropium -Albuterol 0.5-2.5 (3) MG/3ML Albuterol Ipratr 07/10/ 3.0 suspend Ipratrop ium- eCW3 0.833 MG/ML opium- 2014 {ml} ed Albuterol ( [place] / [place] 12:00: 0.5-2.5 (3) [facility] Ipratropium rol 00 AM MG/3ML [facility] [place] 0.5-2. EDT Care) 0.167 MG/ML 5 (3) Inhalant MG/3ML Solution Ipratropium -Albuterol 0.5-2.5 (3) MG/3ML Albuterol Ipratr 07/10/ 3.0 suspend Ipratrop ium- eCW3 0.833 MG/ML opium- 2014 {ml} ed Albuterol ( [place] / [place] 12:00: 0.5-2.5 (3) [facility] Ipratropium rol 00 AM MG/3ML [facility] [place] 0.5-2. EDT Care) 0.167 MG/ML 5 (3) Inhalant MG/3ML Solution Ipratropium -Albuterol 0.5-2.5 (3) MG/3ML Albuterol Ipratr 07/10/ 3.0 suspend Ipratrop ium- eCW3 0.833 MG/ML opium- 2014 {ml} ed Albuterol ( [place] / [place] 12:00: 0.5-2.5 (3) [facility] Ipratropium rol 00 AM MG/3ML [facility] [place] 0.5-2. EDT Care) 0.167 MG/ML 5 (3) Inhalant MG/3ML Solution Ipratropium -Albuterol 0.5-2.5 (3) MG/3ML Albuterol Ipratr 07/10/ 3.0 suspend Ipratrop ium- eCW3 0.833 MG/ML opium- 2014 {ml} ed Albuterol ( [place] / [place] 12:00: 0.5-2.5 (3) [facility] Ipratropium rol 00 AM MG/3ML [facility] [place] 0.5-2. EDT Care) 0.167 MG/ML 5 (3) Inhalant MG/3ML Solution Ipratropium -Albuterol 0.5-2.5 (3) MG/3ML Albuterol Ipratr 07/10/ 3.0 suspend Ipratrop ium- eCW3 0.833 MG/ML opium- 2014 {ml} ed Albuterol ( [place] / [place] 12:00: 0.5-2.5 (3) [facility] Ipratropium rol 00 AM MG/3ML [facility] [place] 0.5-2. EDT Care) 0.167 MG/ML 5 (3) Inhalant MG/3ML Solution Ipratropium -Albuterol 0.5-2.5 (3) MG/3ML Albuterol Ipratr 07/10/ 3.0 suspend Ipratrop ium- eCW3 0.833 MG/ML opium- 2014 {ml} ed Albuterol ( [place] / [place] 12:00: 0.5-2.5 (3) [facility] Ipratropium rol 00 AM MG/3ML [facility] [place] 0.5-2. EDT Care) 0.167 MG/ML 5 (3) Inhalant MG/3ML Solution Ipratropium -Albuterol 0.5-2.5 (3) MG/3ML Albuterol Ipratr 07/10/ 3.0 suspend Ipratrop ium- eCW3 0.833 MG/ML opium- 2014 {ml} ed Albuterol ( [place] / [place] 12:00: 0.5-2.5 (3) [facility] Ipratropium rol 00 AM MG/3ML [facility] [place] 0.5-2. EDT Care) 0.167 MG/ML 5 (3) Inhalant MG/3ML Solution Ipratropium -Albuterol 0.5-2.5 (3) MG/3ML Albuterol Ipratr 07/10/ 3.0 suspend Ipratrop ium- eCW3 0.833 MG/ML opium- 2014 {ml} ed Albuterol ( [place] / [place] 12:00: 0.5-2.5 (3) [facility] Ipratropium rol 00 AM MG/3ML [facility] [place] 0.5-2. EDT Care) 0.167 MG/ML 5 (3) Inhalant MG/3ML Solution Ipratropium -Albuterol 0.5-2.5 (3) MG/3ML Albuterol Ipratr /25/ 3.0 suspend Ipratrop ium- eCW3 0.833 MG/ML opium- 2015 {ml} ed Albuterol ( [place] / [place] 12:00: 0.5-2.5 (3) [facility] Ipratropium rol 00 AM MG/3ML [facility] [place] 0.5-2. EDT Care) 0.167 MG/ML 5 (3) Inhalant MG/3ML Solution Ipratropium -Albuterol 0.5-2.5 (3) MG/3ML Albuterol Ipratr 25/ 3.0 suspend Ipratrop ium- eCW3 0.833 MG/ML opium- 2014 {ml} ed Albuterol ( [place] / [place] 12:00: 0.5-2.5 (3) [facility] Ipratropium rol 00 AM MG/3ML [facility] [place] 0.5-2. EDT Care) 0.167 MG/ML 5 (3) Inhalant MG/3ML Solution Ipratropium -Albuterol 0.5-2.5 (3) MG/3ML Albuterol Ipratr 25/ 3.0 suspend Ipratrop ium- eCW3 0.833 MG/ML opium- 2014 {ml} ed Albuterol ( [place] / [place] 12:00: 0.5-2.5 (3) [facility] Ipratropium rol 00 AM MG/3ML [facility] [place] 0.5-2. EDT Care) 0.167 MG/ML 5 (3) Inhalant MG/3ML Solution Ipratropium -Albuterol 0.5-2.5 (3) MG/3ML Albuterol Ipratr /25/ 3.0 suspend Ipratrop ium- eCW3 0.833 MG/ML opium- 2014 {ml} ed Albuterol ( [place] / [place] 12:00: 0.5-2.5 (3) [facility] Ipratropium rol 00 AM MG/3ML [facility] [place] 0.5-2. EDT Care) 0.167 MG/ML 5 (3) Inhalant MG/3ML Solution Ipratropium -Albuterol 0.5-2.5 (3) MG/3ML Albuterol Ipratr /25/ 3.0 suspend Ipratrop ium- eCW3 0.833 MG/ML opium- 2014 {ml} ed Albuterol ( [place] / [place] 12:00: 0.5-2.5 (3) [facility] Ipratropium rol 00 AM MG/3ML [facility] [place] 0.5-2. EDT Care) 0.167 MG/ML 5 (3) Inhalant MG/3ML Solution Ipratropium -Albuterol 0.5-2.5 (3) MG/3ML Albuterol Ipratr 07/10/ 3.0 suspend Ipratrop ium- eCW3 0.833 MG/ML opium- 2014 {ml} ed Albuterol ( [place] / [place] 12:00: 0.5-2.5 (3) [facility] Ipratropium rol 00 AM MG/3ML [facility] [place] 0.5-2. EDT Care) 0.167 MG/ML 5 (3) Inhalant MG/3ML Solution Ipratropium -Albuterol 0.5-2.5 (3) MG/3ML Albuterol Ipratr 07/10/ 3.0 suspend Ipratrop ium- eCW3 0.833 MG/ML opium- 2014 {ml} ed Albuterol ( [place] / [place] 12:00: 0.5-2.5 (3) [facility] Ipratropium rol 00 AM MG/3ML [facility] [place] 0.5-2. EDT Care) 0.167 MG/ML 5 (3) Inhalant MG/3ML Solution Ipratropium -Albuterol 0.5-2.5 (3) MG/3ML Albuterol Ipratr 07/10/ 3.0 suspend Ipratrop ium- eCW3 0.833 MG/ML opium- 2014 {ml} ed Albuterol ( [place] / [place] 12:00: 0.5-2.5 (3) [facility] Ipratropium rol 00 AM MG/3ML [facility] [place] 0.5-2. EDT Care) 0.167 MG/ML 5 (3) Inhalant MG/3ML Solution Ipratropium -Albuterol 0.5-2.5 (3) MG/3ML Albuterol Ipratr 03/25/ 3.0 suspend Ipratrop ium- eCW3 0.833 MG/ML opium- 2014 {ml} ed Albuterol ( [place] / [place] 12:00: 0.5-2.5 (3) [facility] Ipratropium rol 00 AM MG/3ML [facility] [place] 0.5-2. EDT Care) 0.167 MG/ML 5 (3) Inhalant MG/3ML Solution Ipratropium -Albuterol 0.5-2.5 (3) MG/3ML Albuterol Ipratr 25/ 3.0 suspend Ipratrop ium- eCW3 0.833 MG/ML opium- 2014 {ml} ed Albuterol ( [place] / [place] 12:00: 0.5-2.5 (3) [facility] Ipratropium rol 00 AM MG/3ML [facility] [place] 0.5-2. EDT Care) 0.167 MG/ML 5 (3) Inhalant MG/3ML Solution Ipratropium -Albuterol 0.5-2.5 (3) MG/3ML Albuterol Ipratr 25/ 3.0 suspend Ipratrop ium- eCW3 0.833 MG/ML opium- 2014 {ml} ed Albuterol ( [place] / [place] 12:00: 0.5-2.5 (3) [facility] Ipratropium rol 00 AM MG/3ML [facility] [place] 0.5-2. EDT Care) 0.167 MG/ML 5 (3) Inhalant MG/3ML Solution Ipratropium -Albuterol 0.5-2.5 (3) MG/3ML Albuterol Ipratr 03/25/ 3.0 suspend Ipratrop ium- eCW3 0.833 MG/ML opium- 2014 {ml} ed Albuterol ( [place] / [place] 12:00: 0.5-2.5 (3) [facility] Ipratropium rol 00 AM MG/3ML [facility] [place] 0.5-2. EDT Care) 0.167 MG/ML 5 (3) Inhalant MG/3ML Solution Ipratropium -Albuterol 0.5-2.5 (3) MG/3ML Albuterol Ipratr 03/25/ 3.0 suspend Ipratrop ium- eCW3 0.833 MG/ML opium- 2014 {ml} ed Albuterol ( [place] / [place] 12:00: 0.5-2.5 (3) [facility] Ipratropium rol 00 AM MG/3ML [facility] [place] 0.5-2. EDT Care) 0.167 MG/ML 5 (3) Inhalant MG/3ML Solution Ipratropium -Albuterol 0.5-2.5 (3) MG/3ML Albuterol Ipratr 07/10/ 3.0 suspend Ipratrop ium- eCW3 0.833 MG/ML opium- 2014 {ml} ed Albuterol ( [place] / [place] 12:00: 0.5-2.5 (3) [facility] Ipratropium rol 00 AM MG/3ML [facility] [place] 0.5-2. EDT Care) 0.167 MG/ML 5 (3) Inhalant MG/3ML Solution Ipratropium -Albuterol 0.5-2.5 (3) MG/3ML Albuterol Ipratr 25/ 3.0 suspend Ipratrop ium- eCW3 0.833 MG/ML opium- 2014 {ml} ed Albuterol ( [place] / [place] 12:00: 0.5-2.5 (3) [facility] Ipratropium rol 00 AM MG/3ML [facility] [place] 0.5-2. EDT Care) 0.167 MG/ML 5 (3) Inhalant MG/3ML Solution Ipratropium -Albuterol 0.5-2.5 (3) MG/3ML Albuterol Ipratr /25/ 3.0 suspend Ipratrop ium- eCW3 0.833 MG/ML opium- 2015 {ml} ed Albuterol ( [place] / [place] 12:00: 0.5-2.5 (3) [facility] Ipratropium rol 00 AM MG/3ML [facility] [place] 0.5-2. EDT Care) 0.167 MG/ML 5 (3) Inhalant MG/3ML Solution Ipratropium -Albuterol 0.5-2.5 (3) MG/3ML Albuterol Ipratr 03/25/ 3.0 suspend Ipratrop ium- eCW3 0.833 MG/ML opium- 2014 {ml} ed Albuterol ( [place] / [place] 12:00: 0.5-2.5 (3) [facility] Ipratropium rol 00 AM MG/3ML [facility] [place] 0.5-2. EDT Care) 0.167 MG/ML 5 (3) Inhalant MG/3ML Solution Ipratropium -Albuterol 0.5-2.5 (3) MG/3ML Albuterol Ipratr 03/25/ 3.0 suspend Ipratrop ium- eCW3 0.833 MG/ML opium- 2014 {ml} ed Albuterol ( [place] / [place] 12:00: 0.5-2.5 (3) [facility] Ipratropium rol 00 AM MG/3ML [facility] [place] 0.5-2. EDT Care) 0.167 MG/ML 5 (3) [...] AM [facility] EDT Care) Nebulizer 1 UNK 15/ suspend Nebulize r 1 eCW3 2013 ed ([place] 12:00: [facility] 00 AM [facility] EDT Care) Nebulizer 1 UNK 15/ suspend Nebulize r 1 eCW3 2014 ed ([place] 12:00: [facility] 00 AM [facility] EDT Care) Pen [place] Pen 12/06/ active Pen Needl es eCW3 31G X 6 MM Needle 2013 31G X 6 MM ( [place] [facility] 31G 12:00: [place] X 6 MM 00 AM [facility] EDT Care) Pen [place] Pen 12/06/ active Pen Needl es eCW3 31G X 6 MM Needle 2014 31G X 6 MM ( [place] [facility] 31G 12:00: [place] X 6 MM 00 AM [facility] EDT Care) Pen [place] Pen 12/06/ active Pen Needl es eCW3 31G X 6 MM Needle 2014 31G X 6 MM ( [place] [facility] 31G 12:00: [place] X 6 MM 00 AM [facility] EDT Care) Pen [place] Pen 12/06/ active Pen Needl es eCW3 31G X 6 MM Needle 2014 31G X 6 MM ( [place] [facility] 31G 12:00: [place] X 6 MM 00 AM [facility] EDT Care) Pen [place] Pen 12/06/ active Pen Needl es eCW3 31G X 6 MM Needle 2014 31G X 6 MM ( [place] [facility] 31G 12:00: [place] X 6 MM 00 AM [facility] EDT Care) Pen [place] Pen 12/06/ active Pen Needl es eCW3 31G X 6 MM Needle 2014 31G X 6 MM ( [place] [facility] 31G 12:00: [place] X 6 MM 00 AM [facility] EDT Care) Pen [place] Pen 12/06/ active Pen Needl es eCW3 31G X 6 MM Needle 2014 31G X 6 MM ( [place] [facility] 31G 12:00: [place] X 6 MM 00 AM [facility] EDT Care) Pen [place] Pen 12/06/ active Pen Needl es eCW3 31G X 6 MM Needle 2014 31G X 6 MM ( [place] [facility] 31G 12:00: [place] X 6 MM 00 AM [facility] EDT Care) Pen [place] Pen 12/06/ active Pen Needl es eCW3 31G X 6 MM Needle 2013 31G X 6 MM ( [place] [facility] 31G 12:00: [place] X 6 MM 00 AM [facility] EDT Care) Pen [place] Pen 12/06/ active Pen Needl es eCW3 31G X 6 MM Needle 2014 31G X 6 MM ( [place] [facility] 31G 12:00: [place] X 6 MM 00 AM [facility] EDT Care) Pen [place] Pen 12/06/ active Pen Needl es eCW3 31G X 6 MM Needle 2013 31G X 6 MM ( [place] [facility] 31G 12:00: [place] X 6 MM 00 AM [facility] EDT Care) Pen [place] Pen 12/06/ active Pen Needl es eCW3 31G X 6 MM Needle 2014 31G X 6 MM ( [place] [facility] 31G 12:00: [place] X 6 MM 00 AM [facility] EDT Care) Pen [place] Pen 12/06/ active Pen Needl es eCW3 31G X 6 MM Needle 2013 31G X 6 MM ( [place] [facility] 31G 12:00: [place] X 6 MM 00 AM [facility] EDT Care) Pen [place] Pen 12/06/ active Pen Needl es eCW3 31G X 6 MM Needle 2013 31G X 6 MM ( [place] [facility] 31G 12:00: [place] X 6 MM 00 AM [facility] EDT Care) Pen [place] Pen 12/06/ active as direct ed eCW2 31G X 6 MM Needle 2013 ([place] [facility] 31G 12:00: [place] X 6 MM 00 AM [facility] EDT Care) Pen [place] Pen 12/06/ active Pen Needl es eCW3 31G X 6 MM Needle 2014 31G X 6 MM ( [place] [facility] 31G 12:00: [place] X 6 MM 00 AM [facility] EDT Care) Pen [place] Pen 12/06/ active Pen Needl es eCW3 31G X 6 MM Needle 2014 31G X 6 MM ( [place] [facility] 31G 12:00: [place] X 6 MM 00 AM [facility] EDT Care) Pen [place] Pen 12/06/ active Pen Needl es eCW3 31G X 6 MM Needle 2014 31G X 6 MM ( [place] [facility] 31G 12:00: [place] X 6 MM 00 AM [facility] EDT Care) Pen [place] Pen 12/06/ active Pen Needl es eCW3 31G X 6 MM Needle 2014 31G X 6 MM ( [place] [facility] 31G 12:00: [place] X 6 MM 00 AM [facility] EDT Care) Pen [place] Pen 12/06/ active Pen Needl es eCW3 31G X 6 MM Needle 2014 31G X 6 MM ( [place] [facility] 31G 12:00: [place] X 6 MM 00 AM [facility] EDT Care) Pen [place] Pen 12/06/ active Pen Needl es eCW3 31G X 6 MM Needle 2013 31G X 6 MM ( [place] [facility] 31G 12:00: [place] X 6 MM 00 AM [facility] EDT Care) Pen [place] Pen 12/06/ active Pen Needl es eCW3 31G X 6 MM Needle 2013 31G X 6 MM ( [place] [facility] 31G 12:00: [place] X 6 MM 00 AM [facility] EDT Care) Pen [place] Pen 12/06/ active Pen Needl es eCW3 31G X 6 MM Needle 2014 31G X 6 MM ( [place] [facility] 31G 12:00: [place] X 6 MM 00 AM [facility] EDT Care) Pen [place] Pen 12/06/ active Pen Needl es eCW3 31G X 6 MM Needle 2014 31G X 6 MM ( [place] [facility] 31G 12:00: [place] X 6 MM 00 AM [facility] EDT Care) Pen [place] Pen 12/06/ active Pen Needl es eCW3 31G X 6 MM Needle 2014 31G X 6 MM ( [place] [facility] 31G 12:00: [place] X 6 MM 00 AM [facility] EDT Care) Pen [place] Pen 12/06/ active Pen Needl es eCW3 31G X 6 MM Needle 2014 31G X 6 MM ( [place] [facility] 31G 12:00: [place] X 6 MM 00 AM [facility] EDT Care) Pen [place] Pen 12/06/ active Pen Needl es eCW3 31G X 6 MM Needle 2014 31G X 6 MM ( [place] [facility] 31G 12:00: [place] X 6 MM 00 AM [facility] EDT Care) Pen [place] Pen 12/06/ active Pen Needl es eCW3 31G X 6 MM Needle 2014 31G X 6 MM ( [place] [facility] 31G 12:00: [place] X 6 MM 00 AM [facility] EDT Care) Pen [place] Pen 12/06/ active Pen Needl es eCW3 31G X 6 MM Needle 2014 31G X 6 MM ( [place] [facility] 31G 12:00: [place] X 6 MM 00 AM [facility] EDT Care) Pen [place] Pen 12/06/ active Pen Needl es eCW3 31G X 6 MM Needle 2013 31G X 6 MM ( [place] [facility] 31G 12:00: [place] X 6 MM 00 AM [facility] EDT Care) Pen [place] Pen 12/06/ active Pen Needl es eCW3 31G X 6 MM Needle 2013 31G X 6 MM ( [place] [facility] 31G 12:00: [place] X 6 MM 00 AM [facility] EDT Care) Pen [place] Pen 12/06/ active Pen Needl es eCW3 31G X 6 MM Needle 2013 31G X 6 MM ( [place] [facility] 31G 12:00: [place] X 6 MM 00 AM [facility] EDT Care) Pen [place] Pen 12/06/ active Pen Needl es eCW3 31G X 6 MM Needle 2013 31G X 6 MM ( [place] [facility] 31G 12:00: [place] X 6 MM 00 AM [facility] EDT Care) Pen [place] Pen 12/06/ active Pen Needl es eCW3 31G X 6 MM Needle 2013 31G X 6 MM ( [place] [facility] 31G 12:00: [place] X 6 MM 00 AM Health EDT Care) Pen [place] Pen 12/06/ active Pen Needl es eCW3 [...] 00 AM Health EST Care) NEBULIZER UNK 08/16/ active NEBULIZER e [...] 00 AM Health EDT Care) Glucometer UNK 05/22/ active As directe d eCW2 NIDD 2012 ([place] 12:00: [place] 00 AM [facility] EDT Care) Glucometer UNK 05/22/ active Glucometer eCW3 NIDD 2012 NIDD ([place] 12:00: [place] 00 AM [facility] EDT Care) GLUCOMETER UNK 09/06/ active GLUCOMETER eCW3 NIDD 2012 NIDD ([facility] 12:00: [place] 00 AM [facility] EDT Care) GLUCOMETER UNK 09/06/ active GLUCOMETER eCW3 NIDD 2012 NIDD ([facility] 12:00: [place] 00 AM [facility] EDT Care) gabapentin Gabape 1.0 active Gabapentin eCW3 300 MG Oral ntin {caps 300 MG ([place] Capsule 300 MG ule} [place] Gabapentin [facility] 300 MG Care) Fluticasone Flutic suspend Fluticas one eCW3 Propionate asone ed Propionate ([place] 50 MCG/ACT Propio 50 MCG/ACT R [address]) MCG/AC T Unknown complet eCW2 Medications ed ([facility]) Magnesium Magnes active Magnesium e CW3 Oxide 400 ium Oxide 400 ([place] MG Oral Oxide (241.3 Mg) [place] Tablet 400 MG Health Magnesium (241.3 Care) Oxide 400 Mg) MG (241.3 Mg) MG Fluticasone Flutic suspend Fluticas one eCW3 Propionate asone ed Propionate ([place] 50 MCG/ACT Propio 50 MCG/ACT R [address]) MCG/AC T carvedilol Carved active Carvedilol eCW3 3.125 MG ilol 3.125 MG ([facility] Oral Tablet 3.125 [place] Carvedilol [facility] 3.125 MG [facility]) Spironolact Spiron 1.0 active Spironola instructor pilot eCW3 one 25 MG olacto {tabl ne 25 MG ( dson Oral Tablet ne 25 et} [facility]) Vitamin B Vitami 1.0 active Vitamin B e CW3 Complex - n B {tabl Complex - ([facility] Comple et} [facility] Health [facility]) 60 ACTUAT Advair active Advair eCW3 Fluticasone Diskus Diskus ([facility] son propionate 500-50 500-50 [place] 0.5 mcg/do mcg/dose Health MG/ACTUAT / se Care) salmeterol 0.05 MG/ACTUAT Dry Powder Inhaler [Advair] Advair Diskus 500-50 mcg/dose 3 ML Victoz active Victoza 18 eCW3 liraglutide a 18 MG[facility]ML [facility]/ML Pen MG/3ML [facility] Injector [...] Oxide 400 Mg) MG (241.3 Mg) MG Loratadine Clarit 1.0 active Claritin 1 [...] MG ([place] Capsule 300 MG ule} [place] Gabapentin [facility] 300 MG Care) montelukast Eduardo [...] 15 MG Spironolact Spiron 1.0 active Spironola instructor pilot eCW3 one 25 MG olacto {tabl ne [...] eCW3 20 MG Oral o 20 MG ([place] Tablet MG [place] [Xarelto] Health Xarelto 20 [...] MG ([place] Capsule 300 MG ule} [place] Gabapentin [facility] 300 MG Care) rivaroxaban Xarelt active Xarelto 2 0 eCW3 20 MG Oral o 20 MG ([place] Tablet MG [place] [Xarelto] Health Xarelto 20 Care) MG carvedilol [...] 20 MG ([place] Tablet MG [place] [Xarelto] [facility] Xarelto 20 Care) MG 60 ACTUAT [...] Oral o 20 MG ([place] Tablet MG [place] [Xarelto] [facility] Xarelto 20 Care) MG Fluticasone Flutic suspend Fluticas one eCW3 Propionate asone ed Propionate (H udson 50 MCG/ACT Propio 50 MCG/ACT R [facility] 50 Care) MCG/AC T Magnesium Magnes active [...] MG ([place] on Capsule 300 MG ule} [place] Gabapentin Health 300 MG Care) Loratadine Clarit 1.0 active Claritin 1 0 eCW3 10 MG Oral in 10 {tabl mg ([place] Tablet mg et} [place] [Claritin] [facility] Claritin 10 Care) mg gabapentin Gabape 1.0 active Gabapentin eCW3 300 MG Oral ntin {caps 300 MG ([place] Capsule 300 MG ule} [place] Gabapentin Health 300 MG Care) pantoprazol Pantop 1.0 active Pantopraz ole eCW3 e 20 MG razole {tabl Sodium 20 MG ( [place] Delayed Sodium et} [place] Release 20 MG Health Oral Tablet Care) Pantoprazol e Sodium 20 MG rivaroxaban Xarelt active Xarelto 2 0 eCW3 20 MG Oral o 20 MG ([place] Tablet MG [place] [Xarelto] [facility] Xarelto 20 [facility]) MG gabapentin Gabape 1.0 active Gabapentin eCW3 300 MG Oral ntin {caps 300 MG ([place] Capsule 300 MG ule} [place] Gabapentin [facility] 300 MG Care) 3 ML Victoz active Victoza 18 eCW3 l[facility]aglut[facility] a 18 [facility] Pen MG/3ML [place] Injector [facility] [Victoza] [facility]) Victoza 18 MG/3ML Spironolact Spiron 1.0 active Spironola instructor pilot eCW3 one 25 MG olacto {tabl ne 25 MG (Hu dson Oral Tablet ne 25 et} [facility]) 200 ACTUAT Ventol 2.0 suspend Ventolin [...] 500-50 mcg/dose Spironolact Spiron 1.0 active Spironola instructor pilot eCW3 one 25 MG olacto {tabl ne 25 MG (Hu dson Oral Tablet ne 25 et} [facility]) Unknown complet eCW2 Medications ed ([facility]) pantoprazol Pantop 1.0 active Pantopraz ole eCW3 [...] 500-50 mcg/dose Spironolact Spiron 1.0 active Spironola instructor pilot eCW3 one 25 MG olacto {tabl ne [...] MG ([place] Capsule 300 MG ule} [place] Gabapentin [facility] 300 MG Care) montelukast Singul [...] Oral o 20 MG ([place] Tablet MG [place] [Xarelto] [facility] Xarelto 20 Care) MG 3 ML Victoz active Victoza 18 eCW3 liraglutide a 18 MG/3ML ([facility] n 6 MG/ML [facility] MG/3ML [facility]) Victoza 18 MG/3ML carvedilol Carved active Carvedilol eCW3 3.125 MG ilol 3.125 MG ([place] Oral Tablet 3.125 [place] Carvedilol Health 3.125 MG [facility]) [...] MG/3ML ([place] n 6 MG/ML Pen MG/3ML [place] Injector [facility] [Victoza] Care) Victoza 18 MG/3ML Morphine Morphi [...] ule} [place] Gabapentin [facility] 300 MG Care) clopidogrel Clopid [...] iver cheri Health 50 Care) MCG/AC T Vitamin B Vitami 1.0 active Vitamin B e CW3 Complex - n B {tabl Complex - ([facility] son Comple et} [facility] x - Health Care) rivaroxaban Xarelt active Xarelto 2 0 eCW3 20 MG Oral o 20 MG ([place] Tablet MG [place] [Xarelto] Health Xarelto 20 Care) MG Morphine Morphi 1.0 suspend Morphine eC W3 Sulfate 15 ne {tabl ed Sulfate ER (H udson MG Extended Sulfat et} 15 MG [place] Release e ER Health Oral Tablet 15 MG Care) Morphine Sulfate ER 15 MG Spironolact Spiron 1.0 active Spironola instructor pilot eCW3 one 25 MG olacto {tabl ne [...] Complex - n B {tabl Complex - ([facility] son Comple et} [facility]) carvedilol Carved active Carvedilol eCW3 3.125 MG ilol 3.125 MG ([place] Oral Tablet 3.125 [place] Carvedilol MG Health 3.125 MG Care) clopidogrel Clopid active Clopidogr el eCW3 75 MG Oral ogrel Bisulfate 75 ([place] Tablet Bisulf MG [place] Clopidogrel ate 75 Health Bisulfate MG Care) 75 MG 60 ACTUAT Advair active Advair eCW3 Fluticasone Diskus Diskus ([facility] son propionate 500-50 500-50 [place] 0.5 mcg/do mcg/dose Health MG/ACTUAT / se Care) salmeterol 0.05 MG/ACTUAT Dry Powder Inhaler [Advair] Advair Diskus 500-50 mcg/dose Vitamin B Vitami 1.0 active Vitamin B e CW3 Complex - n B {tabl Complex - ([facility] Comple et} [facility]) rivaroxaban Xarelt active Xarelto 2 0 eCW3 20 MG Oral o 20 MG ([place] Tablet MG [place] [Xarelto] Health Xarelto 20 Care) MG carvedilol Carved active Carvedilol eCW3 3.125 MG ilol 3.125 MG ([place] Oral Tablet 3.125 [place] Carvedilol MG Health 3.125 MG Care) 60 ACTUAT Advair active Advair eCW3 Fluticasone Diskus Diskus ([facility] son propionate 500-50 500-50 [place] 0.5 mcg/do mcg/dose Health MG/ACTUAT / se Care) salmeterol 0.05 MG/ACTUAT Dry Powder Inhaler [Advair] Advair Diskus 500-50 mcg/dose rivaroxaban Xarelt active Xarelto 2 0 eCW3 20 MG Oral o 20 MG ([place] Tablet MG [place] [Xarelto] Health Xarelto 20 Care) MG Vitamin B Vitami 1.0 active Vitamin B e CW3 Complex - n B {tabl Complex - ([facility] son Comple et} [facility]) Vitamin B Vitami 1.0 active Vitamin B e CW3 Complex - n B {tabl Complex - ([facility] son Comple et} [facility]) Morphine Morphi 1.0 suspend Morphine eC W3 Sulfate 15 ne {tabl ed Sulfate ER (H udson MG Extended Sulfat et} 15 MG [place] Release e ER Health Oral Tablet 15 MG Care) Morphine Sulfate ER 15 MG gabapentin Gabape 1.0 active Gabapentin eCW3 300 MG Oral ntin {caps 300 MG ([place] on Capsule 300 MG ule} [facility] Gabapentin Health 300 MG Care) clopidogrel Clopid active Clopidogr el eCW3 75 MG Oral ogrel Bisulfate 75 ([place] Tablet Bisulf MG [place] Clopidogrel ate 75 Health Bisulfate MG Care) 75 MG 3 ML Victoz active Victoza 18 eCW3 liraglutide a 18 MG/3ML ([place] n 6 MG/ML Pen MG/3ML [facility] Injector Health [Victoza] Care) Victoza 18 MG/3ML Magnesium Magnes active Magnesium e CW3 Oxide 400 ium Oxide 400 ([place]uds on MG Oral Oxide (241.3 Mg) [place] Tablet 400 MG Health Magnesium (241.3 Care) Oxide 400 Mg) MG (241.3 Mg) MG rivaroxaban Xarelt active Xarelto 2 0 eCW3 20 MG Oral o 20 MG ([place] Tablet MG [place] [Xarelto] [facility] Xarelto 20 Care) MG Morphine Morphi 1.0 suspend Morphine eC W3 Sulfate 15 ne {tabl ed Sulfate ER (H udson MG Extended Sulfat et} 15 MG [place] Release e ER Health Oral Tablet 15 MG Care) Morphine Sulfate ER 15 MG Spironolact Spiron 1.0 active Spironola instructor pilot eCW3 one 25 MG olacto {tabl ne 25 MG (Hu dson Oral Tablet ne 25 et} [facility]) carvedilol Carved active Carvedilol eCW3 3.125 [...] MG/3ML ([place] n 6 MG/ML Pen MG/3ML [place] Injector Health [Victoza] Care) Victoza 18 MG/3ML Vitamin B Vitami 1.0 active Vitamin B e CW3 Complex - n B {tabl Complex - ([facility] son Comple et} [facility] x - Health Care) Magnesium Magnes active Magnesium e CW3 Oxide 400 ium Oxide 400 ([place]uds on MG Oral Oxide (241.3 Mg) [place] Tablet 400 MG Health Magnesium (241.3 Care) Oxide 400 Mg) MG (241.3 Mg) MG clopidogrel Clopid active Clopidogr el eCW3 75 MG Oral ogrel Bisulfate 75 ([place] Tablet Bisulf MG [place] Clopidogrel ate 75 Health Bisulfate MG [facility]) 75 MG Loratadine Clarit 1.0 active Claritin 1 0 eCW3 10 MG Oral in 10 {tabl mg ([place] Tablet mg et} [place] [Claritin] [facility] Claritin 10 [facility]) mg Spironolact Spiron 1.0 active Spironola instructor pilot eCW3 one 25 MG olacto {tabl ne 25 MG (Hu dson Oral Tablet ne 25 et} [facility] Health [facility]) Fluticasone Flutic suspend 2 sprays eCW2 Propionate asone ed ([place] 50 MCG/ACT Propio [place] [address]) MCG/AC T gabapentin Gabape 1.0 active Gabapentin eCW3 300 MG Oral ntin {caps 300 MG ([place] on Capsule 300 MG ule} [facility] Gabapentin Health 300 MG [facility]) montelukast Eduarod 1.[address] eCW3 10 MG Oral ukast {tabl Sodium 10 mg ([place] Tablet Sodium et} [facility] Montelukast 10 mg [facility] Sodium 10 [facility]) mg Fluticasone Flutic suspend Fluticas one eCW3 Propionate asone ed Propionate ([place] ud[place] 50 MCG/ACT Propio 50 MCG/ACT R [address]) MCG/AC T 200 ACTUAT Ventol 2.0 [...] 75 Health Bisulfate MG Care) 75 MG carvedilol Carved active Carvedilol eCW3 3.125 MG ilol 3.125 MG ([place] Oral Tablet 3.125 [facility] Carvedilol MG Health 3.125 MG Care) Vitamin B Vitami 1.0 active Vitamin B e CW3 Complex - n B {tabl Complex - ([facility] son Comple et} [facility] x - Health Care) 3 ML Victoz active Victoza 18 [...] 15 MG Spironolact Spiron 1.0 active Spironola instructor pilot eCW3 one 25 MG olacto {tabl ne 25 MG (Hu dson Oral Tablet ne 25 et} [facility]) Vitamin B Vitami 1.0 active Vitamin B e CW3 Complex - n B {tabl Complex - ([place] son Comple et} [facility] x - Health Care) Morphine Morphi suspend [...] {tabl Complex - ([facility] son Comple et} [facility]) Spironolact Spiron 1.0 active Spironola instructor pilot eCW3 one 25 MG olacto {tabl ne [...] Complex - n B {tabl Complex - ([facility] son Comple et} [facility]) montelukast Singul 1.0 active Singulair 10 eCW3 10 MG Oral air 10 {tabl mg ([place] n Tablet mg et_in [place] [Singulair] _the_ [facility] Singulair eveni Care) 10 mg ng} 200 [...] MG ([place] on Capsule 300 MG ule} [place] Gabapentin Health 300 MG Care) Losartan Losart [...] MG Care) Unknown complet eCW2 Medications ed ([facility]) clopidogrel Clopid active Clopidogr el eCW3 [...] MG/3ML ([place] n 6 MG/ML Pen MG/3ML [facility] In[facility] Health [Victoza] Care) Victoza 18 MG/3ML [...] 15 MG Spironolact Spiron 1.0 active Spironola instructor pilot eCW3 one 25 MG olacto {tabl ne [...] Tablet Care) Pantoprazol e Sodium 20 MG Spironolact Spiron 1.0 active Spironola instructor pilot eCW3 one 25 MG olacto {tabl ne 25 MG (Hu dson Oral Tablet ne 25 et} [facility] Care) Fluticasone Flutic suspend Fluticas one eCW3 Propionate asone ed Propionate ([facility] ud[place] 50 MCG/ACT Propio 50 MCG[facility] MCG/AC T Losartan Losart active Losartan eCW 3 Potassium an Potassium 50 (H udson 50 MG Oral Potass MG [place] Tablet ium 50 Health MG Care) Loratadine Clarit 1.0 active Claritin 1 0 eCW3 10 MG Oral in 10 {tabl mg ([place] Tablet mg et} [facility] [[facility]] [facility] Claritin 10 Care) mg clopidogrel Clopid active Clopidogr el eCW3 75 MG Oral ogrel Bisulfate 75 ([place] Tablet Bisulf MG [place] Clopidogrel ate 75 Health Bisulfate MG Care) 75 MG Loratadine Clarit 1.0 active Claritin 1 0 eCW3 10 MG Oral in 10 {tabl mg ([place] Tablet mg et} [place] [[facility]] [facility] Claritin 10 [facility]) mg [...] udson 50 MCG/ACT Propio 50 [facility]CG[facility]) MCG/AC T pantoprazol Pantop 1.0 active Pantopraz ole eCW3 e 20 MG razole {tabl Sodium 20 MG ( [place] Delayed Sodium et} [facility] Release 20 MG Health Oral Tablet Care) Pantoprazol e Sodium 20 MG gabapentin Gabape 1.0 active Gabapentin eCW3 300 MG Oral ntin {caps 300 MG ([place] Capsule 300 MG ule} [place] Gabapentin Health 300 MG Care) montelukast Eduardo 1.[address] [...] MG Care) Spironolact Spiron 1.0 active Spironola instructor pilot eCW3 one 25 MG olacto {tabl ne [...] Health Care) Spironolact Spiron 1.0 active Spironola instructor pilot eCW3 one 25 MG olacto {tabl ne [...] MG ([place] Capsule 300 MG ule} [facility] Gabapentin Health 300 MG Care) clopidogrel Clopid [...] MG/3ML ([place] n 6 MG/ML Pen MG/3ML [facility] Injector Health [Victoza] Care) Victoza 18 MG/3ML Unknown complet eCW2 Medications ed ([facility]) carvedilol Carved active Carvedilol eCW3 3.125 MG ilol 3.125 MG (Yeaddiss Oral Tablet 3.125 [facility] Carvedilol MG Health [...] Carvedilol eCW3 3.125 MG ilol 3.125 MG (Yeaddiss Oral Tablet 3.125 [place] Carvedilol MG Health 3.125 MG Care) rivaroxaban Xarelt active Xarelto 2 0 eCW3 20 MG Oral o 20 MG ([place] Tablet MG [place] [Xarelto] Health Xarelto 20 Care) MG 3 ML Victoz active Victoza 18 eCW3 liraglutide a 18 MG/3ML ([place] 6 MG/ML Pen MG/3ML [facility] In[facility] [Victoza] Care) Victoza 18 MG/3ML 60 ACTUAT Advair active Advair eCW3 Fluticasone Diskus Diskus ([facility] son propionate 500-50 500-50 [place] 0.5 mcg/do [...] Sodium 10 mg ([place] Tablet Sodium et} [facility] Montelukast 10 mg Health Sodium 10 Care) mg carvedilol Carved active Carvedilol eCW3 3.125 MG ilol 3.125 MG ([place] Oral Tablet 3.125 [place] Carvedilol MG Health 3.125 MG Care) Spironolact Spiron 1.0 active Spironola instructor pilot eCW3 one 25 MG olacto {tabl ne 25 MG (Hu dson Oral Tablet ne 25 et} [facility] Health Care) 60 ACTUAT Advair active Advair eCW3 Fluticasone Diskus Diskus ([facility] son propionate 500-50 500-50 [place] 0.5 mcg/do [...] MG ([place] Capsule 300 MG ule} [place] Gabapentin [facility] 300 MG Care) rivaroxaban Xarelt active Xarelto 2 0 eCW3 20 MG Oral o 20 MG ([place] Tablet MG [place] [Xarelto] [facility] Xarelto 20 Care) MG 200 ACTUAT [...] Powder Inhaler [Advair] Advair Diskus 500-50 mcg/dose Magnesium Magnes active Magnesium e CW3 Oxide [...] ([place] Comple [facility] x - Health Care) Vitamin B [...] et} [facility] x - Health Care) montelukast Eduardo 1.0 active Monteluka [...] 15 MG Spironolact Spiron 1.0 active Spironola instructor pilot eCW3 one 25 MG olacto {tabl ne 25 MG (Hu dson Oral Tablet ne 25 et} [facility]) Fluticasone Flutic suspend Fluticas one eCW3 Propionate asone ed Propionate (H ud[place] 50 MCG/ACT Propio 50 MCG/ACT R iver cheri Health 50 Care) MCG/AC T pantoprazol [...] [place] [Claritin] Health Claritin 10 Care) mg rivaroxaban Xarelt active Xarelto 2 0 eCW3 20 MG Oral o 20 MG ([place] Tablet MG [facility] [Xarelto] Health Xarelto 20 Care) MG 60 ACTUAT Advair [...] [place] Carvedilol MG Health 3.125 MG Care) 200 ACTUAT Ventol 2.0 [...] [place] Carvedilol MG Health 3.125 MG Care) clopidogrel Clopid active Clopidogr el eCW3 75 MG Oral ogrel Bisulfate 75 ([place] Tablet Bisulf MG [place] Clopidogrel ate 75 Health Bisulfate MG Care) 75 MG carvedilol Carved active Carvedilol eCW3 [...] MG/3ML ([place] n 6 MG/ML Pen MG/3ML [place] Injector Health [Victoza] Care) Victoza 18 MG/3ML Spironolact Spiron 1.0 active Spironola instructor pilot eCW3 one 25 MG olacto {tabl ne 25 MG (Hu dson Oral Tablet ne 25 et} [facility] Care) Losartan Losart active Losartan eCW 3 Potassium an Potassium 50 (H udson 50 MG Oral Potass MG [facility] Tablet ium 50 Health Care) pantoprazol Pantop 1.0 active Pantopraz ole eCW3 e 20 MG razole {tabl Sodium 20 MG ( [place] Delayed Sodium et} [place] Release 20 MG [...] ([place] Oral Tablet 3.125 [place] Carvedilol MG [facility] 3.125 MG Care) Fluticasone Flutic suspend Fluticas one eCW3 Propionate asone ed Propionate (H udson 50 MCG/ACT Propio 50 MCG/ACT R iver cheri Health 50 Care) MCG/AC T carvedilol Carved active Carvedilol eCW3 3.125 MG ilol 3.125 MG ([place] Oral Tablet 3.125 [facility] Carvedilol MG Health 3.125 MG Care) carvedilol Carved active Carvedilol eCW3 3.125 MG ilol 3.125 MG ([place] Oral Tablet 3.125 [place] Carvedilol MG [facility] 3.125 MG Care) gabapentin Gabape 1.0 active Gabapentin eCW3 300 MG Oral ntin {caps 300 MG ([place] Capsule 300 MG ule} [place] Gabapentin Health 300 MG Care) Spironolact Spiron 1.0 active Spironola instructor pilot eCW3 one 25 MG olacto {tabl ne 25 MG (Hu dson Oral Tablet ne 25 et} [facility]) Omeprazole Omepra active Omeprazole eCW3 20 MG zole 20 MG ([place] Delayed 20 MG [facility] Release Health Oral Care) Capsule Loratadine Clarit 1.0 active Claritin 1 0 eCW3 10 MG Oral in 10 {tabl mg ([place] Tablet mg et} [place] [Claritin] Health Claritin 10 Care) mg 200 [...] MG ([place] Capsule 300 MG ule} [place] Gabapentin Health 300 MG Care) 3 ML Victoz active Victoza 18 eCW3 liraglutide a 18 MG/3ML ([place] 6 MG/ML Pen MG/3ML [place] Injector Health [Victoza] Care) Victoza 18 MG/3ML [...] [place] [Claritin] Health Claritin 10 Care) mg 200 [...] Amlodipine MG Besy-Benaze pril HCl 10-40 MG montelukast Eduardo 1.[address] [...] 20 MG Unknown complet eCW2 Medications ed ([facility]) Spironolact Spiron 1.0 active Spironola instructor pilot eCW3 one 25 MG olacto {tabl ne 25 MG (Hu dson Oral Tablet ne 25 et} [facility]) Loratadine Clarit 1.0 active Claritin 1 0 eCW3 10 MG Oral in 10 {tabl mg ([place] Tablet mg et} [place] [[facility]] [facility] Claritin 10 [facility]) mg 200 ACTUAT Ventol 2.0 suspend Ventolin HFA eCW3 Albuterol in HFA {puff ed 108 (90 (Hud son 0.09 108 s} Base) [facility] MG/ACTUAT (90 MCG/ACT Health Metered [facility]) Care) Dose MCG/AC Inhaler T [Ventolin] Ventolin HFA 108 (90 Base) MCG/ACT Spironolact Spiron 1.0 active Spironola instructor pilot eCW3 one 25 MG olacto {tabl ne 25 MG (Hu dson Oral Tablet ne 25 et} [facility]) Vitamin B Vitami 1.0 active Vitamin B e CW3 Complex - n B {tabl Complex - ([place] son Comple et} [place] x - [facility]) Loratadine Clarit 1.0 active Claritin 1 0 eCW3 10 MG Oral in 10 {tabl mg ([place] Tablet mg et} [place] [Claritin] [facility] Claritin 10 [facility]) mg pantoprazol Pantop 1.0 active Pantopraz ole eCW3 e 20 MG razole {tabl Sodium 20 MG ( [place] Delayed Sodium et} [facility] Release 20 MG Health Oral Tablet Care) Pantoprazol e Sodium 20 MG Loratadine Clarit 1.0 active Claritin 1 0 eCW3 10 MG Oral in 10 {tabl mg ([place] Tablet mg et} [place] [Claritin] [facility] Claritin 10 [facility]) mg 200 ACTUAT Ventol 2.0 suspend Ventolin HFA eCW3 Albuterol in HFA {puff ed 108 (90 (Hud son 0.09 108 s} Base) [place] MG/ACTUAT (90 MCG/ACT Health Metered [facility]) Care) Dose MCG/AC Inhaler T [Ventolin] Ventolin HFA 108 (90 Base) MCG/ACT rivaroxaban Xarelt active Xarelto 2 0 eCW3 20 MG Oral o 20 MG ([place] Tablet MG [place] [Xarelto] [facility] Xarelto 20 [facility]) MG Claritin 10 Clarit 1.0 active Claritin 10 eCW3 mg in 10 {tabl mg ([place] mg et} [facility]) clopidogrel Clopid active Clopidogr el eCW3 75 MG Oral ogrel Bisulfate 75 ([place] Tablet Bisulf MG [place] Clopidogrel ate 75 Health Bisulfate MG Care) 75 MG montelukast Singul suspend 1 tablet in eCW2 10 MG Oral air 10 ed the evening ([place] Tablet mg [place] [Singulair] Health Singulair Care) 10 mg Vitamin B Vitami 1.0 active Vitamin B e CW3 Complex - n B {tabl Complex - ([place] son Comple et} [facility] x - Health Care) clopidogrel Clopid active Clopidogr el eCW3 [...] MG ([place] on Capsule 300 MG ule} [place] Gabapentin Health 300 MG Care) clopidogrel Clopid [...] MG/3ML ([place] n 6 MG/ML Pen MG/3ML [place] Injector Health [Victoza] [facility]) Victoza 18 MG/3ML Loratadine Clarit 1.0 active Claritin 1 0 eCW3 10 MG Oral in 10 {tabl mg ([place] Tablet mg et} [place] [Claritin] Health Claritin 10 Care) mg Morphine Morphi [...] {tabl Complex - ([place] son Comple et} [facility]) clopidogrel Clopid active Clopidogr el eCW3 75 MG Oral ogrel Bisulfate 75 ([place] Tablet Bisulf MG [place] Clopidogrel ate 75 Health Bisulfate MG Care) 75 MG gabapentin Gabape 1.0 active Gabapentin eCW3 300 MG Oral ntin {caps 300 MG ([place] on Capsule 300 MG ule} [place] Gabapentin [facility] 300 MG [facility]) Morphine Morphi 1.0 suspend Morphine eC W3 Sulfate 15 ne {tabl ed Sulfate ER (H udson MG Extended Sulfat et} 15 MG [place] Release e ER Health Oral Tablet 15 MG [facility]) Morphine Sulfate ER 15 MG montelukast Eduardo 1.[address] eCW3 10 MG Oral ukast {tabl Sodium 10 mg ([place] Tablet Sodium et} [place] Montelukast 10 mg Health Sodium 10 [facility]) mg 3 ML Victoz active Victoza 18 eCW3 liraglutide a 18 MG/3ML ([place] n 6 MG/ML Pen MG/3ML [place] Injector Health [Victoza] [facility]) Victoza 18 MG/3ML rivaroxaban Xarelt active Xarelto 2 0 eCW3 20 MG Oral o 20 MG ([place] Tablet MG [place] [Xarelto] [facility] Xarelto 20 [facility]) MG Fluticasone Flutic suspend Fluticas one eCW3 Propionate asone ed Propionate (H udson 50 MCG/ACT Propio 50 MCG/ACT R [facility] 50 Care) MCG/AC T 200 ACTUAT Ventol [...] {tabl Complex - ([place] son Comple et} [facility]) Fluticasone Flutic suspend Fluticas one eCW3 Propionate asone ed Propionate (H udson 50 MCG/ACT Propio 50 MCG/ACT [facility] 50 Care) MCG/AC T rivaroxaban Xarelt active Xarelto 2 0 eCW3 20 MG Oral o 20 MG ([place] Tablet MG [facility] [Xarelto] Health Xarelto 20 Care) MG Losartan Losart active Losartan eCW 3 Potassium an Potassium 50 (H udson 50 MG Oral Potass MG [place] Tablet ium 50 Health MG Care) Spironolact Spiron active 1 tablet eCW2 one 25 MG olacto ([place] Oral Tablet ne 25 [facility] MG [facility] Care) Magnesium Magnes active Magnesium e [...] iver cheri Health 50 Care) MCG/AC T Fluticasone Flutic suspend Fluticas one eCW3 Propionate asone ed Propionate (H udson 50 MCG/ACT Propio 50 MCG/ACT R [place] [address] Care) MCG/AC T Loratadine Clarit 1.0 active Claritin 1 0 eCW3 10 MG Oral in 10 {tabl mg ([place] Tablet mg et} [place] [[facility]] [facility] 10 [facility]) mg Spironolact Spiron 1.0 active Spironola instructor pilot eCW3 one 25 MG olacto {tabl ne 25 MG (Hu dson Oral Tablet ne 25 et} [facility] Care) gabapentin Gabape 1.0 active Gabapentin eCW3 300 MG Oral ntin {caps 300 MG ([place] on Capsule 300 MG ule} [place] Gabapentin [facility] 300 MG [facility]) 200 ACTUAT Ventol [...] 10 {tabl mg ([place] Tablet mg et} [place] [[facility]] [facility] 10 [facility]) mg Fluticasone Flutic suspend Fluticas one eCW3 Propionate asone ed Propionate (H udson 50 MCG/ACT Propio 50 MCG/ACT R [address]) MCG/AC T pantoprazol Pantop 1.0 active Pantopraz ole eCW3 e 20 MG razole {tabl Sodium 20 MG ( [place] Delayed Sodium et} [place] Release 20 MG Health Oral Tablet Care) Pantoprazol e Sodium 20 MG Loratadine Clarit 1.0 active Claritin 1 0 eCW3 10 MG Oral in 10 {tabl mg ([place] Tablet mg et} [facility] 10 [facility]) mg Magnesium Magnes active Magnesium e CW3 [...] [place] [Xarelto] Health Xarelto 20 Care) MG 60 ACTUAT Advair [...] MCG/AC T Spironolact Spiron 1.0 active Spironola instructor pilot eCW3 one 25 MG olacto {tabl ne [...] MG ([place] on Capsule 300 MG ule} [place] Gabapentin Health 300 MG Care) 200 ACTUAT [...] [place] Tablet ium 50 Health MG Care) montelukast Singul 1.0 suspend Singulai r [...] 500-50 mcg/dose Spironolact Spiron 1.0 active Spironola instructor pilot eCW3 one 25 MG olacto {tabl ne 25 MG (Hu dson Oral Tablet ne 25 et} [facility] Care) carvedilol Carved active Carvedilol eCW3 3.125 MG ilol 3.125 MG ([place] Oral Tablet 3.125 [facility] Carvedilol MG Health 3.125 MG Care) carvedilol Carved active Carvedilol eCW3 3.125 MG ilol 3.125 MG ([place] Oral Tablet 3.125 [place] Carvedilol MG [facility] 3.125 MG Care) clopidogrel Clopid active [...] 500-50 mcg/dose Spironolact Spiron 1.0 active Spironola instructor pilot eCW3 one 25 MG olacto {tabl ne 25 MG (Hu dson Oral Tablet ne 25 et} [facility] Care) montelukast Eduardo 1.[address] eCW3 10 MG Oral ukast {tabl Sodium 10 mg ([place] Tablet Sodium et} [facility] Montelukast 10 mg Health Sodium 10 Care) mg Losartan Losart active Losartan eCW 3 Potassium an Potassium 50 (H udson 50 MG Oral Potass MG [facility] Tablet ium 50 Health Care) Fluticasone Flutic suspend Fluticas one eCW3 Propionate asone ed Propionate (H udson 50 MCG/ACT Propio 50 MCG/ACT R [address]) MCG/AC T Fluticasone Flutic suspend Fluticas one eCW3 Propionate asone ed Propionate (H udson 50 MCG/ACT Propio 50 MCG/ACT R [address]) MCG/AC T Omeprazole Omepra active 1 cap eCW2 20 MG zole ([place] Delayed 20 MG [facility] Release Health Oral Care) Capsule Morphine Morphi 1.0 suspend Morphine eC W3 [...] 15 MG Spironolact Spiron 1.0 active Spironola instructor pilot eCW3 one 25 MG olacto {tabl ne 25 MG (Hu dson Oral Tablet ne 25 et} [facility] Care) rivaroxaban Xarelt active Xarelto 2 0 eCW3 20 MG Oral o 20 MG ([place] Tablet MG [facility] [Xarelto] Health Xarelto 20 Care) MG Fluticasone Flutic suspend Fluticas one eCW3 Propionate asone ed Propionate (H udson 50 MCG/ACT Propio 50 MCG/ACT R [place] [address] Care) MCG/AC T carvedilol Carved active Carvedilol [...] [place] [Claritin] Health Claritin 10 Care) mg Morphine Morphi [...] Sodium 10 mg ([place] Tablet Sodium et} [place] Montelukast 10 mg Health Sodium 10 Care) mg gabapentin Gabape 1.0 active Gabapentin eCW3 300 MG Oral ntin {caps 300 MG ([place] on Capsule 300 MG ule} [facility] Gabapentin Health 300 MG Care) Fluticasone Flutic suspend Fluticas one eCW3 Propionate asone ed Propionate (H udson 50 MCG/ACT Propio 50 MCG/ACT R [address]) MCG/AC T Spironolact Spiron 1.0 active Spironola instructor pilot eCW3 one 25 MG olacto {tabl ne 25 MG (Hu dson Oral Tablet ne 25 et} [facility]) carvedilol Carved active Carvedilol eCW3 3.125 MG ilol 3.125 MG ([place] Oral Tablet 3.125 [facility] Carvedilol [facility] 3.125 MG [facility]) gabapentin Gabape 1.0 active Gabapentin eCW3 300 MG Oral ntin {caps 300 MG ([place] on Capsule 300 MG ule} [place] Gabapentin [facility] 300 MG [facility]) Spironolact Spiron 1.0 active Spironola instructor pilot eCW3 one 25 MG olacto {tabl ne 25 MG (Hu dson Oral Tablet ne 25 et} [facility]) rivaroxaban Xarelt active Xarelto 2 0 eCW3 20 MG Oral o 20 MG ([place] Tablet MG [facility] [Xarelto] [facility] Xarelto 20 [facility]) MG Fluticasone Flutic suspend Fluticas one eCW3 Propionate asone ed Propionate (H udson 50 MCG/ACT Propio 50 MCG/ACT R [address]) MCG/AC T Spironolact Spiron 1.0 active Spironola instructor pilot eCW3 one 25 MG olacto {tabl ne 25 MG (Hu dson Oral Tablet ne 25 et} [facility]) 3 ML Victoz active Victoza 18 eCW3 liraglutide a 18 MG/3ML ([place]so n 6 MG/ML Pen MG/3ML [facility]) Victoza 18 MG/3ML 3 ML Victoz active Victoza 18 eCW3 liraglutide a 18 MG/3ML ([place]so n 6 MG/ML Pen MG/3ML [facility] Injector Health [Victoza] Care) Victoza 18 MG/3ML Losartan Losart active Losartan [...] Tablet Care) Pantoprazol e Sodium 20 MG carvedilol Carved active Carvedilol eCW3 3.125 MG ilol 3.125 MG ([place] Oral Tablet 3.125 [facility] Carvedilol MG Health 3.125 MG Care) 200 ACTUAT Ventol 2.0 [...] 500-50 mcg/dose Spironolact Spiron 1.0 active Spironola instructor pilot eCW3 one 25 MG olacto {tabl ne 25 MG (Hu dson Oral Tablet ne 25 et} [facility]) Loratadine Clarit 1.0 active Claritin 1 0 eCW3 10 MG Oral in 10 {tabl mg ([place] Tablet mg et} [place] [Claritin] [facility] 10 [facility]) mg clopidogrel Clopid active Clopidogr el eCW3 75 MG Oral ogrel Bisulfate 75 ([place] Tablet Bisulf MG [facility] Clopidogrel ate 75 Health Bisulfate MG [facility]) 75 MG Vitamin B Vitami 1.0 active Vitamin B e CW3 Complex - n B {tabl Complex - ([place] son Comple et} [facility] x - Health [facility]) Spironolact Spiron 1.0 active Spironola instructor pilot eCW3 one 25 MG olacto {tabl ne 25 MG (Hu dson Oral Tablet ne 25 et} [facility]) 200 ACTUAT Ventol 2.0 suspend Ventolin HFA [...] [facility] Release 20 MG Health Oral Tablet [facility]) Pantoprazol e Sodium 20 MG Loratadine Clarit 1.0 active Claritin 1 0 eCW3 10 MG Oral in 10 {tabl mg ([place] Tablet mg et} [place] [Claritin] [facility] Claritin 10 [facility]) mg rivaroxaban Xarelt active Xarelto 2 0 eCW3 20 MG Oral o 20 MG ([place] Tablet MG [place] [Xarelto] [facility] Xarelto 20 [facility]) MG Morphine Morphi 1.0 suspend Morphine eC W3 Sulfate 15 ne {tabl ed Sulfate ER (H udson MG Extended Sulfat et} 15 MG [facility] Release e ER Health Oral Tablet 15 MG [facility]) Morphine Sulfate ER 15 MG Spironolact Spiron 1.0 active Spironola instructor pilot eCW3 one 25 MG olacto {tabl ne 25 MG (Hu dson Oral Tablet ne 25 et} [facility]) Spironolact Spiron 1.0 active Spironola instructor pilot eCW3 one 25 MG olacto {tabl ne 25 MG (Hu d[place] Oral Tablet ne 25 et} [facility]) Fluticasone Flutic suspend Fluticas one eCW3 Propionate asone ed Propionate (H udson 50 MCG/ACT Propio 50 MCG/ACT R [address]) MCG/AC T Fluticasone Flutic suspend Fluticas one eCW3 Propionate asone ed Propionate (H udson 50 MCG/ACT Propio 50 MCG/ACT R [place] [address] Care) MCG/AC T clopidogrel Clopid active Clopidogr el eCW3 75 MG Oral ogrel Bisulfate 75 ([place] Tablet Bisulf MG [facility] Clopidogrel ate 75 Health Bisulfate MG Care) 75 MG Losartan Losart active Losartan eCW 3 Potassium an Potassium 50 (H udson 50 MG Oral Potass MG [facility] Tablet ium 50 [facility] Care) rivaroxaban Xarelt active Xarelto 2 0 eCW3 20 MG Oral o 20 MG ([place] Tablet MG [facility] [Xarelto] Health Xarelto 20 Care) MG Losartan Losart active Losartan eCW 3 Potassium an Potassium 50 (H udson 50 MG Oral Potass MG [facility] Tablet ium 50 [facility] Care) Morphine Morphi 1.0 suspend Morphine eC W3 Sulfate 15 ne {tabl ed Sulfate ER (H udson MG Extended Sulfat et} 15 MG [facility] Release e ER Health Oral Tablet 15 MG Care) Morphine Sulfate ER 15 MG Fluticasone Flutic suspend Fluticas one eCW3 Propionate asone ed Propionate (H udson 50 MCG/ACT Propio 50 MCG/ACT R [address]) MCG/AC T 200 ACTUAT Ventol 2.0 [...] {tabl Complex - (Hud son Comple et} [place] [facility]) Magnesium Magnes active [...] {tabl Complex - (Hud son Comple et} [facility]) 60 ACTUAT Advair active Advair [...] iver cheri Health 50 Care) MCG/AC T gabapentin Gabape 1.0 active Gabapentin [...] [facility] Tablet ium 50 Health MG Care) Vitamin B Vitami 1.0 active [...] Care) mg Spironolact Spiron 1.0 active Spironola instructor pilot eCW3 one 25 MG olacto {tabl ne 25 MG (Hu dson Oral Tablet ne 25 et} [facility] Care) carvedilol Carved active Carvedilol eCW3 3.125 [...] 10 {tabl mg ([place] Tablet mg et} [place] [Claritin] [address]) mg montelukast Eduardo 1.[address] eCW3 10 MG Oral ukast {tabl Sodium 10 mg ([place] Tablet Sodium et} [facility] Montelukast 10 mg Health Sodium [address] [place] [address]) mg 60 ACTUAT Advair active Advair eCW3 [...] MG (Huds on Capsule 300 MG ule} [place] Gabapentin [facility] 300 MG Care) Vitamin B [...] Bisulfate MG [facility]) 75 MG Unknown complet eCW2 Medications ed [...] MG/3ML (Hudso n 6 MG/ML Pen MG/3ML [place] Injector Health [Victoza] Care) Victoza 18 MG/3ML [...] MG (Huds on Capsule 300 MG ule} [place] Gabapentin [facility] 300 MG Care) rivaroxaban Xarelt active Xarelto 2 0 eCW3 20 MG Oral o 20 MG ([place] Tablet MG [facility] [Xarelto] Health Xarelto 20 Care) MG montelukast Eduardo 1.[address] eCW3 10 MG Oral ukast {tabl Sodium 10 mg ([place] Tablet Sodium et} [facility] Montelukast 10 mg Health Sodium 10 Care) mg Loratadine Clarit 1.0 active Claritin 1 0 eCW3 10 MG Oral in 10 {tabl mg ([place] Tablet mg et} [facility] [Claritin] Health Claritin 10 Care) mg Spironolact Spiron 1.0 active Spironola instructor pilot eCW3 one 25 MG olacto {tabl ne 25 MG (Hu dson Oral Tablet ne 25 et} [facility] MG [facility]) 200 ACTUAT Ventol 2.0 suspend Ventolin HFA eCW3 Albuterol in HFA {puff ed 108 (90 (Hud son 0.09 108 s} Base) [facility] MG/ACTUAT (90 MCG/ACT [facility]) Care) Dose MCG/AC Inhaler T [Ventolin] Ventolin HFA 108 (90 Base) MCG/ACT Insurance Providers Payer name Policy type Policy ID Covered Covered republican's Policy P elda / Coverage republican ID relationship to [place] [facility] ormation type [place] [id number] SP [id number] [facility] MEDICAID [id number] SP [id number] [facility] MEDICAID [id number] SP [id number] O MVP/HHP O [id number] 01 [id number] 500 MVP/HHP O [id number] 01 [id number] 500 MVP/HHP O [id number] 01 [id number] Problems, Conditions, and Diagnoses Code Display Name Description Problem Effective Data Type Dates Source(s) F41.9 Anxiety Anxiety Problem 01/07/2020 eCW3 12:00:00 AM ([facility]) G47.00 Insomnia, unspecified Insomnia, unspecified Problem eCW3 type type 12:00:00 AM ([facility]) F41.0 Panic disorder Panic disorder Problem 12/20/2019 eCW3 12:00:00 AM ([facility]) F41.0 Panic disorder Panic disorder Problem 12/20/2019 eCW3 12:00:00 AM ([facility]) I73.9 Peripheral vascular Peripheral vascular Problem 020 eCW3 disease disease 12:00:00 AM ([facility]) I50.23 Acute on chronic Acute on chronic Problem 09/24/2019 eC W3 systolic CHF systolic CHF 12:00:00 AM ([facility] (congestive heart (congestive heart EDT [place] failure) failure) [facility]) I73.9 Peripheral vascular Peripheral vascular Problem 020 eCW3 disease disease 12:00:00 AM ([facility]) I50.23 Acute on chronic Acute on chronic Problem 09/24/2019 eC W3 systolic CHF systolic CHF 12:00:00 AM ([facility] (congestive heart (congestive heart EDT [place] failure) failure) [facility]) I73.9 Peripheral vascular Peripheral vascular Problem 020 eCW3 disease disease 12:00:00 AM ([facility]) I50.22 Systolic CHF, chronic Systolic CHF, chronic Problem eCW3 12:00:00 AM ([facility]) I50.22 Systolic CHF, chronic Systolic CHF, chronic Problem eCW3 12:00:00 AM ([facility]) J45.40 Moderate persistent Moderate persistent Problem 020 eCW3 asthma without asthma without 12:00:00 AM ([facility] on complication complication [facility]) J45.40 Moderate persistent Moderate persistent Problem 020 eCW3 asthma without asthma without 12:00:00 AM ([facility] on complication complication [facility]) J45.40 Moderate persistent Moderate persistent Problem 020 eCW3 asthma without asthma without 12:00:00 AM ([facility] on complication complication [facility]) I50.23 Acute on chronic Acute on chronic Problem 06/13/2019 eC W3 systolic congestive systolic congestive 12:00:0 0 AM ([place] heart failure heart failure [facility]) I50.23 Acute on chronic Acute on chronic Problem 06/13/2019 eC W3 systolic congestive systolic congestive 12:00:0 0 AM ([facility] heart failure heart failure [facility]) I50.23 Acute on chronic Acute on chronic Problem 06/13/2019 eC W3 systolic congestive systolic congestive 12:00:0 0 AM ([facility] heart failure heart failure [facility]) J45.901 Exacerbation of asthma Asthma with acute Problem 2019 eCW3 exacerbation 12:00:00 AM ([facility]) J45.901 Exacerbation of asthma Asthma with acute Problem 2019 eCW3 exacerbation 12:00:00 AM ([facility]) J45.901 Exacerbation of asthma Asthma with acute Problem 2019 eCW3 exacerbation 12:00:00 AM ([facility]) J45.41 Moderate persistent Moderate persistent Problem 019 eCW3 asthma with acute asthma with acute 12:00:00 AM ([facility] exacerbation exacerbation [facility]) J45.41 Moderate persistent Moderate persistent Problem 019 eCW3 asthma with acute asthma with acute 12:00:00 AM ([facility] exacerbation exacerbation [facility]) J45.41 Moderate persistent Moderate persistent Problem 019 eCW3 asthma with acute asthma with acute 12:00:00 AM ([facility] exacerbation exacerbation [facility]) J45.41 Moderate persistent Moderate persistent Problem 019 eCW3 asthma with acute asthma with acute 12:00:00 AM ([facility] exacerbation exacerbation [facility]) J45.41 Moderate persistent Moderate persistent Problem 019 eCW3 asthma with acute asthma with acute 12:00:00 AM ([facility] exacerbation exacerbation [facility]) J45.40 Moderate persistent Moderate persistent Problem 019 eCW3 asthma, unspecified asthma, unspecified 12:00:0 0 AM ([place] whether complicated whether complicated [facility]) J45.40 Moderate persistent Moderate persistent Problem 019 eCW3 asthma, unspecified asthma, unspecified 12:00:0 0 AM ([place] whether complicated whether complicated [facility]) J45.40 Moderate persistent Moderate persistent Problem 019 eCW3 asthma, unspecified asthma, unspecified 12:00:0 0 AM ([place] whether complicated whether complicated [facility]) J45.40 Moderate persistent Moderate persistent Problem 019 eCW3 asthma, unspecified asthma, unspecified 12:00:0 0 AM ([place] whether complicated whether complicated [facility]) J45.40 Moderate persistent Moderate persistent Problem 019 eCW3 asthma, unspecified asthma, unspecified 12:00:0 0 AM ([facility] whether complicated whether complicated [facility]) J45.40 Moderate persistent Moderate persistent Problem 019 eCW3 asthma, unspecified asthma, unspecified 12:00:0 0 AM ([facility] whether complicated whether complicated [facility]) I42.8 Non-ischemic Non-ischemic Problem 10/06/2018 eCW3 cardiomyopathy cardiomyopathy 12:00:00 AM ([facility]) I21.4 NSTEMI (non-ST elevated NSTEMI (non-ST Problem 10/07/19 19 eCW3 myocardial infarction) elevated myocardial 12:0 0:00 AM ([facility] infarction) [facility]) I48.91 Atrial fibrillation, Atrial fibrillation, Problem 10/06 eCW3 unspecified type unspecified type 12:00:00 AM ( [facility]) I42.8 Non-ischemic Non-ischemic Problem 10/06/2018 eCW3 cardiomyopathy cardiomyopathy 12:00:00 AM ([facility]) I21.4 NSTEMI (non-ST elevated NSTEMI (non-ST Problem 10/07/19 19 eCW3 myocardial infarction) elevated myocardial 12:0 0:00 AM ([facility] infarction) [facility]) I48.91 Atrial fibrillation, Atrial fibrillation, Problem 10/06 eCW3 unspecified type unspecified type 12:00:00 AM ( [facility]) I21.4 NSTEMI (non-ST elevated NSTEMI (non-ST Problem 10/07/19 19 eCW3 myocardial infarction) elevated myocardial 12:0 0:00 AM ([facility] infarction) [facility]) I48.91 Atrial fibrillation, Atrial fibrillation, Problem 10/06 eCW3 unspecified type unspecified type 12:00:00 AM ( [facility]) I42.8 Non-ischemic Non-ischemic Problem 10/06/2018 eCW3 cardiomyopathy cardiomyopathy 12:00:00 AM ([facility]) I48.91 Atrial fibrillation, Atrial fibrillation, Problem 10/06 eCW3 unspecified type unspecified type 12:00:00 AM ( [facility]) I42.8 Non-ischemic Non-ischemic Problem 10/06/2018 eCW3 cardiomyopathy cardiomyopathy 12:00:00 AM ([facility]) I48.91 Atrial fibrillation, Atrial fibrillation, Problem 10/06 eCW3 unspecified type unspecified type 12:00:00 AM ( [facility]) I21.4 NSTEMI (non-ST elevated NSTEMI (non-ST Problem 10/07/19 19 eCW3 myocardial infarction) elevated myocardial 12:0 0:00 AM ([facility] infarction) [facility]) I21.4 NSTEMI (non-ST elevated NSTEMI (non-ST Problem 10/07/19 19 eCW3 myocardial infarction) elevated myocardial 12:0 0:00 AM ([facility]) [facility]) I48.91 Atrial fibrillation, Atrial fibrillation, Problem 10/06 eCW3 unspecified type unspecified type 12:00:00 AM ( [facility]) I42.8 Non-ischemic Non-ischemic Problem 10/06/2018 eCW3 cardiomyopathy cardiomyopathy 12:00:00 AM ([facility]) E83.52 Hypercalcemia Hypercalcemia Problem 12/30/2017 eCW3 12:00:00 AM ([facility]) E83.52 Hypercalcemia Hypercalcemia Problem 12/30/2017 eCW3 12:00:00 AM ([facility]) E83.52 Hypercalcemia Hypercalcemia Problem 12/30/2017 eCW3 12:00:00 AM ([facility]) E83.52 Hypercalcemia Hypercalcemia Problem 12/30/2017 eCW3 12:00:00 AM ([facility]) E83.52 Hypercalcemia Hypercalcemia Problem 12/30/2017 eCW3 12:00:00 AM ([facility]) E83.52 Hypercalcemia Hypercalcemia Problem 12/30/2017 eCW2 12:00:00 AM ([facility]) E83.52 Hypercalcemia Hypercalcemia Problem 12/30/2017 eCW3 12:00:00 AM ([facility]) Z79.4 penitentiary current use log handler current use Problem eCW3 of insulin of insulin 12:00:00 AM ([facility]) E11.65 Type 2 diabetes Type 2 diabetes Problem 07/16/2017 eCW3 mellitus with mellitus with 12:00:00 AM ([facility]) Z79.4 log handler current use log handler current use Problem eCW3 of insulin of insulin 12:00:00 AM ([facility]) E11.65 Type 2 diabetes Type 2 diabetes Problem 07/16/2017 eCW3 mellitus with mellitus with 12:00:00 AM ([facility]) E11.65 Type 2 diabetes Type 2 diabetes Problem 07/16/2017 eCW3 mellitus with mellitus with 12:00:00 AM ([facility]) Z79.4 penitentiary current use penitentiary current use Problem eCW3 of insulin of insulin 12:00:00 AM ([facility]) E11.65 Type 2 diabetes Type 2 diabetes Problem 07/16/2017 eCW3 mellitus with mellitus with 12:00:00 AM ([facility]) Z79.4 log handler current use penitentiary current use Problem eCW3 of insulin of insulin 12:00:00 AM ([facility]) E11.65 Type 2 diabetes Type 2 diabetes Problem 07/16/2017 eCW3 mellitus with mellitus with 12:00:00 AM ([facility]) E11.65 Type 2 diabetes Type 2 diabetes Problem 07/16/2017 eCW3 mellitus with mellitus with 12:00:00 AM ([facility]) Z79.4 log handler current use log handler current use Problem eCW3 of insulin of insulin 12:00:00 AM ([facility]) I42.8 Nonischemic Nonischemic Problem 07/16/2017 eCW2 cardiomyopathy cardiomyopathy 12:00:00 AM ([facility]) Z79.4 log handler current use log handler current use Problem eCW2 of insulin of insulin 12:00:00 AM ([facility]) E11.65 Type 2 diabetes Type 2 diabetes Problem 07/16/2017 eCW2 mellitus with mellitus with 12:00:00 AM ([place] hyperglycemia hyperglycemia [facility]) Z79.4 penitentiary current use penitentiary current use Problem eCW3 of insulin of insulin 12:00:00 AM ([facility]) I42.8 Nonischemic Nonischemic Problem 07/16/2017 eCW3 cardiomyopathy cardiomyopathy 12:00:00 AM ([facility] on [facility]) E11.65 Type 2 diabetes Type 2 diabetes Problem 07/16/2017 eCW3 mellitus with mellitus with 12:00:00 AM ([facility] hyperglycemia hyperglycemia [facility]) I10 Essential hypertension Essential (primary) Problem 04/19 eCW3 hypertension 12:00:00 AM ([facility]) I10 Essential hypertension Essential (primary) Problem 04/19 eCW3 hypertension 12:00:00 AM ([facility]) I10 Essential hypertension Essential (primary) Problem 04/19 eCW3 hypertension 12:00:00 AM ([facility]) I10 Essential hypertension Essential (primary) Problem 04/19 eCW3 hypertension 12:00:00 AM ([facility]) I10 Essential hypertension Essential (primary) Problem 04/19 eCW3 hypertension 12:00:00 AM ([facility]) I10 Essential hypertension Essential (primary) Problem 04/19 eCW2 hypertension 12:00:00 AM ([facility]) E08.40 Diabetic neuropathy Diabetes mellitus due Problem 05/12 eCW2 to underlying 12:00:00 AM ([place] condition with [facility] diabetic neuropathy, Heal unspecified Care) E08.40 Diabetic neuropathy Diabetes mellitus due Problem 05/12 eCW3 to underlying 12:00:00 AM ([place] condition with [facility] diabetic neuropathy, Heal th unspecified Care) I10 Essential hypertension Essential (primary) Problem 04/19 eCW3 hypertension 12:00:00 AM ([facility]) J45.41 Moderate persistent Moderate persistent Problem 017 eCW3 asthma with asthma with 12:00:00 AM ([facility] exacerbation exacerbation [facility]) J45.41 Moderate persistent Moderate persistent Problem 017 eCW3 asthma with asthma with 12:00:00 AM ([facility] exacerbation exacerbation [facility]) J45.41 Moderate persistent Moderate persistent Problem 017 eCW3 asthma with asthma with 12:00:00 AM ([facility] exacerbation exacerbation [facility]) J45.41 Moderate persistent Moderate persistent Problem 017 eCW3 asthma with asthma with 12:00:00 AM ([facility] exacerbation exacerbation [facility]) J45.41 Moderate persistent Moderate persistent Problem 017 eCW3 asthma with asthma with 12:00:00 AM ([facility] exacerbation exacerbation [facility]) J45.41 Moderate persistent Moderate persistent Problem 017 eCW3 asthma with asthma with 12:00:00 AM ([facility] exacerbation exacerbation [facility]) J45.41 Moderate persistent Moderate persistent Problem 017 eCW2 asthma with asthma with 12:00:00 AM ([facility] exacerbation exacerbation [facility]) J45.41 Moderate persistent Moderate persistent Problem 017 eCW3 asthma with asthma with 12:00:00 AM ([facility] exacerbation exacerbation [facility]) F40.9 Phobia Phobia Problem 03/05/2016 eCW2 12:00:00 AM ([facility]) F40.9 Phobia Phobia Problem 03/05/2016 eCW3 12:00:00 AM ([facility]) R20.2 Paresthesia Paresthesia Problem 02/26/2016 eCW2 12:00:00 AM ([facility]) R20.2 Paresthesia Paresthesia Problem 02/26/2016 eCW3 12:00:00 AM ([facility]) E78.0 Pure Hypercholesteremia Problem 02/11/2015 eCW3 hypercholesterolemia 12:00:00 AM ([facility]) Z72.0 Tobacco abuse Tobacco abuse Problem 02/11/2015 eCW3 12:00:00 AM ([facility]) E11.9 Type II diabetes Type 2 diabetes Problem 02/11/2015 eCW 3 mellitus without mellitus without 12:00:00 AM ( [facility] complication complications [facility]) Z72.0 Tobacco abuse Tobacco abuse Problem 02/11/2015 eCW3 12:00:00 AM ([facility]) E11.9 Type II diabetes Type 2 diabetes Problem 02/11/2015 eCW 3 mellitus without mellitus without 12:00:00 AM ( [facility]) E78.0 Pure Hypercholesteremia Problem 02/11/2015 eCW3 hypercholesterolemia 12:00:00 AM ([facility]) E78.0 Pure Hypercholesteremia Problem 02/11/2015 eCW3 hypercholesterolemia 12:00:00 AM ([facility]) Z72.0 Tobacco abuse Tobacco abuse Problem 02/11/2015 eCW3 12:00:00 AM ([facility]) E11.9 Type II diabetes Type 2 diabetes Problem 02/11/2015 eCW 3 mellitus without mellitus without 12:00:00 AM ( [facility]) E11.9 Type II diabetes Type 2 diabetes Problem 02/11/2015 eCW 3 mellitus without mellitus without 12:00:00 AM ( [facility]) E78.0 Pure Hypercholesteremia Problem 02/11/2015 eCW3 hypercholesterolemia 12:00:00 AM ([facility]) Z72.0 Tobacco abuse Tobacco abuse Problem 02/11/2015 eCW3 12:00:00 AM ([facility]) E78.0 Pure Hypercholesteremia Problem 02/11/2015 eCW3 hypercholesterolemia 12:00:00 AM ([facility]) E11.9 Type II diabetes Type 2 diabetes Problem 02/11/2015 eCW 3 mellitus without mellitus without 12:00:00 AM ( [facility]) E78.0 Pure Hypercholesteremia Problem 02/11/2015 eCW3 hypercholesterolemia 12:00:00 AM ([facility]) Z72.0 Tobacco abuse Tobacco abuse Problem 02/11/2015 eCW3 12:00:00 AM ([facility]) E11.9 Type II diabetes Type 2 diabetes Problem 02/11/2015 eCW 2 mellitus without mellitus without 12:00:00 AM ( [facility]) Z72.0 Tobacco abuse Tobacco abuse Problem 02/11/2015 eCW2 12:00:00 AM ([facility]) J45.909 Asthma Asthma Problem 02/11/2015 eCW2 12:00:00 AM ([facility]) E78.0 Pure Hypercholesteremia Problem 02/11/2015 eCW2 hypercholesterolemia 12:00:00 AM ([facility]) Z72.0 Tobacco abuse Tobacco abuse Problem 02/11/2015 eCW3 12:00:00 AM ([facility]) E11.9 Type II diabetes Type 2 diabetes Problem 02/11/2015 eCW 3 mellitus without mellitus without 12:00:00 AM ( [facility]) E78.0 Pure Hypercholesteremia Problem 02/11/2015 eCW3 hypercholesterolemia 12:00:00 AM ([facility]) J45.909 Asthma Asthma Problem 02/11/2015 eCW3 12:00:00 AM ([facility]) 425.4 Cardiomyopathy Cardiomyopathy Problem 09/11/2014 eCW2 12:00:00 AM ([facility]) 425.4 Cardiomyopathy Cardiomyopathy Problem 09/11/2014 eCW3 12:00:00 AM ([facility]) 729.5 Pain in limb Foot pain, bilateral Problem 08/07/2014 eC W2 12:00:00 AM ([facility]) 729.5 Pain in limb Foot pain, bilateral Problem 08/07/2014 eC W3 12:00:00 AM ([facility]) 891.0 Open wound of knee Wound of right leg Problem 5 eCW2 and/or leg and/or ankle 12:00:00 AM ([facility]) 891.0 Open wound of knee Wound of right leg Problem 5 eCW3 and/or leg and/or ankle 12:00:00 AM ([facility]) 793.80 Mammography abnormal Abnormal mammography Problem 06/26 eCW2 12:00:00 AM ([facility]) 793.80 Mammography abnormal Abnormal mammography Problem 06/26 eCW3 12:00:00 AM ([facility]) 785.6 Hilar lymphadenopathy Hilar lymphadenopathy Problem eCW2 12:00:00 AM ([facility]) 493.90 Moderate persistent Asthma, moderate Problem 01/30/2014 eCW2 asthma persistent 12:00:00 AM ([facility]) 493.90 Moderate persistent Asthma, moderate Problem 01/30/2014 eCW3 asthma persistent 12:00:00 AM ([facility]) 785.6 Hilar lymphadenopathy Hilar lymphadenopathy Problem eCW3 12:00:00 AM ([facility]) 790.6 Elevated liver enzymes Elevated LFTs Problem 12/07/2013 eCW2 level 12:00:00 AM ([facility]) 790.6 Elevated liver enzymes Elevated LFTs Problem 12/07/2013 eCW3 level 12:00:00 AM ([facility]) 272.0 Hypercholesterolemia Hypercholesterolemia Problem 10/18 eCW2 12:00:00 AM ([facility]) 272.0 Hypercholesterolemia Hypercholesterolemia Problem 10/18 eCW3 12:00:00 AM ([facility]) 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) 278.00 Obesity OBESITY NOS Problem eCW2 ([facility]) 357.2 Diabetic neuropathy NEUROPATHY IN DIABETES Problem eCW2 ([facility]) 268.9 Vitamin D deficiency Vitamin D deficiency Problem eCW2 NOS ([facility]) 311 Depressive disorder Depression Disorder Problem eCW2 NOS ([facility]) 296.60 Mixed bipolar I Bipolar affective Problem eC W2 disorder disorder, mixed ([facility]) 715.90 Generalized Osteoarthritis Problem eCW2 osteoarthritis generalized ([facility]) 477.9 Allergic rhinitis ALLERGIC RHINITIS NOS Problem eCW2 ([facility]) 250.00 Diabetes mellitus type Diabetes mellitus type Problem eCW2 2 2 ([facility]) 401.9 Hypertension Hypertension Problem eCW2 ([facility]) 305.1 Tobacco abuse Tobacco Abuse Problem eCW2 ([facility]) 530.11 Gastroesophageal reflux GERD Problem e CW2 disease (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) 250.00 Diabetes mellitus type Diabetes mellitus type Problem eCW3 2 2 ([facility]) 401.9 Hypertension Hypertension Problem eCW3 ([facility]) 305.1 Tobacco abuse Tobacco Abuse Problem eCW3 ([facility]) 530.11 Gastroesophageal reflux GERD Problem e CW3 disease ([facility]) 357.2 Diabetic neuropathy NEUROPATHY IN DIABETES Problem eCW3 ([facility]) 278.00 Obesity OBESITY NOS Problem eCW3 ([facility]) 311 Depressive disorder Depression Disorder Problem eCW3 NOS ([facility]) 268.9 Vitamin D deficiency Vitamin D deficiency Problem eCW3 NOS ([facility]) 715.90 Generalized Osteoarthritis Problem eCW3 osteoarthritis generalized ([facility]) 296.60 Mixed bipolar I Bipolar affective Problem eC W3 disorder disorder, mixed ([facility]) 477.9 Allergic rhinitis ALLERGIC RHINITIS NOS Problem eCW3 ([facility]) F17.210 Nicotine dependence, NICOTINE DEPENDENCE, Diagnosis 12/11 cigarettes, CIGARETTES, 04:44:00 PM [facility] uncomplicated UNCOMPLICATED [facility] I10 Essential (primary) ESSENTIAL (PRIMARY) Diagnosis hypertension HYPERTENSION 04:44:00 PM [facility] E11.9 Type 2 diabetes TYPE 2 DIABETES Diagnosis 12/12/2019 Holly t mellitus without MELLITUS WITHOUT 04:44:00 PM J osep complications COMPLICATIONS [facility] J45.909 Unspecified asthma, UNSPECIFIED ASTHMA, Diagnosis [facility] uncomplicated UNCOMPLICATED 04:44:00 PM [facility] Y99.9 Unspecified external UNSPECIFIED EXTERNAL Diagnosis 12/11 Saint cause status CAUSE STATUS 04:44:00 PM [facility] Y92.[address] in UNSP PLACE IN UNSP Diagnosis Saint unspecified NON-INSTITUT (PRIVATE) 04:44:00 PM [facility] non-institutional RESIDENCE PLACE [facility] Medical (private) residence as Ce nter the place of occurrence of the external cause Y93.9 Activity, unspecified ACTIVITY, UNSPECIFIED Diagnosis Saint 04:44:00 PM [facility] W01.0XX Fall on same level from FALL SAME LEV FROM Diagnosis 11/17 Saint A slipping, tripping and SLIP/TRIP W/O STRIKE 04: 44:00 PM Joanne stumbling without AGAINST OBJECT, INIT EDT Medical subsequent striking Jude alcaraz against object, initial encounter M54.6 Pain in thoracic spine PAIN IN THORACIC SPINE Diagnosis 0 12/12/2019 [facility] 04:44:00 PM [facility] M54.2 Cervicalgia CERVICALGIA Diagnosis 12/12/2019 [facility] 04:44:00 PM [facility] I48.91 Unspecified atrial UNSPECIFIED ATRIAL Diagnosis 9 [facility] fibrillation FIBRILLATION 05:19:00 AM [facility] G90.09 Other idiopathic OTHER IDIOPATHIC Diagnosis 02/02/2019 Sa int peripheral autonomic PERIPHERAL AUTONOMIC 05:19 :00 AM [facility] neuropathy NEUROPATHY [facility] 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/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 [place] CORONARY 05:19:00 A Jamar Rubio coronary artery [...] 02/02/2019 (congestive) heart (CONGESTIVE) HEART 05:19:00 AM [facility] failure FAILURE [facility] R06.00 Dyspnea, unspecified DYSPNEA, UNSPECIFIED Diagnosis 02/02 Saint 05:19:00 AM [facility] Surgeries/Procedures Procedure Description Date Indications Data Source(s) EKG W INTERPRETATION 11/02/2018 eCW3 [facility] O-TR2 TRANS TO/FROM THE 01/24/2018 eCW2 ([place] REFERRAL APPOINT [facility]:00[facility] O-CM2 CASE MANAGEMENT 01/17/2018 eCW2 ( [place] FOLLOW[facility]) COLLECTION CAPILLARY 01/06/2018 eCW2 ([facility] BLOOD SPECIMEN 12:00:00 AM [facility] EDT Care) GLUC BLD GLUC MNTR DEV 01/06/2018 eCW2 ([facility] FDA SPEC HOME 12:00:00 AM [facility] USE EDT Care) No Known procedures No Known procedures e CW2 ([facility]) No Known procedures No Known procedures e CW2 ([facility]) Results ID Date Data Source [id number] 01/08/2020 10:43:00 PM EDT [facility] Name Value Range Interpretation Code Description Data Sally rce(s) Supporting Document(s ) SARS-CoV-2 [facility] RNA [facility] Ql JUNIE+probe This lab was ordered by [facility] and reported by [facility]. ID Date Data Source [id number] 01/08/2020 12:40:00 AM EDT [facility] Name Value Range Interpretation Description Data Sup porting Code Source(s) Document(s ) SARS [facility] coronavirus 2 RNA This lab was ordered by [facility] and reported by [facility]. ID Date Data Source [id number] 12/04/2019 03:12:00 PM EDT [facility] Name Value Range Interpretation Description Data Sup porting Code Source(s) Document(s ) SARS [facility] coronavirus 2 RNA This lab was ordered by [facility] and reported by [facility]. ID Date Data Source [id number] 11/24/2019 10:00:00 AM EDT [facility] Name Value Range Interpretation Description Data Sup porting Code Source(s) Document(s ) SARS [facility] coronavirus 2 RNA This lab was ordered by [facility] and reported by [facility]. ID Date Data Source [id number] 11/06/2019 07:15:00 AM EDT [facility] Name Value Range Interpretation Description Data Sup porting Code Source(s) Document(s ) SARS [facility] coronavirus 2 RNA This lab was ordered by [facility] and reported by [facility]. ID Date Data Source [id number] 10/24/2019 09:28:00 AM EDT [facility] Name Value Range Interpretation Description Data Sup porting Code Source(s) Document(s ) SARS [facility] coronavirus 2 RNA This lab was ordered by [facility] and reported by [facility]. ID Date Data Source [id number] 10/13/2019 08:15:00 AM EDT [facility] Name Value Range Interpretation Description Data Sup porting Code Source(s) Document(s ) SARS [facility] CORONAVIRUS 2 RNA This lab was ordered by [facility] and reported by [facility]. ID Date Data Source [id number] 09/26/2019 07:59:00 AM EDT [facility] Name Value Range Interpretation Description Data Sup porting Code Source(s) Document(s ) SARS [facility] CORONAVIRUS 2 RNA This lab was ordered by [facility] and reported by [facility]. ID Date Data Source [id number] 09/16/2019 02:25:00 PM EDT [facility] Name Value Range Interpretation Description Data Sup porting Code Source(s) Document(s ) SARS [facility] CORONAVIRUS 2 RNA This lab was ordered by [facility] and reported by [facility]. ID Date Data Source Liver 02/04/2019 05:30:00 AM EDT [facility] Profile.[id number] Name Value Range Interpretation Description Data Sup [...] s"> (3.5-5.0 G/DL)</content> ID Date Data Source HematologyRou.[id number] 02/04/2019 05:30:00 AM EDT [facility] 0400 Name Value Range Interpretation Description Data [...] (< 1 %)</content> ID Date Data Source GFR(Creatinine).[id number] 02/04/2019 05:30:00 AM EDT [facility] 0-0400 Name Value Range Interpretation Code Description Data Sally rce(s) Supporting Document(s ) UNK > 60 Below low normal <content Joanne styleCode="Bold"> Medical Cent er EGFR </content>60 GFR L<content styleCode="Italic s"> (> 60 GFR)</content> ID Date Data Source CHMROUTINECCDA.[id number] 02/04/2019 05:30:00 AM EDT [facility] -0400 Name Value Range Interpretation Description Data Sup porting Code Source(s) Document(s ) UNK >= 1.0 <content [facility] styleCode="Bold Medical ">AG Ratio Center </content>1.3 <content styleCode="Ital ics"> (>= 1.0 )</content> UNK 2.3-3.5 <content [facility] styleCode="Bold Medical ">Globulin Center </content>3.0 G/DL<content styleCode="Ital ics"> (2.3-3.5 G/DL)</content> Protein 6.3-8.2 <content Saint Joanne [Mass/volum styleCode="Bold Medical e] in Serum ">Total Protein Center or Plasma </content>6.8 G/DL<content styleCode="Ital ics"> (6.3-8.2 G/DL)</content> ID Date Data Source [facility].[id number] 02/04/2019 05:30:00 AM EDT [facility] Center Name Value Range Interpretation Description Data Sup porting Code Source(s) Document(s ) Potassium 3.5-5.3 <content Saint [Moles/volume] in styleCode="Bold"> [facility] Serum or Plasma Potassium Medical </content>4.2 Center MEQ/L<content styleCode="Italic s"> (3.5-5.3 MEQ/L)</content> Sodium 137-145 Below low <content Saint [Moles/volume] in normal styleCode="Bold"> [facility] Serum or Plasma Sodium Medical </content>136 Center MEQ/L L<content styleCode="Italic s"> (137-145 MEQ/L)</content> Chloride 98-107 <content Saint [Moles/volume] in styleCode="Bold"> [facility] Serum or Plasma Chloride Medical </content>101 Center [...] Saint [Mass/volume] in panic limits styleCode="Bold"> [facility] Serum or Plasma Glucose Medical </content><conten Center [...] s"> (3.5-5.0 G/DL)</content> ID Date Data Source Hormones.[id number] 02/03/2019 06:00:00 AM EDT [facility] t [facility] Name Value Range Interpretation Description Data Sup porting Code Source(s) Document(s ) Thyrotropin 0.465-4. Above high normal <content Saint [Units/volume] 68 styleCode="Robby Joanne in Serum or d">Thyroid Medical Plasma by Stimulating Center Detection Hormone limit <= 0.05 </content>4.85 mIU/L MIU/L H<content styleCode="Ny lics"> (0.465-4.68 MIU/L)</conten t> ID Date Data Source HematologyRou.[id number] 02/03/2019 06:00:00 AM EDT [facility] nt [facility] 0400 Name [...] (0.0 KCUMM)</content > ID Date Data Source GFR(Creatinine).[id number] 02/03/2019 06:00:00 AM EDT [facility] 0-0400 Name Value Range Interpretation Code Description Data Sally rce(s) Supporting Document(s ) UNK > 60 <content [facility] styleCode="Bold"> Medical Cent er EGFR </content>84 GFR<content styleCode="Italic s"> (> 60 GFR)</content> ID Date Data Source CHMROUTINECCDA.[id number] 02/03/2019 06:00:00 AM EDT [facility] -0400 Name Value Range Interpretation Description [...] (2.5-4.5 MG/DL)</conten t> ID Date Data Source CardiacMarkers.[id number] 02/03/2019 06:00:00 AM EDT [facility] -0400 Name Value Range Interpretation Description Data Sup porting Code Source(s) Document(s ) Troponin < 0.034 <content Saint I.cardiac styleCode="Bold Joanne [Mass/volume ">Troponin I Medical ] in Serum </content>0.033 Center or Plasma NG/ML<content styleCode="Ital ics"> (< 0.034 NG/ML)</content > ID Date Data Source BMP.[id number] 02/03/2019 06:00:00 AM EDT [facility] Name Value Range Interpretation Description Data Sup porting Code Source(s) Document(s ) Potassium 3.5-5.3 <content Saint [Moles/volume] styleCode="Robby Joanne in Serum or d">Potassium Medical Plasma </content>4.1 [...] Joanne in Serum or d">Glucose Medical Plasma </content>200 Center MG/DL H<content styleCode="Ny lics"> (74-106 MG/DL)</conten t> UNK 7-17 Above high normal <content Saint styleCode="Robby Joanne d">BUN Medical </content>21 Center MG/DL H<content styleCode="Ny lics"> (7-17 MG/DL)</conten t> Creatinine 0.5-1.3 <content Saint [Mass/volume] styleCode="Robby Joanne in Serum or d">Creatinine Medical Plasma </content>0.9 Center MG/DL<content styleCode="Ny lics"> (0.5-1.3 MG/DL)</conten t> Carbon 22-30 <content Saint dioxide, total styleCode="Robby Peñas [Moles/volume] d">Carbon Medical in Serum or Dioxide Center Plasma </content>29 MEQ/L<content styleCode="Ny lics"> (22-30 MEQ/L)</conten t> Calcium 8.4-10.2 <content Saint [Mass/volume] styleCode="Robby Peñas in Serum or d">Calcium Medical Plasma </content>10.1 Center MG/DL<content styleCode="Ny lics"> (8.4-10.2 MG/DL)</conten t> UNK > 60 <content Saint styleCode="Robby Peñas d">EGFR Medical </content>84 Center GFR<content styleCode="Ny lics"> (> 60 GFR)</content> ID Date Data Source Urinalysis.[id number] 02/02/2019 07:10:00 AM EDT [facility] Name Value Range Interpretation Description Data Sup porting Code Source(s) Document(s ) Color of Urine YELLOW <content Saint styleCode="Robby Peñas d">Color, Medical Urine Center </content>YELL OW <content styleCode="Ny lics"> (YELLOW )</content> Glucose NEGATIVE <content Saint [Mass/volume] styleCode="Robby Rubio in Urine by d">Urine Medical Test strip Glucose Center </content>NEGA TIVE MG/DL<content styleCode="Ny lics"> (NEGATIVE MG/DL)</conten t> UNK NEGATIVE <content Saint styleCode="Robby Joanne d">Urine Medical Bilirubin Center </content>NEGA TIVE <content styleCode="Ny lics"> (NEGATIVE )</content> UNK CLEAR <content Saint styleCode="Robby Joanne d">Urine Medical Clarity Center </content>TIFFANIE R <content styleCode="Ny lics"> (CLEAR )</content> Ketones NEGATIVE <content Saint [Mass/volume] styleCode="Robby Joanne in Urine by d">Urine Medical Test strip Ketone Center </content>NEGA TIVE MG/DL<content styleCode="Ny lics"> (NEGATIVE MG/DL)</conten t> Specific 1.015-1.02 Below low normal <content Saint gravity of 5 styleCode="Robby Joanne Urine by Test d">Urine Medical strip Specific Center [place] </content>1.01 0 L<content styleCode="Ny lics"> (1.015-1.025 )</content> Urobilinogen 0.2-1.0 <content Saint [Units/volume] styleCode="Robby Joanne in Urine by d">Urine Medical Test strip Urobilinogen Center </content>0.2 MG/DL<content styleCode="Ny lics"> (0.2-1.0 MG/DL)</conten t> Protein NEGATIVE <content Saint [Mass/volume] styleCode="Robby Joanne in Urine by d">Urine Medical Test strip Protein Center </content>TRAC E MG/DL<content styleCode="Ny lics"> (NEGATIVE MG/DL)</conten t> Hemoglobin NEGATIVE <content Saint [Presence] in styleCode="Robby Peñas Urine by Test d">Urine Blood Medical strip [...] (NEGATIVE )</content> UNK 0-3 <content Saint styleCode="Robby Peñas d">Urine White Medical Blood Cell Center </content>0-3 HPF<content styleCode="Ny lics"> (0-3 HPF)</content> Nitrite NEGATIVE <content Saint [Presence] in styleCode="Robby Rubio Urine by Test d">Urine Medical strip Nitrite Center </content>NEGA TIVE <content styleCode="Ny lics"> (NEGATIVE )</content> UNK 0-3 <content Saint styleCode="Robby Peñas d">Urine Red Medical Blood Cell Center </content>0-3 HPF<content styleCode="Ny lics"> (0-3 HPF)</content> UNK NONE SEEN <content Saint styleCode="Robby Peñas d">Epithelial Medical Cell Center </content>2-5 HPF<content styleCode="Ny lics"> (NONE SEEN HPF)</content> UNK NEGATIVE <content Saint styleCode="Robby Peñas d">Urine Medical Bacteria Center </content>FEW HPF<content styleCode="Ny lics"> (NEGATIVE HPF)</content> ID Date Data Source LIPID.[id number] 02/02/2019 06:35:[address] [facility] Name Value Range Interpretation Description Data Sup porting Code Source(s) Document(s ) Cholesterol -<200 <content Saint [Mass/volume] in styleCode="Robby Rbuio Serum or Plasma d">Cholesterol Medical </content>133 Center MG/DL<content styleCode="Ny lics"> (-<200 MG/DL)</conten t> Triglyceride < 150 <content Saint [Mass/volume] in styleCode="Robby Peñas Serum or Plasma d">Triglycerid Medical es Center </content>94 MG/DL<content styleCode="Ny lics"> (< 150 MG/DL)</conten t> UNK < 100 <content Saint styleCode="Robby Joanne d">LDL-Cholest Medical simon Center </content>57 MG/DL<content styleCode="Ny lics"> (< 100 MG/DL)</conten t> UNK > 60 Below low normal <content styleCode="Robby Joanne d">HDL- Medical Cholesterol Center </content>57 MG/DL L<content styleCode="Ny lics"> (> 60 MG/DL)</conten t> ID Date Data Source GFR(Creatinine).[id number] 02/02/2019 06:35:00 AM EDT [facility] 0-0400 Name Value Range Interpretation Code Description Data Sally rce(s) Supporting Document(s ) UNK > 60 <content [facility] styleCode="Bold"> Medical Cent er EGFR </content>113 GFR<content styleCode="Italic s"> (> 60 GFR)</content> ID Date Data Source Coagulation 02/02/2019 06:35:00 AM [facility] Rout.[id number] EDT Name Value Range Interpretation Description Data Sup porting Code Source(s) Document(s ) UNK 9.0-13.0 Above high normal <content styleCode="Bold" Joanne >[facility] Medical </content>22.9 Center SEC [...] cs"> (0.80-1.20 #)</content> UNK < 500 <content styleCode="Bold" Joanne >D-Dimer Medical </content>223 Center ngFEU<content styleCode="Itali cs"> (< 500 ngFEU)</content> ID Date Data Source CardiacMarkers.[id number] 02/02/2019 06:35:00 AM EDT [facility] -0400 Name Value Range Interpretation Description Data Sup porting Code Source(s) Document(s ) Troponin < 0.034 Above upper panic <content Saint I.cardiac limits styleCode="Bold Joanne [Mass/volume ">Troponin I Medical ] in Serum </content><cont Center or Plasma ent styleCode="Bold ">0.038 NG/ML HH</content><co ntent styleCode="Ital ics"> (< 0.034 NG/ML)</content > ID Date Data Source [facility].[id number] 02/02/2019 06:35:00 AM EDT [facility] Center Name Value Range Interpretation Description Data [...] t> Creatinine 0.5-1.3 <content Saint [Mass/volume] styleCode="Robby Peñas in Serum or d">Creatinine Medical Plasma </content>0.7 Center MG/DL<content styleCode="Ny lics"> (0.5-1.3 MG/DL)</conten t> UNK 7-17 <content Saint styleCode="Robby Peñas d">BUN Medical </content>15 Center MG/DL<content styleCode="Ny lics"> (7-17 MG/DL)</conten t> Calcium 8.4-10.2 Above high normal <content Saint [Mass/volume] styleCode="Robby Peñas in Serum or d">Calcium Medical Plasma </content>10.8 Center MG/DL H<content styleCode="Ny lics"> (8.4-10.2 MG/DL)</conten t> Glucose 74-106 <content Saint [Mass/volume] styleCode="Robby Peñas in Serum or d">Glucose Medical Plasma </content>90 Center MG/DL<content styleCode="Ny lics"> (74-106 MG/DL)</conten t> UNK > 60 <content Saint styleCode="Robby Peñas d">EGFR Medical </content>113 Center GFR<content styleCode="Ny lics"> (> 60 GFR)</content> ID Date Data Source HematologyRou.[id number] 02/02/2019 06:00:00 AM EDT [facility] 0400 Name Value Range Interpretation Description Data Sup porting Code Source(s) Document(s ) Leukocytes 4.4-11.0 <content Saint [#/volume] in styleCode="Clifton Rubio Blood by ">White Blood Medical Automated count [...] (0.0 KCUMM)</content > ID Date Data Source GFR(Creatinine).[id number] 02/02/2019 06:00:00 AM EDT [facility] 0-0400 Name Value Range Interpretation Code Description Data Sally rce(s) Supporting Document(s ) UNK <content [facility] styleCode="Bold"> Medical Cent er EGFR </content>TNP (Reference Range: not available)
ID Date Data Source Coagulation 02/02/2019 06:00:00 AM [facility] Rout.[id number] EDT Name Value Range Interpretation Description Data Sup porting Code Source(s) Document(s ) UNK <content styleCode="Bold"> Joanne [facility] </content>TNP Center (Reference [...] Range: not available)
ID Date Data Source CardiacMarkers.[id number] 02/02/2019 06:00:00 AM EDT [facility] -0400 Name Value Range Interpretation Description Data Sup porting Code Source(s) Document(s ) Troponin <content Saint [facility] I.cardiac styleCode="Bold Medical [Mass/volume ">Troponin I Center ] in Serum </content>TNP or Plasma (Reference Range: not available)
ID Date Data Source BMP.[id number] 02/02/2019 06:00:00 AM EDT [facility] Name Value Range Interpretation Description Data Sup [...] with 01/06/2018 12:00:00 AM EDT eCW2 (H [facility] Glucometer, In House.0 Care) Name Value Range Interpretation Code Description Data Sally rce(s) Supporting Document(s ) 265 65 mg/dL - Capillary eCW2 ([place] 110 mg/dL Glucose [facility]) Capillary eCW2 ([place] GlucoseTest #2 [facility]) Capillary eCW2 ([place] Glucose Test#3 [facility]) Procedure Social History Code Duration Value Status Description Data Source(s ) Smoking 01/07/2020 Never Smoker completed Never Smoker eCW3 ([place] [facility] 12:00:00 AM [facility]) Smoking 01/07/2020 Never Smoker completed Never Smoker eCW3 ([place] 12:00:00 AM [facility]) Smoking 12/20/2019 Never Smoker completed Never Smoker eCW3 ([place] [facility] 12:00:00 AM [facility]) Smoking 12/20/2019 Never Smoker completed Never Smoker eCW3 ([place] [facility] 12:00:00 AM [facility]) Smoking 12/12/2019 Daily Smoker completed Daily Smoker [facility] 07:54:00 PM EDT Medical C enter Smoking 12/12/2019 Daily Smoker completed Daily Smoker [facility] 06:31:00 PM EDT Medical C enter Smoking 12/12/2019 Daily Smoker completed Daily Smoker [facility] 05:00:00 PM EDT Medical C enter Smoking 11/30/2019 Never Smoker completed Never Smoker eCW3 ([place] 12:00:00 AM [facility]) Smoking 11/30/2019 Never Smoker completed Never Smoker eCW3 ([place] [facility] 12:00:00 AM [facility]) Smoking 11/30/2019 Never Smoker completed Never Smoker eCW3 ([place] 12:00:00 AM [facility]) Smoking 11/12/2019 Never Smoker completed Never Smoker eCW3 ([place] [facility] 12:00:00 AM [facility]) Smoking 09/24/2019 Never Smoker completed Never Smoker eCW3 ([place] 12:00:00 AM [facility]) Smoking 09/24/2019 Never Smoker completed Never Smoker eCW3 ([place] 12:00:00 AM [facility]) Smoking 09/24/2019 Never Smoker completed Never Smoker eCW3 ([place] [facility] 12:00:00 AM [facility]) Smoking 09/24/2019 Never Smoker completed Never Smoker eCW3 ([place] 12:00:00 AM [facility]) Smoking 09/24/2019 Never Smoker completed Never Smoker eCW3 ([place] [facility] 12:00:00 AM [facility]) Smoking 09/21/2019 Never Smoker completed Never Smoker eCW3 ([place] [facility] 12:00:00 AM [facility]) Smoking 09/13/2019 Never Smoker completed Never Smoker eCW3 ([place] [facility] 12:00:00 AM [facility]) Smoking 09/06/2019 Never Smoker completed Never Smoker eCW3 ([place] [facility] 12:00:00 AM [facility]) Smoking 09/06/2019 Never Smoker completed Never Smoker eCW3 ([place] [facility] 12:00:00 AM [facility]) Smoking 09/06/2019 Never Smoker completed Never Smoker eCW3 ([place] [facility] 12:00:00 AM [facility]) Smoking 09/06/2019 Never Smoker completed Never Smoker eCW3 ([place] [facility] 12:00:00 AM [facility]) Smoking 09/06/2019 Never Smoker completed Never Smoker eCW3 ([place] [facility] 12:00:00 AM [facility]) Smoking 08/06/2019 Never Smoker completed Never Smoker eCW3 ([place] [facility] 12:00:00 AM [facility]) Smoking 08/06/2019 Never Smoker completed Never Smoker eCW3 ([place] [facility] 12:00:00 AM [facility]) Smoking 08/06/2019 Never Smoker completed Never Smoker eCW3 ([place] [facility] 12:00:00 AM [facility]) Smoking 08/06/2019 Never Smoker completed Never Smoker eCW3 ([place] [facility] 12:00:00 AM [facility]) Smoking 08/06/2019 Never Smoker completed Never Smoker eCW3 ([place] [facility] 12:00:00 AM [facility]) Smoking 07/05/2019 Never Smoker completed Never Smoker eCW3 ([place] [facility] 12:00:00 AM [facility]) Smoking 07/05/2019 Never Smoker completed Never Smoker eCW3 ([place] [facility] 12:00:00 AM [facility]) Smoking 07/05/2019 Never Smoker completed Never Smoker eCW3 ([place] [facility] 12:00:00 AM [facility]) Smoking 07/05/2019 Never Smoker completed Never Smoker eCW3 ([place] [facility] 12:00:00 AM [facility]) Smoking 05/25/2019 Current Smoker completed Current Smoker eCW3 ( [place] 12:00:00 AM [facility]) Smoking 02/02/2019 Daily Smoker completed [...] Current Smoker eCW3 ( [place] 12:00:00 AM [facility]) Smoking 02/27/2018 Current Smoker completed Current Smoker eCW3 ( [place] 12:00:00 AM [facility]) Smoking 02/27/2018 Current Smoker completed Current Smoker eCW3 ( [place] 12:00:00 AM [facility]) Smoking 02/27/2018 Current Smoker completed Current Smoker eCW3 ( [place] 12:00:00 AM [facility]) Never Smoker completed Never Smoker eCW3 ([facility]) Never Smoker completed Never Smoker eCW3 ([facility]) Never Smoker completed Never Smoker eCW3 ([facility]) Never Smoker completed Never Smoker eCW3 ([facility]) Never Smoker completed Never Smoker eCW3 ([facility]) Never Smoker completed Never Smoker [facility]CW3 [facility] Never Smoker completed Never Smoker eCW3 ([facility]) Never Smoker completed Never Smoker eCW3 ([facility]) Never Smoker completed Never Smoker eCW3 ([facility]) Never Smoker completed Never Smoker eCW3 ([facility]) Never Smoker completed Never Smoker eCW3 ([facility]) Never Smoker completed Never Smoker eCW3 ([facility]) Never Smoker completed Never Smoker eCW3 ([facility]) Never Smoker completed Never Smoker eCW3 ([facility]) Never Smoker completed Never Smoker eCW3 ([facility]) Never Smoker completed Never Smoker eCW3 ([facility]) Never Smoker completed Never Smoker eCW3 ([facility]) Never Smoker completed Never Smoker eCW3 ([facility]) Never Smoker completed Never Smoker eCW3 ([facility]) Never Smoker completed Never Smoker eCW3 ([facility]) Never Smoker completed Never Smoker eCW3 ([facility]) Never Smoker completed Never Smoker eCW3 ([facility]) Never Smoker completed Never Smoker eCW3 ([facility]) Never Smoker completed Never Smoker eCW3 ([facility]) Never Smoker completed Never Smoker eCW3 ([facility]) Never Smoker completed Never Smoker eCW3 ([facility]) Never Smoker completed Never Smoker eCW3 ([facility]) Never Smoker completed Never Smoker eCW3 ([facility] Never Smoker completed Never Smoker eCW3 ([facility]) Current Smoker completed Current Smoker eCW3 ( [facility]) Current Smoker completed Current Smoker eCW3 ( [facility]) Smoking Current Smoker completed Current Smoker eCW2 ( [facility]) Smoking Unknown if ever completed Unknown if ever eCW2 ([place] [facility]) Smoking Unknown if ever completed Unknown if ever eCW2 ([place] [facility]) Smoking Unknown if ever completed Unknown if ever eCW2 ([place] [facility]) Smoking Unknown if ever completed Unknown if ever eCW2 ([place] [facility]) Smoking Unknown if ever completed Unknown if ever eCW2 ([place] [facility]) Smoking Unknown if ever completed Unknown if ever eCW2 ([place] [facility]) Smoking Unknown if ever completed Unknown if ever eCW2 ([place] [facility]) Current Smoker completed Current Smoker eCW3 ( [facility]) Current Smoker completed Current Smoker eCW3 ( [facility]) Current Smoker completed Current Smoker eCW3 ( [facility]) Vital Signs ID Date Data Source UNK Name Value Range Interpretation Code Description Data Source(s) Body temperature 36.603949 36.766535 [facility] Respiratory rate 16 /min 16 /min [facility] Oxygen saturation 98 % 98 % [facility] Arterial blood [facility] by Pulse oximetry Heart rate 84 /min 84 /min [facility] Diastolic blood 86 mm[Hg] 86 mm[Hg] [facility] Systolic blood 132 mm[Hg] 132 mm[Hg] [facility] Body temperature 36.093562 36.052002 [facility] Respiratory rate 19 /min 19 /min [facility] Oxygen saturation 99 % 99 % [facility] Arterial blood [facility] by Pulse oximetry Heart rate 80 /min 80 /min [facility] Diastolic blood 92 mm[Hg] 92 mm[Hg] [facility] Systolic blood 130 mm[Hg] 130 mm[Hg] [facility] Body weight 85.434155 kg 85.068156 kg [facility] Body temperature 36.182244 36.659027 [facility] Respiratory rate 18 /min 18 /min [facility] Oxygen saturation 97 % 97 % [facility] by Pulse oximetry Heart rate 96 /min 96 /min [facility] Body height 170.264635 170.295801 cm [facility] Diastolic blood 92 mm[Hg] 92 mm[Hg] [facility] pressure [facility] Systolic blood 124 mm[Hg] 124 mm[Hg] [facility] Body mass index 29.3 kg/m2 29.3 kg/m2 [facility] (BMI) [Ratio] Medical [address] Diastolic blood 91 mm[Hg] 91 mm[Hg] eCW3 ([facility]) Systolic blood 130 mm[Hg] 130 mm[Hg] eCW3 ([facility]) Body temperature 98.1 [degF] 98.1 [degF] eCW3 ( [facility]) Heart rate 20 /min 20 /min eCW3 ([facility]) Body mass index 36.18 kg/m2 36.18 kg/m2 eCW3 ([facility] (BMI) [Ratio] [facility]) Body weight 238 [lb_av] 238 [lb_av] eCW3 ([facility]) Body height 68 [in_i] 68 [in_i] eCW3 ([facility]) Oxygen saturation 98 % 98 % Melinda albarran in Arterial blood [facility] by Pulse oximetry Body temperature 36.759327 36.444729 [facility] Respiratory rate 20 /min 20 /min [facility] Heart rate 92 /min 92 /min [facility] Diastolic blood 94 mm[Hg] 94 mm[Hg] [facility] Systolic blood 141 mm[Hg] 141 mm[Hg] [facility] Body temperature 36.761007 36.219736 [facility] Respiratory rate 20 /min 20 /min [facility] Heart rate 74 /min 74 /min [facility] Diastolic blood 81 mm[Hg] 81 mm[Hg] [facility] Systolic blood 148 mm[Hg] 148 mm[Hg] [facility] Body weight 105.026423 105.139026 kg [facility] Measured kg Medical Center Body temperature 36.284930 36.090294 [facility] Respiratory rate 20 /min 20 /min [facility] Heart rate 85 /min 85 /min [facility] Diastolic blood 78 mm[Hg] 78 mm[Hg] [facility] pressure Medical Center Systolic blood 133 mm[Hg] 133 mm[Hg] [facility] Body temperature 36.608394 36.635097 [facility] Center Respiratory rate 20 /min 20 /min [facility] Heart rate 89 /min 89 /min [facility] Diastolic blood 79 mm[Hg] 79 mm[Hg] [facility] Systolic blood 137 mm[Hg] 137 mm[Hg] [facility] Body temperature 37.060251 37.875302 [facility] Center Respiratory rate 20 /min 20 /min [facility] Heart rate 72 /min 72 /min [facility] Diastolic blood 93 mm[Hg] 93 mm[Hg] [facility] Systolic blood 159 mm[Hg] 159 mm[Hg] [facility] Oxygen saturation 99 % 99 % [facility] Arterial blood [facility] by Pulse oximetry Body weight 107.288486 107.792787 kg [facility] Measured kg Medical Center Body height 173.990296 173.748916 cm [facility] Body mass index 35.51 kg/m2 35.51 kg/m2 [facility] (BMI) [Ratio] Medical [facility] ter Body weight 107.207094 107.174406 kg [facility] Measured kg Medical Center Oxygen saturation 100 % 100 % [facility] blood [facility] Center by Pulse oximetry Body height 173.955255 173.873264 cm [facility] Body mass index 35.51 kg/m2 35.51 kg/m2 [facility] (BMI) [Ratio] Medical [facility] ter Body temperature 36.238835 36.291606 [facility] Center Respiratory rate 18 /min 18 /min [facility] Heart rate 71 /min 71 /min [facility] Diastolic blood 92 mm[Hg] 92 mm[Hg] [facility] Systolic blood 143 mm[Hg] 143 mm[Hg] [facility] Body weight 107.996159 107.680939 kg [facility] Measured kg Medical Center Body temperature 36.782087 36.801321 [facility] Center Respiratory rate 20 /min 20 /min [facility] Heart rate 80 /min 80 /min [facility] Diastolic blood 94 mm[Hg] 94 mm[Hg] [facility] Medical [place] Systolic blood 132 mm[Hg] 132 mm[Hg] [facility] Oxygen saturation 97 % 97 % [facility] Arterial blood [facility] Center by Pulse oximetry Body temperature 36.905749 36.184806 [facility] Respiratory rate 18 /min 18 /min [facility] Heart rate 85 /min 85 /min [facility] Diastolic blood 77 mm[Hg] 77 mm[Hg] [facility] Systolic blood 141 mm[Hg] 141 mm[Hg] [facility] Oxygen saturation 98 % 98 % [facility] Arterial blood [facility] by Pulse oximetry Body temperature 36.800286 36.917871 [facility] Respiratory rate 18 /min 18 /min [facility] Heart rate 83 /min 83 /min [facility] Diastolic blood 80 mm[Hg] 80 mm[Hg] [facility] Systolic blood 137 mm[Hg] 137 mm[Hg] [facility] Body temperature 37.411106 37.365478 [facility] Respiratory rate 18 /min 18 /min [facility] Oxygen saturation 97 % 97 % [facility] blood [facility] by Pulse oximetry Heart rate 82 /min 82 /min [facility] Diastolic blood 78 mm[Hg] 78 mm[Hg] [facility] Systolic blood 138 mm[Hg] 138 mm[Hg] [facility] Oxygen saturation 97 % 97 % [facility] Arterial blood [facility] Pulse oximetry Diastolic blood 137 mm[Hg] 137 mm[Hg] eCW3 ([facility]) Systolic blood 159 mm[Hg] 159 mm[Hg] eCW3 ([facility]) Body temperature 98.1 [degF] 98.1 [degF] eCW3 ( [facility]) Heart rate 20 /min 20 /min eCW3 ([facility]) Body mass index 34.36 kg/m2 34.36 kg/m2 eCW3 ([facility] (BMI) [Ratio] [facility]) Body weight 226 [lb_av] 226 [lb_av] eCW3 ([facility]) Body height 68 [in_i] 68 [in_i] eCW3 ([facility]) Diastolic blood 85 mm[Hg] 85 mm[Hg] eCW3 ([facility]) Systolic blood 129 mm[Hg] 129 mm[Hg] eCW3 ([facility]) Body temperature 98 [degF] 98 [degF] eCW3 ([facility]) Heart rate 20 /min 20 /min eCW3 ([facility]) Body mass index 35.27 kg/m2 35.27 kg/m2 eCW3 ([facility] [place] (BMI) [Ratio] [facility]) Body weight 232 [lb_av] 232 [lb_av] eCW3 ([facility]) Body height 68 [in_i] 68 [in_i] eCW3 ([facility]) Diastolic blood 74 mm[Hg] 74 mm[Hg] eCW3 ([facility]) Systolic blood 111 mm[Hg] 111 mm[Hg] eCW3 ([facility]) Body temperature 97.8 [degF] 97.8 [degF] eCW3 ( [facility]) Heart rate 20 /min 20 /min eCW3 ([facility]) Body mass index 35.27 kg/m2 35.27 kg/m2 eCW3 ([facility] [place] (BMI) [Ratio] [facility]) Body weight 232 [lb_av] 232 [lb_av] eCW3 ([facility]) Body height 68 [in_i] 68 [in_i] eCW3 ([facility]) Diastolic blood 61 mm[Hg] 61 mm[Hg] eCW3 ([facility]) Systolic blood 90 mm[Hg] 90 mm[Hg] eCW3 ([facility]) Body temperature 98.2 [degF] 98.2 [degF] eCW3 ( [facility]) Heart rate 20 /min 20 /min eCW3 ([facility]) Body mass index 33.45 kg/m2 33.45 kg/m2 eCW3 ([facility] [place] (BMI) [Ratio] [facility]) Body weight 220 [lb_av] 220 [lb_av] eCW3 ([facility]) Body height 68 [in_i] 68 [in_i] eCW3 ([facility]) Diastolic blood 67 mm[Hg] 67 mm[Hg] eCW3 ([facility]) Systolic blood 99 mm[Hg] 99 mm[Hg] eCW3 ([facility]) Body temperature 97.9 [degF] 97.9 [degF] eCW3 ( [facility]) Heart rate 20 /min 20 /min eCW3 ([facility]) Body mass index 33.45 kg/m2 33.45 kg/m2 eCW3 ([place] (BMI) [Ratio] [facility]) Body weight 220 [lb_av] 220 [lb_av] eCW3 ([facility]) Body height 68 [in_i] 68 [in_i] eCW3 ([facility]) Diastolic blood 88 mm[Hg] 88 mm[Hg] eCW3 ([facility]) Systolic blood 138 mm[Hg] 138 mm[Hg] eCW3 ([facility]) Body temperature 98.2 [degF] 98.2 [degF] eCW3 ( [facility]) Heart rate 20 /min 20 /min eCW3 ([facility]) Body mass index 33.45 kg/m2 33.45 kg/m2 eCW3 ([place] (BMI) [Ratio] [facility]) Body weight 220 [lb_av] 220 [lb_av] eCW3 ([facility]) Body height 68 [in_i] 68 [in_i] eCW3 ([facility]) Diastolic blood 74 mm[Hg] 74 mm[Hg] eCW3 ([facility]) Systolic blood 109 mm[Hg] 109 mm[Hg] eCW3 ([facility]) Body temperature 98.1 [degF] 98.1 [degF] eCW3 ( [facility]) Heart rate 20 /min 20 /min eCW3 ([facility]) Body mass index 33.14 kg/m2 33.14 kg/m2 eCW3 ([place] (BMI) [Ratio] [facility]) Body weight 218 [lb_av] 218 [lb_av] eCW3 ([facility]) Body height 68 [in_i] 68 [in_i] eCW3 ([facility]) Diastolic blood 76 mm[Hg] 76 mm[Hg] eCW3 ([facility]) Systolic blood 108 mm[Hg] 108 mm[Hg] eCW3 ([facility]) Body temperature 97.5 [degF] 97.5 [degF] eCW3 ( [facility]) Heart rate 20 /min 20 /min eCW3 ([facility]) Body mass index 33.90 kg/m2 33.90 kg/m2 eCW3 ([place] (BMI) [Ratio] [facility]) Body weight 223 [lb_av] 223 [lb_av] eCW3 ([facility]) Body height 68 [in_i] 68 [in_i] eCW3 ([facility]) Diastolic blood 66 mm[Hg] 66 mm[Hg] eCW2 ([facility]) Systolic blood 93 mm[Hg] 93 mm[Hg] eCW2 ([facility]) Body temperature 97.8 [degF] 97.8 [degF] eCW2 ( [facility]) Heart rate 20 /min 20 /min eCW2 ([facility]) Body mass index 33.30 kg/m2 33.30 kg/m2 eCW2 ([place] (BMI) [Ratio] [facility]) Body weight 219 [lb_av] 219 [lb_av] eCW2 ([facility]) Body height 68 [in_us] 68 [in_us] eCW2 ([facility]) Patient Treatment Plan of Care Planned Activity Planned Date Details Description Data Source (s) Cyclobenzaprine 12/21/2019 eCW3 ([place] hydrochloride 10 MG Oral 12:00:00 AM [facility]) Tablet Sertraline 25 MG Oral 12/21/2019 eCW3 ( [place] Tablet 12:00:00 AM [facility]) Cyclobenzaprine 12/21/2019 eCW3 ([place] hydrochloride 10 MG Oral 12:00:00 AM [facility]) Tablet Sertraline 25 MG Oral 12/21/2019 eCW3 ( [place] Tablet 12:00:00 AM [facility]) [employer] - 09/29/2019 eCW3 ([place] 12:00:00 AM [facility]) [employer] - 09/29/2019 eCW3 ([place] 12:00:00 AM [facility]) [employer] - 09/29/2019 eCW3 ([place] 12:00:00 AM [facility]) [employer] - 09/29/2019 eCW3 ([place] 12:00:00 AM [facility]) [employer] - 09/29/2019 eCW3 ([place] 12:00:00 AM [facility]) COLLAGENASE 0.25 UNT/MG 09/21/2019 eCW3 ([place] Topical Ointment [Santyl] 12:00:00 AM [facility]) Sulfamethoxazole 800 MG / 09/13/2019 eC W3 ([place] Trimethoprim 160 MG Oral 12:00:00 AM [facility]) Tablet [Bactrim] Albuterol 0.83 MG/ML 09/13/2019 eCW3 ([place] Inhalant Solution 12:00:00 AM [facility]) Albuterol 0.83 MG/ML 09/13/2019 eCW3 ([place] Inhalant Solution 12:00:00 AM [facility]) GAUZE NON-STICK 4 X 4 09/13/2019 eCW3 ( [place] 12:00:00 AM [facility]) Bacitracin 0.5 UNT/MG 09/13/2019 eCW3 ( [place] Topical Ointment 12:00:00 AM [facility] Health C are) GAUZE NON-STICK 4 X 4 09/13/2019 eCW3 ( [place] 12:00:00 AM [facility]) Prednisone 10 MG Oral 09/13/2019 eCW3 ( [place] Tablet 12:00:00 AM [facility]) Bacitracin 0.5 UNT/MG 09/13/2019 eCW3 ( [place] Topical Ointment 12:00:00 AM [facility] Health C are) Sulfamethoxazole 800 MG / 09/13/2019 eC W3 ([place] Trimethoprim 160 MG Oral 12:00:00 AM [facility]) Tablet [Bactrim] Prednisone 50 MG Oral 08/06/2019 eCW3 ( [place] Tablet 12:00:00 AM [facility] Care) Wheelchair - 08/06/2019 eCW3 ([place] 12:00:00 AM [facility]) Prednisone 50 MG Oral 08/06/2019 eCW3 ( [place] Tablet 12:00:00 AM [facility]) Wheelchair - 08/06/2019 eCW3 ([place] 12:00:00 AM [facility]) Prednisone 50 MG Oral 08/06/2019 eCW3 ( [place] Tablet 12:00:00 AM [facility] Health [facility]) Wheelchair - 08/06/2019 eCW3 ([place] 12:00:00 AM [facility]) Prednisone 50 MG Oral 08/06/2019 eCW3 ( [place] Tablet 12:00:00 AM [facility]) Wheelchair - 08/06/2019 eCW3 ([place] 12:00:00 AM [facility]) Prednisone 50 MG Oral 08/06/2019 eCW3 ( [place] Tablet 12:00:00 AM [facility]) Wheelchair - 08/06/2019 eCW3 ([place] 12:00:00 AM [facility]) Prednisone 50 MG Oral 08/06/2019 eCW3 ( [place] Tablet 12:00:00 AM [facility]) Wheelchair - 08/06/2019 eCW3 ([place] 12:00:00 AM [facility]) Prednisone 50 MG Oral 08/06/2019 eCW3 ( [place] Tablet 12:00:00 AM [facility]) Wheelchair - 08/06/2019 eCW3 ([place] 12:00:00 AM [facility]) Prednisone 50 MG Oral 08/06/2019 eCW3 ( [place] Tablet 12:00:00 AM [facility]) Prednisone 50 MG Oral 08/06/2019 eCW3 ( [place] Tablet 12:00:00 AM [facility]) Wheelchair - 08/06/2019 eCW3 ([place] 12:00:00 AM [facility]) Prednisone 50 MG Oral 08/06/2019 eCW3 ( [place] Tablet 12:00:00 AM [facility]) Wheelchair - 08/06/2019 eCW3 ([place] 12:00:00 AM [facility]) Wheelchair - 08/06/2019 eCW3 ([place] 12:00:00 AM [facility]) benzonatate 100 MG Oral 05/25/2019 eCW3 ([place] Capsule 12:00:00 AM [facility] Health Care) Clotrimazole 10 MG/ML 05/25/2019 eCW3 ( [place] Topical Cream 12:00:00 AM [facility] Health [facility] ) Basaglar KwikPen 100 02/21/2019 eCW3 ([place] UNIT/ML 12:00:00 AM [facility] Health Care) Acetaminophen 500 MG Oral 10/06/2018 eC W3 ([place] Tablet 12:00:00 AM [facility]) Diazepam 5 MG Oral Tablet 01/19/2018 eC W2 ([place] 12:00:00 AM [facility] Care) Ibuprofen 600 MG Oral 12/30/2017 eCW3 ( [place] Tablet 12:00:00 AM [facility] Care) Ibuprofen 600 MG Oral 12/30/2017 eCW3 ( [place] Tablet 12:00:00 AM [facility] Care) Ibuprofen 600 MG Oral 12/30/2017 eCW3 ( [place] Tablet 12:00:00 AM [facility] Care) Metformin hydrochloride 500 12/16/2017 eCW3 ([place] MG Oral Tablet 12:00:00 AM [facility] Car e) Metformin hydrochloride 500 12/16/2017 eCW3 ([place] MG Oral Tablet 12:00:00 AM [facility] Health Car e) ALBUTEROL SULFATE 0.083% 07/08/2016 eCW 3 ([place] 2.5 mg/3 ml 12:00:00 AM [facility] Care) Glucose Test Strips 07/08/2016 eCW3 ([place] Compatiable with Patients 12:00:00 AM [facility]) Machine Glucose Test Strips 07/08/2016 eCW3 ( [place] Compatiable with Patients 12:00:00 AM [facility]) Machine Glucose Test Strips 07/08/2016 eCW3 ( [place] Compatiable with Patients 12:00:00 AM [facility]) Machine ALBUTEROL SULFATE 0.083% 07/08/2016 eCW 3 ([place] 2.5 mg/3 ml 12:00:00 AM [facility]) 3 ML Insulin, Aspart, Human 09/11/2014 eCW3 ([place] 100 UNT/ML Pen Injector 12:00:00 AM [facility]) [NovoLog] Digoxin 0.25 MG Oral Tablet 09/11/2014 eCW3 ([place] 12:00:00 AM [facility]) Digoxin 0.25 MG Oral Tablet 09/11/2014 eCW3 ([place] 12:00:00 AM [facility]) Furosemide 40 MG Oral 08/07/2014 eCW3 ( [place] Tablet 12:00:00 AM [facility]) Furosemide 40 MG Oral 08/07/2014 eCW3 ( [place] Tablet 12:00:00 AM [facility]) Furosemide 40 MG Oral 08/07/2014 eCW3 ( [place] Tablet 12:00:00 AM [facility]) Furosemide 40 MG Oral 08/07/2014 eCW3 ( [place] Tablet 12:00:00 AM [facility]) Furosemide 40 MG Oral 08/07/2014 eCW3 ( [place] Tablet 12:00:00 AM [facility]) Furosemide 40 MG Oral 08/07/2014 eCW3 ( [place] Tablet 12:00:00 AM [facility]) Simvastatin 20 MG Oral 10/18/2013 eCW3 ([place] Tablet 12:00:00 AM [facility]) 3 ML liraglutide 6 MG/ML eCW 3 ([place] Pen Injector [Victoza] [facility]) 3 ML liraglutide 6 MG/ML eCW 3 ([place] Pen Injector [Victoza] [facility]) 3 ML liraglutide 6 MG/ML eCW 3 ([place] Pen Injector [Victoza] [facility]) 3 ML liraglutide 6 MG/ML eCW 3 ([employer] Pen Injector [Victoza] [facility]) gabapentin 300 MG Oral eCW3 ([employer] Capsule [facility]) Losartan Potassium 50 MG eCW 3 ([employer] Oral Tablet [facility]) carvedilol 3.125 MG Oral eCW 3 ([employer] Tablet [facility]) 60 ACTUAT Fluticasone eCW3 ( [employer] propionate 0.5 MG/ACTUAT / H ealt Care) salmeterol 0.05 MG/ACTUAT Dry Powder Inhaler [Advair] Spironolactone 25 MG Oral eC W3 ([employer] Tablet [facility]) rivaroxaban 20 MG Oral eCW3 ([employer] Tablet [Xarelto] [facility] ) clopidogrel 75 MG Oral eCW3 ([employer] Tablet [facility]) montelukast 10 MG Oral eCW3 ([employer] Tablet [Singulair] Health [facility]) pantoprazole 20 MG Delayed e CW3 ([employer] Release Oral Tablet Health C are) Omeprazole 20 MG Delayed eCW 3 ([employer] Release Oral Capsule [facility])
[2020-01-20 15:50] LABS: BASO % 2.2 % (0-2.0); EOS % 2.9 % (0-4.5); HEMATOCRIT 34.1 % (32.4-45.2); HEMOGLOBIN 11.2 GM/dL (10.7-15.3); LYMPH % 15.7 % (8-40); MCH 28.8 pg (25.7-33.7); MCHC 32.8 g/dl (32.0-36.0); MEAN CELL VOLUME 87.7 fl (80-96); MEAN PLT VOLUME 8.2 fl (7.5-11.1); MONO % 9.3 % (3.8-10.2); NEUT % 69.9 % (42.8-82.8); PLATELET COUNT 633 K/MM3 (134-434); RBC 3.88 M/mm3 (3.60-5.2); WHITE BLOOD COUNT 6.6 K/mm3 (4.0-10.0)
[2020-01-20 15:56] LABS: INR 1.06 (0.83-1.09); PROTHROMBIN TIME (PATIENT) 12.5 SEC (9.7-13.0)
[2020-01-20 15:59] LABS: ACTIVATED PTT 33.1 SECONDS (25.2-36.5)
[2020-01-20 16:17] LABS: POTASSIUM 4.3 mmol/L (3.5-5.1)
[2020-01-20 16:21] LABS: ALBUMIN 2.7 g/dl (3.4-5.0); CALCIUM 8.9 mg/dL (8.5-10.1)
[2020-01-20 16:26] LABS: BILIRUBIN,TOTAL 1.2 mg/dL (0.2-1); BLOOD UREA NITROGEN 10.7 mg/dL (7-18); CREATININE 0.9 mg/dL (0.55-1.3); TOT PROT 7.7 g/dl (6.4-8.2)
== END 2020-01-20 16:51 | disposition left against medical advice (07) ==
LOC: JER 13:14
DX: D64.9 Anemia, unspecified (principal)
CPT/HCPCS: 36415; 80053; 84484; 85025; 85610; 85730; 86850; 86900; 86901; 99284-25

== ENCOUNTER 2020-03-04 19:53 | Inpatient (IN) | payer OTHER ==
[2020-03-04] MEDS ORDERED: ALPRAZolam 1 MG TABLET PO PRN (21:00)
[2020-03-04] MEDS ORDERED: ALPRAZolam 0.25 MG TABLET ONE (21:41)
[2020-03-04] MEDS: ALPRAZolam 1 MG TABLET PO PRN (21:44)
[2020-03-04 23:06] LABS: BASO % 0.5 % (0-2.0); EOS % 2.2 % (0-4.5); HEMATOCRIT 29.8 % (32.4-45.2); HEMOGLOBIN 8.9 GM/dL (10.7-15.3); LYMPH % 25.7 % (8-40); MCH 22.1 pg (25.7-33.7); MCHC 29.8 g/dl (32.0-36.0); MEAN CELL VOLUME 74.1 fl (80-96); MEAN PLT VOLUME 8.8 fl (7.5-11.1); MONO % 10.3 % (3.8-10.2); NEUT % 61.3 % (42.8-82.8); PLATELET COUNT 352 K/MM3 (134-434); RBC 4.02 M/mm3 (3.60-5.2); RDW 21.3 % (11.6-15.6); WHITE BLOOD COUNT 5.2 K/mm3 (4.0-10.0)
[2020-03-04 23:14] LABS: INR 1.88 (0.83-1.09); PROTHROMBIN TIME (PATIENT) 22.3 SEC (9.7-13.0)
[2020-03-04 23:17] LABS: ACTIVATED PTT 31.7 SECONDS (25.2-36.5)
[2020-03-04 23:28] LABS: CHLORIDE 101 mmol/L (98-107); POTASSIUM 3.9 mmol/L (3.5-5.1); SODIUM 137 mmol/L (136-145)
[2020-03-04 23:31] LABS: ALBUMIN 3.2 g/dl (3.4-5.0); ANION GAP 8 MMOL/L (8-16); BLOOD UREA NITROGEN 18.3 mg/dL (7-18); CALCIUM 8.9 mg/dL (8.5-10.1); CO2 28 mmol/L (21-32); GLUCOSE,RANDOM 274 mg/dL (74-106)
[2020-03-04 23:34] LABS: CREATININE 1.2 mg/dL (0.55-1.3); SGOT/AST 36 U/L (15-37); SGPT/ALT 23 U/L (13-61)
[2020-03-04 23:35] LABS: ANISOCYTOSIS 2+; PLATELET ESTIMATE ADEQUATE
[2020-03-04 23:36] LABS: BILIRUBIN,TOTAL 1.3 mg/dL (0.2-1); TOT PROT 7.8 g/dl (6.4-8.2)
[2020-03-04 23:38] LABS: ALK PHOS 248 U/L (45-117)
[2020-03-04] MEDS ORDERED: FUROSEMIDE 40 MG/4 ML INJECTABLE VIAL IVPUSH ONE (23:53)
[2020-03-05] MEDS ORDERED: FUROSEMIDE 40 MG/4 ML INJECTABLE VIAL ONE ×2 (00:31→15:19)
[2020-03-05] MEDS ORDERED: ALBUTEROL SO4 HFA INHALER IH PRN (02:09)
[2020-03-05] MEDS ORDERED: LORATADINE 10 MG TABLET PO PRN (02:09)
[2020-03-05] MEDS ORDERED: QUEtiapine FUMARATE 25 MG TABLET ONE (03:18)
[2020-03-05] MEDS: QUEtiapine FUMARATE 50 MG TABLET PO SCH ×4 (03:21→23:53)
[2020-03-05 06:07] LABS: BASO % 2.6 % (0-2.0); HEMATOCRIT 32.5 % (32.4-45.2); HEMOGLOBIN 9.6 GM/dL (10.7-15.3); LYMPH % 30.9 % (8-40); MCH 21.9 pg (25.7-33.7); MCHC 29.6 g/dl (32.0-36.0); MEAN PLT VOLUME 8.3 fl (7.5-11.1); MONO % 12.6 % (3.8-10.2); NEUT % 50.9 % (42.8-82.8); PLATELET COUNT 362 K/MM3 (134-434); RBC 4.39 M/mm3 (3.60-5.2); RDW 21.7 % (11.6-15.6); WHITE BLOOD COUNT 5.1 K/mm3 (4.0-10.0)
[2020-03-05 06:17] LABS: POTASSIUM 3.7 mmol/L (3.5-5.1)
[2020-03-05 06:19] LABS: CALCIUM 9.2 mg/dL (8.5-10.1)
[2020-03-05 06:21] LABS: ALBUMIN 3.4 g/dl (3.4-5.0); BLOOD UREA NITROGEN 18.4 mg/dL (7-18); MAGNESIUM 1.4 mg/dL (1.8-2.4)
[2020-03-05 06:23] LABS: CREATININE 1.2 mg/dL (0.55-1.3)
[2020-03-05 06:25] LABS: BILIRUBIN,TOTAL 1.7 mg/dL (0.2-1); TOT PROT 8.2 g/dl (6.4-8.2)
[2020-03-05] MEDS ORDERED: GABAPENTIN 100 MG CAPSULE ONE (07:00)
[2020-03-05] MEDS: GABAPENTIN 300 MG CAPSULE PO SCH ×3 (07:08→23:46)
[2020-03-05] MEDS: INSULIN SLIDING SCALE (NOVOLOG) 1 VIAL SQ SCH ×4 (07:55→23:46)
[2020-03-05] MEDS ORDERED: MAGNESIUM OXIDE 400 MG TABLET (FP) PO ONE (08:18)
[2020-03-05] MEDS ORDERED: MAGNESIUM SULF 50% (8.12 MEQ/2 ML-1 GM VIAL) IVPB ONE (08:25)
[2020-03-05] MEDS: BUDESONIDE/FORMETEROL FUMARATE 80/4.5 mcg INHALER IH SCH (09:34)
[2020-03-05] MEDS: SACUBITRIL/VALSARTAN 24 MG-26 MG TABLET PO SCH (09:34)
[2020-03-05] MEDS: MINERAL OIL/PET HY-PHL TOPICAL OINTMENT 454 GM JAR TP SCH (09:35)
[2020-03-05] MEDS ORDERED: LORATADINE 10 MG TABLET ONE (09:39)
[2020-03-05] MEDS ORDERED: DIGOXIN 0.125 MG TABLET (FP) ONE (09:39)
[2020-03-05] MEDS ORDERED: FERROUS SO4 325 MG TABLET (FP) ONE (09:39)
[2020-03-05] MEDS ORDERED: DOCUSATE SODIUM 100 MG CAPSULE (FP) PO ONE (09:39)
[2020-03-05] MEDS ORDERED: CARVEDILOL 3.125 MG TABLET (FP) ONE (09:39)
[2020-03-05] MEDS ORDERED: MAGNESIUM OXIDE 400 MG TABLET (FP) ONE (09:39)
[2020-03-05] MEDS ORDERED: MAGNESIUM SULFATE IN WATER 2 GM/50 ML IVPB IVPB ONE (09:40)
[2020-03-05] MEDS ORDERED: SPIRONOLACTONE 25 MG TABLET ONE (09:40)
[2020-03-05] MEDS: LORATADINE 10 MG TABLET PO SCH (09:49)
[2020-03-05] MEDS: SPIRONOLACTONE 25 MG TABLET PO SCH (09:49)
[2020-03-05] MEDS: FERROUS SO4 325 MG TABLET (FP) PO SCH ×2 (09:49→23:42)
[2020-03-05] MEDS: DOCUSATE SODIUM 100 MG CAPSULE (FP) PO SCH ×2 (09:49→23:46)
[2020-03-05] MEDS: DIGOXIN 0.25 MG TABLET (FP) PO SCH (09:49)
[2020-03-05] MEDS ORDERED: DOCUSATE SODIUM 100 MG CAPSULE (FP) PO SCH (10:00)
[2020-03-05] MEDS ORDERED: CARVEDILOL 3.125 MG TABLET (FP) PO SCH (10:00)
[2020-03-05] MEDS ORDERED: FUROSEMIDE 40 MG/4 ML INJECTABLE VIAL IVPUSH SCH (10:00)
[2020-03-05] MEDS ORDERED: SERTRALINE HCL 25 MG TABLET (FP) PO SCH (10:00)
[2020-03-05 13:54] LABS: METHADONE, UR NEGATIVE ng/ml (CUTOFF=300); PHENCYCLIDINE,URINE NEGATIVE ng/ml (CUTOFF=25)
[2020-03-05 13:59] LABS: URINE AMPHETAMINES NEGATIVE ng/ml (CUTOFF=500); URINE BARBITURATES NEGATIVE ng/ml (CUTOFF=200)
[2020-03-05 14:00] LABS: EPI CELLS 25 /uL (0-25.1); HYALINE CASTS 1 /uL (0-3.1); URINE APPEARANCE CLEAR; URINE BACTERIA 193 /uL (0-1359); URINE BILIRUBIN NEGATIVE (NEGATIVE); URINE COLOR YELLOW; URINE GLUCOSE (UA) NEGATIVE (NEGATIVE); URINE KETONE TRACE (NEGATIVE); URINE LEUK ESTERASE NEGATIVE (NEGATIVE); URINE NITRITE NEGATIVE (NEGATIVE); URINE PROTEIN NEGATIVE (NEGATIVE); URINE RBC 13 /uL (0-23.9); URINE UROBILINOGEN 0.2 mg/dL (0.2-1.0); URINE WBC 11 /uL (0-25.8)
[2020-03-05 14:36] LABS: COCAINE, UR POSITIVE ng/ml (CUTOFF=300); OPIATES, URI POSITIVE ng/ml (CUTOFF=300); URINE BENZODIAZEPINES POSITIVE ng/ml (CUTOFF=200)
[2020-03-05] MEDS: FUROSEMIDE 40 MG/4 ML INJECTABLE VIAL IVPUSH SCH (15:22)
[2020-03-05] MEDS ORDERED: PATIENT'S OWN MEDICATION (NON-FORMULARY) (Ipratropium/Albuterol Sulfate 1 PUFF Inhaler) IH SCH (15:30)
[2020-03-05] MEDS: FOLIC ACID 1 MG TABLET (FP) PO SCH (16:31)
[2020-03-05] MEDS ORDERED: INSULIN (LEVEMIR) 100 UNITS/ML UNITS SQ SCH (22:00)
[2020-03-05] MEDS ORDERED: ATORVASTATIN CA 10 MG TABLET (FP) PO SCH (22:00)
[2020-03-05] MEDS: ATORVASTATIN CA 10 MG TABLET (FP) PO SCH (23:41)
[2020-03-05] MEDS: CARVEDILOL 3.125 MG TABLET (FP) PO SCH (23:42)
[2020-03-05] MEDS: MONTELUKAST NA 10 MG TABLET PO SCH (23:42)
[2020-03-05] MEDS: INSULIN (LEVEMIR) 100 UNITS/ML UNITS SQ SCH (23:47)
[2020-03-06] MEDS ORDERED: BACITRACIN 15 GM TUBE TOPICAL OINTMENT TP ONE
[2020-03-06] MEDS: BUDESONIDE/FORMETEROL FUMARATE 80/4.5 mcg INHALER IH SCH ×3 (00:19→21:51)
[2020-03-06] MEDS: SACUBITRIL/VALSARTAN 24 MG-26 MG TABLET PO SCH ×3 (00:19→21:55)
[2020-03-06 02:44] VITALS: BMI 37.5
[2020-03-06] MEDS: INSULIN SLIDING SCALE (NOVOLOG) 1 VIAL SQ SCH ×4 (06:42→22:07)
[2020-03-06] MEDS: GABAPENTIN 300 MG CAPSULE PO SCH ×3 (06:42→21:55)
[2020-03-06] MEDS: FUROSEMIDE 40 MG/4 ML INJECTABLE VIAL IVPUSH SCH ×2 (06:42→13:52)
[2020-03-06 07:25] LABS: HEMATOCRIT 27.9 % (32.4-45.2); HEMOGLOBIN 8.3 GM/dL (10.7-15.3); LYMPH % 22.4 % (8-40); MCH 21.6 pg (25.7-33.7); MCHC 29.7 g/dl (32.0-36.0); MEAN CELL VOLUME 72.7 fl (80-96); MEAN PLT VOLUME 8.7 fl (7.5-11.1); MONO % 11.1 % (3.8-10.2); NEUT % 61.5 % (42.8-82.8); PLATELET COUNT 293 K/MM3 (134-434); RBC 3.84 M/mm3 (3.60-5.2); RDW 21.6 % (11.6-15.6); WHITE BLOOD COUNT 4.9 K/mm3 (4.0-10.0)
[2020-03-06 07:37] LABS: POTASSIUM 3.7 mmol/L (3.5-5.1)
[2020-03-06 08:10] LABS: ALBUMIN 2.5 g/dl (3.4-5.0); BLOOD UREA NITROGEN 18.5 mg/dL (7-18); CALCIUM 8.1 mg/dL (8.5-10.1)
[2020-03-06 08:11] LABS: MAGNESIUM 1.3 mg/dL (1.8-2.4)
[2020-03-06 08:12] LABS: CREATININE 1.1 mg/dL (0.55-1.3); PHOSPHOROUS 2.8 mg/dL (2.5-4.9)
[2020-03-06 08:14] LABS: TOT PROT 6.2 g/dl (6.4-8.2)
[2020-03-06] MEDS ORDERED: MAGNESIUM 2GM/50ML STERILE WATER IVPB IVPB ONE (09:19)
[2020-03-06] MEDS: FOLIC ACID 1 MG TABLET (FP) PO SCH (09:35)
[2020-03-06] MEDS: SPIRONOLACTONE 25 MG TABLET PO SCH (09:35)
[2020-03-06] MEDS: LORATADINE 10 MG TABLET PO SCH (09:35)
[2020-03-06] MEDS: FERROUS SO4 325 MG TABLET (FP) PO SCH ×2 (09:35→22:08)
[2020-03-06] MEDS: DIGOXIN 0.25 MG TABLET (FP) PO SCH (09:36)
[2020-03-06] MEDS: CARVEDILOL 3.125 MG TABLET (FP) PO SCH ×2 (09:36→21:54)
[2020-03-06] MEDS: PANTOPRAZOLE 20 MG TABLET PO SCH (09:37)
[2020-03-06] MEDS: INSULIN (LEVEMIR) 100 UNITS/ML UNITS SQ SCH ×2 (09:37→22:06)
[2020-03-06] MEDS: DOCUSATE SODIUM 100 MG CAPSULE (FP) PO SCH ×2 (09:37→21:50)
[2020-03-06] MEDS: MINERAL OIL/PET HY-PHL TOPICAL OINTMENT 454 GM JAR TP SCH (09:38)
[2020-03-06] MEDS ORDERED: MAGNESIUM OXIDE 400 MG TABLET (FP) PO ONE (09:45)
[2020-03-06] MEDS ORDERED: SODIUM PHOSPHATE - 15 MM in SODIUM CHLORIDE 250 ML IVPB ONE (11:00)
[2020-03-06] MEDS: QUEtiapine FUMARATE 50 MG TABLET PO SCH (21:50)
[2020-03-06] MEDS: MONTELUKAST NA 10 MG TABLET PO SCH (21:50)
[2020-03-06] MEDS: ATORVASTATIN CA 10 MG TABLET (FP) PO SCH (21:54)
[2020-03-07] MEDS: FUROSEMIDE 40 MG/4 ML INJECTABLE VIAL IVPUSH SCH ×2 (05:48→14:15)
[2020-03-07] MEDS: GABAPENTIN 300 MG CAPSULE PO SCH ×3 (05:48→22:16)
[2020-03-07] MEDS: INSULIN SLIDING SCALE (NOVOLOG) 1 VIAL SQ SCH ×4 (06:19→22:25)
[2020-03-07] MEDS: INSULIN (LEVEMIR) 100 UNITS/ML UNITS SQ SCH ×2 (06:20→22:32)
[2020-03-07 08:32] LABS: BASO % 1.4 % (0-2.0); EOS % 4.5 % (0-4.5); HEMATOCRIT 28.1 % (32.4-45.2); HEMOGLOBIN 8.3 GM/dL (10.7-15.3); LYMPH % 28.1 % (8-40); MCH 21.5 pg (25.7-33.7); MCHC 29.6 g/dl (32.0-36.0); MEAN CELL VOLUME 72.8 fl (80-96); MEAN PLT VOLUME 8.3 fl (7.5-11.1); MONO % 10.8 % (3.8-10.2); NEUT % 55.2 % (42.8-82.8); PLATELET COUNT 301 K/MM3 (134-434); RBC 3.86 M/mm3 (3.60-5.2); RDW 21.6 % (11.6-15.6); WHITE BLOOD COUNT 5.2 K/mm3 (4.0-10.0)
[2020-03-07 08:55] LABS: POTASSIUM 3.4 mmol/L (3.5-5.1)
[2020-03-07 08:57] LABS: ALBUMIN 2.4 g/dl (3.4-5.0); BLOOD UREA NITROGEN 18.2 mg/dL (7-18); CALCIUM 8.4 mg/dL (8.5-10.1); MAGNESIUM 1.7 mg/dL (1.8-2.4)
[2020-03-07] MEDS ORDERED: PT OWN MED DRAWER 7, Y5N ONE ×2 (08:59→22:30)
[2020-03-07 09:01] LABS: CREATININE 1.1 mg/dL (0.55-1.3); PHOSPHOROUS 3.2 mg/dL (2.5-4.9)
[2020-03-07 09:03] LABS: BILIRUBIN,TOTAL 0.6 mg/dL (0.2-1); TOT PROT 6.1 g/dl (6.4-8.2)
[2020-03-07] MEDS ORDERED: MAGNESIUM SULF 50% (8.12 MEQ/2 ML-1 GM VIAL) IVPB ONE ×2 (09:31→22:26)
[2020-03-07] MEDS: DIGOXIN 0.25 MG TABLET (FP) PO SCH (09:59)
[2020-03-07] MEDS: FERROUS SO4 325 MG TABLET (FP) PO SCH ×2 (09:59→22:17)
[2020-03-07] MEDS ORDERED: POTASSIUM CHLORIDE TABS 20 MEQ TABLET.ER (FP) PO SCH (10:00)
[2020-03-07] MEDS ORDERED: ERGOCALCIFEROL (VIT D2) 50,000 UNIT (1.25 MG) CAPSULE PO SCH (10:00)
[2020-03-07] MEDS: MAGNESIUM OXIDE 400 MG TABLET (FP) PO SCH ×2 (10:01→22:17)
[2020-03-07] MEDS: PANTOPRAZOLE 20 MG TABLET PO SCH (10:01)
[2020-03-07] MEDS: LORATADINE 10 MG TABLET PO SCH (10:02)
[2020-03-07] MEDS: SACUBITRIL/VALSARTAN 24 MG-26 MG TABLET PO SCH ×2 (10:02→22:25)
[2020-03-07] MEDS: BUDESONIDE/FORMETEROL FUMARATE 80/4.5 mcg INHALER IH SCH (10:02)
[2020-03-07] MEDS: ALPRAZolam 1 MG TABLET PO PRN (10:02)
[2020-03-07] MEDS: FOLIC ACID 1 MG TABLET (FP) PO SCH (10:02)
[2020-03-07] MEDS: SPIRONOLACTONE 25 MG TABLET PO SCH (10:03)
[2020-03-07] MEDS: CARVEDILOL 3.125 MG TABLET (FP) PO SCH ×2 (10:03→22:23)
[2020-03-07] MEDS: DOCUSATE SODIUM 100 MG CAPSULE (FP) PO SCH ×2 (10:03→22:18)
[2020-03-07] MEDS: MINERAL OIL/PET HY-PHL TOPICAL OINTMENT 454 GM JAR TP SCH (12:15)
[2020-03-07] MEDS: POTASSIUM CHLORIDE TABS 20 MEQ TABLET.ER (FP) PO SCH (22:17)
[2020-03-07] MEDS: QUEtiapine FUMARATE 50 MG TABLET PO SCH (22:17)
[2020-03-07] MEDS: ATORVASTATIN CA 10 MG TABLET (FP) PO SCH (22:18)
[2020-03-07] MEDS: MONTELUKAST NA 10 MG TABLET PO SCH (22:18)
[2020-03-08] MEDS: BUDESONIDE/FORMETEROL FUMARATE 80/4.5 mcg INHALER IH SCH ×3 (01:23→22:24)
[2020-03-08] MEDS: FUROSEMIDE 40 MG/4 ML INJECTABLE VIAL IVPUSH SCH ×2 (06:37→14:48)
[2020-03-08] MEDS: GABAPENTIN 300 MG CAPSULE PO SCH ×3 (06:38→22:18)
[2020-03-08] MEDS: INSULIN (LEVEMIR) 100 UNITS/ML UNITS SQ SCH ×2 (06:44→22:23)
[2020-03-08] MEDS: INSULIN SLIDING SCALE (NOVOLOG) 1 VIAL SQ SCH ×4 (06:44→22:50)
[2020-03-08 06:45] LABS: BASO % 1.4 % (0-2.0); EOS % 4.2 % (0-4.5); HEMATOCRIT 28.7 % (32.4-45.2); HEMOGLOBIN 8.4 GM/dL (10.7-15.3); LYMPH % 23.6 % (8-40); MCH 21.4 pg (25.7-33.7); MCHC 29.1 g/dl (32.0-36.0); MEAN CELL VOLUME 73.4 fl (80-96); MEAN PLT VOLUME 8.4 fl (7.5-11.1); MONO % 10.9 % (3.8-10.2); NEUT % 59.9 % (42.8-82.8); PLATELET COUNT 301 K/MM3 (134-434); RBC 3.91 M/mm3 (3.60-5.2); RDW 22.2 % (11.6-15.6); WHITE BLOOD COUNT 5.3 K/mm3 (4.0-10.0)
[2020-03-08 07:20] LABS: POTASSIUM 4.3 mmol/L (3.5-5.1)
[2020-03-08 07:21] LABS: CALCIUM 8.2 mg/dL (8.5-10.1)
[2020-03-08 07:22] LABS: BLOOD UREA NITROGEN 18.1 mg/dL (7-18); MAGNESIUM 1.7 mg/dL (1.8-2.4)
[2020-03-08 07:25] LABS: CREATININE 1.1 mg/dL (0.55-1.3); PHOSPHOROUS 2.5 mg/dL (2.5-4.9)
[2020-03-08 09:12] LABS: ANISOCYTOSIS 3+; OVALOCYTE 1+; PLATELET ESTIMATE NORMAL; TARGET CELLS 1+
[2020-03-08] MEDS ORDERED: MAGNESIUM SULF 50% (8.12 MEQ/2 ML-1 GM VIAL) IVPB ONE (09:50)
[2020-03-08] MEDS ORDERED: MAGNESIUM 1GM/D5W - 1 GM/100 ML IVPB IVPB ONE (10:00)
[2020-03-08] MEDS: POTASSIUM CHLORIDE TABS 20 MEQ TABLET.ER (FP) PO SCH ×2 (10:43→22:18)
[2020-03-08] MEDS: DIGOXIN 0.25 MG TABLET (FP) PO SCH (10:43)
[2020-03-08] MEDS: MAGNESIUM OXIDE 400 MG TABLET (FP) PO SCH ×2 (10:44→22:21)
[2020-03-08] MEDS: CARVEDILOL 3.125 MG TABLET (FP) PO SCH ×2 (10:44→22:19)
[2020-03-08] MEDS: FERROUS SO4 325 MG TABLET (FP) PO SCH ×2 (10:44→22:22)
[2020-03-08] MEDS: PANTOPRAZOLE 20 MG TABLET PO SCH (10:45)
[2020-03-08] MEDS: SPIRONOLACTONE 25 MG TABLET PO SCH (10:45)
[2020-03-08] MEDS: MINERAL OIL/PET HY-PHL TOPICAL OINTMENT 454 GM JAR TP SCH (10:45)
[2020-03-08] MEDS: DOCUSATE SODIUM 100 MG CAPSULE (FP) PO SCH ×2 (10:46→22:25)
[2020-03-08] MEDS: LORATADINE 10 MG TABLET PO SCH (10:46)
[2020-03-08] MEDS: FOLIC ACID 1 MG TABLET (FP) PO SCH (10:47)
[2020-03-08] MEDS ORDERED: PT OWN MED DRAWER 7, Y5N ONE ×2 (10:48→20:20)
[2020-03-08] MEDS: SACUBITRIL/VALSARTAN 24 MG-26 MG TABLET PO SCH ×2 (10:49→22:16)
[2020-03-08] MEDS: ASPIRIN COATED 81 MG TABLET.EC PO SCH (12:02)
[2020-03-08] MEDS: PANTOPRAZOLE 40 MG TABLET PO SCH (12:02)
[2020-03-08] MEDS ORDERED: METOLAZONE 2.5 MG TABLET (FP) PO ONE (13:00)
[2020-03-08 18:04] LABS: CALCIUM 8.8 mg/dL (8.5-10.1); POTASSIUM 4.8 mmol/L (3.5-5.1)
[2020-03-08 18:05] LABS: BLOOD UREA NITROGEN 18.4 mg/dL (7-18)
[2020-03-08 18:08] LABS: CREATININE 1.1 mg/dL (0.55-1.3)
[2020-03-08] MEDS: MONTELUKAST NA 10 MG TABLET PO SCH (22:19)
[2020-03-08] MEDS: ATORVASTATIN CA 10 MG TABLET (FP) PO SCH (22:20)
[2020-03-08] MEDS: QUEtiapine FUMARATE 50 MG TABLET PO SCH (22:22)
[2020-03-09] MEDS: GABAPENTIN 300 MG CAPSULE PO SCH ×3 (05:42→22:14)
[2020-03-09] MEDS: FUROSEMIDE 40 MG/4 ML INJECTABLE VIAL IVPUSH SCH (05:42)
[2020-03-09] MEDS: INSULIN (LEVEMIR) 100 UNITS/ML UNITS SQ SCH ×2 (06:01→22:18)
[2020-03-09] MEDS: INSULIN SLIDING SCALE (NOVOLOG) 1 VIAL SQ SCH ×4 (06:02→22:15)
[2020-03-09] MEDS ORDERED: INSULIN (NOVOLOG) ASPART 100 UNITS/ML 10ML VIAL ONE (09:05)
[2020-03-09] MEDS: BUDESONIDE/FORMETEROL FUMARATE 80/4.5 mcg INHALER IH SCH ×2 (09:21→22:15)
[2020-03-09] MEDS: PANTOPRAZOLE 40 MG TABLET PO SCH (09:22)
[2020-03-09] MEDS: SPIRONOLACTONE 25 MG TABLET PO SCH (09:22)
[2020-03-09] MEDS: LORATADINE 10 MG TABLET PO SCH (09:22)
[2020-03-09] MEDS: DIGOXIN 0.25 MG TABLET (FP) PO SCH (09:22)
[2020-03-09] MEDS: FERROUS SO4 325 MG TABLET (FP) PO SCH ×2 (09:23→22:14)
[2020-03-09] MEDS: POTASSIUM CHLORIDE TABS 20 MEQ TABLET.ER (FP) PO SCH ×2 (09:23→22:14)
[2020-03-09] MEDS: FOLIC ACID 1 MG TABLET (FP) PO SCH (09:23)
[2020-03-09] MEDS: CARVEDILOL 3.125 MG TABLET (FP) PO SCH ×2 (09:23→22:14)
[2020-03-09] MEDS: MAGNESIUM OXIDE 400 MG TABLET (FP) PO SCH ×2 (09:23→22:14)
[2020-03-09] MEDS: DOCUSATE SODIUM 100 MG CAPSULE (FP) PO SCH ×2 (09:24→23:23)
[2020-03-09] MEDS: ASPIRIN COATED 81 MG TABLET.EC PO SCH (09:25)
[2020-03-09] MEDS: SACUBITRIL/VALSARTAN 24 MG-26 MG TABLET PO SCH ×2 (09:42→22:19)
[2020-03-09] MEDS ORDERED: ALBUTEROL SO4 2.5/IPRATROPIUM 0.5 INH SOL 3 ML VIAL.NEB. NEB ONE (10:23)
[2020-03-09] MEDS: APIXABAN 5 MG TABLET PO SCH ×2 (10:37→22:14)
[2020-03-09] MEDS: BENZOCAINE/MENTH/CETYLPYRD CL 1 EACH LOZENGE MM PRN (10:38)
[2020-03-09 11:08] LABS: BASO % 3.3 % (0-2.0); EOS % 3.6 % (0-4.5); HEMATOCRIT 33.6 % (32.4-45.2); HEMOGLOBIN 9.8 GM/dL (10.7-15.3); MCH 21.6 pg (25.7-33.7); MCHC 29.1 g/dl (32.0-36.0); MEAN CELL VOLUME 74.4 fl (80-96); MEAN PLT VOLUME 8.6 fl (7.5-11.1); MONO % 10.8 % (3.8-10.2); NEUT % 58.3 % (42.8-82.8); PLATELET COUNT 333 K/MM3 (134-434); RBC 4.52 M/mm3 (3.60-5.2); RDW 22.3 % (11.6-15.6); WHITE BLOOD COUNT 7.2 K/mm3 (4.0-10.0)
[2020-03-09 11:31] LABS: POTASSIUM 4.9 mmol/L (3.5-5.1)
[2020-03-09 11:33] LABS: CALCIUM 9.3 mg/dL (8.5-10.1)
[2020-03-09 11:34] LABS: BLOOD UREA NITROGEN 19.5 mg/dL (7-18); MAGNESIUM 1.7 mg/dL (1.8-2.4)
[2020-03-09 11:37] LABS: CREATININE 1.1 mg/dL (0.55-1.3); PHOSPHOROUS 2.3 mg/dL (2.5-4.9)
[2020-03-09 11:38] LABS: BILIRUBIN,TOTAL 0.6 mg/dL (0.2-1); TOT PROT 7.4 g/dl (6.4-8.2)
[2020-03-09] MEDS ORDERED: NAPH,MB-DB/K PH,MBDB POWDER PACKET PO ONE (12:39)
[2020-03-09] MEDS ORDERED: MAGNESIUM 1GM/D5W - 1 GM/100 ML IVPB IVPB ONE (12:39)
[2020-03-09] MEDS: MINERAL OIL/PET HY-PHL TOPICAL OINTMENT 454 GM JAR TP SCH (13:58)
[2020-03-09] MEDS ORDERED: MAGNESIUM OXIDE 400 MG TABLET (FP) PO ONE (14:23)
[2020-03-09] MEDS ORDERED: PT OWN MED DRAWER 7, Y5N ONE (21:43)
[2020-03-09] MEDS: MONTELUKAST NA 10 MG TABLET PO SCH (22:14)
[2020-03-09] MEDS: QUEtiapine FUMARATE 50 MG TABLET PO SCH (22:14)
[2020-03-09] MEDS: ATORVASTATIN CA 10 MG TABLET (FP) PO SCH (22:17)
[2020-03-10] MEDS: BENZOCAINE/MENTH/CETYLPYRD CL 1 EACH LOZENGE MM PRN (04:11)
[2020-03-10] MEDS: GABAPENTIN 300 MG CAPSULE PO SCH ×3 (06:39→22:17)
[2020-03-10] MEDS: INSULIN SLIDING SCALE (NOVOLOG) 1 VIAL SQ SCH ×4 (06:40→22:40)
[2020-03-10] MEDS: INSULIN (LEVEMIR) 100 UNITS/ML UNITS SQ SCH ×2 (06:44→22:19)
[2020-03-10 07:29] LABS: HEMATOCRIT 31.9 % (32.4-45.2); HEMOGLOBIN 9.2 GM/dL (10.7-15.3); MCH 21.9 pg (25.7-33.7); MCHC 28.9 g/dl (32.0-36.0); MEAN CELL VOLUME 75.7 fl (80-96); MEAN PLT VOLUME 9.1 fl (7.5-11.1); PLATELET COUNT 267 K/MM3 (134-434); RBC 4.22 M/mm3 (3.60-5.2); RDW 22.3 % (11.6-15.6); WHITE BLOOD COUNT 6.7 K/mm3 (4.0-10.0)
[2020-03-10 07:56] LABS: POTASSIUM 5.7 mmol/L (3.5-5.1)
[2020-03-10 08:01] LABS: CALCIUM 9.2 mg/dL (8.5-10.1)
[2020-03-10 08:02] LABS: BLOOD UREA NITROGEN 21.5 mg/dL (7-18); MAGNESIUM 1.9 mg/dL (1.8-2.4)
[2020-03-10 08:05] LABS: CREATININE 1.3 mg/dL (0.55-1.3); PHOSPHOROUS 2.6 mg/dL (2.5-4.9)
[2020-03-10] MEDS ORDERED: INSULIN REGULAR HUMAN 100 UNITS/ML *VIAL IVPUSH ONE (08:13)
[2020-03-10] MEDS ORDERED: CALCIUM GLUCONATE 10% - 1,000 MG/10 ML VIAL IVPUSH ONE (08:13)
[2020-03-10] MEDS ORDERED: DEXTROSE 50%-WATER - 25 GM/50 ML VIAL IVPUSH ONE (08:14)
[2020-03-10] MEDS ORDERED: PT OWN MED DRAWER 7, Y5N ONE (09:43)
[2020-03-10] MEDS ORDERED: DEXTROSE 50%-WATER 25 GM/50 ML DISP.SYRIN IVPUSH ONE (09:45)
[2020-03-10] MEDS ORDERED: DEXTROSE 50%-WATER 25 GM/50 ML DISP.SYRIN ONE (09:48)
[2020-03-10] MEDS: MINERAL OIL/PET HY-PHL TOPICAL OINTMENT 454 GM JAR TP SCH (09:57)
[2020-03-10] MEDS: SPIRONOLACTONE 25 MG TABLET PO SCH (09:57)
[2020-03-10] MEDS: LORATADINE 10 MG TABLET PO SCH (09:57)
[2020-03-10] MEDS: CARVEDILOL 3.125 MG TABLET (FP) PO SCH ×2 (09:57→22:18)
[2020-03-10] MEDS: DOCUSATE SODIUM 100 MG CAPSULE (FP) PO SCH ×2 (09:57→22:19)
[2020-03-10] MEDS: FOLIC ACID 1 MG TABLET (FP) PO SCH (09:58)
[2020-03-10] MEDS: FERROUS SO4 325 MG TABLET (FP) PO SCH ×2 (09:58→22:17)
[2020-03-10] MEDS: APIXABAN 5 MG TABLET PO SCH ×2 (09:58→22:18)
[2020-03-10] MEDS: SACUBITRIL/VALSARTAN 24 MG-26 MG TABLET PO SCH ×2 (09:58→22:20)
[2020-03-10] MEDS: FUROSEMIDE 40 MG TABLET (FP) PO SCH (10:00)
[2020-03-10] MEDS: DIGOXIN 0.25 MG TABLET (FP) PO SCH (10:00)
[2020-03-10] MEDS: MAGNESIUM OXIDE 400 MG TABLET (FP) PO SCH ×2 (10:00→22:18)
[2020-03-10] MEDS: PANTOPRAZOLE 40 MG TABLET PO SCH (10:01)
[2020-03-10] MEDS: BUDESONIDE/FORMETEROL FUMARATE 80/4.5 mcg INHALER IH SCH ×2 (10:01→22:18)
[2020-03-10] MEDS ORDERED: ALBUTEROL SO4 2.5/IPRATROPIUM 0.5 INH SOL 3 ML VIAL.NEB. NEB PRN (10:54)
[2020-03-10] MEDS: SODIUM ZIRCONIUM CYCLOSILICATE (LOKELMA) 5 GM PACKET PO SCH (13:27)
[2020-03-10] MEDS: ATORVASTATIN CA 10 MG TABLET (FP) PO SCH (22:17)
[2020-03-10] MEDS: MONTELUKAST NA 10 MG TABLET PO SCH (22:17)
[2020-03-10] MEDS: QUEtiapine FUMARATE 50 MG TABLET PO SCH (22:18)
[2020-03-11] MEDS: GABAPENTIN 300 MG CAPSULE PO SCH ×2 (06:56→13:26)
[2020-03-11] MEDS: INSULIN SLIDING SCALE (NOVOLOG) 1 VIAL SQ SCH ×3 (06:56→17:29)
[2020-03-11] MEDS: INSULIN (LEVEMIR) 100 UNITS/ML UNITS SQ SCH (06:56)
[2020-03-11 07:05] LABS: BASO % 2.4 % (0-2.0); EOS % 3.2 % (0-4.5); HEMATOCRIT 29.7 % (32.4-45.2); LYMPH % 20.9 % (8-40); MCH 22.7 pg (25.7-33.7); MCHC 30.2 g/dl (32.0-36.0); MEAN CELL VOLUME 75.3 fl (80-96); MONO % 11.4 % (3.8-10.2); NEUT % 62.1 % (42.8-82.8); PLATELET COUNT 263 K/MM3 (134-434); RBC 3.95 M/mm3 (3.60-5.2); RDW 22.4 % (11.6-15.6); WHITE BLOOD COUNT 6.9 K/mm3 (4.0-10.0)
[2020-03-11 07:26] LABS: POTASSIUM 4.6 mmol/L (3.5-5.1)
[2020-03-11 07:37] LABS: ALBUMIN 2.7 g/dl (3.4-5.0); BLOOD UREA NITROGEN 20.1 mg/dL (7-18); MAGNESIUM 1.7 mg/dL (1.8-2.4)
[2020-03-11 07:40] LABS: CREATININE 1.2 mg/dL (0.55-1.3)
[2020-03-11 07:41] LABS: BILIRUBIN,TOTAL 0.5 mg/dL (0.2-1); TOT PROT 6.5 g/dl (6.4-8.2)
[2020-03-11] MEDS ORDERED: MAGNESIUM SULF 50% (8.12 MEQ/2 ML-1 GM VIAL) IVPB ONE (08:22)
[2020-03-11] MEDS: SACUBITRIL/VALSARTAN 24 MG-26 MG TABLET PO SCH (09:54)
[2020-03-11] MEDS: FUROSEMIDE 40 MG TABLET (FP) PO SCH (09:54)
[2020-03-11] MEDS: FOLIC ACID 1 MG TABLET (FP) PO SCH (09:55)
[2020-03-11] MEDS: APIXABAN 5 MG TABLET PO SCH (09:55)
[2020-03-11] MEDS: DOCUSATE SODIUM 100 MG CAPSULE (FP) PO SCH (09:55)
[2020-03-11] MEDS: PANTOPRAZOLE 40 MG TABLET PO SCH (09:55)
[2020-03-11] MEDS: FERROUS SO4 325 MG TABLET (FP) PO SCH (09:55)
[2020-03-11] MEDS: CARVEDILOL 3.125 MG TABLET (FP) PO SCH (09:55)
[2020-03-11] MEDS: LORATADINE 10 MG TABLET PO SCH (09:55)
[2020-03-11] MEDS: DIGOXIN 0.25 MG TABLET (FP) PO SCH (09:56)
[2020-03-11] MEDS: MINERAL OIL/PET HY-PHL TOPICAL OINTMENT 454 GM JAR TP SCH (09:56)
[2020-03-11] MEDS: SODIUM ZIRCONIUM CYCLOSILICATE (LOKELMA) 5 GM PACKET PO SCH (09:57)
[2020-03-11] MEDS: BUDESONIDE/FORMETEROL FUMARATE 80/4.5 mcg INHALER IH SCH (09:58)
[2020-03-11 15:32] VITALS: BP 109/58; PULSE 89; TEMP 97.7
== END 2020-03-11 18:20 | disposition home health service (06) | DRG 194 ==
LOC: JER 19:53 → JERBED 23:53 → J4W 03-05 23:28
PROVIDERS: ADMIT Hospitalist; ATTEND Internal Medicine
DX: I11.0 Hypertensive heart disease with heart failure (principal); I50.23 Acute on chronic systolic (congestive) heart failure; E78.5 Hyperlipidemia, unspecified; J45.909 Unspecified asthma, uncomplicated; F31.9 Bipolar disorder, unspecified; J44.9 Chronic obstructive pulmonary disease, unspecified; E11.9 Type 2 diabetes mellitus without complications; I48.20 Chronic atrial fibrillation, unspecified; E83.42 Hypomagnesemia; E83.39 Other disorders of phosphorus metabolism; E87.6 Hypokalemia; I47.2 Ventricular tachycardia; E66.9 Obesity, unspecified; I42.8 Other cardiomyopathies; Z68.22 Body mass index [BMI] 22.0-22.9, adult; I25.2 Old myocardial infarction; E11.622 Type 2 diabetes mellitus with other skin ulcer; F14.10 Cocaine abuse, uncomplicated; L97.828 Non-pressure chronic ulcer of other part of left lower leg with other specified severity; D64.9 Anemia, unspecified; I25.10 Atherosclerotic heart disease of native coronary artery without angina pectoris; Z91.14 Patient's other noncompliance with medication regimen; Z91.128 Patient's intentional underdosing of medication regimen for other reason; Z96.652 Presence of left artificial knee joint
CPT/HCPCS: 36415; 71045-TC-FY; 71046-TC-FY; 80048; 80053; 80162; 80307; 81003; 82010; 82272; 82550; 82728; 82962; 83036; 83540; 83550; 83615; 83735; 83880; 84100; 84132; 84484; 85025; 85027; 85610; 85730; 86140; 86850; 86900; 86901; 93005; 93010; 94010; 94640; 94761; 97116-GP; 97161-GP; 99285-25; C9803; U0003

== ENCOUNTER 2020-03-17 06:28 | Emergency (ER) | payer OTHER ==
[2020-03-17 06:41] VITALS: BMI 28.1
[2020-03-17 09:51] LABS: BASO % 3.1 % (0-2.0); EOS % 4.2 % (0-4.5); HEMATOCRIT 31.8 % (32.4-45.2); HEMOGLOBIN 9.6 GM/dL (10.7-15.3); LYMPH % 30.7 % (8-40); MCHC 30.2 g/dl (32.0-36.0); MEAN CELL VOLUME 76.1 fl (80-96); MEAN PLT VOLUME 9.7 fl (7.5-11.1); MONO % 12.5 % (3.8-10.2); NEUT % 49.5 % (42.8-82.8); PLATELET COUNT 226 K/MM3 (134-434); RBC 4.18 M/mm3 (3.60-5.2); WHITE BLOOD COUNT 4.4 K/mm3 (4.0-10.0)
[2020-03-17] MEDS ORDERED: FUROSEMIDE 40 MG TABLET (FP) PO ONE (09:52)
[2020-03-17] MEDS ORDERED: FUROSEMIDE 40 MG TABLET (FP) ONE (09:56)
[2020-03-17 10:14] LABS: CHLORIDE 99 mmol/L (98-107); POTASSIUM 3.8 mmol/L (3.5-5.1); SODIUM 134 mmol/L (136-145)
[2020-03-17 10:19] LABS: ALBUMIN 3.4 g/dl (3.4-5.0); ANION GAP 7 MMOL/L (8-16); BLOOD UREA NITROGEN 20.3 mg/dL (7-18); CALCIUM 9.4 mg/dL (8.5-10.1); CO2 28 mmol/L (21-32); GLUCOSE,RANDOM 326 mg/dL (74-106)
[2020-03-17 10:22] LABS: CREATININE 1.3 mg/dL (0.55-1.3); SGOT/AST 18 U/L (15-37); SGPT/ALT 20 U/L (13-61)
[2020-03-17 10:23] LABS: BILIRUBIN,TOTAL 0.9 mg/dL (0.2-1); TOT PROT 7.8 g/dl (6.4-8.2)
[2020-03-17 10:24] LABS: ALK PHOS 178 U/L (45-117)
[2020-03-17 10:58] VITALS: BP 128/65; PULSE 86; TEMP 98
[2020-03-17 12:27] LABS: ANISOCYTOSIS 1+; MACROCYTOSIS 0; PLATELET ESTIMATE NORMAL
== END 2020-03-17 11:10 | disposition home or self-care (01) ==
LOC: JER 06:28
DX: R06.02 Shortness of breath (principal)
CPT/HCPCS: 36415; 71045-TC-FY; 80053; 82010; 82550; 82962; 84484; 85025; 93005; 93010; 99285-25

== ENCOUNTER 2020-05-04 23:01 | Inpatient (IN) | payer OTHER ==
[2020-05-05 01:38] LABS: HEMATOCRIT 32.1 % (32.4-45.2); HEMOGLOBIN 9.7 GM/dL (10.7-15.3); MCH 21.6 pg (25.7-33.7); MCHC 30.2 g/dl (32.0-36.0); MEAN CELL VOLUME 71.4 fl (80-96); MEAN PLT VOLUME 9.3 fl (7.5-11.1); PLATELET COUNT 311 K/MM3 (134-434); RBC 4.49 M/mm3 (3.60-5.2); RDW 23.7 % (11.6-15.6); WHITE BLOOD COUNT 3.9 K/mm3 (4.0-10.0)
[2020-05-05 01:41] LABS: POTASSIUM 4.7 mmol/L (3.5-5.1)
[2020-05-05 01:43] LABS: CALCIUM 9.4 mg/dL (8.5-10.1)
[2020-05-05 01:44] LABS: ALBUMIN 3.7 g/dl (3.4-5.0); BLOOD UREA NITROGEN 16.5 mg/dL (7-18)
[2020-05-05 01:47] LABS: CREATININE 1.1 mg/dL (0.55-1.3)
[2020-05-05 01:49] LABS: BILIRUBIN,TOTAL 2.5 mg/dL (0.2-1); TOT PROT 8.3 g/dl (6.4-8.2)
[2020-05-05 01:52] LABS: N-TERMINAL BNP 3902.8 pg/ml (5-125)
[2020-05-05] MEDS ORDERED: FUROSEMIDE 40 MG/4 ML INJECTABLE VIAL IVPUSH ONE (02:36)
[2020-05-05] MEDS ORDERED: FUROSEMIDE 40 MG/4 ML INJECTABLE VIAL ONE ×2 (02:39→15:05)
[2020-05-05] MEDS ORDERED: ASPIRIN 81 MG CHEWABLE TABLETS PO ONE (02:45)
[2020-05-05] MEDS ORDERED: ASPIRIN 81 MG CHEWABLE TABLETS ONE (02:52)
[2020-05-05] MEDS ORDERED: DIPHTH,PERTUSS(ACELL),TET PED 0.5 ML VIAL IM ONE (02:52)
[2020-05-05] MEDS ORDERED: ALBUTEROL SO4 HFA INHALER IH PRN (08:10)
[2020-05-05] MEDS ORDERED: ALBUTEROL SO4 HFA INHALER IH ONE (08:27)
[2020-05-05] MEDS ORDERED: GABAPENTIN 100 MG CAPSULE ONE ×2 (08:47→23:19)
[2020-05-05] MEDS: GABAPENTIN 300 MG CAPSULE PO SCH ×2 (08:51→15:10)
[2020-05-05] MEDS ORDERED: FUROSEMIDE 40 MG TABLET (FP) ONE (09:30)
[2020-05-05] MEDS ORDERED: PANTOPRAZOLE 20 MG TABLET PO ONE (09:31)
[2020-05-05] MEDS ORDERED: APIXABAN 5 MG TABLET ONE ×2 (09:31→23:18)
[2020-05-05] MEDS ORDERED: LORATADINE 10 MG TABLET ONE (09:31)
[2020-05-05] MEDS ORDERED: CARVEDILOL 3.125 MG TABLET (FP) ONE ×2 (09:33→23:18)
[2020-05-05] MEDS ORDERED: CARVEDILOL 3.125 MG TABLET (FP) PO SCH (10:00)
[2020-05-05] MEDS ORDERED: PATIENT'S OWN MEDICATION (NON-FORMULARY) (Ipratropium/Albuterol Sulfate 1 PUFF Inhaler) IH SCH (10:00)
[2020-05-05] MEDS ORDERED: DIGOXIN 0.25 MG TABLET (FP) PO SCH ×2 (10:00)
[2020-05-05] MEDS ORDERED: FUROSEMIDE 40 MG TABLET (FP) PO SCH (10:00)
[2020-05-05] MEDS ORDERED: DIGOXIN 0.125 MG TABLET (FP) ONE (10:13)
[2020-05-05] MEDS: PANTOPRAZOLE 20 MG TABLET PO SCH (10:25)
[2020-05-05] MEDS: SACUBITRIL/VALSARTAN 24 MG-26 MG TABLET PO SCH (10:25)
[2020-05-05] MEDS: DIGOXIN 0.125 MG TABLET (FP) PO SCH (10:25)
[2020-05-05] MEDS: BUDESONIDE/FORMETEROL FUMARATE 80/4.5 mcg INHALER IH SCH (10:25)
[2020-05-05] MEDS: APIXABAN 5 MG TABLET PO SCH (10:25)
[2020-05-05] MEDS: LORATADINE 10 MG TABLET PO SCH (10:25)
[2020-05-05] MEDS: INSULIN SLIDING SCALE (NOVOLOG) 1 VIAL SQ SCH ×2 (11:19→16:57)
[2020-05-05] MEDS: FUROSEMIDE 40 MG/4 ML INJECTABLE VIAL IVPUSH SCH (15:09)
[2020-05-05] MEDS ORDERED: INSULIN (LEVEMIR) 100 UNITS/ML UNITS SQ SCH (22:00)
[2020-05-05] MEDS ORDERED: ATORVASTATIN CA 40 MG TABLET (FP) ONE (23:18)
[2020-05-05] MEDS ORDERED: INSULIN SLIDING SCALE (NOVOLOG) 1 VIAL SQ ONE (23:21)
[2020-05-06] MEDS: CARVEDILOL 6.25 MG TABLET (FP) PO SCH ×3 (00:29→23:39)
[2020-05-06] MEDS: APIXABAN 5 MG TABLET PO SCH ×3 (00:29→23:39)
[2020-05-06] MEDS: SACUBITRIL/VALSARTAN 24 MG-26 MG TABLET PO SCH ×3 (00:30→23:41)
[2020-05-06] MEDS: INSULIN SLIDING SCALE (NOVOLOG) 1 VIAL SQ SCH ×5 (00:30→23:41)
[2020-05-06] MEDS: ATORVASTATIN CA 40 MG TABLET (FP) PO SCH ×2 (00:30→23:40)
[2020-05-06] MEDS: GABAPENTIN 300 MG CAPSULE PO SCH ×4 (00:30→23:39)
[2020-05-06] MEDS: BUDESONIDE/FORMETEROL FUMARATE 80/4.5 mcg INHALER IH SCH ×3 (00:30→23:41)
[2020-05-06] MEDS ORDERED: FUROSEMIDE 40 MG/4 ML INJECTABLE VIAL ONE ×3 (06:53→15:04)
[2020-05-06] MEDS ORDERED: GABAPENTIN 100 MG CAPSULE ONE (06:53)
[2020-05-06] MEDS ORDERED: PANTOPRAZOLE 20 MG TABLET PO ONE (08:59)
[2020-05-06] MEDS ORDERED: APIXABAN 5 MG TABLET ONE (08:59)
[2020-05-06] MEDS ORDERED: DIGOXIN 0.125 MG TABLET (FP) ONE (08:59)
[2020-05-06] MEDS ORDERED: LORATADINE 10 MG TABLET ONE (09:00)
[2020-05-06] MEDS: INSULIN (LEVEMIR) 100 UNITS/ML UNITS SQ SCH (09:10)
[2020-05-06] MEDS: LORATADINE 10 MG TABLET PO SCH (09:10)
[2020-05-06] MEDS: PANTOPRAZOLE 20 MG TABLET PO SCH (09:10)
[2020-05-06] MEDS: DIGOXIN 0.125 MG TABLET (FP) PO SCH (09:10)
[2020-05-06] MEDS: FUROSEMIDE 40 MG/4 ML INJECTABLE VIAL IVPUSH SCH ×2 (10:02→16:01)
[2020-05-06] MEDS ORDERED: traMADol HCL 50 MG TABLET PO ONE (16:49)
[2020-05-06] MEDS ORDERED: traMADol HCL 50 MG TABLET ONE (16:54)
[2020-05-06 19:13] LABS: EPI CELLS >36 /uL (0-25.1); HYALINE CASTS 1 /uL (0-3.1); URINE APPEARANCE CLEAR; URINE BACTERIA 1077 /uL (0-1359); URINE BILIRUBIN NEGATIVE (NEGATIVE); URINE COLOR DK YELLOW; URINE GLUCOSE (UA) NEGATIVE (NEGATIVE); URINE KETONE NEGATIVE (NEGATIVE); URINE LEUK ESTERASE NEGATIVE (NEGATIVE); URINE NITRITE NEGATIVE (NEGATIVE); URINE PROTEIN 2+ (NEGATIVE); URINE RBC 109 /uL (0-23.9); URINE WBC 18 /uL (0-25.8)
[2020-05-07 04:42] VITALS: BMI 36.9
[2020-05-07] MEDS ORDERED: ACETAMINOPHEN 325 MG TABLET (FP) PO ONE (05:30)
[2020-05-07] MEDS: GABAPENTIN 300 MG CAPSULE PO SCH ×3 (05:50→21:30)
[2020-05-07] MEDS: FUROSEMIDE 40 MG/4 ML INJECTABLE VIAL IVPUSH SCH ×3 (05:51→18:44)
[2020-05-07] MEDS: INSULIN SLIDING SCALE (NOVOLOG) 1 VIAL SQ SCH ×4 (06:05→21:42)
[2020-05-07] MEDS: INSULIN (LEVEMIR) 100 UNITS/ML UNITS SQ SCH (09:31)
[2020-05-07] MEDS: APIXABAN 5 MG TABLET PO SCH ×2 (09:32→21:30)
[2020-05-07] MEDS: CARVEDILOL 6.25 MG TABLET (FP) PO SCH ×2 (09:32→21:30)
[2020-05-07] MEDS: PANTOPRAZOLE 20 MG TABLET PO SCH (09:32)
[2020-05-07] MEDS: DIGOXIN 0.125 MG TABLET (FP) PO SCH (09:33)
[2020-05-07] MEDS: LORATADINE 10 MG TABLET PO SCH (09:38)
[2020-05-07 09:39] LABS: HEMATOCRIT 27.5 % (32.4-45.2); HEMOGLOBIN 8.4 GM/dL (10.7-15.3); MCH 21.4 pg (25.7-33.7); MCHC 30.4 g/dl (32.0-36.0); MEAN CELL VOLUME 70.4 fl (80-96); MEAN PLT VOLUME 9.2 fl (7.5-11.1); PLATELET COUNT 198 K/MM3 (134-434); RBC 3.91 M/mm3 (3.60-5.2); RDW 23.6 % (11.6-15.6); WHITE BLOOD COUNT 3.3 K/mm3 (4.0-10.0)
[2020-05-07] MEDS: SACUBITRIL/VALSARTAN 24 MG-26 MG TABLET PO SCH ×2 (09:39→21:31)
[2020-05-07] MEDS: BUDESONIDE/FORMETEROL FUMARATE 80/4.5 mcg INHALER IH SCH ×2 (09:43→22:27)
[2020-05-07 09:57] LABS: POTASSIUM 3.3 mmol/L (3.5-5.1)
[2020-05-07] MEDS: traMADol HCL 50 MG TABLET PO PRN ×2 (10:01→17:59)
[2020-05-07 10:05] LABS: ALBUMIN 2.9 g/dl (3.4-5.0); BLOOD UREA NITROGEN 22.8 mg/dL (7-18); CALCIUM 8.3 mg/dL (8.5-10.1)
[2020-05-07 10:09] LABS: CREATININE 1.2 mg/dL (0.55-1.3)
[2020-05-07 10:10] LABS: BILIRUBIN,TOTAL 1.5 mg/dL (0.2-1); TOT PROT 6.6 g/dl (6.4-8.2)
[2020-05-07] MEDS ORDERED: POTASSIUM CHLORIDE TABS 20 MEQ TABLET.ER (FP) PO ONE (12:31)
[2020-05-07] MEDS: ACETAMINOPHEN 325 MG TABLET (FP) PO PRN (15:50)
[2020-05-07] MEDS ORDERED: INSULIN (NOVOLOG) ASPART 100 UNITS/ML 10ML VIAL ONE ×2 (15:54→21:40)
[2020-05-07] MEDS ORDERED: PT OWN MED DRAWER 7, Y5N ONE (21:01)
[2020-05-07] MEDS: ATORVASTATIN CA 40 MG TABLET (FP) PO SCH (21:30)
[2020-05-08] MEDS ORDERED: PT OWN MED DRAWER 7, Y5N ONE ×3 (05:42→21:28)
[2020-05-08] MEDS: GABAPENTIN 300 MG CAPSULE PO SCH ×3 (06:14→21:29)
[2020-05-08] MEDS: INSULIN SLIDING SCALE (NOVOLOG) 1 VIAL SQ SCH ×4 (06:31→21:32)
[2020-05-08] MEDS: FUROSEMIDE 40 MG/4 ML INJECTABLE VIAL IVPUSH SCH ×2 (06:31→14:23)
[2020-05-08] MEDS: LORATADINE 10 MG TABLET PO SCH (09:44)
[2020-05-08] MEDS: DIGOXIN 0.125 MG TABLET (FP) PO SCH (09:44)
[2020-05-08] MEDS: PANTOPRAZOLE 20 MG TABLET PO SCH (09:44)
[2020-05-08] MEDS: SACUBITRIL/VALSARTAN 24 MG-26 MG TABLET PO SCH ×2 (09:46→21:31)
[2020-05-08] MEDS: APIXABAN 5 MG TABLET PO SCH ×2 (09:46→21:29)
[2020-05-08] MEDS: CARVEDILOL 6.25 MG TABLET (FP) PO SCH (09:46)
[2020-05-08] MEDS: INSULIN (LEVEMIR) 100 UNITS/ML UNITS SQ SCH (09:47)
[2020-05-08] MEDS: BUDESONIDE/FORMETEROL FUMARATE 80/4.5 mcg INHALER IH SCH ×2 (09:48→21:31)
[2020-05-08] MEDS: COLLAGENASE CLOSTRIDIUM HIST. 30 GRAMS TUBE TP SCH (09:51)
[2020-05-08 10:59] LABS: POTASSIUM 3.8 mmol/L (3.5-5.1)
[2020-05-08 11:03] LABS: ALBUMIN 2.8 g/dl (3.4-5.0)
[2020-05-08 11:04] LABS: MAGNESIUM 1.1 mg/dL (1.8-2.4)
[2020-05-08 11:07] LABS: CREATININE 1.4 mg/dL (0.55-1.3); PHOSPHOROUS 4.1 mg/dL (2.5-4.9)
[2020-05-08 11:08] LABS: BILIRUBIN,TOTAL 1.1 mg/dL (0.2-1); TOT PROT 6.5 g/dl (6.4-8.2)
[2020-05-08 11:33] LABS: BASO % 2.4 % (0-2.0); HEMATOCRIT 29.8 % (32.4-45.2); LYMPH % 31.1 % (8-40); MCH 21.3 pg (25.7-33.7); MCHC 30.2 g/dl (32.0-36.0); MEAN CELL VOLUME 70.7 fl (80-96); MEAN PLT VOLUME 9.3 fl (7.5-11.1); MONO % 13.2 % (3.8-10.2); NEUT % 49.3 % (42.8-82.8); PLATELET COUNT 191 K/MM3 (134-434); RBC 4.21 M/mm3 (3.60-5.2); RDW 23.7 % (11.6-15.6); WHITE BLOOD COUNT 3.5 K/mm3 (4.0-10.0)
[2020-05-08 12:29] LABS: ANISOCYTOSIS 3+; MACROCYTOSIS 0; PLATELET ESTIMATE NORMAL
[2020-05-08] MEDS ORDERED: IRON SUCROSE INJECTION 200 MG in SODIUM CHLORIDE 90 ML IVPB ONE (16:00)
[2020-05-08] MEDS: CARVEDILOL 3.125 MG TABLET (FP) PO SCH (21:30)
[2020-05-08] MEDS: ATORVASTATIN CA 40 MG TABLET (FP) PO SCH (21:30)
[2020-05-08] MEDS: traMADol HCL 50 MG TABLET PO PRN (21:30)
[2020-05-09] MEDS ORDERED: INSULIN (NOVOLOG) ASPART 100 UNITS/ML 10ML VIAL ONE (05:54)
[2020-05-09] MEDS: FUROSEMIDE 40 MG/4 ML INJECTABLE VIAL IVPUSH SCH ×2 (06:01→14:06)
[2020-05-09] MEDS: GABAPENTIN 300 MG CAPSULE PO SCH ×3 (06:01→22:21)
[2020-05-09] MEDS: INSULIN SLIDING SCALE (NOVOLOG) 1 VIAL SQ SCH ×4 (06:01→22:18)
[2020-05-09] MEDS: traMADol HCL 50 MG TABLET PO PRN (08:14)
[2020-05-09] MEDS ORDERED: PT OWN MED DRAWER 7, Y5N ONE ×2 (09:08→22:17)
[2020-05-09] MEDS: SACUBITRIL/VALSARTAN 24 MG-26 MG TABLET PO SCH ×2 (09:12→22:22)
[2020-05-09] MEDS: APIXABAN 5 MG TABLET PO SCH ×2 (09:12→22:21)
[2020-05-09] MEDS: DIGOXIN 0.125 MG TABLET (FP) PO SCH (09:12)
[2020-05-09] MEDS: PANTOPRAZOLE 20 MG TABLET PO SCH (09:12)
[2020-05-09] MEDS: INSULIN (LEVEMIR) 100 UNITS/ML UNITS SQ SCH (09:12)
[2020-05-09] MEDS: COLLAGENASE CLOSTRIDIUM HIST. 30 GRAMS TUBE TP SCH (09:13)
[2020-05-09] MEDS: LORATADINE 10 MG TABLET PO SCH (09:13)
[2020-05-09] MEDS: BUDESONIDE/FORMETEROL FUMARATE 80/4.5 mcg INHALER IH SCH ×2 (09:13→23:02)
[2020-05-09] MEDS: CARVEDILOL 3.125 MG TABLET (FP) PO SCH ×2 (09:13→23:08)
[2020-05-09 10:37] LABS: EOS % 4.1 % (0-4.5); HEMATOCRIT 29.6 % (32.4-45.2); HEMOGLOBIN 8.9 GM/dL (10.7-15.3); LYMPH % 24.9 % (8-40); MCH 21.5 pg (25.7-33.7); MCHC 30.2 g/dl (32.0-36.0); MEAN CELL VOLUME 71.3 fl (80-96); MEAN PLT VOLUME 9.2 fl (7.5-11.1); PLATELET COUNT 192 K/MM3 (134-434); RBC 4.15 M/mm3 (3.60-5.2); RDW 23.7 % (11.6-15.6); WHITE BLOOD COUNT 3.6 K/mm3 (4.0-10.0)
[2020-05-09 11:03] LABS: ALBUMIN 2.9 g/dl (3.4-5.0); BLOOD UREA NITROGEN 33.2 mg/dL (7-18); CALCIUM 8.3 mg/dL (8.5-10.1); MAGNESIUM 1.2 mg/dL (1.8-2.4)
[2020-05-09 11:06] LABS: CREATININE 1.3 mg/dL (0.55-1.3); PHOSPHOROUS 3.5 mg/dL (2.5-4.9)
[2020-05-09 11:08] LABS: BILIRUBIN,TOTAL 1.2 mg/dL (0.2-1); TOT PROT 6.8 g/dl (6.4-8.2)
[2020-05-09] MEDS ORDERED: IRON SUCROSE INJECTION 100 MG in SODIUM CHLORIDE 95 ML IVPB ONE (12:00)
[2020-05-09] MEDS ORDERED: MELATONIN 5 MG TABLETS PO PRN (12:31)
[2020-05-09] MEDS ORDERED: MAGNESIUM 1GM/D5W 100ML - 100 ML IVPB IVPB ONE (12:45)
[2020-05-09] MEDS: MAGNESIUM OXIDE 400 MG TABLET (FP) PO SCH ×2 (14:06→22:21)
[2020-05-09] MEDS: ATORVASTATIN CA 40 MG TABLET (FP) PO SCH (22:21)
[2020-05-10] MEDS: traMADol HCL 50 MG TABLET PO PRN ×2 (04:01→21:56)
[2020-05-10] MEDS: GABAPENTIN 300 MG CAPSULE PO SCH ×3 (06:01→21:57)
[2020-05-10] MEDS: INSULIN SLIDING SCALE (NOVOLOG) 1 VIAL SQ SCH ×5 (06:01→22:07)
[2020-05-10] MEDS: FUROSEMIDE 40 MG/4 ML INJECTABLE VIAL IVPUSH SCH (06:03)
[2020-05-10 09:03] LABS: BASO % 3.3 % (0-2.0); EOS % 3.7 % (0-4.5); HEMATOCRIT 29.5 % (32.4-45.2); HEMOGLOBIN 8.9 GM/dL (10.7-15.3); LYMPH % 27.6 % (8-40); MCH 21.5 pg (25.7-33.7); MCHC 30.2 g/dl (32.0-36.0); MEAN CELL VOLUME 71.2 fl (80-96); MEAN PLT VOLUME 9.4 fl (7.5-11.1); MONO % 12.1 % (3.8-10.2); NEUT % 53.3 % (42.8-82.8); PLATELET COUNT 211 K/MM3 (134-434); RBC 4.14 M/mm3 (3.60-5.2); RDW 23.7 % (11.6-15.6); WHITE BLOOD COUNT 3.9 K/mm3 (4.0-10.0)
[2020-05-10 09:16] LABS: POTASSIUM 3.4 mmol/L (3.5-5.1)
[2020-05-10] MEDS ORDERED: POTASSIUM CHLORIDE TABS 20 MEQ TABLET.ER (FP) PO ONE (09:17)
[2020-05-10 09:29] LABS: BLOOD UREA NITROGEN 31.7 mg/dL (7-18)
[2020-05-10 09:32] LABS: CALCIUM 8.5 mg/dL (8.5-10.1); CREATININE 1.2 mg/dL (0.55-1.3); PHOSPHOROUS 3.3 mg/dL (2.5-4.9)
[2020-05-10 09:33] LABS: MAGNESIUM 1.4 mg/dL (1.8-2.4)
[2020-05-10 09:34] LABS: BILIRUBIN,TOTAL 1.4 mg/dL (0.2-1); TOT PROT 6.9 g/dl (6.4-8.2)
[2020-05-10] MEDS: LORATADINE 10 MG TABLET PO SCH (09:59)
[2020-05-10] MEDS: FUROSEMIDE 40 MG TABLET (FP) PO SCH (09:59)
[2020-05-10] MEDS: DIGOXIN 0.125 MG TABLET (FP) PO SCH (10:00)
[2020-05-10] MEDS: MAGNESIUM OXIDE 400 MG TABLET (FP) PO SCH ×2 (10:00→21:57)
[2020-05-10] MEDS: PANTOPRAZOLE 20 MG TABLET PO SCH (10:00)
[2020-05-10] MEDS: CARVEDILOL 3.125 MG TABLET (FP) PO SCH ×2 (10:00→21:57)
[2020-05-10] MEDS: APIXABAN 5 MG TABLET PO SCH ×2 (10:00→21:57)
[2020-05-10] MEDS: SACUBITRIL/VALSARTAN 24 MG-26 MG TABLET PO SCH ×2 (10:01→21:57)
[2020-05-10] MEDS: INSULIN (LEVEMIR) 100 UNITS/ML UNITS SQ SCH (10:01)
[2020-05-10] MEDS: BUDESONIDE/FORMETEROL FUMARATE 80/4.5 mcg INHALER IH SCH ×2 (10:07→22:07)
[2020-05-10] MEDS: COLLAGENASE CLOSTRIDIUM HIST. 30 GRAMS TUBE TP SCH (11:51)
[2020-05-10] MEDS ORDERED: INSULIN (LEVEMIR) 100 UNITS/ML UNITS SQ ONE (19:51)
[2020-05-10] MEDS ORDERED: PT OWN MED DRAWER 7, Y5N ONE (21:53)
[2020-05-10] MEDS: ATORVASTATIN CA 40 MG TABLET (FP) PO SCH (21:57)
[2020-05-11] MEDS: SIMETHICONE 80 MG TAB.CHEW (FP) PO PRN (04:00)
[2020-05-11] MEDS ORDERED: TRIMETHOBENZAMIDE HCL 300 MG CAPSULE PO ONE (06:04)
[2020-05-11] MEDS: GABAPENTIN 300 MG CAPSULE PO SCH ×3 (06:30→21:57)
[2020-05-11] MEDS: ACETAMINOPHEN 325 MG TABLET (FP) PO PRN ×2 (06:31→14:34)
[2020-05-11] MEDS: INSULIN SLIDING SCALE (NOVOLOG) 1 VIAL SQ SCH ×4 (06:32→21:57)
[2020-05-11] MEDS: traMADol HCL 50 MG TABLET PO PRN (10:37)
[2020-05-11] MEDS: DIGOXIN 0.125 MG TABLET (FP) PO SCH (10:57)
[2020-05-11] MEDS: CARVEDILOL 3.125 MG TABLET (FP) PO SCH ×2 (11:00→21:57)
[2020-05-11] MEDS: LORATADINE 10 MG TABLET PO SCH (11:01)
[2020-05-11] MEDS: FUROSEMIDE 40 MG TABLET (FP) PO SCH (11:01)
[2020-05-11] MEDS: SACUBITRIL/VALSARTAN 24 MG-26 MG TABLET PO SCH ×2 (11:01→21:57)
[2020-05-11] MEDS: MAGNESIUM OXIDE 400 MG TABLET (FP) PO SCH ×2 (11:01→21:57)
[2020-05-11] MEDS: PANTOPRAZOLE 20 MG TABLET PO SCH (11:01)
[2020-05-11] MEDS: APIXABAN 5 MG TABLET PO SCH ×2 (11:01→21:57)
[2020-05-11] MEDS: INSULIN (LEVEMIR) 100 UNITS/ML UNITS SQ SCH (11:02)
[2020-05-11] MEDS: BUDESONIDE/FORMETEROL FUMARATE 80/4.5 mcg INHALER IH SCH ×2 (11:03→21:57)
[2020-05-11 11:07] LABS: BASO % 0.5 % (0-2.0); EOS % 2.5 % (0-4.5); HEMATOCRIT 29.1 % (32.4-45.2); HEMOGLOBIN 9.3 GM/dL (10.7-15.3); LYMPH % 22.6 % (8-40); MCH 23.5 pg (25.7-33.7); MCHC 31.9 g/dl (32.0-36.0); MEAN CELL VOLUME 73.5 fl (80-96); MONO % 6.9 % (3.8-10.2); NEUT % 67.5 % (42.8-82.8); PLATELET COUNT 434 K/MM3 (134-434); RBC 3.97 M/mm3 (3.60-5.2); WHITE BLOOD COUNT 6.9 K/mm3 (4.0-10.0)
[2020-05-11 11:15] LABS: POTASSIUM 3.6 mmol/L (3.5-5.1)
[2020-05-11 11:18] LABS: MAGNESIUM 1.8 mg/dL (1.8-2.4)
[2020-05-11 11:20] LABS: CREATININE 0.5 mg/dL (0.55-1.3)
[2020-05-11 11:21] LABS: PHOSPHOROUS 3.6 mg/dL (2.5-4.9)
[2020-05-11 11:22] LABS: BILIRUBIN,TOTAL 0.5 mg/dL (0.2-1)
[2020-05-11 11:24] LABS: ALBUMIN 3.2 g/dl (3.4-5.0); BLOOD UREA NITROGEN 3.9 mg/dL (7-18); CALCIUM 8.6 mg/dL (8.5-10.1); TOT PROT 7.7 g/dl (6.4-8.2)
[2020-05-11] MEDS: COLLAGENASE CLOSTRIDIUM HIST. 30 GRAMS TUBE TP SCH (14:35)
[2020-05-11] MEDS: ATORVASTATIN CA 40 MG TABLET (FP) PO SCH (21:57)
[2020-05-12] MEDS: INSULIN SLIDING SCALE (NOVOLOG) 1 VIAL SQ SCH ×3 (06:10→17:05)
[2020-05-12] MEDS: GABAPENTIN 300 MG CAPSULE PO SCH ×2 (06:10→15:12)
[2020-05-12] MEDS ORDERED: PT OWN MED DRAWER 7, Y5N ONE (10:02)
[2020-05-12] MEDS: DIGOXIN 0.125 MG TABLET (FP) PO SCH (10:17)
[2020-05-12] MEDS: CARVEDILOL 3.125 MG TABLET (FP) PO SCH (10:17)
[2020-05-12] MEDS: LORATADINE 10 MG TABLET PO SCH (10:17)
[2020-05-12] MEDS: APIXABAN 5 MG TABLET PO SCH (10:17)
[2020-05-12] MEDS: SACUBITRIL/VALSARTAN 24 MG-26 MG TABLET PO SCH (10:17)
[2020-05-12] MEDS: MAGNESIUM OXIDE 400 MG TABLET (FP) PO SCH (10:17)
[2020-05-12] MEDS: FUROSEMIDE 40 MG TABLET (FP) PO SCH (10:18)
[2020-05-12] MEDS: BUDESONIDE/FORMETEROL FUMARATE 80/4.5 mcg INHALER IH SCH (10:18)
[2020-05-12] MEDS: COLLAGENASE CLOSTRIDIUM HIST. 30 GRAMS TUBE TP SCH (10:18)
[2020-05-12] MEDS: PANTOPRAZOLE 20 MG TABLET PO SCH (10:18)
[2020-05-12] MEDS: INSULIN (LEVEMIR) 100 UNITS/ML UNITS SQ SCH (10:19)
[2020-05-12] MEDS ORDERED: INSULIN (NOVOLOG) ASPART 100 UNITS/ML 10ML VIAL ONE (11:12)
[2020-05-12] MEDS: SIMETHICONE 80 MG TAB.CHEW (FP) PO PRN (12:47)
[2020-05-12 15:45] VITALS: BP 144/79; PULSE 75
[2020-05-12 18:00] VITALS: TEMP 97.8
== END 2020-05-12 18:15 | disposition home or self-care (01) | DRG 194 ==
LOC: JER 23:01 → JERBED 05-05 03:27 → J5S 05-06 23:22 → OBSVTOIN 05-08 08:01 → J5S 05-11 12:32
PROVIDERS: ADMIT Internal Medicine
DX: I11.0 Hypertensive heart disease with heart failure (principal); I48.0 Paroxysmal atrial fibrillation; J44.9 Chronic obstructive pulmonary disease, unspecified; I50.23 Acute on chronic systolic (congestive) heart failure; E80.6 Other disorders of bilirubin metabolism; I25.10 Atherosclerotic heart disease of native coronary artery without angina pectoris; L97.929 Non-pressure chronic ulcer of unspecified part of left lower leg with unspecified severity; E11.622 Type 2 diabetes mellitus with other skin ulcer; I73.9 Peripheral vascular disease, unspecified; F14.90 Cocaine use, unspecified, uncomplicated; E11.621 Type 2 diabetes mellitus with foot ulcer; F31.9 Bipolar disorder, unspecified; F17.210 Nicotine dependence, cigarettes, uncomplicated; D50.9 Iron deficiency anemia, unspecified; E11.51 Type 2 diabetes mellitus with diabetic peripheral angiopathy without gangrene; I42.8 Other cardiomyopathies; E87.70 Fluid overload, unspecified; Z68.38 Body mass index [BMI] 38.0-38.9, adult; E78.5 Hyperlipidemia, unspecified; E87.6 Hypokalemia; E66.01 Morbid (severe) obesity due to excess calories
CPT/HCPCS: 36415; 71045-TC-FY; 73630-TC-RT-FY; 73718-TC-RT; 80048; 80053; 80162; 81003; 82248; 82272; 82550; 82553; 82728; 82962; 83540; 83550; 83735; 83880; 84100; 84484; 85025; 85027; 93005; 93010; 97116-GP; 97161-GP; 99285-25; C9803; G0378; J1756; U0003

== ENCOUNTER 2020-05-26 13:38 | Emergency (ER) | payer OTHER ==
[2020-05-26 14:07] VITALS: TEMP 97.6; BMI 36.1
[2020-05-26] MEDS ORDERED: SODIUM CHLORIDE 1,000 ML IV SCH (14:45)
[2020-05-26 17:04] LABS: VENOUS BASE EXCESS 1.2 mmol/L (-2-2); VENOUS O2 SATURATION 36.4 % (70-80); VENOUS PH 7.318 (7.310-7.410)
[2020-05-26 17:16] LABS: INR 2.61 (0.83-1.09); PROTHROMBIN TIME (PATIENT) 31.2 SEC (9.7-13.0)
[2020-05-26 17:18] LABS: ACTIVATED PTT 38.9 SECONDS (25.2-36.5)
[2020-05-26 17:23] LABS: CHLORIDE 100 mmol/L (98-107); SODIUM 137 mmol/L (136-145)
[2020-05-26 17:26] LABS: ALBUMIN 3.8 g/dl (3.4-5.0); CALCIUM 9.2 mg/dL (8.5-10.1); CO2 28 mmol/L (21-32); GLUCOSE,RANDOM 285 mg/dL (74-106)
[2020-05-26 17:27] LABS: MAGNESIUM 1.3 mg/dL (1.8-2.4)
[2020-05-26 17:29] LABS: CREATININE 1.3 mg/dL (0.55-1.3); SGOT/AST 108 U/L (15-37)
[2020-05-26 17:31] LABS: BILIRUBIN,TOTAL 2.3 mg/dL (0.2-1); PHOSPHOROUS 3.1 mg/dL (2.5-4.9); TOT PROT 8.7 g/dl (6.4-8.2)
[2020-05-26 17:32] LABS: ALK PHOS 323 U/L (45-117)
[2020-05-26 17:37] LABS: ANION GAP 9 MMOL/L (8-16); SGPT/ALT 34 U/L (13-61)
[2020-05-26] MEDS ORDERED: ALPRAZolam 0.25 MG TABLET PO ONE (18:51)
[2020-05-26] MEDS ORDERED: ALPRAZolam 0.25 MG TABLET ONE (18:59)
[2020-05-26 19:10] LABS: BASO % 2.8 % (0-2.0); EOS % 2.5 % (0-4.5); HEMATOCRIT 34.8 % (32.4-45.2); HEMOGLOBIN 10.6 GM/dL (10.7-15.3); LYMPH % 18.2 % (8-40); MCH 23.1 pg (25.7-33.7); MCHC 30.4 g/dl (32.0-36.0); MEAN CELL VOLUME 76.3 fl (80-96); MEAN PLT VOLUME 9.3 fl (7.5-11.1); MONO % 7.4 % (3.8-10.2); NEUT % 69.1 % (42.8-82.8); PLATELET COUNT 293 K/MM3 (134-434); RBC 4.56 M/mm3 (3.60-5.2); RDW 29.1 % (11.6-15.6)
[2020-05-26 19:41] LABS: BLOOD UREA NITROGEN 14.2 mg/dL (7-18)
[2020-05-26 19:42] LABS: ALBUMIN 3.4 g/dl (3.4-5.0)
[2020-05-26 19:45] LABS: CREATININE 1.2 mg/dL (0.55-1.3)
[2020-05-26 19:46] LABS: TOT PROT 7.9 g/dl (6.4-8.2)
[2020-05-26 19:49] LABS: BILIRUBIN,TOTAL 2.1 mg/dL (0.2-1)
[2020-05-26] MEDS ORDERED: LORazepam 2 MG/ML SDV VIAL IVPUSH ONE (19:49)
[2020-05-26] MEDS ORDERED: LORazepam 2 MG/ML SDV VIAL ONE (19:50)
[2020-05-26 19:55] VITALS: BP 140/76; PULSE 80
[2020-05-26 20:44] LABS: ANISOCYTOSIS 2+; MACROCYTOSIS 0; PLATELET ESTIMATE NORMAL; TARGET CELLS 2+
== END 2020-05-26 23:32 | disposition left against medical advice (07) ==
LOC: JER 13:38
DX: R06.02 Shortness of breath (principal); R73.9 Hyperglycemia, unspecified; R10.84 Generalized abdominal pain
CPT/HCPCS: 36415; 71045-TC-FY; 80053; 82010; 82803; 83605; 83735; 83880; 84100; 84484; 85025; 85610; 85730; 86850; 86900; 86901; 93005; 93010; 99285-25

== ENCOUNTER 2020-05-27 22:03 | Emergency (ER) | payer OTHER ==
[2020-05-27 23:02] VITALS: PULSE 86; BMI 35.6
[2020-05-28 04:04] VITALS: BP 150/94; TEMP 97.8
== END 2020-05-28 02:54 | disposition left against medical advice (07) ==
LOC: JER 22:03
DX: E66.01 Morbid (severe) obesity due to excess calories (principal); E11.69 Type 2 diabetes mellitus with other specified complication; Z79.4 Long term (current) use of insulin; R10.9 Unspecified abdominal pain
CPT/HCPCS: 99283-25; 99285-25

== ENCOUNTER 2020-06-14 07:42 | Inpatient (IN) | payer OTHER ==
[2020-06-14] MEDS ORDERED: ACETAMINOPHEN 1000 MG/100 ML VIAL (NON FORMULARY) IVPB ONE (08:17)
[2020-06-14] MEDS ORDERED: ACETAMINOPHEN INJECTION 100 ML IVPB ONE (09:46)
[2020-06-14 11:23] LABS: CALCIUM 8.7 mg/dL (8.5-10.1)
[2020-06-14 11:24] LABS: ALBUMIN 3.2 g/dl (3.4-5.0); BLOOD UREA NITROGEN 16.9 mg/dL (7-18)
[2020-06-14 11:28] LABS: TOT PROT 7.2 g/dl (6.4-8.2)
[2020-06-14 11:32] LABS: N-TERMINAL BNP 3018.1 pg/ml (5-125)
[2020-06-14 11:40] LABS: BASO % 0.4 % (0-2.0); EOS % 0.2 % (0-4.5); HEMOGLOBIN 10.9 GM/dL (10.7-15.3); LYMPH % 2.3 % (8-40); MCH 23.8 pg (25.7-33.7); MCHC 31.1 g/dl (32.0-36.0); MEAN CELL VOLUME 76.3 fl (80-96); MONO % 3.4 % (3.8-10.2); NEUT % 93.7 % (42.8-82.8); PLATELET COUNT 249 K/MM3 (134-434); RBC 4.58 M/mm3 (3.60-5.2); RDW 27.2 % (11.6-15.6); WHITE BLOOD COUNT 15.7 K/mm3 (4.0-10.0)
[2020-06-14] MEDS ORDERED: POTASSIUM CHLORIDE ORAL LIQUID 20 MEQ/15 ML PO ONE (11:54)
[2020-06-14 11:55] LABS: POTASSIUM 2.9 mmol/L (3.5-5.1)
[2020-06-14] MEDS ORDERED: DEXTROSE 50%-WATER - 25 GM/50 ML VIAL IVPUSH ONE (11:55)
[2020-06-14] MEDS ORDERED: DEXTROSE 50%-WATER 25 GM/50 ML DISP.SYRIN ONE (12:08)
[2020-06-14] MEDS ORDERED: POTASSIUM CHLORIDE TABS 20 MEQ TABLET.ER (FP) PO ONE (12:09)
[2020-06-14] MEDS ORDERED: KCL 10 MEQ IVPB 10 MEQ/100 ML INFUS.BAG IVPB ONE ×3 (12:10→16:07)
[2020-06-14] MEDS: KCL 10 MEQ IVPB 10 MEQ/100 ML INFUS.BAG IVPB SCH ×3 (12:20→15:25)
[2020-06-14 12:29] LABS: ANISOCYTOSIS 1+; MACROCYTOSIS 0; OVALOCYTE 1+; PLATELET ESTIMATE NORMAL; TARGET CELLS 2+
[2020-06-14] MEDS ORDERED: CIPROFLOXACIN 400 MG/D5W 400 MG/200 ML IVPB IVPB ONE (13:16)
[2020-06-14] MEDS ORDERED: ALBUTEROL SO4 HFA INHALER IH PRN (13:45)
[2020-06-14] MEDS ORDERED: AZTREONAM 2 GM in DEXTROSE 5%-WATER 100 ML IVPB ONE (13:49)
[2020-06-14] MEDS ORDERED: AZTREONAM 2 GM/10 ML SYRINGE (RESTRICTED TO ID) IVPUSH SCH ×2 (14:00)
[2020-06-14] MEDS ORDERED: AZTREONAM 2 GM in DEXTROSE 5%-WATER 100 ML IVPB SCH (14:00)
[2020-06-14 14:10] LABS: MAGNESIUM 1.1 mg/dL (1.8-2.4)
[2020-06-14] MEDS ORDERED: VANCOMYCIN 1,000 MG in DEXTROSE 5%-WATER - 250 ML IVPB ONE (14:12)
[2020-06-14 14:14] LABS: PHOSPHOROUS 3.2 mg/dL (2.5-4.9)
[2020-06-14] MEDS: GABAPENTIN 300 MG CAPSULE PO SCH ×2 (14:25→21:09)
[2020-06-14] MEDS ORDERED: GABAPENTIN 100 MG CAPSULE ONE ×2 (15:13→20:44)
[2020-06-14] MEDS: AZTREONAM 2 GM in DEXTROSE 5%-WATER 100 ML IVPB SCH ×2 (16:25→21:01)
[2020-06-14] MEDS ORDERED: MAGNESIUM SULFATE 2 GM in DEXTROSE 5%-WATER 100 ML IVPB ONE (16:29)
[2020-06-14] MEDS: INSULIN SLIDING SCALE (NOVOLOG) 1 VIAL SQ SCH (16:55)
[2020-06-14] MEDS ORDERED: VANCOMYCIN 1 GRAM (PRE-DOCKED) 1,000 MG/250 ML BAG IVPB ONE (19:00)
[2020-06-14] MEDS ORDERED: MAGNESIUM SULFATE IN WATER 2 GM/50 ML IVPB IVPB ONE (19:00)
[2020-06-14] MEDS ORDERED: CARVEDILOL 3.125 MG TABLET (FP) ONE (20:43)
[2020-06-14] MEDS ORDERED: APIXABAN 5 MG TABLET ONE (20:43)
[2020-06-14] MEDS ORDERED: ATORVASTATIN CA 40 MG TABLET (FP) ONE (20:43)
[2020-06-14] MEDS: CARVEDILOL 3.125 MG TABLET (FP) PO SCH (21:09)
[2020-06-14] MEDS: APIXABAN 5 MG TABLET PO SCH (21:09)
[2020-06-14] MEDS: ATORVASTATIN CA 40 MG TABLET (FP) PO SCH (21:11)
[2020-06-14 21:17] LABS: CALCIUM 9.2 mg/dL (8.5-10.1)
[2020-06-14 21:18] LABS: BLOOD UREA NITROGEN 19.8 mg/dL (7-18)
[2020-06-14 21:21] LABS: CREATININE 1.4 mg/dL (0.55-1.3)
[2020-06-14 21:30] LABS: POTASSIUM 6.1 mmol/L (3.5-5.1)
[2020-06-14] MEDS: SACUBITRIL/VALSARTAN 24 MG-26 MG TABLET PO SCH (22:04)
[2020-06-14] MEDS: BUDESONIDE/FORMETEROL FUMARATE 80/4.5 mcg INHALER IH SCH (22:04)
[2020-06-14] MEDS: NYSTATIN POWDER 100,000 UNITS/GM - 15 GM TOPICAL POWDER TP SCH (22:04)
[2020-06-15] MEDS: VANCOMYCIN PREMIX 1.5 GM 1,500 MG/300 ML BAG IVPB SCH ×2 (00:56→11:35)
[2020-06-15] MEDS: VANCOMYCIN 250 MG/5 ML ORAL SOLUTION PO SCH ×4 (00:56→17:46)
[2020-06-15] MEDS: AZTREONAM 2 GM in DEXTROSE 5%-WATER 100 ML IVPB SCH ×3 (02:20→17:46)
[2020-06-15] MEDS: GABAPENTIN 300 MG CAPSULE PO SCH ×3 (06:07→21:27)
[2020-06-15] MEDS: INSULIN SLIDING SCALE (NOVOLOG) 1 VIAL SQ SCH ×3 (07:16→17:31)
[2020-06-15] MEDS ORDERED: ACETAMINOPHEN 325 MG TABLET (FP) ONE ×2 (07:31→12:50)
[2020-06-15] MEDS: ACETAMINOPHEN 325 MG TABLET (FP) PO PRN ×3 (07:33→19:40)
[2020-06-15] MEDS ORDERED: APIXABAN 5 MG TABLET ONE ×2 (09:17→21:06)
[2020-06-15] MEDS ORDERED: FUROSEMIDE 40 MG TABLET (FP) ONE ×2 (09:17→09:19)
[2020-06-15] MEDS ORDERED: PANTOPRAZOLE 20 MG TABLET PO ONE (09:18)
[2020-06-15] MEDS ORDERED: DIGOXIN 0.125 MG TABLET (FP) ONE (09:19)
[2020-06-15] MEDS ORDERED: CARVEDILOL 3.125 MG TABLET (FP) ONE ×3 (09:19→21:07)
[2020-06-15] MEDS: COLLAGENASE CLOSTRIDIUM HIST. 30 GRAMS TUBE TP SCH (09:44)
[2020-06-15] MEDS: APIXABAN 5 MG TABLET PO SCH ×2 (09:44→21:27)
[2020-06-15] MEDS: PANTOPRAZOLE 20 MG TABLET PO SCH (09:44)
[2020-06-15] MEDS: CARVEDILOL 3.125 MG TABLET (FP) PO SCH ×2 (09:44→21:26)
[2020-06-15] MEDS: SACUBITRIL/VALSARTAN 24 MG-26 MG TABLET PO SCH ×2 (09:44→21:27)
[2020-06-15] MEDS: NYSTATIN POWDER 100,000 UNITS/GM - 15 GM TOPICAL POWDER TP SCH ×2 (09:44→21:27)
[2020-06-15] MEDS: DIGOXIN 0.125 MG TABLET (FP) PO SCH (09:44)
[2020-06-15] MEDS: FUROSEMIDE 40 MG TABLET (FP) PO SCH (09:44)
[2020-06-15] MEDS: BUDESONIDE/FORMETEROL FUMARATE 80/4.5 mcg INHALER IH SCH ×2 (09:45→21:27)
[2020-06-15] MEDS ORDERED: PATIENT'S OWN MEDICATION (NON-FORMULARY) (Ipratropium/Albuterol Sulfate 1 PUFF Inhaler) IH SCH (10:00)
[2020-06-15 12:00] LABS: BASO % 0.7 % (0-2.0); EOS % 0.2 % (0-4.5); HEMATOCRIT 31.7 % (32.4-45.2); HEMOGLOBIN 9.9 GM/dL (10.7-15.3); LYMPH % 4.4 % (8-40); MCH 23.9 pg (25.7-33.7); MCHC 31.3 g/dl (32.0-36.0); MEAN CELL VOLUME 76.4 fl (80-96); MEAN PLT VOLUME 9.4 fl (7.5-11.1); MONO % 3.2 % (3.8-10.2); NEUT % 91.5 % (42.8-82.8); PLATELET COUNT 206 K/MM3 (134-434); RBC 4.15 M/mm3 (3.60-5.2); RDW 27.2 % (11.6-15.6)
[2020-06-15 12:28] LABS: POTASSIUM 3.6 mmol/L (3.5-5.1)
[2020-06-15 12:30] LABS: CALCIUM 8.5 mg/dL (8.5-10.1)
[2020-06-15 12:31] LABS: ALBUMIN 2.7 g/dl (3.4-5.0)
[2020-06-15 12:34] LABS: CREATININE 1.3 mg/dL (0.55-1.3)
[2020-06-15 12:35] LABS: TOT PROT 6.7 g/dl (6.4-8.2)
[2020-06-15 13:33] LABS: ANISOCYTOSIS 1+; MACROCYTOSIS 0; OVALOCYTE 1+; PLATELET ESTIMATE NORMAL; TARGET CELLS 1+; TEAR DROP CELLS 0
[2020-06-15] MEDS ORDERED: GABAPENTIN 100 MG CAPSULE ONE ×2 (13:52→21:07)
[2020-06-15] MEDS ORDERED: ACETAMINOPHEN 650 MG/20.3 ML ORAL SOLUTION (CUPS) ONE (19:26)
[2020-06-15] MEDS ORDERED: LIDOCAINE HCL 2% JELLY 10 ML CARTRIDGE ONE (19:29)
[2020-06-15] MEDS ORDERED: ATORVASTATIN CA 40 MG TABLET (FP) ONE (21:07)
[2020-06-15] MEDS: ATORVASTATIN CA 40 MG TABLET (FP) PO SCH (21:27)
[2020-06-16] MEDS: VANCOMYCIN PREMIX 1.5 GM 1,500 MG/300 ML BAG IVPB SCH ×2 (00:42→17:58)
[2020-06-16] MEDS: VANCOMYCIN 250 MG/5 ML ORAL SOLUTION PO SCH ×4 (00:42→19:12)
[2020-06-16] MEDS ORDERED: ACETAMINOPHEN 650 MG/20.3 ML ORAL SOLUTION (CUPS) ONE ×2 (00:43→05:38)
[2020-06-16] MEDS: ACETAMINOPHEN 325 MG TABLET (FP) PO PRN ×2 (01:25→19:34)
[2020-06-16] MEDS: AZTREONAM 2 GM in DEXTROSE 5%-WATER 100 ML IVPB SCH ×3 (02:07→20:27)
[2020-06-16] MEDS ORDERED: LIDOCAINE 5% TOPICAL PATCH ONE (03:17)
[2020-06-16] MEDS ORDERED: MELATONIN 5 MG TABLETS PO ONE (03:21)
[2020-06-16] MEDS ORDERED: LIDOCAINE 5% TOPICAL PATCH TP SCH (03:30)
[2020-06-16] MEDS ORDERED: LIDOCAINE 5% TOPICAL PATCH TP ONE (03:31)
[2020-06-16] MEDS ORDERED: SIMETHICONE 80 MG TAB.CHEW (FP) PO ONE (05:48)
[2020-06-16] MEDS: GABAPENTIN 300 MG CAPSULE PO SCH ×3 (05:50→23:05)
[2020-06-16] MEDS ORDERED: ACETAMINOPHEN 325 MG TABLET (FP) ONE ×2 (05:52→19:32)
[2020-06-16] MEDS: INSULIN SLIDING SCALE (NOVOLOG) 1 VIAL SQ SCH ×3 (06:11→17:56)
[2020-06-16 09:13] LABS: HEMATOCRIT 30.5 % (32.4-45.2); HEMOGLOBIN 9.7 GM/dL (10.7-15.3); MCH 24.3 pg (25.7-33.7); MCHC 31.7 g/dl (32.0-36.0); MEAN CELL VOLUME 76.8 fl (80-96); MEAN PLT VOLUME 9.3 fl (7.5-11.1); PLATELET COUNT 182 K/MM3 (134-434); RBC 3.97 M/mm3 (3.60-5.2); RDW 27.5 % (11.6-15.6); WHITE BLOOD COUNT 8.4 K/mm3 (4.0-10.0)
[2020-06-16 10:51] LABS: POTASSIUM 3.7 mmol/L (3.5-5.1)
[2020-06-16 10:52] LABS: BLOOD UREA NITROGEN 35.4 mg/dL (7-18); CALCIUM 8.2 mg/dL (8.5-10.1)
[2020-06-16 10:55] LABS: CREATININE 1.4 mg/dL (0.55-1.3)
[2020-06-16] MEDS: SACUBITRIL/VALSARTAN 24 MG-26 MG TABLET PO SCH ×2 (11:01→23:04)
[2020-06-16] MEDS: NYSTATIN POWDER 100,000 UNITS/GM - 15 GM TOPICAL POWDER TP SCH (11:02)
[2020-06-16] MEDS ORDERED: APIXABAN 5 MG TABLET ONE (11:05)
[2020-06-16] MEDS ORDERED: DIGOXIN 0.125 MG TABLET (FP) ONE (11:05)
[2020-06-16] MEDS ORDERED: FUROSEMIDE 40 MG TABLET (FP) ONE (11:05)
[2020-06-16] MEDS ORDERED: PANTOPRAZOLE 20 MG TABLET PO ONE (11:06)
[2020-06-16] MEDS ORDERED: CARVEDILOL 3.125 MG TABLET (FP) ONE (11:08)
[2020-06-16] MEDS: APIXABAN 5 MG TABLET PO SCH ×2 (11:17→23:04)
[2020-06-16] MEDS: CARVEDILOL 3.125 MG TABLET (FP) PO SCH ×2 (11:17→23:04)
[2020-06-16] MEDS: DIGOXIN 0.125 MG TABLET (FP) PO SCH (11:17)
[2020-06-16] MEDS: COLLAGENASE CLOSTRIDIUM HIST. 30 GRAMS TUBE TP SCH (11:18)
[2020-06-16] MEDS: BUDESONIDE/FORMETEROL FUMARATE 80/4.5 mcg INHALER IH SCH (11:18)
[2020-06-16] MEDS: FUROSEMIDE 40 MG TABLET (FP) PO SCH (11:18)
[2020-06-16] MEDS: PANTOPRAZOLE 20 MG TABLET PO SCH (11:18)
[2020-06-16 20:10] LABS: HEP B CORE AB, TOT Negative (Negative)
[2020-06-16] MEDS ORDERED: LIDOCAINE PATCH REMOVAL MC SCH (22:00)
[2020-06-16] MEDS: ATORVASTATIN CA 40 MG TABLET (FP) PO SCH (23:04)
[2020-06-17] MEDS: VANCOMYCIN PREMIX 1.5 GM 1,500 MG/300 ML BAG IVPB SCH ×2 (00:12→11:46)
[2020-06-17] MEDS: NYSTATIN POWDER 100,000 UNITS/GM - 15 GM TOPICAL POWDER TP SCH ×3 (00:12→22:24)
[2020-06-17] MEDS: LIDOCAINE PATCH REMOVAL MC SCH ×2 (00:12→22:59)
[2020-06-17] MEDS: BUDESONIDE/FORMETEROL FUMARATE 80/4.5 mcg INHALER IH SCH ×3 (00:12→22:24)
[2020-06-17] MEDS: VANCOMYCIN 250 MG/5 ML ORAL SOLUTION PO SCH ×4 (00:13→18:02)
[2020-06-17] MEDS: AZTREONAM 2 GM in DEXTROSE 5%-WATER 100 ML IVPB SCH ×3 (02:59→18:02)
[2020-06-17] MEDS: GABAPENTIN 300 MG CAPSULE PO SCH ×3 (05:42→22:25)
[2020-06-17] MEDS: ACETAMINOPHEN 325 MG TABLET (FP) PO PRN ×2 (06:13→11:43)
[2020-06-17] MEDS: INSULIN SLIDING SCALE (NOVOLOG) 1 VIAL SQ SCH ×3 (06:45→17:01)
[2020-06-17] MEDS ORDERED: PT OWN MED DRAWER 7, Y5N ONE ×3 (09:52→23:46)
[2020-06-17] MEDS: LIDOCAINE 5% TOPICAL PATCH TP SCH (10:18)
[2020-06-17] MEDS: FUROSEMIDE 40 MG TABLET (FP) PO SCH (10:19)
[2020-06-17] MEDS: COLLAGENASE CLOSTRIDIUM HIST. 30 GRAMS TUBE TP SCH (10:20)
[2020-06-17] MEDS: APIXABAN 5 MG TABLET PO SCH ×2 (10:20→22:25)
[2020-06-17] MEDS: CARVEDILOL 3.125 MG TABLET (FP) PO SCH ×2 (10:20→22:25)
[2020-06-17] MEDS: DIGOXIN 0.125 MG TABLET (FP) PO SCH (10:20)
[2020-06-17] MEDS: PANTOPRAZOLE 20 MG TABLET PO SCH (10:20)
[2020-06-17] MEDS: SACUBITRIL/VALSARTAN 24 MG-26 MG TABLET PO SCH ×2 (10:20→22:25)
[2020-06-17] MEDS ORDERED: oxyCODONE HCL 5 MG TABLET PO PRN (10:51)
[2020-06-17] MEDS: oxyCODONE HCL 5 MG TABLET PO PRN ×2 (16:29→22:25)
[2020-06-17] MEDS: ATORVASTATIN CA 40 MG TABLET (FP) PO SCH (22:25)
[2020-06-18] MEDS: VANCOMYCIN PREMIX 1.5 GM 1,500 MG/300 ML BAG IVPB SCH ×2 (00:01→12:19)
[2020-06-18] MEDS: VANCOMYCIN 250 MG/5 ML ORAL SOLUTION PO SCH ×4 (00:04→17:32)
[2020-06-18] MEDS ORDERED: PT OWN MED DRAWER 7, Y5N ONE ×3 (02:51→16:11)
[2020-06-18] MEDS: AZTREONAM 2 GM in DEXTROSE 5%-WATER 100 ML IVPB SCH ×3 (02:54→17:32)
[2020-06-18] MEDS: GABAPENTIN 300 MG CAPSULE PO SCH ×3 (05:47→22:11)
[2020-06-18] MEDS: oxyCODONE HCL 5 MG TABLET PO PRN ×3 (05:48→14:26)
[2020-06-18] MEDS: INSULIN SLIDING SCALE (NOVOLOG) 1 VIAL SQ SCH ×3 (06:29→16:21)
[2020-06-18] MEDS: COLLAGENASE CLOSTRIDIUM HIST. 30 GRAMS TUBE TP SCH (10:29)
[2020-06-18] MEDS: NYSTATIN POWDER 100,000 UNITS/GM - 15 GM TOPICAL POWDER TP SCH ×2 (10:29→22:12)
[2020-06-18] MEDS: SACUBITRIL/VALSARTAN 24 MG-26 MG TABLET PO SCH ×2 (10:50→22:11)
[2020-06-18] MEDS: CARVEDILOL 3.125 MG TABLET (FP) PO SCH ×2 (10:50→22:11)
[2020-06-18] MEDS: PANTOPRAZOLE 20 MG TABLET PO SCH (10:50)
[2020-06-18] MEDS: DIGOXIN 0.125 MG TABLET (FP) PO SCH (10:50)
[2020-06-18] MEDS: FUROSEMIDE 40 MG TABLET (FP) PO SCH (10:50)
[2020-06-18] MEDS: LIDOCAINE 5% TOPICAL PATCH TP SCH (10:50)
[2020-06-18] MEDS: APIXABAN 5 MG TABLET PO SCH ×2 (10:50→22:11)
[2020-06-18] MEDS: BUDESONIDE/FORMETEROL FUMARATE 80/4.5 mcg INHALER IH SCH ×2 (10:51→22:12)
[2020-06-18 13:18] LABS: BASO % 2.2 % (0-2.0); EOS % 4.5 % (0-4.5); HEMATOCRIT 33.2 % (32.4-45.2); HEMOGLOBIN 10.2 GM/dL (10.7-15.3); LYMPH % 16.7 % (8-40); MCH 24.3 pg (25.7-33.7); MCHC 30.8 g/dl (32.0-36.0); MEAN PLT VOLUME 9.4 fl (7.5-11.1); MONO % 12.5 % (3.8-10.2); NEUT % 64.1 % (42.8-82.8); PLATELET COUNT 226 K/MM3 (134-434); RBC 4.21 M/mm3 (3.60-5.2); RDW 28.4 % (11.6-15.6); WHITE BLOOD COUNT 5.7 K/mm3 (4.0-10.0)
[2020-06-18 13:42] LABS: POTASSIUM 4.1 mmol/L (3.5-5.1)
[2020-06-18 13:45] LABS: BLOOD UREA NITROGEN 35.2 mg/dL (7-18)
[2020-06-18 13:48] LABS: ALBUMIN 2.5 g/dl (3.4-5.0)
[2020-06-18 13:49] LABS: CREATININE 1.2 mg/dL (0.55-1.3)
[2020-06-18 13:50] LABS: BILIRUBIN,TOTAL 1.4 mg/dL (0.2-1); BLOOD UREA NITROGEN 36.5 mg/dL (7-18); CALCIUM 8.9 mg/dL (8.5-10.1)
[2020-06-18 13:51] LABS: ALBUMIN 2.6 g/dl (3.4-5.0); MAGNESIUM 1.6 mg/dL (1.8-2.4)
[2020-06-18 13:54] LABS: CREATININE 1.2 mg/dL (0.55-1.3)
[2020-06-18 13:55] LABS: TOT PROT 7.1 g/dl (6.4-8.2)
[2020-06-18 13:56] LABS: BILIRUBIN,TOTAL 1.2 mg/dL (0.2-1)
[2020-06-18 14:49] LABS: ANISOCYTOSIS 1+; MACROCYTOSIS 0; PLATELET ESTIMATE DECREASED
[2020-06-18] MEDS: MAGNESIUM OXIDE 400 MG TABLET (FP) PO ONE ×2 (18:39→19:28)
[2020-06-18] MEDS ORDERED: LORazepam 1 MG TABLET PO ONE ×2 (18:43→19:00)
[2020-06-18] MEDS ORDERED: LORazepam 2 MG TABLET PO ONE (18:43)
[2020-06-18] MEDS: LIDOCAINE PATCH REMOVAL MC SCH (22:11)
[2020-06-18] MEDS: ATORVASTATIN CA 40 MG TABLET (FP) PO SCH (22:11)
[2020-06-19] MEDS: VANCOMYCIN 250 MG/5 ML ORAL SOLUTION PO SCH ×4 (01:21→17:38)
[2020-06-19] MEDS: AZTREONAM 2 GM in DEXTROSE 5%-WATER 100 ML IVPB SCH ×4 (02:38→18:23)
[2020-06-19] MEDS: GABAPENTIN 300 MG CAPSULE PO SCH ×3 (05:42→22:13)
[2020-06-19] MEDS: INSULIN SLIDING SCALE (NOVOLOG) 1 VIAL SQ SCH ×3 (06:12→17:37)
[2020-06-19 06:56] LABS: BASO % 1.5 % (0-2.0); EOS % 3.2 % (0-4.5); HEMATOCRIT 35.9 % (32.4-45.2); LYMPH % 13.3 % (8-40); MCH 24.2 pg (25.7-33.7); MCHC 30.7 g/dl (32.0-36.0); MEAN CELL VOLUME 78.7 fl (80-96); MEAN PLT VOLUME 9.2 fl (7.5-11.1); MONO % 13.2 % (3.8-10.2); NEUT % 68.8 % (42.8-82.8); PLATELET COUNT 210 K/MM3 (134-434); RBC 4.57 M/mm3 (3.60-5.2); RDW 27.3 % (11.6-15.6); WHITE BLOOD COUNT 7.6 K/mm3 (4.0-10.0)
[2020-06-19 07:23] LABS: POTASSIUM 4.3 mmol/L (3.5-5.1)
[2020-06-19 07:30] LABS: CALCIUM 9.2 mg/dL (8.5-10.1)
[2020-06-19 07:31] LABS: ALBUMIN 2.6 g/dl (3.4-5.0); BLOOD UREA NITROGEN 35.5 mg/dL (7-18); MAGNESIUM 1.6 mg/dL (1.8-2.4)
[2020-06-19 07:34] LABS: CREATININE 1.1 mg/dL (0.55-1.3)
[2020-06-19 07:35] LABS: BILIRUBIN,TOTAL 1.4 mg/dL (0.2-1)
[2020-06-19] MEDS: LIDOCAINE 5% TOPICAL PATCH TP SCH (10:10)
[2020-06-19] MEDS: APIXABAN 5 MG TABLET PO SCH ×2 (10:13→22:13)
[2020-06-19] MEDS: CARVEDILOL 3.125 MG TABLET (FP) PO SCH ×2 (10:13→22:13)
[2020-06-19] MEDS: FUROSEMIDE 40 MG TABLET (FP) PO SCH (10:13)
[2020-06-19] MEDS: COLLAGENASE CLOSTRIDIUM HIST. 30 GRAMS TUBE TP SCH (10:14)
[2020-06-19] MEDS: PANTOPRAZOLE 20 MG TABLET PO SCH (10:14)
[2020-06-19] MEDS: NYSTATIN POWDER 100,000 UNITS/GM - 15 GM TOPICAL POWDER TP SCH ×2 (10:14→22:29)
[2020-06-19] MEDS: SACUBITRIL/VALSARTAN 24 MG-26 MG TABLET PO SCH ×2 (10:14→22:12)
[2020-06-19] MEDS: DIGOXIN 0.125 MG TABLET (FP) PO SCH (10:14)
[2020-06-19] MEDS: BUDESONIDE/FORMETEROL FUMARATE 80/4.5 mcg INHALER IH SCH ×2 (10:15→22:29)
[2020-06-19] MEDS ORDERED: PT OWN MED DRAWER 7, Y5N ONE (17:00)
[2020-06-19] MEDS: ATORVASTATIN CA 40 MG TABLET (FP) PO SCH (22:12)
[2020-06-19] MEDS: oxyCODONE HCL 5 MG TABLET PO PRN (22:13)
[2020-06-19] MEDS: LIDOCAINE PATCH REMOVAL MC SCH (22:15)
[2020-06-20] MEDS: VANCOMYCIN 250 MG/5 ML ORAL SOLUTION PO SCH ×4 (01:43→17:42)
[2020-06-20] MEDS: AZTREONAM 2 GM in DEXTROSE 5%-WATER 100 ML IVPB SCH ×3 (01:43→17:43)
[2020-06-20] MEDS: GABAPENTIN 300 MG CAPSULE PO SCH ×3 (05:21→21:41)
[2020-06-20] MEDS: INSULIN SLIDING SCALE (NOVOLOG) 1 VIAL SQ SCH ×3 (06:15→16:51)
[2020-06-20 07:10] LABS: BASO % 2.2 % (0-2.0); EOS % 2.9 % (0-4.5); HEMATOCRIT 32.1 % (32.4-45.2); HEMOGLOBIN 10.1 GM/dL (10.7-15.3); LYMPH % 17.9 % (8-40); MCH 24.7 pg (25.7-33.7); MCHC 31.5 g/dl (32.0-36.0); MEAN CELL VOLUME 78.3 fl (80-96); MEAN PLT VOLUME 8.9 fl (7.5-11.1); MONO % 14.6 % (3.8-10.2); NEUT % 62.4 % (42.8-82.8); PLATELET COUNT 211 K/MM3 (134-434); RDW 27.3 % (11.6-15.6); WHITE BLOOD COUNT 6.1 K/mm3 (4.0-10.0)
[2020-06-20 07:41] LABS: BLOOD UREA NITROGEN 29.6 mg/dL (7-18); CALCIUM 8.6 mg/dL (8.5-10.1)
[2020-06-20 07:42] LABS: ALBUMIN 2.5 g/dl (3.4-5.0); CREATININE 1.2 mg/dL (0.55-1.3)
[2020-06-20 07:44] LABS: BILIRUBIN,TOTAL 1.6 mg/dL (0.2-1); TOT PROT 6.8 g/dl (6.4-8.2)
[2020-06-20 08:45] LABS: MAGNESIUM 1.6 mg/dL (1.8-2.4)
[2020-06-20] MEDS ORDERED: PT OWN MED DRAWER 7, Y5N ONE ×2 (08:48→17:15)
[2020-06-20] MEDS ORDERED: LORazepam 1 MG TABLET PO PRN (09:01)
[2020-06-20] MEDS: oxyCODONE HCL 5 MG TABLET PO PRN (09:58)
[2020-06-20] MEDS: DIGOXIN 0.125 MG TABLET (FP) PO SCH (10:03)
[2020-06-20] MEDS: CARVEDILOL 3.125 MG TABLET (FP) PO SCH (10:04)
[2020-06-20] MEDS: SACUBITRIL/VALSARTAN 24 MG-26 MG TABLET PO SCH ×2 (10:04→21:41)
[2020-06-20] MEDS: FUROSEMIDE 40 MG TABLET (FP) PO SCH (10:04)
[2020-06-20] MEDS: APIXABAN 5 MG TABLET PO SCH ×2 (10:04→21:41)
[2020-06-20] MEDS: PANTOPRAZOLE 20 MG TABLET PO SCH (10:05)
[2020-06-20] MEDS: LIDOCAINE 5% TOPICAL PATCH TP SCH (10:06)
[2020-06-20] MEDS ORDERED: CARVEDILOL 6.25 MG TABLET (FP) PO SCH (10:15)
[2020-06-20] MEDS: COLLAGENASE CLOSTRIDIUM HIST. 30 GRAMS TUBE TP SCH (10:30)
[2020-06-20] MEDS: NYSTATIN POWDER 100,000 UNITS/GM - 15 GM TOPICAL POWDER TP SCH ×2 (10:31→21:42)
[2020-06-20 11:06] LABS: ANISOCYTOSIS 2+; MACROCYTOSIS 1+; OVALOCYTE 1+; PLATELET ESTIMATE NORMAL
[2020-06-20] MEDS: BUDESONIDE/FORMETEROL FUMARATE 80/4.5 mcg INHALER IH SCH ×2 (11:21→21:42)
[2020-06-20] MEDS ORDERED: CARVEDILOL 3.125 MG TABLET (FP) PO ONE (11:45)
[2020-06-20] MEDS: ATORVASTATIN CA 40 MG TABLET (FP) PO SCH (21:41)
[2020-06-20] MEDS: CARVEDILOL 6.25 MG TABLET (FP) PO SCH (21:41)
[2020-06-20] MEDS: LIDOCAINE PATCH REMOVAL MC SCH (22:22)
[2020-06-21] MEDS: VANCOMYCIN 250 MG/5 ML ORAL SOLUTION PO SCH ×5 (00:55→23:19)
[2020-06-21] MEDS ORDERED: PT OWN MED DRAWER 7, Y5N ONE ×3 (01:57→18:40)
[2020-06-21] MEDS: oxyCODONE HCL 5 MG TABLET PO PRN ×2 (02:00→16:38)
[2020-06-21] MEDS: AZTREONAM 2 GM in DEXTROSE 5%-WATER 100 ML IVPB SCH ×3 (02:02→18:43)
[2020-06-21] MEDS: GABAPENTIN 300 MG CAPSULE PO SCH ×3 (05:11→23:09)
[2020-06-21] MEDS: INSULIN SLIDING SCALE (NOVOLOG) 1 VIAL SQ SCH ×3 (06:44→16:44)
[2020-06-21] MEDS: APIXABAN 5 MG TABLET PO SCH ×2 (10:17→23:09)
[2020-06-21] MEDS: DIGOXIN 0.125 MG TABLET (FP) PO SCH (10:17)
[2020-06-21] MEDS: FUROSEMIDE 40 MG TABLET (FP) PO SCH (10:18)
[2020-06-21] MEDS: CARVEDILOL 6.25 MG TABLET (FP) PO SCH ×2 (10:18→23:09)
[2020-06-21] MEDS: PANTOPRAZOLE 20 MG TABLET PO SCH (10:18)
[2020-06-21] MEDS: SACUBITRIL/VALSARTAN 24 MG-26 MG TABLET PO SCH ×2 (10:18→23:09)
[2020-06-21] MEDS: LIDOCAINE 5% TOPICAL PATCH TP SCH (10:20)
[2020-06-21] MEDS: COLLAGENASE CLOSTRIDIUM HIST. 30 GRAMS TUBE TP SCH (10:25)
[2020-06-21] MEDS: NYSTATIN POWDER 100,000 UNITS/GM - 15 GM TOPICAL POWDER TP SCH ×2 (10:25→23:12)
[2020-06-21] MEDS: BUDESONIDE/FORMETEROL FUMARATE 80/4.5 mcg INHALER IH SCH ×2 (10:25→23:07)
[2020-06-21 10:46] LABS: BASO % 1.9 % (0-2.0); EOS % 3.2 % (0-4.5); HEMATOCRIT 33.5 % (32.4-45.2); HEMOGLOBIN 10.3 GM/dL (10.7-15.3); LYMPH % 18.5 % (8-40); MCH 24.5 pg (25.7-33.7); MCHC 30.6 g/dl (32.0-36.0); MEAN PLT VOLUME 8.9 fl (7.5-11.1); MONO % 13.6 % (3.8-10.2); NEUT % 62.8 % (42.8-82.8); PLATELET COUNT 228 K/MM3 (134-434); RBC 4.19 M/mm3 (3.60-5.2); RDW 27.6 % (11.6-15.6); WHITE BLOOD COUNT 5.7 K/mm3 (4.0-10.0)
[2020-06-21 11:10] LABS: POTASSIUM 3.8 mmol/L (3.5-5.1)
[2020-06-21 11:12] LABS: CALCIUM 9.2 mg/dL (8.5-10.1)
[2020-06-21 11:14] LABS: ALBUMIN 2.6 g/dl (3.4-5.0)
[2020-06-21 11:17] LABS: BILIRUBIN,TOTAL 1.7 mg/dL (0.2-1); TOT PROT 7.2 g/dl (6.4-8.2)
[2020-06-21 19:21] VITALS: BMI 39.9
[2020-06-21] MEDS: ATORVASTATIN CA 40 MG TABLET (FP) PO SCH (23:09)
[2020-06-21] MEDS: LIDOCAINE PATCH REMOVAL MC SCH (23:20)
[2020-06-22] MEDS ORDERED: PT OWN MED DRAWER 7, Y5N ONE ×4 (01:59→23:54)
[2020-06-22] MEDS: AZTREONAM 2 GM in DEXTROSE 5%-WATER 100 ML IVPB SCH ×3 (02:02→18:04)
[2020-06-22] MEDS: oxyCODONE HCL 5 MG TABLET PO PRN ×3 (02:08→23:54)
[2020-06-22] MEDS: INSULIN SLIDING SCALE (NOVOLOG) 1 VIAL SQ SCH ×3 (06:41→18:38)
[2020-06-22] MEDS: GABAPENTIN 300 MG CAPSULE PO SCH ×3 (06:41→21:14)
[2020-06-22] MEDS: VANCOMYCIN 250 MG/5 ML ORAL SOLUTION PO SCH ×4 (06:41→23:54)
[2020-06-22 08:37] LABS: BASO % 0.3 % (0-2.0); EOS % 3.3 % (0-4.5); HEMATOCRIT 33.3 % (32.4-45.2); HEMOGLOBIN 10.4 GM/dL (10.7-15.3); LYMPH % 18.3 % (8-40); MCH 24.8 pg (25.7-33.7); MCHC 31.3 g/dl (32.0-36.0); MEAN CELL VOLUME 79.1 fl (80-96); MEAN PLT VOLUME 8.7 fl (7.5-11.1); MONO % 11.2 % (3.8-10.2); NEUT % 66.9 % (42.8-82.8); PLATELET COUNT 262 K/MM3 (134-434); RDW 27.5 % (11.6-15.6); WHITE BLOOD COUNT 5.7 K/mm3 (4.0-10.0)
[2020-06-22] MEDS: SACUBITRIL/VALSARTAN 24 MG-26 MG TABLET PO SCH ×2 (09:32→21:14)
[2020-06-22] MEDS: FUROSEMIDE 40 MG TABLET (FP) PO SCH (09:32)
[2020-06-22] MEDS: CARVEDILOL 6.25 MG TABLET (FP) PO SCH ×2 (09:32→21:14)
[2020-06-22] MEDS: PANTOPRAZOLE 20 MG TABLET PO SCH (09:32)
[2020-06-22] MEDS: APIXABAN 5 MG TABLET PO SCH ×2 (09:32→21:14)
[2020-06-22] MEDS: COLLAGENASE CLOSTRIDIUM HIST. 30 GRAMS TUBE TP SCH (09:33)
[2020-06-22] MEDS: NYSTATIN POWDER 100,000 UNITS/GM - 15 GM TOPICAL POWDER TP SCH ×2 (09:33→21:14)
[2020-06-22] MEDS: LIDOCAINE 5% TOPICAL PATCH TP SCH (09:33)
[2020-06-22] MEDS: BUDESONIDE/FORMETEROL FUMARATE 80/4.5 mcg INHALER IH SCH ×2 (09:33→21:14)
[2020-06-22 11:10] LABS: ANISOCYTOSIS 2+; MACROCYTOSIS 1+; OVALOCYTE 1+; PLATELET ESTIMATE NORMAL; TARGET CELLS 1+
[2020-06-22] MEDS: DIGOXIN 0.125 MG TABLET (FP) PO SCH (12:31)
[2020-06-22] MEDS: ATORVASTATIN CA 40 MG TABLET (FP) PO SCH (21:14)
[2020-06-22] MEDS: LIDOCAINE PATCH REMOVAL MC SCH (21:15)
[2020-06-22] MEDS: VANCOMYCIN PREMIX 1.5 GM 1,500 MG/300 ML BAG IVPB SCH (23:54)
[2020-06-23] MEDS: AZTREONAM 2 GM in DEXTROSE 5%-WATER 100 ML IVPB SCH ×3 (02:28→17:17)
[2020-06-23] MEDS: GABAPENTIN 300 MG CAPSULE PO SCH ×3 (06:18→22:25)
[2020-06-23] MEDS: INSULIN SLIDING SCALE (NOVOLOG) 1 VIAL SQ SCH ×3 (06:18→17:29)
[2020-06-23] MEDS: VANCOMYCIN 250 MG/5 ML ORAL SOLUTION PO SCH ×4 (06:55→23:21)
[2020-06-23] MEDS: COLLAGENASE CLOSTRIDIUM HIST. 30 GRAMS TUBE TP SCH (09:15)
[2020-06-23] MEDS ORDERED: PT OWN MED DRAWER 7, Y5N ONE (10:17)
[2020-06-23 10:36] LABS: BASO % 1.3 % (0-2.0); EOS % 2.7 % (0-4.5); HEMATOCRIT 33.3 % (32.4-45.2); HEMOGLOBIN 10.4 GM/dL (10.7-15.3); LYMPH % 13.7 % (8-40); MCH 25.1 pg (25.7-33.7); MCHC 31.3 g/dl (32.0-36.0); MEAN CELL VOLUME 80.2 fl (80-96); MEAN PLT VOLUME 8.8 fl (7.5-11.1); MONO % 9.2 % (3.8-10.2); NEUT % 73.1 % (42.8-82.8); PLATELET COUNT 294 K/MM3 (134-434); RBC 4.15 M/mm3 (3.60-5.2); RDW 27.8 % (11.6-15.6); WHITE BLOOD COUNT 6.4 K/mm3 (4.0-10.0)
[2020-06-23 10:59] LABS: POTASSIUM 4.6 mmol/L (3.5-5.1)
[2020-06-23 11:04] LABS: CALCIUM 9.2 mg/dL (8.5-10.1)
[2020-06-23 11:05] LABS: ALBUMIN 2.6 g/dl (3.4-5.0); BLOOD UREA NITROGEN 28.1 mg/dL (7-18); MAGNESIUM 1.6 mg/dL (1.8-2.4)
[2020-06-23 11:07] LABS: CREATININE 1.1 mg/dL (0.55-1.3)
[2020-06-23 11:09] LABS: BILIRUBIN,TOTAL 1.2 mg/dL (0.2-1); TOT PROT 7.5 g/dl (6.4-8.2)
[2020-06-23] MEDS: CARVEDILOL 6.25 MG TABLET (FP) PO SCH ×2 (11:29→22:25)
[2020-06-23] MEDS: FUROSEMIDE 40 MG TABLET (FP) PO SCH (11:30)
[2020-06-23] MEDS: DIGOXIN 0.125 MG TABLET (FP) PO SCH (11:30)
[2020-06-23] MEDS: SACUBITRIL/VALSARTAN 24 MG-26 MG TABLET PO SCH ×2 (11:30→22:25)
[2020-06-23] MEDS: APIXABAN 5 MG TABLET PO SCH ×2 (11:30→22:25)
[2020-06-23] MEDS: PANTOPRAZOLE 20 MG TABLET PO SCH (11:31)
[2020-06-23] MEDS: LIDOCAINE 5% TOPICAL PATCH TP SCH (11:31)
[2020-06-23] MEDS: NYSTATIN POWDER 100,000 UNITS/GM - 15 GM TOPICAL POWDER TP SCH ×2 (11:31→22:25)
[2020-06-23] MEDS: BUDESONIDE/FORMETEROL FUMARATE 80/4.5 mcg INHALER IH SCH ×2 (11:33→22:25)
[2020-06-23] MEDS: oxyCODONE HCL 5 MG TABLET PO PRN ×2 (12:00→23:21)
[2020-06-23] MEDS: VANCOMYCIN PREMIX 1.5 GM 1,500 MG/300 ML BAG IVPB SCH (13:55)
[2020-06-23] MEDS ORDERED: levoFLOXacin 750 MG TABLET PO ONE (15:55)
[2020-06-23] MEDS: DOXYCYCLINE HYCLATE 100 MG CAPSULE PO SCH (17:18)
[2020-06-23] MEDS: ATORVASTATIN CA 40 MG TABLET (FP) PO SCH (22:25)
[2020-06-23] MEDS: LIDOCAINE PATCH REMOVAL MC SCH (22:34)
[2020-06-24] MEDS ORDERED: PT OWN MED DRAWER 7, Y5N ONE ×3 (01:07→17:07)
[2020-06-24] MEDS: AZTREONAM 2 GM in DEXTROSE 5%-WATER 100 ML IVPB SCH ×3 (01:28→17:23)
[2020-06-24] MEDS: VANCOMYCIN 250 MG/5 ML ORAL SOLUTION PO SCH ×4 (06:56→23:00)
[2020-06-24] MEDS: INSULIN SLIDING SCALE (NOVOLOG) 1 VIAL SQ SCH ×3 (06:57→17:14)
[2020-06-24] MEDS: GABAPENTIN 300 MG CAPSULE PO SCH ×3 (06:57→22:59)
[2020-06-24 07:30] LABS: BASO % 1.6 % (0-2.0); EOS % 2.2 % (0-4.5); HEMATOCRIT 34.6 % (32.4-45.2); HEMOGLOBIN 10.7 GM/dL (10.7-15.3); LYMPH % 16.7 % (8-40); MCH 24.8 pg (25.7-33.7); MCHC 30.8 g/dl (32.0-36.0); MEAN CELL VOLUME 80.5 fl (80-96); MEAN PLT VOLUME 8.6 fl (7.5-11.1); MONO % 12.5 % (3.8-10.2); PLATELET COUNT 297 K/MM3 (134-434); RDW 27.7 % (11.6-15.6); WHITE BLOOD COUNT 6.5 K/mm3 (4.0-10.0)
[2020-06-24 08:03] LABS: ALBUMIN 2.6 g/dl (3.4-5.0); BLOOD UREA NITROGEN 32.6 mg/dL (7-18); CALCIUM 9.1 mg/dL (8.5-10.1); MAGNESIUM 1.5 mg/dL (1.8-2.4)
[2020-06-24 08:07] LABS: CREATININE 1.1 mg/dL (0.55-1.3)
[2020-06-24 08:08] LABS: BILIRUBIN,TOTAL 1.5 mg/dL (0.2-1); TOT PROT 7.6 g/dl (6.4-8.2)
[2020-06-24] MEDS: PANTOPRAZOLE 20 MG TABLET PO SCH (10:13)
[2020-06-24] MEDS: DIGOXIN 0.125 MG TABLET (FP) PO SCH (10:13)
[2020-06-24] MEDS: DOXYCYCLINE HYCLATE 100 MG CAPSULE PO SCH ×2 (10:13→17:15)
[2020-06-24] MEDS: SACUBITRIL/VALSARTAN 24 MG-26 MG TABLET PO SCH ×2 (10:13→22:59)
[2020-06-24] MEDS: CARVEDILOL 6.25 MG TABLET (FP) PO SCH ×2 (10:13→22:59)
[2020-06-24] MEDS: APIXABAN 5 MG TABLET PO SCH ×2 (10:13→22:59)
[2020-06-24] MEDS: FUROSEMIDE 40 MG TABLET (FP) PO SCH (10:14)
[2020-06-24] MEDS: oxyCODONE HCL 5 MG TABLET PO PRN ×2 (10:14→17:46)
[2020-06-24] MEDS: LIDOCAINE 5% TOPICAL PATCH TP SCH (10:15)
[2020-06-24] MEDS: COLLAGENASE CLOSTRIDIUM HIST. 30 GRAMS TUBE TP SCH (10:27)
[2020-06-24] MEDS: BUDESONIDE/FORMETEROL FUMARATE 80/4.5 mcg INHALER IH SCH ×2 (10:27→22:59)
[2020-06-24] MEDS: NYSTATIN POWDER 100,000 UNITS/GM - 15 GM TOPICAL POWDER TP SCH ×2 (10:27→22:59)
[2020-06-24] MEDS ORDERED: LORazepam 1 MG TABLET PO ONE ×2 (11:19→18:00)
[2020-06-24] MEDS: ATORVASTATIN CA 40 MG TABLET (FP) PO SCH (22:59)
[2020-06-24] MEDS: LIDOCAINE PATCH REMOVAL MC SCH (23:00)
[2020-06-25] MEDS ORDERED: PT OWN MED DRAWER 7, Y5N ONE ×2 (01:15→09:28)
[2020-06-25] MEDS: AZTREONAM 2 GM in DEXTROSE 5%-WATER 100 ML IVPB SCH ×2 (01:21→09:47)
[2020-06-25] MEDS: VANCOMYCIN 250 MG/5 ML ORAL SOLUTION PO SCH (06:19)
[2020-06-25] MEDS: GABAPENTIN 300 MG CAPSULE PO SCH ×3 (06:19→21:24)
[2020-06-25] MEDS: INSULIN SLIDING SCALE (NOVOLOG) 1 VIAL SQ SCH ×3 (06:20→17:17)
[2020-06-25] MEDS: PANTOPRAZOLE 20 MG TABLET PO SCH (09:43)
[2020-06-25] MEDS: oxyCODONE HCL 5 MG TABLET PO PRN (09:43)
[2020-06-25] MEDS: DOXYCYCLINE HYCLATE 100 MG CAPSULE PO SCH ×2 (09:43→17:19)
[2020-06-25] MEDS: CARVEDILOL 6.25 MG TABLET (FP) PO SCH ×2 (09:43→21:24)
[2020-06-25] MEDS: FUROSEMIDE 40 MG TABLET (FP) PO SCH (09:43)
[2020-06-25] MEDS: APIXABAN 5 MG TABLET PO SCH ×2 (09:43→21:24)
[2020-06-25] MEDS: DIGOXIN 0.125 MG TABLET (FP) PO SCH (09:45)
[2020-06-25] MEDS: SACUBITRIL/VALSARTAN 24 MG-26 MG TABLET PO SCH ×2 (09:45→21:24)
[2020-06-25] MEDS: NYSTATIN POWDER 100,000 UNITS/GM - 15 GM TOPICAL POWDER TP SCH ×2 (09:47→21:24)
[2020-06-25] MEDS: COLLAGENASE CLOSTRIDIUM HIST. 30 GRAMS TUBE TP SCH (09:47)
[2020-06-25] MEDS: BUDESONIDE/FORMETEROL FUMARATE 80/4.5 mcg INHALER IH SCH ×2 (09:47→21:25)
[2020-06-25] MEDS: LIDOCAINE 5% TOPICAL PATCH TP SCH (09:47)
[2020-06-25] MEDS: ATORVASTATIN CA 40 MG TABLET (FP) PO SCH (21:24)
[2020-06-25] MEDS: LIDOCAINE PATCH REMOVAL MC SCH (21:29)
[2020-06-25] MEDS: ACETAMINOPHEN 325 MG TABLET (FP) PO PRN (23:15)
[2020-06-26] MEDS: GABAPENTIN 300 MG CAPSULE PO SCH ×3 (05:57→22:11)
[2020-06-26] MEDS: INSULIN SLIDING SCALE (NOVOLOG) 1 VIAL SQ SCH ×3 (06:01→17:05)
[2020-06-26] MEDS ORDERED: DEXTROSE 5%-WATER - 50 ML IVPB ONE ×2 (09:55→17:16)
[2020-06-26] MEDS ORDERED: AZTREONAM 1 GM VIAL (RESTRICTED TO ID) ONE ×2 (09:55→17:15)
[2020-06-26] MEDS: AZTREONAM 1 GM in DEXTROSE 5%-WATER - 50 ML IVPB SCH ×2 (10:13→17:28)
[2020-06-26] MEDS: SACUBITRIL/VALSARTAN 24 MG-26 MG TABLET PO SCH ×2 (10:13→22:13)
[2020-06-26] MEDS: DOXYCYCLINE HYCLATE 100 MG CAPSULE PO SCH (10:13)
[2020-06-26] MEDS: FUROSEMIDE 40 MG TABLET (FP) PO SCH (10:13)
[2020-06-26] MEDS: CARVEDILOL 6.25 MG TABLET (FP) PO SCH ×2 (10:13→22:12)
[2020-06-26] MEDS: APIXABAN 5 MG TABLET PO SCH ×2 (10:13→22:12)
[2020-06-26] MEDS: DIGOXIN 0.125 MG TABLET (FP) PO SCH (10:13)
[2020-06-26] MEDS: COLLAGENASE CLOSTRIDIUM HIST. 30 GRAMS TUBE TP SCH (10:14)
[2020-06-26] MEDS: NYSTATIN POWDER 100,000 UNITS/GM - 15 GM TOPICAL POWDER TP SCH ×2 (10:14→22:11)
[2020-06-26] MEDS: LIDOCAINE 5% TOPICAL PATCH TP SCH ×2 (10:14→10:45)
[2020-06-26] MEDS: BUDESONIDE/FORMETEROL FUMARATE 80/4.5 mcg INHALER IH SCH ×2 (10:14→22:10)
[2020-06-26] MEDS: PANTOPRAZOLE 20 MG TABLET PO SCH (10:14)
[2020-06-26] MEDS: oxyCODONE HCL 5 MG TABLET PO PRN ×2 (11:06→22:12)
[2020-06-26 11:20] LABS: ALBUMIN 2.5 g/dl (3.4-5.0); BILIRUBIN,TOTAL 1.4 mg/dL (0.2-1); BLOOD UREA NITROGEN 37.3 mg/dL (7-18); CALCIUM 9.7 mg/dL (8.5-10.1); CREATININE 1.1 mg/dL (0.55-1.3); POTASSIUM 4.5 mmol/L (3.5-5.1); TOT PROT 7.3 g/dl (6.4-8.2)
[2020-06-26] MEDS: VANCOMYCIN/WATER BAGS 1,250 MG/250 ML BAG IVPB SCH (13:55)
[2020-06-26] MEDS: ATORVASTATIN CA 40 MG TABLET (FP) PO SCH (22:11)
[2020-06-26] MEDS: LIDOCAINE PATCH REMOVAL MC SCH (22:13)
[2020-06-27] MEDS ORDERED: AZTREONAM 1 GM VIAL (RESTRICTED TO ID) ONE ×2 (01:25→16:56)
[2020-06-27] MEDS ORDERED: DEXTROSE 5%-WATER - 50 ML IVPB ONE ×2 (01:26→16:56)
[2020-06-27] MEDS: AZTREONAM 1 GM in DEXTROSE 5%-WATER - 50 ML IVPB SCH ×3 (01:29→17:22)
[2020-06-27] MEDS: GABAPENTIN 300 MG CAPSULE PO SCH ×3 (06:41→21:27)
[2020-06-27] MEDS: INSULIN SLIDING SCALE (NOVOLOG) 1 VIAL SQ SCH ×3 (06:41→17:02)
[2020-06-27] MEDS: oxyCODONE HCL 5 MG TABLET PO PRN ×3 (06:52→23:52)
[2020-06-27 07:43] LABS: BASO % 1.7 % (0-2.0); EOS % 2.2 % (0-4.5); HEMATOCRIT 32.8 % (32.4-45.2); HEMOGLOBIN 9.9 GM/dL (10.7-15.3); LYMPH % 19.1 % (8-40); MCH 24.2 pg (25.7-33.7); MCHC 30.4 g/dl (32.0-36.0); MEAN CELL VOLUME 79.7 fl (80-96); MEAN PLT VOLUME 8.9 fl (7.5-11.1); MONO % 13.6 % (3.8-10.2); NEUT % 63.4 % (42.8-82.8); PLATELET COUNT 271 K/MM3 (134-434); RBC 4.11 M/mm3 (3.60-5.2); RDW 27.1 % (11.6-15.6); WHITE BLOOD COUNT 4.9 K/mm3 (4.0-10.0)
[2020-06-27 07:57] LABS: POTASSIUM 4.6 mmol/L (3.5-5.1)
[2020-06-27 08:04] LABS: CALCIUM 9.5 mg/dL (8.5-10.1)
[2020-06-27 08:05] LABS: ALBUMIN 2.4 g/dl (3.4-5.0); MAGNESIUM 1.5 mg/dL (1.8-2.4)
[2020-06-27 08:09] LABS: BILIRUBIN,TOTAL 1.5 mg/dL (0.2-1)
[2020-06-27] MEDS: DIGOXIN 0.125 MG TABLET (FP) PO SCH (09:21)
[2020-06-27] MEDS: SACUBITRIL/VALSARTAN 24 MG-26 MG TABLET PO SCH ×2 (09:21→21:27)
[2020-06-27] MEDS: CARVEDILOL 6.25 MG TABLET (FP) PO SCH ×2 (09:21→21:27)
[2020-06-27] MEDS: FUROSEMIDE 40 MG TABLET (FP) PO SCH (09:21)
[2020-06-27] MEDS: APIXABAN 5 MG TABLET PO SCH ×2 (09:21→21:27)
[2020-06-27] MEDS: PANTOPRAZOLE 20 MG TABLET PO SCH (09:24)
[2020-06-27] MEDS: NYSTATIN POWDER 100,000 UNITS/GM - 15 GM TOPICAL POWDER TP SCH ×2 (09:24→21:27)
[2020-06-27] MEDS: COLLAGENASE CLOSTRIDIUM HIST. 30 GRAMS TUBE TP SCH (09:24)
[2020-06-27] MEDS: BUDESONIDE/FORMETEROL FUMARATE 80/4.5 mcg INHALER IH SCH ×2 (09:24→21:28)
[2020-06-27 10:27] LABS: ANISOCYTOSIS 2+; MACROCYTOSIS 0; PLATELET ESTIMATE NORMAL
[2020-06-27] MEDS: LIDOCAINE 5% TOPICAL PATCH TP SCH (11:58)
[2020-06-27] MEDS ORDERED: PT OWN MED DRAWER 7, Y5N ONE ×2 (12:55→18:57)
[2020-06-27] MEDS: VANCOMYCIN/WATER BAGS 1,250 MG/250 ML BAG IVPB SCH (14:44)
[2020-06-27] MEDS: LIDOCAINE PATCH REMOVAL MC SCH (21:27)
[2020-06-27] MEDS: ATORVASTATIN CA 40 MG TABLET (FP) PO SCH (21:27)
[2020-06-28] MEDS ORDERED: AZTREONAM 1 GM VIAL (RESTRICTED TO ID) ONE (01:29)
[2020-06-28] MEDS ORDERED: DEXTROSE 5%-WATER - 50 ML IVPB ONE (01:29)
[2020-06-28] MEDS: AZTREONAM 1 GM in DEXTROSE 5%-WATER - 50 ML IVPB SCH ×3 (01:58→18:45)
[2020-06-28] MEDS: GABAPENTIN 300 MG CAPSULE PO SCH ×3 (05:20→21:19)
[2020-06-28] MEDS: INSULIN SLIDING SCALE (NOVOLOG) 1 VIAL SQ SCH ×3 (06:12→17:22)
[2020-06-28] MEDS ORDERED: PT OWN MED DRAWER 7, Y5N ONE ×3 (09:03→17:13)
[2020-06-28] MEDS: DIGOXIN 0.125 MG TABLET (FP) PO SCH (09:10)
[2020-06-28] MEDS: PANTOPRAZOLE 20 MG TABLET PO SCH (09:10)
[2020-06-28] MEDS: SACUBITRIL/VALSARTAN 24 MG-26 MG TABLET PO SCH ×2 (09:10→21:20)
[2020-06-28] MEDS: CARVEDILOL 6.25 MG TABLET (FP) PO SCH ×2 (09:10→21:19)
[2020-06-28] MEDS: FUROSEMIDE 40 MG TABLET (FP) PO SCH (09:10)
[2020-06-28] MEDS: APIXABAN 5 MG TABLET PO SCH ×2 (09:10→21:19)
[2020-06-28] MEDS: NYSTATIN POWDER 100,000 UNITS/GM - 15 GM TOPICAL POWDER TP SCH ×2 (09:11→21:20)
[2020-06-28] MEDS: COLLAGENASE CLOSTRIDIUM HIST. 30 GRAMS TUBE TP SCH (09:11)
[2020-06-28] MEDS: BUDESONIDE/FORMETEROL FUMARATE 80/4.5 mcg INHALER IH SCH ×2 (09:11→21:20)
[2020-06-28] MEDS: LIDOCAINE 5% TOPICAL PATCH TP SCH (09:11)
[2020-06-28] MEDS: oxyCODONE HCL 5 MG TABLET PO PRN ×2 (11:12→18:42)
[2020-06-28 12:17] LABS: BASO % 1.5 % (0-2.0); EOS % 2.6 % (0-4.5); HEMATOCRIT 34.6 % (32.4-45.2); HEMOGLOBIN 10.5 GM/dL (10.7-15.3); LYMPH % 15.8 % (8-40); MCH 24.5 pg (25.7-33.7); MCHC 30.4 g/dl (32.0-36.0); MEAN CELL VOLUME 80.7 fl (80-96); MEAN PLT VOLUME 8.7 fl (7.5-11.1); MONO % 10.7 % (3.8-10.2); NEUT % 69.4 % (42.8-82.8); PLATELET COUNT 268 K/MM3 (134-434); RBC 4.28 M/mm3 (3.60-5.2); RDW 26.3 % (11.6-15.6); WHITE BLOOD COUNT 5.4 K/mm3 (4.0-10.0)
[2020-06-28 12:38] LABS: POTASSIUM 4.4 mmol/L (3.5-5.1)
[2020-06-28 12:40] LABS: ALBUMIN 2.6 g/dl (3.4-5.0); CALCIUM 9.6 mg/dL (8.5-10.1)
[2020-06-28 12:41] LABS: BLOOD UREA NITROGEN 33.4 mg/dL (7-18); MAGNESIUM 1.5 mg/dL (1.8-2.4)
[2020-06-28 12:44] LABS: CREATININE 1.1 mg/dL (0.55-1.3)
[2020-06-28 12:46] LABS: BILIRUBIN,TOTAL 1.4 mg/dL (0.2-1); TOT PROT 7.7 g/dl (6.4-8.2)
[2020-06-28] MEDS: VANCOMYCIN/WATER BAGS 1,250 MG/250 ML BAG IVPB SCH (13:24)
[2020-06-28] MEDS: ATORVASTATIN CA 40 MG TABLET (FP) PO SCH (21:19)
[2020-06-28] MEDS: LIDOCAINE PATCH REMOVAL MC SCH (21:20)
[2020-06-29] MEDS: AZTREONAM 1 GM in DEXTROSE 5%-WATER - 50 ML IVPB SCH ×3 (01:11→18:37)
[2020-06-29] MEDS: GABAPENTIN 300 MG CAPSULE PO SCH ×3 (06:23→21:09)
[2020-06-29] MEDS: INSULIN SLIDING SCALE (NOVOLOG) 1 VIAL SQ SCH ×3 (06:24→16:21)
[2020-06-29] MEDS ORDERED: DEXTROSE 5%-WATER - 50 ML IVPB ONE ×2 (09:39→17:49)
[2020-06-29] MEDS ORDERED: AZTREONAM 1 GM VIAL (RESTRICTED TO ID) ONE ×2 (09:39→17:49)
[2020-06-29] MEDS: LIDOCAINE 5% TOPICAL PATCH TP SCH (09:55)
[2020-06-29] MEDS: FUROSEMIDE 40 MG TABLET (FP) PO SCH (09:56)
[2020-06-29] MEDS: PANTOPRAZOLE 20 MG TABLET PO SCH (09:56)
[2020-06-29] MEDS: SACUBITRIL/VALSARTAN 24 MG-26 MG TABLET PO SCH ×2 (09:56→21:09)
[2020-06-29] MEDS: CARVEDILOL 6.25 MG TABLET (FP) PO SCH ×2 (09:56→21:09)
[2020-06-29] MEDS: APIXABAN 5 MG TABLET PO SCH ×2 (09:56→21:09)
[2020-06-29] MEDS: COLLAGENASE CLOSTRIDIUM HIST. 30 GRAMS TUBE TP SCH (09:57)
[2020-06-29] MEDS: BUDESONIDE/FORMETEROL FUMARATE 80/4.5 mcg INHALER IH SCH ×2 (09:57→21:09)
[2020-06-29] MEDS: NYSTATIN POWDER 100,000 UNITS/GM - 15 GM TOPICAL POWDER TP SCH ×2 (09:57→21:09)
[2020-06-29] MEDS: oxyCODONE HCL 5 MG TABLET PO PRN ×2 (09:57→18:50)
[2020-06-29 09:58] LABS: HEMATOCRIT 32.7 % (32.4-45.2); LYMPH % 22.5 % (8-40); MCH 24.4 pg (25.7-33.7); MCHC 30.6 g/dl (32.0-36.0); MEAN CELL VOLUME 79.6 fl (80-96); MEAN PLT VOLUME 8.7 fl (7.5-11.1); MONO % 15.9 % (3.8-10.2); NEUT % 56.6 % (42.8-82.8); PLATELET COUNT 271 K/MM3 (134-434); RBC 4.11 M/mm3 (3.60-5.2); RDW 26.6 % (11.6-15.6); WHITE BLOOD COUNT 4.7 K/mm3 (4.0-10.0)
[2020-06-29 10:21] LABS: POTASSIUM 4.4 mmol/L (3.5-5.1)
[2020-06-29 10:27] LABS: CALCIUM 9.5 mg/dL (8.5-10.1)
[2020-06-29 10:28] LABS: ALBUMIN 2.4 g/dl (3.4-5.0); BLOOD UREA NITROGEN 33.6 mg/dL (7-18); MAGNESIUM 1.6 mg/dL (1.8-2.4)
[2020-06-29 10:31] LABS: CREATININE 1.2 mg/dL (0.55-1.3)
[2020-06-29 10:32] LABS: BILIRUBIN,TOTAL 1.1 mg/dL (0.2-1); TOT PROT 7.2 g/dl (6.4-8.2)
[2020-06-29] MEDS ORDERED: PT OWN MED DRAWER 7, Y5N ONE (13:26)
[2020-06-29] MEDS: VANCOMYCIN/WATER BAGS 1,250 MG/250 ML BAG IVPB SCH (13:59)
[2020-06-29] MEDS ORDERED: MAGNESIUM OXIDE 400 MG TABLET (FP) PO ONE (15:00)
[2020-06-29] MEDS: ATORVASTATIN CA 40 MG TABLET (FP) PO SCH (21:09)
[2020-06-29] MEDS: LIDOCAINE PATCH REMOVAL MC SCH (21:09)
[2020-06-29] MEDS ORDERED: MECLIZINE HCL 25 MG TABLET (FP) PO ONE (22:04)
[2020-06-30] MEDS ORDERED: AZTREONAM 1 GM VIAL (RESTRICTED TO ID) ONE ×3 (00:41→16:35)
[2020-06-30] MEDS ORDERED: DEXTROSE 5%-WATER - 50 ML IVPB ONE ×3 (00:41→16:35)
[2020-06-30] MEDS: AZTREONAM 1 GM in DEXTROSE 5%-WATER - 50 ML IVPB SCH ×3 (01:07→17:22)
[2020-06-30] MEDS: GABAPENTIN 300 MG CAPSULE PO SCH ×3 (05:43→21:36)
[2020-06-30] MEDS: oxyCODONE HCL 5 MG TABLET PO PRN ×3 (05:43→21:36)
[2020-06-30] MEDS: INSULIN SLIDING SCALE (NOVOLOG) 1 VIAL SQ SCH ×3 (06:05→16:47)
[2020-06-30 07:46] LABS: BASO % 2.3 % (0-2.0); EOS % 3.1 % (0-4.5); HEMATOCRIT 32.7 % (32.4-45.2); HEMOGLOBIN 10.1 GM/dL (10.7-15.3); LYMPH % 25.6 % (8-40); MCH 24.8 pg (25.7-33.7); MEAN CELL VOLUME 80.1 fl (80-96); MEAN PLT VOLUME 9.1 fl (7.5-11.1); MONO % 11.7 % (3.8-10.2); NEUT % 57.3 % (42.8-82.8); PLATELET COUNT 275 K/MM3 (134-434); RBC 4.09 M/mm3 (3.60-5.2); RDW 26.2 % (11.6-15.6); WHITE BLOOD COUNT 4.3 K/mm3 (4.0-10.0)
[2020-06-30 07:56] LABS: POTASSIUM 4.5 mmol/L (3.5-5.1)
[2020-06-30 07:58] LABS: CALCIUM 9.3 mg/dL (8.5-10.1)
[2020-06-30 07:59] LABS: ALBUMIN 2.6 g/dl (3.4-5.0); BLOOD UREA NITROGEN 36.1 mg/dL (7-18); MAGNESIUM 1.6 mg/dL (1.8-2.4)
[2020-06-30] MEDS ORDERED: MAGNESIUM OXIDE 400 MG TABLET (FP) PO ONE (08:00)
[2020-06-30 08:02] LABS: CREATININE 1.2 mg/dL (0.55-1.3)
[2020-06-30 08:03] LABS: BILIRUBIN,TOTAL 1.2 mg/dL (0.2-1)
[2020-06-30 08:04] LABS: TOT PROT 7.5 g/dl (6.4-8.2)
[2020-06-30] MEDS: BUDESONIDE/FORMETEROL FUMARATE 80/4.5 mcg INHALER IH SCH ×2 (09:23→21:38)
[2020-06-30] MEDS: LIDOCAINE 5% TOPICAL PATCH TP SCH (09:58)
[2020-06-30] MEDS: FUROSEMIDE 40 MG TABLET (FP) PO SCH (09:59)
[2020-06-30] MEDS: SACUBITRIL/VALSARTAN 24 MG-26 MG TABLET PO SCH ×2 (10:01→21:36)
[2020-06-30] MEDS: APIXABAN 5 MG TABLET PO SCH ×2 (10:01→21:36)
[2020-06-30] MEDS: PANTOPRAZOLE 20 MG TABLET PO SCH (10:01)
[2020-06-30] MEDS: CARVEDILOL 6.25 MG TABLET (FP) PO SCH ×2 (10:02→21:36)
[2020-06-30 11:17] LABS: ANISOCYTOSIS 1+; MACROCYTOSIS 1+; PLATELET ESTIMATE NORMAL
[2020-06-30] MEDS: COLLAGENASE CLOSTRIDIUM HIST. 30 GRAMS TUBE TP SCH (11:22)
[2020-06-30] MEDS: NYSTATIN POWDER 100,000 UNITS/GM - 15 GM TOPICAL POWDER TP SCH ×2 (11:22→21:38)
[2020-06-30] MEDS: ACETAMINOPHEN 325 MG TABLET (FP) PO PRN (11:49)
[2020-06-30] MEDS: VANCOMYCIN/WATER BAGS 1,250 MG/250 ML BAG IVPB SCH (13:05)
[2020-06-30] MEDS ORDERED: DIGOXIN 0.125 MG TABLET (FP) PO SCH (16:30)
[2020-06-30] MEDS: ATORVASTATIN CA 40 MG TABLET (FP) PO SCH (21:36)
[2020-06-30] MEDS: LIDOCAINE PATCH REMOVAL MC SCH (21:38)
[2020-07-01] MEDS ORDERED: AZTREONAM 1 GM VIAL (RESTRICTED TO ID) ONE (01:21)
[2020-07-01] MEDS ORDERED: DEXTROSE 5%-WATER - 50 ML IVPB ONE (01:22)
[2020-07-01] MEDS: AZTREONAM 1 GM in DEXTROSE 5%-WATER - 50 ML IVPB SCH ×2 (01:51→10:11)
[2020-07-01] MEDS: GABAPENTIN 300 MG CAPSULE PO SCH ×2 (05:50→15:01)
[2020-07-01] MEDS: INSULIN SLIDING SCALE (NOVOLOG) 1 VIAL SQ SCH ×2 (06:20→12:10)
[2020-07-01] MEDS ORDERED: PT OWN MED DRAWER 7, Y5N ONE ×2 (09:28→15:00)
[2020-07-01] MEDS: oxyCODONE HCL 5 MG TABLET PO PRN ×2 (09:34→15:09)
[2020-07-01] MEDS: FUROSEMIDE 40 MG TABLET (FP) PO SCH (09:34)
[2020-07-01] MEDS: NYSTATIN POWDER 100,000 UNITS/GM - 15 GM TOPICAL POWDER TP SCH (09:35)
[2020-07-01] MEDS: CARVEDILOL 6.25 MG TABLET (FP) PO SCH (09:35)
[2020-07-01] MEDS: APIXABAN 5 MG TABLET PO SCH (09:35)
[2020-07-01] MEDS: PANTOPRAZOLE 20 MG TABLET PO SCH (09:35)
[2020-07-01] MEDS: LIDOCAINE 5% TOPICAL PATCH TP SCH (09:35)
[2020-07-01] MEDS: SACUBITRIL/VALSARTAN 24 MG-26 MG TABLET PO SCH (09:35)
[2020-07-01] MEDS: COLLAGENASE CLOSTRIDIUM HIST. 30 GRAMS TUBE TP SCH (09:35)
[2020-07-01] MEDS: BUDESONIDE/FORMETEROL FUMARATE 80/4.5 mcg INHALER IH SCH (09:36)
[2020-07-01 14:42] VITALS: BP 115/63; PULSE 70; TEMP 98.3
[2020-07-01] MEDS: VANCOMYCIN/WATER BAGS 1,250 MG/250 ML BAG IVPB SCH (15:01)
[2020-07-01] MEDS ORDERED: DOXYCYCLINE HYCLATE 100 MG CAPSULE PO SCH (18:00)
== END 2020-07-01 17:30 | disposition home health service (06) | DRG 720 ==
LOC: JER 07:42 → JERBED 11:55 → J4S 06-16 22:41
PROVIDERS: ADMIT Internal Medicine; ATTEND Nurse Practitioner Family
DX: A41.9 Sepsis, unspecified organism (principal); E87.6 Hypokalemia; I25.10 Atherosclerotic heart disease of native coronary artery without angina pectoris; E87.5 Hyperkalemia; I48.91 Unspecified atrial fibrillation; J44.9 Chronic obstructive pulmonary disease, unspecified; I87.8 Other specified disorders of veins; F14.90 Cocaine use, unspecified, uncomplicated; S91.104A Unspecified open wound of right lesser toe(s) without damage to nail, initial encounter; Z91.19 Patient's noncompliance with other medical treatment and regimen; A04.72 Enterocolitis due to Clostridium difficile, not specified as recurrent; E11.649 Type 2 diabetes mellitus with hypoglycemia without coma; R18.8 Other ascites; I50.23 Acute on chronic systolic (congestive) heart failure; E83.42 Hypomagnesemia; I42.8 Other cardiomyopathies; L03.311 Cellulitis of abdominal wall; D72.829 Elevated white blood cell count, unspecified; E11.65 Type 2 diabetes mellitus with hyperglycemia; Z68.39 Body mass index [BMI] 39.0-39.9, adult; E66.01 Morbid (severe) obesity due to excess calories; T14.90XA Injury, unspecified, initial encounter; X58.XXXA Exposure to other specified factors, initial encounter; Y93.9 Activity, unspecified; Y92.89 Other specified places as the place of occurrence of the external cause; Y99.9 Unspecified external cause status
CPT/HCPCS: 36415; 71045-TC-FY; 73630-TC-LT; 73630-TC-RT-FY; 74177-TC; 76705-TC; 78315-TC; 80048; 80053; 80162; 82550; 82962; 83036; 83605; 83690; 83735; 83880; 84100; 84484; 85025; 85027; 86140; 86704; 86706; 86707; 86708; 86709; 87040; 87070; 87077; 87177; 87186; 87205; 87209; 87324; 87340; 87449; 93005; 93010; 93970-TC; 97116-GP; 97161-GP; 99285-25; A9503; C9803; G0480; J0131; U0003

== ENCOUNTER 2020-07-04 19:45 | Inpatient (IN) | payer OTHER ==
[2020-07-04] MEDS ORDERED: ACETAMINOPHEN 1000 MG/100 ML VIAL (NON FORMULARY) IVPB ONE (21:22)
[2020-07-04 23:32] LABS: BASO % 2.8 % (0-2.0); EOS % 2.7 % (0-4.5); HEMOGLOBIN 10.4 GM/dL (10.7-15.3); LYMPH % 25.8 % (8-40); MCH 24.3 pg (25.7-33.7); MCHC 30.6 g/dl (32.0-36.0); MEAN CELL VOLUME 79.4 fl (80-96); MEAN PLT VOLUME 9.1 fl (7.5-11.1); MONO % 12.9 % (3.8-10.2); NEUT % 55.8 % (42.8-82.8); PLATELET COUNT 300 K/MM3 (134-434); RBC 4.28 M/mm3 (3.60-5.2); RDW 26.3 % (11.6-15.6); WHITE BLOOD COUNT 4.2 K/mm3 (4.0-10.0)
[2020-07-04 23:54] LABS: CHLORIDE 104 mmol/L (98-107); SODIUM 139 mmol/L (136-145)
[2020-07-04 23:58] LABS: ALBUMIN 2.7 g/dl (3.4-5.0); CALCIUM 9.2 mg/dL (8.5-10.1)
[2020-07-04 23:59] LABS: ANION GAP 9 MMOL/L (8-16); CO2 26 mmol/L (21-32); GLUCOSE,RANDOM 119 mg/dL (74-106); MAGNESIUM 1.6 mg/dL (1.8-2.4)
[2020-07-05 00:02] LABS: CREATININE 1.3 mg/dL (0.55-1.3); SGOT/AST 44 U/L (15-37); SGPT/ALT 30 U/L (13-61)
[2020-07-05 00:03] LABS: BILIRUBIN,TOTAL 1.6 mg/dL (0.2-1); TOT PROT 7.7 g/dl (6.4-8.2)
[2020-07-05 00:04] LABS: ALK PHOS 429 U/L (45-117)
[2020-07-05 00:07] LABS: N-TERMINAL BNP 2493.9 pg/ml (5-125)
[2020-07-05 01:26] LABS: ANISOCYTOSIS 1+; HELMET CELLS 1+; MACROCYTOSIS 0; PLATELET ESTIMATE NORMAL; TARGET CELLS 1+
[2020-07-05] MEDS ORDERED: ALBUTEROL SO4 HFA INHALER IH SCH (04:00)
[2020-07-05] MEDS ORDERED: DIGOXIN 0.125 MG TABLET (FP) PO SCH (04:00)
[2020-07-05] MEDS ORDERED: ACETAMINOPHEN 1000 MG/100 ML VIAL (NON FORMULARY) IVPB ONE (04:32)
[2020-07-05] MEDS ORDERED: ACETAMINOPHEN INJECTION 100 ML IVPB ONE (04:36)
[2020-07-05] MEDS ORDERED: MAGNESIUM SULF 50% (8.12 MEQ/2 ML-1 GM VIAL) IVPB ONE (05:00)
[2020-07-05] MEDS ORDERED: MAGNESIUM SULFATE IN WATER 2 GM/50 ML IVPB IVPB ONE (05:16)
[2020-07-05] MEDS ORDERED: GABAPENTIN 300 MG CAPSULE PO SCH (06:00)
[2020-07-05] MEDS ORDERED: ACETAMINOPHEN 325 MG TABLET (FP) PO ONE ×2 (06:29→06:45)
[2020-07-05] MEDS: ALBUTEROL SO4 HFA INHALER IH SCH ×4 (06:53→21:52)
[2020-07-05] MEDS: DIGOXIN 0.125 MG TABLET (FP) PO SCH (06:56)
[2020-07-05] MEDS: GABAPENTIN 300 MG CAPSULE PO SCH ×3 (06:56→21:52)
[2020-07-05] MEDS ORDERED: INSULIN (LEVEMIR) 100 UNITS/ML UNITS SQ SCH (07:00)
[2020-07-05] MEDS: INSULIN SLIDING SCALE (NOVOLOG) 1 VIAL SQ SCH ×4 (07:03→21:59)
[2020-07-05 09:08] LABS: HEMATOCRIT 34.4 % (32.4-45.2); HEMOGLOBIN 10.5 GM/dL (10.7-15.3); MCH 24.5 pg (25.7-33.7); MCHC 30.4 g/dl (32.0-36.0); MEAN CELL VOLUME 80.7 fl (80-96); MEAN PLT VOLUME 9.1 fl (7.5-11.1); PLATELET COUNT 254 K/MM3 (134-434); RBC 4.27 M/mm3 (3.60-5.2); RDW 25.9 % (11.6-15.6)
[2020-07-05 09:34] LABS: POTASSIUM 4.1 mmol/L (3.5-5.1)
[2020-07-05 09:38] LABS: BLOOD UREA NITROGEN 25.8 mg/dL (7-18); CALCIUM 9.2 mg/dL (8.5-10.1)
[2020-07-05 09:39] LABS: MAGNESIUM 1.6 mg/dL (1.8-2.4)
[2020-07-05 09:41] LABS: CREATININE 1.4 mg/dL (0.55-1.3)
[2020-07-05 09:42] LABS: PHOSPHOROUS 3.5 mg/dL (2.5-4.9)
[2020-07-05] MEDS ORDERED: HEPARIN NA (PORCINE) 5,000 UNITS/ML 1ML VIAL SQ SCH (10:00)
[2020-07-05] MEDS ORDERED: FERROUS SO4 325 MG TABLET (FP) PO SCH (10:00)
[2020-07-05] MEDS: SACUBITRIL/VALSARTAN 24 MG-26 MG TABLET PO SCH ×2 (10:37→21:59)
[2020-07-05] MEDS: DOXYCYCLINE HYCLATE 100 MG CAPSULE PO SCH ×2 (10:38→18:11)
[2020-07-05] MEDS: FUROSEMIDE 40 MG TABLET (FP) PO SCH (10:38)
[2020-07-05] MEDS: CARVEDILOL 6.25 MG TABLET (FP) PO SCH ×2 (10:38→21:52)
[2020-07-05] MEDS: APIXABAN 5 MG TABLET PO SCH ×2 (10:38→21:52)
[2020-07-05] MEDS: PANTOPRAZOLE 20 MG TABLET PO SCH (10:38)
[2020-07-05] MEDS: FOLIC ACID 1 MG TABLET (FP) PO SCH (10:38)
[2020-07-05] MEDS: INSULIN (LEVEMIR) 100 UNITS/ML UNITS SQ SCH (10:42)
[2020-07-05] MEDS: oxyCODONE HCL 5 MG TABLET PO PRN ×4 (10:43→23:37)
[2020-07-05] MEDS: MAGNESIUM OXIDE 400 MG TABLET (FP) PO SCH ×2 (11:59→21:52)
[2020-07-05] MEDS ORDERED: DEXTROSE 5%-WATER - 50 ML IVPB ONE (13:54)
[2020-07-05] MEDS ORDERED: AZTREONAM 1 GM VIAL (RESTRICTED TO ID) ONE (13:54)
[2020-07-05] MEDS: AZTREONAM 1 GM in DEXTROSE 5%-WATER - 50 ML IVPB SCH ×2 (17:58→18:11)
[2020-07-05] MEDS: COLLAGENASE CLOSTRIDIUM HIST. 30 GRAMS TUBE TP SCH (18:10)
[2020-07-05] MEDS ORDERED: PT OWN MED DRAWER 7, Y5N ONE (21:48)
[2020-07-06] MEDS: ALBUTEROL SO4 HFA INHALER IH SCH ×6 (00:23→21:13)
[2020-07-06] MEDS ORDERED: DEXTROSE 5%-WATER - 50 ML IVPB ONE ×3 (01:23→17:43)
[2020-07-06] MEDS ORDERED: AZTREONAM 1 GM VIAL (RESTRICTED TO ID) ONE ×3 (01:23→17:43)
[2020-07-06] MEDS: AZTREONAM 1 GM in DEXTROSE 5%-WATER - 50 ML IVPB SCH ×3 (03:01→17:51)
[2020-07-06] MEDS: oxyCODONE HCL 5 MG TABLET PO PRN ×4 (04:50→23:52)
[2020-07-06] MEDS: INSULIN SLIDING SCALE (NOVOLOG) 1 VIAL SQ SCH ×4 (06:24→21:14)
[2020-07-06] MEDS: GABAPENTIN 300 MG CAPSULE PO SCH ×3 (06:24→21:13)
[2020-07-06] MEDS ORDERED: LORazepam 1 MG TABLET PO SCH (08:02)
[2020-07-06 08:03] LABS: EOS % 3.8 % (0-4.5); HEMATOCRIT 31.1 % (32.4-45.2); HEMOGLOBIN 9.8 GM/dL (10.7-15.3); LYMPH % 22.9 % (8-40); MCH 24.9 pg (25.7-33.7); MCHC 31.6 g/dl (32.0-36.0); MEAN CELL VOLUME 78.8 fl (80-96); MONO % 12.7 % (3.8-10.2); NEUT % 58.6 % (42.8-82.8); PLATELET COUNT 242 K/MM3 (134-434); RBC 3.95 M/mm3 (3.60-5.2); RDW 25.7 % (11.6-15.6); WHITE BLOOD COUNT 4.5 K/mm3 (4.0-10.0)
[2020-07-06 08:06] LABS: POTASSIUM 3.7 mmol/L (3.5-5.1)
[2020-07-06 08:13] LABS: CALCIUM 9.1 mg/dL (8.5-10.1)
[2020-07-06 08:14] LABS: ALBUMIN 2.7 g/dl (3.4-5.0); BLOOD UREA NITROGEN 22.3 mg/dL (7-18); MAGNESIUM 1.5 mg/dL (1.8-2.4)
[2020-07-06 08:17] LABS: BILIRUBIN,TOTAL 1.1 mg/dL (0.2-1); CREATININE 1.2 mg/dL (0.55-1.3); TOT PROT 7.5 g/dl (6.4-8.2)
[2020-07-06] MEDS: INSULIN (LEVEMIR) 100 UNITS/ML UNITS SQ SCH (10:37)
[2020-07-06] MEDS: MAGNESIUM OXIDE 400 MG TABLET (FP) PO SCH ×2 (10:38→21:13)
[2020-07-06] MEDS: CARVEDILOL 6.25 MG TABLET (FP) PO SCH ×2 (10:38→21:13)
[2020-07-06] MEDS: FOLIC ACID 1 MG TABLET (FP) PO SCH (10:39)
[2020-07-06] MEDS: APIXABAN 5 MG TABLET PO SCH ×2 (10:39→21:13)
[2020-07-06] MEDS: DOXYCYCLINE HYCLATE 100 MG CAPSULE PO SCH ×2 (10:39→17:52)
[2020-07-06] MEDS: FUROSEMIDE 40 MG TABLET (FP) PO SCH (10:39)
[2020-07-06] MEDS: SACUBITRIL/VALSARTAN 24 MG-26 MG TABLET PO SCH ×2 (10:39→21:13)
[2020-07-06] MEDS: PANTOPRAZOLE 20 MG TABLET PO SCH (10:40)
[2020-07-06] MEDS ORDERED: INSULIN (NOVOLOG) ASPART 100 UNITS/ML 10ML VIAL ONE ×2 (11:09→20:20)
[2020-07-06] MEDS: COLLAGENASE CLOSTRIDIUM HIST. 30 GRAMS TUBE TP SCH (15:00)
[2020-07-06] MEDS: PREGABALIN 25 MG CAPSULE PO SCH (18:11)
[2020-07-06] MEDS: PATIENT'S OWN MEDICATION (NON-FORMULARY) (Ipratropium/Albuterol Sulfate 1 PUFF Inhaler) IH SCH (18:11)
[2020-07-06] MEDS: LORazepam 0.5 MG TABLET PO PRN (18:19)
[2020-07-06] MEDS ORDERED: PT OWN MED DRAWER 7, Y5N ONE (20:18)
[2020-07-06] MEDS ORDERED: ACETAMINOPHEN 325 MG TABLET (FP) ONE (21:52)
[2020-07-07] MEDS ORDERED: DEXTROSE 5%-WATER - 50 ML IVPB ONE ×3 (01:10→15:50)
[2020-07-07] MEDS ORDERED: AZTREONAM 1 GM VIAL (RESTRICTED TO ID) ONE ×3 (01:10→15:50)
[2020-07-07] MEDS: AZTREONAM 1 GM in DEXTROSE 5%-WATER - 50 ML IVPB SCH ×3 (01:14→17:20)
[2020-07-07] MEDS: ALBUTEROL SO4 HFA INHALER IH SCH ×7 (01:14→23:07)
[2020-07-07] MEDS ORDERED: PT OWN MED DRAWER 7, Y5N ONE ×2 (05:54→21:36)
[2020-07-07] MEDS: DIGOXIN 0.125 MG TABLET (FP) PO SCH (06:02)
[2020-07-07] MEDS: GABAPENTIN 300 MG CAPSULE PO SCH ×3 (06:02→21:44)
[2020-07-07] MEDS: INSULIN SLIDING SCALE (NOVOLOG) 1 VIAL SQ SCH ×4 (06:03→21:44)
[2020-07-07] MEDS ORDERED: INSULIN (NOVOLOG) ASPART 100 UNITS/ML 10ML VIAL ONE (06:06)
[2020-07-07] MEDS ORDERED: INSULIN (LEVEMIR) 100 UNITS/ML UNITS SQ ONE (06:07)
[2020-07-07] MEDS: oxyCODONE HCL 5 MG TABLET PO PRN ×3 (06:23→15:57)
[2020-07-07] MEDS: CARVEDILOL 6.25 MG TABLET (FP) PO SCH ×2 (09:23→21:44)
[2020-07-07] MEDS: PANTOPRAZOLE 20 MG TABLET PO SCH (09:23)
[2020-07-07] MEDS: FUROSEMIDE 40 MG TABLET (FP) PO SCH (09:23)
[2020-07-07] MEDS: DOXYCYCLINE HYCLATE 100 MG CAPSULE PO SCH ×2 (09:23→17:53)
[2020-07-07] MEDS: MAGNESIUM OXIDE 400 MG TABLET (FP) PO SCH ×2 (09:23→21:43)
[2020-07-07] MEDS: FOLIC ACID 1 MG TABLET (FP) PO SCH (09:23)
[2020-07-07] MEDS: APIXABAN 5 MG TABLET PO SCH ×2 (09:23→21:43)
[2020-07-07] MEDS: SACUBITRIL/VALSARTAN 24 MG-26 MG TABLET PO SCH ×2 (09:24→21:43)
[2020-07-07] MEDS: INSULIN (LEVEMIR) 100 UNITS/ML UNITS SQ SCH (09:24)
[2020-07-07] MEDS: COLLAGENASE CLOSTRIDIUM HIST. 30 GRAMS TUBE TP SCH (09:26)
[2020-07-07] MEDS ORDERED: MAG HYDROX/AL HYDROX/SIMETH 30 ML UNIT-DOSE CUP PO ONE (11:17)
[2020-07-07] MEDS: LORazepam 0.5 MG TABLET PO PRN (11:19)
[2020-07-07] MEDS: BACITRACIN 15 GM TUBE TOPICAL OINTMENT TP SCH (14:22)
[2020-07-07] MEDS ORDERED: diazePAM 2 MG TABLET PO ONE (17:08)
[2020-07-07] MEDS: SIMETHICONE 80 MG TAB.CHEW (FP) PO PRN (21:43)
[2020-07-08] MEDS ORDERED: AZTREONAM 1 GM VIAL (RESTRICTED TO ID) ONE ×2 (01:09→09:35)
[2020-07-08] MEDS ORDERED: DEXTROSE 5%-WATER - 50 ML IVPB ONE ×2 (01:09→09:36)
[2020-07-08] MEDS: AZTREONAM 1 GM in DEXTROSE 5%-WATER - 50 ML IVPB SCH ×3 (01:13→16:59)
[2020-07-08] MEDS: ALBUTEROL SO4 HFA INHALER IH SCH ×6 (03:35→22:03)
[2020-07-08] MEDS ORDERED: PT OWN MED DRAWER 7, Y5N ONE (06:04)
[2020-07-08] MEDS: GABAPENTIN 300 MG CAPSULE PO SCH ×3 (06:35→21:24)
[2020-07-08] MEDS: INSULIN SLIDING SCALE (NOVOLOG) 1 VIAL SQ SCH ×4 (06:35→21:23)
[2020-07-08] MEDS: SIMETHICONE 80 MG TAB.CHEW (FP) PO PRN (06:35)
[2020-07-08 07:28] LABS: BASO % 2.6 % (0-2.0); EOS % 5.8 % (0-4.5); HEMATOCRIT 32.1 % (32.4-45.2); LYMPH % 22.8 % (8-40); MCH 24.7 pg (25.7-33.7); MCHC 31.2 g/dl (32.0-36.0); MEAN CELL VOLUME 79.3 fl (80-96); MONO % 13.4 % (3.8-10.2); NEUT % 55.4 % (42.8-82.8); PLATELET COUNT 227 K/MM3 (134-434); RBC 4.05 M/mm3 (3.60-5.2); RDW 26.3 % (11.6-15.6)
[2020-07-08 08:03] LABS: POTASSIUM 3.7 mmol/L (3.5-5.1)
[2020-07-08 08:06] LABS: ALBUMIN 2.5 g/dl (3.4-5.0); BLOOD UREA NITROGEN 18.3 mg/dL (7-18); CALCIUM 8.9 mg/dL (8.5-10.1); MAGNESIUM 1.4 mg/dL (1.8-2.4)
[2020-07-08 08:11] LABS: BILIRUBIN,TOTAL 1.2 mg/dL (0.2-1); TOT PROT 7.1 g/dl (6.4-8.2)
[2020-07-08] MEDS ORDERED: POTASSIUM CHLORIDE TABS 20 MEQ TABLET.ER (FP) PO ONE (09:15)
[2020-07-08] MEDS: INSULIN (LEVEMIR) 100 UNITS/ML UNITS SQ SCH (09:31)
[2020-07-08] MEDS: DOXYCYCLINE HYCLATE 100 MG CAPSULE PO SCH ×2 (09:33→16:59)
[2020-07-08] MEDS: FUROSEMIDE 40 MG TABLET (FP) PO SCH (09:33)
[2020-07-08] MEDS: CARVEDILOL 6.25 MG TABLET (FP) PO SCH ×2 (09:33→21:24)
[2020-07-08] MEDS: MAGNESIUM OXIDE 400 MG TABLET (FP) PO SCH ×4 (09:34→21:24)
[2020-07-08] MEDS: PANTOPRAZOLE 20 MG TABLET PO SCH (09:34)
[2020-07-08] MEDS: APIXABAN 5 MG TABLET PO SCH ×2 (09:34→21:24)
[2020-07-08] MEDS: FOLIC ACID 1 MG TABLET (FP) PO SCH (09:34)
[2020-07-08] MEDS: SACUBITRIL/VALSARTAN 24 MG-26 MG TABLET PO SCH ×2 (10:35→21:24)
[2020-07-08] MEDS: COLLAGENASE CLOSTRIDIUM HIST. 30 GRAMS TUBE TP SCH (10:36)
[2020-07-08] MEDS: BACITRACIN 15 GM TUBE TOPICAL OINTMENT TP SCH (10:36)
[2020-07-08] MEDS ORDERED: MAG HYDROX/AL HYDROX/SIMETH 30 ML UNIT-DOSE CUP PO PRN (12:05)
[2020-07-08] MEDS: oxyCODONE HCL 5 MG TABLET PO PRN ×2 (12:32→21:25)
[2020-07-08 13:05] LABS: ANISOCYTOSIS 1+; MACROCYTOSIS 0; OVALOCYTE 1+; PLATELET ESTIMATE NORMAL
[2020-07-08 13:51] VITALS: BMI 39.5
[2020-07-08] MEDS: LORazepam 0.5 MG TABLET PO PRN ×2 (17:43→21:24)
[2020-07-09] MEDS ORDERED: AZTREONAM 1 GM VIAL (RESTRICTED TO ID) ONE ×3 (01:16→16:45)
[2020-07-09] MEDS ORDERED: DEXTROSE 5%-WATER - 50 ML IVPB ONE ×3 (01:16→16:45)
[2020-07-09] MEDS: AZTREONAM 1 GM in DEXTROSE 5%-WATER - 50 ML IVPB SCH ×3 (01:45→18:24)
[2020-07-09] MEDS: ALBUTEROL SO4 HFA INHALER IH SCH ×6 (05:03→22:11)
[2020-07-09] MEDS: GABAPENTIN 300 MG CAPSULE PO SCH ×3 (06:28→22:09)
[2020-07-09] MEDS: LORazepam 0.5 MG TABLET PO PRN ×2 (06:28→22:10)
[2020-07-09] MEDS: DIGOXIN 0.125 MG TABLET (FP) PO SCH (06:28)
[2020-07-09] MEDS: INSULIN SLIDING SCALE (NOVOLOG) 1 VIAL SQ SCH ×4 (06:29→22:11)
[2020-07-09] MEDS ORDERED: LORazepam 1 MG TABLET PO ONE (08:21)
[2020-07-09] MEDS: BACITRACIN 15 GM TUBE TOPICAL OINTMENT TP SCH (10:11)
[2020-07-09] MEDS: COLLAGENASE CLOSTRIDIUM HIST. 30 GRAMS TUBE TP SCH (10:11)
[2020-07-09 12:23] LABS: EOS % 5.5 % (0-4.5); HEMATOCRIT 30.4 % (32.4-45.2); HEMOGLOBIN 9.4 GM/dL (10.7-15.3); LYMPH % 16.3 % (8-40); MCH 24.8 pg (25.7-33.7); MCHC 30.9 g/dl (32.0-36.0); MEAN CELL VOLUME 80.2 fl (80-96); MEAN PLT VOLUME 9.6 fl (7.5-11.1); MONO % 18.1 % (3.8-10.2); NEUT % 58.1 % (42.8-82.8); PLATELET COUNT 189 K/MM3 (134-434); RBC 3.79 M/mm3 (3.60-5.2); RDW 25.9 % (11.6-15.6); WHITE BLOOD COUNT 4.4 K/mm3 (4.0-10.0)
[2020-07-09 12:56] LABS: POTASSIUM 4.1 mmol/L (3.5-5.1)
[2020-07-09 13:03] LABS: CALCIUM 8.7 mg/dL (8.5-10.1)
[2020-07-09 13:04] LABS: ALBUMIN 2.4 g/dl (3.4-5.0); BLOOD UREA NITROGEN 20.7 mg/dL (7-18); MAGNESIUM 1.7 mg/dL (1.8-2.4)
[2020-07-09 13:08] LABS: BILIRUBIN,TOTAL 1.2 mg/dL (0.2-1)
[2020-07-09 13:09] LABS: TOT PROT 6.8 g/dl (6.4-8.2)
[2020-07-09] MEDS: FUROSEMIDE 40 MG TABLET (FP) PO SCH (13:37)
[2020-07-09] MEDS: PANTOPRAZOLE 20 MG TABLET PO SCH (13:37)
[2020-07-09] MEDS: CARVEDILOL 6.25 MG TABLET (FP) PO SCH ×2 (13:37→22:09)
[2020-07-09] MEDS: FOLIC ACID 1 MG TABLET (FP) PO SCH (13:37)
[2020-07-09] MEDS: DOXYCYCLINE HYCLATE 100 MG CAPSULE PO SCH ×2 (13:37→17:09)
[2020-07-09] MEDS: APIXABAN 5 MG TABLET PO SCH ×2 (13:37→22:10)
[2020-07-09] MEDS: MAGNESIUM OXIDE 400 MG TABLET (FP) PO SCH ×2 (13:38→22:10)
[2020-07-09] MEDS: INSULIN (LEVEMIR) 100 UNITS/ML UNITS SQ SCH (13:38)
[2020-07-09] MEDS: SACUBITRIL/VALSARTAN 24 MG-26 MG TABLET PO SCH ×2 (13:41→22:11)
[2020-07-09 15:05] LABS: ANISOCYTOSIS 1+; MACROCYTOSIS 0; OVALOCYTE 1+; PLATELET ESTIMATE NORMAL; TARGET CELLS 1+
[2020-07-09] MEDS: oxyCODONE HCL 5 MG TABLET PO PRN (22:10)
[2020-07-09 23:05] VITALS: TEMP 98
[2020-07-10] MEDS: AZTREONAM 1 GM in DEXTROSE 5%-WATER - 50 ML IVPB SCH ×2 (03:38→10:04)
[2020-07-10] MEDS: ALBUTEROL SO4 HFA INHALER IH SCH ×3 (03:39→11:15)
[2020-07-10] MEDS: INSULIN SLIDING SCALE (NOVOLOG) 1 VIAL SQ SCH ×2 (06:36→11:14)
[2020-07-10] MEDS: GABAPENTIN 300 MG CAPSULE PO SCH (06:36)
[2020-07-10] MEDS ORDERED: AZTREONAM 1 GM VIAL (RESTRICTED TO ID) ONE (08:31)
[2020-07-10] MEDS ORDERED: DEXTROSE 5%-WATER - 50 ML IVPB ONE (08:31)
[2020-07-10 08:49] VITALS: BP 144/86; PULSE 93
[2020-07-10] MEDS: INSULIN (LEVEMIR) 100 UNITS/ML UNITS SQ SCH (09:03)
[2020-07-10] MEDS: FOLIC ACID 1 MG TABLET (FP) PO SCH (09:04)
[2020-07-10] MEDS: MAGNESIUM OXIDE 400 MG TABLET (FP) PO SCH (09:04)
[2020-07-10] MEDS: DOXYCYCLINE HYCLATE 100 MG CAPSULE PO SCH (09:04)
[2020-07-10] MEDS: FUROSEMIDE 40 MG TABLET (FP) PO SCH (09:04)
[2020-07-10] MEDS: PANTOPRAZOLE 20 MG TABLET PO SCH (09:04)
[2020-07-10] MEDS: APIXABAN 5 MG TABLET PO SCH (09:05)
[2020-07-10] MEDS: CARVEDILOL 6.25 MG TABLET (FP) PO SCH (09:05)
[2020-07-10] MEDS: COLLAGENASE CLOSTRIDIUM HIST. 30 GRAMS TUBE TP SCH (09:05)
[2020-07-10] MEDS: BACITRACIN 15 GM TUBE TOPICAL OINTMENT TP SCH (09:05)
[2020-07-10] MEDS: SACUBITRIL/VALSARTAN 24 MG-26 MG TABLET PO SCH (09:09)
== END 2020-07-10 14:34 | DRG 383 ==
LOC: JER 19:45 → JERBED 07-05 02:12 → J7W 07-05 05:31
PROVIDERS: ADMIT Internal Medicine; ATTEND Nurse Practitioner Acute Care
DX: L03.116 Cellulitis of left lower limb (principal); E11.622 Type 2 diabetes mellitus with other skin ulcer; Z68.39 Body mass index [BMI] 39.0-39.9, adult; L97.921 Non-pressure chronic ulcer of unspecified part of left lower leg limited to breakdown of skin; I25.10 Atherosclerotic heart disease of native coronary artery without angina pectoris; I87.8 Other specified disorders of veins; L97.929 Non-pressure chronic ulcer of unspecified part of left lower leg with unspecified severity; E11.69 Type 2 diabetes mellitus with other specified complication; M86.9 Osteomyelitis, unspecified; I50.23 Acute on chronic systolic (congestive) heart failure; I11.0 Hypertensive heart disease with heart failure; L03.115 Cellulitis of right lower limb; E88.09 Other disorders of plasma-protein metabolism, not elsewhere classified; L97.911 Non-pressure chronic ulcer of unspecified part of right lower leg limited to breakdown of skin; I48.91 Unspecified atrial fibrillation; E46 Unspecified protein-calorie malnutrition; E11.621 Type 2 diabetes mellitus with foot ulcer; E66.01 Morbid (severe) obesity due to excess calories
CPT/HCPCS: 36415; 36569; 71045-TC-FY; 80048; 80053; 82550; 82553; 82962; 83735; 83880; 84100; 84484; 85025; 85027; 93005; 93010; 93971-TC; 97116-GP; 97162-GP; 99285-25; C9803; J0131; U0003

== ENCOUNTER 2020-07-30 02:33 | Inpatient (IN) | payer OTHER ==
[2020-07-30 02:50] VITALS: BMI 38.0
[2020-07-30] MEDS ORDERED: diphenhydrAMINE HCL 25 MG CAPSULE (FP) PO ONE (03:31)
[2020-07-30] MEDS ORDERED: ACETAMINOPHEN 325 MG TABLET (FP) PO ONE (03:31)
[2020-07-30] MEDS ORDERED: ACETAMINOPHEN 325 MG TABLET (FP) ONE (03:32)
[2020-07-30 05:12] LABS: BASO % 0.2 % (0-2.0); EOS % 6.3 % (0-4.5); HEMATOCRIT 38.1 % (32.4-45.2); LYMPH % 30.2 % (8-40); MCH 26.4 pg (25.7-33.7); MCHC 31.5 g/dl (32.0-36.0); MEAN CELL VOLUME 83.8 fl (80-96); MEAN PLT VOLUME 8.6 fl (7.5-11.1); MONO % 10.3 % (3.8-10.2); PLATELET COUNT 227 K/MM3 (134-434); RBC 4.55 M/mm3 (3.60-5.2); RDW 25.3 % (11.6-15.6); WHITE BLOOD COUNT 3.5 K/mm3 (4.0-10.0)
[2020-07-30] MEDS ORDERED: oxyCODONE HCL 5 MG TABLET PO ONE (05:17)
[2020-07-30] MEDS ORDERED: oxyCODONE HCL 5 MG TABLET ONE (05:18)
[2020-07-30 05:41] LABS: CALCIUM 9.2 mg/dL (8.5-10.1)
[2020-07-30 05:42] LABS: BLOOD UREA NITROGEN 24.6 mg/dL (7-18)
[2020-07-30 05:45] LABS: CREATININE 1.6 mg/dL (0.55-1.3)
[2020-07-30 05:47] LABS: BILIRUBIN,TOTAL 1.3 mg/dL (0.2-1); TOT PROT 8.6 g/dl (6.4-8.2)
[2020-07-30 06:04] LABS: LACTIC ACID 2.8 mmol/L (0.4-2.0)
[2020-07-30] MEDS ORDERED: AZTREONAM 2 GM in DEXTROSE 5%-WATER 100 ML IVPB ONE (06:32)
[2020-07-30] MEDS ORDERED: DOXYCYCLINE INJECTION 100 MG in DEXTROSE 5%-WATER - 100 ML IVPB ONE (06:32)
[2020-07-30] MEDS ORDERED: DOXYCYCLINE HYCLATE 100 MG VIAL ONE (08:27)
[2020-07-30] MEDS ORDERED: PT OWN MED DRAWER 7, Y5N ONE ×3 (08:27→21:24)
[2020-07-30] MEDS ORDERED: PANTOPRAZOLE SODIUM 40 MG VIAL ONE (09:09)
[2020-07-30] MEDS: PANTOPRAZOLE SODIUM 40 MG VIAL IVPUSH SCH (09:18)
[2020-07-30] MEDS: INSULIN SLIDING SCALE (NOVOLOG) 1 VIAL SQ SCH ×3 (11:49→21:48)
[2020-07-30] MEDS: CARVEDILOL 3.125 MG TABLET (FP) PO SCH ×2 (12:14→21:47)
[2020-07-30] MEDS: oxyCODONE HCL 5 MG TABLET PO PRN ×3 (12:15→23:40)
[2020-07-30] MEDS: APIXABAN 5 MG TABLET PO SCH ×2 (12:15→21:47)
[2020-07-30] MEDS: DIGOXIN 0.125 MG TABLET (FP) PO SCH (12:15)
[2020-07-30] MEDS: ALBUTEROL SO4 HFA INHALER IH SCH ×4 (12:30→23:17)
[2020-07-30 14:23] LABS: LACTIC ACID 2.8 mmol/L (0.4-2.0)
[2020-07-30] MEDS: SACUBITRIL/VALSARTAN 24 MG-26 MG TABLET PO SCH ×2 (14:23→21:47)
[2020-07-30] MEDS ORDERED: AZTREONAM 1 GM VIAL (RESTRICTED TO ID) ONE (18:46)
[2020-07-30] MEDS ORDERED: DEXTROSE 5%-WATER - 50 ML IVPB ONE (18:46)
[2020-07-30] MEDS: AZTREONAM 1 GM in DEXTROSE 5%-WATER - 50 ML IVPB SCH (19:00)
[2020-07-30] MEDS: FUROSEMIDE 40 MG/4 ML INJECTABLE VIAL IVPUSH SCH (19:50)
[2020-07-30 20:02] LABS: URINE AMPHETAMINES NEGATIVE ng/ml (CUTOFF=500)
[2020-07-30 20:03] LABS: METHADONE, UR NEGATIVE ng/ml (CUTOFF=300); PHENCYCLIDINE,URINE NEGATIVE ng/ml (CUTOFF=25); URINE BENZODIAZEPINES NEGATIVE ng/ml (CUTOFF=200)
[2020-07-30 20:27] LABS: EPI CELLS >36 /uL (0-25.1); HYALINE CASTS 7 /uL (0-3.1); URINE APPEARANCE CLOUDY; URINE BACTERIA 63 /uL (0-1359); URINE BILIRUBIN 1+ (NEGATIVE); URINE COLOR DK YELLOW; URINE GLUCOSE (UA) NEGATIVE (NEGATIVE); URINE KETONE NEGATIVE (NEGATIVE); URINE LEUK ESTERASE NEGATIVE (NEGATIVE); URINE NITRITE NEGATIVE (NEGATIVE); URINE PROTEIN 1+ (NEGATIVE); URINE RBC 15 /uL (0-23.9); URINE WBC 50 /uL (0-25.8)
[2020-07-30 20:28] LABS: COCAINE, UR POSITIVE ng/ml (CUTOFF=300); OPIATES, URI POSITIVE ng/ml (CUTOFF=300); URINE BARBITURATES NEGATIVE ng/ml (CUTOFF=200)
[2020-07-30] MEDS: ATORVASTATIN CA 40 MG TABLET (FP) PO SCH (21:47)
[2020-07-30] MEDS: INSULIN (LEVEMIR) 100 UNITS/ML UNITS SQ SCH (21:48)
[2020-07-31] MEDS ORDERED: DEXTROSE 5%-WATER - 50 ML IVPB ONE ×3 (01:03→17:42)
[2020-07-31] MEDS ORDERED: AZTREONAM 1 GM VIAL (RESTRICTED TO ID) ONE ×3 (01:03→17:42)
[2020-07-31] MEDS: ACETAMINOPHEN 325 MG TABLET (FP) PO PRN ×5 (01:04→21:58)
[2020-07-31] MEDS: AZTREONAM 1 GM in DEXTROSE 5%-WATER - 50 ML IVPB SCH ×3 (01:05→18:16)
[2020-07-31] MEDS: oxyCODONE HCL 5 MG TABLET PO PRN ×5 (03:49→21:57)
[2020-07-31] MEDS: ALBUTEROL SO4 HFA INHALER IH SCH ×5 (03:50→23:31)
[2020-07-31] MEDS: INSULIN SLIDING SCALE (NOVOLOG) 1 VIAL SQ SCH ×4 (06:05→21:58)
[2020-07-31 09:22] LABS: BASO % 2.3 % (0-2.0); EOS % 7.3 % (0-4.5); HEMATOCRIT 33.6 % (32.4-45.2); HEMOGLOBIN 10.6 GM/dL (10.7-15.3); LYMPH % 19.1 % (8-40); MCH 26.1 pg (25.7-33.7); MCHC 31.5 g/dl (32.0-36.0); MEAN CELL VOLUME 82.9 fl (80-96); MEAN PLT VOLUME 8.1 fl (7.5-11.1); NEUT % 61.3 % (42.8-82.8); PLATELET COUNT 235 K/MM3 (134-434); RBC 4.06 M/mm3 (3.60-5.2); WHITE BLOOD COUNT 3.7 K/mm3 (4.0-10.0)
[2020-07-31 09:27] LABS: INR 1.78 (0.83-1.09); PROTHROMBIN TIME (PATIENT) 21.2 SEC (9.7-13.0)
[2020-07-31] MEDS ORDERED: PT OWN MED DRAWER 7, Y5N ONE (09:52)
[2020-07-31 10:01] LABS: ALBUMIN 2.8 g/dl (3.4-5.0); CALCIUM 9.4 mg/dL (8.5-10.1)
[2020-07-31 10:02] LABS: BLOOD UREA NITROGEN 24.5 mg/dL (7-18)
[2020-07-31 10:05] LABS: CREATININE 1.3 mg/dL (0.55-1.3); MAGNESIUM 1.6 mg/dL (1.8-2.4); PHOSPHOROUS 3.8 mg/dL (2.5-4.9)
[2020-07-31 10:06] LABS: BILIRUBIN,TOTAL 1.2 mg/dL (0.2-1); TOT PROT 8.1 g/dl (6.4-8.2)
[2020-07-31] MEDS: PANTOPRAZOLE SODIUM 40 MG VIAL IVPUSH SCH (10:09)
[2020-07-31] MEDS: APIXABAN 5 MG TABLET PO SCH ×2 (10:09→21:57)
[2020-07-31] MEDS: FUROSEMIDE 40 MG/4 ML INJECTABLE VIAL IVPUSH SCH (10:09)
[2020-07-31] MEDS: traMADol HCL 50 MG TABLET PO PRN (10:09)
[2020-07-31] MEDS: SACUBITRIL/VALSARTAN 24 MG-26 MG TABLET PO SCH ×2 (10:10→21:57)
[2020-07-31] MEDS: CARVEDILOL 3.125 MG TABLET (FP) PO SCH ×2 (10:10→21:57)
[2020-07-31] MEDS ORDERED: MAGNESIUM 2GM/50ML STERILE WATER IVPB IVPB ONE ×2 (11:15→15:30)
[2020-07-31] MEDS ORDERED: MAGNESIUM OXIDE 400 MG TABLET (FP) PO ONE (16:25)
[2020-07-31] MEDS ORDERED: INSULIN (NOVOLOG) ASPART 100 UNITS/ML 10ML VIAL ONE (21:55)
[2020-07-31] MEDS: ATORVASTATIN CA 40 MG TABLET (FP) PO SCH (21:57)
[2020-07-31] MEDS: INSULIN (LEVEMIR) 100 UNITS/ML UNITS SQ SCH (21:59)
[2020-08-01] MEDS ORDERED: AZTREONAM 1 GM VIAL (RESTRICTED TO ID) ONE ×3 (01:23→18:14)
[2020-08-01] MEDS ORDERED: DEXTROSE 5%-WATER - 50 ML IVPB ONE ×3 (01:23→18:15)
[2020-08-01] MEDS: AZTREONAM 1 GM in DEXTROSE 5%-WATER - 50 ML IVPB SCH ×3 (01:51→18:00)
[2020-08-01] MEDS: oxyCODONE HCL 5 MG TABLET PO PRN ×5 (02:23→22:16)
[2020-08-01] MEDS: ACETAMINOPHEN 325 MG TABLET (FP) PO PRN ×5 (02:24→22:15)
[2020-08-01] MEDS: ALBUTEROL SO4 HFA INHALER IH SCH ×6 (04:43→23:55)
[2020-08-01] MEDS ORDERED: hydrOXYzine PAMOATE 25 MG CAPSULE (FP) PO ONE (05:11)
[2020-08-01] MEDS: traMADol HCL 50 MG TABLET PO PRN ×2 (05:20→15:32)
[2020-08-01] MEDS: INSULIN SLIDING SCALE (NOVOLOG) 1 VIAL SQ SCH ×4 (06:35→21:20)
[2020-08-01 08:15] LABS: HEMATOCRIT 34.5 % (32.4-45.2); HEMOGLOBIN 10.9 GM/dL (10.7-15.3); MCH 26.4 pg (25.7-33.7); MCHC 31.7 g/dl (32.0-36.0); MEAN CELL VOLUME 83.4 fl (80-96); MEAN PLT VOLUME 8.4 fl (7.5-11.1); PLATELET COUNT 246 K/MM3 (134-434); RBC 4.14 M/mm3 (3.60-5.2); RDW 23.7 % (11.6-15.6); WHITE BLOOD COUNT 3.3 K/mm3 (4.0-10.0)
[2020-08-01 08:37] LABS: CALCIUM 9.2 mg/dL (8.5-10.1)
[2020-08-01 08:38] LABS: ALBUMIN 2.8 g/dl (3.4-5.0); BLOOD UREA NITROGEN 26.2 mg/dL (7-18)
[2020-08-01 08:41] LABS: BILIRUBIN,TOTAL 1.3 mg/dL (0.2-1); CREATININE 1.5 mg/dL (0.55-1.3)
[2020-08-01] MEDS: APIXABAN 5 MG TABLET PO SCH ×2 (10:39→21:21)
[2020-08-01] MEDS: PANTOPRAZOLE SODIUM 40 MG VIAL IVPUSH SCH (10:39)
[2020-08-01] MEDS: DIGOXIN 0.125 MG TABLET (FP) PO SCH (10:39)
[2020-08-01] MEDS: FUROSEMIDE 40 MG/4 ML INJECTABLE VIAL IVPUSH SCH (10:39)
[2020-08-01] MEDS: CARVEDILOL 3.125 MG TABLET (FP) PO SCH ×2 (10:40→21:21)
[2020-08-01] MEDS ORDERED: PT OWN MED DRAWER 7, Y5N ONE (10:42)
[2020-08-01] MEDS: SACUBITRIL/VALSARTAN 24 MG-26 MG TABLET PO SCH ×2 (10:43→22:15)
[2020-08-01] MEDS: ATORVASTATIN CA 40 MG TABLET (FP) PO SCH (21:21)
[2020-08-01] MEDS: INSULIN (LEVEMIR) 100 UNITS/ML UNITS SQ SCH (21:21)
[2020-08-02] MEDS ORDERED: DEXTROSE 5%-WATER - 50 ML IVPB ONE ×3 (01:24→18:23)
[2020-08-02] MEDS ORDERED: AZTREONAM 1 GM VIAL (RESTRICTED TO ID) ONE ×3 (01:24→18:23)
[2020-08-02] MEDS: AZTREONAM 1 GM in DEXTROSE 5%-WATER - 50 ML IVPB SCH ×3 (01:31→18:24)
[2020-08-02] MEDS: ALBUTEROL SO4 HFA INHALER IH SCH ×5 (03:26→20:50)
[2020-08-02] MEDS: ACETAMINOPHEN 325 MG TABLET (FP) PO PRN ×4 (05:39→20:59)
[2020-08-02] MEDS: INSULIN SLIDING SCALE (NOVOLOG) 1 VIAL SQ SCH ×4 (06:04→21:03)
[2020-08-02] MEDS ORDERED: PT OWN MED DRAWER 7, Y5N ONE (09:39)
[2020-08-02 09:44] LABS: BASO % 2.1 % (0-2.0); EOS % 11.2 % (0-4.5); HEMATOCRIT 34.9 % (32.4-45.2); LYMPH % 18.7 % (8-40); MCH 26.2 pg (25.7-33.7); MCHC 31.6 g/dl (32.0-36.0); MEAN PLT VOLUME 8.3 fl (7.5-11.1); MONO % 12.3 % (3.8-10.2); NEUT % 55.7 % (42.8-82.8); PLATELET COUNT 259 K/MM3 (134-434); RBC 4.21 M/mm3 (3.60-5.2); RDW 23.8 % (11.6-15.6); WHITE BLOOD COUNT 3.5 K/mm3 (4.0-10.0)
[2020-08-02] MEDS: FUROSEMIDE 40 MG/4 ML INJECTABLE VIAL IVPUSH SCH (09:44)
[2020-08-02] MEDS: PANTOPRAZOLE SODIUM 40 MG VIAL IVPUSH SCH (09:44)
[2020-08-02] MEDS: SACUBITRIL/VALSARTAN 24 MG-26 MG TABLET PO SCH ×2 (09:45→21:02)
[2020-08-02] MEDS: CARVEDILOL 3.125 MG TABLET (FP) PO SCH ×2 (09:45→21:01)
[2020-08-02] MEDS: APIXABAN 5 MG TABLET PO SCH ×2 (09:45→21:01)
[2020-08-02 10:27] LABS: ALBUMIN 2.8 g/dl (3.4-5.0); BLOOD UREA NITROGEN 27.8 mg/dL (7-18); CALCIUM 9.3 mg/dL (8.5-10.1); MAGNESIUM 1.7 mg/dL (1.8-2.4)
[2020-08-02 10:30] LABS: CREATININE 1.4 mg/dL (0.55-1.3)
[2020-08-02 10:32] LABS: BILIRUBIN,TOTAL 1.2 mg/dL (0.2-1); TOT PROT 8.2 g/dl (6.4-8.2)
[2020-08-02 11:20] LABS: ANISOCYTOSIS 1+; MACROCYTOSIS 1+; OVALOCYTE 1+; PLATELET ESTIMATE NORMAL; TARGET CELLS 1+
[2020-08-02] MEDS ORDERED: oxyCODONE HCL 5 MG TABLET PO PRN (16:03)
[2020-08-02] MEDS: ATORVASTATIN CA 40 MG TABLET (FP) PO SCH (21:01)
[2020-08-02] MEDS: INSULIN (LEVEMIR) 100 UNITS/ML UNITS SQ SCH (21:03)
[2020-08-03] MEDS: ALBUTEROL SO4 HFA INHALER IH SCH ×7 (00:02→23:41)
[2020-08-03] MEDS ORDERED: AZTREONAM 1 GM VIAL (RESTRICTED TO ID) ONE ×3 (00:35→19:38)
[2020-08-03] MEDS ORDERED: DEXTROSE 5%-WATER - 50 ML IVPB ONE ×3 (00:35→19:38)
[2020-08-03] MEDS: AZTREONAM 1 GM in DEXTROSE 5%-WATER - 50 ML IVPB SCH ×3 (01:01→19:39)
[2020-08-03] MEDS: ACETAMINOPHEN 325 MG TABLET (FP) PO PRN ×5 (02:19→19:46)
[2020-08-03] MEDS: INSULIN SLIDING SCALE (NOVOLOG) 1 VIAL SQ SCH ×4 (06:41→21:41)
[2020-08-03] MEDS ORDERED: PT OWN MED DRAWER 7, Y5N ONE ×2 (09:49→21:36)
[2020-08-03] MEDS: DIGOXIN 0.125 MG TABLET (FP) PO SCH (10:02)
[2020-08-03] MEDS: SACUBITRIL/VALSARTAN 24 MG-26 MG TABLET PO SCH ×2 (10:02→21:39)
[2020-08-03] MEDS: PANTOPRAZOLE SODIUM 40 MG VIAL IVPUSH SCH (10:02)
[2020-08-03] MEDS: FUROSEMIDE 40 MG/4 ML INJECTABLE VIAL IVPUSH SCH (10:02)
[2020-08-03] MEDS: APIXABAN 5 MG TABLET PO SCH ×2 (10:02→21:39)
[2020-08-03] MEDS: CARVEDILOL 3.125 MG TABLET (FP) PO SCH ×2 (10:03→21:39)
[2020-08-03] MEDS ORDERED: SPIRONOLACTONE 25 MG TABLET PO ONE (10:12)
[2020-08-03 11:02] LABS: EOS % 6.4 % (0-4.5); HEMATOCRIT 35.3 % (32.4-45.2); HEMOGLOBIN 10.9 GM/dL (10.7-15.3); LYMPH % 14.5 % (8-40); MCH 26.2 pg (25.7-33.7); MCHC 30.9 g/dl (32.0-36.0); MEAN CELL VOLUME 84.7 fl (80-96); MEAN PLT VOLUME 8.3 fl (7.5-11.1); MONO % 16.5 % (3.8-10.2); NEUT % 60.6 % (42.8-82.8); PLATELET COUNT 209 K/MM3 (134-434); RBC 4.17 M/mm3 (3.60-5.2); RDW 23.2 % (11.6-15.6); WHITE BLOOD COUNT 4.5 K/mm3 (4.0-10.0)
[2020-08-03 11:22] LABS: ALBUMIN 2.8 g/dl (3.4-5.0)
[2020-08-03 11:23] LABS: BLOOD UREA NITROGEN 27.4 mg/dL (7-18)
[2020-08-03 11:24] LABS: CALCIUM 9.5 mg/dL (8.5-10.1); MAGNESIUM 1.7 mg/dL (1.8-2.4)
[2020-08-03 11:26] LABS: CREATININE 1.2 mg/dL (0.55-1.3)
[2020-08-03 11:27] LABS: BILIRUBIN,TOTAL 1.2 mg/dL (0.2-1); TOT PROT 8.3 g/dl (6.4-8.2)
[2020-08-03] MEDS: ATORVASTATIN CA 40 MG TABLET (FP) PO SCH (21:39)
[2020-08-03] MEDS: INSULIN (LEVEMIR) 100 UNITS/ML UNITS SQ SCH (21:42)
[2020-08-04] MEDS: ACETAMINOPHEN 325 MG TABLET (FP) PO PRN ×4 (00:06→12:46)
[2020-08-04] MEDS ORDERED: DEXTROSE 5%-WATER - 50 ML IVPB ONE ×2 (02:04→10:08)
[2020-08-04] MEDS ORDERED: AZTREONAM 1 GM VIAL (RESTRICTED TO ID) ONE ×2 (02:04→10:08)
[2020-08-04] MEDS: AZTREONAM 1 GM in DEXTROSE 5%-WATER - 50 ML IVPB SCH ×2 (03:01→11:35)
[2020-08-04] MEDS: ALBUTEROL SO4 HFA INHALER IH SCH ×3 (04:47→11:27)
[2020-08-04] MEDS: INSULIN SLIDING SCALE (NOVOLOG) 1 VIAL SQ SCH ×2 (06:57→12:29)
[2020-08-04 09:29] LABS: BASO % 1.2 % (0-2.0); EOS % 7.6 % (0-4.5); HEMATOCRIT 34.1 % (32.4-45.2); HEMOGLOBIN 10.8 GM/dL (10.7-15.3); LYMPH % 23.1 % (8-40); MCH 26.3 pg (25.7-33.7); MCHC 31.5 g/dl (32.0-36.0); MEAN CELL VOLUME 83.5 fl (80-96); MEAN PLT VOLUME 8.7 fl (7.5-11.1); MONO % 14.2 % (3.8-10.2); NEUT % 53.9 % (42.8-82.8); PLATELET COUNT 213 K/MM3 (134-434); RBC 4.09 M/mm3 (3.60-5.2); RDW 23.4 % (11.6-15.6); WHITE BLOOD COUNT 3.1 K/mm3 (4.0-10.0)
[2020-08-04 09:58] LABS: CALCIUM 9.4 mg/dL (8.5-10.1)
[2020-08-04 09:59] LABS: ALBUMIN 2.7 g/dl (3.4-5.0); BLOOD UREA NITROGEN 26.8 mg/dL (7-18); MAGNESIUM 1.6 mg/dL (1.8-2.4)
[2020-08-04 10:02] LABS: CREATININE 1.1 mg/dL (0.55-1.3)
[2020-08-04 10:04] LABS: BILIRUBIN,TOTAL 1.6 mg/dL (0.2-1); TOT PROT 7.9 g/dl (6.4-8.2)
[2020-08-04] MEDS: CARVEDILOL 3.125 MG TABLET (FP) PO SCH (10:14)
[2020-08-04] MEDS: APIXABAN 5 MG TABLET PO SCH (10:14)
[2020-08-04] MEDS: SACUBITRIL/VALSARTAN 24 MG-26 MG TABLET PO SCH (10:15)
[2020-08-04] MEDS: FUROSEMIDE 40 MG/4 ML INJECTABLE VIAL IVPUSH SCH (11:19)
[2020-08-04] MEDS: PANTOPRAZOLE SODIUM 40 MG VIAL IVPUSH SCH (11:25)
[2020-08-04 13:05] VITALS: BP 116/68; PULSE 72; TEMP 97.9
[2020-08-04] MEDS ORDERED: ACETAMINOPHEN 1000 MG/100 ML VIAL (NON FORMULARY) IVPB ONE (13:16)
[2020-08-04] MEDS ORDERED: MAGNESIUM SULF 50% (8.12 MEQ/2 ML-1 GM VIAL) IVPB ONE (13:35)
[2020-08-04] MEDS ORDERED: FUROSEMIDE 40 MG/4 ML INJECTABLE VIAL IVPUSH ONE (14:32)
== END 2020-08-04 15:43 | disposition left against medical advice (07) | DRG 383 ==
LOC: JER 02:33 → JERBED 06:36 → J5S 10:13
PROVIDERS: ADMIT Internal Medicine
DX: L03.115 Cellulitis of right lower limb (principal); L03.116 Cellulitis of left lower limb; F14.90 Cocaine use, unspecified, uncomplicated; F17.210 Nicotine dependence, cigarettes, uncomplicated; I83.008 Varicose veins of unspecified lower extremity with ulcer other part of lower leg; E66.01 Morbid (severe) obesity due to excess calories; L97.909 Non-pressure chronic ulcer of unspecified part of unspecified lower leg with unspecified severity; I48.91 Unspecified atrial fibrillation; E11.621 Type 2 diabetes mellitus with foot ulcer; N17.9 Acute kidney failure, unspecified; I50.23 Acute on chronic systolic (congestive) heart failure
CPT/HCPCS: 36415; 71045-TC-FY; 80053; 80162; 80307; 81003; 82272; 82436; 82570; 82962; 83605; 83735; 84100; 84133; 84300; 85025; 85027; 85610; 87040; 87070; 87086; 87186; 87205; 93005; 93010; 93306-TC; 99285-25; C9803; J0131; U0003; U0005

== ENCOUNTER 2020-08-08 01:33 | Emergency (ER) | payer OTHER ==
[2020-08-08 03:05] VITALS: BMI 30.4
[2020-08-08 03:49] VITALS: BP 129/92; PULSE 84; TEMP 98.1
== END 2020-08-08 04:25 | disposition home or self-care (01) ==
LOC: JER 01:33
DX: F50.89 Other specified eating disorder (principal)
CPT/HCPCS: 82962; 99283-25